=== PATIENT | male | born 1990 | race Caucasian/White ===

== ENCOUNTER 2023-05-14 09:14 | Emergency (ER) | payer OTHER, BC, SELFPAY ==
[2023-05-14 09:18] VITALS: BP 117/72; PULSE 116; RESP 18; TEMP 37.1; O2SAT 99; BMI 25.8
--- NOTE | 2023-05-14 09:27 | US_ITS ---
The [address] [address] Patient Name: WILLOW WILKES MRN: [id number] date: 1990 Sex: M Assigned Patient Location: ED.MAIN Current Patient Location: ER Accession/Order Number: [id number] Exam Date: 05/14/2023 09:40 Report Date: 05/14/2023 10:14 At the request of: GABBY VARMA Procedure: US venous doppler LE RT EXAM: US venous doppler LE RT HISTORY: swelling right lower extremity swelling COMPARISON: None. TECHNIQUE: Doppler color flow as well as spectral analysis were performed of the right lower extremity. FINDINGS: There is adequate flow, compressibility, or augmentation within the visualized deep venous structures of the right lower extremity. No evidence of deep venous thrombus. US/US venous doppler LE RT IMPRESSION: 1. No deep venous thrombus. Electronically authenticated by: YANETH RESTREPO Date: 05/14/2023 10:14
--- NOTE | 2023-05-14 09:28 | ED_ITS ---
HPI - General Adult General Chief complaint: Extremity Injury, Lower Stated complaint: RT LEG SWELLING Time Seen by Provider: 05/14/23 09:27 Source: patient Mode of arrival: walk-in Limitations: no limitations History of Present Illness HPI narrative: Patient is a 32-year-old male who is presenting to the Emergency Room with chief complaint of right leg pain, swelling and chief concern is blood clot. This is a Worker's Comp. case. Patient had injury last Wednesday. Patient was at work, a heavy metal rack has fallen down onto his right leg. Patient has Chip seen Worker's Comp. physician in [place]. Patient was having pain and swelling to the right leg, concerned about blood clots. Patient says that he called the Worker's Comp. office, and the secretary book keeper that he spoke to told him to come to the Emergency Room for evaluation. Patient has no chest breath. Patient has an abrasion to the right anterior sweet and right lateral sweet/lower leg. Patient has no history of deep vein thrombosis. Patient has no recent traveling. No other acute complaints. . All systems are negative except as noted/marked. All systems reviewed and otherwise negative. . Nurses note and vital signs reviewed and patient is not hypoxic. General: The patient appears well and in no apparent distress. Patient is resting comfortably on cart. Patient is not toxic, lethargic, or listless Skin: Warm, dry, no pallor noted. There is no rash noted. No petechiae, purpura. Head: Normocephalic, atraumatic Eye: Normal conjunctiva, no drainage, EOMI. PERRL Ears, Nose, Mouth, and Throat: oral mucosa is moist. Nares patent. . Cardiovascular: Regular Rate and Rhythm, no murmur, gallop, rub Respiratory: Patient is in no distress, no accessory muscle use, lungs are clear to auscultation, no wheezing, rales or rhonchi Musculoskeletal: Patient has full range of motion of all of the extremities Sent to the right leg. Patient has pain to palpation to the posterior right thigh, none to the right popliteal fossa, positive pain to the right posterior calf. Patient has an Erwin wrap to the right calf, he is wearing a postop shoe. Patient has no new injury, he does have pain with range of motion to his right ankle/foot that is ongoing since last Wednesday, no new problems. No deformity, no ecchymosis, mild to moderate tenderness to palpation to bilateral malleoli and the dorsal aspect of the right foot. No signs of compartment syndrome. Otherwise no motor, sensory, or focal neurological deficits Neurological: A&O x3, normal speech Psychiatric: Cooperative Related Data Home Medications Medication Instructions Recorded Confirmed albuterol sulfate 2.5 mg/3 mL mg 05/14/23 (0.083 %) solution for nebulization ibuprofen 800 mg tablet mg 05/14/23 Allergies Allergy/AdvReac Type Severity Reaction Status Date / Time No Known Drug Allergies Allergy Verified 05/14/23 09:18 [facility] Social History Smoking status: Current some day smoker Exam Constitutional Vital Signs, click to edit/add: Last Vital Signs Temp 98.7 F 05/14/23 09:18 Pulse 101 H 05/14/23 10:16 Resp 16 05/14/23 10:16 BP 107/62 05/14/23 10:16 Pulse Ox 99 05/14/23 10:16 Course Vital Signs Vital signs: Vital Signs Temperature 98.7 F 05/14/23 09:18 Pulse Rate 116 H 05/14/23 09:18 Respiratory Rate 18 05/14/23 09:18 Blood Pressure 117/72 05/14/23 09:18 Pulse Oximetry 99 05/14/23 09:18 Temperature 98.7 F 05/14/23 09:18 Pulse Rate 101 H 05/14/23 10:16 Respiratory Rate 16 05/14/23 10:16 Blood Pressure 107/62 05/14/23 10:16 Pulse Oximetry 99 05/14/23 10:16 Medical Decision Making [facility] [place] Narrative Medical decision making narrative: Patient was told to come to the Emergency Room for a ultrasound of his right leg from the Worker's Comp. office. Patient had a ultrasound of the right lower extremity showed no deep vein thrombosis. Patient will continue follow-up with his Worker's Comp. physician. Patient was told to ice, elevate, use Tylenol Motrin as needed for pain. Patient no acute complaints. Patient was also told to use antibiotic ointment to the abrasions to the right leg. Discharge Plan Discharge Chief Complaint: Extremity Injury, Lower Clinical Impression: Localized swelling of right lower leg, Pain in right leg Patient Disposition: Home, Self-Care Condition: Fair Prescriptions / Home Meds: No Action albuterol sulfate 2.5 mg /3 mL (0.083 %) solution for nebulization ibuprofen 800 mg tablet Instructions: Swollen Joint (ED), Edema (ED), Leg Pain (ED) Additional Instructions: Use ice, elevation to the right leg. Use topical antibiotic ointment tear abrasions 3-4 times a day to help promote healing and prevent infection. Follow- up with your Worker's Comp physician. Stand Alone Forms: Portal Instructions Referrals: PLACIDO SMITH [Primary Care Provider] - 1 week
[2023-05-14 10:16] VITALS: BP 107/62; PULSE 101; RESP 16; O2SAT 99
== END 2023-05-14 10:59 | disposition home or self-care (01) ==
PROVIDERS: Emergency Provider Emergency Medicine; PCP Family Medicine
DX: M79.89 Other specified soft tissue disorders (principal); M79.604 Pain in right leg; F17.210 Nicotine dependence, cigarettes, uncomplicated
CPT/HCPCS: 93971; 99284

== ENCOUNTER 2023-08-30 20:40 | Emergency (ER) | payer BC, SELFPAY ==
[2023-08-30 20:57] VITALS: BP 148/90; PULSE 101; RESP 16; TEMP 36.6; O2SAT 100; BMI 30.3
[2023-08-30 21:00] VITALS: O2SAT 97
--- NOTE | 2023-08-30 21:16 | ED.UPPEXIN1 ---
HPI - Extremity Injury (Upper) General Chief Complaint: Extremity Injury, Upper Stated Complaint: Upper Extremity Pain Time Seen by Provider: 08/30/23 20:41 Source: patient Mode of arrival: walk-in Limitations: no limitations History of Present Illness HPI narrative: Patient is a 33-year-old male who presents to the emergency department for the evaluation of pain in the right shoulder. This has been an ongoing issue, he has had outpatient x-rays with his PCP as well as x-rays at the [place] emergency department for the same. He denies any new mechanism of injury or trauma. Pain radiates from the right trapezius muscle into the right shoulder joint and into the right arm. No paresthesias. Pain is worse with movement of the right arm. He has not been using the sling. He states he is taking ibuprofen and Tylenol for pain, his pharmacy records show that he received a prescription for prednisone which was filled today as well as a prescription for Percocet prescribed on 08/25/23 to last three days. Related Data Home Medications Medication Instructions Recorded Confirmed albuterol sulfate 2.5 mg/3 mL mg 05/14/23 (0.083 %) solution for nebulization ibuprofen 800 mg tablet mg 05/14/23 Previous Rx's Medication Instructions Recorded ketorolac 10 mg tablet 10 mg PO TID PRN pain #10 tabs 08/30/23 methocarbamol 750 mg tablet 750 mg PO TID PRN pain #20 tabs 08/30/23 Allergies Allergy/AdvReac Type Severity Reaction Status Date / Time No Known Drug Allergies Allergy Verified 08/30/23 21:02 Review of Systems ROS Constitutional Denies: fever or chills Cardiovascular Denies: chest pain Respiratory Denies: shortness of breath Gastrointestinal Denies: nausea or vomiting Musculoskeletal Reports: extremity pain, joint pain and limited range of motion; Denies: back pain or neck pain Integumentary/Breast Denies: rash Neurological Denies: headache PFSH PFSH Social History Smoking status: Current every day smoker Exam Narrative Exam Narrative: Gen.: Awake, alert, in no distress Head: Normocephalic, atraumatic ENT: Moist mucous membranes Respiratory: No respiratory distress Extremities: Normal biceps tendon strength to flexion and extension in the right arm, 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 Diffuse tenderness of the right trapezius muscle and right glenohumeral joint with no obvious deformity or sulcus sign Psych: Normal mood and affect Neuro: No focal neuro deficit Skin: Warm, dry, intact Constitutional Vital Signs, click to edit/add: Last Vital Signs Temp 98 F 08/30/23 20:57 Pulse 101 H 08/30/23 20:57 Resp 16 08/30/23 20:57 BP 148/90 H 08/30/23 20:57 Pulse Ox 100 08/30/23 20:57 O2 Del Method Room Air 08/30/23 20:57 Course Vital Signs Vital signs: Vital Signs Temperature 98 F 08/30/23 20:57 Pulse Rate 101 H 08/30/23 20:57 Respiratory Rate 16 08/30/23 20:57 Blood Pressure 148/90 H 08/30/23 20:57 Pulse Oximetry 100 08/30/23 20:57 Oxygen Delivery Method Room Air 08/30/23 20:57 Temperature 98 F 08/30/23 20:57 Pulse Rate 101 H 08/30/23 20:57 Respiratory Rate 16 08/30/23 20:57 Blood Pressure 148/90 H 08/30/23 20:57 Pulse Oximetry 100 08/30/23 20:57 Oxygen Delivery Method Room Air 08/30/23 20:57 MDM - Extremity Injury (Upper) MDM Narrative Medical decision making narrative: No indication for repeat x-rays as the patient has had two previous sets of x-rays of the right shoulder, no new mechanism of injury or trauma. He has an appointment in ten days with orthopedics. His pharmacy records show that he filled a prescription of Percocet from the [place] emergency department on 08/25/23, he filled a prescription of prednisone today. Pain is consistent with muscular pain in the right shoulder, he'll be started on Toradol and Robaxin. He is treated for pain in the Emergency Room with Solu-Medrol, Norflex, [place]. No indication to continue refill narcotics from the emergency department, he can see the specialist in ten days for further evaluation and treatment. Neurovascularly intact pre-and post-sling application. Rest, ice, gentle stretching. Return to the Emergency Room if symptoms change or worsen. Medical Records Attestation: I reviewed the patient's medical records. Discharge Plan Discharge Chief Complaint: Extremity Injury, Upper Clinical Impression: Pain in right shoulder Patient Disposition: Home, Self-Care Time of Disposition Decision: 21:07 Condition: Good Prescriptions / Home Meds: New ketorolac 10 mg tablet 10 mg PO TID PRN (Reason: pain) Qty: 10 0RF Rx Instructions: DO NOT TAKE WITH IBUPROFEN methocarbamol 750 mg tablet 750 mg PO TID PRN (Reason: pain) Qty: 20 0RF No Action albuterol sulfate 2.5 mg /3 mL (0.083 %) solution for nebulization ibuprofen 800 mg tablet Instructions: Shoulder Pain (ED) Stand Alone Forms: Portal Instructions Referrals: PLACIDO SMITH [Primary Care Provider] - 1 week Jose Antonio Gilliam DO [Physician] - 1 week
[2023-08-30] MEDS: ORPHENADRINE 60 MG/ 2 ML VIAL IM (21:26)
[2023-08-30] MEDS: METHYLPREDNISOLONE SOD SUCC PF 125 MG/2 ML VIAL IM (21:26)
[2023-08-30] MEDS: HYDROCODONE/ACET 5-325 MG TABLET 1 TAB PO (21:26)
== END 2023-08-30 21:40 | disposition home or self-care (01) ==
PROVIDERS: Emergency Provider Emergency Medicine; PCP Family Medicine
DX: M25.511 Pain in right shoulder (principal); F17.210 Nicotine dependence, cigarettes, uncomplicated; Z79.899 Other long term (current) drug therapy
CPT/HCPCS: 96372; 99284; J2930

== ENCOUNTER 2023-10-02 17:55 | Emergency (ER) | payer BC, SELFPAY ==
[2023-10-02 17:59] VITALS: BP 132/84; PULSE 94; RESP 18; TEMP 36.9; O2SAT 99; BMI 32.5
--- OUTSIDE RECORDS SUMMARY | 2023-10-02 18:02 | XMS_ITS | CCD ---
Author Name Unknown Address [address] [place] [address] Organization [facility] Care Team Providers Care Master Cook Name Role Phone Myra [phone] UNKNOWN Unavailable Unavailable Patten, Jose M R. Unavailable Unavailable Lety, Mohamad Unavailable Unavailable Ojukwu, Mbanefo Unavailable Unavailable Patten, Jose M R. Unavailable Unavailable Patten, Jose M R. Unavailable Unavailable Patten, Jose M R. Unavailable Unavailable Patten, Jose M R. Unavailable Unavailable Patten, Jose M R. Unavailable Unavailable Patten, Jose M R. Unavailable Unavailable Patten, Jose M R. Unavailable Unavailable Patten, Jose M R. Unavailable Unavailable Patten, Jose M R. Unavailable Unavailable Patten, Jose M R. Unavailable Unavailable Blank, Julian S Unavailable Unavailable Blank, Julian S Unavailable Unavailable Blank, Julian S Unavailable Unavailable Blank, Julian S Unavailable Unavailable Blank, Julian S Unavailable Unavailable Blank, Julian S Unavailable Unavailable Blank, Julian S Unavailable Unavailable Blank, Julian S Unavailable Unavailable Blank, Julian S Unavailable Unavailable Blank, Julian S Unavailable Unavailable Hatteras, Sammie A. Unavailable Unavailable Char, Sammie A. Unavailable Unavailable Shipman, Octavio Unavailable Unavailable Hatteras, Sammie A. Unavailable Unavailable Hatteras, Sammie A. Unavailable Unavailable Shipman, Octavio Unavailable Unavailable Provider, None Unavailable Unavailable Stalter, Vargas Unavailable Unavailable Stalter, Vargas Unavailable Unavailable Stalter, Vargas Unavailable Unavailable Stalter, Vargas Unavailable Unavailable Provider, None Unavailable Unavailable Provider, None Unavailable Unavailable [place], Neeraj R. Unavailable Unavailable Mei, Neeraj R. Unavailable Unavailable Provider, None Unavailable Unavailable Mei, Neeraj R. Unavailable Unavailable Mei, Neeraj R. Unavailable Unavailable EBRAHEIM, OVI Unavailable Unavailable EBRAHEIM, OVI Unavailable Unavailable SELF, REFERRED Unavailable Unavailable SELF, REFERRED Unavailable Unavailable NM Unavailable Unavailable EBRAHEIM, OVI Unavailable Unavailable NM Unavailable Unavailable FIDENCIO RAY Unavailable Unavailable RADHA, LITTLE Admitting Unavailable RADHA, LITTLE Attending Unavailable [facility] [place] [facility] Unavailable LITTLE GARCIA Consulting Unavailable JOANNA HEBERT Consulting Unavailkevin NUNN, LISA Consulting Unavailable JUSTIN ALEMAN Consulting Unavailable [place] [place] [facility] Unavailable JENNIFER ISAAC Admitting Unavailable PONCHO, JENNIFER Coffey Attending Unavailable JENNIFER ISAAC Consulting Unavailable KELLY THOMAS Consulting Unavailable DEFRANCE, PLACIDO Admitting Unavailable DEFRANCE, PLACIDO Attending Unavailable [place] [place] Primary Care Unavailable [place], PLACIDO Consulting Unavailable Problems Active Problems Problem Classification Problem Date Documented Da te Episodic/Chronic Abdominal pain (4 sources) Upper abdominal pain, unspecified; Translations: [UPPER ABDOMINAL PAIN, UNSPECIFIED] Onset: 03-24-2020 Episodic Alcohol-related disorders (1 source) Alcohol abuse, uncomplicated; Translations: [ALCOHOL ABUSE UNCOMPLICATED] Onset: 04-09-2020 Chronic Anxiety disorders (1 source) Anxiety disorder, unspecified; Translations: [ANXIETY DISORDER UNSPECIFIED] Onset: 04-09-2020 Chronic Asthma (1 source) Unspecified asthma, uncomplicated; Translations: [UNSPECIFIED ASTHMA, UNCOMPLICATED] Onset: 04-09-2017 Chronic Epilepsy; convulsions (1 source) Other seizures; Translations: [OTHER SEIZURES] Onset: 04-09-2020 Chronic Essential hypertension (1 source) Essential (primary) hypertension; Translations: [ESSENTIAL (PRIMARY) HYPERTENSION] Onset: 04-09-2017 Chronic External cause codes: Fall (1 source) Fall on same level from slipping, tripping and stumbling with subsequent striking against other object, initial encounter; Translations: [FALL SAME LVL SLIP STRK OTH OBJ INT] Onset: 04-09-2020 Immunizations and screening for infectious disease (4 sources) Encounter for screening for other viral diseases; Translations: [ENC SCREENING FOR OTH VIRAL DZ] Onset: 05-27-2020 Episodic Nausea and vomiting (1 source) Nausea; Translations: [NAUSEA] Onset: 03-26-2020 Episodic Nonspecific chest pain (3 sources) Chest pain, unspecified; Translations: [CHEST PAIN UNSPECIFIED] Onset: 04-05-2020 Episodic Substance-related disorders (2 sources) Nicotine dependence, cigarettes, uncomplicated; Translations: [NICOTINE DEPENDENCE, CIGARETTES, UNCOMPLICATED] Onset: 04-09-2017 Chronic Superficial injury; contusion (1 source) Contusion of left front wall of thorax, initial encounter; Translations: [CONTUS LT FRONT WALL THORAX INITIAL] Onset: 04-09-2020 Episodic Unclassified (2 sources) Unknown / UNK(Unknown) Onset: 04-09-2017 Past or Other Problems Problem Classification Problem Date Documented Da te Episodic/Chronic Open wounds of extremities (4 sources) Unspecified open wound of left hand, initial encounter; Translations: [UNSPECIFIED OPEN WOUND OF LEFT HAND, INITIAL ENCOUNTER] Onset: 04-09-2017 Episodic Results Test Name Value Interpretation Reference Range Facility COVID-19 PCRon 05-28-2020 SARS-CoV-2, TARIQ Not Detected Normal Not Detected [facility] Comment on above: Result Comment: This test was developed and its performance characteristics determined by [facility]. This test has not been FDA cleared or approved. This test has been authorized by FDA under an Emergency Use Authorization (EUA). This test is only authorized for the duration of time the declaration that circumstances exist justifying the authorization of the emergency use of in vitro diagnostic tests for detection of SARS-CoV-2 virus and/or diagnosis of COVID-19 infection under section 564(b)(1) of the Act, 21 U.S.C. 360bbb-3(b)(1), unless the authorization is terminated or revoked sooner. When diagnostic testing is negative, the possibility of a false negative result should be considered in the context of a patient's recent exposures and the presence of clinical signs and symptoms consistent with COVID-19. An individual without symptoms of COVID-19 and who is not shedding SARS-CoV-2 virus would expect to have a negative (not detected) result in this assay. Performed By: #### L ACT #### [facility] [address] [id number] Mary Aly AMMONIAon 04-05-2020 Ammonia (P) [Mass/Vol] 26 umol/L Normal 10-30 [facility] Comment on above: Performed By: #### A MM #### [facility] [address] [id number] Mary Aly CARDIAC JENNIFER ADMITon 020 CK [Catalytic activity/Vol] 229 U/L Critically high 55-170 [facility] Comment on above: Result Comment: test repeated critical value verified Performed By: #### L ACT #### [facility] [address] [place] [address] Mary Sheeba CK.MB [Mass/Vol] 1.95 ng/mL Normal <=2.37 [facility] Comment on above: Performed By: #### L ACT #### [facility] [address] [place] [address] Mary Sheeba INR Coag (Bld) [Relative time] SEE BELOW Normal [facility] Comment on above: Result Comment: <0.0 34 ng/ml NEGATIVE 0.034-0.119 INDETERMINATE 0.120 AMI CUT OFF Performed By: #### L ACT #### [facility] [address] [place] [address] Mary Sheeba PAIGE 88.0 ng/mL Normal <=121.0 [facility] Comment on above: Performed By: #### L ACT #### [facility] [address] [place] [address] Mary Sheeba TROP <0.012 Normal <=0.034 [facility] Comment on above: Performed By: #### L ACT #### [facility] [address] [place] [address] Mary Sheeba CBC AUTO DIFFon 04-05-2020 Basophils (Bld) [#/Vol] 0.1 103/ul Normal 0.0-0.1 [facility] Comment on above: Performed By: #### C BC #### [facility] [address] [place] [address] Mary Sheeba Basophils/100 WBC (Bld) 1.1 % Normal 0.2-2.0 [facility] Comment on above: Performed By: #### C BC #### [facility] [address] [place] [address] Mary Sheeba Eosinophils (Bld) [#/Vol] 0.8 103/ul Critically high 0.0-0.7 [facility] Comment on above: Performed By: #### C BC #### [facility] [address] [place] [address] Mary Sheeba Eosinophils/100 WBC (Bld) 6.1 % Normal 0.9-7.0 [facility] Comment on above: Performed By: #### C BC #### [facility] [address] [place] [address] Maryjong Aly Erythrocyte distribution width (RBC) [Ratio] 12.6 % Normal 11.0-15.0 [facility] Comment on above: Performed By: #### C BC #### [facility] [address] [place] [address] Mary Sheeba Hematocrit (Bld) [Volume fraction] 45.1 % Normal 42.0-54.0 [facility] Comment on above: Performed By: #### C BC #### [facility] [address] [place] [address] Mary Sheeba Hemoglobin (Bld) [Mass/Vol] 15.6 g/dL Normal 14.0-18.0 [facility] Comment on above: Performed By: #### C BC #### [facility] [address] [place] [address] Mary Sheeba IG # 0.07 10e3/ul Critically high 0.00-0.03 [facility] Comment on above: Performed By: #### C BC #### [facility] [address] [place] [address] Mary Sheeba IG % 0.6 % Critically high 0.0-0.5 [facility] Comment on above: Performed By: #### C BC #### [facility] [address] [place] [address] Mary Sheeba Lymphocytes (Bld) [#/Vol] 4.7 103/ul Critically high 1.2-3.8 [facility] Comment on above: Performed By: #### C BC #### [facility] [address] [place] [address] Mary Sheeba Lymphocytes/100 WBC (Bld) 38.2 % Normal 20.5-60.0 [facility] Comment on above: Performed By: #### C BC #### [facility] [address] [place] [address] Mary Varelaen MANUAL DIFF REQ NO Normal [facility] Comment on above: Performed By: #### C BC #### [facility] [address] [place], [place] [id number] Mary Aly MCH (RBC) [Entitic mass] 31.8 pg Normal 25.9-34.0 [facility] Comment on above: Performed By: #### C BC #### [facility] [address] [place], [place] [id number] Mary Aly MCHC (RBC) [Mass/Vol] 34.6 g/dL Normal 29.9-35.2 [facility] Comment on above: Performed By: #### C BC #### [facility] [address] [place] [address] Mary Aly MCV (RBC) [Entitic vol] 92.0 fL Normal 80.0-94.0 [facility] Comment on above: Performed By: #### C BC #### [facility] [address] [place] [address] Mary Sheeba Monocytes (Bld) [#/Vol] 0.8 103/ul Normal 0.3-0.8 [facility] Comment on above: Performed By: #### C BC #### [facility] [address] [place], [place] [id number] Mary Aly Monocytes/100 WBC (Bld) 6.8 % Normal 1.7-12.0 [facility] Comment on above: Performed By: #### C BC #### [facility] [address] [place], [place] [id number] Mary Sheeba Neutrophils (Bld) [#/Vol] 5.8 103/ul Normal 1.4-6.5 [facility] Comment on above: Performed By: #### C BC #### [facility] [address] [place] [address] Mary Sheeba Neutrophils/100 WBC (Bld) 47.2 % Normal 43.0-75.0 [facility] Comment on above: Performed By: #### C BC #### [facility] [address] [place], [place] [id number] Mary Sheeba Platelet mean volume (Bld) [Entitic vol] 9.9 fL Normal 9.5-13.5 [facility] Comment on above: Performed By: #### C BC #### [facility] [address] [place] [address] Mary Aly Platelets (Bld) [#/Vol] 293 103/ul Normal 150-450 [facility] Comment on above: Performed By: #### C BC #### [facility] [address] [place] [address] Mary Aly RBC (Bld) [#/Vol] 4.90 106/ul Normal 4.70-6.10 [facility] Comment on above: Performed By: #### C BC #### [facility] [address] [place] [address] Mary Aly WBC (Bld) [#/Vol] 12.3 103/ul Critically high 4.0-11.0 [facility] Comment on above: Performed By: #### C BC #### [facility] [address] [place] [address] Mary Aly D-DIMERon 04-05-2020 D-DIMER COMMENTS SEE BELOW Normal [facility] Comment on above: Result Comment: Incr eases in D-Dimer concentration observed with thromboembolic events can be variable due to localization, size, and age of the thrombus. Therefore, a thromboembolic event cannot be diagnosed with certainty on the basis of the reference range. D-Dimers may also be elevated for a variety of disorders including: advanced age, , coronary disease, cancer, liver disease, infection, inflammation, hematoma, DIC, trauma, post-surgery, diabetes, thrombolytic or anticoagulant therapy, stress, and generalizd hospitalization. Performed By: #### L ACT #### [facility] [address] [place], [place] [id number] Mary Aly Fibrin D-dimer FEU IA (Bld) [Mass/Vol] 0.29 ug/mL Normal 0.19-0.50 [facility] Comment on above: Performed By: #### L ACT #### [facility] [address] [place], [place] [id number] Mary Sheeba DRUG SCREEN RAPID (URINE)on 04-05-2020 AMP Negative Normal NEGATIVE [facility] Comment on above: Performed By: #### L ACT #### [facility] [address] [place] [address] Mary Sheeba BAR Negative Normal NEGATIVE [facility] Comment on above: Performed By: #### L ACT #### [facility] [address] [place] [address] Mary Sheeba BUP Negative Normal NEGATIVE [facility] Comment on above: Performed By: #### L ACT #### [facility] [address] [place] [address] [facility] B[facility] Negative Normal NEGATIVE [facility] Comment on above: Performed By: #### L ACT #### [facility] [address] [place] [address] [facility] Negative Normal NEGATIVE [facility] Comment on above: Performed By: #### L ACT #### [facility] [address] [place] [address] CUT-OFFS SEE BELOW Normal [facility] Comment on above: Result Comment: AMP (Amphetamine): 500ng/mL, BAR (Barbituates): 200 ng/mL, BZO (Benzodiazepines): 150 ng/mL, BUP (Buprenorphine): 10 ng/mL, ADAMARIS (Cocaine): 150 ng/mL, mAMP (Methamphetamine): 500 ng/mL, MTD (Methadone): 200 ng/mL, OPI (Opiates): 100 ng/mL or 2000 ng/mL, OXY (Oxycodone): 100 ng/mL, PCP (Phencyclidine): 25 ng/mL, PPX (Propoxyphene): 300 ng/mL, THC (Cannabinoids): 50 ng/mL, TCA (Trycyclic Antidepressants): 300 ng/mL Performed By: #### L ACT #### [facility] [address] [place] [address] DRUG CUT HEADER DRUG CLASS TEST SYST EM CUT-OFF CONCENTRATIONS ARE FOLLOWS: Normal [facility] Comment on above: Performed By: #### L ACT #### [facility] [address] [place] [address] mAMP Negative Normal NEGATIVE [facility] Comment on above: Performed By: #### L ACT #### [facility] [address] [place] [address] Mary Sheeba MTD Negative Normal NEGATIVE [facility] Comment on above: Performed By: #### L ACT #### [facility] [address] [place] [address] Mary Sheeba OPI Negative Normal NEGATIVE [facility] Comment on above: Performed By: #### L ACT #### [facility] [address] [place] [address] Mary Sheeba OXY Negative Normal NEGATIVE [facility] Comment on above: Performed By: #### L ACT #### [facility] [address] [place] [address] Mary Sheeba PCP Negative Normal NEGATIVE [facility] Comment on above: Performed By: #### L ACT #### [facility] [address] [place] [address] Mary Sheeba PPX Negative Normal NEGATIVE [facility] Comment on above: Performed By: #### L ACT #### [facility] [address] [place] [address] Mary Sheeba TCA Negative Normal NEGATIVE [facility] Comment on above: Performed By: #### L ACT #### [facility] [address] [place] [address] Mary Sheeba THC Negative Normal NEGATIVE [facility] Comment on above: Performed By: #### L ACT #### [facility] [address] [place] [address] Mary Sheeba ETHANOL (BLD ALC)on 04-05-20 20 Ethanol [Mass/Vol] NOTE: 80 mg/dl is th e legal limit for a blood alcohol level Normal [facility] Comment on above: Performed By: #### E TH #### [facility] [address] [place] [address] Mary Sheeba Ethanol [Mass/Vol] 242 mg/dL Normal [facility] Comment on above: Performed By: #### E TH #### [facility] [address] [place] [address] Mary Sheeba PROF 14(COMP METB)on 020 Albumin [Mass/Vol] 4.0 g/dL Normal 3.5-5.0 [facility] Comment on above: Performed By: #### L ACT #### [facility] [address] [place], [place] [id number] Mary Sheeba Albumin/Globulin [Mass ratio] 1.1 {ratio} Normal [facility] Comment on above: Performed By: #### L ACT #### [facility] [address] [place] [address] Mary Sheeba ALP [Catalytic activity/Vol] 74 U/L Normal 38-126 [facility] Comment on above: Performed By: #### L ACT #### [facility] [address] [place] [address] Mary Sheeba ALT [Catalytic activity/Vol] 37 U/L Normal 21-72 [facility] Comment on above: Performed By: #### L ACT #### [facility] [address] [place] [address] Mary Sheeba Anion gap [Moles/Vol] 19.2 mmol/L Normal [facility] Comment on above: Performed By: #### L ACT #### [facility] [address] [place] [address] Mary Sheeba AST [Catalytic activity/Vol] 31 U/L Normal 17-59 [facility] Comment on above: Performed By: #### L ACT #### [facility] [address] [place], [place] [id number] Mary Sheeba Bilirubin Ql (U) 0.3 mg/dL Normal 0.2-1.3 [facility] Comment on above: Performed By: #### L ACT #### [facility] [address] [place], [place] [id number] Mary Sheeba Calcium [Mass/Vol] 8.6 mg/dL Normal 8.4-10.2 [facility] Comment on above: Performed By: #### L ACT #### [facility] [address] [place], [place] [id number] Mary Sheeba Chloride [Moles/Vol] 105 mmol/L Normal 98-107 [facility] Comment on above: Performed By: #### L ACT #### [facility] [address] [id number] Mary Sheeba CO2 [Moles/Vol] 22.5 mmol/L Normal 22.0-30.0 [facility] Comment on above: Performed By: #### L ACT #### [facility] [address] [id number] Mary Sheeba Creatinine [Mass/Vol] 0.79 mg/dL Normal 0.66-1.25 [facility] Comment on above: Performed By: #### L ACT #### [facility] [address] [place], [place] [id number] Mary Sheeba EGFR-AF NEW ZEALANDER >60 Normal >=60 [facility] Comment on above: Performed By: #### L ACT #### [facility] [address] [place] [address] Mary Sheeba EGFR-NON AF NEW ZEALANDER >60 Normal >=60 [facility] Comment on above: Performed By: #### L ACT #### [facility] [address] [place] [address] Mary Sheeba Globulin (S) [Mass/Vol] 3.8 g/dL Normal [facility] Comment on above: Performed By: #### L ACT #### [facility] [address] [place] [address] Mary Sheeba Glucose [Mass/Vol] 103 mg/dL Normal 74-106 [facility] Comment on above: Performed By: #### L ACT #### [facility] [address] [place] [address] Mary Sheeba Potassium [Moles/Vol] 3.7 mmol/L Normal 3.4-5.0 [facility] Comment on above: Result Comment: slig htly hemolyzed Performed By: #### L ACT #### [facility] [address] [place], [place] [id number] Mary Sheeba Protein [Mass/Vol] 7.8 g/dL Normal 6.1-8.2 [facility] Comment on above: Performed By: #### L ACT #### [facility] [address] [place], [place] [address] Mary Sheeba Sodium [Moles/Vol] 143 mmol/L Normal 137-145 [facility] Comment on above: Performed By: #### L ACT #### [facility] [address] [place], [place] [address] Mary Sheeba Urea nitrogen [Mass/Vol] 6.0 mg/dL Critically low 9.0-20.0 [facility] Comment on above: Performed By: #### L ACT #### [facility] [address] [place], [place] [address] Mary Sheeba Urea nitrogen/Creatinin e [Mass ratio] 7.6 mg/mg Normal [facility] Comment on above: Performed By: #### L ACT #### [facility] [address] [place], [place] [address] Mary Sheeba XR CHEST 1 Von 04-05-2020 XR CHEST 1 V EXAM: XR CHEST 1 V HISTORY: SHORTNESS OF BREATH COMPARISON: Chest x-ray of 03/24/2020. TECHNIQUE: Single AP upright view of the chest is submitted for review. FINDINGS: The heart size is normal. Lungs are clear. No focal consolidation, pneumothorax or pleural effusion is seen. The visualized osseous structures appear unremarkable. IMPRESSION: No radiographic evidence for acute cardiopulmonary disease. Electronically authenticated by: KELLY THOMAS Date: 2020-04-05 21:34 Normal [facility] CT ABD/PELV W CONon 03-25-[address] ABD/PELV W CON CT ABDOMEN AND PELVI S WITH CONTRAST: INDICATION: UNSPECIFIED ABDOMINAL PAIN. COMPARISON: CT abdomen and pelvis 06/04/2015. TECHNIQUE: Helical CT images of the abdomen and pelvis were obtained after the administration of 100 mL Omnipaque 300. Dose reduction techniques were achieved by using automated exposure control and/or adjustment of mA and/or kV according to patient size and/or use of iterative reconstruction technique. FINDINGS: LOWER CHEST: Normal. LIVER: Normal in size and attenuation. No focal lesions. GALLBLADDER AND BILIARY SYSTEM: Normal. SPLEEN: Normal. PANCREAS: Normal. ADRENAL GLANDS: Normal. KIDNEYS AND URETERS: Normal. VASCULATURE: Normal. RETROPERITONEUM AND LYMPH NODES: Normal, with no lymphadenopathy. GASTROINTESTINAL TRACT/MESENTERY: Normal appearance of the stomach, small and large bowel. Normal mesentery/peritoneum.. Normal appendix. BLADDER: Normal. REPRODUCTIVE SYSTEM: Normal prostate.. BODY WALL: Small fat-containing umbilical hernia which is not clearly visualized previously. BONES: 17 mm sclerotic lesion in the left iliac bone which is stable and consistent with a benign bone island. IMPRESSION: 1. No acute process in the abdomen or pelvis. 2. Small fat-containing umbilical hernia. 3. Normal appendix. Electronically authenticated by: JUSTIN ALEMAN Date: 2020-03-24 23:05 Normal [facility] AMYLASEon 03-24-2020 Amylase [Catalytic activity/Vol] 37 U/L Normal 31-110 [facility] Comment on above: Performed By: #### C DARIAN MENDOZA LIPA #### [facility] [address] [place] [address] Mary Sheeba CBC AUTO DIFFon 03-24-2020 Basophils (Bld) [#/Vol] 0.1 103/ul Normal 0.0-0.1 [facility] Comment on above: Performed By: #### C BC #### [facility] [address] [place] [address] Mary Sheeba Basophils/100 WBC (Bld) 0.6 % Normal 0.2-2.0 [facility] Comment on above: Performed By: #### C BC #### [facility] [address] [place] [address] Mary Sheeba Eosinophils (Bld) [#/Vol] 0.4 103/ul Normal 0.0-0.7 [facility] Comment on above: Performed By: #### C BC #### [facility] [address] [place] [id number] Mary Sheeba Eosinophils/100 WBC (Bld) 3.1 % Normal 0.9-7.0 [facility] Comment on above: Performed By: #### C BC #### [facility] [address] [place] [address] 24694 Mary Sheeba Erythrocyte distribution width (RBC) [Ratio] 12.7 % Normal 11.0-15.0 [facility] Comment on above: Performed By: #### C BC #### [facility] [address] [id number] Mary Sheeba Hematocrit (Bld) [Volume fraction] 47.5 % Normal 42.0-54.0 [facility] Comment on above: Performed By: #### C BC #### [facility] [address] [place], [place] [id number] Mary Sheeba Hemoglobin (Bld) [Mass/Vol] 16.2 g/dL Normal 14.0-18.0 [facility] Comment on above: Performed By: #### C BC #### [facility] [address] [place], [place] [id number] Mary Sheeba IG # 0.06 10e3/ul Critically high 0.00-0.03 [facility] Comment on above: Performed By: #### C BC #### [facility] [address] [place] [address] Mary Sheeba IG % 0.5 % Normal 0.0-0.5 [facility] Comment on above: Performed By: #### C BC #### [facility] [address] [place], [place] [id number] Mary Sheeba Lymphocytes (Bld) [#/Vol] 2.2 103/ul Normal 1.2-3.8 [facility] Comment on above: Performed By: #### C BC #### [facility] [address] [place], [place] [id number] Mary Sheeba Lymphocytes/100 WBC (Bld) 17.1 % Critically low 20.5-60.0 [facility] Comment on above: Performed By: #### C BC #### [facility] [address] [place], [place] [id number] Mary Varelaen MANUAL DIFF REQ NO Normal [facility] Comment on above: Performed By: #### C BC #### [facility] [address] [place], [place] [id number] Mary Sheeba MCH (RBC) [Entitic mass] 31.9 pg Normal 25.9-34.0 [facility] Comment on above: Performed By: #### C BC #### [facility] [address] [place], [place] [id number] Mary Sheeba MCHC (RBC) [Mass/Vol] 34.1 g/dL Normal 29.9-35.2 [facility] Comment on above: Performed By: #### C BC #### [facility] [address] [place], [place] [address] Mary Aly MCV (RBC) [Entitic vol] 93.5 fL Normal 80.0-94.0 [facility] Comment on above: Performed By: #### C BC #### [facility] [address] [place], [place] [address] Mary Sheeba Monocytes (Bld) [#/Vol] 0.9 103/ul Critically high 0.3-0.8 [facility] Comment on above: Performed By: #### C BC #### [facility] [address] [place] [address] Mary Sheeba Monocytes/100 WBC (Bld) 6.5 % Normal 1.7-12.0 [facility] Comment on above: Performed By: #### C BC #### [facility] [address] [place], [place] [id number] Mary Sheeba Neutrophils (Bld) [#/Vol] 9.5 103/ul Critically high 1.4-6.5 [facility] Comment on above: Performed By: #### C BC #### [facility] [address] [place] [address] Mary Sheeba Neutrophils/100 WBC (Bld) 72.2 % Normal 43.0-75.0 [facility] Comment on above: Performed By: #### C BC #### [facility] [address] [place] [address] Mary Sheeba Platelet mean volume (Bld) [Entitic vol] 10.5 fL Normal 9.5-13.5 [facility] Comment on above: Performed By: #### C BC #### [facility] [address] [place] [address] Mary Sheeba Platelets (Bld) [#/Vol] 271 103/ul Normal 150-450 [facility] Comment on above: Performed By: #### C BC #### [facility] [address] [place] [address] Mary Aly RBC (Bld) [#/Vol] 5.08 106/ul Normal 4.70-6.10 [facility] Comment on above: Performed By: #### C BC #### [facility] [address] [place] [address] Maryjong Aly WBC (Bld) [#/Vol] 13.1 103/ul Critically high 4.0-11.0 [facility] Comment on above: Performed By: #### C BC #### [facility] [address] [place] [address] Maryjong Aly LACTATE/LACTIC ACIDon 2019 Lactate [Moles/Vol] 0.8 mmol/L Normal 0.7-2.0 [facility] Comment on above: Performed By: #### L ACT #### [facility] [address] [place] [address] Mary Aly LIPASEon 03-24-2020 Lipase [Catalytic activity/Vol] 123.0 U/L Normal 23.0-300.0 [facility] Comment on above: Performed By: #### C REJI DARIAN, LIPA #### [facility] [address] [place] [address] Mary Sheeba PROF 14(COMP METB)on 020 Albumin [Mass/Vol] 4.5 g/dL Normal 3.5-5.0 [facility] Comment on above: Performed By: #### C MP DARIAN, LIPA #### [facility] [address] [place] [address] Maryjong Aly Albumin/Globulin [Mass ratio] 1.2 {ratio} Normal [facility] Comment on above: Performed By: #### C MP DARIAN, LIPA #### [facility] [address] [place] [address] Mary Sheeba ALP [Catalytic activity/Vol] 69 U/L Normal 38-126 [facility] Comment on above: Performed By: #### C MP, DARIAN, LIPA #### [facility] [address] [place], [place] [address] Mary Sheeba ALT [Catalytic activity/Vol] 27 U/L Normal 21-72 [facility] Comment on above: Performed By: #### C DARIAN MENDOZA LIPA #### [facility] [address] [place] [address] Mary Sheeba Anion gap [Moles/Vol] 13.0 mmol/L Normal [facility] Comment on above: Performed By: #### C DARIAN MENDOZA LIPA #### [facility] [address] [place] [address] Mary Sheeba AST [Catalytic activity/Vol] 19 U/L Normal 17-59 [facility] Comment on above: Performed By: #### C DARIAN MENDOZA LIPA #### [facility] [address] [place] [address] Mary Sheeba Bilirubin Ql (U) 0.4 mg/dL Normal 0.2-1.3 [facility] Comment on above: Performed By: #### C DARIAN MENDOZA LIPA #### [facility] [address] [place] [address] Mary Sheeba Calcium [Mass/Vol] 10.0 mg/dL Normal 8.4-10.2 [facility] Comment on above: Performed By: #### C DARIAN MENDOZA LIPA #### [facility] [address] [place] [address] Mary Sheeba Chloride [Moles/Vol] 100 mmol/L Normal 98-107 [facility] Comment on above: Performed By: #### C DARIAN MENDOZA LIPA #### [facility] [address] [place] [address] Mary Sheeba CO2 [Moles/Vol] 27.7 mmol/L Normal 22.0-30.0 [facility] Comment on above: Performed By: #### C DARIAN MENDOZA LIPA #### [facility] [address] [place] [address] Mary Sheeba Creatinine [Mass/Vol] 0.70 mg/dL Normal 0.66-1.25 [facility] Comment on above: Performed By: #### C DARIAN MENDOZA LIPA #### [facility] [address] [address] Mary Sheeba EGFR-AF NEW ZEALANDER >60 Normal >=60 [facility] Comment on above: Performed By: #### C DARIAN MENDOZA LIPA #### [facility] [address] [address] Mary Sheeba EGFR-NON AF NEW ZEALANDER >60 Normal >=60 [facility] Comment on above: Performed By: #### C DARIAN MENDOZA LIPA #### [facility] [address] [address] Mary Sheeba Globulin (S) [Mass/Vol] 3.8 g/dL Normal [facility] Comment on above: Performed By: #### C DARIAN MENDOZA LIPA #### [facility] [address] [place] [address] Mary Sheeba Glucose [Mass/Vol] 103 mg/dL Normal 74-106 [facility] Comment on above: Performed By: #### C DARIAN MENDOZA LIPA #### [facility] [address] [place] [address] Mary Sheeba Potassium [Moles/Vol] 3.7 mmol/L Normal 3.4-5.0 [facility] Comment on above: Performed By: #### C DARIAN MENDOZA LIPA #### [facility] [address] [place] [address] Mary Sheeba Protein [Mass/Vol] 8.3 g/dL Critically high 6.1-8.2 [facility] Comment on above: Performed By: #### C DARIAN MENDOZA LIPA #### [facility] [address] [place] [address] Mary Sheeba Sodium [Moles/Vol] 137 mmol/L Normal 137-145 [facility] Comment on above: Performed By: #### C DARIAN MENDOZA LIPA #### [facility] [address] [place] [address] Mary Sheeba Urea nitrogen [Mass/Vol] 13.0 mg/dL Normal 9.0-20.0 [facility] Comment on above: Performed By: #### C DARIAN MENDOZA LIPA #### [facility] [address] [place], [place] [address] Mary Aly Urea nitrogen/Creatinin e [Mass ratio] 18.6 mg/mg Normal [facility] Comment on above: Performed By: #### C DARIAN MENDOZA LIPA #### [facility] [address] [place], [place] [address] Mary Aly XR ABD FLAT UP_PA Abiola 03-24 XR ABD FLAT UP_PA CH EXAM: XR ABD FLAT UP_PA CH COMPARISON: 12/13/2015 chest x-ray, 06/04/2015 CT abdomen pelvis CLINICAL INDICATION: Upper abdominal pain. FINDINGS: The cardiomediastinal silhouette is within normal limits. No focal consolidation. No pleural effusion. No pneumothorax. No dilated air-filled loops of bowel to suggest obstruction. No free air under the diaphragm, although it is not entirely clear which of these images were obtained in the upright position due to a lack of labeling by technologist. No obvious intra-abdominal free air otherwise. On the third view of the series, suspected to be an upright view, there appear to be some air-fluid levels in loops of bowel in the left abdomen, a nonspecific finding. No definite focal pathologic calcifications. No acute osseous abnormality. IMPRESSION: 1. No acute cardiopulmonary abnormality. 2. Nipple shadows are noted. 3. No definite free air or definite evidence of obstruction. 4. There appear to be some air-fluid levels in loops of bowel in the left abdomen on what is suspected to be an upright view, this is a nonspecific finding. Could be further evaluated on scheduled CT abdomen pelvis later today. Electronically authenticated by: LISA NUNN Date: 2020-03-24 21:01 Normal [facility] Coding Summary.on 11-12-2017 Coding Summary. CODING DATE: 018 FINAL [facility] STATUS: Home (Routine DC) PAYOR: Medicaid EAPG DESCRIPTION 0852 OTHER COMPLICATIONS OF TREATMENT ADMIT DX: REASON FOR VISIT DX: T81.89XA Other complications of procedures, not elsewhere classified, initial encounter FINAL DX: PRINCIPAL: T81.89XA Other complications of procedures, not elsewhere classified, initial encounter SECONDARY: F17.210 Nicotine dependence, cigarettes, uncomplicated PYMT PROC EAPG STAT DESCRIPTION DOCTOR NAME DATE NOTE: The code number assigned matches the documented diagnosis and / or procedure in the patient's chart. However, the narrative phrase printed from the coding software may appear abbreviated, or result in slightly different terminology. Coded By: Elizabeth Blanc Date Saved: 11/12/2017 08:29 am Normal [facility] Coding Summary.on 10-29-2017 Coding Summary. CODING DATE: [facility] STATUS: Home (Routine DC) PAYOR: Medicaid ADMIT DX: REASON FOR VISIT DX: L02.212 Cutaneous abscess of back [any part, except buttock] FINAL DX: PRINCIPAL: L02.212 Cutaneous abscess of back [any part, except buttock] SECONDARY: F17.210 Nicotine dependence, cigarettes, uncomplicated PROCEDURES DOCTOR NAME DATE NOTE: The code number assigned matches the documented diagnosis and / or procedure in the patient's chart. However, the narrative phrase printed from the coding software may appear abbreviated, or result in slightly different terminology. Coded By: Elizabeth Blanc Date Saved: 10/29/2017 07:50 am Normal [facility] Coding Summary.on 10-19-2017 Coding Summary. CODING DATE: [facility] STATUS: Home w/ Home Health PAYOR: Medicaid Grouper: 872 MS-DRG SEPTICEMIA OR SEVERE SEPSIS W/O MV >96 HOURS W/O CARE HOME Low Trim 0 High Trim 999 720 APR-DRG SEPTICEMIA & DISSEMINATED INFECTIONS Severity of Illness Moderate Risk of Mortality Minor ADMIT DX: A41.9 Sepsis, unspecified organism REASON FOR VISIT DX: FINAL DX: PRINCIPAL: A41.9 Y Sepsis, unspecified organism SECONDARY: L02.212 Y Cutaneous abscess of back [any part, except buttock] L03.312 Y Cellulitis of back [any part except buttock] E87.1 Y Hypo-osmolality and hyponatremia B95.61 Y Methicillin susceptible Staphylococcus aureus infection as the cause of diseases classified elsewhere F17.210 Y Nicotine dependence, cigarettes, uncomplicated PROCEDURES DOCTOR NAME DATE [id number] Drainage of Lower Back, Jose M Kumar MD 10/08/2017 Approach NOTE: The code number assigned matches the documented diagnosis and / or procedure in the patient's chart. However, the narrative phrase printed from the coding software may appear abbreviated, or result in slightly different terminology. Coded By: Toña Espinosa Date Saved: 10/19/2017 02:22 pm Normal [facility] Discharge Summaryon 10-16-19 Discharge Summary Patient: Alexx WILKES Age: 27 years Sex: Male : 1990 Associated Diagnoses: None Author: uSshant DC, Mbanefo Discharge Information Discharge Summary Information: Admit Date/Time: 10/05/17 17:35 Discharge Date/Time: 10/16/17 10:50 Admitting Physician: Luis F Benavides DO Referring Physician for Admission: Consulting Physicians: Klarissa Thomason, Julian Patten MD, Jose M Camilo Admitting Diagnoses: Pain in back Dizziness Nausea Increased heart rate Discharge Diagnoses: Cellulitis of back [any part except buttock] Cutaneous abscess, unspecified Hypo-osmolality and hyponatremia Abnormal levels of other serum enzymes Prescription and Home Meds: acetaminophen-hydrocodone ([place] 325 mg-5 mg oral tablet) See Instructions, 1 - 2 tab(s) Oral q4hr-Q 6hr x 7days, PRN: for pain, 20 tab(s), 0 Refill(s) cephalexin (Keflex 500 mg Cap) 500 mg, 1 cap(s), Oral, q8hr, for 14 day(s), 42 cap(s), 0 Refill(s) nicotine (nicotine 14 mg/24 hr Transderm ER Film) 1 patch(es) TransDermal Daily, 14 patch(es), Start: 10/16/2017, Stop: 10/26/2017, 0 Refill(s) Physical Examination Vitals Signs (last 24 hrs) Last Charted Minimum MaximumTemp 36.6 (OCT 16 07:00) 36.5 (OCT 15 19:30) 36.7 (OCT 15 15:00)Heart Rate 79 (OCT 16 07:00) 79 (OCT 16 07:00) H 103 (OCT 15 15:00)Resp Rate 20 (OCT 16 07:00) 14 (OCT 16 01:49) 20 (OCT 16 07:00)SBP 119 (OCT 16 07:00) 105 (OCT 15 19:30) 125 (OCT 16 01:49)DBP 64 (OCT 16 07:00) L 54 (OCT 15 12:11) 75 (OCT 16 01:49)MAP 91 (OCT 16:49) 72 (OCT 15 12:11) 91 (OCT 16:49)SpO2 98 (OCT 16 07:00) 96 (OCT 15 15:00) 98 (OCT 16 07:) General: Alert and oriented, No acute distress. Eye: Pupils are equal, round and reactive to light, Extraocular movements are intact. HENT: Normocephalic. Neck: Supple. Respiratory: Lungs are clear to auscultation, Respirations are non-labored. Cardiovascular: Normal rate, Regular rhythm, Good pulses equal in all extremities. Gastrointestinal: Soft, Non-tender, Non-distended, Normal bowel sounds. Musculoskeletal Normal range of motion. Paralumbar wound VAC in place and draining serosanguineous fluid. Mild paralumbar tenderness.. Integumentary: Warm, Dry, [place]. Neurologic: Alert, Oriented. Psychiatric: Cooperative, Appropriate mood & affect. Hospital Course 27-year-old male with no significant past medical history presented with complaints of left flank and left lower back pain of about 2-3 weeks duration associated with fever, chills and nausea. He was subsequently admitted to [facility] with sepsis secondary to left paralumbar MSSA cellulitis with abscess formation, hyponatremia, leukocytosis and elevated LFTs. He was treated with antibiotics and was seen in consultation by the general surgeon and infectious disease specialist. He underwent incision and drainage with wound VAC application. Patient had a protracted stay in the hospital (greater than 10 days ) secondary to delay in obtaining precertification from insurance for wound VAC application. As of the day of the discharge patient continued to drain copious amounts of serosanguineous fluid intake the wound VAC. The patient's overall condition improved and he was subsequently discharged home with home health. He is to continue on oral Keflex for additional 2 weeks and will follow-up with the infectious disease specialist, wound care clinic and the general surgeon. Case was discussed with Dr. Myra Middleton. Discharge Plan Discharge Time Discharge time < 30 min. Discharge Summary Plan Discharge Status: improved. Discharge instructions given: to patient, written discharge instructions (activity level, diet, follow-up appointment, medications, symptoms worsening). Discharge disposition: discharge to home with home health care. Prescriptions: continue same medications, reviewed with patient, called to pharmacy. Normal [facility] Comment on above: Result Comment: Elec tronically Signed By: Sushant DC, Juan Pablo\\.br\\Date and Time Signed: 10/16/17 13:50 EST Inpatient Clinical Summaryon 10-16-2017 Inpatient Clinical Summary [place] [id number] Clinical Summary Person Information:Name: WILLOW WILKES Age: 27 Years : 1990 12:00 AM Sex: Male PCP: Myra Middleton MD Marital Status:Single Race:White Ethnicity:Non- or Language:Mongolian Visit Id: Visit Reason:Increased heart rate; Nausea; Dizziness; Pain in back; CELLULITIS, PHLEGMON, TACHYCARDIA Speciality: Acuity: 3 Enc Type: Inpatient Med Service: Medical Arrival:10/05/2017 5:35 PM Discharge: Dispo Type: Admitted as IP to this Hosp Address:[address] [place] [id number] Provider Notes: Diagnosis:Cellulitis of lower back; Elevated liver enzymes; Hyponatremia; Phlegmonous cellulitis Problems Active Smoker Smoking Status:Current Every Day Smoker Functional Status:Sensory Deficits: No hearing deficitsHistory of Falls: Mobility Assistance Prior to Admission: IndependentADLs: Minimal assistanceCurrent Level of Assistance for Self-Care/Mobility: Cognitive Status:Oriented x 3 Allergies No Known Allergies Measurements:Height: 175 cmWeight: 73.4 kgBlood Pressure: 133 mmHg / 70 mmHgBMI: 28.15 kg/m2 Procedures Incision AND drainage Incision AND drainage (10/08/2017) Immunizations No Immunizations Documented This Visit Final Med List:acetaminophen-hydrocodone ([place] 325 mg-5 mg oral tablet) 1 - 2 tab(s) Oral q4hr-Q 6hr x 7days; as needed for pain. Refills: 0.cephalexin (Keflex 500 mg Cap) 1 Capsules By Mouth every 8 hours for 14 Days. Refills: 0.docusate (Colace 100 mg Cap) 1 Capsules By Mouth 2 times a day.Misc Prescription (WORK EXCUSE) 0. May resume work on 10/27/17.. Refills: 0.nicotine (nicotine 14 mg/24 hr Transderm ER Film) 1 Patches Transdermal every day for 14 Days. Refills: 0. Care Team Members:Attending Physician: Luis F Benavides DO AConsulting Physician: Sandor DC, Jose M Camilo; Klarissa Thomason, Julian Delcid Physician: Follow up:With: Address: When: Myra Middleton [address] [place] [address] Business (1) Within 5 to 7 days Comments: Call for followup appointment. No answer With: Address: When: Julian [address] [place] [address] [facility] () Within 2 weeks Comments: Call for followup appointment. Office computer is down right now. Call Wednesday for appointment With: Address: When: Jose M Patten [address] [place] [address], [facility] [address] [place] [address] [facility] (1) 10/28/17 09:55:00 Comments: Call for followup appointment With: Address: When: Wound Clinic: [facility] [phone] 10/14/17 08:00:00 Comments: Keep scheduled appointment Patient Education Information: Cellulitis, [id number], [place] 5/325 Tab Normal [facility] Inpatient Patient Summaryon 10-16-2017 Inpatient Patient Summary [address] [address] Patient Discharge Instructions PERSON INFORMATION Name: WILLOW WILKES Date of : 1990 12:00 AM Current Date: 10/16/17 12:14:08 PHYSICIANS Admitting Physician: Luis F Benavides DO [facility] Care Physician: Kane DC[facility] Comment: Discharge Diagnosis: Cellulitis of lower back; Elevated liver enzymes; Hyponatremia; Phlegmonous cellulitisCondition at Discharge: Improved WILLOW WILKES has been given the following list of follow-up instructions, prescriptions, and patient education materials: PATIENT FOLLOW-UP INFORMATIONDiet: RegularDischarge Activity: Ambulate as tolerated, Activity as toleratedDischarge Restrictions: Wound Care Instructions: Remove Your Dressing In DaysCall Your Doctor For: IF UNABLE TO CONTACT YOUR PHYSICIAN AND YOU FEEL IT IS AN EMERGENCY, GO TO THE NEAREST EMERGENCY ROOM OR CALL 911 Home Treatment: Devices/Equipment: Special Services: Additional Instructions: Primary Care Physician to provide the following pending test results: NoneFollow up:With: Address: When: Myra Middleton [address] [place] [address] Business (1) Within 5 to 7 days Comments: Call for followup appointment. No answer With: Address: When: Julian Cyr [address] [place], [place] [id number] [facility] (1) Within 2 weeks Comments: Call for followup appointment. Office computer is down right now. Call Wednesday for appointment With: Address: When: Jose M Patten [facility] [address] [place] [address] [facility] (1) 10/28/17 09:55:00 Comments: Call for followup appointment With: Address: When: Wound Clinic: [facility] [phone] 10/14/17 08:00:00 Comments: Keep scheduled appointment In the event that this physician does not participate in your insurance network, please consult with your insurance company to find a nearby participating provider. Comment: CHUNG Bustamante RYAN, have received the attached patient education materials/instructions and have verbalized understanding:Patient Signature Date Clinican/Nurse Signature Date HERE ARE THE MEDICATION CHANGES THAT OCCURRED DURING YOUR HOSPITAL STAY New [facility]ations[facility], [address] [place] [address], [phone]-hydrocodone ([place] 325 mg-5 mg oral tablet) 1 - 2 tab(s) Oral q4hr-Q 6hr x 7days; as needed for pain. Refills: 0.Last Dose: Next Dose: cephal exin (Keflex 500 mg Cap) 1 Capsules By Mouth every 8 hours for 14 Days. Refills: 0.Last Dose: Next Dose: nicoti ne (nicotine 14 mg/24 hr Transderm ER Film) 1 Patches Transdermal every day for 14 Days. Refills: 0.Last Dose: Next Dose: Printe d PrescriptionsMisc Prescription (WORK EXCUSE) 0. May resume work on 10/27/17.. Refills: 0.Last Dose: Next Dose: Other Medicationsdocusate (Colace 100 mg Cap) 1 Capsules By Mouth 2 times a day.Last Dose: Next Dose: Commen t: MEDICATION LIST PROVIDED FOR YOU IS A LIST OF YOUR CURRENT MEDICATIONS. PLEASE CARRY THIS WITH YOU AT ALL TIMES. acetaminophen-hydrocodone ([place] 325 mg-5 mg oral tablet) 1 - 2 tab(s) Oral q4hr-Q 6hr x 7days; as needed for pain. Refills: 0.cephalexin (Keflex 500 mg Cap) 1 Capsules By Mouth every 8 hours for 14 Days. Refills: 0.docusate (Colace 100 mg Cap) 1 Capsules By Mouth 2 times a day.Misc Prescription (WORK EXCUSE) 0. May resume work on 10/27/17.. Refills: 0.nicotine (nicotine 14 mg/24 hr Transderm ER Film) 1 Patches Transdermal every day for 14 Days. Refills: 0.Pharmacy Information: Other: Danielle Jacksonomment: PATIENT EDUCATION INFORMATIONInstructions:Celluli tisCellulitis is an infection of the skin and the tissue under the skin. The infected area is usually red and tender. This happens most often in the arms and lower legs. HOME CARE? Take your antibiotic medicine as told. Finish the medicine even if you start to feel better.? Keep the infected arm or leg raised (elevated).? Put a warm cloth on the area up to 4 times per day.? Only take medicines as told by your doctor.? Keep all doctor visits as told.GET HELP IF:? You see red streaks on the skin coming from the infected area.? Your red area gets bigger or turns a dark color.? Your bone or joint under the infected area is painful after the skin heals.? Your infection comes back in the same area or different area.? You have a puffy (swollen) bump in the infected area.? You have new symptoms.? You have a fever. GET HELP RIGHT AWAY IF:? You feel very sleepy.? You throw up (vomit) or have watery poop (diarrhea).? You feel sick and have muscle aches and pains.MAKE SURE YOU:? Understand these instructions. ? Will watch your condition.? Will get help right away if you are not doing well or get worse.Document Released: 03/15/2009 Document Revised: 02/11/2015 Document Reviewed: 12/12/2012ExitCare? Patient Information ?2015 [employer]. This information is not intended to replace advice given to you by your health care provider. Make sure you discuss any questions you have with your health care provider. Medication Leaflets:cephalexin (sef a RENUKA in)Jane Kesree What is the most important information I should know about cephalexin?You should not use this medicine if you are allergic to cephalexin or to similar antibiotics, such as Ceftin, Cefzil, Omnicef, and others. Tell your doctor if you are allergic to any drugs, especially penicillins or other antibiotics.What is cephalexin?Cephalexin is a cephalosporin (SEF a low spor in) antibiotic. It works by fighting bacteria in your body.Cephalexin is used to treat infections caused by bacteria, including upper respiratory infections, ear infections, skin infections, and urinary tract infections.Cephalexin may also be used for purposes not listed in this medication guide.What should I discuss with my healthcare provider before taking cephalexin?Do not use this medicine if you are allergic to cephalexin or to other cephalosporin antibiotics, such as:?? cefaclor (Raniclor);? cefadroxil (Duricef);? cefazolin (Ancef);? cefdinir (Omnicef);? cefditoren (Spectracef);? cefpodoxime (Vantin);? cefprozil (Cefzil);? ceftibuten (Cedax);? cefuroxime (Ceftin); or? cephradine (Velosef), and others.To make sure cephalexin is safe for you, tell your doctor if you have:?? an allergy to any drugs (especially penicillins);? kidney disease; or? a history of intestinal problems, such as colitis.The liquid form of cephalexin may contain sugar. This may affect you if you have diabetes.Cephalexin is not expected to be harmful to an unborn baby. Tell your doctor if you are .Cephalexin can pass into breast milk and may harm a nursing baby. Tell your doctor if you are breast-feeding a baby.How should I take cephalexin?Follow all directions on your prescription label. Do not take this medicine in larger or smaller amounts or for longer than recommended. Do not use cephalexin to treat any condition that has not been checked by your doctor.Shake the oral suspension (liquid) well just before you measure a dose. Measure liquid medicine with the dosing syringe provided, or with a special dose-measuring spoon or medicine cup. If you do not have a dose-measuring device, ask your pharmacist for one.Use this medicine for the full prescribed length of time. Your symptoms may improve before the infection is completely cleared. Skipping doses may also increase your risk of further infection that is resistant to antibiotics. Cephalexin will not treat a viral infection such as the flu or a common cold.Do not share cephalexin with another person, even if they have the same symptoms you have.This medication can cause you to have unusual results with certain medical tests. Tell any doctor who treats you that you are using cephalexin.Store the tablets and capsules at room temperature away from moisture, heat, and light.Store the liquid medicine in the refrigerator. Throw away any unused liquid after 14 days.What happens if I miss a dose?Take the missed dose as soon as you remember. Skip the missed dose if it is almost time for your next scheduled dose. Do not take extra medicine to make up the missed dose.What happens if I overdose?Seek emergency medical attention or call the Poison Help line at .Overdose symptoms may include nausea, vomiting, stomach pain, diarrhea, and blood in your urine.What should I avoid while taking cephalexin?Antibiotic medicines can cause diarrhea, which may be a sign of a new infection. If you have diarrhea that is watery or bloody, call your doctor. Do not use anti-diarrhea medicine unless your doctor tells you to.What are the possible side effects of cephalexin?Get emergency medical help if you have signs of an allergic reaction: hives; difficult breathing; swelling of your face, lips, tongue, or throat.Call your doctor at once if you have:?? severe stomach pain, diarrhea that is watery or bloody;? jaundice (yellowing of the skin or eyes);? easy bruising, unusual bleeding (nose, mouth, vagina, or rectum), purple or red pinpoint spots under your skin;? little or no urination; ? agitation, confusion, hallucinations; or ? severe skin reaction--fever, sore throat, swelling in your face or tongue, burning in your eyes, skin pain followed by a red or purple skin rash that spreads (especially in the face or upper body) and causes blistering and peeling.Common side effects may include:?? diarrhea;? dizziness, feeling tired;? headache, joint pain; or? vaginal itching or discharge.This is not a complete list of side effects and others may occur. Call your doctor for medical advice about side effects. You may report side effects to FDA at 1-778-FMJ-2598. What other drugs will affect cephalexin?Other drugs may interact with cephalexin, including prescription and iaan-bma-retxskk medicines, vitamins, and herbal products. Tell each of your health care providers about all medicines you use now and any medicine you start or stop using.Where can I get more information?Your pharmacist can provide more information about cephalexin.Remember, keep this and all other medicines out of the reach of children, never share your medicines with others, and use this medication only for the indication prescribed.Every effort has been made to ensure that the information provided by [employer]. ('[employer]') is accurate, up-to-date, and complete, but no guarantee is made to that effect. Drug information contained herein may be time sensitive. [employer] information has been compiled for use by healthcare practitioners and consumers in the [place] and therefore [employer] does not warrant that uses outside of the [place] are appropriate, unless specifically indicated otherwise. [employer]'s drug information does not endorse drugs, diagnose patients or recommend therapy. [employer] drug information is an informational resource designed to assist licensed healthcare practitioners in caring for their patients and/or to serve consumers viewing this service as a supplement to, and not a substitute for, the expertise, skill, knowledge and judgment of healthcare practitioners. The absence of a warning for a given drug or drug combination in no way should be construed to indicate that the drug or drug combination is safe, effective or appropriate for any given patient. [employer] does not assume any responsibility for any aspect of healthcare administered with the aid of information [employer] provides. The information contained herein is not intended to cover all possible uses, directions, precautions, warnings, drug interactions, allergic reactions, or adverse effects. If you have questions about the drugs you are taking, check with your doctor, nurse or pharmacist. Copyright 5770-7484 [employer]. Version: 9.01. Revision Date: 01/26/2017.acetaminophen and hydrocodone (a SEET a MIN oh fen and pete droe KOE done)Hycet, Lorcet, Lortab 10/325, Lortab 5/325, Lortab 7.5/325, Lortab Elixir, [place], Verdrocet, Vicodin, Xodol, Zamicet What is the most important information I should know about acetaminophen and hydrocodone?This medicine can slow or stop your breathing, and may be habit-forming. Use only your prescribed dose. Never share acetaminophen and hydrocodone with another person. MISUSE OF NARCOTIC MEDICINE CAN CAUSE ADDICTION, OVERDOSE, OR , especially in a child or other person using the medicine without a prescription. Do not use this medicine if you have used an MAO inhibitor in the past 14 days, such as isocarboxazid, linezolid, methylene blue injection, phenelzine, rasagiline, selegiline, or tranylcypromine.An overdose of acetaminophen can damage your liver or cause . Call your doctor at once if you have nausea, pain in your upper stomach, itching, loss of appetite, dark urine, maddy-colored stools, or jaundice (yellowing of your skin or eyes).Stop taking this medicine and call your doctor right away if you have skin redness or a rash that spreads and causes blistering and peeling. What is acetaminophen and hydrocodone?Hydrocodone is an opioid pain medication. An opioid is sometimes called a narcotic.Acetaminophen is a less potent pain reliever that increases the effects of hydrocodone.Acetaminophen and hydrocodone is a combination medicine used to relieve moderate to severe pain.Acetaminophen and hydrocodone may also be used for purposes not listed in this medication guide.What should I discuss with my healthcare provider before taking acetaminophen and hydrocodone?You should not use this medicine if you are allergic to acetaminophen (Tylenol) or hydrocodone, or if you have recently used alcohol, sedatives, tranquilizers, or other narcotic medications.Do not use this medicine if you have taken an MAO inhibitor in the past 14 days. A dangerous drug interaction could occur. MAO inhibitors include isocarboxazid, linezolid, phenelzine, rasagiline, selegiline, and tranylcypromine.Some medicines can interact with hydrocodone and cause a serious condition called serotonin syndrome. Be sure your doctor knows if you also take medicine for depression, mental illness, Parkinson's disease, migraine headaches, serious infections, or prevention of nausea and vomiting. Ask your doctor before making any changes in how or when you take your medications. To make sure this medicine is safe for you, tell your doctor if you have:?? liver disease, cirrhosis, or if you drink more than 3 alcoholic beverages per day;? a history of alcoholism or drug addiction;? diarrhea, inflammatory bowel disease, bowel obstruction, severe constipation;? kidney disease;? low blood pressure, or if you are dehydrated;? a history of head injury, brain tumor, or stroke;? asthma, COPD, sleep apnea, or other breathing disorders; or? if you use a sedative like Valium (diazepam, alprazolam, lorazepam, Ativan, Klonopin, Restoril, Tranxene, Versed, Xanax, and others).This medicine is more likely to cause breathing problems in older adults and people who are severely ill, malnourished, or otherwise debilitated.If you use narcotic medicine while you are , your baby could become dependent on the drug. This can cause life-threatening withdrawal symptoms in the baby after it is born. Babies born dependent on habit-forming medicine may need medical treatment for several weeks. Tell your doctor if you are or plan to become .Acetaminophen and hydrocodone can pass into breast milk and may harm a nursing baby. You should not breast-feed while using this medicine.How should I take acetaminophen and hydrocodone?Follow all directions on your prescription label. Never take this medicine in larger amounts, or for longer than prescribed. An overdose can damage your liver or cause . Tell your doctor if the medicine seems to stop working as well in relieving your pain.Hydrocodone may be habit-forming, even at regular doses. Never share this medicine with another person, especially someone with a history of drug abuse or addiction. MISUSE OF NARCOTIC MEDICINE CAN CAUSE ADDICTION, OVERDOSE, OR , especially in a child or other person using the medicine without a prescription. Selling or giving away acetaminophen and hydrocodone is against the law. Measure liquid medicine with the dosing syringe provided, or with a special dose-measuring spoon or medicine cup. If you do not have a dose-measuring device, ask your pharmacist for one.If you need surgery or medical tests, tell the doctor ahead of time that you are using this medicine. You may need to stop using the medicine for a short time.Do not stop using this medicine suddenly after long-term use, or you could have unpleasant withdrawal symptoms. Ask your doctor how to safely stop using acetaminophen and hydrocodone.Store at room temperature away from moisture and heat. Keep track of the amount of medicine used from each new bottle. Hydrocodone is a drug of abuse and you should be aware if anyone is using your medicine improperly or without a prescription.Always check your bottle to make sure you have received the correct pills (same brand and type) of medicine prescribed by your doctor. What happens if I miss a dose?Since acetaminophen and hydrocodone is taken as needed, you may not be on a dosing schedule. If you are taking the medication regularly, take the missed dose as soon as you remember. Skip the missed dose if it is almost time for your next scheduled dose. Do not use extra medicine to make up the missed dose.What happens if I overdose?Seek emergency medical attention or call the Poison Help line at . An overdose of acetaminophen and hydrocodone can be fatal. The first signs of an acetaminophen overdose include loss of appetite, nausea, vomiting, stomach pain, sweating, and confusion or weakness. Later symptoms may include pain in your upper stomach, dark urine, and yellowing of your skin or the whites of your eyes.Overdose symptoms may also include extreme drowsiness, pinpoint pupils, cold and clammy skin, muscle weakness, fainting, weak pulse, slow heart rate, coma, blue lips, shallow breathing, or no breathingWhat should I avoid while taking acetaminophen and hydrocodone?This medication may impair your thinking or reactions. Avoid driving or operating machinery until you know how acetaminophen and hydrocodone will affect you. Dizziness or severe drowsiness can cause falls or other accidents.Ask a doctor or pharmacist before using any other cold, allergy, pain, or sleep medication. Acetaminophen (sometimes abbreviated as APAP) is contained in many combination medicines. Taking certain products together can cause you to get too much acetaminophen which can lead to a fatal overdose. Check the label to see if a medicine contains acetaminophen or APAP.Avoid drinking alcohol. It may increase your risk of liver damage while taking acetaminophen. What are the possible side effects of acetaminophen and hydrocodone?Get emergency medical help if you have signs of an allergic reaction: hives; difficulty breathing; swelling of your face, lips, tongue, or throat.In rare cases, acetaminophen may cause a severe skin reaction that can be fatal. This could occur even if you have taken acetaminophen in the past and had no reaction. Stop taking this medicine and call your doctor right away if you have skin redness or a rash that spreads and causes blistering and peeling. If you have this type of reaction, you should never again take any medicine that contains acetaminophen.Call your doctor at once if you have:?? shallow breathing, slow heartbeat;? a light-headed feeling, like you might pass out;? confusion, unusual thoughts or behavior;? seizure (convulsions);? easy bruising or bleeding;? infertility, missed menstrual periods;? impotence, sexual problems, loss of interest in sex;? liver problems--nausea, upper stomach pain, itching, loss of appetite, dark urine, maddy-colored stools, jaundice (yellowing of the skin or eyes); or? low cortisol levels-- nausea, vomiting, loss of appetite, dizziness, worsening tiredness or weakness.Seek medical attention right away if you have symptoms of serotonin syndrome, such as: agitation, hallucinations, fever, sweating, shivering, fast heart rate, muscle stiffness, twitching, loss of coordination, nausea, vomiting, or diarrhea.Common side effects include:?? drowsiness, headache;? upset stomach, constipation;? blurred vision; or? dry mouth.This is not a complete list of side effects and others may occur. Call your doctor for medical advice about side effects. You may report side effects to FDA at 2-038-YAK-8771.What other drugs will affect acetaminophen and hydrocodone?Narcotic (opioid) medication can interact with many other drugs and cause dangerous side effects or . Be sure your doctor knows if you also use:?? other narcotic medications--opioid pain medicine or prescription cough medicine;? drugs that make you sleepy or slow your breathing--a sleeping pill, muscle relaxer, sedative, tranquilizer, or antipsychotic medicine; or? drugs that affect serotonin levels in your body--medicine for depression, Parkinson's disease, migraine headaches, serious infections, or prevention of nausea and vomiting. This list is not complete. Other drugs may interact with acetaminophen and hydrocodone, including prescription and iuwc-jcx-cgtkuhd medicines, vitamins, and herbal products. Not all possible interactions are listed in this medication guide. Where can I get more information?Your pharmacist can provide more information about acetaminophen and hydrocodone.Remember, keep this and all other medicines out of the reach of children, never share your medicines with others, and use this medication only for the indication prescribed.Every effort has been made to ensure that the information provided by [employer]. ('[employer]') is accurate, up-to-date, and complete, but no guarantee is made to that effect. Drug information contained herein may be time sensitive. [employer] information has been compiled for use by healthcare practitioners and consumers in the [place] and therefore [employer] does not warrant that uses outside of the [place] are appropriate, unless specifically indicated otherwise. [employer] drug information does not endorse drugs, diagnose patients or recommend therapy. [employer] drug information is an informational resource designed to assist licensed healthcare practitioners in caring for their patients and/or to serve consumers viewing this service as a supplement to, and not a substitute for, the expertise, skill, knowledge and judgment of healthcare practitioners. The absence of a warning for a given drug or drug combination in no way should be construed to indicate that the drug or drug combination is safe, effective or appropriate for any given patient. [facility] does not assume any responsibility for any aspect of healthcare administered with the aid of information [facility] provides. The information contained herein is not intended to cover all possible uses, directions, precautions, warnings, drug interactions, allergic reactions, or adverse effects. If you have questions about the drugs you are taking, check with your doctor, nurse or pharmacist. Copyright [id number] [employer]. Version: 14.11. Revision Date: 07/09/2016. Thank you for choosing [facility] Interdisciplinary Note - Brett e Manageron 10-15-2017 Interdisciplinary Note - Senior Principal Daily rounds completed with hospitalist Dr. Canchola, MARY Cuellar, Pharmacist Maryjane present. Patient alert and oriented, involved in POC. Discussed medications, labs, and tests. Pt remains in isolation. No family present at this time. Patient?s goal is to return home with [facility] at discharge. Anticipated discharge yet to be determined, awaiting wound vac authorization from [place] [employer]. Contact and goal information updated on white board. [facility] Progress Note-Physicianon Progress Note-Physician Patient: WILLOW WILKES Age: 27 years Sex: Male : 1990 Associated Diagnoses: None Author: Sushant DC, Juan Pablo Basic Information 27-year-old male with no significant past medical history presented with complaints of left flank and left lower back pain of about 2-3 weeks duration associated with fever, chills and nausea and was admitted with sepsis present on admission, left flank/left lower back cellulitis with abscess formation, hyponatremia, leukocytosis, elevated LFTs. He is status post incision and drainage with wound VAC application on 10/08/17. Subjective Seen and examined. He offers no complaints today. He feels better. He denies any fever. Health Status Allergies: Allergic Reactions (Selected)No Known Allergies Current medications: Medications (11) ActiveScheduled: (4)ceFAZolin 2 gram 50 mL, IV Piggyback, b7gvmmaherqn sodium 100 mg Cap [F] 100 mg 1 cap(s), Oral, BIDnicotine 14 mg/24 hr Transderm ER Film [F] 14 mg 1 patch(es), TransDermal, DailySodium Chloride 0.9% 500 mL 500 mL, IVContinuous: (1)Lactated Ringers 1,000 mL 1,000 mL, IV, 20 mL/hrPRN: (6)acetaminophen 325 mg Tab UD [F] 650 mg 2 tab(s), Oral, i0tqfcbmmerbjtipr-stpkgjztd 325 mg-5 mg Tab [F] 1 tab(s), Oral, x0xwtghsjyvpg 0.083% Inh Mary 3 mL [F] 2.5 mg 3 mL, NEB, j3suljgxmygmy CFC free 90 mcg/inh Inh Aer w/Adapt 8.5 gm [F] 180 microgram 2 puff(s), Inhalation, m4sugtwfsjxk 2 mg/mL preservative-free SOLN [F] 2 mg 1 mL, IV Push, z1rsbnffenzvpfi 2 mg/mL Inj [F] 4 mg 2 mL, IV Push, q6hr Problem list: All ProblemsImpaired skin integrity / SNOMED CT [id number] / ConfirmedProblem added on documentation of skin impairments.At risk for falls / SNOMED CT 528099955 / PossibleProblem added when Risk for Falls Careplan was initiated.Smoker / IMO [id number] / ConfirmedAdded secondary to documentation in Social History.Resolved: Asthma / SNOMED CT [id number] Histories Past Medical History: ResolvedAsthma ([id number]): Resolved. Family History: AsthmaMother Procedure history: Incision AND drainage (SNOMED CT [id number]) performed by Jose M Patten MD on 10/08/2017 at 27 Years.Comments:10/08/2017 19:32 - Magda RN, Julieta NI AND D AND IRRIGATION LEFT LOWER BACK ABCESS 10 X 15 CMIncision AND drainage (SNOMED CT [id number]).Comments:10/06/2017 06:12 - Philippe Cabezas RN right hand Social History Social & Psychosocial RsctcmKpbemzv43/26/2017 Risk Assessment: Denies Alcohol UseSubstance Abuse10/05/2017 Risk Assessment: Denies Substance IpfmiZjvwcrg34/26/2017 Risk Assessment: High Risk10/05/2017 Use: Current Every Day Smoker Type: Cigarettes Tobacco use per day: 0.5. Objective VS/Measurements: Vitals Signs (last 24 hrs) Last Charted Minimum MaximumTemp 36.5 (OCT 15 08:49) 36.5 (OCT 14 20:08) 36.6 (OCT 14 16:00)Heart Rate 98 (OCT 15 08:51) 80 (OCT 15 01:52) 99 (OCT 14 16:11)Resp Rate 16 (OCT 15 08:51) 14 (OCT 14 20:09) 17 (OCT 14 16:10)SBP 105 (OCT 15 08:49) 105 (OCT 15 08:49) 122 (OCT 14 16:11)DBP 65 (OCT 15 08:49) 65 (OCT 15 08:49) 74 (OCT 14 16:11)MAP 78 (OCT 15 08:49) 78 (OCT 15 08:49) 90 (OCT 14 16:11)SpO2 97 (OCT 15 08:51) 95 (OCT 14 20:09) 97 (OCT 15 01:52). Vitals Signs (last 24 hrs) Last Charted Minimum MaximumTemp 36.5 (OCT 15 08:49) 36.5 (OCT 14 20:08) 36.6 (OCT 14 16:00)Heart Rate 98 (OCT 15 08:51) 80 (OCT 15 01:52) 99 (OCT 14 16:11)Resp Rate 16 (OCT 15 08:51) 14 (OCT 14 20:09) 17 (OCT 14 16:10)SBP 105 (OCT 15 08:49) 105 (OCT 15 08:49) 122 (OCT 14 16:11)DBP 65 (OCT 15 08:49) 65 (OCT 15 08:49) 74 (OCT 14 16:11)MAP 78 (OCT 15 08:49) 78 (OCT 15 08:49) 90 (OCT 14 16:11)SpO2 97 (OCT 15:51) 95 (OCT 14 20:09) 97 (OCT 15 01:52) General: Alert and oriented, No acute distress. Eye: Pupils are equal, round and reactive to light, Extraocular movements are intact. HENT: Normocephalic. Neck: Supple. Respiratory: Lungs are clear to auscultation, Respirations are non-labored. Cardiovascular: Normal rate, Regular rhythm. Gastrointestinal: Soft, Non-distended, Normal bowel sounds. Musculoskeletal Normal range of motion. Left paralumbar markedly reduced redness. Wound Vac in place and draining serous fluid.. Neurologic: Alert, Oriented. Psychiatric: Cooperative, Appropriate mood & affect. Review / Management Results review Diagnostic Findings: * Final Report *Reason For ExamOther (please specify)POWERSCRIBE REPORTIMPRESSION: PROBABLE 10.3 X 5.3 X 3.4 CM ABSCESS WITHIN THE SOFT TISSUES OF THELOWER BACK AT THE AREA OF CLINICAL CONCERN.CLINICAL HISTORY: Swelling and erythema lower back.COMPARISON: CT abdomen and pelvis without contrast 10/05/2017.TECHNIQUE: Transabdominal ultrasound of the lower back was performed in the area ofclinical concern.FINDINGS: An ovoid complex fluid collection within the superficial subcutaneous tissues of thelower back to the left of midline measuring 10.3 x 5.3 x 3.4 cm (sagittal, transverseand AP dimensions respectively) is highly suspicious for an abscess, approximately1.5 cm deep to the skin surface.Signature Line FINAL REPORT Dictated: 10/08/2017 8:58 am Yury Delarosa MD JSigned (Electronic Signature): 10/08/2017 8:58 amSigned by: Yury Delarosa MDTranscribed by: JENNIFFER Technologist: CHUCK TODDThis document has an imageResult type: US Abdomen, LimitedResult date: October 07, 2017 18:20 ESTResult status: Auth (Verified)Result title: US Abdomen, LimitedPerformed by: Yury Delarosa MD on October 08, 2017 08:58 ESTVerified by: Yury Delarosa MD on October 08, 2017 08:58 [facility] info: [id number], [facility], Inpatient, 10/05/2017 - . Condition: Fair. Impression and Plan 27-year-old male with no significant past medical history presented with complaints of left flank and left lower back pain of about 2-3 weeks duration associated with fever, chills and nausea and was admitted with sepsis present on admission, left flank/left lower back cellulitis with abscess formation, hyponatremia, leukocytosis, elevated LFTs.- Sepsis?present on admission?secondary to left flank/left lower back cellulitis. Sepsis has resolved. Treating underlying disease process. Blood cultures so far not isolating any organisms. Wound cultures isolated MSSA.-Left flank/left lower back MSSA cellulitis with abscess formation?Continue on IV cefazolin 2 g every 8 hours. Infectious disease specialist following. And will transition to oral Keflex at discharge. He is status post postoperative day #6?incision and drainage with wound VAC application.. Wound VAC was changed from 10/12/17. Awaiting home-going wound VAC-pending insurance preapproval.- Hyponatremia? Resolved. - Leukocytosis?secondary to above infectious process. Resolved. - Elevated LFTs?maybe secondary to above infectious process. - Tobacco dependence?advised on cessation. Continue nicotine patch.- DVT prophylaxis?early ambulation.Disposition: Home soon pending homebound wound VAC. Awaiting precertification by insurance. [facility] Comment on above: Result Comment: Elec tronically Signed By: Sushant DC, Juan Pablo\\.br\\Date and Time Signed: 10/15/17 11:21 EST Progress Note-Physician Patient: WILLOW WILKES Age: 27 years Sex: Male : 1990 Associated Diagnoses: None Author: Julian Cyr M.D Subjective Continues to improve. No fevers. Tolerating antibiotic. Review of Systems Constitutional: Negative. Musculoskeletal: Back pain: On the right side, In the lower region, The pain is mild. Health Status Allergies: Allergic Reactions (Selected)No Known Allergies Current medications: Medications (11) ActiveScheduled: (4)ceFAZolin 2 gram 50 mL, IV Piggyback, s9amhopsvuza sodium 100 mg Cap [F] 100 mg 1 cap(s), Oral, BIDnicotine 14 mg/24 hr Transderm ER Film [F] 14 mg 1 patch(es), TransDermal, DailySodium Chloride 0.9% 500 mL 500 mL, IVContinuous: (1)Lactated Ringers 1,000 mL 1,000 mL, IV, 20 mL/hrPRN: (6)acetaminophen 325 mg Tab UD [F] 650 mg 2 tab(s), Oral, r7egoqwzojitxekom-dyaqrwomz 325 mg-5 mg Tab [F] 1 tab(s), Oral, a2siwjuncngiq 0.083% Inh Mary 3 mL [F] 2.5 mg 3 mL, NEB, j3ecmzvnhhtpr CFC free 90 mcg/inh Inh Aer w/Adapt 8.5 gm [F] 180 microgram 2 puff(s), Inhalation, s1pxarezcgfd 2 mg/mL preservative-free SOLN [F] 2 mg 1 mL, IV Push, i9wzfjesidacaii 2 mg/mL Inj [F] 4 mg 2 mL, IV Push, q6hr Problem list: All ProblemsAt risk for falls / SNOMED CT 821831988 / PossibleProblem added when Risk for Falls Careplan was initiated.Impaired skin integrity / SNOMED CT 01710204 / ConfirmedProblem added on documentation of skin impairments.Smoker / IMO [id number] / ConfirmedAdded secondary to documentation in Social History. Objective Vitals Signs (last 24 hrs) Last Charted Minimum MaximumTemp 36.5 (OCT 15 08:49) 36.5 (OCT 14 20:08) 36.8 (OCT 14 11:00)Heart Rate 98 (OCT 15 08:51) 80 (OCT 15 01:52) 99 (OCT 14 16:11)Resp Rate 16 (OCT 15 08:51) 14 (OCT 14 20:09) 17 (OCT 14 16:10)SBP 105 (OCT 15 08:49) 105 (OCT 15 08:49) 122 (OCT 14 16:11)DBP 65 (OCT 15 08:49) 65 (OCT 15 08:49) 74 (OCT 14 16:11)MAP 78 (OCT 15 08:49) 78 (OCT 15 08:49) 90 (OCT 14 16:11)SpO2 97 (OCT 15:51) 95 (OCT 14:09) 97 (OCT 14 11:06) General: Alert and oriented. Eye: Pupils are equal, round and reactive to light. Neck: Supple. Respiratory: Lungs are clear to auscultation. Cardiovascular: Normal rate, Regular rhythm, No murmur. Gastrointestinal: Soft, Non-tender, Non-distended, Normal bowel sounds. Musculoskeletal back with wound vac, erythema all gone. Mild swelling. Impression and Plan Diagnosis: MSSA back abscess. Course: Progressing as expected. Orders PO abx on dc for total 3 weeks. . [facility] Comment on above: Result Comment: Elec tronically Signed By: Julian Cyr M.D.pretty\\Date and Time Signed: 10/15/17 10:25 EST Interdisciplinary Note - Brett e Manageron 10-14-2017 Thyroid stimulating hormone (TSH) Daily rounds completed with hospitalist Dr. Canchola, MARY Cuellar, Pharmacist Trey present. Patient alert and oriented, involved in POC. Discussed medications, labs, and tests. Adjustment of pain meds, po meds ordered. Await wound vac authorization from [place] [employer]. Signed orders faxed yesterday. No family present at this time. Patient?s goal is to return home at discharge. Anticipated discharge yet to be determined,possibly today if wound vac authorization received. Contact and goal information updated on white board. [facility] Progress Note-Physicianon Progress Note-Physician Patient: WILLOW WILKES Age: 27 years Sex: Male : 1990 Associated Diagnoses: None Author: Juan Pablo Canchola MD Basic Information 27-year-old male with no significant past medical history presented with complaints of left flank and left lower back pain of about 2-3 weeks duration associated with fever, chills and nausea and was admitted with sepsis present on admission, left flank/left lower back cellulitis with abscess formation, hyponatremia, leukocytosis, elevated LFTs. He is status post incision and drainage with wound VAC application on 10/08/17. Subjective Seen and examined. He offers no complaints today. He feels better. He denies any fever. Health Status Allergies: Allergic Reactions (Selected)No Known Allergies Current medications: Medications (11) ActiveScheduled: (4)ceFAZolin 2 gram 50 mL, IV Piggyback, i6noxmcmzcoy sodium 100 mg Cap [F] 100 mg 1 cap(s), Oral, BIDnicotine 14 mg/24 hr Transderm ER Film [F] 14 mg 1 patch(es), TransDermal, DailySodium Chloride 0.9% 500 mL 500 mL, IVContinuous: (1)Lactated Ringers 1,000 mL 1,000 mL, IV, 20 mL/hrPRN: (6)acetaminophen 325 mg Tab UD [F] 650 mg 2 tab(s), Oral, t2iiucmkkmncoxzll-wzctmkioq 325 mg-5 mg Tab [F] 1 tab(s), Oral, u0buwkbidksjm 0.083% Inh Mary 3 mL [F] 2.5 mg 3 mL, NEB, c8stfquxehfdd CFC free 90 mcg/inh Inh Aer w/Adapt 8.5 gm [F] 180 microgram 2 puff(s), Inhalation, q3dodncsvitj 2 mg/mL preservative-free SOLN [F] 2 mg 1 mL, IV Push, f3ofthpyjzftchp 2 mg/mL Inj [F] 4 mg 2 mL, IV Push, q6hr Problem list: All ProblemsImpaired skin integrity / SNOMED CT 17623102 / ConfirmedProblem added on documentation of skin impairments.At risk for falls / SNOMED CT 413765672 / PossibleProblem added when Risk for Falls Careplan was initiated.Smoker / IMO [id number] / ConfirmedAdded secondary to documentation in Social History.Resolved: Asthma / SNOMED CT 998378469 Histories Past Medical History: ResolvedAsthma ([id number]): Resolved. Family History: AsthmaMother Procedure history: Incision AND drainage (SNOMED CT 011211311) performed by Jose M Patten MD on 10/08/2017 at 27 Years.Comments:10/08/2017 19:32 - Magda RN, Julieta NI AND D AND IRRIGATION LEFT LOWER BACK ABCESS 10 X 15 CMIncision AND drainage (SNOMED CT 145147849).Comments:10/06/2017 06:12 - Raulito THOMPSON, Philippe right hand Social History Social & Psychosocial EznebkTyxmkhy17/26/2017 Risk Assessment: Denies Alcohol UseSubstance Abuse10/05/2017 Risk Assessment: Denies Substance BqobrKoyaekr11/26/2017 Risk Assessment: High Risk10/05/2017 Use: Current Every Day Smoker Type: Cigarettes Tobacco use per day: 0.5. Objective VS/Measurements: Vitals Signs (last 24 hrs) Last Charted Minimum MaximumTemp 36.7 (OCT 14 09:59) 36.6 (OCT 13 23:00) 36.7 (OCT 13 16:31)Heart Rate 86 (OCT 14:06) 86 (OCT 14:06) H 103 (OCT 13 23:00)Resp Rate 16 (OCT 14 11:04) 16 (OCT 13 18:36) 17 (OCT 13 23:00)SBP 108 (OCT 14 11:05) 105 (OCT 13 23:00) 113 (OCT 13 18:37)DBP 70 (OCT 14 11:05) 64 (OCT 13 23:00) 77 (OCT 14 08:25)MAP 82 (OCT 14 11:05) 78 (OCT 13 23:00) 89 (OCT 14 08:25)SpO2 97 (OCT 14 11:06) 97 (OCT 14 11:06) 99 (OCT 13 23:00). Vitals Signs (last 24 hrs) Last Charted Minimum MaximumTemp 36.7 (OCT 14 09:59) 36.6 (OCT 13 23:00) 36.7 (OCT 13 16:31)Heart Rate 86 (OCT 14:) 86 (OCT 14:) H 103 (OCT 13 23:00)Resp Rate 16 (OCT 14 11:04) 16 (OCT 13 18:36) 17 (OCT 13 23:00)SBP 108 (OCT 14 11:05) 105 (OCT 13 23:00) 113 (OCT 13 18:37)DBP 70 (OCT 14 11:05) 64 (OCT 13 23:00) 77 (OCT 14 08:25)MAP 82 (OCT 14:05) 78 (OCT 13 23:00) 89 (OCT 14 08:25)SpO2 97 (OCT 14:) 97 (OCT 14:) 99 (OCT 13 23:00) General: Alert and oriented, No acute distress. Eye: Pupils are equal, round and reactive to light, Extraocular movements are intact. HENT: Normocephalic. Neck: Supple. Respiratory: Lungs are clear to auscultation, Respirations are non-labored. Cardiovascular: Normal rate, Regular rhythm. Gastrointestinal: Soft, Non-distended, Normal bowel sounds. Musculoskeletal Normal range of motion. Left paralumbar markedly reduced redness. Wound Vac in place and draining serous fluid.. Neurologic: Alert, Oriented. Psychiatric: Cooperative, Appropriate mood & affect. Review / Management Results review Diagnostic Findings: * Final Report *Reason For ExamOther (please specify)POWERSCRIBE REPORTIMPRESSION: PROBABLE 10.3 X 5.3 X 3.4 CM ABSCESS WITHIN THE SOFT TISSUES OF THELOWER BACK AT THE AREA OF CLINICAL CONCERN.CLINICAL HISTORY: Swelling and erythema lower back.COMPARISON: CT abdomen and pelvis without contrast 10/05/2017.TECHNIQUE: Transabdominal ultrasound of the lower back was performed in the area ofclinical concern.FINDINGS: An ovoid complex fluid collection within the superficial subcutaneous tissues of thelower back to the left of midline measuring 10.3 x 5.3 x 3.4 cm (sagittal, transverseand AP dimensions respectively) is highly suspicious for an abscess, approximately1.5 cm deep to the skin surface.Signature Line FINAL REPORT Dictated: 10/08/2017 8:58 am Yury Delarosa MD JSigned (Electronic Signature): 10/08/2017 8:58 amSigned by: Yury Delarosa MDTranscribed by: JENNIFFER Technologist: CHUCK Fernandes document has an imageResult type: US Abdomen, LimitedResult date: October 07, 2017 18:20 ESTResult status: Auth (Verified)Result title: US Abdomen, LimitedPerformed by: Yury Delarosa MD on October 08, 2017 08:58 ESTVerified by: Yury Delarosa MD on October 08, 2017 08:58 [facility] info: [id number], [facility], Inpatient, 10/05/2017 - . Condition: Fair. Impression and Plan 27-year-old male with no significant past medical history presented with complaints of left flank and left lower back pain of about 2-3 weeks duration associated with fever, chills and nausea and was admitted with sepsis present on admission, left flank/left lower back cellulitis with abscess formation, hyponatremia, leukocytosis, elevated LFTs.- Sepsis?present on admission?secondary to left flank/left lower back cellulitis. Sepsis has resolved. Treating underlying disease process. Blood cultures so far not isolating any organisms. Wound cultures isolated MSSA.-Left flank/left lower back MSSA cellulitis with abscess formation?Continue on IV cefazolin 2 g every 8 hours. Infectious disease specialist following. And will transition to oral Keflex at discharge. He is status post postoperative day #6?incision and drainage with wound VAC application.. Wound VAC was changed from 10/12/17. Awaiting home-going wound VAC-pending insurance preapproval.- Hyponatremia? Resolved. - Leukocytosis?secondary to above infectious process. Resolved. - Elevated LFTs?maybe secondary to above infectious process. - Tobacco dependence?advised on cessation. Continue nicotine patch.- DVT prophylaxis?early ambulation.Disposition: Home soon pending homebound wound VAC. Awaiting precertification by insurance. [facility] Comment on above: Result Comment: Elec tronically Signed By: Sushant DC, Juan Pablo\\.br\\Date and Time Signed: 10/14/17 11:09 EST C Bloodon 10-13-2017 Bacteria culture MicrobiologyPROCEDUR E: Blood Culture [R1] Blood BODY SITE: Arm LCOLLECTED DATE/TIME: 10/05/2017 23:35 EST RECEIVED DATE/TIME: 10/06/2017 00:59 ESTSTART DATE/TIME: 10/06/2017 00:59 EST FREE TEXT SOURCE: Peripheral vein site #2Hwalter Mcfadden, Анна Torres M.D., Анна HFINAL REPORTSFinal Report [] Verified Date/Time: 10/13/2017 03:00 ESTNo growth at 7 days.Performing LocationsR1: This test was performed at: [facility], [address] [place] [address], [id number] , [facility] Comment on above: Performed By: #### 1 [id number], [id number], [id number] ####[address] [address] Bacteria culture MicrobiologyPROCEDUR E: Blood Culture [R1] Blood BODY SITE: Arm RCOLLECTED DATE/TIME: 10/05/2017 23:08 EST RECEIVED DATE/TIME: 10/06/2017 01:00 ESTSTART DATE/TIME: 10/06/2017 01:00 EST FREE TEXT SOURCE: Peripheral vein site #1Hwalter Mcfadden, Анна Torres M.D., Анна HFINAL REPORTSFinal Report [] Verified Date/Time: 10/13/2017 03:00 ESTNo growth at 7 days.Performing LocationsR1: This test was performed at: [facility], [address] [place] [address], [id number] , [facility] Comment on above: Performed By: #### 1 [id number], [id number] ####[address] [address] Interdisciplinary Note - Brett e Manageron 10-13-2017 Interdisciplinary Note - Senior Principal Daily rounds completed with hospitalist Dr. Canchola, MARY Cuellar, Pharmacist Maryjane, Sports Medicine Specialist Damaris, and RN present. Patient alert and oriented, involved in POC. Discussed medications, labs, and tests. No family present at this time. Patient?s goal is to return home with [facility] wound Vac at discharge. Anticipated discharge yet to be determined, awaiting wound vac authorization. Contact and goal information updated on white board. [facility] Progress Note-Physicianon Progress Note-Physician Patient: WILLOW WILKES Age: 27 years Sex: Male : 1990 Associated Diagnoses: None Author: Juan Pablo Canchola MD Basic Information 27-year-old male with no significant past medical history presented with complaints of left flank and left lower back pain of about 2-3 weeks duration associated with fever, chills and nausea and was admitted with sepsis present on admission, left flank/left lower back cellulitis with abscess formation, hyponatremia, leukocytosis, elevated LFTs. He is status post incision and drainage with wound VAC application on 10/08/17. Subjective Seen and examined. He offers no complaints today. He feels better. He denies any fever. Health Status Allergies: Allergic Reactions (Selected)No Known Allergies Current medications: Medications (10) ActiveScheduled: (4)ceFAZolin 2 gram 50 mL, IV Piggyback, c5rexzpgywcb sodium 100 mg Cap [F] 100 mg 1 cap(s), Oral, BIDnicotine 14 mg/24 hr Transderm ER Film [F] 14 mg 1 patch(es), TransDermal, DailySodium Chloride 0.9% 500 mL 500 mL, IVContinuous: (1)Lactated Ringers 1,000 mL 1,000 mL, IV, 20 mL/hrPRN: (5)acetaminophen 325 mg Tab UD [F] 650 mg 2 tab(s), Oral, q2azahsdjtwvb 0.083% Inh Mary 3 mL [F] 2.5 mg 3 mL, NEB, i2wizzjiifdhi CFC free 90 mcg/inh Inh Aer w/Adapt 8.5 gm [F] 180 microgram 2 puff(s), Inhalation, z7ikzpycgeor 2 mg/mL preservative-free SOLN [F] 4 mg 2 mL, IV Push, d4tfqakaniejtdl 2 mg/mL Inj [F] 4 mg 2 mL, IV Push, q6hr Problem list: All ProblemsImpaired skin integrity / SNOMED CT 97242643 / ConfirmedProblem added on documentation of skin impairments.At risk for falls / SNOMED CT 075849556 / PossibleProblem added when Risk for Falls Careplan was initiated.Smoker / IMO [id number] / ConfirmedAdded secondary to documentation in Social History.Resolved: Asthma / SNOMED CT 645270567 Histories Past Medical History: ResolvedAsthma ([id number]): Resolved. Family History: AsthmaMother Procedure history: Incision AND drainage (SNOMED CT 550276909) performed by Jose M Patten MD on 10/08/2017 at 27 Years.Comments:10/08/2017 19:32 - Magda RN, Julieta IGLESIAS AND D AND IRRIGATION LEFT LOWER BACK ABCESS 10 X 15 CMIncision AND drainage (SNOMED CT 658450248).Comments:10/06/2017 06:12 - Raulito THOMPSON, Philippe right hand Social History Social & Psychosocial SawvfoUjldlhj88/26/2017 Risk Assessment: Denies Alcohol UseSubstance Abuse10/05/2017 Risk Assessment: Denies Substance QmwreVfbtawz04/26/2017 Risk Assessment: High Risk10/05/2017 Use: Current Every Day Smoker Type: Cigarettes Tobacco use per day: 0.5. Objective VS/Measurements: Vitals Signs (last 24 hrs) Last Charted Minimum MaximumTemp 36.6 (OCT 13 07:22) 36.5 (OCT 12 19:32) 36.6 (OCT 12 11:00)Heart Rate 90 (OCT 13 07:23) 72 (OCT 12 11:00) H 101 (OCT 12 19:33)Resp Rate 14 (OCT 13 07:23) 14 (OCT 13 07:23) 19 (OCT 12 19:33)SBP 128 (OCT 13 07:22) 105 (OCT 12 19:32) 128 (OCT 13 07:22)DBP 76 (OCT 13 07:22) L 59 (OCT 12 19:32) 76 (OCT 13 07:22)MAP 93 (OCT 13 07:22) 74 (OCT 12 19:32) 93 (OCT 13 07:22)SpO2 98 (OCT 13:23) 97 (OCT 12 19:33) 100 (OCT 13 00:36). Vitals Signs (last 24 hrs) Last Charted Minimum MaximumTemp 36.6 (OCT 13 07:22) 36.5 (OCT 12 19:32) 36.6 (OCT 12 11:00)Heart Rate 90 (OCT 13:23) 72 (OCT 12 11:00) H 101 (OCT 12 19:33)Resp Rate 14 (OCT 13:23) 14 (OCT 13 07:23) 19 (OCT 12 19:33)SBP 128 (OCT 13 07:22) 105 (OCT 12 19:32) 128 (OCT 13:22)DBP 76 (OCT 13:22) L 59 (OCT 12 19:32) 76 (OCT 13 07:22)MAP 93 (OCT 13 07:22) 74 (OCT 12 19:32) 93 (OCT 13 07:22)SpO2 98 (OCT 13:23) 97 (OCT 12 19:33) 100 (OCT 13 00:36) General: Alert and oriented, No acute distress. Eye: Pupils are equal, round and reactive to light, Extraocular movements are intact. HENT: Normocephalic. Neck: Supple. Respiratory: Lungs are clear to auscultation, Respirations are non-labored. Cardiovascular: Normal rate, Regular rhythm. Gastrointestinal: Soft, Non-distended, Normal bowel sounds. Musculoskeletal Normal range of motion. Left flank and left paralumbar markedly reduced redness. Wound Vac in place and draining serous fluid.. Neurologic: Alert, Oriented. Psychiatric: Cooperative, Appropriate mood & affect. Review / Management Results review Diagnostic Findings: * Final Report *Reason For ExamOther (please specify)POWERSCRIBE REPORTIMPRESSION: PROBABLE 10.3 X 5.3 X 3.4 CM ABSCESS WITHIN THE SOFT TISSUES OF THELOWER BACK AT THE AREA OF CLINICAL CONCERN.CLINICAL HISTORY: Swelling and erythema lower back.COMPARISON: CT abdomen and pelvis without contrast 10/05/2017.TECHNIQUE: Transabdominal ultrasound of the lower back was performed in the area ofclinical concern.FINDINGS: An ovoid complex fluid collection within the superficial subcutaneous tissues of thelower back to the left of midline measuring 10.3 x 5.3 x 3.4 cm (sagittal, transverseand AP dimensions respectively) is highly suspicious for an abscess, approximately1.5 cm deep to the skin surface.Signature Line FINAL REPORT Dictated: 10/08/2017 8:58 am Yury Delarosa MDigned (Electronic Signature): 10/08/2017 8:58 amSigned by: Yury Delarosa MDTranscribed by: JENNIFFER Technologist: CHUCK Fernandes document has an imageResult type: US Abdomen, LimitedResult date: October 07, 2017 18:20 ESTResult status: Auth (Verified)Result title: US Abdomen, LimitedPerformed by: Yury Delarosa MD on October 08, 2017 08:58 ESTVerified by: Yury Delarosa MD on October 08, 2017 08:58 [facility] info: [id number], [facility], Inpatient, 10/05/2017 - . Condition: Fair. Impression and Plan 27-year-old male with no significant past medical history presented with complaints of left flank and left lower back pain of about 2-3 weeks duration associated with fever, chills and nausea and was admitted with sepsis present on admission, left flank/left lower back cellulitis with abscess formation, hyponatremia, leukocytosis, elevated LFTs.- Sepsis?present on admission?secondary to left flank/left lower back cellulitis. Sepsis has resolved. Treating underlying disease process. Blood cultures so far not isolating any organisms. Wound cultures isolated MSSA.-Left flank/left lower back MSSA cellulitis with abscess formation?Continue on IV cefazolin 2 g every 8 hours. Infectious disease specialist following. And will transition to oral Keflex at discharge. He is status post postoperative day #5?incision and drainage with wound VAC application.. Wound VAC was changed from 10/12/17. Awaiting home-going wound VAC.- Hyponatremia? Resolved. - Leukocytosis?secondary to above infectious process. Resolved. - Elevated LFTs?maybe secondary to above infectious process. - Tobacco dependence?advised on cessation. Continue nicotine patch.- DVT prophylaxis?early ambulation.Disposition: Home soon pending homebound wound VAC. Awaiting precertification by insurance. [facility] Comment on above: Result Comment: Elec tronically Signed By: Sushant DC, Juan Pablo\\.br\\Date and Time Signed: 10/13/17 11:01 EST Interdisciplinary Note - Brett e Manageron 10-12-2017 Interdisciplinary Note - Senior Principal Daily rounds completed with hospitalist Dr. Canchola, MARY Cuellar, Pharmacist Maryjane, Sports Medicine Specialist Damaris, and Dara RN present. Patient alert and oriented, involved in POC. Discussed medications, labs, and tests. Await Dr. Patten and ID recommendations. Oral Atbx at d/c. No family present at this time. Patient?s goal is to return home with [facility] at discharge. Anticipated discharge yet to be determined, possibly later today. Contact and goal information updated on white board. [facility] Main OR Intraoperative Recor don 10-12-2017 Main OR Intraoperative Record IntraOp Document Type FT Summary Primary Physician: Sandor DC, Jose M Camilo Finalized Date/Time: 10/12/17 11:18:39 Pt. Name: WILLOW WILKES./Sex: 1990 Male Med Rec #: [id number] Physician: Анна Torres M.D. Financial #: [id number] Pt. Type: I Room/Bed: [place] [address] Admit/Disch: 10/05/17 17:35:00 - Institution: Case Times FT Entry 1 Patient Times In Room 10/08/17 14:16:00 Out Room 10/08/17 14:46:00 Procedure Times Start 10/08/17 14:25:00 Stop 10/08/17 14:39:00 Anesthesia Times Start 10/08/17 14:16:00 Stop 10/08/17 14:46:00 Last Modified By: iV Ambriz CST 10/08/17 14:46:55 General Comments: 10/12/2017 Chart opened to review and send charges [facility] Case Attendance FT Entry 1 Entry 2 Entry 3 Case Attendee Nabil SHETTY, Claudia Patten MD, Jose M Zayas RNDarron Role Performed Anesthesiologist of Surgeon - Primary Tuber Machine Cutter - Primary Record Time In 10/08/17 14:16:00 10/08/17 14:16:00 10/08/17 14:16:00 Time Out 10/08/17 14:46:00 10/08/17 14:46:00 10/08/17 14:46:00 Procedure CYST LESION REMOVAL CYST LESION REMOVAL CYST LESION REMOVAL GENERAL ANES(.) GENERAL ANES(.) GENERAL ANES(.) Comments Last Modified By: Shayan RN, CNOR, CRNFA, Shayan RN, CNOR, CRNFA, Shayan RN, CNOR, CRNFA, ONC, Sharmaine 10/08/17 ONC, Sharmaine 10/08/17 ONC, Sharmaine 10/08/17 14:46:59 14:46:59 14:46:59 Entry 4 Entry 5 Entry 6 Case Attendee Kenroy BSN, RN, Ben ANNEALER HELPER, Junior Downey RN, CNOR, CRNFA, Yoselin ONC, Sharmaine Role Performed Tuber Machine Cutter - Other Scrub - Primary Tuber Machine Cutter - Other Time In 10/08/17 14:16:00 10/08/17 14:16:00 10/08/17 14:16:00 Time Out 10/08/17 14:46:00 10/08/17 14:46:00 10/08/17 14:46:00 Procedure CYST LESION REMOVAL CYST LESION REMOVAL CYST LESION REMOVAL GENERAL ANES(.) GENERAL ANES(.) GENERAL ANES(.) Comments Last Modified By: Shayan THOMPSON, CNOR, CRNFA, Shayan RN, CNOR, CRNFA, Shayan RN, CNOR, CRNFA, ONC, Sharmaine 10/08/17 ONC, Sharmaine 10/08/17 ONC, Sharmaine 10/08/17 14:46:59 14:46:59 14:46:59 Perioperative Protocols FT Pre-Care Text: Implements protective measures prior to operative or invasive procedure, confirms identity before the operative or invasive procedure, verifies operative procedure, surgical site, and laterality Entry 1 Procedure(s) CYST LESION REMOVAL Patient Identity Birthday, ID Band GENERAL ANES(.) Verified (select at Check, Patient least 2): Participation Consents / H and P Anesthesia Consent, Operative Site N/A Verified HandP, Surgery/Procedure Marking Verified Consent Surgical Site Yes Laterality Verified n/a Verified Availability Medication Prep Dry n/a Verified (If Applicable) Time Out Claudia Romeo, Time Out Complete 10/08/17 14:23:00 Participants Kenroy CASTILLO, RN, Sandor Wyatt MD, Marquez Mccann RN, Darron Cardoso, Claudia Romeo Outcomes Met? Yes Last Modified By: LUIS Downey RN, CRNFA, ONC, Lucille 10/08/17 14:26:07 Post-Care Text: The patient is free from signs and symptoms of injury caused by extraneous objects Allergy Information FT Pre-Care Text: Verifies allergies Entry 1 Allergies Reviewed? Yes Allergies Reviewed Self/Patient With Outcomes Met? Yes Last Modified By: LUIS Downey RN, CRNFA, ONC, Lucille 10/08/17 14:19:18 Post-Care Text: The patient received appropriate medication(s) safely administered during the perioperative period Surgical Procedures FT Entry 1 Procedure Description Procedure CYST LESION REMOVAL Modifiers . GENERAL ANES Surgeon Description I AND D AND IRRIGATION LEFT LOWER BACK ABCESS 10 X 15 CM Primary Procedure Yes Primary Surgeon Sandor DC, Jose M Camilo Start 10/08/17 14:25:00 Stop 10/08/17 14:39:00 Anesthesia Type General Surgical Service General Wound Class 4 - Dirty Last Modified By: LUIS Downey RN, CRNFA, ONC, Lucille 10/08/17 14:47:02 General Case Data FT Pre-Care Text: Classifies surgical wound, implements aseptic technique, initiates traffic control Entry 1 Case Information OR OR 6 FT Case Level Level 2 Wound Class 4 - Dirty Specialty General ASA Class 2 Preop Diagnosis ABCESS LOWER BACK Postop Same As Preop Yes Postop Diagnosis ABCESS LOWER BACK Outcomes Met? Yes Last Modified By: LUIS Downey RN, CRNFA, ONC, Lucille 10/08/17 14:51:59 Post-Care Text: The patient is free from signs and symptoms of infection Skin Assessment (Pre Procedure) FT Pre-Care Text: Implements protective measures to prevent skin/ tissue injury due to thermal or mechanical sources Evaluates for signs and symptoms of physical injury to skin and tissue Entry 1 Skin Integrity Intact, [place], Warm, and Skin Abnormality Yes Dry Abnormality Location LEFT LOWER BACK Abnormality Type RED AND SWELLING Outcomes Met? Yes Last Modified By: LUIS Downey RN, PHONG MATTHEWS, [facility] 10/08/17 14:30:33 Post-Care Text: The patient is free from signs and symptoms of injury caused by extraneous objects Patient Positioning FT Pre-Care Text: Identifies physical alterations that require additional precautions for procedure-specific positioning, verifies presence of prosthetics or corrective devices, positions the patient, evaluates the patient for signs and symptoms of injury as a result of positioning Entry 1 Procedure CYST LESION REMOVAL Body Position Lateral, left side up GENERAL ANES(.) Feet Uncrossed? Yes Left Arm Position Secured Across Chest Right Arm Position Extended on Padded Arm Left Leg Position Extended Board Right Leg Position Extended Positioning Device Safety Strap, Pillow Under Head Large, Axillary Roll, Quinteros Bag Large (vac pac) Press Points Checked Yes By Darron Zayas RN, Claudia Romeo Weisenburger BSN, RN, Yoselin Outcomes Met? Yes Last Modified By: Shayan THOMPSON, CNOR, CASSIE, ONC, Sharmaine 10/08/17 14:20:39 Post-Care Text: The patient is free from signs and symptoms of injury related to positioning Patient Care Devices FT Pre-Care Text: Implements protective measures to prevent skin/ tissue injury due to thermal or mechanical sources Entry 1 Entry 2 Entry 3 Equipment Type CAUTERY UNIT[F] MONITOR CHARGE SURGERY INTERPULSE[F] [F] Equipment Number [id number] Equipment Setting Outcomes Met? Yes Yes Yes Last Modified By: Shayan THOMPSON, CNOR, SIDDHARTHA, Shayan RN, CNOR, CRNFA, Shayan RN, CNOR, CRNANDAA, ONC, Sharmaine 10/08/17 ONC, Sharmaine 10/08/17 ONC, [facility] 10/08/17 14:22:12 14:22:12 14:31:18 Entry 4 Equipment Type MISTRAL FORCED AIR WARMING SYSTEM UNIT[F] Equipment Number [id number] Equipment Setting Outcomes Met? Yes Last Modified By: Shayan THOMPSON, ANTHONYOR, CASSIE, ONC, [facility] 10/08/17 14:36:01 Post-Care Text: The patient is free from signs and symptoms of injury caused by extraneous objects Transport To OR FT Pre-Care Text: Transports according to individual needs. Evaluates for signs and symptoms of skin and tissue injury as a result of transfer or transport Entry 1 Via Ambulatory By Darron Zayas RN Safety Precautions N/A Outcomes Met? Yes Last Modified By: LUIS Downey RN, PHONG MATTHEWS Lucille 10/08/17 14:20:45 Post-Care Text: The patient is free from signs and symptoms of injury related to transfer/transport Counts Verification FT Pre-Care Text: Performs required counts Entry 1 Procedure(s) CYST LESION REMOVAL Type Initial GENERAL ANES(.) Items Instruments Status Correct Time 10/08/17 14:18:00 By Junior Contreras CST, Weisenburger BSN, Yoselin THOMPSON Outcomes Met? Yes Last Modified By: LUIS Downey RN, CRNFA, ONC, Lucille 10/08/17 14:21:19 Post-Care Text: The patient is free from signs and symptoms of injury caused by extraneous objects Skin Prep FT Pre-Care Text: Performs skin preparations Entry 1 Procedure CYST LESION REMOVAL Prep Area LOWER LEFT BACK GENERAL ANES(.) Prep Agents Chloraprep/Dry Prior to Draping Hair Removal Methods Not Indicated By Darron Zayas RN Outcomes Met? Yes Last Modified By: LUIS Downey RN, CRNFA, ONC, Lucille 10/08/17 14:26:30 Post-Care Text: The patient is free from signs and symptoms of infection Departure From OR FT Pre-Care Text: Transports according to individual needs. Evaluates for signs and symptoms of skin and tissue injury as a result of transfer or transport. Entry 1 Via Cart Safety Precautions Patient Discharged Directly From OR PostOp Destination PACU Transported By Darron Zayas RN Patient Status Stable Skin. Condition Intact, [place], Warm, and Description EXCEPT FOR OPERATIVE Dry AREA Airway Maintenance Oxygen in Use? Yes Flow Rate 6 Outcomes Met? Yes Last Modified By: LUIS Downey RN, CRNFA, ONC, Lucille 10/08/17 14:33:05 Post-Care Text: The patient is free from signs and symptoms of injury related to transfer/transport Dressing/Packing FT Pre-Care Text: Administers care to wound sites Entry 1 Entry 2 Type Packing Dressing Items DRESSING KERLIX 4` X DRESSING ABDOMINAL 8` X 4`[F] 10`[F] Site and Details LEFT LOWER BACK, LEFT LOWER BACK, FOAM BETADINE TAPE , BETADINE Outcomes Met? Yes Yes Last Modified By: LUIS Downey RN, CASSIE, LUIS Downey RN, CRNFA, ONC, Lucille 10/08/17 PHONG [facility] 10/08/17 14:38:26 14:38:26 Post-Care Text: The patient is free from signs and symptoms of infection Medication Administration FT Pre-Care Text: Verifies allergies, administers prescribed medications and solutions, administers prescribed antibiotic therapy and immunizing agents as ordered, evaluates response to medications Administers prescribed medications and solutions Entry 1 Expiration Date Yes Outcomes Met? Yes Verified Last Modified By: LUIS Downey RN, CRNFA, ONC, [facility] 10/08/17 14:21:34 Post-Care Text: The patient received appropriate medication(s) safely administered during the perioperative period For [facility] please see scanned medication reconcilliation form for medications used at the field during the procedure. Cultures and Specimens FT Pre-Care Text: Manages specimen handling and disposition Manages culture specimen collection Entry 1 Cultures Ordered Yes Culture Disposition Lab Culture Source LEFT LOWER BACK Frozen Section Times Outcomes Met? Yes Last Modified By: LUIS Downey RN, CRNFA, ONC [facility] 10/08/17 14:32:08 Post-Care Text: The patient is free from signs and symptoms of injury caused by extraneous objects The patient is free from signs and symptoms of infection Temperature Control Entry 1 Temperature Control BLANKET MISTRAL AIR Quantity 1 Aid PLUS LOWER BODY [[id number]][F] Fluid/[place] [facility] Mistral warming system Body Site Lower anterior torso Last Modified By: LUIS Downey RN, CRNFA, ONC [facility] 10/08/17 14:36:32 Case Comments Finalized By: Vi Ambriz CST Document Signatures Signed By: LUIS Donwey RN, CRNFA, ONC [facility] 10/08/17 14:52 Vi Ambriz CST 10/12/17 11:18 Normal [facility] Progress Note-Physicianon Progress Note-Physician Patient: WILLOW WILKES Age: 27 years Sex: Male : 1990 Associated Diagnoses: None Author: Julian Cyr M.D Subjective Doing better overall since I&D. Culture with MSSA. Health Status Allergies: Allergic Reactions (Selected)No Known Allergies Current medications: Medications (10) ActiveScheduled: (4)ceFAZolin 2 gram 50 mL, IV Piggyback, l4qzdimcdjar sodium 100 mg Cap [F] 100 mg 1 cap(s), Oral, BIDnicotine 14 mg/24 hr Transderm ER Film [F] 14 mg 1 patch(es), TransDermal, DailySodium Chloride 0.9% 500 mL 500 mL, IVContinuous: (1)Lactated Ringers 1,000 mL 1,000 mL, IV, 20 mL/hrPRN: (5)acetaminophen 325 mg Tab UD [F] 650 mg 2 tab(s), Oral, e1xeuclepgotr 0.083% Inh Mary 3 mL [F] 2.5 mg 3 mL, NEB, v9hngjfmrgbxo CFC free 90 mcg/inh Inh Aer w/Adapt 8.5 gm [F] 180 microgram 2 puff(s), Inhalation, g4iblyjefsxq 2 mg/mL preservative-free SOLN [F] 4 mg 2 mL, IV Push, v3ojlxfwatvjypy 2 mg/mL Inj [F] 4 mg 2 mL, IV Push, q6hr Problem list: All ProblemsAt risk for falls / SNOMED CT 286583483 / PossibleProblem added when Risk for Falls Careplan was initiated.Impaired skin integrity / SNOMED CT 10333601 / ConfirmedProblem added on documentation of skin impairments.Smoker / IMO [id number] / ConfirmedAdded secondary to documentation in Social History. Objective Vitals Signs (last 24 hrs) Last Charted Minimum MaximumTemp 36.6 (OCT 12 11:00) 36.5 (OCT 11:57) 36.6 (OCT 12 07:00)Heart Rate 72 (OCT 12 11:00) 72 (OCT 12 11:00) 82 (OCT 11 23:00)Resp Rate 16 (OCT 12 11:00) 16 (OCT 11:57) 17 (OCT 11 23:00)SBP 106 (OCT 12 11:00) 100 (OCT 12 06:45) 109 (OCT 11 23:00)DBP 74 (OCT 12 11:00) L 53 (OCT 11:57) 80 (OCT 12 06:45)MAP 70 (OCT 11:57) 70 (TERESA 01 19:57) 70 (OCT 11 19:57)SpO2 98 (OCT 12 11:00) 97 (OCT 11 19:58) 98 (OCT 11 23:00) General: Alert and oriented, Mild distress. Neck: Supple. Respiratory: Lungs are clear to auscultation. Cardiovascular: Normal rate, Regular rhythm, No murmur. Gastrointestinal: Soft, Non-tender, Non-distended. Integumentary: back with wound vac, tender around site. . Review / Management Results review: Lab results 10/10/2017 06:43 EST WBC 9.4 E9/L Hgb 10.8 gm/dL LOW Platelet 497.0 E9/L 10/09/2017 06:41 EST WBC 15.4 E9/L HI 10/08/2017 06:19 EST WBC 15.9 E9/L HI BUN 7 mg/dL Creatinine 0.8 mg/dL 10/07/2017 07:43 EST WBC 19.7 E9/L HI 10/05/2017 23:08 EST WBC 19.7 E9/L HI . Impression and Plan Diagnosis: MSSA Back abscess. Course: Progressing as expected. Orders PO Keflex on dc for 2 additional weeks.Follow up in 2-3 weeks. Wound care per surgery.. Normal [facility] Comment on above: Result Comment: Elec tronically Signed By: Julian Cyr M.D.pretty\\Date and Time Signed: 10/12/17 16:12 EST Progress Note-Physician Patient: WILLOW WILKES Age: 27 years Sex: Male : 1990 Associated Diagnoses: None Author: Sushant DC, Juan Pablo Basic Information 27-year-old male with no significant past medical history presented with complaints of left flank and left lower back pain of about 2-3 weeks duration associated with fever, chills and nausea and was admitted with sepsis present on admission, left flank/left lower back cellulitis with abscess formation, hyponatremia, leukocytosis, elevated LFTs. He is status post incision and drainage with wound VAC application on 10/08/17. Subjective Seen and examined. He offers no complaints today. He feels better. He denies any fever. Health Status Allergies: Allergic Reactions (Selected)No Known Allergies Current medications: Medications (10) ActiveScheduled: (4)ceFAZolin 2 gram 50 mL, IV Piggyback, e2ttyuwhmjtk sodium 100 mg Cap [F] 100 mg 1 cap(s), Oral, BIDnicotine 14 mg/24 hr Transderm ER Film [F] 14 mg 1 patch(es), TransDermal, DailySodium Chloride 0.9% 500 mL 500 mL, IVContinuous: (1)Lactated Ringers 1,000 mL 1,000 mL, IV, 20 mL/hrPRN: (5)acetaminophen 325 mg Tab UD [F] 650 mg 2 tab(s), Oral, h0svkzkmlggzh 0.083% Inh Mary 3 mL [F] 2.5 mg 3 mL, NEB, m6cyqdbckegpi CFC free 90 mcg/inh Inh Aer w/Adapt 8.5 gm [F] 180 microgram 2 puff(s), Inhalation, v0ifjnrnfpsx 2 mg/mL preservative-free SOLN [F] 4 mg 2 mL, IV Push, m0dahjbnrmmaogm 2 mg/mL Inj [F] 4 mg 2 mL, IV Push, q6hr Problem list: All ProblemsImpaired skin integrity / SNOMED CT 84521781 / ConfirmedProblem added on documentation of skin impairments.At risk for falls / SNOMED CT 704437221 / PossibleProblem added when Risk for Falls Careplan was initiated.Smoker / IMO [id number] / ConfirmedAdded secondary to documentation in Social History.Resolved: Asthma / SNOMED CT 215830298 Histories Past Medical History: ResolvedAsthma ([id number]): Resolved. Family History: AsthmaMother Procedure history: Incision AND drainage (SNOMED CT 181642649) performed by Jose M Patten MD on 10/08/2017 at 27 Years.Comments:10/08/2017 19:32 - [place] RN, Julieta IGLESIAS AND Musa AND IRRIGATION LEFT LOWER BACK ABCESS 10 X 15 CMIncision AND drainage (SNOMED CT 219131445).Comments:10/06/2017 06:12 - Philippe Cabezas RN right hand Social History Social & Psychosocial HobuozPtpkibr92/26/2017 Risk Assessment: Denies Alcohol UseSubstance Abuse10/05/2017 Risk Assessment: Denies Substance LcpbfBrruzmg79/26/2017 Risk Assessment: High Risk10/05/2017 Use: Current Every Day Smoker Type: Cigarettes Tobacco use per day: 0.5. Objective VS/Measurements: Vitals Signs (last 24 hrs) Last Charted Minimum MaximumTemp 36.6 (OCT 12 07:00) 36.5 (OCT 11 19:57) 36.9 (OCT 11 15:00)Heart Rate 80 (OCT 12 07:00) 77 (OCT 11 19:58) 91 (OCT 11 15:00)Resp Rate 16 (OCT 12 07:00) 16 (OCT 11 15:00) 17 (OCT 11 23:00)SBP 100 (OCT 12 06:45) 100 (OCT 12 06:45) 117 (OCT 11 15:00)DBP 80 (OCT 12 06:45) L 53 (OCT 11 19:57) 80 (OCT 12 06:45)MAP 70 (OCT 11 19:57) 70 (OCT 11 19:57) 70 (OCT 11 19:57)SpO2 98 (OCT 11 23:00) 97 (OCT 11 19:58) 98 (OCT 11 23:00). Vitals Signs (last 24 hrs) Last Charted Minimum MaximumTemp 36.6 (OCT 12 07:00) 36.5 (OCT 11 19:57) 36.9 (OCT 11 15:00)Heart Rate 80 (OCT 12 07:00) 77 (OCT 11 19:58) 91 (OCT 11 15:00)Resp Rate 16 (OCT 12 07:00) 16 (OCT 11 15:00) 17 (OCT 11 23:00)SBP 100 (OCT 12 06:45) 100 (OCT 12 06:45) 117 (OCT 11 15:00)DBP 80 (OCT 12 06:45) L 53 (OCT 11 19:57) 80 (OCT 12 06:45)MAP 70 (OCT 11 19:57) 70 (OCT 11 19:57) 70 (OCT 11 19:57)SpO2 98 (OCT 11 23:00) 97 (OCT 11 19:58) 98 (OCT 11 23:00) General: Alert and oriented, No acute distress. Eye: Pupils are equal, round and reactive to light, Extraocular movements are intact. HENT: Normocephalic. Neck: Supple. Respiratory: Lungs are clear to auscultation, Respirations are non-labored. Cardiovascular: Normal rate, Regular rhythm. Gastrointestinal: Soft, Non-distended, Normal bowel sounds. Musculoskeletal Normal range of motion. Left flank and left paralumbar markedly reduced redness. Wound Vac in place and draining serous fluid.. Neurologic: Alert, Oriented. Psychiatric: Cooperative, Appropriate mood & affect. Review / Management Results review Diagnostic Findings: * Final Report *Reason For ExamOther (please specify)POWERSCRIBE REPORTIMPRESSION: PROBABLE 10.3 X 5.3 X 3.4 CM ABSCESS WITHIN THE SOFT TISSUES OF THELOWER BACK AT THE AREA OF CLINICAL CONCERN.CLINICAL HISTORY: Swelling and erythema lower back.COMPARISON: CT abdomen and pelvis without contrast 10/05/2017.TECHNIQUE: Transabdominal ultrasound of the lower back was performed in the area ofclinical concern.FINDINGS: An ovoid complex fluid collection within the superficial subcutaneous tissues of thelower back to the left of midline measuring 10.3 x 5.3 x 3.4 cm (sagittal, transverseand AP dimensions respectively) is highly suspicious for an abscess, approximately1.5 cm deep to the skin surface.Signature Line FINAL REPORT Dictated: 10/08/2017 8:58 am Yury Delarosa MDigned (Electronic Signature): 10/08/2017 8:58 amSigned by: Yury Delarosa MDTranscribed by: JENNIFFER Technologist: CHUCK TODDThijoleen document has an imageResult type: US Abdomen, LimitedResult date: October 07, 2017 18:20 ESTResult status: Auth (Verified)Result title: US Abdomen, LimitedPerformed by: Yury Delarosa MD on October 08, 2017 08:58 ESTVerified by: Yury Delarosa MD on October 08, 2017 08:[address] [facility]: [id number], Abdi Kike [place], Inpatient, 10/05/2017 - . Condition: Fair. Impression and Plan 27-year-old male with no significant past medical history presented with complaints of left flank and left lower back pain of about 2-3 weeks duration associated with fever, chills and nausea and was admitted with sepsis present on admission, left flank/left lower back cellulitis with abscess formation, hyponatremia, leukocytosis, elevated LFTs.- Sepsis?present on admission?secondary to left flank/left lower back cellulitis. Sepsis has resolved. Treating underlying disease process. Blood cultures so far not isolating any organisms. Wound cultures isolated MSSA.-Left flank/left lower back MSSA cellulitis with abscess formation?Continue on IV cefazolin 2 g every 8 hours. Infectious disease specialist following. And will transition to oral Keflex at discharge. He is status post postoperative day #4?incision and drainage with wound VAC application.. Wound VAC to be changed on 10/12/17. - Hyponatremia? Resolved. - Leukocytosis?secondary to above infectious process. Resolved. - Elevated LFTs?maybe secondary to above infectious process. Hepatitis C antibody test pending. - Tobacco dependence?advised on cessation. Continue nicotine patch.- DVT prophylaxis?early ambulation.Disposition: Home soon pending Wound Vac change today. Normal [facility] Comment on above: Result Comment: Elec tronically Signed By: Juan Pablo Canchola MD\\.br\\Date and Time Signed: 10/12/17 11:24 EST Progress Note-Physicianon Progress Note-Physician Patient: WILLOW WILKES Age: 27 years Sex: Male : 1990 Associated Diagnoses: None Author: Juan Pablo Canchola MD Basic Information 27-year-old male with no significant past medical history presented with complaints of left flank and left lower back pain of about 2-3 weeks duration associated with fever, chills and nausea and was admitted with sepsis present on admission, left flank/left lower back cellulitis with abscess formation, hyponatremia, leukocytosis, elevated LFTs. He is status post incision and drainage with wound VAC application on 10/08/17. Subjective Seen and examined. He offers no complaints today. He feels better. Health Status Allergies: Allergic Reactions (Selected)No Known Allergies Current medications: Medications (11) ActiveScheduled: (4)ceFAZolin 2 gram 50 mL, IV Piggyback, e4zpulyhwgbe sodium 100 mg Cap [F] 100 mg 1 cap(s), Oral, BIDnicotine 14 mg/24 hr Transderm ER Film [F] 14 mg 1 patch(es), TransDermal, DailySodium Chloride 0.9% 500 mL 500 mL, IVContinuous: (1)Lactated Ringers 1,000 mL 1,000 mL, IV, 20 mL/hrPRN: (6)acetaminophen 325 mg Tab UD [F] 650 mg 2 tab(s), Oral, b0beausyaoric 0.083% Inh Mary 3 mL [F] 2.5 mg 3 mL, NEB, d2uwglepiccpt CFC free 90 mcg/inh Inh Aer w/Adapt 8.5 gm [F] 180 microgram 2 puff(s), Inhalation, d0dbzgehwmtic 30 mg/mL Inj 1 mL [F] 30 mg 1 mL, IV, t1zzfwnunxnh 10 mg/mL preservative-free SOLN [F] 4 mg 0.4 mL, IV Push, a7darfkfjlsrkau 2 mg/mL Inj [F] 4 mg 2 mL, IV Push, q6hr Problem list: All ProblemsImpaired skin integrity / SNOMED CT 18423727 / ConfirmedProblem added on documentation of skin impairments.Smoker / IMO [id number] / ConfirmedAdded secondary to documentation in Social History.Resolved: Asthma / SNOMED CT 785361932 Histories Past Medical History: ResolvedAsthma ([id number]): Resolved. Family History: AsthmaMother Procedure history: Incision AND drainage (SNOMED CT 684243248) performed by Jose M Patten MD on 10/08/2017 at 27 Years.Comments:10/08/2017 19:32 - Magda THOMPSON, Julieta IGLESIAS AND D AND IRRIGATION LEFT LOWER BACK ABCESS 10 X 15 CMIncision AND drainage (SNOMED CT 256502995).Comments:10/06/2017 06:12 - Philippe Cabezas RN right hand Social History Social & Psychosocial PxtcgpAgxcvzi39/26/2017 Risk Assessment: Denies Alcohol UseSubstance Abuse10/05/2017 Risk Assessment: Denies Substance LtzorAxugqyj23/26/2017 Risk Assessment: High Risk10/05/2017 Use: Current Every Day Smoker Type: Cigarettes Tobacco use per day: 0.5. Objective VS/Measurements: Vitals Signs (last 24 hrs) Last Charted Minimum MaximumTemp 36.6 (OCT 11 08:00) 36.6 (OCT 11:34) 37 (OCT 10 20:12)Heart Rate 73 (OCT 11 08:00) 73 (OCT 11 08:00) H 101 (OCT 10 16:07)Resp Rate 16 (OCT 11 08:00) 16 (OCT 10 20:12) 18 (OCT 10 16:07)SBP 103 (OCT 11 08:00) 102 (OCT 10 23:33) 127 (OCT 10 16:06)DBP 68 (OCT 11 08:00) 60 (OCT 10 23:33) 74 (OCT 11:24)MAP 85 (OCT 10 20:12) 85 (OCT 10 20:12) 89 (OCT 10 16:06)SpO2 97 (OCT 11:) 96 (OCT 10 16:07) 97 (OCT 10 20:13). Vitals Signs (last 24 hrs) Last Charted Minimum MaximumTemp 36.6 (OCT 11 08:00) 36.6 (OCT 11:34) 37 (OCT 10 20:12)Heart Rate 73 (OCT 11 08:00) 73 (OCT 11 08:00) H 101 (OCT 10 16:07)Resp Rate 16 (OCT 11 08:00) 16 (OCT 10 20:12) 18 (OCT 10 16:07)SBP 103 (OCT 11 08:00) 102 (OCT 10 23:33) 127 (OCT 10 16:06)DBP 68 (OCT 11 08:00) 60 (OCT 10 23:33) 74 (OCT 11:24)MAP 85 (OCT 10 20:12) 85 (OCT 10 20:12) 89 (OCT 10 16:06)SpO2 97 (OCT 11:) 96 (OCT 10 16:07) 97 (OCT 10 20:13) General: Alert and oriented, No acute distress. Eye: Pupils are equal, round and reactive to light, Extraocular movements are intact. HENT: Normocephalic. Neck: Supple. Respiratory: Lungs are clear to auscultation, Respirations are non-labored. Cardiovascular: Normal rate, Regular rhythm. Gastrointestinal: Soft, Non-distended, Normal bowel sounds. Musculoskeletal Normal range of motion. Left flank and left paralumbar markedly reduced redness. Wound Vac in place and draining serous fluid.. Neurologic: Alert, Oriented. Psychiatric: Cooperative, Appropriate mood & affect. Review / Management Results review Diagnostic Findings: * Final Report *Reason For ExamOther (please specify)POWERSCRIBE REPORTIMPRESSION: PROBABLE 10.3 X 5.3 X 3.4 CM ABSCESS WITHIN THE SOFT TISSUES OF THELOWER BACK AT THE AREA OF CLINICAL CONCERN.CLINICAL HISTORY: Swelling and erythema lower back.COMPARISON: CT abdomen and pelvis without contrast 10/05/2017.TECHNIQUE: Transabdominal ultrasound of the lower back was performed in the area ofclinical concern.FINDINGS: An ovoid complex fluid collection within the superficial subcutaneous tissues of thelower back to the left of midline measuring 10.3 x 5.3 x 3.4 cm (sagittal, transverseand AP dimensions respectively) is highly suspicious for an abscess, approximately1.5 cm deep to the skin surface.Signature Line FINAL REPORT Dictated: 10/08/2017 8:58 am Yury Delarosa MDigned (Electronic Signature): 10/08/2017 8:58 amSigned by: Yury Delarosa MDTranscribed by: JENNIFFER Technologist: CHUCK TODDThis document has an imageResult type: US Abdomen, LimitedResult date: October 07, 2017 18:20 ESTResult status: Auth (Verified)Result title: US Abdomen, LimitedPerformed by: Yury Delarosa MD on October 08, 2017 08:58 ESTVerified by: Yury Delarosa MD on October 08, 2017 08:58 [facility] info: [id number], Abdi Yauco, Inpatient, 10/05/2017 - . Condition: Fair. Impression and Plan 27-year-old male with no significant past medical history presented with complaints of left flank and left lower back pain of about 2-3 weeks duration associated with fever, chills and nausea and was admitted with sepsis present on admission, left flank/left lower back cellulitis with abscess formation, hyponatremia, leukocytosis, elevated LFTs.- Sepsis?present on admission?secondary to left flank/left lower back cellulitis. Sepsis has resolved. Treating underlying disease process. Blood cultures so far not isolating any organisms. Wound cultures isolated MSSA.-Left flank/left lower back MSSA cellulitis with abscess formation?Continue on IV cefazolin 2 g every 8 hours. Infectious disease specialist following. And will transition to oral Keflex. He is status post postoperative day #3?incision and drainage with wound VAC application.. Wound VAC to be changed on 10/12/17. - Hyponatremia? Resolved. - Leukocytosis?secondary to above infectious process. Resolved. - Elevated LFTs?maybe secondary to above infectious process. Hepatitis C antibody test pending. - Tobacco dependence?advised on cessation. Continue nicotine patch.- DVT prophylaxis?early ambulation.Disposition: Home soon pending Wound Vac change on 10/12/17 Normal [facility] Comment on above: Result Comment: Elec tronically Signed By: Sushant DC, Juan Pablo\\.br\\Date and Time Signed: 10/11/17 12:43 EST Auto Diffon 10-10-2017 Basophils Auto #/vol (Bld) 0.1 E9/L Normal 0.0-0.2 [facility] Comment on above: Order Comment: Order Added by Discern Expert. Performed By: #### 1 [id number], 3267297, 77425854, 4794119, 53169597, 9556685, 5067914 ####[facility] [address] [place] [address] Basophils Auto #/vol (Bld) 0.9 % Normal 0.0-2.0 [facility] Comment on above: Order Comment: Order Added by Discern Expert. Performed By: #### 1 3862929, 6920798, 68521990, 3034482, 78854966, 8057557, 0438947 ####[facility] [address] [place] [address] Eosinophils 0.7 E9/L High 0.0-0.5 [facility] Comment on above: Order Comment: Order Added by Discern Expert. Performed By: #### 1 2693528, 7329938, 78309406, 8235937, 06271550, 0308983, 5775975 ####[facility] [address] [place] [address] Eosinophils/100 leukocytes 7.4 % Normal 0.0-8.0 [facility] Comment on above: Order Comment: Order Added by Discern Expert. Performed By: #### 1 4139371, 1609761, 56906619, 1820475, 88700403, 4805378, 2838875 ####[facility] [address] [place] [address] Lymphocytes 2.4 E9/L Normal 1.0-4.0 [facility] Comment on above: Order Comment: Order Added by Margo Expert. Performed By: #### 1 7666049, 8260530, 09755913, 2619088, 68113154, 8945812, 4519211 ####[facility] [address] [place] [address] Lymphocytes/100 leukocytes 25.6 % Normal 14.0-50.0 [facility] Comment on above: Order Comment: Order Added by Margo Expert. Performed By: #### 1 1854737, 2360200, 46180990, 3834856, 60572025, 4385856, 0709342 ####[facility] [address] [place] [address] Monocytes 0.9 E9/L Normal 0.2-1.0 [facility] Comment on above: Order Comment: Order Added by Margo Expert. Performed By: #### 1 9494171, 7058704, 82218823, 0448534, 54118149, 8384588, 2228316 ####[facility] [address] [place] [address] Monocytes/100 leukocytes 9.9 % Normal 4.0-14.0 [facility] Comment on above: Order Comment: Order Added by Margo Expert. Performed By: #### 1 5538768, 6330252, 34378743, 9563734, 24275324, 2234806, 3810278 ####[facility] [address] [place] [address] Neutrophils 5.3 E9/L Normal 2.0-7.5 [facility] Comment on above: Order Comment: Order Added by Discern Expert. Performed By: #### 1 0417802, 2011969, 62110627, 8719708, 69896098, 6832697, 5693043 ####[facility] [address] [place] [address] Neutrophils/100 leukocytes 56.2 % Normal 36.0-75.0 [facility] Comment on above: Order Comment: Order Added by Discern Expert. Performed By: #### 1 2503656, 3140915, 31495085, 5635297, 43928439, 4151124, 0261746 ####[facility] [address] [place] [address] C Woundon 10-10-2017 Wound Culture MicrobiologyPROCEDUR E: Wound Culture [R1] Abscess BODY SITE: BackCOLLECTED DATE/TIME: 10/08/2017 14:44 EST RECEIVED DATE/TIME: 10/08/2017 15:02 ESTSTART DATE/TIME: 10/08/2017 15:02 EST FREE TEXT SOURCE:Sandor DC, Jose M Patten MD, Jose M CamiloFINAL REPORTSFinal Report [] Verified Date/Time: 10/10/2017 08:31 EST3+ Staphylococcus aureusSTAINSGram Stain Report [] Verified Date/Time: 10/09/2017 06:22 EST3+ White Blood Cells 3+ Gram Positive CocciSUSCEPTIBILITY RESULTS LEGEND: S=Susceptible, N/R=Not Reported, Blank=Data not available, or drug notadvisable or tested, I=Intermediate, ESBL=Extended spectrum beta-lactamase,R=Resistant, TFG=Thymidine-dependent strain, JOSH=Beta-lactamase positive,LARISA=mcg/m;(mg/L), S*=Predicted susceptible interp, R*=Predicted resistant interp SAAntibiotic LARISA Dilutn LARISA InterpAmoxicillin/ <=4/2 SClavulanateAmpicillin >8 BLACAmpicillin/ <=8/4 SSulbactamAzithromycin <=2 SCefazolin <=8 SCeftaroline <=0.5 SCiprofloxacin <=1 SClindamycin <=0.25 SDaptomycin <=1 SErythromycin <=0.5 SGentamicin <=4 SLevofloxacin <=1 SLinezolid <=2 SNitrofurantoin <=32Oxacillin 1 SPenicillin >8 BLACRifampin <=1 STetracycline <=4 STrimethoprim/ <=0.5/9.5 SSulfaVancomycin 1 SPerforming LocationsR1: This test was performed at: [facility], [address] [place] [address], [address] , Normal [facility] Comment on above: Performed By: #### 1 3470834, 8347031, 36806027, 0093741, 02947003, 8366876, 8456029 ####[address] [place] [address] CBC w/ Auto Diffon 7 Erythrocyte distribution width Auto Ratio (RBC) 13.3 % Normal 10.9-14.2 [facility] Comment on above: Performed By: #### 1 4665625, 2833406, 33607930, 0589706, 56256990, 4933313, 3732211 ####[address] [place] [address] Erythrocytes (RBC) 3.4 E12/L Low 4.3-5.9 [facility] Comment on above: Performed By: #### 1 4964860, 9680538, 31080174, 5312746, 29090748, 0995877, 8744748 ####[facility] [address] [place] [address] Hematocrit (HCT) 31.1 % Low 37.7-49.0 [facility] Comment on above: Performed By: #### 1 4630942, 5078547, 67650365, 0375557, 72020628, 6251185, 9127706 ####[facility] [address] [place] [address] Hemoglobin mass conc (Bld) 10.8 g/dL Low 13.5-17.5 [facility] Comment on above: Performed By: #### 1 4673843, 6873828, 90425856, 9053129, 94383217, 4324183, 6868131 ####[facility] [address] [place] [address] MCH 31.9 pg Normal 27.0-34.0 [facility] Comment on above: Performed By: #### 1 0792709, 8880195, 03693299, 0243809, 19121384, 0650886, 4454566 ####[address] [place] [address] MCHC mass conc (RBC) 34.6 g/dL Normal 31.4-39.3 [facility] Comment on above: Performed By: #### 1 9459083, 9125729, 04474480, 6482232, 82227951, 6068554, 5720379 ####[address] [place] [address] MCV 92.1 fL Normal 80.0-100.0 [facility] Comment on above: Performed By: #### 1 0452216, 4466520, 01336430, 9557379, 00351236, 0221575, 1887366 ####[facility] [address] [place] [address] Platelet mean volume (PMV) 6.8 fL Normal 6.4-10.8 [facility] Comment on above: Performed By: #### 1 7923781, 1349837, 11503398, 6591898, 01564300, 6302176, 2543769 ####[facility] [address] [place] [address] Platelets 497.0 E9/L Normal 150.0-500. 0 [facility] Comment on above: Performed By: #### 1 8404940, 2694856, 22554939, 0859548, 61170692, 0627732, 0559741 ####[facility] [address] [place] [address] WBC (Leukocytes) 9.4 E9/L Normal 4.0-11.0 [facility] Comment on above: Result Comment: Slid e reviewed by DK. Performed By: #### 1 5185239, 3874130, 23954128, 8339929, 35305910, 1105683, 3327082 ####[facility] [address] [place] [address] Consultation Noteon 10-10-20 17 Consultation Note HOSPITAL REGULATIONS : ALL Positive Important Negative Findings Shall Be Recorded.Date of 10/08/2017Consultation:Virgen Benavides D.O.Physician:Consulting Jose M Patten MD, FACSPhysician:REASON FOR CONSULTATION: Back abscess.HISTORY OF PRESENT ILLNESS: This is a 27 year old white male who wasadmitted three days ago with complaints of fever, chills, and backdiscomfort. He states he has been having ongoing pain in his back forapproximately two weeks. Computerized tomography scan done at the time ofadmission showed an area of cellulitis and phlegmon in the lower back andflanks. The patient has had a significant leukocytosis with initialfevers. He has had no significant improvement over the past 72 hours withI.V. antibiotics. Ultrasound of the area today shows an area of probableabscess. Request was made for drainage of this.The patient denies any previous history of similar complaints. He stateshe did have an abscess in his hand in the past. He denies any recenttrauma or injury or break in the skin in this area. He denies any druguse. He does have multiple tattoos other places on his body.PAST MEDICAL HISTORY: Past medical history is significant for asthma.PAST SURGICAL HISTORY: Past surgical history is significant for the handabscess in the past.PHYSICAL EXAMINATION: This is a well developed, well nourished, thin whitemale in no obvious distress. Focused examination shows an area of erythemaand tenderness in his mid-lower back a little to the right of midline.There is suggestion of fluctuance in this area; however, it is very tenderto palpation. This measures approximately 8 x 12 cm. in size.IMPRESSION: Probable back abscess.PLAN:1. I.V. hydration.2. Incision and drainage under anesthesia today.Jose M Patten MD, FACSaekDictated: 10/08/2017 #[id number]: 10/09/2017 #[id number]: Luis F Benavides D.O.Myra Middleton M.D.Jose M Patten MD, FACS [facility] Comment on above: Result Comment: Elec tronically Signed By: Sandor DC, Jose M Camilo\\.br\\Date and Time Signed: 10/10/17 16:08 EST Interdisciplinary Note - Brett e Manageron 10-10-2017 Interdisciplinary Note - Senior Principal Spoke to Dr. Canchola who anticipates pt. to stay till Wednesday. I spoke to pt. regarding [facility] and a home wound vac and he is agreable and understands the homebound status. Referral sent to resource center. [facility] Interdisciplinary Note - Nut ritionon 10-10-2017 Interdisciplinary Note - Nutrition Pt rescreened for nutritional risk factors d/t LOS. Pt with sepsis on admit, now resolved. Pt is s/p I&D of the back, wound vac in place. Nutritional assessment completed, pt educated on importance of adequate kcal, pro, fluid for wound healing. Pt with fair po intakes at this time. PO encouraged. Nutrition POC implemented. [facility] Operative Reporton 7 Operative Report Date of Surgery: 10/08/2017SURGEON: Jose M Patten MD, FACSPREOPERATIVE DIAGNOSIS: Back abscessPOSTOPERATIVE DIAGNOSIS: Back abscessOPERATION: Incision and drainage of back abscessANESTHESIA: General with localANESTHESIOLOGIST: Jose Juan Gomez D.O.INDICATIONS: This is a 27-year-old white male who presented two days agowith complaints of erythema and pain with fever, chills, associated with anarea on his mid lower back. Initial CAT scan done two days ago revealed maddi large area of cellulitis and inflammatory changes of the subcutaneoustissues of his lower back and to either flank. No abscess was noted atthat time. The patient has not significantly improved despite I.V.antibiotics although the area of erythema has reduced in size and coalescedinto a deeper erythematous fluctuant area in his mid lower back just to theright of midline. Ultrasound confirmed presence of fluid consistent withabscess in this area. Consent was obtained to proceed with incision anddrainage of this area.PROCEDURE: The patient was brought to the Operating Room and under generalanesthesia, prepped and draped in the usual sterile manner with ChloraPrep.The fluctuant area was probed with an 18 gauge needle with identificationof purulent fluid upon aspiration. A transverse incision was then madeover this fluctuant area and approximately 200 cc of purulosanguinous fluidwas aspirated. This cavity measured approximately in length 5 cm towardthe patient's feet and 10 cm cephalad and extended medially and laterallyfor an additional 4-5 cm with a depth of approximately 5-6 cm. The areawas then further irrigated out with the hydrojet suction irrigatorirrigating through an approximate liter of saline. The wound was thenfurther debrided bluntly with gauze and then gently packed withBetadine-soaked Kerlix with ABDs placed.The patient tolerated the procedure well. I was able to contact [facility] and they were able to remove the packing and place aWound VAC in the Recovery Room to further aid in healing of this largeabscess cavity. This was all tolerated well by the patient.Jose M Patten MD, FACSglsDictated: 10/08/2017 #[id number]: 10/09/2017 #[id number]: Myra Middleton M.D.Jose M Patten MD, FACS Normal [facility] Comment on above: Result Comment: Elec tronically Signed By: Sandor DC, Jose M Bishop.br\\Date and Time Signed: 10/10/17 16:08 EST Progress Note-Nurseon 2016 Acetaminophen mass conc Wound vac in place to right lower back. Surrounding skin with slight redness. No edema. Large clot noted under dressing and lodged in tubing for suction. Wound vac monitor alarming to alert suction not properly functioning. Wound vac dressing removed. Area cleansed with sterile saline. Pat dry surrounding skin. Small amount of serosanguinous draining from wound. Reapplied wound vac dressing. Attached to suction tubing. Running without any problems. Patient tolerated well. Stated, It didn't hurt as bad as it did on Wednesday. Normal [facility] Progress Note-Physicianon Progress Note-Physician Patient: WILLOW WILKES Age: 27 years Sex: Male : 1990 Associated Diagnoses: None Author: Sushant DC, [facility] Basic Information 27-year-old male with no significant past medical history presented with complaints of left flank and left lower back pain of about 2-3 weeks duration associated with fever, chills and nausea and was admitted with sepsis present on admission, left flank/left lower back cellulitis with abscess formation, hyponatremia, leukocytosis, elevated LFTs. He is status post incision and drainage with wound VAC application on 10/08/17. Subjective Seen and examined. He feels better today with reducing back pain. He denies any fever, chills, nausea or vomiting. Health Status Allergies: Allergic Reactions (Selected)No Known Allergies Current medications: Medications (11) ActiveScheduled: (4)ceFAZolin 2 gram 50 mL, IV Piggyback, v8uzkiwfsnng sodium 100 mg Cap [F] 100 mg 1 cap(s), Oral, BIDnicotine 14 mg/24 hr Transderm ER Film [F] 14 mg 1 patch(es), TransDermal, DailySodium Chloride 0.9% 500 mL 500 mL, IVContinuous: (1)Lactated Ringers 1,000 mL 1,000 mL, IV, 75 mL/hrPRN: (6)acetaminophen 325 mg Tab UD [F] 650 mg 2 tab(s), Oral, g9scqbussrtaa 0.083% Inh Mary 3 mL [F] 2.5 mg 3 mL, NEB, i8mckznredndl CFC free 90 mcg/inh Inh Aer w/Adapt 8.5 gm [F] 180 microgram 2 puff(s), Inhalation, r7ajfjkvcrtgi 30 mg/mL Inj 1 mL [F] 30 mg 1 mL, IV, u2fqxphawbge 10 mg/mL preservative-free SOLN [F] 4 mg 0.4 mL, IV Push, d3nbykswtczlpbm 2 mg/mL Inj [F] 4 mg 2 mL, IV Push, q6hr Problem list: All ProblemsImpaired skin integrity / SNOMED CT 32679864 / ConfirmedProblem added on documentation of skin impairments.Smoker / IMO [id number] / ConfirmedAdded secondary to documentation in Social History.Resolved: Asthma / SNOMED CT 463945129 Histories Past Medical History: ResolvedAsthma ([id number]): Resolved. Family History: AsthmaMother Procedure history: Incision AND drainage (SNOMED CT 842348099) performed by Jose M Patten MD on 10/08/2017 at 27 Years.Comments:10/08/2017 19:32 - Magda THOMPSON, Julieta IGLESIAS AND Musa AND IRRIGATION LEFT LOWER BACK ABCESS 10 X 15 CMIncision AND drainage (SNOMED CT 951802569).Comments:10/06/2017 06:12 - Philippe Cabezas RN right hand Social History Social & Psychosocial AmyamqOjzvxjp41/26/2017 Risk Assessment: Denies Alcohol UseSubstance Abuse10/05/2017 Risk Assessment: Denies Substance VitlyOhvlyiu93/26/2017 Risk Assessment: High Risk10/05/2017 Use: Current Every Day Smoker Type: Cigarettes Tobacco use per day: 0.5. Objective VS/Measurements: Vitals Signs (last 24 hrs) Last Charted Minimum MaximumTemp 36.8 (OCT 10 07:00) 36.5 (OCT 09 15:37) 36.8 (OCT 10 01:00)Heart Rate 77 (OCT 10:00) 77 (OCT 10:00) 94 (OCT 09 19:30)Resp Rate 18 (OCT 10:) 16 (OCT 09 17:13) 20 (OCT 10:)SBP H 147 (OCT 10 07:00) 106 (OCT 09 19:29) H 147 (OCT 10:)DBP 63 (OCT 10:) L 59 (OCT 09 19:29) 72 (OCT 10:)MAP 91 (OCT 10:) 75 (OCT 09 19:29) 91 (OCT 10:)SpO2 99 (OCT 10:) 96 (OCT 09 17:13) 99 (OCT 10:). Vitals Signs (last 24 hrs) Last Charted Minimum MaximumTemp 36.8 (OCT 10:) 36.5 (OCT 09 15:37) 36.8 (OCT 10:)Heart Rate 77 (OCT 10:) 77 (OCT 10:00) 94 (OCT 09 19:30)Resp Rate 18 (OCT 10:) 16 (OCT 09 17:13) 20 (OCT 10:)SBP H 147 (OCT 10:) 106 (OCT 09 19:29) H 147 (OCT 10:00)DBP 63 (OCT 10:00) L 59 (OCT 09 19:29) 72 (OCT 10:00)MAP 91 (OCT 10:) 75 (OCT 09 19:29) 91 (OCT 10:)SpO2 99 (OCT 10:) 96 (OCT 09 17:13) 99 (OCT 10:) General: Alert and oriented, No acute distress. Eye: Pupils are equal, round and reactive to light, Extraocular movements are intact. HENT: Normocephalic. Neck: Supple. Respiratory: Lungs are clear to auscultation, Respirations are non-labored. Cardiovascular: Normal rate, Regular rhythm. Gastrointestinal: Soft, Non-distended, Normal bowel sounds. Musculoskeletal Normal range of motion. Left flank and left paralumbar markedly reduced redness. Wound Vac in place and draining serous fluid.. Neurologic: Alert, Oriented. Psychiatric: Cooperative, Appropriate mood & affect. Review / Management Results review: Lab results 10/10/2017 06:43 EST WBC 9.4 E9/L RBC 3.4 E12/L LOW Hgb 10.8 gm/dL LOW Hct 31.1 % LOW MCV 92.1 fL MCH 31.9 pg MCHC 34.6 gm/dL RDW 13.3 % Platelet 497.0 E9/L MPV 6.8 fL Neutro Auto 56.2 % Lymph Auto 25.6 % [place] Auto 9.9 % Eos Auto 7.4 % Basophil Auto 0.9 % Neutro Absolute 5.3 E9/L Lymph Absolute 2.4 E9/L [place] Absolute 0.9 E9/L Eos Absolute 0.7 E9/L [place] Basophil Absolute 0.1 E9/L . Diagnostic Findings: * Final Report *Reason For ExamOther (please specify)POWERSCRIBE REPORTIMPRESSION: PROBABLE 10.3 X 5.3 X 3.4 CM ABSCESS WITHIN THE SOFT TISSUES OF THELOWER BACK AT THE AREA OF CLINICAL CONCERN.CLINICAL HISTORY: Swelling and erythema lower back.COMPARISON: CT abdomen and pelvis without contrast 10/05/2017.TECHNIQUE: Transabdominal ultrasound of the lower back was performed in the area ofclinical concern.FINDINGS: An ovoid complex fluid collection within the superficial subcutaneous tissues of thelower back to the left of midline measuring 10.3 x 5.3 x 3.4 cm (sagittal, transverseand AP dimensions respectively) is highly suspicious for an abscess, approximately1.5 cm deep to the skin surface.Signature Line FINAL REPORT Dictated: 10/08/2017 8:58 am Yury Delarosa MD JSigned (Electronic Signature): 10/08/2017 8:58 amSigned by: Yury Delarosa MDTranscribed by: JENNIFFER Technologist: CHUCK TODDThis document has an imageResult type: US Abdomen, LimitedResult date: October 07, 2017 18:20 ESTResult status: Auth (Verified)Result title: US Abdomen, LimitedPerformed by: Yury Delarosa MD on October 08, 2017 08:58 ESTVerified by: Yury Delarosa MD on October 08, 2017 08:58 ESTEncounter info: [id number], [facility], Inpatient, 10/05/2017 - . Condition: Fair. Impression and Plan 27-year-old male with no significant past medical history presented with complaints of left flank and left lower back pain of about 2-3 weeks duration associated with fever, chills and nausea and was admitted with sepsis present on admission, left flank/left lower back cellulitis with abscess formation, hyponatremia, leukocytosis, elevated LFTs.- Sepsis?present on admission?secondary to left flank/left lower back cellulitis. Sepsis has resolved. Treating underlying disease process. Blood cultures so far not isolating any organisms. Wound cultures isolated MSSA.-Left flank/left lower back MSSA cellulitis with abscess formation?de-escalate antibiotics to IV cefazolin 2 g every 8 hours. I spoke with the infectious disease specialist and advised that at discharge patient can be transitioned to oral Keflex. He is status post postoperative day #2?incision and drainage with wound VAC application.. Wound VAC to be changed on 10/12/17. - Hyponatremia? Resolved. I discontinued IV fluid. - Leukocytosis?secondary to above infectious process. Resolved. I reviewed labs and WBC is trending down at 9,400. - Elevated LFTs?maybe secondary to above infectious process. Hepatitis C antibody test pending. - Tobacco dependence?advised on cessation. Continue nicotine patch.- DVT prophylaxis?early ambulation.Disposition: Wound culture result and Wound Vac change on 10/12/17 Normal [facility] Comment on above: Result Comment: Elec tronically Signed By: Sushant DC, Juan Pablo\\.br\\Date and Time Signed: 10/10/17 11:42 EST Auto Diffon 10-09-2017 Basophils Auto #/vol (Bld) 0.1 E9/L Normal 0.0-0.2 [facility] Comment on above: Order Comment: Order Added by Discern Expert. Performed By: #### 1 1394225, 6744968, 82256714, 9476574, 59788277, 5938547, 9988747 ####[facility] [address] [place] [address] Basophils Auto #/vol (Bld) 0.4 % Normal 0.0-2.0 [facility] Comment on above: Order Comment: Order Added by Discern Expert. Performed By: #### 1 6590061, 1899364, 35894507, 6494666, 01481721, 0440988, 5128206 ####[address] [place] [address] Eosinophils 0.1 E9/L Normal 0.0-0.5 [facility] Comment on above: Order Comment: Order Added by Discern Expert. Performed By: #### 1 3183915, 4158044, 81167647, 4267727, 17130373, 8769257, 8758937 ####[address] [place] [address] Eosinophils/100 leukocytes 0.8 % Normal 0.0-8.0 [facility] Comment on above: Order Comment: Order Added by Discern Expert. Performed By: #### 1 1046705, 8813990, 29876590, 1615445, 38773510, 3797590, 3535150 ####[address] [address] Lymphocytes 1.3 E9/L Normal 1.0-4.0 [facility] Comment on above: Order Comment: Order Added by Discern Expert. Performed By: #### 1 2696103, 4977516, 88825650, 6799346, 75261808, 2975414, 3565495 ####[address] [address] Lymphocytes/100 leukocytes 8.2 % Low 14.0-50.0 [facility] Comment on above: Order Comment: Order Added by Discern Expert. Performed By: #### 1 9978442, 5743321, 59065525, 5920433, 77166101, 8896442, 0049761 ####[address] [place] [address] Monocytes 1.2 E9/L High 0.2-1.0 [facility] Comment on above: Order Comment: Order Added by Discern Expert. Performed By: #### 1 6253432, 8174968, 99735073, 9895210, 61702179, 3279766, 8550354 ####[address] [place] [address] Monocytes/100 leukocytes 8.0 % Normal 4.0-14.0 [facility] Comment on above: Order Comment: Order Added by Discern Expert. Performed By: #### 1 9098667, 8873555, 50950625, 5938531, 43471167, 3041304, 8206795 ####[address] [place] [address] Neutrophils 12.7 E9/L High 2.0-7.5 [facility] Comment on above: Order Comment: Order Added by Discern Expert. Performed By: #### 1 [id number], 9287822, 31685892, 1360821, 24070510, 0765061, 4341049 ####[address] [address] Neutrophils/100 leukocytes 82.6 % High 36.0-75.0 [facility] Comment on above: Order Comment: Order Added by Discern Expert. Performed By: #### 1 8116800, 2771389, 08567786, 1042567, 30568324, 1973840, 5670723 ####[address] [address] CBC w/ Auto Diffon 7 Erythrocyte distribution width Auto Ratio (RBC) 13.2 % Normal 10.9-14.2 [facility] Comment on above: Performed By: #### 1 9661340, 5045990, 48592371, 6426099, 44841965, 4266853, 6421918 ####[address] [place] [address] Erythrocytes (RBC) 3.6 E12/L Low 4.3-5.9 [facility] Comment on above: Performed By: #### 1 1663230, 6200912, 27757852, 5713076, 92637378, 2575960, 4272195 ####[address] [place] [address] Hematocrit (HCT) 32.3 % Low 37.7-49.0 [facility] Comment on above: Performed By: #### 1 0079982, 3193624, 68190997, 4568385, 42218156, 8266929, 1574931 ####[facility] [address] [place] [address] Hemoglobin mass conc (Bld) 11.0 g/dL Low 13.5-17.5 [facility] Comment on above: Performed By: #### 1 2777261, 7298947, 91229070, 8296049, 44764451, 8816263, 2563380 ####[address] [place] [address] MCH 31.0 pg Normal 27.0-34.0 [facility] Comment on above: Performed By: #### 1 7640299, 0471011, 45107229, 4190009, 61271201, 3327975, 7780440 ####[place] [address] MCHC mass conc (RBC) 34.1 g/dL Normal 31.4-39.3 [facility] Comment on above: Performed By: #### 1 9746775, 7453177, 65849164, 7891062, 51160412, 1461689, 6343458 ####[address] MCV 91.0 fL Normal 80.0-100.0 [facility] Comment on above: Performed By: #### 1 1756859, 7632474, 96685152, 6206271, 92989513, 4729696, 4107016 ####[address] [place] [address] Platelet mean volume (PMV) 7.1 fL Normal 6.4-10.8 [facility] Comment on above: Performed By: #### 1 4679250, 6954292, 46075029, 1988433, 09549978, 6971891, 2387547 ####[address] Platelets 429.0 E9/L Normal 150.0-500. 0 [facility] Comment on above: Performed By: #### 1 4993254, 1982754, 36759394, 3569309, 79796733, 3650048, 0887743 ####[facility] [address] [place] [address] WBC (Leukocytes) 15.4 E9/L High 4.0-11.0 [facility] Comment on above: Result Comment: Slid e reviewed by AC. Performed By: #### 1 2960510, 9971212, 00729069, 9536046, 13570527, 2679075, 6448395 ####[facility] [address] [place] [address] Progress Note-Physicianon Progress Note-Physician Patient: WILLOW WILKES Age: 27 years Sex: Male : 1990 Associated Diagnoses: None Author: Sushant DC, Juan Pablo Basic Information 27-year-old male with no significant past medical history presented with complaints of left flank and left lower back pain of about 2-3 weeks duration associated with fever, chills and nausea and was admitted with sepsis present on admission, left flank/left lower back cellulitis with abscess formation, hyponatremia, leukocytosis, elevated LFTs. He is status post incision and drainage with wound VAC application on 10/08/17. Subjective Seen and examined. He feels better today after incision and drainage yesterday. He denies any fever, chills. Pain is markedly reduced. Health Status Allergies: Allergic Reactions (Selected)No Known Allergies Current medications: Medications (10) ActiveScheduled: (3)daptomycin (Cubicin) + Sodium Chloride 0.9% 50 mL 493 mg 0.99 EA, IV Piggyback, x65ylplajxjxr 14 mg/24 hr Transderm ER Film [F] 14 mg 1 patch(es), TransDermal, Dailypiperacillin-tazobactam 3 g-0.375 g 3.375 gram 1 EA, IV Piggyback, t5vlCglvhszqrn: (1)Lactated Ringers 1,000 mL 1,000 mL, IV, 75 mL/hrPRN: (6)acetaminophen 325 mg Tab UD [F] 650 mg 2 tab(s), Oral, s6tpahvxnwkxk 0.083% Inh Mary 3 mL [F] 2.5 mg 3 mL, NEB, n2dipfhnmjqwn CFC free 90 mcg/inh Inh Aer w/Adapt 8.5 gm [F] 180 microgram 2 puff(s), Inhalation, r1btcizpiwago 30 mg/mL Inj 1 mL [F] 30 mg 1 mL, IV, q0yrobsxwzze 10 mg/mL preservative-free SOLN [F] 4 mg 0.4 mL, IV Push, f6qluressusdpre 2 mg/mL Inj [F] 4 mg 2 mL, IV Push, q6hr Problem list: All ProblemsImpaired skin integrity / SNOMED CT 62667003 / ConfirmedProblem added on documentation of skin impairments.Smoker / IMO [id number] / ConfirmedAdded secondary to documentation in Social History.Resolved: Asthma / SNOMED CT 673934492 Histories Past Medical History: ResolvedAsthma ([id number]): Resolved. Family History: AsthmaMother Procedure history: Incision AND drainage (SNOMED CT 938504978) performed by Jose M Patten MD on 10/08/2017 at 27 Years.Comments:10/08/2017 19:32 - Magda THOMPSON, Julieta NI AND D AND IRRIGATION LEFT LOWER BACK ABCESS 10 X 15 CMIncision AND drainage (SNOMED CT 508208751).Comments:10/06/2017 06:12 - Philippe Cabezas RN right hand Social History Social & Psychosocial OkjapjAeobbsg76/26/2017 Risk Assessment: Denies Alcohol UseSubstance Abuse10/05/2017 Risk Assessment: Denies Substance DfzijDkdfqyl47/26/2017 Risk Assessment: High Risk10/05/2017 Use: Current Every Day Smoker Type: Cigarettes Tobacco use per day: 0.5. Objective VS/Measurements: Vitals Signs (last 24 hrs) Last Charted Minimum MaximumTemp 36.5 (OCT 09 07:33) 35.8 (OCT 09 05:00) 37.3 (OCT 08 11:27)Heart Rate 84 (OCT 09 07:34) 84 (OCT 09 07:34) 114 (OCT 08 14:35)Resp Rate 18 (OCT 09 07:34) 1 (OCT 08 14:20) 41 (OCT 08 14:30)SBP 113 (OCT 09 07:33) 87 (OCT 08 14:40) H 141 (OCT 08 11:27)DBP 63 (OCT 09 07:33) 51 (OCT 08 14:36) 89 (OCT 08 15:00)MAP 80 (OCT 09 07:33) 80 (OCT 09 07:33) 94 (OCT 08 11:27)SpO2 98 (OCT 09 07:34) 90 (OCT 08 15:40) 100 (OCT 08 14:30). Vitals Signs (last 24 hrs) Last Charted Minimum MaximumTemp 36.5 (OCT 09:33) 35.8 (OCT 09 05:00) 37.3 (OCT 08 11:27)Heart Rate 84 (OCT 09 07:34) 84 (OCT 09 07:34) 114 (OCT 08 14:35)Resp Rate 18 (OCT 09 07:34) 1 (OCT 08 14:20) 41 (OCT 08 14:30)SBP 113 (OCT 09 07:33) 87 (OCT 08 14:40) H 141 (OCT 08 11:27)DBP 63 (OCT 09 07:33) 51 (OCT 08 14:36) 89 (OCT 08 15:00)MAP 80 (OCT 09:33) 80 (OCT 09 07:33) 94 (OCT 08 11:27)SpO2 98 (OCT 09 07:34) 90 (OCT 08 15:40) 100 (OCT 08 14:30) General: Alert and oriented, No acute distress. Eye: Pupils are equal, round and reactive to light, Extraocular movements are intact. HENT: Normocephalic. Neck: Supple. Respiratory: Lungs are clear to auscultation, Respirations are non-labored. Cardiovascular: Normal rate, Regular rhythm. Gastrointestinal: Soft, Non-distended, Normal bowel sounds. Musculoskeletal Normal range of motion. Left flank and left paralumbar reduced redness. Wound Vac in place and draining serous fluid.. Neurologic: Alert, Oriented. Psychiatric: Cooperative, Appropriate mood & affect. Review / Management Results review: Lab results 10/09/2017 08:48 EST Vanco Tr <4 microgram/mL LOW 10/09/2017 06:41 EST WBC 15.4 E9/L HI RBC 3.6 E12/L LOW Hgb 11.0 gm/dL LOW Hct 32.3 % LOW MCV 91.0 fL MCH 31.0 pg MCHC 34.1 gm/dL RDW 13.2 % Platelet 429.0 E9/L MPV 7.1 fL Neutro Auto 82.6 % HI Lymph Auto 8.2 % LOW [place] Auto 8.0 % Eos Auto 0.8 % Basophil Auto 0.4 % Neutro Absolute 12.7 E9/L HI Lymph Absolute 1.3 E9/L [place] Absolute 1.2 E9/L HI Eos Absolute 0.1 E9/L Basophil Absolute 0.1 E9/L . Diagnostic Findings: * Final Report *Reason For ExamOther (please specify)POWERSCRIBE REPORTIMPRESSION: PROBABLE 10.3 X 5.3 X 3.4 CM ABSCESS WITHIN THE SOFT TISSUES OF THELOWER BACK AT THE AREA OF CLINICAL CONCERN.CLINICAL HISTORY: Swelling and erythema lower back.COMPARISON: CT abdomen and pelvis without contrast 10/05/2017.TECHNIQUE: Transabdominal ultrasound of the lower back was performed in the area ofclinical concern.FINDINGS: An ovoid complex fluid collection within the superficial subcutaneous tissues of thelower back to the left of midline measuring 10.3 x 5.3 x 3.4 cm (sagittal, transverseand AP dimensions respectively) is highly suspicious for an abscess, approximately1.5 cm deep to the skin surface.Signature Line FINAL REPORT Dictated: 10/08/2017 8:58 am Yury Delarosa MDigned (Electronic Signature): 10/08/2017 8:58 amSigned by: Yury Delarosa MDTranscribed by: JENNIFFER Technologist: CHUCK TODDThis document has an imageResult type: US Abdomen, LimitedResult date: October 07, 2017 18:20 ESTResult status: Auth (Verified)Result title: US Abdomen, LimitedPerformed by: Yury Delarosa MD on October 08, 2017 08:58 ESTVerified by: Yury Delarosa MD on October 08, 2017 08:58 [facility] info: [id number], Jin George, Inpatient, 10/05/2017 - . Condition: Fair. Impression and Plan 27-year-old male with no significant past medical history presented with complaints of left flank and left lower back pain of about 2-3 weeks duration associated with fever, chills and nausea and was admitted with sepsis present on admission, left flank/left lower back cellulitis with abscess formation, hyponatremia, leukocytosis, elevated LFTs.- Sepsis?present on admission?secondary to left flank/left lower back cellulitis. Sepsis has resolved. Treating underlying disease process. Blood cultures so far not isolating any organisms.-Left flank/left lower back cellulitis with abscess formation?infectious disease specialist consult reviewed by me. Continue on IV antibiotics daptomycin and Zosyn. He is status post postoperative day #1?incision and drainage with wound VAC application. I spoke with the general surgeon. Wound VAC to be changed on 10/12/17. - Hyponatremia? Resolved. Redused IV fluid.- Leukocytosis?secondary to above infectious process. I reviewed labs and WBC is trending down at 15,400. - Elevated LFTs?maybe secondary to above infectious process. I ordered hepatitis C antibody test.- Tobacco dependence?advised on cessation. Continue nicotine patch.- DVT prophylaxis?early ambulation.Disposition: Wound culture result and Wound Vac change on 10/12/17 [facility] Comment on above: Result Comment: Elec tronically Signed By: Sushant DC, Juan Pablo\\.br\\Date and Time Signed: 10/09/17 11:02 EST Progress Note-Physician Patient: WILLOW WILKES Age: 27 years Sex: Male : 1990 Associated Diagnoses: None Author: Jose M Patten MD Basic Information SurgeryPOD#1Pain controlled with IV MS.Dressing intact. Reinforced overnight per nursing due to significant bleeding. Less bloody drainage this am.A/P: S/P I&D of large back abscess - Wound Vac in place. Wound Clinic staff to change 1/2.Continue IV ATB. Wound care per Wound Clinic.Will follow as needed. [facility] Comment on above: Result Comment: Elec tronically Signed By: Jose M Patten MD R.\\.br\\Date and Time Signed: 10/09/17 07:53 EST Vanco Troughon 10-09-2017 VANCOMYCIN <4 Low 10-20 [facility] Comment on above: Result Comment: Resu lts verified by dilution. Performed By: #### 1 8388037, 7327994, 93311558, 2615821, 73416935, 1546604, 8004930 ####[facility] [address] [place] [address] Dino 10-08-2017 Alanine aminotransferase (ALT) 63 Int._Unit/L High 6-46 [facility] Comment on above: Performed By: #### 1 7313947, 9878448, 55464520, 2862283, 84344393, 6473640, 6088809 ####[facility] [address] [place] [address] Navid 10-08-2017 Aspartate aminotransferase (AST) 37 Int._Unit/L Normal 5-43 [facility] Comment on above: Performed By: #### 1 5720485, 3640490, 59547401, 0073981, 53827787, 2252810, 7025334 ####[facility] [address] [place] [address] Auto Diffon 10-08-2017 Basophils Auto #/vol (Bld) 0.1 E9/L Normal 0.0-0.2 [facility] Comment on above: Order Comment: Order added by Discern Expert. Performed By: #### 1 9599498, 4326162, 48440247, 5959121, 54115355, 0866498, 1881025 ####[facility] [address] [place] [address] Basophils Auto #/vol (Bld) 0.5 % Normal 0.0-2.0 [facility] Comment on above: Order Comment: Order added by Discern Expert. Performed By: #### 1 4194787, 2569935, 98072292, 3318861, 73867792, 5946701, 3653008 ####[facility] [address] [place] [address] Eosinophils 0.9 E9/L High 0.0-0.5 [facility] Comment on above: Order Comment: Order added by Discern Expert. Performed By: #### 1 0466159, 4824389, 39890060, 9739196, 15438201, 4085717, 5775583 ####[address] [place] [address] Eosinophils/100 leukocytes 5.6 % Normal 0.0-8.0 [facility] Comment on above: Order Comment: Order added by Margo Expert. Performed By: #### 1 8754080, 3535229, 98896830, 1239838, 85378954, 2997231, 2124247 ####[address] [address] Lymphocytes 1.5 E9/L Normal 1.0-4.0 [facility] Comment on above: Order Comment: Order added by Margo Expert. Performed By: #### 1 0282988, 3275472, 88871831, 7580754, 49567358, 8449857, 5228805 ####[address] [address] Lymphocytes/100 leukocytes 9.3 % Low 14.0-50.0 [facility] Comment on above: Order Comment: Order added by Margo Expert. Performed By: #### 1 1527643, 4419289, 45541951, 5035190, 18032977, 0271986, 7904222 ####[address] [place] [address] Monocytes 1.9 E9/L High 0.2-1.0 [facility] Comment on above: Order Comment: Order added by Margo Expert. Performed By: #### 1 5541994, 5249585, 77239333, 2383978, 81291412, 7678231, 4535558 ####[address] [address] Monocytes/100 leukocytes 12.0 % Normal 4.0-14.0 [facility] Comment on above: Order Comment: Order added by Discern Expert. Performed By: #### 1 5914149, 0984109, 59321793, 7849004, 00254379, 3014419, 1031500 ####[facility] [address] [place] [address] Neutrophils 11.5 E9/L High 2.0-7.5 [facility] Comment on above: Order Comment: Order added by Discern Expert. Performed By: #### 1 3983369, 0747706, 81445923, 0915309, 10462201, 4788375, 9162039 ####[facility] [address] [place] [address] Neutrophils/100 leukocytes 72.6 % Normal 36.0-75.0 [facility] Comment on above: Order Comment: Order added by Margo Expert. Performed By: #### 1 0307286, 4500768, 66737130, 9174119, 74867625, 2018682, 2933174 ####[facility] [address] [place] [address] BMPon 10-08-2017 Anion gap 9 mmol/L Normal 6-16 [facility] Comment on above: Performed By: #### 1 3612449, 6434741, 30953139, 6479803, 64113368, 3337746, 5071718 ####[facility] [address] [place] [address] BUN/Creatinine Ratio 9 No Units Low 10-20 [facility] Comment on above: Performed By: #### 1 6338894, 6329729, 15115148, 8217445, 95710565, 2174393, 6380777 ####[facility] [address] [place] [address] Calcium 8.2 mg/dL Low 8.9-11.1 [facility] Comment on above: Performed By: #### 1 4419461, 6180948, 61413896, 9756072, 37688629, 6221832, 6530691 ####[facility] [address] [place] [address] Chloride 103 mmol/L Normal 101-111 [facility] Comment on above: Performed By: #### 1 5391050, 9590311, 95671478, 7825254, 52840395, 6241887, 6775413 ####[facility] [address] [place] [address] CO2 28 mmol/L Normal 21-31 [facility] Comment on above: Performed By: #### 1 7658008, 3970697, 75363827, 1892613, 31208208, 7610487, 9486171 ####[facility] [address] [place] [address] Creatinine 0.8 mg/dL Normal 0.5-1.3 [facility] Comment on above: Performed By: #### 1 7959433, 1572468, 39004611, 2989072, 34694647, 4626653, 5533455 ####[facility] [address] [place] [address] Glucose mass conc 98 mg/dL Normal 55-199 [facility] Comment on above: Result Comment: If t his glucose result represents a fasting glucose, interpretation should refer to the following reference range: 55-99 mg/dL Performed By: #### 1 0627113, 7114485, 97458517, 4444917, 90946716, 5366775, 7785515 ####[facility] [address] [place] [address] Potassium molar conc 4.0 mmol/L Normal 3.5-5.3 [facility] Comment on above: Performed By: #### 1 2230479, 1692670, 77042002, 9318566, 33793656, 6397844, 0879451 ####[facility] [address] [place] [address] Sodium 136 mmol/L Normal 135-145 [facility] Comment on above: Performed By: #### 1 0839980, 0297886, 83366333, 9175233, 26300862, 1577797, 9884131 ####[facility] [address] [place] [address] Urea nitrogen 7 mg/dL Normal 5-21 [facility] Comment on above: Performed By: #### 1 1273331, 6148706, 05221960, 6765883, 09725846, 2314945, 8801464 ####[facility] [address] [place] [address] CBC w/ Auto Diffon Erythrocyte distribution width Auto Ratio (RBC) 13.4 % Normal 10.9-14.2 [facility] Comment on above: Performed By: #### 1 0246743, 3000077, 23050174, 4911183, 62940401, 8502409, 1001320 ####[address] [place] [address] Erythrocytes (RBC) 3.7 E12/L Low 4.3-5.9 [facility] Comment on above: Performed By: #### 1 8324971, 6763555, 98585774, 1040331, 69715472, 0348264, 7715971 ####[address] [place] [address] Hematocrit (HCT) 34.5 % Low 37.7-49.0 [facility] Comment on above: Performed By: #### 1 7126672, 4351932, 27339218, 8787293, 37068899, 5421239, 5419587 ####[address] [place] [address] Hemoglobin mass conc (Bld) 12.1 g/dL Low 13.5-17.5 [facility] Comment on above: Performed By: #### 1 3137454, 1365055, 63475356, 8338807, 64685170, 8400017, 9725936 ####[address] [place] [address] MCH 32.3 pg Normal 27.0-34.0 [facility] Comment on above: Performed By: #### 1 5440276, 4853363, 29543527, 6168733, 26028541, 2846296, 0730797 ####[facility] [address] [place] [address] MCHC mass conc (RBC) 34.9 g/dL Normal 31.4-39.3 [facility] Comment on above: Performed By: #### 1 5991207, 7421815, 29213788, 6668861, 45347161, 4995704, 2517739 ####[facility] [address] [place] [address] MCV 92.4 fL Normal 80.0-100.0 [facility] Comment on above: Performed By: #### 1 0968543, 5966493, 14361394, 4927660, 16697599, 3753048, 7005137 ####[address] [place] [address] Platelet mean volume (PMV) 6.6 fL Normal 6.4-10.8 [facility] Comment on above: Performed By: #### 1 7359386, 7187156, 87685759, 9304488, 20299218, 8630303, 7124293 ####[address] [place] [address] Platelets 342.0 E9/L Normal 150.0-500. 0 [facility] Comment on above: Performed By: #### 1 5666183, 7359068, 16079136, 8721278, 58919935, 1094486, 1543798 ####[address] [place] [address] WBC (Leukocytes) 15.9 E9/L High 4.0-11.0 [facility] Comment on above: Performed By: #### 1 9030750, 8779222, 68081019, 2193529, 86670477, 8337958, 4387129 ####[address] [place] [address] Consultation Noteon 10-08-20 Consultation Note Patient: Alexx WILKES Age: 27 years Sex: Male : 1990 Associated Diagnoses: None Author: Julian Cyr M.D Chief Complaint 10/05/2017 18:24 EST pain in mid back to hip. ongoing X2 weeks. was seen [place] [facility] [facility] but was told it was just muscle spasms. xray and urin were obtained in [place]. History of Present Illness Patient with back pain that is obviously due to an abscess. CT and US confirm. Complains of back pain. Present for 2 weeks. Denies IVDU. Assoicated with fevers. Review of Systems Constitutional: Negative except as documented in history of present illness. Health Status Allergies: Allergic Reactions (Selected)No Known Allergies Current medications: Medications (10) ActiveScheduled: (2)piperacillin-tazobactam 3 g-0.375 g 3.375 gram 1 EA, IV Piggyback, i3qcqmqdglfplw + Sodium Chloride 0.9% 500 mL 2 gram 2 EA, IV Piggyback, u21brJjhditktqc: (2)Lactated Ringers 1,000 mL 1,000 mL, IV, 125 mL/hrSodium Chloride 0.9% 2,190 mL 2,190 mL, IV, 999 mL/hrPRN: (6)acetaminophen 325 mg Tab UD [F] 650 mg 2 tab(s), Oral, o1srhusjroplk 0.083% Inh Mary 3 mL [F] 2.5 mg 3 mL, NEB, b4vsnborebukm CFC free 90 mcg/inh Inh Aer w/Adapt 8.5 gm [F] 180 microgram 2 puff(s), Inhalation, k9vvwetxzvfjc 30 mg/mL Inj 1 mL [F] 30 mg 1 mL, IV, t2bzwqhpwpjm 10 mg/mL preservative-free SOLN [F] 4 mg 0.4 mL, IV Push, b4xxttwczmpuiss 2 mg/mL Inj [F] 4 mg 2 mL, IV Push, q6hr Problem list: All ProblemsImpaired skin integrity / SNOMED CT 07522438 / ConfirmedProblem added on documentation of skin impairments.Smoker / IMO [id number] / ConfirmedAdded secondary to documentation in Social History. Histories Past Medical History: ResolvedAsthma ([id number]): Resolved. Family History: AsthmaMother Procedure history: Incision AND drainage ([id number]).Comments:10/06/2017 06:12 - Philippe Cabezsa RN right hand Physical Examination Vital Signs 10/08/2017 08:26 EST Heart Rate Monitored 92 bpm 10/08/2017 08:25 EST Respiratory Rate 20 br/min 10/08/2017 08:25 EST Temperature Oral 36.9 DegC 10/08/2017 08:25 EST Systolic Blood Pressure 103 mmHg Diastolic Blood Pressure 62 mmHg 10/07/2017 23:26 EST Temperature Oral 38.6 DegC HI 10/07/2017 20:20 EST Temperature Oral 38.2 DegC HI 10/07/2017 15:00 EST Temperature Oral 36.8 DegC 10/07/2017 11:26 EST Temperature Oral 36.7 DegC 10/07/2017 07:22 EST Temperature Oral 37.2 DegC 10/07/2017 00:57 EST Temperature Oral 37.9 DegC WI General: Alert and oriented, Mild distress. Eye: Pupils are equal, round and reactive to light. Neck: Supple. Respiratory: Lungs are clear to auscultation. Cardiovascular: Normal rate, Regular rhythm, No murmur. Gastrointestinal: Soft, erythema noted on left side that extends back to low back. Swelling noted over lower left back with fluctuance noted. . Integumentary: Warm, see GI, multiple tattoos. Neurologic: Alert. Psychiatric: Cooperative. Review / Management Results review: All Results 10/08/2017 06:19 EST WBC 15.9 E9/L WI Hgb 12.1 gm/dL LOW Platelet 342.0 E9/L BUN 7 mg/dL Creatinine 0.8 mg/dL 10/07/2017 07:43 EST WBC 19.7 E9/L WI 10/06/2017 03:49 EST UA Spec Desc Clean Catch UA Color Yellow UA Clarity Clear UA Spec Grav 1.010 UA pH 7.0 UA Protein 1+ UA Glucose Negative UA Ketones Trace UA Bili Negative UA Blood Negative UA Nitrite Negative UA Urobilinogen 1.0 EU/dL UA Leuk Est Negative UA RBC 0-3 /HPF UA Squam Epithelial 0-2 /HPF UA WBC 0-5 /HPF UA Bacteria Trace /HPF UA Mucous Trace 10/06/2017 02:59 EST Lactic Acid Lvl 5.1 mg/dL 10/05/2017 23:35 EST Blood Culture NEG (In Progress) 10/05/2017 23:08 EST WBC 19.7 E9/L HI Lactic Acid Lvl 7.7 mg/dL Blood Culture NEG (In Progress) . Radiology results: CT, POWERSCRIBE REPORTImpression: DIFFUSE EXTRAPERITONEAL CELLULITIS INVOLVING THE FLANK AND LATERALABDOMINAL WALL BILATERALLY; LEFT GREATER THAN RIGHT. SMALL AMOUNT OF FREE FLUIDOVERLYING THE LEFT EXTRAPERITONEAL SOFT TISSUE. PHLEGMON VERSUS EARLY ABSCESS SHOULDBE CONSIDERED., US: IMPRESSION: PROBABLE 10.3 X 5.3 X 3.4 CM ABSCESS WITHIN THE SOFT TISSUES OF THELOWER BACK AT THE AREA OF CLINICAL CONCERN.. Impression and Plan Diagnosis SSTI of back Odd place overall for this type of infection but clinically seems to require I&D. CT shows that it is only soft tissue. Change vancomcyin to dapto. Maintain Zosyn. Await blood cultures and culture from I&D. General surgery to see patient. Already consulted. . Normal [facility] Comment on above: Result Comment: Elec tronically Signed By: Julian Cyr M.D.pretty\\Date and Time Signed: 10/08/17 11:13 EST ED Note-Physicianon 10-08-20 ED Note-Physician Patient: Alexx WILKES Age: 27 years Sex: Male : 1990 Associated Diagnoses: None Author: Melissa Mcfadden, Анна Nicole Basic Information Time seen: Date & time 10/05/17 22:30:00. History source: Patient. Arrival mode: Private vehicle. History limitation: None. Additional information: Chief Complaint from Nursing Triage Note : Chief Complaint 10/05/2017 18:24 EST Chief Complaint pain in mid back to hip. ongoing X2 weeks. was seen in [place] [facility] but was told it was just muscle spasms. xray and urin were obtained in [place]. . History of Present Illness The patient is a 27-year-old male who presented to the emergency room with back pain. The patient states that the pain has been present since last Wednesday. He states that he had temperature at home 102.4. He reports chills. The patient reports dizziness this morning. He reports generalized weakness. He states that the pain is worse with him moving. He denies any injury. The patient denies any chest pain, denies any shortness of breath. He denies any bowel or bladder incontinence, denies any saddle paresthesias. The patient stated he was seen at [place] on and he was diagnosed with muscle strain. The patient denies any IV drug abuse or any other associated symptoms. Review of Systems Additional review of systems information: All other systems reviewed and otherwise negative. Health Status Allergies: Allergic Reactions (Selected)No Known Allergies. Past Medical/ Family/ Social History Medical history: ResolvedAsthma ([id number]): Resolved.. Surgical history: No active procedure history items have been selected or recorded.. Family history: No family history items have been selected or recorded.. Physical Examination Vital Signs Vital Signs 10/06/2017 00:49 EST Heart Rate Monitored 123 bpm HI Respiratory Rate Monitored 18 br/min Systolic Blood Pressure 105 mmHg Diastolic Blood Pressure 53 mmHg LOW Mean Arterial Pressure, Cuff 70 mmHg SpO2 98 % 10/06/2017 00:15 EST Heart Rate Monitored 125 bpm HI Respiratory Rate Monitored 16 br/min Systolic Blood Pressure 111 mmHg Diastolic Blood Pressure 51 mmHg LOW Mean Arterial Pressure, Cuff 71 mmHg SpO2 98 % 10/05/2017 23:39 EST Heart Rate Monitored 122 bpm HI Respiratory Rate Monitored 16 br/min Systolic Blood Pressure 100 mmHg Diastolic Blood Pressure 48 mmHg LOW Mean Arterial Pressure, Cuff 65 mmHg SpO2 99 % 10/05/2017 22:52 EST Heart Rate Monitored 130 bpm HI Respiratory Rate Monitored 17 br/min Systolic Blood Pressure 103 mmHg Diastolic Blood Pressure 49 mmHg LOW Mean Arterial Pressure, Cuff 67 mmHg SpO2 95 % 10/05/2017 18:24 EST Temperature Oral 36.8 DegC Peripheral Pulse Rate 120 bpm HI Respiratory Rate 18 br/min Systolic Blood Pressure 115 mmHg Diastolic Blood Pressure 80 mmHg SpO2 99 % . Per nurse's notes. Measurements 10/05/2017 18:24 EST Height/Length Measured 175 cm Body Mass Index Measured 23.84 kg/m2 Weight Measured 73 kg . Basic Oxygen Information 10/06/2017 00:49 EST SpO2 98 % Oxygen Therapy Room air 10/06/2017 00:15 EST SpO2 98 % Oxygen Therapy Room air 10/05/2017 23:39 EST SpO2 99 % Oxygen Therapy Room air 10/05/2017 22:52 EST SpO2 95 % Oxygen Therapy Room air 10/05/2017 18:24 EST SpO2 99 % . Patient is not hypoxic.. General: Alert, moderate distress. Skin: Dry, The left lumbar region with erythema and induration in the lower left lateral aspect of the spine. The erythematosus area is warm to touch. No fluctuation appreciated.. Head: Normocephalic, atraumatic. Neck: Supple, trachea midline, no tenderness. Eye: Extraocular movements are intact, normal conjunctiva, vision unchanged. Ears, nose, mouth and throat: Oral mucosa moist, no pharyngeal erythema or exudate. Cardiovascular: No murmur, Tachycardia. Respiratory: Lungs are clear to auscultation, respirations are non-labored, breath sounds are equal. Chest wall: No tenderness, No deformity. Back: Normal range of motion, no step-offs, Lumbar region slightly to the right of the spine and entire left side of the lumbar region with erythema as described on the skin section.. Musculoskeletal: Normal ROM, normal strength, no tenderness. Gastrointestinal: Soft, Nontender, Non distended, Normal bowel sounds. Neurological: No focal neurological deficit observed, CN II-XII intact, normal sensory observed, normal motor observed, normal speech observed, Alert and oriented. Lymphatics: No lymphadenopathy. Psychiatric: Cooperative, appropriate mood & affect. Medical Decision Making Documents reviewed: Emergency department nurses' notes. Orders Launch Order Profile (Selected) Inpatient OrdersInProcess (Exam Complete)ECG 12 Lead Adult: 10/05/17 18:34:47 EST, Routine, FT - CardiologyOrderedContinuous Pulse Oximetry: 10/05/17 22:45:00 EST, StatED Cardiac Monitorin10/05/17 22:45:00 EST, Stat, Constant orderHospitalist consult for continued care per ED Physician: O2 Therapy: 10/05/17 22:45:00 EST, Stat, To maintain pulse ox GE 92%Sodium Chloride 0.9% IV Mary 1000 mL 2,190 mL: 2,190 mL, IV, 999 mL/hr, STAT, Start date 10/05/17 22:45:00 EST, 2.2 hour(s), Total volume (mL): 2,190Ordered (Dispatched)Lactic Acid: Blood, Timed Study collect, 10/06/17 2:45:00 EST, Once, Stop date 10/06/17 2:45:00 EST, Lab CollectUA With Cult Reflex: Urine, Clean Catch, Stat collect, 10/05/17 22:45:00 EST, Once, Stop date 10/05/17 22:45:00 EST, Nurse collect, CatherizedOrdered (Exam Completed)CT Abdomen/Pelvis w/ Contrast: 10/05/17 22:43:00 EST, Stat, Transport Mode: Cart, Reason: Other (please specify), Reason: back pain/cellulitis/abscess, No, pp_set_radiology_subspecialty, EmergencyCXR: 10/05/17 22:45:00 EST, Stat, Transport Mode: Cart, Reason: Cough, No, pp_set_radiology_subspecialty, EmergencyOrdered (In-Lab)Blood Culture: Blood, Arm L, Stat collect, 10/05/17 22:45:00 EST, Stop date 10/05/17 23:35:00 EST, Peripheral vein site #2Blood Culture: Blood, Arm R, Stat collect, 10/05/17 22:45:00 EST, Stop date 10/05/17 23:08:00 EST, Peripheral vein site #1Completed.Manual Abs: Blood, Stat collect, Collected, 10/05/17 23:08:00 EST, Stop date 10/05/17 23:08:00 EST, Lab CollectCBC w/ Auto Diff: Blood, Stat collect, 10/05/17 22:45:00 EST, Stop date 10/05/17 22:45:00 EST, Lab CollectCMP: Blood, Stat collect, 10/05/17 22:45:00 EST, Stop date 10/05/17 22:45:00 EST, Lab CollectExtra SST Tube: Blood, Stat collect, Collected, 10/05/17 23:08:00 EST by FTHBAKER, Stop date 10/05/17 23:08:00 EST, Lab Collect, Venous Draw, YesLactic Acid: Blood, Stat collect, 10/05/17 22:45:00 EST, Once, Stop date 10/05/17 22:45:00 EST, Lab CollectManual Diff: Blood, Stat collect, Collected, 10/05/17 23:08:00 EST, Stop date 10/05/17 23:08:00 EST, Lab CollectMorphine 10 mg Injection: 6 mg, Injection, IV Push, Once, Stop date 10/05/17 22:46:00 EST, STAT, Start date 10/05/17 22:46:00 ESTPT & PTT: Blood, Stat collect, 10/05/17 22:45:00 EST, Stop date 10/05/17 22:45:00 EST, Lab CollectVancomycin 2 gram IVPB: Reason for Vancomycin: MRSA colonization or infection, 1.5 gram = 3 EA, Injection, IV Piggyback, Once, Stop date 10/06/17 0:00:00 EST, Routine, Start date 10/06/17 0:00:00 EST, Infuse over 90 minute(s)Zosyn 3.375 g IVPB: 3.375 gram = 1 EA, Injection, IV Piggyback, Once, Stop date 10/05/17 23:51:00 EST, STAT, Start date 10/05/17 23:51:00 EST, 100 mL/hr, Infuse over 30 minute(s)eGFR: Blood, Stat collect, Collected, 10/05/17 23:08:00 EST, Stop date 10/05/17 23:08:00 EST, Lab Collectmorphine 4 mg/mL Inj: 4 mg = 1 mL, Injection, IV Push, Once, Stop date 10/05/17 23:49:00 EST, STAT, Start date 10/05/17 23:49:00 ESTDiscontinuedXR Chest 1 View Frontal: 10/05/17 22:45:00 EST, Stat, Once, Transport Mode: Patient Bed, Reason: Shortness of breath (SOB), No, pp_set_radiology_subspecialty, Emergency. Results review: Lab results : Lab View 10/06/2017 03:49 EST UA Spec Desc Clean Catch UA Color Yellow UA Clarity Clear UA Spec Grav 1.010 UA pH 7.0 UA Protein 1+ UA Glucose Negative UA Ketones Trace UA Bili Negative UA Blood Negative UA Nitrite Negative UA Urobilinogen 1.0 EU/dL UA Leuk Est Negative UA RBC 0-3 /HPF UA Squam Epithelial 0-2 /HPF UA WBC 0-5 /HPF UA Bacteria Trace /HPF UA Mucous Trace 10/06/2017 02:59 EST Lactic Acid Lvl 5.1 mg/dL 10/05/2017 23:08 EST WBC 19.7 E9/L HI RBC 4.1 E12/L LOW Hgb 13.0 gm/dL LOW Hct 37.7 % MCV 91.5 fL MCH 31.6 pg MCHC 34.5 gm/dL RDW 13.4 % Platelet 309.0 E9/L MPV 7.7 fL Segs Man 78 % HI Band Man 4 % Lymph Man 5 % LOW Monocyte Man 13 % Eos Man 0 % Basophil Man 0 % Segs Abs Man 15.4 E9/L HI Lymph Abs Man 1.0 E9/L [place] Abs Man 2.6 E9/L HI Eos Abs Man 0.0 E9/L Basophil Abs Man 0.0 E9/L RBC Morph Normal PT 13.3 second(s) HI INR 1.2 NA PTT 30.1 second(s) Glucose Lvl 107 mg/dL BUN 13 mg/dL Creatinine 0.9 mg/dL eGFR >60 mL/min/1.73 m2 eGFR AA >60 mL/min/1.73 m2 BUN/Creat Ratio 14 Sodium Lvl 127 mmol/L LOW Potassium Lvl 4.1 mmol/L Chloride 93 mmol/L LOW CO2 25 mmol/L AGAP 13 mEq/L Calcium Lvl 8.5 mg/dL LOW Alk Phos 147 Int._Unit/L HI ALT 61 Int._Unit/L HI AST 49 Int._Unit/L HI Total Protein 6.6 gm/dL Albumin Lvl 2.8 gm/dL LOW Globulin 3.8 gm/dL A/G Ratio 0.7 LOW Bili Total 1.0 mg/dL Lactic Acid Lvl 7.7 mg/dL . Radiology results: 10/06/2017 06:49; Melissa Mcfadden, Astrit H; ; No infiltrate, mass or other acute cardiopulmonary abnormality, CT of the abdomen and pelvis with IV contrast red by teleradiology shows extensive subcutaneous soft tissue edema/senior marketing coordinator was change throughout the back and flank regions left greater than the right in keeping with cellulitis. No fluid collection, soft tissue emphysema or abscess formation is seen at this time.. Notes: The patient presented with back pain. He has cellulitis of the skin of the back with phelgmon of the subcutaneous tissues. His wbc is elevated. The patient has tachycardia. Poss sepsis. SIRS 2/4(HR, wbc). The patient is given fluid 30 ml/kg. The blood cultures are obtained. The patient is started on Vanco and Zosyn. He received Morphine and Dilaudid for pain. The patient has hyponatremia poss sepsis/dehydration. The liver enzymes are elevated. The case is discussed with the hospitalist and the patient will be admitted for inpatient tx.. Impression and Plan Diagnosis Cellulitis of lower back (CCR44-DU L03.312, Discharge, Medical) Phlegmonous cellulitis (VSK64-KL L02.91, Discharge, Medical) Hyponatremia (YIA06-LW E87.1, Discharge, Medical) Elevated liver enzymes ([id number]-UZ R74.8, Discharge, Medical) Plan Condition: Improved, Stable. Disposition: Admit time 10/06/17 01:35:00, Admit to Inpatient Telemetry Unit, Luis F Benavides DO Counseled: Patient, Family, Regarding diagnosis, Regarding diagnostic results, Regarding treatment plan. [facility] Comment on above: Result Comment: Elec tronically Signed By: Melissa Mcfadden, Анна Nicole\\.br\\Date and Time Signed: 10/08/17 09:28 EST Interdisciplinary Note - Brett e Manageron 10-08-2017 Interdisciplinary Note - Senior Principal Rounding with Dr. Canchola, Marisa [facility], [place], Marcelino RN. Whiteboard updated. No family present. Pt. has isolation precautions. Discussed what brought pt. to hospital. Pt. is not aware of any bite. Dr. Patten was contacted and wants pt. to be NPO for possible I&D. Pt. has history of surgery for infection. Drug use was denied. Pt. does bite his nails and he was advised not to do that. US results discussed. Pt. aware of anticipated dc in a few days. [facility] Interdisciplinary Note - Soc ial Workeron 10-08-2017 Interdisciplinary Note - Product Safety Lead Consult received late this afternoon to order wound vac. SW spoke to CRM who will be following this weekend about need for wound vac as this SW is not familiar with how to order this as this is usually completed by wound care. SW will remain available. [facility] Main OR PACU I Recordon 09-11 Main OR PACU I Record PACU Phase I Document Type FT Summary Primary Physician: Sandor DC, Jose M Camilo Finalized Date/Time: 10/08/17 17:18:48 Pt. Name: CHUNG WILLOW Martins/Sex: 1990 Male Med Rec #: [id number] Physician: Анна Torres M.D. Financial #: [id number] Pt. Type: I Room/Bed: [place] [address] Admit/Disch: 10/05/17 17:35:00 - Institution: Case Times PACU I FT Pre-Care Text: Identifies barriers to communication and implements measures to provide psychological support Develops individualized plan of care, and ensures continuity of care Maintains patient's dignity and privacy, and maintains patient confidentiality Identifies and reports philosophical, cultural, and spiritual beliefs and values Identifies individual values and wishes concerning care Implements aseptic technique, and administers prescribed antibiotic therapy and immunizing agents as ordered Evaluates postoperative tissue perfusion Implements thermoregulation measures, and monitors body temperature Evaluates postoperative respiratory status Evaluates postoperative cardiac status Evaluates postoperative neurological status Assesses pain control, collaborated in initiating patient-controlled analgesia and implements alternative methods of pain control Verifies allergies, administers prescribed medications and solutions, evaluates response to medications Entry 1 In PACU I 10/08/17 14:50:00 Discharge from PACU 10/08/17 16:18:00 I Outcomes Met? Yes Last Modified By: Yaneth THOMPSON, Aixa 10/08/17 17:18:04 Post-Care Text: The patient demonstrates knowledge of the expected response to the operative or invasive procedure The patient's care is consistent with the individualized perioperative plan of care The patient's right to privacy is maintained The patient's value system, lifestyle, ethnicity, and culture are considered, respected, and incorporated into the perioperative plan of care The patient participates in decisions affecting his or her perioperative plan of care The patient is free from signs and symptoms of infection The patient has wound/tissue perfusion consistent with or improved from baseline levels established preoperatively The patient is at or returning to normothermia at the conclusion of the immediate postoperative period The patient's respiratory function is consistent with or improved from baseline levels established preoperatively The patient's cardiovascular status is consistent with or improved from baseline levels established preoperatively The patient's cardiovascular status is consistent with or improved from baseline levels established preoperatively The patient demonstrates and/or reports adequate pain control throughout the perioperative period The patient received appropriate medication(s), safely administered during the perioperative period Acuity Level PACU I FT Entry 1 Start Time 10/08/17 14:50:00 Stop Time 10/08/17 16:18:00 Acuity Level Acuity Level II Last Modified By: Aixa Wolfe RN 10/08/17 17:18:37 Finalized By: Aixa Wolfe RN Document Signatures Signed By: Aixa Wolfe RN 10/08/17 17:18 Normal [facility] Progress Note-Physicianon Progress Note-Physician Patient: WILLOW WILKES Age: 27 years Sex: Male : 1990 Associated Diagnoses: None Author: Jose Juan Gomez DO Postoperative Information Post Operative Note: Post Anesthesia Care Unit. Anesthetic utilized: General. Physical Examination Vitals Signs (last 24 hrs) Last Charted Minimum MaximumTemp 37.3 (OCT 08 11:27) 36.9 (OCT 08 08:25) H 38.6 (OCT 07 23:26)Heart Rate 96 (OCT 08 14:40) 92 (OCT 08 08:26) 114 (OCT 08 14:35)Resp Rate 26 (OCT 08 14:40) 1 (OCT 08 14:20) 41 (OCT 08 14:30)SBP 87 (OCT 08 14:40) 87 (OCT 08 14:40) H 141 (OCT 08 11:27)DBP 61 (OCT 08 14:40) L 50 (OCT 07 23:20) 71 (OCT 08 11:27)MAP 94 (OCT 08 11:27) 69 (OCT 07 23:20) 94 (OCT 08 11:27)SpO2 100 (OCT 08 14:40) 95 (OCT 07 20:20) 100 (OCT 08 14:30) Pain assessment: Pain Assessment 10/08/2017 11:27 EST Preliminary Pain Scale 7 10/08/2017 10:00 EST Pain Symptoms Self Report Yes, able to self report Primary Pain Location Flank Primary Pain Laterality Left Primary Pain Quality Sharp Patient Preferred Pain Tool Numeric rating Numeric Pain Scale 10 = Worst possible pain Numeric Pain Score 10 Primary Pain Interventions Heat, Medications, Repositioning, Rest 10/08/2017 03:00 EST Numeric Pain Scale 8 Numeric Pain Score 8 10/08/2017 02:00 EST Numeric Pain Scale 8 (Modified) Numeric Pain Score 8 (Modified) 10/08/2017 01:00 EST Numeric Pain Scale 3 Numeric Pain Score 3 10/08/2017 00:00 EST Numeric Pain Scale 2 Numeric Pain Score 2 10/07/2017 23:00 EST Numeric Pain Scale 2 Numeric Pain Score 2 10/07/2017 22:00 EST Numeric Pain Scale 2 Numeric Pain Score 2 10/07/2017 21:00 EST Numeric Pain Scale 2 Numeric Pain Score 2 10/07/2017 20:00 EST Numeric Pain Scale 10 = Worst possible pain Numeric Pain Score 10 10/07/2017 19:20 EST Pain Symptoms Self Report Yes, able to self report Primary Pain Location Flank Primary Pain Laterality Left Primary Pain Radiation Yes Primary Pain Radiation Characteristics lower back Patient Preferred Pain Tool Numeric rating Numeric Pain Scale 10 = Worst possible pain Numeric Pain Score 10 10/07/2017 13:40 EST Pain Symptoms Self Report Yes, able to self report Primary Pain Location Flank Primary Pain Laterality Left Primary Pain Radiation Yes Primary Pain Radiation Characteristics lower back Patient Preferred Pain Tool Numeric rating Numeric Pain Scale 8 Numeric Pain Score 8 10/07/2017 10:07 EST Pain Symptoms Self Report Yes, able to self report Primary Pain Location Flank Primary Pain Laterality Left Primary Pain Radiation Yes Primary Pain Radiation Characteristics lower back Patient Preferred Pain Tool Numeric rating Numeric Pain Scale 8 Numeric Pain Score 8 10/07/2017 07:45 EST Pain Symptoms Self Report Yes, able to self report Primary Pain Location Flank Primary Pain Laterality Left Primary Pain Radiation Yes Primary Pain Radiation Characteristics lower back Patient Preferred Pain Tool Numeric rating Numeric Pain Scale 9 Numeric Pain Score 9 Primary Pain Interventions Cold, Medications, Rest . General: No acute distress. Respiratory: Respirations are non-labored. Cardiovascular: Regular rhythm, Normal peripheral perfusion. Neurologic: baseline. Review / Management Condition: Stable. Assessment Anesthetic outcome No anesthetic complications noted. Adequate pain relief. Adequate hydration, no unrelenting nausea and vomiting. Plan Transfer/ Discharge: Patient can be discharged from PACU when criteria met. [facility] Comment on above: Result Comment: Elec tronically Signed By: oJse Juan Gomez DO\\.br\\Date and Time Signed: 10/08/17 15:50 EST Progress Note-Physician Patient: WILLOW WILKES Age: 27 years Sex: Male : 1990 Associated Diagnoses: None Author: Jose Juan Gomez DO Preoperative Information Time patient last ate or drank:=== NPO guidelines met. Anesthesia history: Patient History: NO complications. Re-eval prior to induction: Inital eval reviewed: No significant interval change. Pleasant male, history of asthma, smoker, and sepsis. Denies any drug use. Agrees to proceed with GA. Review of Systems Constitutional: Negative. Cardiovascular: Negative, CV assessment performed. Respiratory: Negative, breathing at baseline. Neurologic: Negative. Health Status Allergies: Allergic Reactions (Selected)No Known Allergies, Allergies (1) Active ReactionNo Known Allergies None Documented Current medications: (Selected) Inpatient MedicationsOrderedDAPTOmycin 500 mg IV Inj. + Sodium Chloride 0.9% intravenous solution 50 mL: 493 mg = 0.99 EA, Powder-Inj, IV Piggyback, q24hr for 10 day(s), Stop date 10/18/17 12:59:00 EST, Routine, Start date 10/08/17 13:00:00 EST, 119.72 mL/hr, Infuse over 30 minute(s)Lactated Ringers Injection 1,000 mL: 1,000 mL, IV, 125 mL/hr, for 30 day(s), Stop date 11/07/17 10:04:00 EST, Start date 10/08/17 10:05:00 EST, 8 hour(s), Total volume (mL): 1,000Tylenol 325 mg Tab: 650 mg = 2 tab(s), Tab, Oral, q6hr PRN Fever, NOW, Start date 10/06/17 15:10:00 ESTZofran 4 mg/2 mL Injection: 4 mg = 2 mL, Injection, IV Push, q6hr PRN Nausea, Routine, Start date 10/06/17 9:00:00 ESTZosyn 3.375 g IVPB: 3.375 gram = 1 EA, IV Piggyback, q6hr for 10 day(s), Stop date 10/16/17 9:59:00 EST, Routine, Start date 10/06/17 10:00:00 EST, 100 mL/hr, Infuse over 30 minute(s)albuterol 0.083% Inh Mary 3 mL UD: 2.5 mg, 3 mL, Soln-Inh, NEB, q2hr PRN Shortness of breath or wheezing, Routine, Start date 10/06/17 20:47:00 ESTalbuterol CFC free 90 mcg/inh Inh Aer w/Adapt 8.5 gm (ProAir): 180 microgram, 2 puff(s), Aerosol, Inhalation, q4hr PRN Wheezing, Routine, Start date 10/06/17 20:54:00 ESTketorolac 30 mg/mL Inj 1 mL: 30 mg = 1 mL, Injection, IV, q6hr PRN Pain for 5 day(s), Stop date 10/12/17 0:04:00 EST, Routine, Start date 10/07/17 0:05:00 ESTmorphine 10 mg/mL Inj: 4 mg = 0.4 mL, Injection, IV Push, q4hr PRN Pain for 5 day(s), Stop date 10/12/17 18:59:00 EST, Routine, Start date 10/07/17 19:00:00 EST, Medications (9) ActiveScheduled: (2)daptomycin (Cubicin) + Sodium Chloride 0.9% 50 mL 493 mg 0.99 EA, IV Piggyback, [id number]-wjxqconvqh 3 g-0.375 g 3.375 gram 1 EA, IV Piggyback, x2xvIvihqsjvhm: (1)Lactated Ringers 1,000 mL 1,000 mL, IV, 125 mL/hrPRN: (6)acetaminophen 325 mg Tab UD [F] 650 mg 2 tab(s), Oral, s1xhbvbxqxqav 0.083% Inh Mary 3 mL [F] 2.5 mg 3 mL, NEB, b6wizkjsprult CFC free 90 mcg/inh Inh Aer w/Adapt 8.5 gm [F] 180 microgram 2 puff(s), Inhalation, c6ykejwaiquut 30 mg/mL Inj 1 mL [F] 30 mg 1 mL, IV, v8fnbanpqezd 10 mg/mL preservative-free SOLN [F] 4 mg 0.4 mL, IV Push, k5uktntyskrthve 2 mg/mL Inj [F] 4 mg 2 mL, IV Push, q6hr Problem list: All ProblemsImpaired skin integrity / SNOMED CT 78254518 / ConfirmedProblem added on documentation of skin impairments.Smoker / IMO [id number] / ConfirmedAdded secondary to documentation in Social History.Resolved: Asthma / SNOMED CT 736488113, Active Problems (2)Impaired skin integrity Smoker Histories Past Medical History: ResolvedAsthma ([id number]): Resolved. Family History: AsthmaMother Procedure history: Incision AND drainage ([id number]).Comments:10/06/2017 06:12 - Philippe Cabezas RN right hand Social History Social & Psychosocial LdlaiiQfckgfj99/26/2017 Risk Assessment: Denies Alcohol UseSubstance Abuse10/05/2017 Risk Assessment: Denies Substance FidklCorlrbk57/26/2017 Risk Assessment: High Risk10/05/2017 Use: Current Every Day Smoker Type: Cigarettes Tobacco use per day: 0.5. Physical Examination Vital Signs 10/08/2017 14:00 EST Hourly Rounding Yes 10/08/2017 13:00 EST Hourly Rounding Yes 10/08/2017 12:00 EST Hourly Rounding Yes Promise to Return Yes 10/08/2017 11:28 EST Heart Rate Monitored 101 bpm HI SpO2 95 % 10/08/2017 11:27 EST Respiratory Rate 18 br/min 10/08/2017 11:27 EST Temperature Oral 37.3 DegC 10/08/2017 11:27 EST Systolic Blood Pressure 141 mmHg HI Diastolic Blood Pressure 71 mmHg Mean Arterial Pressure, Monitered 94 mmHg 10/08/2017 11:00 EST Hourly Rounding Yes 10/08/2017 10:00 EST Hourly Rounding Yes Promise to Return Yes 10/08/2017 09:00 EST Hourly Rounding Yes Promise to Return Yes 10/08/2017 08:26 EST Heart Rate Monitored 92 bpm SpO2 97 % 10/08/2017 08:25 EST Respiratory Rate 20 br/min 10/08/2017 08:25 EST Temperature Oral 36.9 DegC 10/08/2017 08:25 EST Systolic Blood Pressure 103 mmHg Diastolic Blood Pressure 62 mmHg Mean Arterial Pressure, Monitered 76 mmHg 10/08/2017 08:00 EST Blood Pressure Location Left arm Hourly Rounding Yes Promise to Return Yes BP/Pulse Patient Position Sitting 10/08/2017 07:00 EST Hourly Rounding Yes Promise to Return Yes 10/08/2017 06:00 EST Hourly Rounding Yes Promise to Return Yes 10/08/2017 05:00 EST Hourly Rounding Yes Promise to Return Yes 10/08/2017 04:00 EST Hourly Rounding Yes Promise to Return Yes 10/08/2017 03:00 EST Hourly Rounding Yes Promise to Return Yes 10/08/2017 02:00 EST Hourly Rounding Yes Promise to Return Yes 10/08/2017 01:00 EST Hourly Rounding Yes Promise to Return Yes 10/08/2017 00:00 EST Hourly Rounding Yes Promise to Return Yes 10/07/2017 23:26 EST Temperature Oral 38.6 DegC HI 10/07/2017 23:20 EST Peripheral Pulse Rate 112 bpm HI Respiratory Rate 20 br/min Systolic Blood Pressure 106 mmHg Diastolic Blood Pressure 50 mmHg LOW Blood Pressure Location Left arm Mean Arterial Pressure, Cuff 69 mmHg 10/07/2017 23:00 EST Hourly Rounding Yes Promise to Return Yes 10/07/2017 22:00 EST Hourly Rounding Yes Promise to Return Yes 10/07/2017 21:00 EST Hourly Rounding Yes Hourly Rounding Yes Promise to Return Yes Promise to Return Yes 10/07/2017 20:20 EST Heart Rate Monitored 112 bpm HI SpO2 95 % 10/07/2017 20:20 EST Respiratory Rate 18 br/min 10/07/2017 20:20 EST Temperature Oral 38.2 DegC HI 10/07/2017 20:19 EST Systolic Blood Pressure 116 mmHg Diastolic Blood Pressure 67 mmHg Blood Pressure Location Left arm Mean Arterial Pressure, Monitered 83 mmHg BP/Pulse Patient Position Supine 10/07/2017 20:00 EST Hourly Rounding Yes Promise to Return Yes 10/07/2017 19:00 EST Hourly Rounding Yes Promise to Return Yes 10/07/2017 18:00 EST Hourly Rounding Yes Promise to Return Yes 10/07/2017 17:00 EST Hourly Rounding Yes Promise to Return Yes 10/07/2017 16:00 EST Hourly Rounding Yes 10/07/2017 15:00 EST Temperature Oral 36.8 DegC Heart Rate Monitored 86 bpm (Modified) Respiratory Rate 23 br/min HI (Modified) Systolic Blood Pressure 144 mmHg HI Diastolic Blood Pressure 73 mmHg Hourly Rounding Yes SpO2 96 % (Modified) 10/07/2017 14:00 EST Hourly Rounding Yes 10/07/2017 13:00 EST Hourly Rounding Yes 10/07/2017 12:00 EST Hourly Rounding Yes Promise to Return Yes 10/07/2017 11:26 EST Temperature Oral 36.7 DegC Peripheral Pulse Rate 103 bpm HI Respiratory Rate 18 br/min Systolic Blood Pressure 110 mmHg Diastolic Blood Pressure 67 mmHg Blood Pressure Location Left arm Mean Arterial Pressure, Cuff 81 mmHg SpO2 99 % 10/07/2017 11:00 EST Hourly Rounding Yes Promise to Return Yes 10/07/2017 10:00 EST Hourly Rounding Yes Promise to Return Yes 10/07/2017 09:00 EST Hourly Rounding Yes Promise to Return Yes 10/07/2017 08:00 EST Hourly Rounding Yes Promise to Return Yes 10/07/2017 07:22 EST Temperature Oral 37.2 DegC Peripheral Pulse Rate 112 bpm HI Respiratory Rate 18 br/min Systolic Blood Pressure 100 mmHg Diastolic Blood Pressure 53 mmHg LOW Blood Pressure Location Left arm Mean Arterial Pressure, Cuff 69 mmHg SpO2 96 % BP/Pulse Patient Position Sitting 10/07/2017 06:00 EST Hourly Rounding Yes Promise to Return Yes 10/07/2017 04:34 EST Systolic Blood Pressure 126 mmHg Diastolic Blood Pressure 71 mmHg 10/07/2017 04:00 EST Hourly Rounding Yes Promise to Return Yes 10/07/2017 03:00 EST Hourly Rounding Yes Promise to Return Yes 10/07/2017 01:00 EST Hourly Rounding Yes Promise to Return Yes 10/07/2017 00:58 EST Heart Rate Monitored 114 bpm HI SpO2 95 % 10/07/2017 00:58 EST Respiratory Rate 20 br/min 10/07/2017 00:57 EST Temperature Oral 37.9 DegC HI 10/07/2017 00:57 EST Systolic Blood Pressure 96 mmHg Diastolic Blood Pressure 62 mmHg Mean Arterial Pressure, Monitered 74 mmHg Vitals Signs (last 24 hrs) Last Charted Minimum MaximumTemp 37.3 (OCT 08 11:27) 36.8 (OCT 07 15:00) H 38.6 (OCT 07 23:26)Heart Rate H 101 (OCT 08 11:28) 86 (OCT 07 15:00) H 112 (OCT 07 20:20)Resp Rate 18 (OCT 08 11:27) 18 (OCT 07 20:20) H 23 (OCT 07 15:00)SBP H 141 (OCT 08 11:) 103 (OCT 08 08:25) H 144 (OCT 07 15:00)DBP 71 (OCT 08 11:27) L 50 (OCT 07 23:20) 73 (OCT 07 15:00)MAP 94 (OCT 08 11:27) 69 (OCT 07 23:20) 94 (OCT 08 11:27)SpO2 95 (OCT 08 11:28) 95 (OCT 07 20:20) 97 (OCT 08 08:26) Measurements from flowsheet : Measurements 10/08/2017 12:11 EST Height/Length Measured 175 cm Weight Measured 82.1 kg 10/08/2017 06:00 EST Weight Measured 82.1 kg 10/07/2017 06:04 EST Weight Measured 85.4 kg Pain assessment: Pain Assessment 10/08/2017 11:27 EST Preliminary Pain Scale 7 10/08/2017 10:00 EST Pain Symptoms Self Report Yes, able to self report Primary Pain Location Flank Primary Pain Laterality Left Primary Pain Quality Sharp Patient Preferred Pain Tool Numeric rating Numeric Pain Scale 10 = Worst possible pain Numeric Pain Score 10 Primary Pain Interventions Heat, Medications, Repositioning, Rest 10/08/2017 03:00 EST Numeric Pain Scale 8 Numeric Pain Score 8 10/08/2017 02:00 EST Numeric Pain Scale 8 (Modified) Numeric Pain Score 8 (Modified) 10/08/2017 01:00 EST Numeric Pain Scale 3 Numeric Pain Score 3 10/08/2017 00:00 EST Numeric Pain Scale 2 Numeric Pain Score 2 10/07/2017 23:00 EST Numeric Pain Scale 2 Numeric Pain Score 2 10/07/2017 22:00 EST Numeric Pain Scale 2 Numeric Pain Score 2 10/07/2017 21:00 EST Numeric Pain Scale 2 Numeric Pain Score 2 10/07/2017 20:00 EST Numeric Pain Scale 10 = Worst possible pain Numeric Pain Score 10 10/07/2017 19:20 EST Pain Symptoms Self Report Yes, able to self report Primary Pain Location Flank Primary Pain Laterality Left Primary Pain Radiation Yes Primary Pain Radiation Characteristics lower back Patient Preferred Pain Tool Numeric rating Numeric Pain Scale 10 = Worst possible pain Numeric Pain Score 10 10/07/2017 13:40 EST Pain Symptoms Self Report Yes, able to self report Primary Pain Location Flank Primary Pain Laterality Left Primary Pain Radiation Yes Primary Pain Radiation Characteristics lower back Patient Preferred Pain Tool Numeric rating Numeric Pain Scale 8 Numeric Pain Score 8 10/07/2017 10:07 EST Pain Symptoms Self Report Yes, able to self report Primary Pain Location Flank Primary Pain Laterality Left Primary Pain Radiation Yes Primary Pain Radiation Characteristics lower back Patient Preferred Pain Tool Numeric rating Numeric Pain Scale 8 Numeric Pain Score 8 10/07/2017 07:45 EST Pain Symptoms Self Report Yes, able to self report Primary Pain Location Flank Primary Pain Laterality Left Primary Pain Radiation Yes Primary Pain Radiation Characteristics lower back Patient Preferred Pain Tool Numeric rating Numeric Pain Scale 9 Numeric Pain Score 9 Primary Pain Interventions Cold, Medications, Rest . Airway: Mallampati classification: II (soft palate, fauces, uvula visible). Distance: Adequate. Temporomandibular joint mobility: Good. Mouth: Adequate opening. HENT: Normocephalic. Respiratory: Respirations are non-labored. Cardiovascular: Regular rhythm. Integumentary: Warm, [place]. Neurologic: Alert, Oriented. Review / Management Results review: Lab results 10/08/2017 06:19 EST WBC 15.9 E9/L HI RBC 3.7 E12/L LOW Hgb 12.1 gm/dL LOW Hct 34.5 % LOW MCV 92.4 fL MCH 32.3 pg MCHC 34.9 gm/dL RDW 13.4 % Platelet 342.0 E9/L MPV 6.6 fL Neutro Auto 72.6 % Lymph Auto 9.3 % LOW [place] Auto 12.0 % Eos Auto 5.6 % Basophil Auto 0.5 % Neutro Absolute 11.5 E9/L HI Lymph Absolute 1.5 E9/L [place] Absolute 1.9 E9/L HI Eos Absolute 0.9 E9/L HI Basophil Absolute 0.1 E9/L Glucose Lvl 98 mg/dL BUN 7 mg/dL Creatinine 0.8 mg/dL eGFR >60 mL/min/1.73 m2 eGFR AA >60 mL/min/1.73 m2 BUN/Creat Ratio 9 LOW Sodium Lvl 136 mmol/L Potassium Lvl 4.0 mmol/L Chloride 103 mmol/L CO2 28 mmol/L AGAP 9 mEq/L Calcium Lvl 8.2 mg/dL LOW ALT 63 Int._Unit/L HI AST 37 Int._Unit/L 10/07/2017 07:43 EST WBC 19.7 E9/L HI RBC 3.7 E12/L LOW Hgb 11.5 gm/dL LOW Hct 34.2 % LOW MCV 92.2 fL MCH 31.0 pg MCHC 33.7 gm/dL RDW 13.3 % Platelet 323.0 E9/L MPV 7.0 fL Segs Man 63 % Band Man 12 % HI Lymph Man 13 % LOW Monocyte Man 7 % Eos Man 5 % Basophil Man 0 % Segs Abs Man 12.4 E9/L HI Lymph Abs Man 2.6 E9/L [place] Abs Man 1.4 E9/L HI Eos Abs Man 1.0 E9/L HI Basophil Abs Man 0.0 E9/L RBC Morph Normal Toxic Gran Present Dohle Bodies Present Large Plt Present Glucose Lvl 94 mg/dL BUN 8 mg/dL Creatinine 0.8 mg/dL eGFR >60 mL/min/1.73 m2 eGFR AA >60 mL/min/1.73 m2 BUN/Creat Ratio 10 Sodium Lvl 133 mmol/L LOW Potassium Lvl 3.5 mmol/L Chloride 102 mmol/L CO2 25 mmol/L AGAP 10 mEq/L Calcium Lvl 7.9 mg/dL LOW Alk Phos 185 Int._Unit/L HI ALT 65 Int._Unit/L HI AST 45 Int._Unit/L HI Vanco Tr 13 microgram/mL , Labs (Last four charted values)Hgb L 12.1 (OCT 08) L 11.5 (OCT 07) L 13.0 (OCT 05) Hct L 34.5 (OCT 08) L 34.2 (OCT 07) 37.7 (OCT 05) Cr 0.8 (OCT 08) 0.8 (OCT 07) 0.9 (OCT 05) . Chest x-ray results Reviewed radiologist's report ECG interpretation: Reviewed ECG.. Condition: Stable. Plan [place] [employer] (ASA) physical status classification: Class II. Anesthetic Preoperative Plan Anesthesia: General. . Anesthetic plan, risks, benefits, and alternatives discussed with the patient and/or family. Patient verbalized understanding. Risks, benefits, alternatives discussed. Questions answered. . Normal [facility] Comment on above: Result Comment: Elec tronically Signed By: Jose Juan Gomez DO\\.br\\Date and Time Signed: 10/08/17 14:34 EST Progress Note-Physician Patient: WILLOW WILKES Age: 27 years Sex: Male : 1990 Associated Diagnoses: None Author: Sushant DC, Juan Pablo Basic Information 27-year-old male with no significant past medical history presented with complaints of left flank and left lower back pain of about 2-3 weeks duration associated with fever, chills and nausea and was admitted with sepsis present on admission, left flank/left lower back cellulitis with abscess formation, hyponatremia, leukocytosis, elevated LFTs. Subjective Seen and examined. Still complains of significant left flank and lower back pain. Had a fever last night. Denies any fever this morning, nausea or vomiting. Health Status Allergies: Allergic Reactions (Selected)No Known Allergies Current medications: Medications (10) ActiveScheduled: (2)daptomycin (Cubicin) + Sodium Chloride 0.9% 50 mL 493 mg 0.99 EA, IV Piggyback, [id number]-qgftbdasjj 3 g-0.375 g 3.375 gram 1 EA, IV Piggyback, g9vyBztpoafmgs: (2)Lactated Ringers 1,000 mL 1,000 mL, IV, 125 mL/hrSodium Chloride 0.9% 2,190 mL 2,190 mL, IV, 999 mL/hrPRN: (6)acetaminophen 325 mg Tab UD [F] 650 mg 2 tab(s), Oral, m9fpmzxsrcdfw 0.083% Inh Mary 3 mL [F] 2.5 mg 3 mL, NEB, z4ulzvbimsxgg CFC free 90 mcg/inh Inh Aer w/Adapt 8.5 gm [F] 180 microgram 2 puff(s), Inhalation, l9ynsjaezpsgn 30 mg/mL Inj 1 mL [F] 30 mg 1 mL, IV, k7kxohgwmrwv 10 mg/mL preservative-free SOLN [F] 4 mg 0.4 mL, IV Push, f5bmkkkuqeglmjb 2 mg/mL Inj [F] 4 mg 2 mL, IV Push, q6hr Problem list: All ProblemsImpaired skin integrity / SNOMED CT 90012436 / ConfirmedProblem added on documentation of skin impairments.Smoker / IMO [id number] / ConfirmedAdded secondary to documentation in Social History. Histories Past Medical History: ResolvedAsthma ([id number]): Resolved. Family History: AsthmaMother Procedure history: Incision AND drainage (SNOMED CT 317040367).Comments:10/06/2017 06:12 - Raulito THOMPSON, Philippe right hand Social History Social & Psychosocial QzpstjPfimdic64/26/2017 Risk Assessment: Denies Alcohol UseSubstance Abuse10/05/2017 Risk Assessment: Denies Substance BzfjfSyknkqk37/26/2017 Risk Assessment: High Risk10/05/2017 Use: Current Every Day Smoker Type: Cigarettes Tobacco use per day: 0.5. Objective VS/Measurements: Vitals Signs (last 24 hrs) Last Charted Minimum MaximumTemp 37.3 (OCT 08:) 36.8 (OCT 07 15:00) H 38.6 (OCT 07:)Heart Rate H 101 (OCT 08:) 86 (OCT 07 15:00) H 112 (OCT 07 20:20)Resp Rate 18 (OCT 08:) 18 (OCT 07 20:20) H 23 (OCT 07 15:00)SBP H 141 (OCT 08:) 103 (OCT 08 08:25) H 144 (OCT 07 15:00)DBP 71 (OCT 08:) L 50 (OCT 07 23:20) 73 (OCT 07 15:00)MAP 94 (OCT 08:) 69 (OCT 07 23:20) 94 (OCT 08:)SpO2 95 (OCT 08:) 95 (OCT 07 20:20) 97 (OCT 08:). Vitals Signs (last 24 hrs) Last Charted Minimum MaximumTemp 37.3 (OCT 08) 36.8 (OCT 07 15:00) H 38.6 (OCT 07:)Heart Rate H 101 (OCT 08:) 86 (OCT 07 15:00) H 112 (OCT 07 20:20)Resp Rate 18 (OCT 08:) 18 (OCT 07 20:20) H 23 (OCT 07 15:00)SBP H 141 (OCT 08:) 103 (OCT 08 08:25) H 144 (OCT 07 15:00)DBP 71 (OCT 08:) L 50 (OCT 07 23:20) 73 (OCT 07 15:00)MAP 94 (OCT 08:) 69 (OCT 07 23:20) 94 (OCT 08 11:27)SpO2 95 (OCT 08 11:28) 95 (OCT 07 20:20) 97 (OCT 08 08:26) General: Alert and oriented, No acute distress. Eye: Pupils are equal, round and reactive to light, Extraocular movements are intact. HENT: Normocephalic. Neck: Supple. Respiratory: Lungs are clear to auscultation, Respirations are non-labored. Cardiovascular: Normal rate, Regular rhythm. Gastrointestinal: Soft, Non-distended, Normal bowel sounds. Musculoskeletal Normal range of motion. Left flank and left paralumbar redness and area of increased tenderness and mild fluctuance measuring about 10 cm x 6 cm. no obvious puncture wound or point of entry.. Neurologic: Alert, Oriented. Psychiatric: Cooperative, Appropriate mood & affect. Review / Management Results review: Lab results 10/08/2017 06:19 EST WBC 15.9 E9/L HI RBC 3.7 E12/L LOW Hgb 12.1 gm/dL LOW Hct 34.5 % LOW MCV 92.4 fL MCH 32.3 pg MCHC 34.9 gm/dL RDW 13.4 % Platelet 342.0 E9/L MPV 6.6 fL Neutro Auto 72.6 % Lymph Auto 9.3 % LOW [place] Auto 12.0 % Eos Auto 5.6 % Basophil Auto 0.5 % Neutro Absolute 11.5 E9/L HI Lymph Absolute 1.5 E9/L [place] Absolute 1.9 E9/L HI Eos Absolute 0.9 E9/L HI Basophil Absolute 0.1 E9/L Glucose Lvl 98 mg/dL BUN 7 mg/dL Creatinine 0.8 mg/dL eGFR >60 mL/min/1.73 m2 eGFR AA >60 mL/min/1.73 m2 BUN/Creat Ratio 9 LOW Sodium Lvl 136 mmol/L Potassium Lvl 4.0 mmol/L Chloride 103 mmol/L CO2 28 mmol/L AGAP 9 mEq/L Calcium Lvl 8.2 mg/dL LOW ALT 63 Int._Unit/L HI AST 37 Int._Unit/L . Diagnostic Findings: * Final Report *Reason For ExamOther (please specify)POWERSCRIBE REPORTIMPRESSION: PROBABLE 10.3 X 5.3 X 3.4 CM ABSCESS WITHIN THE SOFT TISSUES OF THELOWER BACK AT THE AREA OF CLINICAL CONCERN.CLINICAL HISTORY: Swelling and erythema lower back.COMPARISON: CT abdomen and pelvis without contrast 10/05/2017.TECHNIQUE: Transabdominal ultrasound of the lower back was performed in the area ofclinical concern.FINDINGS: An ovoid complex fluid collection within the superficial subcutaneous tissues of thelower back to the left of midline measuring 10.3 x 5.3 x 3.4 cm (sagittal, transverseand AP dimensions respectively) is highly suspicious for an abscess, approximately1.5 cm deep to the skin surface.Signature Line FINAL REPORT Dictated: 10/08/2017 8:58 am Yury Delarosa MDigned (Electronic Signature): 10/08/2017 8:58 amSigned by: Yury Delarosa MDTranscribed by: JENNIFFER Technologist: CHUCK Fernandes document has an imageResult type: US Abdomen, LimitedResult date: October 07, 2017 18:20 ESTResult status: Auth (Verified)Result title: US Abdomen, LimitedPerformed by: Yury Delarosa MD on October 08, 2017 08:58 ESTVerified by: Yury Delarosa MD on October 08, 2017 08:58 [facility] info: [id number], Abdi Yauco, Inpatient, 10/05/2017 - . Condition: Fair. Impression and Plan 27-year-old male with no significant past medical history presented with complaints of left flank and left lower back pain of about 2-3 weeks duration associated with fever, chills and nausea and was admitted with sepsis present on admission, left flank/left lower back cellulitis with abscess formation, hyponatremia, leukocytosis, elevated LFTs.- Sepsis?present on admission?secondary to left flank/left lower back cellulitis. Sepsis is resolving. Treating underlying disease process. Blood cultures so far not isolating any organisms.-Left flank/left lower back cellulitis with abscess formation?infectious disease specialist consult reviewed by me. I appreciate and I agree with recommendations. IV antibiotics changed to daptomycin and Zosyn. I reviewed ultrasound that shows probable abscess formation. I consulted general surgeon. I spoke with general surgeon who advised that patient should be kept nothing by mouth for possible incision and drainage today.- Hyponatremia?improving. Continue on IV fluid. I reviewed labs and sodium level is 136.- Leukocytosis?secondary to above infectious process. I reviewed labs and WBC is trending down at 15,900. Bands have resolved.- Elevated LFTs?maybe secondary to above infectious process. I ordered hepatitis C antibody test.- Tobacco dependence?advised on cessation. Continue nicotine patch.- DVT prophylaxis?early ambulation.Disposition: Pending I and D and deep tissue culture result. Normal [facility] Comment on above: Result Comment: Elec tronically Signed By: Sushant DC, Juan Pablo\\.br\\Date and Time Signed: 10/08/17 11:48 EST US Abdomen, Limitedon 2016 US Abdomen, Limited Exam Date/Time:10/07/2017 18:20 ESTReason for Exam:Other (please specify)ReportIMPRESSION: PROBABLE 10.3 X 5.3 X 3.4 CM ABSCESS WITHIN THE SOFT TISSUES OF THELOWER BACK AT THE AREA OF CLINICAL CONCERN.CLINICAL HISTORY: Swelling and erythema lower back.COMPARISON: CT abdomen and pelvis without contrast 10/05/2017.TECHNIQUE: Transabdominal ultrasound of the lower back was performed in the area ofclinical concern.FINDINGS: An ovoid complex fluid collection within the superficial subcutaneous tissues of thelower back to the left of midline measuring 10.3 x 5.3 x 3.4 cm (sagittal, transverseand AP dimensions respectively) is highly suspicious for an abscess, approximately1.5 cm deep to the skin surface. FINAL REPORT Dictated: 10/08/2017 8:58 am Yury Delarosa MD Signed (Electronic Signature): 10/08/2017 8:58 am Signed by: Yury Delarosa MD Transcribed by: JENNIFFER Technologist: BRIT Normal [facility] eGFRon 10-08-2017 eGFR (black) mL/min/{1.73_m2} Normal >=59 [facility] Comment on above: Order Comment: Order added by Discern Expert. Result Comment: eGFR is race adjusted. AA=. Performed By: #### 1 [id number], 1509026, 15310950, 7480417, 91146572, 8433555, 3163734 ####[facility] [address] [place] [id number] eGFR (non-black) mL/min/{1.73_m2} Normal >=59 [facility] Comment on above: Order Comment: Order added by Discern Expert. Result Comment: Stamp Mounter curt kidney disease could be indicated at eGFR's of less than 60 mL/min/1.73m2. Kidney failure is indicated at less than 15 mL/min/1.73m2. Performed By: #### 1 [id number], 0784683, 32771942, 2492015, 08855717, 6165943, 5958542 ####[facility] [address] [place] [address] .Manual Abson 10-07-2017 BASOPHILS/LEUKOCYT ES:NFR.DF:PT:BLD:Q N:MANUAL COUNT 0.0 E9/L Normal 0.0-0.2 [facility] Comment on above: Performed By: #### 1 [id number], 3940871, 56735394, 5741710, 27032924, 7139174, 0055800 ####[facility] [address] [place] [address] EOSINOPHILS/LEUKOC YTES:NFR.DF:PT:BLD :QN:MANUAL COUNT 1.0 E9/L High 0.0-0.5 [facility] Comment on above: Performed By: #### 1 [id number], 1171975, 11668994, 7383251, 00938821, 0070614, 4226649 ####[facility] [address] [place] [address] LYMPHOCYTES/LEUKOC YTES:NFR.DF:PT:BLD :QN:MANUAL COUNT 2.6 E9/L Normal 1.0-4.0 [facility] Comment on above: Performed By: #### 1 [id number], 1402204, 37883428, 7793125, 03826510, 3472658, 8952587 ####[facility] [address] [place] [address] MONOCYTES/LEUKOCYT ES:NFR.DF:PT:BLD:Q N:MANUAL COUNT 1.4 E9/L High 0.2-1.0 [facility] Comment on above: Performed By: #### 1 7135140, 7613883, 36108075, 1987840, 17141589, 2044540, 3829661 ####[facility] [address] [place] [address] Neutrophils 12.4 E9/L High 2.0-7.5 [facility] Comment on above: Performed By: #### 1 1834405, 5896872, 98044215, 8840050, 38368203, 2491416, 0812668 ####[facility] [address] [place] [address] Dino 10-07-2017 Alanine aminotransferase (ALT) 65 Int._Unit/L High 6-46 [facility] Comment on above: Performed By: #### 1 6769557, 6819949, 30764641, 1427979, 45659422, 1495430, 6813052 ####[place] [place] [address] Navid 10-07-2017 Aspartate aminotransferase (AST) 45 Int._Unit/L High 5-43 [facility] Comment on above: Performed By: #### 1 8638514, 0344361, 39449865, 5336793, 75013391, 0324477, 9359998 ####[facility] [address] [place] [address] Alk Phoson 10-07-2017 Alkaline phosphatase (ALP) 185 Int._Unit/L High 21-98 [facility] Comment on above: Performed By: #### 1 2033922, 3408332, 30904741, 1823514, 13537848, 9230253, 3718940 ####[facility] [address] [place] [address] BMPon 10-07-2017 Anion gap 10 mmol/L Normal 6-16 [facility] Comment on above: Order Comment: to be drawn all together at 7:30-8:00 per nurse Performed By: #### 1 8277427, 9453421, 91827099, 4268399, 18713869, 7054969, 3361681 ####[facility] [address] [place] [address] BUN/Creatinine Ratio 10 No Units Normal 10-20 [facility] Comment on above: Order Comment: to be drawn all together at 7:30-8:00 per nurse Performed By: #### 1 2526905, 4188544, 93904950, 7715696, 88158661, 9863919, 4968838 ####[facility] [address] [place] [address] Calcium 7.9 mg/dL Low 8.9-11.1 [facility] Comment on above: Order Comment: to be drawn all together at 7:30-8:00 per nurse Performed By: #### 1 2145209, 5275048, 89748809, 3550797, 61901434, 0989545, 8114280 ####[facility] [address] [place] [address] Chloride 102 mmol/L Normal 101-111 [facility] Comment on above: Order Comment: to be drawn all together at 7:30-8:00 per nurse Performed By: #### 1 1552810, 1746090, 19704523, 6003084, 62316920, 8937796, 2796488 ####[facility] [address] [place] [address] CO2 25 mmol/L Normal 21-31 [facility] Comment on above: Order Comment: to be drawn all together at 7:30-8:00 per nurse Performed By: #### 1 1805661, 5812957, 93882216, 5271943, 66867963, 2405756, 3100584 ####[facility] [address] [place] [address] Creatinine 0.8 mg/dL Normal 0.5-1.3 [facility] Comment on above: Order Comment: to be drawn all together at 7:30-8:00 per nurse Performed By: #### 1 5946478, 8512146, 21124061, 7446018, 86974299, 4754092, 4701968 ####[facility] [address] [place] [address] Glucose mass conc 94 mg/dL Normal 55-199 [facility] Comment on above: Order Comment: to be drawn all together at 7:30-8:00 per nurse Result Comment: If t his glucose result represents a fasting glucose, interpretation should refer to the following reference range: 55-99 mg/dL Performed By: #### 1 5848003, 2043198, 77553544, 3249853, 26438245, 0038247, 9768481 ####[facility] [address] [place] [address] Potassium molar conc 3.5 mmol/L Normal 3.5-5.3 [facility] Comment on above: Order Comment: to be drawn all together at 7:30-8:00 per nurse Performed By: #### 1 6659738, 2501394, 09925908, 4462534, 08359044, 1820687, 8902228 ####[facility] [address] [place] [address] Sodium 133 mmol/L Low 135-145 [facility] Comment on above: Order Comment: to be drawn all together at 7:30-8:00 per nurse Performed By: #### 1 6245509, 0515545, 35473809, 8135099, 90682046, 8919557, 0630935 ####[facility] [address] [place] [address] Urea nitrogen 8 mg/dL Normal 5-21 [facility] Comment on above: Order Comment: to be drawn all together at 7:30-8:00 per nurse Performed By: #### 1 8547460, 7316469, 40588577, 2170729, 11322827, 2871856, 0309483 ####[facility] [address] [place] [address] CBC w/ Auto Diffon 7 Erythrocyte distribution width Auto Ratio (RBC) 13.3 % Normal 10.9-14.2 [facility] Comment on above: Performed By: #### 1 1485273, 2367905, 00984892, 8968073, 20545389, 8861179, 7257638 ####[facility] [address] [place] [address] Erythrocytes (RBC) 3.7 E12/L Low 4.3-5.9 [facility] Comment on above: Performed By: #### 1 2835794, 7354824, 05896387, 6274182, 41392414, 6063953, 3282102 ####[address] [place] [address] Hematocrit (HCT) 34.2 % Low 37.7-49.0 [facility] Comment on above: Performed By: #### 1 0234876, 1899825, 59571900, 9632852, 62202559, 6714913, 1483365 ####[address] [place] [address] Hemoglobin mass conc (Bld) 11.5 g/dL Low 13.5-17.5 [facility] Comment on above: Performed By: #### 1 8710530, 9127586, 35894080, 4513441, 43832334, 2116371, 3894538 ####[place] [address] MCH 31.0 pg Normal 27.0-34.0 [facility] Comment on above: Performed By: #### 1 8641668, 0842364, 74522325, 0827846, 53895381, 9990913, 6817290 ####[place] [address] MCHC mass conc (RBC) 33.7 g/dL Normal 31.4-39.3 [facility] Comment on above: Performed By: #### 1 1978626, 9642490, 50427756, 3014488, 86061482, 6232912, 3757907 ####[place] [place] [address] MCV 92.2 fL Normal 80.0-100.0 [facility] Comment on above: Performed By: #### 1 4815445, 8673244, 12923475, 7470056, 98409400, 1132457, 2279846 ####[place] [address] [place] [address] Platelet mean volume (PMV) 7.0 fL Normal 6.4-10.8 [facility] Comment on above: Performed By: #### 1 [id number], 2757673, 14615040, 8327054, 74548309, 4695641, 4523801 ####[facility] [address] [place] [address] Platelets 323.0 E9/L Normal 150.0-500. 0 [facility] Comment on above: Performed By: #### 1 4390006, 6378780, 62602968, 7509882, 67144130, 2795813, 0326968 ####[address] [place] [address] WBC (Leukocytes) 19.7 E9/L High 4.0-11.0 [facility] Comment on above: Performed By: #### 1 3646776, 9636515, 88786419, 6757834, 71652487, 7580540, 6867470 ####[address] [address] Coding Queryon 10-07-2017 Coding Query -From: Cayetano THOMPSON, Yissel Portillo To: Jesse Davidson DO; Sent: 10/06/2017 14:29:26 EST !Subject: Coding Query Due Date/Time: 10/07/2017 14:29:[address] Davidson, Documentation Request Documentation in the medical record indicates this patient has been admitted with or diagnosed as having:SepsisThe following is also documented in the medical record:10/05 Lactic acid 7.7, then 5.1, WBC 19.712/ T 38, HR 130, BP 128/49Based on your medical judgment, can you please further validate the above diagnosis with additional clinical indicators that cannot be explained by the infectious process? [___] In response to this query:[___] The above diagnosis is not supported by clinical indicators and is ruled out.[___] The above diagnosis is supported by the following clinical indicators: In responding to this request, please exercise your independent professional judgment. The fact that a question is asked does not imply that any particular answer is desired or expected. Thank you!Yissel nash [phone] From: Jesse Davidson DO To: Cayetano THOMPSON, Yissel Portillo; Sent: 10/07/2017 17:43:37 ESTSubject: RE: Coding Query sepsis is supported by the high WBC and the elevated HR in addition to fever. thank you. Normal [facility] Interdisciplinary Note - Brett e Manageron 10-07-2017 Interdisciplinary Note - Senior Principal Rounding with Dr. Davidson, Marisa [facility], Trey [facility], Maryann RN. Whiteboard updated. No family present. Dr. Cyr to see tomorrow. Pt. in isolation. Pt. aware of plan to stay today and Dr. Cyr to see tomorrow. Normal [facility] Manual Diffon 10-07-2017 BASOPHILS:NCNC:PT: BLD:QN:MANUAL COUNT 0 % Normal 0-2 [facility] Comment on above: Order Comment: Order Added by Discern Expert. Performed By: #### 1 [id number], 2861751, 80819305, 5369432, 96956336, 2898014, 8779505 ####[facility] [address] [place] [address] Blood morphology Normal Normal [facility] Comment on above: Order Comment: Order Added by Discern Expert. Performed By: #### 1 0140789, 6765757, 94815707, 3824775, 08369051, 9577218, 3083917 ####[facility] [address] [place] [address] DOHLE BODY:PRTHR:PT:BLD: ORD:MICROSCOPY.LIG HT Present Normal [facility] Comment on above: Order Comment: Order Added by Discern Expert. Performed By: #### 1 0590425, 1947791, 02815945, 2186888, 56621623, 7074189, 0568087 ####[address] [place] [address] EOSINOPHILS:NCNC:P T:BLD:QN:MANUAL COUNT 5 % Normal 0-8 [facility] Comment on above: Order Comment: Order Added by Discern Expert. Performed By: #### 1 3449500, 6336953, 17980923, 7193641, 35616506, 1850400, 1758327 ####[address] [address] LYMPHOCYTES:NCNC:P T:BLD:QN:MANUAL COUNT 13 % Low 14-50 [facility] Comment on above: Order Comment: Order Added by Discern Expert. Performed By: #### 1 9814507, 0261961, 41398453, 3032841, 63382079, 8758201, 4799251 ####[address] [address] MONOCYTES:NCNC:PT: BLD:QN:MANUAL COUNT 7 % Normal 4-14 [facility] Comment on above: Order Comment: Order Added by Discern Expert. Performed By: #### 1 6215467, 1744352, 66878426, 2177815, 33259271, 5743745, 5987414 ####[address] [place] [address] Neutrophils band/100 leukocytes 12 % High 0-10 [facility] Comment on above: Order Comment: Order Added by Discern Expert. Performed By: #### 1 8551999, 1572966, 32516211, 5972304, 79071673, 5216122, 3196326 ####[address] [place] [address] NEUTROPHILS.SEGMEN RENETTA:NCNC:PT:BLD:QN :MANUAL COUNT 63 % Normal 36-75 [facility] Comment on above: Order Comment: Order Added by Discern Expert. Performed By: #### 1 5824738, 8219134, 41044245, 0675754, 94802794, 3950387, 8119718 ####[facility] [address] [place] [address] PLATELETS.LARGE:NM THR:PT:BLD:ORD:LARISA ROSCOPY.LIGHT Present Normal [facility] Comment on above: Order Comment: Order Added by Discern Expert. Performed By: #### 1 6080137, 1348217, 19824404, 2508983, 83002062, 2840426, 9546628 ####[facility] [address] [place] [address] Toxic Gran Present Normal [facility] Comment on above: Order Comment: Order Added by Discern Expert. Performed By: #### 1 2973934, 6036442, 53522614, 3598631, 57593152, 5465084, 2478253 ####[facility] [address] [place] [address] Progress Note-Physicianon Progress Note-Physician Patient: WILLOW WILKES Age: 27 years Sex: Male : 1990 Associated Diagnoses: None Author: Jesse Davidson DO History of Present Illness Patient is still complaining of pain and discomfort Health Status Allergies: Allergic Reactions (Selected)No Known Allergies, Allergies (1) Active ReactionNo Known Allergies None Documented Current medications: Medications (10) ActiveScheduled: (2)piperacillin-tazobactam 3 g-0.375 g 3.375 gram 1 EA, IV Piggyback, k4iudsdyhcmxbq + Sodium Chloride 0.9% 500 mL 2 gram 2 EA, IV Piggyback, x00moFqnfwprhdy: (2)Sodium Chloride 0.9% 1,000 mL 1,000 mL, IV, 125 mL/hrSodium Chloride 0.9% 2,190 mL 2,190 mL, IV, 999 mL/hrPRN: (6)acetaminophen 325 mg Tab UD [F] 650 mg 2 tab(s), Oral, j5vezewjdhzuo 0.083% Inh Mary 3 mL [F] 2.5 mg 3 mL, NEB, m3eviittvznsg CFC free 90 mcg/inh Inh Aer w/Adapt 8.5 gm [F] 180 microgram 2 puff(s), Inhalation, j7xarvhscbduy 30 mg/mL Inj 1 mL [F] 30 mg 1 mL, IV, a0obisenokvt 10 mg/mL preservative-free SOLN [F] 2 mg 0.2 mL, IV Push, u7fmpuejnycrqvt 2 mg/mL Inj [F] 4 mg 2 mL, IV Push, q6hr Problem list: All ProblemsImpaired skin integrity / SNOMED CT 93594384 / ConfirmedProblem added on documentation of skin impairments.Smoker / IMO [id number] / ConfirmedAdded secondary to documentation in Social History. Physical Examination Vital Signs 10/07/2017 15:00 EST Temperature Oral 36.8 DegC Heart Rate Monitored 86 bpm (Modified) Respiratory Rate 23 br/min HI (Modified) Systolic Blood Pressure 144 mmHg HI Diastolic Blood Pressure 73 mmHg SpO2 96 % (Modified) 10/07/2017 12:00 EST Hourly Rounding Yes Promise to Return Yes 10/07/2017 11:26 EST Temperature Oral 36.7 DegC Peripheral Pulse Rate 103 bpm HI Respiratory Rate 18 br/min Systolic Blood Pressure 110 mmHg Diastolic Blood Pressure 67 mmHg Blood Pressure Location Left arm Mean Arterial Pressure, Cuff 81 mmHg SpO2 99 % 10/07/2017 11:00 EST Hourly Rounding Yes Promise to Return Yes 10/07/2017 10:00 EST Hourly Rounding Yes Promise to Return Yes 10/07/2017 09:00 EST Hourly Rounding Yes Promise to Return Yes 10/07/2017 08:00 EST Hourly Rounding Yes Promise to Return Yes 10/07/2017 07:22 EST Temperature Oral 37.2 DegC Peripheral Pulse Rate 112 bpm HI Respiratory Rate 18 br/min Systolic Blood Pressure 100 mmHg Diastolic Blood Pressure 53 mmHg LOW Blood Pressure Location Left arm Mean Arterial Pressure, Cuff 69 mmHg SpO2 96 % BP/Pulse Patient Position Sitting 10/07/2017 06:00 EST Hourly Rounding Yes Promise to Return Yes 10/07/2017 04:34 EST Systolic Blood Pressure 126 mmHg Diastolic Blood Pressure 71 mmHg 10/07/2017 04:00 EST Hourly Rounding Yes Promise to Return Yes 10/07/2017 03:00 EST Hourly Rounding Yes Promise to Return Yes 10/07/2017 01:00 EST Hourly Rounding Yes Promise to Return Yes 10/07/2017 00:58 EST Heart Rate Monitored 114 bpm HI SpO2 95 % 10/07/2017 00:58 EST Respiratory Rate 20 br/min 10/07/2017 00:57 EST Temperature Oral 37.9 DegC HI 10/07/2017 00:57 EST Systolic Blood Pressure 96 mmHg Diastolic Blood Pressure 62 mmHg Mean Arterial Pressure, Monitered 74 mmHg 10/06/2017 21:40 EST Peripheral Pulse Rate 104 bpm HI Respiratory Rate 18 br/min SpO2 98 % 10/06/2017 21:38 EST Respiratory Rate 18 br/min 10/06/2017 21:02 EST Hourly Rounding Yes Promise to Return Yes 10/06/2017 19:53 EST Heart Rate Monitored 105 bpm HI SpO2 98 % 10/06/2017 19:53 EST Respiratory Rate 16 br/min 10/06/2017 19:52 EST Temperature Oral 37 DegC 10/06/2017 19:52 EST Systolic Blood Pressure 102 mmHg Diastolic Blood Pressure 60 mmHg Blood Pressure Location Left arm Mean Arterial Pressure, Monitered 74 mmHg BP/Pulse Patient Position Supine 10/06/2017 18:00 EST Hourly Rounding Yes 10/06/2017 17:00 EST Hourly Rounding Yes 10/06/2017 16:00 EST Hourly Rounding Yes 10/06/2017 15:35 EST Heart Rate Monitored 104 bpm HI SpO2 97 % 10/06/2017 15:34 EST Systolic Blood Pressure 93 mmHg Diastolic Blood Pressure 58 mmHg LOW Mean Arterial Pressure, Monitered 69 mmHg 10/06/2017 15:32 EST Temperature Oral 37 DegC 10/06/2017 15:00 EST Hourly Rounding Yes 10/06/2017 14:00 EST Hourly Rounding Yes 10/06/2017 13:26 EST Temperature Oral 37.8 DegC HI Systolic Blood Pressure 110 mmHg Diastolic Blood Pressure 40 mmHg LOW Hourly Rounding Yes 10/06/2017 13:00 EST Hourly Rounding Yes 10/06/2017 12:00 EST Hourly Rounding Yes 10/06/2017 11:08 EST Hourly Rounding Yes Promise to Return Yes 10/06/2017 10:21 EST Hourly Rounding Yes Promise to Return Yes 10/06/2017 09:00 EST Hourly Rounding Yes 10/06/2017 08:00 EST Hourly Rounding Yes 10/06/2017 07:31 EST Heart Rate Monitored 131 bpm HI SpO2 94 % 10/06/2017 07:30 EST Systolic Blood Pressure 106 mmHg Diastolic Blood Pressure 56 mmHg LOW Blood Pressure Location Left arm Mean Arterial Pressure, Monitered 73 mmHg BP/Pulse Patient Position Supine 10/06/2017 07:00 EST Hourly Rounding Yes 10/06/2017 06:32 EST Hourly Rounding Yes Promise to Return Yes 10/06/2017 06:02 EST Temperature Oral 38 DegC HI Peripheral Pulse Rate 130 bpm HI Respiratory Rate 24 br/min HI Systolic Blood Pressure 128 mmHg Diastolic Blood Pressure 49 mmHg LOW Blood Pressure Location Left arm SpO2 97 % 10/06/2017 06:00 EST Hourly Rounding Yes Promise to Return Yes 10/06/2017 05:00 EST Hourly Rounding Yes Promise to Return Yes 10/06/2017 03:27 EST Heart Rate Monitored 124 bpm HI Respiratory Rate Monitored 16 br/min Systolic Blood Pressure 96 mmHg Diastolic Blood Pressure 43 mmHg LOW Mean Arterial Pressure, Cuff 61 mmHg SpO2 99 % 10/06/2017 03:02 EST Heart Rate Monitored 124 bpm HI Respiratory Rate Monitored 16 br/min Systolic Blood Pressure 98 mmHg Diastolic Blood Pressure 50 mmHg LOW Mean Arterial Pressure, Cuff 66 mmHg SpO2 100 % 10/06/2017 02:25 EST Heart Rate Monitored 123 bpm HI Respiratory Rate Monitored 16 br/min Systolic Blood Pressure 97 mmHg Diastolic Blood Pressure 45 mmHg LOW Mean Arterial Pressure, Cuff 62 mmHg SpO2 98 % 10/06/2017 02:11 EST Heart Rate Monitored 128 bpm HI Respiratory Rate Monitored 20 br/min SpO2 98 % 10/06/2017 01:43 EST Heart Rate Monitored 122 bpm HI Respiratory Rate Monitored 18 br/min Systolic Blood Pressure 105 mmHg Diastolic Blood Pressure 50 mmHg LOW Mean Arterial Pressure, Cuff 68 mmHg SpO2 100 % 10/06/2017 01:29 EST Heart Rate Monitored 126 bpm HI Respiratory Rate Monitored 18 br/min Systolic Blood Pressure 99 mmHg Diastolic Blood Pressure 51 mmHg LOW Mean Arterial Pressure, Cuff 67 mmHg SpO2 97 % 10/06/2017 00:49 EST Heart Rate Monitored 123 bpm HI Respiratory Rate Monitored 18 br/min Systolic Blood Pressure 105 mmHg Diastolic Blood Pressure 53 mmHg LOW Mean Arterial Pressure, Cuff 70 mmHg SpO2 98 % 10/06/2017 00:15 EST Heart Rate Monitored 125 bpm HI Respiratory Rate Monitored 16 br/min Systolic Blood Pressure 111 mmHg Diastolic Blood Pressure 51 mmHg LOW Mean Arterial Pressure, Cuff 71 mmHg SpO2 98 % Vitals Signs (last 24 hrs) Last Charted Minimum MaximumTemp 36.8 (OCT 07 15:00) 36.7 (OCT 07 11:26) H 37.9 (OCT 07 00:57)Heart Rate 86 (OCT 07 15:00) 86 (OCT 07 15:00) H 114 (OCT 07 00:58)Resp Rate H 23 (OCT 07 15:00) 16 (OCT 06 19:53) H 23 (OCT 07 15:00)SBP H 144 (OCT 07 15:00) 96 (OCT 07 00:57) H 144 (OCT 07 15:00)DBP 73 (OCT 07 15:00) L 53 (OCT 07 07:22) 73 (OCT 07 15:00)MAP 81 (OCT 07 11:26) 69 (OCT 07 07:22) 81 (OCT 07:26)SpO2 96 (OCT 07 15:00) 95 (OCT 07 00:58) 99 (OCT 07:) General: Alert and oriented, Mild distress. Respiratory: Respirations are non-labored, mild wheezing. Cardiovascular: tavhycardic, S1S2. Gastrointestinal: Soft, Non-tender. Genitourinary: CVA tenderness. Musculoskeletal Normal range of motion. Normal strength. Integumentary: redness involving all lower lower back extending to mid back with redness extending to abdomen, hot and erythamatous to touch, noted enduration in the low back, will obtain US to assess. Neurologic: Alert, Oriented. Cognition and Speech: Oriented, Speech clear and coherent. Psychiatric: Cooperative, Appropriate mood & affect. Osteopathic: No TTA is supine or seated position Review / Management Results review: Labs (Last four charted values)Hgb L 11.5 (OCT 07) L 13.0 (OCT 05) Hct L 34.2 (OCT 07) 37.7 (OCT 05) Cr 0.8 (OCT 07) 0.9 (OCT 05) , All Results 10/07/2017 07:43 EST WBC 19.7 E9/L HI RBC 3.7 E12/L LOW Hgb 11.5 gm/dL LOW Hct 34.2 % LOW MCV 92.2 fL MCH 31.0 pg MCHC 33.7 gm/dL RDW 13.3 % Platelet 323.0 E9/L MPV 7.0 fL Segs Man 63 % Band Man 12 % HI Lymph Man 13 % LOW Monocyte Man 7 % Eos Man 5 % Basophil Man 0 % Segs Abs Man 12.4 E9/L HI Lymph Abs Man 2.6 E9/L [place] Abs Man 1.4 E9/L HI Eos Abs Man 1.0 E9/L HI Basophil Abs Man 0.0 E9/L RBC Morph Normal Toxic Gran Present Dohle Bodies Present Large Plt Present Glucose Lvl 94 mg/dL BUN 8 mg/dL Creatinine 0.8 mg/dL eGFR >60 mL/min/1.73 m2 eGFR AA >60 mL/min/1.73 m2 BUN/Creat Ratio 10 Sodium Lvl 133 mmol/L LOW Potassium Lvl 3.5 mmol/L Chloride 102 mmol/L CO2 25 mmol/L AGAP 10 mEq/L Calcium Lvl 7.9 mg/dL LOW Alk Phos 185 Int._Unit/L HI ALT 65 Int._Unit/L HI AST 45 Int._Unit/L HI Vanco Tr 13 microgram/mL . Impression and Plan - abdominal wall / Flank Cellulitis with concern for phlegmon/possible early abcess on CT and associated sepsis present on admission . patient will be on Vancomycin and zosyn . I will obtain US to see if there is more loculated abcess that could potentially be drained . Hemodynamic support . IV fluids . check blood cultures, so far are still negative . I have personally checked with lab . IV morphine/Toradol . ID consult- Hyponatremia:Improving . Cont with IV fluids . Monitor BMP- Mild elevation in LFTs: , recheck in am- Tobacco abuse . Counseled on the need for cessation- DVT proph: . AmbulationCase discussed with surgery over the phone yesterday( ), there is no focal abcess to drain on CT , I will check US of induration today to see if more focal area has shown up , if positive then will officially consult surgery for possible I&D Normal [facility] Comment on above: Result Comment: Elec tronically Signed By: Jesse Davidson DO\\.br\\Date and Time Signed: 10/07/17 16:33 EST Vanco Troughon 10-07-2017 VANCOMYCIN 13 microgram/mL Normal - [facility] Comment on above: Performed By: #### 1 4606986, 2508992, 97134140, 9103849, 68297795, 3928956, 7069417 ####[facility] [address] [place] [address] eGFRon 10-07-2017 eGFR (black) mL/min/{1.73_m2} Normal >=59 [facility] Comment on above: Order Comment: Order added by Discern Expert. Result Comment: eGFR is race adjusted. AA=. Performed By: #### 1 3044281, 7923200, 42468274, 5468095, 51766058, 6359905, 4161556 ####[facility] [address] [place] [address] eGFR (non-black) mL/min/{1.73_m2} Normal >=59 [facility] Comment on above: Order Comment: Order added by Discern Expert. Result Comment: Stamp Mounter curt kidney disease could be indicated at eGFR's of less than 60 mL/min/1.73m2. Kidney failure is indicated at less than 15 mL/min/1.73m2. Performed By: #### 1 5449597, 1447127, 33858628, 6278229, 95934567, 8864205, 4688366 ####[facility] [address] [place] [address] .Manual Abson 10-06-2017 BASOPHILS/LEUKOCYT ES:NFR.DF:PT:BLD:Q N:MANUAL COUNT 0.0 E9/L Normal 0.0-0.2 [facility] Comment on above: Performed By: #### 1 1644444, 8221912, 64527167, 0156453, 89686270, 4733319, 7846664 ####[facility] [address] [place] [address] EOSINOPHILS/LEUKOC YTES:NFR.DF:PT:BLD :QN:MANUAL COUNT 0.0 E9/L Normal 0.0-0.5 [facility] Comment on above: Performed By: #### 1 3477218, 0934965, 64927400, 9626222, 37727307, 3733960, 6664255 ####[facility] [address] [place] [address] LYMPHOCYTES/LEUKOC YTES:NFR.DF:PT:BLD :QN:MANUAL COUNT 1.0 E9/L Normal 1.0-4.0 [facility] Comment on above: Performed By: #### 1 2860201, 3602327, 27749396, 9817641, 32775736, 6522953, 0151493 ####[facility] [address] [place] [address] MONOCYTES/LEUKOCYT ES:NFR.DF:PT:BLD:Q N:MANUAL COUNT 2.6 E9/L High 0.2-1.0 [facility] Comment on above: Performed By: #### 1 4303602, 4093614, 88240251, 7218715, 63755318, 6117284, 2390206 ####[facility] [address] [place] [address] Neutrophils 15.4 E9/L High 2.0-7.5 [facility] Comment on above: Performed By: #### 1 0145654, 0049244, 98481366, 9483822, 67804949, 7136514, 1557349 ####[address] [address] CBC w/ Auto Diffon Erythrocyte distribution width Auto Ratio (RBC) 13.4 % Normal 10.9-14.2 [facility] Comment on above: Performed By: #### 1 5474774, 3568875, 42326957, 9103086, 53405689, 3474475, 3856354 ####[address] [place] [address] Erythrocytes (RBC) 4.1 E12/L Low 4.3-5.9 [facility] Comment on above: Performed By: #### 1 8671939, 9473398, 23708797, 7427981, 49426903, 1097061, 1950606 ####[address] [place] [address] Hematocrit (HCT) 37.7 % Normal 37.7-49.0 [facility] Comment on above: Performed By: #### 1 9669059, 4491847, 25506273, 1067655, 17041648, 8713300, 1430424 ####[address] [place] [address] Hemoglobin mass conc (Bld) 13.0 g/dL Low 13.5-17.5 [facility] Comment on above: Performed By: #### 1 6470041, 1152692, 00004819, 4465675, 61516743, 7464862, 1603824 ####[place] [address] MCH 31.6 pg Normal 27.0-34.0 [facility] Comment on above: Performed By: #### 1 8282075, 3603740, 73907709, 7458460, 73812870, 2920917, 0508545 ####[place] [address] MCHC mass conc (RBC) 34.5 g/dL Normal 31.4-39.3 [facility] Comment on above: Performed By: #### 1 0562515, 7492153, 24515538, 1377792, 07662988, 7272705, 5769257 ####[place] [address] MCV 91.5 fL Normal 80.0-100.0 [facility] Comment on above: Performed By: #### 1 9383658, 0220431, 33512459, 6340311, 42486335, 6945129, 6188553 ####[place] [address] Platelet mean volume (PMV) 7.7 fL Normal 6.4-10.8 [facility] Comment on above: Performed By: #### 1 0869333, 9894381, 64873403, 2950143, 26504202, 1074267, 2468037 ####[address] [place] [address] Platelets 309.0 E9/L Normal 150.0-500. 0 [facility] Comment on above: Performed By: #### 1 8988999, 4533090, 42151005, 6196988, 45787357, 8210898, 0650499 ####[facility] [address] [place] [address] WBC (Leukocytes) 19.7 E9/L High 4.0-11.0 [facility] Comment on above: Performed By: #### 1 5822076, 2731980, 51973897, 3428867, 85578014, 6173595, 1348661 ####[facility] [address] [place] [address] CMPon 10-06-2017 Alanine aminotransferase (ALT) 61 Int._Unit/L High 6-46 [facility] Comment on above: Performed By: #### 1 9410642, 5840658, 84016790, 0146878, 27809704, 3489571, 2378939 ####[address] [place] [address] Albumin 0.7 g/dL Low 1.1-2.2 [facility] Comment on above: Performed By: #### 1 0140596, 2476609, 32028948, 0979441, 14985900, 9788606, 4302131 ####[facility] [address] [place] [address] Albumin 2.8 g/dL Low 3.3-5.0 [facility] Comment on above: Performed By: #### 1 7451454, 5449066, 19449362, 8793030, 74284383, 3131691, 1116647 ####[facility] [address] [place] [address] Alkaline phosphatase (ALP) 147 Int._Unit/L High 21-98 [facility] Comment on above: Performed By: #### 1 6176240, 3329353, 67343324, 5348746, 93456114, 1800018, 7730768 ####[facility] [address] [place] [address] Anion gap 13 mmol/L Normal 6-16 [facility] Comment on above: Performed By: #### 1 9032560, 4451739, 57994308, 5713108, 09701455, 1878949, 7655868 ####[facility] [address] [place] [address] Aspartate aminotransferase (AST) 49 Int._Unit/L High 5-43 [facility] Comment on above: Performed By: #### 1 3038992, 6857885, 33446994, 1686900, 17490425, 9734458, 0561166 ####[facility] [address] [place] [address] Bilirubin (total) 1.0 mg/dL Normal 0.0-1.1 [facility] Comment on above: Performed By: #### 1 0835109, 1036364, 23397875, 6397334, 65145912, 2092841, 4360408 ####[facility] [address] [place] [address] BUN/Creatinine Ratio 14 No Units Normal 10-20 [facility] Comment on above: Performed By: #### 1 6467444, 2986379, 70005783, 0699229, 25202974, 8847243, 6217026 ####[facility] [address] [place] [address] Calcium 8.5 mg/dL Low 8.9-11.1 [facility] Comment on above: Performed By: #### 1 4141974, 6462052, 65910489, 8395700, 69146136, 6881146, 3519417 ####[facility] [address] [place] [address] Chloride 93 mmol/L Low 101-111 [facility] Comment on above: Performed By: #### 1 6430489, 3345167, 27364207, 8523553, 28739148, 5870516, 2696284 ####[facility] [address] [place] [address] CO2 25 mmol/L Normal 21-31 [facility] Comment on above: Performed By: #### 1 1838834, 3459556, 76751370, 7121347, 25456597, 4915692, 5528265 ####[facility] [address] [place] [address] Creatinine 0.9 mg/dL Normal 0.5-1.3 [facility] Comment on above: Performed By: #### 1 2871369, 9763971, 57659204, 4208524, 53814097, 7400466, 8874491 ####[facility] [address] [place] [address] Globulin 3.8 g/dL Normal 1.4-4.0 [facility] Comment on above: Performed By: #### 1 1574387, 4577698, 75916828, 2872439, 37489307, 4970374, 7529879 ####[facility] [address] [place] [address] Glucose mass conc 107 mg/dL Normal 55-199 [facility] Comment on above: Result Comment: If t his glucose result represents a fasting glucose, interpretation should refer to the following reference range: 55-99 mg/dL Performed By: #### 1 0622458, 7492719, 91048353, 8113551, 38826192, 0478003, 5768889 ####[facility] [address] [place] [address] Potassium molar conc 4.1 mmol/L Normal 3.5-5.3 [facility] Comment on above: Performed By: #### 1 7758077, 2650471, 81496991, 2205585, 56975171, 0204331, 9179123 ####[facility] [address] [place] [address] Protein 6.6 g/dL Normal 6.0-7.8 [facility] Comment on above: Performed By: #### 1 5146453, 1892953, 14874641, 2713704, 63481242, 8148379, 2375010 ####[facility] [address] [place] [address] Sodium 127 mmol/L Low 135-145 [facility] Comment on above: Performed By: #### 1 5621942, 8551513, 09113474, 6799515, 41661575, 9428845, 0998119 ####[facility] [facility] [address] [place] [address] Urea nitrogen 13 mg/dL Normal 5-21 [facility] Comment on above: Performed By: #### 1 [id number], [id number], [id number], [id number], [id number], 3613241, [id number] ####[facility] [address] [place] [address] ED Clinical Summaryon 2016 ED Clinical Summary [address] [address] ED Clinical SummaryPerson Information Name: Juan Carlos WILKES/[facility] Age: 27 Years : 1990 12:00 AM Sex: Male Language:Mongolian PCP: Myra Middleton MD Marital Status:Single Visit Id: Visit Reason:Increased heart rate; Nausea; Dizziness; Pain in back; CELLULITIS, PHLEGMON, TACHYCARDIA Speciality: Acuity: 3 Enc Type: Inpatient Med Service: Medical Arrival:10/05/2017 5:35 PM Discharge: LOS: 000 11:42 Checkin:10/05/2017 5:35 PM Checkout: 10/06/2017 5:17 AM Dispo Type: Admitted as IP to this [facility] EVENTS:Event Name Event Status Request Date/Time Start Date/Time Complete Date/Time Arrive Complete 10/05/2017 5:35 PM 10/05/2017 5:35 PM 10/05/2017 5:35 PM Document Home Meds Complete 10/05/2017 5:35 PM 10/05/2017 10:52 PM 10/05/2017 10:52 PM Triage Complete 10/05/2017 5:35 PM 10/05/2017 6:35 PM 10/05/2017 6:35 PM EKG Complete 10/05/2017 6:34 PM 10/05/2017 10:26 PM Bed Assign Complete 10/05/2017 10:19 PM 10/05/2017 10:19 PM 10/05/2017 10:[address] Exam Complete 10/05/2017 10:19 PM 10/05/2017 10:29 PM 10/05/2017 10:29 PM RN Exam Complete 10/05/2017 10:19 PM 10/05/2017 10:51 PM 10/05/2017 10:51 PM Registration Complete 10/05/2017 10:29 PM 10/05/2017 11:22 PM 10/05/2017 11:22 PM Meds Admin Request 10/05/2017 10:45 PM Pending Labs Inlab 10/05/2017 10:45 PM Lab Inlab 10/05/2017 10:45 PM Urine Collect Complete 10/05/2017 10:45 PM 10/06/2017 4:12 AM X-Ray Cancel 10/05/2017 10:45 PM 10/05/2017 10:45 PM RT Request 10/05/2017 10:[address] Complete 10/05/2017 10:45 PM 10/05/2017 11:46 PM 10/06/2017 12:00 AM X-Ray Complete 10/05/2017 10:46 PM 10/05/2017 11:54 PM 10/06/2017 12:09 AM Meds Admin Complete 10/05/2017 10:46 PM 10/05/2017 11:12 PM Pending Labs Complete 10/05/2017 11:14 PM 10/05/2017 11:14 PM 10/05/2017 11:39 PM Lab Complete 10/05/2017 11:14 PM 10/05/2017 11:14 PM 10/05/2017 11:39 PM Reg Complete Request 10/05/2017 11:22 PM Pending Labs Complete 10/05/2017 11:41 PM 10/05/2017 11:41 PM 10/05/2017 11:44 PM Lab Complete 10/05/2017 11:41 PM 10/05/2017 11:41 PM 10/05/2017 11:44 PM Pending Labs Complete 10/05/2017 11:41 PM 10/05/2017 11:41 PM 10/05/2017 11:44 PM Meds Admin Complete 10/05/2017 11:52 PM 10/06/2017 1:28 AM Wet Read Request 10/06/2017 12:09 AM Pending Labs Complete 10/06/2017 12:43 AM 10/06/2017 12:43 AM 10/06/2017 12:43 AM Hospitalist Consult Request 10/06/2017 1:19 AM Meds Admin Complete 10/06/2017 1:37 AM 10/06/2017 1:44 AM Possible Sepsis Complete 10/06/2017 2:31 AM 10/06/2017 2:56 AM 10/06/2017 2:56 AM Patient Care Request 10/06/2017 4:39 AM Patient Care Request 10/06/2017 4:39 AM Patient Care Request 10/06/2017 4:39 AM Patient Care Request 10/06/2017 4:39 AM Patient Care Request 10/06/2017 4:41 AM Patient Care Request 10/06/2017 4:41 AM ADDRESS:[address] [place] [phone] [facility] DOC NOTES: MEDICAL INFORMATION: Prescriptions Given:PATIENT EDUCATION INFORMATION: Instructions: Follow up:DIAGNOSIS: Normal [facility] ED Patient Education Noteon 10-06-2017 ED Patient Education Note Patient Education Materials Follows: Normal [facility] ED Patient Summaryon 017 ED Patient Summary (Inserted Image. La ble to display) [place] [id number] Patient Discharge Instructions Person Information Name: WILLOW WILKES Age: 27 Years Date: 10/05/2017 5:35 PMDischarge Diagnosis: Primary Care Physician: Myra Middleton MD Provider InformationPrimary Provider: Анна Torres M.D.hysiciyeimy Antique Finisher:None The exam and treatment you received in the Emergency Department were for an urgent problem and are not intended as complete care. It is important that you follow up with a doctor, nurse practitioner, or physician?s transportation assistant for ongoing care. If your symptoms become worse or you do not improve as expected and you are unable to reach your usual health care provider, you should return to the Emergency Department. We are available 24 hours a day. WILLOW WILKES has been given the following list of patient education materials, prescriptions and follow-up instructions: Follow-up Instructions: In the event that this physician does not participate in your insurance network, please consult with your insurance company to find a nearby participating provider. Patient Education Materials: Medications Given:Medication Dose Route Sodium Chloride 0.9% intravenous solution 1000.00 mL Initial Volume 999.00 mL/hr IV Left Antecubital Diana Sodium Chloride 0.9% intravenous solution 2190.00 mL Initial Volume 999.00 mL/hr IV Left Antecubital Avon Sodium Chloride 0.9% intravenous solution 500.00 mL Initial Volume 999.00 mL/hr IV Left Antecubital Diana Sodium Chloride 0.9% intravenous solution 1000.00 mL Initial Volume 999.00 mL/hr IV Left Antecubital [place] morphine 6.00 mg IV Push Left Antecubital Diana morphine 4.00 mg IV Push Left Antecubital Diana vancomycin 1.50 gram IV Piggyback Left Antecubital [place]on piperacillin-tazobactam 3.38 gram IV Piggyback Left Antecubital [place] hydromorphone 1.00 mg IV Push Left Antecubital Diana Medication Information:Comment: Pharmacy Information: Thank you for choosing [facility] Patient Education Materials: CHUNG Bustamante RYAN , have received the following patient education materials/instructions and have verbalized understanding: Patient Education Materials: Follow-up Instructions: Prescriptions: Patient Signature Date Clinician/Nurse Signature Date 10/06/17 05:17:22 [facility] History and Physicalon 10-06 History and Physical Patient: WILLOW WILKES Age: 27 years Sex: Male : 1990 Associated Diagnoses: None Author: Jesse Davidson DO Chief Complaint 10/05/2017 18:24 EST pain in mid back to hip. ongoing X2 weeks. was seen [place] [facility] [place] [facility] but was told it was just muscle spasms. xray and urin were obtained in [place]. History of Present Illness 27 Y/O presents with C/o back pain ongoing for two weeks. Was seen in 2 different ER and at the time work up was non-revealing. He presents to the hospital with increased pain, fevers, chills in addition to nausea. Patient denies any history of infections inb the pst, no sick contacts, denies any drug use , no recent trauma or laceration to area. Review of Systems Constitutional: Fever, Chills. Eye: Negative. Ear/Nose/Mouth/Throat: Negative. Respiratory: Negative. Cardiovascular: Negative. Gastrointestinal: Nausea, No vomiting. Genitourinary: Negative. Hematology/Lymphatics: Negative. Endocrine: Negative. Immunologic: Negative. Musculoskeletal: Back pain: In the lower region. Integumentary: sigificant back and skin pain involving the lower back and extending to the left flank. Health Status Allergies: Allergic Reactions (Selected)No Known Allergies, Allergies (1) Active ReactionNo Known Allergies None Documented Current medications: (Selected) Inpatient MedicationsOrderedNS 1000 mL Soln-IV 1,000 mL: 1,000 mL, IV, 125 mL/hr, Routine, Start date 10/06/17 9:00:00 EST, 8 hour(s), Total volume (mL): 1,000Sodium Chloride 0.9% IV Mary 1000 mL 2,190 mL: 2,190 mL, IV, 999 mL/hr, STAT, Start date 10/05/17 22:45:00 EST, 2.2 hour(s), Total volume (mL): 2,190Zofran 4 mg/2 mL Injection: 4 mg = 2 mL, Injection, IV Push, q6hr PRN Nausea, Routine, Start date 10/06/17 9:00:00 ESTZosyn 3.375 g IVPB: 3.375 gram = 1 EA, IV Piggyback, q6hr for 10 day(s), Stop date 10/16/17 9:59:00 EST, Routine, Start date 10/06/17 10:00:00 EST, 100 mL/hr, Infuse over 30 minute(s)morphine 2 mg/mL Inj: 2 mg = 1 mL, Injection, IV Push, q4hr PRN Pain for 5 day(s), Stop date 10/11/17 8:59:00 EST, Routine, Start date 10/06/17 9:00:00 ESTvancomycin + Sodium Chloride 0.9% intravenous solution 500 mL: Reason for Vancomycin: Other reason documented in physician not, 1,750 mg, Injection, IV Piggyback, q12hr for 10 day(s), Stop date 10/16/17 10:59:00 EST, Start date 10/06/17 11:00:00 EST, Infuse over 2 hour(s), Medications (6) ActiveScheduled: (2)piperacillin-tazobactam 3 g-0.375 g 3.375 gram 1 EA, IV Piggyback, [id number] + vancomycin + Sodium Chloride 0.9% 500 mL 1,750 mg, IV Piggyback, [id number]: (2)Sodium Chloride 0.9% 1,000 mL 1,000 mL, IV, 125 mL/hrSodium Chloride 0.9% 2,190 mL 2,190 mL, IV, 999 mL/hrPRN: (2)morphine 2 mg/mL preservative-free SOLN [F] 2 mg 1 mL, IV Push, g2mjdptcmqhhhlr 2 mg/mL Inj [F] 4 mg 2 mL, IV Push, q6hr Problem list: All ProblemsSmoker / IMO [id number] / ConfirmedAdded secondary to documentation in Social History., Active Problems (1)Smoker Histories Past Medical History: ResolvedAsthma ([id number]): Resolved. Family History: AsthmaMother Procedure history: Incision AND drainage ([id number]).Comments:10/06/2017 06:12 - Philippe Cabezas RN right hand Social History Social & Psychosocial DskpmsEkwpdri06/26/2017 Risk Assessment: Denies Alcohol UseSubstance Abuse10/05/2017 Risk Assessment: Denies Substance MugkaNzytwfg16/26/2017 Risk Assessment: High Risk10/05/2017 Use: Current Every Day Smoker Type: Cigarettes Tobacco use per day: 0.5. Physical Examination Vital Signs 10/06/2017 00:49 EST Heart Rate Monitored 123 bpm HI Respiratory Rate Monitored 18 br/min Systolic Blood Pressure 105 mmHg Diastolic Blood Pressure 53 mmHg LOW Mean Arterial Pressure, Cuff 70 mmHg SpO2 98 % Vitals Signs (last 24 hrs) Last Charted Minimum MaximumTemp H 38 (OCT 06 06:02) 36.8 (OCT 05 18:24) H 38 (OCT 06 06:02)Heart Rate H 131 (OCT 06:31) H 120 (OCT 05 18:24) H 131 (OCT 06:31)Resp Rate H 24 (OCT 06 06:02) 16 (OCT 05 23:39) H 24 (OCT 06 06:02)SBP 106 (OCT 06 07:30) 96 (OCT 06 03:27) 128 (OCT 06 06:02)DBP L 56 (OCT 06 07:30) L 43 (OCT 06 03:27) 80 (OCT 05 18:24)MAP 73 (OCT 06 07:30) 61 (OCT 06 03:27) 73 (OCT 06 07:30)SpO2 94 (OCT 06 07:31) 94 (OCT 06 07:31) 100 (OCT 06 01:43) General: Alert and oriented, Moderate distress. Eye: Pupils are equal, round and reactive to light, Extraocular movements are intact. HENT: Normocephalic, Tympanic membranes are clear. Neck: Supple, Non-tender. Respiratory: Respirations are non-labored, mild wheezing. Cardiovascular: tavhycardic, S1S2. Gastrointestinal: Soft, Non-tender. Genitourinary: CVA tenderness. Musculoskeletal Normal range of motion. Normal strength. Integumentary: redness involving all lower lower back extending to mid back with redness extending to abdomen, hot and erythamatous to touch. Neurologic: Alert, Oriented. Cognition and Speech: Oriented, Speech clear and coherent. Psychiatric: Cooperative, Appropriate mood & affect. Osteopathic: No TTA is supine or seated position Review / Management Results review: Labs (Last four charted values)Hgb L 13.0 (OCT 05) Hct 37.7 (OCT 05) Cr 0.9 (OCT 05) , All Results 10/05/2017 23:08 EST WBC 19.7 E9/L HI RBC 4.1 E12/L LOW Hgb 13.0 gm/dL LOW Hct 37.7 % MCV 91.5 fL MCH 31.6 pg MCHC 34.5 gm/dL RDW 13.4 % Platelet 309.0 E9/L MPV 7.7 fL Segs Man 78 % HI Band Man 4 % Lymph Man 5 % LOW Monocyte Man 13 % Eos Man 0 % Basophil Man 0 % Segs Abs Man 15.4 E9/L HI Lymph Abs Man 1.0 E9/L [place] Abs Man 2.6 E9/L HI Eos Abs Man 0.0 E9/L Basophil Abs Man 0.0 E9/L RBC Morph Normal PT 13.3 second(s) HI INR 1.2 NA PTT 30.1 second(s) Glucose Lvl 107 mg/dL BUN 13 mg/dL Creatinine 0.9 mg/dL eGFR >60 mL/min/1.73 m2 eGFR AA >60 mL/min/1.73 m2 BUN/Creat Ratio 14 Sodium Lvl 127 mmol/L LOW Potassium Lvl 4.1 mmol/L Chloride 93 mmol/L LOW CO2 25 mmol/L AGAP 13 mEq/L Calcium Lvl 8.5 mg/dL LOW Alk Phos 147 Int._Unit/L HI ALT 61 Int._Unit/L HI AST 49 Int._Unit/L HI Total Protein 6.6 gm/dL Albumin Lvl 2.8 gm/dL LOW Globulin 3.8 gm/dL A/G Ratio 0.7 LOW Bili Total 1.0 mg/dL Lactic Acid Lvl 7.7 mg/dL . Impression and Plan - abdominal wall / Flank Cellulitis with concern for phlegmon/possible early abcess on CT and associated sepsis present on admission . patient will be on Vancomycin and zosyn] . Hemodynamic support . IV fluids . check blood cultures . IV morphine/Toradol . ID consult- Hyponatremia: . Cont with IV fluids . Checjk in am- Mild elevation in LFTs: recheck in am- Tobacco abuse . Counseled on the need for cessation- DVT proph: . AmbulationWichad horton require more than 2 MN's to treat the above Normal [facility] Comment on above: Result Comment: Elec tronically Signed By: Lety GUTIERREZ, Jesse\\.br\\Date and Time Signed: 10/06/17 12:53 EST Interdisciplinary Note - Brett e Manageron 10-06-2017 Interdisciplinary Note - Senior Principal CRM spoke with pt at bedside, white board updated, no family present. Pt states no PCP, list was provided at bedside. Pt understands plan is stay today, continue IV antibiotics, fluids, pain medication. Pt denies needs. Normal [facility] Lactic Acidon 10-06-2017 LACTATE:MCNC:PT:SE R/PLAS:QN: 5.1 mg/dL Normal 4.5-19.8 [facility] Comment on above: Performed By: #### 2 [id number] ####[facility] [address] [place] [address] LACTATE:MCNC:PT:SE R/PLAS:QN: 7.7 mg/dL Normal 4.5-19.8 [facility] Comment on above: Performed By: #### 1 [id number], [id number], 82091439, 9609124, 40630337, 4307263, 4723419 ####[facility] [address] [place] [address] Manual Diffon 10-06-2017 BASOPHILS:NCNC:PT: BLD:QN:MANUAL COUNT 0 % Normal 0-2 [facility] Comment on above: Order Comment: Order Added by Discern Expert. Performed By: #### 1 [id number], 9670074, 68304450, 3500516, 25257189, 5584302, 9697605 ####[facility] [address] [place] [address] Blood morphology Normal Normal [facility] Comment on above: Order Comment: Order Added by Discern Expert. Performed By: #### 1 [id number], 2710480, 46798000, 9265201, 59002002, 7842520, 0972195 ####[facility] [address] [place] [address] EOSINOPHILS:NCNC:P T:BLD:QN:MANUAL COUNT 0 % Normal 0-8 [facility] Comment on above: Order Comment: Order Added by Margo Expert. Performed By: #### 1 [id number], 8014614, 73820569, 7314108, 73961606, 5141797, 6300729 ####[facility] [address] [place] [address] LYMPHOCYTES:NCNC:P T:BLD:QN:MANUAL COUNT 5 % Low 14-50 [facility] Comment on above: Order Comment: Order Added by Discern Expert. Performed By: #### 1 1436125, 5643926, 22470149, 1618794, 10939289, 4815828, 2946159 ####[place] [address] [place] [address] MONOCYTES:NCNC:PT: BLD:QN:MANUAL COUNT 13 % Normal 4-14 [facility] Comment on above: Order Comment: Order Added by Margo Expert. Performed By: #### 1 [id number], 1995489, 71102131, 9902830, 34766150, 0672589, 2511613 ####[place] [address] [place] [address] Neutrophils band/100 leukocytes 4 % Normal 0-10 [facility] Comment on above: Order Comment: Order Added by Margo Expert. Performed By: #### 1 4047856, 6132103, 13699520, 5635047, 54095944, 1430416, 7683397 ####[place] [address] [place] [address] NEUTROPHILS.SEGMEN RENETTA:NCNC:PT:BLD:QN :MANUAL COUNT 78 % High 36-75 [facility] Comment on above: Order Comment: Order Added by Margo Expert. Performed By: #### 1 7572288, 6679292, 96331086, 7272151, 31665430, 6095283, 2668227 ####[facility] [address] [place] [address] PT & PTTon 10-06-2017 aPTT 30.1 second(s) Normal 25.1-36.5 [facility] Comment on above: Result Comment: Hepa rin therapeutic range (represented by Anti-Factor Xa activity of 0.2 - 0.4 U/mL) corresponds to PTT of 53.9 - 87.4 sec. Performed By: #### 1 6107615, 9928046, 40804104, 7649226, 78485556, 7695092, 0057814 ####[facility] [address] [place] [address] INR Coag RelTime (PPP) 1.2 {INR} Invalid Interpretation Code [facility] Comment on above: Result Comment: INR results are specifically intended to assess patients stabilized on long-term Anticoagulation therapy suggested INR?s ?Less Intensive Anticoagulation? 2.0 ? 3.0Conventional Range 3.0 ? 4.5 Performed By: #### 1 4847105, 6023511, 32770485, 3199013, 14298756, 4871749, 7540757 ####[facility] [address] [place] [address] Prothrombin time (PT) Coag time (PPP) 13.3 second(s) High 10.2-12.9 [facility] Comment on above: Performed By: #### 1 7513072, 1890990, 44007058, 5700447, 99967470, 0730069, 8085682 ####[facility] [address] [place] [address] Progress Note-Nurseon 2016 Progress Note-Nurse 2231 - Dr Torres at [id number] - Notified Dr. Torres pt requesting more pain medication.0003 - At radiology.0135 - Pt resting in bed, IVF's and antibiotics infusing. Pt requesting more pain medication. Dr Torres notified. Waiting for pain medications to be ordered.013 - Dr. Torres aware that pt requesting more pain medication.030 - Pt revitalized, BP is 98/50, pt remains in 8/10 lower back pain due to celluitis, notified Dr. Torres, per Dr. Torres give another 500 ml IVF bolus and then recheck BP for possibly more pain medication.17 - This nurse called and gave report to JAY Staley with no further questions. Pt ready to transfer upstairs to room 321S.0417 ----time clarification for last note above Normal [facility] UA With Cult Reflexon 2016 BACTERIA:PRTHR:PT: URINE SED:ORD:MICROSCOPY .LIGHT TRACE Normal Trace [facility] Comment on above: Performed By: #### 1 [id number] ####[facility] [address] [place] [address] Bilirubin Ql (U) Negative Normal Negative [facility] Comment on above: Performed By: #### 1 [id number] ####[address] [address] COLOR:TYPE:PT:URIN E:NOM:AUTO YELLOW Normal Yellow [facility] Comment on above: Performed By: #### 1 [id number] ####[address] [address] Erythrocytes (RBC) 0-3 Normal 0-3 [facility] Comment on above: Performed By: #### 1 [id number] ####[facility] [address] [place] [address] GLUCOSE:MCNC:PT:UR INE:QN:TEST STRIP Negative Normal Negative [facility] Comment on above: Performed By: #### 1 [id number] ####[facility] [address] [place] [address] KETONES:MCNC:PT:UR INE:QN:TEST STRIP TRACE Abnormal Negative [facility] Comment on above: Performed By: #### 1 [id number] ####[facility] [address] [place] [address] LEUKOCYTES:PRTHR:P T:URINE:ORD:AUTOMA RENETTA Negative Normal Negative [facility] Comment on above: Performed By: #### 1 0183550 ####[facility] [address] [place] [address] UA Spec Desc Clean Catch Normal [facility] Comment on above: Performed By: #### 1 [id number] ####[facility] [address] [facility] [place] [address] Urine, clarity CLEAR Normal Clear [facility] Comment on above: Performed By: #### 1 5154520 ####[facility] [address] [facility] [place] [address] Urine, hemoglobin presence Negative Normal Negative [facility] Comment on above: Performed By: #### 1 0384828 ####[facility] [address] [facility] [place] [address] Urine, leukocytes in sedmiment 0-5 Normal 0-5 [facility] Comment on above: Performed By: #### 1 1139974 ####[facility] [address] [place] [address] Urine, mucus presence in sediment TRACE Normal [facility] Comment on above: Performed By: #### 1 1523692 ####[facility] [address] [place] [address] Urine, nitrite presence Negative Normal Negative [facility] Comment on above: Performed By: #### 1 3636471 ####[facility] [address] [place] [address] Urine, pH 7.0 [pH] Invalid Interpretation Code 5.0-9.0 [facility] Comment on above: Performed By: #### 1 9437784 ####[facility] [address] [place] [address] Urine, protein 1+ Abnormal Negative [facility] Comment on above: Performed By: #### 1 4303432 ####[facility] [address] [place] [address] Urine, specific gravity 1.010 Invalid Interpretation Code 1.005-1.03 0 [facility] Comment on above: Performed By: #### 1 [id number] ####[facility] [address] [facility] [place] [address] Urine, squamous cells in sediment 0-2 Normal 0-2 [facility] Comment on above: Performed By: #### 1 0428104 ####[facility] [address] [place] [address] Urine, urobilinogen 1.0 {Aleksandr'U}/dL Normal 0.0-1.0 [facility] Comment on above: Performed By: #### 1 3985902 ####[facility] [address] [place] [address] XR Chest 2 Viewson 7 XR Chest 2 Views Exam Date/Time:10/06 00:09 ESTReason for Exam:CoughReportIMPRESSION: NO ACTIVE DISEASEREASON FOR EXAM: Diffuse truncal cellulitis.COMPARISONS: None available. FINDINGS: Heart and mediastinum within normal limits. Prominent nipple markerssymmetric bilaterally. Lung whitt free of active disease. No infiltrate or effusion.Bones intact. Extrathoracic soft tissues unremarkable on plain film. FINAL REPORT Dictated: 10/06/2017 10:21 am Hugh Landon MD Signed (Electronic Signature): 10/06/2017 10:21 am Signed by: Hugh Landon MD Transcribed by: JENNIFFER Technologist: FLOYD Normal [facility] eGFRon 10-06-2017 eGFR (black) mL/min/{1.73_m2} Normal >=59 [facility] Comment on above: Order Comment: Order added by Discern Expert. Result Comment: eGFR is race adjusted. AA=. Performed By: #### 1 [id number], 9599384, 63046064, 7057460, 52573242, 7450713, 4887218 ####[facility] [address] [place] [address] eGFR (non-black) mL/min/{1.73_m2} Normal >=59 [facility] Comment on above: Order Comment: Order added by Discern Expert. Result Comment: Stamp Mounter curt kidney disease could be indicated at eGFR's of less than 60 mL/min/1.73m2. Kidney failure is indicated at less than 15 mL/min/1.73m2. Performed By: #### 1 5737028, 8796810, 25926291, 2786196, 83921712, 5367995, 5863902 ####[facility] [address] [place] [address] Coding Summaryon 08-17-2017 Coding Summary CODING DATE: [facility] STATUS: Home PAYOR: Medicaid HMO ADMIT DX: REASON FOR VISIT DX: N50.811 Right testicular pain N50.812 Left testicular pain FINAL DX: PRINCIPAL: N45.1 Epididymitis SECONDARY: PROCEDURES DOCTOR NAME DATE NOTE: The code number assigned matches the documented diagnosis and / or procedure in the patient's chart. However, the narrative phrase printed from the coding software may appear abbreviated, or result in slightly different terminology. Revised Coded By: Mira Verma Revised Date Saved: 06/07/2017 02:49 pm [facility] Coding Summary CODING DATE: [facility] STATUS: Home PAYOR: Medicaid HMO ADMIT DX: REASON FOR VISIT DX: N50.811 Right testicular pain N50.812 Left testicular pain FINAL DX: PRINCIPAL: N45.1 Epididymitis SECONDARY: PROCEDURES DOCTOR NAME DATE NOTE: The code number assigned matches the documented diagnosis and / or procedure in the patient's chart. However, the narrative phrase printed from the coding software may appear abbreviated, or result in slightly different terminology. Revised Coded By: Mira Verma Revised Date Saved: 06/07/2017 02:48 pm [facility] Coding Summaryon 08-12-2017 Coding Summary CODING DATE: [facility] STATUS: Home PAYOR: Medicaid HMO ADMIT DX: REASON FOR VISIT DX: M54.5 Low back pain FINAL DX: PRINCIPAL: M54.16 Radiculopathy, lumbar region SECONDARY: M51.26 Other intervertebral disc displacement, lumbar region W01.0XXA Fall on same level from slipping, tripping and stumbling without subsequent striking against object, initial encounter PROCEDURES DOCTOR NAME DATE NOTE: The code number assigned matches the documented diagnosis and / or procedure in the patient's chart. However, the narrative phrase printed from the coding software may appear abbreviated, or result in slightly different terminology. Coded By: Mira Verma Date Saved: 08/12/2017 12:26 pm [facility] Coding Summary CODING DATE: [facility] STATUS: Home PAYOR: Medicaid HMO ADMIT DX: REASON FOR VISIT DX: M54.5 Low back pain FINAL DX: PRINCIPAL: M54.16 Radiculopathy, lumbar region SECONDARY: M51.26 Other intervertebral disc displacement, lumbar region W01.0XXA Fall on same level from slipping, tripping and stumbling without subsequent striking against object, initial encounter PROCEDURES DOCTOR NAME DATE NOTE: The code number assigned matches the documented diagnosis and / or procedure in the patient's chart. However, the narrative phrase printed from the coding software may appear abbreviated, or result in slightly different terminology. Coded By: Duglas Verma' Date Saved: 08/12/2017 12:25 pm [facility] ED Clinical Summaryon 2016 ED Clinical Summary [facility] - Emergency [address] [place] [id number] ed Clinical SummaryPERSON INFORMATIONName: CHUNG WILLOW Randolph Age: 27 Years Sex: MALEDOB: [birth year] MRN: Acct#:Visit Reason: Back pain; BACK PAIN Arrival:08/05/17 20:28:00 Discharge: 08/05/17 22:21:00LOS: 000 01:53 Check In: 08/05/17 20:28:00 Checkout:08/05/17 22:21:00Address:[address] [place] [id number]: Provider, NonePROVIDER INFORMATIONProvider Role Assigned UnassignedNeeraj Raphael ED PA 08/05/17 20:42:09Veronica Miranda ED Nurse 08/05/17 20:54:37VITALS INFORMATIONVital Sign Triage LatestTemperature TympanicTemperature Temporal ArteryPulse Rate 106 bpm 106 bpmO2 Sat 98 % 98 %Respiratory Rate 18 br/min 18 br/minBlood Pressure 147 mmHg/82 mmHg 147 mmHg/82 mmHgMEDICAL INFORMATIONMedications Given:Medication Dose Routeacetaminophen-hydrocodone 1 tab(s) POorphenadrine 60 mg IMAllergy Information:No known allergiesPHYSICIAN DOCUMENTATIONDISCHARGE INFORMATION:Discharge Disposition: HomeDischarge Location: HomePATIENT EDUCATION INFORMATIONInstructions: Lumbosacral Strain; Lumbosacral Radiculopathy; Back Pain, AdultFollow-Up:With: Address: When:ANJU CROCKER [address], [place] [address] Business (1) Within 3 to 5 daysComments:Diagnosis is low back pain with disc bulging. From history, you fell, and now have worsening back pain and right-sided radiculopathy or pain coming down the back your right leg. Yourr CT scan shows no evidence of acute fracture, but does show some disc bulging which could be causing a radiculopathy or pain down the back of your right leg. Most likely that low back sprain, is giving you painful symptoms. We provided you with injection of muscle relaxant, and pain medication. We are starting you on a course of steroids, start these tomorrow. We are giving you a prescription for pain medication and muscle relaxant, take this as prescribed, do not drink alcohol or drive while taking this medication. May want to take stool softener to prevent constipation while taking pain medication. Follow-up with listed orthopedic surgeon, or your own primary care provider in the next 3-5 days for further evaluation return to the emergency department for worsening symptoms or concerns, spiking fevers, intractable nausea or vomiting, any loss of bowel or bladder control, any questions.[facility] Address: When:None Provider Within 3 to 5 daysDIAGNOSIS:Accidental fall; L4-L5 disc bulge; Lumbar back pain with radiculopathy affecting right lower extremityComment: [facility] ED Note - Otheron 08-06-2017 ED Note - Other In patients chart to check if items are scanned in. [Electronically Signed on: 08/06/2017 07:18 EDT] Judy Joe [Verified on: 08/06/2017 07:18 EDT] Judy Joe [facility] ED Note-Nursingon 08-06-2017 ED Note-Nursing Pt discharged home. Home care and follow-up instructions given tp pt. Pt verbalized understanding. VS are WNL. PA has spoken tp pt. 1 prescription sent home with pt. 2 prescriptions sent to [facility]. Pt ambulated self to exit. [facility] ED Patient Education Noteon 08-06-2017 ED Patient Education Note Education MaterialsMusculoskeletalLumbosa cral StrainLumbosacral strain is a strain of any of the parts that make up your lumbosacral vertebrae. Your lumbosacral vertebrae are the bones that make up the lower third of your backbone. Your lumbosacral vertebrae are held together by muscles and tough, fibrous tissue (ligaments). CAUSESA sudden blow to your back can cause lumbosacral strain. Also, anything that causes an excessive stretch of the muscles in the low back can cause this strain. This is typically seen when people exert themselves strenuously, fall, lift heavy objects, bend, or crouch repeatedly.RISK FACTORS? Physically demanding work.? Participation in pushing or pulling sports or sports that require a sudden twist of the back (tennis, golf, baseball).? Weight lifting.? Excessive lower back curvature.? Forward-tilted pelvis.? Weak back or abdominal muscles or both.? Tight hamstrings.SIGNS AND SYMPTOMSLumbosacral strain may cause pain in the area of your injury or pain that moves (radiates) down your leg.DIAGNOSISYour health care provider can often diagnose lumbosacral strain through a physical exam. In some cases, you may need tests such as X-ray exams.TREATMENTTreatment for your lower back injury depends on many factors that your clinician will have to evaluate. However, most treatment will include the use of anti-inflammatory medicines.HOME CARE INSTRUCTIONS? Avoid hard physical activities (tennis, racquetball, waterskiing) if you are not in proper physical condition for it. This may aggravate or create problems.? If you have a back problem, avoid sports requiring sudden body movements. Swimming and walking are generally safer activities.? Maintain good posture.? Maintain a healthy weight.? For acute conditions, you may put ice on the injured area.? Put ice in a plastic bag.? Place a towel between your skin and the bag.? Leave the ice on for 20 minutes, 2?3 times a day.? When the low back starts healing, stretching and strengthening exercises may be recommended.SEEK MEDICAL CARE IF:? Your back pain is getting worse.? You experience severe back pain not relieved with medicines.SEEK IMMEDIATE MEDICAL CARE IF:? You have numbness, tingling, weakness, or problems with the use of your arms or legs.? There is a change in bowel or bladder control.? You have increasing pain in any area of the body, including your belly (abdomen).? You notice shortness of breath, dizziness, or feel faint.? You feel sick to your stomach (nauseous), are throwing up (vomiting), or become sweaty.? You notice discoloration of your toes or legs, or your feet get very cold.MAKE SURE YOU:? Understand these instructions.? Will watch your condition.? Will get help right away if you are not doing well or get worse.This information is not intended to replace advice given to you by your health care provider. Make sure you discuss any questions you have with your health care provider.Document Released: 07/07/2006 Document Revised: 10/18/2015 Document Reviewed: 05/16/2014R[employer]ier Interactive Patient Education ?2016 [email or web address]Lumbosacral RadiculopathyLumbosacral radiculopathy is a condition that involves the spinal nerves and nerve roots in the low back and bottom of the spine. The condition develops when these nerves and nerve roots move out of place or become inflamed and cause symptoms. CAUSESThis condition may be caused by:? Pressure from a disk that bulges out of place (herniated disk). A disk is a plate of cartilage that separates bones in the spine.? Disk degeneration.? A narrowing of the bones of the lower back (spinal stenosis).? A tumor.? An infection.? An injury that places sudden pressure on the disks that cushion the bones of your lower spine.RISK FACTORSThis condition is more likely to develop in:? Males aged 30?50 years.? Females aged 50?60 years.? People who lift improperly.? People who are overweight or live a sedentary lifestyle.? People who smoke.? People who perform repetitive activities that strain the spine.SYMPTOMSSymptoms of this condition include:? Pain that goes down from the back into the legs (sciatica). This is the most common symptom. The pain may be worse with sitting, coughing, or sneezing.? Pain and numbness in the arms and legs.? Muscle weakness.? Tingling.? Loss of bladder control or bowel control.DIAGNOSISThis condition is diagnosed with a physical exam and medical history. If the pain is lasting, you may have tests, such as:? MRI scan.? X-ray.? CT scan.? Myelogram.? Nerve conduction study.TREATMENTThis condition is often treated with:? Hot packs and ice applied to affected areas.? Stretches to improve flexibility.? Exercises to strengthen back muscles.? Physical therapy.? Pain medicine.? A steroid injection in the spine.In some cases, no treatment is needed. If the condition is long-lasting (chronic), or if symptoms are severe, treatment may involve surgery or lifestyle changes, such as following a weight loss plan.HOME CARE INSTRUCTIONSMedicines? Take medicines only as directed by your health care provider.? Do not drive or operate heavy machinery while taking pain medicine.Injury Care? Apply a heat pack to the injured area as directed by your health care provider.? Apply ice to the affected area:? Put ice in a plastic bag.? Place a towel between your skin and the bag.? Leave the ice on for 20?30 minutes, every 2 hours while you are awake or as needed. Or, leave the ice on for as long as directed by your health care provider.Other Instructions? If you were shown how to do any exercises or stretches, do them as directed by your health care provider.? If your health care provider prescribed a diet or exercise program, follow it as directed.? Keep all follow-up visits as directed by your health care provider. This is important.SEEK MEDICAL CARE IF:? Your pain does not improve over time even when taking pain medicines.SEEK IMMEDIATE MEDICAL CARE IF:? Your develop severe pain.? Your pain suddenly gets worse.? You develop increasing weakness in your legs.? You lose the ability to control your bladder or bowel.? You have difficulty walking or balancing.? You have a fever.This information is not intended to replace advice given to you by your health care provider. Make sure you discuss any questions you have with your health care provider.Document Released: 09/27/2006 Document Revised: 02/11/2016 Document Reviewed: 09/23/2015Magaly Interactive Patient Education ?2016 [email or web address]Back Pain, AdultBack pain is very common in adults.?The cause of back pain is rarely dangerous and the pain often gets better over time.?The cause of your back pain may not be known. Some common causes of back pain include:? Strain of the muscles or ligaments supporting the spine.? Wear and tear (degeneration) of the spinal disks.? Arthritis.? Direct injury to the back. For many people, back pain may return. Since back pain is rarely dangerous, most people can learn to manage this condition on their own.HOME CARE INSTRUCTIONSWatch your back pain for any changes. The following actions may help to lessen any discomfort you are feeling:? Remain active. It is stressful on your back to sit or drivematic machine operator one place for long periods of time. Do not sit, drive, or drivematic machine operator one place for more than 30 minutes at a time. Take short walks on even surfaces as soon as you are able.?Try to increase the length of time you walk each day.? Exercise regularly as directed by your health care provider. Exercise helps your back heal faster. It also helps avoid future injury by keeping your muscles strong and flexible.? Do not stay in bed.?Resting more than 1?2 days can delay your recovery.? Pay attention to your body when you bend and lift. The most comfortable positions are those that put less stress on your recovering back. Always use proper lifting techniques, including:? Bending your knees.? Keeping the load close to your body.? Avoiding twisting.? Find a comfortable position to sleep. Use a firm mattress and lie on your side with your knees slightly bent. If you lie on your back, put a pillow under your knees.? Avoid feeling anxious or stressed.?Stress increases muscle tension and can worsen back pain.?It is important to recognize when you are anxious or stressed and learn ways to manage it, such as with exercise.? Take medicines only as directed by your health care provider. Klzq-aji-swccpyd medicines to reduce pain and inflammation are often the most helpful.?Your health care provider may prescribe muscle relaxant drugs.?These medicines help dull your pain so you can more quickly return to your normal activities and healthy exercise.? Apply ice to the injured area:? Put ice in a plastic bag.? Place a towel between your skin and the bag.? Leave the ice on for 20 minutes, 2?3 times a day for the first 2?3 days. After that, ice and heat may be alternated to reduce pain and spasms.? Maintain a healthy weight. Excess weight puts extra stress on your back and makes it difficult to maintain good posture.SEEK MEDICAL CARE IF:? You have pain that is not relieved with rest or medicine.? You have increasing pain going down into the legs or buttocks.? You have pain that does not improve in one week.? You have night pain.? You lose weight.? You have a fever or chills.SEEK IMMEDIATE MEDICAL CARE IF:? You develop new bowel or bladder control problems.? You have unusual weakness or numbness in your arms or legs.? You develop nausea or vomiting.? You develop abdominal pain.? You feel faint.This information is not intended to replace advice given to you by your health care provider. Make sure you discuss any questions you have with your health care provider.Document Released: 09/27/2006 Document Revised: 10/18/2015 Document Reviewed: 01/29/2015Elsevier Interactive Patient Education ?2016 [email or web address] [facility] ED Patient Summaryon 08-06-2 017 ED Patient Summary [facility] - Emergency [address] [place] [id number] pATIENT DISCHARGE INSTRUCTIONSPatient InformationName: WILLOW WILKES Age: 27 YearsDate of : [birth year]MRN: [id number] For Visit: Back pain; BACK PAINArrival Time: 08/05/17 20:28:00Phone: Primary Care Physician: Provider, NoneAttending Physician: Luis F Hood DOComment:Visit Diagnosis:Diagnoses This Visit Accidental fall (W19.XXXA) Back pain ([id number]) L4-L5 disc bulge (M51.26) Lumbar back pain with radiculopathy affecting right lower extremity (M54.17)If you received any narcotics, sedation, or any other medication that causes drowsiness for the next 24 hours, unless otherwise directed:? Do not drive a car.? Do not operate machinery such as power tools, lawn mowers, drills, sewing machines, or stoves? Avoid alcoholic beverages and drugs for allergies, nerves, or sleep? Do not make important personal or business decisions or sign any legal documentsWith: Address: When:ANJU EDWARDSBROCKSterling [address], [place] [address] Business (1) Within 3 to 5 daysComments:Diagnosis is low back pain with disc bulging. From history, you fell, and now have worsening back pain and right-sided radiculopathy or pain coming down the back your right leg. Yourr CT scan shows no evidence of acute fracture, but does show some disc bulging which could be causing a radiculopathy or pain down the back of your right leg. Most likely that low back sprain, is giving you painful symptoms. We provided you with injection of muscle relaxant, and pain medication. We are starting you on a course of steroids, start these tomorrow. We are giving you a prescription for pain medication and muscle relaxant, take this as prescribed, do not drink alcohol or drive while taking this medication. May want to take stool softener to prevent constipation while taking pain medication. Follow-up with listed orthopedic surgeon, or your own primary care provider in the next 3-5 days for further evaluation return to the emergency department for worsening symptoms or concerns, spiking fevers, intractable nausea or vomiting, any loss of bowel or bladder control, any questions.[facility] Address: When:None Provider Within 3 to 5 daysMedication Information:The exam and treatment you received today in the [facility] Emergency Department were for an urgent problem and are not intended as complete care. It is important for you to follow up with a doctor, nurse practitioner, or physician?s transportation assistant for ongoing care. If your symptoms become worse or you do not improve as expected and you are unable to reach your usual health care provider, you should return to the Emergency Department, we are available 24 hours a day.For those patients who have received Radiology results, the interpretation of your X-ray as given to you by our Emergency Department physician is only a preliminary report. The Radiologist will review your films and if there is a change in the diagnosis you will be notified by phone. Please make sure you have provided a working phone number so we can reach you if necessary.In the event that you had a lab culture while you were a patient in the Emergency Department, you will be notified by phone if there is a need to change your antibiotic. Please make sure you have provided a working phone number so we can reach you if necessary.[facility] Emergency Department has provided you with a complete list of medications post discharge. Please inform your child day care provider/provider of your visit and for further instruction on these medications. Any specific questions regarding your chronic medications and dosages should be discussed with your primary care physician(s) and/or pharmacist. [facility]ationsR[facility]-[address] [place] [phone], [phone] (orphenadrine 100 mg oral tablet, extended release) 1 tab(s) Oral 2 times a day as needed pain for 7 Days. Refills: 0.predniSONE (predniSONE 20 mg oral tablet) 2 tab(s) Oral every day for 5 Days. Refills: 0.Printed Prescriptionsacetaminophen-hydr ocodone ([place] 5 mg-325 mg oral tablet) 1 tab(s) Oral Every 6 hours as needed for pain. Refills: 0.Medications to Continue That Have Not ChangedOther Medicationsalbuterol (ProAir HFA 90 mcg/inh inhalation aerosol) 2 puff(s) Inhalation 4 times a day as needed as needed for wheezing. Refills: 11.budesonide-formoterol (Symbicort) Inhalation 2 times a day.doxycycline (doxycycline hyclate 100 mg oral capsule) 1 cap Oral 2 times a day. Refills: 0.naproxen (Naprosyn 500 mg oral tablet) 1 tab(s) Oral 2 times a day as needed for pain. Refills: 0.Visit InformationAllergies:Substance Reaction Symptoms Type CommentsNo known allergies DrugVital Signs: Vitals and Measurements this Visit (last charted value for your 08/05/2017 visit) Vital Signs This Visit Temperature Temporal: 36.5 DegC Peripheral Pulse Rate: 106 bpm Respiratory Rate: 18 br/min Systolic Blood Pressure: 147 mmHg Diastolic Blood Pressure: 82 mmHg SpO2: 98 % Oxygen Therapy: Room air Measurements This Visit Height/Length Dosin.000 cm Height/Length Estimated: 175.000 cm Weight Dosin.840 kg Weight Estimated: 74.840 kgProblems List:Problem Onset CommentsAsthmaIneffective airway clearance Problem added automatically by system based on initiation of Ineffective Airway Clearance Plan of CarePatient EducationLumbosacral StrainLumbosacral strain is a strain of any of the parts that make up your lumbosacral vertebrae. Your lumbosacral vertebrae are the bones that make up the lower third of your backbone. Your lumbosacral vertebrae are held together by muscles and tough, fibrous tissue (ligaments). CAUSESA sudden blow to your back can cause lumbosacral strain. Also, anything that causes an excessive stretch of the muscles in the low back can cause this strain. This is typically seen when people exert themselves strenuously, fall, lift heavy objects, bend, or crouch repeatedly.RISK FACTORS? Physically demanding work.? Participation in pushing or pulling sports or sports that require a sudden twist of the back (tennis, golf, baseball).? Weight lifting.? Excessive lower back curvature.? Forward-tilted pelvis.? Weak back or abdominal muscles or both.? Tight hamstrings.SIGNS AND SYMPTOMSLumbosacral strain may cause pain in the area of your injury or pain that moves (radiates) down your leg.DIAGNOSISYour health care provider can often diagnose lumbosacral strain through a physical exam. In some cases, you may need tests such as X-ray exams.TREATMENTTreatment for your lower back injury depends on many factors that your clinician will have to evaluate. However, most treatment will include the use of anti-inflammatory medicines.HOME CARE INSTRUCTIONS? Avoid hard physical activities (tennis, racquetball, waterskiing) if you are not in proper physical condition for it. This may aggravate or create problems.? If you have a back problem, avoid sports requiring sudden body movements. Swimming and walking are generally safer activities.? Maintain good posture.? Maintain a healthy weight.? For acute conditions, you may put ice on the injured area.? Put ice in a plastic bag.? Place a towel between your skin and the bag.? Leave the ice on for 20 minutes, 2?3 times a day.? When the low back starts healing, stretching and strengthening exercises may be recommended.SEEK MEDICAL CARE IF:? Your back pain is getting worse.? You experience severe back pain not relieved with medicines.SEEK IMMEDIATE MEDICAL CARE IF:? You have numbness, tingling, weakness, or problems with the use of your arms or legs.? There is a change in bowel or bladder control.? You have increasing pain in any area of the body, including your belly (abdomen).? You notice shortness of breath, dizziness, or feel faint.? You feel sick to your stomach (nauseous), are throwing up (vomiting), or become sweaty.? You notice discoloration of your toes or legs, or your feet get very cold.MAKE SURE YOU:? Understand these instructions.? Will watch your condition.? Will get help right away if you are not doing well or get worse.This information is not intended to replace advice given to you by your health care provider. Make sure you discuss any questions you have with your health care provider.Document Released: 07/07/2006 Document Revised: 10/18/2015 Document Reviewed: 05/16/2014[employer] Interactive Patient Education ?2016 [employer].Lumbosacral RadiculopathyLumbosacral radiculopathy is a condition that involves the spinal nerves and nerve roots in the low back and bottom of the spine. The condition develops when these nerves and nerve roots move out of place or become inflamed and cause symptoms. CAUSESThis condition may be caused by:? Pressure from a disk that bulges out of place (herniated disk). A disk is a plate of cartilage that separates bones in the spine.? Disk degeneration.? A narrowing of the bones of the lower back (spinal stenosis).? A tumor.? An infection.? An injury that places sudden pressure on the disks that cushion the bones of your lower spine.RISK FACTORSThis condition is more likely to develop in:? Males aged 30?50 years.? Females aged 50?60 years.? People who lift improperly.? People who are overweight or live a sedentary lifestyle.? People who smoke.? People who perform repetitive activities that strain the spine.SYMPTOMSSymptoms of this condition include:? Pain that goes down from the back into the legs (sciatica). This is the most common symptom. The pain may be worse with sitting, coughing, or sneezing.? Pain and numbness in the arms and legs.? Muscle weakness.? Tingling.? Loss of bladder control or bowel control.DIAGNOSISThis condition is diagnosed with a physical exam and medical history. If the pain is lasting, you may have tests, such as:? MRI scan.? X-ray.? CT scan.? Myelogram.? Nerve conduction study.TREATMENTThis condition is often treated with:? Hot packs and ice applied to affected areas.? Stretches to improve flexibility.? Exercises to strengthen back muscles.? Physical therapy.? Pain medicine.? A steroid injection in the spine.In some cases, no treatment is needed. If the condition is long-lasting (chronic), or if symptoms are severe, treatment may involve surgery or lifestyle changes, such as following a weight loss plan.HOME CARE INSTRUCTIONSMedicines? Take medicines only as directed by your health care provider.? Do not drive or operate heavy machinery while taking pain medicine.Injury Care? Apply a heat pack to the injured area as directed by your health care provider.? Apply ice to the affected area:? Put ice in a plastic bag.? Place a towel between your skin and the bag.? Leave the ice on for 20?30 minutes, every 2 hours while you are awake or as needed. Or, leave the ice on for as long as directed by your health care provider.Other Instructions? If you were shown how to do any exercises or stretches, do them as directed by your health care provider.? If your health care provider prescribed a diet or exercise program, follow it as directed.? Keep all follow-up visits as directed by your health care provider. This is important.SEEK MEDICAL CARE IF:? Your pain does not improve over time even when taking pain medicines.SEEK IMMEDIATE MEDICAL CARE IF:? Your develop severe pain.? Your pain suddenly gets worse.? You develop increasing weakness in your legs.? You lose the ability to control your bladder or bowel.? You have difficulty walking or balancing.? You have a fever.This information is not intended to replace advice given to you by your health care provider. Make sure you discuss any questions you have with your health care provider.Document Released: 09/27/2006 Document Revised: 02/11/2016 Document Reviewed: 09/23/2015[employer] Interactive Patient Education ?2016 INAPPIN.Back Pain, AdultBack pain is very common in adults.?The cause of back pain is rarely dangerous and the pain often gets better over time.?The cause of your back pain may not be known. Some common causes of back pain include:? Strain of the muscles or ligaments supporting the spine.? Wear and tear (degeneration) of the spinal disks.? Arthritis.? Direct injury to the back. For many people, back pain may return. Since back pain is rarely dangerous, most people can learn to manage this condition on their own.HOME CARE INSTRUCTIONSWatch your back pain for any changes. The following actions may help to lessen any discomfort you are feeling:? Remain active. It is stressful on your back to sit or drivematic machine operator one place for long periods of time. Do not sit, drive, or drivematic machine operator one place for more than 30 minutes at a time. Take short walks on even surfaces as soon as you are able.?Try to increase the length of time you walk each day.? Exercise regularly as directed by your health care provider. Exercise helps your back heal faster. It also helps avoid future injury by keeping your muscles strong and flexible.? Do not stay in bed.?Resting more than 1?2 days can delay your recovery.? Pay attention to your body when you bend and lift. The most comfortable positions are those that put less stress on your recovering back. Always use proper lifting techniques, including:? Bending your knees.? Keeping the load close to your body.? Avoiding twisting.? Find a comfortable position to sleep. Use a firm mattress and lie on your side with your knees slightly bent. If you lie on your back, put a pillow under your knees.? Avoid feeling anxious or stressed.?Stress increases muscle tension and can worsen back pain.?It is important to recognize when you are anxious or stressed and learn ways to manage it, such as with exercise.? Take medicines only as directed by your health care provider. Pocu-dwm-sstckyi medicines to reduce pain and inflammation are often the most helpful.?Your health care provider may prescribe muscle relaxant drugs.?These medicines help dull your pain so you can more quickly return to your normal activities and healthy exercise.? Apply ice to the injured area:? Put ice in a plastic bag.? Place a towel between your skin and the bag.? Leave the ice on for 20 minutes, 2?3 times a day for the first 2?3 days. After that, ice and heat may be alternated to reduce pain and spasms.? Maintain a healthy weight. Excess weight puts extra stress on your back and makes it difficult to maintain good posture.SEEK MEDICAL CARE IF:? You have pain that is not relieved with rest or medicine.? You have increasing pain going down into the legs or buttocks.? You have pain that does not improve in one week.? You have night pain.? You lose weight.? You have a fever or chills.SEEK IMMEDIATE MEDICAL CARE IF:? You develop new bowel or bladder control problems.? You have unusual weakness or numbness in your arms or legs.? You develop nausea or vomiting.? You develop abdominal pain.? You feel faint.This information is not intended to replace advice given to you by your health care provider. Make sure you discuss any questions you have with your health care provider.Document Released: 09/27/2006 Document Revised: 10/18/2015 Document Reviewed: 01/29/2015[employer] Interactive Patient Education ?2016 INAPPIN. Viruses or BacteriaWhat?s got you sick?Antibiotics only treat bacterial infections. Viral illnesses cannot be treated with antibiotics. When an antibiotic is not prescribed, ask your healthcare professional for tips on how to relieve symptoms and feel better. Usual CauseIllnessVirusesBacteria Antibiotic NeededCold/Runny Nose NOBronchitis/Chest Cold (in otherwise healthy children and adults) NOWhooping Cough YesFlu NOStrep Throat YesSore Throat (except strep) NOFluid in the middle ear (otitis media with effusion) NOUrinary Tract Infection YesAntibiotics Aren?t Always the Answerwww.cdc.gov/getsmart GET SMART Know When Antibiotics [place] Department of Health and Human ServicesCenters for Disease Control and Prevention June 2014 Normal [facility] CT Spine Lumbar w/o Contrast on 08-05-2017 CT Spine Lumbar w/o Contrast CT SPINE LUMBAR WITHOUT CONTRASTCLINICAL DATA: Fell two days ago, impact injury to low back, pain. Dosereduction technique was utilized for this study.CT lumbar spine study was performed without the use of intravenous contrast.Multiple axial images were obtained. Reformatted coronal and sagittal imageswere obtained and reviewed. Vertebral body heights are grossly wellmaintained. There are Schmorl node defects from T11-T12 to L4-L5 with mildendplate degenerative changes. There is mild disc space narrowing [id number] to L3-L4. No definite acute fracture or dislocation is seen. Thereis straightening of the normally seen lordosis, correlate for mild degree ofmuscle spasm. There is a tiny calcification along the inferior endplate of L3on the right compatible with degenerative change.At T11-T12 there is no obvious focal abnormalityAt T12-L1 there is no obvious focal abnormality.At L1-L2 there is no obvious focal abnormality.At L2-L3 there is mild disc bulging.At L3-L4 there is mild disc bulging.At L4-L5 there is mild disc bulging.At L5-S1 there is generalized disc bulging with mild asymmetric bulging onthe left. There is mild spinal stenosis, bulging disc impresses mildly uponthe anterior aspect of the thecal sac and upon the proximal portion of the R2gbnwj root on the left, correlate clinically. There is mild neural foraminalnarrowing on the left.No obvious focal soft tissue abnormalities seen within the bony spinal canal.Muscle and fascial planes are grossly intact.IMPRESSION:1. CT LUMBAR SPINE STUDY FAILS TO DEMONSTRATE DEFINITE ACUTE FRACTURE ORDISLOCATION.2. CORRELATE FOR MILD DEGREE OF MUSCLE SPASM.3. DEGENERATIVE CHANGES DESCRIBED. DISC BULGING IS NOTED.4. GENERALIZED DISC BULGING WITH MILD ASYMMETRIC BULGING ON THE LEFT AT L5-S1WITH MILD SPINAL STENOSIS AT L5-S1, MILD IMPRESSION UPON THE PROXIMAL PORTIONOF THE S1 NERVE ROOT ON THE LEFT, CORRELATE CLINICALLY.NILS Phillips #: [id number]: 08/06/2017T: 08/06/2017 Final Dictated by: David Ward MD SDictated DT/TM: 08/06/17 6:48Signed (Electronic Signature): David Ward MD 08/06/17 11:21 aTechnologist: MONIE [facility] ED Note - Physicianon 2016 ED Note - Physician Patient: WILLOW WILKES : 27 years Sex: MALE : [birth year]Associated Diagnoses: Lumbar back pain with radiculopathy affecting right lower extremity; Accidental fall; L4-L5 disc bulgeAuthor: Mei DOWNING, Neeraj CamiloBasic InformationAdditional information: Chief Complaint from Nursing Triage Note : Chief Kyyfgktvm56/26/17 20:41 EDT Chief Complaint Lower back pain after a fall tues night. .History of Present IllnessPatient is a 27-year-old male who presents to the emergency department for evaluation of low back pain after fall 2 days ago, seen in room 4. Patient states he had recently moved, there were storage bins and one of his rooms and had a wooden floor apparently he stepped on the lid from a storage bin, slid fell landing on his buttocks, since then he has had worsening pain, thought it would go away but it had not. Over the last 24 hours, he started to develop some pain going from he describes as his hip down to the back of his knee, he denies any numbness or tingling or weakness, denies any loss of bowel or bladder control, hematuria or dysuriaReview of SystemsConstitutional symptoms: No fever, no chills.Skin symptoms: No rash, no abrasions.Eye symptoms: No discharge, no diplopia, no blurred vision.Respiratory symptoms: No shortness of breath,Cardiovascular symptoms: No chest pain,Gastrointestinal symptoms: No abdominal pain, no nausea, no vomiting.Musculoskeletal symptoms: Negative except as documented in HPI.Health StatusAllergies:Allergic Reactions (All)No known allergiesCanceled/Inactive Reactions (All)Severity Not DocumentedNo Known Allergies- No reactions were documented..Medications: (Selected)PrescriptionsPrescrib edNaprosyn 500 mg oral tablet: 500 mg, 1 tab(s), PO, BID, PRN: for pain, 20 tab(s), 0 Refill(s)ProAir HFA 90 mcg/inh inhalation aerosol: 2 puff(s), INH, QID, PRN: as needed for wheezing, 1 EA, 11 Refill(s)doxycycline hyclate 100 mg oral capsule: 100 mg, 1 cap(s), PO, BID, 20 cap(s), 0 Refill(s)Documented MedicationsDocumentedSymbicort: INH, BID.Past Medical/ Family/ Social HistoryMedical history:ResolvedModerate persistent asthma with exacerbation ([id number]): Resolved.Pneumonia due to other specified bacteria ([id number]): Resolved.Smoker ([id number]): Resolved.Comments: -Added secondary to documentation in Social History.Pain due to dental caries ([id number]): Resolved..Surgical history:Colonoscopy normal ([id number]) in 2015 at 25 Years..Family history:AsthmaMotherSisterGrand father (Maternal)Cancer - unknown originGrandfather (Paternal)FibromyalgiaMotherChr onic coughMother.Social history:Social & Psychosocial LkkedoFhhqzkj84/06/2016 Risk Assessment: Low Risk Comment: denies - 03/25/2016 14:35 - Leila Chavez LPNEmployment/Tcchgu6403/16/2016 Risk Assessment: Low Risk03/25/2016 Status: 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/Scrmdbupedd11/15/2016 Lives with: MotherSubstance Abuse03/16/2016 Risk Assessment: Denies Substance FljagIwzmljk64/06/2016 Risk Assessment: Low Risk03/24/2017 Type: Cigarettes Comment: PT STATES HE QUIT SMOKING 6 MONTHS AGO - 03/14/2016 16:37 - Latoya Garber RN; States smokes 1/2 PPD - 03/24/2017 14:31 - Kari Bolton.Problem list:Active Problems (2)AsthmaIneffective airway clearance.Physical Examination Vital SignsVital Signs08/05/17 20:41 EDT Temperature Temporal 36.5 DegC Peripheral Pulse Rate 106 bpm HI Respiratory Rate 18 br/min Systolic Blood Pressure 147 mmHg HI Diastolic Blood Pressure 82 mmHg SpO2 98 % Oxygen Therapy Room air.Vklkwyrjhdvo07/26/17 20:43 EDT Weight Dosing 74.840 kg08/05/17 20:43 EDT Height/Length Dosing 175.000 cm08/05/17 20:41 EDT Height/Length Estimated 175.000 cm Weight Estimated 74.840 kg.General: Alert, no acute distress.Skin: Warm, dry.Head: Normocephalic, atraumatic.Neck: Supple, trachea midline, No pain with palpation of the C-spine, painless range of motion.Eye: Extraocular movements are intact, normal conjunctiva.Ears, nose, mouth and throat: Oral mucosa moist, no pharyngeal erythema or exudate.Cardiovascular: +S1, S2 Regular.Respiratory: Lungs are clear to auscultation, respirations are non-labored, breath sounds are equal.Gastrointestinal: Soft, Nontender, Non distended, Normal bowel sounds, No guarding or rebound.Back: No pain with palpation of the thoracic spine, or the paraspinals, she move distally towards the lumbar spine, he has some pain in the area of L1-L3, diffuse, but definitely on the spinous processes, straight leg raise elicits significant pain on the left, negative on the right, no radiculopathy and either one with straight leg raise. Patient reports radiculopathy on the right side from hip to posterior knee, but not seen on exam.Neurological: Alert and oriented to person, place, time, and situation, No focal neurological deficit observed.Psychiatric: Cooperative.Medical Decision MakingDifferential Diagnosis: Back pain, lumbar strain, disc herniation, sciatica, vertebral fracture, compression fracture.Orders Launch OrdersPharmacy:Norflex Injectable (Order): 60 mg, IM, OnceNorco 5 mg-325 mg oral tablet (Order): 1 tab(s), PO, OnceRadiology:CT Spine Lumbar w/o Contrast (Order): 08/05/17 20:57 EDT Stat, fall, Allow Modification Per Radiologist, Transport Mode: Wheelchair, Patient fell 2 days ago, now has severe back pain mostly from L1-L4, more right sided, reports radiculopathy to right knee, Standard Precautions.Reexamination/ ReevaluationPatient is a 27-year-old male who presents to the emergency department, after falling 2 days ago landing on his buttocks, now with worsening pain over the last 24 hours and radiculopathy intermittently. From physical exam most the pain seems to be in the lumbar spine, mostly from L1 through L3. With history of fall, and developing radiculopathy, we'll obtain CT scan of the lumbar spine to further evaluate regards to compression fracture versus disc herniation.Patient CT scan shows evidence of disc bulging and L4-5, and L5-S1, with some foraminal narrowing, there is no acute fracture, I discussed with the patient at this time that I would provide him with a prescription for steroids, in the form of prednisone, muscle relaxant, and [place]. I discussed them that in regards to pain related to these injuries and strains and sprains, they can take anywhere from 1-6 weeks to resolve, may not ever resolve totally. Patient stated at that time he's had chronic intermittent back pain for many years. He can follow-up with listed orthopedic surgeon for further evaluation return for worsening symptoms or concerns. Patient'sOARRS report reveals prescription for hydrocodone, 04/10/17, quantity 15.Impression and PlanDiagnosisLumbar back pain with radiculopathy affecting right lower extremity ([id number]-IC M54.17, Discharge, Medical)L4-L5 disc bulge (RAF36-MB M51.26, Discharge, Medical)Accidental fall (TOU16-GT W19.XXXA, Discharge, Medical)PlanCondition: Improved, Stable.Disposition: Discharged: Time 08/05/17 21:59:00, to home.Prescriptions: Launch prescriptionsPharmacy:orphenadr ine 100 mg oral tablet, extended release (Prescribe): 100 mg, 1 tab(s), PO, BID, for 7 day(s), PRN: pain, 14 tab(s), 0 Refill(s)predniSONE 20 mg oral tablet (Prescribe): 40 mg, 2 tab(s), PO, Daily, for 5 day(s), 10 tab(s), 0 Refill(s)[place] 5 mg-325 mg oral tablet (Prescribe): 1 tab(s), PO, q6hr, PRN: for pain, 12 tab(s), 0 Refill(s).Patient was given the following educational materials: Back Pain, Adult, Lumbosacral Radiculopathy, Lumbosacral Strain, Lumbosacral Strain, Lumbosacral Radiculopathy, Back Pain, Adult, Lumbosacral Strain, Lumbosacral Radiculopathy, Back Pain, Adult.Follow up with: ANJU CROCKER Within 3 to 5 days Diagnosis is low back pain with disc bulging. From history, you fell, and now have worsening back pain and right-sided radiculopathy or pain coming down the back your right leg. Yourr CT scan shows no evidence of acute fracture, but does show some disc bulging which could be causing a radiculopathy or pain down the back of your right leg. Most likely that low back sprain, is giving you painful symptoms. We provided you with injection of muscle relaxant, and pain medication. We are starting you on a course of steroids, start these tomorrow. We are giving you a prescription for pain medication and muscle relaxant, take this as prescribed, do not drink alcohol or drive while taking this medication. May want to take stool softener to prevent constipation while taking pain medication. Follow-up with listed orthopedic surgeon, or your own primary care provider in the next 3-5 days for further evaluation return to the emergency department for worsening symptoms or concerns, spiking fevers, intractable nausea or vomiting, any loss of bowel or bladder control, any questions.Prescriptions have been electronically transferred to right aid; None Provider Within 3 to 5 days.Counseled: Patient, Family, Regarding diagnosis, Regarding diagnostic results, Regarding treatment plan, Regarding prescription, Patient indicated understanding of instructions.[Electronically Signed on: 08/05/2017 22:28 EDT] Neeraj Raphael[Verified on: 08/05/2017 22:28 EDT] Neeraj Raphael [facility] ED Note-Nursingon 08-05-2017 ED Note-Nursing Pt presented to the ER with c/o Lower back. Pt states he slipped on a storage container lid and fell on his back. Pt has h/o lower back pain. Pt is awake and alert. VS are WNL. Lungs clear. Denies SOB, Chest pain, Dizziness, N/V. Respirations are regular, even, unlabored. Pt placed in gown. PA at bedside. [facility] Rad - Other Radiology Report on 08-05-2017 Rad - Other Radiology Report [id number] [facility] Coding Summaryon 06-07-2017 Coding Summary CODING DATE: 017 [facility] STATUS: Home PAYOR: Medicaid HMO ADMIT DX: REASON FOR VISIT DX: N50.811 Right testicular pain N50.812 Left testicular pain FINAL DX: PRINCIPAL: N45.1 Epididymitis SECONDARY: PROCEDURES DOCTOR NAME DATE NOTE: The code number assigned matches the documented diagnosis and / or procedure in the patient's chart. However, the narrative phrase printed from the coding software may appear abbreviated, or result in slightly different terminology. Coded By: Mira Verma Date Saved: 06/07/2017 02:49 pm [facility] Coding Summary CODING DATE: 017 [facility] STATUS: Home PAYOR: Medicaid HMO ADMIT DX: REASON FOR VISIT DX: N50.811 Right testicular pain N50.812 Left testicular pain FINAL DX: PRINCIPAL: N45.1 Epididymitis SECONDARY: PROCEDURES DOCTOR NAME DATE NOTE: The code number assigned matches the documented diagnosis and / or procedure in the patient's chart. However, the narrative phrase printed from the coding software may appear abbreviated, or result in slightly different terminology. Coded By: Mira Verma Date Saved: 06/07/2017 02:48 pm [facility] ED Clinical Summaryon 2016 ED Clinical Summary [facility] - Emergency [address] [place], [place] [id number] ed Clinical SummaryPERSON INFORMATIONName: WILKESWILLOW Age: 26 Years Sex: MALEDOB: [birth year] MRN: Acct#:Visit Reason: Testicular pain; Testicular pain; PELVIC/TESTICULAR PAIN/ X 1 WEEK Arrival:06/01/17 23:15:00 Discharge: 06/02/17 00:17:00LOS: 000 01:02 Check In: 06/01/17 23:15:00 Checkout:06/02/17 00:17:00Address:[address] [address]Q[place]: Provider, NonePROVIDER INFORMATIONProvider Role Assigned UnassignedVargas Anthony MD ED Provider 06/01/17 23:16:06MoNora thao ED Nurse 06/01/17 23:23:24VITALS INFORMATIONVital Sign Triage LatestTemperature TympanicTemperature Temporal ArteryPulse Rate 96 bpm 96 bpmO2 Sat 100 % 100 %Respiratory Rate 18 br/min 18 br/minBlood Pressure 130 mmHg/78 mmHg 130 mmHg/78 mmHgMEDICAL INFORMATIONMedications Given:Medication Dose Routeceftriaxone 250 mg IMdoxycycline 100 mg POnaproxen 500 mg POAllergy Information:No known allergiesPHYSICIAN DOCUMENTATIONPatient: WILLOW WILKES : 26 years Sex: MALE : [birth year]Associated Diagnoses: Left epididymitisAuthor: Vargas Anthony MDBasiamber InformationTime seen: Date & time 06/01/17 23:24:00.Testicular painHistory of Present Qkccuia40-knbe-les white male presents to the emergency room via private car complaining of testicular pain for the past one week. Patient reports the pain initially began in his right testicle but now is in his left testicle. He reports no fever or chills, he denies nausea or vomiting. No similar episodes in the past. There is no history of trauma. Patient reports his is currently and was recently tested negative for STDs. He reports wsaz-kvy-cgykene medications have not been helping his pain he came to the emergency room for further evaluation. Patient reports he does not have a primary care physician.Review of SystemsConstitutional symptoms: No fever, no chills.Gastrointestinal symptoms: No nausea, no vomiting.Genitourinary symptoms: Testicular pain, no dysuria, no hematuria, no discharge.Musculoskeletal symptoms: No back pain,Health StatusAllergies:Allergic Reactions (Selected)No known allergies.Physical Examination Vital SignsVital Signs06/01/17 23:18 EDT Temperature Oral 36.8 DegC Peripheral Pulse Rate 96 bpm Respiratory Rate 18 br/min Systolic Blood Pressure 130 mmHg Diastolic Blood Pressure 78 mmHg SpO2 100 % Oxygen Therapy Room air.General: Alert, no acute distress.Skin: Warm, dry, pink.Head: Atraumatic.Neck: Trachea midline.Eye: Normal conjunctiva.Gastrointestinal: Soft.Genitourinary: Testes: Cremasteric reflex normal bilaterally. Patient has mild tenderness of the right epididymis and moderate tenderness of the left epididymis. Testes appear normal at 3-4 cm each.Back: Normal range of motion.Musculoskeletal: Normal ROM, normal strength.Neurological: Alert and oriented to person, place, time, and situation, normal motor observed, normal speech observed.Psychiatric: Cooperative, appropriate mood & affect.Medical Decision MakingDifferential Diagnosis: Epididymitis.Rationale: Patient has epididymitis, he was treated with intramuscular Rocephin and oral doxycycline here in the emergency room. Counseled to use Naprosyn and tight underwear until this resolves..Impression and PlanDiagnosisLeft epididymitis (BAA96-GO N45.1, Discharge, Medical)PlanCondition: Improved.Disposition: Discharged: to home.Prescriptions: Launch prescriptionsPharmacy:Naprosyn 500 mg oral tablet (Prescribe): 500 mg, 1 tab(s), PO, BID, PRN: for pain, 20 tab(s), 0 Refill(s)doxycycline hyclate 100 mg oral capsule (Prescribe): 100 mg, 1 cap(s), PO, BID, 20 cap(s), 0 Refill(s).Patient was given the following educational materials: Epididymitis, Epididymitis.Follow up with: None Provider Within 3 to 5 days.Counseled: Patient, Regarding diagnosis, Regarding treatment plan, Regarding prescription, Patient indicated understanding of instructions.DISCHARGE INFORMATION:Discharge Disposition: HomeDischarge Location: HomePATIENT EDUCATION INFORMATIONInstructions: EpididymitisFollow-Up:With: Address: When:None Provider Within 3 to 5 daysDIAGNOSIS:Left epididymitisComment: Normal [facility] ED Note - Physicianon 2016 ED Note - Physician Patient: WILLOW WILKES : 26 years Sex: MALE : [birth year]Associated Diagnoses: Left epididymitisAuthor: Vargas Anthony MDBasiamber InformationTime seen: Date & time 06/01/17 23:24:00.Testicular painHistory of Present Rexlaqn68-mclx-fmc white male presents to the emergency room via private car complaining of testicular pain for the past one week. Patient reports the pain initially began in his right testicle but now is in his left testicle. He reports no fever or chills, he denies nausea or vomiting. No similar episodes in the past. There is no history of trauma. Patient reports his is currently and was recently tested negative for STDs. He reports yppj-zrd-gkrcxxp medications have not been helping his pain he came to the emergency room for further evaluation. Patient reports he does not have a primary care physician.Review of SystemsConstitutional symptoms: No fever, no chills.Gastrointestinal symptoms: No nausea, no vomiting.Genitourinary symptoms: Testicular pain, no dysuria, no hematuria, no discharge.Musculoskeletal symptoms: No back pain,Health StatusAllergies:Allergic Reactions (Selected)No known allergies.Physical Examination Vital SignsVital Signs06/01/17 23:18 EDT Temperature Oral 36.8 DegC Peripheral Pulse Rate 96 bpm Respiratory Rate 18 br/min Systolic Blood Pressure 130 mmHg Diastolic Blood Pressure 78 mmHg SpO2 100 % Oxygen Therapy Room air.General: Alert, no acute distress.Skin: Warm, dry, pink.Head: Atraumatic.Neck: Trachea midline.Eye: Normal conjunctiva.Gastrointestinal: Soft.Genitourinary: Testes: Cremasteric reflex normal bilaterally. Patient has mild tenderness of the right epididymis and moderate tenderness of the left epididymis. Testes appear normal at 3-4 cm each.Back: Normal range of motion.Musculoskeletal: Normal ROM, normal strength.Neurological: Alert and oriented to person, place, time, and situation, normal motor observed, normal speech observed.Psychiatric: Cooperative, appropriate mood & affect.Medical Decision MakingDifferential Diagnosis: Epididymitis.Rationale: Patient has epididymitis, he was treated with intramuscular Rocephin and oral doxycycline here in the emergency room. Counseled to use Naprosyn and tight underwear until this resolves..Impression and PlanDiagnosisLeft epididymitis ([id number] N45.1, Discharge, Medical)PlanCondition: Improved.Disposition: Discharged: to home.Prescriptions: Launch prescriptionsPharmacy:Naprosyn 500 mg oral tablet (Prescribe): 500 mg, 1 tab(s), PO, BID, PRN: for pain, 20 tab(s), 0 Refill(s)doxycycline hyclate 100 mg oral capsule (Prescribe): 100 mg, 1 cap(s), PO, BID, 20 cap(s), 0 Refill(s).Patient was given the following educational materials: Epididymitis, Epididymitis.Follow up with: None Provider Within 3 to 5 days.Counseled: Patient, Regarding diagnosis, Regarding treatment plan, Regarding prescription, Patient indicated understanding of instructions.[Electronically Signed on: 06/01/2017 23:41 EDT] Vargas Anthony MD[Verified on: 06/01/2017 23:41 EDT] Vargas Anthony MD [facility] ED Note-Nursingon 06-02-2017 ED Note-Nursing Discharge and follow -up instructions reviewed with patient, including criteria/conditions for return to ED if necessary. Prescriptions (2 - sent electronically to pt's preferred pharmacy) and medication instructions also reviewed; pt verbalizes understanding of all instructions, offers no questions. Patient without c/o or s/s distress; ambulated out of ED without incidence, gait steady. [facility] ED Patient Education Noteon 06-02-2017 ED Patient Education Note Education MaterialsEmergency MedicineEpididymitisEpididymiti s is swelling (inflammation) of the epididymis. The epididymis is a cord-like structure that is located along the top and back part of the testicle. It collects and stores sperm from the testicle. This condition can also cause pain and swelling of the testicle and scrotum. Symptoms usually start suddenly (acute epididymitis). Sometimes epididymitis starts gradually and lasts for a while (chronic epididymitis). This type may be harder to treat.CAUSESIn men 35 and younger, this condition is usually caused by a bacterial infection or sexually transmitted disease (STD), such as:? Gonorrhea.? Chlamydia. ?In men 35 and older who do not have anal sex, this condition is usually caused by bacteria from a blockage or abnormalities in the urinary system. These can result from:? Having a tube placed into the bladder (urinary catheter).? Having an enlarged or inflamed prostate gland.? Having recent urinary tract surgery.In men who have a condition that weakens the body's defense system (immune system), such as HIV, this condition can be caused by:? Other bacteria, including tuberculosis and syphilis.? Viruses.? Fungi.Sometimes this condition occurs without infection. That may happen if urine flows backward into the epididymis after heavy lifting or straining.RISK FACTORSThis condition is more likely to develop in men:? Who have unprotected sex with more than one partner.? Who have anal sex. ?? Who have recently had surgery. ?? Who have a urinary catheter.? Who have urinary problems.? Who have a suppressed immune system.??SYMPTOMSThis condition usually begins suddenly with chills, fever, and pain behind the scrotum and in the testicle. Other symptoms include:? Swelling of the scrotum, testicle, or both.? Pain when?ejaculating?or urinating.? Pain in the back or belly.? Nausea.? Itching and discharge from the penis.? Frequent need to pass urine.? Redness and tenderness of the scrotum.DIAGNOSISYour health care provider can diagnose this condition based on your symptoms and medical history. Your health care provider will also do a physical exam to ask about your symptoms and check your scrotum and testicle for swelling, pain, and redness. You may also have other tests, including: ?? Examination of discharge from the penis.? Urine tests for infections, such as STDs. ?Your health care provider may test you for other STDs, including HIV.?TREATMENTTreatment for this condition depends on the cause. If your condition is caused by a bacterial infection, oral antibiotic medicine may be prescribed. If the bacterial infection has spread to your blood, you may need to receive IV antibiotics. Nonbacterial epididymitis is treated with home care that includes bed rest and elevation of the scrotum.Surgery may be needed to treat:? Bacterial epididymitis that causes pus to build up in the scrotum (abscess).? Chronic epididymitis that has not responded to other treatments.HOME CARE INSTRUCTIONSMedicines?? Take feuj-ssk-mapfqst and prescription medicines only as told by your health care provider. ?? If you were prescribed an antibiotic medicine, take it as told by your health care provider. Do not stop taking the antibiotic even if your condition improves.Sexual Activity?? If your epididymitis was caused by an STD, avoid sexual activity until your treatment is complete.? Inform your sexual partner or partners if you test positive for an STD. They may need to be treated.?Do not engage in sexual activity with your partner or partners until their treatment is completed.General Instructions?? Return to your normal activities as told by your health care provider. Ask your health care provider what activities are safe for you.? Keep your scrotum elevated and supported while resting. Ask your health care provider if you should wear a scrotal support, such as a jockstrap. Wear it as told by your health care provider.? If directed, apply ice to the affected area: ?? Put ice in a plastic bag.? Place a towel between your skin and the bag.? Leave the ice on for 20 minutes, 2?3 times per day.? Try taking a sitz bath to help with discomfort. This is a warm water bath that is taken while you are sitting down. The water should only come up to your hips and should cover your buttocks. Do this 3?4 times per day or as told by your health care provider.? Keep all follow-up visits as told by your health care provider. This is important.SEEK MEDICAL CARE IF:? You have a fever. ?? Your pain medicine is not helping. ?? Your pain is getting worse. ?? Your symptoms do not improve within three days.This information is not intended to replace advice given to you by your health care provider. Make sure you discuss any questions you have with your health care provider.Document Released: 09/24/2001 Document Revised: 06/17/2016 Document Reviewed: 02/12/2016[employer] Interactive Patient Education ?2016 INAPPIN. Normal [facility] ED Patient Summaryon 017 ED Patient Summary [facility] - Emergency [id number] [id number] pATIENT DISCHARGE INSTRUCTIONSPatient InformationName: WILKESWILLOW Age: 26 YearsDate of : [birth year]MRN: [id number] For Visit: Testicular pain; Testicular pain; PELVIC/TESTICULAR PAIN/ X 1 WEEKArrival Time: 06/01/17 23:15:00Phone: Primary Care Physician: Provider, NoneAttending Physician: Vargas Anthony MDComment:Visit Diagnosis:Diagnoses This Visit Left epididymitis (N45.1) Testicular pain ([id number]) Testicular pain ([id number] 042A31)If you received any narcotics, sedation, or any other medication that causes drowsiness for the next 24 hours, unless otherwise directed:? Do not drive a car.? Do not operate machinery such as power tools, lawn mowers, drills, sewing machines, or stoves? Avoid alcoholic beverages and drugs for allergies, nerves, or sleep? Do not make important personal or business decisions or sign any legal documentsWith: Address: When:None Provider Within 3 to 5 daysMedication Information:The exam and treatment you received today in the [facility] Emergency Department were for an urgent problem and are not intended as complete care. It is important for you to follow up with a doctor, nurse practitioner, or physician?s transportation assistant for ongoing care. If your symptoms become worse or you do not improve as expected and you are unable to reach your usual health care provider, you should return to the Emergency Department, we are available 24 hours a day.For those patients who have received Radiology results, the interpretation of your X-ray as given to you by our Emergency Department physician is only a preliminary report. The Radiologist will review your films and if there is a change in the diagnosis you will be notified by phone. Please make sure you have provided a working phone number so we can reach you if necessary.In the event that you had a lab culture while you were a patient in the Emergency Department, you will be notified by phone if there is a need to change your antibiotic. Please make sure you have provided a working phone number so we can reach you if necessary.[facility] Emergency Department has provided you with a complete list of medications post discharge. Please inform your child day care provider/provider of your visit and for further instruction on these medications. Any specific questions regarding your chronic medications and dosages should be discussed with your primary care physician(s) and/or pharmacist. [facility]ationsR[facility] [address] [id number], [phone] (doxycycline hyclate 100 mg oral capsule) 1 cap Oral 2 times a day. Refills: 0.naproxen (Naprosyn 500 mg oral tablet) 1 tab(s) Oral 2 times a day as needed for pain. Refills: 0.Medications to Continue That Have Not ChangedOther Medicationsalbuterol (ProAir HFA 90 mcg/inh inhalation aerosol) 2 puff(s) Inhalation 4 times a day as needed as needed for wheezing. Refills: 11.budesonide-formoterol (Symbicort) Inhalation 2 times a day.Visit InformationAllergies:Substance Reaction Symptoms Type CommentsNo known allergies DrugVital Signs: Vitals and Measurements this Visit (last charted value for your 06/01/2017 visit) Vital Signs This Visit Temperature Oral: 36.8 DegC Peripheral Pulse Rate: 96 bpm Respiratory Rate: 18 br/min Systolic Blood Pressure: 130 mmHg Diastolic Blood Pressure: 78 mmHg SpO2: 100 % Oxygen Therapy: Room air Measurements This Visit Height/Length Dosin.260 cm Height/Length Estimated: 175.260 cm Weight Dosin.840 kg Weight Estimated: 74.840 kgProblems List:Problem Onset CommentsAsthmaIneffective airway clearance Problem added automatically by system based on initiation of Ineffective Airway Clearance Plan of CarePatient EducationEpididymitisEpididymit is is swelling (inflammation) of the epididymis. The epididymis is a cord-like structure that is located along the top and back part of the testicle. It collects and stores sperm from the testicle. This condition can also cause pain and swelling of the testicle and scrotum. Symptoms usually start suddenly (acute epididymitis). Sometimes epididymitis starts gradually and lasts for a while (chronic epididymitis). This type may be harder to treat.CAUSESIn men 35 and younger, this condition is usually caused by a bacterial infection or sexually transmitted disease (STD), such as:? Gonorrhea.? Chlamydia. ?In men 35 and older who do not have anal sex, this condition is usually caused by bacteria from a blockage or abnormalities in the urinary system. These can result from:? Having a tube placed into the bladder (urinary catheter).? Having an enlarged or inflamed prostate gland.? Having recent urinary tract surgery.In men who have a condition that weakens the body's defense system (immune system), such as HIV, this condition can be caused by:? Other bacteria, including tuberculosis and syphilis.? Viruses.? Fungi.Sometimes this condition occurs without infection. That may happen if urine flows backward into the epididymis after heavy lifting or straining.RISK FACTORSThis condition is more likely to develop in men:? Who have unprotected sex with more than one partner.? Who have anal sex. ?? Who have recently had surgery. ?? Who have a urinary catheter.? Who have urinary problems.? Who have a suppressed immune system.??SYMPTOMSThis condition usually begins suddenly with chills, fever, and pain behind the scrotum and in the testicle. Other symptoms include:? Swelling of the scrotum, testicle, or both.? Pain when?ejaculating?or urinating.? Pain in the back or belly.? Nausea.? Itching and discharge from the penis.? Frequent need to pass urine.? Redness and tenderness of the scrotum.DIAGNOSISYour health care provider can diagnose this condition based on your symptoms and medical history. Your health care provider will also do a physical exam to ask about your symptoms and check your scrotum and testicle for swelling, pain, and redness. You may also have other tests, including: ?? Examination of discharge from the penis.? Urine tests for infections, such as STDs. ?Your health care provider may test you for other STDs, including HIV.?TREATMENTTreatment for this condition depends on the cause. If your condition is caused by a bacterial infection, oral antibiotic medicine may be prescribed. If the bacterial infection has spread to your blood, you may need to receive IV antibiotics. Nonbacterial epididymitis is treated with home care that includes bed rest and elevation of the scrotum.Surgery may be needed to treat:? Bacterial epididymitis that causes pus to build up in the scrotum (abscess).? Chronic epididymitis that has not responded to other treatments.HOME CARE INSTRUCTIONSMedicines?? Take mfxs-uup-blccihu and prescription medicines only as told by your health care provider. ?? If you were prescribed an antibiotic medicine, take it as told by your health care provider. Do not stop taking the antibiotic even if your condition improves.Sexual Activity?? If your epididymitis was caused by an STD, avoid sexual activity until your treatment is complete.? Inform your sexual partner or partners if you test positive for an STD. They may need to be treated.?Do not engage in sexual activity with your partner or partners until their treatment is completed.General Instructions?? Return to your normal activities as told by your health care provider. Ask your health care provider what activities are safe for you.? Keep your scrotum elevated and supported while resting. Ask your health care provider if you should wear a scrotal support, such as a jockstrap. Wear it as told by your health care provider.? If directed, apply ice to the affected area: ?? Put ice in a plastic bag.? Place a towel between your skin and the bag.? Leave the ice on for 20 minutes, 2?3 times per day.? Try taking a sitz bath to help with discomfort. This is a warm water bath that is taken while you are sitting down. The water should only come up to your hips and should cover your buttocks. Do this 3?4 times per day or as told by your health care provider.? Keep all follow-up visits as told by your health care provider. This is important.SEEK MEDICAL CARE IF:? You have a fever. ?? Your pain medicine is not helping. ?? Your pain is getting worse. ?? Your symptoms do not improve within three days.This information is not intended to replace advice given to you by your health care provider. Make sure you discuss any questions you have with your health care provider.Document Released: 09/24/2001 Document Revised: 06/17/2016 Document Reviewed: 02/12/2016[employer] Interactive Patient Education ?2016 INAPPIN. Viruses or BacteriaWhat?s got you sick?Antibiotics only treat bacterial infections. Viral illnesses cannot be treated with antibiotics. When an antibiotic is not prescribed, ask your healthcare professional for tips on how to relieve symptoms and feel better. Usual CauseIllnessVirusesBacteria Antibiotic NeededCold/Runny Nose NOBronchitis/Chest Cold (in otherwise healthy children and adults) NOWhooping Cough YesFlu NOStrep Throat YesSore Throat (except strep) NOFluid in the middle ear (otitis media with effusion) NOUrinary Tract Infection YesAntibiotics Aren?t Always the Answerwww.cdc.gov/getsmart GET SMART Know When Antibiotics [place] Department of Health and Human ServicesCenters for Disease Control and Prevention June 2014 [facility] Operative Reporton 7 Operative Report MR#: [id number] Maikel colón [facility] Pt. Name: Willow Wilkes Room #: 0C Discharge 04/09/2017 Date: Birthdate: 1990 OPERATIVE REPORTDATE OF SURGERY: 04/09/2017SURGEON: Ovi Lange M.D.ASSISTANTS: Francesco Lowry M.D.; Nadira Gambino M.D.; Francesco Carreno M.D.ANESTHESIA:General.PREOPERA TIVE DIAGNOSIS:Left dorsal hand wound measuring 7 x 2 cm.OPERATION: 1. Left dorsal hand incision and drainage down to muscle, non-excisional wound measuring 7 x 2 cm. 2. Primary closure of left dorsal hand wound.POSTOPERATIVE DIAGNOSIS:Left dorsal hand wound measuring 7 x 2 cm.IV FLUIDS:Per anesthesia protocol.TOURNIQUET TIME:10 minutes.ESTIMATED BLOOD LOSS:Minimal.INDICATIONS:The patient is a 26 -year-old male who presented back to us a few weeks agowith dorsal hand swelling. The patient previously had a wound ayear ago that was I D so he underwent irrigation and debridement of thiswound and it was packed with wet-to-dry dressing. He presents backtoday for further I D and possible closure. Discussion was had regardingrisk, benefits and alternatives to the procedure and the patient elected toproceed.PROCEDURE:The patient was brought to the preoperative holding area, informed consentwas obtained. Surgical site was marked with the operating surgeonsinitials. The patient was then brought back to the operating room where hewas laid supine on the operating room table. Hand was placed out on handtable and preoperative antibiotics were administered. General anesthesiawas smoothly induced. We then proceeded to perform irrigation anddebridement using curette, we were able to gently freshen the wound bedwhich appeared to have healthy granulation tissue present. [place] was usedto minimally undermine the edges of the skin wound in order to approximateit for closure. The wound was then copiously irrigated with Betadine andnormal saline solution. We then began closure with 3-0 Vicryl followed by3-0 Novafil for the skin. Sterile dressing was then applied to the woundand JAVI wrap bandage was applied. The patient was then awakened fromanesthesia and transferred to the PACU for recovery.Dr. Lange was present for all critical portions of the procedure andmade all decision regarding the patient's care.POSTOPERATIVE PLAN:The patient will be weightbearing as tolerated on that left hand. He willkeep the dressing in place for 5 days. After which he will do daily drydressing changes. We will see him back in two weeks' time for repeatwound evaluation and suture removal.Electronically Signed by:Ovi Lange M.D. 04/11/2017 11:45 A Ovi Lange M.D. I was present for the givens and critical portions and I was otherwiseimmediately available to assist. Date Dict: 04/09/2017//Katharine Pak Trans: 04/11/2017 08:21 A/Neil_JN:[id number]/ Normal [facility] Encounters Encounter Date Encounter Type Care Provider Facility Start: 05-27-2020 End: 05-28-2020 Patient encounter procedure PLACIDO SMITH Facility: Start: 04-05-2020 End: 04-06-2020 Patient encounter procedure PLACIDO SMITH Facility: Start: 03-24-2020 End: 03-25-2020 Patient encounter procedure LITTLE RADHA Facility: Start: 11-11-2017 End: 11-12-2017 Ambulatory Sammie Spaulding [place] Facility:[facility] Start: 10-28-2017 End: 10-29-2017 Ambulatory Sammie Pardo Facility:[facility] Start: 10-06-2017 End: 10-16-2017 Evaluation and management of inpatient Myra~[id number] UNKNOWN [place] Facility:[facility] Start: 08-06-2017 End: 08-12-2017 Ambulatory None Provider Facility:[facility] Start: 08-06-2017 End: 08-12-2017 Emergency department patient visit None Provider Facility:[facility] Start: 06-02-2017 End: 06-02-2017 Emergency department patient visit None Provider Facility:[facility] Start: 06-02-2017 End: 06-02-2017 Ambulatory Vargas Anthony Facility:[facility] Start: 04-09-2017 End: 04-10-2017 Ambulatory OVI LANGE Facility:[facility] Procedures Date Procedure Procedure Detail Performing Clinician Start: 04-09-2017 ANESTH LOWER ARM SURGERY FIDENCIO Sepulveda CORY Start: 04-09-2017 Debridement muscle & fascia 20 sq cm/< OVI EBRAHEIM Payers Date Payer Category Payer Unknown [id number] 1990 Unknown [id number] 1990 Unknown [id number] 1990 Unknown [id number] 1960 Unknown [id number] Summary Purpose Family History No Family History Records FoundNo Family History Records FoundNo Family History Records FoundNo Family History Records Found Advance Directives No Advanced Directives Records FoundNo Advanced Directives Records FoundNo Advanced Directives Records FoundNo Advanced Directives Records Found Additional Source Comments (unrecognized sect ion and content) No Status Records FoundNo Status Records FoundNo Status Records FoundNo Status Records Found INFORMATION SOURCE (unrecogn ized section and content) DATE CREATED AUTHOR 04/04/2018 [facility] DATE CREATED AUTHOR AUTHOR'S ORGANIZ ATION 04/05/2018 [facility] DATE CREATED AUTHOR AUTHOR'S ORGANIZ ATION 04/06/2018 [facility] DATE CREATED AUTHOR AUTHOR'S ORGANIZ ATION 06/02/2020 [facility] FOR RECORDS PERTAINING TO PATIENTS WHO ARE OR HAVE BEEN ENROLLED IN A CHEMICAL DEPENDENCY/SUBSTANCEABUSE PROGRAM, SOME INFORMATION MAY BE OMITTED. This clinical summary was aggregated from multiple sources. Caution should be exercised in using it in the provision of clinical care. This summary normalizes information from multiple sources, and as a consequence, information in this document may materially change the coding, format and clinical context of patient data. In addition, data may be omitted in some cases. CLINICAL DECISIONS SHOULD BE BASED ON THE PRIMARY CLINICAL RECORDS. [employer] [facility]. provides no warranty or guarantee of the accuracy or completeness of information in this document."
--- NOTE | 2023-10-02 18:11 | ED.GENADUL1 ---
HPI - General Adult General Chief complaint: Extremity Injury, Lower Stated complaint: INFECTED TOE, FEVER Time Seen by Provider: 10/02/23 17:57 Source: patient Mode of arrival: walk-in Limitations: no limitations History of Present Illness HPI narrative: 33-year-old male presents for redness pain and swelling at his right great toe. It's been like this for several days. He thought he might have had a fever home. He is not diabetic. The pain is throbbing and moderate and continuous. Related Data Home Medications Medication Instructions Recorded Confirmed albuterol sulfate 2.5 mg/3 mL mg 05/14/23 (0.083 %) solution for nebulization ibuprofen 800 mg tablet mg 05/14/23 Previous Rx's Medication Instructions Recorded ketorolac 10 mg tablet 10 mg PO TID PRN pain #10 tabs 08/30/23 methocarbamol 750 mg tablet 750 mg PO TID PRN pain #20 tabs 08/30/23 cephalexin 500 mg capsule 500 mg PO QID 10 days #40 caps 10/02/23 Allergies Allergy/AdvReac Type Severity Reaction Status Date / Time No Known Drug Allergies Allergy Verified 08/30/23 21:02 Review of Systems ROS Narrative A ten point review of systems is negative except as noted above. PFSH PFSH Social History Smoking status: Heavy tobacco smoker Exam Narrative Exam Narrative: Nurses note and vital signs reviewed and patient is not hypoxic. General: The patient appears well and in no apparent distress. Patient is resting comfortably on cart. Skin: Warm, dry, no pallor noted. There is no rash noted. Head: Normocephalic, atraumatic Eye: Normal conjunctiva, no drainage Ears, Nose, Mouth, and Throat: oral mucosa is moist. Nares patent. Cardiovascular: Regular Rate and Rhythm Respiratory: Patient is in no distress, no accessory muscle use Back: non-tender GI: nontender Musculoskeletal: right great toenail is mildly ingrown and there is erythema. There is no drainage or lymphangitis. Neurological: A&O, normal speech Psychiatric: Cooperative Constitutional Vital Signs, click to edit/add: Last Vital Signs Temp 98.5 F 10/02/23 17:59 Pulse 94 H 10/02/23 17:59 Resp 18 10/02/23 17:59 BP 132/84 10/02/23 17:59 Pulse Ox 99 10/02/23 17:59 O2 Del Method Room Air 10/02/23 17:59 Course Vital Signs Vital signs: Vital Signs Temperature 98.5 F 10/02/23 17:59 Pulse Rate 94 H 10/02/23 17:59 Respiratory Rate 18 10/02/23 17:59 Blood Pressure 132/84 10/02/23 17:59 Pulse Oximetry 99 10/02/23 17:59 Oxygen Delivery Method Room Air 10/02/23 17:59 Temperature 98.5 F 10/02/23 17:59 Pulse Rate 94 H 10/02/23 17:59 Respiratory Rate 18 10/02/23 17:59 Blood Pressure 132/84 10/02/23 17:59 Pulse Oximetry 99 10/02/23 17:59 Oxygen Delivery Method Room Air 10/02/23 17:59 Medical Decision Making MDM Narrative Medical decision making narrative: he is prescribed Keflex and was recommended warm soaks and referred to podiatry for follow-up. Treatment diagnosis and follow-up were discussed with the patient. Differential Diagnosis Differential Diagnosis: ingrown infected toenail, cellulitis Discharge Plan Discharge Chief Complaint: Extremity Injury, Lower Clinical Impression: Ingrown toenail with infection Patient Disposition: Home, Self-Care Time of Disposition Decision: 18:09 Condition: Good Mode of Transportation: Private Vehicle Prescriptions / Home Meds: New cephalexin 500 mg capsule 500 mg PO QID 10 Days Qty: 40 0RF No Action albuterol sulfate 2.5 mg /3 mL (0.083 %) solution for nebulization ibuprofen 800 mg tablet ketorolac 10 mg tablet 10 mg PO TID PRN (Reason: pain) Qty: 10 0RF Rx Instructions: DO NOT TAKE WITH IBUPROFEN methocarbamol 750 mg tablet 750 mg PO TID PRN (Reason: pain) Qty: 20 0RF Instructions: Ingrown Nail (ED), Warm Compress or Soak (ED) Additional Instructions: Follow-up with Dr. Rhoades Stand Alone Forms: Portal Instructions Referrals: PLACIDO SMITH [Primary Care Provider] - 1 week
[2023-10-02] MEDS: CEPHALEXIN 500 MG CAPSULE PO (18:15)
[2023-10-02 18:42] VITALS: BP 110/68; PULSE 73; RESP 16; O2SAT 96
== END 2023-10-02 18:19 | disposition home or self-care (01) ==
PROVIDERS: Emergency Provider Emergency Medicine; PCP Family Medicine
DX: L60.0 Ingrowing nail (principal); Z79.899 Other long term (current) drug therapy; F17.210 Nicotine dependence, cigarettes, uncomplicated
CPT/HCPCS: 99283

== ENCOUNTER 2024-07-23 20:19 | Emergency (ER) | payer MEDICAID, SELFPAY ==
[2024-07-23] VITALS (7 sets, daily range): BP systolic 139; BP diastolic 59; PULSE 99–110; TEMP 36.6; O2SAT 95–100; BMI 32.5
--- OUTSIDE RECORDS SUMMARY | 2024-07-23 20:26 | XMS_ITS | CCD ---
Author Organization [facility] Care Team Providers Care Dobie Worker Name Role Phone Myra [phone] UNKNOWN Unavailable Unavailable Patten, Jose M R. Unavailable Unavailable Lety, Mohamad Unavailable Unavailable Ojukwu, Mbanefo Unavailable Unavailable Patten, Jose M R. Unavailable Unavailable Patten, Jose M R. Unavailable Unavailable Patten, Jose M R. Unavailable Unavailable Patten, Jose M R. Unavailable Unavailable Aptten, Jose M R. Unavailable Unavailable Patten, Jose [...] Unavailable Unavailable Blank, Julian S Unavailable Unavailable Marengo, Sammie A. Unavailable Unavailable Marengo, Sammie A. Unavailable Unavailable Shipman, Octavio Unavailable Unavailable Char, Sammie A. Unavailable Unavailable Char, Sammie A. Unavailable Unavailable Shipman, Octavio Unavailable Unavailable Provider, None Unavailable Unavailable Stalter, Vargas Unavailable Unavailable Stalter, Vargas Unavailable Unavailable Stalter, Vargas Unavailable Unavailable Stalter, Vargas Unavailable Unavailable Provider, None Unavailable Unavailable Provider, None Unavailable Unavailable Mei, Neeraj R. Unavailable Unavailable Glen Gardner, Neeraj R. Unavailable Unavailable Provider, None Unavailable Unavailable Mei, Neeraj R. Unavailable Unavailable Glen Gardner, Neeraj R. Unavailable Unavailable EBRAHEIM, OVI Unavailable Unavailable EBRAHEIM, OVI Unavailable Unavailable SELF, REFERRED Unavailable Unavailable SELF, REFERRED Unavailable Unavailable KS Unavailable Unavailable EBRAHEIM, OVI Unavailable Unavailable KS Unavailable Unavailable RAY, FIDENCIO Sepulveda Unavailable Unavailable HAY, LITTLE Admitting Unavailable HAY, LITTLE Attending Unavailable DEFRANCE, PLACIDO Primary Care Unavailable RADHA, LITTLE Consulting Unavailable JOANNA HEBERT Consulting Unavailkevin NUNN, LISA Consulting Unavailable ASH, JUSTIN Consulting Unavailable DEFRANCE, PLACIDO Primary Care Unavailable PONCHO, JENNIFER Coffey Admitting Unavailable ISAAC, JENNIFER Coffey Attending Unavailable PONCHO, JENNIFER Coffey Consulting Unavailable KELLY THOMAS Consulting Unavailable DEFRANCE, PLACIDO Admitting Unavailable DEFRANCE, PLACIDO Attending Unavailable DEFRANCE, PLACIDO Primary Care Unavailable DEFRANCE, PLACIDO Consulting Unavailable RUSJUTSIN FIGUEREDO Attending Unavailable DEFRANCE, PLACIDO T Attending Unavailable DEFRANCE, PLACIDO T Referring Unavailable DEFRANCE, PLACIDO T Primary Care Unavailable DEFRANCE, PLACIDO T Primary Care Unavailable JIN, CANDELARIO Attending Unavailable JIN, CANDELARIO Referring Unavailable DEFRANCE, PLACIDO T Primary Care Unavailable DEFRANCE, PLACIDO T Primary Care Unavailable HARTLE, WILLOW Sepulveda Attending Unavailable HARTLE, WILLOW Sepulveda Attending Unavailable HARTLE, WILLOW Sepulveda Referring Unavailable DEFRANCE, PLACIDO T Primary Care Unavailable DEFRANCE, PLACIDO T Primary Care Unavailable ROME CANALES Attending Unavailable FELIPEWIOg, ROME Attending Unavailable ROME CANALES Referring Unavailable DEFRANCE, PLACIDO T Primary Care Unavailable DEFRANCE, PLACIDO T Referring Unavailable DEFRANCE, PLACIDO T Primary Care Unavailable DEFRANCE, PLACIDO T Primary Care Unavailable OBRYHAYES MONTANO Attending Unavailable OBRYCKI, HAYES Foley Attending Unavailable OBRYCKHAYES Bustamante Referring Unavailable DEFRANCE, PLACIDO T Primary Care Unavailable DEFRANCE, PLACIDO T Primary Care Unavailable JOSHUA PROCTOR Attending Unavailable ESTHELA, JOSHUA Washington Attending Unavailable JOSHUA PROCTOR Referring Unavailable DEFRANCE, PLACIDO T Primary Care Unavailable Problems Active Problems Problem Classification Problem Date Documented Da te Episodic/Chronic Abdominal pain (4 sources) Upper abdominal pain, unspecified; Translations: [UPPER ABDOMINAL PAIN, UNSPECIFIED] Onset: 03-24-2020 Episodic Alcohol-related disorders (2 sources) Alcohol abuse, uncomplicated; Translations: [Alcohol intoxication] Onset: 04-09-2020 Chronic Alcohol-related disorders (1 source) Alcohol use, unspecified with intoxication, unspecified; Translations: [Alcohol use, unspecified with intoxication, unspecified] Onset: 04-09-2024 Episodic Anxiety disorders (1 source) Anxiety disorder, unspecified; Translations: [ANXIETY DISORDER UNSPECIFIED] Onset: 04-09-2020 Chronic Asthma (3 sources) Unspecified asthma, uncomplicated; Translations: [Mild persistent asthma with (acute) exacerbation] Onset: 04-09-2017 Chronic Conditions associated with dizziness or vertigo (1 source) Dizziness and giddiness; Translations: [Dizziness and giddiness] Onset: 06-22-2024 Episodic Epilepsy; convulsions (1 source) Other seizures; Translations: [...] [NAUSEA] Onset: 03-26-2020 Episodic Nonspecific chest pain (6 sources) Chest pain, unspecified; Translations: [Chest pain] Onset: 04-05-2020 Episodic Other connective tissue disease (2 sources) Pain in right leg; Translations: [Pain in right leg] Onset: 06-05-2024 Episodic Other connective tissue disease (2 sources) Other specified soft tissue disorders; Translations: [Other specified soft tissue disorders] Onset: 06-05-2024 Episodic Other connective tissue disease (1 source) Pain in calf Onset: 06-05-2024 Episodic Substance-related disorders (2 sources) Nicotine dependence, cigarettes, uncomplicated; Translations: [NICOTINE DEPENDENCE, CIGARETTES, UNCOMPLICATED] Onset: 04-09-2017 Chronic Superficial injury; contusion (1 source) Contusion of left front wall of thorax, initial encounter; Translations: [CONTUS LT FRONT WALL THORAX INITIAL] Onset: 04-09-2020 Episodic Unclassified (2 sources) Unknown / UNK(Unknown) Onset: 04-09-2017 Unclassified (1 source) Wound Check Onset: 12-15-2023 Past or Other Problems Problem Classification Problem Date Documented Da te Episodic/Chronic Open wounds of extremities (4 sources) Unspecified open wound of left hand, initial encounter; Translations: [UNSPECIFIED OPEN WOUND OF LEFT HAND, INITIAL ENCOUNTER] Onset: 04-09-2017 Episodic Other connective tissue disease (1 source) Pain in toe Onset: 12-15-2023 Episodic Other skin disorders (1 source) Ingrowing nail; Translations: [Ingrowing nail] Onset: 12-15-2023 Episodic Other skin disorders (1 source) Toe swelling Onset: 11-28-2023 Episodic Skin and subcutaneous tissue infections (1 source) Cellulitis of other sites; Translations: [Cellulitis of other sites] Onset: 11-28-2023 Episodic Results Test Name Value Interpretation Reference Range Facility CBC AND AUTO DIFFon 06-22-20 ABSOLUTE BASOPHIL 0.1 X10E9/L Normal 0.0-0.2 [facility] Comment on above: Performed By: #### C CHARLY CMP, 3040-3, 05594-1, 34240-5 ####[facility] ([id number])[address] [place] [address] 85616 ABSOLUTE NEUTROPHIL 2.9 X10E9/L Normal 1.5-6.6 [facility] Comment on above: Performed By: #### Tamara PARKS CMP, 3040-3, 11409-1, 50734-0 ####[facility] ([id number])[address] [place] [address] 05291 Basophils/100 WBC (Bld) 0.7 % Normal [facility] Comment on above: Performed By: #### Tamara PARKS, CMP, 3040-3, 79170-1, 54369-5 ####[facility] ([id number])[address] [place] [address] 99407 Eosinophils (Bld) [#/Vol] 1.0 10*3/uL High 0.0-0.4 [facility] Comment on above: Performed By: #### Tamara PARKS CMP, 3040-3, 92092-9, 49313-8 ####[facility] ([id number])[address] [place] [address] Eosinophils/100 WBC (Bld) 12.1 % Normal [facility] Comment on above: Performed By: #### C BCA, CMP, 3040-3, 71292-8, 33026-5 ####[facility] ([id number])[address] [place] [address] 58876 Erythrocyte distribution width (RBC) [Ratio] 13.2 % Normal 11.5-15.0 [facility] Comment on above: Performed By: #### C CHARLY, CMP, 3040-3, 65813-0, 49972-7 ####[facility] ([id number])[address] [place] [address] 78695 Hematocrit (Bld) [Volume fraction] 42.3 % Normal 39-49 [facility] Comment on above: Performed By: #### C CHARLY, CMP, 3040-3, 42040-0, 30338-7 ####[facility] ([id number])[address] [place] [address] 57604 Hemoglobin (Bld) [Mass/Vol] 14.5 g/dL Normal 13.0-17.0 [facility] Comment on above: Performed By: #### C CHARLY, CMP, 3040-3, 43850-3, 41830-7 ####[facility] ([id number])[address] [place] [address] 89931 Lymphocytes (Bld) [#/Vol] 3.1 10*3/uL Normal 1.0-3.5 [facility] Comment on above: Performed By: #### C BCA, CMP, 3040-3, 60948-7, 26824-6 ####[facility] ([id number])[address] [place] [address] 46071 Lymphocytes/100 WBC (Bld) 39.4 % Normal [facility] Comment on above: Performed By: #### C BCA, CMP, 3040-3, 87279-3, 02908-2 ####[facility] ([id number])[address] [place] [address] 17339 MCH (RBC) [Entitic mass] 31.1 pg Normal 27-34 [facility] Comment on above: Performed By: #### C BCA, CMP, 3040-3, 94640-4, 91118-0 ####[facility] ([id number])[address] [place] [address] 12543 MCHC (RBC) [Mass/Vol] 34.1 g/dL Normal 32-36 [facility] Comment on above: Performed By: #### C CHARLY, CMP, 3040-3, 93596-5, 01280-2 ####[facility] ([id number])[address] [place] [address] 71054 MCV (RBC) [Entitic vol] 91 fL Normal 80-100 [facility] Comment on above: Performed By: #### C CHARLY, CMP, 3040-3, 03426-0, 71092-7 ####[facility] ([id number])[address] [place] [address] 65661 Monocytes (Bld) [#/Vol] 0.9 10*3/uL Normal 0-0.9 [facility] Comment on above: Performed By: #### C BCA, CMP, 3040-3, 83334-9, 97912-2 ####[facility] ([id number])[address] [place] [address] 76364 Monocytes/100 WBC (Bld) 11.3 % Normal [facility] Comment on above: Performed By: #### C BCA, CMP, 3040-3, 94955-8, 32909-6 ####[facility] ([id number])[address] [place] [address] 29241 Neutrophils/100 WBC (Bld) 36.5 % Normal [facility] Comment on above: Performed By: #### C BCA, CMP, 3040-3, 89139-4, 56805-4 ####[facility] ([id number])[address] [place] [address] 91895 Platelet mean volume (Bld) [Entitic vol] 8.2 fL Normal 7-12 [facility] Comment on above: Performed By: #### C BCA, CMP, 3040-3, 32613-6, 10544-9 ####[facility] ([id number])[address] [place] [address] 70968 Platelets (Bld) [#/Vol] 285 10*3/uL Normal 150-450 [facility] Comment on above: Performed By: #### C BCA, CMP, 3040-3, 74819-9, 09682-5 ####[facility] ([id number])[address] [place] [address] 64323 RBC COUNT 4.65 X10E12/L Normal 4.10-5.70 [facility] Comment on above: Performed By: #### C BCA, CMP, 3040-3, 20309-6, 46076-5 ####[facility] ([id number])[address] [place] [address] 80953 WBC (Bld) [#/Vol] 7.9 10*3/uL Normal 4.0-11.0 [facility] Comment on above: Performed By: #### C BCA, CMP, 3040-3, 40267-1, 51531-4 ####[facility] ([id number])[address] [place] [address] 83936 COMPREHENSIVE METABOLIC PANE Eladio 06-22-2024 Albumin [Mass/Vol] 4.5 g/dL Normal 3.2-5.3 [facility] Comment on above: Performed By: #### C BCA, CMP, 3040-3, 51572-3, 87874-0 ####[facility] ([id number])[address] [place] [address] 47276 ALP [Catalytic activity/Vol] 62 U/L Normal 39-130 [facility] Comment on above: Performed By: #### C BCA, CMP, 3040-3, 99421-9, 77046-6 ####[facility] ([id number])[address] [place] [address] 74634 ALT [Catalytic activity/Vol] 30 U/L Normal 0-40 [facility] Comment on above: Performed By: #### C BCA, CMP, 3040-3, 17247-5, 28847-9 ####[facility] ([id number])[address] [place] [address] 73591 Anion gap [Moles/Vol] 9 mmol/L Normal 5-15 [facility] Comment on above: Performed By: #### C BCA, CMP, 3040-3, 77085-3, 26733-1 ####[facility] ([id number])[address] [place] [address] 98850 AST [Catalytic activity/Vol] 28 U/L Normal 0-41 [facility] Comment on above: Performed By: #### C BCA, CMP, 3040-3, 35402-4, 12972-3 ####[facility] ([id number])[address] [place] [address] 60584 Bilirubin [Mass/Vol] 0.7 mg/dL Normal 0.3-1.2 [facility] Comment on above: Performed By: #### C BCA, CMP, 3040-3, 56539-0, 85178-7 ####[facility] ([id number])[address] [place] [address] 85391 Calcium [Mass/Vol] 9.3 mg/dL Normal 8.5-10.5 [facility] Comment on above: Performed By: #### C BCA, CMP, 3040-3, 15497-8, 10693-6 ####[facility] ([id number])[address] [place] [address] 68715 Chloride [Moles/Vol] 101 mmol/L Normal 98-109 [facility] Comment on above: Performed By: #### C BCA, CMP, 3040-3, 59999-1, 07325-9 ####[facility] ([id number])[address] [place] [address] 15005 CO2 [Moles/Vol] 23 mmol/L Normal 22-32 [facility] Comment on above: Performed By: #### C CHARLY, CMP, 3040-3, 10978-7, 82698-7 ####[facility] ([id number])[address] [place] [address] 09719 Creatinine [Mass/Vol] 0.80 mg/dL Normal 0.70-1.20 [facility] Comment on above: Result Comment: METH OD TRACEABLE TO IDMS STANDARD Performed By: #### C CHARLY, CMP, 3040-3, 79180-4, 57606-8 ####[facility] ([id number])[address] [place] [address] 60988 eGFR (CKD-EPI) NON-RACE DEPENDENT >90 Normal >59 [facility] Comment on above: Result Comment: Reported eGFR is based on the CKD-EPI 2021 equation that does not use a race coefficient. Performed By: #### C BCA, CMP, 3040-3, 53556-2, 71092-7 ####[facility] ([id number])[address] [place] [address] 78997 Glucose [Mass/Vol] 103 mg/dL High 65-99 [facility] Comment on above: Performed By: #### C BCA, CMP, 3040-3, 74575-2, 31728-5 ####[facility] ([id number])[address] [place] [address] 41935 Potassium [Moles/Vol] 3.8 mmol/L Normal 3.5-5.0 [facility] Comment on above: Performed By: #### C BCA, CMP, 3040-3, 55288-0, 99066-3 ####[facility] ([id number])[address] [place] [address] 08476 Protein [Mass/Vol] 7.7 g/dL Normal 6.0-8.0 [facility] Comment on above: Performed By: #### C BCA, CMP, 3040-3, 22375-1, 49187-6 ####[facility] ([id number])[address] [place] [address] 09010 Sodium [Moles/Vol] 133 mmol/L Low 134-146 [facility] Comment on above: Performed By: #### C BCA, CMP, 3040-3, 24652-7, 31282-2 ####[facility] ([id number])[address] [place] [address] 66040 Urea nitrogen [Mass/Vol] 22 mg/dL Normal 5-23 [facility] Comment on above: Performed By: #### C BCA, CMP, 3040-3, 34139-5, 22468-1 ####[facility] ([id number])[address] [place] [address] 35000 LIPASEon 06-22-2024 Lipase [Catalytic activity/Vol] 30 U/L Normal 17-40 [facility] Comment on above: Performed By: #### C BCA, CMP, 3040-3, 77360-2, 16844-7 ####[facility] ([id number])[address] [place] [address] 40334 Natriuretic peptide B [Mass/ Vol]on 06-22-2024 BRN NATRIURETIC PEP <5 Normal <100.0 [facility] Comment on above: Performed By: #### C CECY PARKS, 74526-9, 57252-7 #### [facility] ([id number]) [address] [facility], [place] [address] SARS/FLU A+B/RSV by NAAT/Mol ecularon 06-22-2024 SARS/FLU A+B/RSV by NAAT/Molecular FLU A PCR Negative (qualifier value) FLU B PCR Negative (qualifier value) RSV by PCR Negative (qualifier value) SARS CoV 2 Not detected (qualifier value) NOTE The Xpert Xpress SARS-CoV-2/Flu/RSV Plus test is a rapid, multiplexed real-time RT-PCR test intended for the simultaneous qualitative detection and differentiation of SARS-CoV-2, influenza A, influenza B and respiratory syncytial virus (RSV) viral RNA from individuals suspected of respiratory viral infection consistent with COVID-19 by their healthcare provider. This test has not been validated in asymptomatic patients. The Xpert Xpress SARS-CoV-2 test is intended for use by qualified and trained operators who are performing tests using either [employer] DX or Moped systems and is limited to laboratories that meet the CLIA requirements to perform high and moderate complexity tests. The Xpert Xpress SARS-CoV-2/Flu/RSV Plus is only for use under the Food and Drug Administration's Emergency Use Authorization. Results are for the simultaneous detection and differentiation of SARS-CoV-2, influenza A, influenza B and RSV nucleic acids in clinical specimens. SARS-CoV-2, influenza A, influenza B and RSV RNA identified by this test are generally detectable in upper respiratory samples during the acute phase of infection. Positive results are indicative of the presence of the identified virus, but do not rule out bacterial infection or co-infection with other pathogens not detected by this test. Clinical correlation with patient history and other diagnostic information is necessary to determine patient infection status. The agent detected may not be the definite cause of disease. Negative results do not preclude SARS-CoV-2, influenza A, influenza B and RSV infection and should not be used as the sole basis for treatment or other patient management decisions. Negative results must be combined with clinical observations, patient history and epidemiological information. An Invalid result may occur with specimen-associated inhibition unable to be resolved with specimen repeat. Fact Sheet for Healthcare Providers: https://www.fda.gov/media/44403 2/download Fact Sheet for Patients: https://www.fda.gov/media/06417 6/download Normal [facility] Comment on above: Performed By: #### C CECY PARKS, 51987-0, 40549-8 #### [facility] ([id number]) [address] [place] [address] 90453 Troponin I.cardiac High sens itivity method [Mass/Vol]on 06-22-2024 1 HOUR TROP I, HIGH SENSITIVITY 2 ng/L Normal <21 [facility] Comment on above: Performed By: #### C CECY PARKS, 90228-5, 87578-0 #### [facility] ([id number]) [address] [place] [address] 10031 TROPONIN I, HIGH SENSITIVITY <2 Normal <21 [facility] Comment on above: Performed By: #### C CECY PARKS, 88233-1, 06263-8 #### [facility] ([id number]) [address] [place] [address] 57381 VENOUS BLOOD GASon [address] [facility] Comment on above: Performed By: #### V BG ####[facility] ([id number])[address] [place] [address] 54334 Base excess Calc (Bld) [Moles/Vol] 2.0 mmol/L Normal 0.0-2.0 [facility] Comment on above: Performed By: #### V BG ####[facility] ([id number])[address] [place] [address] 55820 Body temperature 98.6 [degF] Normal 37.0 [facility] Comment on above: Performed By: #### V BG ####[facility] ([id number])[address] [place] [address] [place] [address] HCO3 (Bld) [Moles/Vol] 26.0 mmol/L High 20.0-24.0 [facility] Comment on above: Performed By: #### V BG ####[facility] ([id number])[address] [place] [address] 14912 Oxygen saturation in Blood 89.0 % Normal >80.0 [facility] Comment on above: Performed By: #### V BG ####[facility] ([id number])[address] [place] [address] 03580 OXYGEN SOURCE RoomAir Normal [facility] Comment on above: Performed By: #### V BG ####[facility] ([id number])[address] [place] [address] 15660 PCO2, VENOUS 39.5 MMHG Normal 35-50 [facility] Comment on above: Performed By: #### V BG ####[facility] ([id number])[address] [place] [address] [place] [address] PH, VENOUS 7.426 High 7.320-7.[address] [facility] Comment on above: Performed By: #### V BG ####[facility] ([id number])[address] [place] [address] 92451 PO2, VENOUS 55 MMHG High 30-50 [facility] Comment on above: Performed By: #### V BG ####[facility] ([id number])[address] [place] [address] [place] [address] SAMPLE SITE N/A Normal [facility] Comment on above: Performed By: #### V BG ####[facility] ([id number])[address] [place] [address] [place] [address] SAMPLE TYPE VENOUS Normal [facility] Comment on above: Performed By: #### V BG ####[facility] ([id number])[address] [place] [address] 74418 XR CHEST 2 VWSon 06-22-2024 XR CHEST 2 VWS XR CHEST 2 VWS Clinical history: Chest pain with lightheadedness. Comparisons: 03/31/2022 through 03/03/2024. Findings: 2 views of the chest obtained. Heart size and pulmonary vasculature appear within normal limits. There is no pulmonary parenchymal consolidation. No pleural effusion nor pneumothorax. IMPRESSION: No evidence for acute cardiopulmonary disease. Finalized by Ash Berry MD on 06/22/2024 12:[address] [facility] CBC AND AUTO DIFFon 04-09-20 ABSOLUTE BASOPHIL 0.1 X10E9/L Normal 0.0-0.2 [facility] Comment on above: Performed By: #### Tamara PARKS CMP, 5643-2 #### [facility] ([id number]) [address] [place] [address] 81162 ABSOLUTE NEUTROPHIL 3.0 X10E9/L Normal 1.5-6.6 [facility] Comment on above: Performed By: #### Tamara PARKS CMP, 5643-2 #### [facility] ([id number]) [address] [place] [address] 78337 Basophils/100 WBC (Bld) 1.1 % Normal [facility] Comment on above: Performed By: #### Tamara PARKS CMP, 5643-2 #### [facility] ([id number]) [address] [place] [address] 69499 Eosinophils (Bld) [#/Vol] 0.5 10*3/uL High 0.0-0.4 [facility] Comment on above: Performed By: #### Tamara PARKS CMP, 5643-2 #### [facility] ([id number]) [address] [place] [address] 22376 Eosinophils/100 WBC (Bld) 7.1 % Normal [facility] Comment on above: Performed By: #### Tamara PARKS CMP, 5643-2 #### [facility] ([id number]) [address] [place] [address] 93693 Erythrocyte distribution width (RBC) [Ratio] 13.2 % Normal 11.5-15.0 [facility] Comment on above: Performed By: #### Tamara PARKS CMP, 5643-2 #### [facility] ([id number]) [address] [place] [address] 65771 Hematocrit (Bld) [Volume fraction] 43.8 % Normal 39-49 [facility] Comment on above: Performed By: #### Tamara PARKS CMP, 5643-2 #### [facility] ([id number]) [address] [place] [address] 91424 Hemoglobin (Bld) [Mass/Vol] 15.1 g/dL Normal 13.0-17.0 [facility] Comment on above: Performed By: #### Tamara PARKS CMP, 5643-2 #### [facility] ([id number]) [address] [place] [address] 48449 Lymphocytes (Bld) [#/Vol] 2.9 10*3/uL Normal 1.0-3.5 [facility] Comment on above: Performed By: #### Tamara PARKS CMP, 5643-2 #### [facility] ([id number]) [address] [place] [address] 87451 Lymphocytes/100 WBC (Bld) 42.1 % Normal [facility] Comment on above: Performed By: #### Tamara PARKS CMP, 5643-2 #### [facility] ([id number]) [address] [place] [address] 32524 MCH (RBC) [Entitic mass] 31.5 pg Normal 27-34 [facility] Comment on above: Performed By: #### Tamara PARKS CMP, 5643-2 #### [facility] ([id number]) [address] [place] [address] 65686 MCHC (RBC) [Mass/Vol] 34.4 g/dL Normal 32-36 [facility] Comment on above: Performed By: #### Tamara PARKS CMP, 5643-2 #### [facility] ([id number]) [address] [place] [address] 24836 MCV (RBC) [Entitic vol] 92 fL Normal 80-100 [facility] Comment on above: Performed By: #### Tamara PARKS CMP, 5643-2 #### [facility] ([id number]) [address] [place] [address] 99101 Monocytes (Bld) [#/Vol] 0.4 10*3/uL Normal 0-0.9 [facility] Comment on above: Performed By: #### Tamara PARKS CMP, 5643-2 #### [facility] ([id number]) [address] [place] [address] 43703 Monocytes/100 WBC (Bld) 6.3 % Normal [facility] Comment on above: Performed By: #### Tamara PARKS CMP, 5643-2 #### [facility] ([id number]) [address] [place] [address] 06478 Neutrophils/100 WBC (Bld) 43.4 % Normal [facility] Comment on above: Performed By: #### Tamara PARKS CMP, 5643-2 #### [facility] ([id number]) [address] [place] [address] 34175 Platelet mean volume (Bld) [Entitic vol] 7.7 fL Normal 7-12 [facility] Comment on above: Performed By: #### Tamara PARKS, CMP, 5643-2 #### [facility] ([id number]) [address] [place] [address] 36823 Platelets (Bld) [#/Vol] 292 10*3/uL Normal 150-450 [facility] Comment on above: Performed By: #### Tamara PARKS CMP, 5643-2 #### [facility] ([id number]) [address] [place] [address] 66000 RBC COUNT 4.78 X10E12/L Normal 4.10-5.70 [facility] Comment on above: Performed By: #### Tamara PARKS CMP, 5643-2 #### [facility] ([id number]) [address] [place] [address] 46648 WBC (Bld) [#/Vol] 6.8 10*3/uL Normal 4.0-11.0 [facility] Comment on above: Performed By: #### Tamara PARKS CMP, 5643-2 #### [facility] ([id number]) [address] [place] [address] 23876 COMPREHENSIVE METABOLIC PANE [facility] 04-09-2024 Albumin [Mass/Vol] 4.6 g/dL Normal 3.2-5.3 [facility] Comment on above: Performed By: #### Tamara PARKS CMP, 5643-2 #### [facility] ([id number]) [address] [place] [address] 48573 ALP [Catalytic activity/Vol] 57 U/L Normal 39-130 [facility] Comment on above: Performed By: #### Tamara PARKS CMP, 5643-2 #### [facility] ([id number]) [address] [place] [address] 51553 ALT [Catalytic activity/Vol] 42 U/L High 0-40 [facility] Comment on above: Performed By: #### Tamara PARKS CMP, 5643-2 #### [facility] ([id number]) [address] [place] [address] 75462 Anion gap [Moles/Vol] 8 mmol/L Normal 5-15 [facility] Comment on above: Performed By: #### C LYDIA PARKS, 5643-2 #### [facility] ([id number]) [address] [place] [address] 86171 AST [Catalytic activity/Vol] 44 U/L High 0-41 [facility] Comment on above: Performed By: #### C LYDIA PARKS, 5643-2 #### [facility] ([id number]) [address] [place] [address] 33739 Bilirubin [Mass/Vol] 0.2 mg/dL Low 0.3-1.2 [facility] Comment on above: Performed By: #### C LYDIA PARKS, 5643-2 #### [facility] ([id number]) [address] [place] [address] 07172 Calcium [Mass/Vol] 8.3 mg/dL Low 8.5-10.5 [facility] Comment on above: Performed By: #### C LYDIA PARKS, 5643-2 #### [facility] ([id number]) [address] [place] [address] 78743 Chloride [Moles/Vol] 108 mmol/L Normal 98-109 [facility] Comment on above: Performed By: #### C LYDIA PARKS, 5643-2 #### [facility] ([id number]) [address] [place] [address] 83233 CO2 [Moles/Vol] 21 mmol/L Low 22-32 [facility] Comment on above: Performed By: #### C LYDIA PARKS, 5643-2 #### [facility] ([id number]) [address] [place] [address] 02337 Creatinine [Mass/Vol] 1.00 mg/dL Normal 0.70-1.20 [facility] Comment on above: Result Comment: METH OD TRACEABLE TO IDMS STANDARD Performed By: #### C CHARLY CMP, 5643-2 #### [facility] ([id number]) [address] [place] [address] 02940 eGFR (CKD-EPI) NON-RACE DEPENDENT >90 Normal >59 [facility] Comment on above: Result Comment: Reported eGFR is based on the CKD-EPI 2020 equation that does not use a race coefficient. Performed By: #### Tamara PARKS CMP, 5643-2 #### [facility] ([id number]) [address] [place] [address] 05733 Glucose [Mass/Vol] 99 mg/dL Normal 65-99 [facility] Comment on above: Performed By: #### Tamara PARKS CMP, 5643-2 #### [facility] ([id number]) [address] [place] [address] 32981 Potassium [Moles/Vol] 3.6 mmol/L Normal 3.5-5.0 [facility] Comment on above: Performed By: #### Tamara PARKS CMP, 5643-2 #### [facility] ([id number]) [address] [place] [address] 29517 Protein [Mass/Vol] 8.0 g/dL Normal 6.0-8.0 [facility] Comment on above: Performed By: #### Tamara PARKS CMP, 5643-2 #### [facility] ([id number]) [address] [place] [address] 36493 Sodium [Moles/Vol] 137 mmol/L Normal 134-146 [facility] Comment on above: Performed By: #### Tamara PARKS CMP, 5643-2 #### [facility] ([id number]) [address] [place] [address] 24523 Urea nitrogen [Mass/Vol] 15 mg/dL Normal 5-23 [facility] Comment on above: Performed By: #### Tamara PARKS CMP, 5643-2 #### [facility] ([id number]) [address] [facility], [place] [address] CT ABDOMEN AND PELVIS W CONT on 04-09-2024 CT ABDOMEN AND PELVIS W CONT CT ABDOMEN AND PELVIS W CONT History: Blunt abdominal trauma from multiple falls Exam/Technique: Abdomen and pelvis CT imaging is performed with IV contrast. Comparison: 04/09/2023 Findings: (For findings in the lung bases see the separate report on the concurrently performed chest CT.) The liver, spleen, pancreas, adrenal glands, kidneys, and gallbladder display no significant abnormalities. The abdominal aorta is of normal caliber throughout its length. No bowel dilatation or other gross abnormalities of the unopacified bowel loops demonstrated. There is no free intraperitoneal fluid or gas, and no gross abnormal fluid collections. There are no gross abnormalities of the unopacified urinary bladder suggested. There is no evidence of recent fractures on bone windows from this study. IMPRESSION: * No acute abnormalities demonstrated. All CT scans at this facility use dose modulation, iterative reconstruction, and/or weight based dosing when appropriate to reduce radiation dose to as low as reasonably achievable. Finalized by Vishnu Tidwell MD on 04/09/2024 3:[address] [facility] CT BRAIN WO CONTon CT BRAIN WO CONT CT BRAIN WO CONT History: Multiple falls with head trauma NONCONTRAST HEAD CT Comparison: 10/30/2018 Findings: There is no evidence of recent hemorrhage or other acute intracranial abnormalities. No other focal intracranial findings of any nature are depicted. Ventricles and CSF spaces are bilaterally symmetric and within normal limits. Perea-white matter differentiation is normal throughout. No abnormalities are displayed on bone windows. IMPRESSION: Normal noncontrast head CT. All CT scans at this facility use dose modulation, iterative reconstruction, and/or weight based dosing when appropriate to reduce radiation dose to as low as reasonably achievable. Finalized by Vishnu Tidwell MD on 04/09/2024 2:[address] [facility] CT CERVICAL SPINE WO CONTon 04-09-2024 CT CERVICAL SPINE WO CONT CT CERVICAL SPINE WO CONT History: Multiple falls Exam/Technique: Noncontrast CT imaging of the cervical spine with multiplanar reconstructions. Comparison: Noncontrast CT of the cervical spine from 10/30/2018 Findings: There is no evidence of recent fracture or traumatic malalignment. AP alignment of cervical vertebrae is normal throughout. No other focal bony abnormalities are demonstrated. There is no gross stenosis of the cervical spinal canal of any etiology at any level. No prevertebral soft tissue swelling, or other gross abnormalities are depicted in the paraspinal soft tissues on these noncontrast images. IMPRESSION: Normal noncontrast CT of the cervical spine. All CT scans at this facility use dose modulation, iterative reconstruction, and/or weight based dosing when appropriate to reduce radiation dose to as low as reasonably achievable. Finalized by Vishnu Tidwell MD on 04/09/2024 2:[address] [facility] CT CHEST W CONTon 04-09-2024 CT CHEST W CONT CT CHEST W CONT CT CHEST W CONT 04/09/2024 2:34 AM INDICATION: Chest trauma, blunt, alcohol intoxication, pain COMPARISON: CTA chest 05/04/2023 TECHNIQUE: CT chest was performed after administration of IV contrast. Automated exposure control was utilized. All CT scans at this facility use dose modulation, iterative reconstruction, and/or weight based dosing when appropriate to reduce radiation dose to as low as reasonably achievable. Respiratory motion compromises the multiplanar reconstructions in the upper chest. FINDINGS: Lower Neck: No thyromegaly. Cardiovascular: Nonaneurysmal thoracic aorta with three vessel branching. Nonenlarged main pulmonary artery. No cardiomegaly or pericardial effusion. No coronary artery calcifications. Mediastinum: No mediastinal mass. Lymph Nodes: No thoracic lymphadenopathy. Respiratory: Widely patent central airway. No pneumothorax or pleural effusion. Similar to previous left upper lobe consolidations, likely chronic changes from aspiration.. Air trapping secondary to expiratory breathing. No suspicious pulmonary nodules. Chest Wall: No soft tissue masses. Upper Abdomen: Please refer to concurrently performed and dictated CT abdomen and pelvis for relevant findings. Skeletal: No aggressive osseous lesions. No evidence of recent fractures on bone windows from this study. IMPRESSION: * Similar to the previous left upper lobe chronic consolidations. * No acute thoracic process. Approved by Resident: Víctor Salinas MD on 04/09/2024 3:07 AM I, Vishnu Tidwell MD have personally reviewed the image(s) and agree with and/or edited the report Finalized by Vishnu iTdwell MD on 04/09/2024 3:[address] [facility] CT LUMBAR RECONSTRUCTIONon 0 04-09-[address] LUMBAR RECONSTRUCTION History: Audible falls. Traumatic lumbar plexopathy Exam/Technique: Contrast-enhanced images of the complete lumbar spine with sagittal and coronal reconstructions, all reconstructed from the contrast-enhanced CT of the abdomen and pelvis. Comparison: Lumbar spine CT from 07/29/2019 Findings: AP alignment of lumbar vertebrae appears normal throughout. Minor anterior spurring is unchanged at the L3-L4 level. No other focal bony abnormalities are displayed and normal disc space height is maintained at all levels. On these images no discrete disc herniations are defined. There is no significant stenosis of the lumbar spinal canal of any etiology suggested at any level. IMPRESSION: Negative CT of the lumbar spine. All CT scans at this facility use dose modulation, iterative reconstruction, and/or weight based dosing when appropriate to reduce radiation dose to as low as reasonably achievable. Finalized by Vishnu Tidwell MD on 04/09/2024 3:[address] [facility] CT THORACIC RECONSTRUCTIONon 04-09-[address] THORACIC RECONSTRUCTION CT THORACIC RECONSTRUCTION 04/09/2024 2:39 AM INDICATION: Back trauma, no prior imaging (Age >= 16y), alcohol intoxication, pain COMPARISON: None. TECHNIQUE: Multi detector CT axial slices of the thoracic spine with coronal and sagittal reconstructions provided. All reconstructed from the contrast-enhanced chest CT. CT was performed with one or more of the following dose reduction techniques: Automated exposure control, adjustment of the mA and/or kV according to patient size, or use of iterative reconstruction technique. FINDINGS: Alignment: No malalignment. No spondylolisthesis. Osseous: No acute fracture. Vertebral body heights are preserved. Joints: No intervertebral disc space narrowing. No facet arthropathy. Spinal Canal/Foramina: No severe bony spinal canal or neural foraminal narrowing. Soft Tissues: No soft tissue mass. Respiratory: No focal airspace opacity in the visualized lungs. IMPRESSION: * No acute fracture or malalignment. Approved by Resident: Víctor Salinas MD on 04/09/2024 3:15 AM IVishnu MD have personally reviewed the image(s) and agree with and/or edited the report Finalized by Vishnu Tidwell MD on 04/09/2024 3:[address] [facility] Ethanol [Mass/Vol]on 024 ETHANOL 0.34 g/dL High 0.00-0.08 [facility] Comment on above: Result Comment: This report is intended for use in clinical monitoring or management of patients. Performed By: #### C CHARLY, [facility], 5643-2 #### [facility] ([id number]) [address] [place] [address] 11931 BASIC METABOLIC PANLon 03-03 Anion gap [Moles/Vol] 10 mmol/L Normal 5-15 [facility] Comment on above: Performed By: #### C BCA BMP, 66373-6, 07119-3 #### [facility] ([id number]) [address] [place] [address] 17866 Calcium [Mass/Vol] 9.2 mg/dL Normal 8.5-10.5 [facility] Comment on above: Performed By: #### C BCA, BMP, 68779-0, 50242-5 #### [facility] ([id number]) [address] [place] [address] 60297 Chloride [Moles/Vol] 102 mmol/L Normal 98-109 [facility] Comment on above: Performed By: #### C BCA, BMP, 79829-6, 94980-5 #### [facility] ([id number]) [address] [place] [address] 82794 CO2 [Moles/Vol] 23 mmol/L Normal 22-32 [facility] Comment on above: Performed By: #### C BCA, BMP, 37166-5, 76532-0 #### [facility] ([id number]) [address] [place] [address] 76664 Creatinine [Mass/Vol] 0.79 mg/dL Normal 0.70-1.20 [facility] Comment on above: Result Comment: METH OD TRACEABLE TO IDMS STANDARD Performed By: #### C CECY PARKS, 43657-9, 07032-4 #### [facility] ([id number]) [address] [place] [address] 16698 eGFR (CKD-EPI) NON-RACE DEPENDENT >90 Normal >59 [facility] Comment on above: Result Comment: Reported eGFR is based on the CKD-EPI 1 equation that does not use a race coefficient. Performed By: #### C CECY PARKS, 69327-3, 02013-6 #### [facility] ([id number]) [address] [place] [address] 19607 Glucose [Mass/Vol] 109 mg/dL High 65-99 [facility] Comment on above: Performed By: #### C CHARLY, BMP, 59707-2, 78663-3 #### [facility] ([id number]) [address] [place] [address] 70653 Potassium [Moles/Vol] 4.5 mmol/L Normal 3.5-5.0 [facility] Comment on above: Performed By: #### C CHARLY, BMP, 31269-3, 35578-3 #### [facility] ([id number]) [address] [place] [address] 19094 Sodium [Moles/Vol] 135 mmol/L Normal 134-146 [facility] Comment on above: Performed By: #### C CHALRY, BMP, 52275-0, 18718-6 #### [facility] ([id number]) [address] [place] [address] 25386 Urea nitrogen [Mass/Vol] 15 mg/dL Normal 5-23 [facility] Comment on above: Performed By: #### C CHARLY, BMP, 72311-9, 46435-4 #### [facility] ([id number]) [address] [place] [address] 78521 CBC AND AUTO DIFFon 05-24-20 24 ABSOLUTE BASOPHIL 0.0 X10E9/L Normal 0.0-0.2 [facility] Comment on above: Performed By: #### C CECY PARKS, 80229-5, 17963-8 #### [facility] ([id number]) [address] [place] [address] 66593 ABSOLUTE NEUTROPHIL 6.9 X10E9/L High 1.5-6.6 [facility] Comment on above: Performed By: #### C CHARLY, BMP, 66233-1, 01571-9 #### [facility] ([id number]) [address] [place] [address] 06008 Basophils/100 WBC (Bld) 0.4 % Normal [facility] Comment on above: Performed By: #### Tamara PARKS, [facility] [place], 34025-2, 69061-0 #### [facility] ([id number]) [address] [place] [address] 01791 Eosinophils (Bld) [#/Vol] 0.2 10*3/uL Normal 0.0-0.4 [facility] Comment on above: Performed By: #### Tamara PARKS, CECY, 87315-3, 50861-2 #### [facility] ([id number]) [address] [place] [address] 34545 Eosinophils/100 WBC (Bld) 2.2 % Normal [facility] Comment on above: Performed By: #### C CHARLY, BMP, 09234-7, 95756-8 #### [facility] ([id number]) [address] [place] [address] 62560 Erythrocyte distribution width (RBC) [Ratio] 13.4 % Normal 11.5-15.0 [facility] Comment on above: Performed By: #### C CHARLY, BMP, 60387-2, 05239-9 #### [facility] ([id number]) [address] [place] [address] 10911 Hematocrit (Bld) [Volume fraction] 47.2 % Normal 39-49 [facility] Comment on above: Performed By: #### C CHARLY, [facility] [place], 50473-8, 18108-2 #### [facility] ([id number]) [address] [place] [address] 64833 Hemoglobin (Bld) [Mass/Vol] 16.2 g/dL Normal 13.0-17.0 [facility] Comment on above: Performed By: #### C CHARLY, [facility] [place], 14845-1, 57748-9 #### [facility] ([id number]) [address] [place] [address] 21500 Lymphocytes (Bld) [#/Vol] 1.1 10*3/uL Normal 1.0-3.5 [facility] Comment on above: Performed By: #### C CHARLY, [facility] [place], 83737-4, 75373-8 #### [facility] ([id number]) [address] [place] [address] 18448 Lymphocytes/100 WBC (Bld) 13.0 % Normal [facility] Comment on above: Performed By: #### C CHARLY, [facility] [place], 99109-3, 90321-3 #### [facility] ([id number]) [address] [place] [address] 18071 MCH (RBC) [Entitic mass] 30.9 pg Normal 27-34 [facility] Comment on above: Performed By: #### C CHARLY, [facility] [place], 34351-0, 21881-4 #### [facility] ([id number]) [address] [place] [address] 53264 MCHC (RBC) [Mass/Vol] 34.2 g/dL Normal 32-36 [facility] Comment on above: Performed By: #### C CECY PARKS, 19781-1, 58989-9 #### [facility] ([id number]) [address] [place] [address] 95755 MCV (RBC) [Entitic vol] 90 fL Normal 80-100 [facility] Comment on above: Performed By: #### Tamara PARKS, CECY, 01775-2, 28804-9 #### [facility] ([id number]) [address] [place] [address] 53598 Monocytes (Bld) [#/Vol] 0.2 10*3/uL Normal 0-0.9 [facility] Comment on above: Performed By: #### Tamara PARKS, CECY, 88808-5, 61737-6 #### [facility] ([id number]) [address] [place] [address] 39624 Monocytes/100 WBC (Bld) 2.3 % Normal [facility] Comment on above: Performed By: #### Tamara PARKS, [facility] [place], 10880-5, 11280-2 #### [facility] ([id number]) [address] [place] [address] 59285 Neutrophils/100 WBC (Bld) 82.1 % Normal [facility] Comment on above: Performed By: #### Tamara PARKS, CECY, 67362-1, 44648-7 #### [facility] ([id number]) [address] [place] [address] 79450 Platelet mean volume (Bld) [Entitic vol] 8.0 fL Normal 7-12 [facility] Comment on above: Performed By: #### Tamara PARKS, BMP, 25158-5, 70197-7 #### [facility] ([id number]) [address] [place] [address] 58642 Platelets (Bld) [#/Vol] 329 10*3/uL Normal 150-450 [facility] Comment on above: Performed By: #### C CHARLY BMP, 83647-8, 44980-4 #### [facility] ([id number]) [address] [place] [address] 48288 RBC COUNT 5.22 X10E12/L Normal 4.10-5.70 [facility] Comment on above: Performed By: #### C CHARLY, BMP, 60961-6, 31048-1 #### [facility] ([id number]) [address] [place] [address] 65420 WBC (Bld) [#/Vol] 8.4 10*3/uL Normal 4.0-11.0 [facility] Comment on above: Performed By: #### C CHARLY, CECY, 18305-7, 62800-6 #### [facility] ([id number]) [address] [place] [address] 18564 Fibrin D-dimer DDU (PPP) [Ma ss/Vol]on 03-03-2024 D DIMER <150 Normal <255 [facility] Comment on above: Result Comment: Results <255 ng/mL DDU: The presence of a VTE can safely be excluded with a negative D-Dimer result and Wells score. A negative result doesn't exclude the possibility of DIC. The test be repeated along with other diagnostic tests if the patient's symptoms persist or worsen. [email or web address] Performed By: #### C CHARLY, BMP, 62572-9, 44829-1 #### [facility] ([id number]) [address] [place] [address] 97473 Troponin I.cardiac High sens itivity method [Mass/Vol]on 03-03-2024 TROPONIN I, HIGH SENSITIVITY 2 ng/L Normal <21 [facility] Comment on above: Performed By: #### C CHARLY, BMP, 77119-0, 62305-2 #### [facility] ([id number]) [address] [facility], [place] [address] XR CHEST 1 VWon 03-03-2024 XR CHEST 1 VW XR CHEST 1 VW Clinical history: Chest pain following a breathing treatment Views: 1 Comparison: 05/04/2023 Findings/Impression: 1. No acute infiltrate. No volume loss nor consolidation. There is no pleural effusion, pneumothorax, nor volume loss. Heart and mediastinal structures are unremarkable. Pulmonary vasculature stable. 2. No active disease nor significant interval change. Finalized by Octavio Branch MD on 03/03/2024 6:[address] [facility] XR TOE RT GREAT TOE MIN 2 VW Son 12-15-2023 XR TOE RT GREAT TOE MIN 2 VWS XR TOE RT GREAT TOE MIN 2 VWS XR TOE RT GREAT TOE MIN 2 VWS 12/15/2023 4:10 PM INDICATION: pain, infection, r/o osteomylitis, first toe pain COMPARISON: XR toe 11/28/2023 TECHNIQUE: AP oblique, lateral views obtained. FINDINGS: Bones: No acute fracture. Joints: No malalignment or dislocation. Soft tissues: No soft tissue swelling or mass. IMPRESSION: * No acute fracture. * No lytic changes to suggest osteomyelitis. Approved by Resident: Víctor Salinas MD on 12/15/2023 4:25 PM ISaw MD have personally reviewed the image(s) and agree with and/or edited the report Finalized by Saw Lucas MD on 12/15/2023 4:[address] [facility] XR TOE RT GREAT TOE MIN 2 VW Son 11-28-2023 XR TOE RT GREAT TOE MIN 2 VWS XR TOE RT GREAT TOE MIN 2 VWS HISTORY: infection and pain. COMPARISON: 05/12/2023. TECHNIQUE: AP, lateral and oblique views of the right great toe. FINDINGS: No acute fracture, dislocation, or advanced osteolysis. Stippled radiopacities are seen on the dorsal aspect of the distal phalanx, right great toe. IMPRESSION: * No acute osseous abnormality in the right great toe. * Stippled radiopacities in the dorsal aspect of the right great toe distal phalanx are nonspecific, but may represent soft tissue calcifications/granulation tissue or debris within the nailbed. No lytic changes to suggest osteomyelitis. Approved by Resident Crystal Cox MD on 11/28/2023 10:44 PM I, America Loya MD have personally reviewed the image(s) and agree with and/or edited the report Finalized by America Loya MD on 11/28/2023 10:[address] [facility] COVID-19 PCRon 05-28-2020 SARS-CoV-2, TARIQ Not Detected Normal Not Detected [facility] Comment on above: Result Comment: This test was developed and its performance characteristics determined by [employer]. This test has not been FDA cleared [...] assay. Performed By: #### L ACT #### [facility] [address] [place] [address] Mary Aly AMMONIAon 04-05-2020 Ammonia (P) [Mass/Vol] 26 umol/L Normal 10-30 [facility] Comment on above: Performed By: #### A MM #### [facility] [address] [place] [address] Mary Aly CARDIAC JENNIFER ADMITon 020 CK [Catalytic activity/Vol] 229 U/L Critically high 55-170 [facility] Comment on above: Result Comment: test repeated critical value verified Performed By: #### L ACT #### [facility] [address] [place], [place] [id number] Mary Sheeba CK.MB [Mass/Vol] 1.95 ng/mL Normal <=2.37 [facility] Comment on above: Performed By: #### L ACT #### [facility] [facility] [address] [place] [address] Mary Sheeba INR Coag (Bld) [Relative time] SEE BELOW Normal [facility] Comment on above: Result Comment: <0.0 34 ng/ml NEGATIVE 0.034-0.119 INDETERMINATE 0.120 AMI CUT OFF Performed By: #### L ACT #### [facility] [address] [place] [address] Mary Sheeba PAIGE 88.0 ng/mL Normal <=121.0 [facility] Comment on above: Performed By: #### L ACT #### [facility] [address] [place] [address] Mary Sheeba TROP <0.012 Normal <=0.034 [facility] Comment on above: Performed By: #### L ACT #### [facility] [address] [place], [place] [id number] Amry Sheeba CBC AUTO DIFFon 04-05-2020 Basophils (Bld) [#/Vol] 0.1 103/ul Normal 0.0-0.1 [facility] Comment on above: Performed By: #### C BC #### [facility] [address] [place], [place] [id number] Mary Sheeba Basophils/100 WBC (Bld) 1.1 % Normal 0.2-2.0 [facility] Comment on above: Performed By: #### C BC #### [facility] [address] [place], [place] [id number] Mary Sheeba Eosinophils (Bld) [#/Vol] 0.8 103/ul Critically high 0.0-0.7 [facility] Comment on above: Performed By: #### C BC #### [facility] [address] [place], [place] [id number] Mary Sheeba Eosinophils/100 WBC (Bld) 6.1 % Normal 0.9-7.0 [facility] Comment on above: Performed By: #### C BC #### [facility] [address] [place] [address] Mary Aly Erythrocyte distribution width (RBC) [Ratio] 12.6 % Normal 11.0-15.0 [facility] Comment on above: Performed By: #### C BC #### [facility] [address] [place] [address] Mary Aly Hematocrit (Bld) [Volume fraction] 45.1 % Normal 42.0-54.0 [facility] Comment on above: Performed By: #### C BC #### [facility] [address] [place] [address] Mary Sheeba Hemoglobin (Bld) [Mass/Vol] 15.6 g/dL Normal 14.0-18.0 [facility] Comment on above: Performed By: #### C BC #### [facility] [address] [place] [address] Maryjong Aly IG # 0.07 10e3/ul Critically high 0.00-0.03 [facility] Comment on above: Performed By: #### C BC #### [facility] [address] [place] [address] Mary Aly IG % 0.6 % Critically high 0.0-0.5 [facility] Comment on above: Performed By: #### C BC #### [facility] [address] [place] [address] Mary Sheeba Lymphocytes (Bld) [#/Vol] 4.7 103/ul Critically high 1.2-3.8 [facility] Comment on above: Performed By: #### C BC #### [facility] [address] [place], [place] [id number] Mary Aly Lymphocytes/100 WBC (Bld) 38.2 % Normal 20.5-60.0 [facility] Comment on above: Performed By: #### C BC #### [facility] [address] [place] [address] Mary Aly MANUAL DIFF REQ NO Normal [facility] Comment on above: Performed By: #### C BC #### [facility] [address] [place], [place] [address] Maryjong Varelaen MCH (RBC) [Entitic mass] 31.8 pg Normal 25.9-34.0 [facility] Comment on above: Performed By: #### C BC #### [facility] [address] [place], [place] [address] Maryjong Varelaen MCHC (RBC) [Mass/Vol] 34.6 g/dL Normal 29.9-35.2 [facility] Comment on above: Performed By: #### C BC #### [facility] [address] [place], [place] [address] Mary Sheeba MCV (RBC) [Entitic vol] 92.0 fL Normal 80.0-94.0 [facility] Comment on above: Performed By: #### C BC #### [facility] [address] [place], [place] [address] Mary Sheeba Monocytes (Bld) [#/Vol] 0.8 103/ul Normal 0.3-0.8 [facility] Comment on above: Performed By: #### C BC #### [facility] [address] [place] [address] Mary Sheeba Monocytes/100 WBC (Bld) 6.8 % Normal 1.7-12.0 [facility] Comment on above: Performed By: #### C BC #### [facility] [address] [place] [address] Mary Sheeba Neutrophils (Bld) [#/Vol] 5.8 103/ul Normal 1.4-6.5 [facility] Comment on above: Performed By: #### C BC #### [facility] [address] [place] [address] Mary Sheeba Neutrophils/100 WBC (Bld) 47.2 % Normal 43.0-75.0 [facility] Comment on above: Performed By: #### C BC #### [facility] [address] [place], [place] [address] Mary Sheeba Platelet mean volume (Bld) [Entitic vol] 9.9 fL Normal 9.5-13.5 [facility] Comment on above: Performed By: #### C BC #### [facility] [address] [place], [place] [id number] Mary Aly Platelets (Bld) [#/Vol] 293 103/ul Normal 150-450 [facility] Comment on above: Performed By: #### C BC #### [facility] [address] [place], [place] [id number] Mary Aly RBC (Bld) [#/Vol] 4.90 106/ul Normal 4.70-6.10 [facility] Comment on above: Performed By: #### C BC #### [facility] [address] [place], [place] [id number] Mary Aly WBC (Bld) [#/Vol] 12.3 103/ul Critically high 4.0-11.0 [facility] Comment on above: Performed By: #### C BC #### [facility] [address] [place] [address] Mary Aly D-DIMERon 04-05-2020 D-DIMER COMMENTS SEE BELOW Normal [facility] Comment on above: Result Comment: Incr eases [...] hospitalization. Performed By: #### L ACT #### [facility] [address] [place], [place] [id number] Maryjong Aly Fibrin D-dimer FEU IA (Bld) [Mass/Vol] 0.29 ug/mL Normal 0.19-0.50 [facility] Comment on above: Performed By: #### L ACT #### [facility] [address] [place], [place] [id number] Mary Aly DRUG SCREEN RAPID (URINE)on 04-05-2020 AMP Negative Normal NEGATIVE [facility] Comment on above: Performed By: #### L ACT #### [facility] [address] [place] [address] Mary Sheeba BAR Negative Normal NEGATIVE [facility] Comment on above: Performed By: #### L ACT #### [facility] [address] [place] [address] Mary Sheeba BUP Negative Normal NEGATIVE [facility] Comment on above: Performed By: #### L ACT #### [facility] [address] [place] [address] Mary Sheeba BZO Negative Normal NEGATIVE [facility] Comment on above: Performed By: #### L ACT #### [facility] [address] [place] [address] Mary Sheeba ADAMARIS Negative Normal NEGATIVE [facility] Comment on above: Performed By: #### L ACT #### [facility] [address] [place] [address] CUT-OFFS SEE BELOW Normal [facility] Comment on above: Result Comment: AMP [...] ng/mL Performed By: #### L ACT #### [facility] [address] [place] [address] DRUG CUT HEADER DRUG CLASS TEST SYST EM CUT-OFF CONCENTRATIONS ARE FOLLOWS: Normal [facility] Comment on above: Performed By: #### L ACT #### [facility] [address] [place] [address] Mary Sheeba mAMP Negative Normal NEGATIVE [facility] Comment on above: Performed By: #### L ACT #### [facility] [address] [place] [address] Mary Sheeba MTD Negative Normal NEGATIVE [facility] Comment on above: Performed By: #### L ACT #### [facility] [address] [place] [address] Mary Sheeba OPI Negative Normal NEGATIVE [facility] Comment on above: Performed By: #### L ACT #### [facility] [address] [place] [address] Mary Sheeba OXY Negative Normal NEGATIVE [facility] Comment on above: Performed By: #### L ACT #### [facility] [address] [place] [address] Mary Sheeba PCP Negative Normal NEGATIVE [facility] Comment on above: Performed By: #### L ACT #### [facility] [address] [place] [address] Mary Sheeba PPX Negative Normal NEGATIVE [facility] Comment on above: Performed By: #### L ACT #### [facility] [address] [place] [address] Mary Sheeba TCA Negative Normal NEGATIVE [facility] Comment on above: Performed By: #### L ACT #### [facility] [address] [place] [address] Mary Sheeba THC Negative Normal NEGATIVE [facility] Comment on above: Performed By: #### L ACT #### [facility] [address] [place] [address] Mary Sheeba ETHANOL (BLD ALC)on 04-05-20 20 Ethanol [Mass/Vol] NOTE: 80 mg/dl is th e legal limit for a blood alcohol level Normal [facility] Comment on above: Performed By: #### E TH #### [facility] [address] [place] [address] Mary Sheeba Ethanol [Mass/Vol] 242 mg/dL Normal [facility] Comment on above: Performed By: #### E TH #### [facility] [address] [place] [address] Mary Sheeba PROF 14(COMP METB)on 06-26-2 020 Albumin [Mass/Vol] 4.0 g/dL Normal 3.5-5.0 [facility] Comment on above: Performed By: #### L ACT #### [facility] [address] [place], [place] [id number] Mary Sheeba Albumin/Globulin [Mass ratio] 1.1 {ratio} Normal [facility] Comment on above: Performed By: #### L ACT #### [facility] [address] [place] [address] Mary Sheeba ALP [Catalytic activity/Vol] 74 U/L Normal 38-126 [facility] Comment on above: Performed By: #### L ACT #### [facility] [address] [place] [address] Mary Sheeba ALT [Catalytic activity/Vol] 37 U/L Normal 21-72 [facility] Comment on above: Performed By: #### L ACT #### [facility] [address] [place] [address] Mary Sheeba Anion gap [Moles/Vol] 19.2 mmol/L Normal [facility] Comment on above: Performed By: #### L ACT #### [facility] [address] [place] [address] Mary Sheeba AST [Catalytic activity/Vol] 31 U/L Normal 17-59 [facility] Comment on above: Performed By: #### L ACT #### [facility] [address] [place] [address] Mary Sheeba Bilirubin Ql (U) 0.3 mg/dL Normal 0.2-1.3 [facility] Comment on above: Performed By: #### L ACT #### [facility] [address] [place] [address] Mary Sheeba Calcium [Mass/Vol] 8.6 mg/dL Normal 8.4-10.2 [facility] Comment on above: Performed By: #### L ACT #### [facility] [address] [place], [place] [address] Mary Sheeba Chloride [Moles/Vol] 105 mmol/L Normal 98-107 [facility] Comment on above: Performed By: #### L ACT #### [facility] [address] [place] [address] Mary Sheeba CO2 [Moles/Vol] 22.5 mmol/L Normal 22.0-30.0 [facility] Comment on above: Performed By: #### L ACT #### [facility] [address] [place] [id number] Mary Sheeba Creatinine [Mass/Vol] 0.79 mg/dL Normal 0.66-1.25 [facility] Comment on above: Performed By: #### L ACT #### [facility] [address] [place] [address] Mary Sheeba EGFR-AF FINNISH >60 Normal >=60 [facility] Comment on above: Performed By: #### L ACT #### [facility] [address] [place] [address] Mary Sheeba EGFR-NON AF FINNISH >60 Normal >=60 [facility] Comment on above: Performed By: #### L ACT #### [facility] [address] [place] [address] Mary Sheeba Globulin (S) [Mass/Vol] 3.8 g/dL Normal [facility] Comment on above: Performed By: #### L ACT #### [facility] [address] [place] [address] Mary Sheeba Glucose [Mass/Vol] 103 mg/dL Normal 74-106 [facility] Comment on above: Performed By: #### L ACT #### [facility] [address] [place] [address] Mary Sheeba Potassium [Moles/Vol] 3.7 mmol/L Normal 3.4-5.0 [facility] Comment on above: Result Comment: slig htly hemolyzed Performed By: #### L ACT #### [facility] [address] [place], [place] [address] Mary Sheeba Protein [Mass/Vol] 7.8 g/dL Normal 6.1-8.2 [facility] Comment on above: Performed By: #### L ACT #### [facility] [address] [place] [address] Mary Sheeba Sodium [Moles/Vol] 143 mmol/L Normal 137-145 [facility] Comment on above: Performed By: #### L ACT #### [facility] [address] [place], [place] [address] Mary Aly Urea nitrogen [Mass/Vol] 6.0 mg/dL Critically low 9.0-20.0 [facility] Comment on above: Performed By: #### L ACT #### [facility] [address] [place], [place] [address] Mary Aly Urea nitrogen/Creatinin e [Mass ratio] 7.6 mg/mg Normal [facility] Comment on above: Performed By: #### L ACT #### [facility] [address] [place] [id number] Mary Aly XR CHEST 1 Von 04-05-2020 XR CHEST [...] by: KELLY THOMAS Date: 2020-04-05 21:34 Normal [facility] CT ABD/PELV W CONon 03-25-[address] [...] JUSTIN ALEMAN Date: 2020-03-24 23:05 Normal [facility] AMYLASEon 03-24-2020 Amylase [Catalytic activity/Vol] 37 U/L Normal 31-110 [facility] Comment on above: Performed By: #### C MP, DARIAN, LIPA #### [facility] [address] [place] [address] Mary Sheeba CBC AUTO DIFFon 03-24-2020 Basophils (Bld) [#/Vol] 0.1 103/ul Normal 0.0-0.1 [facility] Comment on above: Performed By: #### C BC #### [facility] [address] [place], [place] [address] Mary Sheeba Basophils/100 WBC (Bld) 0.6 % Normal 0.2-2.0 [facility] Comment on above: Performed By: #### C BC #### [facility] [address] [place] [address] Mary Sheeba Eosinophils (Bld) [#/Vol] 0.4 103/ul Normal 0.0-0.7 [facility] Comment on above: Performed By: #### C BC #### [facility] [address] [place] [address] Mary Sheeba Eosinophils/100 WBC (Bld) 3.1 % Normal 0.9-7.0 [facility] Comment on above: Performed By: #### C BC #### [facility] [address] [place] [address] Mary Sheeba Erythrocyte distribution width (RBC) [Ratio] 12.7 % Normal 11.0-15.0 [facility] Comment on above: Performed By: #### C BC #### [facility] [address] [place], [place] [address] Mary Sheeba Hematocrit (Bld) [Volume fraction] 47.5 % Normal 42.0-54.0 [facility] Comment on above: Performed By: #### C BC #### [facility] [address] [place], [place] [address] Mary Aly Hemoglobin (Bld) [Mass/Vol] 16.2 g/dL Normal 14.0-18.0 [facility] Comment on above: Performed By: #### C BC #### [facility] [address] [place] [address] Maryjong Aly IG # 0.06 10e3/ul Critically high 0.00-0.03 [facility] Comment on above: Performed By: #### C BC #### [facility] [address] [place] [address] Mary Aly IG % 0.5 % Normal 0.0-0.5 [facility] Comment on above: Performed By: #### C BC #### [facility] [address] [place] [address] Mary Aly Lymphocytes (Bld) [#/Vol] 2.2 103/ul Normal 1.2-3.8 [facility] Comment on above: Performed By: #### C BC #### [facility] [address] [place] [address] Mary Aly Lymphocytes/100 WBC (Bld) 17.1 % Critically low 20.5-60.0 [facility] Comment on above: Performed By: #### C BC #### [facility] [address] [place], [place] [address] Mary Aly MANUAL DIFF REQ NO Normal [facility] Comment on above: Performed By: #### C BC #### [facility] [address] [place], [place] [address] Mary Aly MCH (RBC) [Entitic mass] 31.9 pg Normal 25.9-34.0 [facility] Comment on above: Performed By: #### C BC #### [facility] [address] [place], [place] [address] Mary Aly MCHC (RBC) [Mass/Vol] 34.1 g/dL Normal 29.9-35.2 [facility] Comment on above: Performed By: #### C BC #### [facility] [address] [place], [place] [address] Mary Sheeba MCV (RBC) [Entitic vol] 93.5 fL Normal 80.0-94.0 [facility] Comment on above: Performed By: #### C BC #### [facility] [address] [place], [place] [address] Mary Sheeba Monocytes (Bld) [#/Vol] 0.9 103/ul Critically high 0.3-0.8 [facility] Comment on above: Performed By: #### C BC #### [facility] [address] [place], [place] [address] Mary Sheeba Monocytes/100 WBC (Bld) 6.5 % Normal 1.7-12.0 [facility] Comment on above: Performed By: #### C BC #### [facility] [address] [place], [place] [address] Mary Sheeba Neutrophils (Bld) [#/Vol] 9.5 103/ul Critically high 1.4-6.5 [facility] Comment on above: Performed By: #### C BC #### [facility] [address] [place], [place] [address] Mary Sheeba Neutrophils/100 WBC (Bld) 72.2 % Normal 43.0-75.0 [facility] Comment on above: Performed By: #### C BC #### [facility] [address] [place], [place] [address] Mary Sheeba Platelet mean volume (Bld) [Entitic vol] 10.5 fL Normal 9.5-13.5 [facility] Comment on above: Performed By: #### C BC #### [facility] [address] [place], [place] [address] Mary Sheeba Platelets (Bld) [#/Vol] 271 103/ul Normal 150-450 [facility] Comment on above: Performed By: #### C BC #### [facility] [address] [place], [place] [address] Mary Sheeba RBC (Bld) [#/Vol] 5.08 106/ul Normal 4.70-6.10 [facility] Comment on above: Performed By: #### C BC #### [facility] [address] [place], [place] [address] Mary Aly WBC (Bld) [#/Vol] 13.1 103/ul Critically high 4.0-11.0 [facility] Comment on above: Performed By: #### C BC #### [facility] [address] [place] [address] Mary Ayl LACTATE/LACTIC ACIDon 2019 Lactate [Moles/Vol] 0.8 mmol/L Normal 0.7-2.0 [facility] Comment on above: Performed By: #### L ACT #### [facility] [address] [place] [address] Mary Aly LIPASEon 03-24-2020 Lipase [Catalytic activity/Vol] 123.0 U/L Normal 23.0-300.0 [facility] Comment on above: Performed By: #### C MP DARIAN, LIPA #### [facility] [address] [place], [place] [address] Mary Aly PROF 14(COMP METB)on 020 Albumin [Mass/Vol] 4.5 g/dL Normal 3.5-5.0 [facility] Comment on above: Performed By: #### C MP, DARIAN, LIPA #### [facility] [address] [place], [place] [address] Mary Sheeba Albumin/Globulin [Mass ratio] 1.2 {ratio} Normal [facility] Comment on above: Performed By: #### C MP, DARIAN, LIPA #### [facility] [address] [place], [place] [address] Mary Sheeba ALP [Catalytic activity/Vol] 69 U/L Normal 38-126 [facility] Comment on above: Performed By: #### C MP, DARIAN, LIPA #### [facility] [address] [place] [address] Mary Sheeba ALT [Catalytic activity/Vol] 27 U/L Normal 21-72 [facility] Comment on above: Performed By: #### C DARIAN MENDOZA, LIPA #### [facility] [address] [place] [address] Mary Sheeba Anion gap [Moles/Vol] 13.0 mmol/L Normal [facility] Comment on above: Performed By: #### C REJI DARIAN, LIPA #### [facility] [address] [place] [address] Mary Sheeba AST [Catalytic activity/Vol] 19 U/L Normal 17-59 [facility] Comment on above: Performed By: #### C REJI DARIAN, LIPA #### [facility] [address] [place] [address] Mary Sheeba Bilirubin Ql (U) 0.4 mg/dL Normal 0.2-1.3 [facility] Comment on above: Performed By: #### C REJI DARIAN, LIPA #### [facility] [address] [place] [address] Mary Sheeba Calcium [Mass/Vol] 10.0 mg/dL Normal 8.4-10.2 [facility] Comment on above: Performed By: #### C REJI DARIAN, LIPA #### [facility] [address] [place] [address] Mary Sheeba Chloride [Moles/Vol] 100 mmol/L Normal 98-107 [facility] Comment on above: Performed By: #### C REJI DARIAN, LIPA #### [facility] [address] [place] [address] Mary Sheeba CO2 [Moles/Vol] 27.7 mmol/L Normal 22.0-30.0 [facility] Comment on above: Performed By: #### C REJI DARIAN, LIPA #### [facility] [address] [place] [address] Mary Sheeba Creatinine [Mass/Vol] 0.70 mg/dL Normal 0.66-1.25 [facility] Comment on above: Performed By: #### C REJI DARIAN, LIPA #### [facility] [address] [place] [address] Mary Sheeba EGFR-AF FINNISH >60 Normal >=60 [facility] Comment on above: Performed By: #### C DARIAN MENDOZA, LIPA #### [facility] [address] [place] [address] Mary Sheeba EGFR-NON AF FINNISH >60 Normal >=60 [facility] Comment on above: Performed By: #### C MP DARIAN, LIPA #### [facility] [address] [place] [address] Mary Sheeba Globulin (S) [Mass/Vol] 3.8 g/dL Normal [facility] Comment on above: Performed By: #### C REJI DARIAN, LIPA #### [facility] [address] [place] [address] Mary Sheeba Glucose [Mass/Vol] 103 mg/dL Normal 74-106 [facility] Comment on above: Performed By: #### C REJI DARIAN, LIPA #### [facility] [address] [place] [address] Mary Sheeba Potassium [Moles/Vol] 3.7 mmol/L Normal 3.4-5.0 [facility] Comment on above: Performed By: #### C REJI DARIAN, LIPA #### [facility] [address] [place] [address] Mary Sheeba Protein [Mass/Vol] 8.3 g/dL Critically high 6.1-8.2 [facility] Comment on above: Performed By: #### C REJI DARIAN, LIPA #### [facility] [address] [place] [address] Mary Sheeba Sodium [Moles/Vol] 137 mmol/L Normal 137-145 [facility] Comment on above: Performed By: #### C REJI DARIAN, LIPA #### [facility] [address] [place] [address] Mary Sheeba Urea nitrogen [Mass/Vol] 13.0 mg/dL Normal 9.0-20.0 [facility] Comment on above: Performed By: #### C REJI DARIAN, LIPA #### [facility] [address] [place] [address] Mary Sheeba Urea nitrogen/Creatinin e [Mass ratio] 18.6 mg/mg Normal [facility] Comment on above: Performed By: #### C DARIAN MENDOZA LIPA #### [facility] [address] [place] [id number] Mary Aly XR ABD FLAT UP_PA Abiola [...] by: LISA NUNN Date: 2020-03-24 21:01 Normal [facility] Coding Summary.on 11-12-2017 Coding Summary. CODING DATE: [address] [facility] STATUS: Home (Routine DC) PAYOR: Medicaid EAPG [...] Blanc Date Saved: 11/12/2017 08:29 am Normal [facility] Coding Summary.on 10-29-2017 Coding Summary. CODING DATE: [facility] STATUS: Home (Routine DC) PAYOR: [...] Blanc Date Saved: 10/29/2017 07:50 am Normal [facility] Coding Summary.on 10-19-2017 Coding Summary. CODING DATE: [facility] STATUS: Home w/ Home Health PAYOR: Medicaid Grouper: [id number] MS-DRG SEPTICEMIA OR SEVERE SEPSIS W/O MV >96 HOURS W/O SENIOR CARE Low Trim 0 High Trim 999 720 [...] dependence, cigarettes, uncomplicated PROCEDURES DOCTOR NAME DATE [id number] Drainage of Lower Back, Jose M Kumar MD 10/08/2017 Approach NOTE: The code number assigned matches the documented diagnosis and / or procedure in the patient's chart. However, the narrative phrase printed from the coding software may appear abbreviated, or result in slightly different terminology. Coded By: Toña Espinosa Date Saved: 10/19/2017 02:22 pm [facility] Discharge Summaryon 10-16-19 18 Discharge Summary Patient: Alexx WILKES Age: 27 years Sex: Male : 1990 Associated Diagnoses: None Author: Sushant DC, [facility] Information Discharge Summary Information: Admit Date/Time: [...] serum enzymes Prescription and Home Meds: acetaminophen-hydrocodone (Bacova 325 mg-5 mg oral tablet) See Instructions, [...] 07:00) 105 (OCT 15 19:30) 125 (OCT 16:49)DBP 64 (OCT 16 07:00) L 54 (OCT 15 12:11) 75 (OCT 16 01:49)MAP 91 (OCT 16 01:49) 72 (OCT 15 12:11) 91 (OCT 16 01:49)SpO2 98 (OCT 16 07:00) 96 (OCT 15 [...] fluid. Mild paralumbar tenderness.. Integumentary: Warm, Dry, Blain. Neurologic: Alert, Oriented. Psychiatric: Cooperative, Appropriate mood & affect. Hospital Course 27-year-old male with no significant past medical history presented with complaints of left flank and left lower back pain of about 2-3 weeks duration associated with fever, chills and nausea. He was subsequently admitted to [facility] with sepsis secondary to left paralumbar MSSA [...] medications, reviewed with patient, called to pharmacy. [facility] Comment on above: Result Comment: Elec tronically Signed By: Sushant DC, Mbanefo\.br\Date and Time Signed: 10/16/17 13:50 EST Inpatient Clinical Summaryon 10-16-2017 Inpatient Clinical Summary [place] [id number] Clinical Summary Person Information:Name: WILLOW WILKES Age: 27 Years : 1990 12:00 AM Sex: Male PCP: Myra Middleton MD Marital Status:Single Race:White Ethnicity:Non- or Language:Dutch Visit Id: Visit Reason:Increased heart rate; Nausea; Dizziness; Pain in back; CELLULITIS, PHLEGMON, TACHYCARDIA Speciality: Acuity: 3 Enc Type: Inpatient Med Service: Medical Arrival:10/05/2017 5:35 PM Discharge: Dispo Type: Admitted as IP to this Hosp Address:[address] [place] [address] [phone] Provider Notes: Diagnosis:Cellulitis of lower back; Elevated [...] Immunizations Documented This Visit Final Med List:acetaminophen-hydrocodone (Bacova 325 mg-5 mg oral tablet) 1 - 2 tab(s) Oral q4hr-Q 6hr x 7days; as needed for pain. Refills: 0.cephalexin (Keflex 500 mg Cap) 1 Capsules By Mouth every 8 hours for 14 Days. Refills: 0.docusate (Colace 100 mg Cap) 1 Capsules By Mouth 2 times a day.Misc Prescription (WORK EXCUSE) 0. May resume work on 1/17/18.. Refills: 0.nicotine (nicotine 14 mg/24 hr Transderm ER Film) 1 Patches Transdermal every day for 14 Days. Refills: 0. Care Team Members:Attending Physician: Luis F Benavides DO AConsulting Physician: Sandor DC, Jose M Camilo; Klarissa Thomason, Julian Delcid Physician: Follow up:With: Address: When: Myra Middleton [address] [place] [address] Business (1) Within 5 to 7 days Comments: Call for followup appointment. No answer With: Address: When: Julian Cyr [address] [place] [address] Business (1) Within 2 weeks Comments: Call for followup appointment. Office computer is down right now. Call Wednesday for appointment With: Address: When: Jose M Patten [address] [facility], [facility] [address] [place] [address] [facility] (1) 10/28/17 09:55:00 Comments: Call for followup appointment With: Address: When: Wound Clinic: [facility] [phone] 10/14/17 08:00:00 Comments: Keep scheduled appointment Patient Education Information: Cellulitis, Amsi-bn-WwfhJwiomx, Bacova 5/325 Tab Normal [facility] Inpatient Patient Summaryon 10-16-2017 Inpatient Patient Summary [address] [address] Patient Discharge Instructions PERSON INFORMATION Name: WILLOW WILKES Date of : 1990 12:00 AM Current Date: 10/16/17 12:14:08 PHYSICIANS Admitting Physician: Luis F Benavides DO [facility] Care Physician: Kane DC, GuillermoiePCP Comment: Discharge Diagnosis: Cellulitis of lower back; [...] up:With: Address: When: Myra Middleton [address] [place] [address] Business (1) Within 5 to 7 days Comments: Call for followup appointment. No answer With: Address: When: Julian Cyr [address] [place] [address] Business (1) Within 2 weeks Comments: Call for followup appointment. Office computer is down right now. Call Wednesday for appointment With: Address: When: Jose M Patten [address], [address] [place] [address] Business (1) 10/28/17 09:55:00 Comments: Call for followup appointment With: Address: When: Wound Clinic: [facility] [phone] 10/14/17 08:00:00 Comments: Keep scheduled appointment In the event that this physician does not participate in your insurance network, please consult with your insurance company to find a nearby participating provider. Comment: ICHUNG RYAN, have received the attached patient education materials/instructions and have verbalized understanding:Patient Signature Date Clinican/Nurse Signature Date HERE ARE THE MEDICATION CHANGES THAT OCCURRED DURING YOUR HOSPITAL STAY [id number], [address] [place] [address], [phone]-hydrocodone (Bacova 325 mg-5 mg oral tablet) 1 - [...] THIS WITH YOU AT ALL TIMES. acetaminophen-hydrocodone (Bacova 325 mg-5 mg oral tablet) 1 - [...] 14 Days. Refills: 0.Pharmacy Information: Other: Danielle BlancastComment: PATIENT EDUCATION INFORMATIONInstructions:Celluli tisCellulitis is an infection [...] 02/11/2015 Document Reviewed: 12/12/2012ExitCare? Patient Information ?2015 [employer]. This information is not intended to replace advice given to you by your health care provider. Make sure you discuss any questions you have with your health care provider. Medication Leaflets:cephalexin (sef a RENUKA in)Daxbia, Keflex What is the most important information I [...] may report side effects to FDA at 2-688-UQX-1092. What other drugs will affect cephalexin?Other drugs may interact with cephalexin, including prescription and dspm-fvy-oucsmom medicines, vitamins, and herbal products. Tell each [...] to ensure that the information provided by [employer]. ('[employer]') is accurate, up-to-date, and complete, but no guarantee is made to that effect. Drug information contained herein may be time sensitive. [employer] information has been compiled for use by healthcare practitioners and consumers in the [place] and therefore [employer] does not warrant that uses outside of the [place] are appropriate, unless specifically indicated otherwise. [employer] drug information does not endorse drugs, diagnose patients or recommend therapy. [employer] drug information is an informational resource designed [...] effective or appropriate for any given patient. [employer] does not assume any responsibility for any aspect of healthcare administered with the aid of information [employer] provides. The information contained herein is not intended to cover all possible uses, directions, precautions, warnings, drug interactions, allergic reactions, or adverse effects. If you have questions about the drugs you are taking, check with your doctor, nurse or pharmacist. Copyright 6580-0197 [employer]. Version: 9.01. Revision Date: 01/26/2017.acetaminophen and hydrocodone (a SEET a MIN oh fen and pete drodemario KOE done)Hycet, Lorcet, Lortab 10/325, Lortab 5/325, Lortab 7.5/325, Lortab Elixir, Bacova, Verdrocet, Vicodin, Xodol, Zamicet What is the [...] may report side effects to FDA at 2-280-QQZ-6040.What other drugs will affect acetaminophen and hydrocodone?Narcotic [...] with acetaminophen and hydrocodone, including prescription and amop-yau-cmjiaia medicines, vitamins, and herbal products. Not all [...] to ensure that the information provided by [employer]. ('[employer]') is accurate, up-to-date, and complete, but no guarantee is made to that effect. Drug information contained herein may be time sensitive. [employer] information has been compiled for use by healthcare practitioners and consumers in the [place] and therefore [employer] does not warrant that uses outside of the [place] are appropriate, unless specifically indicated otherwise. [employer]'s drug information does not endorse drugs, diagnose patients or recommend therapy. [employer] drug information is an informational resource designed [...] effective or appropriate for any given patient. [employer] does not assume any responsibility for any aspect of healthcare administered with the aid of information [employer] provides. The information contained herein is not intended to cover all possible uses, directions, precautions, warnings, drug interactions, allergic reactions, or adverse effects. If you have questions about the drugs you are taking, check with your doctor, nurse or pharmacist. Copyright 5714-7967 [employer]. Version: 14.11. Revision Date: 07/09/2016. Thank you for choosing [facility] Normal [facility] Interdisciplinary Note - Brett e Manageron 10-15-2017 Interdisciplinary Note - Wood Repatcher Daily rounds completed with hospitalist Dr. Canchola, MARY Cuellar, Pharmacist Maryjane present. Patient alert and oriented, involved in POC. Discussed medications, labs, and tests. Pt remains in isolation. No family present at this time. Patient?s goal is to return home with [facility] at discharge. Anticipated discharge yet to be determined, awaiting wound vac authorization from [place] [employer]. Contact and goal information updated on white board. [facility] Progress Note-Physicianon Progress Note-Physician Patient: WILLOW [...] (4)ceFAZolin 2 gram 50 mL, IV Piggyback, b8dryywofpqa sodium 100 mg Cap [F] 100 mg 1 cap(s), Oral, BIDnicotine 14 mg/24 hr Transderm ER Film [F] 14 mg 1 patch(es), TransDermal, DailySodium Chloride 0.9% 500 mL 500 mL, IVContinuous: (1)Lactated Ringers 1,000 mL 1,000 mL, IV, 20 mL/hrPRN: (6)acetaminophen 325 mg Tab UD [F] 650 mg 2 tab(s), Oral, v2aqqzxlnfvonvgsv-kykzqgllw 325 mg-5 mg Tab [F] 1 tab(s), Oral, g8jgpmofsiceb 0.083% Inh Mary 3 mL [F] 2.5 mg 3 mL, NEB, c7pkanlkbqoca CFC free 90 mcg/inh Inh Aer w/Adapt 8.5 gm [F] 180 microgram 2 puff(s), Inhalation, u6yeqllqefnp 2 mg/mL preservative-free SOLN [F] 2 mg 1 mL, IV Push, u0drissoenhlqrg 2 mg/mL Inj [F] 4 mg 2 mL, IV Push, q6hr Problem list: All ProblemsImpaired skin integrity / SNOMED CT 78692872 / ConfirmedProblem added on documentation of skin impairments.At risk for falls / SNOMED CT 150266296 / PossibleProblem added when Risk for Falls Careplan was initiated.Smoker / IMO [id number] / ConfirmedAdded secondary to documentation in Social History.Resolved: Asthma / SNOMED CT 251997566 Histories Past Medical History: ResolvedAsthma ([id number]): Resolved. Family History: AsthmaMother Procedure history: Incision AND drainage (SNOMED CT 224203282) performed by Jose M Patten MD on 10/08/2017 at 27 Years.Comments:10/08/2017 19:32 - Magda RN, Julieta IGLESIAS AND D AND IRRIGATION LEFT LOWER BACK ABCESS 10 X 15 CMIncision AND drainage (SNOMED CT 983509672).Comments:10/06/2017 06:12 - Raulito THOMPSON, Philippe right hand Social History Social & Psychosocial AbbztzJjundbm33/26/2017 Risk Assessment: Denies Alcohol UseSubstance Abuse10/05/2017 Risk Assessment: Denies Substance AmbjpEgkvrrq16/26/2017 Risk Assessment: High Risk10/05/2017 Use: Current Every [...] 08:49) 78 (OCT 15 08:49) 90 (OCT 14:11)SpO2 97 (OCT 15:51) 95 (OCT 14 20:09) 97 (OCT 15:52) General: Alert and oriented, No acute distress. [...] Delarosa MD on October 08, 2017 08:58 [facility] info: [id number], [facility], Inpatient, 10/05/2017 - . Condition: Fair. [...] wound VAC. Awaiting precertification by insurance. [facility] Comment on above: Result Comment: Elec tronically Signed By: Sushant DC, Juan Pablo\.br\Date and Time Signed: 10/15/17 11:21 EST Progress [...] (4)ceFAZolin 2 gram 50 mL, IV Piggyback, t8uiuhvitknr sodium 100 mg Cap [F] 100 mg 1 cap(s), Oral, BIDnicotine 14 mg/24 hr Transderm ER Film [F] 14 mg 1 patch(es), TransDermal, DailySodium Chloride 0.9% 500 mL 500 mL, IVContinuous: (1)Lactated Ringers 1,000 mL 1,000 mL, IV, 20 mL/hrPRN: (6)acetaminophen 325 mg Tab UD [F] 650 mg 2 tab(s), Oral, m0wrqadnakapgbmwy-ceszrshjy 325 mg-5 mg Tab [F] 1 tab(s), Oral, g8rixjopzjzvu 0.083% Inh Mary 3 mL [F] 2.5 mg 3 mL, NEB, a8keckgqinhdz CFC free 90 mcg/inh Inh Aer w/Adapt 8.5 gm [F] 180 microgram 2 puff(s), Inhalation, o7msxnejwjgm 2 mg/mL preservative-free SOLN [F] 2 mg 1 mL, IV Push, n8wtmhakxalqcjz 2 mg/mL Inj [F] 4 mg 2 mL, IV Push, q6hr Problem list: All ProblemsAt risk for falls / SNOMED CT 687743773 / PossibleProblem added when Risk for Falls Careplan was initiated.Impaired skin integrity / SNOMED CT 44959097 / ConfirmedProblem added on documentation of skin impairments.Smoker / IMO [id number] / ConfirmedAdded secondary to documentation in Social [...] 16:11)SpO2 97 (OCT 15 08:51) 95 (OCT 14:09) 97 (OCT 14 11:06) [...] on dc for total 3 weeks. . [facility] Comment on above: Result Comment: Elec tronically Signed By: Julian Cyr M.D\.pretty\Date and Time Signed: 10/15/17 10:25 EST Interdisciplinary [...] and goal information updated on white board. [facility] Progress Note-Physicianon Progress Note-Physician Patient: WILLOW [...] (4)ceFAZolin 2 gram 50 mL, IV Piggyback, p1pdcouacugz sodium 100 mg Cap [F] 100 mg 1 cap(s), Oral, BIDnicotine 14 mg/24 hr Transderm ER Film [F] 14 mg 1 patch(es), TransDermal, DailySodium Chloride 0.9% 500 mL 500 mL, IVContinuous: (1)Lactated Ringers 1,000 mL 1,000 mL, IV, 20 mL/hrPRN: (6)acetaminophen 325 mg Tab UD [F] 650 mg 2 tab(s), Oral, x4itvgjvhagltlybo-fgljgamgn 325 mg-5 mg Tab [F] 1 tab(s), Oral, g0nnimiwrowhq 0.083% Inh Mary 3 mL [F] 2.5 mg 3 mL, NEB, w0wcobcsouqky CFC free 90 mcg/inh Inh Aer w/Adapt 8.5 gm [F] 180 microgram 2 puff(s), Inhalation, a4hgpoomhbsr 2 mg/mL preservative-free SOLN [F] 2 mg 1 mL, IV Push, b9rxzkjbfuouyyn 2 mg/mL Inj [F] 4 mg 2 mL, IV Push, q6hr Problem list: All ProblemsImpaired skin integrity / SNOMED CT 97462648 / ConfirmedProblem added on documentation of skin impairments.At risk for falls / SNOMED CT 020183085 / PossibleProblem added when Risk for Falls Careplan was initiated.Smoker / IMO [id number] / ConfirmedAdded secondary to documentation in Social History.Resolved: Asthma / SNOMED CT 243009645 Histories Past Medical History: ResolvedAsthma ([id number]): Resolved. Family History: AsthmaMother Procedure history: Incision AND drainage (SNOMED CT 660192744) performed by Jose M Patten MD on 10/08/2017 at 27 Years.Comments:10/08/2017 19:32 - Magda RN, Julieta NI AND D AND IRRIGATION LEFT LOWER BACK ABCESS 10 X 15 CMIncision AND drainage (SNOMED CT 666945186).Comments:10/06/2017 06:12 - Raulito THOMPSON, Philippe right hand Social History Social & Psychosocial YvgfudOkzqlvg64/26/2017 Risk Assessment: Denies Alcohol UseSubstance Abuse10/05/2017 Risk Assessment: Denies Substance LbtjwSmohvrw44/26/2017 Risk Assessment: High Risk10/05/2017 Use: Current Every Day Smoker Type: Cigarettes Tobacco use per day: 0.5. Objective VS/Measurements: Vitals Signs (last 24 hrs) Last Charted Minimum MaximumTemp 36.7 (OCT 14 09:59) 36.6 (OCT 13 23:00) 36.7 (OCT 13 16:31)Heart Rate 86 (OCT 14:06) 86 (OCT 14:06) H 103 (OCT 13 23:00)Resp Rate 16 (OCT 14:04) 16 (OCT 13 18:36) 17 (OCT 13 23:00)SBP 108 (OCT 14:05) 105 (OCT 13 23:00) 113 (OCT 13 [...] 36.7 (OCT 13 16:31)Heart Rate 86 (OCT 14 11:06) 86 (OCT 14 11:06) H 103 (OCT 13:00)Resp Rate 16 (OCT 14 11:04) 16 (OCT 13 18:36) 17 (OCT 13 23:00)SBP 108 (OCT 14 11:05) 105 (OCT 13 23:00) 113 (OCT 13 18:37)DBP 70 (OCT 14 11:05) 64 (OCT 13 23:00) 77 (OCT 14 08:25)MAP 82 (OCT 14 11:05) 78 (OCT 13 23:00) 89 (OCT 14 08:25)SpO2 97 (OCT 14:) 97 (OCT 14:) 99 (OCT 13:) General: Alert and oriented, No acute distress. [...] Line FINAL REPORT Dictated: 10/08/2017 8:58 am [place], Yury HUSSEINigned (Electronic Signature): 10/08/2017 8:58 amSigned by: Yury Delarosa MDTranscribed by: JENNIFFER Technologist: CHUCK Fernandes document has an imageResult type: US Abdomen, LimitedResult date: October 07, 2017 18:20 ESTResult status: Auth (Verified)Result title: US Abdomen, LimitedPerformed by: Yury Delarosa MD on October 08, 2017 08:58 ESTVerified by: Yury Delarosa MD on October 08, 2017 08:58 [facility] info: [id number], [facility], Inpatient, 10/05/2017 - . Condition: Fair. [...] wound VAC. Awaiting precertification by insurance. [facility] Comment on above: Result Comment: Elec tronically Signed By: Sushant DC, Juan Pablo\.br\Date and Time Signed: 10/14/17 11:09 EST C Bloodon 10-13-2017 Bacteria culture MicrobiologyPROCEDUR E: Blood Culture [R1] Blood BODY SITE: Arm LCOLLECTED DATE/TIME: 10/05/2017 23:35 EST RECEIVED DATE/TIME: 10/06/2017 00:59 ESTSTART DATE/TIME: 10/06/2017 00:59 EST FREE TEXT SOURCE: Peripheral vein site #2Hwalter Mcfadden, Анна Torres M.D., Анна NicoleFINAL REPORTSFinal Report [] Verified Date/Time: 10/13/2017 03:00 ESTNo growth at 7 days.Performing LocationsR1: This test was performed at: [facility], [address] [place] [address], [address] , [facility] Comment on above: Performed By: #### 1 [id number], [id number], [id number], [id number], [id number] ####[facility] [address] [place] [address] Bacteria culture MicrobiologyPROCEDUR E: Blood Culture [R1] Blood BODY SITE: Arm RCOLLECTED DATE/TIME: 10/05/2017 23:08 EST RECEIVED DATE/TIME: 10/06/2017 01:00 ESTSTART DATE/TIME: 10/06/2017 01:00 EST FREE TEXT SOURCE: Peripheral vein site #1Hwalter Mcfadden, Анна Torres M.D., Анна NicoleFINAL REPORTSFinal Report [] Verified Date/Time: 10/13/2017 03:00 ESTNo growth at 7 days.Performing LocationsR1: This test was performed at: [facility], [address] [place] [address], [address] , [facility] Comment on above: Performed By: #### 1 [id number], [id number], [id number], [id number] ####[address] [address] Interdisciplinary Note - Brett e Manageron 10-13-2017 Interdisciplinary Note - Wood Repatcher Daily rounds completed with hospitalist Dr. Canchola, MARY Cuellar, Pharmacist Maryjane, Philosophy Lecturer Damaris, and RN present. Patient alert and oriented, involved in POC. Discussed medications, labs, and tests. No family present at this time. Patient?s goal is to return home with [facility] wound Vac at discharge. Anticipated discharge yet to be determined, awaiting wound vac authorization. Contact and goal information updated on white board. [facility] Progress Note-Physicianon Progress Note-Physician Patient: WILLOW [...] (4)ceFAZolin 2 gram 50 mL, IV Piggyback, t7jbjzajsnxp sodium 100 mg Cap [F] 100 mg 1 cap(s), Oral, BIDnicotine 14 mg/24 hr Transderm ER Film [F] 14 mg 1 patch(es), TransDermal, DailySodium Chloride 0.9% 500 mL 500 mL, IVContinuous: (1)Lactated Ringers 1,000 mL 1,000 mL, IV, 20 mL/hrPRN: (5)acetaminophen 325 mg Tab UD [F] 650 mg 2 tab(s), Oral, u0pjcptywzvkt 0.083% Inh Mary 3 mL [F] 2.5 mg 3 mL, NEB, v2pghzunjuzvd CFC free 90 mcg/inh Inh Aer w/Adapt 8.5 gm [F] 180 microgram 2 puff(s), Inhalation, r5wlecriulyz 2 mg/mL preservative-free SOLN [F] 4 mg 2 mL, IV Push, s4wqvzcnvturupu 2 mg/mL Inj [F] 4 mg 2 mL, IV Push, q6hr Problem list: All ProblemsImpaired skin integrity / SNOMED CT 08174879 / ConfirmedProblem added on documentation of skin impairments.At risk for falls / SNOMED CT 875019998 / PossibleProblem added when Risk for Falls Careplan was initiated.Smoker / IMO [id number] / ConfirmedAdded secondary to documentation in Social History.Resolved: Asthma / SNOMED CT 338763458 Histories Past Medical History: ResolvedAsthma (042724914): Resolved. Family History: AsthmaMother Procedure history: Incision AND drainage (SNOMED CT 390532523) performed by Jose M Patten MD on 10/08/2017 at 27 Years.Comments:10/08/2017 19:32 - Magda RN, Julieta IGLESIAS AND D AND IRRIGATION LEFT LOWER BACK ABCESS 10 X 15 CMIncision AND drainage (SNOMED CT 103848995).Comments:10/06/2017 06:12 - Philippe Cabezas RN right hand Social History Social & Psychosocial YtwekjRxcogdu95/26/2017 Risk Assessment: Denies Alcohol UseSubstance Abuse10/05/2017 Risk Assessment: Denies Substance KwqnnTgkigcb50/26/2017 Risk Assessment: High Risk10/05/2017 Use: Current Every [...] 19:32) 76 (OCT 13 07:22)MAP 93 (OCT 13:22) 74 (OCT 12 19:32) 93 (OCT 13 07:22)SpO2 98 (OCT 13:23) 97 (OCT 12 19:33) 100 (OCT 13 00:36). Vitals Signs (last 24 hrs) Last Charted Minimum MaximumTemp 36.6 (OCT 13 07:22) 36.5 (OCT 12 19:32) 36.6 (OCT 12 11:00)Heart Rate 90 (OCT 13:23) 72 (OCT 12 11:00) H 101 (OCT 12 19:33)Resp Rate 14 (OCT 13:23) 14 (OCT 13:23) 19 (OCT 12 19:33)SBP 128 (OCT 13 07:22) 105 (OCT 12 19:32) 128 (OCT 13 07:22)DBP 76 (OCT 13:22) L 59 (OCT 12:32) 76 (OCT 13:22)MAP 93 (OCT 13:22) 74 (OCT 12 19:32) 93 (OCT 13 07:22)SpO2 98 (OCT 13 07:23) 97 (OCT 12 19:33) 100 (OCT 13 [...] Delarosa MD on October 08, 2017 08:58 [facility] info: [id number], [facility], Inpatient, 10/05/2017 - . Condition: [...] homebound wound VAC. Awaiting precertification by insurance. [facility] Comment on above: Result Comment: Elec tronically Signed By: Sushant DC, Juan Pablo\.br\Date and Time Signed: 10/13/17 11:01 EST Interdisciplinary Note - Brett e Manageron 10-12-2017 Interdisciplinary Note - Wood Repatcher Daily rounds completed with hospitalist Dr. Canchola, MARY Cuellar, Pharmacist Maryjane, Philosophy Lecturer Damaris, and Dara RN present. Patient alert and oriented, involved in POC. Discussed medications, labs, and tests. Await Dr. Patten and ID recommendations. Oral Atbx at d/c. No family present at this time. Patient?s goal is to return home with [facility] at discharge. Anticipated discharge yet to be determined, possibly later today. Contact and goal information updated on white board. [facility] Main OR Intraoperative Recor don 10-12-2017 Main OR Intraoperative Record IntraOp Document Type FT Summary Primary Physician: Sandor DC, Jose M Camilo Finalized Date/Time: 10/12/17 11:18:39 Pt. Name: WILLOW WILKES/Sex: 1990 Male Med Rec #: [id number] Physician: Анна Torres M.D. Financial #: [id number] Pt. Type: I Room/Bed: [place] [address] Admit/Disch: 10/05/17 17:35:00 - Institution: Case Times FT Entry 1 Patient Times In Room 10/08/17 14:16:00 Out Room 10/08/17 14:46:00 Procedure Times Start 10/08/17 14:25:00 Stop 10/08/17 14:39:00 Anesthesia Times Start 10/08/17 14:16:00 Stop 10/08/17 14:46:00 Last Modified By: Vi Ambriz CST 10/08/17 14:46:55 General Comments: 10/12/2017 Chart opened to review and send charges Chadd villa Case Attendance FT Entry 1 Entry 2 Entry 3 Case Attendee Nabil SHETTY, Claudia Patten MD, Jose M Zayas RN, Darron Cardoso Role Performed Anesthesiologist of Surgeon - Primary Rn Support Services - Primary Record Time In 10/08/17 14:16:00 [...] Entry 5 Entry 6 Case Attendee Kenroy ARANGON, RN, Ben HARNESS PREPARER, Junior Downey RN, CNOR, CRNFA, Yoselin ONC, Sharmaine Role Performed Rn Support Services - Other Scrub - Primary Rn Support Services - Other Time In 10/08/17 14:16:00 10/08/17 [...] Time Out Complete 10/08/17 14:23:00 Participants Kenroy ARANGON, RN, Sandor Wyatt MD, Marquez Mccann RN, Nabil Suero Carly C Outcomes Met? Yes Last Modified By: LUIS Downey RN, PHONG MATTHEWS Lucille 10/08/17 14:26:07 Post-Care Text: The patient is free from signs and symptoms of injury caused by extraneous objects Allergy Information FT Pre-Care Text: Verifies allergies Entry 1 Allergies Reviewed? Yes Allergies Reviewed Self/Patient With Outcomes Met? Yes Last Modified By: LUIS Downey RN, CRNFA, ONC, Sharmaine 10/08/17 14:19:18 Post-Care Text: The patient received [...] Modified By: LUIS Downey RN, PHONG MATTHEWS, Sharmaine 10/08/17 14:51:59 Post-Care Text: The patient is free from signs and symptoms of infection Skin Assessment (Pre Procedure) FT Pre-Care Text: Implements protective measures to prevent skin/ tissue injury due to thermal or mechanical sources Evaluates for signs and symptoms of physical injury to skin and tissue Entry 1 Skin Integrity Intact, Blain, Warm, and Skin Abnormality Yes Dry Abnormality Location LEFT LOWER BACK Abnormality Type RED AND SWELLING Outcomes Met? Yes Last Modified By: LUIS Downey RN, PHONG MATTHEWS Lucille 10/08/17 14:30:33 Post-Care Text: The patient is [...] Yes Last Modified By: Shayan THOMPSON, CNOR, CRNANDAA, ONC, [facility] 10/08/17 14:20:39 Post-Care Text: The patient is free from signs and symptoms of injury related to positioning Patient Care Devices Pre-Care Text: Implements protective measures to prevent skin/ tissue injury due to thermal or mechanical sources Entry 1 Entry 2 Entry 3 Equipment Type CAUTERY UNIT[F] MONITOR CHARGE SURGERY INTERPULSE[F] [F] Equipment Number [id number] Equipment Setting Outcomes Met? Yes Yes Yes Last Modified By: Shayan THOMPSON, CNOR, CRNANDAA, Shayan RN, CNOR, CRNFA, Shayan RN, CNOR, CRNFA, ONC, [facility] 10/08/17 ONC, [facility] 10/08/17 ONC, [facility] 10/08/17 14:22:12 14:22:12 14:31:18 Entry 4 Equipment Type MISTRAL FORCED AIR WARMING SYSTEM UNIT[F] Equipment Number [id number] Equipment Setting Outcomes Met? Yes Last Modified By: Shayan THOMPSON, CNOR, CRNANDAA, ONC, [facility] 10/08/17 14:36:01 Post-Care Text: The patient is free from signs and symptoms of injury caused by extraneous objects Transport To OR FT Pre-Care Text: Transports according to individual needs. Evaluates for signs and symptoms of skin and tissue injury as a result of transfer or transport Entry 1 Via Ambulatory By Darron Zayas RN Safety Precautions N/A Outcomes Met? Yes Last Modified By: Shayan THOMPSON, CNORCASSIE ONC, [place] 10/08/17 14:20:45 Post-Care Text: The patient [...] RN Patient Status Stable Skin. Condition Intact, Blain, Warm, and Description EXCEPT FOR OPERATIVE Dry [...] LUIS Downey RN, CASSIE, LUIS Downey RN, PHONG MATTHEWS Lucille 10/08/17 Sharmaine DARLING 12/29/17 14:38:26 14:38:26 Post-Care Text: The patient is free from signs and symptoms of infection Medication Administration FT Pre-Care Text: Verifies allergies, administers prescribed medications and solutions, administers prescribed antibiotic therapy and immunizing agents as ordered, evaluates response to medications Administers prescribed medications and solutions Entry 1 Expiration Date Yes Outcomes Met? Yes Verified Last Modified By: LUIS Downey RN, CRNFA, ONC, [place] 10/08/17 14:21:34 Post-Care Text: The patient received appropriate medication(s) safely administered during the perioperative period For [facility] please see scanned medication reconcilliation form for medications used at the field during the procedure. Cultures and Specimens FT Pre-Care Text: Manages specimen handling and disposition Manages culture specimen collection Entry 1 Cultures Ordered Yes Culture Disposition Lab Culture Source LEFT LOWER BACK Frozen Section Times Outcomes Met? Yes Last Modified By: LUIS Downey RN, CRNFA, ONC, [place] 10/08/17 14:32:08 Post-Care Text: The patient is free from signs and symptoms of injury caused by extraneous objects The patient is free from signs and symptoms of infection Temperature Control Entry 1 Temperature Control BLANKET MISTRAL AIR Quantity 1 Aid PLUS LOWER BODY [[id number]][F] Fluid/[place] Unit Mistral warming system Body Site Lower anterior torso Last Modified By: LUIS Downey RN, CRNFA, ONC, [place] 10/08/17 14:36:32 Case Comments Finalized By: Vi Ambriz CST Document Signatures Signed By: LUIS Downey RN, CRNFA, ONC, [place] 10/08/17 14:52 Vi Ambriz CST 10/12/17 11:18 Normal [facility] Progress Note-Physicianon Progress Note-Physician Patient: WILLOW WILKES Age: 27 years Sex: Male : 1990 Associated Diagnoses: None Author: Julian Cyr M.D Subjective Doing better overall since I&D. Culture with MSSA. Health Status Allergies: Allergic Reactions (Selected)No Known Allergies Current medications: Medications (10) ActiveScheduled: (4)ceFAZolin 2 gram 50 mL, IV Piggyback, k7okfxnxonnz sodium 100 mg Cap [F] 100 mg 1 cap(s), Oral, BIDnicotine 14 mg/24 hr Transderm ER Film [F] 14 mg 1 patch(es), TransDermal, DailySodium Chloride 0.9% 500 mL 500 mL, IVContinuous: (1)Lactated Ringers 1,000 mL 1,000 mL, IV, 20 mL/hrPRN: (5)acetaminophen 325 mg Tab UD [F] 650 mg 2 tab(s), Oral, c8flzfpelcieb 0.083% Inh Mary 3 mL [F] 2.5 mg 3 mL, NEB, m6ljhrwfjmncc CFC free 90 mcg/inh Inh Aer w/Adapt 8.5 gm [F] 180 microgram 2 puff(s), Inhalation, d1oxwxscurqc 2 mg/mL preservative-free SOLN [F] 4 mg 2 mL, IV Push, y4kdnjadmlyhpzd 2 mg/mL Inj [F] 4 mg 2 mL, IV Push, q6hr Problem list: All ProblemsAt risk for falls / SNOMED CT 160296372 / PossibleProblem added when Risk for Falls Careplan was initiated.Impaired skin integrity / SNOMED CT 65003303 / ConfirmedProblem added on documentation of skin impairments.Smoker / IMO [id number] / ConfirmedAdded secondary to documentation in Social History. Objective Vitals Signs (last 24 hrs) Last Charted Minimum MaximumTemp 36.6 (OCT 12 11:00) 36.5 (OCT 11:57) 36.6 (OCT 12 07:00)Heart Rate 72 (OCT 12 11:00) 72 (OCT 12 11:00) 82 (OCT 11 23:00)Resp Rate 16 (OCT 12 11:00) 16 (OCT 11 19:57) 17 (OCT 11 23:00)SBP 106 (OCT 12 11:00) 100 (OCT 12 06:45) 109 (OCT 11 23:00)DBP 74 (OCT 12 11:00) L 53 (OCT 11 19:57) 80 (OCT [...] 2-3 weeks. Wound care per surgery.. Normal [facility] Comment on above: Result Comment: Elec tronically Signed By: Julian Cyr M.D\.pretty\Date and Time Signed: 10/12/17 16:12 EST Progress [...] (4)ceFAZolin 2 gram 50 mL, IV Piggyback, y8brmvzpavln sodium 100 mg Cap [F] 100 mg 1 cap(s), Oral, BIDnicotine 14 mg/24 hr Transderm ER Film [F] 14 mg 1 patch(es), TransDermal, DailySodium Chloride 0.9% 500 mL 500 mL, IVContinuous: (1)Lactated Ringers 1,000 mL 1,000 mL, IV, 20 mL/hrPRN: (5)acetaminophen 325 mg Tab UD [F] 650 mg 2 tab(s), Oral, n6azeecpxroej 0.083% Inh Mary 3 mL [F] 2.5 mg 3 mL, NEB, g5sbmyletufto CFC free 90 mcg/inh Inh Aer w/Adapt 8.5 gm [F] 180 microgram 2 puff(s), Inhalation, g7kvsemkvpgc 2 mg/mL preservative-free SOLN [F] 4 mg 2 mL, IV Push, e0fovbvffbfbgmp 2 mg/mL Inj [F] 4 mg 2 mL, IV Push, q6hr Problem list: All ProblemsImpaired skin integrity / SNOMED CT 27208777 / ConfirmedProblem added on documentation of skin impairments.At risk for falls / SNOMED CT 079335345 / PossibleProblem added when Risk for Falls Careplan was initiated.Smoker / IMO [id number] / ConfirmedAdded secondary to documentation in Social History.Resolved: Asthma / SNOMED CT 261406201 Histories Past Medical History: ResolvedAsthma ([id number]): Resolved. Family History: AsthmaMother Procedure history: Incision AND drainage (SNOMED CT 196818175) performed by Jose M Patten MD on 10/08/2017 at 27 Years.Comments:10/08/2017 19:32 - Magda RN, Julieta NI AND D AND IRRIGATION LEFT LOWER BACK ABCESS 10 X 15 CMIncision AND drainage (SNOMED CT 355817000).Comments:10/06/2017 06:12 - Philippe Cabezas RN right hand Social History Social & Psychosocial YjwyayCtnyhvd01/26/2017 Risk Assessment: Denies Alcohol UseSubstance Abuse10/05/2017 Risk Assessment: Denies Substance EkyonXewhlea05/26/2017 Risk Assessment: High Risk10/05/2017 Use: Current Every [...] Delarosa MD on October 08, 2017 08:58 [facility] info: [id number], Jin Ariel, Inpatient, 10/05/2017 - . Condition: Fair. Impression [...] soon pending Wound Vac change today. Normal [facility] Comment on above: Result Comment: Elec tronically Signed By: Juan Pablo Canchola MD\.br\Date and Time Signed: 10/12/17 11:24 EST Progress [...] (4)ceFAZolin 2 gram 50 mL, IV Piggyback, s0huboahjhmc sodium 100 mg Cap [F] 100 mg 1 cap(s), Oral, BIDnicotine 14 mg/24 hr Transderm ER Film [F] 14 mg 1 patch(es), TransDermal, DailySodium Chloride 0.9% 500 mL 500 mL, IVContinuous: (1)Lactated Ringers 1,000 mL 1,000 mL, IV, 20 mL/hrPRN: (6)acetaminophen 325 mg Tab UD [F] 650 mg 2 tab(s), Oral, g1uzedmjuzmoe 0.083% Inh Mary 3 mL [F] 2.5 mg 3 mL, NEB, s2fmzvwbwcbuz CFC free 90 mcg/inh Inh Aer w/Adapt 8.5 gm [F] 180 microgram 2 puff(s), Inhalation, o0spmaqbfictz 30 mg/mL Inj 1 mL [F] 30 mg 1 mL, IV, x5gjxfixajjj 10 mg/mL preservative-free SOLN [F] 4 mg 0.4 mL, IV Push, z4jurundqudshcl 2 mg/mL Inj [F] 4 mg 2 mL, IV Push, q6hr Problem list: All ProblemsImpaired skin integrity / SNOMED CT 21666981 / ConfirmedProblem added on documentation of skin impairments.Smoker / IMO [id number] / ConfirmedAdded secondary to documentation in Social History.Resolved: Asthma / SNOMED CT 680796358 Histories Past Medical History: ResolvedAsthma ([id number]): Resolved. Family History: AsthmaMother Procedure history: Incision AND drainage (SNOMED CT 363259655) performed by Jose M Patten MD on 10/08/2017 at 27 Years.Comments:10/08/2017 19:32 - Magda RN, Julieta IGLESIAS AND D AND IRRIGATION LEFT LOWER BACK ABCESS 10 X 15 CMIncision AND drainage (SNOMED CT 338437049).Comments:10/06/2017 06:12 - Philippe Cabezas RN right hand Social History Social & Psychosocial XhiijhIfmsdeh18/26/2017 Risk Assessment: Denies Alcohol UseSubstance Abuse10/05/2017 Risk Assessment: Denies Substance IvwujYlzpfaw46/26/2017 Risk Assessment: High Risk10/05/2017 Use: Current Every [...] 08:00) 60 (OCT 10 23:33) 74 (OCT 11 04:24)MAP 85 (OCT 10 20:12) 85 (OCT 10 [...] 08:00) 60 (OCT 10 23:33) 74 (OCT 11 04:24)MAP 85 (OCT 10 20:12) 85 (OCT 10 [...] Delarosa MD on October 08, 2017 08:58 [facility] info: [id number], [facility], Inpatient, 10/05/2017 - . Condition: Fair. [...] pending Wound Vac change on 10/12/17 Normal [facility] Comment on above: Result Comment: Elec tronically Signed By: Sushant DC, Juan Pablo\.br\Date and Time Signed: 10/11/17 12:43 EST Auto Diffon 10-10-2017 Basophils Auto #/vol (Bld) 0.1 E9/L Normal 0.0-0.2 [facility] Comment on above: Order Comment: Order Added by Discern Expert. Performed By: #### 1 2165903, 8614262, 73463332, 6966207, 03990950, 7807425, 7763782 ####[facility] [address] [place] [address] Basophils Auto #/vol (Bld) 0.9 % Normal 0.0-2.0 [facility] Comment on above: Order Comment: Order Added by Discern Expert. Performed By: #### 1 4934085, 6855784, 71680884, 6744895, 34140348, 1687019, 7964594 ####[facility] [address] [place] [address] Eosinophils 0.7 E9/L High 0.0-0.5 [facility] Comment on above: Order Comment: Order Added by Discern Expert. Performed By: #### 1 2875429, 1291835, 10881831, 1028318, 69629154, 3479523, 0085605 ####[facility] [address] [place] [address] Eosinophils/100 leukocytes 7.4 % Normal 0.0-8.0 [facility] Comment on above: Order Comment: Order Added by Margo Expert. Performed By: #### 1 9066983, 2406307, 15525478, 0404033, 86640599, 1402037, 1256066 ####[facility] [address] [place] [address] Lymphocytes 2.4 E9/L Normal 1.0-4.0 [facility] Comment on above: Order Comment: Order Added by Discern Expert. Performed By: #### 1 8614217, 4749970, 06478171, 8784499, 01753072, 5254602, 5421326 ####[facility] [address] [place] [address] Lymphocytes/100 leukocytes 25.6 % Normal 14.0-50.0 [facility] Comment on above: Order Comment: Order Added by Margo Expert. Performed By: #### 1 0263818, 6222426, 22381522, 7383255, 61645556, 2930049, 1277297 ####[facility] [address] [place] [address] Monocytes 0.9 E9/L Normal 0.2-1.0 [facility] Comment on above: Order Comment: Order Added by Margo Expert. Performed By: #### 1 0046308, 1634375, 22913404, 5508733, 42752475, 2324717, 7080623 ####[facility] [address] [place] [address] Monocytes/100 leukocytes 9.9 % Normal 4.0-14.0 [facility] Comment on above: Order Comment: Order Added by Margo Expert. Performed By: #### 1 1454957, 3687209, 29323828, 4338514, 38756271, 7025716, 0702146 ####[facility] [address] [place] [address] Neutrophils 5.3 E9/L Normal 2.0-7.5 [facility] Comment on above: Order Comment: Order Added by Margo Expert. Performed By: #### 1 8757231, 8425375, 93479449, 6552259, 68430742, 9103249, 8906870 ####[facility] [address] [place] [address] Neutrophils/100 leukocytes 56.2 % Normal 36.0-75.0 [facility] Comment on above: Order Comment: Order Added by Discern Expert. Performed By: #### 1 8669766, 5796713, 36613863, 1906577, 11566695, 5009157, 8591222 ####[facility] [address] [place] [address] [place] 10-10-2017 Wound Culture MicrobiologyPROCEDUR E: [...] SPerforming LocationsR1: This test was performed at: [facility], [address] [place] [address], [id number] , [facility] Comment on above: Performed By: #### 1 8975754, 5834567, 77620803, 8973009, 11029004, 0690971, 4297679 ####[address] [address] CBC w/ Auto Diffon 7 Erythrocyte distribution width Auto Ratio (RBC) 13.3 % Normal 10.9-14.2 [facility] Comment on above: Performed By: #### 1 9540875, 5369033, 57142349, 0871700, 76146923, 4302704, 7764000 ####[address] [address] [place] [address] Erythrocytes (RBC) 3.4 E12/L Low 4.3-5.9 [facility] Comment on above: Performed By: #### 1 2776375, 3875103, 38022700, 3142656, 05999801, 6153807, 8720450 ####[address] [place] [address] Hematocrit (HCT) 31.1 % Low 37.7-49.0 [facility] Comment on above: Performed By: #### 1 0148079, 8079735, 74147373, 2714080, 13421219, 3037835, 0218864 ####[address] [place] [address]57 Hemoglobin mass conc (Bld) 10.8 g/dL Low 13.5-17.5 [facility] Comment on above: Performed By: #### 1 6133355, 8203078, 35096741, 3904200, 49131595, 3364250, 0937076 ####[place] [address] MCH 31.9 pg Normal 27.0-34.0 [facility] Comment on above: Performed By: #### 1 8248936, 4750361, 39358702, 5924056, 91216785, 6439752, 2863693 ####[place] [address] MCHC mass conc (RBC) 34.6 g/dL Normal 31.4-39.3 [facility] Comment on above: Performed By: #### 1 1122247, 1874449, 75912071, 5900499, 95327210, 2640753, 9878775 ####[place] [address] MCV 92.1 fL Normal 80.0-100.0 [facility] Comment on above: Performed By: #### 1 7595919, 2503774, 86774062, 2476424, 31248543, 4856463, 2265803 ####[place] [address] Platelet mean volume (PMV) 6.8 fL Normal 6.4-10.8 [facility] Comment on above: Performed By: #### 1 1900887, 4159840, 04670961, 7636431, 99783315, 0832426, 0964095 ####[facility] [address] [place] [address] Platelets 497.0 E9/L Normal 150.0-500. 0 [facility] Comment on above: Performed By: #### 1 7853358, 7012103, 20573893, 4645417, 69976118, 4835394, 4791171 ####[facility] [address] [place] [address] WBC (Leukocytes) 9.4 E9/L Normal 4.0-11.0 [facility] Comment on above: Result Comment: Slid e reviewed by DK. Performed By: #### 1 1398611, 2120482, 14673354, 9484829, 82493166, 9801381, 6794132 ####[facility] [address] [place] [address] Consultation Noteon 10-10-20 Consultation Note HOSPITAL REGULATIONS : ALL Positive [...] anesthesia today.Jose M Patten MD, FACSaekDictated: 10/08/2017 #[id number]: 10/09/2017 #[id number]: Luis F Benavides D.O.Myra Middleton M.D.Jose M Patten MD, FACS [facility] Comment on above: Result Comment: Elec tronically Signed By: Sandor DC, Jose M Camilo\.br\Date and Time Signed: 10/10/17 16:08 EST Interdisciplinary Note - Brett e Manageron 10-10-2017 Interdisciplinary Note - Wood Repatcher Spoke to Dr. Canchola who anticipates pt. to stay till Wednesday. I spoke to pt. regarding [facility] and a home wound vac and he is agreable and understands the homebound status. Referral sent to resource center. [facility] Interdisciplinary Note - Nut ritionon 10-10-2017 [...] this time. PO encouraged. Nutrition POC implemented. [facility] Operative Reporton 7 Operative Report Date [...] I was able to contact the [facility] and they were able to remove the packing and place aWound VAC in the Recovery Room to further aid in healing of this largeabscess cavity. This was all tolerated well by the patient.Jose M Patten MD, FACSglsDictated: 10/08/2017 #[id number]: 10/09/2017 #[id number]: Myra Middleton M.D.Jose M Patten MD, FACS [facility] Comment on above: Result Comment: Elec tronically Signed By: Sandor DC, Jose M Bishop.pretty\Date and Time Signed: 10/10/17 16:08 EST Progress [...] bad as it did on Wednesday. Normal [facility] Progress Note-Physicianon Progress Note-Physician Patient: WILLOW [...] (4)ceFAZolin 2 gram 50 mL, IV Piggyback, x2pyhdjsfyva sodium 100 mg Cap [F] 100 mg 1 cap(s), Oral, BIDnicotine 14 mg/24 hr Transderm ER Film [F] 14 mg 1 patch(es), TransDermal, DailySodium Chloride 0.9% 500 mL 500 mL, IVContinuous: (1)Lactated Ringers 1,000 mL 1,000 mL, IV, 75 mL/hrPRN: (6)acetaminophen 325 mg Tab UD [F] 650 mg 2 tab(s), Oral, d1yndvylmgfmn 0.083% Inh Mary 3 mL [F] 2.5 mg 3 mL, NEB, i1btihllalinv CFC free 90 mcg/inh Inh Aer w/Adapt 8.5 gm [F] 180 microgram 2 puff(s), Inhalation, q6jzntmdceohu 30 mg/mL Inj 1 mL [F] 30 mg 1 mL, IV, c5edcvrrsqpc 10 mg/mL preservative-free SOLN [F] 4 mg 0.4 mL, IV Push, s2nkztfzbbxgxlv 2 mg/mL Inj [F] 4 mg 2 mL, IV Push, q6hr Problem list: All ProblemsImpaired skin integrity / SNOMED CT 13704024 / ConfirmedProblem added on documentation of skin impairments.Smoker / IMO 153786 / ConfirmedAdded secondary to documentation in Social History.Resolved: Asthma / SNOMED CT 416118888 Histories Past Medical History: ResolvedAsthma ([id number]): Resolved. Family History: AsthmaMother Procedure history: Incision AND drainage (SNOMED CT 808432936) performed by Jose M Patten MD on 10/08/2017 at 27 Years.Comments:10/08/2017 19:32 - Magda RN, Julieta IGLESIAS AND Musa AND IRRIGATION LEFT LOWER BACK ABCESS 10 X 15 CMIncision AND drainage (SNOMED CT 088701786).Comments:10/06/2017 06:12 - Raulito THOMPSON, Philippe right hand Social History Social & Psychosocial KfqgukWasdsng67/26/2017 Risk Assessment: Denies Alcohol UseSubstance Abuse10/05/2017 Risk Assessment: Denies Substance UfymxOfqronb68/26/2017 Risk Assessment: High Risk10/05/2017 Use: Current Every Day Smoker Type: Cigarettes Tobacco use per day: 0.5. Objective VS/Measurements: Vitals Signs (last 24 hrs) Last Charted Minimum MaximumTemp 36.8 (OCT 10 07:00) 36.5 (OCT 09 15:37) 36.8 (OCT 10 01:00)Heart Rate 77 (OCT 10 07:00) 77 (OCT 10 07:00) 94 (OCT 09 19:30)Resp Rate 18 (OCT 10 07:00) 16 (OCT 09 17:13) 20 (OCT 10 01:00)SBP H 147 (OCT 10:00) 106 (OCT 09 19:29) H 147 (OCT 10:00)DBP 63 (OCT 10 07:00) L 59 (OCT 09 19:29) 72 (OCT 10 01:00)MAP 91 (OCT 10:00) 75 (OCT 09 19:29) 91 (OCT 10:00)SpO2 99 (OCT 10:00) 96 (OCT 09 17:13) 99 (OCT 10 07:00). Vitals Signs (last 24 hrs) Last Charted Minimum MaximumTemp 36.8 (OCT 10:00) 36.5 (OCT 09 15:37) 36.8 (OCT 10:)Heart Rate 77 (OCT 10:) 77 (OCT 10:00) 94 (OCT 09 19:30)Resp Rate 18 (OCT 10:00) 16 (OCT 09 17:13) 20 (OCT 10:00)SBP H 147 (OCT 10:00) 106 (OCT 09 19:29) H 147 (OCT 10:00)DBP 63 (OCT 10:) L 59 (OCT 09 19:29) 72 (OCT 10 01:00)MAP 91 (OCT 10 07:00) 75 (OCT 09 19:29) 91 (OCT 10 07:00)SpO2 99 (OCT 10:) 96 (OCT 09 17:13) [...] Auto 56.2 % Lymph Auto 25.6 % [place] Auto 9.9 % Eos Auto 7.4 % Basophil Auto 0.9 % Neutro Absolute 5.3 E9/L Lymph Absolute 2.4 E9/L [place] Absolute 0.9 E9/L Eos Absolute 0.7 E9/L [...] on October 08, 2017 08:58 ESTEncounter info: [id number], [facility], Inpatient, 10/05/2017 - . Condition: Fair. [...] and Wound Vac change on 10/12/17 Normal [facility] Comment on above: Result Comment: Elec tronically Signed By: Sushant DC, Juan Pablo\.br\Date and Time Signed: 10/10/17 11:42 EST Auto Diffon 10-09-2017 Basophils Auto #/vol (Bld) 0.1 E9/L Normal 0.0-0.2 [facility] Comment on above: Order Comment: Order Added by Discern Expert. Performed By: #### 1 8363609, 5285456, 69803273, 3757869, 79041589, 0044268, 2580036 ####[facility] [address] [place] [address] Basophils Auto #/vol (Bld) 0.4 % Normal 0.0-2.0 [facility] Comment on above: Order Comment: Order Added by Discern Expert. Performed By: #### 1 5703359, 3512625, 39054920, 9732039, 88608194, 8576167, 6895810 ####[facility] [address] [place] [address] Eosinophils 0.1 E9/L Normal 0.0-0.5 [facility] Comment on above: Order Comment: Order Added by Discern Expert. Performed By: #### 1 5201461, 9398785, 11208819, 7009999, 92185529, 7444599, 9593196 ####[address] [place] [address] Eosinophils/100 leukocytes 0.8 % Normal 0.0-8.0 [facility] Comment on above: Order Comment: Order Added by Discern Expert. Performed By: #### 1 0677301, 3158272, 52748412, 1359025, 80188566, 0193229, 7887636 ####[address] [place] [address] Lymphocytes 1.3 E9/L Normal 1.0-4.0 [facility] Comment on above: Order Comment: Order Added by Discern Expert. Performed By: #### 1 6903096, 3298735, 10195471, 0179365, 43494115, 2764239, 5706584 ####[address] [address] Lymphocytes/100 leukocytes 8.2 % Low 14.0-50.0 [facility] Comment on above: Order Comment: Order Added by Discern Expert. Performed By: #### 1 8065244, 3591553, 99413116, 9848036, 28274855, 2473780, 0503526 ####[facility] [address] [place] [address] Monocytes 1.2 E9/L High 0.2-1.0 [facility] Comment on above: Order Comment: Order Added by Margo Expert. Performed By: #### 1 2418522, 5425226, 93616251, 1567719, 08896035, 5209555, 0449090 ####[address] [place] [address] Monocytes/100 leukocytes 8.0 % Normal 4.0-14.0 [facility] Comment on above: Order Comment: Order Added by Discern Expert. Performed By: #### 1 1837923, 4814334, 69788238, 1140701, 90486700, 3876093, 0004317 ####[facility] [address] [place] [address] Neutrophils 12.7 E9/L High 2.0-7.5 [facility] Comment on above: Order Comment: Order Added by Discern Expert. Performed By: #### 1 8097569, 1190811, 56848506, 7525493, 87491142, 5023267, 8970949 ####[address] [place] [address] Neutrophils/100 leukocytes 82.6 % High 36.0-75.0 [facility] Comment on above: Order Comment: Order Added by Discern Expert. Performed By: #### 1 7857197, 8735466, 71515096, 1440983, 75161848, 4552498, 3022482 ####[address] [address] CBC w/ Auto Diffon 7 Erythrocyte distribution width Auto Ratio (RBC) 13.2 % Normal 10.9-14.2 [facility] Comment on above: Performed By: #### 1 3636266, 0162611, 56844059, 6563599, 47831560, 7509143, 7582939 ####[address] [place] [address] Erythrocytes (RBC) 3.6 E12/L Low 4.3-5.9 [facility] Comment on above: Performed By: #### 1 3691395, 5872547, 70913886, 5213107, 56072892, 0179767, 7149461 ####[address] [place] [address] Hematocrit (HCT) 32.3 % Low 37.7-49.0 [facility] Comment on above: Performed By: #### 1 8280376, 4306683, 14253427, 7434782, 54219742, 1712706, 7632048 ####[address] [place] [address] Hemoglobin mass conc (Bld) 11.0 g/dL Low 13.5-17.5 [facility] Comment on above: Performed By: #### 1 5997942, 7816919, 42931541, 0706897, 96914806, 4268977, 3427470 ####[address] [place] [address] MCH 31.0 pg Normal 27.0-34.0 [facility] Comment on above: Performed By: #### 1 2469537, 6724059, 96472033, 8744398, 26260344, 9014034, 3224724 ####[place] [address] MCHC mass conc (RBC) 34.1 g/dL Normal 31.4-39.3 [facility] Comment on above: Performed By: #### 1 7051505, 8217962, 62024044, 2226319, 37496419, 2866606, 3906251 ####[place] [address] MCV 91.0 fL Normal 80.0-100.0 [facility] Comment on above: Performed By: #### 1 6176810, 1758362, 04475826, 3451752, 91753821, 0457597, 0972980 ####[place] [address] [place] [address] Platelet mean volume (PMV) 7.1 fL Normal 6.4-10.8 [facility] Comment on above: Performed By: #### 1 4535532, 8667589, 01049872, 6815024, 33677723, 2272720, 0950518 ####[address] [address] Platelets 429.0 E9/L Normal 150.0-500. 0 [facility] Comment on above: Performed By: #### 1 4334846, 0645829, 45568588, 5468017, 47226380, 9532370, 9619728 ####[facility] [address] [place] [address] WBC (Leukocytes) 15.4 E9/L High 4.0-11.0 [facility] Comment on above: Result Comment: Slid e reviewed by AC. Performed By: #### 1 8139685, 6894043, 78637303, 1290855, 56749448, 3950612, 3176193 ####[facility] [address] [place] [address] Progress Note-Physicianon Progress Note-Physician Patient: WILLOW WILKES [...] mL 493 mg 0.99 EA, IV Piggyback, d33plemwnnsjw 14 mg/24 hr Transderm ER Film [F] 14 mg 1 patch(es), TransDermal, Dailypiperacillin-tazobactam 3 g-0.375 g 3.375 gram 1 EA, IV Piggyback, n1vkGjfudgstua: (1)Lactated Ringers 1,000 mL 1,000 mL, IV, 75 mL/hrPRN: (6)acetaminophen 325 mg Tab UD [F] 650 mg 2 tab(s), Oral, r9qivxiizrghj 0.083% Inh Mary 3 mL [F] 2.5 mg 3 mL, NEB, l6pyjapaabsbz CFC free 90 mcg/inh Inh Aer w/Adapt 8.5 gm [F] 180 microgram 2 puff(s), Inhalation, v0rbcrfggqjjs 30 mg/mL Inj 1 mL [F] 30 mg 1 mL, IV, i2mseovprupp 10 mg/mL preservative-free SOLN [F] 4 mg 0.4 mL, IV Push, q0ttwcljxctcacl 2 mg/mL Inj [F] 4 mg 2 mL, IV Push, q6hr Problem list: All ProblemsImpaired skin integrity / SNOMED CT 18012415 / ConfirmedProblem added on documentation of skin impairments.Smoker / IMO [id number] / ConfirmedAdded secondary to documentation in Social History.Resolved: Asthma / SNOMED CT 950899915 Histories Past Medical History: ResolvedAsthma ([id number]): Resolved. Family History: AsthmaMother Procedure history: Incision AND drainage (SNOMED CT 871667253) performed by Jose M Patten MD on 10/08/2017 at 27 Years.Comments:10/08/2017 19:32 - Magda THOMPSON, Julieta IGLESIAS AND Musa AND IRRIGATION LEFT LOWER BACK ABCESS 10 X 15 CMIncision AND drainage (SNOMED CT 587510725).Comments:10/06/2017 06:12 - Philippe Cabezas RN right hand Social History Social & Psychosocial WlhtbgRmurxnw20/26/2017 Risk Assessment: Denies Alcohol UseSubstance Abuse10/05/2017 Risk Assessment: Denies Substance UtjwpQcybfnm04/26/2017 Risk Assessment: High Risk10/05/2017 Use: Current Every [...] % HI Lymph Auto 8.2 % LOW [place] Auto 8.0 % Eos Auto 0.8 % Basophil Auto 0.4 % Neutro Absolute 12.7 E9/L HI Lymph Absolute 1.3 E9/L [place] Absolute 1.2 E9/L HI Eos Absolute 0.1 [...] on October 08, 2017 08:58 ESTEncounter info: [id number], Abdi - Sebastian, Inpatient, 10/05/2017 - . Condition: Fair. Impression [...] result and Wound Vac change on 10/12/17 [facility] Comment on above: Result Comment: Elec tronically Signed By: Sushant DC, Juan Pablo\.br\Date and Time Signed: 10/09/17 11:02 EST Progress [...] care per Wound Clinic.Will follow as needed. [facility] Comment on above: Result Comment: Elec tronically Signed By: Jose M Patten MD\.br\Date and Time Signed: 10/09/17 07:53 EST Vanco Troughon 10-09-2017 VANCOMYCIN <4 Low 10-20 [facility] Comment on above: Result Comment: Resu lts verified by dilution. Performed By: #### 1 2240604, 5669582, 46779716, 2291178, 24883080, 8826316, 0066762 ####[facility] [address] [place] [address] Dino 10-08-2017 Alanine aminotransferase (ALT) 63 Int._Unit/L High 6-46 [facility] Comment on above: Performed By: #### 1 3231534, 0604686, 36142212, 0215278, 81096715, 6297084, 5123072 ####[facility] [address] [place] [address] Navid 10-08-2017 Aspartate aminotransferase (AST) 37 Int._Unit/L Normal 5-43 [facility] Comment on above: Performed By: #### 1 8855862, 3231479, 91733934, 0639158, 91488997, 4080464, 9522819 ####[facility] [address] [place] [address] Auto Diffon 10-08-2017 Basophils Auto #/vol (Bld) 0.1 E9/L Normal 0.0-0.2 [facility] Comment on above: Order Comment: Order added by Discern Expert. Performed By: #### 1 0250854, 8231976, 74783833, 1794846, 78443493, 7056882, 6472209 ####[facility] [address] [place] [address] Basophils Auto #/vol (Bld) 0.5 % Normal 0.0-2.0 [facility] Comment on above: Order Comment: Order added by Discern Expert. Performed By: #### 1 8365167, 4949741, 75777663, 7042054, 81476723, 3632733, 8169317 ####[facility] [address] [place] [address] Eosinophils 0.9 E9/L High 0.0-0.5 [facility] Comment on above: Order Comment: Order added by Discern Expert. Performed By: #### 1 0932156, 8233744, 85170367, 9706476, 78475996, 3802704, 7756953 ####[facility] [address] [place] [address] Eosinophils/100 leukocytes 5.6 % Normal 0.0-8.0 [facility] Comment on above: Order Comment: Order added by Discern Expert. Performed By: #### 1 8922837, 3644888, 11421061, 7495247, 00383495, 3876364, 4792605 ####[facility] [address] [place] [address] Lymphocytes 1.5 E9/L Normal 1.0-4.0 [facility] Comment on above: Order Comment: Order added by Margo Expert. Performed By: #### 1 6915460, 6069422, 55726831, 4827011, 84586309, 1340214, 0923603 ####[facility] [address] [place] [address] Lymphocytes/100 leukocytes 9.3 % Low 14.0-50.0 [facility] Comment on above: Order Comment: Order added by Margo Expert. Performed By: #### 1 4144032, 6840633, 82405203, 0645025, 99820118, 2347569, 7407320 ####[facility] [address] [place] [address] Monocytes 1.9 E9/L High 0.2-1.0 [facility] Comment on above: Order Comment: Order added by Margo Expert. Performed By: #### 1 7850092, 8865879, 58850576, 6810720, 81279476, 6776620, 9063819 ####[facility] [address] [place] [address] Monocytes/100 leukocytes 12.0 % Normal 4.0-14.0 [facility] Comment on above: Order Comment: Order added by Margo Expert. Performed By: #### 1 8415242, 4445874, 99446564, 4810059, 65104079, 3491582, 4303925 ####[facility] [address] [place] [address] Neutrophils 11.5 E9/L High 2.0-7.5 [facility] Comment on above: Order Comment: Order added by Discern Expert. Performed By: #### 1 3152662, 3176826, 66720851, 7491399, 79910346, 3435640, 9966961 ####[facility] [address] [place] [address] Neutrophils/100 leukocytes 72.6 % Normal 36.0-75.0 [facility] Comment on above: Order Comment: Order added by Discern Expert. Performed By: #### 1 7952466, 2996250, 89171773, 2610303, 28038131, 9955906, 9221146 ####[facility] [address] [place] [address] BMPon 10-08-2017 Anion gap 9 mmol/L Normal 6-16 [facility] Comment on above: Performed By: #### 1 8898033, 8046940, 13728164, 3327462, 24395020, 4306244, 6425151 ####[facility] [address] [place] [address] BUN/Creatinine Ratio 9 No Units Low 10-20 [facility] Comment on above: Performed By: #### 1 0792184, 5780012, 54222644, 8581375, 66937811, 1288772, 6857689 ####[facility] [address] [place] [address] Calcium 8.2 mg/dL Low 8.9-11.1 [facility] Comment on above: Performed By: #### 1 9425020, 4731818, 90937750, 1407196, 69369810, 0143764, 4671229 ####[facility] [address] [place] [address] Chloride 103 mmol/L Normal 101-111 [facility] Comment on above: Performed By: #### 1 9852254, 6964416, 04367501, 8233261, 12147606, 8842091, 2171555 ####[facility] [address] [place] [address] CO2 28 mmol/L Normal 21-31 [facility] Comment on above: Performed By: #### 1 9328471, 0730160, 74800899, 3781906, 05393274, 7411963, 7210591 ####[facility] [address] [place] [address] Creatinine 0.8 mg/dL Normal 0.5-1.3 [facility] Comment on above: Performed By: #### 1 7271546, 8670557, 55094898, 0699839, 61300232, 4269989, 7428507 ####[facility] [address] [place] [address] Glucose mass conc 98 mg/dL Normal 55-199 [facility] Comment on above: Result Comment: If t his glucose result represents a fasting glucose, interpretation should refer to the following reference range: 55-99 mg/dL Performed By: #### 1 1794347, 4801338, 30601606, 5528649, 25371288, 9483872, 4079625 ####[facility] [address] [place] [address] Potassium molar conc 4.0 mmol/L Normal 3.5-5.3 [facility] Comment on above: Performed By: #### 1 8494664, 2284960, 48107500, 0245311, 93807834, 9881208, 6529905 ####[facility] [address] [place] [address] Sodium 136 mmol/L Normal 135-145 [facility] Comment on above: Performed By: #### 1 5265920, 7560795, 92613808, 4981408, 19403120, 9199357, 5149516 ####[facility] [address] [place] [address] Urea nitrogen 7 mg/dL Normal 5-21 [facility] Comment on above: Performed By: #### 1 0887076, 3236517, 71330137, 7794337, 77382706, 6177602, 7677520 ####[facility] [address] [place] [address] CBC w/ Auto Diffon Erythrocyte distribution width Auto Ratio (RBC) 13.4 % Normal 10.9-14.2 [facility] Comment on above: Performed By: #### 1 7438872, 5170521, 51789345, 2455185, 30111254, 5676030, 2307146 ####[place] [address] [place] [address] Erythrocytes (RBC) 3.7 E12/L Low 4.3-5.9 [facility] Comment on above: Performed By: #### 1 7747104, 5584134, 11134770, 6189880, 21412647, 8089424, 8106009 ####[place] [address] [place] [address] Hematocrit (HCT) 34.5 % Low 37.7-49.0 [facility] Comment on above: Performed By: #### 1 9094290, 3118536, 88232502, 0247179, 90688869, 1870811, 7100808 ####[place] [address] [place] [address] Hemoglobin mass conc (Bld) 12.1 g/dL Low 13.5-17.5 [facility] Comment on above: Performed By: #### 1 8243095, 3019206, 82693818, 1938229, 17752862, 5001621, 7672384 ####[facility] [address] [place] [address] MCH 32.3 pg Normal 27.0-34.0 [facility] Comment on above: Performed By: #### 1 8854127, 4120177, 08534153, 0174541, 74562471, 7173566, 2320890 ####[facility] [address] [place] [address] MCHC mass conc (RBC) 34.9 g/dL Normal 31.4-39.3 [facility] Comment on above: Performed By: #### 1 0353535, 6541103, 08866024, 8194385, 20272364, 9144246, 3874333 ####[facility] [address] [place] [address] MCV 92.4 fL Normal 80.0-100.0 [facility] Comment on above: Performed By: #### 1 0377129, 8641419, 45233933, 3490648, 17713711, 0107269, 5420040 ####[facility] [address] [place] [address] Platelet mean volume (PMV) 6.6 fL Normal 6.4-10.8 [facility] Comment on above: Performed By: #### 1 6896148, 3366320, 65187117, 5428696, 14904063, 5898429, 3794505 ####[facility] [address] [place] [address] Platelets 342.0 E9/L Normal 150.0-500. 0 [facility] Comment on above: Performed By: #### 1 0286967, 6025734, 09708985, 3834653, 24709289, 1437105, 9676580 ####[place] [place] [address] WBC (Leukocytes) 15.9 E9/L High 4.0-11.0 [facility] Comment on above: Performed By: #### 1 3907545, 3061289, 11523957, 4015646, 33698266, 0137421, 6249700 ####[facility] [address] [place] [address] Consultation Noteon 10-08-20 Consultation Note Patient: Alexx WILKES Age: 27 years Sex: Male : 1990 Associated Diagnoses: None Author: Julian Cyr M.D Chief Complaint 10/05/2017 18:24 EST pain in mid back to hip. ongoing X2 weeks. was seen [place] but was told it was just muscle spasms. xray and urin were obtained in [place]. History of Present Illness Patient with back [...] g 3.375 gram 1 EA, IV Piggyback, w0ihqvaufgtupv + Sodium Chloride 0.9% 500 mL 2 gram 2 EA, IV Piggyback, o29rjKwjukubnnh: (2)Lactated Ringers 1,000 mL 1,000 mL, IV, 125 mL/hrSodium Chloride 0.9% 2,190 mL 2,190 mL, IV, 999 mL/hrPRN: (6)acetaminophen 325 mg Tab UD [F] 650 mg 2 tab(s), Oral, g7msfhbezxmyy 0.083% Inh Mary 3 mL [F] 2.5 mg 3 mL, NEB, r8tfyapdixdgg CFC free 90 mcg/inh Inh Aer w/Adapt 8.5 gm [F] 180 microgram 2 puff(s), Inhalation, w2awjphqpbupu 30 mg/mL Inj 1 mL [F] 30 mg 1 mL, IV, j2ddmdcycxcb 10 mg/mL preservative-free SOLN [F] 4 mg 0.4 mL, IV Push, t9gdzsepijqbcph 2 mg/mL Inj [F] 4 mg 2 mL, IV Push, q6hr Problem list: All ProblemsImpaired skin integrity / SNOMED CT 96821009 / ConfirmedProblem added on documentation of skin impairments.Smoker / IMO [id number] / ConfirmedAdded secondary to documentation in Social History. Histories Past Medical History: ResolvedAsthma ([id number]): Resolved. Family History: AsthmaMother Procedure history: Incision AND drainage (478410640).Comments:10/06/2017 06:12 - Raulito THOMPSON, Philippe right hand Physical Examination Vital Signs 10/08/2017 08:26 EST Heart Rate Monitored 92 bpm 10/08/2017 08:25 EST Respiratory Rate 20 br/min 10/08/2017 08:25 EST Temperature Oral 36.9 DegC 10/08/2017 08:25 EST Systolic Blood Pressure 103 mmHg Diastolic Blood Pressure 62 mmHg 10/07/2017 23:26 EST Temperature Oral 38.6 DegC GA 10/07/2017 20:20 EST Temperature Oral 38.2 DegC HI 10/07/2017 15:00 EST Temperature Oral 36.8 DegC 10/07/2017 11:26 EST Temperature Oral 36.7 DegC 10/07/2017 07:22 EST Temperature Oral 37.2 DegC 10/07/2017 00:57 EST Temperature Oral 37.9 DegC GA General: Alert and oriented, Mild distress. Eye: [...] Results 10/08/2017 06:19 EST WBC 15.9 E9/L GA Hgb 12.1 gm/dL LOW Platelet 342.0 E9/L BUN 7 mg/dL Creatinine 0.8 mg/dL 10/07/2017 07:43 EST WBC 19.7 E9/L GA 10/06/2017 03:49 EST UA Spec Desc Clean [...] to see patient. Already consulted. . Normal [facility] Comment on above: Result Comment: Elec tronically Signed By: Julian Cyr M.D.pretty\Date and Time Signed: 10/08/17 11:13 EST ED Note-Physicianon 10-08-20 17 ED Note-Physician Patient: Alexx WILKES Age: 27 [...] hip. ongoing X2 weeks. was seen [place] but was told it was just muscle spasms. xray and urin were obtained in [place]. . History of Present Illness The patient [...] The patient stated he was seen at [facility] [place] on and he was diagnosed with muscle strain. The patient denies any IV drug abuse or any other associated symptoms. Review of Systems Additional review of systems information: All other systems reviewed and otherwise negative. Health Status Allergies: Allergic Reactions (Selected)No Known Allergies. Past Medical/ Family/ Social History Medical history: ResolvedAsthma ([id number]): Resolved.. Surgical history: No active procedure history [...] Stat collect, Collected, 10/05/17 23:08:00 EST by BISI, Stop date 10/05/17 23:08:00 EST, Lab Collect, [...] E9/L HI Lymph Abs Man 1.0 E9/L [place] Abs Man 2.6 E9/L HI Eos Abs [...] by teleradiology shows extensive subcutaneous soft tissue edema/production foreman was change throughout the back and flank [...] and Plan Diagnosis Cellulitis of lower back (WDH50-SP L03.312, Discharge, Medical) Phlegmonous cellulitis (WDX36-IH L02.91, Discharge, Medical) Hyponatremia (EVG86-LW E87.1, Discharge, Medical) Elevated liver enzymes (VCS28-WI R74.8, Discharge, Medical) Plan Condition: Improved, Stable. Disposition: Admit time 10/06/17 01:35:00, Admit to Inpatient Telemetry Unit, Luis F Benavides DO Counseled: Patient, Family, Regarding diagnosis, Regarding diagnostic results, Regarding treatment plan. [facility] Comment on above: Result Comment: Elec tronically Signed By: Melissa Mcfadden, Анна Nicole\.br\Date and Time Signed: 10/08/17 09:28 EST Interdisciplinary Note - Brett e Manageron 10-08-2017 Interdisciplinary Note - Wood Repatcher Rounding with Dr. Canchola, Marisa [facility], [place] [facility], Marcelino RN. Whiteboard updated. No family present. [...] of anticipated dc in a few days. [facility] Interdisciplinary Note - Soc ial Workeron 10-08-2017 Interdisciplinary Note - Sugar Boiler Consult received late this afternoon to order wound vac. SW spoke to CRM who will be following this weekend about need for wound vac as this SW is not familiar with how to order this as this is usually completed by wound care. SW will remain available. [facility] Main OR PACU I Recordon 09-11 Main OR PACU I Record PACU Phase I Document Type FT Summary Primary Physician: Jose M Patten MD Finalized Date/Time: 10/08/17 17:18:48 Pt. Name: CHUNG WILLOW Martins/Sex: 1990 Male Med Rec #: [id number] Physician: Анна Torres M.D. Financial #: [id number] Pt. Type: I Room/Bed: [place] [address] Admit/Disch: 10/05/17 17:35:00 - Institution: Case Times [...] By: Aixa Wolfe RN 10/08/17 17:18 Normal [facility] Progress Note-Physicianon Progress Note-Physician Patient: WILLOW [...] be discharged from PACU when criteria met. [facility] Comment on above: Result Comment: Elec tronically Signed By: Jose Juan Gomez DO\.br\Date and Time Signed: 10/08/17 15:50 EST Progress [...] mL 493 mg 0.99 EA, IV Piggyback, d97mrdfwoblpeifci-qzgdlsbzqf 3 g-0.375 g 3.375 gram 1 EA, IV Piggyback, l2mkVczpxnjfxm: (1)Lactated Ringers 1,000 mL 1,000 mL, IV, 125 mL/hrPRN: (6)acetaminophen 325 mg Tab UD [F] 650 mg 2 tab(s), Oral, x2oezbzvqgixv 0.083% Inh Mary 3 mL [F] 2.5 mg 3 mL, NEB, o0rbepdccbimg CFC free 90 mcg/inh Inh Aer w/Adapt 8.5 gm [F] 180 microgram 2 puff(s), Inhalation, s0zfszngzywcw 30 mg/mL Inj 1 mL [F] 30 mg 1 mL, IV, i5vuvkletkzt 10 mg/mL preservative-free SOLN [F] 4 mg 0.4 mL, IV Push, q5tjjiorkdndnhj 2 mg/mL Inj [F] 4 mg 2 mL, IV Push, q6hr Problem list: All ProblemsImpaired skin integrity / SNOMED CT 11537730 / ConfirmedProblem added on documentation of skin impairments.Smoker / IMO 408305 / ConfirmedAdded secondary to documentation in Social History.Resolved: Asthma / SNOMED CT 158318216, Active Problems (2)Impaired skin integrity Smoker Histories Past Medical History: ResolvedAsthma (118110953): Resolved. Family History: AsthmaMother Procedure history: Incision AND drainage (529476272).Comments:10/06/2017 06:12 - Philippe Cabezas RN right hand Social History Social & Psychosocial BemeijAkhfkrk33/26/2017 Risk Assessment: Denies Alcohol UseSubstance Abuse10/05/2017 Risk Assessment: Denies Substance HlssiAxbkjzq12/26/2017 Risk Assessment: High Risk10/05/2017 Use: Current Every [...] 10/07/2017 20:20 EST Temperature Oral 38.2 DegC GA 10/07/2017 20:19 EST Systolic Blood Pressure 116 [...] (OCT 07 20:20)Resp Rate 18 (OCT 08 11:) 18 (OCT 07 20:20) H 23 (OCT [...] are non-labored. Cardiovascular: Regular rhythm. Integumentary: Warm, Blain. Neurologic: Alert, Oriented. Review / Management Results review: Lab results 10/08/2017 06:19 EST WBC 15.9 E9/L HI RBC 3.7 E12/L LOW Hgb 12.1 gm/dL LOW Hct 34.5 % LOW MCV 92.4 fL MCH 32.3 pg MCHC 34.9 gm/dL RDW 13.4 % Platelet 342.0 E9/L MPV 6.6 fL Neutro Auto 72.6 % Lymph Auto 9.3 % LOW [place] Auto 12.0 % Eos Auto 5.6 % Basophil Auto 0.5 % Neutro Absolute 11.5 E9/L HI Lymph Absolute 1.5 E9/L [place] Absolute 1.9 E9/L HI Eos Absolute 0.9 [...] E9/L HI Lymph Abs Man 2.6 E9/L [place] Abs Man 1.4 E9/L HI Eos Abs [...] ECG interpretation: Reviewed ECG.. Condition: Stable. Plan [place] [employer]hesi[employer] (ASA) physical status classification: Class II. Anesthetic Preoperative Plan Anesthesia: General. . Anesthetic plan, risks, benefits, and alternatives discussed with the patient and/or family. Patient verbalized understanding. Risks, benefits, alternatives discussed. Questions answered. . Normal [facility] Comment on above: Result Comment: Elec tronically Signed By: Jose Juan Gomez DO\.br\Date and Time Signed: 10/08/17 14:34 EST Progress Note-Physician Patient: WILLOW WILKES Age: 27 years Sex: Male : 1990 Associated Diagnoses: None Author: Sushant DC, [place] Basic Information 27-year-old male with no significant [...] mL 493 mg 0.99 EA, IV Piggyback, b69zujdizqyozhswg-slfzqgabev 3 g-0.375 g 3.375 gram 1 EA, IV Piggyback, x7ijBzkkzwrwfa: (2)Lactated Ringers 1,000 mL 1,000 mL, IV, 125 mL/hrSodium Chloride 0.9% 2,190 mL 2,190 mL, IV, 999 mL/hrPRN: (6)acetaminophen 325 mg Tab UD [F] 650 mg 2 tab(s), Oral, t5uxyxrvxngtl 0.083% Inh Mary 3 mL [F] 2.5 mg 3 mL, NEB, o9bhreoqgorir CFC free 90 mcg/inh Inh Aer w/Adapt 8.5 gm [F] 180 microgram 2 puff(s), Inhalation, s6wyoxqnggsoh 30 mg/mL Inj 1 mL [F] 30 mg 1 mL, IV, u3wqeticjzkl 10 mg/mL preservative-free SOLN [F] 4 mg 0.4 mL, IV Push, r8nchndsbznxdcg 2 mg/mL Inj [F] 4 mg 2 mL, IV Push, q6hr Problem list: All ProblemsImpaired skin integrity / SNOMED CT 36427502 / ConfirmedProblem added on documentation of skin impairments.Smoker / IMO [id number] / ConfirmedAdded secondary to documentation in Social History. Histories Past Medical History: ResolvedAsthma (041017636): Resolved. Family History: AsthmaMother Procedure history: Incision AND drainage (SNOMED CT 639795931).Comments:10/06/2017 06:12 - Raulito THOMPSON, Philippe right hand Social History Social & Psychosocial WivyorCmvtpal69/26/2017 Risk Assessment: Denies Alcohol UseSubstance Abuse10/05/2017 Risk Assessment: Denies Substance DpbjePgkdlrt45/26/2017 Risk Assessment: High Risk10/05/2017 Use: Current Every [...] 73 (OCT 07 15:00)MAP 94 (OCT 08 11:) 69 (OCT 07 23:20) 94 (OCT 08:)SpO2 95 (OCT 08:) 95 (OCT 07 20:20) 97 (DEC 29 08:26) General: Alert and oriented, No acute [...] 72.6 % Lymph Auto 9.3 % LOW [place] Auto 12.0 % Eos Auto 5.6 % Basophil Auto 0.5 % Neutro Absolute 11.5 E9/L HI Lymph Absolute 1.5 E9/L [place] Absolute 1.9 E9/L HI Eos Absolute 0.9 [...] Delarosa MD on October 08, 2017 08:58 [facility] info: [id number], Jin George, Inpatient, 10/05/2017 - . Condition: [...] D and deep tissue culture result. Normal [facility] Comment on above: Result Comment: Elec tronically Signed By: Sushant DC, Juan Pablo\.br\Date and Time Signed: 10/08/17 11:48 EST US [...] MD Transcribed by: JENNIFFER Technologist: BRIT Normal [facility] eGFRon 10-08-2017 eGFR (black) mL/min/{1.73_m2} Normal >=59 [facility] Comment on above: Order Comment: Order added by Discern Expert. Result Comment: eGFR is race adjusted. AA=. Performed By: #### 1 5940520, 6767221, 34918198, 8889330, 16918168, 4743604, 8431077 ####[facility] [address] [place] [address] eGFR (non-black) mL/min/{1.73_m2} Normal >=59 [facility] Comment on above: Order Comment: Order added by Discern Expert. Result Comment: Cage/Vault Supervisor curt kidney disease could be indicated at eGFR's of less than 60 mL/min/1.73m2. Kidney failure is indicated at less than 15 mL/min/1.73m2. Performed By: #### 1 4057929, 6008713, 62746725, 4765258, 97222842, 0397159, 8248590 ####[facility] [address] [place] [address] .Manual Abson 10-07-2017 BASOPHILS/LEUKOCYT ES:NFR.DF:PT:BLD:Q N:MANUAL COUNT 0.0 E9/L Normal 0.0-0.2 [facility] Comment on above: Performed By: #### 1 0960178, 7595133, 64493356, 2934179, 12531677, 8385071, 1009646 ####[address] [address] EOSINOPHILS/LEUKOC YTES:NFR.DF:PT:BLD :QN:MANUAL COUNT 1.0 E9/L High 0.0-0.5 [facility] Comment on above: Performed By: #### 1 3558745, 3078884, 73102549, 5191086, 10897678, 3273032, 0366488 ####[place] [address] [place] [place] [address] LYMPHOCYTES/LEUKOC YTES:NFR.DF:PT:BLD :QN:MANUAL COUNT 2.6 E9/L Normal 1.0-4.0 [facility] Comment on above: Performed By: #### 1 8927895, 0542796, 36893722, 4198501, 09258596, 9147475, 9170109 ####[address] [place] [address] MONOCYTES/LEUKOCYT ES:NFR.DF:PT:BLD:Q N:MANUAL COUNT 1.4 E9/L High 0.2-1.0 [facility] Comment on above: Performed By: #### 1 9080430, 6914120, 51233859, 2761187, 04401530, 7914626, 3710647 ####[facility] [address] [place] [address] Neutrophils 12.4 E9/L High 2.0-7.5 [facility] Comment on above: Performed By: #### 1 0294534, 5140086, 33934326, 1154922, 61356256, 6412905, 2546654 ####[facility] [address] [place] [address] Dino 10-07-2017 Alanine aminotransferase (ALT) 65 Int._Unit/L High 6-46 [facility] Comment on above: Performed By: #### 1 2517847, 4415407, 22289635, 8297993, 33382254, 4735420, 5531671 ####[facility] [address] [place] [address] Navid 10-07-2017 Aspartate aminotransferase (AST) 45 Int._Unit/L High 5-43 [facility] Comment on above: Performed By: #### 1 1712227, 0723099, 83195059, 1448053, 36752843, 2804954, 0517873 ####[facility] [address] [place] [address] Alk Phoson 10-07-2017 Alkaline phosphatase (ALP) 185 Int._Unit/L High 21-98 [facility] Comment on above: Performed By: #### 1 3899583, 1096665, 14656682, 3755388, 69168255, 8784512, 7818347 ####[facility] [address] [place] [address] BMPon 10-07-2017 Anion gap 10 mmol/L Normal 6-16 [facility] Comment on above: Order Comment: to be drawn all together at 7:30-8:00 per nurse Performed By: #### 1 6167027, 9300183, 12226841, 1202724, 69723494, 1519009, 4212626 ####[facility] [address] [place] [address] BUN/Creatinine Ratio 10 No Units Normal 10-20 [facility] Comment on above: Order Comment: to be drawn all together at 7:30-8:00 per nurse Performed By: #### 1 4212731, 6278492, 90439381, 7142222, 88789805, 3482928, 4634275 ####[facility] [address] [place] [address] Calcium 7.9 mg/dL Low 8.9-11.1 [facility] Comment on above: Order Comment: to be drawn all together at 7:30-8:00 per nurse Performed By: #### 1 9407037, 2978560, 72405851, 6661761, 84550936, 0706085, 0251713 ####[facility] [address] [place] [address] Chloride 102 mmol/L Normal 101-111 [facility] Comment on above: Order Comment: to be drawn all together at 7:30-8:00 per nurse Performed By: #### 1 5396179, 4160785, 82332256, 5857681, 97671419, 6430443, 3168035 ####[facility] [address] [place] [address] CO2 25 mmol/L Normal 21-31 [facility] Comment on above: Order Comment: to be drawn all together at 7:30-8:00 per nurse Performed By: #### 1 0010794, 6541546, 87052240, 2770934, 04707219, 8641676, 6232207 ####[facility] [address] [place] [address] Creatinine 0.8 mg/dL Normal 0.5-1.3 [facility] Comment on above: Order Comment: to be drawn all together at 7:30-8:00 per nurse Performed By: #### 1 4534917, 2925085, 46888817, 3917101, 18189669, 6112012, 4034465 ####[facility] [address] [place] [address] Glucose mass conc 94 mg/dL Normal 55-199 [facility] Comment on above: Order Comment: to be drawn all together at 7:30-8:00 per nurse Result Comment: If t his glucose result represents a fasting glucose, interpretation should refer to the following reference range: 55-99 mg/dL Performed By: #### 1 8452333, 1416936, 37896366, 3032278, 74936914, 3469496, 3163329 ####[facility] [address] [place] [address] Potassium molar conc 3.5 mmol/L Normal 3.5-5.3 [facility] Comment on above: Order Comment: to be drawn all together at 7:30-8:00 per nurse Performed By: #### 1 8171741, 9077475, 19845139, 3163182, 98572142, 2575899, 1147998 ####[facility] [address] [place] [address] Sodium 133 mmol/L Low 135-145 [facility] Comment on above: Order Comment: to be drawn all together at 7:30-8:00 per nurse Performed By: #### 1 8422756, 4297769, 30255368, 3412782, 90907840, 4098631, 9582046 ####[facility] [address] [place] [address] Urea nitrogen 8 mg/dL Normal 5-21 [facility] Comment on above: Order Comment: to be drawn all together at 7:30-8:00 per nurse Performed By: #### 1 2435243, 8958013, 62522165, 5987761, 60082408, 1174939, 7342291 ####[facility] [address] [place] [address] CBC w/ Auto Diffon 7 Erythrocyte distribution width Auto Ratio (RBC) 13.3 % Normal 10.9-14.2 [facility] Comment on above: Performed By: #### 1 1410804, 5232100, 08653070, 0509501, 62742829, 8775491, 6888089 ####[place] [address] Erythrocytes (RBC) 3.7 E12/L Low 4.3-5.9 [facility] Comment on above: Performed By: #### 1 9803303, 9695031, 12208109, 9232122, 89712063, 6914371, 7996454 ####[address] [place] [address] Hematocrit (HCT) 34.2 % Low 37.7-49.0 [facility] Comment on above: Performed By: #### 1 0208393, 5043101, 22412756, 4788069, 83610448, 3007051, 5789517 ####[address] Hemoglobin mass conc (Bld) 11.5 g/dL Low 13.5-17.5 [facility] Comment on above: Performed By: #### 1 4431776, 7070270, 43724758, 8962353, 65590412, 7195735, 5005937 ####[address] MCH 31.0 pg Normal 27.0-34.0 [facility] Comment on above: Performed By: #### 1 8323730, 6766239, 30415199, 7154140, 00039691, 2760899, 8491385 ####[address] MCHC mass conc (RBC) 33.7 g/dL Normal 31.4-39.3 [facility] Comment on above: Performed By: #### 1 2461245, 2565014, 23392420, 8404347, 64038625, 7763238, 8355772 ####[address] MCV 92.2 fL Normal 80.0-100.0 [facility] Comment on above: Performed By: #### 1 9227986, 3205961, 38611797, 7165356, 82647678, 0467909, 5654545 ####[facility] [address] [place] [address] Platelet mean volume (PMV) 7.0 fL Normal 6.4-10.8 [facility] Comment on above: Performed By: #### 1 1959245, 2614977, 33297418, 9814035, 04104070, 9445941, 6621512 ####[facility] [address] [place] [address] Platelets 323.0 E9/L Normal 150.0-500. 0 [facility] Comment on above: Performed By: #### 1 1026229, 6586583, 30731363, 8939607, 03877434, 2189919, 4937280 ####[address] [place] [address] WBC (Leukocytes) 19.7 E9/L High 4.0-11.0 [facility] Comment on above: Performed By: #### 1 7910406, 1239284, 86906176, 9824901, 88325446, 5070300, 7054899 ####[facility] [address] [place] [address] Coding Queryon 10-07-2017 Coding Query -From: Cayetano THOMPSON, Yissel Portillo To: Jesse Davidson DO; Sent: 10/06/2017 14:29:26 EST !Subject: Coding Query Due Date/Time: 10/07/2017 14:29:[address] Davidson, Documentation Request Documentation in the medical record indicates this patient has been admitted with or diagnosed as having:SepsisThe following is also documented in the medical record:10/05 Lactic acid 7.7, then 5.1, WBC 19.712/27 T 38, HR 130, BP 128/49Based on [...] Jesse Davidson DO To: Cayetano THOMPSON, Yissel Bandar; Sent: 10/07/2017 17:43:37 ESTSubject: RE: Coding Query sepsis is supported by the high WBC and the elevated HR in addition to fever. thank you. Normal [facility] Interdisciplinary Note - Brett e Manageron 10-07-2017 Interdisciplinary Note - Wood Repatcher Rounding with Dr. Davidson, Marisa [facility], Trey formerly [facility], Maryann RN. Whiteboard updated. No family present. Dr. Cyr to see tomorrow. Pt. in isolation. Pt. aware of plan to stay today and Dr. Cyr to see tomorrow. Normal [facility] Manual Diffon 10-07-2017 BASOPHILS:NCNC:PT: BLD:QN:MANUAL COUNT 0 % Normal 0-2 [facility] Comment on above: Order Comment: Order Added by Discern Expert. Performed By: #### 1 9667772, 8321205, 30548308, 5327996, 15760601, 0611416, 1192598 ####[facility] [address] [place] [address] Blood morphology Normal Normal [facility] Comment on above: Order Comment: Order Added by Discern Expert. Performed By: #### 1 8700693, 0183405, 25916886, 8306473, 88459005, 8352592, 5777391 ####[facility] [address]/[place] [address] DOHLE BODY:PRTHR:PT:BLD: ORD:MICROSCOPY.LIG HT Present Normal [facility] Comment on above: Order Comment: Order Added by Discern Expert. Performed By: #### 1 9031516, 2493239, 48429106, 2426864, 39556030, 5874879, 9846035 ####[address] [place] [address] EOSINOPHILS:NCNC:P T:BLD:QN:MANUAL COUNT 5 % Normal 0-8 [facility] Comment on above: Order Comment: Order Added by Discern Expert. Performed By: #### 1 8884206, 0682005, 42153415, 8305572, 30051639, 7095546, 2516612 ####[address] [place] [address] LYMPHOCYTES:NCNC:P T:BLD:QN:MANUAL COUNT 13 % Low 14-50 [facility] Comment on above: Order Comment: Order Added by Discern Expert. Performed By: #### 1 5568578, 2564199, 33231556, 2491682, 01036317, 1405965, 5563881 ####[address] [address] MONOCYTES:NCNC:PT: BLD:QN:MANUAL COUNT 7 % Normal 4-14 [facility] Comment on above: Order Comment: Order Added by Discern Expert. Performed By: #### 1 8403314, 2165164, 27193974, 4464550, 52391176, 2517032, 8553352 ####[address] [place] [address] Neutrophils band/100 leukocytes 12 % High 0-10 [facility] Comment on above: Order Comment: Order Added by Discern Expert. Performed By: #### 1 5808574, 8137335, 25027317, 1544226, 54671377, 0554981, 7299956 ####[address] [place] [address] NEUTROPHILS.SEGMEN RENETTA:NCNC:PT:BLD:QN :MANUAL COUNT 63 % Normal 36-75 [facility] Comment on above: Order Comment: Order Added by Discern Expert. Performed By: #### 1 9258057, 6686228, 72819878, 8113837, 06301763, 4313009, 5675890 ####[address] [address] PLATELETS.LARGE:KS THR:PT:BLD:ORD:LARISA ROSCOPY.LIGHT Present Normal [facility] Comment on above: Order Comment: Order Added by Discern Expert. Performed By: #### 1 8016441, 2257746, 10604854, 8158218, 78412271, 4357905, 3638447 ####[facility] [address] [place] [address] Toxic Gran Present Normal [facility] Comment on above: Order Comment: Order Added by Discern Expert. Performed By: #### 1 1506996, 8742472, 12195842, 2871839, 91125908, 8485215, 6423467 ####[facility] [address] [place] [address] Progress Note-Physicianon Progress Note-Physician Patient: WILLOW WILKES [...] g 3.375 gram 1 EA, IV Piggyback, p6qyolfkcyduwc + Sodium Chloride 0.9% 500 mL 2 gram 2 EA, IV Piggyback, j33imYvkyvndrdh: (2)Sodium Chloride 0.9% 1,000 mL 1,000 mL, IV, 125 mL/hrSodium Chloride 0.9% 2,190 mL 2,190 mL, IV, 999 mL/hrPRN: (6)acetaminophen 325 mg Tab UD [F] 650 mg 2 tab(s), Oral, l9ptkikqngzbt 0.083% Inh Mary 3 mL [F] 2.5 mg 3 mL, NEB, i1oeyvwockgjd CFC free 90 mcg/inh Inh Aer w/Adapt 8.5 gm [F] 180 microgram 2 puff(s), Inhalation, x0rmmohwogujv 30 mg/mL Inj 1 mL [F] 30 mg 1 mL, IV, z0qbesbveyzw 10 mg/mL preservative-free SOLN [F] 2 mg 0.2 mL, IV Push, u0fteseifbvihjr 2 mg/mL Inj [F] 4 mg 2 mL, IV Push, q6hr Problem list: All ProblemsImpaired skin integrity / SNOMED CT 57712931 / ConfirmedProblem added on documentation of skin impairments.Smoker / IMO 062758 / ConfirmedAdded secondary to documentation in Social [...] 07:22) 73 (OCT 07 15:00)MAP 81 (OCT 07:26) 69 (OCT 07 07:22) 81 (OCT 07:26)SpO2 96 (OCT 07 15:00) 95 (OCT 07 00:58) 99 (OCT 07:26) General: Alert and oriented, Mild distress. Respiratory: [...] E9/L HI Lymph Abs Man 2.6 E9/L [place] Abs Man 1.4 E9/L HI Eos Abs [...] officially consult surgery for possible I&D Normal [facility] Comment on above: Result Comment: Elec tronically Signed By: Jesse Davidson DO\.br\Date and Time Signed: 10/07/17 16:33 EST Vanco Troughon 10-07-2017 VANCOMYCIN 13 microgram/mL Normal 10-20 [facility] Comment on above: Performed By: #### 1 7648657, 6100977, 39259252, 8603545, 90619850, 9083605, 6845718 ####[facility] [address] [place] [address] eGFRon 10-07-2017 eGFR (black) mL/min/{1.73_m2} Normal >=59 [facility] Comment on above: Order Comment: Order added by Discern Expert. Result Comment: eGFR is race adjusted. AA=. Performed By: #### 1 0953258, 8844748, 97018312, 9515619, 97342182, 0718661, 1714892 ####[facility] [address] [place] [address] eGFR (non-black) mL/min/{1.73_m2} Normal >=59 [facility] Comment on above: Order Comment: Order added by Discern Expert. Result Comment: Cage/Vault Supervisor curt kidney disease could be indicated at eGFR's of less than 60 mL/min/1.73m2. Kidney failure is indicated at less than 15 mL/min/1.73m2. Performed By: #### 1 8175507, 1367626, 93808018, 4073517, 91419318, 7826854, 7435653 ####[facility] [address] [place] [address] .Manual Abson 10-06-2017 BASOPHILS/LEUKOCYT ES:NFR.DF:PT:BLD:Q N:MANUAL COUNT 0.0 E9/L Normal 0.0-0.2 [facility] Comment on above: Performed By: #### 1 4670248, 3306949, 77646757, 4326660, 63754574, 8195425, 6902158 ####[facility] [address] [place] [address] EOSINOPHILS/LEUKOC YTES:NFR.DF:PT:BLD :QN:MANUAL COUNT 0.0 E9/L Normal 0.0-0.5 [facility] Comment on above: Performed By: #### 1 3584352, 4453603, 72250373, 6312008, 30545665, 4315474, 8121988 ####[facility] [address] [place] [address] LYMPHOCYTES/LEUKOC YTES:NFR.DF:PT:BLD :QN:MANUAL COUNT 1.0 E9/L Normal 1.0-4.0 [facility] Comment on above: Performed By: #### 1 6528026, 0110762, 02646761, 0837643, 43336673, 8346566, 9915271 ####[address] [place] [address] MONOCYTES/LEUKOCYT ES:NFR.DF:PT:BLD:Q N:MANUAL COUNT 2.6 E9/L High 0.2-1.0 [facility] Comment on above: Performed By: #### 1 2807780, 8958004, 89705681, 9606087, 17367722, 8948294, 9762045 ####[address] [place] [address] Neutrophils 15.4 E9/L High 2.0-7.5 [facility] Comment on above: Performed By: #### 1 2983355, 0719005, 80521454, 0094922, 12003615, 5564876, 1969595 ####[address] CBC w/ Auto Diffon Erythrocyte distribution width Auto Ratio (RBC) 13.4 % Normal 10.9-14.2 [facility] Comment on above: Performed By: #### 1 8811242, 1721190, 94749821, 3672152, 38090129, 1890969, 5215049 ####[address] [place] [address] Erythrocytes (RBC) 4.1 E12/L Low 4.3-5.9 [facility] Comment on above: Performed By: #### 1 8351683, 0183945, 89875181, 0306317, 93782827, 8507448, 6299211 ####[address] [place] [address] Hematocrit (HCT) 37.7 % Normal 37.7-49.0 [facility] Comment on above: Performed By: #### 1 0799946, 9601984, 45130358, 8584489, 40174448, 4476666, 9452562 ####[address] [place] [address] Hemoglobin mass conc (Bld) 13.0 g/dL Low 13.5-17.5 [facility] Comment on above: Performed By: #### 1 1036563, 3015029, 51129951, 1861057, 27830693, 1610173, 0865211 ####[place] [address] MCH 31.6 pg Normal 27.0-34.0 [facility] Comment on above: Performed By: #### 1 9659789, 8672877, 24686921, 7684269, 78320483, 7574201, 1712896 ####[address] [address] MCHC mass conc (RBC) 34.5 g/dL Normal 31.4-39.3 [facility] Comment on above: Performed By: #### 1 8527839, 1615726, 79536412, 9243296, 02242989, 8674738, 8431250 ####[place] [address] MCV 91.5 fL Normal 80.0-100.0 [facility] Comment on above: Performed By: #### 1 1856655, 4685262, 13816728, 8009175, 88002872, 2316404, 4637396 ####[place] [address] Platelet mean volume (PMV) 7.7 fL Normal 6.4-10.8 [facility] Comment on above: Performed By: #### 1 5245090, 9452239, 00831971, 0421696, 47452796, 0528509, 7932202 ####[place] [address] Platelets 309.0 E9/L Normal 150.0-500. 0 [facility] Comment on above: Performed By: #### 1 1317996, 0264697, 21780228, 5044574, 59869288, 0309114, 6413760 ####[facility] [address] [place] [address] WBC (Leukocytes) 19.7 E9/L High 4.0-11.0 [facility] Comment on above: Performed By: #### 1 2334784, 6290542, 79560281, 0566750, 08878325, 2179312, 0096763 ####[address] [place] [address] CMPon 10-06-2017 Alanine aminotransferase (ALT) 61 Int._Unit/L High 6-46 [facility] Comment on above: Performed By: #### 1 5027443, 6868232, 35181951, 0004175, 79757072, 9861475, 6331851 ####[address] [address] Albumin 0.7 g/dL Low 1.1-2.2 [facility] Comment on above: Performed By: #### 1 6051543, 4473988, 30431092, 1879420, 57161093, 2156918, 8013656 ####[address] [address] Albumin 2.8 g/dL Low 3.3-5.0 [facility] Comment on above: Performed By: #### 1 2012702, 0083407, 64250201, 2279861, 49195479, 0968085, 7781662 ####[address] [address] Alkaline phosphatase (ALP) 147 Int._Unit/L High 21-98 [facility] Comment on above: Performed By: #### 1 5811080, 9050526, 22267795, 1572932, 23786209, 1896347, 4682624 ####[facility] [address] [place] [address] Anion gap 13 mmol/L Normal 6-16 [facility] Comment on above: Performed By: #### 1 2076092, 1056845, 87500127, 4612811, 04121968, 9794609, 8066713 ####[facility] [address] [place] [address] Aspartate aminotransferase (AST) 49 Int._Unit/L High 5-43 [facility] Comment on above: Performed By: #### 1 1726146, 3865570, 45280398, 4481213, 04830007, 0810379, 0401742 ####[facility] [address] [place] [address] Bilirubin (total) 1.0 mg/dL Normal 0.0-1.1 [facility] Comment on above: Performed By: #### 1 2959018, 0302361, 53878964, 1426987, 72779278, 4641710, 1909242 ####[facility] [address] [place] [address] BUN/Creatinine Ratio 14 No Units Normal 10-20 [facility] Comment on above: Performed By: #### 1 3912580, 4023467, 59244044, 4249812, 31694377, 5154967, 0145509 ####[facility] [address] [place] [address] Calcium 8.5 mg/dL Low 8.9-11.1 [facility] Comment on above: Performed By: #### 1 3417695, 4300679, 07117820, 8367246, 47049452, 4609254, 2980209 ####[facility] [address] [place] [address] Chloride 93 mmol/L Low 101-111 [facility] Comment on above: Performed By: #### 1 0571160, 5681398, 82405705, 7722793, 86572293, 8973758, 6621323 ####[facility] [address] [place] [address] CO2 25 mmol/L Normal 21-31 [facility] Comment on above: Performed By: #### 1 2950564, 7311768, 02245259, 2935697, 70170488, 8636522, 8365514 ####[facility] [address] [place] [address] Creatinine 0.9 mg/dL Normal 0.5-1.3 [facility] Comment on above: Performed By: #### 1 2025006, 0048937, 46890293, 1170110, 96809973, 8652427, 3052883 ####[facility] [address] [place] [address] Globulin 3.8 g/dL Normal 1.4-4.0 [facility] Comment on above: Performed By: #### 1 3162406, 9586171, 23079518, 5262276, 90982310, 4850698, 8972495 ####[facility] [address] [place] [address] Glucose mass conc 107 mg/dL Normal 55-199 [facility] Comment on above: Result Comment: If t his glucose result represents a fasting glucose, interpretation should refer to the following reference range: 55-99 mg/dL Performed By: #### 1 9332382, 0494529, 38490698, 3903889, 57446486, 8823253, 0487489 ####[facility] [address] [place] [address] Potassium molar conc 4.1 mmol/L Normal 3.5-5.3 [facility] Comment on above: Performed By: #### 1 6037184, 5313680, 69581245, 5375662, 22657558, 1805728, 3840498 ####[facility] [address] [place] [address] Protein 6.6 g/dL Normal 6.0-7.8 [facility] Comment on above: Performed By: #### 1 5153696, 5062914, 74042812, 6349638, 85295384, 8158427, 3805992 ####[facility] [address] [place] [address] Sodium 127 mmol/L Low 135-145 [facility] Comment on above: Performed By: #### 1 8391482, 7443430, 92259736, 4696925, 27781496, 0528723, 1630615 ####[facility] [address] [place] [address] Urea nitrogen 13 mg/dL Normal 5-21 [facility] Comment on above: Performed By: #### 1 5443053, 2272231, 16975394, 8496293, 01289399, 4655358, 1497261 ####[facility] [address] [place] [address] ED Clinical Summaryon 2016 ED Clinical Summary [address] [address] ED Clinical SummaryPerson Information Name: Juan Carlos [facility]ILKES[facility] Age: 27 Years : 1990 12:00 AM Sex: Male Language:Dutch PCP: Myra Middleton MD Marital Status:Single Visit Id: Visit Reason:Increased heart rate; Nausea; Dizziness; Pain in back; CELLULITIS, PHLEGMON, TACHYCARDIA Speciality: Acuity: 3 Enc Type: Inpatient Med Service: Medical Arrival:10/05/2017 5:35 PM Discharge: LOS: 000 11:42 Checkin:10/05/2017 5:35 PM Checkout: 10/06/2017 5:17 AM Dispo Type: Admitted as IP to this [facility] EVENTS:Event Name Event Status Request Date/Time Start [...] AM Patient Care Request 10/06/2017 4:41 AM ADDRESS:[address] [place] [address] [phone] [facility] DOC NOTES: MEDICAL INFORMATION: Prescriptions Given:PATIENT EDUCATION INFORMATION: Instructions: Follow up:DIAGNOSIS: Normal [facility] ED Patient Education Noteon 10-06-2017 ED Patient Education Note Patient Education Materials Follows: Normal [facility] ED Patient Summaryon 017 ED Patient Summary (Inserted Image. La ble to display) [place] [id number] Patient Discharge Instructions Person Information Name: WILLOW WILKES Age: 27 Years Date: 10/05/2017 5:35 PMDischarge Diagnosis: Primary Care Physician: Myra Middleton MD Provider InformationPrimary Provider: Анна Torres M.D.siciyeimy Jacker Feeder:None The exam and treatment you received in the Emergency Department were for an urgent problem and are not intended as complete care. It is important that you follow up with a doctor, nurse practitioner, or physician?s speech correction assistant for ongoing care. If your symptoms [...] Antecubital Diana Sodium Chloride 0.9% intravenous solution 500.00 mL Initial Volume 999.00 mL/hr IV Left Antecubital Diana Sodium Chloride 0.9% intravenous solution 1000.00 mL Initial Volume 999.00 mL/hr IV Left Antecubital Diana morphine 6.00 mg IV Push Left Antecubital Diana morphine 4.00 mg IV Push Left Antecubital [place] vancomycin 1.50 gram IV Piggyback Left Antecubital [place] piperacillin-tazobactam 3.38 gram IV Piggyback Left Antecubital [place] hydromorphone 1.00 mg IV Push Left Antecubital Diana Medication Information:Comment: Pharmacy Information: Thank you for choosing [facility] Patient Education Materials: CHUNG Bustamante RYAN , have received the following patient education materials/instructions and have verbalized understanding: Patient Education Materials: Follow-up Instructions: Prescriptions: Patient Signature Date Clinician/Nurse Signature Date 10/06/17 05:17:22 [facility] History and Physicalon 10-06 History and Physical Patient: WILLOW WILKES Age: 27 years Sex: Male : 1990 Associated Diagnoses: None Author: Jesse Davidson DO Chief Complaint 10/05/2017 18:24 EST pain in mid back to hip. ongoing X2 weeks. was seen in [place] but was told it was just muscle spasms. xray and urin were obtained in [place]. History of Present Illness 27 Y/O presents [...] g 3.375 gram 1 EA, IV Piggyback, o7vhcbesvmptsw + vancomycin + Sodium Chloride 0.9% 500 mL 1,750 mg, IV Piggyback, g52vbMakfhrcnzy: (2)Sodium Chloride 0.9% 1,000 mL 1,000 mL, IV, 125 mL/hrSodium Chloride 0.9% 2,190 mL 2,190 mL, IV, 999 mL/hrPRN: (2)morphine 2 mg/mL preservative-free SOLN [F] 2 mg 1 mL, IV Push, f2kgqlngvytebdx 2 mg/mL Inj [F] 4 mg 2 mL, IV Push, q6hr Problem list: All ProblemsSmoker / IMO [id number] / ConfirmedAdded secondary to documentation in Social History., Active Problems (1)Smoker Histories Past Medical History: ResolvedAsthma ([id number]): Resolved. Family History: AsthmaMother Procedure history: Incision AND drainage ([id number]).Comments:10/06/2017 06:12 - Philippe Cabezas RN right hand Social History Social & Psychosocial AzesflFxmjcle00/26/2017 Risk Assessment: Denies Alcohol UseSubstance Abuse10/05/2017 Risk Assessment: Denies Substance FkiuqLyszauq15/26/2017 Risk Assessment: High Risk10/05/2017 Use: Current Every [...] 03:27) 73 (OCT 06 07:30)SpO2 94 (OCT 06:31) 94 (OCT 06:31) 100 (OCT 06 01:43) General: Alert and [...] E9/L HI Lymph Abs Man 1.0 E9/L [place] Abs Man 2.6 E9/L HI Eos Abs [...] the need for cessation- DVT proph: . AmbulationWill sol require more than 2 MN's to treat the above Normal [facility] Comment on above: Result Comment: Elec tronically Signed By: Jesse Davidson DO\.br\Date and Time Signed: 10/06/17 12:53 EST Interdisciplinary Note - Brett e Manageron 10-06-2017 Interdisciplinary Note - Wood Repatcher CRM spoke with pt at bedside, white board updated, no family present. Pt states no PCP, list was provided at bedside. Pt understands plan is stay today, continue IV antibiotics, fluids, pain medication. Pt denies needs. Normal [facility] Lactic Acidon 10-06-2017 LACTATE:MCNC:PT:SE R/PLAS:QN: 5.1 mg/dL Normal 4.5-19.8 [facility] Comment on above: Performed By: #### 2 [id number] ####[facility] [address] [place] [address] LACTATE:MCNC:PT:SE R/PLAS:QN: 7.7 mg/dL Normal 4.5-19.8 [facility] Comment on above: Performed By: #### 1 [id number], 5369554, 94952157, 3608199, 98247138, 9170916, 6361344 ####[facility] [address] [place] [address] Manual Diffon 10-06-2017 BASOPHILS:NCNC:PT: BLD:QN:MANUAL COUNT 0 % Normal 0-2 [facility] Comment on above: Order Comment: Order Added by Discern Expert. Performed By: #### 1 0862932, 7840161, 31580491, 7004718, 72778759, 8617297, 4974070 ####[facility] [address] [place] [address] Blood morphology Normal Normal [facility] Comment on above: Order Comment: Order Added by Discern Expert. Performed By: #### 1 1436333, 4394723, 26126975, 9563450, 44663723, 6500893, 2366006 ####[facility] [address] [place] [address] EOSINOPHILS:NCNC:P T:BLD:QN:MANUAL COUNT 0 % Normal 0-8 [facility] Comment on above: Order Comment: Order Added by Margo Expert. Performed By: #### 1 8030338, 0480222, 01868834, 4869109, 22250034, 6329775, 9765576 ####[facility] [address] [place] [address] LYMPHOCYTES:NCNC:P T:BLD:QN:MANUAL COUNT 5 % Low 14-50 [facility] Comment on above: Order Comment: Order Added by Margo Expert. Performed By: #### 1 0488926, 1512534, 93112093, 5178250, 17580066, 0889340, 6640114 ####[place] [place] [address] MONOCYTES:NCNC:PT: BLD:QN:MANUAL COUNT 13 % Normal 4-14 [facility] Comment on above: Order Comment: Order Added by Margo Expert. Performed By: #### 1 1713210, 2830652, 97943427, 3477623, 35434189, 4181911, 9248187 ####[facility] [address] [place] [address] Neutrophils band/100 leukocytes 4 % Normal 0-10 [facility] Comment on above: Order Comment: Order Added by Margo Expert. Performed By: #### 1 4523767, 2986670, 87471553, 3015977, 70232190, 3996906, 4320809 ####[facility] [address] [place] [address] NEUTROPHILS.SEGMEN RENETTA:NCNC:PT:BLD:QN :MANUAL COUNT 78 % High 36-75 [facility] Comment on above: Order Comment: Order Added by Margo Expert. Performed By: #### 1 5591295, 6309556, 63405382, 8850483, 23729078, 6708052, 7057120 ####[facility] [address] [place] [address] PT & PTTon 10-06-2017 aPTT 30.1 second(s) Normal 25.1-36.5 [facility] Comment on above: Result Comment: Hepa rin therapeutic range (represented by Anti-Factor Xa activity of 0.2 - 0.4 U/mL) corresponds to PTT of 53.9 - 87.4 sec. Performed By: #### 1 1846585, 9971586, 85650500, 9840364, 42504109, 6040330, 6125720 ####[facility] [address] [place] [address] INR Coag RelTime (PPP) 1.2 {INR} Invalid Interpretation Code [facility] Comment on above: Result Comment: INR results are specifically intended to assess patients stabilized on long-term Anticoagulation therapy suggested INR?s ?Less Intensive Anticoagulation? 2.0 ? 3.0Conventional Range 3.0 ? 4.5 Performed By: #### 1 4911580, 9088366, 79833561, 7659309, 34560372, 1491885, 3560733 ####[facility] [address] [place] [address] Prothrombin time (PT) Coag time (PPP) 13.3 second(s) High 10.2-12.9 [facility] Comment on above: Performed By: #### 1 6114849, 6947977, 81381484, 7192854, 63540902, 1879656, 0490440 ####[facility] [address] [place] [address] Progress Note-Nurseon 2016 Progress Note-Nurse 2231 - Dr Torres at [id number] - Notified Dr. Torres pt requesting more pain medication.0003 - At radiology.0135 - Pt resting in bed, IVF's and antibiotics infusing. Pt requesting more pain medication. Dr Torres notified. Waiting for pain medications to be ordered.0139 - Dr. Torres aware that pt requesting more pain medication.0309 - Pt revitalized, BP is 98/50, pt remains in 8/10 lower back pain due to celluitis, notified Dr. Torres, per Dr. Torres give another 500 ml IVF bolus and then recheck BP for possibly more pain medication.17 - This nurse called and gave report to JAY StaleyDoretha Staley with no further questions. Pt ready to transfer upstairs to room 321S.8137 ----time clarification for last note above Normal [facility] UA With Cult Reflexon 2016 BACTERIA:PRTHR:PT: URINE SED:ORD:MICROSCOPY .LIGHT TRACE Normal Trace [facility] Comment on above: Performed By: #### 1 1487161 ####[facility] [address] [place] [address] Bilirubin Ql (U) Negative Normal Negative [facility] Comment on above: Performed By: #### 1 5965615 ####[facility] [address] [place] [address] COLOR:TYPE:PT:URIN E:NOM:AUTO YELLOW Normal Yellow [facility] Comment on above: Performed By: #### 1 1173257 ####[address] [address] Erythrocytes (RBC) 0-3 Normal 0-3 [facility] Comment on above: Performed By: #### 1 2119324 ####[address] [address] GLUCOSE:MCNC:PT:UR INE:QN:TEST STRIP Negative Normal Negative [facility] Comment on above: Performed By: #### 1 6040108 ####[address] [address] KETONES:MCNC:PT:UR INE:QN:TEST STRIP TRACE Abnormal Negative [facility] Comment on above: Performed By: #### 1 1249850 ####[address] [address] LEUKOCYTES:PRTHR:P T:URINE:ORD:AUTOMA RENETTA Negative Normal Negative [facility] Comment on above: Performed By: #### 1 7478838 ####[facility] [address] [place] [address] UA Spec Desc Clean Catch Normal [facility] Comment on above: Performed By: #### 1 8328239 ####[facility] [address] [place] [address] Urine, clarity CLEAR Normal Clear [facility] Comment on above: Performed By: #### 1 8389228 ####[facility] [address] [place] [facility] [place] [address] Urine, hemoglobin presence Negative Normal Negative [facility] Comment on above: Performed By: #### 1 6431378 ####[facility] [address] [place] [facility] [address] Urine, leukocytes in sedmiment 0-5 Normal 0-5 [facility] Comment on above: Performed By: #### 1 2885949 ####[facility] [address] [place] [address] Urine, mucus presence in sediment TRACE Normal [facility] Comment on above: Performed By: #### 1 2010765 ####[facility] [address] [place] [address] Urine, nitrite presence Negative Normal Negative [facility] Comment on above: Performed By: #### 1 8648008 ####[facility] [address] [place] [address] Urine, pH 7.0 [pH] Invalid Interpretation Code 5.0-9.0 [facility] Comment on above: Performed By: #### 1 8819904 ####[facility] [address] [place] [address] Urine, protein 1+ Abnormal Negative [facility] Comment on above: Performed By: #### 1 9399771 ####[facility] [address] [place] [address] Urine, specific gravity 1.010 Invalid Interpretation Code 1.005-1.03 0 [facility] Comment on above: Performed By: #### 1 7131919 ####[facility] [address] [place] [facility] [address] Urine, squamous cells in sediment 0-2 Normal 0-2 [facility] Comment on above: Performed By: #### 1 3963017 ####[facility] [address] [place] [facility] [address] Urine, urobilinogen 1.0 {Aleksandr'U}/dL Normal 0.0-1.0 [facility] Comment on above: Performed By: #### 1 1533578 ####[facility] [address] [place] [address] XR Chest 2 Viewson 7 XR Chest [...] MD Transcribed by: JENNIFFER Technologist: FLOYD Normal [facility] eGFRon 10-06-2017 eGFR (black) mL/min/{1.73_m2} Normal >=59 [facility] Comment on above: Order Comment: Order added by Discern Expert. Result Comment: eGFR is race adjusted. AA=. Performed By: #### 1 5052781, 7742308, 25589949, 5846929, 87883542, 2242399, 2598956 ####[address] [place] [address] eGFR (non-black) mL/min/{1.73_m2} Normal >=59 [facility] Comment on above: Order Comment: Order added by Discern Expert. Result Comment: Cage/Vault Supervisor curt kidney disease could be indicated at eGFR's of less than 60 mL/min/1.73m2. Kidney failure is indicated at less than 15 mL/min/1.73m2. Performed By: #### 1 3584819, 4313306, 47712808, 6532161, 95049684, 3200413, 9193401 ####[facility] [address] [place] [address] Coding Summaryon 08-17-2017 Coding Summary CODING DATE: [facility] STATUS: Home PAYOR: Medicaid HMO ADMIT [...] Verma Revised Date Saved: 06/07/2017 02:49 pm [facility] Coding Summary CODING DATE: [facility] STATUS: Home PAYOR: Medicaid HMO ADMIT [...] Verma Revised Date Saved: 06/07/2017 02:48 pm [facility] Coding Summaryon 08-12-2017 Coding Summary CODING DATE: [facility] STATUS: Home PAYOR: Medicaid HMO ADMIT [...] Mira Verma Date Saved: 08/12/2017 12:26 pm [facility] Coding Summary CODING DATE: [facility] STATUS: Home PAYOR: Medicaid HMO ADMIT [...] Verma' Date Saved: 08/12/2017 12:25 pm Normal [facility] ED Clinical Summaryon 2016 ED Clinical Summary [facility] - Emergency [address] [place], [place] [address] ed Clinical SummaryPERSON INFORMATIONName: WILLOW WILKES Age: 27 Years Sex: MALEDOB: [birth year] MRN: Acct#:Visit Reason: Back pain; BACK PAIN Arrival:08/05/17 20:28:00 Discharge: 08/05/17 22:21:00LOS: 000 01:53 Check In: 08/05/17 20:28:00 Checkout:08/05/17 22:21:00Address:[address] [address]KBX: Provider, NonePROVIDER INFORMATIONProvider Role Assigned UnassignedNeeraj Raphael [...] Back Pain, AdultFollow-Up:With: Address: When:ANJU CROCKER [address] [facility], [address] [place] [id number] Business (1) Within 3 to 5 daysComments:Diagnosis [...] questions.[facility] Address: When:None Provider Within 3 to 5 daysDIAGNOSIS:Accidental fall; L4-L5 disc bulge; Lumbar back pain with radiculopathy affecting right lower extremityComment: [facility] ED Note - Otheron 08-06-2017 ED Note - Other In patients chart to check if items are scanned in. [Electronically Signed on: 08/06/2017 07:18 EDT] Judy Joe [Verified on: 08/06/2017 07:18 EDT] [facility] ED Note-Nursingon 08-06-2017 ED Note-Nursing Pt discharged home. Home care and follow-up instructions given tp pt. Pt verbalized understanding. VS are WNL. PA has spoken tp pt. 1 prescription sent home with pt. 2 prescriptions sent to [facility]. Pt ambulated self to exit. Normal [facility] ED Patient Education Noteon 08-06-2017 ED Patient [...] Document Reviewed: 05/16/2014Magaly Interactive Patient Education ?2016 [employer]Lumbosacral RadiculopathyLumbosacral radiculopathy is a condition that [...] Document Reviewed: 09/23/2015Magaly Interactive Patient Education ?2016 [employer]Back Pain, AdultBack pain is very common [...] stressful on your back to sit or inspector rough castings one place for long periods of time. Do not sit, drive, or inspector rough castings one place for more than 30 minutes [...] as directed by your health care provider. Eewd-rsr-gqbwses medicines to reduce pain and inflammation are [...] Released: 09/27/2006 Document Revised: 10/18/2015 Document Reviewed: 01/29/2015Rickyevtanner Interactive Patient Education ?2016 [employer]. Normal [facility] ED Patient Summaryon 08-06-2 017 ED Patient Summary [facility] - Emergency [address] [place] [id number] pATIENT DISCHARGE INSTRUCTIONSPatient InformationName: WILLOW WILKES Age: 27 YearsDate of : [birth year]MRN: [id number] For Visit: Back pain; BACK PAINArrival Time: 08/05/17 20:28:00Phone: Primary Care Physician: Provider, NoneAttending Physician: Luis F Hood DOComment:Visit Diagnosis:Diagnoses This Visit Accidental fall (W19.XXXA) Back pain ([id number]) L4-L5 disc bulge (M51.26) Lumbar back pain with radiculopathy affecting right lower extremity (M54.17)If you received any narcotics, sedation, or any other medication that causes drowsiness for the next 24 hours, unless otherwise directed:? Do not drive a car.? Do not operate machinery such as [employer] tools, lawn mowers, drills, sewing machines, or stoves? Avoid alcoholic beverages and drugs for allergies, nerves, or sleep? Do not make important personal or business decisions or sign any legal documentsWith: Address: When:ANJU CROCKER [address] [facility], [place] [address] Business (1) Within 3 to 5 daysComments:Diagnosis [...] any questions.[facility] Address: When:None Provider Within 3 to 5 daysMedication Information:The exam and treatment you received today in the [facility] Emergency Department were for an urgent problem and are not intended as complete care. It is important for you to follow up with a doctor, nurse practitioner, or physician?s speech correction assistant for ongoing care. If your symptoms [...] number so we can reach you if necessary.[facility] Emergency Department has provided you with a complete list of medications post discharge. Please inform your primary care nurse practitioner/provider of your visit and for further instruction on these medications. Any specific questions regarding your chronic medications and dosages should be discussed with your primary care physician(s) and/or pharmacist. [facility]-[address] [place] [address], [address] [place] [phone], [phone] (orphenadrine 100 mg oral tablet, extended release) 1 tab(s) Oral 2 times a day as needed pain for 7 Days. Refills: 0.predniSONE (predniSONE 20 mg oral tablet) 2 tab(s) Oral every day for 5 Days. Refills: 0.Printed Prescriptionsacetaminophen-hydr ocodone (Bacova 5 mg-325 mg oral tablet) 1 tab(s) [...] Released: 07/07/2006 Document Revised: 10/18/2015 Document Reviewed: 05/16/2014Rickyevtanner Interactive Patient Education ?2016 [employer].Lumbosacral RadiculopathyLumbosacral radiculopathy is a condition that involves [...] Document Reviewed: 09/23/2015Magaly Interactive Patient Education ?2016 [employer]Back Pain, AdultBack pain is very common [...] stressful on your back to sit or inspector rough castings one place for long periods of time. Do not sit, drive, or inspector rough castings one place for more than 30 minutes [...] as directed by your health care provider. Hzbb-xhp-cazcxjo medicines to reduce pain and inflammation are [...] Document Reviewed: 01/29/2015Elsevier Interactive Patient Education ?2016 [employer]. Viruses or BacteriaWhat?s got you sick?Antibiotics only [...] for Disease Control and Prevention June [address] [facility] [address] Spine Lumbar w/o Contrast on 08-05-2017 [...] changes. There is mild disc space narrowing yspoO23-F53 to L3-L4. No definite acute fracture or [...] and upon the proximal portion of the O7ltbpv root on the left, correlate clinically. There [...] ON THE LEFT, CORRELATE CLINICALLY.NILS Phillips #: [id number]: 08/06/2017T: 08/06/2017 Final Dictated by: David Ward MD SDictated DT/TM: 08/06/17 6:48Signed (Electronic Signature): David Ward MD 08/06/17 11:21 aTechnologist: [facility] ED Note - Physicianon 2016 ED Note - Physician Patient: WILLOW WILKES : 27 years Sex: MALE : [birth year]Associated Diagnoses: Lumbar back pain with radiculopathy affecting right lower extremity; Accidental fall; L4-L5 disc bulgeAuthor: Neeraj RaphaelBasic InformationAdditional information: Chief Complaint from Nursing Triage Note : Chief Hfzbxmzjb70/26/17 20:41 EDT Chief Complaint Lower back pain [...] Social HistoryMedical history:ResolvedModerate persistent asthma with exacerbation ([id number]): Resolved.Pneumonia due to other specified bacteria (02561142): Resolved.Smoker ([id number]): Resolved.Comments: -Added secondary to documentation in Social History.Pain due to dental caries (48199211): Resolved..Surgical history:Colonoscopy normal (697792880) in 2015 at 25 Years..Family history:AsthmaMotherSisterGrand father (Maternal)Cancer - unknown originGrandfather (Paternal)FibromyalgiaMotherChr onic coughMother.Social history:Social & Psychosocial NbnxlcNtzlcbu49/06/2016 Risk Assessment: Low Risk Comment: denies - 03/25/2016 14:35 - Leila Chavez LPNEmployment/Qtrlcv7303/16/2016 Risk Assessment: Low Risk03/25/2016 Status: Employed 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 I discussed them that in regards to [...] pain with radiculopathy affecting right lower extremity (AVX98-UH M54.17, Discharge, Medical)L4-L5 disc bulge (VBG52-QW M51.26, Discharge, Medical)Accidental fall (EFY66-PT W19.XXXA, Discharge, Medical)PlanCondition: Improved, Stable.Disposition: Discharged: Time 08/05/17 21:59:00, to home.Prescriptions: Launch prescriptionsPharmacy:orphenadr ine 100 mg oral tablet, extended release (Prescribe): 100 mg, 1 tab(s), PO, BID, for 7 day(s), PRN: pain, 14 tab(s), 0 Refill(s)predniSONE 20 mg oral tablet (Prescribe): 40 mg, 2 tab(s), PO, Daily, for 5 day(s), 10 tab(s), 0 Refill(s)Bacova 5 mg-325 mg oral tablet (Prescribe): 1 [...] questions.Prescriptions have been [facility] to [facility]; [facility] Provider Within 3 to 5 days.Counseled: Patient, Family, Regarding diagnosis, Regarding diagnostic results, Regarding treatment plan, Regarding prescription, Patient indicated understanding of instructions.[Electronically Signed on: 08/05/2017 22:28 EDT] Neeraj Raphael[Verified on: 08/05/2017 22:28 EDT] Neeraj Raphael [facility] ED Note-Nursingon 08-05-2017 ED Note-Nursing Pt presented to the ER with c/o Lower back. Pt states he slipped on a storage container lid and fell on his back. Pt has h/o lower back pain. Pt is awake and alert. VS are WNL. Lungs clear. Denies SOB, Chest pain, Dizziness, N/V. Respirations are regular, even, unlabored. Pt placed in gown. PA at bedside. [facility] Rad - Other Radiology Report on 08-05-2017 Rad - Other Radiology Report [id number] [facility] Coding Summaryon 06-07-2017 Coding Summary CODING DATE: 017 [facility] STATUS: Home PAYOR: Medicaid HMO ADMIT [...] terminology. Coded By: Duglas Verma' Date Saved: 06/07/2017 02:49 pm [facility] Coding Summary CODING DATE: 017 [facility] STATUS: Home PAYOR: Medicaid HMO ADMIT [...] Mira Verma Date Saved: 06/07/2017 02:48 pm [facility] ED Clinical Summaryon 2016 ED Clinical Summary [facility] - Emergency [address] [place], [place] [address] ed Clinical SummaryPERSON INFORMATIONName: WILKESWILLOW Age: 26 Years Sex: MALEDOB: [birth year] MRN: Acct#:Visit Reason: Testicular pain; Testicular pain; PELVIC/TESTICULAR PAIN/ X 1 WEEK Arrival:06/01/17 23:15:00 Discharge: 06/02/17 00:17:00LOS: 000 01:02 Check In: 06/01/17 23:15:00 Checkout:06/02/17 00:17:00Address:[address] [place] [id number]: Provider, NonePROVIDER INFORMATIONProvider Role Assigned UnassignedVargas Anthony MD ED Provider 06/01/17 23:16:06Nora Narayanan ED Nurse 06/01/17 23:23:24VITALS INFORMATIONVital Sign Triage [...] : [birth year]Associated Diagnoses: Left epididymitisAuthor: Vargas Anthony MDBasitamara InformationTime seen: Date & time 06/01/17 23:24:00.Testicular painHistory of Present Guhiwlj85-guxi-vex white male presents to the emergency room [...] recently tested negative for STDs. He reports agzr-emv-esmqxde medications have not been helping his pain [...] underwear until this resolves..Impression and PlanDiagnosisLeft epididymitis (GFT66-SJ N45.1, Discharge, Medical)PlanCondition: Improved.Disposition: Discharged: to home.Prescriptions: [...] Within 3 to 5 daysDIAGNOSIS:Left epididymitisComment: Normal [facility] ED Note - Physicianon 2016 ED Note - Physician Patient: WILLOW WILKES : 26 years Sex: MALE : [birth year]Associated Diagnoses: Left epididymitisAuthor: Vargas Anthony InformationTime seen: Date & time 06/01/17 23:24:00.Testicular painHistory of Present Ranvunv11-njye-mcf white male presents to the emergency room [...] recently tested negative for STDs. He reports ibyr-exn-nhboaqr medications have not been helping his pain [...] underwear until this resolves..Impression and PlanDiagnosisLeft epididymitis (BCD91-UH N45.1, Discharge, Medical)PlanCondition: Improved.Disposition: Discharged: to home.Prescriptions: [...] on: 06/01/2017 23:41 EDT] Vargas Anthony MD [facility] ED Note-Nursingon 06-02-2017 ED Note-Nursing Discharge and follow -up instructions reviewed with patient, including criteria/conditions for return to ED if necessary. Prescriptions (2 - sent electronically to pt's preferred pharmacy) and medication instructions also reviewed; pt verbalizes understanding of all instructions, offers no questions. Patient without c/o or s/s distress; ambulated out of ED without incidence, gait steady. [facility] ED Patient Education Noteon 06-02-2017 ED Patient [...] responded to other treatments.HOME CARE INSTRUCTIONSMedicines?? Take dhwa-udn-sawtqwh and prescription medicines only as told by [...] Released: 09/24/2001 Document Revised: 06/17/2016 Document Reviewed: 02/12/2016R[employer] Interactive Patient Education ?2016 [employer] Normal [facility] ED Patient Summaryon 017 ED Patient Summary [facility] - Emergency [id number] [id number] pATIENT DISCHARGE INSTRUCTIONSPatient InformationName: WILLOW WILKES Age: 26 YearsDate of : [birth year]MRN: [id number] Visit: Testicular pain; Testicular pain; PELVIC/TESTICULAR PAIN/ X 1 WEEKArrival Time: 06/01/17 23:15:00Phone: Primary Care Physician: Provider, NoneAttending Physician: Vargas Anthony MDComment:Visit Diagnosis:Diagnoses This Visit Left epididymitis (N45.1) Testicular pain ([id number]) Testicular pain ([id number] 042A31)If you received any narcotics, sedation, or [...] and treatment you received today in the [facility] Emergency Department were for an urgent problem and are not intended as complete care. It is important for you to follow up with a doctor, nurse practitioner, or physician?s speech correction assistant for ongoing care. If your symptoms [...] number so we can reach you if necessary.[facility] Emergency Department has provided you with a complete list of medications post discharge. Please inform your primary care nurse practitioner/provider of your visit and for further instruction on these medications. Any specific questions regarding your chronic medications and dosages should be discussed with your primary care physician(s) and/or pharmacist. [facility]ations[facility] [place] [address], [address] [place] [address] [phone], [phone] (doxycycline hyclate 100 mg oral capsule) 1 [...] responded to other treatments.HOME CARE INSTRUCTIONSMedicines?? Take ascp-ezr-zpxdblk and prescription medicines only as told by [...] Released: 09/24/2001 Document Revised: 06/17/2016 Document Reviewed: 02/12/2016[employer] Interactive Patient Education ?2016 [employer]. Viruses or BacteriaWhat?s got you sick?Antibiotics only [...] for Disease Control and Prevention June 2014 [facility] Operative Reporton 7 Operative Report MR#: [id number] [facility] Pt. Name: Willow Wilkes Room #: 0C [...] appeared to have healthy granulation tissue present. [place] was usedto minimally undermine the edges of [...] Date Dict: 04/09/2017//Katharine Pak Trans: 04/11/2017 08:21 A/Neil_JN:[id number]/ Normal [facility] Encounters Encounter Date Encounter Type Care Provider Facility Start: 06-22-2024 End: 06-23-2024 Emergency department patient visit HAYES POOL [facility] Start: 06-09-2024 End: 06-09-2024 ambulatory [facility] Start: 06-05-2024 End: 06-05-2024 ambulatory [facility] Start: 04-09-2024 End: 04-10-2024 Emergency department patient visit ROME CANALES [facility] Start: 03-03-2024 End: 03-04-2024 Emergency department patient visit WILLOW MATTA [facility] Start: 03-03-2024 End: 03-03-2024 Emergency department patient visit PLACIDO Patel [facility] Start: 12-16-2023 End: 12-16-2023 ambulatory JUSTIN ESCOBAR Not Available Start: 12-15-2023 End: 12-16-2023 Emergency department patient visit CANDELARIO ABDI [facility] Start: 11-28-2023 End: 11-29-2023 Emergency department patient visit JOSHUA PROCTOR [facility] Start: 05-27-2020 End: 05-28-2020 Patient encounter procedure PLACIDO SMITH Facility: Start: 04-05-2020 End: 04-06-2020 Patient encounter procedure PLACIDO SMITH Facility:[facility] Start: 03-24-2020 End: 03-25-2020 Patient encounter procedure LITTLE GARCIA Facility: Start: 11-11-2017 End: 11-12-2017 Ambulatory Sammie Chelly Leroyer [facility] Start: 10-28-2017 End: 10-29-2017 Ambulatory Sammie JanaeDoretha Char Facility:[facility] Start: 10-06-2017 End: 10-16-2017 Evaluation and management of inpatient Myra~[id number] UNKNOWN Kane Facility:[facility] Start: 08-06-2017 End: 08-12-2017 Ambulatory None Provider Facility:[facility] Start: 08-06-2017 End: 08-12-2017 Emergency department patient visit None Provider Facility:[facility] Start: 06-02-2017 End: 06-02-2017 Emergency department patient visit None Provider Facility:[facility] Start: 06-02-2017 End: 06-02-2017 Ambulatory Vargas Anthony Facility:[facility] Start: 04-09-2017 End: 04-10-2017 Ambulatory OVI LANGE Facility:[facility] Procedures Date Procedure Procedure Detail Performing Clinician Start: 04-09-2017 ANESTH LOWER ARM SURGERY FIDENCIO RAY Start: 04-09-2017 Debridement muscle & fascia 20 sq cm/< OVI LANGE Payers Date Payer Category Payer Private Health Insurance [id number] 2023 Unknown [id number] 2023 Unknown [id number] 2017 Unknown [id number] 1989 Unknown [id number] 2.16.84 [id number] 1989 Unknown [id number] 2.16.84 0.1.509050.3.579.2.593 1989 Unknown [id number] 2.16.84 0.1.437631.3.579.2.593 1989 Unknown [id number] 2.16.84 0.1.227863.3.579.2.1259 1989 Unknown [id number] 2.16.8 40.1.969322.3.579.2.1285 1989 Unknown [id number] 2.16.8 40.1.330525.3.579.2.1285 1989 Unknown [id number] 2.16.8 40.1.673569.3.579.2.1285 1989 Unknown [id number] 2.16.8 40.1.011508.3.579.2.1285 1989 Unknown [id number] 2.16.8 40.1.897318.3.579.2.1285 1989 Unknown [id number] 2.16.8 40.1.286676.3.579.2.1285 1989 Unknown [id number] 2.16.8 40.1.134308.3.579.2.1285 1989 Unknown [id number] 2.16.8 40.1.966351.3.579.2.1285 1989 Unknown [id number] 2.16.8 40.1.320504.3.579.2.1285 1989 Unknown [id number] 2.16.8 40.1.586623.3.579.2.1285 1989 Unknown [id number] 2.16.8 40.1.049189.3.579.2.1285 1989 Unknown [id number] 2.16.8 40.1.562104.3.579.2.1285 1989 Unknown [id number] 2.16.8 40.1.091059.3.579.2.1285 1989 Unknown [id number] 2.16.8 40.1.022421.3.579.2.[facility]1960 Unknown [id number] Summary Purpose Family History No Family History [...] section and content) DATE CREATED AUTHOR 04/04/2018 [facility] DATE CREATED AUTHOR AUTHOR'S ORGANIZ ATION 04/05/2018 [facility] DATE CREATED AUTHOR AUTHOR'S ORGANIZ ATION 04/06/2018 [facility] DATE CREATED AUTHOR AUTHOR'S ORGANIZ ATION 06/02/2020 [facility] DATE CREATED AUTHOR AUTHOR'S ORGANIZ ATION 12/17/2023 [facility] DATE CREATED AUTHOR AUTHOR'S ORGANIZ ATION [facility]/06[facility]20[facility] DATE CREATED AUTHOR AUTHOR'S ORGANIZ ATION 06/24/2024 [facility] FOR RECORDS PERTAINING TO PATIENTS WHO ARE [...] BE BASED ON THE PRIMARY CLINICAL RECORDS. [facility] [employer] [facility]. provides no warranty or guarantee of the accuracy or completeness of information in this document.
--- NOTE | 2024-07-23 20:32 | XR_ITS ---
The [address] [address] Patient Name: WILLOW WILKES MRN: [id number] date: 1990 Sex: M Assigned Patient Location: ED.MAIN Current Patient Location: Accession/Order Number: [id number] Exam Date: 07/23/2024 20:45 Report Date: 07/23/2024 22:51 At the request of: DARIAN OWENS Procedure: XR chest 1V EXAM: XR chest 1V HISTORY: shortness COMPARISON: Chest radiograph dated 04/05/2020. TECHNIQUE: One view of the chest was obtained. FINDINGS: The cardiac silhouette is normal in size. The lungs are clear. There is no significant pneumothorax or pleural effusion. No acute osseous abnormality is seen. XR/XR chest 1V IMPRESSION: 1. No acute cardiopulmonary abnormality. Electronically authenticated by: Meenakshi CUETO Date: 07/23/2024 22:51
[2024-07-23] MEDS: IPRATROPIUM/ALBUTEROL SULFATE 3 ML AMPUL.NEB IH ×2 (20:36→21:12)
[2024-07-23] MEDS: PREDNISONE 20 MG TABLET 40 MG PO (20:56)
[2024-07-23] MEDS: ALBUTEROL SULFATE 2.5 MG/3 ML VIAL NEB IH ×2 (21:09→21:12)
--- NOTE | 2024-07-23 21:13 | ED_ITS ---
HPI HPI - General Adult General Chief complaint: Shortness of Breath/Dyspnea Stated complaint: Shortness of Breath Time Seen by Provider: 07/23/24 20:25 Source: patient Mode of arrival: walk-in Limitations: no limitations History of Present Illness HPI narrative: 34-year-old chief complaint of shortness of breath. Patient has a history of asthma. He does vape. He states earlier today he ran out of his nebulizer and inhalers. He presents here with chief complaint acute exacerbation of asthma. He is able to speak full sentences. He does have slight substernal retraction, he is not hypoxic. Symptoms began earlier today. He states she has had asthma all of his life. Related Data Home Medications ?Medication ?Instructions ?Recorded ?Confirmed albuterol sulfate 2.5 mg/3 mL mg 05/14/23 (0.083 %) solution for nebulization ibuprofen 800 mg tablet mg 05/14/23 Previous Rx's ?Medication ?Instructions ?Recorded ketorolac 10 mg tablet 10 mg PO TID PRN pain #10 tabs 08/30/23 methocarbamol 750 mg tablet 750 mg PO TID PRN pain #20 tabs 08/30/23 cephalexin 500 mg capsule 500 mg PO QID 10 days #40 caps 10/02/23 albuterol sulfate 2.5 mg/3 mL 2.5 mg (3 mL) inhalation QID PRN 07/23/24 (0.083 %) solution for nebulization shortness of breath or wheezing #75 mL albuterol sulfate 90 mcg/actuation 2 inh inhalation Q6H PRN shortness 07/23/24 aerosol inhaler of breath or wheezing #8.5 grams Allergies Allergy/AdvReac Type Severity Reaction Status Date / Time No Known Drug Allergies Allergy Verified 07/23/24 20:25 Opioid HPI Opioid Management Most Recent Opioid Data: Last Pain Scale 8 08/30/23 21:00 08/30/23 Review of Systems ROS Narrative All Systems are negative except as noted/marked.All systems reviewed and otherwise negative PFSH PFSH Social History Smoking status: Heavy tobacco smoker Little interest or pleasure in doing things: not at all Feeling down, depressed, or hopeless: not at all Exam Narrative Exam Narrative: Nurses note and vital signs reviewed and patient is not hypoxic. General: The patient appears well and in no apparent distress. Patient is resting comfortably on cart. Skin: Warm, dry, no pallor noted. There is no rash noted. Head: Normocephalic, atraumatic Eye: Normal conjunctiva, no drainage, EOMI. PERRL Ears, Nose, Mouth, and Throat: oral mucosa is moist. Nares patent. Mouth without vesicles. Ear canals patent. Tm's without Erythema Cardiovascular: Regular Rate and Rhythm Respiratory: Expiratory wheeze with accessory muscle, no rales or rhonchi, patient is in mild distress,no rales or rhonchi Musculoskeletal: The patient has no evidence of calf tenderness, no pitting edema, symmetrical pulses noted bilaterally Neurological: A&O x4, normal speech Psychiatric: Cooperative Constitutional Vital Signs, click to edit/add: Last Vital Signs Temp 98 F 07/23/24 20:25 Pulse 110 H 07/23/24 20:59 Resp 20 07/23/24 20:43 BP 139/59 07/23/24 20:25 Pulse Ox 97 07/23/24 20:59 O2 Del Method Room Air 07/23/24 20:57 Course Vital Signs Vital signs: Vital Signs Temperature 98 F 07/23/24 20:25 Pulse Rate 109 H 07/23/24 20:25 Respiratory Rate 20 07/23/24 20:25 Blood Pressure 139/59 07/23/24 20:25 Pulse Oximetry 99 07/23/24 20:25 Oxygen Delivery Method Room Air 07/23/24 20:25 Temperature 98 F 07/23/24 20:25 Pulse Rate 110 H 07/23/24 20:59 Respiratory Rate 20 07/23/24 20:43 Blood Pressure 139/59 07/23/24 20:25 Pulse Oximetry 97 07/23/24 20:59 Oxygen Delivery Method Room Air 07/23/24 20:57 Medical Decision Making MDM Narrative Medical decision making narrative: Upon arrival to the emergency room patient was medicated with a DuoNeb breathing treatment and prednisone. Chest x-ray showed no acute changes or pneumonia. Patient was given a repeat albuterol treatment. He does feel better. He will be discharged home with a DuoNeb nebulizer as well as albuterol Nebules. Patient was discharged home with exacerbation instructions as well as refills on albuterol Nebules and inhaler. Patient denied any shortness of breath upon leaving. He states he feels much better. Differential Diagnosis Differential Diagnosis: asthma, shortness of breath, pneumonia Medical Records Medical records reviewed: Yes I reviewed the patient's medical records Discharge Plan Discharge Chief Complaint: Shortness of Breath/Dyspnea Clinical Impression: Asthma with acute exacerbation Patient Disposition: Home, Self-Care Time of Disposition Decision: 21:02 Condition: Good Prescriptions / Home Meds: New albuterol sulfate 2.5 mg /3 mL (0.083 %) solution for nebulization 2.5 mg inhalation QID PRN (Reason: shortness of breath or wheezing) Qty: 75 0RF albuterol sulfate 90 mcg/actuation HFA aerosol inhaler 2 inh inhalation Q6H PRN (Reason: shortness of breath or wheezing) Qty: 8.5 0RF No Action albuterol sulfate 2.5 mg /3 mL (0.083 %) solution for nebulization ibuprofen 800 mg tablet ketorolac 10 mg tablet 10 mg PO TID PRN (Reason: pain) Qty: 10 0RF Rx Instructions: DO NOT TAKE WITH IBUPROFEN methocarbamol 750 mg tablet 750 mg PO TID PRN (Reason: pain) Qty: 20 0RF cephalexin 500 mg capsule 500 mg PO QID 10 Days Qty: 40 0RF Print Language: [place] Instructions: Asthma (ED) Referrals: PLACIDO SMITH [Primary Care Provider] - 1 week
== END 2024-07-23 21:24 | disposition home or self-care (01) ==
PROVIDERS: Emergency Provider Emergency Medicine; PCP Family Medicine
DX: J45.901 Unspecified asthma with (acute) exacerbation (principal); F17.290 Nicotine dependence, other tobacco product, uncomplicated
CPT/HCPCS: 71045; 94640; 99284; J7512

== ENCOUNTER 2024-07-28 16:42 | Emergency (ER) | payer MEDICAID, SELFPAY ==
[2024-07-28 16:49] VITALS: BP 135/95; PULSE 121; TEMP 36.9; O2SAT 100; BMI 33.2
--- NOTE | 2024-07-28 17:01 | XR_ITS ---
The [address] [address] Patient Name: WILLOW WILKES MRN: [id number] date: 1990 Sex: M Assigned Patient Location: ER Current Patient Location: Accession/Order Number: [id number] Exam Date: 07/28/2024 17:10 Report Date: 07/28/2024 18:21 At the request of: JACQUI OROZCO Procedure: XR finger RT min 2V EXAM: XR finger RT min 2V HISTORY: The patient is a 34-year-old male, laceration , suspect flexor tendon laceration COMPARISON: None. FINDINGS: The right small finger is radiographically negative with no evidence of fracture, dislocation, cortical discontinuities, or other osseous or articular abnormalities. The lateral view demonstrates all of the joints are straight. No radiopaque foreign bodies are seen. XR/XR finger RT min 2V IMPRESSION: Negative. Electronically authenticated by: LARRY BAUER Date: 07/28/2024 18:21
--- NOTE | 2024-07-28 17:03 | ED_ITS ---
HPI HPI - General Adult General Chief complaint: Extremity Injury, Upper Stated complaint: LACERATION TO RIGHT HAND/FINGER Time Seen by Provider: 07/28/24 16:57 Source: patient Mode of arrival: walk-in Limitations: no limitations History of Present Illness HPI narrative: Patient is a 34-year-old male presents to the ER duration of laceration to the right hand involving the little finger. Notes mild to moderate pain at laceration. Patient states his main concern is he is unable to flex the finger. Bleeding is controlled. He is unsure of his last tetanus shot. Patient states he is currently not working and does have a history of asthma as a reason. Patient is right-hand dominant. Patient appears in no distress at bedside. Onset (ago): minute(s) Radiation: Reports non-radiation Quality: Reports burning and sharp Pain Consistency: Reports constant Relieving factors: Reports none Exacerbating factors: Reports none Related Data Home Medications ?Medication ?Instructions ?Recorded ?Confirmed albuterol sulfate 2.5 mg/3 mL mg 05/14/23 (0.083 %) solution for nebulization ibuprofen 800 mg tablet mg 05/14/23 Previous Rx's ?Medication ?Instructions ?Recorded ketorolac 10 mg tablet 10 mg PO TID PRN pain #10 tabs 08/30/23 methocarbamol 750 mg tablet 750 mg PO TID PRN pain #20 tabs 08/30/23 cephalexin 500 mg capsule 500 mg PO QID 10 days #40 caps 10/02/23 albuterol sulfate 2.5 mg/3 mL 2.5 mg (3 mL) inhalation QID PRN 07/23/24 (0.083 %) solution for nebulization shortness of breath or wheezing #75 mL albuterol sulfate 90 mcg/actuation 2 inh inhalation Q6H PRN shortness 07/23/24 aerosol inhaler of breath or wheezing #8.5 grams cephalexin 500 mg capsule 500 mg PO TID 7 days #21 caps 07/28/24 Allergies Allergy/AdvReac Type Severity Reaction Status Date / Time No Known Drug Allergies Allergy Verified 07/23/24 20:25 Opioid HPI Opioid Management Most Recent Opioid Data: Last Pain Scale 10 07/28/24 17:27 07/28/24 Last MAR Pain Assessment 07/28/24 17:27 Review of Systems ROS Constitutional Denies: fever or chills Ears, nose, mouth, and throat Denies: throat pain or neck pain Cardiovascular Denies: chest pain or palpitations Respiratory Denies: shortness of breath Gastrointestinal Denies: abdominal pain Genitourinary Denies: painful urination Musculoskeletal Denies: back pain Integumentary/Breast Denies: rash Neurological Denies: headache Psychiatric Denies: anxiety Hematologic/Lymphatic Denies: easy bruising PFSH PFSH Social History Smoking status: Heavy tobacco smoker Little interest or pleasure in doing things: not at all Feeling down, depressed, or hopeless: not at all Exam Narrative Exam Narrative: Nurse's notes and vital signs reviewed. Patient is not hypoxic. General: The patient appears well and in no apparent distress. Patient is resting comfortably on cart. Skin: Warm, dry, no pallor noted. Transverse laceration fifth digit proximal phalanx palmar aspect. No active bleeding. Head: Normocephalic, atraumatic Eye: Normal conjunctiva Respiratory: Patient is in no distress Musculoskeletal: The hand and wrist shows no obvious deformity. Laceration proximal phalanx fifth digit left wrist transverse approximately 1 cm. Patient is unable to flex the finger at the MCP joint, extension is intact at the DIP, PIP and MCP joint. The patient had tenderness noted to the laceration. sensation present radial and ulnar aspect of finger to tip, no nail injury The patient had no tenderness in the anatomical snuff box. The patient had no pain with axial loading of the thumb. Pulses are intact at brachial and radial 2+. There was no deficit at the elbow or shoulder. The patient has normal capillary refill to all distal digits. The patient has no evidence of cyanosis or mottling. The patient is able to flex and extend all digits without difficulty. Neurological: A&O x4, normal sensory, normal motor Psychiatric: Cooperative Constitutional Vital Signs, click to edit/add: Last Vital Signs Temp 98.5 F 07/28/24 16:49 Pulse 121 H 07/28/24 16:49 Resp 18 07/28/24 16:49 BP 135/95 H 07/28/24 16:49 Pulse Ox 100 07/28/24 16:49 Course Vital Signs Vital signs: Vital Signs Temperature 98.5 F 07/28/24 16:49 Pulse Rate 121 H 07/28/24 16:49 Respiratory Rate 18 07/28/24 16:49 Blood Pressure 135/95 H 07/28/24 16:49 Pulse Oximetry 100 07/28/24 16:49 Temperature 98.5 F 07/28/24 16:49 Pulse Rate 121 H 07/28/24 16:49 Respiratory Rate 18 07/28/24 16:49 Blood Pressure 135/95 H 07/28/24 16:49 Pulse Oximetry 100 07/28/24 16:49 Medical Decision Making MDM Narrative Medical decision making narrative: Patient presents with physical exam concerning for flexor tendon laceration. X- ray without evidence of fracture. Case discussed with on-call orthopedics. Advised he would like patient to be irrigated, placed on antibiotics with tetanus updated. He will see the patient on Wednesday and ensure appropriate follow-up to hand specialist given the nature of his injury. Spoke with patient regarding recommendations and he will have an appointment at 10:[address] Porter here in [place]. Patient is aware that at that time he will likely be set up with a hand specialist given the nature of his injury. Patient verbalized the importance for follow-up for definitive the nature of his injury with flexor tendon disruption. If patient does not follow-up he may result in permanent disability in the little finger. Patient verbalized today that the suture repair done to the skin is not the definitive treatment for his flexor tendon injury and the wound will likely need to be reopened by hand specialist for appropriate management. Patient is not to do any heavy lifting pulling or pushing pending reevaluation. tetanus up date, keflex given. Patient was able to verbalize back to me and layman's terms the importance of follow-up to maintain function of his little finger. Patient stated that if he did not follow-up he may result with a significant non repairable deformity to his little finger that may impede function and activity. The patient is to followup with Dr. Porter at 10:15am on Wednesday or to return to the emergency department should any of the signs or symptoms worsen or new symptoms develop. Patient had questions answered. The patient agrees with the following Diagnosis and Treatment plan and the patient will be discharged home. Discharge Plan Discharge Chief Complaint: Extremity Injury, Upper Clinical Impression: Flexor tendon laceration of finger with open wound, Laceration of right little finger with complication Patient Disposition: Home, Self-Care Time of Disposition Decision: 17:41 Condition: Good Prescriptions / Home Meds: New cephalexin 500 mg capsule 500 mg PO TID 7 Days Qty: 21 0RF No Action albuterol sulfate 2.5 mg /3 mL (0.083 %) solution for nebulization ibuprofen 800 mg tablet ketorolac 10 mg tablet 10 mg PO TID PRN (Reason: pain) Qty: 10 0RF Rx Instructions: DO NOT TAKE WITH IBUPROFEN methocarbamol 750 mg tablet 750 mg PO TID PRN (Reason: pain) Qty: 20 0RF cephalexin 500 mg capsule 500 mg PO QID 10 Days Qty: 40 0RF albuterol sulfate 2.5 mg /3 mL (0.083 %) solution for nebulization 2.5 mg inhalation QID PRN (Reason: shortness of breath or wheezing) Qty: 75 0RF albuterol sulfate 90 mcg/actuation HFA aerosol inhaler 2 inh inhalation Q6H PRN (Reason: shortness of breath or wheezing) Qty: 8.5 0RF Print Language: Andorran Instructions: Tendon Laceration (ED) Additional Instructions: must keep follow up with orthopedist for treatment referral to hand specialist. Referrals: Alexx Porter MD [Physician] - 07/31/24 10:15 am Procedures ED Laceration Laceration Laceration 1: Additional comments: Laceration repair: Done under sterile conditions. The use of Betadine was used to prep and clean the area. Local injection with lidocaine 1% was used, approximately 1.5 cc. The wound was irrigated copiously with normal saline. The wound was explored there was no evidence of foreign material. Supect flexor tendon laceration. The laceration was approximated with 5-0 nylon. 3 simple interrupted sutures were placed. Patient tolerated the procedure well. The patient was neurovascularly intact post. the patient had bacitracin applied to the laceration and a dry sterile dressing was place. The patient will need to follow-up with hand specialist for Flexor tendon repair. Patient was placed in an extension blocking splint in position of comfort. Secured with Erwin wrap, neurovascular intact status post application.
[2024-07-28] MEDS: BACITRACIN 0.9 GM PACKET 1 PACKET TOPICAL (17:15)
[2024-07-28] MEDS: LIDOCAINE HCL 1% 100 MG/10 ML MDV INJ (17:16)
[2024-07-28] MEDS: ADACEL DIPH,PERTUSS(ACELL),TET VAC/PF 0.5 ML ADULT SYRINGE IM (17:16)
--- OUTSIDE RECORDS SUMMARY | 2024-07-28 17:16 | XMS_ITS | CCD ---
Author Organization [facility] Care Team Providers Care Classroom Assistant Name Role Phone Myra [phone] UNKNOWN Unavailable Unavailable Patten, Jose M R. [...] Unavailable Unavailable Blank, Julian S Unavailable Unavailable Kerrick, Sammie A. Unavailable Unavailable Kerrick, Sammie A. Unavailable Unavailable Shipman, Octavio Unavailable Unavailable Char, Sammie A. Unavailable Unavailable Char, Sammie A. Unavailable Unavailable Shipman, Octavio Unavailable Unavailable Provider, None Unavailable Unavailable Stalter, Vargas Unavailable Unavailable Stalter, Vargas Unavailable Unavailable Stalter, Vargas Unavailable Unavailable Stalter, Vargas Unavailable Unavailable Provider, None Unavailable Unavailable Provider, None Unavailable Unavailable Mei, Neeraj R. Unavailable Unavailable [place], Neeraj R. Unavailable Unavailable Provider, None Unavailable Unavailable Mei, Neeraj R. Unavailable Unavailable [place], Neeraj R. Unavailable Unavailable EBRAHEIM, OVI Unavailable Unavailable EBRAHEIM, OVI Unavailable Unavailable SELF, REFERRED Unavailable Unavailable SELF, REFERRED Unavailable Unavailable MA Unavailable Unavailable EBRAHEIM, OVI Unavailable Unavailable MA Unavailable Unavailable RAY, FIDENCIO Sepulveda Unavailable Unavailable [...] Primary Care Unavailable DEFRANCE, PLACIDO Consulting Unavailable RUSJUSTIN FIGUEREDO Attending Unavailable DEFRANCE, PLACIDO T Attending [...] 06-22-20 ABSOLUTE BASOPHIL 0.1 X10E9/L Normal 0.0-0.2 [facility] Comment on above: Performed By: #### C CHARLY CMP, 3040-3, 15647-0, 19785-1 ####[facility] ([id number])[address] [place] [address] 20923 ABSOLUTE NEUTROPHIL 2.9 X10E9/L Normal 1.5-6.6 [facility] Comment on above: Performed By: #### Tamara PARKS CMP, 3040-3, 63638-6, 60325-3 ####[facility] ([id number])[address] [place] [address] 87145 Basophils/100 WBC (Bld) 0.7 % Normal [facility] Comment on above: Performed By: #### Tamara PARKS, CMP, 3040-3, 91384-0, 35066-0 ####[facility] ([id number])[address] [place] [address] 68973 Eosinophils (Bld) [#/Vol] 1.0 10*3/uL High 0.0-0.4 [facility] Comment on above: Performed By: #### Tamara PARKS CMP, 3040-3, 48165-1, 57051-1 ####[facility] ([id number])[address] [place] [address] Eosinophils/100 WBC (Bld) 12.1 % Normal [facility] Comment on above: Performed By: #### C BCA, CMP, 3040-3, 63780-3, 46480-5 ####[facility] ([id number])[address] [place] [address] 56026 Erythrocyte distribution width (RBC) [Ratio] 13.2 % Normal 11.5-15.0 [facility] Comment on above: Performed By: #### C CHARLY, CMP, 3040-3, 18922-4, 36774-6 ####[facility] ([id number])[address] [place] [address] 30888 Hematocrit (Bld) [Volume fraction] 42.3 % Normal 39-49 [facility] Comment on above: Performed By: #### C CHARLY, CMP, 3040-3, 28872-8, 35466-3 ####[facility] ([id number])[address] [place] [address] 98031 Hemoglobin (Bld) [Mass/Vol] 14.5 g/dL Normal 13.0-17.0 [facility] Comment on above: Performed By: #### C CHARLY, CMP, 3040-3, 82173-7, 99799-8 ####[facility] ([id number])[address] [place] [address] 24614 Lymphocytes (Bld) [#/Vol] 3.1 10*3/uL Normal 1.0-3.5 [facility] Comment on above: Performed By: #### C BCA, CMP, 3040-3, 43464-9, 49752-4 ####[facility] ([id number])[address] [place] [address] 87354 Lymphocytes/100 WBC (Bld) 39.4 % Normal [facility] Comment on above: Performed By: #### C BCA, CMP, 3040-3, 85473-1, 11184-6 ####[facility] ([id number])[address] [place] [address] 59769 MCH (RBC) [Entitic mass] 31.1 pg Normal 27-34 [facility] Comment on above: Performed By: #### C BCA, CMP, 3040-3, 91320-8, 55162-7 ####[facility] ([id number])[address] [place] [address] 32296 MCHC (RBC) [Mass/Vol] 34.1 g/dL Normal 32-36 [facility] Comment on above: Performed By: #### C CHARLY, CMP, 3040-3, 39766-6, 55779-7 ####[facility] ([id number])[address] [place] [address] 44254 MCV (RBC) [Entitic vol] 91 fL Normal 80-100 [facility] Comment on above: Performed By: #### C CHARLY, CMP, 3040-3, 74508-0, 82156-7 ####[facility] ([id number])[address] [place] [address] 35963 Monocytes (Bld) [#/Vol] 0.9 10*3/uL Normal 0-0.9 [facility] Comment on above: Performed By: #### C BCA, CMP, 3040-3, 50010-1, 28317-7 ####[facility] ([id number])[address] [place] [address] 59144 Monocytes/100 WBC (Bld) 11.3 % Normal [facility] Comment on above: Performed By: #### C BCA, CMP, 3040-3, 55009-0, 12146-7 ####[facility] ([id number])[address] [place] [address] 73129 Neutrophils/100 WBC (Bld) 36.5 % Normal [facility] Comment on above: Performed By: #### C BCA, CMP, 3040-3, 33977-7, 70757-0 ####[facility] ([id number])[address] [place] [address] 31938 Platelet mean volume (Bld) [Entitic vol] 8.2 fL Normal 7-12 [facility] Comment on above: Performed By: #### C BCA, CMP, 3040-3, 97614-7, 96901-7 ####[facility] ([id number])[address] [place] [address] 95297 Platelets (Bld) [#/Vol] 285 10*3/uL Normal 150-450 [facility] Comment on above: Performed By: #### C BCA, CMP, 3040-3, 32805-8, 02019-0 ####[facility] ([id number])[address] [place] [address] 65726 RBC COUNT 4.65 X10E12/L Normal 4.10-5.70 [facility] Comment on above: Performed By: #### C BCA, CMP, 3040-3, 08505-2, 63758-3 ####[facility] ([id number])[address] [place] [address] 24707 WBC (Bld) [#/Vol] 7.9 10*3/uL Normal 4.0-11.0 [facility] Comment on above: Performed By: #### C BCA, CMP, 3040-3, 07703-7, 88073-4 ####[facility] ([id number])[address] [place] [address] 47983 COMPREHENSIVE METABOLIC PANE Eladio 06-22-2024 Albumin [Mass/Vol] 4.5 g/dL Normal 3.2-5.3 [facility] Comment on above: Performed By: #### C BCA, CMP, 3040-3, 82367-6, 09910-6 ####[facility] ([id number])[address] [place] [address] 77658 ALP [Catalytic activity/Vol] 62 U/L Normal 39-130 [facility] Comment on above: Performed By: #### C BCA, CMP, 3040-3, 87475-1, 07396-7 ####[facility] ([id number])[address] [place] [address] 58478 ALT [Catalytic activity/Vol] 30 U/L Normal 0-40 [facility] Comment on above: Performed By: #### C BCA, CMP, 3040-3, 25212-0, 98401-7 ####[facility] ([id number])[address] [place] [address] 05131 Anion gap [Moles/Vol] 9 mmol/L Normal 5-15 [facility] Comment on above: Performed By: #### C BCA, CMP, 3040-3, 31195-1, 32101-8 ####[facility] ([id number])[address] [place] [address] 26121 AST [Catalytic activity/Vol] 28 U/L Normal 0-41 [facility] Comment on above: Performed By: #### C BCA, CMP, 3040-3, 69776-0, 02347-9 ####[facility] ([id number])[address] [place] [address] 09966 Bilirubin [Mass/Vol] 0.7 mg/dL Normal 0.3-1.2 [facility] Comment on above: Performed By: #### C BCA, CMP, 3040-3, 28574-7, 51410-9 ####[facility] ([id number])[address] [place] [address] 46507 Calcium [Mass/Vol] 9.3 mg/dL Normal 8.5-10.5 [facility] Comment on above: Performed By: #### C BCA, CMP, 3040-3, 21239-7, 19974-3 ####[facility] ([id number])[address] [place] [address] 16774 Chloride [Moles/Vol] 101 mmol/L Normal 98-109 [facility] Comment on above: Performed By: #### C BCA, CMP, 3040-3, 57749-9, 04036-4 ####[facility] ([id number])[address] [place] [address] 62713 CO2 [Moles/Vol] 23 mmol/L Normal 22-32 [facility] Comment on above: Performed By: #### C CHARLY, CMP, 3040-3, 61828-4, 36356-6 ####[facility] ([id number])[address] [place] [address] 86157 Creatinine [Mass/Vol] 0.80 mg/dL Normal 0.70-1.20 [facility] Comment on above: Result Comment: METH OD TRACEABLE TO IDMS STANDARD Performed By: #### C CHARLY, CMP, 3040-3, 32174-9, 24641-7 ####[facility] ([id number])[address] [place] [address] 00903 eGFR (CKD-EPI) NON-RACE DEPENDENT >90 Normal >59 [facility] Comment on above: Result Comment: Reported eGFR is based on the CKD-EPI 2021 equation that does not use a race coefficient. Performed By: #### C BCA, CMP, 3040-3, 80874-8, 52796-9 ####[facility] ([id number])[address] [place] [address] 88304 Glucose [Mass/Vol] 103 mg/dL High 65-99 [facility] Comment on above: Performed By: #### C BCA, CMP, 3040-3, 86872-1, 14281-9 ####[facility] ([id number])[address] [place] [address] 61703 Potassium [Moles/Vol] 3.8 mmol/L Normal 3.5-5.0 [facility] Comment on above: Performed By: #### C BCA, CMP, 3040-3, 26272-2, 87136-8 ####[facility] ([id number])[address] [place] [address] 12407 Protein [Mass/Vol] 7.7 g/dL Normal 6.0-8.0 [facility] Comment on above: Performed By: #### C BCA, CMP, 3040-3, 87347-2, 25656-3 ####[facility] ([id number])[address] [place] [address] 90557 Sodium [Moles/Vol] 133 mmol/L Low 134-146 [facility] Comment on above: Performed By: #### C BCA, CMP, 3040-3, 64053-6, 36401-3 ####[facility] ([id number])[address] [place] [address] 27094 Urea nitrogen [Mass/Vol] 22 mg/dL Normal 5-23 [facility] Comment on above: Performed By: #### C BCA, CMP, 3040-3, 61062-9, 23341-9 ####[facility] ([id number])[address] [place] [address] 52418 LIPASEon 06-22-2024 Lipase [Catalytic activity/Vol] 30 U/L Normal 17-40 [facility] Comment on above: Performed By: #### C BCA, CMP, 3040-3, 22892-5, 94967-6 ####[facility] ([id number])[address] [place] [address] 91213 Natriuretic peptide B [Mass/ Vol]on 06-22-2024 BRN NATRIURETIC PEP <5 Normal <100.0 [facility] Comment on above: Performed By: #### C CECY PARKS, 94322-3, 98405-6 #### [facility] ([id number]) [address] [facility] [place] [address] SARS/FLU A+B/RSV by NAAT/Mol ecularon 06-22-2024 SARS/FLU [...] operators who are performing tests using either [employer] or [employer] systems and is limited to laboratories that [...] specimen repeat. Fact Sheet for Healthcare Providers: https://www.fda.gov/media/33526 2/download Fact Sheet for Patients: https://www.fda.gov/media/09968 6/download Normal [facility] Comment on above: Performed By: #### C CECY PARKS, 91526-9, 65604-4 #### [facility] ([id number]) [address] [place] [address] 55669 Troponin I.cardiac High sens itivity method [Mass/Vol]on 06-22-2024 1 HOUR TROP I, HIGH SENSITIVITY 2 ng/L Normal <21 [facility] Comment on above: Performed By: #### C CECY PARKS, 65015-4, 72004-8 #### [facility] ([id number]) [address] [place] [address] 79937 TROPONIN I, HIGH SENSITIVITY <2 Normal <21 [facility] Comment on above: Performed By: #### C CECY APRKS, 54725-2, 00729-3 #### [facility] ([id number]) [address] [place] [address] 31832 VENOUS BLOOD GASon 4 IMMANUEL'S TEST Normal [facility] Comment on above: Performed By: #### V BG ####[facility] ([id number])[address] [place] [address] 49415 Base excess Calc (Bld) [Moles/Vol] 2.0 mmol/L Normal 0.0-2.0 [facility] Comment on above: Performed By: #### V BG ####[facility] ([id number])[address] [place] [address] 91885 Body temperature 98.6 [degF] Normal 37.0 [facility] Comment on above: Performed By: #### V BG ####[facility] ([id number])[address] [place] [address] [place] [address] HCO3 (Bld) [Moles/Vol] 26.0 mmol/L High 20.0-24.0 [facility] Comment on above: Performed By: #### V BG ####[facility] ([id number])[address] [place] [address] 26318 Oxygen saturation in Blood 89.0 % Normal >80.0 [facility] Comment on above: Performed By: #### V BG ####[facility] ([id number])[address] [place] [address] 50473 OXYGEN SOURCE [employer] Normal [facility] Comment on above: Performed By: #### V BG ####[facility] ([id number])[address] [place] [address] 74492 PCO2, VENOUS 39.5 MMHG Normal 35-50 [facility] Comment on above: Performed By: #### V BG ####[facility] ([id number])[address] [place] [address] [place] [address] PH, VENOUS 7.426 High 7.320-7.42 0 [facility] Comment on above: Performed By: #### V BG ####[facility] ([id number])[address] [place] [address] 15891 PO2, VENOUS 55 MMHG High 30-50 [facility] Comment on above: Performed By: #### V BG ####[facility] ([id number])[address] [place] [address] [place] [address] SAMPLE SITE N/A Normal [facility] Comment on above: Performed By: #### V BG ####[facility] ([id number])[address] [place] [address] [place] [address] SAMPLE TYPE VENOUS Normal [facility] Comment on above: Performed By: #### V BG ####[facility] ([id number])[address] [place] [address] 52540 XR CHEST 2 VWSon 06-22-2024 XR CHEST [...] Berry MD on 06/22/2024 12:49 AM Normal [facility] CBC AND AUTO DIFFon 04-09-20 ABSOLUTE BASOPHIL 0.1 X10E9/L Normal 0.0-0.2 [facility] Comment on above: Performed By: #### Tamara PARKS CMP, 5643-2 #### [facility] ([id number]) [address] [place] [address] 69801 ABSOLUTE NEUTROPHIL 3.0 X10E9/L Normal 1.5-6.6 [facility] Comment on above: Performed By: #### Tamara PARKS CMP, 5643-2 #### [facility] ([id number]) [address] [place] [address] 78804 Basophils/100 WBC (Bld) 1.1 % Normal [facility] Comment on above: Performed By: #### Tamara PARKS CMP, 5643-2 #### [facility] ([id number]) [address] [place] [address] 79030 Eosinophils (Bld) [#/Vol] 0.5 10*3/uL High 0.0-0.4 [facility] Comment on above: Performed By: #### Tamara PARKS CMP, 5643-2 #### [facility] ([id number]) [address] [place] [address] 79939 Eosinophils/100 WBC (Bld) 7.1 % Normal [facility] Comment on above: Performed By: #### Tamara PARKS CMP, 5643-2 #### [facility] ([id number]) [address] [place] [address] 16421 Erythrocyte distribution width (RBC) [Ratio] 13.2 % Normal 11.5-15.0 [facility] Comment on above: Performed By: #### Tamara PARKS CMP, 5643-2 #### [facility] ([id number]) [address] [place] [address] 48981 Hematocrit (Bld) [Volume fraction] 43.8 % Normal 39-49 [facility] Comment on above: Performed By: #### Tamara PARKS CMP, 5643-2 #### [facility] ([id number]) [address] [place] [address] 63945 Hemoglobin (Bld) [Mass/Vol] 15.1 g/dL Normal 13.0-17.0 [facility] Comment on above: Performed By: #### Tamara PARKS CMP, 5643-2 #### [facility] ([id number]) [address] [place] [address] 26608 Lymphocytes (Bld) [#/Vol] 2.9 10*3/uL Normal 1.0-3.5 [facility] Comment on above: Performed By: #### Tamara PARKS CMP, 5643-2 #### [facility] ([id number]) [address] [place] [address] 85696 Lymphocytes/100 WBC (Bld) 42.1 % Normal [facility] Comment on above: Performed By: #### Tamara PARKS CMP, 5643-2 #### [facility] ([id number]) [address] [place] [address] 15740 MCH (RBC) [Entitic mass] 31.5 pg Normal 27-34 [facility] Comment on above: Performed By: #### Tamara PARKS CMP, 5643-2 #### [facility] ([id number]) [address] [place] [address] 50149 MCHC (RBC) [Mass/Vol] 34.4 g/dL Normal 32-36 [facility] Comment on above: Performed By: #### Tamara PARKS CMP, 5643-2 #### [facility] ([id number]) [address] [place] [address] 89980 MCV (RBC) [Entitic vol] 92 fL Normal 80-100 [facility] Comment on above: Performed By: #### Tamara PARKS CMP, 5643-2 #### [facility] ([id number]) [address] [place] [address] 63806 Monocytes (Bld) [#/Vol] 0.4 10*3/uL Normal 0-0.9 [facility] Comment on above: Performed By: #### Tamara PARKS CMP, 5643-2 #### [facility] ([id number]) [address] [place] [address] 97989 Monocytes/100 WBC (Bld) 6.3 % Normal [facility] Comment on above: Performed By: #### Tamara PARKS CMP, 5643-2 #### [facility] ([id number]) [address] [place] [address] 57900 Neutrophils/100 WBC (Bld) 43.4 % Normal [facility] Comment on above: Performed By: #### Tamara PARKS CMP, 5643-2 #### [facility] ([id number]) [address] [place] [address] 55496 Platelet mean volume (Bld) [Entitic vol] 7.7 fL Normal 7-12 [facility] Comment on above: Performed By: #### Tamara PARKS, CMP, 5643-2 #### [facility] ([id number]) [address] [place] [address] 39885 Platelets (Bld) [#/Vol] 292 10*3/uL Normal 150-450 [facility] Comment on above: Performed By: #### Tamara PARKS CMP, 5643-2 #### [facility] ([id number]) [address] [place] [address] 64920 RBC COUNT 4.78 X10E12/L Normal 4.10-5.70 [facility] Comment on above: Performed By: #### Tamara PARKS CMP, 5643-2 #### [facility] ([id number]) [address] [place] [address] 25363 WBC (Bld) [#/Vol] 6.8 10*3/uL Normal 4.0-11.0 [facility] Comment on above: Performed By: #### Tamara PARKS CMP, 5643-2 #### [facility] ([id number]) [address] [place] [address] 55612 COMPREHENSIVE METABOLIC PANE [facility] 04-09-2024 Albumin [Mass/Vol] 4.6 g/dL Normal 3.2-5.3 [facility] Comment on above: Performed By: #### Tamara PARKS CMP, 5643-2 #### [facility] ([id number]) [address] [place] [address] 38344 ALP [Catalytic activity/Vol] 57 U/L Normal 39-130 [facility] Comment on above: Performed By: #### Tamara PARKS CMP, 5643-2 #### [facility] ([id number]) [address] [place] [address] 64566 ALT [Catalytic activity/Vol] 42 U/L High 0-40 [facility] Comment on above: Performed By: #### Tamara PARKS CMP, 5643-2 #### [facility] ([id number]) [address] [place] [address] 05361 Anion gap [Moles/Vol] 8 mmol/L Normal 5-15 [facility] Comment on above: Performed By: #### C LYDIA PARKS, 5643-2 #### [facility] ([id number]) [address] [place] [address] 07526 AST [Catalytic activity/Vol] 44 U/L High 0-41 [facility] Comment on above: Performed By: #### C LYDIA PARKS, 5643-2 #### [facility] ([id number]) [address] [place] [address] 94365 Bilirubin [Mass/Vol] 0.2 mg/dL Low 0.3-1.2 [facility] Comment on above: Performed By: #### C LYDIA PARKS, 5643-2 #### [facility] ([id number]) [address] [place] [address] 82931 Calcium [Mass/Vol] 8.3 mg/dL Low 8.5-10.5 [facility] Comment on above: Performed By: #### C LYDIA PARKS, 5643-2 #### [facility] ([id number]) [address] [place] [address] 41036 Chloride [Moles/Vol] 108 mmol/L Normal 98-109 [facility] Comment on above: Performed By: #### C LYDIA PARKS, 5643-2 #### [facility] ([id number]) [address] [place] [address] 42664 CO2 [Moles/Vol] 21 mmol/L Low 22-32 [facility] Comment on above: Performed By: #### C LYDIA PARKS, 5643-2 #### [facility] ([id number]) [address] [place] [address] 01745 Creatinine [Mass/Vol] 1.00 mg/dL Normal 0.70-1.20 [facility] Comment on above: Result Comment: METH OD TRACEABLE TO IDMS STANDARD Performed By: #### C CHARLY CMP, 5643-2 #### [facility] ([id number]) [address] [place] [address] 39507 eGFR (CKD-EPI) NON-RACE DEPENDENT >90 Normal >59 [facility] Comment on above: Result Comment: Reported eGFR is based on the CKD-EPI 2020 equation that does not use a race coefficient. Performed By: #### Tamara PARKS CMP, 5643-2 #### [facility] ([id number]) [address] [place] [address] 53460 Glucose [Mass/Vol] 99 mg/dL Normal 65-99 [facility] Comment on above: Performed By: #### Tamara PARKS CMP, 5643-2 #### [facility] ([id number]) [address] [place] [address] 60966 Potassium [Moles/Vol] 3.6 mmol/L Normal 3.5-5.0 [facility] Comment on above: Performed By: #### Tamara PARKS CMP, 5643-2 #### [facility] ([id number]) [address] [place] [address] 03003 Protein [Mass/Vol] 8.0 g/dL Normal 6.0-8.0 [facility] Comment on above: Performed By: #### Tamara PARKS CMP, 5643-2 #### [facility] ([id number]) [address] [place] [address] 35737 Sodium [Moles/Vol] 137 mmol/L Normal 134-146 [facility] Comment on above: Performed By: #### Tamara PARKS CMP, 5643-2 #### [facility] ([id number]) [address] [place] [address] 88586 Urea nitrogen [Mass/Vol] 15 mg/dL Normal 5-23 [facility] Comment on above: Performed By: #### Tamara PAKRS CMP, 5643-2 #### [facility] ([id number]) [address] [facility] [place] [address] CT ABDOMEN AND PELVIS W CONT on [...] Tidwell MD on 04/09/2024 3:10 AM Normal [facility] CT BRAIN WO CONTon CT BRAIN [...] Tidwell MD on 04/09/2024 2:39 AM Normal [facility] CT CERVICAL SPINE WO CONTon 04-09-2024 [...] Tidwell MD on 04/09/2024 2:40 AM Normal [facility] CT CHEST W CONTon 04-09-2024 CT [...] Finalized by Vishnu Tidwell MD on 04/09/2024 3:21 AM Normal [facility] CT LUMBAR RECONSTRUCTIONon 0 04-09-2024 CT [...] Tidwell MD on 04/09/2024 3:06 AM Normal [facility] CT THORACIC RECONSTRUCTIONon 04-09-2024 CT THORACIC [...] Tidwell MD on 04/09/2024 3:23 AM Normal [facility] Ethanol [Mass/Vol]on 024 ETHANOL 0.34 g/dL High 0.00-0.08 [facility] Comment on above: Result Comment: This report is intended for use in clinical monitoring or management of patients. Performed By: #### C CHARLY, [facility], 5643-2 #### [facility] ([id number]) [address] [place] [address] 75866 BASIC METABOLIC PANLon 03-03 Anion gap [Moles/Vol] 10 mmol/L Normal 5-15 [facility] Comment on above: Performed By: #### C BCA BMP, 02379-7, 62479-7 #### [facility] ([id number]) [address] [place] [address] 48104 Calcium [Mass/Vol] 9.2 mg/dL Normal 8.5-10.5 [facility] Comment on above: Performed By: #### C BCA, BMP, 40386-8, 83930-9 #### [facility] ([id number]) [address] [place] [address] 88215 Chloride [Moles/Vol] 102 mmol/L Normal 98-109 [facility] [facility] Comment on above: Performed By: #### C BCA, BMP, 41692-0, 68231-7 #### [facility] ([id number]) [address] [place] [address] 22663 CO2 [Moles/Vol] 23 mmol/L Normal 22-32 [facility] [place] [facility] Comment on above: Performed By: #### C BCA, BMP, 01569-8, 13976-7 #### [facility] ([id number]) [address] [place] [address] 65986 Creatinine [Mass/Vol] 0.79 mg/dL Normal 0.70-1.20 [facility] [place] [facility] Comment on above: Result Comment: METH OD TRACEABLE TO IDMS STANDARD Performed By: #### C CECY PARKS, 63542-2, 02678-4 #### [facility] ([id number]) [address] [place] [address] 18581 eGFR (CKD-EPI) NON-RACE DEPENDENT >90 Normal >59 [facility] [place] [facility] Comment on above: Result Comment: Reported eGFR is based on the CKD-EPI 1 equation that does not use a race coefficient. Performed By: #### C CECY PARKS, 25599-9, 02114-0 #### [facility] ([id number]) [address] [place] [address] 76020 Glucose [Mass/Vol] 109 mg/dL High 65-99 [facility] Comment on above: Performed By: #### C CHARLY, BMP, 82746-1, 45945-6 #### [facility] ([id number]) [address] [place] [address] 10672 Potassium [Moles/Vol] 4.5 mmol/L Normal 3.5-5.0 [facility] [place] [facility] Comment on above: Performed By: #### C CHARLY, BMP, 32496-7, 50502-9 #### [facility] ([id number]) [address] [place] [address] 38514 Sodium [Moles/Vol] 135 mmol/L Normal 134-146 [facility] Comment on above: Performed By: #### C CHARLY, BMP, 35797-4, 64116-4 #### [facility] ([id number]) [address] [place] [address] 79669 Urea nitrogen [Mass/Vol] 15 mg/dL Normal 5-23 [facility] [place] [facility] Comment on above: Performed By: #### C CHARLY, BMP, 78435-3, 56504-8 #### [facility] ([id number]) [address] [place] [address] 58385 CBC AND AUTO DIFFon 05-24-20 24 ABSOLUTE BASOPHIL 0.0 X10E9/L Normal 0.0-0.2 [facility] Comment on above: Performed By: #### C CECY PARKS, 42105-2, 68529-2 #### [facility] ([id number]) [address] [place] [address] 85938 ABSOLUTE NEUTROPHIL 6.9 X10E9/L High 1.5-6.6 [facility] [place] [facility] Comment on above: Performed By: #### C CHARLY, BMP, 42349-7, 28888-9 #### [facility] ([id number]) [address] [place] [address] 64927 Basophils/100 WBC (Bld) 0.4 % Normal [facility] [place] [facility] Comment on above: Performed By: #### Tamara PARKS, [facility], 40672-6, 46154-5 #### [facility] ([id number]) [address] [place] [address] 92177 Eosinophils (Bld) [#/Vol] 0.2 10*3/uL Normal 0.0-0.4 [facility] [place] [facility] Comment on above: Performed By: #### Tamara PARKS, CECY, 32741-1, 37204-8 #### [facility] ([id number]) [address] [place] [address] 28957 Eosinophils/100 WBC (Bld) 2.2 % Normal [facility] [place] [facility] Comment on above: Performed By: #### C CHARLY, BMP, 64917-2, 82179-0 #### [facility] ([id number]) [address] [place] [address] 13507 Erythrocyte distribution width (RBC) [Ratio] 13.4 % Normal 11.5-15.0 [facility] [place] [facility] Comment on above: Performed By: #### C CHARLY, BMP, 00711-7, 41726-5 #### [facility] ([id number]) [address] [place] [address] 25652 Hematocrit (Bld) [Volume fraction] 47.2 % Normal 39-49 [facility] [place] [facility] Comment on above: Performed By: #### C CHARLY, [facility], 37065-4, 05824-8 #### [facility] ([id number]) [address] [place] [address] 09045 Hemoglobin (Bld) [Mass/Vol] 16.2 g/dL Normal 13.0-17.0 [facility] [place] [facility] Comment on above: Performed By: #### C CHARLY, [facility], 20859-3, 87837-2 #### [facility] ([id number]) [address] [place] [address] 98744 Lymphocytes (Bld) [#/Vol] 1.1 10*3/uL Normal 1.0-3.5 [facility] [place] [facility] Comment on above: Performed By: #### C CHARLY, [facility], 31557-8, 67295-2 #### [facility] ([id number]) [address] [place] [address] 50079 Lymphocytes/100 WBC (Bld) 13.0 % Normal [facility] [place] [facility] Comment on above: Performed By: #### C CHARLY, [facility], 70433-7, 28716-7 #### [facility] ([id number]) [address] [place] [address] 69119 MCH (RBC) [Entitic mass] 30.9 pg Normal 27-34 [facility] [place] [facility] Comment on above: Performed By: #### C CHARLY, [facility], 09082-1, 23850-3 #### [facility] ([id number]) [address] [place] [address] 35756 MCHC (RBC) [Mass/Vol] 34.2 g/dL Normal 32-36 [facility] [place] [facility] Comment on above: Performed By: #### C CECY PARKS, 77306-8, 33909-8 #### [facility] ([id number]) [address] [place] [address] 06053 MCV (RBC) [Entitic vol] 90 fL Normal 80-100 [facility] [place] [facility] Comment on above: Performed By: #### Tamara PARKS, CECY, 20574-3, 77277-4 #### [facility] ([id number]) [address] [place] [address] 89694 Monocytes (Bld) [#/Vol] 0.2 10*3/uL Normal 0-0.9 [facility] [place] [facility] Comment on above: Performed By: #### Tamara PARKS, CECY, 73791-1, 23240-8 #### [facility] ([id number]) [address] [place] [address] 16063 Monocytes/100 WBC (Bld) 2.3 % Normal [facility] [place] [facility] Comment on above: Performed By: #### Tamara PARKS, [facility], 80757-8, 86606-0 #### [facility] ([id number]) [address] [place] [address] 38119 Neutrophils/100 WBC (Bld) 82.1 % Normal [facility] [place] [facility] Comment on above: Performed By: #### Tamara PARKS, CECY, 26191-5, 91273-7 #### [facility] ([id number]) [address] [place] [address] 46383 Platelet mean volume (Bld) [Entitic vol] 8.0 fL Normal 7-12 [facility] [place] [facility] Comment on above: Performed By: #### Tamara PARKS, BMP, 32814-3, 63287-8 #### [facility] ([id number]) [address] [place] [address] 55599 Platelets (Bld) [#/Vol] 329 10*3/uL Normal 150-450 [facility] [place] [facility] Comment on above: Performed By: #### C CHARLY BMP, 25005-5, 24522-6 #### [facility] ([id number]) [address] [place] [address] 51326 RBC COUNT 5.22 X10E12/L Normal 4.10-5.70 [facility] [place] [facility] Comment on above: Performed By: #### C CHARLY, BMP, 90794-6, 54402-0 #### [facility] ([id number]) [address] [place] [address] 94389 WBC (Bld) [#/Vol] 8.4 10*3/uL Normal 4.0-11.0 [facility] Comment on above: Performed By: #### C CHARLY, CECY, 50060-2, 69419-3 #### [facility] ([id number]) [address] [place] [address] 19950 Fibrin D-dimer DDU (PPP) [Ma ss/Vol]on 03-03-2024 D DIMER <150 Normal <255 [facility] [place] [facility] Comment on above: Result Comment: Results <255 ng/mL DDU: The presence of a VTE can safely be excluded with a negative D-Dimer result and Wells score. A negative result doesn't exclude the possibility of DIC. The test be repeated along with other diagnostic tests if the patient's symptoms persist or worsen. [email or web address] Performed By: #### C CHARLY, BMP, 05260-8, 23096-9 #### [facility] ([id number]) [address] [place] [address] 74210 Troponin I.cardiac High sens itivity method [Mass/Vol]on 03-03-2024 TROPONIN I, HIGH SENSITIVITY 2 ng/L Normal <21 [facility] [place] [facility] Comment on above: Performed By: #### C CHARLY, BMP, 15677-2, 25001-8 #### [facility] ([id number]) [address] [facility] [place] [address] XR CHEST 1 VWon 03-03-2024 XR CHEST [...] Branch MD on 03/03/2024 6:25 AM Normal [facility] [place] [facility] XR TOE RT GREAT TOE MIN [...] Lucas MD on 12/15/2023 4:46 PM Normal [facility] [place] [facility] XR TOE RT GREAT TOE MIN [...] Loya MD on 11/28/2023 10:51 PM Normal [facility] [place] [facility] COVID-19 PCRon 05-28-2020 SARS-CoV-2, TARIQ Not Detected Normal Not Detected [facility] Comment on above: Result Comment: This test was developed and its performance characteristics determined by [employer]. This test has not been FDA cleared [...] assay. Performed By: #### L ACT #### [facility] [address] [place] [address] Mary Aly AMMONIAon 04-05-2020 Ammonia (P) [Mass/Vol] 26 umol/L Normal 10-30 [facility] Comment on above: Performed By: #### A MM #### [facility] [address] [place] [address] Mary Aly CARDIAC JENNIFER ADMITon 020 CK [Catalytic activity/Vol] 229 U/L Critically high 55-170 [facility] Comment on above: Result Comment: test repeated critical value verified Performed By: #### L ACT #### [facility] [address] [place], [place] [address] Mary Sheeba CK.MB [Mass/Vol] 1.95 ng/mL Normal <=2.37 [facility] Comment on above: Performed By: #### L ACT #### [facility] [address] [place] [address] Mary Sheeba INR Coag (Bld) [Relative time] SEE BELOW Normal [facility] Comment on above: Result Comment: <0.0 34 ng/ml NEGATIVE 0.034-0.119 INDETERMINATE 0.120 AMI CUT OFF Performed By: #### L ACT #### [facility] [address] [place] [address] Mary Sheeba PAIGE 88.0 ng/mL Normal <=121.0 [facility] Comment on above: Performed By: #### L ACT #### [facility] [address] [place] [address] Mary Sheeba TROP <0.012 Normal <=0.034 [facility] Comment on above: Performed By: #### L ACT #### [facility] [address] [place], [place] [address] Mary Sheeba CBC AUTO DIFFon 04-05-2020 Basophils (Bld) [#/Vol] 0.1 103/ul Normal 0.0-0.1 [facility] Comment on above: Performed By: #### C BC #### [facility] [address] [place], [place] [address] Mary Sheeba Basophils/100 WBC (Bld) 1.1 % Normal 0.2-2.0 [facility] Comment on above: Performed By: #### C BC #### [facility] [address] [place], [place] [address] Mary Sheeba Eosinophils (Bld) [#/Vol] 0.8 103/ul Critically high 0.0-0.7 [facility] Comment on above: Performed By: #### C BC #### [facility] [address] [place], [place] [address] Mary Sheeba Eosinophils/100 WBC (Bld) 6.1 % Normal 0.9-7.0 [facility] Comment on above: Performed By: #### C BC #### [facility] [address] [place] [address] Mary Aly Erythrocyte distribution width (RBC) [Ratio] 12.6 % Normal 11.0-15.0 [facility] Comment on above: Performed By: #### C BC #### [facility] [address] [place] [address] Mary Aly Hematocrit (Bld) [Volume fraction] 45.1 % Normal 42.0-54.0 [facility] Comment on above: Performed By: #### C BC #### [facility] [address] [place] [address] Mary Sheeba Hemoglobin (Bld) [Mass/Vol] 15.6 g/dL Normal 14.0-18.0 [facility] Comment on above: Performed By: #### C BC #### [facility] [address] [place] [address] Maryjong Aly IG # 0.07 10e3/ul Critically high 0.00-0.03 [facility] Comment on above: Performed By: #### C BC #### [facility] [address] [place] [address] Mary Aly IG % 0.6 % Critically high 0.0-0.5 [facility] Comment on above: Performed By: #### C BC #### [facility] [address] [place] [address] Mary Sheeba Lymphocytes (Bld) [#/Vol] 4.7 103/ul Critically high 1.2-3.8 [facility] Comment on above: Performed By: #### C BC #### [facility] [address] [place], [place] [address] Mary Aly Lymphocytes/100 WBC (Bld) 38.2 % Normal 20.5-60.0 [facility] Comment on above: Performed By: #### C BC #### [facility] [address] [place] [address] Mary Aly MANUAL DIFF REQ NO Normal [facility] Comment on above: Performed By: #### C BC #### [facility] [address], [place] [address] Maryjong Varelaen MCH (RBC) [Entitic mass] 31.8 pg Normal 25.9-34.0 [facility] Comment on above: Performed By: #### C BC #### [facility] [address], [place] [address] Maryjong Varelaen MCHC (RBC) [Mass/Vol] 34.6 g/dL Normal 29.9-35.2 [facility] Comment on above: Performed By: #### C BC #### [facility] [address], [place] [address] Mary Sheeba MCV (RBC) [Entitic vol] 92.0 fL Normal 80.0-94.0 [facility] Comment on above: Performed By: #### C BC #### [facility] [address], [place] [address] Mary Sheeba Monocytes (Bld) [#/Vol] 0.8 103/ul Normal 0.3-0.8 [facility] Comment on above: Performed By: #### C BC #### [facility] [address] [place] [address] Mary Sheeba Monocytes/100 WBC (Bld) 6.8 % Normal 1.7-12.0 [facility] Comment on above: Performed By: #### C BC #### [facility] [address] [place] [address] Mary Sheeba Neutrophils (Bld) [#/Vol] 5.8 103/ul Normal 1.4-6.5 [facility] Comment on above: Performed By: #### C BC #### [facility] [address] [place] [address] Mary Sheeba Neutrophils/100 WBC (Bld) 47.2 % Normal 43.0-75.0 [facility] Comment on above: Performed By: #### C BC #### [facility] [address], [place] [address] Mary Sheeba Platelet mean volume (Bld) [Entitic vol] 9.9 fL Normal 9.5-13.5 [facility] Comment on above: Performed By: #### C BC #### [facility] [address] [place], [place] [address] Mary Aly Platelets (Bld) [#/Vol] 293 103/ul Normal 150-450 [facility] Comment on above: Performed By: #### C BC #### [facility] [address] [place], [place] [address] Mary Aly RBC (Bld) [#/Vol] 4.90 106/ul Normal 4.70-6.10 [facility] Comment on above: Performed By: #### C BC #### [facility] [address] [place], [place] [address] Mary Aly WBC (Bld) [#/Vol] 12.3 103/ul Critically high 4.0-11.0 [facility] Comment on above: Performed By: #### C BC #### [facility] [address] [place] [address] Mary Aly D-DIMERon 04-05-2020 D-DIMER COMMENTS SEE BELOW Normal [facility] Comment on above: Result Comment: Incr [...] hospitalization. Performed By: #### L ACT #### [facility] [address] [place], [place] [address] Maryjong Aly Fibrin D-dimer FEU IA (Bld) [Mass/Vol] 0.29 ug/mL Normal 0.19-0.50 [facility] Comment on above: Performed By: #### L ACT #### [facility] [address] [place], [place] [address] Mary Aly DRUG SCREEN RAPID (URINE)on 04-05-2020 AMP Negative Normal NEGATIVE [facility] Comment on above: Performed By: #### L ACT #### [facility] [address] [place] [address] Mary Sheeba BAR Negative Normal NEGATIVE [facility] Comment on above: Performed By: #### L ACT #### [facility] [address] [place] [address] Mary Sheeba BUP Negative Normal NEGATIVE [facility] Comment on above: Performed By: #### L ACT #### [facility] [address] [place] [address] Mary Sheeba BZO Negative Normal NEGATIVE [facility] Comment on above: Performed By: #### L ACT #### [facility] [address] [place] [address] Mary Sheeba ADAMARIS Negative Normal NEGATIVE [facility] Comment on above: Performed By: #### L ACT #### [facility] [address] [place] [address] CUT-OFFS SEE BELOW Normal [facility] Comment on above: Result Comment: AMP (Amphetamine): [...] ng/mL Performed By: #### L ACT #### [facility] [address] [place] [address] DRUG CUT HEADER DRUG CLASS TEST SYST EM CUT-OFF CONCENTRATIONS ARE FOLLOWS: Normal [facility] Comment on above: Performed By: #### L ACT #### [facility] [address] [place] [address] Mary Sheeba mAMP Negative Normal NEGATIVE [facility] Comment on above: Performed By: #### L ACT #### [facility] [address] [place] [address] Mary Sheeba MTD Negative Normal NEGATIVE [facility] Comment on above: Performed By: #### L ACT #### [facility] [address] [place] [address] Mary Sheeba OPI Negative Normal NEGATIVE [facility] Comment on above: Performed By: #### L ACT #### [facility] [address] [place] [address] Mary Sheeba OXY Negative Normal NEGATIVE [facility] Comment on above: Performed By: #### L ACT #### [facility] [address] [place] [address] Mary Sheeba PCP Negative Normal NEGATIVE [facility] Comment on above: Performed By: #### L ACT #### [facility] [address] [place] [address] Mary Sheeba PPX Negative Normal NEGATIVE [facility] Comment on above: Performed By: #### L ACT #### [facility] [address] [place] [address] Mary Sheeba TCA Negative Normal NEGATIVE [facility] Comment on above: Performed By: #### L ACT #### [facility] [address] [place] [address] Mary Sheeba THC Negative Normal NEGATIVE [facility] Comment on above: Performed By: #### L ACT #### [facility] [address] [place] [address] Mary Sheeba ETHANOL (BLD ALC)on 04-05-20 20 Ethanol [Mass/Vol] NOTE: 80 mg/dl is th e legal limit for a blood alcohol level Normal [facility] Comment on above: Performed By: #### E TH #### [facility] [address] [place] [address] Mary Sheeba Ethanol [Mass/Vol] 242 mg/dL Normal [facility] Comment on above: Performed By: #### E TH #### [facility] [address] [place] [address] Mary Sheeba PROF 14(COMP METB)on 06-26-2 020 Albumin [Mass/Vol] 4.0 g/dL Normal 3.5-5.0 [facility] Comment on above: Performed By: #### L ACT #### [facility] [address] [place], [place] [address] Mary Sheeba Albumin/Globulin [Mass ratio] 1.1 {ratio} Normal [facility] Comment on above: Performed By: #### L ACT #### [facility] [address] [place] [address] Mary Sheeba ALP [Catalytic activity/Vol] 74 U/L Normal 38-126 [facility] Comment on above: Performed By: #### L ACT #### [facility] [address] [place] [address] Mary Sheeba ALT [Catalytic activity/Vol] 37 U/L Normal 21-72 [facility] Comment on above: Performed By: #### L ACT #### [facility] [address] [place] [address] Mary Sheeba Anion gap [Moles/Vol] 19.2 mmol/L Normal [facility] Comment on above: Performed By: #### L ACT #### [facility] [address] [place] [address] Mary Sheeba AST [Catalytic activity/Vol] 31 U/L Normal 17-59 [facility] Comment on above: Performed By: #### L ACT #### [facility] [address] [place] [address] Mary Sheeba Bilirubin Ql (U) 0.3 mg/dL Normal 0.2-1.3 [facility] Comment on above: Performed By: #### L ACT #### [facility] [address] [place] [address] Mary Sheeba Calcium [Mass/Vol] 8.6 mg/dL Normal 8.4-10.2 [facility] Comment on above: Performed By: #### L ACT #### [facility] [address] [place], [place] [address] Mary Sheeba Chloride [Moles/Vol] 105 mmol/L Normal 98-107 [facility] Comment on above: Performed By: #### L ACT #### [facility] [address] [address] Mary Sheeba CO2 [Moles/Vol] 22.5 mmol/L Normal 22.0-30.0 [facility] Comment on above: Performed By: #### L ACT #### [facility] [address] [id number] Mary Sheeba Creatinine [Mass/Vol] 0.79 mg/dL Normal 0.66-1.25 [facility] Comment on above: Performed By: #### L ACT #### [facility] [address] [address] Mary Sheeba EGFR-AF CITIZEN [place] >60 Normal >=60 [facility] Comment on above: Performed By: #### L ACT #### [facility] [address] [place] [address] Mary Sheeba EGFR-NON AF CITIZEN OF [place] >60 Normal >=60 [facility] Comment on above: Performed By: #### L ACT #### [facility] [address] [place] [address] Mary Sheeba Globulin (S) [Mass/Vol] 3.8 g/dL Normal [facility] Comment on above: Performed By: #### L ACT #### [facility] [address] [place] [address] Mary Sheeba Glucose [Mass/Vol] 103 mg/dL Normal 74-106 [facility] Comment on above: Performed By: #### L ACT #### [facility] [address] [place] [address] Mary Sheeba Potassium [Moles/Vol] 3.7 mmol/L Normal 3.4-5.0 [facility] Comment on above: Result Comment: slig htly hemolyzed Performed By: #### L ACT #### [facility] [address] [place], [place] [address] Mary Sheeba Protein [Mass/Vol] 7.8 g/dL Normal 6.1-8.2 [facility] Comment on above: Performed By: #### L ACT #### [facility] [address] [place] [address] Mary Sheeba Sodium [Moles/Vol] 143 mmol/L Normal 137-145 [facility] Comment on above: Performed By: #### L ACT #### [facility] [address], [place] [address] Mary Aly Urea nitrogen [Mass/Vol] 6.0 mg/dL Critically low 9.0-20.0 [facility] Comment on above: Performed By: #### L ACT #### [facility] [address], [place] [address] Mary Aly Urea nitrogen/Creatinin e [Mass ratio] 7.6 mg/mg Normal [facility] Comment on above: Performed By: #### L ACT #### [facility] [address] [id number] Mary Aly XR CHEST 1 Von 04-05-2020 [...] by: KELLY THOMAS Date: 2020-04-05 21:[address] [facility] [address] ABD/PELV W CONon 03-25-20 20 [...] JUSTIN ALEMAN Date: 2020-03-24 23:05 Normal [facility] AMYLASEon 03-24-2020 Amylase [Catalytic activity/Vol] 37 U/L Normal 31-110 [facility] Comment on above: Performed By: #### C MP, DARIAN, LIPA #### [facility] [address] [place] [address] Mary Sheeba CBC AUTO DIFFon 03-24-2020 Basophils (Bld) [#/Vol] 0.1 103/ul Normal 0.0-0.1 [facility] Comment on above: Performed By: #### C BC #### [facility] [address] [place], [place] [address] Mary Sheeba Basophils/100 WBC (Bld) 0.6 % Normal 0.2-2.0 [facility] Comment on above: Performed By: #### C BC #### [facility] [address] [place] [address] Mary Sheeba Eosinophils (Bld) [#/Vol] 0.4 103/ul Normal 0.0-0.7 [facility] Comment on above: Performed By: #### C BC #### [facility] [address] [place] [address] Mary Sheeba Eosinophils/100 WBC (Bld) 3.1 % Normal 0.9-7.0 [facility] Comment on above: Performed By: #### C BC #### [facility] [address] [place] [address] Mary Sheeba Erythrocyte distribution width (RBC) [Ratio] 12.7 % Normal 11.0-15.0 [facility] Comment on above: Performed By: #### C BC #### [facility] [address] [place], [place] [id number] Mary Sheeba Hematocrit (Bld) [Volume fraction] 47.5 % Normal 42.0-54.0 [facility] Comment on above: Performed By: #### C BC #### [facility] [address] [place], [place] [id number] Mary Aly Hemoglobin (Bld) [Mass/Vol] 16.2 g/dL Normal 14.0-18.0 [facility] Comment on above: Performed By: #### C BC #### [facility] [address] [place] [address] Maryjong Aly IG # 0.06 10e3/ul Critically high 0.00-0.03 [facility] Comment on above: Performed By: #### C BC #### [facility] [address] [place] [address] Mary Aly IG % 0.5 % Normal 0.0-0.5 [facility] Comment on above: Performed By: #### C BC #### [facility] [address] [place] [address] Mary Aly Lymphocytes (Bld) [#/Vol] 2.2 103/ul Normal 1.2-3.8 [facility] Comment on above: Performed By: #### C BC #### [facility] [address] [place] [address] Mary Aly Lymphocytes/100 WBC (Bld) 17.1 % Critically low 20.5-60.0 [facility] Comment on above: Performed By: #### C BC #### [facility] [address] [place], [place] [id number] Mary Aly MANUAL DIFF REQ NO Normal [facility] Comment on above: Performed By: #### C BC #### [facility] [address] [place], [place] [address] Mary Aly MCH (RBC) [Entitic mass] 31.9 pg Normal 25.9-34.0 [facility] Comment on above: Performed By: #### C BC #### [facility] [address] [place], [place] [address] Mary Aly MCHC (RBC) [Mass/Vol] 34.1 g/dL Normal 29.9-35.2 [facility] Comment on above: Performed By: #### C BC #### [facility] [address], [place] [address] Mary Sheeba MCV (RBC) [Entitic vol] 93.5 fL Normal 80.0-94.0 [facility] Comment on above: Performed By: #### C BC #### [facility] [address] [place], [place] [address] Mary Sheeba Monocytes (Bld) [#/Vol] 0.9 103/ul Critically high 0.3-0.8 [facility] Comment on above: Performed By: #### C BC #### [facility] [address] [place], [place] [address] Mary Sheeba Monocytes/100 WBC (Bld) 6.5 % Normal 1.7-12.0 [facility] Comment on above: Performed By: #### C BC #### [facility] [address] [place], [place] [address] Mary Sheeba Neutrophils (Bld) [#/Vol] 9.5 103/ul Critically high 1.4-6.5 [facility] Comment on above: Performed By: #### C BC #### [facility] [address] [place], [place] [address] Mary Sheeba Neutrophils/100 WBC (Bld) 72.2 % Normal 43.0-75.0 [facility] Comment on above: Performed By: #### C BC #### [facility] [address] [place], [place] [address] Mary Sheeba Platelet mean volume (Bld) [Entitic vol] 10.5 fL Normal 9.5-13.5 [facility] Comment on above: Performed By: #### C BC #### [facility] [address] [place], [place] [address] Mary Sheeba Platelets (Bld) [#/Vol] 271 103/ul Normal 150-450 [facility] Comment on above: Performed By: #### C BC #### [facility] [address] [place], [place] [address] Mary Sheeba RBC (Bld) [#/Vol] 5.08 106/ul Normal 4.70-6.10 [facility] Comment on above: Performed By: #### C BC #### [facility] [address] [place], [place] [address] Mary Aly WBC (Bld) [#/Vol] 13.1 103/ul Critically high 4.0-11.0 [facility] Comment on above: Performed By: #### C BC #### [facility] [address] [place] [address] Mary Aly LACTATE/LACTIC ACIDon 2019 Lactate [Moles/Vol] 0.8 mmol/L Normal 0.7-2.0 [facility] Comment on above: Performed By: #### L ACT #### [facility] [address] [place] [address] Mary Aly LIPASEon 03-24-2020 Lipase [Catalytic activity/Vol] 123.0 U/L Normal 23.0-300.0 [facility] Comment on above: Performed By: #### C MP DARIAN, LIPA #### [facility] [address] [place], [place] [address] Mary Aly PROF 14(COMP METB)on 020 Albumin [Mass/Vol] 4.5 g/dL Normal 3.5-5.0 [facility] Comment on above: Performed By: #### C MP, DARIAN, LIPA #### [facility] [address] [place], [place] [address] Mary Sheeba Albumin/Globulin [Mass ratio] 1.2 {ratio} Normal [facility] Comment on above: Performed By: #### C MP, DARIAN, LIPA #### [facility] [address] [place], [place] [address] Mary Sheeba ALP [Catalytic activity/Vol] 69 U/L Normal 38-126 [facility] Comment on above: Performed By: #### C MP, DARIAN, LIPA #### [facility] [address] [place] [address] Mary Sheeba ALT [Catalytic activity/Vol] 27 U/L Normal 21-72 [facility] Comment on above: Performed By: #### C DARIAN MENDOZA, LIPA #### [facility] [address] [place] [address] Mary Sheeba Anion gap [Moles/Vol] 13.0 mmol/L Normal [facility] Comment on above: Performed By: #### C REJI DARIAN, LIPA #### [facility] [address] [place] [address] Mary Sheeba AST [Catalytic activity/Vol] 19 U/L Normal 17-59 [facility] Comment on above: Performed By: #### C REJI DARIAN, LIPA #### [facility] [address] [place] [address] Mary Sheeba Bilirubin Ql (U) 0.4 mg/dL Normal 0.2-1.3 [facility] Comment on above: Performed By: #### C REJI DARIAN, LIPA #### [facility] [address] [place] [address] Mary Sheeba Calcium [Mass/Vol] 10.0 mg/dL Normal 8.4-10.2 [facility] Comment on above: Performed By: #### C REJI DARIAN, LIPA #### [facility] [address] [place] [address] Mary Sheeba Chloride [Moles/Vol] 100 mmol/L Normal 98-107 [facility] Comment on above: Performed By: #### C REJI DARIAN, LIPA #### [facility] [address] [place] [address] Mary Sheeba CO2 [Moles/Vol] 27.7 mmol/L Normal 22.0-30.0 [facility] Comment on above: Performed By: #### C REJI DARIAN, LIPA #### [facility] [address] [place] [address] Mary Sheeba Creatinine [Mass/Vol] 0.70 mg/dL Normal 0.66-1.25 [facility] Comment on above: Performed By: #### C REJI DARIAN, LIPA #### [facility] [address] [place] [address] Mary Sheeba EGFR-AF CITIZEN OF [place] >60 Normal >=60 [facility] Comment on above: Performed By: #### C DARIAN MENDOZA, LIPA #### [facility] [address] [place] [address] Mary Sheeba EGFR-NON AF CITIZEN OF [place] >60 Normal >=60 [facility] Comment on above: Performed By: #### C MP DARIAN, LIPA #### [facility] [address] [place] [address] Mary Sheeba Globulin (S) [Mass/Vol] 3.8 g/dL Normal [facility] Comment on above: Performed By: #### C REJI DARIAN, LIPA #### [facility] [address] [place] [address] Mary Sheeba Glucose [Mass/Vol] 103 mg/dL Normal 74-106 [facility] Comment on above: Performed By: #### C REJI DARIAN, LIPA #### [facility] [address] [place] [address] Mary Sheeba Potassium [Moles/Vol] 3.7 mmol/L Normal 3.4-5.0 [facility] Comment on above: Performed By: #### C REJI DARIAN, LIPA #### [facility] [address] [place] [address] Mary Sheeba Protein [Mass/Vol] 8.3 g/dL Critically high 6.1-8.2 [facility] Comment on above: Performed By: #### C REJI DARIAN, LIPA #### [facility] [address] [place] [address] Mary Sheeba Sodium [Moles/Vol] 137 mmol/L Normal 137-145 [facility] Comment on above: Performed By: #### C REJI DARIAN, LIPA #### [facility] [address] [place] [address] Mary Sheeba Urea nitrogen [Mass/Vol] 13.0 mg/dL Normal 9.0-20.0 [facility] Comment on above: Performed By: #### C REJI DARIAN, LIPA #### [facility] [address] [place] [address] Mary Sheeba Urea nitrogen/Creatinin e [Mass ratio] 18.6 mg/mg Normal [facility] Comment on above: Performed By: #### C DARIAN MENDOZA LIPA #### [facility] [address] [place] [id number] Mary Aly XR ABD FLAT UP_PA Abiola [...] by: LISA NUNN Date: 2020-03-24 21:01 Normal [facility] Coding Summary.on 11-12-2017 Coding Summary. CODING DATE: 018 FINAL [facility] STATUS: Home (Routine DC) PAYOR: Medicaid EAPG [...] Blanc Date Saved: 11/12/2017 08:29 am Normal [facility] Coding Summary.on 10-29-2017 Coding Summary. CODING DATE: [facility] STATUS: Home (Routine DC) PAYOR: Medicaid ADMIT [...] Blanc Date Saved: 10/29/2017 07:50 am Normal [facility] Coding Summary.on 10-19-2017 Coding Summary. CODING DATE: [facility] STATUS: Home w/ Home Health PAYOR: Medicaid Grouper: 872 MS-DRG SEPTICEMIA OR SEVERE SEPSIS W/O MV >96 HOURS W/O LONG TERM Low Trim 0 High Trim 999 720 [...] dependence, cigarettes, uncomplicated PROCEDURES DOCTOR NAME DATE [id number] Drainage of Lower Back, Jose M Kumar MD 10/08/2017 Approach NOTE: The code number assigned matches the documented diagnosis and / or procedure in the patient's chart. However, the narrative phrase printed from the coding software may appear abbreviated, or result in slightly different terminology. Coded By: Toña Espinosa Date Saved: 10/19/2017 02:22 pm Normal [facility] Discharge Summaryon 10-16-19 18 Discharge Summary [...] serum enzymes Prescription and Home Meds: acetaminophen-hydrocodone ([place] 325 mg-5 mg oral tablet) See Instructions, [...] fluid. Mild paralumbar tenderness.. Integumentary: Warm, Dry, [place]. Neurologic: Alert, Oriented. Psychiatric: Cooperative, Appropriate mood & affect. Hospital Course 27-year-old male with no significant past medical history presented with complaints of left flank and left lower back pain of about 2-3 weeks duration associated with fever, chills and nausea. He was subsequently admitted to [facility] with sepsis secondary to left paralumbar [...] medications, reviewed with patient, called to pharmacy. [facility] Comment on above: Result Comment: Elec tronically Signed By: Sushant DC, Mbanefo\.br\Date and Time Signed: 10/16/17 13:50 EST Inpatient Clinical Summaryon 10-16-2017 Inpatient Clinical Summary [place] [id number] Clinical Summary Person Information:Name: WILLOW WILKES Age: 27 Years : 1990 12:00 AM Sex: Male PCP: Myra Middleton MD Marital Status:Single Race:White Ethnicity:Non- or Language:Kenyan Visit Id: Visit Reason:Increased heart rate; Nausea; Dizziness; Pain in back; CELLULITIS, PHLEGMON, TACHYCARDIA Speciality: Acuity: 3 Enc Type: Inpatient Med Service: Medical Arrival:10/05/2017 5:35 PM Discharge: Dispo Type: Admitted as IP to this Hosp Address:[address] [place] [id number] Provider Notes: Diagnosis:Cellulitis of lower back; Elevated [...] Immunizations Documented This Visit Final Med List:acetaminophen-hydrocodone ([place] 325 mg-5 mg oral tablet) 1 - [...] Follow up:With: Address: When: Myra Middleton [address] [place] [address] Business (1) Within 5 to 7 days Comments: Call for followup appointment. No answer With: Address: When: [address] [place] [address] Business (1) Within 2 weeks Comments: Call for followup appointment. Office computer is down right now. Call Wednesday for appointment With: Address: When: Jose M Patten [address] [facility] [place], [facility] [address] [place] [address] [facility] (1) 10/28/17 09:55:00 Comments: Call for followup appointment With: Address: When: Wound Clinic: [facility] [phone] 10/14/17 08:00:00 Comments: Keep scheduled appointment Patient Education Information: Cellulitis, Smwt-gl-WyzvFkjqiv, [place] 5/325 Tab Normal [facility] Inpatient Patient Summaryon 10-16-2017 Inpatient Patient Summary [address] [address] Patient Discharge Instructions PERSON INFORMATION Name: WILLOW WILKES Date of : 1990 12:00 AM Current Date: 10/16/17 12:14:08 PHYSICIANS Admitting Physician: [facility] Care Physician: Kane DC, GuillermoiePCP [...] Address: When: Myra Middleton [address] [place] [address] Business (1) Within 5 to 7 days Comments: Call for followup appointment. No answer With: Address: When: Julian Cyr [address] [place] [address] Business (1) Within 2 weeks Comments: Call for followup appointment. Office computer is down right now. Call Wednesday for appointment With: Address: When: Jose M Patten [address], [address] [place] [address] Business (1) 10/28/17 09:55:00 Comments: Call for followup appointment With: Address: When: Wound Clinic: [facility] [phone] 10/14/17 08:00:00 Comments: Keep scheduled appointment In the event that this physician does not participate in your insurance network, please consult with your insurance company to find a nearby participating provider. Comment: ICHUNG RYAN, have received the attached patient education materials/instructions and have verbalized understanding:Patient Signature Date Clinican/Nurse Signature Date HERE ARE THE MEDICATION CHANGES THAT OCCURRED DURING YOUR HOSPITAL STAY [facility], [address] [place] [address], [phone]-hydrocodone ([place] 325 mg-5 mg oral tablet) 1 - [...] THIS WITH YOU AT ALL TIMES. acetaminophen-hydrocodone ([place] 325 mg-5 mg oral tablet) 1 - [...] 02/11/2015 Document Reviewed: 12/12/2012ExitCare? Patient Information ?2015 Prizzm. This information is not intended to replace [...] may report side effects to FDA at 3-518-WVZ-5819. What other drugs will affect cephalexin?Other drugs may interact with cephalexin, including prescription and mqtt-lgz-tnjfuga medicines, vitamins, and herbal products. Tell each [...] to ensure that the information provided by [employer] ('[employer]') is accurate, up-to-date, and complete, but no guarantee is made to that effect. Drug information contained herein may be time sensitive. [employer] information has been compiled for use by healthcare practitioners and consumers in the [place] and therefore [employer] does not warrant that uses outside of the [place] are appropriate, unless specifically indicated otherwise. [employer] drug information does not endorse drugs, diagnose patients or recommend therapy. [employer] drug information is an informational resource designed [...] effective or appropriate for any given patient. [employer] does not assume any responsibility for any aspect of healthcare administered with the aid of information [employer] provides. The information contained herein is not intended to cover all possible uses, directions, precautions, warnings, drug interactions, allergic reactions, or adverse effects. If you have questions about the drugs you are taking, check with your doctor, nurse or pharmacist. Copyright 5173-1840 [employer] Version: 9.01. Revision Date: 01/26/2017.acetaminophen and hydrocodone (a SEET a MIN [place] fen and pete drodemario KOE done)Hycet, Lorcet, Lortab 10/325, Lortab 5/325, Lortab 7.5/325, Lortab Elixir, [place], Verdrocet, Vicodin, Xodol, Zamicet What is the [...] may report side effects to FDA at 8-434-CFB-8819.What other drugs will affect acetaminophen and hydrocodone?Narcotic [...] with acetaminophen and hydrocodone, including prescription and fqsr-jtz-ufdgrpm medicines, vitamins, and herbal products. Not all [...] to ensure that the information provided by [employer] ('[employer]') is accurate, up-to-date, and complete, but no guarantee is made to that effect. Drug information contained herein may be time sensitive. [employer] information has been compiled for use by healthcare practitioners and consumers in the [place] and therefore [employer] does not warrant that uses outside of the [place] are appropriate, unless specifically indicated otherwise. [employer]'s drug information does not endorse drugs, diagnose patients or recommend therapy. [employer] drug information is an informational resource designed [...] effective or appropriate for any given patient. [employer] does not assume any responsibility for any aspect of healthcare administered with the aid of information [employer] provides. The information contained herein is not intended to cover all possible uses, directions, precautions, warnings, drug interactions, allergic reactions, or adverse effects. If you have questions about the drugs you are taking, check with your doctor, nurse or pharmacist. Copyright 6896-0851 [employer] Version: 14.11. Revision Date: 07/09/2016. Thank you for choosing [facility] Normal [facility] Interdisciplinary Note - Brett e Manageron 10-15-2017 Interdisciplinary Note - Machine Shop Inspector Daily rounds completed with hospitalist Dr. Canchola, MARY Cuellar, Pharmacist Maryjane present. Patient alert and oriented, involved in POC. Discussed medications, labs, and tests. Pt remains in isolation. No family present at this time. Patient?s goal is to return home with [facility] at discharge. Anticipated discharge yet to be determined, awaiting wound vac authorization from [place] [employer]. Contact and goal information updated on white board. Normal [facility] Progress Note-Physicianon Progress Note-Physician Patient: WILLOW [...] (4)ceFAZolin 2 gram 50 mL, IV Piggyback, n1lsygqyeedj sodium 100 mg Cap [F] 100 mg 1 cap(s), Oral, BIDnicotine 14 mg/24 hr Transderm ER Film [F] 14 mg 1 patch(es), TransDermal, DailySodium Chloride 0.9% 500 mL 500 mL, IVContinuous: (1)Lactated Ringers 1,000 mL 1,000 mL, IV, 20 mL/hrPRN: (6)acetaminophen 325 mg Tab UD [F] 650 mg 2 tab(s), Oral, s9hmcfaftpaepenmo-uqrqaymfa 325 mg-5 mg Tab [F] 1 tab(s), Oral, m3agjfacmhzpw 0.083% Inh Mary 3 mL [F] 2.5 mg 3 mL, NEB, m4qfrdxsntyhb CFC free 90 mcg/inh Inh Aer w/Adapt 8.5 gm [F] 180 microgram 2 puff(s), Inhalation, f6luqbuonexk 2 mg/mL preservative-free SOLN [F] 2 mg 1 mL, IV Push, r2fgmjoqvhecerg 2 mg/mL Inj [F] 4 mg 2 mL, IV Push, q6hr Problem list: All ProblemsImpaired skin integrity / SNOMED CT 22762696 / ConfirmedProblem added on documentation of skin impairments.At risk for falls / SNOMED CT 703589270 / PossibleProblem added when Risk for Falls Careplan was initiated.Smoker / IMO [id number] / ConfirmedAdded secondary to documentation in Social History.Resolved: Asthma / SNOMED CT 818904782 Histories Past Medical History: ResolvedAsthma ([id number]): Resolved. Family History: AsthmaMother Procedure history: Incision AND drainage (SNOMED CT 588299940) performed by Jose M Patten MD on 10/08/2017 at 27 Years.Comments:10/08/2017 19:32 - Magda RN, Julieta IGLESIAS AND D AND IRRIGATION LEFT LOWER BACK ABCESS 10 X 15 CMIncision AND drainage (SNOMED CT 486957481).Comments:10/06/2017 06:12 - Raulito THOMPSON, Philippe right hand Social History Social & Psychosocial UuesnrEiwwbcv80/26/2017 Risk Assessment: Denies Alcohol UseSubstance Abuse10/05/2017 Risk Assessment: Denies Substance JooooZgdhutz02/26/2017 Risk Assessment: High Risk10/05/2017 Use: Current Every [...] Delarosa MD on October 08, 2017 08:58 [facility] info: [id number], [facility], Inpatient, 10/05/2017 - . Condition: Fair. Impression [...] wound VAC. Awaiting precertification by insurance. Normal [facility] Comment on above: Result Comment: Elec [...] (4)ceFAZolin 2 gram 50 mL, IV Piggyback, h4vomvyrzvxh sodium 100 mg Cap [F] 100 mg 1 cap(s), Oral, BIDnicotine 14 mg/24 hr Transderm ER Film [F] 14 mg 1 patch(es), TransDermal, DailySodium Chloride 0.9% 500 mL 500 mL, IVContinuous: (1)Lactated Ringers 1,000 mL 1,000 mL, IV, 20 mL/hrPRN: (6)acetaminophen 325 mg Tab UD [F] 650 mg 2 tab(s), Oral, a8teiwfwsfxbxrtnq-diaalybhx 325 mg-5 mg Tab [F] 1 tab(s), Oral, y1rzwhsperdol 0.083% Inh Mary 3 mL [F] 2.5 mg 3 mL, NEB, p1cqfpkopyrce CFC free 90 mcg/inh Inh Aer w/Adapt 8.5 gm [F] 180 microgram 2 puff(s), Inhalation, b6qqyltxwgqu 2 mg/mL preservative-free SOLN [F] 2 mg 1 mL, IV Push, f9dyiokggfooaxp 2 mg/mL Inj [F] 4 mg 2 mL, IV Push, q6hr Problem list: All ProblemsAt risk for falls / SNOMED CT 413605146 / PossibleProblem added when Risk for Falls Careplan was initiated.Impaired skin integrity / SNOMED CT 83897270 / ConfirmedProblem added on documentation of skin impairments.Smoker / IMO [id number] / ConfirmedAdded secondary to documentation in Social [...] on dc for total 3 weeks. . [facility] Comment on above: Result Comment: Elec tronically [...] and goal information updated on white board. [facility] Progress Note-Physicianon Progress Note-Physician Patient: WILLOW WILKES [...] (4)ceFAZolin 2 gram 50 mL, IV Piggyback, n0ahbyrjmiad sodium 100 mg Cap [F] 100 mg 1 cap(s), Oral, BIDnicotine 14 mg/24 hr Transderm ER Film [F] 14 mg 1 patch(es), TransDermal, DailySodium Chloride 0.9% 500 mL 500 mL, IVContinuous: (1)Lactated Ringers 1,000 mL 1,000 mL, IV, 20 mL/hrPRN: (6)acetaminophen 325 mg Tab UD [F] 650 mg 2 tab(s), Oral, h6cdqwksixbjzehlv-klmlbzofq 325 mg-5 mg Tab [F] 1 tab(s), Oral, j6iwkiihirmgo 0.083% Inh Mary 3 mL [F] 2.5 mg 3 mL, NEB, k3tnrffdvcmxp CFC free 90 mcg/inh Inh Aer w/Adapt 8.5 gm [F] 180 microgram 2 puff(s), Inhalation, y7ifqmvuevfg 2 mg/mL preservative-free SOLN [F] 2 mg 1 mL, IV Push, h8vxvpjvhpswbkj 2 mg/mL Inj [F] 4 mg 2 mL, IV Push, q6hr Problem list: All ProblemsImpaired skin integrity / SNOMED CT 86821934 / ConfirmedProblem added on documentation of skin impairments.At risk for falls / SNOMED CT 112707498 / PossibleProblem added when Risk for Falls Careplan was initiated.Smoker / IMO [id number] / ConfirmedAdded secondary to documentation in Social History.Resolved: Asthma / SNOMED CT 030259528 Histories Past Medical History: ResolvedAsthma ([id number]): Resolved. Family History: AsthmaMother Procedure history: Incision AND drainage (SNOMED CT 768757156) performed by Jose M Patten MD on 10/08/2017 at 27 Years.Comments:10/08/2017 19:32 - Magda RN, Julieta NI AND D AND IRRIGATION LEFT LOWER BACK ABCESS 10 X 15 CMIncision AND drainage (SNOMED CT 726906567).Comments:10/06/2017 06:12 - Raulito THOMPSON, Philippe right hand Social History Social & Psychosocial WpdtqlVzaecfk98/26/2017 Risk Assessment: Denies Alcohol UseSubstance Abuse10/05/2017 Risk Assessment: Denies Substance VxuhbKyyrlok68/26/2017 Risk Assessment: High Risk10/05/2017 Use: Current Every [...] Delarosa MD on October 08, 2017 08:58 [facility] info: [id number], [facility], Inpatient, 10/05/2017 - . Condition: Fair. Impression [...] wound VAC. Awaiting precertification by insurance. Normal [facility] Comment on above: Result Comment: Elec [...] days.Performing LocationsR1: This test was performed at: [facility], [address] [place] [address], [address] , [facility] Comment on above: Performed By: #### 1 [id number], [id number], [id number], [id number], [id number], [id number], [id number] ####[facility] [address] [place] [id number] Bacteria culture MicrobiologyPROCEDUR E: Blood Culture [R1] Blood BODY SITE: Arm RCOLLECTED DATE/TIME: 10/05/2017 23:08 EST RECEIVED DATE/TIME: 10/06/2017 01:00 ESTSTART DATE/TIME: 10/06/2017 01:00 EST FREE TEXT SOURCE: Peripheral vein site #1Hwalter Mcfadden, Анна Torres M.D., Анна NicoleFINAL REPORTSFinal Report [] Verified Date/Time: 10/13/2017 03:00 ESTNo growth at 7 days.Performing LocationsR1: This test was performed at: [facility], [address] [place] [address], [address] , [facility] Comment on above: Performed By: #### 1 [id number], 3736616, [id number], 3641012, 47432573, 3305653, 6381140 ####[address] [address] Interdisciplinary Note - Brett e Manageron 10-13-2017 Interdisciplinary Note - Machine Shop Inspector Daily rounds completed with hospitalist Dr. Canchola, MARY Cuellar, Pharmacist Maryjane, Wooden Tank Erector Damaris, and RN present. Patient alert and oriented, involved in POC. Discussed medications, labs, and tests. No family present at this time. Patient?s goal is to return home with [facility] wound Vac at discharge. Anticipated discharge yet to be determined, awaiting wound vac authorization. Contact and goal information updated on white board. [facility] Progress Note-Physicianon Progress Note-Physician Patient: WILLOW WILKES [...] (4)ceFAZolin 2 gram 50 mL, IV Piggyback, x6ajcdjrooco sodium 100 mg Cap [F] 100 mg 1 cap(s), Oral, BIDnicotine 14 mg/24 hr Transderm ER Film [F] 14 mg 1 patch(es), TransDermal, DailySodium Chloride 0.9% 500 mL 500 mL, IVContinuous: (1)Lactated Ringers 1,000 mL 1,000 mL, IV, 20 mL/hrPRN: (5)acetaminophen 325 mg Tab UD [F] 650 mg 2 tab(s), Oral, w5mccxorrjvli 0.083% Inh Mary 3 mL [F] 2.5 mg 3 mL, NEB, d1vtqreelovfn CFC free 90 mcg/inh Inh Aer w/Adapt 8.5 gm [F] 180 microgram 2 puff(s), Inhalation, c6cuzppuiwst 2 mg/mL preservative-free SOLN [F] 4 mg 2 mL, IV Push, z7gdfxxqstjlwsm 2 mg/mL Inj [F] 4 mg 2 mL, IV Push, q6hr Problem list: All ProblemsImpaired skin integrity / SNOMED CT 85784104 / ConfirmedProblem added on documentation of skin impairments.At risk for falls / SNOMED CT 761145266 / PossibleProblem added when Risk for Falls Careplan was initiated.Smoker / IMO [id number] / ConfirmedAdded secondary to documentation in Social History.Resolved: Asthma / SNOMED CT 673904723 Histories Past Medical History: ResolvedAsthma ([id number]): Resolved. Family History: AsthmaMother Procedure history: Incision AND drainage (SNOMED CT 046916767) performed by Jose M Patten MD on 10/08/2017 at 27 Years.Comments:10/08/2017 19:32 - Magda RN, Julieta IGLESIAS AND D AND IRRIGATION LEFT LOWER BACK ABCESS 10 X 15 CMIncision AND drainage (SNOMED CT 601360229).Comments:10/06/2017 06:12 - Philippe Cabezas RN right hand Social History Social & Psychosocial YjkfppSmjjwxe18/26/2017 Risk Assessment: Denies Alcohol UseSubstance Abuse10/05/2017 Risk Assessment: Denies Substance TgwkdDngbsqv18/26/2017 Risk Assessment: High Risk10/05/2017 Use: Current Every [...] Delarosa MD on October 08, 2017 08:58 [facility] info: [id number], Jin George, Inpatient, 10/05/2017 - . Condition: [...] homebound wound VAC. Awaiting precertification by insurance. [facility] Comment on above: Result Comment: Elec tronically Signed By: Sushant DC, Juan Pablo\.br\Date and Time Signed: 10/13/17 11:01 EST Interdisciplinary Note - Brett e Manageron 10-12-2017 Interdisciplinary Note - Machine Shop Inspector Daily rounds completed with hospitalist Dr. Canchola, MARY Cuellar, Pharmacist Maryjane, Wooden Tank Erector Damaris, and Dara RN present. Patient alert and oriented, involved in POC. Discussed medications, labs, and tests. Await Dr. Patten and ID recommendations. Oral Atbx at d/c. No family present at this time. Patient?s goal is to return home with [facility] at discharge. Anticipated discharge yet to be determined, possibly later today. Contact and goal information updated on white board. [facility] Main OR Intraoperative Recor don 10-12-2017 Main OR Intraoperative Record IntraOp Document Type FT Summary Primary Physician: Sandor DC, Jose M Camilo Finalized Date/Time: 10/12/17 11:18:39 Pt. Name: WILLOW WILKES/Sex: 1990 Male Med Rec #: [id number] Physician: Анна Torres M.D. Financial #: [id number] Pt. Type: I Room/Bed: [place] [address] Admit/Disch: 10/05/17 17:35:00 - Institution: Case Times [...] Role Performed Anesthesiologist of Surgeon - Primary Industrial Trainer - Primary Record Time In 10/08/17 14:16:00 [...] 6 Case Attendee Kenroy ARANGON, RN, Ben NATURAL GAS TECHNICIAN, Junior Downey RN, CNOR, CRNFA, Yoselin ONC, Sharmaine Role Performed Industrial Trainer - Other Scrub - Primary Industrial Trainer - Other Time In 10/08/17 14:16:00 10/08/17 [...] and tissue Entry 1 Skin Integrity Intact, [place], Warm, and Skin Abnormality Yes Dry Abnormality [...] Modified By: Shayan THOMPSON, CNOR, CRNANDAA, ONC, [facility] 10/08/17 14:20:39 Post-Care Text: The patient is [...] CNOR, CRNFA, Shayan RN, CNOR, CRNFA, ONC, [facility] 10/08/17 ONC, [facility] 10/08/17 ONC, [facility] 10/08/17 14:22:12 14:22:12 14:31:18 Entry 4 Equipment Type MISTRAL FORCED AIR WARMING SYSTEM UNIT[F] Equipment Number M [id number] Equipment Setting Outcomes Met? Yes Last Modified By: Shayan THOMPSON, CNOR, CRNANDAA, ONC, [facility] 10/08/17 14:36:01 Post-Care Text: The patient is [...] RN Patient Status Stable Skin. Condition Intact, [place], Warm, and Description EXCEPT FOR OPERATIVE Dry [...] safely administered during the perioperative period For [facility] please see scanned medication reconcilliation form for [...] AIR Quantity 1 Aid PLUS LOWER BODY [[id number]][F] Fluid/[place] Unit Mistral warming system Body Site Lower anterior torso Last Modified By: LUIS Downey RN, CRNFA, ONC, [place] 10/08/17 14:36:32 Case Comments Finalized By: Vi Ambriz CST Document Signatures Signed By: LUIS Downey RN, CRNFA, ONC, [place] 10/08/17 14:52 Vi Ambriz CST 10/12/17 11:18 Normal [facility] Progress Note-Physicianon Progress Note-Physician Patient: WILLOW WILKES Age: 27 years Sex: Male : 1990 Associated Diagnoses: None Author: Julian Cyr M.D Subjective Doing better overall since I&D. Culture with MSSA. Health Status Allergies: Allergic Reactions (Selected)No Known Allergies Current medications: Medications (10) ActiveScheduled: (4)ceFAZolin 2 gram 50 mL, IV Piggyback, o1hlpnffstco sodium 100 mg Cap [F] 100 mg 1 cap(s), Oral, BIDnicotine 14 mg/24 hr Transderm ER Film [F] 14 mg 1 patch(es), TransDermal, DailySodium Chloride 0.9% 500 mL 500 mL, IVContinuous: (1)Lactated Ringers 1,000 mL 1,000 mL, IV, 20 mL/hrPRN: (5)acetaminophen 325 mg Tab UD [F] 650 mg 2 tab(s), Oral, y2sxzbbqdckhy 0.083% Inh Mary 3 mL [F] 2.5 mg 3 mL, NEB, x3rgkxkguders CFC free 90 mcg/inh Inh Aer w/Adapt 8.5 gm [F] 180 microgram 2 puff(s), Inhalation, g7wyznsxbpbl 2 mg/mL preservative-free SOLN [F] 4 mg 2 mL, IV Push, o8vfeidzxbkcsnu 2 mg/mL Inj [F] 4 mg 2 mL, IV Push, q6hr Problem list: All ProblemsAt risk for falls / SNOMED CT 525217980 / PossibleProblem added when Risk for Falls Careplan was initiated.Impaired skin integrity / SNOMED CT 02108946 / ConfirmedProblem added on documentation of skin impairments.Smoker / IMO [id number] / ConfirmedAdded secondary to documentation in Social [...] 2-3 weeks. Wound care per surgery.. Normal [facility] Comment on above: Result Comment: Elec [...] (4)ceFAZolin 2 gram 50 mL, IV Piggyback, p0bdnzlsusos sodium 100 mg Cap [F] 100 mg 1 cap(s), Oral, BIDnicotine 14 mg/24 hr Transderm ER Film [F] 14 mg 1 patch(es), TransDermal, DailySodium Chloride 0.9% 500 mL 500 mL, IVContinuous: (1)Lactated Ringers 1,000 mL 1,000 mL, IV, 20 mL/hrPRN: (5)acetaminophen 325 mg Tab UD [F] 650 mg 2 tab(s), Oral, l4gqsumcsaxqx 0.083% Inh Mary 3 mL [F] 2.5 mg 3 mL, NEB, d6jfpqlpffjbn CFC free 90 mcg/inh Inh Aer w/Adapt 8.5 gm [F] 180 microgram 2 puff(s), Inhalation, l8smoxuwyqxt 2 mg/mL preservative-free SOLN [F] 4 mg 2 mL, IV Push, i1pjzisavsbdixv 2 mg/mL Inj [F] 4 mg 2 mL, IV Push, q6hr Problem list: All ProblemsImpaired skin integrity / SNOMED CT 04155052 / ConfirmedProblem added on documentation of skin impairments.At risk for falls / SNOMED CT 131818068 / PossibleProblem added when Risk for Falls Careplan was initiated.Smoker / IMO 684201 / ConfirmedAdded secondary to documentation in Social History.Resolved: Asthma / SNOMED CT 477270883 Histories Past Medical History: ResolvedAsthma ([id number]): Resolved. Family History: AsthmaMother Procedure history: Incision AND drainage (SNOMED CT 617991776) performed by Jose M Patten MD on 10/08/2017 at 27 Years.Comments:10/08/2017 19:32 - Magda RN, Julieta NI AND D AND IRRIGATION LEFT LOWER BACK ABCESS 10 X 15 CMIncision AND drainage (SNOMED CT 274979953).Comments:10/06/2017 06:12 - Philippe Cabezas RN right hand Social History Social & Psychosocial JvlsnqYdforcg01/26/2017 Risk Assessment: Denies Alcohol UseSubstance Abuse10/05/2017 Risk Assessment: Denies Substance BxumvYjnmeeo14/26/2017 Risk Assessment: High Risk10/05/2017 Use: Current Every [...] Delarosa MD on October 08, 2017 08:58 [facility] info: [id number], Jin Ariel, Inpatient, 10/05/2017 - . Condition: [...] soon pending Wound Vac change today. Normal [facility] Comment on above: Result Comment: Elec [...] (4)ceFAZolin 2 gram 50 mL, IV Piggyback, m0fsomykmzwy sodium 100 mg Cap [F] 100 mg 1 cap(s), Oral, BIDnicotine 14 mg/24 hr Transderm ER Film [F] 14 mg 1 patch(es), TransDermal, DailySodium Chloride 0.9% 500 mL 500 mL, IVContinuous: (1)Lactated Ringers 1,000 mL 1,000 mL, IV, 20 mL/hrPRN: (6)acetaminophen 325 mg Tab UD [F] 650 mg 2 tab(s), Oral, d9xiiqscdsdhw 0.083% Inh Mary 3 mL [F] 2.5 mg 3 mL, NEB, p3ymubkxmrjqy CFC free 90 mcg/inh Inh Aer w/Adapt 8.5 gm [F] 180 microgram 2 puff(s), Inhalation, l2fwbgasiaivz 30 mg/mL Inj 1 mL [F] 30 mg 1 mL, IV, m3ilwhvxyjcs 10 mg/mL preservative-free SOLN [F] 4 mg 0.4 mL, IV Push, y9gavnqpyruqkex 2 mg/mL Inj [F] 4 mg 2 mL, IV Push, q6hr Problem list: All ProblemsImpaired skin integrity / SNOMED CT 71330698 / ConfirmedProblem added on documentation of skin impairments.Smoker / IMO 461665 / ConfirmedAdded secondary to documentation in Social History.Resolved: Asthma / SNOMED CT 739593961 Histories Past Medical History: ResolvedAsthma ([id number]): Resolved. Family History: AsthmaMother Procedure history: Incision AND drainage (SNOMED CT 794664537) performed by Jose M Patten MD on 10/08/2017 at 27 Years.Comments:10/08/2017 19:32 - Magda RN, Julieta IGLESIAS AND D AND IRRIGATION LEFT LOWER BACK ABCESS 10 X 15 CMIncision AND drainage (SNOMED CT 943315420).Comments:10/06/2017 06:12 - Philippe Cabezas RN right hand Social History Social & Psychosocial AuhfljDxmskoy57/26/2017 Risk Assessment: Denies Alcohol UseSubstance Abuse10/05/2017 Risk Assessment: Denies Substance VgzpxRxxkuro88/26/2017 Risk Assessment: High Risk10/05/2017 Use: Current Every [...] Delarosa MD on October 08, 2017 08:58 [facility] info: [id number], [facility], Inpatient, 10/05/2017 - . Condition: Fair. Impression [...] pending Wound Vac change on 10/12/17 Normal [facility] Comment on above: Result Comment: Elec tronically Signed By: Sushant DC, Juan Pablo\.br\Date and Time Signed: 10/11/17 12:43 EST Auto Diffon 10-10-2017 Basophils Auto #/vol (Bld) 0.1 E9/L Normal 0.0-0.2 [facility] Comment on above: Order Comment: Order Added by Discern Expert. Performed By: #### 1 6099122, 7387545, 51073122, 7128375, 31103718, 9619922, 1654852 ####[facility] [address] [place] [address] Basophils Auto #/vol (Bld) 0.9 % Normal 0.0-2.0 [facility] Comment on above: Order Comment: Order Added by Discern Expert. Performed By: #### 1 7135124, 5183910, 49992387, 2306490, 97800939, 5301970, 8957526 ####[facility] [address] [place] [address] Eosinophils 0.7 E9/L High 0.0-0.5 [facility] Comment on above: Order Comment: Order Added by Discern Expert. Performed By: #### 1 8265873, 0753024, 79931949, 8791841, 06290442, 7776872, 6077840 ####[facility] [address] [place] [address] Eosinophils/100 leukocytes 7.4 % Normal 0.0-8.0 [facility] Comment on above: Order Comment: Order Added by Margo Expert. Performed By: #### 1 5940818, 9678700, 90420516, 4870444, 58568804, 4007696, 2033912 ####[facility] [address] [place] [address] Lymphocytes 2.4 E9/L Normal 1.0-4.0 [facility] Comment on above: Order Comment: Order Added by Discern Expert. Performed By: #### 1 0352541, 7120658, 72339842, 6493303, 50134895, 9121997, 7130342 ####[facility] [address] [place] [address] Lymphocytes/100 leukocytes 25.6 % Normal 14.0-50.0 [facility] Comment on above: Order Comment: Order Added by Margo Expert. Performed By: #### 1 2753699, 0226766, 14272895, 8680392, 99859077, 8899541, 3280180 ####[facility] [address] [place] [address] Monocytes 0.9 E9/L Normal 0.2-1.0 [facility] Comment on above: Order Comment: Order Added by Margo Expert. Performed By: #### 1 8706038, 6175313, 04205023, 2502697, 84678113, 0127011, 5303165 ####[facility] [address] [place] [address] Monocytes/100 leukocytes 9.9 % Normal 4.0-14.0 [facility] Comment on above: Order Comment: Order Added by Margo Expert. Performed By: #### 1 7840489, 7703528, 70772605, 0334425, 81850285, 9426220, 5664215 ####[facility] [address] [place] [address] Neutrophils 5.3 E9/L Normal 2.0-7.5 [facility] Comment on above: Order Comment: Order Added by Margo Expert. Performed By: #### 1 3676477, 9701417, 76975704, 0859125, 83696551, 5540033, 4003651 ####[facility] [address] [place] [address] Neutrophils/100 leukocytes 56.2 % Normal 36.0-75.0 [facility] Comment on above: Order Comment: Order Added by Discern Expert. Performed By: #### 1 2680610, 5023997, 17797997, 9523703, 56757837, 9534126, 1075489 ####[facility] [address] [place] [address] C [place] 10-10-2017 Wound Culture MicrobiologyPROCEDUR E: [...] SPerforming LocationsR1: This test was performed at: [facility], [address] [place] [address], [address] , [facility] Comment on above: Performed By: #### 1 9935932, 4462773, 86278787, 7521390, 21849350, 0755301, 3412420 ####[address] [address] CBC w/ Auto Diffon 7 Erythrocyte distribution width Auto Ratio (RBC) 13.3 % Normal 10.9-14.2 [facility] Comment on above: Performed By: #### 1 6660726, 0881178, 49953134, 6788777, 31635187, 7717860, 9098257 ####[place] [address] [place] [address] Erythrocytes (RBC) 3.4 E12/L Low 4.3-5.9 [facility] Comment on above: Performed By: #### 1 8968336, 7468162, 50675646, 1803152, 42759252, 1374298, 2463495 ####[place] [address] [place] [address] Hematocrit (HCT) 31.1 % Low 37.7-49.0 [facility] Comment on above: Performed By: #### 1 2520723, 2264454, 71565425, 3608812, 90949117, 5767387, 8322289 ####[place] [address] [place] [address] Hemoglobin mass conc (Bld) 10.8 g/dL Low 13.5-17.5 [facility] Comment on above: Performed By: #### 1 7367183, 6100105, 15201030, 1032733, 63801276, 0271751, 9176338 ####[place] [address] MCH 31.9 pg Normal 27.0-34.0 [facility] Comment on above: Performed By: #### 1 1102204, 6476810, 40898273, 8612381, 45046646, 1622600, 4948820 ####[place] [address] MCHC mass conc (RBC) 34.6 g/dL Normal 31.4-39.3 [facility] Comment on above: Performed By: #### 1 0524774, 3086270, 07376085, 3578354, 62614046, 0081254, 4909402 ####[place] [address] MCV 92.1 fL Normal 80.0-100.0 [facility] Comment on above: Performed By: #### 1 6627361, 8983444, 22371830, 3497650, 95696493, 6752182, 1292313 ####[place] [address] Platelet mean volume (PMV) 6.8 fL Normal 6.4-10.8 [facility] Comment on above: Performed By: #### 1 8401298, 7225272, 19621263, 2436207, 11872311, 9681465, 0479714 ####[facility] [address] [place] [address] Platelets 497.0 E9/L Normal 150.0-500. 0 [facility] Comment on above: Performed By: #### 1 8164818, 1210235, 04504605, 6797284, 38329763, 9683658, 5780607 ####[facility] [address] [place] [address] WBC (Leukocytes) 9.4 E9/L Normal 4.0-11.0 [facility] Comment on above: Result Comment: Slid e reviewed by DK. Performed By: #### 1 1156255, 2067213, 74560356, 8383956, 87211245, 3000724, 3844125 ####[facility] [address] [place] [address] Consultation Noteon 10-10-20 Consultation Note HOSPITAL REGULATIONS [...] anesthesia today.Jose M Patten MD, FACSaekDictated: 10/08/2017 #[id number]: 10/09/2017 #[id number]: Luis F Benavides D.O.Myra Middleton M.D.Jose M Patten MD, FACS [facility] Comment on above: Result Comment: Elec tronically Signed By: Sandor DC, Jose M Camilo\.br\Date and Time Signed: 10/10/17 16:08 EST Interdisciplinary Note - Brett e Manageron 10-10-2017 Interdisciplinary Note - Machine Shop Inspector Spoke to Dr. Canchola who anticipates pt. to stay till Wednesday. I spoke to pt. regarding [facility] and a home wound vac and he is agreable and understands the homebound status. Referral sent to resource center. [facility] Interdisciplinary Note - Nut ritionon 10-10-2017 Interdisciplinary [...] this time. PO encouraged. Nutrition POC implemented. [facility] Operative Reporton 7 Operative Report Date of [...] I was able to contact the [facility] and they were able to remove the packing and place aWound VAC in the Recovery Room to further aid in healing of this largeabscess cavity. This was all tolerated well by the patient.Jose M Patten MD, FACSglsDictated: 10/08/2017 #[id number]: 10/09/2017 #[id number]: Myra Middleton M.D.Jose M Patten MD, FACS [facility] Comment on above: Result Comment: Elec tronically [...] bad as it did on Wednesday. Normal [facility] Progress Note-Physicianon Progress Note-Physician Patient: WILLOW [...] (4)ceFAZolin 2 gram 50 mL, IV Piggyback, t3ynzhtbplgj sodium 100 mg Cap [F] 100 mg 1 cap(s), Oral, BIDnicotine 14 mg/24 hr Transderm ER Film [F] 14 mg 1 patch(es), TransDermal, DailySodium Chloride 0.9% 500 mL 500 mL, IVContinuous: (1)Lactated Ringers 1,000 mL 1,000 mL, IV, 75 mL/hrPRN: (6)acetaminophen 325 mg Tab UD [F] 650 mg 2 tab(s), Oral, d7ikxpvsqypyr 0.083% Inh Mary 3 mL [F] 2.5 mg 3 mL, NEB, z6dunvxuvvxei CFC free 90 mcg/inh Inh Aer w/Adapt 8.5 gm [F] 180 microgram 2 puff(s), Inhalation, k0dngqgfhktbr 30 mg/mL Inj 1 mL [F] 30 mg 1 mL, IV, b3obhgfftjqm 10 mg/mL preservative-free SOLN [F] 4 mg 0.4 mL, IV Push, t7vwisjhuxkealp 2 mg/mL Inj [F] 4 mg 2 mL, IV Push, q6hr Problem list: All ProblemsImpaired skin integrity / SNOMED CT 33083092 / ConfirmedProblem added on documentation of skin impairments.Smoker / IMO [id number] / ConfirmedAdded secondary to documentation in Social History.Resolved: Asthma / SNOMED CT 096345296 Histories Past Medical History: ResolvedAsthma ([id number]): Resolved. Family History: AsthmaMother Procedure history: Incision AND drainage (SNOMED CT 927382228) performed by Jose M Patten MD on 10/08/2017 at 27 Years.Comments:10/08/2017 19:32 - Magda RN, Julieta IGLESIAS AND Musa AND IRRIGATION LEFT LOWER BACK ABCESS 10 X 15 CMIncision AND drainage (SNOMED CT 448762476).Comments:10/06/2017 06:12 - Raulito THOMPSON, Philippe right hand Social History Social & Psychosocial SkebjnZztdxba57/26/2017 Risk Assessment: Denies Alcohol UseSubstance Abuse10/05/2017 Risk Assessment: Denies Substance TvvlnJqqhstw67/26/2017 Risk Assessment: High Risk10/05/2017 Use: Current Every [...] Auto 56.2 % Lymph Auto 25.6 % [place] Auto 9.9 % Eos Auto 7.4 % Basophil Auto 0.9 % Neutro Absolute 5.3 E9/L Lymph Absolute 2.4 E9/L [place] Absolute 0.9 E9/L Eos Absolute 0.7 E9/L [...] on October 08, 2017 08:58 ESTEncounter info: [id number], [facility], Inpatient, 10/05/2017 - . Condition: Fair. Impression [...] and Wound Vac change on 10/12/17 Normal [facility] Comment on above: Result Comment: Elec tronically Signed By: Sushant DC, Juan Pablo\.br\Date and Time Signed: 10/10/17 11:42 EST Auto Diffon 10-09-2017 Basophils Auto #/vol (Bld) 0.1 E9/L Normal 0.0-0.2 [facility] Comment on above: Order Comment: Order Added by Discern Expert. Performed By: #### 1 5787756, 8410581, 18705473, 2176918, 88021960, 4782514, 3468130 ####[facility] [address] [place] [address] Basophils Auto #/vol (Bld) 0.4 % Normal 0.0-2.0 [facility] Comment on above: Order Comment: Order Added by Discern Expert. Performed By: #### 1 8143969, 9859553, 83992359, 1587727, 18943982, 4324548, 2133704 ####[facility] [address] [place] [address] Eosinophils 0.1 E9/L Normal 0.0-0.5 [facility] Comment on above: Order Comment: Order Added by Discern Expert. Performed By: #### 1 8196016, 6432753, 44473066, 2651423, 02160309, 0513240, 9250113 ####[address] [place] [address] Eosinophils/100 leukocytes 0.8 % Normal 0.0-8.0 [facility] Comment on above: Order Comment: Order Added by Discern Expert. Performed By: #### 1 7155143, 2477591, 68626591, 2574101, 48836309, 7551376, 6778687 ####[address] [place] [address] Lymphocytes 1.3 E9/L Normal 1.0-4.0 [facility] Comment on above: Order Comment: Order Added by Discern Expert. Performed By: #### 1 4880686, 1351696, 72229818, 2941570, 16790595, 7333697, 0455394 ####[address] [address] Lymphocytes/100 leukocytes 8.2 % Low 14.0-50.0 [facility] Comment on above: Order Comment: Order Added by Discern Expert. Performed By: #### 1 4893474, 9936088, 89509751, 4110817, 46578253, 5717993, 5375531 ####[facility] [address] [place] [address] Monocytes 1.2 E9/L High 0.2-1.0 [facility] Comment on above: Order Comment: Order Added by Margo Expert. Performed By: #### 1 9758598, 5340434, 15516187, 5353234, 34796764, 0594675, 9347909 ####[address] [place] [address] Monocytes/100 leukocytes 8.0 % Normal 4.0-14.0 [facility] Comment on above: Order Comment: Order Added by Discern Expert. Performed By: #### 1 2991928, 6421148, 48412280, 8066551, 52913237, 8648230, 9225269 ####[facility] [address] [place] [address] Neutrophils 12.7 E9/L High 2.0-7.5 [facility] Comment on above: Order Comment: Order Added by Discern Expert. Performed By: #### 1 9086286, 1242813, 29450193, 8734749, 21208501, 9963180, 1129562 ####[address] [place] [address] Neutrophils/100 leukocytes 82.6 % High 36.0-75.0 [facility] Comment on above: Order Comment: Order Added by Discern Expert. Performed By: #### 1 6858794, 7931788, 10694673, 5384693, 26172853, 3450204, 6611969 ####[address] [address] CBC w/ Auto Diffon 7 Erythrocyte distribution width Auto Ratio (RBC) 13.2 % Normal 10.9-14.2 [facility] Comment on above: Performed By: #### 1 9281688, 3821724, 93528941, 8550933, 04859837, 6091918, 9977359 ####[address] [place] [address] Erythrocytes (RBC) 3.6 E12/L Low 4.3-5.9 [facility] Comment on above: Performed By: #### 1 9149103, 1689174, 09101597, 8265873, 01751605, 5433889, 3241580 ####[address] [place] [address] Hematocrit (HCT) 32.3 % Low 37.7-49.0 [facility] Comment on above: Performed By: #### 1 5913070, 3703400, 50261516, 0407190, 42322650, 1275144, 2531968 ####[address] [place] [address] Hemoglobin mass conc (Bld) 11.0 g/dL Low 13.5-17.5 [facility] Comment on above: Performed By: #### 1 1526085, 9390370, 11663356, 4995540, 84376823, 7629923, 5159711 ####[address] [place] [address] MCH 31.0 pg Normal 27.0-34.0 [facility] Comment on above: Performed By: #### 1 2068381, 7654073, 56593527, 0328000, 75552506, 4017344, 5243648 ####[place] [address] MCHC mass conc (RBC) 34.1 g/dL Normal 31.4-39.3 [facility] Comment on above: Performed By: #### 1 8273574, 6900570, 03167850, 9439943, 74645545, 3136912, 1740770 ####[place] [address] MCV 91.0 fL Normal 80.0-100.0 [facility] Comment on above: Performed By: #### 1 0550152, 9716923, 23471150, 8335485, 05235221, 8189815, 0406751 ####[address] [place] [address] Platelet mean volume (PMV) 7.1 fL Normal 6.4-10.8 [facility] Comment on above: Performed By: #### 1 6269574, 5610603, 15638172, 8109182, 03539124, 0027206, 9195507 ####[address] [address] Platelets 429.0 E9/L Normal 150.0-500. 0 [facility] Comment on above: Performed By: #### 1 7457567, 4413986, 38126449, 1774009, 99500832, 8093362, 5145995 ####[facility] [address] [place] [address] WBC (Leukocytes) 15.4 E9/L High 4.0-11.0 [facility] Comment on above: Result Comment: Slid e reviewed by AC. Performed By: #### 1 6947265, 3791632, 09217440, 2984124, 18018499, 5672419, 6300686 ####[facility] [address] [place] [address] Progress Note-Physicianon Progress Note-Physician Patient: WILLOW WILKES [...] mL 493 mg 0.99 EA, IV Piggyback, r13ldxqjxzajp 14 mg/24 hr Transderm ER Film [F] 14 mg 1 patch(es), TransDermal, Dailypiperacillin-tazobactam 3 g-0.375 g 3.375 gram 1 EA, IV Piggyback, h3uqZaudnsvvhr: (1)Lactated Ringers 1,000 mL 1,000 mL, IV, 75 mL/hrPRN: (6)acetaminophen 325 mg Tab UD [F] 650 mg 2 tab(s), Oral, p9hgacoxpcyiz 0.083% Inh Mary 3 mL [F] 2.5 mg 3 mL, NEB, m5hlitpfqkrmi CFC free 90 mcg/inh Inh Aer w/Adapt 8.5 gm [F] 180 microgram 2 puff(s), Inhalation, f6ksafdevcywv 30 mg/mL Inj 1 mL [F] 30 mg 1 mL, IV, t4iaifugzurv 10 mg/mL preservative-free SOLN [F] 4 mg 0.4 mL, IV Push, p1uwchwlcfdedjn 2 mg/mL Inj [F] 4 mg 2 mL, IV Push, q6hr Problem list: All ProblemsImpaired skin integrity / SNOMED CT 62458357 / ConfirmedProblem added on documentation of skin impairments.Smoker / IMO [id number] / ConfirmedAdded secondary to documentation in Social History.Resolved: Asthma / SNOMED CT 601593405 Histories Past Medical History: ResolvedAsthma ([id number]): Resolved. Family History: AsthmaMother Procedure history: Incision AND drainage (SNOMED CT 303291519) performed by Jose M Patten MD on 10/08/2017 at 27 Years.Comments:10/08/2017 19:32 - Magda THOMPSON, Julieta IGLESIAS AND Musa AND IRRIGATION LEFT LOWER BACK ABCESS 10 X 15 CMIncision AND drainage (SNOMED CT 579849606).Comments:10/06/2017 06:12 - Philippe Cabezas RN right hand Social History Social & Psychosocial KnzozmTjkhwlz96/26/2017 Risk Assessment: Denies Alcohol UseSubstance Abuse10/05/2017 Risk Assessment: Denies Substance YqtlbVkqnejq64/26/2017 Risk Assessment: High Risk10/05/2017 Use: Current Every [...] % HI Lymph Auto 8.2 % LOW [place] Auto 8.0 % Eos Auto 0.8 % Basophil Auto 0.4 % Neutro Absolute 12.7 E9/L HI Lymph Absolute 1.3 E9/L [place] Absolute 1.2 E9/L HI Eos Absolute 0.1 [...] on October 08, 2017 08:58 ESTEncounter info: [id number], Abdi - Payne, Inpatient, 10/05/2017 - . Condition: Fair. Impression [...] result and Wound Vac change on 10/12/17 [facility] Comment on above: Result Comment: Elec tronically [...] care per Wound Clinic.Will follow as needed. [facility] Comment on above: Result Comment: Elec tronically Signed By: Jose M Patten MD\.br\Date and Time Signed: 10/09/17 07:53 EST Vanco Troughon 10-09-2017 VANCOMYCIN <4 Low 10-20 [facility] Comment on above: Result Comment: Resu lts verified by dilution. Performed By: #### 1 8757189, 6163417, 48063306, 9354721, 77610950, 7302278, 3957978 ####[facility] [address] [place] [address] Dino 10-08-2017 Alanine aminotransferase (ALT) 63 Int._Unit/L High 6-46 [facility] Comment on above: Performed By: #### 1 6811873, 1098665, 23858419, 8166103, 00928488, 2783408, 3109494 ####[facility] [address] [place] [address] Navid 10-08-2017 Aspartate aminotransferase (AST) 37 Int._Unit/L Normal 5-43 [facility] Comment on above: Performed By: #### 1 8402844, 3368025, 42444597, 5138728, 92176996, 1914838, 1728105 ####[facility] [address] [place] [address] Auto Diffon 10-08-2017 Basophils Auto #/vol (Bld) 0.1 E9/L Normal 0.0-0.2 [facility] Comment on above: Order Comment: Order added by Discern Expert. Performed By: #### 1 1223100, 0034800, 39972530, 5656861, 42442321, 7330619, 3660731 ####[facility] [address] [place] [address] Basophils Auto #/vol (Bld) 0.5 % Normal 0.0-2.0 [facility] Comment on above: Order Comment: Order added by Discern Expert. Performed By: #### 1 1409842, 9202692, 94223137, 0788907, 71824547, 0664578, 1187240 ####[facility] [address] [place] [address] Eosinophils 0.9 E9/L High 0.0-0.5 [facility] Comment on above: Order Comment: Order added by Discern Expert. Performed By: #### 1 5148845, 8448454, 23000509, 3973487, 58784825, 8028505, 5402929 ####[facility] [address] [place] [address] Eosinophils/100 leukocytes 5.6 % Normal 0.0-8.0 [facility] Comment on above: Order Comment: Order added by Discern Expert. Performed By: #### 1 0753586, 3816287, 98458818, 7545695, 24970751, 0565477, 3465642 ####[facility] [address] [place] [address] Lymphocytes 1.5 E9/L Normal 1.0-4.0 [facility] Comment on above: Order Comment: Order added by Margo Expert. Performed By: #### 1 4829563, 5493843, 30720562, 8234815, 30898389, 9732503, 5677021 ####[facility] [address] [place] [address] Lymphocytes/100 leukocytes 9.3 % Low 14.0-50.0 [facility] Comment on above: Order Comment: Order added by Margo Expert. Performed By: #### 1 2119260, 7603607, 28143756, 9443315, 89919869, 4954054, 8547251 ####[facility] [address] [place] [address] Monocytes 1.9 E9/L High 0.2-1.0 [facility] Comment on above: Order Comment: Order added by Margo Expert. Performed By: #### 1 2097395, 5153461, 70979848, 5666901, 62635563, 5034793, 8473486 ####[facility] [address] [place] [address] Monocytes/100 leukocytes 12.0 % Normal 4.0-14.0 [facility] Comment on above: Order Comment: Order added by Margo Expert. Performed By: #### 1 5350812, 5257108, 03745374, 5594663, 69801620, 8226661, 7507657 ####[facility] [address] [place] [address] Neutrophils 11.5 E9/L High 2.0-7.5 [facility] Comment on above: Order Comment: Order added by Discern Expert. Performed By: #### 1 4401529, 2726556, 77058040, 8458658, 01801515, 0034688, 3770970 ####[facility] [address] [place] [address] Neutrophils/100 leukocytes 72.6 % Normal 36.0-75.0 [facility] Comment on above: Order Comment: Order added by Discern Expert. Performed By: #### 1 6583969, 4239340, 11540884, 9776031, 20933840, 7255509, 9456046 ####[facility] [address] [place] [address] BMPon 10-08-2017 Anion gap 9 mmol/L Normal 6-16 [facility] Comment on above: Performed By: #### 1 9085693, 9237193, 68477114, 5550072, 87488161, 5143972, 4553317 ####[facility] [address] [place] [address] BUN/Creatinine Ratio 9 No Units Low 10-20 [facility] Comment on above: Performed By: #### 1 5327934, 0952842, 49554338, 9832155, 91861125, 8297199, 6324680 ####[facility] [address] [place] [address] Calcium 8.2 mg/dL Low 8.9-11.1 [facility] Comment on above: Performed By: #### 1 6512012, 0917245, 81227164, 4916300, 11997562, 0573676, 1160543 ####[facility] [address] [place] [address] Chloride 103 mmol/L Normal 101-111 [facility] Comment on above: Performed By: #### 1 5934552, 8407474, 91760101, 6767644, 58169775, 8658654, 9886801 ####[facility] [address] [place] [address] CO2 28 mmol/L Normal 21-31 [facility] Comment on above: Performed By: #### 1 0035874, 1128306, 03242496, 2004158, 59571087, 5449648, 7523194 ####[facility] [address] [place] [address] Creatinine 0.8 mg/dL Normal 0.5-1.3 [facility] Comment on above: Performed By: #### 1 3505543, 9159254, 16503354, 7730677, 92662493, 4777008, 3254237 ####[facility] [address] [place] [address] Glucose mass conc 98 mg/dL Normal 55-199 [facility] Comment on above: Result Comment: If t his glucose result represents a fasting glucose, interpretation should refer to the following reference range: 55-99 mg/dL Performed By: #### 1 4695563, 0398882, 11878207, 4550567, 84859045, 4791803, 8177143 ####[facility] [address] [place] [address] Potassium molar conc 4.0 mmol/L Normal 3.5-5.3 [facility] Comment on above: Performed By: #### 1 7458949, 6392491, 77458883, 6557576, 24382937, 5835112, 8850621 ####[facility] [address] [place] [address] Sodium 136 mmol/L Normal 135-145 [facility] Comment on above: Performed By: #### 1 6959424, 6279028, 09571127, 4647809, 28638011, 6804201, 1532698 ####[facility] [address] [place] [address] Urea nitrogen 7 mg/dL Normal 5-21 [facility] Comment on above: Performed By: #### 1 4774493, 1081772, 40871124, 7843701, 73188040, 8681530, 3958382 ####[facility] [address] [place] [address] CBC w/ Auto Diffon Erythrocyte distribution width Auto Ratio (RBC) 13.4 % Normal 10.9-14.2 [facility] Comment on above: Performed By: #### 1 2714134, 7008563, 55181798, 4765618, 81795929, 7733074, 5765666 ####[address] [place] [address] Erythrocytes (RBC) 3.7 E12/L Low 4.3-5.9 [facility] Comment on above: Performed By: #### 1 0486265, 4441102, 20070110, 0556235, 84201751, 0454681, 8018595 ####[address] [place] [address] Hematocrit (HCT) 34.5 % Low 37.7-49.0 [facility] Comment on above: Performed By: #### 1 6244602, 8915207, 96563384, 5747661, 44300028, 3212244, 1761256 ####[address] [place] [address] Hemoglobin mass conc (Bld) 12.1 g/dL Low 13.5-17.5 [facility] Comment on above: Performed By: #### 1 9745040, 6560698, 99549696, 7440977, 05855457, 7822225, 5167715 ####[facility] [address] [place] [address] MCH 32.3 pg Normal 27.0-34.0 [facility] Comment on above: Performed By: #### 1 6878586, 8850978, 21651696, 4187183, 90768825, 3496460, 3314683 ####[facility] [address] [place] [address] MCHC mass conc (RBC) 34.9 g/dL Normal 31.4-39.3 [facility] Comment on above: Performed By: #### 1 7960767, 3928899, 14362926, 3118959, 30677711, 5584481, 6473359 ####[facility] [address] [place] [address] MCV 92.4 fL Normal 80.0-100.0 [facility] Comment on above: Performed By: #### 1 9925866, 4914290, 47370285, 8587089, 87721947, 6361680, 5607058 ####[facility] [address] [place] [address] Platelet mean volume (PMV) 6.6 fL Normal 6.4-10.8 [facility] Comment on above: Performed By: #### 1 1934150, 3353580, 88221312, 5338304, 81603258, 5925503, 9054386 ####[facility] [address] [place] [address] Platelets 342.0 E9/L Normal 150.0-500. 0 [facility] Comment on above: Performed By: #### 1 7765440, 6572357, 60004696, 7005791, 07740178, 5547266, 4417363 ####[address] [place] [address] WBC (Leukocytes) 15.9 E9/L High 4.0-11.0 [facility] Comment on above: Performed By: #### 1 2062089, 5249139, 23606962, 3829914, 44461622, 6242022, 4542813 ####[facility] [address] [place] [address] Consultation Noteon 10-08-20 Consultation Note Patient: Alexx WILKES Age: 27 years Sex: Male : 1990 Associated Diagnoses: None Author: Julian Cyr M.D Chief Complaint 10/05/2017 18:24 EST pain in mid back to hip. ongoing X2 weeks. was seen [facility] but was told it was just muscle spasms. xray and urin were obtained in [facility]. History of Present Illness Patient with back [...] g 3.375 gram 1 EA, IV Piggyback, a4pcziepntwumg + Sodium Chloride 0.9% 500 mL 2 gram 2 EA, IV Piggyback, w55wfVovlwcjzfc: (2)Lactated Ringers 1,000 mL 1,000 mL, IV, 125 mL/hrSodium Chloride 0.9% 2,190 mL 2,190 mL, IV, 999 mL/hrPRN: (6)acetaminophen 325 mg Tab UD [F] 650 mg 2 tab(s), Oral, g8lbopzkkekid 0.083% Inh Mary 3 mL [F] 2.5 mg 3 mL, NEB, z2drkxslulrlx CFC free 90 mcg/inh Inh Aer w/Adapt 8.5 gm [F] 180 microgram 2 puff(s), Inhalation, s2wscgmxzyqxy 30 mg/mL Inj 1 mL [F] 30 mg 1 mL, IV, t6wphvjoazbp 10 mg/mL preservative-free SOLN [F] 4 mg 0.4 mL, IV Push, k4ubgwcjnccsbqr 2 mg/mL Inj [F] 4 mg 2 mL, IV Push, q6hr Problem list: All ProblemsImpaired skin integrity / SNOMED CT 65379473 / ConfirmedProblem added on documentation of skin impairments.Smoker / IMO 575383 / ConfirmedAdded secondary to documentation in Social History. Histories Past Medical History: ResolvedAsthma ([id number]): Resolved. Family History: AsthmaMother Procedure history: Incision AND drainage (917500510).Comments:10/06/2017 06:12 - Raulito THOMPSON, Philippe right hand Physical Examination Vital Signs 10/08/2017 08:26 EST Heart Rate Monitored 92 bpm 10/08/2017 08:25 EST Respiratory Rate 20 br/min 10/08/2017 08:25 EST Temperature Oral 36.9 DegC 10/08/2017 08:25 EST Systolic Blood Pressure 103 mmHg Diastolic Blood Pressure 62 mmHg 10/07/2017 23:26 EST Temperature Oral 38.6 DegC VT 10/07/2017 20:20 EST Temperature Oral 38.2 DegC HI 10/07/2017 15:00 EST Temperature Oral 36.8 DegC 10/07/2017 11:26 EST Temperature Oral 36.7 DegC 10/07/2017 07:22 EST Temperature Oral 37.2 DegC 10/07/2017 00:57 EST Temperature Oral 37.9 DegC VT General: Alert and oriented, Mild distress. Eye: [...] Results 10/08/2017 06:19 EST WBC 15.9 E9/L VT Hgb 12.1 gm/dL LOW Platelet 342.0 E9/L BUN 7 mg/dL Creatinine 0.8 mg/dL 10/07/2017 07:43 EST WBC 19.7 E9/L VT 10/06/2017 03:49 EST UA Spec Desc Clean [...] to see patient. Already consulted. . Normal [facility] Comment on above: Result Comment: Elec [...] hip. ongoing X2 weeks. was seen [place] [facility] but was told it was just muscle spasms. xray and urin were obtained in [place]. . History of Present Illness The patient [...] The patient stated he was seen at [facility] on and he was diagnosed with muscle strain. The patient denies any IV drug abuse or any other associated symptoms. Review of Systems Additional review of systems information: All other systems reviewed and otherwise negative. Health Status Allergies: Allergic Reactions (Selected)No Known Allergies. Past Medical/ Family/ Social History Medical history: ResolvedAsthma ([id number]): Resolved.. 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 Disposition: Admit time 10/06/17 01:35:00, Admit to Inpatient Telemetry Unit, Luis F Benavides DO Counseled: Patient, Family, Regarding diagnosis, Regarding diagnostic results, Regarding treatment plan. [facility] Comment on above: Result Comment: Elec tronically Signed By: Melissa Mcfadden, Анна Nicole\.br\Date and Time Signed: 10/08/17 09:28 EST Interdisciplinary Note - Brett e Manageron 10-08-2017 Interdisciplinary Note - Machine Shop Inspector Rounding with Dr. Canchola, Marisa [facility], Shelton [facility], Marcelino RN. Whiteboard updated. No family [...] of anticipated dc in a few days. [facility] Interdisciplinary Note - Soc ial Workeron 10-08-2017 Interdisciplinary Note - Purchasing Officer Consult received late this afternoon to order wound vac. SW spoke to CRM who will be following this weekend about need for wound vac as this SW is not familiar with how to order this as this is usually completed by wound care. SW will remain available. [facility] Main OR PACU I Recordon 09-11 Main OR PACU I Record PACU Phase I Document Type FT Summary Primary Physician: Jose M Patten MD Finalized Date/Time: 10/08/17 17:18:48 Pt. Name: CHUNG WILLOW Martins/Sex: 1990 Male Med Rec #: [id number] Physician: Анна Torres M.D. Financial #: [id number] Pt. Type: I Room/Bed: [place] [address] Admit/Disch: 10/05/17 17:35:00 - Institution: Case Times [...] By: Aixa Wolfe RN 10/08/17 17:18 Normal [facility] Progress Note-Physicianon Progress Note-Physician Patient: WILLOW [...] be discharged from PACU when criteria met. [facility] Comment on above: Result Comment: Elec tronically [...] mL 493 mg 0.99 EA, IV Piggyback, t29scfekpmqoaczcu-fatbwtmmlp 3 g-0.375 g 3.375 gram 1 EA, IV Piggyback, g9tqOsnvgwuhxt: (1)Lactated Ringers 1,000 mL 1,000 mL, IV, 125 mL/hrPRN: (6)acetaminophen 325 mg Tab UD [F] 650 mg 2 tab(s), Oral, d1dqeskfmimnn 0.083% Inh Mary 3 mL [F] 2.5 mg 3 mL, NEB, e7zhkjxoiwuqr CFC free 90 mcg/inh Inh Aer w/Adapt 8.5 gm [F] 180 microgram 2 puff(s), Inhalation, f1oxzgvnkfczi 30 mg/mL Inj 1 mL [F] 30 mg 1 mL, IV, c5oiydtcqshk 10 mg/mL preservative-free SOLN [F] 4 mg 0.4 mL, IV Push, e8dnoblucssasvy 2 mg/mL Inj [F] 4 mg 2 mL, IV Push, q6hr Problem list: All ProblemsImpaired skin integrity / SNOMED CT 56749737 / ConfirmedProblem added on documentation of skin impairments.Smoker / IMO 565968 / ConfirmedAdded secondary to documentation in Social History.Resolved: Asthma / SNOMED CT 652954378, Active Problems (2)Impaired skin integrity Smoker Histories Past Medical History: ResolvedAsthma (665062782): Resolved. Family History: AsthmaMother Procedure history: Incision AND drainage (003320453).Comments:10/06/2017 06:12 - Philippe Cabezas RN right hand Social History Social & Psychosocial NnssbiJyslivk02/26/2017 Risk Assessment: Denies Alcohol UseSubstance Abuse10/05/2017 Risk Assessment: Denies Substance LihcrSrwquwj19/26/2017 Risk Assessment: High Risk10/05/2017 Use: Current Every [...] 10/07/2017 20:20 EST Temperature Oral 38.2 DegC VT 10/07/2017 20:19 EST Systolic Blood Pressure 116 [...] are non-labored. Cardiovascular: Regular rhythm. Integumentary: Warm, [place]. Neurologic: Alert, Oriented. Review / Management Results review: Lab results 10/08/2017 06:19 EST WBC 15.9 E9/L HI RBC 3.7 E12/L LOW Hgb 12.1 gm/dL LOW Hct 34.5 % LOW MCV 92.4 fL MCH 32.3 pg MCHC 34.9 gm/dL RDW 13.4 % Platelet 342.0 E9/L MPV 6.6 fL Neutro Auto 72.6 % Lymph Auto 9.3 % LOW [place]osa Auto 12.0 % Eos Auto 5.6 % Basophil Auto 0.5 % Neutro Absolute 11.5 E9/L HI Lymph Absolute 1.5 E9/L [place] Absolute 1.9 E9/L HI Eos Absolute 0.9 [...] E9/L HI Lymph Abs Man 2.6 E9/L [place] Abs Man 1.4 E9/L HI Eos Abs [...] ECG interpretation: Reviewed ECG.. Condition: Stable. Plan [place] [employer] (ASA) physical status classification: Class II. Anesthetic Preoperative Plan Anesthesia: General. . Anesthetic plan, risks, benefits, and alternatives discussed with the patient and/or family. Patient verbalized understanding. Risks, benefits, alternatives discussed. Questions answered. . Normal [facility] Comment on above: Result Comment: Elec [...] mL 493 mg 0.99 EA, IV Piggyback, w13mfnrpssmokouuu-fdcwwtcoxn 3 g-0.375 g 3.375 gram 1 EA, IV Piggyback, n9spJthpemlbmt: (2)Lactated Ringers 1,000 mL 1,000 mL, IV, 125 mL/hrSodium Chloride 0.9% 2,190 mL 2,190 mL, IV, 999 mL/hrPRN: (6)acetaminophen 325 mg Tab UD [F] 650 mg 2 tab(s), Oral, t6fprhejnjgcj 0.083% Inh Mary 3 mL [F] 2.5 mg 3 mL, NEB, y9nvjpdmzzrgh CFC free 90 mcg/inh Inh Aer w/Adapt 8.5 gm [F] 180 microgram 2 puff(s), Inhalation, x9fariweymkeu 30 mg/mL Inj 1 mL [F] 30 mg 1 mL, IV, b6zgxtmwjclo 10 mg/mL preservative-free SOLN [F] 4 mg 0.4 mL, IV Push, i9dumuntbjpqxcg 2 mg/mL Inj [F] 4 mg 2 mL, IV Push, q6hr Problem list: All ProblemsImpaired skin integrity / SNOMED CT 81040430 / ConfirmedProblem added on documentation of skin impairments.Smoker / IMO [id number] / ConfirmedAdded secondary to documentation in Social History. Histories Past Medical History: ResolvedAsthma ([id number]): Resolved. Family History: AsthmaMother Procedure history: Incision AND drainage (SNOMED CT 017563154).Comments:10/06/2017 06:12 - Raulito THOMPSON, Philippe right hand Social History Social & Psychosocial ZjqmxjVavatry65/26/2017 Risk Assessment: Denies Alcohol UseSubstance Abuse10/05/2017 Risk Assessment: Denies Substance LofyaOelqeza80/26/2017 Risk Assessment: High Risk10/05/2017 Use: Current Every [...] 72.6 % Lymph Auto 9.3 % LOW [place] Auto 12.0 % Eos Auto 5.6 % Basophil Auto 0.5 % Neutro Absolute 11.5 E9/L HI Lymph Absolute 1.5 E9/L [place] Absolute 1.9 E9/L HI Eos Absolute 0.9 [...] Delarosa MD on October 08, 2017 08:58 [facility] info: [id number], Jin George, Inpatient, 10/05/2017 - . Condition: [...] D and deep tissue culture result. Normal [facility] Comment on above: Result Comment: Elec [...] MD Transcribed by: JENNIFFER Technologist: BRIT Normal [facility] eGFRon 10-08-2017 eGFR (black) mL/min/{1.73_m2} Normal >=59 [facility] Comment on above: Order Comment: Order added by Discern Expert. Result Comment: eGFR is race adjusted. AA=. Performed By: #### 1 4603171, 5565703, 62386148, 0052177, 20525865, 5821988, 6934595 ####[facility] [address] [place] [address] eGFR (non-black) mL/min/{1.73_m2} Normal >=59 [facility] Comment on above: Order Comment: Order added by Discern Expert. Result Comment: Rib Trim Separator curt kidney disease could be indicated at eGFR's of less than 60 mL/min/1.73m2. Kidney failure is indicated at less than 15 mL/min/1.73m2. Performed By: #### 1 9329462, 0379784, 43271168, 2394394, 82250536, 1475312, 6403480 ####[facility] [address] [place] [address] .Manual Abson 10-07-2017 BASOPHILS/LEUKOCYT ES:NFR.DF:PT:BLD:Q N:MANUAL COUNT 0.0 E9/L Normal 0.0-0.2 [facility] Comment on above: Performed By: #### 1 9413387, 2388375, 77874293, 3668081, 25991944, 0998674, 1112691 ####[address] [address] EOSINOPHILS/LEUKOC YTES:NFR.DF:PT:BLD :QN:MANUAL COUNT 1.0 E9/L High 0.0-0.5 [facility] Comment on above: Performed By: #### 1 9550447, 7844168, 48328256, 6004991, 71890954, 8645603, 8783495 ####[place] [address] [place] [address] LYMPHOCYTES/LEUKOC YTES:NFR.DF:PT:BLD :QN:MANUAL COUNT 2.6 E9/L Normal 1.0-4.0 [facility] Comment on above: Performed By: #### 1 1059128, 0341710, 88123275, 0337539, 17805623, 9017115, 5753409 ####[place] [address] [place] [address] MONOCYTES/LEUKOCYT ES:NFR.DF:PT:BLD:Q N:MANUAL COUNT 1.4 E9/L High 0.2-1.0 [facility] Comment on above: Performed By: #### 1 8575381, 3698158, 84397709, 0226141, 08221115, 6625266, 6592852 ####[facility] [address] [place] [address] Neutrophils 12.4 E9/L High 2.0-7.5 [facility] Comment on above: Performed By: #### 1 8139873, 5175376, 40825538, 9025426, 05909383, 4853363, 8643180 ####[facility] [address] [place] [address] Dino 10-07-2017 Alanine aminotransferase (ALT) 65 Int._Unit/L High 6-46 [facility] Comment on above: Performed By: #### 1 3023654, 1751471, 71487913, 0678252, 11671492, 6870966, 8524571 ####[facility] [address] [place] [address] Navid 10-07-2017 Aspartate aminotransferase (AST) 45 Int._Unit/L High 5-43 [facility] Comment on above: Performed By: #### 1 7985302, 8468924, 11040501, 1663905, 22038460, 0214530, 2695525 ####[facility] [address] [place] [address] Alk Phoson 10-07-2017 Alkaline phosphatase (ALP) 185 Int._Unit/L High 21-98 [facility] Comment on above: Performed By: #### 1 9841538, 0516792, 38650532, 3363239, 32824047, 4511028, 1801529 ####[facility] [address] [place] [address] BMPon 10-07-2017 Anion gap 10 mmol/L Normal 6-16 [facility] Comment on above: Order Comment: to be drawn all together at 7:30-8:00 per nurse Performed By: #### 1 9256399, 7972027, 31746012, 4285717, 42494520, 5744550, 4711460 ####[facility] [address] [place] [address] BUN/Creatinine Ratio 10 No Units Normal 10-20 [facility] Comment on above: Order Comment: to be drawn all together at 7:30-8:00 per nurse Performed By: #### 1 3126682, 5415494, 16385110, 8658477, 64291593, 1822538, 2778077 ####[facility] [address] [place] [address] Calcium 7.9 mg/dL Low 8.9-11.1 [facility] Comment on above: Order Comment: to be drawn all together at 7:30-8:00 per nurse Performed By: #### 1 5776406, 2112628, 72057793, 2259962, 63450088, 5086891, 6079505 ####[facility] [address] [place] [address] Chloride 102 mmol/L Normal 101-111 [facility] Comment on above: Order Comment: to be drawn all together at 7:30-8:00 per nurse Performed By: #### 1 8869929, 7878088, 56425535, 6667651, 15310789, 6666249, 3464350 ####[facility] [address] [place] [address] CO2 25 mmol/L Normal 21-31 [facility] Comment on above: Order Comment: to be drawn all together at 7:30-8:00 per nurse Performed By: #### 1 2277236, 3504811, 14953679, 2409127, 25705084, 9187572, 6846013 ####[facility] [address] [place] [address] Creatinine 0.8 mg/dL Normal 0.5-1.3 [facility] Comment on above: Order Comment: to be drawn all together at 7:30-8:00 per nurse Performed By: #### 1 9453194, 6008785, 87438612, 8851344, 16438250, 2583462, 1674153 ####[facility] [address] [place] [address] Glucose mass conc 94 mg/dL Normal 55-199 [facility] Comment on above: Order Comment: to be drawn all together at 7:30-8:00 per nurse Result Comment: If t his glucose result represents a fasting glucose, interpretation should refer to the following reference range: 55-99 mg/dL Performed By: #### 1 7528650, 8048617, 58264378, 0541660, 74146336, 0457360, 1067635 ####[facility] [address] [place] [address] Potassium molar conc 3.5 mmol/L Normal 3.5-5.3 [facility] Comment on above: Order Comment: to be drawn all together at 7:30-8:00 per nurse Performed By: #### 1 2447505, 6158457, 59027732, 7440022, 16987637, 5395410, 7265271 ####[facility] [address] [place] [address] Sodium 133 mmol/L Low 135-145 [facility] Comment on above: Order Comment: to be drawn all together at 7:30-8:00 per nurse Performed By: #### 1 5637270, 7451373, 88542752, 3972168, 93308528, 9599062, 3800209 ####[facility] [address] [place] [address] Urea nitrogen 8 mg/dL Normal 5-21 [facility] Comment on above: Order Comment: to be drawn all together at 7:30-8:00 per nurse Performed By: #### 1 6129191, 1179702, 55546220, 3402907, 57245472, 2501500, 3407940 ####[facility] [address] [place] [address] CBC w/ Auto Diffon 7 Erythrocyte distribution width Auto Ratio (RBC) 13.3 % Normal 10.9-14.2 [facility] Comment on above: Performed By: #### 1 6241950, 9547943, 78307363, 8517278, 47965212, 6815608, 5930098 ####[place] [address] Erythrocytes (RBC) 3.7 E12/L Low 4.3-5.9 [facility] Comment on above: Performed By: #### 1 4467311, 9828843, 76324090, 9002609, 90286715, 5744780, 4105452 ####[place] [address] [place] [address] Hematocrit (HCT) 34.2 % Low 37.7-49.0 [facility] Comment on above: Performed By: #### 1 0221814, 1123704, 68112816, 4696972, 39538354, 6485809, 1828505 ####[place] [address] Hemoglobin mass conc (Bld) 11.5 g/dL Low 13.5-17.5 [facility] Comment on above: Performed By: #### 1 2261765, 8425467, 58336935, 8057159, 79708471, 6195806, 3671657 ####[place] [address] MCH 31.0 pg Normal 27.0-34.0 [facility] Comment on above: Performed By: #### 1 4825902, 5735273, 24429595, 4448893, 79807992, 8520897, 5654066 ####[place] [address] MCHC mass conc (RBC) 33.7 g/dL Normal 31.4-39.3 [facility] Comment on above: Performed By: #### 1 3287635, 2920368, 37549334, 8542726, 00825245, 1839908, 1207766 ####[place] [address] MCV 92.2 fL Normal 80.0-100.0 [facility] Comment on above: Performed By: #### 1 3605558, 3670474, 58052908, 6482347, 67149819, 3177067, 4640424 ####[facility] [address] [place] [address] Platelet mean volume (PMV) 7.0 fL Normal 6.4-10.8 [facility] Comment on above: Performed By: #### 1 2903619, 8802888, 90362925, 5211268, 86268725, 3095678, 3346586 ####[facility] [address] [place] [address] Platelets 323.0 E9/L Normal 150.0-500. 0 [facility] Comment on above: Performed By: #### 1 4323681, 2727214, 90688561, 9508250, 81208688, 3777788, 4064533 ####[place] [address] [place] [address] WBC (Leukocytes) 19.7 E9/L High 4.0-11.0 [facility] Comment on above: Performed By: #### 1 7978882, 8179420, 66598360, 1430538, 72712162, 8173110, 4754048 ####[facility] [address] [place] [address] Coding Queryon 10-07-2017 Coding Query -From: Cayetano [...] in addition to fever. thank you. Normal [facility] Interdisciplinary Note - Brett e Manageron 10-07-2017 Interdisciplinary Note - Machine Shop Inspector Rounding with Dr. Davidson, Marisa [facility], Trey [facility], Maryann RN. Whiteboard updated. No family present. Dr. Cyr to see tomorrow. Pt. in isolation. Pt. aware of plan to stay today and Dr. Cyr to see tomorrow. Normal [facility] Manual Diffon 10-07-2017 BASOPHILS:NCNC:PT: BLD:QN:MANUAL COUNT 0 % Normal 0-2 [facility] Comment on above: Order Comment: Order Added by Discern Expert. Performed By: #### 1 0665556, 9859799, 92160771, 9533534, 58232762, 0616374, 9274657 ####[facility] [address] [facility] [place] [address] Blood morphology Normal Normal [facility] Comment on above: Order Comment: Order Added by Discern Expert. Performed By: #### 1 6751402, 4555511, 42662147, 9737217, 27207016, 5300059, 1166245 ####[facility] [address] [place] [address] DOHLE BODY:PRTHR:PT:BLD: ORD:MICROSCOPY.LIG HT Present Normal [facility] Comment on above: Order Comment: Order Added by Discern Expert. Performed By: #### 1 1314324, 8142699, 29176489, 2162403, 65620436, 7801547, 5222729 ####[place] [address] [place] [address] EOSINOPHILS:NCNC:P T:BLD:QN:MANUAL COUNT 5 % Normal 0-8 [facility] Comment on above: Order Comment: Order Added by Discern Expert. Performed By: #### 1 2113562, 8030705, 10045314, 8052958, 53595138, 0577928, 2626505 ####[place] [address] [place] [address] LYMPHOCYTES:NCNC:P T:BLD:QN:MANUAL COUNT 13 % Low 14-50 [facility] Comment on above: Order Comment: Order Added by Discern Expert. Performed By: #### 1 8740802, 0600054, 80359610, 8926181, 40823892, 1900575, 0633515 ####[address] [address] MONOCYTES:NCNC:PT: BLD:QN:MANUAL COUNT 7 % Normal 4-14 [facility] Comment on above: Order Comment: Order Added by Discern Expert. Performed By: #### 1 6707841, 9209817, 04708870, 1210735, 76199701, 8270574, 9563567 ####[place] [address] [place] [address] Neutrophils band/100 leukocytes 12 % High 0-10 [facility] Comment on above: Order Comment: Order Added by Discern Expert. Performed By: #### 1 2384190, 8404421, 85728703, 5822706, 11445741, 4872953, 1174141 ####[place] [address] [place] [address] NEUTROPHILS.SEGMEN RENETTA:NCNC:PT:BLD:QN :MANUAL COUNT 63 % Normal 36-75 [facility] Comment on above: Order Comment: Order Added by Discern Expert. Performed By: #### 1 2697181, 6723391, 57752904, 7247675, 91579275, 1897388, 3186315 ####[address] [address] PLATELETS.LARGE:MA THR:PT:BLD:ORD:LARISA ROSCOPY.LIGHT Present Normal [facility] Comment on above: Order Comment: Order Added by Discern Expert. Performed By: #### 1 8869490, 4768087, 40232024, 1259905, 75849285, 3864563, 8817002 ####[facility] [address] [place] [address] Toxic Gran Present Normal [facility] Comment on above: Order Comment: Order Added by Discern Expert. Performed By: #### 1 2732811, 3842927, 55865761, 7153567, 36028972, 9264921, 6783272 ####[facility] [address] [place] [address] Progress Note-Physicianon Progress Note-Physician Patient: WILLOW WILKES [...] g 3.375 gram 1 EA, IV Piggyback, e7iyocxfflnwwj + Sodium Chloride 0.9% 500 mL 2 gram 2 EA, IV Piggyback, m52ueNbnojhtxrt: (2)Sodium Chloride 0.9% 1,000 mL 1,000 mL, IV, 125 mL/hrSodium Chloride 0.9% 2,190 mL 2,190 mL, IV, 999 mL/hrPRN: (6)acetaminophen 325 mg Tab UD [F] 650 mg 2 tab(s), Oral, m3pjskzzbocwm 0.083% Inh Mary 3 mL [F] 2.5 mg 3 mL, NEB, p5bvujojzqpdh CFC free 90 mcg/inh Inh Aer w/Adapt 8.5 gm [F] 180 microgram 2 puff(s), Inhalation, p9xfhfrwhbhwv 30 mg/mL Inj 1 mL [F] 30 mg 1 mL, IV, e1nkpqkwwdes 10 mg/mL preservative-free SOLN [F] 2 mg 0.2 mL, IV Push, v4kgrmccuvvoumw 2 mg/mL Inj [F] 4 mg 2 mL, IV Push, q6hr Problem list: All ProblemsImpaired skin integrity / SNOMED CT 42726705 / ConfirmedProblem added on documentation of skin impairments.Smoker / IMO 698887 / ConfirmedAdded secondary to documentation in Social [...] E9/L HI Lymph Abs Man 2.6 E9/L Coosa Abs Man 1.4 E9/L HI Eos Abs [...] officially consult surgery for possible I&D Normal [facility] Comment on above: Result Comment: Elec tronically Signed By: Jesse Davidson DO\.br\Date and Time Signed: 10/07/17 16:33 EST Vanco Troughon 10-07-2017 VANCOMYCIN 13 microgram/mL Normal 10-20 [facility] Comment on above: Performed By: #### 1 6018440, 7807032, 65847159, 7173813, 27721370, 0553479, 9516667 ####[facility] [address] [place] [address] eGFRon 10-07-2017 eGFR (black) mL/min/{1.73_m2} Normal >=59 [facility] Comment on above: Order Comment: Order added by Discern Expert. Result Comment: eGFR is race adjusted. AA=. Performed By: #### 1 4118724, 6949580, 89854673, 6433572, 18439839, 4708391, 9289190 ####[facility] [address] [place] [address] eGFR (non-black) mL/min/{1.73_m2} Normal >=59 [facility] Comment on above: Order Comment: Order added by Discern Expert. Result Comment: Rib Trim Separator curt kidney disease could be indicated at eGFR's of less than 60 mL/min/1.73m2. Kidney failure is indicated at less than 15 mL/min/1.73m2. Performed By: #### 1 6690453, 3692076, 76392053, 8267197, 77979884, 2670676, 8951516 ####[facility] [address] [place] [address] .Manual Abson 10-06-2017 BASOPHILS/LEUKOCYT ES:NFR.DF:PT:BLD:Q N:MANUAL COUNT 0.0 E9/L Normal 0.0-0.2 [facility] Comment on above: Performed By: #### 1 8576321, 8550363, 26939996, 7308274, 82866319, 2921514, 5391802 ####[facility] [address] [place] [address] EOSINOPHILS/LEUKOC YTES:NFR.DF:PT:BLD :QN:MANUAL COUNT 0.0 E9/L Normal 0.0-0.5 [facility] Comment on above: Performed By: #### 1 1814220, 4438630, 20639058, 2091516, 97235586, 7676733, 0587602 ####[facility] [address] [place] [address] LYMPHOCYTES/LEUKOC YTES:NFR.DF:PT:BLD :QN:MANUAL COUNT 1.0 E9/L Normal 1.0-4.0 [facility] Comment on above: Performed By: #### 1 9885355, 6341265, 56356371, 8167162, 22838276, 7202777, 2841943 ####[place] [address] [place] [address] MONOCYTES/LEUKOCYT ES:NFR.DF:PT:BLD:Q N:MANUAL COUNT 2.6 E9/L High 0.2-1.0 [facility] Comment on above: Performed By: #### 1 7296864, 9349753, 57584019, 8583529, 28649520, 5114370, 3227736 ####[place] [address] [place] [address] Neutrophils 15.4 E9/L High 2.0-7.5 [facility] Comment on above: Performed By: #### 1 8315249, 4941427, 22300662, 7357680, 82478286, 3918999, 3213241 ####[place] [address] CBC w/ Auto Diffon Erythrocyte distribution width Auto Ratio (RBC) 13.4 % Normal 10.9-14.2 [facility] Comment on above: Performed By: #### 1 4464502, 6573342, 23685857, 2907037, 94296930, 6021947, 5788378 ####[place] [address] [place] [address] Erythrocytes (RBC) 4.1 E12/L Low 4.3-5.9 [facility] Comment on above: Performed By: #### 1 0360597, 2258501, 51778575, 7470496, 90722347, 3564006, 7834984 ####[place] [address] [place] [address] Hematocrit (HCT) 37.7 % Normal 37.7-49.0 [facility] Comment on above: Performed By: #### 1 7027419, 2838804, 90534749, 4992237, 10850973, 3445593, 1203511 ####[place] [address] [place] [address] Hemoglobin mass conc (Bld) 13.0 g/dL Low 13.5-17.5 [facility] Comment on above: Performed By: #### 1 5839232, 2734184, 56210100, 5338555, 31167738, 0398113, 3313968 ####[place] [address] MCH 31.6 pg Normal 27.0-34.0 [facility] Comment on above: Performed By: #### 1 8529057, 2155339, 23227433, 9350741, 61593646, 8083364, 2114915 ####[place] [address] MCHC mass conc (RBC) 34.5 g/dL Normal 31.4-39.3 [facility] Comment on above: Performed By: #### 1 3906242, 9877114, 74517208, 8304190, 04362884, 7892493, 4282799 ####[place] [address] MCV 91.5 fL Normal 80.0-100.0 [facility] Comment on above: Performed By: #### 1 9805019, 7324930, 93791743, 5681881, 65650500, 7810607, 1165416 ####[place] [address] Platelet mean volume (PMV) 7.7 fL Normal 6.4-10.8 [facility] Comment on above: Performed By: #### 1 1653954, 8430401, 31231701, 1506338, 57706676, 2786258, 1143925 ####[place] [address] Platelets 309.0 E9/L Normal 150.0-500. 0 [facility] Comment on above: Performed By: #### 1 9624901, 8382909, 94003354, 0537117, 14102131, 4412255, 7499456 ####[facility] [address] [place] [address] WBC (Leukocytes) 19.7 E9/L High 4.0-11.0 [facility] Comment on above: Performed By: #### 1 9593919, 6355836, 90175690, 1412651, 86071738, 1500409, 4218526 ####[place] [address] [place] [address] CMPon 10-06-2017 Alanine aminotransferase (ALT) 61 Int._Unit/L High 6-46 [facility] Comment on above: Performed By: #### 1 4252087, 2651672, 51253535, 9078259, 31705794, 0837973, 7625058 ####[address] [address] Albumin 0.7 g/dL Low 1.1-2.2 [facility] Comment on above: Performed By: #### 1 6409539, 5192424, 29790777, 6656342, 29825344, 8514999, 6465196 ####[address] [address] Albumin 2.8 g/dL Low 3.3-5.0 [facility] Comment on above: Performed By: #### 1 8471827, 8120310, 68608297, 7989319, 19698826, 9323795, 9080512 ####[address] [address] Alkaline phosphatase (ALP) 147 Int._Unit/L High 21-98 [facility] Comment on above: Performed By: #### 1 4693037, 9063761, 96052016, 9423853, 93938942, 2280358, 9292846 ####[facility] [address] [place] [address] Anion gap 13 mmol/L Normal 6-16 [facility] Comment on above: Performed By: #### 1 6878078, 9230191, 59924423, 1324214, 75266419, 6253376, 4633913 ####[facility] [address] [place] [address] Aspartate aminotransferase (AST) 49 Int._Unit/L High 5-43 [facility] Comment on above: Performed By: #### 1 1227793, 2970621, 58418900, 7373942, 88654572, 6651557, 8704917 ####[facility] [address] [place] [address] Bilirubin (total) 1.0 mg/dL Normal 0.0-1.1 [facility] Comment on above: Performed By: #### 1 3016783, 6625026, 53169897, 0420285, 54525077, 2616805, 7817437 ####[facility] [address] [place] [address] BUN/Creatinine Ratio 14 No Units Normal 10-20 [facility] Comment on above: Performed By: #### 1 5601574, 0636320, 07617127, 2352341, 85007764, 8106085, 9174769 ####[facility] [address] [place] [address] Calcium 8.5 mg/dL Low 8.9-11.1 [facility] Comment on above: Performed By: #### 1 1420187, 1088806, 97195066, 1692341, 25371461, 7614850, 1053266 ####[facility] [address] [place] [address] Chloride 93 mmol/L Low 101-111 [facility] Comment on above: Performed By: #### 1 9949667, 0252394, 19530535, 8130841, 01916164, 2420321, 2873870 ####[facility] [address] [place] [address] CO2 25 mmol/L Normal 21-31 [facility] Comment on above: Performed By: #### 1 9000723, 6128019, 82188996, 2740490, 28009953, 2732763, 8848101 ####[facility] [address] [place] [address] Creatinine 0.9 mg/dL Normal 0.5-1.3 [facility] Comment on above: Performed By: #### 1 5898395, 8416426, 09168167, 5880515, 05104998, 6338843, 5980813 ####[facility] [address] [place] [address] Globulin 3.8 g/dL Normal 1.4-4.0 [facility] Comment on above: Performed By: #### 1 4467934, 7353723, 96335525, 8268897, 16320411, 3388034, 3551961 ####[facility] [address] [place] [address] Glucose mass conc 107 mg/dL Normal 55-199 [facility] Comment on above: Result Comment: If t his glucose result represents a fasting glucose, interpretation should refer to the following reference range: 55-99 mg/dL Performed By: #### 1 0864227, 8216326, 15949998, 1334876, 33522179, 5747943, 2716534 ####[facility] [address] [place] [address] Potassium molar conc 4.1 mmol/L Normal 3.5-5.3 [facility] Comment on above: Performed By: #### 1 4569428, 2318191, 58983858, 0795400, 06568459, 4836587, 3300281 ####[facility] [address] [place] [address] Protein 6.6 g/dL Normal 6.0-7.8 [facility] Comment on above: Performed By: #### 1 6056526, 1184317, 96867608, 9464983, 48155328, 7138107, 3260863 ####[facility] [address] [place] [address] Sodium 127 mmol/L Low 135-145 [facility] Comment on above: Performed By: #### 1 1449136, 4554084, 22928062, 5151932, 01455662, 2656211, 4407193 ####[facility] [address] [place] [address] Urea nitrogen 13 mg/dL Normal 5-21 [facility] Comment on above: Performed By: #### 1 6685958, 0210404, 23397451, 5666663, 84617795, 0637388, 0263168 ####[facility] [address] [place] [address] ED Clinical Summaryon 2016 ED Clinical Summary [address] [address] ED Clinical SummaryPerson Information Name: Juan Carlos [facility]IL[facility] Age: 27 Years : 1990 12:00 AM Sex: Male Language:Kenyan PCP: Myra Middleton MD Marital Status:Single Visit [...] AM Patient Care Request 10/06/2017 4:41 AM ADDRESS:[address] [place] [address] [id number] [facility] DOC NOTES: MEDICAL INFORMATION: Prescriptions Given:PATIENT EDUCATION INFORMATION: Instructions: Follow up:DIAGNOSIS: Normal [facility] ED Patient Education Noteon 10-06-2017 ED Patient Education Note Patient Education Materials Follows: Normal [facility] ED Patient Summaryon 017 ED Patient Summary (Inserted Image. La ble to display) [place] [id number] Patient Discharge Instructions Person Information Name: WILLOW WILKES Age: 27 Years Date: 10/05/2017 5:35 PMDischarge Diagnosis: Primary Care Physician: Myra Middleton MD Provider InformationPrimary Provider: Анна Torres M.D.siciyeimy Correspondence Analyst:None The exam and treatment you received in the Emergency Department were for an urgent problem and are not intended as complete care. It is important that you follow up with a doctor, nurse practitioner, or physician?s contact lens assistant for ongoing care. If your symptoms [...] morphine 4.00 mg IV Push Left Antecubital Cameron vancomycin 1.50 gram IV Piggyback Left Antecubital Cameron piperacillin-tazobactam 3.38 gram IV Piggyback Left Antecubital Cameron hydromorphone 1.00 mg IV Push Left Antecubital Diana Medication Information:Comment: Pharmacy Information: Thank you for choosing [facility] Patient Education Materials: CHUNG Bustamante RYAN , have received the following patient education materials/instructions and have verbalized understanding: Patient Education Materials: Follow-up Instructions: Prescriptions: Patient Signature Date Clinician/Nurse Signature Date 10/06/17 05:17:22 [facility] History and Physicalon 10-06 History and Physical Patient: WILLOW WILKES Age: 27 years Sex: Male : 1990 Associated Diagnoses: None Author: Jesse Davidson DO Chief Complaint 10/05/2017 18:24 EST pain in mid back to hip. ongoing X2 weeks. was seen [facility] but was told it was just muscle spasms. xray and urin were obtained in [place]. History of Present Illness 27 Y/O presents [...] g 3.375 gram 1 EA, IV Piggyback, r8htndkwjmunwi + vancomycin + Sodium Chloride 0.9% 500 mL 1,750 mg, IV Piggyback, d02juMyqdptpcah: (2)Sodium Chloride 0.9% 1,000 mL 1,000 mL, IV, 125 mL/hrSodium Chloride 0.9% 2,190 mL 2,190 mL, IV, 999 mL/hrPRN: (2)morphine 2 mg/mL preservative-free SOLN [F] 2 mg 1 mL, IV Push, h2vwetuuaohoung 2 mg/mL Inj [F] 4 mg 2 mL, IV Push, q6hr Problem list: All ProblemsSmoker / IMO 191403 / ConfirmedAdded secondary to documentation in Social History., Active Problems (1)Smoker Histories Past Medical History: ResolvedAsthma ([id number]): Resolved. Family History: AsthmaMother Procedure history: Incision AND drainage ([id number]).Comments:10/06/2017 06:12 - Philippe Cabezas RN right hand Social History Social & Psychosocial GlpxepGbkkuxt20/26/2017 Risk Assessment: Denies Alcohol UseSubstance Abuse10/05/2017 Risk Assessment: Denies Substance HbjeiMaqcjot65/26/2017 Risk Assessment: High Risk10/05/2017 Use: Current Every [...] E9/L HI Lymph Abs Man 1.0 E9/L [place] Abs Man 2.6 E9/L HI Eos Abs [...] 2 MN's to treat the above Normal [facility] Comment on above: Result Comment: Elec tronically Signed By: Jesse Davidson DO\.br\Date and Time Signed: 10/06/17 12:53 EST Interdisciplinary Note - Brett e Manageron 10-06-2017 Interdisciplinary Note - Machine Shop Inspector CRM spoke with pt at bedside, white board updated, no family present. Pt states no PCP, list was provided at bedside. Pt understands plan is stay today, continue IV antibiotics, fluids, pain medication. Pt denies needs. Normal [facility] Lactic Acidon 10-06-2017 LACTATE:MCNC:PT:SE R/PLAS:QN: 5.1 mg/dL Normal 4.5-19.8 [facility] Comment on above: Performed By: #### 2 [id number] ####[facility] [address] [place] [address] LACTATE:MCNC:PT:SE R/PLAS:QN: 7.7 mg/dL Normal 4.5-19.8 [facility] Comment on above: Performed By: #### 1 [id number], 0413322, 45437215, 3493203, 34888444, 9128553, 2108875 ####[facility] [address] [place] [address] Manual Diffon 10-06-2017 BASOPHILS:NCNC:PT: BLD:QN:MANUAL COUNT 0 % Normal 0-2 [facility] Comment on above: Order Comment: Order Added by Discern Expert. Performed By: #### 1 [id number], 0290607, 44882992, 5084993, 52414820, 0682791, 4716894 ####[facility] [address] [place] [address] Blood morphology Normal Normal [facility] Comment on above: Order Comment: Order Added by Discern Expert. Performed By: #### 1 3731954, 8538354, 47675711, 8451367, 51633961, 4191866, 4300778 ####[facility] [address] [place] [address] EOSINOPHILS:NCNC:P T:BLD:QN:MANUAL COUNT 0 % Normal 0-8 [facility] Comment on above: Order Comment: Order Added by Margo Expert. Performed By: #### 1 6940168, 8616721, 55935059, 4721286, 33457890, 5009789, 3481155 ####[facility] [address] [place] [address] LYMPHOCYTES:NCNC:P T:BLD:QN:MANUAL COUNT 5 % Low 14-50 [facility] Comment on above: Order Comment: Order Added by Margo Expert. Performed By: #### 1 6786975, 8479859, 86918536, 4282742, 54127151, 2472217, 6701682 ####[place] [address] [place] [address] MONOCYTES:NCNC:PT: BLD:QN:MANUAL COUNT 13 % Normal 4-14 [facility] Comment on above: Order Comment: Order Added by Margo Expert. Performed By: #### 1 0314007, 2760273, 86144620, 3529677, 41732967, 5650508, 7610588 ####[facility] [address] [place] [address] Neutrophils band/100 leukocytes 4 % Normal 0-10 [facility] Comment on above: Order Comment: Order Added by Margo Expert. Performed By: #### 1 7318401, 9587818, 10373519, 9220011, 01243863, 5542583, 0624518 ####[facility] [address] [place] [address] NEUTROPHILS.SEGMEN RENETTA:NCNC:PT:BLD:QN :MANUAL COUNT 78 % High 36-75 [facility] Comment on above: Order Comment: Order Added by Margo Expert. Performed By: #### 1 3019405, 9794003, 28944518, 8735325, 40304807, 6531749, 3943542 ####[facility] [address] [place] [address] PT & PTTon 10-06-2017 aPTT 30.1 second(s) Normal 25.1-36.5 [facility] Comment on above: Result Comment: Hepa rin therapeutic range (represented by Anti-Factor Xa activity of 0.2 - 0.4 U/mL) corresponds to PTT of 53.9 - 87.4 sec. Performed By: #### 1 5793311, 9415951, 42449811, 8633077, 41526063, 3379656, 5573211 ####[facility] [address] [place] [address] INR Coag RelTime (PPP) 1.2 {INR} Invalid Interpretation Code [facility] Comment on above: Result Comment: INR results are specifically intended to assess patients stabilized on long-term Anticoagulation therapy suggested INR?s ?Less Intensive Anticoagulation? 2.0 ? 3.0Conventional Range 3.0 ? 4.5 Performed By: #### 1 4171649, 7240375, 16205284, 7672323, 72293360, 1299100, 1819056 ####[facility] [address] [place] [address] Prothrombin time (PT) Coag time (PPP) 13.3 second(s) High 10.2-12.9 [facility] Comment on above: Performed By: #### 1 9332445, 3776541, 53395110, 1339058, 31918955, 3877276, 8193801 ####[facility] [address] [place] [address] Progress Note-Nurseon 2016 Progress Note-Nurse 2231 - Dr Torres at [id number] - Notified Dr. Torres pt requesting more [...] Pt ready to transfer upstairs to room 321S.3117 ----time clarification for last note above Normal [facility] UA With Cult Reflexon 2016 BACTERIA:PRTHR:PT: URINE SED:ORD:MICROSCOPY .LIGHT TRACE Normal Trace [facility] Comment on above: Performed By: #### 1 0477781 ####[facility] [address] [place] [address] Bilirubin Ql (U) Negative Normal Negative [facility] Comment on above: Performed By: #### 1 6558069 ####[facility] [address] [place] [address] COLOR:TYPE:PT:URIN E:NOM:AUTO YELLOW Normal Yellow [facility] Comment on above: Performed By: #### 1 1198323 ####[address] [address] Erythrocytes (RBC) 0-3 Normal 0-3 [facility] Comment on above: Performed By: #### 1 5637720 ####[address] [address] GLUCOSE:MCNC:PT:UR INE:QN:TEST STRIP Negative Normal Negative [facility] Comment on above: Performed By: #### 1 9992994 ####[address] [address] KETONES:MCNC:PT:UR INE:QN:TEST STRIP TRACE Abnormal Negative [facility] Comment on above: Performed By: #### 1 3225104 ####[address] [address] LEUKOCYTES:PRTHR:P T:URINE:ORD:AUTOMA RENETTA Negative Normal Negative [facility] Comment on above: Performed By: #### 1 7131386 ####[facility] [address] [place] [address] UA Spec Desc Clean Catch Normal [facility] Comment on above: Performed By: #### 1 2401852 ####[facility] [address] [place] [address] Urine, clarity CLEAR Normal Clear [facility] Comment on above: Performed By: #### 1 3856795 ####[facility] [address] [facility] [place] [address] Urine, hemoglobin presence Negative Normal Negative [facility] Comment on above: Performed By: #### 1 9411927 ####[facility] [address] [facility] [place] [address] Urine, leukocytes in sedmiment 0-5 Normal 0-5 [facility] Comment on above: Performed By: #### 1 2761635 ####[facility] [address] [facility] [place] [facility] [place] [address] Urine, mucus presence in sediment TRACE Normal [facility] Comment on above: Performed By: #### 1 5841284 ####[facility] [address] [place] [address] Urine, nitrite presence Negative Normal Negative [facility] Comment on above: Performed By: #### 1 8603660 ####[facility] [address] [place] [address] Urine, pH 7.0 [pH] Invalid Interpretation Code 5.0-9.0 [facility] Comment on above: Performed By: #### 1 0993477 ####[facility] [address] [place] [address] Urine, protein 1+ Abnormal Negative [facility] Comment on above: Performed By: #### 1 5565813 ####[facility] [address] [place] [address] Urine, specific gravity 1.010 Invalid Interpretation Code 1.005-1.03 0 [facility] Comment on above: Performed By: #### 1 8725698 ####[facility] [address] [facility] [place] [address] Urine, squamous cells in sediment 0-2 Normal 0-2 [facility] Comment on above: Performed By: #### 1 3837672 ####[facility] [address] [facility] [place] [address] Urine, urobilinogen 1.0 {Aleksandr'U}/dL Normal 0.0-1.0 [facility] Comment on above: Performed By: #### 1 6759463 ####[facility] [address] [place] [address] XR Chest 2 Viewson 7 XR Chest [...] MD Transcribed by: JENNIFFER Technologist: FLOYD Normal [facility] eGFRon 10-06-2017 eGFR (black) mL/min/{1.73_m2} Normal >=59 [facility] Comment on above: Order Comment: Order added by Discern Expert. Result Comment: eGFR is race adjusted. AA=. Performed By: #### 1 6861047, 1831895, 92955229, 2070856, 67738897, 6279361, 5353623 ####[place] [address] [place] [address] eGFR (non-black) mL/min/{1.73_m2} Normal >=59 [facility] Comment on above: Order Comment: Order added by Discern Expert. Result Comment: Rib Trim Separator curt kidney disease could be indicated at eGFR's of less than 60 mL/min/1.73m2. Kidney failure is indicated at less than 15 mL/min/1.73m2. Performed By: #### 1 0082020, 9850066, 12568691, 4799166, 27555274, 2908911, 8017481 ####[facility] [address] [place] [address] Coding Summaryon 08-17-2017 Coding Summary CODING DATE: [facility] STATUS: Home PAYOR: Medicaid HMO ADMIT DX: [...] Verma Revised Date Saved: 06/07/2017 02:49 pm [facility] Coding Summary CODING DATE: [facility] STATUS: Home PAYOR: Medicaid HMO ADMIT DX: [...] Verma Revised Date Saved: 06/07/2017 02:48 pm [facility] Coding Summaryon 08-12-2017 Coding Summary CODING DATE: [facility] STATUS: Home PAYOR: Medicaid HMO ADMIT DX: [...] Mira Verma Date Saved: 08/12/2017 12:26 pm [facility] Coding Summary CODING DATE: [facility] STATUS: Home PAYOR: Medicaid HMO ADMIT DX: [...] Verma' Date Saved: 08/12/2017 12:25 pm Normal [facility] ED Clinical Summaryon 2016 ED Clinical Summary [facility] - Emergency [address] [place], [place] [id number] ed Clinical SummaryPERSON INFORMATIONName: WILLOW WILKES Age: 27 Years Sex: MALEDOB: [birth year] MRN: Acct#:Visit Reason: Back pain; BACK PAIN Arrival:08/05/17 20:28:00 Discharge: 08/05/17 22:21:00LOS: 000 01:53 Check In: 08/05/17 20:28:00 Checkout:08/05/17 22:21:00Address:[address] [address]WHM: Provider, NonePROVIDER INFORMATIONProvider Role Assigned UnassignedNeeraj Raphael [...] Back Pain, AdultFollow-Up:With: Address: When:ANJU CROCKER [address], [address] [place] [id number] Business (1) Within 3 to 5 daysComments:Diagnosis [...] questions.[facility] Address: When:None Provider Within 3 to 5 daysDIAGNOSIS:Accidental fall; L4-L5 disc bulge; Lumbar back pain with radiculopathy affecting right lower extremityComment: [facility] ED Note - Otheron 08-06-2017 ED Note - Other In patients chart to check if items are scanned in. [Electronically Signed on: 08/06/2017 07:18 EDT] Judy Joe [Verified on: 08/06/2017 07:18 EDT] [facility] ED Note-Nursingon 08-06-2017 ED Note-Nursing Pt discharged home. Home care and follow-up instructions given tp pt. Pt verbalized understanding. VS are WNL. PA has spoken tp pt. 1 prescription sent home with pt. 2 prescriptions sent to [facility]. Pt ambulated self to exit. Normal [facility] ED Patient Education Noteon 08-06-2017 ED Patient [...] Document Reviewed: 05/16/2014Magaly Interactive Patient Education ?2016 [employer]Lumbosacral RadiculopathyLumbosacral radiculopathy is a condition that [...] Document Reviewed: 09/23/2015Magaly Interactive Patient Education ?2016 [employer]Back Pain, AdultBack pain is very common [...] stressful on your back to sit or machine silver stripper one place for long periods of time. Do not sit, drive, or machine silver stripper one place for more than 30 minutes [...] as directed by your health care provider. Nmkc-eor-ygwjtzi medicines to reduce pain and inflammation are [...] Document Reviewed: 01/29/2015Rickyevtanner Interactive Patient Education ?2016 [employer]. Normal [facility] ED Patient Summaryon 08-06-2 017 ED Patient Summary [facility] Emergency [address] [place] [id number] pATIENT DISCHARGE INSTRUCTIONSPatient InformationName: WILLOW WILKES Age: 27 YearsDate of : [birth year]MRN: [id number] For Visit: Back pain; BACK PAINArrival Time: 08/05/17 20:28:00Phone: Primary Care Physician: Provider, NoneAttending Physician: Luis F Hood DOComment:Visit Diagnosis:Diagnoses This Visit Accidental fall (W19.XXXA) Back pain ([id number]) L4-L5 disc bulge (M51.26) Lumbar back pain with radiculopathy affecting right lower extremity (M54.17)If you received any narcotics, sedation, or any other medication that causes drowsiness for the next 24 hours, unless otherwise directed:? Do not drive a car.? Do not operate machinery such as WUT tools, lawn mowers, drills, sewing machines, or stoves? Avoid alcoholic beverages and drugs for allergies, nerves, or sleep? Do not make important personal or business decisions or sign any legal documentsWith: Address: When:ANJU CROCKER [address], [place] [address] Business (1) Within 3 to 5 daysComments:Diagnosis [...] any questions.[facility] Address: When:None Provider Within 3 to 5 daysMedication Information:The exam and treatment you received today in the [facility] Emergency Department were for an urgent problem and are not intended as complete care. It is important for you to follow up with a doctor, nurse practitioner, or physician?s contact lens assistant for ongoing care. If your symptoms [...] number so we can reach you if necessary.[facility] Emergency Department has provided you with a complete list of medications post discharge. Please inform your floral designer/provider of your visit and for further instruction on these medications. Any specific questions regarding your chronic medications and dosages should be discussed with your primary care physician(s) and/or pharmacist. [facility] [place] [address], [address] [place] [phone], [phone] (orphenadrine 100 mg oral tablet, extended release) 1 tab(s) Oral 2 times a day as needed pain for 7 Days. Refills: 0.predniSONE (predniSONE 20 mg oral tablet) 2 tab(s) Oral every day for 5 Days. Refills: 0.Printed Prescriptionsacetaminophen-hydr ocodone ([place] 5 mg-325 mg oral tablet) 1 tab(s) [...] Document Reviewed: 05/16/2014Rickyevtanner Interactive Patient Education ?2016 [employer].Lumbosacral RadiculopathyLumbosacral radiculopathy is a condition that involves [...] Document Reviewed: 09/23/2015Magaly Interactive Patient Education ?2016 [employer]Back Pain, AdultBack pain is very common [...] stressful on your back to sit or machine silver stripper one place for long periods of time. Do not sit, drive, or machine silver stripper one place for more than 30 minutes [...] as directed by your health care provider. Cpkx-apr-eenhkyh medicines to reduce pain and inflammation are [...] Document Reviewed: 01/29/2015Elsevier Interactive Patient Education ?2016 [employer]. Viruses or BacteriaWhat?s got you sick?Antibiotics only [...] for Disease Control and Prevention June 2014 [facility] CT Spine Lumbar w/o Contrast on 08-05-2017 [...] changes. There is mild disc space narrowing jdzxJ53-N06 to L3-L4. No definite acute fracture or [...] and upon the proximal portion of the C2yeowz root on the left, correlate clinically. There [...] ON THE LEFT, CORRELATE CLINICALLY.NILS Phillips #: [id number]: 08/06/2017T: 08/06/2017 Final Dictated by: David Ward MD SDictated DT/TM: 08/06/17 6:48Signed (Electronic Signature): David Ward MD 08/06/17 11:21 aTechnologist: [facility] ED Note - Physicianon 2016 ED Note - Physician Patient: WILLOW WILKES : 27 years Sex: MALE : [birth year]Associated Diagnoses: Lumbar back pain with radiculopathy affecting right lower extremity; Accidental fall; L4-L5 disc bulgeAuthor: Neeraj RaphaelBasic InformationAdditional information: Chief Complaint from Nursing Triage Note : Chief Xtgsrmilk49/26/17 20:41 EDT Chief Complaint Lower back pain [...] Social HistoryMedical history:ResolvedModerate persistent asthma with exacerbation ([id number]): Resolved.Pneumonia due to other specified bacteria (19085974): Resolved.Smoker ([id number]): Resolved.Comments: -Added secondary to documentation in Social History.Pain due to dental caries (53599529): Resolved..Surgical history:Colonoscopy normal (005631111) in 2015 at 25 Years..Family history:AsthmaMotherSisterGrand father (Maternal)Cancer - unknown originGrandfather (Paternal)FibromyalgiaMotherChr onic coughMother.Social history:Social & Psychosocial WlzugiUqdnzdw37/06/2016 Risk Assessment: Low Risk Comment: denies - 03/25/2016 14:35 - Leila Chavez LPNEmployment/Rkpxey3103/16/2016 Risk Assessment: Low Risk03/25/2016 Status: Employed 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/Qnklzatekpu35/15/2016 Lives with: MotherSubstance Abuse03/16/2016 Risk Assessment: Denies Substance IxjqgBblgyjz21/06/2016 Risk Assessment: Low Risk03/24/2017 Type: Cigarettes Comment: [...] mmHg SpO2 98 % Oxygen Therapy Room air.Clhisurafyqj53/26/17 20:43 EDT Weight Dosing 74.840 kg08/05/17 20:43 [...] the form of prednisone, muscle relaxant, and [place]. I discussed them that in regards to [...] pain with radiculopathy affecting right lower extremity (FXY76-WS M54.17, Discharge, Medical)L4-L5 disc bulge (FPH81-SF M51.26, Discharge, Medical)Accidental fall (EPA87-JB W19.XXXA, Discharge, Medical)PlanCondition: Improved, Stable.Disposition: Discharged: Time 08/05/17 21:59:00, to home.Prescriptions: Launch prescriptionsPharmacy:orphenadr ine 100 mg oral tablet, extended release (Prescribe): 100 mg, 1 tab(s), PO, BID, for 7 day(s), PRN: pain, 14 tab(s), 0 Refill(s)predniSONE 20 mg oral tablet (Prescribe): 40 mg, 2 tab(s), PO, Daily, for 5 day(s), 10 tab(s), 0 Refill(s)Louisville 5 mg-325 mg oral tablet (Prescribe): 1 [...] questions.[facility] Provider Within 3 to 5 days.Counseled: Patient, Family, Regarding diagnosis, Regarding diagnostic results, Regarding treatment plan, Regarding prescription, Patient indicated understanding of instructions.[Electronically Signed on: 08/05/2017 22:28 EDT] Neeraj Raphael[Verified on: 08/05/2017 22:28 EDT] Neeraj Raphael [facility] ED Note-Nursingon 08-05-2017 ED Note-Nursing Pt presented to the ER with c/o Lower back. Pt states he slipped on a storage container lid and fell on his back. Pt has h/o lower back pain. Pt is awake and alert. VS are WNL. Lungs clear. Denies SOB, Chest pain, Dizziness, N/V. Respirations are regular, even, unlabored. Pt placed in gown. PA at bedside. [facility] Rad - Other Radiology Report on 08-05-2017 Rad - Other Radiology Report [id number] [facility] Coding Summaryon 06-07-2017 Coding Summary CODING DATE: 017 [facility] STATUS: Home PAYOR: Medicaid HMO ADMIT DX: [...] Duglas Verma' Date Saved: 06/07/2017 02:49 pm [facility] Coding Summary CODING DATE: 017 [facility] STATUS: Home PAYOR: Medicaid HMO ADMIT DX: [...] Mira Verma Date Saved: 06/07/2017 02:48 pm [facility] ED Clinical Summaryon 2016 ED Clinical Summary [facility] - Emergency [address] [place], [place] [id number] ed Clinical SummaryPERSON INFORMATIONName: WILKESWILLOW Age: 26 Years Sex: MALEDOB: [birth year] MRN: Acct#:Visit Reason: Testicular pain; Testicular pain; PELVIC/TESTICULAR PAIN/ X 1 WEEK Arrival:06/01/17 23:15:00 Discharge: 06/02/17 00:17:00LOS: 000 01:02 Check In: 06/01/17 23:15:00 Checkout:06/02/17 00:17:00Address:[address] [place] [address]RJQ: Provider, NonePROVIDER INFORMATIONProvider Role Assigned UnassignedVargas Anthony [...] & time 06/01/17 23:24:00.Testicular painHistory of Present Zqqkyqm25-klon-gen white male presents to the emergency room [...] recently tested negative for STDs. He reports plte-ach-ekhpyve medications have not been helping his pain [...] underwear until this resolves..Impression and PlanDiagnosisLeft epididymitis (TCM13-TM N45.1, Discharge, Medical)PlanCondition: Improved.Disposition: Discharged: to home.Prescriptions: [...] Within 3 to 5 daysDIAGNOSIS:Left epididymitisComment: Normal [facility] ED Note - Physicianon 2016 ED Note - Physician Patient: WILLOW WILKES : 26 years Sex: MALE : [birth year]Associated Diagnoses: Left epididymitisAuthor: Vargas Anthony InformationTime seen: Date & time 06/01/17 23:24:00.Testicular painHistory of Present Aawajix95-gsvc-zxg white male presents to the emergency room [...] recently tested negative for STDs. He reports muki-tka-vnrcfcx medications have not been helping his pain [...] underwear until this resolves..Impression and PlanDiagnosisLeft epididymitis (CDD96-CS N45.1, Discharge, Medical)PlanCondition: Improved.Disposition: Discharged: to home.Prescriptions: [...] on: 06/01/2017 23:41 EDT] Vargas Anthony MD [facility] ED Note-Nursingon 06-02-2017 ED Note-Nursing Discharge and follow -up instructions reviewed with patient, including criteria/conditions for return to ED if necessary. Prescriptions (2 - sent electronically to pt's preferred pharmacy) and medication instructions also reviewed; pt verbalizes understanding of all instructions, offers no questions. Patient without c/o or s/s distress; ambulated out of ED without incidence, gait steady. [facility] ED Patient Education Noteon 06-02-2017 ED Patient [...] responded to other treatments.HOME CARE INSTRUCTIONSMedicines?? Take bshg-lgp-ecetleq and prescription medicines only as told by [...] Document Reviewed: 02/12/2016Rickyevtanner Interactive Patient Education ?2016 [employer] Normal [facility] ED Patient Summaryon 017 ED Patient Summary [facility] - Emergency [address] [place] [id number] pATIENT DISCHARGE INSTRUCTIONSPatient InformationName: WILLOW WILKES Age: 26 YearsDate of : [birth year]MRN: [id number] For Visit: Testicular pain; Testicular pain; PELVIC/TESTICULAR PAIN/ X 1 WEEKArrival Time: 06/01/17 23:15:00Phone: Primary Care Physician: Provider, NoneAttending Physician: Vargas Anthony MDComment:Visit Diagnosis:Diagnoses This Visit Left epididymitis (N45.1) Testicular pain ([id number] 042A31) Testicular pain ([id number] 042A31)If you received any narcotics, sedation, or [...] and treatment you received today in the [facility] Emergency Department were for an urgent problem and are not intended as complete care. It is important for you to follow up with a doctor, nurse practitioner, or physician?s contact lens assistant for ongoing care. If your symptoms [...] number so we can reach you if necessary.[facility] Emergency Department has provided you with a complete list of medications post discharge. Please inform your floral designer/provider of your visit and for further instruction on these medications. Any specific questions regarding your chronic medications and dosages should be discussed with your primary care physician(s) and/or pharmacist. [facility]ations[facility] [place] [address], [address] [place] [phone], [phone] (doxycycline hyclate 100 mg oral capsule) 1 [...] responded to other treatments.HOME CARE INSTRUCTIONSMedicines?? Take dlhn-uta-euylyuo and prescription medicines only as told by [...] Released: 09/24/2001 Document Revised: 06/17/2016 Document Reviewed: 02/12/2016[employer] Interactive Patient Education ?2016 [employer]. Viruses or BacteriaWhat?s got you sick?Antibiotics only [...] for Disease Control and Prevention June 2014 [facility] Operative Reporton 7 Operative Report MR#: [id number] [facility] Pt. Name: Willow Wilkes Room #: 0C [...] appeared to have healthy granulation tissue present. Colton was usedto minimally undermine the edges of [...] Date Dict: 04/09/2017//Katharine Pak Trans: 04/11/2017 08:21 A/Neil_JN:[id number]/ Normal [facility] Encounters Encounter Date Encounter Type Care Provider Facility Start: 06-22-2024 End: 06-23-2024 Emergency department patient visit HAYES POOL [facility] Start: 06-09-2024 End: 06-09-2024 ambulatory [place] Start: 06-05-2024 End: 06-05-2024 ambulatory [facility] Start: 04-09-2024 End: 04-10-2024 Emergency department patient visit ROME CANALES [facility] Start: 03-03-2024 End: 03-04-2024 Emergency department patient visit WILLOW MATTA [facility] Start: 03-03-2024 End: 03-03-2024 Emergency department patient visit PLACIDO Patel [facility] Start: 12-16-2023 End: 12-16-2023 ambulatory JUSTIN ESCOBAR Not Available Start: 12-15-2023 End: 12-16-2023 Emergency department patient visit CANDELARIO ABDI [facility] Start: 11-28-2023 End: 11-29-2023 Emergency department patient visit JOSHUA PROCTOR [facility] Start: 05-27-2020 End: 05-28-2020 Patient encounter procedure PLACIDO SMITH Facility: Start: 04-05-2020 End: 04-06-2020 Patient encounter procedure PLACIDO SMITH Facility:[facility] Start: 03-24-2020 End: 03-25-2020 Patient encounter procedure LITTLE GARCIA Facility: Start: 11-11-2017 End: 11-12-2017 Ambulatory Sammie Chelly Leroyer Facility:[facility] Start: 10-28-2017 End: 10-29-2017 Ambulatory Sammie JanaeDoretha Char Facility:[facility] Start: 10-06-2017 End: 10-16-2017 Evaluation and management of inpatient Myra~[id number] UNKNOWN [place] Facility:[facility] Start: 08-06-2017 End: 08-12-2017 Ambulatory None Provider Facility:[facility] Start: 08-06-2017 End: 08-12-2017 Emergency department patient visit None Provider Facility:[facility] Start: 06-02-2017 End: 06-02-2017 Emergency department patient visit None Provider Facility:[facility] Start: 06-02-2017 End: 06-02-2017 Ambulatory Vargas Anthony Facility:[facility] Start: 04-09-2017 End: 04-10-2017 Ambulatory OVI LANGE Facility:[facility] Procedures Date Procedure Procedure Detail Performing Clinician Start: 04-09-2017 ANESTH LOWER ARM SURGERY FIDENCIO RAY Start: 04-09-2017 Debridement muscle & fascia 20 sq cm/< OVI LANGE Payers Date Payer Category Payer Private Health Insurance [id number] 2023 Unknown [id number] 2023 Unknown [id number] 2017 Unknown [id number] 1989 Unknown [id number] 2.16.84 0.1.474796.3.579.2.593 1989 Unknown [id number] 2.16.84 0.1.676767.3.579.2.593 1989 Unknown [id number] 2.16.84 0.1.863612.3.579.2.593 1989 Unknown [id number] 2.16.84 0.1.901941.3.579.2.1259 1989 Unknown [id number] 2.16.8 40.1.457021.3.579.2.1285 1989 Unknown [id number] 2.16.8 40.1.281712.3.579.2.1285 1989 Unknown [id number] 2.16.8 40.1.454679.3.579.2.1285 1989 Unknown [id number] 2.16.8 40.1.911112.3.579.2.1285 1989 Unknown [id number] 2.16.8 40.1.280023.3.579.2.1285 1989 Unknown [id number] 2.16.8 40.1.898811.3.579.2.1285 1989 Unknown [id number] 2.16.8 40.1.209412.3.579.2.1285 1989 Unknown [id number] 2.16.8 40.1.652733.3.579.2.1285 1989 Unknown [id number] 2.16.8 40.1.466296.3.579.2.1285 1989 Unknown [id number] 2.16.8 40.1.449978.3.579.2.1285 1989 Unknown [id number] 2.16.8 40.1.901511.3.579.2.1285 1989 Unknown [id number] 2.16.8 40.1.004418.3.579.2.1285 1989 Unknown [id number] 2.16.8 40.1.696988.3.579.2.1285 1989 Unknown [id number] 2.16.8 40.1.139798.3.579.2.[id number] Unknown [id number] Summary Purpose Family History No Family History [...] section and content) DATE CREATED AUTHOR 04/04/2018 [facility] DATE CREATED AUTHOR AUTHOR'S ORGANIZ ATION 04/05/2018 [facility] DATE CREATED AUTHOR AUTHOR'S ORGANIZ ATION 04/06/2018 [facility] DATE CREATED AUTHOR AUTHOR'S ORGANIZ ATION 06/02/2020 [facility] DATE CREATED AUTHOR AUTHOR'S ORGANIZ ATION 12/17/2023 [facility] DATE CREATED AUTHOR AUTHOR'S ORGANIZ ATION 06/06/2024 [facility] DATE CREATED AUTHOR AUTHOR'S ORGANIZ ATION 06/24/2024 [facility] FOR RECORDS PERTAINING TO PATIENTS WHO [...] BE BASED ON THE PRIMARY CLINICAL RECORDS. [facility] [employer] [facility]. provides no warranty or guarantee of the accuracy or completeness of information in this document.
[2024-07-28] MEDS: IBUPROFEN 600 MG TABLET PO (17:27)
[2024-07-28] MEDS: CEPHALEXIN 500 MG CAPSULE PO (17:27)
[2024-07-28] MEDS: SODIUM CHLORIDE 0.9% IRRIG SOLUTION 1,000 ML BOTTLE 1000 ML IRR (17:27)
[2024-07-28 18:19] VITALS: BP 122/80; PULSE 98; O2SAT 100
== END 2024-07-28 18:19 | disposition home or self-care (01) ==
PROVIDERS: Emergency Provider Emergency Medicine; PCP Family Medicine
DX: S66.126A Laceration of flexor muscle, fascia and tendon of right little finger at wrist and hand level, initial encounter (principal); W26.0XXA Contact with knife, initial encounter; Z23 Encounter for immunization; J45.909 Unspecified asthma, uncomplicated; F17.200 Nicotine dependence, unspecified, uncomplicated
CPT/HCPCS: 12001; 73140; 90471; 90715; 99284

== ENCOUNTER 2024-08-18 09:02 | Outpatient (RCR) | payer MEDICAID, SELFPAY | END 2024-10-10 15:01 | disposition home or self-care (01) | LOC: OT 09:02 | PROVIDERS: PCP Family Medicine; Visit Provider Orthopaedic Surgery | DX: S66.126D Laceration of flexor muscle, fascia and tendon of right little finger at wrist and hand level, subsequent encounter (principal) | CPT/HCPCS: 97018; 97110; 97140; 97166; 97530 ==

== ENCOUNTER 2024-09-08 22:39 | Inpatient (IN) | payer MEDICAID, SELFPAY ==
[2024-09-08 22:39] VITALS: O2SAT 98
--- OUTSIDE RECORDS SUMMARY | 2024-09-08 22:45 | XMS_ITS | CCD ---
Author Organization [facility] Care Team Providers Care Roadway Engineer Name Role Phone Myra [phone] UNKNOWN Unavailable Unavailable Patten, Jose M R. [...] Patten, Jose M R. Unavailable Unavailable Blank, Donald S Unavailable Unavailable Blank, Donald S Unavailable Unavailable Blank, Donald S Unavailable Unavailable Blank, Donald S Unavailable Unavailable Blank, Donald S Unavailable Unavailable Blank, Donald S Unavailable Unavailable Blank, Donald S Unavailable Unavailable Blank, Donald S Unavailable Unavailable Blank, Donald S Unavailable Unavailable Blank, Donald S Unavailable Unavailable [facility], Sammie A. Unavailable Unavailable [facility], Sammie A. Unavailable Unavailable Shipman, Octavio Unavailable Unavailable [facility], Sammie A. Unavailable Unavailable [facility], Sammie A. Unavailable Unavailable Shipman, Octavio Unavailable Unavailable Provider, None Unavailable Unavailable Stalter, Vargas Unavailable Unavailable Stalter, Vargas Unavailable Unavailable Stalter, Vargas Unavailable Unavailable Stalter, Vargas Unavailable Unavailable Provider, None Unavailable Unavailable Provider, None Unavailable Unavailable [facility], Neeraj R. Unavailable Unavailable Mei, Neeraj R. Unavailable Unavailable Provider, None Unavailable Unavailable [facility], Neeraj R. Unavailable Unavailable Mei, Neeraj R. Unavailable Unavailable EBRAHEIM, OVI Unavailable Unavailable EB[facility], OVI Unavailable Unavailable SELF, REFERRED Unavailable Unavailable SELF, REFERRED Unavailable Unavailable MT Unavailable Unavailable EBRAHEIM, OVI Unavailable Unavailable MT Unavailable Unavailable FIDENCIO RAY Unavailable Unavailable HAY, LITTLE Admitting Unavailable HAY, LITTLE Attending Unavailable DEFRANCE, PLACIDO Primary Care Unavailable RADHA, LITTLE Consulting Unavailable JOANNA HEBERT Consulting Unavailkevin NUNN, LISA Consulting Unavailable JUSTIN ALEMAN Consulting Unavailable DEFRANCE, PLACIDO Primary Care Unavailable PONCHO, JENNIFER Coffey Admitting Unavailable PONCHO, JENNIFER Coffey Attending Unavailable PONCHO, JENNIFER Coffey Consulting Unavailable KELLY THOMAS Consulting Unavailable DEFRANCE, PLACIDO Admitting Unavailable DEFRANCE, PLACIDO Attending Unavailable DEFRANCE, PLACIDO Primary Care Unavailable DEFRANCE, PLACIDO Consulting Unavailable JUSTIN ESCOBAR Attending Unavailable DEFRANCE, PLACIDO T Attending Unavailable DEFRANCE, PLACIDO T Referring Unavailable DEFRANCE, PLACIDO T Primary Care Unavailable DEFRANCE, PLACIDO T Primary Care Unavailable JIN, CANDELARIO Attending Unavailable JIN, CANDELARIO Referring Unavailable DEFRANCE, PLACIDO T Primary Care Unavailable DEFRANCE, PLACIDO T Primary Care Unavailable HARTJOSE, WILLOW Sepulveda Attending Unavailable HARTLE, WILLOW Sepulveda Attending Unavailable HARTWILLOW GARCIA Referring Unavailable DEFRANCE, PLACIDO T Primary Care Unavailable DEFRANCE, PLACIDO T Primary Care Unavailable ROME CANALES Attending Unavailable ROME CANALES Attending Unavailable ROME CANALES Referring Unavailable DEFRANCE, PLACIDO T Primary Care Unavailable DEFRANCE, PLACIDO T Primary Care Unavailable JOSHUA PROCTOR Attending Unavailable DEFRANCE, PLACIDO T Referring Unavailable DEFRANCE, PLACIDO T Primary Care Unavailable DEFRANCE, PLACIDO T Primary Care Unavailable HAYES POOL Attending Unavailable OBRYCKDianna, HAYES Foley Attending Unavailable OBRYHAYES MONTANO Referring Unavailable DEFRANCE, PLACIDO T Primary Care Unavailable ARINDONALD Referring Unavailable DEFRANCE, PLACIDO T Primary Care Unavailable JOSHUA PROCTOR Attending Unavailable JOSHUA PROCTOR Referring Unavailable DEFRANCE, PLACIDO T Primary Care Unavailable ARIN, DONALD T Admitting Unavailable ARIN DONALD T Attending Unavailable No Family, Physician Primary Care Unavailable Problems Active Problems Problem Classification Problem Date Documented Date Episodic/Chronic Abdominal pain (4 sources) Upper abdominal pain, unspecified; Translations: [UPPER ABDOMINAL PAIN, UNSPECIFIED] Onset: 03-24-2020 Episodic Alcohol-related disorders (2 sources) Alcohol abuse, uncomplicated; Translations: [Alcohol intoxication] Onset: 04-09-2020 Chronic Anxiety disorders (1 source) [...] source) Pain in calf Onset: 06-05-2024 Episodic Other nervous system disorders (1 source) Other acute postprocedural pain; Translations: [Other acute postprocedural pain] Onset: 08-03-2024 Episodic Substance-related disorders (2 sources) Nicotine dependence, [...] Classification Problem Date Documented Da te Episodic/Chronic Alcohol-related disorders (1 source) Alcohol use, unspecified with intoxication, unspecified; Translations: [Alcohol use, unspecified with intoxication, unspecified] Onset: 04-09-2024 Episodic Open wounds of extremities (4 sources) Unspecified [...] Test Name Value Interpretation Reference Range Facility OPERATIVE REPORTon OPERATIVE REPORT [facility] [address] [place] [address] OPERATIVE REPORT PATIENT NAME:WILLOW WILKES :1990 MED REC NO:[id number] ROOM:[facility] ([facility] ACCOUNT NO:[id number] ADMIT DATE:08/03/2024 PROVIDER:Donald Hinkle DO DATE OF PROCEDURE: 08/03/2024 SURGEON: Donald Hinkle DO PREOPERATIVE DIAGNOSIS: Right small finger flexor digitorum profundus and flexor digitorum superficialis laceration in zone 2. POSTOPERATIVE DIAGNOSIS: Right small finger flexor digitorum profundus and flexor digitorum superficialis laceration in zone 2. OPERATION PERFORMED: 1. Repair of right small finger flexor digitorum profundus in zone 2. 2. Repair of ulnar slip of the flexor digitorum superficialis in zone 2. FLOUR BROKER: Pedro De La Fuente PA-C, assisted with positioning, draping, retraction, closure, dressing, and splint application. TYPE OF ANESTHESIA: Regional with sedation. BLOOD LOSS: Minimal. IMPLANTS: None. INDICATION FOR OPERATION: The patient is a 34-year-old male who cut his hand while carving a pumpkin. He had an obvious flexor tendon laceration on exam. I recommended wound exploration and repair of cut structures. Risks, benefits, and alternatives were reviewed. The patient elected to proceed. OPERATIVE SUMMARY: The patient was met in the preoperative holding area and the correct extremity was identified and marked. Informed consent was obtained. A nerve block was performed per the Anesthesia team. The patient was escorted to the operative suite and sedation was administered. He was prepped and draped in the standard surgical fashion. Time-out was taken. Correct patient, procedure, and operative site were agreed upon by all those present. I exsanguinated the arm with an Esmarch bandage. Tourniquet set at 250 mmHg. There was a 1-2 cm transverse laceration over the distal aspect of the proximal phalanx. This was extended proximally and distally in a zigzag fashion. Full-thickness flaps were carried down to the flexor sheath. The neurovascular bundles were identified and both digital nerves were intact. The flexor sheath was opened, releasing the entire A4 kenya. There was a complete laceration of flexor digitorum profundus and the superficialis. I was able to gently manipulate the proximal retracted tendon ends through the flexor sheath without making a separate incision in the palm. The tendons were gently advanced and then held into position with a hypodermic needle through the flexor sheath. I excised the radial slip of the FDS tendon. The ulnar slip was repaired initially with a 4-0 looped FiberWire. I then placed another 4-0 FiberWire creating essentially a 4-strand repair at the ulnar slip. I then repaired the flexor digitorum profundus with an M-Koch repair. I reinforced this with another 2-strand core suture. The repair was completed with an epitendinous 6-0 running Prolene. Next, after repair of the tendon, I could fully extend the finger passively without any gapping at the repair site. The wound was irrigated. The incision was closed with 4-0 nylon suture. Sterile dressing was applied. The tourniquet was let down. A dorsal blocking splint was applied. The patient was awakened from anesthesia. He was transferred to PACU in stable condition. There were no complications. He will follow up in 2 weeks for suture removal. He will begin physical therapy prior to his first followup visit. DONALD HINKLE DO MTE/AQS Doc#: [id number] Normal [facility] BASIC METABOLIC PANLon 08-02 Anion gap [Moles/Vol] 8 mmol/L Normal 5-15 [facility] Comment on above: Performed By: #### 4 8066-5, BMP, 80301-0, CBCA #### [facility] ([id number]) [address] [place] [address] 44086 Calcium [Mass/Vol] 9.8 mg/dL Normal 8.5-10.5 [facility] Comment on above: Performed By: #### 4 8066-5, CECY, 24863-6, CBCA #### [facility] ([id number]) [address] [place] [address] 71644 Chloride [Moles/Vol] 99 mmol/L Normal 98-109 [facility] Comment on above: Performed By: #### 4 8066-5, CECY, 25392-0, CBCA #### [facility] ([id number]) [address] [place] [address] 22103 CO2 [Moles/Vol] 28 mmol/L Normal 22-32 [facility] Comment on above: Performed By: #### 4 8066-5, CECY, 12133-2, CBCA #### [facility] ([id number]) [address] [place] [address] 40132 Creatinine [Mass/Vol] 0.80 mg/dL Normal 0.60-1.30 [facility] Comment on above: Result Comment: METH OD TRACEABLE TO IDMS STANDARD Performed By: #### 4 8066-5, CECY, 78995-5, CBCA #### [facility] ([id number]) [address] [place] [address] 92795 eGFR (CKD-EPI) NON-RACE DEPENDENT >90 Normal >59 [facility] Comment on above: Result Comment: Reported eGFR is based on the CKD-EPI 2020 equation that does not use a race coefficient. Performed By: #### 4 8066-5, CECY, 28517-3, CBCA #### [facility] ([id number]) [address] [place] [address] 44730 Glucose [Mass/Vol] 94 mg/dL Normal 65-99 [facility] Comment on above: Performed By: #### 4 8066-5, CECY, 82135-8, CBCA #### [facility] ([id number]) [address] [place] [address] 42777 Potassium [Moles/Vol] 4.0 mmol/L Normal 3.5-5.0 [facility] Comment on above: Performed By: #### 4 8066-5, CECY, 00705-2, CBCA #### [facility] ([id number]) [address] [place] [address] 93943 Sodium [Moles/Vol] 135 mmol/L Normal 134-146 [facility] Comment on above: Performed By: #### 4 8066-5, CECY, 51839-4, CBCA #### [facility] ([id number]) [address] [place] [address] 18029 Urea nitrogen [Mass/Vol] 17 mg/dL Normal 5-23 [facility] Comment on above: Performed By: #### 4 8066-5, CECY, 72375-9, CBCA #### [facility] ([id number]) [address] [place] [address] 62233 CBC AND AUTO DIFFon 10-23-20 24 ABSOLUTE BASOPHIL 0.1 X10E9/L Normal 0.0-0.2 [facility] Comment on above: Performed By: #### 4 8066-5, CECY, 90136-5, CBCA #### [facility] ([id number]) [address] [place] [address] 83601 ABSOLUTE NEUTROPHIL 3.9 X10E9/L Normal 1.5-6.6 [facility] Comment on above: Performed By: #### 4 8066-5, BMP, 79624-8, CBCA #### [facility] ([id number]) [address] [place] [address] 64871 Basophils/100 WBC (Bld) 1.4 % Normal [facility] Comment on above: Performed By: #### 4 8066-5, [facility], 64776-8, CBCA #### [facility] ([id number]) [address] [place] [address] 34419 Eosinophils (Bld) [#/Vol] 0.8 10*3/uL High 0.0-0.4 [facility] Comment on above: Performed By: #### 4 8066-5, CECY, 15399-8, CBCA #### [facility] ([id number]) [address] [place] [address] 72616 Eosinophils/100 WBC (Bld) 10.9 % Normal [facility] Comment on above: Performed By: #### 4 8066-5, [facility], 71056-3, CBCA #### [facility] ([id number]) [address] [place] [address] 29320 Erythrocyte distribution width (RBC) [Ratio] 12.9 % Normal 11.5-15.0 [facility] Comment on above: Performed By: #### 4 8066-5, CECY, 97371-6, CBCA #### [facility] ([id number]) [address] [place] [address] 37247 Hematocrit (Bld) [Volume fraction] 45.2 % Normal 39-49 [facility] Comment on above: Performed By: #### 4 8066-5, CECY, 64924-5, CBCA #### [facility] ([id number]) [address] [place] [address] 83605 Hemoglobin (Bld) [Mass/Vol] 15.2 g/dL Normal 13.0-17.0 [facility] Comment on above: Performed By: #### 4 8066-5, BMP, 28470-2, CBCA #### [facility] ([id number]) [address] [place] [address] 01209 Lymphocytes (Bld) [#/Vol] 1.7 10*3/uL Normal 1.0-3.5 [facility] Comment on above: Performed By: #### 4 8066-5, CECY, 22341-2, CBCA #### [facility] ([id number]) [address] [place] [address] 07820 Lymphocytes/100 WBC (Bld) 24.7 % Normal [facility] Comment on above: Performed By: #### 4 8066-5, CECY, 25849-0, CBCA #### [facility] ([id number]) [address] [place] [address] 56737 MCH (RBC) [Entitic mass] 31.0 pg Normal 27-34 [facility] Comment on above: Performed By: #### 4 8066-5, CECY, 34357-3, CBCA #### [facility] ([id number]) [address] [place] [address] 63777 MCHC (RBC) [Mass/Vol] 33.7 g/dL Normal 32-36 [facility] Comment on above: Performed By: #### 4 8066-5, CECY, 32924-5, CBCA #### [facility] ([id number]) [address] [place] [address] 72873 MCV (RBC) [Entitic vol] 92 fL Normal 80-100 [facility] Comment on above: Performed By: #### 4 8066-5, CECY, 83134-3, CBCA #### [facility] ([id number]) [address] [place] [address] 80058 Monocytes (Bld) [#/Vol] 0.6 10*3/uL Normal 0-0.9 [facility] Comment on above: Performed By: #### 4 8066-5, BMP, 91019-4, CBCA #### [facility] ([id number]) [address] [place] [address] 97540 Monocytes/100 WBC (Bld) 7.9 % Normal [facility] Comment on above: Performed By: #### 4 8066-5, BMP, 92029-2, CBCA #### [facility] ([id number]) [address] [place] [address] 05828 Neutrophils/100 WBC (Bld) 55.1 % Normal [facility] Comment on above: Performed By: #### 4 8066-5, CECY, 49469-5, CBCA #### [facility] ([id number]) [address] [place] [address] 65527 Platelet mean volume (Bld) [Entitic vol] 8.4 fL Normal 7-12 [facility] Comment on above: Performed By: #### 4 8066-5, BMP, 31808-8, CBCA #### [facility] ([id number]) [address] [place] [address] 33381 Platelets (Bld) [#/Vol] 272 10*3/uL Normal 150-450 [facility] Comment on above: Performed By: #### 4 8066-5, BMP, 69974-9, CBCA #### [facility] ([id number]) [address] [place] [address] 52265 RBC COUNT 4.91 X10E12/L Normal 4.10-5.70 [facility] Comment on above: Performed By: #### 4 8066-5, BMP, 87046-0, CBCA #### [facility] ([id number]) [address] [place] [address] 20225 WBC (Bld) [#/Vol] 7.0 10*3/uL Normal 4.0-11.0 [facility] Comment on above: Performed By: #### 4 8066-5, BMP, 61082-6, CBCA #### [facility] ([id number]) [address] [place] [address] 16086 CBC AND AUTO DIFFon 06-22-20 24 ABSOLUTE BASOPHIL 0.1 X10E9/L Normal 0.0-0.2 [facility] Comment on above: Performed By: #### 3 0934-4, 3040-3, CMP, CBCA, 96530-6 ####[facility] ([id number])[address] [place] [address] 87859 ABSOLUTE NEUTROPHIL 2.9 X10E9/L Normal 1.5-6.6 [facility] Comment on above: Performed By: #### 3 0934-4, 3040-3, CMP, CBCA, 10923-0 ####[facility] ([id number])[address] [place] [address] 74231 Basophils/100 WBC (Bld) 0.7 % Normal [facility] Comment on above: Performed By: #### 3 0934-4, 3040-3, CMP, CBCA, 94328-5 ####[facility] ([id number])[address] [place] [address] 39664 Eosinophils (Bld) [#/Vol] 1.0 10*3/uL High 0.0-0.4 [facility] Comment on above: Performed By: #### 3 0934-4, 3040-3, CMP, CBCA, 55816-9 ####[facility] ([id number])[address] [place] [address] Eosinophils/100 WBC (Bld) 12.1 % Normal [facility] Comment on above: Performed By: #### 3 0934-4, 3040-3, CMP, CBCA, 56875-1 ####[facility] ([id number])[address] [place] [address] 54085 Erythrocyte distribution width (RBC) [Ratio] 13.2 % Normal 11.5-15.0 [facility] Comment on above: Performed By: #### 3 0934-4, 3040-3, CMP, CBCA, 33612-3 ####[facility] ([id number])[address] [place] [address] 73532 Hematocrit (Bld) [Volume fraction] 42.3 % Normal 39-49 [facility] Comment on above: Performed By: #### 3 0934-4, 3040-3, CMP, CBCA, 74498-4 ####[facility] ([id number])[address] [place] [address] 49287 Hemoglobin (Bld) [Mass/Vol] 14.5 g/dL Normal 13.0-17.0 [facility] Comment on above: Performed By: #### 3 0934-4, 3040-3, CMP, CBCA, 37749-3 ####[facility] ([id number])[address] [place] [address] 22569 Lymphocytes (Bld) [#/Vol] 3.1 10*3/uL Normal 1.0-3.5 [facility] Comment on above: Performed By: #### 3 0934-4, 3040-3, CMP, CBCA, 49297-8 ####[facility] ([id number])[address] [place] [address] 60840 Lymphocytes/100 WBC (Bld) 39.4 % Normal [facility] Comment on above: Performed By: #### 3 0934-4, 3040-3, CMP, CBCA, 93362-7 ####[facility] ([id number])[address] [place] [address] 23757 MCH (RBC) [Entitic mass] 31.1 pg Normal 27-34 [facility] Comment on above: Performed By: #### 3 0934-4, 3040-3, CMP, CBCA, 46825-9 ####[facility] ([id number])[address] [place] [address] 46336 MCHC (RBC) [Mass/Vol] 34.1 g/dL Normal 32-36 [facility] Comment on above: Performed By: #### 3 0934-4, 3040-3, CMP, CBCA, 92740-7 ####[facility] ([id number])[address] [place] [address] 62845 MCV (RBC) [Entitic vol] 91 fL Normal 80-100 [facility] Comment on above: Performed By: #### 3 0934-4, 3040-3, CMP, CBCA, 16085-5 ####[facility] ([id number])[address] [place] [address] 31197 Monocytes (Bld) [#/Vol] 0.9 10*3/uL Normal 0-0.9 [facility] Comment on above: Performed By: #### 3 0934-4, 3040-3, CMP, CBCA, 77075-8 ####[facility] ([id number])[address] [place] [address] 78042 Monocytes/100 WBC (Bld) 11.3 % Normal [facility] Comment on above: Performed By: #### 3 0934-4, 3040-3, CMP, CBCA, 21876-9 ####[facility] ([id number])[address] [place] [address] 39391 Neutrophils/100 WBC (Bld) 36.5 % Normal [facility] Comment on above: Performed By: #### 3 0934-4, 3040-3, CMP, CBCA, 95788-0 ####[facility] ([id number])[address] [place] [address] 78727 Platelet mean volume (Bld) [Entitic vol] 8.2 fL Normal 7-12 [facility] Comment on above: Performed By: #### 3 0934-4, 3040-3, CMP, CBCA, 75658-6 ####[facility] ([id number])[address] [place] [address] 87862 Platelets (Bld) [#/Vol] 285 10*3/uL Normal 150-450 [facility] Comment on above: Performed By: #### 3 0934-4, 3040-3, CMP, CBCA, 62142-0 ####[facility] ([id number])[address] [place] [address] 83860 RBC COUNT 4.65 X10E12/L Normal 4.10-5.70 [facility] Comment on above: Performed By: #### 3 0934-4, 3040-3, CMP, CBCA, 67569-9 ####[facility] ([id number])[address] [place] [address] 81738 WBC (Bld) [#/Vol] 7.9 10*3/uL Normal 4.0-11.0 [facility] Comment on above: Performed By: #### 3 0934-4, 3040-3, CMP, CBCA, 63457-0 ####[facility] ([id number])[address] [place] [address] 24042 COMPREHENSIVE METABOLIC PANE Eladio 06-22-2024 Albumin [Mass/Vol] 4.5 g/dL Normal 3.2-5.3 [facility] Comment on above: Performed By: #### 3 0934-4, 3040-3, CMP, CBCA, 69497-5 ####[facility] ([id number])[address] [place] [address] 63345 ALP [Catalytic activity/Vol] 62 U/L Normal 39-130 [facility] Comment on above: Performed By: #### 3 0934-4, 3040-3, CMP, CBCA, 51167-8 ####[facility] ([id number])[address] [place] [address] 93134 ALT [Catalytic activity/Vol] 30 U/L Normal 0-40 [facility] Comment on above: Performed By: #### 3 0934-4, 3040-3, CMP, CBCA, 71269-1 ####[facility] ([id number])[address] [place] [address] 97718 Anion gap [Moles/Vol] 9 mmol/L Normal 5-15 [facility] Comment on above: Performed By: #### 3 0934-4, 3040-3, CMP, CBCA, 23372-4 ####[facility] ([id number])[address] [place] [address] 72187 AST [Catalytic activity/Vol] 28 U/L Normal 0-41 [facility] Comment on above: Performed By: #### 3 0934-4, 3040-3, CMP, CBCA, 39424-2 ####[facility] ([id number])[address] [place] [address] 08392 Bilirubin [Mass/Vol] 0.7 mg/dL Normal 0.3-1.2 [facility] Comment on above: Performed By: #### 3 0934-4, 3040-3, CMP, CBCA, 58672-9 ####[facility] ([id number])[address] [place] [address] 93508 Calcium [Mass/Vol] 9.3 mg/dL Normal 8.5-10.5 [facility] Comment on above: Performed By: #### 3 0934-4, 3040-3, CMP, CBCA, 02323-2 ####[facility] ([id number])[address] [place] [address] 01332 Chloride [Moles/Vol] 101 mmol/L Normal 98-109 [facility] Comment on above: Performed By: #### 3 0934-4, 3040-3, CMP, CBCA, 52127-9 ####[facility] ([id number])[address] [place] [address] 48376 CO2 [Moles/Vol] 23 mmol/L Normal 22-32 [facility] Comment on above: Performed By: #### 3 0934-4, 3040-3, CMP, CBCA, 98178-4 ####[facility] ([id number])[address] [place] [address] 85980 Creatinine [Mass/Vol] 0.80 mg/dL Normal 0.70-1.20 [facility] Comment on above: Result Comment: METH OD TRACEABLE TO IDMS STANDARD Performed By: #### 3 0934-4, 3040-3, CMP, CBCA, 23414-1 ####[facility] ([id number])[address] [place] [address] 56848 eGFR (CKD-EPI) NON-RACE DEPENDENT >90 Normal >59 [facility] Comment on above: Result Comment: Reported eGFR is based on the CKD-EPI 2020 equation that does not use a race coefficient. Performed By: #### 3 0934-4, 3040-3, CMP, CBCA, 96779-4 ####[facility] ([id number])[address] [place] [address] 39922 Glucose [Mass/Vol] 103 mg/dL High 65-99 [facility] Comment on above: Performed By: #### 3 0934-4, 3040-3, CMP, CBCA, 89749-2 ####[facility] ([id number])[address] [place] [address] 93527 Potassium [Moles/Vol] 3.8 mmol/L Normal 3.5-5.0 [facility] Comment on above: Performed By: #### 3 0934-4, 3040-3, CMP, CBCA, 47273-7 ####[facility] ([id number])[address] [place] [address] [id number] Protein [Mass/Vol] 7.7 g/dL Normal 6.0-8.0 [facility] Comment on above: Performed By: #### 3 0934-4, 3040-3, CMP, CBCA, 67363-8 ####[facility] ([id number])[address] [place] [address] 44448 Sodium [Moles/Vol] 133 mmol/L Low 134-146 [facility] Comment on above: Performed By: #### 3 0934-4, 3040-3, CMP, CBCA, 58391-4 ####[facility] ([id number])[address] [place] [address] 18595 Urea nitrogen [Mass/Vol] 22 mg/dL Normal 5-23 [facility] Comment on above: Performed By: #### 3 0934-4, 3040-3, CMP, CBCA, 69992-8 ####[facility] ([id number])[address] [place] [address] 92406 LIPASEon 06-22-2024 Lipase [Catalytic activity/Vol] 30 U/L Normal 17-40 [facility] Comment on above: Performed By: #### 3 0934-4, 3040-3, CMP, CBCA, 95253-3 ####[facility] ([id number])[address] [facility], [place] [address] Natriuretic peptide B [Mass/ Vol]on 06-22-2024 BRN NATRIURETIC PEP <5 Normal <100.0 [facility] Comment on above: Performed By: #### 4 8066-5, BMP, 76554-2, CBCA #### [facility] ([id number]) [address] [facility], [place] [address] SARS/FLU A+B/RSV by NAAT/Mol ecularon 06-22-2024 SARS/FLU [...] operators who are performing tests using either GeneDoctor Evidence DX or [employer] Bottom Drink systems and is limited to laboratories that [...] specimen repeat. Fact Sheet for Healthcare Providers: https://www.fda.gov/media/29380 2/download Fact Sheet for Patients: https://www.fda.gov/media/45202 6/download Normal [facility] Comment on above: Performed By: #### 4 8066-5, [facility], 43501-9, CBCA #### [facility] ([id number]) [address] [place] [address] 06529 Troponin I.cardiac High sens itivity method [Mass/Vol]on 06-22-2024 1 HOUR TROP I, HIGH SENSITIVITY 2 ng/L Normal <21 [facility] Comment on above: Performed By: #### 4 8066-5, [facility], 33832-9, CBCA #### [facility] ([id number]) [address] [place] [address] 66038 TROPONIN I, HIGH SENSITIVITY <2 Normal <21 [facility] Comment on above: Performed By: #### 4 8066-5, [facility], 85870-0, CBCA #### [facility] ([id number]) [address] [place] [address] 47837 VENOUS BLOOD GASon 4 IMMANUEL'S TEST Normal [facility] Comment on above: Performed By: #### V BG ####[facility] ([id number])[address] [place] [address] 79403 Base excess Calc (Bld) [Moles/Vol] 2.0 mmol/L Normal 0.0-2.0 [facility] Comment on above: Performed By: #### V BG ####[facility] ([id number])[address] [place] [address] 38099 Body temperature 98.6 [degF] Normal 37.0 [facility] Comment on above: Performed By: #### V BG ####[facility] ([id number])[address] [place] [address], [place] [address] HCO3 (Bld) [Moles/Vol] 26.0 mmol/L High 20.0-24.0 [facility] Comment on above: Performed By: #### V BG ####[facility] ([id number])[address] [place] [address], [place] [address] Oxygen saturation in Blood 89.0 % Normal >80.0 [facility] Comment on above: Performed By: #### V BG ####[facility] ([id number])[address] [place] [address] [place] [address] OXYGEN SOURCE RoomAir Normal [facility] Comment on above: Performed By: #### V BG ####[facility] ([id number])[address] [place] [address] [place] [address] PCO2, VENOUS 39.5 MMHG Normal 35-50 [facility] Comment on above: Performed By: #### V BG ####[facility] ([id number])[address] [place] [address], [place] [address] PH, VENOUS 7.426 High 7.320-7.42 0 [facility] Comment on above: Performed By: #### V BG ####[facility] ([id number])[address] [place] [address] [place] [address] PO2, VENOUS 55 MMHG High 30-50 [facility] Comment on above: Performed By: #### V BG ####[facility] ([id number])[address] [place] [address] [place] [address] SAMPLE SITE N/A Normal [facility] Comment on above: Performed By: #### V BG ####[facility] ([id number])[address] [place] [address] 70833 SAMPLE TYPE VENOUS Normal [facility] Comment on above: Performed By: #### V BG ####[facility] ([id number])[address] [place] [address] 52350 XR CHEST 2 VWSon 06-22-2024 XR CHEST [...] Berry MD on 06/22/2024 12:49 AM Normal [facility] CBC AND AUTO DIFFon 04-09-20 ABSOLUTE BASOPHIL 0.1 X10E9/L Normal 0.0-0.2 [facility] Comment on above: Performed By: #### Tamara PARKS CMP, 5643-2 #### [facility] ([id number]) [address] [place] [address] 47847 ABSOLUTE NEUTROPHIL 3.0 X10E9/L Normal 1.5-6.6 [facility] Comment on above: Performed By: #### Tamara PARKS CMP, 5643-2 #### [facility] ([id number]) [address] [place] [address] 61629 Basophils/100 WBC (Bld) 1.1 % Normal [facility] Comment on above: Performed By: #### Tamara PARKS CMP, 5643-2 #### [facility] ([id number]) [address] [place] [address] 70944 Eosinophils (Bld) [#/Vol] 0.5 10*3/uL High 0.0-0.4 [facility] Comment on above: Performed By: #### Tamara PARKS CMP, 5643-2 #### [facility] ([id number]) [address] [place] [address] 48355 Eosinophils/100 WBC (Bld) 7.1 % Normal [facility] Comment on above: Performed By: #### Tamara PARKS CMP, 5643-2 #### [facility] ([id number]) [address] [place] [address] 03879 Erythrocyte distribution width (RBC) [Ratio] 13.2 % Normal 11.5-15.0 [facility] Comment on above: Performed By: #### Tamara PARKS CMP, 5643-2 #### [facility] ([id number]) [address] [place] [address] 45688 Hematocrit (Bld) [Volume fraction] 43.8 % Normal 39-49 [facility] Comment on above: Performed By: #### Tamara PARKS CMP, 5643-2 #### [facility] ([id number]) [address] [place] [address] 88297 Hemoglobin (Bld) [Mass/Vol] 15.1 g/dL Normal 13.0-17.0 [facility] Comment on above: Performed By: #### Tamara PARKS CMP, 5643-2 #### [facility] ([id number]) [address] [place] [address] 59125 Lymphocytes (Bld) [#/Vol] 2.9 10*3/uL Normal 1.0-3.5 [facility] Comment on above: Performed By: #### Tamara PARKS CMP, 5643-2 #### [facility] ([id number]) [address] [place] [address] 94314 Lymphocytes/100 WBC (Bld) 42.1 % Normal [facility] Comment on above: Performed By: #### Tamara PARKS CMP, 5643-2 #### [facility] ([id number]) [address] [place] [address] 63052 MCH (RBC) [Entitic mass] 31.5 pg Normal 27-34 [facility] Comment on above: Performed By: #### Tamara PARKS CMP, 5643-2 #### [facility] ([id number]) [address] [place] [address] 10916 MCHC (RBC) [Mass/Vol] 34.4 g/dL Normal 32-36 [facility] Comment on above: Performed By: #### Tamara PARKS CMP, 5643-2 #### [facility] ([id number]) [address] [place] [address] 59173 MCV (RBC) [Entitic vol] 92 fL Normal 80-100 [facility] Comment on above: Performed By: #### Tamara PARKS CMP, 5643-2 #### [facility] ([id number]) [address] [place] [address] 08832 Monocytes (Bld) [#/Vol] 0.4 10*3/uL Normal 0-0.9 [facility] Comment on above: Performed By: #### Tamara PARKS CMP, 5643-2 #### [facility] ([id number]) [address] [place] [address] 53989 Monocytes/100 WBC (Bld) 6.3 % Normal [facility] Comment on above: Performed By: #### Tamara PARKS CMP, 5643-2 #### [facility] ([id number]) [address] [place] [address] 48446 Neutrophils/100 WBC (Bld) 43.4 % Normal [facility] Comment on above: Performed By: #### Tamara PARKS CMP, 5643-2 #### [facility] ([id number]) [address] [place] [address] 38372 Platelet mean volume (Bld) [Entitic vol] 7.7 fL Normal 7-12 [facility] Comment on above: Performed By: #### C BCA, CMP, 5643-2 #### [facility] ([id number]) [address] [place] [address] 64217 Platelets (Bld) [#/Vol] 292 10*3/uL Normal 150-450 [facility] Comment on above: Performed By: #### C CHARLY, CMP, 5643-2 #### [facility] ([id number]) [address] [place] [address] 69813 RBC COUNT 4.78 X10E12/L Normal 4.10-5.70 [facility] Comment on above: Performed By: #### Tamara PARKS, CMP, 5643-2 #### [facility] ([id number]) [address] [place] [address] 04894 WBC (Bld) [#/Vol] 6.8 10*3/uL Normal 4.0-11.0 [facility] Comment on above: Performed By: #### Tamara PARKS, CMP, 5643-2 #### [facility] ([id number]) [address] [place] [address] 32770 COMPREHENSIVE METABOLIC PANE Eladio 04-09-2024 Albumin [Mass/Vol] 4.6 g/dL Normal 3.2-5.3 [facility] Comment on above: Performed By: #### Tamara PARKS, CMP, 5643-2 #### [facility] ([id number]) [address] [place] [address] 83839 ALP [Catalytic activity/Vol] 57 U/L Normal 39-130 [facility] Comment on above: Performed By: #### C BCA, CMP, 5643-2 #### [facility] ([id number]) [address] [place] [address] 36908 ALT [Catalytic activity/Vol] 42 U/L High 0-40 [facility] Comment on above: Performed By: #### Tamara BCA, CMP, 5643-2 #### [facility] ([id number]) [address] [place] [address] 50116 Anion gap [Moles/Vol] 8 mmol/L Normal 5-15 [facility] Comment on above: Performed By: #### Tamara PARKS CMP, 5643-2 #### [facility] ([id number]) [address] [place] [address] 67810 AST [Catalytic activity/Vol] 44 U/L High 0-41 [facility] Comment on above: Performed By: #### Tamara PARKS CMP, 5643-2 #### [facility] ([id number]) [address] [place] [address] 67243 Bilirubin [Mass/Vol] 0.2 mg/dL Low 0.3-1.2 [facility] Comment on above: Performed By: #### Tamara PARKS CMP, 5643-2 #### [facility] ([id number]) [address] [place] [address] 79655 Calcium [Mass/Vol] 8.3 mg/dL Low 8.5-10.5 [facility] Comment on above: Performed By: #### Tamara PARKS [facility] [address], 5643-2 #### [facility] ([id number]) [address] [place] [address] 60476 Chloride [Moles/Vol] 108 mmol/L Normal 98-109 [facility] Comment on above: Performed By: #### Tamara PARKS CMP, 5643-2 #### [facility] ([id number]) [address] [place] [address] 51593 CO2 [Moles/Vol] 21 mmol/L Low 22-32 [facility] Comment on above: Performed By: #### Tamara PARKS CMP, 5643-2 #### [facility] ([id number]) [address] [place] [address] 46788 Creatinine [Mass/Vol] 1.00 mg/dL Normal 0.70-1.20 [facility] Comment on above: Result Comment: METH OD TRACEABLE TO IDMS STANDARD Performed By: #### Tamara PARKS CMP, 5643-2 #### [facility] ([id number]) [address] [place] [address] 43651 eGFR (CKD-EPI) NON-RACE DEPENDENT >90 Normal >59 [facility] Comment on above: Result Comment: Reported eGFR is based on the CKD-EPI 2020 equation that does not use a race coefficient. Performed By: #### C LYDIA PARKS, 5643-2 #### [facility] ([id number]) [address] [place] [address] 02246 Glucose [Mass/Vol] 99 mg/dL Normal 65-99 [facility] Comment on above: Performed By: #### Tamara PARKS CMP, 5643-2 #### [facility] ([id number]) [address] [place] [address] 29922 Potassium [Moles/Vol] 3.6 mmol/L Normal 3.5-5.0 [facility] Comment on above: Performed By: #### Tamara PARKS CMP, 5643-2 #### [facility] ([id number]) [address] [place] [address] 16740 Protein [Mass/Vol] 8.0 g/dL Normal 6.0-8.0 [facility] Comment on above: Performed By: #### Tamara PARKS CMP, 5643-2 #### [facility] ([id number]) [address] [place] [address] 14430 Sodium [Moles/Vol] 137 mmol/L Normal 134-146 [facility] Comment on above: Performed By: #### Tamara PARKS CMP, 5643-2 #### [facility] ([id number]) [address] [place] [address] 72442 Urea nitrogen [Mass/Vol] 15 mg/dL Normal 5-23 [facility] Comment on above: Performed By: #### C [facility], 5643-2 #### [facility] ([id number]) [address] [place] [address], [place] [address] CT ABDOMEN AND PELVIS W CONT on [...] Tidwell MD on 04/09/2024 3:10 AM Normal [facility] CT BRAIN WO CONTon CT BRAIN [...] Tidwell MD on 04/09/2024 2:39 AM Normal [facility] CT CERVICAL SPINE WO CONTon 04-09-2024 [...] Tidwell MD on 04/09/2024 2:40 AM Normal [facility] CT CHEST W CONTon 04-09-2024 CT [...] Víctor Salinas MD on 04/09/2024 3:07 AM IVishnu MD have personally reviewed the image(s) and agree with and/or edited the report Finalized by Vishnu Tidwell MD on 04/09/2024 3:21 AM Normal [facility] CT LUMBAR RECONSTRUCTIONon 0 04-09-2024 CT [...] Tidwell MD on 04/09/2024 3:06 AM Normal [facility] CT THORACIC RECONSTRUCTIONon 04-09-2024 CT THORACIC [...] Víctor Salinas MD on 04/09/2024 3:15 AM I, Vishnu Tidwell MD have personally reviewed the image(s) and agree with and/or edited the report Finalized by Vishnu Tidwell MD on 04/09/2024 3:23 AM Normal [facility] Ethanol [Mass/Vol]on 024 ETHANOL 0.34 g/dL High 0.00-0.08 [facility] Comment on above: Result Comment: This report is intended for use in clinical monitoring or management of patients. Performed By: #### C BCA, CMP, 5643-2 #### [facility] ([id number]) [address] [place] [address] 84846 BASIC METABOLIC PANLon 03-03 Anion gap [Moles/Vol] 10 mmol/L Normal 5-15 [facility] Comment on above: Performed By: #### 4 8066-5, BMP, 63810-9, CBCA #### [facility] ([id number]) [address] [place] [address] 47713 Calcium [Mass/Vol] 9.2 mg/dL Normal 8.5-10.5 [facility] Comment on above: Performed By: #### 4 8066-5, BMP, 16610-5, CBCA #### [facility] ([id number]) [address] [place] [address] 17179 Chloride [Moles/Vol] 102 mmol/L Normal 98-109 [facility] Comment on above: Performed By: #### 4 8066-5, BMP, 85360-9, CBCA #### [facility] ([id number]) [address] [place] [address] 92668 CO2 [Moles/Vol] 23 mmol/L Normal 22-32 [facility] Comment on above: Performed By: #### 4 8066-5, BMP, 86544-4, CBCA #### [facility] ([id number]) [address] [place] [address] 57345 Creatinine [Mass/Vol] 0.79 mg/dL Normal 0.70-1.20 [facility] Comment on above: Result Comment: METH OD TRACEABLE TO IDMS STANDARD Performed By: #### 4 8066-5, CECY, 14013-6, CBCA #### [facility] ([id number]) [address] [place] [address] 85699 eGFR (CKD-EPI) NON-RACE DEPENDENT >90 Normal >59 [facility] Comment on above: Result Comment: Reported eGFR is based on the CKD-EPI 2020 equation that does not use a race coefficient. Performed By: #### 4 8066-5, CECY, 60946-6, CBCA #### [facility] ([id number]) [address] [place] [address] 16263 Glucose [Mass/Vol] 109 mg/dL High 65-99 [facility] Comment on above: Performed By: #### 4 8066-5, CECY, 55757-8, CBCA #### [facility] ([id number]) [address] [place] [address] 66140 Potassium [Moles/Vol] 4.5 mmol/L Normal 3.5-5.0 [facility] Comment on above: Performed By: #### 4 8066-5, CECY, 26058-7, CBCA #### [facility] ([id number]) [address] [place] [address] 95358 Sodium [Moles/Vol] 135 mmol/L Normal 134-146 [facility] Comment on above: Performed By: #### 4 8066-5, CECY, 74481-1, CBCA #### [facility] ([id number]) [address] [place] [address] 25449 Urea nitrogen [Mass/Vol] 15 mg/dL Normal 5-23 [facility] Comment on above: Performed By: #### 4 8066-5, BMP, 45677-4, CBCA #### [facility] ([id number]) [address] [place] [address] 51264 CBC AND AUTO DIFFon 05-24-20 24 ABSOLUTE BASOPHIL 0.0 X10E9/L Normal 0.0-0.2 [facility] Comment on above: Performed By: #### 4 8066-5, BMP, 31755-8, CBCA #### [facility] ([id number]) [address] [place] [address] 43393 ABSOLUTE NEUTROPHIL 6.9 X10E9/L High 1.5-6.6 [facility] Comment on above: Performed By: #### 4 8066-5, BMP, 63274-5, CBCA #### [facility] ([id number]) [address] [place] [address] 74371 Basophils/100 WBC (Bld) 0.4 % Normal [facility] Comment on above: Performed By: #### 4 8066-5, BMP, 76148-2, CBCA #### [facility] ([id number]) [address] [place] [address] 16525 Eosinophils (Bld) [#/Vol] 0.2 10*3/uL Normal 0.0-0.4 [facility] Comment on above: Performed By: #### 4 8066-5, BMP, 77720-8, CBCA #### [facility] ([id number]) [address] [place] [address] 99451 Eosinophils/100 WBC (Bld) 2.2 % Normal [facility] Comment on above: Performed By: #### 4 8066-5, BMP, 82420-2, CBCA #### [facility] ([id number]) [address] [place] [address] 44502 Erythrocyte distribution width (RBC) [Ratio] 13.4 % Normal 11.5-15.0 [facility] Comment on above: Performed By: #### 4 8066-5, CECY, 67039-8, CBCA #### [facility] ([id number]) [address] [place] [address] 10701 Hematocrit (Bld) [Volume fraction] 47.2 % Normal 39-49 [facility] Comment on above: Performed By: #### 4 8066-5, CECY, 77378-6, CBCA #### [facility] ([id number]) [address] [place] [address] 38243 Hemoglobin (Bld) [Mass/Vol] 16.2 g/dL Normal 13.0-17.0 [facility] Comment on above: Performed By: #### 4 8066-5, CECY, 70534-1, CBCA #### [facility] ([id number]) [address] [place] [address] 76868 Lymphocytes (Bld) [#/Vol] 1.1 10*3/uL Normal 1.0-3.5 [facility] Comment on above: Performed By: #### 4 8066-5, CECY, 52657-9, CBCA #### [facility] ([id number]) [address] [place] [address] 90388 Lymphocytes/100 WBC (Bld) 13.0 % Normal [facility] Comment on above: Performed By: #### 4 8066-5, CECY, 80220-8, CBCA #### [facility] ([id number]) [address] [place] [address] 45927 MCH (RBC) [Entitic mass] 30.9 pg Normal 27-34 [facility] Comment on above: Performed By: #### 4 8066-5, CECY, 72084-6, CBCA #### [facility] ([id number]) [address] [place] [address] 59103 MCHC (RBC) [Mass/Vol] 34.2 g/dL Normal 32-36 [facility] Comment on above: Performed By: #### 4 8066-5, BMP, 13492-4, CBCA #### [facility] ([id number]) [address] [place] [address] 69222 MCV (RBC) [Entitic vol] 90 fL Normal 80-100 [facility] Comment on above: Performed By: #### 4 8066-5, BMP, 17385-6, CBCA #### [facility] ([id number]) [address] [place] [address] 00239 Monocytes (Bld) [#/Vol] 0.2 10*3/uL Normal 0-0.9 [facility] Comment on above: Performed By: #### 4 8066-5, BMP, 49987-5, CBCA #### [facility] ([id number]) [address] [place] [address] 25359 Monocytes/100 WBC (Bld) 2.3 % Normal [facility] Comment on above: Performed By: #### 4 8066-5, BMP, 69784-9, CBCA #### [facility] ([id number]) [address] [place] [address] 98342 Neutrophils/100 WBC (Bld) 82.1 % Normal [facility] Comment on above: Performed By: #### 4 8066-5, BMP, 32675-4, CBCA #### [facility] ([id number]) [address] [place] [address] 20185 Platelet mean volume (Bld) [Entitic vol] 8.0 fL Normal 7-12 [facility] Comment on above: Performed By: #### 4 8066-5, BMP, 23380-3, CBCA #### [facility] ([id number]) [address] [place] [address] 22610 Platelets (Bld) [#/Vol] 329 10*3/uL Normal 150-450 [facility] Comment on above: Performed By: #### 4 8066-5, CECY, 38082-4, CBCA #### [facility] ([id number]) [address] [place] [address] 02000 RBC COUNT 5.22 X10E12/L Normal 4.10-5.70 [facility] Comment on above: Performed By: #### 4 8066-5, CECY, 37802-6, CBCA #### [facility] ([id number]) [address] [place] [address] 82069 WBC (Bld) [#/Vol] 8.4 10*3/uL Normal 4.0-11.0 [facility] Comment on above: Performed By: #### 4 8066-5, CECY, 38708-3, CBCA #### [facility] ([id number]) [address] [place] [address] 02747 Fibrin D-dimer DDU (PPP) [Ma ss/Vol]on 03-03-2024 D DIMER <150 Normal <255 [facility] Comment on above: Result Comment: Results <255 ng/mL DDU: The presence of a VTE can safely be excluded with a negative D-Dimer result and Wells score. A negative result doesn't exclude the possibility of DIC. The test be repeated along with other diagnostic tests if the patient's symptoms persist or worsen. [email or web address] Performed By: #### 4 8066-5, CECY, 51177-4, CBCA #### [facility] ([id number]) [address] [place] [id number] Troponin I.cardiac High sens itivity method [Mass/Vol]on 03-03-2024 TROPONIN I, HIGH SENSITIVITY 2 ng/L Normal <21 [facility] Comment on above: Performed By: #### 4 8066-5, BMP, 96503-7, CBCA #### [facility] ([id number]) [address] [facility], [place] [address] XR CHEST 1 VWon 03-03-2024 XR CHEST [...] Branch MD on 03/03/2024 6:25 AM Normal [facility] XR TOE RT GREAT TOE MIN [...] Víctor Salinas MD on 12/15/2023 4:25 PM Saw Bustamante MD have personally reviewed the image(s) and agree with and/or edited the report Finalized by Saw Lucas MD on 12/15/2023 4:46 PM Normal [facility] XR TOE RT GREAT TOE MIN [...] Crystal Cox MD on 11/28/2023 10:44 PM IAmerica MD have personally reviewed the image(s) and agree with and/or edited the report Finalized by America Loya MD on 11/28/2023 10:51 PM Normal [facility] COVID-19 PCRon 05-28-2020 SARS-CoV-2, TARIQ Not Detected Normal Not Detected [facility] Comment on above: Result Comment: This test was developed and its performance characteristics determined by [employer]. This test has not been FDA cleared [...] #### [facility] [address] [place] [address] Mary Aly AMMONIAon 04-05-2020 Ammonia (P) [Mass/Vol] 26 umol/L Normal 10-30 [facility] Comment on above: Performed By: #### A MM #### [facility] [address] [place], [place] [id number] Mary Aly CARDIAC JENNIFER ADMITon 020 CK [Catalytic activity/Vol] 229 U/L Critically high 55-170 [facility] Comment on above: Result Comment: test repeated critical value verified Performed By: #### L ACT #### [facility] [address] [place], [place] [id number] Mary Aly CK.MB [Mass/Vol] 1.95 ng/mL Normal <=2.37 [facility] Comment on above: Performed By: #### L ACT #### [facility] [address] [place], [place] [id number] Mary Aly INR Coag (Bld) [Relative time] SEE BELOW Normal [facility] Comment on above: Result Comment: <0.0 34 ng/ml NEGATIVE 0.034-0.119 INDETERMINATE 0.120 AMI CUT OFF Performed By: #### L ACT #### [facility] [address] [place] [address] Mary Aly PAIGE 88.0 ng/mL Normal <=121.0 [facility] Comment on above: Performed By: #### L ACT #### [facility] [address] [place], [place] [address] Mary Sheeba TROP <0.012 Normal <=0.034 [facility] Comment on above: Performed By: #### L ACT #### [facility] [address] [place], [place] [address] Mary Varelaen CBC AUTO DIFFon 04-05-2020 Basophils (Bld) [#/Vol] 0.1 103/ul Normal 0.0-0.1 [facility] Comment on above: Performed By: #### C BC #### [facility] [address] [place], [place] [address] Mary Aly Basophils/100 WBC (Bld) 1.1 % Normal 0.2-2.0 [facility] Comment on above: Performed By: #### C BC #### [facility] [address] [place], [place] [address] Mary Sheeba Eosinophils (Bld) [#/Vol] 0.8 103/ul Critically high 0.0-0.7 [facility] Comment on above: Performed By: #### C BC #### [facility] [address] [place], [place] [address] Mary Sheeba Eosinophils/100 WBC (Bld) 6.1 % Normal 0.9-7.0 [facility] Comment on above: Performed By: #### C BC #### [facility] [address] [place], [place] [address] Mary Sheeba Erythrocyte distribution width (RBC) [Ratio] 12.6 % Normal 11.0-15.0 [facility] Comment on above: Performed By: #### C BC #### [facility] [address] [place] [address] Mary Sheeba Hematocrit (Bld) [Volume fraction] 45.1 % Normal 42.0-54.0 [facility] Comment on above: Performed By: #### C BC #### [facility] [address] [place] [address] Mary Sheeba Hemoglobin (Bld) [Mass/Vol] 15.6 g/dL Normal 14.0-18.0 [facility] Comment on above: Performed By: #### C BC #### [facility] [address] [place], [place] [address] Mary Sheeba IG # 0.07 10e3/ul Critically high 0.00-0.03 [facility] Comment on above: Performed By: #### C BC #### [facility] [address] [place], [place] [address] Mary Sheeba IG % 0.6 % Critically high 0.0-0.5 [facility] Comment on above: Performed By: #### C BC #### [facility] [address] [place], [place] [address] Mary Sheeba Lymphocytes (Bld) [#/Vol] 4.7 103/ul Critically high 1.2-3.8 [facility] Comment on above: Performed By: #### C BC #### [facility] [address] [place], [place] [address] Mary Sheeba Lymphocytes/100 WBC (Bld) 38.2 % Normal 20.5-60.0 [facility] Comment on above: Performed By: #### C BC #### [facility] [address] [place], [place] [address] Mary Sheeba MANUAL DIFF REQ NO Normal [facility] Comment on above: Performed By: #### C BC #### [facility] [address] [place], [place] [address] Mary Sheeba MCH (RBC) [Entitic mass] 31.8 pg Normal 25.9-34.0 [facility] Comment on above: Performed By: #### C BC #### [facility] [address] [place], [place] [address] Mary Sheeba MCHC (RBC) [Mass/Vol] 34.6 g/dL Normal 29.9-35.2 [facility] Comment on above: Performed By: #### C BC #### [facility] [address] [place], [place] [address] Mary Sheeba MCV (RBC) [Entitic vol] 92.0 fL Normal 80.0-94.0 [facility] Comment on above: Performed By: #### C BC #### [facility] [address] [place], [place] [address] Mary Sheeba Monocytes (Bld) [#/Vol] 0.8 103/ul Normal 0.3-0.8 [facility] Comment on above: Performed By: #### C BC #### [facility] [address] [place], [place] [address] Mayr Sheeba Monocytes/100 WBC (Bld) 6.8 % Normal 1.7-12.0 [facility] Comment on above: Performed By: #### C BC #### [facility] [address] [place], [place] [address] Mary Sheeba Neutrophils (Bld) [#/Vol] 5.8 103/ul Normal 1.4-6.5 [facility] Comment on above: Performed By: #### C BC #### [facility] [address] [place], [place] [address] Mary Sheeba Neutrophils/100 WBC (Bld) 47.2 % Normal 43.0-75.0 [facility] Comment on above: Performed By: #### C BC #### [facility] [address] [place], [place] [address] Mary Aly Platelet mean volume (Bld) [Entitic vol] 9.9 fL Normal 9.5-13.5 [facility] Comment on above: Performed By: #### C BC #### [facility] [address] [place], [place] [address] Mary Aly Platelets (Bld) [#/Vol] 293 103/ul Normal 150-450 [facility] Comment on above: Performed By: #### C BC #### [facility] [address] [place], [place] [address] Mary Aly RBC (Bld) [#/Vol] 4.90 106/ul Normal 4.70-6.10 [facility] Comment on above: Performed By: #### C BC #### [facility] [address] [place], [place] [address] Mary Aly WBC (Bld) [#/Vol] 12.3 103/ul Critically high 4.0-11.0 [facility] Comment on above: Performed By: #### C BC #### [facility] [address] [place], [place] [address] Mary Aly D-DIMERon 04-05-2020 D-DIMER COMMENTS SEE BELOW Normal [facility] Comment on above: Result Comment: Incr [...] #### [facility] [address] [place] [address] Mary Aly Fibrin D-dimer FEU IA (Bld) [Mass/Vol] 0.29 ug/mL Normal 0.19-0.50 [facility] Comment on above: Performed By: #### L ACT #### [facility] [address] [place] [address] Mary Sheeba DRUG SCREEN RAPID (URINE)on 04-05-2020 AMP Negative Normal NEGATIVE [facility] Comment on above: Performed By: #### L ACT #### [facility] [address] [place] [address] Mary Sheeba BAR Negative Normal NEGATIVE [facility] Comment on above: Performed By: #### L ACT #### [facility] [address] [place] [address] [facility] Normal NEGATIVE [facility] Comment on above: Performed By: #### L ACT #### [facility] [address] [place] [address] [facility] BZO Negative Normal NEGATIVE [facility] Comment on above: Performed By: #### L ACT #### [facility] [address] [place] [address] [facility] ADAMARIS Negative Normal NEGATIVE [facility] Comment on above: Performed By: #### L ACT #### [facility] [address] [place] [address] CUT-OFFS SEE BELOW Normal [facility] [...] ACT #### [facility] [address] [place] [address] DRUG CUT HEADER DRUG CLASS TEST SYST EM CUT-OFF CONCENTRATIONS ARE FOLLOWS: Normal [facility] Comment on above: Performed By: #### L ACT #### [facility] [address] [place] [address] Mary Sheeba mAMP Negative Normal NEGATIVE [facility] Comment on above: Performed By: #### L ACT #### [facility] [address] [place] [address] Mary Sheeba MTD Negative Normal NEGATIVE [facility] Comment on above: Performed By: #### L ACT #### [facility] [address] [place] [address] Mary Sheeba OPI Negative Normal NEGATIVE [facility] Comment on above: Performed By: #### L ACT #### [facility] [address] [place] [address] Mary Sheeba OXY Negative Normal NEGATIVE [facility] Comment on above: Performed By: #### L ACT #### [facility] [address] [place] [address] Mary Sheeba PCP Negative Normal NEGATIVE [facility] Comment on above: Performed By: #### L ACT #### [facility] [address] [place] [address] Mary Sheeba PPX Negative Normal NEGATIVE [facility] Comment on above: Performed By: #### L ACT #### [facility] [address] [place] [address] Mary Sheeba TCA Negative Normal NEGATIVE [facility] Comment on above: Performed By: #### L ACT #### [facility] [address] [place] [address] Mary Sheeba THC Negative Normal NEGATIVE [facility] Comment on above: Performed By: #### L ACT #### [facility] [address] [place] [address] Mary Sheeba ETHANOL (BLD ALC)on 04-05-20 20 Ethanol [Mass/Vol] NOTE: 80 mg/dl is th e legal limit for a blood alcohol level Normal [facility] Comment on above: Performed By: #### E TH #### [facility] [address] [place] [address] Mary Sheeba Ethanol [Mass/Vol] 242 mg/dL Normal [facility] Comment on above: Performed By: #### E TH #### [facility] [address] [place], [place] [address] Mary Aly PROF 14(COMP METB)on 020 Albumin [Mass/Vol] 4.0 g/dL Normal 3.5-5.0 [facility] Comment on above: Performed By: #### L ACT #### [facility] [address] [place], [place] [address] Mary Sheeba Albumin/Globulin [Mass ratio] 1.1 {ratio} Normal [facility] Comment on above: Performed By: #### L ACT #### [facility] [address] [place], [place] [address] Maryjong Aly ALP [Catalytic activity/Vol] 74 U/L Normal 38-126 [facility] Comment on above: Performed By: #### L ACT #### [facility] [address] [place], [place] [address] Mary Sheeba ALT [Catalytic activity/Vol] 37 U/L Normal 21-72 [facility] Comment on above: Performed By: #### L ACT #### [facility] [address] [place], [place] [address] Mary Aly Anion gap [Moles/Vol] 19.2 mmol/L Normal [facility] Comment on above: Performed By: #### L ACT #### [facility] [address] [place], [place] [address] Mary Sheeba AST [Catalytic activity/Vol] 31 U/L Normal 17-59 [facility] Comment on above: Performed By: #### L ACT #### [facility] [address] [place], [place] [address] Mary Sheeba Bilirubin Ql (U) 0.3 mg/dL Normal 0.2-1.3 [facility] Comment on above: Performed By: #### L ACT #### [facility] [address] [place], [place] [address] Mary Sheeba Calcium [Mass/Vol] 8.6 mg/dL Normal 8.4-10.2 [facility] Comment on above: Performed By: #### L ACT #### [facility] [address] [address] Mary Sheeba Chloride [Moles/Vol] 105 mmol/L Normal 98-107 [facility] Comment on above: Performed By: #### L ACT #### [facility] [address] [address] Mary Sheeba CO2 [Moles/Vol] 22.5 mmol/L Normal 22.0-30.0 [facility] Comment on above: Performed By: #### L ACT #### [facility] [address] [place] [address] Mary Sheeba Creatinine [Mass/Vol] 0.79 mg/dL Normal 0.66-1.25 [facility] Comment on above: Performed By: #### L ACT #### [facility] [address] [place] [address] Mary Seheba EGFR-AF AFGHAN >60 Normal >=60 [facility] Comment on above: Performed By: #### L ACT #### [facility] [address] [place] [address] Mary Sheeba EGFR-NON AF AFGHAN >60 Normal >=60 [facility] Comment on above: Performed By: #### L ACT #### [facility] [address] [place] [address] Mary Sheeba Globulin (S) [Mass/Vol] 3.8 g/dL Normal [facility] Comment on above: Performed By: #### L ACT #### [facility] [address] [place] [address] Mary Sheeba Glucose [Mass/Vol] 103 mg/dL Normal 74-106 [facility] Comment on above: Performed By: #### L ACT #### [facility] [address] [place] [address] Mary Sheeba Potassium [Moles/Vol] 3.7 mmol/L Normal 3.4-5.0 [facility] Comment on above: Result Comment: slig htly hemolyzed Performed By: #### L ACT #### [facility] [address] [address] Mary Sheeba Protein [Mass/Vol] 7.8 g/dL Normal 6.1-8.2 [facility] Comment on above: Performed By: #### L ACT #### [facility] [address] [id number] Mary Aly Sodium [Moles/Vol] 143 mmol/L Normal 137-145 [facility] Comment on above: Performed By: #### L ACT #### [facility] [address] [address] Mary Sheeba Urea nitrogen [Mass/Vol] 6.0 mg/dL Critically low 9.0-20.0 [facility] Comment on above: Performed By: #### L ACT #### [facility] [address] [address] Mary Sheeba Urea nitrogen/Creatinin e [Mass ratio] 7.6 mg/mg Normal [facility] Comment on above: Performed By: #### L ACT #### [facility] [address] [address] Mary Varelaen XR CHEST 1 Von 04-05-2020 XR CHEST [...] by: KELLY THOMAS Date: 2020-04-05 21:[address] [facility] [address] ABD/PELV W CONon 03-25-20 20 [...] #### [facility] [address] [place], [place] [address] Mary Sheeba CBC AUTO DIFFon 03-24-2020 Basophils (Bld) [#/Vol] 0.1 103/ul Normal 0.0-0.1 [facility] Comment on above: Performed By: #### C BC #### [facility] [address] [place] [address] Mary Sheeba Basophils/100 WBC (Bld) 0.6 % Normal 0.2-2.0 [facility] Comment on above: Performed By: #### C BC #### [facility] [address] [place] [address] Mary Sheeba Eosinophils (Bld) [#/Vol] 0.4 103/ul Normal 0.0-0.7 [facility] Comment on above: Performed By: #### C BC #### [facility] [address] [place], [place] [address] Mary Sheeba Eosinophils/100 WBC (Bld) 3.1 % Normal 0.9-7.0 [facility] Comment on above: Performed By: #### C BC #### [facility] [address] [place] [address] Mary Sheeba Erythrocyte distribution width (RBC) [Ratio] 12.7 % Normal 11.0-15.0 [facility] Comment on above: Performed By: #### C BC #### [facility] [address] [place] [address] Mary Aly Hematocrit (Bld) [Volume fraction] 47.5 % Normal 42.0-54.0 [facility] Comment on above: Performed By: #### C BC #### [facility] [address] [place] [address] Mary Aly Hemoglobin (Bld) [Mass/Vol] 16.2 g/dL Normal 14.0-18.0 [facility] Comment on above: Performed By: #### C BC #### [facility] [address] [place] [address] Maryjong Aly IG # 0.06 10e3/ul Critically high 0.00-0.03 [facility] Comment on above: Performed By: #### C BC #### [facility] [address] [place] [address] Mary Aly IG % 0.5 % Normal 0.0-0.5 [facility] Comment on above: Performed By: #### C BC #### [facility] [address] [place] [address] Mary Aly Lymphocytes (Bld) [#/Vol] 2.2 103/ul Normal 1.2-3.8 [facility] Comment on above: Performed By: #### C BC #### [facility] [address] [place] [address] Mary Aly Lymphocytes/100 WBC (Bld) 17.1 % Critically low 20.5-60.0 [facility] Comment on above: Performed By: #### C BC #### [facility] [address] [place], [place] [address] Mary Aly MANUAL DIFF REQ NO Normal [facility] Comment on above: Performed By: #### C BC #### [facility] [address] [place] [address] Mary Aly MCH (RBC) [Entitic mass] 31.9 pg Normal 25.9-34.0 [facility] Comment on above: Performed By: #### C BC #### [facility] [address] [place], [place] [address] Maryjong Aly MCHC (RBC) [Mass/Vol] 34.1 g/dL Normal 29.9-35.2 [facility] Comment on above: Performed By: #### C BC #### [facility] [address] [place], [place] [address] Mary Sheeba MCV (RBC) [Entitic vol] 93.5 fL Normal 80.0-94.0 [facility] Comment on above: Performed By: #### C BC #### [facility] [address] [place], [place] [address] Mary Sheeba Monocytes (Bld) [#/Vol] 0.9 103/ul Critically high 0.3-0.8 [facility] Comment on above: Performed By: #### C BC #### [facility] [address] [place] [address] Mary Sheeba Monocytes/100 WBC (Bld) 6.5 % Normal 1.7-12.0 [facility] Comment on above: Performed By: #### C BC #### [facility] [address] [place], [place] [address] Mary Sheeba Neutrophils (Bld) [#/Vol] 9.5 103/ul Critically high 1.4-6.5 [facility] Comment on above: Performed By: #### C BC #### [facility] [address] [place], [place] [address] Mary Sheeba Neutrophils/100 WBC (Bld) 72.2 % Normal 43.0-75.0 [facility] Comment on above: Performed By: #### C BC #### [facility] [address] [place], [place] [address] Mary Sheeba Platelet mean volume (Bld) [Entitic vol] 10.5 fL Normal 9.5-13.5 [facility] Comment on above: Performed By: #### C BC #### [facility] [address] [place], [place] [address] Mary Aly Platelets (Bld) [#/Vol] 271 103/ul Normal 150-450 [facility] Comment on above: Performed By: #### C BC #### [facility] [address] [place], [place] [address] Mary Aly RBC (Bld) [#/Vol] 5.08 106/ul Normal 4.70-6.10 [facility] Comment on above: Performed By: #### C BC #### [facility] [address] [place], [place] [address] Mary Aly WBC (Bld) [#/Vol] 13.1 103/ul Critically high 4.0-11.0 [facility] Comment on above: Performed By: #### C BC #### [facility] [address] [place], [place] [address] Mary Aly LACTATE/LACTIC ACIDon 2019 Lactate [Moles/Vol] 0.8 mmol/L Normal 0.7-2.0 [facility] Comment on above: Performed By: #### L ACT #### [facility] [address] [place] [address] Maryjong Aly LIPASEon 03-24-2020 Lipase [Catalytic activity/Vol] 123.0 U/L Normal 23.0-300.0 [facility] Comment on above: Performed By: #### C REJI DARIAN, LIPA #### [facility] [address] [place], [place] [address] Maryjong Varelaen PROF 14(COMP METB)on 020 Albumin [Mass/Vol] 4.5 g/dL Normal 3.5-5.0 [facility] Comment on above: Performed By: #### C MP, DARIAN, LIPA #### [facility] [address] [place], [place] [address] Mary Sheeba Albumin/Globulin [Mass ratio] 1.2 {ratio} Normal [facility] Comment on above: Performed By: #### C MP DARIAN, LIPA #### [facility] [address] [place], [place] [address] Mary Sheeba ALP [Catalytic activity/Vol] 69 U/L Normal 38-126 [facility] Comment on above: Performed By: #### C MP, DARIAN, LIPA #### [facility] [address] [place] [address] Mary Sheeba ALT [Catalytic activity/Vol] 27 U/L Normal 21-72 [facility] Comment on above: Performed By: #### C MP, DARIAN, LIPA #### [facility] [address] [place] [address] Mary Sheeba Anion gap [Moles/Vol] 13.0 mmol/L Normal [facility] Comment on above: Performed By: #### C REJI, DARIAN, LIPA #### [facility] [address] [place] [address] Mary Sheeba AST [Catalytic activity/Vol] 19 U/L Normal 17-59 [facility] Comment on above: Performed By: #### C REJI DARIAN, LIPA #### [facility] [address] [place] [address] Mary Sheeba Bilirubin Ql (U) 0.4 mg/dL Normal 0.2-1.3 [facility] Comment on above: Performed By: #### C REJI DARIAN, LIPA #### [facility] [address] [place] [address] Mary Sheeba Calcium [Mass/Vol] 10.0 mg/dL Normal 8.4-10.2 [facility] Comment on above: Performed By: #### C REJI DARIAN, LIPA #### [facility] [address] [place] [address] Mary Sheeba Chloride [Moles/Vol] 100 mmol/L Normal 98-107 [facility] Comment on above: Performed By: #### C MP, DARIAN, LIPA #### [facility] [address] [place] [address] Mary Sheeba CO2 [Moles/Vol] 27.7 mmol/L Normal 22.0-30.0 [facility] Comment on above: Performed By: #### C MP, DARIAN, LIPA #### [facility] [address] [place], [place] [address] Mary Sheeba Creatinine [Mass/Vol] 0.70 mg/dL Normal 0.66-1.25 [facility] Comment on above: Performed By: #### C DARIAN MENDOZA LIPA #### [facility] [address] [place] [address] Mary Sheeba EGFR-AF AFGHAN >60 Normal >=60 [facility] Comment on above: Performed By: #### C DARIAN MENDOZA, LIPA #### [facility] [address] [place] [address] Mary Sheeba EGFR-NON AF AFGHAN >60 Normal >=60 [facility] Comment on above: Performed By: #### C DARIAN MENDOZA, LIPA #### [facility] [address] [place] [address] Mary Sheeba Globulin (S) [Mass/Vol] 3.8 g/dL Normal [facility] Comment on above: Performed By: #### C DARIAN MENDOZA, LIPA #### [facility] [address] [place] [address] Mary Sheeba Glucose [Mass/Vol] 103 mg/dL Normal 74-106 [facility] Comment on above: Performed By: #### C DARIAN MENDOZA, LIPA #### [facility] [address] [place] [address] Mray Sheeba Potassium [Moles/Vol] 3.7 mmol/L Normal 3.4-5.0 [facility] Comment on above: Performed By: #### C DARIAN MENDOZA, LIPA #### [facility] [address] [place] [address] Mary Sheeba Protein [Mass/Vol] 8.3 g/dL Critically high 6.1-8.2 [facility] Comment on above: Performed By: #### C DARIAN MENDOZA, LIPA #### [facility] [address] [place] [address] Mary Sheeba Sodium [Moles/Vol] 137 mmol/L Normal 137-145 [facility] Comment on above: Performed By: #### C DARIAN MENDOZA, LIPA #### [facility] [address] [place] [address] Mary Sheeba Urea nitrogen [Mass/Vol] 13.0 mg/dL Normal 9.0-20.0 [facility] Comment on above: Performed By: #### C DARIAN MENDOZA LIPA #### [facility] [address] [address] Mary Aly Urea nitrogen/Creatinin e [Mass ratio] 18.6 mg/mg Normal [facility] Comment on above: Performed By: #### C DARIAN MENDOZA LIPA #### [facility] [address] [address] Mary Aly XR ABD FLAT UP_PA Abiola [...] by: LISA NUNN Date: 2020-03-24 21:01 Normal [facility] Coding Summary.on 11-12-2017 Coding Summary. CODING DATE: 018 FINAL [facility] STATUS: Home (Routine DC) PAYOR: Medicaid EAPG [...] Blanc Date Saved: 11/12/2017 08:29 am Normal [facility] Coding Summary.on 10-29-2017 Coding Summary. CODING DATE: FINAL [facility] STATUS: Home (Routine DC) PAYOR: Medicaid ADMIT [...] Blanc Date Saved: 10/29/2017 07:50 am Normal [facility] Coding Summary.on 10-19-2017 Coding Summary. CODING DATE: [facility] STATUS: Home w/ Home Health PAYOR: Medicaid [...] dependence, cigarettes, uncomplicated PROCEDURES DOCTOR NAME DATE [id number] Drainage of Lower Back, Jose M Kumar MD 10/08/2017 [facility] NOTE: The code number assigned matches the documented diagnosis and / or procedure in the patient's chart. However, the narrative phrase printed from the coding software may appear abbreviated, or result in slightly different terminology. Coded By: Toña Espinosa Date Saved: 10/19/2017 02:22 pm [facility] Discharge Summaryon 10-16-19 18 Discharge Summary Patient: Alexx WILKES Age: 27 years Sex: Male : 1990 Associated Diagnoses: None Author: Sushant DC, [facility] Discharge Information Discharge Summary Information: Admit Date/Time: 10/05/17 17:35 Discharge Date/Time: 10/16/17 10:50 Admitting Physician: Luis F Benavides DO Referring Physician for Admission: Consulting Physicians: Klarissa Thomason, Donald Patten MD, Jose M Camilo Admitting Diagnoses: Pain in back Dizziness Nausea Increased heart rate Discharge Diagnoses: Cellulitis of back [any part except buttock] Cutaneous abscess, unspecified Hypo-osmolality and hyponatremia Abnormal levels of other serum enzymes Prescription and Home Meds: acetaminophen-hydrocodone (Dalbo 325 mg-5 mg oral tablet) See Instructions, [...] 103 (OCT 15 15:00)Resp Rate 20 (OCT 16:00) 14 (OCT 16 01:49) 20 (OCT 16 07:00)SBP 119 (OCT 16:00) 105 (OCT 15 19:30) 125 (OCT 16:49)DBP 64 (OCT 16:) L 54 (OCT 15 12:11) 75 (OCT 16:49)MAP 91 (OCT 16:49) 72 (OCT 15 12:11) 91 (OCT 16:49)SpO2 98 (OCT 16:) 96 (OCT 15 15:00) 98 (OCT 16:) General: Alert and oriented, No acute distress. [...] fluid. Mild paralumbar tenderness.. Integumentary: Warm, Dry, Nile. Neurologic: Alert, Oriented. Psychiatric: Cooperative, Appropriate mood & affect. Hospital Course 27-year-old male with no significant past medical history presented with complaints of left flank and left lower back pain of about 2-3 weeks duration associated with fever, chills and nausea. He was subsequently admitted to [facility] with sepsis secondary to left paralumbar MSSA [...] reviewed with patient, called to pharmacy. [facility] Comment on above: Result Comment: Elec tronically Signed By: Sushant DC, Chekofo\.br\Date and Time Signed: 10/16/17 13:50 EST Inpatient Clinical Summaryon 10-16-2017 Inpatient Clinical Summary [place] [address] Clinical Summary Person Information:Name: WILLOW WILKES Age: 27 Years : 1990 12:00 AM Sex: Male PCP: Myra Middleton MD Marital Status:Single Race:White Ethnicity:Non- or Language:Gabonese Visit Id: Visit Reason:Increased heart rate; Nausea; Dizziness; Pain in back; CELLULITIS, PHLEGMON, TACHYCARDIA Speciality: Acuity: 3 Enc Type: Inpatient Med Service: Medical Arrival:10/05/2017 5:35 PM Discharge: Dispo Type: Admitted as IP to this Hosp Address:[address] [place] [address] [phone] Provider Notes: Diagnosis:Cellulitis of lower back; Elevated [...] Immunizations Documented This Visit Final Med List:acetaminophen-hydrocodone (Dalbo 325 mg-5 mg oral tablet) 1 - [...] Sandor DC, Jose M Camilo; Klarissa Thomason, Donald Delcid Physician: Follow up:With: Address: When: Myra Middleton [address] [place] [phone] Business (1) Within 5 to 7 days Comments: Call for followup appointment. No answer With: Address: When: Donald Cyr [address] [place] [address] Business (1) Within 2 weeks Comments: Call for followup appointment. Office computer is down right now. Call Wednesday for appointment With: Address: When: Jose M Patten [address] [place] [address], [address] [place] [address] Business (1) 10/28/17 09:55:00 Comments: Call for followup appointment With: Address: When: Wound Clinic: [facility] [phone] 10/14/17 08:00:00 Comments: Keep scheduled appointment Patient Education Information: Cellulitis, Ghbm-jz-SqagThzcnl, Dalbo 5/325 Tab [facility] Inpatient Patient Summaryon 10-16-2017 Inpatient Patient Summary [address] [address] Patient Discharge Instructions PERSON INFORMATION Name: WILLOW WILKES Date of : 1990 12:00 AM Current Date: 10/16/17 12:14:08 PHYSICIANS Admitting Physician: [facility]: Kane DC, [facility] Comment: Discharge Diagnosis: Cellulitis of lower back; [...] NoneFollow up:With: Address: When: Myra Middleton [address] [place] [address] Business (1) Within 5 to 7 days Comments: Call for followup appointment. No answer With: Address: When: Donald Cyr [address] [facility] [place] [address] Business (1) Within 2 weeks Comments: Call for followup appointment. Office computer is down right now. Call Wednesday for appointment With: Address: When: Jose M Patten [facility] [address], [address] [place] [address] Business (1) 10/28/17 09:55:00 Comments: Call for followup appointment With: Address: When: Wound Clinic: [place] [phone] 10/14/17 08:00:00 Comments: Keep scheduled appointment In the event that this physician does not participate in your insurance network, please consult with your insurance company to find a nearby participating provider. Comment: I, WILLOW WILKES, have received the attached patient education materials/instructions and have verbalized understanding:Patient Signature Date Clinican/Nurse Signature Date HERE ARE THE MEDICATION CHANGES THAT OCCURRED DURING YOUR HOSPITAL STAY [facility], [address] [facility] [place] [address], [phone]-hydrocodone (Dalbo 325 mg-5 mg oral tablet) 1 - [...] THIS WITH YOU AT ALL TIMES. acetaminophen-hydrocodone (Dalbo 325 mg-5 mg oral tablet) 1 - [...] for 14 Days. Refills: 0.Pharmacy Information: Other: Anandt- YonnytComment: PATIENT EDUCATION INFORMATIONInstructions:Celluli tisCellulitis is an infection [...] 02/11/2015 Document Reviewed: 12/12/2012ExitCare? Patient Information ?2015 [employer]. This information is not intended to replace [...] may report side effects to FDA at 3-941-NPO-6054. What other drugs will affect cephalexin?Other drugs may interact with cephalexin, including prescription and gifb-gdu-pylqoka medicines, vitamins, and herbal products. Tell each [...] to ensure that the information provided by [employer]. ('[employer]') is accurate, up-to-date, and complete, but no guarantee is made to that effect. Drug information contained herein may be time sensitive. [employer] information has been compiled for use by healthcare practitioners and consumers in the [place] and therefore [employer] does not warrant that uses outside of the [place] are appropriate, unless specifically indicated otherwise. [employer]'s drug information does not endorse drugs, diagnose patients or recommend therapy. [employer] drug information is an informational resource designed [...] effective or appropriate for any given patient. [employer] does not assume any responsibility for any aspect of healthcare administered with the aid of information [employer] provides. The information contained herein is not intended to cover all possible uses, directions, precautions, warnings, drug interactions, allergic reactions, or adverse effects. If you have questions about the drugs you are taking, check with your doctor, nurse or pharmacist. Copyright 2830-9015 [employer]. Version: 9.01. Revision Date: 01/26/2017.acetaminophen and hydrocodone (a SEET a MIN oh fen and pete droe KOE done)Hycet, Lorcet, Lortab 10/325, Lortab 5/325, Lortab 7.5/325, Lortab Elixir, Dalbo, Verdrocet, Vicodin, Xodol, Zamicet What is the [...] may report side effects to FDA at 0-028-YDH-3432.What other drugs will affect acetaminophen and hydrocodone?Narcotic [...] with acetaminophen and hydrocodone, including prescription and vryj-tbi-lakjcve medicines, vitamins, and herbal products. Not all [...] to ensure that the information provided by [employer]. ('[employer]') is accurate, up-to-date, and complete, but no guarantee is made to that effect. Drug information contained herein may be time sensitive. [employer] information has been compiled for use by healthcare practitioners and consumers in the [place] and therefore [employer] does not warrant that uses outside of the [place] are appropriate, unless specifically indicated otherwise. [employer]'s drug information does not endorse drugs, diagnose patients or recommend therapy. [employer] drug information is an informational resource designed [...] effective or appropriate for any given patient. [employer] does not assume any responsibility for any aspect of healthcare administered with the aid of information [employer] provides. The information contained herein is not intended to cover all possible uses, directions, precautions, warnings, drug interactions, allergic reactions, or adverse effects. If you have questions about the drugs you are taking, check with your doctor, nurse or pharmacist. Copyright 6020-3919 [employer]. Version: 14.11. Revision Date: 07/09/2016. Thank you for choosing [facility] Interdisciplinary Note - Brett e Manageron 10-15-2017 Interdisciplinary Note - Video Tape Duplicator Daily rounds completed with hospitalist Dr. Canchola, MARY Cuellar, Pharmacist Maryjane present. Patient alert and oriented, involved in POC. Discussed medications, labs, and tests. Pt remains in isolation. No family present at this time. Patient?s goal is to return home with [facility] at discharge. Anticipated discharge yet to be determined, awaiting wound vac authorization from [place] [employer]. Contact and goal information updated on white board. [facility] Progress Note-Physicianon Progress Note-Physician Patient: WILLOW WILKES [...] (4)ceFAZolin 2 gram 50 mL, IV Piggyback, q7aiypcbrnjd sodium 100 mg Cap [F] 100 mg 1 cap(s), Oral, BIDnicotine 14 mg/24 hr Transderm ER Film [F] 14 mg 1 patch(es), TransDermal, DailySodium Chloride 0.9% 500 mL 500 mL, IVContinuous: (1)Lactated Ringers 1,000 mL 1,000 mL, IV, 20 mL/hrPRN: (6)acetaminophen 325 mg Tab UD [F] 650 mg 2 tab(s), Oral, f3sigqglsklwivtkp-lhiirfqag 325 mg-5 mg Tab [F] 1 tab(s), Oral, h6uaqhitdpgzp 0.083% Inh Mary 3 mL [F] 2.5 mg 3 mL, NEB, p7pwhgjeifhnl CFC free 90 mcg/inh Inh Aer w/Adapt 8.5 gm [F] 180 microgram 2 puff(s), Inhalation, h4rzxslobmmv 2 mg/mL preservative-free SOLN [F] 2 mg 1 mL, IV Push, j5hquxaaquynvea 2 mg/mL Inj [F] 4 mg 2 mL, IV Push, q6hr Problem list: All ProblemsImpaired skin integrity / SNOMED CT 96708574 / ConfirmedProblem added on documentation of skin impairments.At risk for falls / SNOMED CT 389546284 / PossibleProblem added when Risk for Falls Careplan was initiated.Smoker / IMO [id number] / ConfirmedAdded secondary to documentation in Social History.Resolved: Asthma / SNOMED CT 545235927 Histories Past Medical History: ResolvedAsthma ([id number]): Resolved. Family History: AsthmaMother Procedure history: Incision AND drainage (SNOMED CT 233342714) performed by Jose M Patten MD on 10/08/2017 at 27 Years.Comments:10/08/2017 19:32 - Magda RN, Julieta IGLESIAS AND D AND IRRIGATION LEFT LOWER BACK ABCESS 10 X 15 CMIncision AND drainage (SNOMED CT 453788890).Comments:10/06/2017 06:12 - Philippe Cabezas RN right hand Social History Social & Psychosocial CpezowTuixdgh34/26/2017 Risk Assessment: Denies Alcohol UseSubstance Abuse10/05/2017 Risk Assessment: Denies Substance SfncyKrckbzm80/26/2017 Risk Assessment: High Risk10/05/2017 Use: Current Every [...] 08:51) 95 (OCT 14 20:09) 97 (OCT 15:52). Vitals Signs (last 24 hrs) Last Charted [...] 08:51) 95 (OCT 14 20:09) 97 (OCT 15:52) [...] by: Yury Delarosa MDTranscribed by: JENNIFFER Technologist: CHCUK TODDThis document has an imageResult type: US Abdomen, LimitedResult date: October 07, 2017 18:20 ESTResult status: Auth (Verified)Result title: US Abdomen, LimitedPerformed by: Yury Delarosa MD on October 08, 2017 08:58 ESTVerified by: Yury Delarosa MD on October 08, 2017 08:58 [facility] info: [id number], [facility], Inpatient, 10/05/2017 - . Condition: Fair. [...] wound VAC. Awaiting precertification by insurance. [facility] Comment on above: Result Comment: Elec tronically Signed By: Sushant DC, Juan Pablo\.br\Date and Time Signed: 10/15/17 11:21 EST Progress Note-Physician Patient: WILLOW WILKES Age: 27 years Sex: Male : 1990 Associated Diagnoses: None Author: Donald Cyr M.D Subjective Continues to improve. No fevers. Tolerating antibiotic. Review of Systems Constitutional: Negative. Musculoskeletal: Back pain: On the right side, In the lower region, The pain is mild. Health Status Allergies: Allergic Reactions (Selected)No Known Allergies Current medications: Medications (11) ActiveScheduled: (4)ceFAZolin 2 gram 50 mL, IV Piggyback, z2ycucpovvwp sodium 100 mg Cap [F] 100 mg 1 cap(s), Oral, BIDnicotine 14 mg/24 hr Transderm ER Film [F] 14 mg 1 patch(es), TransDermal, DailySodium Chloride 0.9% 500 mL 500 mL, IVContinuous: (1)Lactated Ringers 1,000 mL 1,000 mL, IV, 20 mL/hrPRN: (6)acetaminophen 325 mg Tab UD [F] 650 mg 2 tab(s), Oral, w2kujxashqkgtoxwc-qiabmoycl 325 mg-5 mg Tab [F] 1 tab(s), Oral, a8ennwecilnju 0.083% Inh Mary 3 mL [F] 2.5 mg 3 mL, NEB, b3bbgomntejsx CFC free 90 mcg/inh Inh Aer w/Adapt 8.5 gm [F] 180 microgram 2 puff(s), Inhalation, g5ziawmotdzz 2 mg/mL preservative-free SOLN [F] 2 mg 1 mL, IV Push, z0lmwiichuntxot 2 mg/mL Inj [F] 4 mg 2 mL, IV Push, q6hr Problem list: All ProblemsAt risk for falls / SNOMED CT 890117075 / PossibleProblem added when Risk for Falls Careplan was initiated.Impaired skin integrity / SNOMED CT 38740785 / ConfirmedProblem added on documentation of skin impairments.Smoker / IMO 200932 / ConfirmedAdded secondary to documentation in Social [...] 08:51) 95 (OCT 14 20:09) 97 (OCT 14 11:06) General: Alert and [...] on dc for total 3 weeks. . [facility] Comment on above: Result Comment: Elec tronically Signed By: Donald Cyr M.D.pretty\Date and Time Signed: 10/15/17 10:25 EST Interdisciplinary [...] and goal information updated on white board. [facility] Progress Note-Physicianon Progress Note-Physician Patient: WILLOW [...] (4)ceFAZolin 2 gram 50 mL, IV Piggyback, v9jyefpwvxbr sodium 100 mg Cap [F] 100 mg 1 cap(s), Oral, BIDnicotine 14 mg/24 hr Transderm ER Film [F] 14 mg 1 patch(es), TransDermal, DailySodium Chloride 0.9% 500 mL 500 mL, IVContinuous: (1)Lactated Ringers 1,000 mL 1,000 mL, IV, 20 mL/hrPRN: (6)acetaminophen 325 mg Tab UD [F] 650 mg 2 tab(s), Oral, h5rsvijkojgmzzwwv-kspqarqad 325 mg-5 mg Tab [F] 1 tab(s), Oral, x7tgiyynblwiu 0.083% Inh Mary 3 mL [F] 2.5 mg 3 mL, NEB, o6oyaiontoxpo CFC free 90 mcg/inh Inh Aer w/Adapt 8.5 gm [F] 180 microgram 2 puff(s), Inhalation, b2tkugooufbf 2 mg/mL preservative-free SOLN [F] 2 mg 1 mL, IV Push, v4xqttggfyaampk 2 mg/mL Inj [F] 4 mg 2 mL, IV Push, q6hr Problem list: All ProblemsImpaired skin integrity / SNOMED CT 94619347 / ConfirmedProblem added on documentation of skin impairments.At risk for falls / SNOMED CT 448270486 / PossibleProblem added when Risk for Falls Careplan was initiated.Smoker / IMO 520447 / ConfirmedAdded secondary to documentation in Social History.Resolved: Asthma / SNOMED CT 975530170 Histories Past Medical History: ResolvedAsthma ([id number]): Resolved. Family History: AsthmaMother Procedure history: Incision AND drainage (SNOMED CT 705248285) performed by Jose M Patten MD on 10/08/2017 at 27 Years.Comments:10/08/2017 19:32 - Magda RN, Julieta IGLESIAS AND [place] AND IRRIGATION LEFT LOWER BACK ABCESS 10 X 15 CMIncision AND drainage (SNOMED CT 710478597).Comments:10/06/2017 06:12 - Raulito THOMPSON, Philippe right hand Social History Social & Psychosocial CqbfmwEnvqzks07/26/2017 Risk Assessment: Denies Alcohol UseSubstance Abuse10/05/2017 Risk Assessment: Denies Substance NkwmfRvbigsz05/26/2017 Risk Assessment: High Risk10/05/2017 Use: Current Every Day Smoker Type: Cigarettes Tobacco use per day: 0.5. Objective VS/Measurements: Vitals Signs (last 24 hrs) Last Charted Minimum MaximumTemp 36.7 (OCT 14 09:59) 36.6 (OCT 13 23:00) 36.7 (OCT 13 16:31)Heart Rate 86 (OCT 14 11:06) 86 (OCT 14:06) H 103 (OCT 13 [...] (OCT 13 16:31)Heart Rate 86 (OCT 14 11:) 86 (OCT 14 11:) H 103 (OCT 13 23:00)Resp Rate 16 [...] Delarosa MD on October 08, 2017 08:58 [facility] info: [id number], [facility], Inpatient, 10/05/2017 - . Condition: Fair. [...] wound VAC. Awaiting precertification by insurance. [facility] Comment on above: Result Comment: Elec tronically Signed By: Sushant DC, Mbanefo\.br\Date and Time Signed: 10/14/17 11:09 EST C [...] days.Performing LocationsR1: This test was performed at: [facility], [address] [place] [address], [address] [place] [address] Comment on above: Performed By: #### 1 [id number], [id number], [id number], [id number], [id number] ####[address] [address] Bacteria culture MicrobiologyPROCEDUR E: Blood Culture [R1] Blood BODY SITE: Arm RCOLLECTED DATE/TIME: 10/05/2017 23:08 EST RECEIVED DATE/TIME: 10/06/2017 01:00 ESTSTART DATE/TIME: 10/06/2017 01:00 EST FREE TEXT SOURCE: Peripheral vein site #1Hwalter Mcfadden, Анна Torres M.D., Анна HFINAL REPORTSFinal Report [] Verified Date/Time: 10/13/2017 03:00 ESTNo growth at 7 days.Performing LocationsR1: This test was performed at: [facility], [address] [place] [address], [address] [place] [address] Comment on above: Performed By: #### 1 [id number], [id number], [id number] ####[facility] [address] [place] [address] Interdisciplinary Note - Brett e Manageron 10-13-2017 Interdisciplinary Note - Video Tape Duplicator Daily rounds completed with hospitalist Dr. Canchola, MARY Cuellar, Pharmacist Maryjane, Circle Saw Operator Damaris, and RN present. Patient alert and oriented, involved in POC. Discussed medications, labs, and tests. No family present at this time. Patient?s goal is to return home with [facility] & [facility] wound Vac at discharge. Anticipated discharge yet to be determined, awaiting wound vac authorization. Contact and goal information updated on white board. [facility] Progress Note-Physicianon Progress Note-Physician Patient: WILLOW WILKES [...] (4)ceFAZolin 2 gram 50 mL, IV Piggyback, i4utmlwufmrn sodium 100 mg Cap [F] 100 mg 1 cap(s), Oral, BIDnicotine 14 mg/24 hr Transderm ER Film [F] 14 mg 1 patch(es), TransDermal, DailySodium Chloride 0.9% 500 mL 500 mL, IVContinuous: (1)Lactated Ringers 1,000 mL 1,000 mL, IV, 20 mL/hrPRN: (5)acetaminophen 325 mg Tab UD [F] 650 mg 2 tab(s), Oral, j1facticczvqj 0.083% Inh Mary 3 mL [F] 2.5 mg 3 mL, NEB, z8zqmnthovuwc CFC free 90 mcg/inh Inh Aer w/Adapt 8.5 gm [F] 180 microgram 2 puff(s), Inhalation, x3fkxvrezbgx 2 mg/mL preservative-free SOLN [F] 4 mg 2 mL, IV Push, q4zfmdaejtvbuqz 2 mg/mL Inj [F] 4 mg 2 mL, IV Push, q6hr Problem list: All ProblemsImpaired skin integrity / SNOMED CT 42657760 / ConfirmedProblem added on documentation of skin impairments.At risk for falls / SNOMED CT 552780251 / PossibleProblem added when Risk for Falls Careplan was initiated.Smoker / IMO 103760 / ConfirmedAdded secondary to documentation in Social History.Resolved: Asthma / SNOMED CT 196778962 Histories Past Medical History: ResolvedAsthma ([id number]): Resolved. Family History: AsthmaMother Procedure history: Incision AND drainage (SNOMED CT 103636703) performed by Jose M Patten MD on 10/08/2017 at 27 Years.Comments:10/08/2017 19:32 - Magda RN, Julieta NI AND D AND IRRIGATION LEFT LOWER BACK ABCESS 10 X 15 CMIncision AND drainage (SNOMED CT 489867623).Comments:10/06/2017 06:12 - Philippe Cabezas RN right hand Social History Social & Psychosocial TpyzmlWrcqpmq03/26/2017 Risk Assessment: Denies Alcohol UseSubstance Abuse10/05/2017 Risk Assessment: Denies Substance YginzDhfjoko25/26/2017 Risk Assessment: High Risk10/05/2017 Use: Current Every [...] Delarosa MD on October 08, 2017 08:58 [facility] info: [id number], [facility], Inpatient, 10/05/2017 - . Condition: [...] homebound wound VAC. Awaiting precertification by insurance. [facility] Comment on above: Result Comment: Elec tronically Signed By: Sushant DC, Juan Pablo\.br\Date and Time Signed: 10/13/17 11:01 EST Interdisciplinary Note - Brett e Manageron 10-12-2017 Interdisciplinary Note - Video Tape Duplicator Daily rounds completed with hospitalist Dr. Canchola, MARY Cuellar, Pharmacist Maryjane, Circle Saw Operator Damaris, and Dara THOMPSON present. Patient alert and oriented, involved in POC. Discussed medications, labs, and tests. Await Dr. Patten and ID recommendations. Oral Atbx at d/c. No family present at this time. Patient?s goal is to return home with [facility] at discharge. Anticipated discharge yet to be determined, possibly later today. Contact and goal information updated on white board. [facility] Main OR Intraoperative Recor don 10-12-2017 Main OR Intraoperative Record IntraOp Document Type FT Summary Primary Physician: Jose M Patten MD Finalized Date/Time: 10/12/17 11:18:39 Pt. Name: WILLOW WILKES/Sex: 1990 Male Med Rec #: [id number] Physician: Анна Torres M.D. Financial #: [id number] Pt. 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 Case Attendance FT Entry 1 Entry 2 Entry 3 Case Attendee Nabil SHETTY, Claudia Patten MD, Jose M Zayas RN, Darron Cardoso Role Performed Anesthesiologist of Surgeon - Primary Purchasing Buyer - Primary Record Time In 10/08/17 14:16:00 [...] 6 Case Attendee Kenroy ARANGON, RN, Ben DISH PERSON, Junior Downey RN, CNOR, CRNFA, Yoselin ONC, Sharmaine Role Performed Purchasing Buyer - Other Scrub - Primary Purchasing Buyer - Other Time In 10/08/17 14:16:00 10/08/17 [...] Dirty Last Modified By: LUIS Downey RN, PHONG MATTHEWS [place] 10/08/17 14:47:02 General Case Data FT [...] LUIS Downey RN, PHONG MATTHEWS [place] 10/08/17 14:51:59 Post-Care Text: The patient is free from signs and symptoms of infection Skin Assessment (Pre Procedure) FT Pre-Care Text: Implements protective measures to prevent skin/ tissue injury due to thermal or mechanical sources Evaluates for signs and symptoms of physical injury to skin and tissue Entry 1 Skin Integrity Intact, Nile, Warm, and Skin Abnormality Yes Dry Abnormality Location LEFT LOWER BACK Abnormality Type RED AND SWELLING Outcomes Met? Yes Last Modified By: Shayan THOMPSON, ANTHONYOR, CASSIE, ONC, Sharmaine 10/08/17 14:30:33 Post-Care Text: The patient is [...] (vac pac) Press Points Checked Yes By Marquez THOMPSON, Nabil Suero Carly C, Weisenburger BSN, Yoselin THOMPSON Outcomes Met? Yes Last Modified By: Shayan THOMPSON, ANTHONYOR, CASSIE, ONC, Sharmaine 10/08/17 14:20:39 Post-Care Text: [...] Yes Yes Last Modified By: Shayan THOMPSON, ANTHONYOR, CASSIE, Shayan RN, CNOR, SIDDHARTHA, Shayan THOMPSON, ANTHONYOR, CASSIE, ONC, Sharmaine 10/08/17 ONC, Sharmaine 10/08/17 ONC, Sharmaine 10/08/17 14:22:12 14:22:12 14:31:18 Entry 4 Equipment Type MISTRAL FORCED AIR WARMING SYSTEM UNIT[F] Equipment Number M [id number] Equipment Setting Outcomes Met? Yes Last Modified By: LUIS Downey RN, CASSIE, ONC, Sharmaine 10/08/17 14:36:01 Post-Care Text: The patient is [...] LUIS Downey RN, CRNFA, ONC, [place] 10/08/17 14:20:45 Post-Care Text: The patient is free from signs and symptoms of injury related to transfer/transport Counts Verification FT Pre-Care Text: Performs required counts Entry 1 Procedure(s) CYST LESION REMOVAL Type Initial GENERAL ANES(.) Items Instruments Status Correct Time 10/08/17 14:18:00 By Junior Contreras CST, Weisenburger BSN, RN, Yoselin Outcomes Met? Yes Last Modified By: LUIS [...] RN Patient Status Stable Skin. Condition Intact, Nile, Warm, and Description EXCEPT FOR OPERATIVE Dry [...] Last Modified By: LUIS Downey RN, CRNFA, LUIS Downey RN, CRNFA, ONC, Sharmaine 10/08/17 Sharmaine DARLING 10/08/17 14:38:26 14:38:26 Post-Care Text: The patient [...] safely administered during the perioperative period For [facility] please see scanned medication reconcilliation form [...] AIR Quantity 1 Aid PLUS LOWER BODY [[id number]][F] Fluid/[place] [facility] [place]ral warming system Body Site Lower anterior torso Last Modified By: LUIS Downey RN, CRNFA, ONC, Lucille 10/08/17 14:36:32 Case Comments Finalized By: Vi Ambriz CST Document Signatures Signed By: LUIS Downey RN, CRNFA, ONC, Lucille 10/08/17 14:52 Vi Ambriz CST 10/12/17 11:18 Normal [facility] Progress Note-Physicianon Progress Note-Physician Patient: WILLOW WILKES Age: 27 years Sex: Male : 1990 Associated Diagnoses: None Author: Donald Cyr M.D Subjective Doing better overall since I&D. Culture with MSSA. Health Status Allergies: Allergic Reactions (Selected)No Known Allergies Current medications: Medications (10) ActiveScheduled: (4)ceFAZolin 2 gram 50 mL, IV Piggyback, f6bugzqdzsai sodium 100 mg Cap [F] 100 mg 1 cap(s), Oral, BIDnicotine 14 mg/24 hr Transderm ER Film [F] 14 mg 1 patch(es), TransDermal, DailySodium Chloride 0.9% 500 mL 500 mL, IVContinuous: (1)Lactated Ringers 1,000 mL 1,000 mL, IV, 20 mL/hrPRN: (5)acetaminophen 325 mg Tab UD [F] 650 mg 2 tab(s), Oral, u5mstonphsnbb 0.083% Inh Mary 3 mL [F] 2.5 mg 3 mL, NEB, u2qwalnkogsrt CFC free 90 mcg/inh Inh Aer w/Adapt 8.5 gm [F] 180 microgram 2 puff(s), Inhalation, l2fgcibqmrqs 2 mg/mL preservative-free SOLN [F] 4 mg 2 mL, IV Push, r5jtblffiavqnze 2 mg/mL Inj [F] 4 mg 2 mL, IV Push, q6hr Problem list: All ProblemsAt risk for falls / SNOMED CT 036406521 / PossibleProblem added when Risk for Falls Careplan was initiated.Impaired skin integrity / SNOMED CT 99472693 / ConfirmedProblem added on documentation of skin impairments.Smoker / IMO [id number] / ConfirmedAdded secondary to documentation in Social History. Objective Vitals Signs (last 24 hrs) Last Charted Minimum MaximumTemp 36.6 (OCT 12 11:00) 36.5 (OCT 11 19:57) 36.6 (OCT 12 07:00)Heart Rate 72 (OCT [...] 2-3 weeks. Wound care per surgery.. Normal [facility] Comment on above: Result Comment: Elec tronically Signed By: Donald Cyr M.D\Date and Time Signed: 10/12/17 16:12 EST Progress [...] (4)ceFAZolin 2 gram 50 mL, IV Piggyback, l0xpmpjgaijo sodium 100 mg Cap [F] 100 mg 1 cap(s), Oral, BIDnicotine 14 mg/24 hr Transderm ER Film [F] 14 mg 1 patch(es), TransDermal, DailySodium Chloride 0.9% 500 mL 500 mL, IVContinuous: (1)Lactated Ringers 1,000 mL 1,000 mL, IV, 20 mL/hrPRN: (5)acetaminophen 325 mg Tab UD [F] 650 mg 2 tab(s), Oral, n9ztjbfyyhcwm 0.083% Inh Mary 3 mL [F] 2.5 mg 3 mL, NEB, j3ziimshdmmqt CFC free 90 mcg/inh Inh Aer w/Adapt 8.5 gm [F] 180 microgram 2 puff(s), Inhalation, y1yphiepgodn 2 mg/mL preservative-free SOLN [F] 4 mg 2 mL, IV Push, p6uizzsirggfdri 2 mg/mL Inj [F] 4 mg 2 mL, IV Push, q6hr Problem list: All ProblemsImpaired skin integrity / SNOMED CT 11261764 / ConfirmedProblem added on documentation of skin impairments.At risk for falls / SNOMED CT 059550367 / PossibleProblem added when Risk for Falls Careplan was initiated.Smoker / IMO [id number] / ConfirmedAdded secondary to documentation in Social History.Resolved: Asthma / SNOMED CT 221458129 Histories Past Medical History: ResolvedAsthma ([id number]): Resolved. Family History: AsthmaMother Procedure history: Incision AND drainage (SNOMED CT 516005528) performed by Jose M Patten MD on 10/08/2017 at 27 Years.Comments:10/08/2017 19:32 - Magda THOMPSON, Julieta NI AND D AND IRRIGATION LEFT LOWER BACK ABCESS 10 X 15 CMIncision AND drainage (SNOMED CT 427305376).Comments:10/06/2017 06:12 - Philippe Cabezas RN right hand Social History Social & Psychosocial KpkfwjFiygnag99/26/2017 Risk Assessment: Denies Alcohol UseSubstance Abuse10/05/2017 Risk Assessment: Denies Substance EkvynZstsrkn60/26/2017 Risk Assessment: High Risk10/05/2017 Use: Current Every [...] Yury Delarosa MDTranscribed by: JENNIFFER Technologist: CHUCK OTDDThis document has an imageResult type: US Abdomen, LimitedResult date: October 07, 2017 18:20 ESTResult status: Auth (Verified)Result title: US Abdomen, LimitedPerformed by: Yury Delarosa MD on October 08, 2017 08:58 ESTVerified by: Yury Delarosa MD on October 08, 2017 08:58 [facility] info: [id number], [facility], Inpatient, 10/05/2017 - . Condition: Fair. [...] soon pending Wound Vac change today. Normal [facility] Comment on above: Result Comment: Elec tronically [...] (4)ceFAZolin 2 gram 50 mL, IV Piggyback, f9cnkdcphjkw sodium 100 mg Cap [F] 100 mg 1 cap(s), Oral, BIDnicotine 14 mg/24 hr Transderm ER Film [F] 14 mg 1 patch(es), TransDermal, DailySodium Chloride 0.9% 500 mL 500 mL, IVContinuous: (1)Lactated Ringers 1,000 mL 1,000 mL, IV, 20 mL/hrPRN: (6)acetaminophen 325 mg Tab UD [F] 650 mg 2 tab(s), Oral, a1eedbjhdgdae 0.083% Inh Mary 3 mL [F] 2.5 mg 3 mL, NEB, p2rxadndmjowc CFC free 90 mcg/inh Inh Aer w/Adapt 8.5 gm [F] 180 microgram 2 puff(s), Inhalation, h8uhicexgslok 30 mg/mL Inj 1 mL [F] 30 mg 1 mL, IV, y6hrcqpiqbbj 10 mg/mL preservative-free SOLN [F] 4 mg 0.4 mL, IV Push, g4qhfjqahogktze 2 mg/mL Inj [F] 4 mg 2 mL, IV Push, q6hr Problem list: All ProblemsImpaired skin integrity / SNOMED CT 26991062 / ConfirmedProblem added on documentation of skin impairments.Smoker / IMO [id number] / ConfirmedAdded secondary to documentation in Social History.Resolved: Asthma / SNOMED CT 059930509 Histories Past Medical History: ResolvedAsthma ([id number]): Resolved. Family History: AsthmaMother Procedure history: Incision AND drainage (SNOMED CT 972996336) performed by Jose M Patten MD on 10/08/2017 at 27 Years.Comments:10/08/2017 19:32 - Magda THOMPSON, Julieta IGLESIAS AND Musa AND IRRIGATION LEFT LOWER BACK ABCESS 10 X 15 CMIncision AND drainage (SNOMED CT 186152028).Comments:10/06/2017 06:12 - Philippe Cabezas RN right hand Social History Social & Psychosocial GeioyhIyxcqcz22/26/2017 Risk Assessment: Denies Alcohol UseSubstance Abuse10/05/2017 Risk Assessment: Denies Substance EijruBzqodqv84/ Risk Assessment: High Risk10/05/2017 Use: Current Every [...] 20:12) 89 (OCT 10 16:06)SpO2 97 (OCT 11:37) 96 (OCT 10 16:07) 97 (OCT 10 [...] 20:12) 89 (OCT 10 16:06)SpO2 97 (OCT 11:37) 96 (OCT 10 16:07) 97 (OCT 10 [...] on October 08, 2017 08:58 ESTEncounter info: [id number], [facility], Inpatient, 10/05/2017 - . Condition: Fair. [...] pending Wound Vac change on 10/12/17 Normal [facility] Comment on above: Result Comment: Elec tronically Signed By: Sushant DC, Juan Pablo\.br\Date and Time Signed: 10/11/17 12:43 EST Auto Diffon 10-10-2017 Basophils Auto #/vol (Bld) 0.1 E9/L Normal 0.0-0.2 [facility] Comment on above: Order Comment: Order Added by Discern Expert. Performed By: #### 1 6633025, 9573561, 16420750, 7241252, 78812516, 0002058, 9949416 ####[facility] [address] [place] [address] Basophils Auto #/vol (Bld) 0.9 % Normal 0.0-2.0 [facility] Comment on above: Order Comment: Order Added by Discern Expert. Performed By: #### 1 5481046, 3620819, 19115348, 8758112, 83172875, 9860295, 8114308 ####[facility] [address] [place] [address] Eosinophils 0.7 E9/L High 0.0-0.5 [facility] Comment on above: Order Comment: Order Added by Discern Expert. Performed By: #### 1 2059308, 9635820, 33988868, 9961905, 92837192, 7546669, 8392891 ####[address] [place] [address] Eosinophils/100 leukocytes 7.4 % Normal 0.0-8.0 [facility] Comment on above: Order Comment: Order Added by Discern Expert. Performed By: #### 1 8389164, 5899510, 86611863, 0656379, 44665249, 2355571, 3115621 ####[address] [place] [address] Lymphocytes 2.4 E9/L Normal 1.0-4.0 [facility] Comment on above: Order Comment: Order Added by Margo Expert. Performed By: #### 1 5240197, 1087030, 48887734, 6093798, 82711739, 9924723, 8811048 ####[address] [address] Lymphocytes/100 leukocytes 25.6 % Normal 14.0-50.0 [facility] Comment on above: Order Comment: Order Added by Margo Expert. Performed By: #### 1 4436000, 5222507, 55916733, 5978515, 17530153, 8556429, 2135734 ####[address] [place] [address] Monocytes 0.9 E9/L Normal 0.2-1.0 [facility] Comment on above: Order Comment: Order Added by Margo Expert. Performed By: #### 1 2363887, 9284360, 19053425, 8189644, 74183139, 6990496, 7238665 ####[address] [place] [address] Monocytes/100 leukocytes 9.9 % Normal 4.0-14.0 [facility] Comment on above: Order Comment: Order Added by Margo Expert. Performed By: #### 1 6708114, 1946477, 28341206, 0755088, 01864037, 0201622, 4186582 ####[facility] [address] [place] [address] Neutrophils 5.3 E9/L Normal 2.0-7.5 [facility] Comment on above: Order Comment: Order Added by Discern Expert. Performed By: #### 1 8006931, 1188207, 45030551, 8305424, 23272230, 6145257, 0219529 ####[facility] [address] [place] [address] Neutrophils/100 leukocytes 56.2 % Normal 36.0-75.0 [facility] Comment on above: Order Comment: Order Added by Discern Expert. Performed By: #### 1 5955934, 6634204, 53399395, 2701843, 11237394, 7526136, 8982266 ####[facility] [address] [place] [address] C [place] 10-10-2017 Wound Culture MicrobiologyPROCEDUR E: [...] SPerforming LocationsR1: This test was performed at: [facility], [address] [place] [address], [address] , [facility] Comment on above: Performed By: #### 1 6716673, 0576118, 84265564, 7816791, 84937396, 5306213, 1515723 ####[address] [place] [address] CBC w/ Auto Diffon 7 Erythrocyte distribution width Auto Ratio (RBC) 13.3 % Normal 10.9-14.2 [facility] Comment on above: Performed By: #### 1 2399364, 0034172, 36293862, 5242261, 56063107, 8349873, 7543986 ####[address] [place] [address] Erythrocytes (RBC) 3.4 E12/L Low 4.3-5.9 [facility] Comment on above: Performed By: #### 1 9945697, 6334684, 88425221, 3248795, 23281732, 8796792, 1463900 ####[address] [place] [address] Hematocrit (HCT) 31.1 % Low 37.7-49.0 [facility] Comment on above: Performed By: #### 1 0145962, 8531566, 82792800, 0373331, 26224038, 1535376, 3047904 ####[place] [address] Hemoglobin mass conc (Bld) 10.8 g/dL Low 13.5-17.5 [facility] Comment on above: Performed By: #### 1 3424282, 7713195, 55449409, 7479818, 14733212, 7148206, 6103510 ####[place] [address] MCH 31.9 pg Normal 27.0-34.0 [facility] Comment on above: Performed By: #### 1 3755559, 8168056, 97724462, 6038111, 07799697, 2796585, 8402901 ####[address] [place] [address] MCHC mass conc (RBC) 34.6 g/dL Normal 31.4-39.3 [facility] Comment on above: Performed By: #### 1 0550304, 6351373, 03133104, 0968738, 38348963, 1955210, 0411994 ####[place] [address] MCV 92.1 fL Normal 80.0-100.0 [facility] Comment on above: Performed By: #### 1 0434814, 2308390, 17138721, 6693868, 81637063, 4849291, 1253539 ####[facility] [address] [place] [address] Platelet mean volume (PMV) 6.8 fL Normal 6.4-10.8 [facility] Comment on above: Performed By: #### 1 7695783, 0844114, 55746898, 5769984, 53887581, 6557449, 6528074 ####[facility] [address] [place] [address] Platelets 497.0 E9/L Normal 150.0-500. 0 [facility] Comment on above: Performed By: #### 1 4400206, 4712761, 28534663, 9815989, 97944185, 5271115, 7736573 ####[facility] [address] [place] [address] WBC (Leukocytes) 9.4 E9/L Normal 4.0-11.0 [facility] Comment on above: Result Comment: Slid e reviewed by DK. Performed By: #### 1 2449072, 3628651, 38629050, 1308725, 78467638, 9643555, 6485763 ####[facility] [address] [place] [address] Consultation Noteon 10-10-20 17 Consultation Note HOSPITAL [...] anesthesia today.Jose M Patten MD, FACSaekDictated: 10/08/2017 #[id number]: 10/09/2017 #[id number]: Luis F Benavides D.O.Myra Middleton M.D.Jose M Patten MD, FACS [facility] Comment on above: Result Comment: Elec tronically Signed By: Sandor DC, Jose M Camilo\.br\Date and Time Signed: 10/10/17 16:08 EST Interdisciplinary Note - Brett e Manageron 10-10-2017 Interdisciplinary Note - Video Tape Duplicator Spoke to Dr. Canchola who anticipates pt. to stay till Wednesday. I spoke to pt. regarding [facility] and a home wound vac and he is agreable and understands the homebound status. Referral sent to resource center. [facility] Interdisciplinary Note - Nut ritionon 10-10-2017 [...] this time. PO encouraged. Nutrition POC implemented. Normal [facility] Operative Reporton 12-31-201 7 Operative Report Date of Surgery: 10/08/2017SURGEON: [...] I was able to contact the [facility] and they were able to remove the packing and place aWound VAC in the Recovery Room to further aid in healing of this largeabscess cavity. This was all tolerated well by the patient.Jose M Patten MD, FACSglsDictated: 10/08/2017 #[id number]: 10/09/2017 #[id number]: Myra Middleton M.D.Jos eM Patten MD, FACS [facility] Comment on above: Result Comment: Elec tronically Signed By: Sandor DC, Jose M Bishop.br\Date and Time Signed: 10/10/17 16:08 EST Progress [...] bad as it did on Wednesday. Normal [facility] Progress Note-Physicianon Progress Note-Physician Patient: WILLOW WILKES Age: 27 years Sex: Male : 1990 Associated Diagnoses: None Author: Sushant DC, [facility] Basic Information 27-year-old male with no significant [...] (4)ceFAZolin 2 gram 50 mL, IV Piggyback, e6oeesrqgtco sodium 100 mg Cap [F] 100 mg 1 cap(s), Oral, BIDnicotine 14 mg/24 hr Transderm ER Film [F] 14 mg 1 patch(es), TransDermal, DailySodium Chloride 0.9% 500 mL 500 mL, IVContinuous: (1)Lactated Ringers 1,000 mL 1,000 mL, IV, 75 mL/hrPRN: (6)acetaminophen 325 mg Tab UD [F] 650 mg 2 tab(s), Oral, u9katldekzlpa 0.083% Inh Mary 3 mL [F] 2.5 mg 3 mL, NEB, p8dgqlnusmseu CFC free 90 mcg/inh Inh Aer w/Adapt 8.5 gm [F] 180 microgram 2 puff(s), Inhalation, w7jlemzuiilba 30 mg/mL Inj 1 mL [F] 30 mg 1 mL, IV, b1egwcajgkzs 10 mg/mL preservative-free SOLN [F] 4 mg 0.4 mL, IV Push, n1dadpfzzxnoehi 2 mg/mL Inj [F] 4 mg 2 mL, IV Push, q6hr Problem list: All ProblemsImpaired skin integrity / SNOMED CT 87720684 / ConfirmedProblem added on documentation of skin impairments.Smoker / IMO 052098 / ConfirmedAdded secondary to documentation in Social History.Resolved: Asthma / SNOMED CT 706495877 Histories Past Medical History: ResolvedAsthma ([id number]): Resolved. Family History: AsthmaMother Procedure history: Incision AND drainage (SNOMED CT 706268497) performed by Jose M Patten MD on 10/08/2017 at 27 Years.Comments:10/08/2017 19:32 - Magda THOMPSON, Julieta NI AND D AND IRRIGATION LEFT LOWER BACK ABCESS 10 X 15 CMIncision AND drainage (SNOMED CT 215260419).Comments:10/06/2017 06:12 - Philippe Cabezas RN right hand Social History Social & Psychosocial ZwpoyiOmlvhnk93/26/2017 Risk Assessment: Denies Alcohol UseSubstance Abuse10/05/2017 Risk Assessment: Denies Substance JvrkmXrdamqm32/26/2017 Risk Assessment: High Risk10/05/2017 Use: Current Every Day Smoker Type: Cigarettes Tobacco use per day: 0.5. Objective VS/Measurements: Vitals Signs (last 24 hrs) Last Charted Minimum MaximumTemp 36.8 (OCT 10:) 36.5 (OCT 09 15:37) 36.8 (OCT 10:)Heart Rate 77 (OCT 10 07:00) 77 (OCT 10 07:00) 94 (OCT 09 19:30)Resp Rate 18 (OCT 10:00) 16 (OCT 09 17:13) 20 (OCT 10:)SBP H 147 (OCT 10:) 106 (OCT 09 19:29) H 147 (OCT 10:)DBP 63 (OCT 10:) L 59 (OCT 09 19:29) 72 (OCT 10:)MAP 91 (OCT 10:) 75 (OCT 09 19:) 91 (OCT 10:)SpO2 99 (OCT 10:) 96 (OCT 09 17:13) 99 (OCT 10:). Vitals Signs (last 24 hrs) Last Charted Minimum MaximumTemp 36.8 (OCT 10:) 36.5 (OCT 09 15:37) 36.8 (OCT 10:)Heart Rate 77 (OCT 10:00) 77 (OCT 10:) 94 (OCT 09 19:30)Resp Rate 18 (OCT 10:) 16 (OCT 09 17:13) 20 (OCT 10:)SBP H 147 (OCT 10:) 106 (OCT 09:29) H 147 (OCT 10:)DBP 63 (OCT 10:) L 59 (OCT 09 19:29) 72 (OCT 10:)MAP 91 (OCT 10:) 75 (OCT 09 19:29) 91 (OCT 10:00)SpO2 99 (OCT 10:) 96 (OCT 09 17:13) [...] Auto 56.2 % Lymph Auto 25.6 % [place] Auto 9.9 % Eos Auto 7.4 % Basophil Auto 0.9 % Neutro Absolute 5.3 E9/L Lymph Absolute 2.4 E9/L [place] Absolute 0.9 E9/L Eos Absolute 0.7 E9/L [...] on October 08, 2017 08:58 ESTVerified by: [place] Yury Bandar on October 08, 2017 08:58 [facility] info: [id number], [facility], Inpatient, 10/05/2017 - . Condition: Fair. [...] and Wound Vac change on 10/12/17 Normal [facility] Comment on above: Result Comment: Elec tronically Signed By: Sushant DC, Juan Pablo\.br\Date and Time Signed: 10/10/17 11:42 EST Auto Diffon 10-09-2017 Basophils Auto #/vol (Bld) 0.1 E9/L Normal 0.0-0.2 [facility] Comment on above: Order Comment: Order Added by Discern Expert. Performed By: #### 1 6335301, 8004511, 67156701, 8846738, 55096647, 9232870, 1362045 ####[facility] [address] [place] [address] Basophils Auto #/vol (Bld) 0.4 % Normal 0.0-2.0 [facility] Comment on above: Order Comment: Order Added by Discern Expert. Performed By: #### 1 1300727, 0694937, 50391102, 2941032, 85412807, 6193194, 4277169 ####[facility] [address] [place] [address] Eosinophils 0.1 E9/L Normal 0.0-0.5 [facility] Comment on above: Order Comment: Order Added by Discern Expert. Performed By: #### 1 8531405, 0077501, 63461050, 0611519, 38214029, 2657153, 9500501 ####[facility] [address] [place] [address] Eosinophils/100 leukocytes 0.8 % Normal 0.0-8.0 [facility] Comment on above: Order Comment: Order Added by Margo Expert. Performed By: #### 1 2707613, 5436576, 90350455, 4406880, 46991238, 7280568, 8956459 ####[facility] [address] [place] [address] Lymphocytes 1.3 E9/L Normal 1.0-4.0 [facility] Comment on above: Order Comment: Order Added by Margo Expert. Performed By: #### 1 8254014, 1121341, 24981526, 5976257, 09027833, 1236721, 9214917 ####[facility] [address] [place] [address] Lymphocytes/100 leukocytes 8.2 % Low 14.0-50.0 [facility] Comment on above: Order Comment: Order Added by Margo Expert. Performed By: #### 1 2722990, 4131203, 52782009, 4812783, 30288697, 1811558, 4368852 ####[facility] [address] [place] [address] Monocytes 1.2 E9/L High 0.2-1.0 [facility] Comment on above: Order Comment: Order Added by Discern Expert. Performed By: #### 1 4977003, 3517091, 38125456, 7009618, 38963101, 8058815, 9304934 ####[address] [place] [address] Monocytes/100 leukocytes 8.0 % Normal 4.0-14.0 [facility] Comment on above: Order Comment: Order Added by Discern Expert. Performed By: #### 1 5093328, 3654317, 38426897, 9346073, 57148843, 1304241, 7578274 ####[address] [place] [address] Neutrophils 12.7 E9/L High 2.0-7.5 [facility] Comment on above: Order Comment: Order Added by Margo Expert. Performed By: #### 1 0224406, 7209681, 46966706, 5281362, 72753552, 8366667, 4941100 ####[address] [place] [address] Neutrophils/100 leukocytes 82.6 % High 36.0-75.0 [facility] Comment on above: Order Comment: Order Added by Discern Expert. Performed By: #### 1 5965481, 1778051, 22201317, 1941130, 99130148, 1861906, 0403494 ####[address] [place] [address] CBC w/ Auto Diffon 7 Erythrocyte distribution width Auto Ratio (RBC) 13.2 % Normal 10.9-14.2 [facility] Comment on above: Performed By: #### 1 1958310, 9419362, 62221970, 4439981, 97322209, 1020118, 9343354 ####[address] [place] [address] Erythrocytes (RBC) 3.6 E12/L Low 4.3-5.9 [facility] Comment on above: Performed By: #### 1 3821029, 3506983, 71479775, 1339681, 20445234, 4193729, 7485872 ####[address] [place] [address] Hematocrit (HCT) 32.3 % Low 37.7-49.0 [facility] Comment on above: Performed By: #### 1 9137615, 9005533, 24808645, 9747619, 65605914, 8522243, 1093766 ####[address] [place] [address] Hemoglobin mass conc (Bld) 11.0 g/dL Low 13.5-17.5 [facility] Comment on above: Performed By: #### 1 7481836, 4972827, 76350599, 6847769, 28109322, 8715580, 1160750 ####[place] [address] MCH 31.0 pg Normal 27.0-34.0 [facility] Comment on above: Performed By: #### 1 5560887, 3826140, 81459387, 8014686, 74119426, 4064535, 5967378 ####[place] [address] MCHC mass conc (RBC) 34.1 g/dL Normal 31.4-39.3 [facility] Comment on above: Performed By: #### 1 1934739, 6006360, 68811914, 4121757, 70191604, 2692256, 8794258 ####[address] [address] MCV 91.0 fL Normal 80.0-100.0 [facility] Comment on above: Performed By: #### 1 7040986, 4662542, 65782621, 6982857, 06019602, 7911372, 4111711 ####[address] [place] [address] Platelet mean volume (PMV) 7.1 fL Normal 6.4-10.8 [facility] Comment on above: Performed By: #### 1 6817950, 7729372, 02467280, 0579375, 12888876, 7970646, 3316793 ####[facility] [address] [place] [address] Platelets 429.0 E9/L Normal 150.0-500. 0 [facility] Comment on above: Performed By: #### 1 5704099, 8551490, 14107580, 6234461, 77865284, 5349004, 1401621 ####[facility] [address] [place] [address] WBC (Leukocytes) 15.4 E9/L High 4.0-11.0 [facility] Comment on above: Result Comment: Slid e reviewed by AC. Performed By: #### 1 8239542, 9743062, 12724469, 8885511, 90752574, 3021487, 6398312 ####[facility] [address] [place] [address] Progress Note-Physicianon Progress Note-Physician Patient: WILLOW WILKES [...] mL 493 mg 0.99 EA, IV Piggyback, q93pdpwqyzzpb 14 mg/24 hr Transderm ER Film [F] 14 mg 1 patch(es), TransDermal, Dailypiperacillin-tazobactam 3 g-0.375 g 3.375 gram 1 EA, IV Piggyback, b3pzCuqxzmxiwe: (1)Lactated Ringers 1,000 mL 1,000 mL, IV, 75 mL/hrPRN: (6)acetaminophen 325 mg Tab UD [F] 650 mg 2 tab(s), Oral, q6ohgzozvdfjf 0.083% Inh Mary 3 mL [F] 2.5 mg 3 mL, NEB, o8hzlyfhejpxl CFC free 90 mcg/inh Inh Aer w/Adapt 8.5 gm [F] 180 microgram 2 puff(s), Inhalation, t4ypfxuvnggyj 30 mg/mL Inj 1 mL [F] 30 mg 1 mL, IV, h1zhvvaouagd 10 mg/mL preservative-free SOLN [F] 4 mg 0.4 mL, IV Push, p5ruunrxkmnlrev 2 mg/mL Inj [F] 4 mg 2 mL, IV Push, q6hr Problem list: All ProblemsImpaired skin integrity / SNOMED CT 48244269 / ConfirmedProblem added on documentation of skin impairments.Smoker / IMO 439200 / ConfirmedAdded secondary to documentation in Social History.Resolved: Asthma / SNOMED CT 029174631 Histories Past Medical History: ResolvedAsthma ([id number]): Resolved. Family History: AsthmaMother Procedure history: Incision AND drainage (SNOMED CT 631195517) performed by Jose M Patten MD on 10/08/2017 at 27 Years.Comments:10/08/2017 19:32 - Magda THOMPSON, Julieta IGLESIAS AND D AND IRRIGATION LEFT LOWER BACK ABCESS 10 X 15 CMIncision AND drainage (SNOMED CT 775553673).Comments:10/06/2017 06:12 - Philippe Cabezas RN right hand Social History Social & Psychosocial FnzhgaWyexziy65/26/2017 Risk Assessment: Denies Alcohol UseSubstance Abuse10/05/2017 Risk Assessment: Denies Substance NooweNqpqfoc39/26/2017 Risk Assessment: High Risk10/05/2017 Use: Current Every [...] [birth year] (OCT 08 15:00)MAP 80 (OCT 09 07:) 80 (OCT 09 07:33) 94 (OCT 08 11:27)SpO2 98 (OCT 09:34) 90 (OCT 08 15:40) 100 (OCT 08:30). Vitals Signs (last 24 hrs) Last Charted Minimum MaximumTemp 36.5 (OCT 09:33) 35.8 (OCT 09 05:00) 37.3 (OCT 08 11:27)Heart Rate 84 (OCT 09 07:34) 84 (OCT 09 07:34) 114 (OCT 08 14:35)Resp Rate 18 (OCT 09:34) 1 (OCT 08 14:20) 41 (OCT 08 [...] % HI Lymph Auto 8.2 % LOW Limestone Auto 8.0 % Eos Auto 0.8 % Basophil Auto 0.4 % Neutro Absolute 12.7 E9/L HI Lymph Absolute 1.3 E9/L Limestone Absolute 1.2 E9/L HI Eos Absolute 0.1 [...] Delarosa MD on October 08, 2017 08:58 [facility] info: [id number], [facility], Inpatient, 10/05/2017 - . Condition: Fair. [...] result and Wound Vac change on 10/12/17 [facility] Comment on above: Result Comment: Elec tronically Signed By: Sushatn DC, Juan Pablo\.br\Date and Time Signed: 10/09/17 11:02 EST Progress Note-Physician Patient: WILLOW WILKES Age: 27 years Sex: Male : 1990 Associated Diagnoses: None Author: Sandor DC, Jose M Camilo Basic Information SurgeryPOD#1Pain controlled with IV MS.Dressing intact. Reinforced overnight per nursing due to significant bleeding. Less bloody drainage this am.A/P: S/P I&D of large back abscess - Wound Vac in place. Wound Clinic staff to change 1/2.Continue IV ATB. Wound care per Wound Clinic.Will follow as needed. Normal [facility] Comment on above: Result Comment: Elec tronically Signed By: Sandor DC, Jose M Bishop.br\Date and Time Signed: 10/09/17 07:53 EST Vanco Troughon 10-09-2017 VANCOMYCIN <4 Low 10-20 [facility] Comment on above: Result Comment: Resu lts verified by dilution. Performed By: #### 1 4280447, 3532642, 19838829, 8916657, 71133528, 1790620, 6484769 ####[facility] [address] [place] [address] Dino 10-08-2017 Alanine aminotransferase (ALT) 63 Int._Unit/L High 6-46 [facility] Comment on above: Performed By: #### 1 6410822, 4249168, 19466128, 2000878, 27004418, 6902288, 8486395 ####[facility] [address] [place] [address] Navid 10-08-2017 Aspartate aminotransferase (AST) 37 Int._Unit/L Normal 5-43 [facility] Comment on above: Performed By: #### 1 2294768, 6714207, 13711991, 3841507, 22469231, 7049256, 7443597 ####[facility] [address] [place] [address] Auto Diffon 10-08-2017 Basophils Auto #/vol (Bld) 0.1 E9/L Normal 0.0-0.2 [facility] Comment on above: Order Comment: Order added by Discern Expert. Performed By: #### 1 3754400, 8989147, 93336720, 7512986, 93952770, 0568321, 3339132 ####[facility] [address] [place] [address] Basophils Auto #/vol (Bld) 0.5 % Normal 0.0-2.0 [facility] Comment on above: Order Comment: Order added by Discern Expert. Performed By: #### 1 5178253, 5403506, 98239835, 5629058, 46697301, 7526023, 8403999 ####[facility] [address] [place] [address] Eosinophils 0.9 E9/L High 0.0-0.5 [facility] Comment on above: Order Comment: Order added by Discern Expert. Performed By: #### 1 7903179, 7947876, 30151706, 3051802, 54497443, 4552264, 9385205 ####[facility] [address] [place] [address] Eosinophils/100 leukocytes 5.6 % Normal 0.0-8.0 [facility] Comment on above: Order Comment: Order added by Margo Expert. Performed By: #### 1 3644066, 7709791, 06632474, 9431191, 50404715, 6624432, 2972181 ####[address] [place] [address] Lymphocytes 1.5 E9/L Normal 1.0-4.0 [facility] Comment on above: Order Comment: Order added by Margo Expert. Performed By: #### 1 0834705, 1902057, 44158339, 8440161, 90660396, 9631426, 4787703 ####[address] [place] [address] Lymphocytes/100 leukocytes 9.3 % Low 14.0-50.0 [facility] Comment on above: Order Comment: Order added by Margo Expert. Performed By: #### 1 8912109, 3803109, 72852045, 8545543, 48488833, 4188037, 0599526 ####[address] [place] [address] Monocytes 1.9 E9/L High 0.2-1.0 [facility] Comment on above: Order Comment: Order added by Margo Expert. Performed By: #### 1 9152366, 4373478, 59703102, 0517823, 24472295, 4549758, 4045200 ####[facility] [address] [place] [address] Monocytes/100 leukocytes 12.0 % Normal 4.0-14.0 [facility] Comment on above: Order Comment: Order added by Discern Expert. Performed By: #### 1 2829570, 7845905, 63219361, 2155691, 51437978, 9484574, 0753384 ####[facility] [address] [place] [address] Neutrophils 11.5 E9/L High 2.0-7.5 [facility] Comment on above: Order Comment: Order added by Discern Expert. Performed By: #### 1 1873242, 8295154, 98933187, 1329754, 05636913, 8171220, 7064146 ####[facility] [address] [place] [address] Neutrophils/100 leukocytes 72.6 % Normal 36.0-75.0 [facility] Comment on above: Order Comment: Order added by Discern Expert. Performed By: #### 1 2311464, 8770236, 56116515, 9092152, 91234570, 6237626, 2733679 ####[facility] [address] [place] [address] BMPon 10-08-2017 Anion gap 9 mmol/L Normal 6-16 [facility] Comment on above: Performed By: #### 1 3775152, 5040430, 67293740, 2888967, 36434479, 9182529, 5835578 ####[facility] [address] [place] [address] BUN/Creatinine Ratio 9 No Units Low 10-20 [facility] Comment on above: Performed By: #### 1 5088925, 2639603, 34846852, 1445186, 53302480, 7655846, 4601821 ####[facility] [address] [place] [address] Calcium 8.2 mg/dL Low 8.9-11.1 [facility] Comment on above: Performed By: #### 1 4427125, 9510130, 00124518, 1505050, 52751931, 2025557, 3904613 ####[facility] [address] [place] [address] Chloride 103 mmol/L Normal 101-111 [facility] Comment on above: Performed By: #### 1 5950323, 0190696, 35846076, 2308314, 20613646, 0208540, 6932035 ####[facility] [address] [place] [address] CO2 28 mmol/L Normal 21-31 [facility] Comment on above: Performed By: #### 1 8990914, 5593256, 28293980, 7712433, 80380532, 3934743, 3464008 ####[facility] [address] [place] [address] Creatinine 0.8 mg/dL Normal 0.5-1.3 [facility] Comment on above: Performed By: #### 1 8736036, 8833864, 08830691, 1432779, 04465395, 5957828, 2016223 ####[facility] [address] [place] [address] Glucose mass conc 98 mg/dL Normal 55-199 [facility] Comment on above: Result Comment: If t his glucose result represents a fasting glucose, interpretation should refer to the following reference range: 55-99 mg/dL Performed By: #### 1 1038398, 8446111, 34114364, 4784921, 88195044, 8415308, 8783789 ####[facility] [address] [place] [address] Potassium molar conc 4.0 mmol/L Normal 3.5-5.3 [facility] Comment on above: Performed By: #### 1 4814836, 3678847, 22422933, 1426423, 63712566, 5914331, 7520146 ####[facility] [address] [place] [address] Sodium 136 mmol/L Normal 135-145 [facility] Comment on above: Performed By: #### 1 7798506, 5443622, 29088685, 9734297, 52731049, 5760899, 5409857 ####[facility] [address] [place] [address] Urea nitrogen 7 mg/dL Normal 5-21 [facility] Comment on above: Performed By: #### 1 5541219, 1939136, 93019827, 6488961, 54674519, 2128408, 4344327 ####[facility] [address] [place] [address] CBC w/ Auto Diffon Erythrocyte distribution width Auto Ratio (RBC) 13.4 % Normal 10.9-14.2 [facility] Comment on above: Performed By: #### 1 7948858, 2646612, 91510785, 9425669, 60478087, 3281742, 1539292 ####[address] [place] [address] Erythrocytes (RBC) 3.7 E12/L Low 4.3-5.9 [facility] Comment on above: Performed By: #### 1 2341586, 5253869, 37110997, 9328983, 42890807, 2213985, 5876807 ####[address] [place] [address] Hematocrit (HCT) 34.5 % Low 37.7-49.0 [facility] Comment on above: Performed By: #### 1 8836170, 4831937, 63729037, 5459799, 88401714, 6462971, 8293701 ####[facility] [address] [place] [address] Hemoglobin mass conc (Bld) 12.1 g/dL Low 13.5-17.5 [facility] Comment on above: Performed By: #### 1 0194199, 5583878, 80022231, 2323930, 99223178, 4469791, 6143275 ####[address] [place] [address] MCH 32.3 pg Normal 27.0-34.0 [facility] Comment on above: Performed By: #### 1 6984482, 1161787, 64175284, 8334690, 64512901, 1638420, 6683812 ####[address] [address] MCHC mass conc (RBC) 34.9 g/dL Normal 31.4-39.3 [facility] Comment on above: Performed By: #### 1 8829185, 3036018, 32367236, 0953067, 08751106, 1232829, 2175533 ####[address] MCV 92.4 fL Normal 80.0-100.0 [facility] Comment on above: Performed By: #### 1 4656407, 8985697, 71679368, 9278832, 29509170, 4725883, 3257226 ####[address] Platelet mean volume (PMV) 6.6 fL Normal 6.4-10.8 [facility] Comment on above: Performed By: #### 1 0063576, 9232318, 52090511, 8217772, 22079218, 8550384, 5398594 ####[address] Platelets 342.0 E9/L Normal 150.0-500. 0 [facility] Comment on above: Performed By: #### 1 0890385, 8303651, 00431228, 5137069, 98748409, 8116495, 8477977 ####[address] WBC (Leukocytes) 15.9 E9/L High 4.0-11.0 [facility] Comment on above: Performed By: #### 1 0622875, 6795299, 48527405, 7202032, 86333707, 7687356, 7056955 ####[facility] [address] [place] [address] Consultation Noteon 10-08-20 Consultation Note Patient: Alexx WILKES Age: 27 years Sex: Male : 1990 Associated Diagnoses: None Author: Donald Cyr M.D Chief Complaint 10/05/2017 18:24 EST pain in mid back to hip. ongoing X2 weeks. was seen in [place] but was told it was just muscle spasms. xray and urin were obtained in [place]. History of Present Illness Patient with back [...] g 3.375 gram 1 EA, IV Piggyback, r6xrufabthyqso + Sodium Chloride 0.9% 500 mL 2 gram 2 EA, IV Piggyback, o38ypGtinledpan: (2)Lactated Ringers 1,000 mL 1,000 mL, IV, 125 mL/hrSodium Chloride 0.9% 2,190 mL 2,190 mL, IV, 999 mL/hrPRN: (6)acetaminophen 325 mg Tab UD [F] 650 mg 2 tab(s), Oral, q4uexjaxsshqs 0.083% Inh Mary 3 mL [F] 2.5 mg 3 mL, NEB, o6kjhzoenjqyj CFC free 90 mcg/inh Inh Aer w/Adapt 8.5 gm [F] 180 microgram 2 puff(s), Inhalation, m6zhneatvvnde 30 mg/mL Inj 1 mL [F] 30 mg 1 mL, IV, z0ktpxykggbq 10 mg/mL preservative-free SOLN [F] 4 mg 0.4 mL, IV Push, z2wnzovoaiaynsq 2 mg/mL Inj [F] 4 mg 2 mL, IV Push, q6hr Problem list: All ProblemsImpaired skin integrity / SNOMED CT 63158528 / ConfirmedProblem added on documentation of skin impairments.Smoker / IMO [id number] / ConfirmedAdded secondary to documentation in Social History. Histories Past Medical History: ResolvedAsthma ([id number]): Resolved. Family History: AsthmaMother Procedure history: Incision AND drainage (162479263).Comments:10/06/2017 06:12 - Philippe Cabezas RN right hand Physical Examination Vital Signs 10/08/2017 08:26 EST Heart Rate Monitored 92 bpm 10/08/2017 08:25 EST Respiratory Rate 20 br/min 10/08/2017 08:25 EST Temperature Oral 36.9 DegC 10/08/2017 08:25 EST Systolic Blood Pressure 103 mmHg Diastolic Blood Pressure 62 mmHg 10/07/2017 23:26 EST Temperature Oral 38.6 DegC DC 10/07/2017 20:20 EST Temperature Oral 38.2 DegC DC 10/07/2017 15:00 EST Temperature Oral 36.8 DegC 10/07/2017 11:26 EST Temperature Oral 36.7 DegC 10/07/2017 07:22 EST Temperature Oral 37.2 DegC 10/07/2017 00:57 EST Temperature Oral 37.9 DegC HI General: Alert and oriented, Mild distress. Eye: [...] Results 10/08/2017 06:19 EST WBC 15.9 E9/L DC Hgb 12.1 gm/dL LOW Platelet 342.0 E9/L BUN 7 mg/dL Creatinine 0.8 mg/dL 10/07/2017 07:43 EST WBC 19.7 E9/L DC 10/06/2017 03:49 EST UA Spec Desc Clean [...] to see patient. Already consulted. . Normal [facility] Comment on above: Result Comment: Elec tronically Signed By: Donald Cyr M.D\Date and Time Signed: 10/08/17 11:13 EST ED [...] hip. ongoing X2 weeks. was seen in [place] but was told it was just muscle spasms. xray and urin were obtained in [place]. . History of Present Illness The patient [...] The patient stated he was seen at [place] on and he was diagnosed with muscle strain. The patient denies any IV drug abuse or any other associated symptoms. Review of Systems Additional review of systems information: All other systems reviewed and otherwise negative. Health Status Allergies: Allergic Reactions (Selected)No Known Allergies. Past Medical/ Family/ Social History [id number].. Surgical history: No active procedure history [...] E9/L HI Lymph Abs Man 1.0 E9/L Limestone Abs Man 2.6 E9/L HI Eos Abs [...] by teleradiology shows extensive subcutaneous soft tissue edema/tombstone setter was change throughout the back and flank [...] and Plan Diagnosis Cellulitis of lower back (YJX28-II L03.312, Discharge, Medical) Phlegmonous cellulitis (WHG89-TS L02.91, Discharge, Medical) Hyponatremia (CGX82-BV E87.1, Discharge, Medical) Elevated liver enzymes (NWJ09-EP R74.8, Discharge, Medical) Plan Condition: Improved, Stable. Disposition: Admit time 10/06/17 01:35:00, Admit to Inpatient Telemetry Unit, Luis F Benavides DO Counseled: Patient, Family, Regarding diagnosis, Regarding diagnostic results, Regarding treatment plan. [facility] Comment on above: Result Comment: Elec tronically Signed By: Melissa Mcfadden, Анна Nicole\.br\Date and Time Signed: 10/08/17 09:28 EST Interdisciplinary Note - Brett e Manageron 10-08-2017 Interdisciplinary Note - Video Tape Duplicator Rounding with Dr. Canchola, Marisa [facility], [facility], Marcelino RN. Whiteboard updated. No family present. [...] of anticipated dc in a few days. [facility] Interdisciplinary Note - Soc ial Workeron 10-08-2017 Interdisciplinary Note - Utility Worker Production Consult received late this afternoon to order wound vac. SW spoke to [facility] who will be following this weekend about need for wound vac as this SW is not familiar with how to order this as this is usually completed by wound care. SW will remain available. [facility] Main OR PACU I Recordon 09-11 Main OR PACU I Record PACU Phase I Document Type FT Summary Primary Physician: Jose M Patten MD Finalized Date/Time: 10/08/17 17:18:48 Pt. Name: WILLOW WILKES /Sex: 1990 Male Med Rec #: [id number] Physician: Анна Torres M.D. Financial #: [id number] Pt. Type: I Room/Bed: [place] [address] Admit/Disch: 10/05/17 17:35:00 - Institution: Case Times [...] I Outcomes Met? Yes Last Modified By: Aixa Wolfe RN 10/08/17 17:18:04 Post-Care Text: The patient demonstrates [...] By: Aixa Wolfe RN 10/08/17 17:18 Normal [facility] Progress Note-Physicianon Progress Note-Physician Patient: WILLOW WILKES [...] be discharged from PACU when criteria met. Normal [facility] Comment on above: Result Comment: Elec tronically [...] mL 493 mg 0.99 EA, IV Piggyback, b21indzrrqafrvswv-xuojpsztoz 3 g-0.375 g 3.375 gram 1 EA, IV Piggyback, v8wmNchgotjcei: (1)Lactated Ringers 1,000 mL 1,000 mL, IV, 125 mL/hrPRN: (6)acetaminophen 325 mg Tab UD [F] 650 mg 2 tab(s), Oral, m4uguklqxdbmv 0.083% Inh Mary 3 mL [F] 2.5 mg 3 mL, NEB, z0olmivhtztya CFC free 90 mcg/inh Inh Aer w/Adapt 8.5 gm [F] 180 microgram 2 puff(s), Inhalation, g4vnazdxzmdhi 30 mg/mL Inj 1 mL [F] 30 mg 1 mL, IV, u7albwqgywud 10 mg/mL preservative-free SOLN [F] 4 mg 0.4 mL, IV Push, i3hykhxspvzneik 2 mg/mL Inj [F] 4 mg 2 mL, IV Push, q6hr Problem list: All ProblemsImpaired skin integrity / SNOMED CT 16224450 / ConfirmedProblem added on documentation of skin impairments.Smoker / IMO [id number] / ConfirmedAdded secondary to documentation in Social History.Resolved: Asthma / SNOMED CT 641499554, Active Problems (2)Impaired skin integrity Smoker Histories Past Medical History: ResolvedAsthma ([id number]): Resolved. Family History: AsthmaMother Procedure history: Incision AND drainage (451288932).Comments:10/06/2017 06:12 - Philippe Cabezas RN right hand Social History Social & Psychosocial EcvtwjRxmwwxa53/26/2017 Risk Assessment: Denies Alcohol UseSubstance Abuse10/05/2017 Risk Assessment: Denies Substance WntneDgfaueb52/26/2017 Risk Assessment: High Risk10/05/2017 Use: Current Every [...] (OCT 07 15:00)SBP H 141 (OCT 08 11:27) 103 (OCT 08 08:25) H 144 (OCT [...] are non-labored. Cardiovascular: Regular rhythm. Integumentary: Warm, Nile. Neurologic: Alert, Oriented. Review / Management Results review: Lab results 10/08/2017 06:19 EST WBC 15.9 E9/L HI RBC 3.7 E12/L LOW Hgb 12.1 gm/dL LOW Hct 34.5 % LOW MCV 92.4 fL MCH 32.3 pg MCHC 34.9 gm/dL RDW 13.4 % Platelet 342.0 E9/L MPV 6.6 fL Neutro Auto 72.6 % Lymph Auto 9.3 % LOW Limestone Auto 12.0 % Eos Auto 5.6 % Basophil Auto 0.5 % Neutro Absolute 11.5 E9/L HI Lymph Absolute 1.5 E9/L Limestone Absolute 1.9 E9/L HI Eos Absolute 0.9 [...] E9/L HI Lymph Abs Man 2.6 E9/L Limestone Abs Man 1.4 E9/L HI Eos Abs [...] ECG interpretation: Reviewed ECG.. Condition: Stable. Plan [place] [employer]hesi[employer] (ASA) physical status classification: Class II. Anesthetic Preoperative Plan Anesthesia: General. . Anesthetic plan, risks, benefits, and alternatives discussed with the patient and/or family. Patient verbalized understanding. Risks, benefits, alternatives discussed. Questions answered. . Normal [facility] Comment on above: Result Comment: Elec tronically [...] mL 493 mg 0.99 EA, IV Piggyback, s96zpliijveahrvaa-xvgzpeleot 3 g-0.375 g 3.375 gram 1 EA, IV Piggyback, a9agAobffjgrtt: (2)Lactated Ringers 1,000 mL 1,000 mL, IV, 125 mL/hrSodium Chloride 0.9% 2,190 mL 2,190 mL, IV, 999 mL/hrPRN: (6)acetaminophen 325 mg Tab UD [F] 650 mg 2 tab(s), Oral, l8rppksrnkfgy 0.083% Inh Mary 3 mL [F] 2.5 mg 3 mL, NEB, q4itxowihmqqt CFC free 90 mcg/inh Inh Aer w/Adapt 8.5 gm [F] 180 microgram 2 puff(s), Inhalation, p1xnsrbgzjnfm 30 mg/mL Inj 1 mL [F] 30 mg 1 mL, IV, d5nylrcxculx 10 mg/mL preservative-free SOLN [F] 4 mg 0.4 mL, IV Push, q8mpgjfwzkisxwv 2 mg/mL Inj [F] 4 mg 2 mL, IV Push, q6hr Problem list: All ProblemsImpaired skin integrity / SNOMED CT 06923716 / ConfirmedProblem added on documentation of skin impairments.Smoker / IMO 067526 / ConfirmedAdded secondary to documentation in Social History. Histories Past Medical History: ResolvedAsthma ([id number]): Resolved. Family History: AsthmaMother Procedure history: Incision AND drainage (SNOMED CT 502740300).Comments:10/06/2017 06:12 - Philippe Cabezas RN right hand Social History Social & Psychosocial LzjjsdYdckndi17/26/2017 Risk Assessment: Denies Alcohol UseSubstance Abuse10/05/2017 Risk Assessment: Denies Substance OdascWhutepl14/26/2017 Risk Assessment: High Risk10/05/2017 Use: Current Every [...] 69 (OCT 07 23:20) 94 (OCT 08 11:)SpO2 95 (OCT 08:) 95 (OCT 07 20:20) 97 (OCT 08 [...] 72.6 % Lymph Auto 9.3 % LOW Limestone Auto 12.0 % Eos Auto 5.6 % Basophil Auto 0.5 % Neutro Absolute 11.5 E9/L HI Lymph Absolute 1.5 E9/L Limestone Absolute 1.9 E9/L HI Eos Absolute 0.9 [...] Delarosa MD on October 08, 2017 08:58 [facility] info: [id number], Jin Ariel, Inpatient, 10/05/2017 - . Condition: [...] D and deep tissue culture result. Normal [facility] Comment on above: Result Comment: Elec tronically [...] MD Transcribed by: JENNIFFER Technologist: BRIT Normal [facility] eGFRon 10-08-2017 eGFR (black) mL/min/{1.73_m2} Normal >=59 [facility] Comment on above: Order Comment: Order added by Discern Expert. Result Comment: eGFR is race adjusted. AA=. Performed By: #### 1 9979402, 0744484, 70565016, 8499004, 39536390, 7987730, 3988924 ####[facility] [address] [place] [address] eGFR (non-black) mL/min/{1.73_m2} Normal >=59 [facility] Comment on above: Order Comment: Order added by Discern Expert. 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 Kidney failure is indicated at less than 15 mL/min/1.73m2. Performed By: #### 1 6142216, 0262676, 65759240, 9378172, 78031117, 5964151, 7285245 ####[address] [place] [address] .Manual Abson 10-07-2017 BASOPHILS/LEUKOCYT ES:NFR.DF:PT:BLD:Q N:MANUAL COUNT 0.0 E9/L Normal 0.0-0.2 [facility] Comment on above: Performed By: #### 1 9501469, 3431650, 87901904, 5689185, 22175471, 1268725, 9889863 ####[facility] [address] [place] [address] EOSINOPHILS/LEUKOC YTES:NFR.DF:PT:BLD :QN:MANUAL COUNT 1.0 E9/L High 0.0-0.5 [facility] Comment on above: Performed By: #### 1 2161378, 6450935, 77135089, 5756773, 42884176, 2784652, 1849911 ####[facility] [address] [place] [address] LYMPHOCYTES/LEUKOC YTES:NFR.DF:PT:BLD :QN:MANUAL COUNT 2.6 E9/L Normal 1.0-4.0 [facility] Comment on above: Performed By: #### 1 3656432, 9798317, 51936252, 2944563, 91785503, 5956914, 0754921 ####[address] [place] [address] MONOCYTES/LEUKOCYT ES:NFR.DF:PT:BLD:Q N:MANUAL COUNT 1.4 E9/L High 0.2-1.0 [facility] Comment on above: Performed By: #### 1 8268458, 6223917, 51660230, 7061747, 43559158, 4705420, 2524372 ####[facility] [address] [place] [address] Neutrophils 12.4 E9/L High 2.0-7.5 [facility] Comment on above: Performed By: #### 1 4504151, 4899115, 24991710, 3473132, 14062287, 4917300, 4039060 ####[facility] [address] [place] [address] Dino 10-07-2017 Alanine aminotransferase (ALT) 65 Int._Unit/L High 6-46 [facility] Comment on above: Performed By: #### 1 7323352, 2891414, 70313374, 9822453, 29837385, 6901081, 6072263 ####[facility] [address] [place] [address] Navid 10-07-2017 Aspartate aminotransferase (AST) 45 Int._Unit/L High 5-43 [facility] Comment on above: Performed By: #### 1 3606925, 9542534, 58048219, 4683150, 95943074, 0562492, 3440118 ####[facility] [address] [place] [address] Alk Phoson 10-07-2017 Alkaline phosphatase (ALP) 185 Int._Unit/L High 21-98 [facility] Comment on above: Performed By: #### 1 4313076, 7558700, 81543517, 5435428, 72792824, 3917636, 7572465 ####[facility] [address] [place] [address] BMPon 10-07-2017 Anion gap 10 mmol/L Normal 6-16 [facility] Comment on above: Order Comment: to be drawn all together at 7:30-8:00 per nurse Performed By: #### 1 1705516, 1088329, 77380228, 0293105, 69626730, 4500551, 3229573 ####[facility] [address] [place] [address] BUN/Creatinine Ratio 10 No Units Normal 10-20 [facility] Comment on above: Order Comment: to be drawn all together at 7:30-8:00 per nurse Performed By: #### 1 8199384, 3570197, 20421687, 1547442, 07056108, 5176845, 9136962 ####[facility] [address] [place] [address] Calcium 7.9 mg/dL Low 8.9-11.1 [facility] Comment on above: Order Comment: to be drawn all together at 7:30-8:00 per nurse Performed By: #### 1 4139954, 1288502, 82371209, 0232253, 29117417, 8107516, 7144584 ####[facility] [address] [place] [address] Chloride 102 mmol/L Normal 101-111 [facility] Comment on above: Order Comment: to be drawn all together at 7:30-8:00 per nurse Performed By: #### 1 8479640, 7552694, 85253033, 4763678, 72242080, 6140245, 9195289 ####[facility] [address] [place] [address] CO2 25 mmol/L Normal 21-31 [facility] Comment on above: Order Comment: to be drawn all together at 7:30-8:00 per nurse Performed By: #### 1 2075556, 8334945, 85259611, 3740244, 58077818, 5380717, 6684302 ####[facility] [address] [place] [address] Creatinine 0.8 mg/dL Normal 0.5-1.3 [facility] Comment on above: Order Comment: to be drawn all together at 7:30-8:00 per nurse Performed By: #### 1 2622904, 4213524, 32679906, 4006771, 73059808, 1521707, 6146476 ####[facility] [address] [place] [address] Glucose mass conc 94 mg/dL Normal 55-199 [facility] Comment on above: Order Comment: to be drawn all together at 7:30-8:00 per nurse Result Comment: If t his glucose result represents a fasting glucose, interpretation should refer to the following reference range: 55-99 mg/dL Performed By: #### 1 0822395, 9800686, 35341893, 4840930, 31883439, 2737384, 9794200 ####[facility] [address] [place] [address] Potassium molar conc 3.5 mmol/L Normal 3.5-5.3 [facility] Comment on above: Order Comment: to be drawn all together at 7:30-8:00 per nurse Performed By: #### 1 7037954, 5000530, 87490313, 3174240, 18620856, 0025502, 8247796 ####[facility] [address] [place] [address] Sodium 133 mmol/L Low 135-145 [facility] Comment on above: Order Comment: to be drawn all together at 7:30-8:00 per nurse Performed By: #### 1 2288044, 7146839, 27701518, 6224981, 47497667, 1579905, 6880190 ####[facility] [address] [place] [address] Urea nitrogen 8 mg/dL Normal 5-21 [facility] Comment on above: Order Comment: to be drawn all together at 7:30-8:00 per nurse Performed By: #### 1 0534105, 0675318, 44573124, 1994622, 37527005, 7302006, 0497530 ####[facility] [address] [place] [address] CBC w/ Auto Diffon 7 Erythrocyte distribution width Auto Ratio (RBC) 13.3 % Normal 10.9-14.2 [facility] Comment on above: Performed By: #### 1 6013073, 9168917, 48388915, 8716852, 99137662, 4252991, 1688403 ####[facility] [address] [place] [address] Erythrocytes (RBC) 3.7 E12/L Low 4.3-5.9 [facility] Comment on above: Performed By: #### 1 9599777, 3895308, 89025119, 1609711, 83225169, 0000517, 6846944 ####[address] [place] [address] Hematocrit (HCT) 34.2 % Low 37.7-49.0 [facility] Comment on above: Performed By: #### 1 1219567, 2872269, 57014820, 2021871, 72849438, 0919979, 8029645 ####[address] [place] 2[address]757 Hemoglobin mass conc (Bld) 11.5 g/dL Low 13.5-17.5 [facility] Comment on above: Performed By: #### 1 8416879, 9027163, 48081987, 4686470, 93113368, 6209771, 4495168 ####[address] [place] 2329757 MCH 31.0 pg Normal 27.0-34.0 [facility] Comment on above: Performed By: #### 1 5603338, 7369132, 34587098, 2569417, 84026241, 6571440, 3603349 ####[address] [place] [address]329757 MCHC mass conc (RBC) 33.7 g/dL Normal 31.4-39.3 [facility] Comment on above: Performed By: #### 1 2026668, 5632841, 88906749, 1850181, 16293687, 9379674, 4444913 ####[address] [place] [address] MCV 92.2 fL Normal 80.0-100.0 [facility] Comment on above: Performed By: #### 1 6248396, 8812385, 28437910, 9466952, 77663006, 2870881, 0501421 ####[address] [address] Platelet mean volume (PMV) 7.0 fL Normal 6.4-10.8 [facility] Comment on above: Performed By: #### 1 5301858, 8686377, 81104755, 5591877, 72757055, 7481814, 3619516 ####[address] [address] Platelets 323.0 E9/L Normal 150.0-500. 0 [facility] Comment on above: Performed By: #### 1 4428530, 3350021, 69066181, 1505495, 67850383, 1553941, 0456319 ####[address] [address] WBC (Leukocytes) 19.7 E9/L High 4.0-11.0 [facility] Comment on above: Performed By: #### 1 0681624, 5293173, 55484522, 4964369, 54244373, 5617648, 0701920 ####[address] [address] Coding Queryon 10-07-2017 Coding Query -From: Cayetano [...] answer is desired or expected. Thank you![facility] 6396 From: Jesse Davidson DO To: Cayetano THOMPSON, Yissel Portillo; Sent: 10/07/2017 17:43:37 ESTSubject: RE: Coding Query sepsis is supported by the high WBC and the elevated HR in addition to fever. thank you. Normal [facility] Interdisciplinary Note - Brett e Manageron 10-07-2017 Interdisciplinary Note - Video Tape Duplicator Rounding with Dr. Davidson, Marisa [facility], [facility], Maryann RN. Whiteboard updated. No family present. Dr. Cyr to see tomorrow. Pt. in isolation. Pt. aware of plan to stay today and Dr. Cyr to see tomorrow. Normal [facility] Manual Diffon 10-07-2017 BASOPHILS:NCNC:PT: BLD:QN:MANUAL COUNT 0 % Normal 0-2 [facility] Comment on above: Order Comment: Order Added by Discern Expert. Performed By: #### 1 4809032, 0916374, 84286743, 8645414, 65873142, 3276052, 2069749 ####[facility] [address] [place] [address] Blood morphology Normal Normal [facility] Comment on above: Order Comment: Order Added by Discern Expert. Performed By: #### 1 7411411, 6257793, 83082793, 3931573, 92692079, 6548092, 9207780 ####[facility] [address] [place] [address] DOHLE BODY:PRTHR:PT:BLD: ORD:MICROSCOPY.LIG HT Present Normal [facility] Comment on above: Order Comment: Order Added by Discern Expert. Performed By: #### 1 7077767, 3455531, 17279681, 0421679, 66272947, 5739606, 5006064 ####[facility] [address] [place] [address] EOSINOPHILS:NCNC:P T:BLD:QN:MANUAL COUNT 5 % Normal 0-8 [facility] Comment on above: Order Comment: Order Added by Discern Expert. Performed By: #### 1 4159723, 5016890, 38516617, 9806007, 05443970, 8770886, 8202496 ####[facility] [address] [place] [address] LYMPHOCYTES:NCNC:P T:BLD:QN:MANUAL COUNT 13 % Low 14-50 [facility] Comment on above: Order Comment: Order Added by Discern Expert. Performed By: #### 1 4490041, 0351942, 33265998, 0394952, 54598094, 9099200, 3316153 ####[facility] [address] [place] [address] MONOCYTES:NCNC:PT: BLD:QN:MANUAL COUNT 7 % Normal 4-14 [facility] Comment on above: Order Comment: Order Added by Discern Expert. Performed By: #### 1 5678743, 1772165, 27530529, 9447432, 59197989, 7912851, 0398269 ####[facility] [address] [place] [address] Neutrophils band/100 leukocytes 12 % High 0-10 [facility] Comment on above: Order Comment: Order Added by Discern Expert. Performed By: #### 1 9940160, 1637345, 47180945, 8634891, 57323340, 5324394, 6199076 ####[facility] [address] [place] [address] NEUTROPHILS.SEGMEN RENETTA:NCNC:PT:BLD:QN :MANUAL COUNT 63 % Normal 36-75 [facility] Comment on above: Order Comment: Order Added by Discern Expert. Performed By: #### 1 8682260, 4536095, 82870178, 4828273, 33858047, 2606742, 8302729 ####[facility] [address] [place] [address] PLATELETS.LARGE:MT THR:PT:BLD:ORD:LARISA ROSCOPY.LIGHT Present Normal [facility] Comment on above: Order Comment: Order Added by Discern Expert. Performed By: #### 1 2341999, 9251896, 27801577, 7642696, 33880046, 1234378, 4234176 ####[facility] [address] [place] [address] Toxic Gran Present Normal [facility] Comment on above: Order Comment: Order Added by Margo Expert. Performed By: #### 1 6535288, 2621616, 84520763, 2581112, 32274384, 9067466, 6328097 ####[facility] [address] [place] [address] Progress Note-Physicianon Progress Note-Physician Patient: WILLOW WILKES [...] g 3.375 gram 1 EA, IV Piggyback, f1ammjmdhhcqtj + Sodium Chloride 0.9% 500 mL 2 gram 2 EA, IV Piggyback, o32jjCsmiefhauz: (2)Sodium Chloride 0.9% 1,000 mL 1,000 mL, IV, 125 mL/hrSodium Chloride 0.9% 2,190 mL 2,190 mL, IV, 999 mL/hrPRN: (6)acetaminophen 325 mg Tab UD [F] 650 mg 2 tab(s), Oral, e8myjvrelzzpm 0.083% Inh Mary 3 mL [F] 2.5 mg 3 mL, NEB, n6oiiroytrxfo CFC free 90 mcg/inh Inh Aer w/Adapt 8.5 gm [F] 180 microgram 2 puff(s), Inhalation, i5ziezgcpdvfy 30 mg/mL Inj 1 mL [F] 30 mg 1 mL, IV, k3rtntyhanbv 10 mg/mL preservative-free SOLN [F] 2 mg 0.2 mL, IV Push, r6iqmknrlqgqlqc 2 mg/mL Inj [F] 4 mg 2 mL, IV Push, q6hr Problem list: All ProblemsImpaired skin integrity / SNOMED CT 04219664 / ConfirmedProblem added on documentation of skin impairments.Smoker / IMO 014645 / ConfirmedAdded secondary to documentation in Social [...] MaximumTemp 36.8 (OCT 07 15:00) 36.7 (OCT 07:) H 37.9 (OCT 07 00:57)Heart Rate 86 (OCT 07 15:00) 86 (OCT 07 15:00) H 114 (OCT 07 00:58)Resp Rate H 23 (OCT 07 15:00) 16 (OCT 06 19:53) H 23 (OCT 07 15:00)SBP H 144 (OCT 07 15:00) 96 (OCT 07 00:57) H 144 (OCT 07 15:00)DBP 73 (OCT 07 15:00) L 53 (OCT 07:22) 73 (OCT 07 15:00)MAP 81 (OCT 07:) 69 (OCT 07:22) 81 (OCT 07:)SpO2 96 (OCT 07 15:00) 95 (OCT 07 [...] E9/L HI Lymph Abs Man 2.6 E9/L Limestone Abs Man 1.4 E9/L HI Eos Abs [...] officially consult surgery for possible I&D Normal [facility] Comment on above: Result Comment: Elec tronically Signed By: Jesse Davidson DO\.br\Date and Time Signed: 10/07/17 16:33 EST Vanco Troughon 10-07-2017 VANCOMYCIN 13 microgram/mL Normal 10-20 [facility] Comment on above: Performed By: #### 1 8996025, 8837270, 66092652, 2355993, 28642891, 3162013, 6286430 ####[facility] [address] [place] [address] eGFRon 10-07-2017 eGFR (black) mL/min/{1.73_m2} Normal >=59 [facility] Comment on above: Order Comment: Order added by Discern Expert. Result Comment: eGFR is race adjusted. AA=. Performed By: #### 1 6474735, 1218144, 75049713, 0267812, 74504575, 9202767, 7015122 ####[facility] [address] [place] [address] eGFR (non-black) mL/min/{1.73_m2} Normal >=59 [facility] Comment on above: Order Comment: Order added by Discern Expert. 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 Kidney failure is indicated at less than 15 mL/min/1.73m2. Performed By: #### 1 8598170, 1302293, 44876322, 8158776, 30275676, 1735936, 8328634 ####[facility] [address] [place] [address] .Manual Abson 10-06-2017 BASOPHILS/LEUKOCYT ES:NFR.DF:PT:BLD:Q N:MANUAL COUNT 0.0 E9/L Normal 0.0-0.2 [facility] Comment on above: Performed By: #### 1 0641331, 4865431, 54402360, 2687768, 59620994, 7435568, 6606075 ####[facility] [address] [place] [address] EOSINOPHILS/LEUKOC YTES:NFR.DF:PT:BLD :QN:MANUAL COUNT 0.0 E9/L Normal 0.0-0.5 [facility] Comment on above: Performed By: #### 1 4013876, 5145133, 60499172, 8326816, 50257412, 5243983, 9496633 ####[address] [address] LYMPHOCYTES/LEUKOC YTES:NFR.DF:PT:BLD :QN:MANUAL COUNT 1.0 E9/L Normal 1.0-4.0 [facility] Comment on above: Performed By: #### 1 0856912, 9255835, 75707860, 1420711, 14392547, 1675229, 7509509 ####[address] [address] MONOCYTES/LEUKOCYT ES:NFR.DF:PT:BLD:Q N:MANUAL COUNT 2.6 E9/L High 0.2-1.0 [facility] Comment on above: Performed By: #### 1 2383476, 7669705, 58953930, 8619191, 84602314, 0143290, 3282317 ####[address] [address] Neutrophils 15.4 E9/L High 2.0-7.5 [facility] Comment on above: Performed By: #### 1 6019487, 1495269, 53966983, 0466853, 39326844, 0866227, 7917621 ####[address] [address] CBC w/ Auto Diffon 7 Erythrocyte distribution width Auto Ratio (RBC) 13.4 % Normal 10.9-14.2 [facility] Comment on above: Performed By: #### 1 9315880, 5715942, 63716486, 1087342, 04542525, 7720286, 0274445 ####[address] [address] Erythrocytes (RBC) 4.1 E12/L Low 4.3-5.9 [facility] Comment on above: Performed By: #### 1 2001747, 8339098, 60212064, 9860448, 32893328, 0616317, 6656704 ####[address] [address] Hematocrit (HCT) 37.7 % Normal 37.7-49.0 [facility] Comment on above: Performed By: #### 1 6946564, 4697943, 01972946, 1972626, 40415247, 8395917, 7327434 ####[facility] [address] [place] 2329757 Hemoglobin mass conc (Bld) 13.0 g/dL Low 13.5-17.5 [facility] Comment on above: Performed By: #### 1 3244249, 0176658, 90029108, 6224587, 53823177, 6590702, 5760856 ####[address] [place] [address] MCH 31.6 pg Normal 27.0-34.0 [facility] Comment on above: Performed By: #### 1 8547728, 6419409, 11871011, 3947573, 11558139, 7041131, 7212814 ####[facility] [address] [place] 2329757 MCHC mass conc (RBC) 34.5 g/dL Normal 31.4-39.3 [facility] Comment on above: Performed By: #### 1 3022955, 8836553, 94745977, 7908083, 24368296, 4456160, 6389257 ####[address] [place] 2329757 MCV 91.5 fL Normal 80.0-100.0 [facility] Comment on above: Performed By: #### 1 6527348, 9079614, 37202921, 5597659, 79190860, 5023784, 9893984 ####[address] [place] 2329757 Platelet mean volume (PMV) 7.7 fL Normal 6.4-10.8 [facility] Comment on above: Performed By: #### 1 9384703, 9396893, 68809971, 0517237, 03581992, 5197848, 2867292 ####[address] [place] [address] Platelets 309.0 E9/L Normal 150.0-500. 0 [facility] Comment on above: Performed By: #### 1 4928524, 2894610, 88199738, 9307618, 35489885, 5325257, 2249120 ####[address] [place] [address] WBC (Leukocytes) 19.7 E9/L High 4.0-11.0 [facility] Comment on above: Performed By: #### 1 3894347, 1710353, 72512743, 2375523, 83793111, 6132862, 2043332 ####[address] [address] CMPon 10-06-2017 Alanine aminotransferase (ALT) 61 Int._Unit/L High 6-46 [facility] Comment on above: Performed By: #### 1 8337876, 8225028, 10106774, 6236446, 50691735, 0879895, 4015421 ####[address] [address] Albumin 0.7 g/dL Low 1.1-2.2 [facility] Comment on above: Performed By: #### 1 2553438, 7277207, 95677270, 7258564, 31207250, 9036123, 3478220 ####[address] [address] Albumin 2.8 g/dL Low 3.3-5.0 [facility] Comment on above: Performed By: #### 1 5970032, 5401025, 87156656, 1136957, 53207661, 9092460, 4039876 ####[address] [address] Alkaline phosphatase (ALP) 147 Int._Unit/L High 21-98 [facility] Comment on above: Performed By: #### 1 2306142, 9789456, 16513584, 0809909, 60795810, 9821150, 3604520 ####[facility] [address] [place] [address] Anion gap 13 mmol/L Normal 6-16 [facility] Comment on above: Performed By: #### 1 7040205, 3150255, 17837693, 3290964, 86560011, 9597040, 0178451 ####[facility] [address] [place] [address] Aspartate aminotransferase (AST) 49 Int._Unit/L High 5-43 [facility] Comment on above: Performed By: #### 1 2742941, 1225524, 77991828, 4322631, 67677617, 1234344, 6335909 ####[facility] [address] [place] [address] Bilirubin (total) 1.0 mg/dL Normal 0.0-1.1 [facility] Comment on above: Performed By: #### 1 3194302, 6267503, 50551618, 5571166, 72552398, 6943226, 5466087 ####[facility] [address] [place] [address] BUN/Creatinine Ratio 14 No Units Normal 10-20 [facility] Comment on above: Performed By: #### 1 4974789, 3387552, 15613299, 1374051, 64847043, 4874935, 6297088 ####[facility] [address] [place] [address] Calcium 8.5 mg/dL Low 8.9-11.1 [facility] Comment on above: Performed By: #### 1 4606552, 0938486, 38429488, 2138433, 54060503, 6337752, 8774009 ####[facility] [address] [place] [address] Chloride 93 mmol/L Low 101-111 [facility] Comment on above: Performed By: #### 1 2909332, 4842056, 93594144, 4311907, 70544041, 8845174, 4469496 ####[facility] [address] [place] [address] CO2 25 mmol/L Normal 21-31 [facility] Comment on above: Performed By: #### 1 7194677, 2651146, 19185209, 9818797, 23104061, 9474794, 7568255 ####[facility] [address] [place] [address] Creatinine 0.9 mg/dL Normal 0.5-1.3 [facility] Comment on above: Performed By: #### 1 4052749, 1252576, 47821992, 0810935, 50321060, 8801005, 1329071 ####[facility] [address] [place] [address] Globulin 3.8 g/dL Normal 1.4-4.0 [facility] Comment on above: Performed By: #### 1 4483785, 2700118, 67395361, 7621089, 44309224, 9381800, 2126147 ####[facility] [address] [place] [address] Glucose mass conc 107 mg/dL Normal 55-199 [facility] Comment on above: Result Comment: If t his glucose result represents a fasting glucose, interpretation should refer to the following reference range: 55-99 mg/dL Performed By: #### 1 8529131, 2371205, 40100883, 1611280, 72368795, 5854850, 2064882 ####[facility] [address] [place] [address] Potassium molar conc 4.1 mmol/L Normal 3.5-5.3 [facility] Comment on above: Performed By: #### 1 7630794, 5975481, 78580169, 7224847, 57014568, 5069747, 0661575 ####[facility] [address] [place] [address] Protein 6.6 g/dL Normal 6.0-7.8 [facility] Comment on above: Performed By: #### 1 1081591, 7326412, 63813780, 0954693, 80974981, 2726896, 4453093 ####[facility] [address] [place] 2329757 Sodium 127 mmol/L Low 135-145 [facility] Comment on above: Performed By: #### 1 7596481, 7884126, 80159061, 1105383, 59605658, 4558126, 4855796 ####[facility] [address] [place] [address] Urea nitrogen 13 mg/dL Normal 5-21 [facility] Comment on above: Performed By: #### 1 3540154, 9984693, 20914347, 6214185, 30893771, 7041729, 8911211 ####[facility] [address] [place] [address] ED Clinical Summaryon 2016 ED Clinical Summary [place] [id number] ED Clinical SummaryPerson Information Name: Juan Carlos WILKES/[facility]_Bretn Age: 27 Years : 1990 12:00 AM Sex: Male Language:Gabonese PCP: Myra Middleton MD Marital Status:Single Visit Id: Visit Reason:Increased heart rate; Nausea; Dizziness; Pain in back; CELLULITIS, PHLEGMON, TACHYCARDIA Speciality: Acuity: 3 Enc Type: Inpatient Med Service: Medical Arrival:10/05/2017 5:35 PM Discharge: LOS: 000 11:42 Checkin:10/05/2017 5:35 PM Checkout: 10/06/2017 5:17 AM Dispo Type: Admitted as IP to this [facility] EVENTS:Event Name Event Status Request Date/Time [...] AM Patient Care Request 10/06/2017 4:41 AM ADDRESS:[address] [place] [id number] [facility] DOC NOTES: MEDICAL INFORMATION: Prescriptions Given:PATIENT EDUCATION INFORMATION: Instructions: Follow up:DIAGNOSIS: Normal [facility] ED Patient Education Noteon 10-06-2017 ED Patient Education Note Patient Education Materials Follows: Normal [facility] ED Patient Summaryon 017 ED Patient Summary (Inserted Image. La ble to display) [place] [id number] Patient Discharge Instructions Person Information Name: WILLOW WILKES Age: 27 Years Date: 10/05/2017 5:35 PMDischarge Diagnosis: Primary Care Physician: Myra Middleton MD Provider InformationPrimary Provider: Анна Torres M.D.hysiciyeimy Multimedia Instructional Designer:None The exam and treatment you received in the Emergency Department were for an urgent problem and are not intended as complete care. It is important that you follow up with a doctor, nurse practitioner, or physician?s geological survey field assistant for ongoing care. If your symptoms [...] Initial Volume 999.00 mL/hr IV Left Antecubital [place] Sodium Chloride 0.9% intravenous solution 1000.00 mL Initial Volume 999.00 mL/hr IV Left Antecubital [place] morphine 6.00 mg IV Push Left Antecubital [place] morphine 4.00 mg IV Push Left Antecubital [place] vancomycin 1.50 gram IV Piggyback Left Antecubital Diana piperacillin-tazobactam 3.38 gram IV Piggyback Left Antecubital Diana hydromorphone 1.00 mg IV Push Left Antecubital Diana Medication Information:Comment: Pharmacy Information: Thank you for choosing [facility] Patient Education Materials: CHUNG Bustamante RYAN , have received the following patient education materials/instructions and have verbalized understanding: Patient Education Materials: Follow-up Instructions: Prescriptions: Patient Signature Date Clinician/Nurse Signature Date 10/06/17 05:17:22 Normal [facility] History and Physicalon 10-06 History and Physical Patient: WILLOW WILKES Age: 27 years Sex: Male : 1990 Associated Diagnoses: None Author: Jesse Davidson DO Chief Complaint 10/05/2017 18:24 EST pain in mid back to hip. ongoing X2 weeks. was seen in [place] and [place] [facility] but was told it was just muscle spasms. xray and urin were obtained in [place]. History of Present Illness 27 Y/O presents [...] g 3.375 gram 1 EA, IV Piggyback, b4qhtnyvqcvpfe + vancomycin + Sodium Chloride 0.9% 500 mL 1,750 mg, IV Piggyback, a99elUahrepegzs: (2)Sodium Chloride 0.9% 1,000 mL 1,000 mL, IV, 125 mL/hrSodium Chloride 0.9% 2,190 mL 2,190 mL, IV, 999 mL/hrPRN: (2)morphine 2 mg/mL preservative-free SOLN [F] 2 mg 1 mL, IV Push, p0qpnpcusometkr 2 mg/mL Inj [F] 4 mg 2 mL, IV Push, q6hr Problem list: All ProblemsSmoker / IMO 503648 / ConfirmedAdded secondary to documentation in Social History., Active Problems (1)Smoker Histories Past Medical History: ResolvedAsthma ([id number]): Resolved. Family History: AsthmaMother Procedure history: Incision AND drainage ([id number]).Comments:10/06/2017 06:12 - Raulito THOMPSON, Philippe right hand Social History Social & Psychosocial IknehxMghrzrq50/26/2017 Risk Assessment: Denies Alcohol UseSubstance Abuse10/05/2017 Risk Assessment: Denies Substance KmqwjJmvhkvu78/26/2017 Risk Assessment: High Risk10/05/2017 Use: Current Every [...] E9/L HI Lymph Abs Man 1.0 E9/L Limestone Abs Man 2.6 E9/L HI Eos Abs [...] the need for cessation- DVT proph: . AmbulationMickey horton require more than 2 MN's to treat the above Normal [facility] Comment on above: Result Comment: Elec tronically Signed By: Jesse Davidson DO\.br\Date and Time Signed: 10/06/17 12:53 EST Interdisciplinary Note - Brett e Manageron 10-06-2017 Interdisciplinary Note - Video Tape Duplicator CRM spoke with pt at bedside, white board updated, no family present. Pt states no PCP, list was provided at bedside. Pt understands plan is stay today, continue IV antibiotics, fluids, pain medication. Pt denies needs. Normal [facility] Lactic Acidon 10-06-2017 LACTATE:MCNC:PT:SE R/PLAS:QN: 5.1 mg/dL Normal 4.5-19.8 [facility] Comment on above: Performed By: #### 2 674170 ####[facility] [address] [place] [address] LACTATE:MCNC:PT:SE R/PLAS:QN: 7.7 mg/dL Normal 4.5-19.8 [facility] Comment on above: Performed By: #### 1 4429555, 7513594, 76441271, 2788770, 60167185, 1666678, 2356957 ####[facility] [address] [place] [address] Manual Diffon 10-06-2017 BASOPHILS:NCNC:PT: BLD:QN:MANUAL COUNT 0 % Normal 0-2 [facility] Comment on above: Order Comment: Order Added by Discern Expert. Performed By: #### 1 6191422, 5406622, 67773583, 2292833, 78139633, 5187749, 8963402 ####[facility] [address] [place] [address] Blood morphology Normal Normal [facility] Comment on above: Order Comment: Order Added by Discern Expert. Performed By: #### 1 8678930, 9487118, 14815954, 7246880, 01729070, 7184854, 2445159 ####[place] [place] [address] [place] [address] EOSINOPHILS:NCNC:P T:BLD:QN:MANUAL COUNT 0 % Normal 0-8 [facility] Comment on above: Order Comment: Order Added by Discern Expert. Performed By: #### 1 9803488, 5287589, 71922309, 9637020, 46185103, 9254560, 9754024 ####[place] [place] [place] [address] LYMPHOCYTES:NCNC:P T:BLD:QN:MANUAL COUNT 5 % Low 14-50 [facility] Comment on above: Order Comment: Order Added by Discern Expert. Performed By: #### 1 [id number], [id number], [id number], 9370757, [id number], 6544959, 2668135 ####[address] [address] MONOCYTES:NCNC:PT: BLD:QN:MANUAL COUNT 13 % Normal 4-14 [facility] Comment on above: Order Comment: Order Added by Discern Expert. Performed By: #### 1 [id number], 6295167, 31509842, 5025278, 42739671, 6859102, 7202599 ####[address] [place] [address] Neutrophils band/100 leukocytes 4 % Normal 0-10 [facility] Comment on above: Order Comment: Order Added by Discern Expert. Performed By: #### 1 6157597, 5608025, 74904075, 4511148, 35779310, 3418971, 0188193 ####[address] [place] [address] NEUTROPHILS.SEGMEN RENETTA:NCNC:PT:BLD:QN :MANUAL COUNT 78 % High 36-75 [facility] Comment on above: Order Comment: Order Added by Discern Expert. Performed By: #### 1 [id number], 4712633, 74526413, 2742806, 59757391, 0145491, 4396557 ####[facility] [address] [place] [address] PT & PTTon 10-06-2017 aPTT 30.1 second(s) Normal 25.1-36.5 [facility] Comment on above: Result Comment: Hepa rin therapeutic range (represented by Anti-Factor Xa activity of 0.2 - 0.4 U/mL) corresponds to PTT of 53.9 - 87.4 sec. Performed By: #### 1 [id number], 6699561, 79675095, 7725294, 16399842, 3737532, 1302569 ####[facility] [address] [place] [address] INR Coag RelTime (PPP) 1.2 {INR} Invalid Interpretation Code [facility] Comment on above: Result Comment: INR results are specifically intended to assess patients stabilized on long-term Anticoagulation therapy suggested INR?s ?Less Intensive Anticoagulation? 2.0 ? 3.0Conventional Range 3.0 ? 4.5 Performed By: #### 1 3298595, 2915373, 92188581, 8941954, 87958174, 3555877, 0240109 ####[facility] [address] [place] [address] Prothrombin time (PT) Coag time (PPP) 13.3 second(s) High 10.2-12.9 [facility] Comment on above: Performed By: #### 1 6282740, 0091536, 74530792, 1814226, 28728364, 7455794, 9368066 ####[facility] [address] [place] [address] Progress Note-Nurseon 2016 Progress Note-Nurse 2231 - Dr Torres at [facility]ird0515 - Notified Dr. Torres pt requesting more [...] Pt ready to transfer upstairs to room 321S.0747 ----time clarification for last note above Normal [facility] UA With Cult Reflexon 2016 BACTERIA:PRTHR:PT: URINE SED:ORD:MICROSCOPY .LIGHT TRACE Normal Trace [facility] Comment on above: Performed By: #### 1 [id number] ####[facility] [address] [place] [address] Bilirubin Ql (U) Negative Normal Negative [facility] Comment on above: Performed By: #### 1 7164803 ####[facility] [address] [place] [address] COLOR:TYPE:PT:URIN E:NOM:AUTO YELLOW Normal Yellow [facility] Comment on above: Performed By: #### 1 6586706 ####[facility] [address] [place] [address] Erythrocytes (RBC) 0-3 Normal 0-3 [facility] Comment on above: Performed By: #### 1 1349371 ####[facility] [address] [place] [address] GLUCOSE:MCNC:PT:UR INE:QN:TEST STRIP Negative Normal Negative [facility] Comment on above: Performed By: #### 1 4020588 ####[facility] [address] [place] [address] KETONES:MCNC:PT:UR INE:QN:TEST STRIP TRACE Abnormal Negative [facility] Comment on above: Performed By: #### 1 6250468 ####[facility] [address] [place] [address] LEUKOCYTES:PRTHR:P T:URINE:ORD:AUTOMA RENETTA Negative Normal Negative [facility] Comment on above: Performed By: #### 1 [id number] ####[facility] [address] [place] [address] UA Spec Desc Clean Catch Normal [facility] Comment on above: Performed By: #### 1 7683129 ####[facility] [address] [address] Urine, clarity CLEAR Normal Clear [facility] Comment on above: Performed By: #### 1 9890940 ####[facility] [address]cats[place] [address] Urine, hemoglobin presence Negative Normal Negative [facility] Comment on above: Performed By: #### 1 1522902 ####[facility] [address] [facility] [place] [address] Urine, leukocytes in sedmiment 0-5 Normal 0-5 [facility] Comment on above: Performed By: #### 1 8224102 ####[facility] [address] [facility] [place] [address] Urine, mucus presence in sediment TRACE Normal [facility] Comment on above: Performed By: #### 1 0577153 ####[facility] [address] [facility] [place] [address] Urine, nitrite presence Negative Normal Negative [facility] Comment on above: Performed By: #### 1 4061425 ####[facility] [address] [facility] [place] [address] Urine, pH 7.0 [pH] Invalid Interpretation Code 5.0-9.0 [facility] Comment on above: Performed By: #### 1 8317329 ####[facility] [address] [address] Urine, protein 1+ Abnormal Negative [facility] Comment on above: Performed By: #### 1 8331193 ####[facility] [address] [address] Urine, specific gravity 1.010 Invalid Interpretation Code 1.005-1.03 0 [facility] Comment on above: Performed By: #### 1 5386166 ####[facility] [address]cats[address] [place] [address] Urine, squamous cells in sediment 0-2 Normal 0-2 [facility] Comment on above: Performed By: #### 1 8504392 ####[facility] [address] [place] [address] Urine, urobilinogen 1.0 {Aleksandr'U}/dL Normal 0.0-1.0 [facility] Comment on above: Performed By: #### 1 2319342 ####[facility] [address] [place] [address] XR Chest 2 Viewson 7 XR Chest [...] Hugh Landon MD Transcribed by: JENNIFFER Technologist: LFOYD Normal [facility] eGFRon 10-06-2017 eGFR (black) mL/min/{1.73_m2} Normal >=59 [facility] Comment on above: Order Comment: Order added by Discern Expert. Result Comment: eGFR is race adjusted. AA=. Performed By: #### 1 0621932, 6514500, 08991796, 3250441, 97812777, 3155349, 4044276 ####[facility] [address] [place] [address] eGFR (non-black) mL/min/{1.73_m2} Normal >=59 [facility] Comment on above: Order Comment: Order added by Discern Expert. 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 Kidney failure is indicated at less than 15 mL/min/1.73m2. Performed By: #### 1 3527637, 2960165, 40719550, 7678342, 55781531, 8447475, 8807418 ####[facility] [address] [facility] [place] [address] Coding Summaryon 08-17-2017 Coding Summary CODING DATE: [facility] STATUS: Home PAYOR: Medicaid HMO ADMIT DX: [...] Verma Revised Date Saved: 06/07/2017 02:49 pm [facility] Coding Summary CODING DATE: [facility] STATUS: Home PAYOR: Medicaid HMO ADMIT DX: [...] Verma Revised Date Saved: 06/07/2017 02:48 pm [facility] Coding Summaryon 08-12-2017 Coding Summary CODING DATE: [facility] STATUS: Home PAYOR: Medicaid HMO ADMIT DX: [...] Mira Verma Date Saved: 08/12/2017 12:26 pm [facility] Coding Summary CODING DATE: 017 [facility] STATUS: Home PAYOR: Medicaid HMO ADMIT DX: [...] Coded By: Mira Verma Date Saved: 08/12/2017 12:25 pm [facility] ED Clinical Summaryon 2016 ED Clinical Summary [facility] - Emergency [address] [place], [place] [id number] ed Clinical SummaryPERSON INFORMATIONName: WILKESWILLOW Age: 27 Years Sex: MALEDOB: [birth year] MRN: Acct#:Visit Reason: Back pain; BACK PAIN Arrival:08/05/17 20:28:00 Discharge: 08/05/17 22:21:00LOS: 000 01:53 Check In: 08/05/17 20:28:00 Checkout:08/05/17 22:21:00Address:[address] [place] [address]OFK: Provider, NonePROVIDER INFORMATIONProvider Role Assigned UnassignedNeeraj Raphael [...] Radiculopathy; Back Pain, AdultFollow-Up:With: Address: When:ANJU CROCKER [address] [place] [address], [id number] Business (1) Within 3 to 5 daysComments:Diagnosis [...] any questions.[facility] Address: When:None Provider Within 3 to 5 daysDIAGNOSIS:Accidental fall; L4-L5 disc bulge; Lumbar back pain with radiculopathy affecting right lower extremityComment: Normal [facility] ED Note - Otheron 08-06-2017 ED Note - Other In patients chart to check if items are scanned in. [Electronically Signed on: 08/06/2017 07:18 EDT] Judy Joe [Verified on: 08/06/2017 07:18 EDT] Judy Joe [facility] ED Note-Nursingon 08-06-2017 ED Note-Nursing Pt discharged home. Home care and follow-up instructions given tp pt. Pt verbalized understanding. VS are WNL. PA has spoken tp pt. 1 prescription sent home with pt. 2 prescriptions sent to [facility]. Pt ambulated self to exit. [facility] ED Patient Education Noteon 08-06-2017 ED Patient [...] Document Reviewed: 05/16/2014Magaly Interactive Patient Education ?2016 [employer]Lumbosacral RadiculopathyLumbosacral radiculopathy is a condition that [...] Document Reviewed: 09/23/2015Magaly Interactive Patient Education ?2016 [employer].Back Pain, AdultBack pain is very common in [...] stressful on your back to sit or animated cartoons painter one place for long periods of time. Do not sit, drive, or animated cartoons painter one place for more than 30 minutes [...] as directed by your health care provider. Fber-dxf-fcciclh medicines to reduce pain and inflammation are [...] Document Reviewed: 01/29/2015Magaly Interactive Patient Education ?2016 [employer] Normal [facility] ED Patient Summaryon 08-06-2 017 ED Patient Summary [facility] - Emergency [address] [place], [place] [id number] pATIENT DISCHARGE INSTRUCTIONSPatient InformationName: CHUNGWILLOW Age: 27 YearsDate of : [birth year]MRN: [id number] For Visit: Back pain; BACK PAINArrival Time: 08/05/17 20:28:00Phone: Primary Care Physician: Provider, NoneAttending Physician: Luis F Hood DOComment:Visit Diagnosis:Diagnoses This Visit Accidental fall (W19.XXXA) Back pain ([id number] ECP150) L4-L5 disc bulge (M51.26) Lumbar back pain [...] or sign any legal documentsWith: Address: When:ANJU ALEJANDROSterling [address] [facility], [place] [address] Business (1) Within 3 to 5 daysComments:Diagnosis [...] any questions.Prescriptions have been [facility]: Address: When:None Provider Within 3 to 5 daysMedication Information:The exam and treatment you received today in the [facility] Emergency Department were for an urgent problem and are not intended as complete care. It is important for you to follow up with a doctor, nurse practitioner, or physician?s geological survey field assistant for ongoing care. If your symptoms [...] number so we can reach you if necessary.[facility] Emergency Department has provided you with a complete list of medications post discharge. Please inform your contracting specialist/provider of your visit and for further instruction on these medications. Any specific questions regarding your chronic medications and dosages should be discussed with your primary care physician(s) and/or pharmacist. [facility]ationsR[facility] [address] [id number], [phone] (orphenadrine 100 mg oral tablet, extended release) 1 tab(s) Oral 2 times a day as needed pain for 7 Days. Refills: 0.predniSONE (predniSONE 20 mg oral tablet) 2 tab(s) Oral every day for 5 Days. Refills: 0.Printed Prescriptionsacetaminophen-hydr ocodone (Dalbo 5 mg-325 mg oral tablet) 1 tab(s) [...] Document Reviewed: 05/16/2014Rickyevtanner Interactive Patient Education ?2016 [employer]Lumbosacral RadiculopathyLumbosacral radiculopathy is a condition that [...] Document Reviewed: 09/23/2015Magaly Interactive Patient Education ?2016 [employer].Back Pain, AdultBack pain is very common in [...] stressful on your back to sit or animated cartoons painter one place for long periods of time. Do not sit, drive, or animated cartoons painter one place for more than 30 minutes [...] as directed by your health care provider. Dtxm-cfm-npocmlg medicines to reduce pain and inflammation are [...] Released: 09/27/2006 Document Revised: 10/18/2015 Document Reviewed: 01/29/2015RickyGlooko Interactive Patient Education ?2016 [employer]. Viruses or BacteriaWhat?s got you sick?Antibiotics only [...] for Disease Control and Prevention June [address] [facility] [address] Spine Lumbar w/o Contrast on [...] changes. There is mild disc space narrowing jkosP63-T07 to L3-L4. No definite acute fracture or [...] and upon the proximal portion of the S0drtgb root on the left, correlate clinically. There [...] ON THE LEFT, CORRELATE CLINICALLY.NILS Phillips #: [id number]: 08/06/2017T: 08/06/2017 Final Dictated by: David Ward MD SDictated DT/TM: 08/06/17 6:48Signed (Electronic Signature): David Ward MD 08/06/17 11:21 aTechnologist: [facility] ED Note - Physicianon 2016 ED Note - Physician Patient: WILLOW WILKES : 27 years Sex: MALE : [birth year]Associated Diagnoses: Lumbar back pain with radiculopathy affecting right lower extremity; Accidental fall; L4-L5 disc bulgeAuthor: Neeraj RaphaelBasic InformationAdditional information: Chief Complaint from Nursing Triage Note : Chief Qaqcmepjf84/26/17 20:41 EDT Chief Complaint Lower back pain [...] Social HistoryMedical history:ResolvedModerate persistent asthma with exacerbation ([id number]): Resolved.Pneumonia due to other specified bacteria (75314063): Resolved.Smoker ([id number] 186CD8): Resolved.Comments: -Added secondary to documentation in Social History.Pain due to dental caries (43355154): Resolved..Surgical history:Colonoscopy normal ([id number]) in 2015 at 25 Years..Family history:AsthmaMotherSisterGrand father (Maternal)Cancer - unknown originGrandfather (Paternal)FibromyalgiaMotherChr onic coughMother.Social history:Social & Psychosocial YxbaenRjyhppi99/06/2016 Risk Assessment: Low Risk Comment: denies - 03/25/2016 14:35 - Leila Chavez LPNEmployment/Uakais1403/16/2016 Risk Assessment: Low Risk03/25/2016 Status: Employed 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/Gksngewlqgr46/15/2016 Lives with: MotherSubstance Abuse03/16/2016 Risk Assessment: Denies Substance ItnolAgfoins91/06/2016 Risk Assessment: Low Risk03/24/2017 Type: Cigarettes Comment: [...] mmHg SpO2 98 % Oxygen Therapy Room air.Wjizbmuaipys15/26/17 20:43 EDT Weight Dosing 74.840 kg08/05/17 20:43 [...] the form of prednisone, muscle relaxant, and Dalbo. I discussed them that in regards to [...] pain with radiculopathy affecting right lower extremity (YDL49-EZ M54.17, Discharge, Medical)L4-L5 disc bulge (TFK17-PA M51.26, Discharge, Medical)Accidental fall (RNN81-JW W19.XXXA, Discharge, Medical)PlanCondition: Improved, Stable.Disposition: Discharged: Time 08/05/17 21:59:00, to home.Prescriptions: Launch prescriptionsPharmacy:orphenadr ine 100 mg oral tablet, extended release (Prescribe): 100 mg, 1 tab(s), PO, BID, for 7 day(s), PRN: pain, 14 tab(s), 0 Refill(s)predniSONE 20 mg oral tablet (Prescribe): 40 mg, 2 tab(s), PO, Daily, for 5 day(s), 10 tab(s), 0 Refill(s)Dalbo 5 mg-325 mg oral tablet (Prescribe): 1 [...] questions.Prescriptions have been electronically transferred to [facility]; None Provider Within 3 to 5 days.Counseled: Patient, Family, Regarding diagnosis, Regarding diagnostic results, Regarding treatment plan, Regarding prescription, Patient indicated understanding of instructions.[Electronically Signed on: 08/05/2017 22:28 EDT] Neeraj Raphael[Verified on: 08/05/2017 22:28 EDT] Neeraj Raphael [facility] ED Note-Nursingon 08-05-2017 ED Note-Nursing Pt presented to the ER with c/o Lower back. Pt states he slipped on a storage container lid and fell on his back. Pt has h/o lower back pain. Pt is awake and alert. VS are WNL. Lungs clear. Denies SOB, Chest pain, Dizziness, N/V. Respirations are regular, even, unlabored. Pt placed in gown. PA at bedside. [facility] Rad - Other Radiology Report on 08-05-2017 Rad - Other Radiology Report [id number] [facility] Coding Summaryon 06-07-2017 Coding Summary CODING DATE: [facility] STATUS: Home PAYOR: Medicaid HMO ADMIT DX: [...] Duglas Verma' Date Saved: 06/07/2017 02:49 pm [facility] Coding Summary CODING DATE: [facility] STATUS: Home PAYOR: Medicaid HMO ADMIT DX: [...] Mira Verma Date Saved: 06/07/2017 02:48 pm [facility] ED Clinical Summaryon 2016 ED Clinical Summary [facility] - Emergency [address] [place] [address] ed Clinical SummaryPERSON INFORMATIONName: WILLOW WILKES Age: 26 Years Sex: MALEDOB: [birth year] MRN: Acct#:Visit Reason: Testicular pain; Testicular pain; PELVIC/TESTICULAR PAIN/ X 1 WEEK Arrival:06/01/17 23:15:00 Discharge: 06/02/17 00:17:00LOS: 000 01:02 Check In: 06/01/17 23:15:00 Checkout:06/02/17 00:17:00Address:[address] [place] [id number]: Provider, NonePROVIDER INFORMATIONProvider Role Assigned UnassVargas Kapoor MD ED Provider 06/01/17 23:16:Nora Bolivar ED Nurse 06/01/17 23:23:24VITALS INFORMATIONVital Sign Triage [...] & time 06/01/17 23:24:00.Testicular painHistory of Present Aodwvev19-kjrp-sbs white male presents to the emergency room [...] recently tested negative for STDs. He reports aefv-yeu-bbylwag medications have not been helping his pain [...] underwear until this resolves..Impression and PlanDiagnosisLeft epididymitis (JRJ07-DT N45.1, Discharge, Medical)PlanCondition: Improved.Disposition: Discharged: to home.Prescriptions: [...] Within 3 to 5 daysDIAGNOSIS:Left epididymitisComment: Normal [facility] ED Note - Physicianon 2016 ED Note - Physician Patient: WILLOW WILKES : 26 years Sex: MALE : [birth year]Associated Diagnoses: Left epididymitisAuthor: Vargas Anthony InformationTime seen: Date & time 06/01/17 23:24:00.Testicular painHistory of Present Mudovpz32-pwdl-uyy white male presents to the emergency room [...] recently tested negative for STDs. He reports lvgs-rsd-rvyjntw medications have not been helping his pain [...] underwear until this resolves..Impression and PlanDiagnosisLeft epididymitis (XFC60-OB N45.1, Discharge, Medical)PlanCondition: Improved.Disposition: Discharged: to home.Prescriptions: [...] on: 06/01/2017 23:41 EDT] Vargas Anthony MD [facility] ED Note-Nursingon 06-02-2017 ED Note-Nursing Discharge and follow -up instructions reviewed with patient, including criteria/conditions for return to ED if necessary. Prescriptions (2 - sent electronically to pt's preferred pharmacy) and medication instructions also reviewed; pt verbalizes understanding of all instructions, offers no questions. Patient without c/o or s/s distress; ambulated out of ED without incidence, gait steady. [facility] ED Patient Education Noteon 06-02-2017 ED Patient [...] responded to other treatments.HOME CARE INSTRUCTIONSMedicines?? Take zhnb-joc-leoczls and prescription medicines only as told by [...] Document Reviewed: 02/12/2016Magaly Interactive Patient Education ?2016 [employer]. Normal [facility] ED Patient Summaryon 017 ED Patient Summary [facility] - Emergency [address] [place] [address] pATIENT DISCHARGE INSTRUCTIONSPatient InformationName: WILKESWILLOW Age: 26 YearsDate of : [birth year]MRN: [id number] For Visit: Testicular pain; Testicular pain; PELVIC/TESTICULAR PAIN/ X 1 WEEKArrival Time: 06/01/17 23:15:00Phone: Primary Care Physician: Provider, NoneAttending Physician: Vargas Anthony MDComment:Visit Diagnosis:Diagnoses This Visit Left epididymitis (N45.1) Testicular pain ([id number] 042A31) Testicular pain ([id number] 042A31)If you received any narcotics, sedation, or [...] treatment you received today in the [facility] Emergency Department were for an urgent problem and are not intended as complete care. It is important for you to follow up with a doctor, nurse practitioner, or physician?s geological survey field assistant for ongoing care. If your symptoms [...] number so we can reach you if necessary.[facility] Emergency Department has provided you with a complete list of medications post discharge. Please inform your contracting specialist/provider of your visit and for further instruction on these medications. Any specific questions regarding your chronic medications and dosages should be discussed with your primary care physician(s) and/or pharmacist. [facility], [address] [place] [phone], [phone] (doxycycline hyclate 100 mg oral capsule) 1 [...] responded to other treatments.HOME CARE INSTRUCTIONSMedicines?? Take txkn-dbs-sobcwzr and prescription medicines only as told by [...] Document Reviewed: 02/12/2016Magaly Interactive Patient Education ?2016 [employer]. Viruses or BacteriaWhat?s got you sick?Antibiotics only [...] for Disease Control and Prevention June 2014 [facility] Operative Reporton [id number] Operative Report MR#: [id number] [facility] Pt. Name: Willow Wilkes Room #: 0C [...] appeared to have healthy granulation tissue present. Aguilar was usedto minimally undermine the edges of [...] Date Dict: 04/09/2017//Katharine Pak Trans: 04/11/2017 08:21 A/Neil_JN:[id number]/ Normal [facility] Encounters Encounter Date Encounter Type Care Provider Facility Start: 08-03-2024 End: 08-03-2024 ambulatory [facility] Start: 08-02-2024 End: 08-02-2024 ambulatory [facility] Start: 08-02-2024 Encounter for preprocedural laboratory examination [facility] Start: 06-22-2024 End: 06-23-2024 Emergency department patient visit HAYES POOL [facility] Start: 06-09-2024 End: 06-09-2024 ambulatory [facility] Start: 06-05-2024 End: 06-05-2024 ambulatory [facility] Start: 04-09-2024 End: 04-10-2024 Emergency department patient visit ROME CANALES [facility] Start: 03-03-2024 End: 03-04-2024 Emergency department patient visit WILLOW MATTA [facility] Start: 03-03-2024 End: 03-03-2024 Emergency department patient visit PLACIDO SMITH [facility] Start: 12-16-2023 End: 12-16-2023 ambulatory JUSTIN Janae [facility]ILL[facility] Not Available Start: 12-15-2023 End: 12-16-2023 Emergency department patient visit CANDELARIO ABDI [facility] Start: 11-28-2023 End: 11-29-2023 Emergency department patient visit JOSHUA PROCTOR [facility] Start: 05-27-2020 End: 05-28-2020 Patient encounter procedure PLACIDO SMITH Facility:[facility] Start: 04-05-2020 End: 04-06-2020 Patient encounter procedure PLACIDO LUIS Facility: Start: 03-24-2020 End: 03-25-2020 Patient encounter procedure LITTLE GARCIA Facility: Start: 11-11-2017 End: 11-12-2017 Ambulatory Sammie Spaulding Char Facility:[facility] Start: 10-28-2017 End: 10-29-2017 Ambulatory Sammie Pardo Facility:[facility] Start: 10-06-2017 End: 10-16-2017 Evaluation and management of inpatient Myra~[id number] UNKNOWN [place] Facility:[facility] Start: 08-06-2017 End: 08-12-2017 Ambulatory None Provider Facility:[facility] Start: 08-06-2017 End: 08-12-2017 Emergency department patient visit None Provider Facility:[facility] Start: 06-02-2017 End: 06-02-2017 Emergency department patient visit None Provider Facility:[facility] Start: 06-02-2017 End: 06-02-2017 Ambulatory Vargas Anthony Facility:[facility] Start: 04-09-2017 End: 04-10-2017 Ambulatory OVI LANGE Facility:[facility] Procedures Date Procedure Procedure Detail Performing Clinician Start: 04-09-2017 ANESTH LOWER ARM SURGERY FIDENCIO RAY Start: 04-09-2017 Debridement muscle & fascia 20 sq cm/< OVI STAFFORDHEIM Payers Date Payer Category Payer Private Health Insurance [id number] 2023 Unknown [id number] 2023 Unknown [id number] 2017 Unknown [id number] 1989 Unknown [id number] 2.16.84 0.1.931174.3.579.2.593 1989 Unknown [id number] 2.16.84 0.1.930185.3.579.2.593 1989 Unknown [id number] 2.16.84 0.1.725394.3.579.2.593 1989 Unknown [id number] 2.16.84 0.1.585054.3.579.2.9 1989 Unknown [id number] 2.16.8 40.1.370522.3.579.2.1285 1989 Unknown [id number] 2.16.8 40.1.466176.3.579.2.1285 1989 Unknown [id number] 2.16.8 40.1.705867.3.579.2.1285 1989 Unknown [id number] 2.16.8 40.1.609932.3.579.2.1285 1989 Unknown [id number] 2.16.8 40.1.564576.3.579.2.1285 1989 Unknown [id number] 2.16.8 40.1.761886.3.579.2.1285 1989 Unknown [id number] 2.16.8 40.1.410374.3.579.2.1285 1989 Unknown [id number] 2.16.8 40.1.902228.3.579.2.1285 1989 Unknown [id number] 2.16.8 40.1.756676.3.579.2.1285 1989 Unknown [id number] 2.16.8 40.1.613804.3.579.2.1285 1989 Unknown [id number] 2.16.8 40.1.147715.3.579.2.1285 1989 Unknown [id number] 2.16.8 40.1.390447.3.579.2.1286 1989 Unknown [id number] 2.16.8 40.1.030741.3.579.2.128 1989 Unknown [id number] 2.16.8 40.1.606895.3.579.2.1286 1989 Unknown [id number] 2.16.8 40.1.302922.3.579.2.128 1989 Unknown [id number] 2.16. 840.1.296903.3.579.2.93 1959 Unknown [id number] Summary Purpose Family History No Family History [...] section and content) DATE CREATED AUTHOR 04/04/2018 [facility] DATE CREATED AUTHOR AUTHOR'S ORGANIZ ATION 04/05/2018 [facility] DATE CREATED AUTHOR AUTHOR'S ORGANIZ ATION 04/06/2018 [facility] DATE CREATED AUTHOR AUTHOR'S ORGANIZ ATION 06/02/2020 [facility] DATE CREATED AUTHOR AUTHOR'S ORGANIZ ATION 12/17/2023 [facility] DATE CREATED AUTHOR AUTHOR'S ORGANIZ ATION 06/06/2024 [facility] DATE CREATED AUTHOR AUTHOR'S ORGANIZ ATION 08/03/2024 [facility] DATE CREATED AUTHOR AUTHOR'S ORGANIZ ATION 08/12/2024 [facility] FOR RECORDS PERTAINING TO PATIENTS WHO ARE [...] BE BASED ON THE PRIMARY CLINICAL RECORDS. [facility] provides no warranty or guarantee of the accuracy or completeness of information in this document.
[2024-09-08 22:48] VITALS: BP 95/81; PULSE 125; TEMP 36.6; O2SAT 98; BMI 32.5
[2024-09-08] MEDS: IPRATROPIUM/ALBUTEROL SULFATE 3 ML AMPUL.NEB IH (22:56)
[2024-09-08 22:57] VITALS: O2SAT 98
[2024-09-08] MEDS: METHYLPREDNISOLONE SOD SUCC PF 125 MG/2 ML VIAL IM (23:00)
--- NOTE | 2024-09-08 23:41 | XR_ITS ---
The [address] [address] Patient Name: WILLOW WILKES MRN: [id number] date: 1990 Sex: M Assigned Patient Location: ER Current Patient Location: ER Accession/Order Number: [id number] Exam Date: 09/08/2024 23:45 Report Date: 09/09/2024 00:38 At the request of: LITTLE GARCIA Procedure: XR chest 1V EXAMINATION:XR chest 1V INDICATION:shortness of breath COMPARISON:07/23/2024 TECHNIQUE:A single frontal view of the chest is submitted. FINDINGS: The cardiac silhouette is accentuated due to the technique of the examination. The pulmonary vascularity is within normal limits. There is minimal right infrahilar atelectasis. No suspicious airspace disease is present in the lungs. There is no costophrenic angle blunting. XR/XR chest 1V IMPRESSION: No acute cardiopulmonary process in the chest. Electronically authenticated by: VIDHYA GARCIA Date: 09/09/2024 00:38
[2024-09-08] MEDS: LORAZEPAM 2 MG/ML VIAL 1 MG IV (23:53)
[2024-09-08 23:58] VITALS: PULSE 122; O2SAT 99
[2024-09-08] MEDS: ALBUTEROL SULFATE 2.5 MG/3 ML VIAL NEB IH (23:58)
[2024-09-09] VITALS (90 sets, daily range): BP systolic 121–153; BP diastolic 65–76; PULSE 61–144; TEMP 36.4–38.4; O2SAT 90–99; BMI 33.8
[2024-09-09 00:19] LABS: Basophils Absolute Auto 0.1 10^3/uL (0.0-0.1); Basophils Percent Auto 0.9 % (0.2-2.0); Eosinophils Absolute Auto 0.5 10^3/uL (0.0-0.7); Eosinophils Percent Auto 4.8 % (0.9-7.0); Hematocrit 45.7 % (42.0-54.0); Hemoglobin 15.9 g/dL (14.0-18.0); Immature Granulocytes Pct Auto 0.9 % (0.0-0.5); Lymphocytes Absolute Auto 3.8 10^3/uL (1.2-3.8); Mean Corpuscular HGB Conc 34.8 g/dL (29.9-35.2); Mean Corpuscular Hemoglobin 30.7 pg (25.9-34.0); Mean Corpuscular Volume 88.2 fL (80.0-94.0); Mean Platelet Volume 9.7 fL (9.5-13.5); Monocytes Absolute Auto 0.9 10^3/uL (0.3-0.8); Monocytes Percent Auto 7.9 % (1.7-12.0); Neutrophils Absolute Auto 5.5 10^3/uL (1.4-6.5); Neutrophils Percent Auto 50.5 % (43.0-75.0); Platelet Count 390 10^3/uL (150-450); Red Blood Count 5.18 10^6/uL (4.70-6.10); Red Cell Distribution Width 11.9 % (11.0-15.0); White Blood Count 10.9 10^3/uL (4.0-11.0)
[2024-09-09 00:27] LABS: Anion Gap 16.6; BUN Creatinine Ratio 13.6; Calcium 9.1 mg/dL (8.5-10.1); Carbon Dioxide 25.3 mmol/L (21.0-32.0); Chloride 105 mmol/L (98-107); Estimated GFR (African America >60 (>=60 mL/min/1.73m^2); Estimated GFR (Non-African Ame >60 (>=60 mL/min/1.73m^2); Glucose 106 mg/dL (74-106); Potassium 3.9 mmol/L (3.5-5.1); Sodium 143 mmol/L (136-145)
--- NOTE | 2024-09-09 00:54 | ED_ITS ---
HPI - SOB/Dyspnea General Chief Complaint: Shortness of Breath/Dyspnea Stated Complaint: shortness of breath, asthmatic Time Seen by Provider: 09/08/24 22:41 Source: patient Mode of arrival: Wheelchair Limitations: no limitations History of Present Illness HPI Narrative: Pt with history of asthma presents with shortness of breath and wheezing that worsened about 2 hours ago. he developed some nasal congestion and cough yesterday that was mild. He tried usng his home albutero without any improvement so brought him to the ED for evaluation. No fever or chills. No chest pain. he smokes and vapes daily. Related Data Home Medications ?Medication ?Instructions ?Recorded ?Confirmed albuterol sulfate 2.5 mg/3 mL mg 05/14/23 (0.083 %) solution for nebulization ibuprofen 800 mg tablet mg 05/14/23 Previous Rx's ?Medication ?Instructions ?Recorded ketorolac 10 mg tablet 10 mg PO TID PRN pain #10 tabs 08/30/23 methocarbamol 750 mg tablet 750 mg PO TID PRN pain #20 tabs 08/30/23 cephalexin 500 mg capsule 500 mg PO QID 10 days #40 caps 10/02/23 albuterol sulfate 2.5 mg/3 mL 2.5 mg (3 mL) inhalation QID PRN 07/23/24 (0.083 %) solution for nebulization shortness of breath or wheezing #75 mL albuterol sulfate 90 mcg/actuation 2 inh inhalation Q6H PRN shortness 07/23/24 aerosol inhaler of breath or wheezing #8.5 grams cephalexin 500 mg capsule 500 mg PO TID 7 days #21 caps 07/28/24 Allergies Allergy/AdvReac Type Severity Reaction Status Date / Time No Known Drug Allergies Allergy Verified 09/08/24 22:54 PFSH PFS Social History Smoking status: Heavy tobacco smoker Little interest or pleasure in doing things: not at all Feeling down, depressed, or hopeless: not at all Exam Narrative Exam Narrative: Nurses notes and vital signs reviewed and patient is not hypoxic. afebrile General: in mild distress. Skin: Warm, dry, no pallor noted. No rash. Head: Normocephalic, atraumatic. Neck: Supple, non-tender. No lymphadenopathy. Eye: Pupils are equal, round and EOMI. No scleral icterus. Ears, Nose, Mouth, and Throat: TM are clear, no posterior oropharynx erythema or nasal mucosal hypertrophy, uvula is mid-line Oral mucosa is moist Cardiovascular: Tachycardia. Respiratory: Accessory muscle use and mild respiratory distress. Lungs are decreased globally with expiratory wheezing Chest Wall: no tenderness or crepitus Musculoskeletal: normal ROM, no calf or popliteal tenderness, no lower extremity edema/swelling GI: Abdomen is soft, non-distended. Normal bowel sounds. No tenderness to palpation. No rebound, guarding, or rigidity noted. Neurological: A&O x4. No cranial nerve dysfunction observed. No truncal ataxia. Moves all extremities. Sensation intact. Psychiatric: Cooperative and interactive. Normal mood and affect. Constitutional Vital Signs, click to edit/add: Last Vital Signs Temp 97.9 F 09/08/24 22:48 Pulse 122 H 09/08/24 23:58 Resp 24 H 09/08/24 23:58 BP 95/81 09/08/24 22:48 Pulse Ox 99 09/08/24 23:58 O2 Del Method Nonrebreather 09/08/24 23:58 O2 Flow Rate 15 09/08/24 23:58 Course Vital Signs Vital signs: Vital Signs Pulse Oximetry 98 09/08/24 22:39 Oxygen Delivery Method Room Air 09/08/24 22:39 Temperature 97.9 F 09/08/24 22:48 Pulse Rate 122 H 09/08/24 23:58 Respiratory Rate 24 H 09/08/24 23:58 Blood Pressure 95/81 09/08/24 22:48 Pulse Oximetry 99 09/08/24 23:58 Oxygen Delivery Method Nonrebreather 09/08/24 23:58 Oxygen Delivery Flow Rate 15 09/08/24 23:58 MDM - SOB/Dyspnea MDM Narrative Medical decision making narrative: Patient was placed on oxygen. Patient was placed on phototypesetting equipment monitor and EKG obtained. Blood drawn and sent for evaluation. He was given a DuoNeb treatment and IM Solu-Medrol. He did not have much improvement so he was given additional albuterol nebulizer treatment and a peripheral IV was established and he was given 1 mg of Ativan due to anxiety. He was also placed on a nonrebreather for increased oxygen administration. On recheck at 00:22 he had increased air exchange and wheezing had subsided but he still had accessory muscle use and increased work of breathing. Labs and CXR unremarkable. 00:55 Call placed to the hospitalist to discuss admission as the patient is not improving rapidly enough to be able to be discharged home. 01:28 Spoke to Radha carrington for the hospitalist and after discussion, she agreed to admit the [facility], observation basis - she asked me to obtain swabs for influenza and covid. Pt informed of need for admission and was agreeable. Lab Data Attestation: I reviewed the patient's lab results. Labs: Lab Results 09/08/24 Range/Units 23:50 WBC 10.9 (4.0-11.0) 10^3/uL RBC 5.18 (4.70-6.10) 10^6/uL Hgb 15.9 (14.0-18.0) g/dL Hct 45.7 (42.0-54.0) % MCV 88.2 (80.0-94.0) fL MCH 30.7 (25.9-34.0) pg MCHC 34.8 (29.9-35.2) g/dL RDW 11.9 (11.0-15.0) % Plt Count 390 (150-450) 10^3/uL MPV 9.7 (9.5-13.5) fL Neut % (Auto) 50.5 (43.0-75.0) % Lymph % (Auto) 35.0 (20.5-60.0) % [place] % (Auto) 7.9 (1.7-12.0) % Eos % (Auto) 4.8 (0.9-7.0) % Baso % (Auto) 0.9 (0.2-2.0) % Neut # (Auto) 5.5 (1.4-6.5) 10^3/uL Lymph # (Auto) 3.8 (1.2-3.8) 10^3/uL [place] # (Auto) 0.9 H (0.3-0.8) 10^3/uL Eos # (Auto) 0.5 (0.0-0.7) 10^3/uL Baso # (Auto) 0.1 (0.0-0.1) 10^3/uL Abs Immat Gran (auto) 0.10 H (0.00-0.03) 10^3/uL Imm/Tot Granulo (auto) 0.9 H (0.0-0.5) % Sodium 143 (136-145) mmol/L Potassium 3.9 (3.5-5.1) mmol/L Chloride 105 (98-107) mmol/L Carbon Dioxide 25.3 (21.0-32.0) mmol/L Anion Gap 16.6 BUN 15.0 (7.0-18.0) mg/dL Creatinine 1.10 (0.70-1.30) mg/dL Est GFR ( Amer) >60 (>=60 mL/min/1.73m^2) Est GFR (Non-Af Amer) >60 (>=60 mL/min/1.73m^2) BUN/Creatinine Ratio 13.6 Glucose 106 (74-106) mg/dL Calcium 9.1 (8.5-10.1) mg/dL Imaging Data Chest x-ray: Radiologist's impression: ITS Impressions Chest X-Ray 09/08/24 23:41 IMPRESSION: No acute cardiopulmonary process in the chest. Electronically authenticated by: VIDHYA GARCIA Date: 09/09/2024 00:38 Discharge Plan Discharge Chief Complaint: Shortness of Breath/Dyspnea Clinical Impression: Asthma with acute exacerbation Patient Disposition: Admitted as Observation Time of Disposition Decision: 01:00
[2024-09-09 02:07] LABS: Influenza Virus A Antigen Negative; Influenza Virus B Antigen Negative; Internal Control Within Normal Limits; SARS-CoV-2 Ag NEGATIVE (NEGATIVE)
--- OUTSIDE RECORDS SUMMARY | 2024-09-09 02:22 | XMS_ITS | CCD ---
Author Organization [facility] Care Team Providers Care Bull Driver Name Role Phone Myra [phone] UNKNOWN Unavailable Unavailable Patten, Jose M R. [...] Unavailable Unavailable Blank, Donald S Unavailable Unavailable [place], Sammie A. Unavailable Unavailable [place], Sammie A. Unavailable Unavailable Shipman, Octavio Unavailable Unavailable [place], Sammie A. Unavailable Unavailable [place], Sammie A. Unavailable Unavailable Shipman, Octavio Unavailable Unavailable Provider, None Unavailable Unavailable Stalter, Vargas Unavailable Unavailable Stalter, Vargas Unavailable Unavailable Stalter, Vargas Unavailable Unavailable Stalter, Vargas Unavailable Unavailable Provider, None Unavailable Unavailable Provider, None Unavailable Unavailable [place], Neeraj R. Unavailable Unavailable Mei, Neeraj R. Unavailable Unavailable Provider, None Unavailable Unavailable [place], Neeraj R. Unavailable Unavailable Mei, Neeraj R. Unavailable Unavailable EBRAHEIM, OVI Unavailable Unavailable EBRAHEIM, OVI Unavailable Unavailable SELF, REFERRED Unavailable Unavailable SELF, REFERRED Unavailable Unavailable [place] Unavailable Unavailable EBRAHEIM, OVI Unavailable Unavailable [place] Unavailable Unavailable FIDENCIO RAY Unavailable Unavailable HAY, [...] Reference Range Facility OPERATIVE REPORTon OPERATIVE REPORT [facility] [address] [place] [address] OPERATIVE REPORT PATIENT NAME:WILLOW WILKES :1990 MED REC NO:[id number] ROOM:[facility] ([facility] ACCOUNT NO:[id number] ADMIT DATE:08/03/2024 PROVIDER:Donald Hinkle DO DATE OF [...] the flexor digitorum superficialis in zone 2. WALL WASHER: Pedro De La Fuente PA-C, assisted with [...] followup visit. DONALD HINKLE DO MTE/AQS Doc#: [id number] Normal [facility] BASIC METABOLIC PANLon 08-02 Anion gap [Moles/Vol] 8 mmol/L Normal 5-15 [facility] Comment on above: Performed By: #### 4 8066-5, BMP, 04074-6, CBCA #### [facility] ([id number]) [address] [place] [address] 52249 Calcium [Mass/Vol] 9.8 mg/dL Normal 8.5-10.5 [facility] Comment on above: Performed By: #### 4 8066-5, CECY, 68613-0, CBCA #### [facility] ([id number]) [address] [place] [address] 74355 Chloride [Moles/Vol] 99 mmol/L Normal 98-109 [facility] Comment on above: Performed By: #### 4 8066-5, CECY, 41130-5, CBCA #### [facility] ([id number]) [address] [place] [address] 40484 CO2 [Moles/Vol] 28 mmol/L Normal 22-32 [facility] Comment on above: Performed By: #### 4 8066-5, CECY, 70304-9, CBCA #### [facility] ([id number]) [address] [place] [address] 43117 Creatinine [Mass/Vol] 0.80 mg/dL Normal 0.60-1.30 [facility] Comment on above: Result Comment: METH OD TRACEABLE TO IDMS STANDARD Performed By: #### 4 8066-5, CECY, 79510-0, CBCA #### [facility] ([id number]) [address] [place] [address] 05308 eGFR (CKD-EPI) NON-RACE DEPENDENT >90 Normal >59 [facility] Comment on above: Result Comment: Reported eGFR is based on the CKD-EPI 2020 equation that does not use a race coefficient. Performed By: #### 4 8066-5, CECY, 22096-1, CBCA #### [facility] ([id number]) [address] [place] [address] 58137 Glucose [Mass/Vol] 94 mg/dL Normal 65-99 [facility] Comment on above: Performed By: #### 4 8066-5, CECY, 87860-8, CBCA #### [facility] ([id number]) [address] [place] [address] 50042 Potassium [Moles/Vol] 4.0 mmol/L Normal 3.5-5.0 [facility] Comment on above: Performed By: #### 4 8066-5, CECY, 17425-5, CBCA #### [facility] ([id number]) [address] [place] [address] 39271 Sodium [Moles/Vol] 135 mmol/L Normal 134-146 [facility] Comment on above: Performed By: #### 4 8066-5, CECY, 16290-2, CBCA #### [facility] ([id number]) [address] [place] [address] 97944 Urea nitrogen [Mass/Vol] 17 mg/dL Normal 5-23 [facility] Comment on above: Performed By: #### 4 8066-5, CECY, 44679-5, CBCA #### [facility] ([id number]) [address] [place] [address] 75116 CBC AND AUTO DIFFon 10-23-20 24 ABSOLUTE BASOPHIL 0.1 X10E9/L Normal 0.0-0.2 [facility] Comment on above: Performed By: #### 4 8066-5, CECY, 34089-5, CBCA #### [facility] ([id number]) [address] [place] [address] 98518 ABSOLUTE NEUTROPHIL 3.9 X10E9/L Normal 1.5-6.6 [facility] Comment on above: Performed By: #### 4 8066-5, BMP, 04110-7, CBCA #### [facility] ([id number]) [address] [place] [address] 89266 Basophils/100 WBC (Bld) 1.4 % Normal [facility] Comment on above: Performed By: #### 4 8066-5, [facility], 15713-9, CBCA #### [facility] ([id number]) [address] [place] [address] 85322 Eosinophils (Bld) [#/Vol] 0.8 10*3/uL High 0.0-0.4 [facility] Comment on above: Performed By: #### 4 8066-5, CECY, 07804-8, CBCA #### [facility] ([id number]) [address] [place] [address] 36413 Eosinophils/100 WBC (Bld) 10.9 % Normal [facility] Comment on above: Performed By: #### 4 8066-5, [facility], 52293-8, CBCA #### [facility] ([id number]) [address] [place] [address] 18625 Erythrocyte distribution width (RBC) [Ratio] 12.9 % Normal 11.5-15.0 [facility] Comment on above: Performed By: #### 4 8066-5, CECY, 63206-4, CBCA #### [facility] ([id number]) [address] [place] [address] 24989 Hematocrit (Bld) [Volume fraction] 45.2 % Normal 39-49 [facility] Comment on above: Performed By: #### 4 8066-5, CECY, 54050-4, CBCA #### [facility] ([id number]) [address] [place] [address] 43979 Hemoglobin (Bld) [Mass/Vol] 15.2 g/dL Normal 13.0-17.0 [facility] Comment on above: Performed By: #### 4 8066-5, BMP, 98365-2, CBCA #### [facility] ([id number]) [address] [place] [address] 35578 Lymphocytes (Bld) [#/Vol] 1.7 10*3/uL Normal 1.0-3.5 [facility] Comment on above: Performed By: #### 4 8066-5, CECY, 87008-4, CBCA #### [facility] ([id number]) [address] [place] [address] 64464 Lymphocytes/100 WBC (Bld) 24.7 % Normal [facility] Comment on above: Performed By: #### 4 8066-5, CECY, 80700-3, CBCA #### [facility] ([id number]) [address] [place] [address] 27441 MCH (RBC) [Entitic mass] 31.0 pg Normal 27-34 [facility] Comment on above: Performed By: #### 4 8066-5, CECY, 02637-2, CBCA #### [facility] ([id number]) [address] [place] [address] 34965 MCHC (RBC) [Mass/Vol] 33.7 g/dL Normal 32-36 [facility] Comment on above: Performed By: #### 4 8066-5, CECY, 55096-4, CBCA #### [facility] ([id number]) [address] [place] [address] 25313 MCV (RBC) [Entitic vol] 92 fL Normal 80-100 [facility] Comment on above: Performed By: #### 4 8066-5, CECY, 25063-5, CBCA #### [facility] ([id number]) [address] [place] [address] 91115 Monocytes (Bld) [#/Vol] 0.6 10*3/uL Normal 0-0.9 [facility] Comment on above: Performed By: #### 4 8066-5, BMP, 57957-2, CBCA #### [facility] ([id number]) [address] [place] [address] 55385 Monocytes/100 WBC (Bld) 7.9 % Normal [facility] Comment on above: Performed By: #### 4 8066-5, BMP, 82766-1, CBCA #### [facility] ([id number]) [address] [place] [address] 62688 Neutrophils/100 WBC (Bld) 55.1 % Normal [facility] Comment on above: Performed By: #### 4 8066-5, CECY, 51965-2, CBCA #### [facility] ([id number]) [address] [place] [address] 82012 Platelet mean volume (Bld) [Entitic vol] 8.4 fL Normal 7-12 [facility] Comment on above: Performed By: #### 4 8066-5, BMP, 86197-7, CBCA #### [facility] ([id number]) [address] [place] [address] 42434 Platelets (Bld) [#/Vol] 272 10*3/uL Normal 150-450 [facility] Comment on above: Performed By: #### 4 8066-5, BMP, 37580-1, CBCA #### [facility] ([id number]) [address] [place] [address] 44312 RBC COUNT 4.91 X10E12/L Normal 4.10-5.70 [facility] Comment on above: Performed By: #### 4 8066-5, BMP, 82232-9, CBCA #### [facility] ([id number]) [address] [place] [address] 33059 WBC (Bld) [#/Vol] 7.0 10*3/uL Normal 4.0-11.0 [facility] Comment on above: Performed By: #### 4 8066-5, BMP, 59832-0, CBCA #### [facility] ([id number]) [address] [place] [address] 68384 CBC AND AUTO DIFFon 06-22-20 24 ABSOLUTE BASOPHIL 0.1 X10E9/L Normal 0.0-0.2 [facility] Comment on above: Performed By: #### 3 0934-4, 3040-3, CMP, CBCA, 51100-0 ####[facility] ([id number])[address] [place] [address] 29931 ABSOLUTE NEUTROPHIL 2.9 X10E9/L Normal 1.5-6.6 [facility] Comment on above: Performed By: #### 3 0934-4, 3040-3, CMP, CBCA, 14137-4 ####[facility] ([id number])[address] [place] [address] 22514 Basophils/100 WBC (Bld) 0.7 % Normal [facility] Comment on above: Performed By: #### 3 0934-4, 3040-3, CMP, CBCA, 96749-6 ####[facility] ([id number])[address] [place] [address] 52497 Eosinophils (Bld) [#/Vol] 1.0 10*3/uL High 0.0-0.4 [facility] Comment on above: Performed By: #### 3 0934-4, 3040-3, CMP, CBCA, 94773-7 ####[facility] ([id number])[address] [place] [address] Eosinophils/100 WBC (Bld) 12.1 % Normal [facility] Comment on above: Performed By: #### 3 0934-4, 3040-3, CMP, CBCA, 08201-1 ####[facility] ([id number])[address] [place] [address] 49059 Erythrocyte distribution width (RBC) [Ratio] 13.2 % Normal 11.5-15.0 [facility] Comment on above: Performed By: #### 3 0934-4, 3040-3, CMP, CBCA, 26665-2 ####[facility] ([id number])[address] [place] [address] 98636 Hematocrit (Bld) [Volume fraction] 42.3 % Normal 39-49 [facility] Comment on above: Performed By: #### 3 0934-4, 3040-3, CMP, CBCA, 43867-1 ####[facility] ([id number])[address] [place] [address] 12442 Hemoglobin (Bld) [Mass/Vol] 14.5 g/dL Normal 13.0-17.0 [facility] Comment on above: Performed By: #### 3 0934-4, 3040-3, CMP, CBCA, 17672-2 ####[facility] ([id number])[address] [place] [address] 42365 Lymphocytes (Bld) [#/Vol] 3.1 10*3/uL Normal 1.0-3.5 [facility] Comment on above: Performed By: #### 3 0934-4, 3040-3, CMP, CBCA, 75160-6 ####[facility] ([id number])[address] [place] [address] 51585 Lymphocytes/100 WBC (Bld) 39.4 % Normal [facility] Comment on above: Performed By: #### 3 0934-4, 3040-3, CMP, CBCA, 24342-3 ####[facility] ([id number])[address] [place] [address] 31037 MCH (RBC) [Entitic mass] 31.1 pg Normal 27-34 [facility] Comment on above: Performed By: #### 3 0934-4, 3040-3, CMP, CBCA, 29253-5 ####[facility] ([id number])[address] [place] [address] 47910 MCHC (RBC) [Mass/Vol] 34.1 g/dL Normal 32-36 [facility] Comment on above: Performed By: #### 3 0934-4, 3040-3, CMP, CBCA, 68738-4 ####[facility] ([id number])[address] [place] [address] 09127 MCV (RBC) [Entitic vol] 91 fL Normal 80-100 [facility] Comment on above: Performed By: #### 3 0934-4, 3040-3, CMP, CBCA, 40772-3 ####[facility] ([id number])[address] [place] [address] 71882 Monocytes (Bld) [#/Vol] 0.9 10*3/uL Normal 0-0.9 [facility] Comment on above: Performed By: #### 3 0934-4, 3040-3, CMP, CBCA, 22382-1 ####[facility] ([id number])[address] [place] [address] 52880 Monocytes/100 WBC (Bld) 11.3 % Normal [facility] Comment on above: Performed By: #### 3 0934-4, 3040-3, CMP, CBCA, 67175-1 ####[facility] ([id number])[address] [place] [address] 29085 Neutrophils/100 WBC (Bld) 36.5 % Normal [facility] Comment on above: Performed By: #### 3 0934-4, 3040-3, CMP, CBCA, 48293-8 ####[facility] ([id number])[address] [place] [address] 87465 Platelet mean volume (Bld) [Entitic vol] 8.2 fL Normal 7-12 [facility] Comment on above: Performed By: #### 3 0934-4, 3040-3, CMP, CBCA, 47705-8 ####[facility] ([id number])[address] [place] [address] 32831 Platelets (Bld) [#/Vol] 285 10*3/uL Normal 150-450 [facility] Comment on above: Performed By: #### 3 0934-4, 3040-3, CMP, CBCA, 92943-4 ####[facility] ([id number])[address] [place] [address] 97895 RBC COUNT 4.65 X10E12/L Normal 4.10-5.70 [facility] Comment on above: Performed By: #### 3 0934-4, 3040-3, CMP, CBCA, 57143-5 ####[facility] ([id number])[address] [place] [address] 91610 WBC (Bld) [#/Vol] 7.9 10*3/uL Normal 4.0-11.0 [facility] Comment on above: Performed By: #### 3 0934-4, 3040-3, CMP, CBCA, 60713-1 ####[facility] ([id number])[address] [place] [address] 73487 COMPREHENSIVE METABOLIC PANE Eladio 06-22-2024 Albumin [Mass/Vol] 4.5 g/dL Normal 3.2-5.3 [facility] Comment on above: Performed By: #### 3 0934-4, 3040-3, CMP, CBCA, 58356-6 ####[facility] ([id number])[address] [place] [address] 47353 ALP [Catalytic activity/Vol] 62 U/L Normal 39-130 [facility] Comment on above: Performed By: #### 3 0934-4, 3040-3, CMP, CBCA, 83254-6 ####[facility] ([id number])[address] [place] [address] 51008 ALT [Catalytic activity/Vol] 30 U/L Normal 0-40 [facility] Comment on above: Performed By: #### 3 0934-4, 3040-3, CMP, CBCA, 52772-9 ####[facility] ([id number])[address] [place] [address] 77946 Anion gap [Moles/Vol] 9 mmol/L Normal 5-15 [facility] Comment on above: Performed By: #### 3 0934-4, 3040-3, CMP, CBCA, 97408-5 ####[facility] ([id number])[address] [place] [address] 26536 AST [Catalytic activity/Vol] 28 U/L Normal 0-41 [facility] Comment on above: Performed By: #### 3 0934-4, 3040-3, CMP, CBCA, 34005-4 ####[facility] ([id number])[address] [place] [address] 85394 Bilirubin [Mass/Vol] 0.7 mg/dL Normal 0.3-1.2 [facility] Comment on above: Performed By: #### 3 0934-4, 3040-3, CMP, CBCA, 75033-9 ####[facility] ([id number])[address] [place] [address] 02237 Calcium [Mass/Vol] 9.3 mg/dL Normal 8.5-10.5 [facility] Comment on above: Performed By: #### 3 0934-4, 3040-3, CMP, CBCA, 91945-4 ####[facility] ([id number])[address] [place] [address] 57609 Chloride [Moles/Vol] 101 mmol/L Normal 98-109 [facility] Comment on above: Performed By: #### 3 0934-4, 3040-3, CMP, CBCA, 70406-0 ####[facility] ([id number])[address] [place] [address] 15319 CO2 [Moles/Vol] 23 mmol/L Normal 22-32 [facility] Comment on above: Performed By: #### 3 0934-4, 3040-3, CMP, CBCA, 47171-9 ####[facility] ([id number])[address] [place] [address] 63615 Creatinine [Mass/Vol] 0.80 mg/dL Normal 0.70-1.20 [facility] Comment on above: Result Comment: METH OD TRACEABLE TO IDMS STANDARD Performed By: #### 3 0934-4, 3040-3, CMP, CBCA, 39138-1 ####[facility] ([id number])[address] [place] [address] 06750 eGFR (CKD-EPI) NON-RACE DEPENDENT >90 Normal >59 [facility] Comment on above: Result Comment: Reported eGFR is based on the CKD-EPI 2020 equation that does not use a race coefficient. Performed By: #### 3 0934-4, 3040-3, CMP, CBCA, 00112-9 ####[facility] ([id number])[address] [place] [address] 13662 Glucose [Mass/Vol] 103 mg/dL High 65-99 [facility] Comment on above: Performed By: #### 3 0934-4, 3040-3, CMP, CBCA, 58329-5 ####[facility] ([id number])[address] [place] [address] 27639 Potassium [Moles/Vol] 3.8 mmol/L Normal 3.5-5.0 [facility] Comment on above: Performed By: #### 3 0934-4, 3040-3, CMP, CBCA, 70205-7 ####[facility] ([id number])[address] [place] [address] 20430 Protein [Mass/Vol] 7.7 g/dL Normal 6.0-8.0 [facility] Comment on above: Performed By: #### 3 0934-4, 3040-3, CMP, CBCA, 41055-5 ####[facility] ([id number])[address] [place] [address] 47406 Sodium [Moles/Vol] 133 mmol/L Low 134-146 [facility] Comment on above: Performed By: #### 3 0934-4, 3040-3, CMP, CBCA, 20042-4 ####[facility] ([id number])[address] [place] [address] 58052 Urea nitrogen [Mass/Vol] 22 mg/dL Normal 5-23 [facility] Comment on above: Performed By: #### 3 0934-4, 3040-3, CMP, CBCA, 01735-3 ####[facility] ([id number])[address] [place] [address] 88250 LIPASEon 06-22-2024 Lipase [Catalytic activity/Vol] 30 U/L Normal 17-40 [facility] Comment on above: Performed By: #### 3 0934-4, 3040-3, CMP, CBCA, 16827-0 ####[facility] ([id number])[address] [facility], [place] [address] Natriuretic peptide B [Mass/ Vol]on 06-22-2024 BRN NATRIURETIC PEP <5 Normal <100.0 [facility] Comment on above: Performed By: #### 4 8066-5, BMP, 09826-1, CBCA #### [facility] ([id number]) [address] [facility], [place] [address] SARS/FLU A+B/RSV by NAAT/Mol ecularon 06-22-2024 SARS/FLU [...] operators who are performing tests using either GeneArara DX or GeneFTL SOLAR systems and is limited to laboratories that [...] specimen repeat. Fact Sheet for Healthcare Providers: https://www.fda.gov/media/11383 2/download Fact Sheet for Patients: https://www.fda.gov/media/38754 6/download Normal [facility] Comment on above: Performed By: #### 4 8066-5, [facility], 36188-2, CBCA #### [facility] ([id number]) [address] [place] [address] 97747 Troponin I.cardiac High sens itivity method [Mass/Vol]on 06-22-2024 1 HOUR TROP I, HIGH SENSITIVITY 2 ng/L Normal <21 [facility] Comment on above: Performed By: #### 4 8066-5, [facility], 45034-0, CBCA #### [facility] ([id number]) [address] [place] [address] 96664 TROPONIN I, HIGH SENSITIVITY <2 Normal <21 [facility] Comment on above: Performed By: #### 4 8066-5, [facility], 27435-3, CBCA #### [facility] ([id number]) [address] [place] [address] 10263 VENOUS BLOOD GASon 4 IMMANUEL'S TEST Normal [facility] Comment on above: Performed By: #### V BG ####[facility] ([id number])[address] [place] [address] 37996 Base excess Calc (Bld) [Moles/Vol] 2.0 mmol/L Normal 0.0-2.0 [facility] Comment on above: Performed By: #### V BG ####[facility] ([id number])[address] [place] [address] 06129 Body temperature 98.6 [degF] Normal 37.0 [facility] Comment on above: Performed By: #### V BG ####[facility] ([id number])[address] [place] [address], [place] [address] HCO3 (Bld) [Moles/Vol] 26.0 mmol/L High 20.0-24.0 [facility] Comment on above: Performed By: #### V BG ####[facility] ([id number])[address] [place] [address], [place] [address] Oxygen saturation in Blood 89.0 % Normal >80.0 [facility] Comment on above: Performed By: #### V BG ####[facility] ([id number])[address] [place] [address] [place] [address] OXYGEN SOURCE [employer]Air Normal [facility] Comment on above: Performed By: #### V BG ####[facility] ([id number])[address] [place] [address] [place] [address] PCO2, VENOUS 39.5 MMHG Normal 35-50 [facility] Comment on above: Performed By: #### V BG ####[facility] ([id number])[address] [place] [address], [place] [address] PH, VENOUS 7.426 High 7.320-7.42 0 [facility] Comment on above: Performed By: #### V BG ####[facility] ([id number])[address] [place] [address] [place] [address] PO2, VENOUS 55 MMHG High 30-50 [facility] Comment on above: Performed By: #### V BG ####[facility] ([id number])[address] [place] [address] [place] [address] SAMPLE SITE N/A Normal [facility] Comment on above: Performed By: #### V BG ####[facility] ([id number])[address] [place] [address] 07812 SAMPLE TYPE VENOUS Normal [facility] Comment on above: Performed By: #### V BG ####[facility] ([id number])[address] [place] [address] 04587 XR CHEST 2 VWSon 06-22-2024 XR CHEST [...] Berry MD on 06/22/2024 12:49 AM Normal [facility] CBC AND AUTO DIFFon 04-09-20 ABSOLUTE BASOPHIL 0.1 X10E9/L Normal 0.0-0.2 [facility] Comment on above: Performed By: #### Tamara PARKS CMP, 5643-2 #### [facility] ([id number]) [address] [place] [address] 15075 ABSOLUTE NEUTROPHIL 3.0 X10E9/L Normal 1.5-6.6 [facility] Comment on above: Performed By: #### Tamara PARKS CMP, 5643-2 #### [facility] ([id number]) [address] [place] [address] 09519 Basophils/100 WBC (Bld) 1.1 % Normal [facility] Comment on above: Performed By: #### Tamara PARKS CMP, 5643-2 #### [facility] ([id number]) [address] [place] [address] 33035 Eosinophils (Bld) [#/Vol] 0.5 10*3/uL High 0.0-0.4 [facility] Comment on above: Performed By: #### Tamara PARKS CMP, 5643-2 #### [facility] ([id number]) [address] [place] [address] 14868 Eosinophils/100 WBC (Bld) 7.1 % Normal [facility] Comment on above: Performed By: #### Tamara PARKS CMP, 5643-2 #### [facility] ([id number]) [address] [place] [address] 47015 Erythrocyte distribution width (RBC) [Ratio] 13.2 % Normal 11.5-15.0 [facility] Comment on above: Performed By: #### Tamara PARKS CMP, 5643-2 #### [facility] ([id number]) [address] [place] [address] 71371 Hematocrit (Bld) [Volume fraction] 43.8 % Normal 39-49 [facility] Comment on above: Performed By: #### Tamara PARKS CMP, 5643-2 #### [facility] ([id number]) [address] [place] [address] 24922 Hemoglobin (Bld) [Mass/Vol] 15.1 g/dL Normal 13.0-17.0 [facility] Comment on above: Performed By: #### Tamara PARKS CMP, 5643-2 #### [facility] ([id number]) [address] [place] [address] 77314 Lymphocytes (Bld) [#/Vol] 2.9 10*3/uL Normal 1.0-3.5 [facility] Comment on above: Performed By: #### Tamara PARKS CMP, 5643-2 #### [facility] ([id number]) [address] [place] [address] 56335 Lymphocytes/100 WBC (Bld) 42.1 % Normal [facility] Comment on above: Performed By: #### Tamara PARKS CMP, 5643-2 #### [facility] ([id number]) [address] [place] [address] 53977 MCH (RBC) [Entitic mass] 31.5 pg Normal 27-34 [facility] Comment on above: Performed By: #### Tamara PARKS CMP, 5643-2 #### [facility] ([id number]) [address] [place] [address] 54948 MCHC (RBC) [Mass/Vol] 34.4 g/dL Normal 32-36 [facility] Comment on above: Performed By: #### Tamara PARKS CMP, 5643-2 #### [facility] ([id number]) [address] [place] [address] 49067 MCV (RBC) [Entitic vol] 92 fL Normal 80-100 [facility] Comment on above: Performed By: #### Tamara PARKS CMP, 5643-2 #### [facility] ([id number]) [address] [place] [address] 03882 Monocytes (Bld) [#/Vol] 0.4 10*3/uL Normal 0-0.9 [facility] Comment on above: Performed By: #### Tamara PARKS CMP, 5643-2 #### [facility] ([id number]) [address] [place] [address] 10133 Monocytes/100 WBC (Bld) 6.3 % Normal [facility] Comment on above: Performed By: #### Tamara PARKS CMP, 5643-2 #### [facility] ([id number]) [address] [place] [address] 20956 Neutrophils/100 WBC (Bld) 43.4 % Normal [facility] Comment on above: Performed By: #### Tamara PARKS CMP, 5643-2 #### [facility] ([id number]) [address] [place] [address] 72537 Platelet mean volume (Bld) [Entitic vol] 7.7 fL Normal 7-12 [facility] Comment on above: Performed By: #### C BCA, CMP, 5643-2 #### [facility] ([id number]) [address] [place] [address] 74113 Platelets (Bld) [#/Vol] 292 10*3/uL Normal 150-450 [facility] Comment on above: Performed By: #### C CHARLY, CMP, 5643-2 #### [facility] ([id number]) [address] [place] [address] 84566 RBC COUNT 4.78 X10E12/L Normal 4.10-5.70 [facility] Comment on above: Performed By: #### Tamara PARKS, CMP, 5643-2 #### [facility] ([id number]) [address] [place] [address] 72016 WBC (Bld) [#/Vol] 6.8 10*3/uL Normal 4.0-11.0 [facility] Comment on above: Performed By: #### Tamara PARKS, CMP, 5643-2 #### [facility] ([id number]) [address] [place] [address] 82129 COMPREHENSIVE METABOLIC PANE Eladio 04-09-2024 Albumin [Mass/Vol] 4.6 g/dL Normal 3.2-5.3 [facility] Comment on above: Performed By: #### Tamara PARKS, CMP, 5643-2 #### [facility] ([id number]) [address] [place] [address] 64134 ALP [Catalytic activity/Vol] 57 U/L Normal 39-130 [facility] Comment on above: Performed By: #### C BCA, CMP, 5643-2 #### [facility] ([id number]) [address] [place] [address] 35768 ALT [Catalytic activity/Vol] 42 U/L High 0-40 [facility] Comment on above: Performed By: #### Tamara BCA, CMP, 5643-2 #### [facility] ([id number]) [address] [place] [address] 71932 Anion gap [Moles/Vol] 8 mmol/L Normal 5-15 [facility] Comment on above: Performed By: #### Tamara PARKS CMP, 5643-2 #### [facility] ([id number]) [address] [place] [address] 82080 AST [Catalytic activity/Vol] 44 U/L High 0-41 [facility] Comment on above: Performed By: #### Tamara PARKS CMP, 5643-2 #### [facility] ([id number]) [address] [place] [address] 01699 Bilirubin [Mass/Vol] 0.2 mg/dL Low 0.3-1.2 [facility] Comment on above: Performed By: #### Tamara PARKS CMP, 5643-2 #### [facility] ([id number]) [address] [place] [address] 99081 Calcium [Mass/Vol] 8.3 mg/dL Low 8.5-10.5 [facility] Comment on above: Performed By: #### Tamara PARKS [facility], 5643-2 #### [facility] ([id number]) [address] [place] [address] 84088 Chloride [Moles/Vol] 108 mmol/L Normal 98-109 [facility] Comment on above: Performed By: #### Tamara PARKS CMP, 5643-2 #### [facility] ([id number]) [address] [place] [address] 83248 CO2 [Moles/Vol] 21 mmol/L Low 22-32 [facility] Comment on above: Performed By: #### Tamara PARKS CMP, 5643-2 #### [facility] ([id number]) [address] [place] [address] 30270 Creatinine [Mass/Vol] 1.00 mg/dL Normal 0.70-1.20 [facility] Comment on above: Result Comment: METH OD TRACEABLE TO IDMS STANDARD Performed By: #### Tamara PARKS CMP, 5643-2 #### [facility] ([id number]) [address] [place] [address] 11162 eGFR (CKD-EPI) NON-RACE DEPENDENT >90 Normal >59 [facility] Comment on above: Result Comment: Reported eGFR is based on the CKD-EPI 2020 equation that does not use a race coefficient. Performed By: #### C LYDIA PARKS, 5643-2 #### [facility] ([id number]) [address] [place] [address] 43808 Glucose [Mass/Vol] 99 mg/dL Normal 65-99 [facility] Comment on above: Performed By: #### Tamara PARKS CMP, 5643-2 #### [facility] ([id number]) [address] [place] [address] 38828 Potassium [Moles/Vol] 3.6 mmol/L Normal 3.5-5.0 [facility] Comment on above: Performed By: #### Tamara PARKS CMP, 5643-2 #### [facility] ([id number]) [address] [place] [address] 19754 Protein [Mass/Vol] 8.0 g/dL Normal 6.0-8.0 [facility] Comment on above: Performed By: #### Tamara PARKS CMP, 5643-2 #### [facility] ([id number]) [address] [place] [address] 17585 Sodium [Moles/Vol] 137 mmol/L Normal 134-146 [facility] Comment on above: Performed By: #### Tamara PARKS CMP, 5643-2 #### [facility] ([id number]) [address] [place] [address] 39923 Urea nitrogen [Mass/Vol] 15 mg/dL Normal 5-23 [facility] Comment on above: Performed By: #### C [facility], 5643-2 #### [facility] ([id number]) [address] [place] [address], [place] [address] CT ABDOMEN AND PELVIS W CONT on [...] Tidwell MD on 04/09/2024 3:10 AM Normal [facility] CT BRAIN WO CONTon CT BRAIN WO [...] Tidwell MD on 04/09/2024 2:39 AM Normal [facility] CT CERVICAL SPINE WO CONTon 04-09-2024 CT [...] Tidwell MD on 04/09/2024 2:40 AM Normal [facility] CT CHEST W CONTon 04-09-2024 CT CHEST [...] Tidwell MD on 04/09/2024 3:21 AM Normal [facility] CT LUMBAR RECONSTRUCTIONon 0 04-09-2024 CT LUMBAR [...] Tidwell MD on 04/09/2024 3:06 AM Normal [facility] CT THORACIC RECONSTRUCTIONon 04-09-2024 CT THORACIC RECONSTRUCTION [...] Tidwell MD on 04/09/2024 3:23 AM Normal [facility] Ethanol [Mass/Vol]on 024 ETHANOL 0.34 g/dL High 0.00-0.08 [facility] Comment on above: Result Comment: This report is intended for use in clinical monitoring or management of patients. Performed By: #### C BCA, CMP, 5643-2 #### [facility] ([id number]) [address] [place] [address] 11802 BASIC METABOLIC PANLon 03-03 Anion gap [Moles/Vol] 10 mmol/L Normal 5-15 [facility] Comment on above: Performed By: #### 4 8066-5, BMP, 52384-3, CBCA #### [facility] ([id number]) [address] [place] [address] 13443 Calcium [Mass/Vol] 9.2 mg/dL Normal 8.5-10.5 [facility] Comment on above: Performed By: #### 4 8066-5, BMP, 86664-0, CBCA #### [facility] ([id number]) [address] [place] [address] 45778 Chloride [Moles/Vol] 102 mmol/L Normal 98-109 [facility] Comment on above: Performed By: #### 4 8066-5, BMP, 33305-0, CBCA #### [facility] ([id number]) [address] [place] [address] 58079 CO2 [Moles/Vol] 23 mmol/L Normal 22-32 [facility] Comment on above: Performed By: #### 4 8066-5, BMP, 80833-9, CBCA #### [facility] ([id number]) [address] [place] [address] 79128 Creatinine [Mass/Vol] 0.79 mg/dL Normal 0.70-1.20 [facility] Comment on above: Result Comment: METH OD TRACEABLE TO IDMS STANDARD Performed By: #### 4 8066-5, CECY, 42882-9, CBCA #### [facility] ([id number]) [address] [place] [address] 07806 eGFR (CKD-EPI) NON-RACE DEPENDENT >90 Normal >59 [facility] Comment on above: Result Comment: Reported eGFR is based on the CKD-EPI 2020 equation that does not use a race coefficient. Performed By: #### 4 8066-5, CECY, 58448-7, CBCA #### [facility] ([id number]) [address] [place] [address] 75147 Glucose [Mass/Vol] 109 mg/dL High 65-99 [facility] Comment on above: Performed By: #### 4 8066-5, CECY, 47687-8, CBCA #### [facility] ([id number]) [address] [place] [address] 99606 Potassium [Moles/Vol] 4.5 mmol/L Normal 3.5-5.0 [facility] Comment on above: Performed By: #### 4 8066-5, CECY, 18735-1, CBCA #### [facility] ([id number]) [address] [place] [address] 91313 Sodium [Moles/Vol] 135 mmol/L Normal 134-146 [facility] Comment on above: Performed By: #### 4 8066-5, CECY, 04424-1, CBCA #### [facility] ([id number]) [address] [place] [address] 80566 Urea nitrogen [Mass/Vol] 15 mg/dL Normal 5-23 [facility] Comment on above: Performed By: #### 4 8066-5, BMP, 73913-3, CBCA #### [facility] ([id number]) [address] [place] [address] 96718 CBC AND AUTO DIFFon 05-24-20 24 ABSOLUTE BASOPHIL 0.0 X10E9/L Normal 0.0-0.2 [facility] Comment on above: Performed By: #### 4 8066-5, BMP, 48910-6, CBCA #### [facility] ([id number]) [address] [place] [address] 92636 ABSOLUTE NEUTROPHIL 6.9 X10E9/L High 1.5-6.6 [facility] Comment on above: Performed By: #### 4 8066-5, BMP, 06106-0, CBCA #### [facility] ([id number]) [address] [place] [address] 98474 Basophils/100 WBC (Bld) 0.4 % Normal [facility] Comment on above: Performed By: #### 4 8066-5, BMP, 86050-9, CBCA #### [facility] ([id number]) [address] [place] [address] 18518 Eosinophils (Bld) [#/Vol] 0.2 10*3/uL Normal 0.0-0.4 [facility] Comment on above: Performed By: #### 4 8066-5, BMP, 40925-2, CBCA #### [facility] ([id number]) [address] [place] [address] 79377 Eosinophils/100 WBC (Bld) 2.2 % Normal [facility] Comment on above: Performed By: #### 4 8066-5, BMP, 80716-2, CBCA #### [facility] ([id number]) [address] [place] [address] 46833 Erythrocyte distribution width (RBC) [Ratio] 13.4 % Normal 11.5-15.0 [facility] Comment on above: Performed By: #### 4 8066-5, CECY, 76791-8, CBCA #### [facility] ([id number]) [address] [place] [address] 33812 Hematocrit (Bld) [Volume fraction] 47.2 % Normal 39-49 [facility] Comment on above: Performed By: #### 4 8066-5, CECY, 81965-6, CBCA #### [facility] ([id number]) [address] [place] [address] 63731 Hemoglobin (Bld) [Mass/Vol] 16.2 g/dL Normal 13.0-17.0 [facility] Comment on above: Performed By: #### 4 8066-5, CECY, 87060-2, CBCA #### [facility] ([id number]) [address] [place] [address] 12860 Lymphocytes (Bld) [#/Vol] 1.1 10*3/uL Normal 1.0-3.5 [facility] Comment on above: Performed By: #### 4 8066-5, CECY, 45040-7, CBCA #### [facility] ([id number]) [address] [place] [address] 03537 Lymphocytes/100 WBC (Bld) 13.0 % Normal [facility] Comment on above: Performed By: #### 4 8066-5, CECY, 12566-4, CBCA #### [facility] ([id number]) [address] [place] [address] 85972 MCH (RBC) [Entitic mass] 30.9 pg Normal 27-34 [facility] Comment on above: Performed By: #### 4 8066-5, CECY, 78789-1, CBCA #### [facility] ([id number]) [address] [place] [address] 12182 MCHC (RBC) [Mass/Vol] 34.2 g/dL Normal 32-36 [facility] Comment on above: Performed By: #### 4 8066-5, BMP, 77480-5, CBCA #### [facility] ([id number]) [address] [place] [address] 80173 MCV (RBC) [Entitic vol] 90 fL Normal 80-100 [facility] Comment on above: Performed By: #### 4 8066-5, BMP, 44844-4, CBCA #### [facility] ([id number]) [address] [place] [address] 11050 Monocytes (Bld) [#/Vol] 0.2 10*3/uL Normal 0-0.9 [facility] Comment on above: Performed By: #### 4 8066-5, BMP, 16976-4, CBCA #### [facility] ([id number]) [address] [place] [address] 25496 Monocytes/100 WBC (Bld) 2.3 % Normal [facility] Comment on above: Performed By: #### 4 8066-5, BMP, 32072-1, CBCA #### [facility] ([id number]) [address] [place] [address] 67874 Neutrophils/100 WBC (Bld) 82.1 % Normal [facility] Comment on above: Performed By: #### 4 8066-5, BMP, 61221-0, CBCA #### [facility] ([id number]) [address] [place] [address] 85492 Platelet mean volume (Bld) [Entitic vol] 8.0 fL Normal 7-12 [facility] Comment on above: Performed By: #### 4 8066-5, BMP, 56211-3, CBCA #### [facility] ([id number]) [address] [place] [address] 61830 Platelets (Bld) [#/Vol] 329 10*3/uL Normal 150-450 [facility] Comment on above: Performed By: #### 4 8066-5, CECY, 88868-0, CBCA #### [facility] ([id number]) [address] [place] [address] 32391 RBC COUNT 5.22 X10E12/L Normal 4.10-5.70 [facility] Comment on above: Performed By: #### 4 8066-5, CECY, 92028-4, CBCA #### [facility] ([id number]) [address] [place] [address] 51865 WBC (Bld) [#/Vol] 8.4 10*3/uL Normal 4.0-11.0 [facility] Comment on above: Performed By: #### 4 8066-5, CECY, 72837-2, CBCA #### [facility] ([id number]) [address] [place] [address] 68179 Fibrin D-dimer DDU (PPP) [Ma ss/Vol]on 03-03-2024 D DIMER <150 Normal <255 [facility] Comment on above: Result Comment: Results <255 ng/mL DDU: The presence of a VTE can safely be excluded with a negative D-Dimer result and Wells score. A negative result doesn't exclude the possibility of DIC. The test be repeated along with other diagnostic tests if the patient's symptoms persist or worsen. [email or web address] Performed By: #### 4 8066-5, CECY, 94907-9, CBCA #### [facility] ([id number]) [address] [place] [address] 10421 Troponin I.cardiac High sens itivity method [Mass/Vol]on 03-03-2024 TROPONIN I, HIGH SENSITIVITY 2 ng/L Normal <21 [facility] Comment on above: Performed By: #### 4 8066-5, BMP, 47537-5, CBCA #### [facility] ([id number]) [address] [facility] [place] [address] XR CHEST 1 VWon 03-03-2024 XR CHEST [...] Branch MD on 03/03/2024 6:25 AM Normal [facility] XR TOE RT GREAT TOE MIN 2 [...] Lucas MD on 12/15/2023 4:46 PM Normal [facility] XR TOE RT GREAT TOE MIN 2 [...] Loya MD on 11/28/2023 10:51 PM Normal [facility] COVID-19 PCRon 05-28-2020 SARS-CoV-2, TARIQ Not Detected Normal Not Detected [facility] Comment on above: Result Comment: This test was developed and its performance characteristics determined by [employer]. This test has not been FDA cleared [...] assay. Performed By: #### L ACT #### [facility] [address] [place] [address] Mary Aly AMMONIAon 04-05-2020 Ammonia (P) [Mass/Vol] 26 umol/L Normal 10-30 [facility] Comment on above: Performed By: #### A MM #### [facility] [address] [place], [place] [address] Mary Aly CARDIAC JENNIFER ADMITon 020 CK [Catalytic activity/Vol] 229 U/L Critically high 55-170 [facility] Comment on above: Result Comment: test repeated critical value verified Performed By: #### L ACT #### [facility] [address] [place], [place] [address] Mary Aly CK.MB [Mass/Vol] 1.95 ng/mL Normal <=2.37 [facility] Comment on above: Performed By: #### L ACT #### [facility] [address] [place], [place] [address] Mary Aly INR Coag (Bld) [Relative time] SEE BELOW Normal [facility] Comment on above: Result Comment: <0.0 34 ng/ml NEGATIVE 0.034-0.119 INDETERMINATE 0.120 AMI CUT OFF Performed By: #### L ACT #### [facility] [address] [place] [address] Mary Aly PAIGE 88.0 ng/mL Normal <=121.0 [facility] Comment on above: Performed By: #### L ACT #### [facility] [address] [place], [place] [address] Mary Sheeba TROP <0.012 Normal <=0.034 [facility] Comment on above: Performed By: #### L ACT #### [facility] [address] [place], [place] [address] Mary Varelaen CBC AUTO DIFFon 04-05-2020 Basophils (Bld) [#/Vol] 0.1 103/ul Normal 0.0-0.1 [facility] Comment on above: Performed By: #### C BC #### [facility] [address] [place], [place] [address] Mary Aly Basophils/100 WBC (Bld) 1.1 % Normal 0.2-2.0 [facility] Comment on above: Performed By: #### C BC #### [facility] [address] [place], [place] [address] Mary Sheeba Eosinophils (Bld) [#/Vol] 0.8 103/ul Critically high 0.0-0.7 [facility] Comment on above: Performed By: #### C BC #### [facility] [address] [place], [place] [address] Mary Sheeba Eosinophils/100 WBC (Bld) 6.1 % Normal 0.9-7.0 [facility] Comment on above: Performed By: #### C BC #### [facility] [address] [place], [place] [address] Mary Sheeba Erythrocyte distribution width (RBC) [Ratio] 12.6 % Normal 11.0-15.0 [facility] Comment on above: Performed By: #### C BC #### [facility] [address] [place] [address] Mary Sheeba Hematocrit (Bld) [Volume fraction] 45.1 % Normal 42.0-54.0 [facility] Comment on above: Performed By: #### C BC #### [facility] [address] [place] [address] Mary Sheeba Hemoglobin (Bld) [Mass/Vol] 15.6 g/dL Normal 14.0-18.0 [facility] Comment on above: Performed By: #### C BC #### [facility] [address] [place], [place] [address] Mary Sheeba IG # 0.07 10e3/ul Critically high 0.00-0.03 [facility] Comment on above: Performed By: #### C BC #### [facility] [address] [place], [place] [address] Mary Sheeba IG % 0.6 % Critically high 0.0-0.5 [facility] Comment on above: Performed By: #### C BC #### [facility] [address] [place], [place] [address] Mary Sheeba Lymphocytes (Bld) [#/Vol] 4.7 103/ul Critically high 1.2-3.8 [facility] Comment on above: Performed By: #### C BC #### [facility] [address] [place], [place] [address] Mary Sheeba Lymphocytes/100 WBC (Bld) 38.2 % Normal 20.5-60.0 [facility] Comment on above: Performed By: #### C BC #### [facility] [address] [place], [place] [address] Mary Sheeba MANUAL DIFF REQ NO Normal [facility] Comment on above: Performed By: #### C BC #### [facility] [address] [place], [place] [address] Mary Sheeba MCH (RBC) [Entitic mass] 31.8 pg Normal 25.9-34.0 [facility] Comment on above: Performed By: #### C BC #### [facility] [address] [place], [place] [address] Mary Sheeba MCHC (RBC) [Mass/Vol] 34.6 g/dL Normal 29.9-35.2 [facility] Comment on above: Performed By: #### C BC #### [facility] [address] [place], [place] [address] Mary Sheeba MCV (RBC) [Entitic vol] 92.0 fL Normal 80.0-94.0 [facility] Comment on above: Performed By: #### C BC #### [facility] [address] [place], [place] [address] Mary Sheeba Monocytes (Bld) [#/Vol] 0.8 103/ul Normal 0.3-0.8 [facility] Comment on above: Performed By: #### C BC #### [facility] [address] [place], [place] [address] Mary Sheeba Monocytes/100 WBC (Bld) 6.8 % Normal 1.7-12.0 [facility] Comment on above: Performed By: #### C BC #### [facility] [address] [place], [place] [address] Mary Sheeba Neutrophils (Bld) [#/Vol] 5.8 103/ul Normal 1.4-6.5 [facility] Comment on above: Performed By: #### C BC #### [facility] [address] [place], [place] [address] Mary Sheeba Neutrophils/100 WBC (Bld) 47.2 % Normal 43.0-75.0 [facility] Comment on above: Performed By: #### C BC #### [facility] [address] [place], [place] [address] Mary Aly Platelet mean volume (Bld) [Entitic vol] 9.9 fL Normal 9.5-13.5 [facility] Comment on above: Performed By: #### C BC #### [facility] [address] [place], [place] [address] Mary Aly Platelets (Bld) [#/Vol] 293 103/ul Normal 150-450 [facility] Comment on above: Performed By: #### C BC #### [facility] [address] [place], [place] [address] Mary Aly RBC (Bld) [#/Vol] 4.90 106/ul Normal 4.70-6.10 [facility] Comment on above: Performed By: #### C BC #### [facility] [address] [place], [place] [address] Mary Aly WBC (Bld) [#/Vol] 12.3 103/ul Critically high 4.0-11.0 [facility] Comment on above: Performed By: #### C BC #### [facility] [address] [place], [place] [address] Mary Aly D-DIMERon 04-05-2020 D-DIMER COMMENTS SEE BELOW Normal [facility] Comment on above: Result Comment: Incr [...] hospitalization. Performed By: #### L ACT #### [facility] [address] [place] [address] Mary Aly Fibrin D-dimer FEU IA (Bld) [Mass/Vol] 0.29 ug/mL Normal 0.19-0.50 [facility] Comment on above: Performed By: #### L ACT #### [facility] [address] [place] [address] Mary Sheeba DRUG SCREEN RAPID (URINE)on 04-05-2020 AMP Negative Normal NEGATIVE [facility] Comment on above: Performed By: #### L ACT #### [facility] [address] [place] [address] Mary Sheeba BAR Negative Normal NEGATIVE [facility] Comment on above: Performed By: #### L ACT #### [facility] [address] [place] [address] [facility] Negative Normal NEGATIVE [facility] Comment on above: Performed By: #### L ACT #### [facility] [address] [place] [address] [facility] BZO Negative Normal NEGATIVE [facility] Comment on above: Performed By: #### L ACT #### [facility] [address] [place] [address] [facility] ADAMARIS Negative Normal NEGATIVE [facility] Comment on above: Performed By: #### L ACT #### [facility] [address] [place] [address] CUT-OFFS SEE BELOW Normal [facility] Comment on above: Result Comment: AMP [...] ng/mL Performed By: #### L ACT #### [facility] [address] [place] [address] DRUG CUT HEADER DRUG CLASS TEST SYST EM CUT-OFF CONCENTRATIONS ARE FOLLOWS: Normal [facility] Comment on above: Performed By: #### L ACT #### [facility] Laboratory [address] [place] [address] Mary Sheeba mAMP Negative Normal NEGATIVE [facility] Comment on above: Performed By: #### L ACT #### [facility] [address] [place] [address] Mary Sheeba MTD Negative Normal NEGATIVE [facility] Comment on above: Performed By: #### L ACT #### [facility] [address] [place] [address] Mary Sheeba OPI Negative Normal NEGATIVE [facility] Comment on above: Performed By: #### L ACT #### [facility] [address] [place] [address] Mary Sheeba OXY Negative Normal NEGATIVE [facility] Comment on above: Performed By: #### L ACT #### [facility] [address] [place] [address] Mary Sheeba PCP Negative Normal NEGATIVE [facility] Comment on above: Performed By: #### L ACT #### [facility] [address] [place] [address] Mary Sheeba PPX Negative Normal NEGATIVE [facility] Comment on above: Performed By: #### L ACT #### [facility] [address] [place] [address] Mary Sheeba TCA Negative Normal NEGATIVE [facility] Comment on above: Performed By: #### L ACT #### [facility] [address] [place] [address] Mary Sheeba THC Negative Normal NEGATIVE [facility] Comment on above: Performed By: #### L ACT #### [facility] [address] [place] [address] Mary Sheeba ETHANOL (BLD ALC)on 04-05-20 20 Ethanol [Mass/Vol] NOTE: 80 mg/dl is th e legal limit for a blood alcohol level Normal [facility] Comment on above: Performed By: #### E TH #### [facility] [address] [place] [address] Mary Sheeba Ethanol [Mass/Vol] 242 mg/dL Normal [facility] Comment on above: Performed By: #### E TH #### [facility] [address] [place], [place] [id number] Mary Aly PROF 14(COMP METB)on 020 Albumin [Mass/Vol] 4.0 g/dL Normal 3.5-5.0 [facility] Comment on above: Performed By: #### L ACT #### [facility] [address] [place], [place] [id number] Mary Sheeba Albumin/Globulin [Mass ratio] 1.1 {ratio} Normal [facility] Comment on above: Performed By: #### L ACT #### [facility] [address] [place], [place] [id number] Maryjong Aly ALP [Catalytic activity/Vol] 74 U/L Normal 38-126 [facility] Comment on above: Performed By: #### L ACT #### [facility] [address] [place], [place] [id number] Mary Sheeba ALT [Catalytic activity/Vol] 37 U/L Normal 21-72 [facility] Comment on above: Performed By: #### L ACT #### [facility] [address] [place], [place] [id number] Mary Aly Anion gap [Moles/Vol] 19.2 mmol/L Normal [facility] Comment on above: Performed By: #### L ACT #### [facility] [address] [place], [place] [id number] Mary Sheeba AST [Catalytic activity/Vol] 31 U/L Normal 17-59 [facility] Comment on above: Performed By: #### L ACT #### [facility] [address] [place], [place] [id number] Mary Sheeba Bilirubin Ql (U) 0.3 mg/dL Normal 0.2-1.3 [facility] Comment on above: Performed By: #### L ACT #### [facility] [address] [place], [place] [id number] Mary Sheeba Calcium [Mass/Vol] 8.6 mg/dL Normal 8.4-10.2 [facility] Comment on above: Performed By: #### L ACT #### [facility] [address] [address] Mary Sheeba Chloride [Moles/Vol] 105 mmol/L Normal 98-107 [facility] Comment on above: Performed By: #### L ACT #### [facility] [address] [address] Mary Sheeba CO2 [Moles/Vol] 22.5 mmol/L Normal 22.0-30.0 [facility] Comment on above: Performed By: #### L ACT #### [facility] [address] [place] [address] Mary Sheeba Creatinine [Mass/Vol] 0.79 mg/dL Normal 0.66-1.25 [facility] Comment on above: Performed By: #### L ACT #### [facility] [address] [place] [address] Mary Sheeba EGFR-AF EGYPTIAN >60 Normal >=60 [facility] Comment on above: Performed By: #### L ACT #### [facility] [address] [place] [address] Mary Sheeba EGFR-NON AF EGYPTIAN >60 Normal >=60 [facility] Comment on above: Performed By: #### L ACT #### [facility] [address] [place] [address] Mary Sheeba Globulin (S) [Mass/Vol] 3.8 g/dL Normal [facility] Comment on above: Performed By: #### L ACT #### [facility] [address] [place] [address] Mary Sheeba Glucose [Mass/Vol] 103 mg/dL Normal 74-106 [facility] Comment on above: Performed By: #### L ACT #### [facility] [address] [place] [address] Mary Sheeba Potassium [Moles/Vol] 3.7 mmol/L Normal 3.4-5.0 [facility] Comment on above: Result Comment: slig htly hemolyzed Performed By: #### L ACT #### [facility] [address] [address] Mary Sheeba Protein [Mass/Vol] 7.8 g/dL Normal 6.1-8.2 [facility] Comment on above: Performed By: #### L ACT #### [facility] [address] [id number] Mary Aly Sodium [Moles/Vol] 143 mmol/L Normal 137-145 [facility] Comment on above: Performed By: #### L ACT #### [facility] [address] [address] Mary Sheeba Urea nitrogen [Mass/Vol] 6.0 mg/dL Critically low 9.0-20.0 [facility] Comment on above: Performed By: #### L ACT #### [facility] [address] [address] Mary Sheeba Urea nitrogen/Creatinin e [Mass ratio] 7.6 mg/mg Normal [facility] Comment on above: Performed By: #### L ACT #### [facility] [address] [id number] Mary Varelaen XR CHEST 1 Von 04-05-2020 [...] by: KELLY THOMAS Date: 2020-04-05 21:34 [address] [facility] CT ABD/PELV W CONon 03-25-20 20 [...] JUSTIN ALEMAN Date: 2020-03-24 23:05 Normal [facility] AMYLASEon 03-24-2020 Amylase [Catalytic activity/Vol] 37 U/L Normal 31-110 [facility] Comment on above: Performed By: #### C MP, DARIAN, LIPA #### [facility] [address] [place], [place] [address] Mary Sheeba CBC AUTO DIFFon 03-24-2020 Basophils (Bld) [#/Vol] 0.1 103/ul Normal 0.0-0.1 [facility] Comment on above: Performed By: #### C BC #### [facility] [address] [place] [address] Mary Sheeba Basophils/100 WBC (Bld) 0.6 % Normal 0.2-2.0 [facility] Comment on above: Performed By: #### C BC #### [facility] [address] [place] [address] Mary Sheeba Eosinophils (Bld) [#/Vol] 0.4 103/ul Normal 0.0-0.7 [facility] Comment on above: Performed By: #### C BC #### [facility] [address] [place], [place] [address] Mary Sheeba Eosinophils/100 WBC (Bld) 3.1 % Normal 0.9-7.0 [facility] Comment on above: Performed By: #### C BC #### [facility] [address] [place] [address] Mary Sheeba Erythrocyte distribution width (RBC) [Ratio] 12.7 % Normal 11.0-15.0 [facility] Comment on above: Performed By: #### C BC #### [facility] [address] [place] [address] Mary Aly Hematocrit (Bld) [Volume fraction] 47.5 % Normal 42.0-54.0 [facility] Comment on above: Performed By: #### C BC #### [facility] [address] [place] [address] Mary Aly Hemoglobin (Bld) [Mass/Vol] 16.2 g/dL Normal 14.0-18.0 [facility] Comment on above: Performed By: #### C BC #### [facility] [address] [place] [address] Maryjong Aly IG # 0.06 10e3/ul Critically high 0.00-0.03 [facility] Comment on above: Performed By: #### C BC #### [facility] [address] [place] [address] Mary Aly IG % 0.5 % Normal 0.0-0.5 [facility] Comment on above: Performed By: #### C BC #### [facility] [address] [place] [address] Mary Aly Lymphocytes (Bld) [#/Vol] 2.2 103/ul Normal 1.2-3.8 [facility] Comment on above: Performed By: #### C BC #### [facility] [address] [place] [address] Mary Aly Lymphocytes/100 WBC (Bld) 17.1 % Critically low 20.5-60.0 [facility] Comment on above: Performed By: #### C BC #### [facility] [address] [place], [place] [id number] Mary Aly MANUAL DIFF REQ NO Normal [facility] Comment on above: Performed By: #### C BC #### [facility] [address] [place] [address] Mary Aly MCH (RBC) [Entitic mass] 31.9 pg Normal 25.9-34.0 [facility] Comment on above: Performed By: #### C BC #### [facility] [address] [place], [place] [id number] Maryjong Aly MCHC (RBC) [Mass/Vol] 34.1 g/dL Normal 29.9-35.2 [facility] Comment on above: Performed By: #### C BC #### [facility] [address] [place], [place] [id number] Mary Sheeba MCV (RBC) [Entitic vol] 93.5 fL Normal 80.0-94.0 [facility] Comment on above: Performed By: #### C BC #### [facility] [address] [place], [place] [id number] Mary Sheeba Monocytes (Bld) [#/Vol] 0.9 103/ul Critically high 0.3-0.8 [facility] Comment on above: Performed By: #### C BC #### [facility] [address] [place] [address] Mary Sheeba Monocytes/100 WBC (Bld) 6.5 % Normal 1.7-12.0 [facility] Comment on above: Performed By: #### C BC #### [facility] [address] [place], [place] [id number] Mary Sheeba Neutrophils (Bld) [#/Vol] 9.5 103/ul Critically high 1.4-6.5 [facility] Comment on above: Performed By: #### C BC #### [facility] [address] [place], [place] [id number] Mary Sheeba Neutrophils/100 WBC (Bld) 72.2 % Normal 43.0-75.0 [facility] Comment on above: Performed By: #### C BC #### [facility] [address] [place], [place] [id number] Mary Sheeba Platelet mean volume (Bld) [Entitic vol] 10.5 fL Normal 9.5-13.5 [facility] Comment on above: Performed By: #### C BC #### [facility] [address] [place], [place] [address] Mary Aly Platelets (Bld) [#/Vol] 271 103/ul Normal 150-450 [facility] Comment on above: Performed By: #### C BC #### [facility] [address] [place], [place] [address] Mary Aly RBC (Bld) [#/Vol] 5.08 106/ul Normal 4.70-6.10 [facility] Comment on above: Performed By: #### C BC #### [facility] [address] [place], [place] [address] Mary Aly WBC (Bld) [#/Vol] 13.1 103/ul Critically high 4.0-11.0 [facility] Comment on above: Performed By: #### C BC #### [facility] [address] [place], [place] [address] Mary Aly LACTATE/LACTIC ACIDon 2019 Lactate [Moles/Vol] 0.8 mmol/L Normal 0.7-2.0 [facility] Comment on above: Performed By: #### L ACT #### [facility] [address] [place] [address] Maryjong Aly LIPASEon 03-24-2020 Lipase [Catalytic activity/Vol] 123.0 U/L Normal 23.0-300.0 [facility] Comment on above: Performed By: #### C REJI DARIAN, LIPA #### [facility] [address] [place], [place] [id number] Maryjong Varelaen PROF 14(COMP METB)on 020 Albumin [Mass/Vol] 4.5 g/dL Normal 3.5-5.0 [facility] Comment on above: Performed By: #### C MP, DARIAN, LIPA #### [facility] [address] [place], [place] [id number] Mary Sheeba Albumin/Globulin [Mass ratio] 1.2 {ratio} Normal [facility] Comment on above: Performed By: #### C MP DARIAN, LIPA #### [facility] [address] [place], [place] [address] Mary Sheeba ALP [Catalytic activity/Vol] 69 U/L Normal 38-126 [facility] Comment on above: Performed By: #### C MP, DARIAN, LIPA #### [facility] [address] [place] [address] Mary Sheeba ALT [Catalytic activity/Vol] 27 U/L Normal 21-72 [facility] Comment on above: Performed By: #### C MP, DARIAN, LIPA #### [facility] [address] [place] [address] Mary Sheeba Anion gap [Moles/Vol] 13.0 mmol/L Normal [facility] Comment on above: Performed By: #### C REJI, DARAIN, LIPA #### [facility] [address] [place] [address] Mary Sheeba AST [Catalytic activity/Vol] 19 U/L Normal 17-59 [facility] Comment on above: Performed By: #### C REJI DARIAN, LIPA #### [facility] [address] [place] [address] Mary Sheeba Bilirubin Ql (U) 0.4 mg/dL Normal 0.2-1.3 [facility] Comment on above: Performed By: #### C REJI DARIAN, LIPA #### [facility] [address] [place] [address] Mary Sheeba Calcium [Mass/Vol] 10.0 mg/dL Normal 8.4-10.2 [facility] Comment on above: Performed By: #### C REJI DARIAN, LIPA #### [facility] [address] [place] [address] Mary Sheeba Chloride [Moles/Vol] 100 mmol/L Normal 98-107 [facility] Comment on above: Performed By: #### C MP, DARIAN, LIPA #### [facility] [address] [place] [address] Mary Sheeba CO2 [Moles/Vol] 27.7 mmol/L Normal 22.0-30.0 [facility] Comment on above: Performed By: #### C MP, DARIAN, LIPA #### [facility] [address] [place], [place] [address] Mary Sheeba Creatinine [Mass/Vol] 0.70 mg/dL Normal 0.66-1.25 [facility] Comment on above: Performed By: #### C DARIAN MENDOZA LIPA #### [facility] [address] [place] [address] Mary Sheeba EGFR-AF EGYPTIAN >60 Normal >=60 [facility] Comment on above: Performed By: #### C DARIAN MENODZA, LIPA #### [facility] [address] [place] [address] Mary Sheeba EGFR-NON AF EGYPTIAN >60 Normal >=60 [facility] Comment on above: Performed By: #### C DARIAN MENDOZA, LIPA #### [facility] [address] [place] [address] Mary Sheeba Globulin (S) [Mass/Vol] 3.8 g/dL Normal [facility] Comment on above: Performed By: #### C DARIAN MENDOZA, LIPA #### [facility] [address] [place] [address] Mary Hseeba Glucose [Mass/Vol] 103 mg/dL Normal 74-106 [facility] Comment on above: Performed By: #### C DARIAN MENDOZA, LIPA #### [facility] [address] [place] [address] Mary Sheeba Potassium [Moles/Vol] 3.7 mmol/L Normal 3.4-5.0 [facility] Comment on above: Performed By: #### C DARIAN MENDOZA, LIPA #### [facility] [address] [place] [address] Mary Sheeba Protein [Mass/Vol] 8.3 g/dL Critically high 6.1-8.2 [facility] Comment on above: Performed By: #### C DARIAN MENDOZA, LIPA #### [facility] [address] [place] [address] Mary Sheeba Sodium [Moles/Vol] 137 mmol/L Normal 137-145 [facility] Comment on above: Performed By: #### C DARIAN MENDOZA, LIPA #### [facility] [address] [place] [address] Mary Sheeba Urea nitrogen [Mass/Vol] 13.0 mg/dL Normal 9.0-20.0 [facility] Comment on above: Performed By: #### C DARIAN MENDOZA LIPA #### [facility] [address] [address] Mary Aly Urea nitrogen/Creatinin e [Mass ratio] 18.6 mg/mg Normal [facility] Comment on above: Performed By: #### C DARIAN MENDOZA LIPA #### [facility] [address] [address] Mary Aly XR ABD FLAT UP_PA Abiola [...] by: LISA NUNN Date: 2020-03-24 21:01 Normal [facility] Coding Summary.on 11-12-2017 Coding Summary. CODING DATE: 018 FINAL [facility] STATUS: Home (Routine DC) PAYOR: Medicaid [...] Blanc Date Saved: 11/12/2017 08:29 am Normal [facility] Coding Summary.on 10-29-2017 Coding Summary. CODING DATE: FINAL [facility] STATUS: Home (Routine DC) PAYOR: Medicaid [...] Blanc Date Saved: 10/29/2017 07:50 am Normal [facility] Coding Summary.on 10-19-2017 Coding Summary. CODING DATE: [facility] STATUS: Home w/ Home Health PAYOR: Medicaid Grouper: 872 MS-DRG SEPTICEMIA OR SEVERE SEPSIS W/O MV >96 HOURS W/O DETENTION Low Trim 0 High Trim 999 720 [...] dependence, cigarettes, uncomplicated PROCEDURES DOCTOR NAME DATE [id number] Drainage of Lower Back, Jose M Kumar MD 10/08/2017 Approach NOTE: The code number assigned matches the documented diagnosis and / or procedure in the patient's chart. However, the narrative phrase printed from the coding software may appear abbreviated, or result in slightly different terminology. Coded By: Toña Espinosa Date Saved: 10/19/2017 02:22 pm Normal [facility] Discharge Summaryon 10-16-19 18 Discharge Summary Patient: Alexx WILKES Age: 27 years Sex: Male : 1990 Associated Diagnoses: None Author: [facility], [facility] Information Discharge Summary Information: [...] serum enzymes Prescription and Home Meds: acetaminophen-hydrocodone (Blackwell 325 mg-5 mg oral tablet) See Instructions, [...] fluid. Mild paralumbar tenderness.. Integumentary: Warm, Dry, Ruso. Neurologic: Alert, Oriented. Psychiatric: Cooperative, Appropriate mood & affect. Hospital Course 27-year-old male with no significant past medical history presented with complaints of left flank and left lower back pain of about 2-3 weeks duration associated with fever, chills and nausea. He was subsequently admitted to [facility] with sepsis secondary to left paralumbar MSSA [...] reviewed with patient, called to pharmacy. Normal [facility] Comment on above: Result Comment: Elec tronically Signed By: Sushant DC, Chekofo\.br\Date and Time Signed: 10/16/17 13:50 EST Inpatient Clinical Summaryon 10-16-2017 Inpatient Clinical Summary [place] [address] Clinical Summary Person Information:Name: WILLOW WILKES Age: 27 Years : 1990 12:00 AM Sex: Male PCP: Myra Middleton MD Marital Status:Single Race:White Ethnicity:Non- or Language:Tanzanian Visit Id: Visit Reason:Increased heart rate; Nausea; Dizziness; Pain in back; CELLULITIS, PHLEGMON, TACHYCARDIA Speciality: Acuity: 3 Enc Type: Inpatient Med Service: Medical Arrival:10/05/2017 5:35 PM Discharge: Dispo Type: Admitted as IP to this Hosp Address:[address] [place] [id number] Provider Notes: Diagnosis:Cellulitis of lower back; Elevated [...] Immunizations Documented This Visit Final Med List:acetaminophen-hydrocodone (Blackwell 325 mg-5 mg oral tablet) 1 - [...] Follow up:With: Address: When: Myra Middleton [address] [phone] Business (1) Within 5 to 7 days Comments: Call for followup appointment. No answer With: Address: When: [address] [place] [address] Business (1) Within 2 weeks Comments: Call for followup appointment. Office computer is down right now. Call Wednesday for appointment With: Address: When: Jose M Patten [address] [place] [address], [address] [place] [address] Business (1) 10/28/17 09:55:00 Comments: Call for followup appointment With: Address: When: Wound Clinic: [facility] [phone] 10/14/17 08:00:00 Comments: Keep scheduled appointment Patient Education Information: Cellulitis, Uuia-tq-EezhYunfqo, Blackwell 5/325 Tab Normal [facility] Inpatient Patient Summaryon 10-16-2017 Inpatient Patient Summary [address] [address] Patient Discharge Instructions PERSON INFORMATION Name: WILLOW WILKES Date of : 1990 12:00 AM Current Date: 10/16/17 12:14:08 PHYSICIANS Admitting Physician: Luis F [facility]avides [facility] Kane [facility] Comment: Discharge Diagnosis: Cellulitis of lower [...] NoneFollow up:With: Address: When: Myra Middleton [address] [place] [address] Business (1) Within 5 to 7 days Comments: Call for followup appointment. No answer With: Address: When: Donald [address]yr [address] [place] [address] Business (1) Within 2 weeks Comments: Call for followup appointment. Office computer is down right now. Call Wednesday for appointment With: Address: When: Jose M Patten [facility] [address], [address] [place] [address] Business (1) 10/28/17 09:55:00 Comments: Call for followup appointment With: Address: When: Wound Clinic: [facility] [phone] 10/14/17 08:00:00 Comments: Keep scheduled appointment In the event that this physician does not participate in your insurance network, please consult with your insurance company to find a nearby participating provider. Comment: I, WILLOW WILKES, have received the attached patient education materials/instructions and have verbalized understanding:Patient Signature Date Clinican/Nurse Signature Date HERE ARE THE MEDICATION CHANGES THAT OCCURRED DURING YOUR HOSPITAL STAY [facility] [address] [facility] [address], [phone]-hydrocodone (Blackwell 325 mg-5 mg oral tablet) 1 - [...] THIS WITH YOU AT ALL TIMES. acetaminophen-hydrocodone (Blackwell 325 mg-5 mg oral tablet) 1 - [...] 02/11/2015 Document Reviewed: 12/12/2012ExitCare? Patient Information ?2015 [employer]. This information is not intended to replace [...] may report side effects to FDA at 9-224-WME-3789. What other drugs will affect cephalexin?Other drugs may interact with cephalexin, including prescription and rxgh-ven-jlgbuzc medicines, vitamins, and herbal products. Tell each [...] to ensure that the information provided by [employer]. ('[employer]') is accurate, up-to-date, and complete, but no guarantee is made to that effect. Drug information contained herein may be time sensitive. [employer] information has been compiled for use by healthcare practitioners and consumers in the [place] and therefore [employer] does not warrant that uses outside of the [place] are appropriate, unless specifically indicated otherwise. [employer]'s drug information does not endorse drugs, diagnose patients or recommend therapy. [employer] drug information is an informational resource designed [...] effective or appropriate for any given patient. [employer] does not assume any responsibility for any aspect of healthcare administered with the aid of information [employer] provides. The information contained herein is not intended to cover all possible uses, directions, precautions, warnings, drug interactions, allergic reactions, or adverse effects. If you have questions about the drugs you are taking, check with your doctor, nurse or pharmacist. Copyright [id number] [employer]. Version: 9.01. Revision Date: 01/26/2017.acetaminophen and hydrocodone (a SEET a MIN oh fen and pete droe KOE done)Hycet, Lorcet, Lortab 10/325, Lortab 5/325, Lortab 7.5/325, Lortab Elixir, Blackwell, Verdrocet, Vicodin, Xodol, Zamicet What is the [...] may report side effects to FDA at [phone].What other drugs will affect acetaminophen and hydrocodone?Narcotic [...] with acetaminophen and hydrocodone, including prescription and vxtp-xod-bgznnum medicines, vitamins, and herbal products. Not all [...] to ensure that the information provided by [employer], LIVELENZ. ('[employer]') is accurate, up-to-date, and complete, but no guarantee is made to that effect. Drug information contained herein may be time sensitive. [employer] information has been compiled for use by healthcare practitioners and consumers in the [place] and therefore [employer] does not warrant that uses outside of the [place] are appropriate, unless specifically indicated otherwise. [employer]'s drug information does not endorse drugs, diagnose patients or recommend therapy. [employer] drug information is an informational resource designed [...] effective or appropriate for any given patient. [employer] does not assume any responsibility for any aspect of healthcare administered with the aid of information [employer] provides. The information contained herein is not intended to cover all possible uses, directions, precautions, warnings, drug interactions, allergic reactions, or adverse effects. If you have questions about the drugs you are taking, check with your doctor, nurse or pharmacist. Copyright [id number] [employer]. Version: 14.11. Revision Date: 07/09/2016. Thank you for choosing [facility] Normal [facility] Interdisciplinary Note - Brett e Manageron 10-15-2017 Interdisciplinary Note - Lock Master Daily rounds completed with hospitalist Dr. Canchola, MARY Cuellar, Pharmacist Maryjane present. Patient alert and oriented, involved in POC. Discussed medications, labs, and tests. Pt remains in isolation. No family present at this time. Patient?s goal is to return home with [facility] at discharge. Anticipated discharge yet to be determined, awaiting wound vac authorization from [place] [employer]. Contact and goal information updated on white board. Praveen [facility] Progress Note-Physicianon Progress Note-Physician Patient: WILLOW WILKES [...] (4)ceFAZolin 2 gram 50 mL, IV Piggyback, z9qawizwbdhu sodium 100 mg Cap [F] 100 mg 1 cap(s), Oral, BIDnicotine 14 mg/24 hr Transderm ER Film [F] 14 mg 1 patch(es), TransDermal, DailySodium Chloride 0.9% 500 mL 500 mL, IVContinuous: (1)Lactated Ringers 1,000 mL 1,000 mL, IV, 20 mL/hrPRN: (6)acetaminophen 325 mg Tab UD [F] 650 mg 2 tab(s), Oral, w0yittfjkypvnnqov-wmjaclwrs 325 mg-5 mg Tab [F] 1 tab(s), Oral, o2pwppiaevucf 0.083% Inh Mary 3 mL [F] 2.5 mg 3 mL, NEB, m9dzhfptrgrbg CFC free 90 mcg/inh Inh Aer w/Adapt 8.5 gm [F] 180 microgram 2 puff(s), Inhalation, i7pqplbsqynp 2 mg/mL preservative-free SOLN [F] 2 mg 1 mL, IV Push, r5iamlvpduhgphi 2 mg/mL Inj [F] 4 mg 2 mL, IV Push, q6hr Problem list: All ProblemsImpaired skin integrity / SNOMED CT 81376939 / ConfirmedProblem added on documentation of skin impairments.At risk for falls / SNOMED CT 577028705 / PossibleProblem added when Risk for Falls Careplan was initiated.Smoker / IMO 200713 / ConfirmedAdded secondary to documentation in Social History.Resolved: Asthma / SNOMED CT 077108479 Histories Past Medical History: ResolvedAsthma ([id number]): Resolved. Family History: AsthmaMother Procedure history: Incision AND drainage (SNOMED CT 150407848) performed by Jose M Patten MD on 10/08/2017 at 27 Years.Comments:10/08/2017 19:32 - Magda RN, Julieta IGLESIAS AND D AND IRRIGATION LEFT LOWER BACK ABCESS 10 X 15 CMIncision AND drainage (SNOMED CT 606311422).Comments:10/06/2017 06:12 - Philippe Cabezas RN right hand Social History Social & Psychosocial AecqqsBqtusqf80/26/2017 Risk Assessment: Denies Alcohol UseSubstance Abuse10/05/2017 Risk Assessment: Denies Substance KqediZyrckuo03/26/2017 Risk Assessment: High Risk10/05/2017 Use: Current Every [...] Delarosa MD on October 08, 2017 08:58 [facility] info: [id number], [facility], Inpatient, 10/05/2017 - . Condition: [...] wound VAC. Awaiting precertification by insurance. Normal [facility] Comment on above: Result Comment: Elec tronically [...] (4)ceFAZolin 2 gram 50 mL, IV Piggyback, f2xvithcakbz sodium 100 mg Cap [F] 100 mg 1 cap(s), Oral, BIDnicotine 14 mg/24 hr Transderm ER Film [F] 14 mg 1 patch(es), TransDermal, DailySodium Chloride 0.9% 500 mL 500 mL, IVContinuous: (1)Lactated Ringers 1,000 mL 1,000 mL, IV, 20 mL/hrPRN: (6)acetaminophen 325 mg Tab UD [F] 650 mg 2 tab(s), Oral, h3pwktaltjldagapd-gkvdogyct 325 mg-5 mg Tab [F] 1 tab(s), Oral, j9azqvcbkkqid 0.083% Inh Mary 3 mL [F] 2.5 mg 3 mL, NEB, k6kcpevnudmdy CFC free 90 mcg/inh Inh Aer w/Adapt 8.5 gm [F] 180 microgram 2 puff(s), Inhalation, f3kkxuiorunl 2 mg/mL preservative-free SOLN [F] 2 mg 1 mL, IV Push, k3ntvzzzbskalym 2 mg/mL Inj [F] 4 mg 2 mL, IV Push, q6hr Problem list: All ProblemsAt risk for falls / SNOMED CT 672164577 / PossibleProblem added when Risk for Falls Careplan was initiated.Impaired skin integrity / SNOMED CT 76661274 / ConfirmedProblem added on documentation of skin impairments.Smoker / IMO [id number] / ConfirmedAdded secondary to documentation in Social [...] dc for total 3 weeks. . Normal [facility] Comment on above: Result Comment: Elec tronically [...] information updated on white board. [facility] Progress Note-Physicianon Progress Note-Physician Patient: WILLOW [...] (4)ceFAZolin 2 gram 50 mL, IV Piggyback, r2olpfsvjjyg sodium 100 mg Cap [F] 100 mg 1 cap(s), Oral, BIDnicotine 14 mg/24 hr Transderm ER Film [F] 14 mg 1 patch(es), TransDermal, DailySodium Chloride 0.9% 500 mL 500 mL, IVContinuous: (1)Lactated Ringers 1,000 mL 1,000 mL, IV, 20 mL/hrPRN: (6)acetaminophen 325 mg Tab UD [F] 650 mg 2 tab(s), Oral, s7dxcwxrzmdzlfmqo-mwkjvgtvu 325 mg-5 mg Tab [F] 1 tab(s), Oral, b9mvaulprdgnu 0.083% Inh Mary 3 mL [F] 2.5 mg 3 mL, NEB, q7mxcbsnadjkx CFC free 90 mcg/inh Inh Aer w/Adapt 8.5 gm [F] 180 microgram 2 puff(s), Inhalation, v1gfqlkmswbs 2 mg/mL preservative-free SOLN [F] 2 mg 1 mL, IV Push, r6mirdsololktvy 2 mg/mL Inj [F] 4 mg 2 mL, IV Push, q6hr Problem list: All ProblemsImpaired skin integrity / SNOMED CT 62397046 / ConfirmedProblem added on documentation of skin impairments.At risk for falls / SNOMED CT 371034368 / PossibleProblem added when Risk for Falls Careplan was initiated.Smoker / IMO [id number] / ConfirmedAdded secondary to documentation in Social History.Resolved: Asthma / SNOMED CT 054749717 Histories Past Medical History: ResolvedAsthma ([id number]): Resolved. Family History: AsthmaMother Procedure history: Incision AND drainage (SNOMED CT 488729616) performed by Jose M Patten MD on 10/08/2017 at 27 Years.Comments:10/08/2017 19:32 - Magda RN, Julieta IGLESIAS AND Musa AND IRRIGATION LEFT LOWER BACK ABCESS 10 X 15 CMIncision AND drainage (SNOMED CT 875876123).Comments:10/06/2017 06:12 - Raulito THOMPSON, Philippe right hand Social History Social & Psychosocial BgzcpuYsefvcr06/26/2017 Risk Assessment: Denies Alcohol UseSubstance Abuse10/05/2017 Risk Assessment: Denies Substance JhlyvGtakron07/26/2017 Risk Assessment: High Risk10/05/2017 Use: Current Every [...] Delarosa MD on October 08, 2017 08:58 [facility] info: [id number], [facility], Inpatient, 10/05/2017 - . Condition: [...] wound VAC. Awaiting precertification by insurance. Normal [facility] Comment on above: Result Comment: Elec tronically [...] days.Performing LocationsR1: This test was performed at: [facility], [address] [place] [address], [address] [place] [address] Comment on above: Performed By: #### 1 [id number], [id number], [id number], 8594972, 08909301, 2640217, 4690946 ####[address] [address] Bacteria culture MicrobiologyPROCEDUR E: Blood Culture [R1] Blood BODY SITE: Arm RCOLLECTED DATE/TIME: 10/05/2017 23:08 EST RECEIVED DATE/TIME: 10/06/2017 01:00 ESTSTART DATE/TIME: 10/06/2017 01:00 EST FREE TEXT SOURCE: Peripheral vein site #1Hwalter Mcfadden, Анна Torres M.D., Анна HFINAL REPORTSFinal Report [] Verified Date/Time: 10/13/2017 03:00 ESTNo growth at 7 days.Performing LocationsR1: This test was performed at: [facility], [address] [place] [address], [address] [place] [address] Comment on above: Performed By: #### 1 [id number], 1336268, 70864918, 6866640, 30210095, 9989237, 5713258 ####[facility] [address] [place] [address] Interdisciplinary Note - Brett e Manageron 10-13-2017 Interdisciplinary Note - Lock Master Daily rounds completed with hospitalist Dr. Canchola, MARY Cuellar, Pharmacist Maryjane, Visual Education Teacher Damaris, and RN present. Patient alert and oriented, involved in POC. Discussed medications, labs, and tests. No family present at this time. Patient?s goal is to return home with [facility] wound Vac at discharge. Anticipated discharge yet to be determined, awaiting wound vac authorization. Contact and goal information updated on white board. Normal [facility] Progress Note-Physicianon Progress Note-Physician Patient: WILLOW WILKES [...] (4)ceFAZolin 2 gram 50 mL, IV Piggyback, p1yjstnoxycb sodium 100 mg Cap [F] 100 mg 1 cap(s), Oral, BIDnicotine 14 mg/24 hr Transderm ER Film [F] 14 mg 1 patch(es), TransDermal, DailySodium Chloride 0.9% 500 mL 500 mL, IVContinuous: (1)Lactated Ringers 1,000 mL 1,000 mL, IV, 20 mL/hrPRN: (5)acetaminophen 325 mg Tab UD [F] 650 mg 2 tab(s), Oral, z5gckgnwdiuea 0.083% Inh Mary 3 mL [F] 2.5 mg 3 mL, NEB, c8ooyxkqrbwgs CFC free 90 mcg/inh Inh Aer w/Adapt 8.5 gm [F] 180 microgram 2 puff(s), Inhalation, c7ccnsfjpwis 2 mg/mL preservative-free SOLN [F] 4 mg 2 mL, IV Push, a8kpzjjvodbyhmw 2 mg/mL Inj [F] 4 mg 2 mL, IV Push, q6hr Problem list: All ProblemsImpaired skin integrity / SNOMED CT 31708505 / ConfirmedProblem added on documentation of skin impairments.At risk for falls / SNOMED CT 947934181 / PossibleProblem added when Risk for Falls Careplan was initiated.Smoker / IMO 106484 / ConfirmedAdded secondary to documentation in Social History.Resolved: Asthma / SNOMED CT 534011622 Histories Past Medical History: ResolvedAsthma ([id number]): Resolved. Family History: AsthmaMother Procedure history: Incision AND drainage (SNOMED CT 020148231) performed by Jose M Patten MD on 10/08/2017 at 27 Years.Comments:10/08/2017 19:32 - Magda RN, Julieta NI AND D AND IRRIGATION LEFT LOWER BACK ABCESS 10 X 15 CMIncision AND drainage (SNOMED CT 085439210).Comments:10/06/2017 06:12 - Philippe Cabezas RN right hand Social History Social & Psychosocial KuguwpAxyxyem12/26/2017 Risk Assessment: Denies Alcohol UseSubstance Abuse10/05/2017 Risk Assessment: Denies Substance GidhxElgsjcw10/26/2017 Risk Assessment: High Risk10/05/2017 Use: Current Every [...] Delarosa MD on October 08, 2017 08:58 [facility] info: [id number], [facility], Inpatient, 10/05/2017 - . Condition: Fair. [...] VAC. Awaiting precertification by insurance. [facility] Comment on above: Result Comment: Elec tronically Signed By: Sushant DC, Juan Pablo\.br\Date and Time Signed: 10/13/17 11:01 EST Interdisciplinary Note - Brett e Manageron 10-12-2017 Interdisciplinary Note - Lock Master Daily rounds completed with hospitalist Dr. Canchola, MARY Cuellar, Pharmacist Maryjane, Visual Education Teacher Damaris, and Dara THOMPSON present. Patient alert and oriented, involved in POC. Discussed medications, labs, and tests. Await Dr. Patten and ID recommendations. Oral Atbx at d/c. No family present at this time. Patient?s goal is to return home with [facility] at discharge. Anticipated discharge yet to be determined, possibly later today. Contact and goal information updated on white board. [facility] Main OR Intraoperative Recor don 10-12-2017 Main OR Intraoperative Record IntraOp Document Type FT Summary Primary Physician: Jose M Patten MD Finalized Date/Time: 10/12/17 11:18:39 Pt. Name: WILLOW WILKES/Sex: 1990 Male Med Rec #: [id number] Physician: Анна Torres M.D. Financial #: [id number] Pt. Type: I Room/Bed: S321/01 Admit/Disch: 10/05/17 17:35:00 - Institution: Case Times FT Entry 1 Patient Times In Room 10/08/17 14:16:00 Out Room 10/08/17 14:46:00 Procedure Times Start 10/08/17 14:25:00 Stop 10/08/17 14:39:00 Anesthesia Times Start 10/08/17 14:16:00 Stop 10/08/17 14:46:00 Last Modified By: Vi Ambriz CST 10/08/17 14:46:55 General Comments: 10/12/2017 Chart opened to review and send charges Chadd matcher operator Case Attendance FT Entry 1 Entry 2 Entry 3 Case Attendee Nabil SHETTY, Claudia Patten MD, Jose M Zayas RN, Darron Cardoso Role Performed Anesthesiologist of Surgeon - Primary Geography Teacher - Primary Record Time In 10/08/17 14:16:00 [...] 6 Case Attendee Kenroy ARANGON, RN, Ben WARDROBE MANAGER, Junior Downey RN, CNOR, CRNFA, Yoselin ONC, Sharmaine Role Performed Geography Teacher - Other Scrub - Primary Geography Teacher - Other Time In 10/08/17 14:16:00 10/08/17 [...] and tissue Entry 1 Skin Integrity Intact, Ruso, Warm, and Skin Abnormality Yes Dry Abnormality [...] RN Patient Status Stable Skin. Condition Intact, Ruso, Warm, and Description EXCEPT FOR OPERATIVE Dry [...] safely administered during the perioperative period For [facility] please see scanned medication reconcilliation form [...] AIR Quantity 1 Aid PLUS LOWER BODY [[id number]][F] Fluid/[place] [facility] Mistral warming system Body Site Lower anterior torso Last Modified By: LUIS Downey RN, CRNFA, ONC, Lucille 10/08/17 14:36:32 Case Comments Finalized By: Vi Ambriz CST Document Signatures Signed By: LUIS Downey RN, CRNFA, ONC, Lucille 10/08/17 14:52 Vi Ambriz CST 10/12/17 11:18 Normal [facility] Progress Note-Physicianon Progress Note-Physician Patient: WILLOW WILKES Age: 27 years Sex: Male : 1990 Associated Diagnoses: None Author: Donald Cyr M.D Subjective Doing better overall since I&D. Culture with MSSA. Health Status Allergies: Allergic Reactions (Selected)No Known Allergies Current medications: Medications (10) ActiveScheduled: (4)ceFAZolin 2 gram 50 mL, IV Piggyback, q8zbsoskbupo sodium 100 mg Cap [F] 100 mg 1 cap(s), Oral, BIDnicotine 14 mg/24 hr Transderm ER Film [F] 14 mg 1 patch(es), TransDermal, DailySodium Chloride 0.9% 500 mL 500 mL, IVContinuous: (1)Lactated Ringers 1,000 mL 1,000 mL, IV, 20 mL/hrPRN: (5)acetaminophen 325 mg Tab UD [F] 650 mg 2 tab(s), Oral, q9vvgxoyvalmf 0.083% Inh Mary 3 mL [F] 2.5 mg 3 mL, NEB, f7wukfkdpfetg CFC free 90 mcg/inh Inh Aer w/Adapt 8.5 gm [F] 180 microgram 2 puff(s), Inhalation, y5cepakcdzdy 2 mg/mL preservative-free SOLN [F] 4 mg 2 mL, IV Push, u7fyltkrjcqyikg 2 mg/mL Inj [F] 4 mg 2 mL, IV Push, q6hr Problem list: All ProblemsAt risk for falls / SNOMED CT 825015121 / PossibleProblem added when Risk for Falls Careplan was initiated.Impaired skin integrity / SNOMED CT 96377424 / ConfirmedProblem added on documentation of skin impairments.Smoker / IMO 245247 / ConfirmedAdded secondary to documentation in Social [...] 2-3 weeks. Wound care per surgery.. Normal [facility] Comment on above: Result Comment: Elec tronically [...] (4)ceFAZolin 2 gram 50 mL, IV Piggyback, z0aiupemlgpk sodium 100 mg Cap [F] 100 mg 1 cap(s), Oral, BIDnicotine 14 mg/24 hr Transderm ER Film [F] 14 mg 1 patch(es), TransDermal, DailySodium Chloride 0.9% 500 mL 500 mL, IVContinuous: (1)Lactated Ringers 1,000 mL 1,000 mL, IV, 20 mL/hrPRN: (5)acetaminophen 325 mg Tab UD [F] 650 mg 2 tab(s), Oral, m8fdkymnknzvk 0.083% Inh Mary 3 mL [F] 2.5 mg 3 mL, NEB, y4bazcnnjdsla CFC free 90 mcg/inh Inh Aer w/Adapt 8.5 gm [F] 180 microgram 2 puff(s), Inhalation, v3watmxpayvv 2 mg/mL preservative-free SOLN [F] 4 mg 2 mL, IV Push, i4pjvvndslydwuu 2 mg/mL Inj [F] 4 mg 2 mL, IV Push, q6hr Problem list: All ProblemsImpaired skin integrity / SNOMED CT 38935616 / ConfirmedProblem added on documentation of skin impairments.At risk for falls / SNOMED CT 143917657 / PossibleProblem added when Risk for Falls Careplan was initiated.Smoker / IMO 202949 / ConfirmedAdded secondary to documentation in Social History.Resolved: Asthma / SNOMED CT 867892821 Histories Past Medical History: ResolvedAsthma (793662476): Resolved. Family History: AsthmaMother Procedure history: Incision AND drainage (SNOMED CT 882973514) performed by Jose M Patten MD on 10/08/2017 at 27 Years.Comments:10/08/2017 19:32 - Magda THOMPSON, Julieta NI AND D AND IRRIGATION LEFT LOWER BACK ABCESS 10 X 15 CMIncision AND drainage (SNOMED CT 682608080).Comments:10/06/2017 06:12 - Philippe Cabezas RN right hand Social History Social & Psychosocial QhuduvBymvjyg24/26/2017 Risk Assessment: Denies Alcohol UseSubstance Abuse10/05/2017 Risk Assessment: Denies Substance VvfkoQnffqza65/26/2017 Risk Assessment: High Risk10/05/2017 Use: Current Every [...] Delarosa MD on October 08, 2017 08:58 [facility] info: [id number], [facility], Inpatient, 10/05/2017 - . Condition: [...] soon pending Wound Vac change today. Normal [facility] Comment on above: Result Comment: Elec tronically [...] (4)ceFAZolin 2 gram 50 mL, IV Piggyback, n0faoewngcfm sodium 100 mg Cap [F] 100 mg 1 cap(s), Oral, BIDnicotine 14 mg/24 hr Transderm ER Film [F] 14 mg 1 patch(es), TransDermal, DailySodium Chloride 0.9% 500 mL 500 mL, IVContinuous: (1)Lactated Ringers 1,000 mL 1,000 mL, IV, 20 mL/hrPRN: (6)acetaminophen 325 mg Tab UD [F] 650 mg 2 tab(s), Oral, a6hrztcsspton 0.083% Inh Mary 3 mL [F] 2.5 mg 3 mL, NEB, i6jwyuzbyraiy CFC free 90 mcg/inh Inh Aer w/Adapt 8.5 gm [F] 180 microgram 2 puff(s), Inhalation, d5fvstclqghcd 30 mg/mL Inj 1 mL [F] 30 mg 1 mL, IV, v0oukhwrrnsa 10 mg/mL preservative-free SOLN [F] 4 mg 0.4 mL, IV Push, i1xtuevayzzetod 2 mg/mL Inj [F] 4 mg 2 mL, IV Push, q6hr Problem list: All ProblemsImpaired skin integrity / SNOMED CT 94213496 / ConfirmedProblem added on documentation of skin impairments.Smoker / IMO 632635 / ConfirmedAdded secondary to documentation in Social History.Resolved: Asthma / SNOMED CT 678014703 Histories Past Medical History: ResolvedAsthma ([id number]): Resolved. Family History: AsthmaMother Procedure history: Incision AND drainage (SNOMED CT 149779960) performed by Jose M Patten MD on 10/08/2017 at 27 Years.Comments:10/08/2017 19:32 - Magda THOMPSON, Julieta IGLESIAS AND Musa AND IRRIGATION LEFT LOWER BACK ABCESS 10 X 15 CMIncision AND drainage (SNOMED CT 426253838).Comments:10/06/2017 06:12 - Philippe Cabezas RN right hand Social History Social & Psychosocial GspxsfZausdbv88/26/2017 Risk Assessment: Denies Alcohol UseSubstance Abuse10/05/2017 Risk Assessment: Denies Substance PwlsvZmdwxbc38/ Risk Assessment: High Risk10/05/2017 Use: Current Every [...] on October 08, 2017 08:58 ESTEncounter info: [id number], Abdi Kike Ariel, Inpatient, 10/05/2017 - . [...] pending Wound Vac change on 10/12/17 Normal [facility] Comment on above: Result Comment: Elec tronically Signed By: Sushant DC, Juan Pablo\.br\Date and Time Signed: 10/11/17 12:43 EST Auto Diffon 10-10-2017 Basophils Auto #/vol (Bld) 0.1 E9/L Normal 0.0-0.2 [facility] Comment on above: Order Comment: Order Added by Discern Expert. Performed By: #### 1 3225351, 0639596, 35708068, 8081785, 95983823, 0583590, 1110207 ####[facility] [address] [place] [address] Basophils Auto #/vol (Bld) 0.9 % Normal 0.0-2.0 [facility] Comment on above: Order Comment: Order Added by Discern Expert. Performed By: #### 1 1051865, 3110128, 68357400, 1379298, 65299997, 0685980, 5936167 ####[facility] [address] [place] [address] Eosinophils 0.7 E9/L High 0.0-0.5 [facility] Comment on above: Order Comment: Order Added by Discern Expert. Performed By: #### 1 6590690, 7708844, 14396507, 1908111, 43315353, 5632800, 3731229 ####[address] [place] [address] Eosinophils/100 leukocytes 7.4 % Normal 0.0-8.0 [facility] Comment on above: Order Comment: Order Added by Discern Expert. Performed By: #### 1 2506896, 2819186, 69842435, 4618509, 82037053, 4469827, 6314091 ####[address] [place] [address] Lymphocytes 2.4 E9/L Normal 1.0-4.0 [facility] Comment on above: Order Comment: Order Added by Margo Expert. Performed By: #### 1 9734395, 5110636, 73482521, 5031697, 41314856, 1193432, 2192164 ####[address] [address] Lymphocytes/100 leukocytes 25.6 % Normal 14.0-50.0 [facility] Comment on above: Order Comment: Order Added by Margo Expert. Performed By: #### 1 4237718, 8690389, 61060087, 5342260, 10861247, 0455260, 1706248 ####[address] [place] [address] Monocytes 0.9 E9/L Normal 0.2-1.0 [facility] Comment on above: Order Comment: Order Added by Margo Expert. Performed By: #### 1 9160189, 5288799, 21892216, 4231535, 59189499, 7202127, 1680283 ####[address] [place] [address] Monocytes/100 leukocytes 9.9 % Normal 4.0-14.0 [facility] Comment on above: Order Comment: Order Added by Margo Expert. Performed By: #### 1 5495739, 9238888, 90469887, 8898248, 63304866, 4758402, 5731370 ####[facility] [address] [place] [address] Neutrophils 5.3 E9/L Normal 2.0-7.5 [facility] Comment on above: Order Comment: Order Added by Discern Expert. Performed By: #### 1 0689309, 6960601, 69313537, 3423787, 87123626, 7438170, 3226516 ####[facility] [address] [place] [address] Neutrophils/100 leukocytes 56.2 % Normal 36.0-75.0 [facility] Comment on above: Order Comment: Order Added by Discern Expert. Performed By: #### 1 8142419, 4678855, 10956218, 4009862, 58431536, 1902035, 8463406 ####[facility] [address] [place] [address] C [place] 10-10-2017 Wound Culture MicrobiologyPROCEDUR E: [...] SPerforming LocationsR1: This test was performed at: [facility], [address] [place] [address], [address] , [facility] Comment on above: Performed By: #### 1 4451868, 5189517, 90685602, 3127898, 07828058, 9204428, 8426369 ####[address] [place] [address] CBC w/ Auto Diffon 7 Erythrocyte distribution width Auto Ratio (RBC) 13.3 % Normal 10.9-14.2 [facility] Comment on above: Performed By: #### 1 4434278, 5470679, 76586129, 0539798, 07457523, 4221314, 0220067 ####[address] [place] [address] Erythrocytes (RBC) 3.4 E12/L Low 4.3-5.9 [facility] Comment on above: Performed By: #### 1 5771199, 2027042, 91455760, 1340388, 12944520, 5722282, 2195665 ####[address] [place] [address] Hematocrit (HCT) 31.1 % Low 37.7-49.0 [facility] Comment on above: Performed By: #### 1 0739762, 8461992, 64459058, 0373338, 94430624, 4541437, 8532732 ####[address] Hemoglobin mass conc (Bld) 10.8 g/dL Low 13.5-17.5 [facility] Comment on above: Performed By: #### 1 7784540, 8534362, 94880726, 9511346, 62907346, 9756845, 5434087 ####[address] MCH 31.9 pg Normal 27.0-34.0 [facility] Comment on above: Performed By: #### 1 3025065, 6341348, 03552003, 5339728, 07764681, 0673767, 9216908 ####[address] [place] [address] MCHC mass conc (RBC) 34.6 g/dL Normal 31.4-39.3 [facility] Comment on above: Performed By: #### 1 8330704, 0566851, 54738189, 3751845, 57572356, 4261815, 2664947 ####[address] MCV 92.1 fL Normal 80.0-100.0 [facility] Comment on above: Performed By: #### 1 4552896, 5427791, 00654701, 1849444, 08201099, 9763597, 9722719 ####[facility] [facility] [address] [place] [address] Platelet mean volume (PMV) 6.8 fL Normal 6.4-10.8 [facility] Comment on above: Performed By: #### 1 1688727, 0400495, 84678047, 0243007, 81778730, 5041446, 0640735 ####[facility] [address] [place] [address] Platelets 497.0 E9/L Normal 150.0-500. 0 [facility] Comment on above: Performed By: #### 1 4632937, 7645120, 43117994, 8525870, 98681486, 2058352, 3136926 ####[facility] [address] [place] [address] WBC (Leukocytes) 9.4 E9/L Normal 4.0-11.0 [facility] Comment on above: Result Comment: Slid e reviewed by DK. Performed By: #### 1 6567772, 6739344, 06811424, 4042726, 71303911, 5827639, 5473387 ####[facility] [address] [place] [address] Consultation Noteon 10-10-20 17 Consultation Note HOSPITAL [...] anesthesia today.Jose M Patten MD, FACSaekDictated: 10/08/2017 #[id number]: 10/09/2017 #[id number]: Luis F Benavides D.O.Myra Middleton M.D.Jose M Patten MD, FACS [facility] Comment on above: Result Comment: Elec tronically Signed By: Sandor DC, Jose M Camilo\.br\Date and Time Signed: 10/10/17 16:08 EST Interdisciplinary Note - Brett e Manageron 10-10-2017 Interdisciplinary Note - Lock Master Spoke to Dr. Canchola who anticipates pt. to stay till Wednesday. I spoke to pt. regarding [facility] and a home wound vac and he is agreable and understands the homebound status. Referral sent to resource center. [facility] Interdisciplinary Note - Nut ritionon 10-10-2017 [...] PO encouraged. Nutrition POC implemented. Normal [facility] Operative Reporton 12-31-201 7 Operative Report Date [...] I was able to contact the [facility] and they were able to remove the packing and place aWound VAC in the Recovery Room to further aid in healing of this largeabscess cavity. This was all tolerated well by the patient.Jose M Patten MD, FACSglsDictated: 10/08/2017 #[id number]: 10/09/2017 #[id number]: Myra Middleton M.D.Jose M Patten MD, FACS [facility] Comment on above: Result Comment: Elec [...] bad as it did on Wednesday. Normal [facility] Progress Note-Physicianon Progress Note-Physician Patient: WILLOW WILKES Age: 27 years Sex: Male : 1990 Associated Diagnoses: None Author: Sushant DC, [facility] Basic Information 27-year-old male with [...] (4)ceFAZolin 2 gram 50 mL, IV Piggyback, g8gxyxheqmuh sodium 100 mg Cap [F] 100 mg 1 cap(s), Oral, BIDnicotine 14 mg/24 hr Transderm ER Film [F] 14 mg 1 patch(es), TransDermal, DailySodium Chloride 0.9% 500 mL 500 mL, IVContinuous: (1)Lactated Ringers 1,000 mL 1,000 mL, IV, 75 mL/hrPRN: (6)acetaminophen 325 mg Tab UD [F] 650 mg 2 tab(s), Oral, x5duukwczgpbf 0.083% Inh Mary 3 mL [F] 2.5 mg 3 mL, NEB, l6jjrezlcgsuk CFC free 90 mcg/inh Inh Aer w/Adapt 8.5 gm [F] 180 microgram 2 puff(s), Inhalation, q8ljtvpgbcftu 30 mg/mL Inj 1 mL [F] 30 mg 1 mL, IV, v3bhhsfzglfl 10 mg/mL preservative-free SOLN [F] 4 mg 0.4 mL, IV Push, w2lpywrfesulyco 2 mg/mL Inj [F] 4 mg 2 mL, IV Push, q6hr Problem list: All ProblemsImpaired skin integrity / SNOMED CT 36964147 / ConfirmedProblem added on documentation of skin impairments.Smoker / IMO [id number] / ConfirmedAdded secondary to documentation in Social History.Resolved: Asthma / SNOMED CT 332779776 Histories Past Medical History: ResolvedAsthma ([id number]): Resolved. Family History: AsthmaMother Procedure history: Incision AND drainage (SNOMED CT 149616717) performed by Jose M Patten MD on 10/08/2017 at 27 Years.Comments:10/08/2017 19:32 - Magda THOMPSON, Julieta NI AND D AND IRRIGATION LEFT LOWER BACK ABCESS 10 X 15 CMIncision AND drainage (SNOMED CT 661374871).Comments:10/06/2017 06:12 - Philippe Cabezas RN right hand Social History Social & Psychosocial RkyjvnJyxfaxy92/26/2017 Risk Assessment: Denies Alcohol UseSubstance Abuse10/05/2017 Risk Assessment: Denies Substance RdlsgGvdwnit75/26/2017 Risk Assessment: High Risk10/05/2017 Use: Current Every [...] Auto 56.2 % Lymph Auto 25.6 % Morehouse Auto 9.9 % Eos Auto 7.4 % Basophil Auto 0.9 % Neutro Absolute 5.3 E9/L Lymph Absolute 2.4 E9/L Morehouse Absolute 0.9 E9/L Eos Absolute 0.7 E9/L [...] Yury Bandar on October 08, 2017 08:58 [facility] info: [id number], [facility], Inpatient, 10/05/2017 - . Condition: [...] and Wound Vac change on 10/12/17 Normal [facility] Comment on above: Result Comment: Elec tronically Signed By: Sushant DC, Juan Pablo\.br\Date and Time Signed: 10/10/17 11:42 EST Auto Diffon 10-09-2017 Basophils Auto #/vol (Bld) 0.1 E9/L Normal 0.0-0.2 [facility] Comment on above: Order Comment: Order Added by Discern Expert. Performed By: #### 1 7525855, 9023108, 50141980, 2804459, 02428380, 1915818, 3901977 ####[facility] [address] [place] [address] Basophils Auto #/vol (Bld) 0.4 % Normal 0.0-2.0 [facility] Comment on above: Order Comment: Order Added by Discern Expert. Performed By: #### 1 2993430, 3236909, 74750736, 4533245, 71513209, 7825685, 3619702 ####[facility] [address] [place] [address] Eosinophils 0.1 E9/L Normal 0.0-0.5 [facility] Comment on above: Order Comment: Order Added by Discern Expert. Performed By: #### 1 4977421, 8599184, 19024788, 6948278, 82458072, 3757748, 3961551 ####[facility] [address] [place] [address] Eosinophils/100 leukocytes 0.8 % Normal 0.0-8.0 [facility] Comment on above: Order Comment: Order Added by Margo Expert. Performed By: #### 1 3599954, 6056440, 31150410, 9260725, 47890583, 6691402, 7640025 ####[facility] [address] [place] [address] Lymphocytes 1.3 E9/L Normal 1.0-4.0 [facility] Comment on above: Order Comment: Order Added by Margo Expert. Performed By: #### 1 5643723, 8129925, 91473610, 1251448, 72921030, 7994924, 9773295 ####[facility] [address] [place] [address] Lymphocytes/100 leukocytes 8.2 % Low 14.0-50.0 [facility] Comment on above: Order Comment: Order Added by Margo Expert. Performed By: #### 1 6698947, 4866383, 17761235, 7035174, 08120643, 4224086, 8307190 ####[facility] [address] [place] [address] Monocytes 1.2 E9/L High 0.2-1.0 [facility] Comment on above: Order Comment: Order Added by Discern Expert. Performed By: #### 1 2759120, 2727637, 99044905, 6057503, 54921232, 9772910, 6666891 ####[address] [place] [address] Monocytes/100 leukocytes 8.0 % Normal 4.0-14.0 [facility] Comment on above: Order Comment: Order Added by Discern Expert. Performed By: #### 1 7051824, 6532552, 58326850, 2489131, 76194098, 7524729, 4440620 ####[address] [place] [address] Neutrophils 12.7 E9/L High 2.0-7.5 [facility] Comment on above: Order Comment: Order Added by Margo Expert. Performed By: #### 1 0705310, 9647916, 25412804, 0813868, 97937960, 2617791, 5294028 ####[address] [place] [address] Neutrophils/100 leukocytes 82.6 % High 36.0-75.0 [facility] Comment on above: Order Comment: Order Added by Discern Expert. Performed By: #### 1 5909491, 7717080, 73275178, 2818632, 87142047, 6196065, 9534853 ####[address] [place] [address] CBC w/ Auto Diffon 7 Erythrocyte distribution width Auto Ratio (RBC) 13.2 % Normal 10.9-14.2 [facility] Comment on above: Performed By: #### 1 2038620, 9928165, 65383026, 7000930, 07431027, 9791404, 9944183 ####[address] [place] [address] Erythrocytes (RBC) 3.6 E12/L Low 4.3-5.9 [facility] Comment on above: Performed By: #### 1 7278183, 7396780, 73061147, 2297548, 52517649, 7976405, 5188261 ####[address] [place] [address] Hematocrit (HCT) 32.3 % Low 37.7-49.0 [facility] Comment on above: Performed By: #### 1 9997640, 0597394, 38987434, 2539232, 50924993, 4540699, 1983070 ####[address] [place] [address]257 Hemoglobin mass conc (Bld) 11.0 g/dL Low 13.5-17.5 [facility] Comment on above: Performed By: #### 1 2824354, 4360797, 90692959, 0493053, 03537015, 2191283, 6638651 ####[place] [address] MCH 31.0 pg Normal 27.0-34.0 [facility] Comment on above: Performed By: #### 1 4966410, 6779008, 18398340, 0909607, 90274695, 7268785, 6555671 ####[address] MCHC mass conc (RBC) 34.1 g/dL Normal 31.4-39.3 [facility] Comment on above: Performed By: #### 1 3381657, 5308311, 62148982, 2654982, 08454257, 2134982, 5937358 ####[address] [address] MCV 91.0 fL Normal 80.0-100.0 [facility] Comment on above: Performed By: #### 1 1761245, 1132397, 78432659, 8044438, 23782072, 3983043, 2078919 ####[address] [place] [address] Platelet mean volume (PMV) 7.1 fL Normal 6.4-10.8 [facility] Comment on above: Performed By: #### 1 0302392, 3404354, 55948958, 5819562, 66696614, 8353949, 0515074 ####[facility] [address] [place] [address] Platelets 429.0 E9/L Normal 150.0-500. 0 [facility] Comment on above: Performed By: #### 1 0422923, 8975943, 69535542, 6611299, 32991296, 2535371, 8302784 ####[facility] [address] [place] [address] WBC (Leukocytes) 15.4 E9/L High 4.0-11.0 [facility] Comment on above: Result Comment: Slid e reviewed by AC. Performed By: #### 1 9030739, 6889670, 76528737, 3206727, 33181182, 5323868, 1232627 ####[facility] [address] [place] [address] Progress Note-Physicianon Progress Note-Physician Patient: WILLOW WILKES [...] mL 493 mg 0.99 EA, IV Piggyback, e34kstwkwpmyi 14 mg/24 hr Transderm ER Film [F] 14 mg 1 patch(es), TransDermal, Dailypiperacillin-tazobactam 3 g-0.375 g 3.375 gram 1 EA, IV Piggyback, k2zuNvoronndcy: (1)Lactated Ringers 1,000 mL 1,000 mL, IV, 75 mL/hrPRN: (6)acetaminophen 325 mg Tab UD [F] 650 mg 2 tab(s), Oral, e0pnlwczkzeja 0.083% Inh Mary 3 mL [F] 2.5 mg 3 mL, NEB, i2zdtsixoyvaj CFC free 90 mcg/inh Inh Aer w/Adapt 8.5 gm [F] 180 microgram 2 puff(s), Inhalation, j5ipguckocskx 30 mg/mL Inj 1 mL [F] 30 mg 1 mL, IV, m7hpcnognwzy 10 mg/mL preservative-free SOLN [F] 4 mg 0.4 mL, IV Push, j9guxissrehrjao 2 mg/mL Inj [F] 4 mg 2 mL, IV Push, q6hr Problem list: All ProblemsImpaired skin integrity / SNOMED CT 33502495 / ConfirmedProblem added on documentation of skin impairments.Smoker / IMO [id number] / ConfirmedAdded secondary to documentation in Social History.Resolved: Asthma / SNOMED CT 983540116 Histories Past Medical History: ResolvedAsthma ([id number]): Resolved. Family History: AsthmaMother Procedure history: Incision AND drainage (SNOMED CT 463333842) performed by Jose M Patten MD on 10/08/2017 at 27 Years.Comments:10/08/2017 19:32 - Magda THOMPSON, Julieta IGLESIAS AND D AND IRRIGATION LEFT LOWER BACK ABCESS 10 X 15 CMIncision AND drainage (SNOMED CT 176417692).Comments:10/06/2017 06:12 - Philippe Cabezas RN right hand Social History Social & Psychosocial IutwwoJvriwwp06/26/2017 Risk Assessment: Denies Alcohol UseSubstance Abuse10/05/2017 Risk Assessment: Denies Substance VnwsnGrotqmb91/26/2017 Risk Assessment: High Risk10/05/2017 Use: Current Every [...] % HI Lymph Auto 8.2 % LOW Morehouse Auto 8.0 % Eos Auto 0.8 % Basophil Auto 0.4 % Neutro Absolute 12.7 E9/L HI Lymph Absolute 1.3 E9/L Morehouse Absolute 1.2 E9/L HI Eos Absolute 0.1 [...] Delarosa MD on October 08, 2017 08:58 [facility] info: [id number], [facility], Inpatient, 10/05/2017 - . Condition: [...] Wound Vac change on 10/12/[address] [facility] Comment on above: Result Comment: Elec [...] per Wound Clinic.Will follow as needed. Normal [facility] Comment on above: Result Comment: Elec tronically Signed By: Sandor DC, Jose M Bishop.br\Date and Time Signed: 10/09/17 07:53 EST Vanco Troughon 10-09-2017 VANCOMYCIN <4 Low 10-20 [facility] Comment on above: Result Comment: Resu lts verified by dilution. Performed By: #### 1 2751598, 2787835, 67724538, 7719098, 25357507, 8096653, 5177455 ####[facility] [address] [place] [address] Dino 10-08-2017 Alanine aminotransferase (ALT) 63 Int._Unit/L High 6-46 [facility] Comment on above: Performed By: #### 1 1237857, 7857864, 89623466, 5041857, 85871610, 9813673, 3568574 ####[facility] [address] [place] [address] Navid 10-08-2017 Aspartate aminotransferase (AST) 37 Int._Unit/L Normal 5-43 [facility] Comment on above: Performed By: #### 1 4790258, 4746147, 60937293, 4112653, 43978823, 3239036, 2059680 ####[facility] [address] [place] [address] Auto Diffon 10-08-2017 Basophils Auto #/vol (Bld) 0.1 E9/L Normal 0.0-0.2 [facility] Comment on above: Order Comment: Order added by Discern Expert. Performed By: #### 1 8775623, 8126649, 94839632, 0285455, 58242778, 3448992, 0913742 ####[facility] [address] [place] [address] Basophils Auto #/vol (Bld) 0.5 % Normal 0.0-2.0 [facility] Comment on above: Order Comment: Order added by Discern Expert. Performed By: #### 1 1300769, 1410717, 64983370, 4874810, 77282167, 7878340, 4105655 ####[facility] [address] [place] [address] Eosinophils 0.9 E9/L High 0.0-0.5 [facility] Comment on above: Order Comment: Order added by Discern Expert. Performed By: #### 1 0170429, 8170331, 73368669, 7212098, 37543426, 6845626, 0171026 ####[facility] [address] [place] [address] Eosinophils/100 leukocytes 5.6 % Normal 0.0-8.0 [facility] Comment on above: Order Comment: Order added by Margo Expert. Performed By: #### 1 6646241, 6033788, 32307270, 5239298, 17015834, 3514443, 3896156 ####[address] [place] [address] Lymphocytes 1.5 E9/L Normal 1.0-4.0 [facility] Comment on above: Order Comment: Order added by Margo Expert. Performed By: #### 1 6395956, 1456078, 98851951, 2393988, 45116046, 7173456, 2908033 ####[address] [place] [address] Lymphocytes/100 leukocytes 9.3 % Low 14.0-50.0 [facility] Comment on above: Order Comment: Order added by Margo Expert. Performed By: #### 1 8873090, 9517432, 39174716, 4865798, 62448092, 2384885, 7106597 ####[address] [place] [address] Monocytes 1.9 E9/L High 0.2-1.0 [facility] Comment on above: Order Comment: Order added by Margo Expert. Performed By: #### 1 8374856, 2828912, 73659807, 8184603, 38637197, 3847641, 0918877 ####[facility] [address] [place] [address] Monocytes/100 leukocytes 12.0 % Normal 4.0-14.0 [facility] Comment on above: Order Comment: Order added by Discern Expert. Performed By: #### 1 4099560, 3482143, 66782628, 2519460, 65446593, 7157861, 9037830 ####[facility] [address] [place] [address] Neutrophils 11.5 E9/L High 2.0-7.5 [facility] Comment on above: Order Comment: Order added by Discern Expert. Performed By: #### 1 7295419, 9755838, 12254407, 0922634, 21134092, 7820773, 8841177 ####[facility] [address] [place] [address] Neutrophils/100 leukocytes 72.6 % Normal 36.0-75.0 [facility] Comment on above: Order Comment: Order added by Discern Expert. Performed By: #### 1 2158715, 9124827, 64394802, 5873564, 63249120, 1430816, 4182934 ####[facility] [address] [place] [address] BMPon 10-08-2017 Anion gap 9 mmol/L Normal 6-16 [facility] Comment on above: Performed By: #### 1 8466307, 7006060, 80937784, 6082133, 65208584, 4200312, 7880937 ####[facility] [address] [place] [address] BUN/Creatinine Ratio 9 No Units Low 10-20 [facility] Comment on above: Performed By: #### 1 9417071, 9503004, 87166530, 6121137, 96051209, 8381265, 7007284 ####[facility] [address] [place] [address] Calcium 8.2 mg/dL Low 8.9-11.1 [facility] Comment on above: Performed By: #### 1 4087111, 9292503, 17383030, 2130016, 50695828, 1327796, 0610347 ####[facility] [address] [place] [address] Chloride 103 mmol/L Normal 101-111 [facility] Comment on above: Performed By: #### 1 5228758, 6129820, 02109205, 2391666, 43371450, 1010769, 4826218 ####[facility] [address] [place] [address] CO2 28 mmol/L Normal 21-31 [facility] Comment on above: Performed By: #### 1 9741570, 5297990, 22447847, 4916039, 40201710, 0749247, 8786133 ####[facility] [address] [place] [address] Creatinine 0.8 mg/dL Normal 0.5-1.3 [facility] Comment on above: Performed By: #### 1 9943361, 5721521, 75224441, 4071909, 58646703, 1051289, 2818453 ####[facility] [address] [place] [address] Glucose mass conc 98 mg/dL Normal 55-199 [facility] Comment on above: Result Comment: If t his glucose result represents a fasting glucose, interpretation should refer to the following reference range: 55-99 mg/dL Performed By: #### 1 2295231, 4652881, 56098710, 9396288, 82945649, 2978601, 0863639 ####[facility] [address] [place] [address] Potassium molar conc 4.0 mmol/L Normal 3.5-5.3 [facility] Comment on above: Performed By: #### 1 9050040, 4557368, 31201260, 8582055, 57253431, 8818322, 1429672 ####[facility] [address] [place] [address] Sodium 136 mmol/L Normal 135-145 [facility] Comment on above: Performed By: #### 1 5476453, 8557845, 38087625, 2615542, 21478405, 4953116, 5741757 ####[facility] [address] [place] [address] Urea nitrogen 7 mg/dL Normal 5-21 [facility] Comment on above: Performed By: #### 1 2430734, 5972977, 32725104, 8801516, 94730706, 4542417, 3165825 ####[facility] [address] [place] [address] CBC w/ Auto Diffon Erythrocyte distribution width Auto Ratio (RBC) 13.4 % Normal 10.9-14.2 [facility] Comment on above: Performed By: #### 1 8675626, 2071365, 70412988, 2863377, 97556979, 7925949, 5838141 ####[address] [place] [address] Erythrocytes (RBC) 3.7 E12/L Low 4.3-5.9 [facility] Comment on above: Performed By: #### 1 2163616, 4022958, 04130469, 1011156, 88109069, 8397977, 7074437 ####[address] [place] [address] Hematocrit (HCT) 34.5 % Low 37.7-49.0 [facility] Comment on above: Performed By: #### 1 3955466, 6403806, 89322145, 1117569, 45828074, 2332305, 2837906 ####[facility] [address] [place] [address] Hemoglobin mass conc (Bld) 12.1 g/dL Low 13.5-17.5 [facility] Comment on above: Performed By: #### 1 3501740, 4071725, 98715457, 2711218, 76679709, 1835430, 3848241 ####[address] [place] [address] MCH 32.3 pg Normal 27.0-34.0 [facility] Comment on above: Performed By: #### 1 0438741, 8688178, 27142509, 2113680, 27989346, 5153633, 0349581 ####[address] [address] MCHC mass conc (RBC) 34.9 g/dL Normal 31.4-39.3 [facility] Comment on above: Performed By: #### 1 1888394, 6638251, 62228941, 2029007, 65795067, 1891238, 5852496 ####[place] [address] MCV 92.4 fL Normal 80.0-100.0 [facility] Comment on above: Performed By: #### 1 0428672, 0293616, 93814182, 6174907, 54066119, 6047088, 5279580 ####[place] [place] [address] Platelet mean volume (PMV) 6.6 fL Normal 6.4-10.8 [facility] Comment on above: Performed By: #### 1 8727839, 4142903, 95506119, 1032603, 98665237, 1920285, 2160853 ####[place] [address] Platelets 342.0 E9/L Normal 150.0-500. 0 [facility] Comment on above: Performed By: #### 1 6125876, 8731413, 64790221, 3418929, 27925831, 4292133, 8079570 ####[place] [address] WBC (Leukocytes) 15.9 E9/L High 4.0-11.0 [facility] Comment on above: Performed By: #### 1 7699095, 7211403, 68429525, 2610654, 88614218, 7717366, 9196516 ####[facility] [address] [place] [address] Consultation Noteon 10-08-20 Consultation Note Patient: Alexx WILKES Age: 27 years Sex: Male : 1990 Associated Diagnoses: None Author: Donald Cyr M.D Chief Complaint 10/05/2017 18:24 EST pain in mid back to hip. ongoing X2 weeks. was seen [place] but was told it was just muscle spasms. xray and urin were obtained in [place]. History of Present Illness Patient with back [...] g 3.375 gram 1 EA, IV Piggyback, k0aimlkncnolao + Sodium Chloride 0.9% 500 mL 2 gram 2 EA, IV Piggyback, i16vlIhvweoaxou: (2)Lactated Ringers 1,000 mL 1,000 mL, IV, 125 mL/hrSodium Chloride 0.9% 2,190 mL 2,190 mL, IV, 999 mL/hrPRN: (6)acetaminophen 325 mg Tab UD [F] 650 mg 2 tab(s), Oral, r5wpqxpweiife 0.083% Inh Mary 3 mL [F] 2.5 mg 3 mL, NEB, j8bnkeepthqoq CFC free 90 mcg/inh Inh Aer w/Adapt 8.5 gm [F] 180 microgram 2 puff(s), Inhalation, e7rqgkcdxonpa 30 mg/mL Inj 1 mL [F] 30 mg 1 mL, IV, b8agitqyljnt 10 mg/mL preservative-free SOLN [F] 4 mg 0.4 mL, IV Push, h8veczpgibwqkvg 2 mg/mL Inj [F] 4 mg 2 mL, IV Push, q6hr Problem list: All ProblemsImpaired skin integrity / SNOMED CT 35213089 / ConfirmedProblem added on documentation of skin impairments.Smoker / IMO 071303 / ConfirmedAdded secondary to documentation in Social History. Histories Past Medical History: ResolvedAsthma ([id number]): Resolved. Family History: AsthmaMother Procedure history: Incision AND drainage ([id number]).Comments:10/06/2017 06:12 - Philippe Cabezas RN right hand Physical Examination Vital Signs 10/08/2017 08:26 EST Heart Rate Monitored 92 bpm 10/08/2017 08:25 EST Respiratory Rate 20 br/min 10/08/2017 08:25 EST Temperature Oral 36.9 DegC 10/08/2017 08:25 EST Systolic Blood Pressure 103 mmHg Diastolic Blood Pressure 62 mmHg 10/07/2017 23:26 EST Temperature Oral 38.6 DegC VT 10/07/2017 20:20 EST Temperature Oral 38.2 DegC VT 10/07/2017 15:00 EST Temperature Oral 36.8 DegC [...] to see patient. Already consulted. . Normal [facility] Comment on above: Result Comment: Elec tronically [...] hip. ongoing X2 weeks. was seen [place] but was told it was just muscle spasms. xray and urin were obtained in [place]. . History of Present Illness The patient [...] The patient stated he was seen at [place] on and he was diagnosed with muscle strain. The patient denies any IV drug abuse or any other associated symptoms. Review of Systems Additional review of systems information: All other systems reviewed and otherwise negative. Health Status Allergies: Allergic Reactions (Selected)No Known Allergies. Past Medical/ Family/ Social History [id number].. 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 Disposition: Admit time 10/06/17 01:35:00, Admit to Inpatient Telemetry Unit, Luis F Benavides DO Counseled: Patient, Family, Regarding diagnosis, Regarding diagnostic results, Regarding treatment plan. [facility] Comment on above: Result Comment: Elec tronically Signed By: Melissa Mcfadden, Анна Nicole\.br\Date and Time Signed: 10/08/17 09:28 EST Interdisciplinary Note - Brett e Manageron 10-08-2017 Interdisciplinary Note - Lock Master Rounding with Dr. Canchola, Marisa [facility], [place] [facility] [facility], Marcelino RN. Whiteboard updated. No [...] dc in a few days. [facility] Interdisciplinary Note - Soc ial Workeron 10-08-2017 Interdisciplinary Note - Acquisition Manager Consult received late this afternoon to order wound vac. SW [facility] who will be following this weekend about need for wound vac as this SW is not familiar with how to order this as this is usually completed by wound care. SW will remain available. [facility] Main OR PACU I Recordon 09-11 Main OR PACU I Record PACU Phase I Document Type FT Summary Primary Physician: Jose M Patten MD Finalized Date/Time: 10/08/17 17:18:48 Pt. Name: WILLOW WILKES /Sex: 1990 Male Med Rec #: [id number] Physician: Анна Torres M.D. Financial #: [id number] Pt. Type: I Room/Bed: [place] [address] Admit/Disch: 10/05/17 17:35:00 - Institution: Case Times [...] By: Aixa Wolfe RN 10/08/17 17:18 Normal [facility] Progress Note-Physicianon Progress Note-Physician Patient: WILLOW WILKES [...] discharged from PACU when criteria met. Normal [facility] Comment on above: Result Comment: Elec tronically [...] mL 493 mg 0.99 EA, IV Piggyback, j27kdvrriuroljzck-qcnbbuuufn 3 g-0.375 g 3.375 gram 1 EA, IV Piggyback, z9phQvnernbllv: (1)Lactated Ringers 1,000 mL 1,000 mL, IV, 125 mL/hrPRN: (6)acetaminophen 325 mg Tab UD [F] 650 mg 2 tab(s), Oral, u8kybfhbfmxuz 0.083% Inh Mary 3 mL [F] 2.5 mg 3 mL, NEB, v2rugdusxhwdz CFC free 90 mcg/inh Inh Aer w/Adapt 8.5 gm [F] 180 microgram 2 puff(s), Inhalation, h7rkbgztrzqpc 30 mg/mL Inj 1 mL [F] 30 mg 1 mL, IV, n7nkgibklkas 10 mg/mL preservative-free SOLN [F] 4 mg 0.4 mL, IV Push, v7oaedojktefqsg 2 mg/mL Inj [F] 4 mg 2 mL, IV Push, q6hr Problem list: All ProblemsImpaired skin integrity / SNOMED CT 64912695 / ConfirmedProblem added on documentation of skin impairments.Smoker / IMO [id number] / ConfirmedAdded secondary to documentation in Social History.Resolved: Asthma / SNOMED CT 003802570, Active Problems (2)Impaired skin integrity Smoker Histories Past Medical History: ResolvedAsthma (381263799): Resolved. Family History: AsthmaMother Procedure history: Incision AND drainage (249668372).Comments:10/06/2017 06:12 - Philippe Cabezas RN right hand Social History Social & Psychosocial JknjaeCmisyfe18/26/2017 Risk Assessment: Denies Alcohol UseSubstance Abuse10/05/2017 Risk Assessment: Denies Substance WvraiVndqwez79/26/2017 Risk Assessment: High Risk10/05/2017 Use: Current Every [...] are non-labored. Cardiovascular: Regular rhythm. Integumentary: Warm, Ruso. Neurologic: Alert, Oriented. Review / Management Results review: Lab results 10/08/2017 06:19 EST WBC 15.9 E9/L HI RBC 3.7 E12/L LOW Hgb 12.1 gm/dL LOW Hct 34.5 % LOW MCV 92.4 fL MCH 32.3 pg MCHC 34.9 gm/dL RDW 13.4 % Platelet 342.0 E9/L MPV 6.6 fL Neutro Auto 72.6 % Lymph Auto 9.3 % LOW Morehouse Auto 12.0 % Eos Auto 5.6 % Basophil Auto 0.5 % Neutro Absolute 11.5 E9/L HI Lymph Absolute 1.5 E9/L Morehouse Absolute 1.9 E9/L HI Eos Absolute 0.9 [...] E9/L HI Lymph Abs Man 2.6 E9/L Morehouse Abs Man 1.4 E9/L HI Eos Abs [...] ECG interpretation: Reviewed ECG.. Condition: Stable. Plan [employer] [employer] (ASA) physical status classification: Class II. Anesthetic Preoperative Plan Anesthesia: General. . Anesthetic plan, risks, benefits, and alternatives discussed with the patient and/or family. Patient verbalized understanding. Risks, benefits, alternatives discussed. Questions answered. . Normal [facility] Comment on above: Result Comment: Elec tronically [...] mL 493 mg 0.99 EA, IV Piggyback, v95aplfuzhvixgsmi-ppzznsfznd 3 g-0.375 g 3.375 gram 1 EA, IV Piggyback, b0ujUnnxvxdjxy: (2)Lactated Ringers 1,000 mL 1,000 mL, IV, 125 mL/hrSodium Chloride 0.9% 2,190 mL 2,190 mL, IV, 999 mL/hrPRN: (6)acetaminophen 325 mg Tab UD [F] 650 mg 2 tab(s), Oral, l4yoopqjfqcjs 0.083% Inh Mary 3 mL [F] 2.5 mg 3 mL, NEB, j8iqgkllbyxnl CFC free 90 mcg/inh Inh Aer w/Adapt 8.5 gm [F] 180 microgram 2 puff(s), Inhalation, g2ihbxrcoakfs 30 mg/mL Inj 1 mL [F] 30 mg 1 mL, IV, e0qtjbeyatop 10 mg/mL preservative-free SOLN [F] 4 mg 0.4 mL, IV Push, d7wfgrqmvsrosfk 2 mg/mL Inj [F] 4 mg 2 mL, IV Push, q6hr Problem list: All ProblemsImpaired skin integrity / SNOMED CT 95102416 / ConfirmedProblem added on documentation of skin impairments.Smoker / IMO [id number] / ConfirmedAdded secondary to documentation in Social History. Histories Past Medical History: ResolvedAsthma ([id number]): Resolved. Family History: AsthmaMother Procedure history: Incision AND drainage (SNOMED CT 429163444).Comments:10/06/2017 06:12 - Philippe Cabezas RN right hand Social History Social & Psychosocial JtuepuIbuqblb16/26/2017 Risk Assessment: Denies Alcohol UseSubstance Abuse10/05/2017 Risk Assessment: Denies Substance MristUrbenyf80/26/2017 Risk Assessment: High Risk10/05/2017 Use: Current Every [...] 72.6 % Lymph Auto 9.3 % LOW Morehouse Auto 12.0 % Eos Auto 5.6 % Basophil Auto 0.5 % Neutro Absolute 11.5 E9/L HI Lymph Absolute 1.5 E9/L Morehouse Absolute 1.9 E9/L HI Eos Absolute 0.9 [...] Delarosa MD on October 08, 2017 08:58 [facility] info: [id number], Jin Ariel, Inpatient, 10/05/2017 - . Condition: [...] D and deep tissue culture result. Normal [facility] Comment on above: Result Comment: Elec tronically [...] MD Transcribed by: JENNIFFER Technologist: BRIT Normal [facility] eGFRon 10-08-2017 eGFR (black) mL/min/{1.73_m2} Normal >=59 [facility] Comment on above: Order Comment: Order added by Discern Expert. Result Comment: eGFR is race adjusted. AA=. Performed By: #### 1 4476468, 2365487, 50822573, 7527079, 95784446, 6307746, 5657511 ####[facility] [address] [place] [address] eGFR (non-black) mL/min/{1.73_m2} Normal >=59 [facility] Comment on above: Order Comment: Order added by Discern Expert. Result Comment: Therapeutic Riding Instructor curt kidney disease could be indicated at eGFR's of less than 60 mL/min/1.73m2. Kidney failure is indicated at less than 15 mL/min/1.73m2. Performed By: #### 1 7243971, 3245950, 63149885, 8295095, 00196087, 0498368, 8592492 ####[address] [place] [address] .Manual Abson 10-07-2017 BASOPHILS/LEUKOCYT ES:NFR.DF:PT:BLD:Q N:MANUAL COUNT 0.0 E9/L Normal 0.0-0.2 [facility] Comment on above: Performed By: #### 1 0240150, 2014719, 97740758, 5156077, 46652185, 1376535, 0041706 ####[facility] [address] [place] [address] EOSINOPHILS/LEUKOC YTES:NFR.DF:PT:BLD :QN:MANUAL COUNT 1.0 E9/L High 0.0-0.5 [facility] Comment on above: Performed By: #### 1 5980686, 9271043, 05432678, 0222120, 92283540, 9638774, 4904395 ####[facility] [address] [place] [address] LYMPHOCYTES/LEUKOC YTES:NFR.DF:PT:BLD :QN:MANUAL COUNT 2.6 E9/L Normal 1.0-4.0 [facility] Comment on above: Performed By: #### 1 9673845, 0627704, 36191954, 8982990, 16548302, 6469583, 7167148 ####[address] [place] [address] MONOCYTES/LEUKOCYT ES:NFR.DF:PT:BLD:Q N:MANUAL COUNT 1.4 E9/L High 0.2-1.0 [facility] Comment on above: Performed By: #### 1 5259829, 5203744, 60808046, 7907505, 06059469, 7464011, 6793592 ####[facility] [address] [place] [address] Neutrophils 12.4 E9/L High 2.0-7.5 [facility] Comment on above: Performed By: #### 1 6325165, 9832868, 99150350, 9068672, 69041472, 6602416, 6469156 ####[facility] [address] [place] [address] Dino 10-07-2017 Alanine aminotransferase (ALT) 65 Int._Unit/L High 6-46 [facility] Comment on above: Performed By: #### 1 1619575, 4516964, 84728549, 9470704, 29659151, 8516989, 1936622 ####[facility] [address] [place] [address] Navid 10-07-2017 Aspartate aminotransferase (AST) 45 Int._Unit/L High 5-43 [facility] Comment on above: Performed By: #### 1 2728721, 6921937, 29073234, 5902889, 74413773, 3845971, 8863973 ####[facility] [address] [place] [address] Alk Phoson 10-07-2017 Alkaline phosphatase (ALP) 185 Int._Unit/L High 21-98 [facility] Comment on above: Performed By: #### 1 0359445, 3575265, 57525575, 7341721, 86332790, 9107637, 7359904 ####[facility] [address] [place] [address] BMPon 10-07-2017 Anion gap 10 mmol/L Normal 6-16 [facility] Comment on above: Order Comment: to be drawn all together at 7:30-8:00 per nurse Performed By: #### 1 8447674, 5766885, 56700318, 5521456, 23098722, 9159328, 6233912 ####[facility] [address] [place] [address] BUN/Creatinine Ratio 10 No Units Normal 10-20 [facility] Comment on above: Order Comment: to be drawn all together at 7:30-8:00 per nurse Performed By: #### 1 8195084, 0566341, 85106069, 7410368, 31273951, 0568125, 8676332 ####[facility] [address] [place] [address] Calcium 7.9 mg/dL Low 8.9-11.1 [facility] Comment on above: Order Comment: to be drawn all together at 7:30-8:00 per nurse Performed By: #### 1 8246103, 7920133, 58146865, 3454700, 32421566, 5592898, 6751841 ####[facility] [address] [place] [address] Chloride 102 mmol/L Normal 101-111 [facility] Comment on above: Order Comment: to be drawn all together at 7:30-8:00 per nurse Performed By: #### 1 6740284, 2507805, 68074225, 0473493, 01789399, 6432259, 0731691 ####[facility] [address] [place] [address] CO2 25 mmol/L Normal 21-31 [facility] Comment on above: Order Comment: to be drawn all together at 7:30-8:00 per nurse Performed By: #### 1 2395531, 1034117, 90398120, 7007339, 83387839, 9074316, 4874303 ####[facility] [address] [place] [address] Creatinine 0.8 mg/dL Normal 0.5-1.3 [facility] Comment on above: Order Comment: to be drawn all together at 7:30-8:00 per nurse Performed By: #### 1 4037921, 0625931, 81223653, 4610839, 25961779, 4926088, 2763662 ####[facility] [address] [place] [address] Glucose mass conc 94 mg/dL Normal 55-199 [facility] Comment on above: Order Comment: to be drawn all together at 7:30-8:00 per nurse Result Comment: If t his glucose result represents a fasting glucose, interpretation should refer to the following reference range: 55-99 mg/dL Performed By: #### 1 0366596, 2431686, 51857695, 1494267, 99967137, 5173569, 5901644 ####[facility] [address] [place] [address] Potassium molar conc 3.5 mmol/L Normal 3.5-5.3 [facility] Comment on above: Order Comment: to be drawn all together at 7:30-8:00 per nurse Performed By: #### 1 9998355, 9124438, 47931676, 6883918, 04487775, 9974078, 4171936 ####[facility] [address] [place] [address] Sodium 133 mmol/L Low 135-145 [facility] Comment on above: Order Comment: to be drawn all together at 7:30-8:00 per nurse Performed By: #### 1 3950000, 2189631, 70978970, 6328720, 61048911, 4714193, 4231634 ####[facility] [address] [place] [address] Urea nitrogen 8 mg/dL Normal 5-21 [facility] Comment on above: Order Comment: to be drawn all together at 7:30-8:00 per nurse Performed By: #### 1 1286885, 2612873, 90199413, 2792877, 15554210, 3233120, 4722248 ####[facility] [address] [place] [address] CBC w/ Auto Diffon 7 Erythrocyte distribution width Auto Ratio (RBC) 13.3 % Normal 10.9-14.2 [facility] Comment on above: Performed By: #### 1 8758171, 2407460, 79148305, 9943983, 66604274, 7544871, 5001845 ####[facility] [address] [place] [address] Erythrocytes (RBC) 3.7 E12/L Low 4.3-5.9 [facility] Comment on above: Performed By: #### 1 0451650, 4871564, 64270869, 9965662, 27784458, 3223571, 3046420 ####[address] [place] [address] Hematocrit (HCT) 34.2 % Low 37.7-49.0 [facility] Comment on above: Performed By: #### 1 6093740, 9749050, 97663768, 8044213, 77954009, 4527390, 3429468 ####[address] [place] [address] Hemoglobin mass conc (Bld) 11.5 g/dL Low 13.5-17.5 [facility] Comment on above: Performed By: #### 1 9996492, 2375589, 85709637, 2938924, 80506901, 0106162, 8443360 ####[address] [place] [address] MCH 31.0 pg Normal 27.0-34.0 [facility] Comment on above: Performed By: #### 1 2125193, 4691829, 98125959, 9037214, 30377785, 2398134, 0749644 ####[address] [place] [address] MCHC mass conc (RBC) 33.7 g/dL Normal 31.4-39.3 [facility] Comment on above: Performed By: #### 1 8913466, 5641486, 88447514, 6389837, 08712772, 3071044, 5381468 ####[address] [place] [address] MCV 92.2 fL Normal 80.0-100.0 [facility] Comment on above: Performed By: #### 1 0607787, 5022412, 28561263, 0178755, 42749622, 5236593, 0128598 ####[address] [address] Platelet mean volume (PMV) 7.0 fL Normal 6.4-10.8 [facility] Comment on above: Performed By: #### 1 7578468, 8137929, 09667489, 1404724, 12166624, 6105603, 2880585 ####[address] [address] Platelets 323.0 E9/L Normal 150.0-500. 0 [facility] Comment on above: Performed By: #### 1 0793839, 6947270, 31089736, 8017318, 76570025, 9661992, 4736320 ####[address] [address] WBC (Leukocytes) 19.7 E9/L High 4.0-11.0 [facility] Comment on above: Performed By: #### 1 5261443, 6246304, 57649379, 4257766, 65414044, 6187310, 7963139 ####[address] [address] Coding Queryon 10-07-2017 Coding Query -From: Cayetano [...] in addition to fever. thank you. Normal [facility] Interdisciplinary Note - Brett e Manageron 10-07-2017 Interdisciplinary Note - Lock Master Rounding with Dr. Davidson, Marisa [facility], Trey [facility], Maryann RN. Whiteboard updated. No family present. Dr. Cyr to see tomorrow. Pt. in isolation. Pt. aware of plan to stay today and Dr. Cyr to see tomorrow. Normal [facility] Manual Diffon 10-07-2017 BASOPHILS:NCNC:PT: BLD:QN:MANUAL COUNT 0 % Normal 0-2 [facility] Comment on above: Order Comment: Order Added by Discern Expert. Performed By: #### 1 8936243, 2292007, 97590003, 1286345, 40810100, 0044608, 3413369 ####[facility] [address] [place] [address] Blood morphology Normal Normal [facility] Comment on above: Order Comment: Order Added by Discern Expert. Performed By: #### 1 4693194, 3704603, 93124851, 1831895, 99555165, 2309425, 8510006 ####[facility] [address] [place] [address] DOHLE BODY:PRTHR:PT:BLD: ORD:MICROSCOPY.LIG HT Present Normal [facility] Comment on above: Order Comment: Order Added by Discern Expert. Performed By: #### 1 5093313, 3092561, 12667311, 7620573, 55560313, 6703235, 8800644 ####[facility] [address] [place] [address] EOSINOPHILS:NCNC:P T:BLD:QN:MANUAL COUNT 5 % Normal 0-8 [facility] Comment on above: Order Comment: Order Added by Discern Expert. Performed By: #### 1 9581504, 4488088, 51143594, 8342861, 80794443, 2263930, 4072566 ####[facility] [address] [place] [address] LYMPHOCYTES:NCNC:P T:BLD:QN:MANUAL COUNT 13 % Low 14-50 [facility] Comment on above: Order Comment: Order Added by Discern Expert. Performed By: #### 1 0377255, 1546169, 50946977, 0985102, 03084208, 1322877, 0780353 ####[facility] [address] [place] [address] MONOCYTES:NCNC:PT: BLD:QN:MANUAL COUNT 7 % Normal 4-14 [facility] Comment on above: Order Comment: Order Added by Discern Expert. Performed By: #### 1 7385617, 4562423, 31516808, 9238331, 54141588, 9273728, 0177520 ####[facility] [address] [place] [address] Neutrophils band/100 leukocytes 12 % High 0-10 [facility] Comment on above: Order Comment: Order Added by Discern Expert. Performed By: #### 1 4031626, 1828403, 12454156, 9554521, 74365793, 1223277, 3673936 ####[facility] [address] [place] [address] NEUTROPHILS.SEGMEN RENETTA:NCNC:PT:BLD:QN :MANUAL COUNT 63 % Normal 36-75 [facility] Comment on above: Order Comment: Order Added by Discern Expert. Performed By: #### 1 8809678, 5095875, 06119550, 9463476, 98175372, 0695342, 0500344 ####[facility] [address] [place] [address] PLATELETS.LARGE:TN THR:PT:BLD:ORD:LARISA ROSCOPY.LIGHT Present Normal [facility] Comment on above: Order Comment: Order Added by Discern Expert. Performed By: #### 1 2855968, 6755777, 16935653, 6996459, 03116746, 5779710, 5583164 ####[facility] [address] [place] [address] Toxic Gran Present Normal [facility] Comment on above: Order Comment: Order Added by Margo Expert. Performed By: #### 1 0308591, 3302904, 61975707, 8796541, 63961470, 6555958, 6138295 ####[facility] [address] [place] [address] Progress Note-Physicianon Progress Note-Physician Patient: WILLOW WILKES [...] g 3.375 gram 1 EA, IV Piggyback, j0yeixyaxfzmue + Sodium Chloride 0.9% 500 mL 2 gram 2 EA, IV Piggyback, e69rnKbhxujcrsr: (2)Sodium Chloride 0.9% 1,000 mL 1,000 mL, IV, 125 mL/hrSodium Chloride 0.9% 2,190 mL 2,190 mL, IV, 999 mL/hrPRN: (6)acetaminophen 325 mg Tab UD [F] 650 mg 2 tab(s), Oral, o5ekblghqqbtz 0.083% Inh Mary 3 mL [F] 2.5 mg 3 mL, NEB, d3gixyejgxyxd CFC free 90 mcg/inh Inh Aer w/Adapt 8.5 gm [F] 180 microgram 2 puff(s), Inhalation, s9jdlniraomtm 30 mg/mL Inj 1 mL [F] 30 mg 1 mL, IV, j6oueovwwtkz 10 mg/mL preservative-free SOLN [F] 2 mg 0.2 mL, IV Push, u7ssuvccuhevyfl 2 mg/mL Inj [F] 4 mg 2 mL, IV Push, q6hr Problem list: All ProblemsImpaired skin integrity / SNOMED CT 74522126 / ConfirmedProblem added on documentation of skin impairments.Smoker / IMO 259351 / ConfirmedAdded secondary to documentation in Social [...] E9/L HI Lymph Abs Man 2.6 E9/L Morehouse Abs Man 1.4 E9/L HI Eos Abs [...] officially consult surgery for possible I&D Normal [facility] Comment on above: Result Comment: Elec tronically Signed By: Jesse Davidson DO\.br\Date and Time Signed: 10/07/17 16:33 EST Vanco Troughon 10-07-2017 VANCOMYCIN 13 microgram/mL Normal 10-20 [facility] Comment on above: Performed By: #### 1 3687060, 4413165, 41932843, 3631957, 07427122, 3888948, 2612622 ####[facility] [address] [place] [address] eGFRon 10-07-2017 eGFR (black) mL/min/{1.73_m2} Normal >=59 [facility] Comment on above: Order Comment: Order added by Discern Expert. Result Comment: eGFR is race adjusted. AA=. Performed By: #### 1 6403625, 1441212, 78507808, 1329426, 15489873, 6963716, 3270972 ####[facility] [address] [place] [address] eGFR (non-black) mL/min/{1.73_m2} Normal >=59 [facility] Comment on above: Order Comment: Order added by Discern Expert. Result Comment: Therapeutic Riding Instructor curt kidney disease could be indicated at eGFR's of less than 60 mL/min/1.73m2. Kidney failure is indicated at less than 15 mL/min/1.73m2. Performed By: #### 1 2348151, 1949944, 87095157, 0412227, 61324319, 9717549, 4464034 ####[facility] [address] [place] [address] .Manual Abson 10-06-2017 BASOPHILS/LEUKOCYT ES:NFR.DF:PT:BLD:Q N:MANUAL COUNT 0.0 E9/L Normal 0.0-0.2 [facility] Comment on above: Performed By: #### 1 6615218, 8501621, 47764235, 3524287, 56546967, 5222680, 9571122 ####[facility] [address] [place] [address] EOSINOPHILS/LEUKOC YTES:NFR.DF:PT:BLD :QN:MANUAL COUNT 0.0 E9/L Normal 0.0-0.5 [facility] Comment on above: Performed By: #### 1 9048297, 5482786, 69316044, 0028835, 99816864, 9296306, 7168684 ####[address] [address] LYMPHOCYTES/LEUKOC YTES:NFR.DF:PT:BLD :QN:MANUAL COUNT 1.0 E9/L Normal 1.0-4.0 [facility] Comment on above: Performed By: #### 1 1517010, 2194816, 53341721, 7221374, 41059767, 5747259, 2095233 ####[address] [address] MONOCYTES/LEUKOCYT ES:NFR.DF:PT:BLD:Q N:MANUAL COUNT 2.6 E9/L High 0.2-1.0 [facility] Comment on above: Performed By: #### 1 2367153, 6025218, 64867431, 9345336, 48672281, 3353734, 6284773 ####[address] [address] Neutrophils 15.4 E9/L High 2.0-7.5 [facility] Comment on above: Performed By: #### 1 6140091, 3078753, 38961515, 1938547, 11474764, 0833725, 4021085 ####[address] [address] CBC w/ Auto Diffon 7 Erythrocyte distribution width Auto Ratio (RBC) 13.4 % Normal 10.9-14.2 [facility] Comment on above: Performed By: #### 1 3857400, 9708786, 50520465, 5157590, 18141012, 3191126, 2948355 ####[address] [address] Erythrocytes (RBC) 4.1 E12/L Low 4.3-5.9 [facility] Comment on above: Performed By: #### 1 7957564, 2078202, 53147015, 6438490, 42635907, 0800220, 4250861 ####[address] [address] Hematocrit (HCT) 37.7 % Normal 37.7-49.0 [facility] Comment on above: Performed By: #### 1 6841514, 6783513, 52283132, 6255776, 92096159, 0121672, 9202813 ####[facility] [address] [place] [address] Hemoglobin mass conc (Bld) 13.0 g/dL Low 13.5-17.5 [facility] Comment on above: Performed By: #### 1 7093416, 6912883, 48558348, 5808361, 18613714, 2944735, 9553075 ####[address] [place] [address] MCH 31.6 pg Normal 27.0-34.0 [facility] Comment on above: Performed By: #### 1 4820689, 7830140, 21419332, 7625574, 18911557, 1564689, 2732636 ####[facility] [address] [place] [address]257 MCHC mass conc (RBC) 34.5 g/dL Normal 31.4-39.3 [facility] Comment on above: Performed By: #### 1 2804619, 1913704, 36250691, 6208025, 01011979, 8106042, 8192906 ####[address] [place] [address]257 MCV 91.5 fL Normal 80.0-100.0 [facility] Comment on above: Performed By: #### 1 0260923, 8879194, 58157910, 4449660, 07586105, 0496862, 9144718 ####[address] [place] [address]257 Platelet mean volume (PMV) 7.7 fL Normal 6.4-10.8 [facility] Comment on above: Performed By: #### 1 0333516, 2556497, 73067214, 6006784, 69249488, 3106307, 2023223 ####[address] [place] [address] Platelets 309.0 E9/L Normal 150.0-500. 0 [facility] Comment on above: Performed By: #### 1 8185383, 1685089, 49453625, 2086021, 05823798, 8678748, 2402586 ####[address] [place] [address] WBC (Leukocytes) 19.7 E9/L High 4.0-11.0 [facility] Comment on above: Performed By: #### 1 9957410, 1617299, 07931979, 0432544, 95895992, 7940423, 8965447 ####[address] [address] CMPon 10-06-2017 Alanine aminotransferase (ALT) 61 Int._Unit/L High 6-46 [facility] Comment on above: Performed By: #### 1 6901331, 5250225, 46583171, 3637131, 19705742, 3339653, 3495070 ####[address] [address] Albumin 0.7 g/dL Low 1.1-2.2 [facility] Comment on above: Performed By: #### 1 2707433, 2497476, 41791827, 8998663, 80194921, 5178179, 3290132 ####[address] [address] Albumin 2.8 g/dL Low 3.3-5.0 [facility] Comment on above: Performed By: #### 1 6736685, 0443116, 83898172, 0873633, 99690999, 4942336, 4635637 ####[address] [address] Alkaline phosphatase (ALP) 147 Int._Unit/L High 21-98 [facility] Comment on above: Performed By: #### 1 7409778, 7561583, 48248384, 2692091, 14149818, 2489568, 3087037 ####[facility] [address] [place] [address] Anion gap 13 mmol/L Normal 6-16 [facility] Comment on above: Performed By: #### 1 3603022, 2621951, 86917057, 1224276, 48651605, 7923904, 3240600 ####[facility] [address] [place] [address] Aspartate aminotransferase (AST) 49 Int._Unit/L High 5-43 [facility] Comment on above: Performed By: #### 1 4958802, 3350204, 80022958, 6821082, 28709335, 0638812, 2304952 ####[facility] [address] [place] [address] Bilirubin (total) 1.0 mg/dL Normal 0.0-1.1 [facility] Comment on above: Performed By: #### 1 4993342, 8848709, 79699643, 6588375, 63120303, 9564938, 9990020 ####[facility] [address] [place] [address] BUN/Creatinine Ratio 14 No Units Normal 10-20 [facility] Comment on above: Performed By: #### 1 9382568, 5774108, 37906491, 2500776, 69849064, 3318346, 0612057 ####[facility] [address] [place] [address] Calcium 8.5 mg/dL Low 8.9-11.1 [facility] Comment on above: Performed By: #### 1 1378757, 0639199, 00741213, 1413916, 63362532, 3903720, 8681965 ####[facility] [address] [place] [address] Chloride 93 mmol/L Low 101-111 [facility] Comment on above: Performed By: #### 1 8030755, 7651674, 38779534, 5736120, 86639029, 5743862, 2824856 ####[facility] [address] [place] [address] CO2 25 mmol/L Normal 21-31 [facility] Comment on above: Performed By: #### 1 3942860, 1000400, 04344509, 1861333, 64286690, 5721445, 9700228 ####[facility] [address] [place] [address] Creatinine 0.9 mg/dL Normal 0.5-1.3 [facility] Comment on above: Performed By: #### 1 0310080, 1841179, 42709821, 8548571, 22416532, 0283982, 9042779 ####[facility] [address] [place] [address] Globulin 3.8 g/dL Normal 1.4-4.0 [facility] Comment on above: Performed By: #### 1 2147732, 0895833, 66223989, 9533454, 67597129, 1467417, 3346952 ####[facility] [address] [place] [address] Glucose mass conc 107 mg/dL Normal 55-199 [facility] Comment on above: Result Comment: If t his glucose result represents a fasting glucose, interpretation should refer to the following reference range: 55-99 mg/dL Performed By: #### 1 9872966, 6304933, 83221408, 3220892, 11354838, 0911674, 2632476 ####[facility] [address] [place] [address] Potassium molar conc 4.1 mmol/L Normal 3.5-5.3 [facility] Comment on above: Performed By: #### 1 4235710, 8944394, 14215312, 8103211, 18108377, 8272185, 5811572 ####[facility] [address] [place] [address] Protein 6.6 g/dL Normal 6.0-7.8 [facility] Comment on above: Performed By: #### 1 1697206, 6750214, 41570072, 1590302, 01021491, 0902770, 0325176 ####[facility] [address] [place] 8349257 Sodium 127 mmol/L Low 135-145 [facility] Comment on above: Performed By: #### 1 5178385, 9436128, 83260161, 6616146, 86952044, 5081234, 7279845 ####[facility] [address] [place] [address] Urea nitrogen 13 mg/dL Normal 5-21 [facility] Comment on above: Performed By: #### 1 9813230, 1572688, 68051054, 1654126, 45091913, 6944870, 6500694 ####[facility] [address] [place] [address] ED Clinical Summaryon 2016 ED Clinical Summary [place] [id number] ED Clinical SummaryPerson Information Name: Juan Carlos WILKES/[facility] Age: 27 Years : 1990 12:00 AM Sex: Male Language:Tanzanian PCP: Myra Middleton MD Marital Status:Single Visit Id: Visit Reason:Increased heart rate; Nausea; Dizziness; Pain in back; CELLULITIS, PHLEGMON, TACHYCARDIA Speciality: Acuity: 3 Enc Type: Inpatient Med Service: Medical Arrival:10/05/2017 5:35 PM Discharge: LOS: 000 11:42 Checkin:10/05/2017 5:35 PM Checkout: 10/06/2017 5:17 AM Dispo Type: Admitted as IP to this [facility] EVENTS:Event Name Event Status Request Date/Time [...] AM Patient Care Request 10/06/2017 4:41 AM ADDRESS:[address] [place] [phone] [facility] DOC NOTES: MEDICAL INFORMATION: Prescriptions Given:PATIENT EDUCATION INFORMATION: Instructions: Follow up:DIAGNOSIS: Normal [facility] ED Patient Education Noteon 10-06-2017 ED Patient Education Note Patient Education Materials Follows: Normal [facility] ED Patient Summaryon 017 ED Patient Summary (Inserted Image. La ble to display) [place] [id number] Patient Discharge Instructions Person Information Name: WILLOW WILKES Age: 27 Years Date: 10/05/2017 5:35 PMDischarge Diagnosis: Primary Care Physician: Myra Middleton MD Provider InformationPrimary Provider: Анна Torres M.D.hysiciyeimy Deli Clerk:None The exam and treatment you received in the Emergency Department were for an urgent problem and are not intended as complete care. It is important that you follow up with a doctor, nurse practitioner, or physician?s assistant manager retail for ongoing care. If your symptoms become [...] Initial Volume 999.00 mL/hr IV Left Antecubital [place] Sodium Chloride 0.9% intravenous solution 1000.00 mL Initial Volume 999.00 mL/hr IV Left Antecubital [place] morphine 6.00 mg IV Push Left Antecubital [place] morphine 4.00 mg IV Push Left Antecubital [place] vancomycin 1.50 gram IV Piggyback Left Antecubital [place] piperacillin-tazobactam 3.38 gram IV Piggyback Left Antecubital [place] hydromorphone 1.00 mg IV Push Left Antecubital Diana Medication Information:Comment: Pharmacy Information: Thank you for choosing [facility] Patient Education Materials: CHUNG Bustamante RYAN , have received the following patient education materials/instructions and have verbalized understanding: Patient Education Materials: Follow-up Instructions: Prescriptions: Patient Signature Date Clinician/Nurse Signature Date 10/06/17 05:17:22 Normal [facility] History and Physicalon 10-06 History and Physical Patient: WILLOW WILKES Age: 27 years Sex: Male : 1990 Associated Diagnoses: None Author: Jesse Davidson DO Chief Complaint 10/05/2017 18:24 EST pain in mid back to hip. ongoing X2 weeks. was seen in [place] but was told it was just muscle spasms. xray and urin were obtained in [place]. History of Present Illness 27 Y/O presents [...] g 3.375 gram 1 EA, IV Piggyback, r5dgnpgzkedoyh + vancomycin + Sodium Chloride 0.9% 500 mL 1,750 mg, IV Piggyback, y60wwKhiaiqgsig: (2)Sodium Chloride 0.9% 1,000 mL 1,000 mL, IV, 125 mL/hrSodium Chloride 0.9% 2,190 mL 2,190 mL, IV, 999 mL/hrPRN: (2)morphine 2 mg/mL preservative-free SOLN [F] 2 mg 1 mL, IV Push, q1tbuzieiiqurau 2 mg/mL Inj [F] 4 mg 2 mL, IV Push, q6hr Problem list: All ProblemsSmoker / IMO [id number] / ConfirmedAdded secondary to documentation in Social History., Active Problems (1)Smoker Histories Past Medical History: ResolvedAsthma ([id number]): Resolved. Family History: AsthmaMother Procedure history: Incision AND drainage ([id number]).Comments:10/06/2017 06:12 - Raulito THOMPSON, Philippe right hand Social History Social & Psychosocial KlqlxsCwedgqt37/26/2017 Risk Assessment: Denies Alcohol UseSubstance Abuse10/05/2017 Risk Assessment: Denies Substance GqoarCbpyktv22/26/2017 Risk Assessment: High Risk10/05/2017 Use: Current Every [...] E9/L HI Lymph Abs Man 1.0 E9/L Morehouse Abs Man 2.6 E9/L HI Eos Abs [...] 2 MN's to treat the above Normal [facility] Comment on above: Result Comment: Elec tronically Signed By: Jesse Davidson DO\.br\Date and Time Signed: 10/06/17 12:53 EST Interdisciplinary Note - Brett e Manageron 10-06-2017 Interdisciplinary Note - Lock Master CRM spoke with pt at bedside, white board updated, no family present. Pt states no PCP, list was provided at bedside. Pt understands plan is stay today, continue IV antibiotics, fluids, pain medication. Pt denies needs. Normal [facility] Lactic Acidon 10-06-2017 LACTATE:MCNC:PT:SE R/PLAS:QN: 5.1 mg/dL Normal 4.5-19.8 [facility] Comment on above: Performed By: #### 2 685987 ####[facility] [address] [place] [address] LACTATE:MCNC:PT:SE R/PLAS:QN: 7.7 mg/dL Normal 4.5-19.8 [facility] Comment on above: Performed By: #### 1 3134102, 0913953, 48016196, 1741517, 27247263, 8545949, 4880200 ####[facility] [address] [place] [address] Manual Diffon 10-06-2017 BASOPHILS:NCNC:PT: BLD:QN:MANUAL COUNT 0 % Normal 0-2 [facility] Comment on above: Order Comment: Order Added by Discern Expert. Performed By: #### 1 9097879, 8266336, 72873232, 2108844, 20676497, 3008509, 2179416 ####[facility] [address] [place] [address] Blood morphology Normal Normal [facility] Comment on above: Order Comment: Order Added by Discern Expert. Performed By: #### 1 8697309, 7523689, 13020556, 2566230, 58728778, 1136403, 7619211 ####[place] [address] [place] [address] EOSINOPHILS:NCNC:P T:BLD:QN:MANUAL COUNT 0 % Normal 0-8 [facility] Comment on above: Order Comment: Order Added by Discern Expert. Performed By: #### 1 8118182, 4972321, 63849653, 2026852, 41321156, 0651364, 1491540 ####[place] [address] [place] [address] LYMPHOCYTES:NCNC:P T:BLD:QN:MANUAL COUNT 5 % Low 14-50 [facility] Comment on above: Order Comment: Order Added by Discern Expert. Performed By: #### 1 2240643, 4141294, 15240787, 5043222, 37688753, 7201905, 2679802 ####[address] [address] MONOCYTES:NCNC:PT: BLD:QN:MANUAL COUNT 13 % Normal 4-14 [facility] Comment on above: Order Comment: Order Added by Discern Expert. Performed By: #### 1 3018821, 4877190, 59709129, 4383220, 93241724, 0933511, 6450806 ####[place] [address] [place] [address] Neutrophils band/100 leukocytes 4 % Normal 0-10 [facility] Comment on above: Order Comment: Order Added by Discern Expert. Performed By: #### 1 3602103, 5749054, 21741301, 1294554, 60320332, 9922399, 2412305 ####[place] [address] [place] [address] NEUTROPHILS.SEGMEN RENETTA:NCNC:PT:BLD:QN :MANUAL COUNT 78 % High 36-75 [facility] Comment on above: Order Comment: Order Added by Discern Expert. Performed By: #### 1 6614579, 5368235, 47079477, 4608720, 50376606, 2099513, 9066628 ####[facility] [address] [place] [address] PT & PTTon 10-06-2017 aPTT 30.1 second(s) Normal 25.1-36.5 [facility] Comment on above: Result Comment: Hepa rin therapeutic range (represented by Anti-Factor Xa activity of 0.2 - 0.4 U/mL) corresponds to PTT of 53.9 - 87.4 sec. Performed By: #### 1 4402433, 4230408, 78425438, 8688775, 16911895, 1917567, 3855857 ####[facility] [address] [place] [address] INR Coag RelTime (PPP) 1.2 {INR} Invalid Interpretation Code [facility] Comment on above: Result Comment: INR results are specifically intended to assess patients stabilized on long-term Anticoagulation therapy suggested INR?s ?Less Intensive Anticoagulation? 2.0 ? 3.0Conventional Range 3.0 ? 4.5 Performed By: #### 1 2499035, 0368723, 52790236, 8820679, 31531203, 9068160, 3968928 ####[facility] [address] [place] [address] Prothrombin time (PT) Coag time (PPP) 13.3 second(s) High 10.2-12.9 [facility] Comment on above: Performed By: #### 1 5559926, 0935251, 33809710, 3082702, 39096704, 2321699, 2156446 ####[facility] [address] [place] [address] Progress Note-Nurseon 2016 Progress Note-Nurse 2231 - Dr Torres at [id number] - Notified Dr. Torres pt requesting more [...] Pt ready to transfer upstairs to room 321S.1717 ----time clarification for last note above Normal [facility] UA With Cult Reflexon 2016 BACTERIA:PRTHR:PT: URINE SED:ORD:MICROSCOPY .LIGHT TRACE Normal Trace [facility] Comment on above: Performed By: #### 1 1988116 ####[facility] [address] [place] [address] Bilirubin Ql (U) Negative Normal Negative [facility] Comment on above: Performed By: #### 1 1889627 ####[facility] [address] [place] [address] COLOR:TYPE:PT:URIN E:NOM:AUTO YELLOW Normal Yellow [facility] Comment on above: Performed By: #### 1 6196098 ####[facility] [address] [place] [address] Erythrocytes (RBC) 0-3 Normal 0-3 [facility] Comment on above: Performed By: #### 1 3380011 ####[facility] [address] [place] [address] GLUCOSE:MCNC:PT:UR INE:QN:TEST STRIP Negative Normal Negative [facility] Comment on above: Performed By: #### 1 0168845 ####[facility] [address] [place] [address] KETONES:MCNC:PT:UR INE:QN:TEST STRIP TRACE Abnormal Negative [facility] Comment on above: Performed By: #### 1 9186603 ####[facility] [address] [place] [address] LEUKOCYTES:PRTHR:P T:URINE:ORD:AUTOMA RENETTA Negative Normal Negative [facility] Comment on above: Performed By: #### 1 5914274 ####[facility] [address] [facility] [place] [place] [address] UA Spec Desc Clean Catch Normal [facility] Comment on above: Performed By: #### 1 6680801 ####[facility] [address] [place] [address] Urine, clarity CLEAR Normal Clear [facility] Comment on above: Performed By: #### 1 0270568 ####[facility] [address] [place] [address] Urine, hemoglobin presence Negative Normal Negative [facility] Comment on above: Performed By: #### 1 1575571 ####[facility] [address] [place] [address] Urine, leukocytes in sedmiment 0-5 Normal 0-5 [facility] Comment on above: Performed By: #### 1 5282279 ####[facility] [address] [facility] [place] [address] Urine, mucus presence in sediment TRACE Normal [facility] Comment on above: Performed By: #### 1 5351200 ####[facility] [address] [facility] [place] [address] Urine, nitrite presence Negative Normal Negative [facility] Comment on above: Performed By: #### 1 0269895 ####[facility] [address] [facility] [place] [address] Urine, pH 7.0 [pH] Invalid Interpretation Code 5.0-9.0 [facility] Comment on above: Performed By: #### 1 1977808 ####[facility] [address] [facility] [place] [address] Urine, protein 1+ Abnormal Negative [facility] Comment on above: Performed By: #### 1 4978642 ####[facility] [address] [facility] [place] [address] Urine, specific gravity 1.010 Invalid Interpretation Code 1.005-1.03 0 [facility] Comment on above: Performed By: #### 1 2880603 ####[facility] [address] [place] [address] Urine, squamous cells in sediment 0-2 Normal 0-2 [facility] Comment on above: Performed By: #### 1 7754764 ####[facility] [address] [place] [address] Urine, urobilinogen 1.0 {Aleksandr'U}/dL Normal 0.0-1.0 [facility] Comment on above: Performed By: #### 1 2209542 ####[facility] [address] [place] [address] XR Chest 2 Viewson 7 XR Chest [...] MD Transcribed by: JENNIFFER Technologist: FLOYD Normal [facility] eGFRon 10-06-2017 eGFR (black) mL/min/{1.73_m2} Normal >=59 [facility] Comment on above: Order Comment: Order added by Discern Expert. Result Comment: eGFR is race adjusted. AA=. Performed By: #### 1 0673771, 4065785, 48139037, 4942671, 79417433, 2288827, 8330626 ####[facility] [address] [place] [address] eGFR (non-black) mL/min/{1.73_m2} Normal >=59 [facility] Comment on above: Order Comment: Order added by Discern Expert. Result Comment: Therapeutic Riding Instructor curt kidney disease could be indicated at eGFR's of less than 60 mL/min/1.73m2. Kidney failure is indicated at less than 15 mL/min/1.73m2. Performed By: #### 1 9676559, 5147105, 74192098, 6880172, 75292132, 4227334, 9831298 ####[facility] [address] [facility] [place] [address] Coding Summaryon 08-17-2017 Coding Summary CODING DATE: [facility] STATUS: Home PAYOR: Medicaid HMO ADMIT [...] Verma Revised Date Saved: 06/07/2017 02:49 pm [facility] Coding Summary CODING DATE: [facility] STATUS: Home PAYOR: Medicaid HMO ADMIT [...] Verma Revised Date Saved: 06/07/2017 02:48 pm [facility] Coding Summaryon 08-12-2017 Coding Summary CODING DATE: [facility] STATUS: Home PAYOR: Medicaid HMO ADMIT [...] Mira Verma Date Saved: 08/12/2017 12:26 pm [facility] Coding Summary CODING DATE: [address] [facility] STATUS: Home PAYOR: Medicaid HMO ADMIT [...] Mira Verma Date Saved: 08/12/2017 12:25 pm [facility] ED Clinical Summaryon 2016 ED Clinical Summary [facility] [address] [place], [place] [id number] ed Clinical SummaryPERSON INFORMATIONName: WILKESWILLOW Age: 27 Years Sex: MALEDOB: [birth year] MRN: Acct#:Visit Reason: Back pain; BACK PAIN Arrival:08/05/17 20:28:00 Discharge: 08/05/17 22:21:00LOS: 000 01:53 Check In: 08/05/17 20:28:00 Checkout:08/05/17 22:21:00Address:[address] [place] [id number]: Provider, NonePROVIDER INFORMATIONProvider Role Assigned UnassignedNeeraj Raphael [...] Radiculopathy; Back Pain, AdultFollow-Up:With: Address: When:ANJU CROCKER [address] [place] [address], [address] [id number] Business (1) Within 3 to 5 daysComments:Diagnosis [...] any questions.Prescriptions [facility] Address: When:None Provider Within 3 to 5 daysDIAGNOSIS:Accidental fall; L4-L5 disc bulge; Lumbar back pain with radiculopathy affecting right lower extremityComment: Normal [facility] ED Note - Otheron 08-06-2017 ED Note - Other In patients chart to check if items are scanned in. [Electronically Signed on: 08/06/2017 07:18 EDT] Judy Joe [Verified on: 08/06/2017 07:18 EDT] Judy Joe [facility] ED Note-Nursingon 08-06-2017 ED Note-Nursing Pt discharged home. Home care and follow-up instructions given tp pt. Pt verbalized understanding. VS are WNL. PA has spoken tp pt. 1 prescription sent home with pt. 2 prescriptions sent to [facility]. Pt ambulated self to exit. 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 Do not sit, drive, or instrumentation fitter one place for more than 30 minutes [...] as directed by your health care provider. Mupd-cqi-bsfkmsz medicines to reduce pain and inflammation are [...] Document Reviewed: 01/29/2015Magaly Interactive Patient Education ?2016 [employer] Normal [facility] ED Patient Summaryon 08-06-2 017 ED Patient Summary [facility] [address] [place], [place] [id number] pATIENT DISCHARGE INSTRUCTIONSPatient InformationName: CHUNGWILLOW Age: 27 YearsDate of : [birth year]MRN: [id number] For Visit: Back pain; BACK PAINArrival Time: 08/05/17 20:28:00Phone: Primary Care Physician: Provider, NoneAttending Physician: Luis F Hood DOComment:Visit Diagnosis:Diagnoses This Visit Accidental fall (W19.XXXA) Back pain ([id number]) L4-L5 disc bulge (M51.26) Lumbar back pain [...] any legal documentsWith: Address: When:ANJU ALEJANDROSterling [address] [facility], [place] [address] Business (1) Within 3 to 5 daysComments:Diagnosis [...] been electronically [facility] to [facility]: Address: When:None Provider Within 3 to 5 daysMedication Information:The exam and treatment you received today in the [facility] Emergency Department were for an urgent problem and are not intended as complete care. It is important for you to follow up with a doctor, nurse practitioner, or physician?s assistant manager retail for ongoing care. If your symptoms become [...] number so we can reach you if necessary.[facility] has provided you with a complete list of medications post discharge. Please inform your cold type artist/provider of your visit and for further instruction on these medications. Any specific questions regarding your chronic medications and dosages should be discussed with your primary care physician(s) and/or pharmacist. New MedicationsRITE [address] [id number], [phone] (orphenadrine 100 mg oral tablet, extended release) 1 tab(s) Oral 2 times a day as needed pain for 7 Days. Refills: 0.predniSONE (predniSONE 20 mg oral tablet) 2 tab(s) Oral every day for 5 Days. 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 Do not sit, drive, or instrumentation fitter one place for more than 30 minutes [...] as directed by your health care provider. Afya-kcj-sgasxku medicines to reduce pain and inflammation are [...] Released: 09/27/2006 Document Revised: 10/18/2015 Document Reviewed: 01/29/2015RickyGenePeeks Interactive Patient Education ?2016 [employer]. Viruses or BacteriaWhat?s got you sick?Antibiotics only [...] for Disease Control and Prevention June 2014 [facility] CT Spine Lumbar w/o Contrast on 08-05-2017 [...] changes. There is mild disc space narrowing [id number] to L3-L4. No definite acute fracture or [...] and upon the proximal portion of the J0dstkv root on the left, correlate clinically. There [...] ON THE LEFT, CORRELATE CLINICALLY.NILS Phillips #: [id number]: 08/06/2017T: 08/06/2017 Final Dictated by: David Ward MD SDictated DT/TM: 08/06/17 6:48Signed (Electronic Signature): David Ward MD 08/06/17 11:21 aTechnologist: [facility] ED Note - Physicianon 2016 ED Note - Physician Patient: WILLOW WILKES : 27 years Sex: MALE : [birth year]Associated Diagnoses: Lumbar back pain with radiculopathy affecting right lower extremity; Accidental fall; L4-L5 disc bulgeAuthor: Neeraj RaphaelBasic InformationAdditional information: Chief Complaint from Nursing Triage Note : Chief Zmblfypet91/26/17 20:41 EDT Chief Complaint Lower back pain [...] Social HistoryMedical history:ResolvedModerate persistent asthma with exacerbation ([id number]): Resolved.Pneumonia due to other specified bacteria (51638317): Resolved.Smoker ([id number]): Resolved.Comments: -Added secondary to documentation in Social History.Pain due to dental caries (41761722): Resolved..Surgical history:Colonoscopy normal (850856536) in 2015 at 25 Years..Family history:AsthmaMotherSisterGrand father (Maternal)Cancer - unknown originGrandfather (Paternal)FibromyalgiaMotherChr onic coughMother.Social history:Social & Psychosocial NuaipoNxlswxn85/06/2016 Risk Assessment: Low Risk Comment: denies - 03/25/2016 14:35 - Leila Chavez LPNEmployment/Uqmtwj1303/16/2016 Risk Assessment: Low Risk03/25/2016 Status: Employed 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/Bwmsahlousr06/15/2016 Lives with: MotherSubstance Abuse03/16/2016 Risk Assessment: Denies Substance ZludiYkwwrnh40/06/2016 Risk Assessment: Low Risk03/24/2017 Type: Cigarettes Comment: [...] mmHg SpO2 98 % Oxygen Therapy Room air.Bzrdtinlpdvz11/26/17 20:43 EDT Weight Dosing 74.840 kg08/05/17 20:43 [...] the form of prednisone, muscle relaxant, and Blackwell. I discussed them that in regards to [...] pain with radiculopathy affecting right lower extremity (VOA39-VG M54.17, Discharge, Medical)L4-L5 disc bulge (FIQ63-QL M51.26, Discharge, Medical)Accidental fall (PDF99-LV W19.XXXA, Discharge, Medical)PlanCondition: Improved, Stable.Disposition: Discharged: Time 08/05/17 21:59:00, to home.Prescriptions: Launch prescriptionsPharmacy:orphenadr ine 100 mg oral tablet, extended release (Prescribe): 100 mg, 1 tab(s), PO, BID, for 7 day(s), PRN: pain, 14 tab(s), 0 Refill(s)predniSONE 20 mg oral tablet (Prescribe): 40 mg, 2 tab(s), PO, Daily, for 5 day(s), 10 tab(s), 0 Refill(s)Blackwell 5 mg-325 mg oral tablet (Prescribe): 1 [...] questions.Prescriptions have been electronically transferred to right [facility]; None Provider Within 3 to 5 days.Counseled: Patient, Family, Regarding diagnosis, Regarding diagnostic results, Regarding treatment plan, Regarding prescription, Patient indicated understanding of instructions.[Electronically Signed on: 08/05/2017 22:28 EDT] Neeraj Raphael[Verified on: 08/05/2017 22:28 EDT] Neeraj Raphael [facility] ED Note-Nursingon 08-05-2017 ED Note-Nursing Pt presented to the ER with c/o Lower back. Pt states he slipped on a storage container lid and fell on his back. Pt has h/o lower back pain. Pt is awake and alert. VS are WNL. Lungs clear. Denies SOB, Chest pain, Dizziness, N/V. Respirations are regular, even, unlabored. Pt placed in gown. PA at bedside. [facility] Rad - Other Radiology Report on 08-05-2017 Rad - Other Radiology Report [id number] [facility] Coding Summaryon 06-07-2017 Coding Summary CODING DATE: [facility] STATUS: Home PAYOR: Medicaid HMO ADMIT [...] Duglas Verma' Date Saved: 06/07/2017 02:49 pm [facility] Coding Summary CODING DATE: [facility] STATUS: Home PAYOR: Medicaid HMO ADMIT [...] Mira Verma Date Saved: 06/07/2017 02:48 pm [facility] ED Clinical Summaryon 2016 ED Clinical Summary [facility] - Emergency [address] [place] [id number] ed Clinical SummaryPERSON INFORMATIONName: WILLOW WILKES Age: 26 Years Sex: MALEDOB: [birth year] MRN: Acct#:Visit Reason: Testicular pain; Testicular pain; PELVIC/TESTICULAR PAIN/ X 1 WEEK Arrival:06/01/17 23:15:00 Discharge: 06/02/17 00:17:00LOS: 000 01:02 Check In: 06/01/17 23:15:00 Checkout:06/02/17 00:17:00Address:[address] [place] [id number]: Provider, NonePROVIDER INFORMATIONProvider Role Assigned UnassVargas Kapoor [...] & time 06/01/17 23:24:00.Testicular painHistory of Present Fhxwijm47-gtiy-yll white male presents to the emergency room [...] recently tested negative for STDs. He reports mdww-aoy-ninalcn medications have not been helping his pain [...] underwear until this resolves..Impression and PlanDiagnosisLeft epididymitis (SAO45-EC N45.1, Discharge, Medical)PlanCondition: Improved.Disposition: Discharged: to home.Prescriptions: [...] Within 3 to 5 daysDIAGNOSIS:Left epididymitisComment: Normal [facility] ED Note - Physicianon 2016 ED Note - Physician Patient: WILLOW WILKES : 26 years Sex: MALE : [birth year]Associated Diagnoses: Left epididymitisAuthor: Vargas Anthony InformationTime seen: Date & time 06/01/17 23:24:00.Testicular painHistory of Present Pwtsreb63-cayn-bvv white male presents to the emergency room [...] recently tested negative for STDs. He reports cdiz-ydg-ferniiu medications have not been helping his pain [...] underwear until this resolves..Impression and PlanDiagnosisLeft epididymitis (VLZ39-WE N45.1, Discharge, Medical)PlanCondition: Improved.Disposition: Discharged: to home.Prescriptions: [...] on: 06/01/2017 23:41 EDT] Vargas Anthony MD [facility] ED Note-Nursingon 06-02-2017 ED Note-Nursing Discharge and follow -up instructions reviewed with patient, including criteria/conditions for return to ED if necessary. Prescriptions (2 - sent electronically to pt's preferred pharmacy) and medication instructions also reviewed; pt verbalizes understanding of all instructions, offers no questions. Patient without c/o or s/s distress; ambulated out of ED without incidence, gait steady. [facility] ED Patient Education Noteon 06-02-2017 ED Patient [...] responded to other treatments.HOME CARE INSTRUCTIONSMedicines?? Take ufey-cjt-ybmaxwd and prescription medicines only as told by [...] Document Reviewed: 02/12/2016Magaly Interactive Patient Education ?2016 [employer]. Normal [facility] ED Patient Summaryon 017 ED Patient Summary [facility] - Emergency [address] [place] [address] pATIENT DISCHARGE INSTRUCTIONSPatient InformationName: WILKESWILLOW Age: 26 YearsDate of : [birth year]MRN: [id number] Visit: Testicular pain; Testicular pain; PELVIC/TESTICULAR PAIN/ X 1 WEEKArrival Time: 06/01/17 23:15:00Phone: Primary Care Physician: Provider, NoneAttending Physician: Vargas Anthony MDComment:Visit Diagnosis:Diagnoses This Visit Left epididymitis (N45.1) Testicular pain ([id number] 042A31) Testicular pain ([id number] 042A31)If you received any narcotics, sedation, or [...] and treatment you received today in the [facility] Emergency Department were for an urgent problem and are not intended as complete care. It is important for you to follow up with a doctor, nurse practitioner, or physician?s assistant manager retail for ongoing care. If your symptoms become [...] number so we can reach you if necessary.[facility] Emergency Department has provided you with a complete list of medications post discharge. Please inform your cold type artist/provider of your visit and for further instruction on these medications. Any specific questions regarding your chronic medications and dosages should be discussed with your primary care physician(s) and/or pharmacist. [facility], [address] [place] [address] [phone], [phone] (doxycycline hyclate 100 mg oral capsule) 1 [...] responded to other treatments.HOME CARE INSTRUCTIONSMedicines?? Take eqbo-csr-lxmfprb and prescription medicines only as told by [...] Document Reviewed: 02/12/2016Magaly Interactive Patient Education ?2016 [employer]. Viruses or BacteriaWhat?s got you sick?Antibiotics only [...] for Disease Control and Prevention June 2014 [facility] Operative Reporton [id number] Operative Report MR#: [id number] [facility] Pt. Name: Willow Wilkes Room [...] appeared to have healthy granulation tissue present. Eden was usedto minimally undermine the edges of [...] Date Dict: 04/09/2017//Katharine Pak Trans: 04/11/2017 08:21 A/Neil_JN:[id number]/ Normal [facility] Encounters Encounter Date Encounter Type Care Provider Facility Start: 08-03-2024 End: 08-03-[address] [facility] Start: 08-02-2024 End: 08-02-2024 ambulatory [facility] Start: 08-02-2024 Encounter for preprocedural laboratory examination [facility] Start: 06-22-2024 End: 06-23-2024 Emergency department patient visit HAYES POOL [facility] Start: 06-09-2024 End: 06-09-2024 ambulatory [facility] Start: 06-05-2024 End: 06-05-2024 ambulatory [facility] Start: 04-09-2024 End: 04-10-2024 Emergency department patient visit ROME CANALES [facility] Start: 03-03-2024 End: 03-04-2024 Emergency department patient visit WILLOW MATTA [facility] Start: 03-03-2024 End: 03-03-2024 Emergency department patient visit PLACIDO SMITH [facility] Start: 12-16-2023 End: 12-16-2023 ambulatory JUSTIN Janae VILLAREAL Not Available Start: 12-15-2023 End: 12-16-2023 Emergency department patient visit CANDELARIO ABDI [facility] Start: 11-28-2023 End: 11-29-2023 Emergency department patient visit JOSHUA PROCTOR [facility] Start: 05-27-2020 End: 05-28-2020 Patient encounter procedure PLACIDO SMITH Facility:[facility] Start: 04-05-2020 End: 04-06-2020 Patient encounter procedure PLACIDO LUIS Facility: Start: 03-24-2020 End: 03-25-2020 Patient encounter procedure LITTLE GARCIA Facility: Start: 11-11-2017 End: 11-12-2017 Ambulatory Sammie Spaulding Char Facility:[facility] Start: 10-28-2017 End: 10-29-2017 Ambulatory Sammie Pardo Facility:[facility] Start: 10-06-2017 End: 10-16-2017 Evaluation and management of inpatient Myra~[id number] UNKNOWN [place] Facility:[facility] Start: 08-06-2017 End: 08-12-2017 Ambulatory None Provider Facility:[facility] Start: 08-06-2017 End: 08-12-2017 Emergency department patient visit None Provider Facility:[facility] Start: 06-02-2017 End: 06-02-2017 Emergency department patient visit None Provider Facility:[facility] Start: 06-02-2017 End: 06-02-2017 Ambulatory Vargas Anthony Facility:[facility] Start: 04-09-2017 End: 04-10-2017 Ambulatory OVI LANGE Facility:[facility] Procedures Date Procedure Procedure Detail Performing Clinician Start: 04-09-2017 ANESTH LOWER ARM SURGERY FIDENCIO RAY Start: 04-09-2017 Debridement muscle & fascia 20 sq cm/< OVI STAFFORDHEIM Payers Date Payer Category Payer Private Health Insurance [id number] 2023 Unknown [id number] 2023 Unknown [id number] 2017 Unknown [id number] 1989 Unknown [id number] 2.16.84 0.1.814959.3.579.2.593 1989 Unknown [id number] 2.16.84 0.1.291339.3.579.2.593 1989 Unknown [id number] 2.16.84 0.1.725805.3.579.2.593 1989 Unknown [id number] 2.16.84 0.1.023601.3.579.2.9 1989 Unknown [id number] 2.16.8 40.1.577152.3.579.2.1285 1989 Unknown [id number] 2.16.8 40.1.241671.3.579.2.1285 1989 Unknown [id number] 2.16.8 40.1.697570.3.579.2.1285 1989 Unknown [id number] 2.16.8 40.1.260630.3.579.2.1285 1989 Unknown [id number] 2.16.8 40.1.819107.3.579.2.1285 1989 Unknown [id number] 2.16.8 40.1.310424.3.579.2.1285 1989 Unknown [id number] 2.16.8 40.1.185056.3.579.2.1285 1989 Unknown [id number] 2.16.8 40.1.059368.3.579.2.1285 1989 Unknown [id number] 2.16.8 40.1.392314.3.579.2.1285 1989 Unknown [id number] 2.16.8 40.1.859730.3.579.2.1285 1989 Unknown [id number] 2.16.8 40.1.521147.3.579.2.1285 1989 Unknown [id number] 2.16.8 40.1.219424.3.579.2.1286 1989 Unknown [id number] 2.16.8 40.1.648909.3.579.2.128 1989 Unknown [id number] 2.16.8 40.1.707685.3.579.2.1286 1989 Unknown [id number] 2.16.8 40.1.196862.3.579.2.128 1989 Unknown [id number] 2.16. 840.1.834519.3.579.2.93 1959 Unknown [id number] Summary Purpose Family History No Family History [...] section and content) DATE CREATED AUTHOR 04/04/2018 [facility] DATE CREATED AUTHOR AUTHOR'S ORGANIZ ATION 04/05/2018 [facility] DATE CREATED AUTHOR AUTHOR'S ORGANIZ ATION 04/06/2018 [facility] DATE CREATED AUTHOR AUTHOR'S ORGANIZ ATION [facility]02/[facility] DATE CREATED AUTHOR AUTHOR'S ORGANIZ ATION 12/17/2023 [facility] DATE CREATED AUTHOR AUTHOR'S ORGANIZ ATION 06/06/2024 [facility] DATE CREATED AUTHOR AUTHOR'S ORGANIZ ATION 08/03/2024 [facility] DATE CREATED AUTHOR AUTHOR'S ORGANIZ ATION 08/12/2024 [facility] FOR RECORDS PERTAINING TO PATIENTS [...] BE BASED ON THE PRIMARY CLINICAL RECORDS. [employer] [facility]. provides no warranty or guarantee of the accuracy or completeness of information in this document.
[2024-09-09] MEDS: METHYLPREDNISOLONE SOD SUCC PF 40 MG/ML VIAL IVP ×3 (06:37→21:40)
[2024-09-09 06:42] LABS: Hematocrit 44.2 % (42.0-54.0); Hemoglobin 15.2 g/dL (14.0-18.0); Mean Corpuscular HGB Conc 34.4 g/dL (29.9-35.2); Mean Corpuscular Hemoglobin 30.5 pg (25.9-34.0); Mean Corpuscular Volume 88.8 fL (80.0-94.0); Mean Platelet Volume 9.8 fL (9.5-13.5); Platelet Count 300 10^3/uL (150-450); Red Blood Count 4.98 10^6/uL (4.70-6.10)
[2024-09-09 06:52] LABS: Alanine Aminotransferase 30 U/L (16-63); Albumin Level 3.9 g/dL (3.4-5.0); Alkaline Phosphatase 74 U/L (46-116); Anion Gap 18.7; Aspartate Amino Transferase 22 U/L (15-37); BUN Creatinine Ratio 16.7; Bilirubin Total 0.3 mg/dL (0.2-1.0); Calcium 9.1 mg/dL (8.5-10.1); Carbon Dioxide 22.9 mmol/L (21.0-32.0); Chloride 104 mmol/L (98-107); Estimated GFR (African America >60 (>=60 mL/min/1.73m^2); Estimated GFR (Non-African Ame >60 (>=60 mL/min/1.73m^2); Globulin 3.9 g/dL; Glucose 208 mg/dL (74-106); Potassium 4.6 mmol/L (3.5-5.1); Sodium 141 mmol/L (136-145); Total Protein 7.8 g/dL (6.4-8.2)
[2024-09-09 06:53] LABS: PCO2 VBG 38.1 mmHg (40.0-52.0)
[2024-09-09] MEDS: IPRATROPIUM/ALBUTEROL SULFATE 3 ML AMPUL.NEB IH ×5 (06:54→23:16)
[2024-09-09 06:55] LABS: Internal Control Within Normal Limits; Respiratory Syncytial Virus Not Detected (NOT DETECTE)
[2024-09-09] MEDS: MAGNESIUM SULFATE IN WATER 2 GM/50 ML PREMIX IV (11:23)
[2024-09-09] MEDS: ALPRAZOLAM 0.5 MG TABLET PO ×2 (11:23→19:39)
[2024-09-09] MEDS: ACETAMINOPHEN 500 MG TABLET 1000 MG PO ×2 (12:35→19:39)
--- NOTE | 2024-09-09 12:42 | PM.HP ---
HPI H&P: HPI History of Present Illness Chief complaint: asthma acute exacerbation Narrative: 34-year-old male with history of asthma presented to ER with 4 to 5-day history of worsening shortness of breath, dry cough and inability to breathe. He is already on albuterol as needed for asthma and for past 1 month or so he has had what sounds like mild asthma exacerbation every few days that required him to use albuterol multiple times in a day. He was previously on Symbicort but has not been on it for a few months. Patient reports nasal congestion but denies fever, sore throat. He feels overall weak and exhausted. Ever since arrival, he is tachypneic with labored breathing and visibly short of breath at rest, unable to converse and using accessory muscles of respiration. He received IV Solu-Medrol and DuoNebs overnight with no improvement. He was initially admitted as observation but I changed him to inpatient after he continues to have significant increasingly increased work of breathing with evidence of respiratory distress and labored breathing despite initial. Of observation and treatment with IV Solu-Medrol and inhaled DuoNebs. There is no evidence of pneumonia on chest x-ray. He tested negative for influenza, COVID and RSV. Opioid HPI Opioid Management Most Recent Pain and Opioid Data: Last Pain Scale 8 09/09/24 12:35 09/09/24 Last Pain Assessment 09/09/24 12:00 Last MAR Pain Assessment 09/09/24 12:35 Last ORT Total Score 2 09/09/24 02:23 09/09/24 Last ORT Risk Category Low Risk 09/09/24 02:23 09/09/24 Review of Systems ROS Status of ROS 10 or more systems reviewed and unremarkable except as noted in history and below [facility] Medical History (Updated 09/09/24 @ 12:47 by Shaikh Lee MD) Asthma ?J45.909 - Unspecified asthma, uncomplicated (ICD-10) Depression ?F32.A - Depression, unspecified (ICD-10) Social History (Updated 09/09/24 @ 03:27 by Veronica Rodriguez RN) Within the past year, how often did you have a drink containing alcohol: 2-4 times a month Within the past year, how many standard drinks containing alcohol did you have on a typical day: 1 or 2 Within the past year, how often did you have six or more drinks on one occasion: less than monthly Total score: 1 Score interpretation: A score less than 4 is consistent with normal alcohol consumption. Smoking status: Heavy tobacco smoker Do you use any of these nicotine containing products: vaping products Second hand tobacco smoke exposure: Yes Non-prescribed substance use: denies use Highest level of school completed/degree received: high school graduate Do you want help with school or training: No Are you now , , , , never or living with a partner: In a typical week, how many times do you talk on the telephone with family, friends, or neighbors: 3 or more times per week Little interest or pleasure in doing things: not at all Feeling down, depressed, or hopeless: not at all Meds Home Medications and Allergies Home Medications ?Medication ?Instructions ?Recorded ?Confirmed ?Type albuterol sulfate 2.5 mg/3 mL mg 05/14/23 History (0.083 %) solution for nebulization ibuprofen 800 mg tablet mg 05/14/23 History ketorolac 10 mg tablet 10 mg PO TID PRN pain #10 tabs 08/30/23 Rx methocarbamol 750 mg tablet 750 mg PO TID PRN pain #20 tabs 08/30/23 Rx cephalexin 500 mg capsule 500 mg PO QID 10 days #40 caps 10/02/23 Rx albuterol sulfate 2.5 mg/3 mL 2.5 mg (3 mL) inhalation QID PRN 07/23/24 Rx (0.083 %) solution for nebulization shortness of breath or wheezing #75 mL albuterol sulfate 90 mcg/actuation 2 inh inhalation Q6H PRN shortness 07/23/24 Rx aerosol inhaler of breath or wheezing #8.5 grams cephalexin 500 mg capsule 500 mg PO TID 7 days #21 caps 07/28/24 Rx Allergies Allergy/AdvReac Type Severity Reaction Status Date / Time No Known Drug Allergies Allergy Verified 09/08/24 22:54 Exam Constitutional Vital Signs, click to edit/add: Last Vital Signs Temp 98.2 F 09/09/24 12:00 Pulse 120 H 09/09/24 12:00 Resp 22 H 09/09/24 12:00 BP 132/74 09/09/24 12:00 Pulse Ox 92 L 09/09/24 12:00 O2 Del Method Room Air 09/09/24 12:00 O2 Flow Rate 3 09/09/24 09:52 Documenting provider has reviewed patient's vital signs: yes Common normals: oriented x3 General appearance: cooperative and in distress respiratory HENMT Common normals: normocephalic and head/scalp atraumatic Head and scalp: normocephalic and atraumatic Eye Common normals: conjunctivae normal and no scleral icterus Conjunctiva: conjunctiva(e) normal Respiratory Effort & inspection: tachypneic, respiratory distress, labored, uses accessory muscles (using neck muscles) and audible wheezes Auscultation: clear to auscultation bilaterally and wheezes expiratory wheezes, inspiratory wheezes and throughout Cardio Common normals: regular rate, S1 normal heart sound and S2 normal heart sound Rate: regular rate Heart sounds: S1 normal and S2 normal GI Common normals: Normal to inspection, nondistended, normoactive bowel sounds present, soft to palpation, non-tender and no hepatosplenomegaly Palpation: soft and no hepatosplenomegaly Extremity Common normals: no clubbing, cyanosis or edema Neuro Common normals: oriented x3, moves all extremities and no focal motor deficits Psych Common normals: mental status grossly normal, denies hallucinations, denies homicidal ideation and denies suicidal ideation Results Labs Labs: Short CBC 09/08/24 09/09/24 Range/Units 23:50 06:24 WBC 10.9 9.0 (4.0-11.0) 10^3/uL Hgb 15.9 15.2 (14.0-18.0) g/dL Hct 45.7 44.2 (42.0-54.0) % Plt Count 390 300 (150-450) 10^3/uL BMP 09/08/24 09/09/24 23:50 06:24 Sodium 143 141 Potassium 3.9 4.6 Chloride 105 104 Carbon Dioxide 25.3 22.9 BUN 15.0 19.0 H Creatinine 1.10 1.14 Glucose 106 208 H Calcium 9.1 9.1 Liver Function 09/09/24 Range/Units 06:24 Total Bilirubin 0.3 (0.2-1.0) mg/dL AST 22 (15-37) U/L ALT 30 (16-63) U/L Alkaline Phosphatase 74 (46-116) U/L Albumin 3.9 (3.4-5.0) g/dL ABG ABG results: 09/09/24 06:24 VBG pH 7.380 VBG pCO2 38.1 L Assessment and Plan Assessment and Plan (1) Severe asthma with exacerbation: Qualifiers: Asthma persistence: persistent Qualified Code(s): J45.51 - Severe persistent asthma with (acute) exacerbation (2) Respiratory distress determined by examination: (3) SOB (shortness of breath): (4) Depression: Qualifiers: Depression Type: major depressive disorder Major depression recurrence: recurrent Active/Remission status: in full remission Qualified Code(s): F33.42 - Major depressive disorder, recurrent, in full remission Plan Severe asthma exacerbation with evidence of respiratory distress, labored breathing. While patient is not hypoxic, he is tachypneic and using accessory muscles of respiration. He did not receive magnesium in ER and I will order one-time dose of IV magnesium. Continue with IV Solu-Medrol. Continue with DuoNebs every 4 hours. If no improvement-will consider noninvasive ventilation to help with work of breathing. Patient will need close monitoring of his respiratory status, hemodynamic monitoring and will require inpatient treatment with IV Solu-Medrol and DuoNebs. He is at high risk of respiratory compromise/failure if he continues to have current increased work of breathing and does not improve with current treatment
[2024-09-09] MEDS: 0.9 % SODIUM CHLORIDE 1,000 ML 1000 ML IV (15:31)
[2024-09-09] MEDS: 0.9 % SODIUM CHLORIDE 1,000 ML 125 ML IV (16:29)
[2024-09-10] VITALS (37 sets, daily range): BP systolic 126–140; BP diastolic 74–76; PULSE 88–127; TEMP 36.4–37.4; O2SAT 93–108
[2024-09-10] MEDS: 0.9 % SODIUM CHLORIDE 1,000 ML 125 ML IV (03:15)
[2024-09-10] MEDS: IPRATROPIUM/ALBUTEROL SULFATE 3 ML AMPUL.NEB IH ×6 (03:47→23:33)
[2024-09-10] MEDS: METHYLPREDNISOLONE SOD SUCC PF 40 MG/ML VIAL IVP ×3 (05:37→22:22)
--- NOTE | 2024-09-10 07:46 | RESP.RT ---
patient placed on vapotherm at 40 LPM and 21% to help work of breathing
--- NOTE | 2024-09-10 09:53 | CT_ITS ---
[address] [address] Patient Name: WILLOW WILKES MRN: [id number] date: 1990 Sex: M Assigned Patient Location: ICU Current Patient Location: ICU Accession/Order Number: [id number] Exam Date: 09/10/2024 10:49 Report Date: 09/10/2024 11:39 At the request of: SHAIKH RICH Procedure: CT chest wo con EXAMINATION: CT chest wo con HISTORY: pna ; shortness of breath COMPARISON: XR chest 09/08/2024 TECHNIQUE: Axial, Coronal, and Sagittal images were created without the administration of IV contrast material. Dose reduction techniques were achieved by using automated exposure control and/or adjustment of mA and/or kV according to patient size and/or use of iterative reconstruction technique. FINDINGS: LUNGS: Mild haziness and stranding within posterior lateral left upper lobe. Mucous plugging of a bronchi extending into this area. Lungs are otherwise clear. PLEURA: No mass, effusion, or pneumothorax. VASCULATURE: No abnormality. SUSAN: No mass or pathologic adenopathy. MEDIASTINUM: No mass or pathologic adenopathy. CARDIAC: No enlargement, pericardial thickening, or pericardial effusion. Coronary Artery calcifications: AORTA: No aneurysm or dissection. CHEST WALL: No mass or axillary adenopathy BONES: No bone lesion or fracture. LIMITED ABDOMEN: No suspicious findings. Limited images of the upper abdomen. OTHER: Negative. CT/CT chest wo con IMPRESSION: 1. Mucous plugging of a single left upper lobe superior segment bronchus with mild peripheral atelectasis or infiltrates. The lungs are otherwise clear. Electronically authenticated by: JUSTIN GENTILE Date: 09/10/2024 11:39
[2024-09-10 10:14] LABS: ABG PCO2 38.1 mmHg (35.0-45.0); pH ABG 7.406 (7.350-7.450)
[2024-09-10 10:15] LABS: Allen Test POSITIVE (POSITIVE); Base Excess ABG -0.8 mmol/L (-2.0-2.0); Fractionated Inspired Oxygen 21 %; HCO3 ABG 23.9 mmol/L (22.0-26.0); Liters per Minute 40; O2 Mode VAPOTHERM; PO2 ABG 92.4 mmHg (80.0-100.0)
[2024-09-10 10:16] LABS: Puncture Site L RADIAL
--- NOTE | 2024-09-10 10:47 | PM.IMPN1 ---
Progress Note: A&P Assessment and Plan (1) Severe asthma with exacerbation: Qualifiers: Asthma persistence: persistent Qualified Code(s): J45.51 - Severe persistent asthma with (acute) exacerbation (2) Respiratory distress determined by examination: (3) SOB (shortness of breath): (4) Depression: Qualifiers: Depression Type: major depressive disorder Major depression recurrence: recurrent Active/Remission status: in full remission Qualified Code(s): F33.42 - Major depressive disorder, recurrent, in full remission Plan Clinically better and his breathing patter has improved but he is still quite dyspneic at rest. He looks exhausted and tired. It seems like he had fever and chills at night but none were documented. Patient on high flow O2 for increased work of breathing and feels a little better on it. CXR upon admission did not reveal any consolidation but given his severity of illness, I suspect he may have underlying Pneumonia. CT chest ordered for better visualization to r/o underlying structural or consolidative process. ABG ordered. C/w systemic steroids, duonebs. Internal Medicine - PN: Subj Subjective Interval history: Seen and examined. Pt reports that overnight he was drenched in sweat and was feeling extremely cold. He looks tired/exhausted and is tachypneic, speaking in short sentences. Exam Constitutional Vital Signs, click to edit/add: Last Vital Signs Temp 98.0 F 09/10/24 08:00 Pulse 110 H 09/10/24 10:00 Resp 15 09/10/24 09:10 BP 143/72 H 09/09/24 23:57 Pulse Ox 96 09/10/24 10:00 O2 Del Method Vapotherm 09/10/24 08:00 O2 Flow Rate 40 09/10/24 08:00 FiO2 0 09/10/24 08:00 Documenting provider has reviewed patient's vital signs: yes Common normals: oriented x3 General appearance: cooperative and in distress respiratory Respiratory Common normals: normal respiratory effort Effort & inspection: tachypneic Auscultation: diminished lung sounds Other: Dyspneic at rest, rapid shallow breathing. Not using accessory muscles anymore. Cardio Common normals: S1 normal heart sound and S2 normal heart sound Rate: tachycardic Heart sounds: S1 normal and S2 normal Extremity Common normals: no clubbing, cyanosis or edema Neuro Common normals: oriented x3, moves all extremities and no focal motor deficits Psych Common normals: mental status grossly normal, denies hallucinations, denies homicidal ideation and denies suicidal ideation Internal Medicine - PN: Obj Da Labs Labs: Laboratory Results - last 24 hr 09/10/24 10:04 Puncture Site L radial ABG pH 7.406 ABG pCO2 38.1 ABG pO2 92.4 ABG HCO3 23.9 ABG O2 Saturation 98.0 ABG Base Excess -0.8 Narinder Test Positive O2 Liters/Min 40 FiO2 21
[2024-09-10] MEDS: LEVOFLOXACIN IN DEXTROSE 5 % 750 MG/150 ML PREMIX 100 MG IV (14:02)
[2024-09-10] MEDS: 0.9 % SODIUM CHLORIDE 1,000 ML 75 ML IV (14:02)
[2024-09-10] MEDS: GUAIFENESIN 600 MG TAB.ER.12H PO ×2 (14:03→22:22)
[2024-09-10] MEDS: IBUPROFEN 600 MG TABLET PO ×2 (15:45→22:27)
[2024-09-10] MEDS: SODIUM CHLORIDE 3% INHALATION 15 ML NEB 6 ML IH ×2 (15:58→23:33)
[2024-09-10] MEDS: ALPRAZOLAM 0.5 MG TABLET PO (19:38)
[2024-09-10] MEDS: ACETAMINOPHEN 500 MG TABLET 1000 MG PO (19:38)
[2024-09-10] MEDS: BENZONATATE 100 MG CAPSULE PO (19:38)
[2024-09-11] VITALS (73 sets, daily range): BP systolic 132–159; BP diastolic 72–98; PULSE 93–133; TEMP 36.3–36.8; O2SAT 93–100; BMI 33.8
[2024-09-11] MEDS: TRAZODONE HCL 50 MG TABLET 25 MG PO ×2 (00:17→21:35)
[2024-09-11] MEDS: BISACODYL 5 MG TABLET 10 MG PO ×2 (00:17→21:35)
[2024-09-11] MEDS: IPRATROPIUM/ALBUTEROL SULFATE 3 ML AMPUL.NEB IH ×6 (03:51→23:21)
[2024-09-11 05:15] LABS: Basophils Percent Auto 0.2 % (0.2-2.0); Hematocrit 39.4 % (42.0-54.0); Hemoglobin 13.2 g/dL (14.0-18.0); Immature Granulocytes Abs Auto 0.23 10^3/uL (0.00-0.03); Immature Granulocytes Pct Auto 1.8 % (0.0-0.5); Lymphocytes Absolute Auto 1.1 10^3/uL (1.2-3.8); Lymphocytes Percent Auto 8.4 % (20.5-60.0); Mean Corpuscular HGB Conc 33.5 g/dL (29.9-35.2); Mean Corpuscular Hemoglobin 30.9 pg (25.9-34.0); Mean Corpuscular Volume 92.3 fL (80.0-94.0); Mean Platelet Volume 9.8 fL (9.5-13.5); Monocytes Absolute Auto 0.6 10^3/uL (0.3-0.8); Monocytes Percent Auto 4.7 % (1.7-12.0); Neutrophils Absolute Auto 11.1 10^3/uL (1.4-6.5); Neutrophils Percent Auto 84.9 % (43.0-75.0); Platelet Count 268 10^3/uL (150-450); Red Blood Count 4.27 10^6/uL (4.70-6.10); Red Cell Distribution Width 12.3 % (11.0-15.0); White Blood Count 13.1 10^3/uL (4.0-11.0)
[2024-09-11 05:58] LABS: Alanine Aminotransferase 31 U/L (16-63); Albumin Level 3.2 g/dL (3.4-5.0); Alkaline Phosphatase 56 U/L (46-116); Anion Gap 13.7; Aspartate Amino Transferase 8 U/L (15-37); BUN Creatinine Ratio 21.5; Bilirubin Total 0.3 mg/dL (0.2-1.0); Calcium 8.5 mg/dL (8.5-10.1); Carbon Dioxide 25.7 mmol/L (21.0-32.0); Chloride 106 mmol/L (98-107); Estimated GFR (African America >60 (>=60 mL/min/1.73m^2); Estimated GFR (Non-African Ame >60 (>=60 mL/min/1.73m^2); Globulin 3.3 g/dL; Glucose 135 mg/dL (74-106); Potassium 4.4 mmol/L (3.5-5.1); Sodium 141 mmol/L (136-145); Total Protein 6.5 g/dL (6.4-8.2)
[2024-09-11] MEDS: METHYLPREDNISOLONE SOD SUCC PF 40 MG/ML VIAL IVP ×3 (06:05→21:37)
[2024-09-11] MEDS: 0.9 % SODIUM CHLORIDE 1,000 ML 75 ML IV (06:06)
--- NOTE | 2024-09-11 07:26 | PM.PLCN ---
History of Present Illness History of Present Illness Consult date: 09/11/24 Requesting physician: Shaikh Lee Reason for consult: asthma and abnormal CXR/CT (mucus plugging) Chief complaint: asthma acute exacerbation Narrative: 34yo male presents to [facility] ER on 09/09/2024 with difficulty breathing. The patient has a long-term history of asthma, but has not been on a maintenance inhaler for at least a year (Symbicort) which she states is due to changing primary care physicians. Over the past several days to weeks, he has noticed increased work of breathing, shortness of breath, and chest pressure specifically anteriorly to the left. He had albuterol and was using it every 3 hours without relief. He does not recall any specific sick contacts, but he states he does have 5 children, which he notes he could have contracted anything from one of them. Upon arrival to the ER, he was evaluated and then admitted for an acute exacerbation of asthma. Vitals noted in the late evening of 09/09/2024: Temp 101.2?F, HR 113, RR 22. CXR was unremarkable, there was no leukocytosis, and viral testing was negative for influenza and COVID-19. The patient did not seem to be improving yesterday, so a chest CT was ordered. Findings noted Mucous plugging of a single left upper lobe superior segment bronchus with mild peripheral atelectasis or infiltrates. I personally reviewed the imaging. I am not greatly impressed by the mucous plugging. I do note mild emphysematous changes present. The patient admits to having an admission to [facility] last year, and saw Dr. Ponce. He apparently had a spot on his lung and had a biopsy performed at [facility], with pathology returning benign. He cannot give me any more specific information. He notes that he never did follow-up with Dr. Ponce outpatient. The patient is a former smoker, quitting several years ago. However, he continues to vape regularly. 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 Review of Systems ROS Status of ROS 10 or more systems reviewed and unremarkable except as noted in history and below Constitutional Reports: fever (None for a day and a half) and other (Sweats) Respiratory Reports: shortness of breath, cough, wheezing and pain on inspiration; Denies: coughing up blood Gastrointestinal Denies: nausea PFSH PFSH Medical History (Updated 09/11/24 @ 07:48 by Gera Barker DO) Severe persistent asthma, uncomplicated ?J45.50 - Severe persistent asthma, uncomplicated (ICD-10) Depression ?F32.A - Depression, unspecified (ICD-10) Social History (Updated 09/09/24 @ 03:27 by Veronica Rodriguez RN) Within the past year, how often did you have a drink containing alcohol: 2-4 times a month Within the past year, how many standard drinks containing alcohol did you have on a typical day: 1 or 2 Within the past year, how often did you have six or more drinks on one occasion: less than monthly Total score: 1 Score interpretation: A score less than 4 is consistent with normal alcohol consumption. Smoking status: Heavy tobacco smoker Do you use any of these nicotine containing products: vaping products Second hand tobacco smoke exposure: Yes Non-prescribed substance use: denies use Highest level of school completed/degree received: high school graduate Do you want help with school or training: No Are you now , , , , never or living with a partner: In a typical week, how many times do you talk on the telephone with family, friends, or neighbors: 3 or more times per week Little interest or pleasure in doing things: not at all Feeling down, depressed, or hopeless: not at all Meds Home Medications and Allergies Home Medications ?Medication ?Instructions ?Recorded ?Confirmed ?Type albuterol sulfate 2.5 mg/3 mL mg 05/14/23 History (0.083 %) solution for nebulization ibuprofen 800 mg tablet mg 05/14/23 History ketorolac 10 mg tablet 10 mg PO TID PRN pain #10 tabs 08/30/23 Rx methocarbamol 750 mg tablet 750 mg PO TID PRN pain #20 tabs 08/30/23 Rx cephalexin 500 mg capsule 500 mg PO QID 10 days #40 caps 10/02/23 Rx albuterol sulfate 2.5 mg/3 mL 2.5 mg (3 mL) inhalation QID PRN 07/23/24 Rx (0.083 %) solution for nebulization shortness of breath or wheezing #75 mL albuterol sulfate 90 mcg/actuation 2 inh inhalation Q6H PRN shortness 07/23/24 Rx aerosol inhaler of breath or wheezing #8.5 grams cephalexin 500 mg capsule 500 mg PO TID 7 days #21 caps 07/28/24 Rx Allergies Allergy/AdvReac Type Severity Reaction Status Date / Time No Known Drug Allergies Allergy Verified 09/08/24 22:54 Exam Constitutional Vital Signs, click to edit/add: Last Vital Signs Temp 98.2 F 09/11/24 04:00 Pulse 96 H 09/11/24 06:58 Resp 20 09/11/24 06:58 BP 134/72 09/11/24 04:00 Pulse Ox 99 09/11/24 06:58 O2 Del Method Room Air 09/11/24 06:58 O2 Flow Rate 40 09/10/24 12:00 FiO2 21 09/10/24 12:00 Documenting provider has reviewed patient's vital signs: yes Orientation/consciousness: Yes awake HENMT Other: Mallampati I. No tonsillar hypertrophy. No oral candidiasis. Chest Common normals: inspection of chest normal Respiratory Other: Patient appears to have mild shortness of breath. He has approximately 5 word conversational dyspnea. Breath sounds are diminished, with moderate expiratory wheezes and prolonged expiratory phase?he sounds tight . No rhonchi or crackles appreciated. Cardio Other: Mildly tachycardic with a regular rhythm. GI Inspection: normal to inspection Back & Pelvis Common normals: thoracic and lumbar spine normal to inspection Extremity Common normals: normal to inspection and no clubbing, cyanosis or edema Neuro Common normals: oriented x3 Sensorium/orientation: awake and alert Motor exam: no tremor noted and no fasciculations Psych Appearance: grossly normal Attitude: calm Activity/motor behavior: appropriate eye contact Speech: normal speech Results Laboratory Findings ABG, PT/INR, D-dimer: ABG ABG pH 7.406 (7.350-7.450) 09/10/24 10:04 ABG pCO2 38.1 mmHg (35.0-45.0) 09/10/24 10:04 ABG pO2 92.4 mmHg (80.0-100.0) 09/10/24 10:04 ABG O2 Saturation 98.0 % 09/10/24 10:04 Abnormal lab findings: Abnormal Labs 09/08/24 09/09/24 09/11/24 23:50 06:24 05:05 WBC 13.1 H RBC 4.27 L Hgb 13.2 L Hct 39.4 L Neut % (Auto) 84.9 H Lymph % (Auto) 8.4 L Eos % (Auto) 0.0 L Neut # (Auto) 11.1 H Lymph # (Auto) 1.1 L Elliott # (Auto) 0.9 H Abs Immat Gran (auto) 0.10 H 0.23 H Imm/Tot Granulo (auto) 0.9 H 1.8 H VBG pCO2 38.1 L BUN 19.0 H Glucose 208 H 135 H AST 8 L Albumin 3.[address] scan - chest: report reviewed and image reviewed Assessment and Plan Assessment and Plan (1) Severe persistent asthma with acute exacerbation: Assessment and Plan: Patient's presentation is most consistent with acute exacerbation of severe persistent asthma secondary to acute viral illness. Other consideration is aspiration pneumonitis/pneumonia with possible underlying alcohol abuse. Patient is already on appropriate treatment with both inhaled and systemic steroids along with dual bronchodilators (albuterol + ipratropium). Patient received a bolus of magnesium yesterday. Recommendations for now are to continue current therapy. Do not feel he requires theophylline/aminophylline as he already has tachycardia. Once discharged, he will need close follow-up to prevent future exacerbations. He will need to have triple inhaled therapy prescribed, such as Symbicort + Spiriva. Counseled on vaping cessation. (2) Viral pneumonia, unspecified: Assessment and Plan: Presumptive diagnosis, non-COVID/influenza viral. At this point, I do not feel ordering a viral panel will contribute much to the diagnosis or management of this patient as a treatment would simply be supportive care. (3) Sepsis: Assessment and Plan: 09/09/2024: Temp 101.2?F, HR 113, RR 22. Source: Pulmonary. No identified agent as of this time. No hypoxia documented - Lowest SpO2 90% on RA. Qualifiers: Sepsis type: sepsis due to unspecified organism Sepsis acute organ dysfunction status: unspecified Qualified Code(s): A41.9 - Sepsis, unspecified organism (4) Mucus plugging of bronchi: Assessment and Plan: Very minimal mucous plugging of the left upper lobe bronchus. It is not severe enough to warrant a bronchoscopy. Simple measures such as a pulm toilet should be sufficient. Continue with guaifenesin. Add PEP device. (5) Centrilobular emphysema: Assessment and Plan: Mild emphysematous changes are seen by me on chest CT. This is a young age did be developing these findings. This increases the concern for underlying alpha-1 antitrypsin deficiency. Ordering alpha-1 phenotype and level. Patient was counseled on vaping cessation and to remain off cigarettes. (6) Peripheral eosinophilia: Assessment and Plan: Eosinophils 09/08/2024: 4.8% / 500. If patient's asthma cannot be controlled with triple inhaled therapy, he may eventually be a biologic candidate (e.g. Fasenra, Dupixent). (7) Vaping nicotine dependence, tobacco product: Assessment and Plan: Patient was counseled on smoking cessation of any substance. (8) Obesity (BMI 30.0-34.9): Assessment and Plan: Weight loss strongly recommended.
[2024-09-11] MEDS: GUAIFENESIN 600 MG TAB.ER.12H PO ×2 (08:43→21:35)
--- NOTE | 2024-09-11 10:48 | CM.NOTE ---
Rounds made with Dr. Howard, no discharge today. Pt can transfer to Med Surg floor.
[2024-09-11] MEDS: SODIUM CHLORIDE 3% INHALATION 15 ML NEB 6 ML IH ×3 (10:53→19:41)
--- NOTE | 2024-09-11 11:43 | P.IMPN_ITS ---
Progress Note: A&P Assessment and Plan (1) Severe persistent asthma with acute exacerbation: Assessment and Plan: Clinically better but still wheezing, and SOB on exertion C/w steroids, duonebs. (2) Mucus plugging of bronchi: Assessment and Plan: Noted on CT chest. Pulm consulted. No need for bronchoscopy. C/w pulm toilet. (3) Right upper lobe pneumonia: Assessment and Plan: Possible infiltrate on CT chest. But could very likely be atelectasis due to mucus plugging. Empirically started on IV levaquin Qualifiers: Pneumonia type: due to unspecified organism Qualified Code(s): J18.9 - Pneumonia, unspecified organism (4) Leukocytosis: Assessment and Plan: likely due to steroids. Monitor. On Levaquin for presumed Pneumonia. Qualifiers: Leukocytosis type: unspecified Qualified Code(s): D72.829 - Elevated white blood cell count, unspecified Internal Medicine - PN: Subj Subjective Interval history: Seen and examined. Doing better. No overnight events. Still feels that his breathing is tight. He is not SOB at rest now. But still gets SOB on exertion Exam Constitutional Vital Signs, click to edit/add: Last Vital Signs Temp 97.4 F L 09/11/24 07:56 Pulse 112 H 09/11/24 10:57 Resp 20 09/11/24 10:57 BP 145/98 H 09/11/24 07:45 Pulse Ox 99 09/11/24 10:57 O2 Del Method Room Air 09/11/24 10:57 O2 Flow Rate 40 09/10/24 12:00 FiO2 21 09/10/24 12:00 Documenting provider has reviewed patient's vital signs: yes Common normals: oriented x3 General appearance: cooperative Respiratory Common normals: normal respiratory effort and no use of accessory muscles Effort & inspection: able to speak in complete sentences Auscultation: wheezes expiratory wheezes and throughout Cardio Common normals: S1 normal heart sound and S2 normal heart sound Rate: tachycardic Heart sounds: S1 normal and S2 normal Extremity Common normals: no clubbing, cyanosis or edema Neuro Common normals: oriented x3, moves all extremities and no focal motor deficits Psych Common normals: mental status grossly normal, denies hallucinations, denies homicidal ideation and denies suicidal ideation Internal Medicine - PN: Obj Da Labs Labs: Laboratory Results - last 24 hr 09/11/24 05:05 WBC 13.1 H RBC 4.27 L Hgb 13.2 L Hct 39.4 L MCV 92.3 MCH 30.9 MCHC 33.5 RDW 12.3 Plt Count 268 MPV 9.8 Neut % (Auto) 84.9 H Lymph % (Auto) 8.4 L Platte % (Auto) 4.7 Eos % (Auto) 0.0 L Baso % (Auto) 0.2 Neut # (Auto) 11.1 H Lymph # (Auto) 1.1 L Platte # (Auto) 0.6 Eos # (Auto) 0.0 Baso # (Auto) 0.0 Abs Immat Gran (auto) 0.23 H Imm/Tot Granulo (auto) 1.8 H Sodium 141 Potassium 4.4 Chloride 106 Carbon Dioxide 25.7 Anion Gap 13.7 BUN 17.0 Creatinine 0.79 Est GFR ( Amer) >60 Est GFR (Non-Af Amer) >60 BUN/Creatinine Ratio 21.5 Glucose 135 H Calcium 8.5 Total Bilirubin 0.3 AST 8 L ALT 31 Alkaline Phosphatase 56 Total Protein 6.5 Albumin 3.2 L Globulin 3.3 Albumin/Globulin Ratio 1.0
[2024-09-11] MEDS: LEVOFLOXACIN IN DEXTROSE 5 % 750 MG/150 ML PREMIX 100 MG IV (14:18)
--- NOTE | 2024-09-11 18:55 | PC.NURSE ---
report called to ward on [facility]. taken to room via wheelchair, by joe schulte rn
[2024-09-11] MEDS: ALPRAZOLAM 0.5 MG TABLET PO (21:35)
[2024-09-12] MEDS: IPRATROPIUM/ALBUTEROL SULFATE 3 ML AMPUL.NEB IH ×3 (03:57→10:58)
[2024-09-12 03:59] VITALS: PULSE 98; O2SAT 94
[2024-09-12 04:32] VITALS: BP 152/84; PULSE 95; TEMP 36.4; O2SAT 96
[2024-09-12] MEDS: METHYLPREDNISOLONE SOD SUCC PF 40 MG/ML VIAL IVP ×2 (05:18→13:06)
[2024-09-12 06:56] LABS: Basophils Percent Auto 0.2 % (0.2-2.0); Hematocrit 42.9 % (42.0-54.0); Hemoglobin 14.3 g/dL (14.0-18.0); Immature Granulocytes Abs Auto 0.38 10^3/uL (0.00-0.03); Lymphocytes Absolute Auto 1.6 10^3/uL (1.2-3.8); Lymphocytes Percent Auto 12.5 % (20.5-60.0); Mean Corpuscular HGB Conc 33.3 g/dL (29.9-35.2); Mean Corpuscular Hemoglobin 30.8 pg (25.9-34.0); Mean Corpuscular Volume 92.3 fL (80.0-94.0); Mean Platelet Volume 9.9 fL (9.5-13.5); Monocytes Absolute Auto 0.9 10^3/uL (0.3-0.8); Neutrophils Absolute Auto 9.9 10^3/uL (1.4-6.5); Neutrophils Percent Auto 77.3 % (43.0-75.0); Platelet Count 312 10^3/uL (150-450); Red Blood Count 4.65 10^6/uL (4.70-6.10); Red Cell Distribution Width 12.3 % (11.0-15.0); White Blood Count 12.8 10^3/uL (4.0-11.0)
[2024-09-12 07:11] VITALS: PULSE 102; O2SAT 95
[2024-09-12 07:20] LABS: Alanine Aminotransferase 76 U/L (16-63); Albumin Level 3.3 g/dL (3.4-5.0); Alkaline Phosphatase 58 U/L (46-116); Anion Gap 13.8; Aspartate Amino Transferase 21 U/L (15-37); BUN Creatinine Ratio 19.3; Bilirubin Total 0.3 mg/dL (0.2-1.0); Calcium 8.7 mg/dL (8.5-10.1); Carbon Dioxide 25.3 mmol/L (21.0-32.0); Chloride 105 mmol/L (98-107); Estimated GFR (African America >60 (>=60 mL/min/1.73m^2); Estimated GFR (Non-African Ame >60 (>=60 mL/min/1.73m^2); Globulin 3.4 g/dL; Glucose 130 mg/dL (74-106); Potassium 4.1 mmol/L (3.5-5.1); Sodium 140 mmol/L (136-145); Total Protein 6.7 g/dL (6.4-8.2)
--- NOTE | 2024-09-12 07:41 | P.PLPN_ITS ---
Progress Note: A&P Assessment and Plan (1) Severe persistent asthma with acute exacerbation: Assessment and Plan: Patient remains symptomatic, but there is to be slowly improving. Not much else to add at this point, recommend continuing steroids and bronchodilators. He needs close follow-up outpatient. He needs to restart maintenance inhalers. He is a candidate for biologic therapy. He previously was seeing Dr. Ponce at [facility], but was lost to follow-up. He was in the ER there 06/22/2024 for an asthma exacerbation. Appointment has been scheduled for him for next week with me. (2) Viral pneumonia, unspecified: Assessment and Plan: No identified agent. Supportive care. (3) Sepsis: Assessment and Plan: Clinically improving. Remains afebrile. Continues to have tachycardia which would be most consistent from beta-2 agonist therapy. Qualifiers: Sepsis type: sepsis due to unspecified organism Sepsis acute organ dysfunction status: unspecified Qualified Code(s): A41.9 - Sepsis, unspecified organism (4) Mucus plugging of bronchi: Assessment and Plan: Left upper lobe mucous plugging noted on chest CT. I was able to look back at past chart. He originally had a left upper lobe lung mass up to 6.3 cm based on chest CT 03/17/2022. Had a CT-guided biopsy which was nondiagnostic. He then had a bronchoscopy by Dr. Ponce 05/25/2023 which was likewise nondiagnostic. Outpatient notes from Dr. Ponce had images of the left upper lobe mass from 03/15/2022, 04/09/2023, and 05/04/2023 which showed a progressive shrinking of the m ass. This is in the exact same location as the presumptive mucous plugging on the most recent chest CT here at [facility]. At this point, I believe this is more scar tissue than mucous plugging. Dr. Ponce's note from her bronchoscopy note identified a stump in this area, which likely represents scar tissue causing the appearance of a mucous plug. I would still continue with the pulmonary toilet as there are no negative drawbacks. (5) Centrilobular emphysema: Assessment and Plan: Apparently alpha 1 antitrypsin was tested outpatient by Dr. Ponce, but I do not see any records that it was completed. Awaiting repeat testing. (6) Peripheral eosinophilia: Assessment and Plan: Patient has a history of eosinophilia based on old records from [facility]: Eosinophils -09/08/2024: 4.8% / 500 - [facility] -08/02/2024: 10.9% / 800 - [facility] -06/22/2024: 12.1% / 1000 - [facility] This is his second exacerbation in the last 3 months. With severe persistent asthma and eosinophilia, he has a biologic candidate. He anti-IL-5 therapy such as Fasenra or Nucala, as well as IL-4/IL-13 therapy with Dupixent. Patient will follow-up outpatient to discuss options. (7) Vaping nicotine dependence, tobacco product: Assessment and Plan: Patient counseled not to vape. Prior history of tobacco abuse. (8) Obesity (BMI 30.0-34.9): Assessment and Plan: Weight loss recommended. Subjective Subjective Interval history: Patient states he is breathing better than on admission, but he still becomes quite winded from just even walking from the bathroom. He voices no new symptoms today. I was able to get records from [facility] which were reviewed at length. I discussed past workup and findings with the patient. Please see further data below in the A/P. Exam Constitutional Vital Signs, click to edit/add: Last Vital Signs Temp 97.5 F L 09/12/24 04:32 Pulse 102 H 09/12/24 07:11 Resp 20 09/12/24 04:32 BP 152/84 H 09/12/24 04:32 Pulse Ox 95 09/12/24 07:11 O2 Del Method Room Air 09/12/24 07:11 O2 Flow Rate 40 09/11/24 20:53 FiO2 21 09/11/24 20:53 Documenting provider has reviewed patient's vital signs: yes Orientation/consciousness: Yes awake HENMT Other: Mallampati I. No tonsillar hypertrophy. No oral candidiasis. Chest Common normals: inspection of chest normal Respiratory Other: Patient is short of breath in bed, having just walked back from the bathroom. After a few minutes, he caught his breath and was then breathing normally. There is slightly more air movement today, with inspiratory and expiratory wheezes. No rhonchi. Cardio Other: Continues to have mild tachycardia with a regular rhythm. GI Inspection: normal to inspection Back & Pelvis Common normals: thoracic and lumbar spine normal to inspection Extremity Common normals: normal to inspection and no clubbing, cyanosis or edema Neuro Common normals: oriented x3 Sensorium/orientation: awake and alert Motor exam: no tremor noted and no fasciculations Psych Appearance: grossly normal Attitude: calm Activity/motor behavior: appropriate eye contact Speech: normal speech
[2024-09-12 07:45] VITALS: BP 139/81; PULSE 103; TEMP 36.4; O2SAT 95
[2024-09-12] MEDS: GUAIFENESIN 600 MG TAB.ER.12H PO (09:04)
[2024-09-12] MEDS: SODIUM CHLORIDE 3% INHALATION 15 ML NEB 6 ML IH (10:58)
--- NOTE | 2024-09-12 11:01 | P.DS_ITS ---
DS: Providers Provider Date of admission: 09/09/24 11:23 Primary care physician: PLACIDO SMITH Consults: 09/10/24 13:37 Consult to Pulmonology Routine Consulting Provider: Gera Barker Reason for consultation: Asthma exacerbation/mucus plugging DS: Diagnosis Discharge Diagnosis (1) Severe persistent asthma with acute exacerbation: (2) Viral pneumonia, unspecified: (3) Sepsis: Qualifiers: Sepsis type: sepsis due to unspecified organism Sepsis acute organ dysfunction status: unspecified Qualified Code(s): A41.9 - Sepsis, unspecified organism (4) Mucus plugging of bronchi: (5) Centrilobular emphysema: (6) Peripheral eosinophilia: (7) Vaping nicotine dependence, tobacco product: (8) Obesity (BMI 30.0-34.9): DS: Summary Hospital Course Hospital Course: 34-year-old male with history of asthma presented to ER with 4 to 5-day history of worsening shortness of breath, dry cough and inability to breathe. He is alr suzanne on albuterol as needed for asthma and for past 1 month or so he has had what sounds like mild asthma exacerbation every few days that required him to use albuterol multiple times in a day. He was previously on Symbicort but has not been on it for a few months. Upon admission, patient had increased work of breathing, was using accessory muscle of respiration. He tested negative for influenza, COVID and RSV. CXR was unremarkable. He was treated with IV solumedrol, duonebs but continued to be considerably dyspneic with labored breathing and tachypnea. He was placed on high flow for increased work of breathing. CT chest w/o contrast was done for improved visualization of patients lung parenchyma that revealed mild mucus plugging of RUL. Patient was started on aggressive pulm toilet. He was also started on empirical antibacterial for presumed PNA at the same spot and received IV levaquin. Patient was evaluated by Pulm who upon review of his old records, believe that there is low suspicion of mucus plug and instead that is scar tissue from previous lung mass at the same location. On day of admission, he is feeling better but still dyspneic on minimal exertion. He has no signs of respiratory distress. Given that, he has been progressively improving, I feel that he is stable enough to be discharged home and finish his treatment course as outpatient. As per recs from Pulm - will start him on trelegy for maintenance treatment for persistent asthma along with prednisone taper, PO levaquin. He has nebulizer at home and I will call in albuterol for his nebulizer. Patient has an appt with Dr Barker next week for hospital follow up. He was also instructed to f/u with PCP in one week Patient was extensively counseled and explained in great detail worrisome signs and symptoms that should prompt him to come to ED. Status at Discharge Functional status at discharge: independent ambulation Overall status at discharge: patient is progressing back to baseline Time Spent with Patient Time attestation: Total time spent providing and/or coordinating discharge services: Time spent: greater than 30 minutes Exam Constitutional Vital Signs, click to edit/add: Last Vital Signs Temp 97.5 F L 09/12/24 07:45 Pulse 103 H 09/12/24 07:45 Resp 18 09/12/24 07:45 BP 139/81 09/12/24 07:45 Pulse Ox 95 09/12/24 07:45 O2 Del Method Room Air 09/12/24 07:45 O2 Flow Rate 40 09/11/24 20:53 FiO2 21 09/11/24 20:53 Documenting provider has reviewed patient's vital signs: yes Common normals: oriented x3 General appearance: cooperative Respiratory Common normals: normal respiratory effort and no use of accessory muscles Effort & inspection: able to speak in complete sentences Auscultation: wheezes expiratory wheezes and throughout Cardio Common normals: S1 normal heart sound and S2 normal heart sound Rate: tachycardic Heart sounds: S1 normal and S2 normal Extremity Common normals: no clubbing, cyanosis or edema Neuro Common normals: oriented x3, moves all extremities and no focal motor deficits Psych Common normals: mental status grossly normal, denies hallucinations, denies homicidal ideation and denies suicidal ideation DS: Data Data Completed and Pending Labs on day of discharge: Labs from last 24 hours 09/12/24 06:02 WBC 12.8 H RBC 4.65 L Hgb 14.3 Hct 42.9 MCV 92.3 MCH 30.8 MCHC 33.3 RDW 12.3 Plt Count 312 MPV 9.9 Neut % (Auto) 77.3 H Lymph % (Auto) 12.5 L Marin % (Auto) 7.0 Eos % (Auto) 0.0 L Baso % (Auto) 0.2 Neut # (Auto) 9.9 H Lymph # (Auto) 1.6 Marin # (Auto) 0.9 H Eos # (Auto) 0.0 Baso # (Auto) 0.0 Abs Immat Gran (auto) 0.38 H Imm/Tot Granulo (auto) 3.0 H Sodium 140 Potassium 4.1 Chloride 105 Carbon Dioxide 25.3 Anion Gap 13.8 BUN 16.0 Creatinine 0.83 Est GFR ( Amer) >60 Est GFR (Non-Af Amer) >60 BUN/Creatinine Ratio 19.3 Glucose 130 H Calcium 8.7 Total Bilirubin 0.3 AST 21 ALT 76 H Alkaline Phosphatase 58 Total Protein 6.7 Albumin 3.3 L Globulin 3.4 Albumin/Globulin Ratio 1.0 Discharge Plan Discharge Disposition: Home, Self-Care Discharge Medications: New levofloxacin 750 mg tablet 750 mg PO DAILY Qty: 5 0RF prednisone 20 mg tablet 20 mg PO DAILY Qty: 20 0RF Rx Instructions: 3 TAB X 3 DAYS, 2 TAB X 3 DAYS, 1 TAB X 3 DAYS, 1/2 TAB X 4 DAYS. Trelegy Ellipta 200-62.5-25 mcg blister with device 1 inh inhalation DAILY Qty: 60 0RF Continued albuterol sulfate 2.5 mg /3 mL (0.083 %) solution for nebulization 2.5 mg inhalation Q6H PRN (Reason: shortness of breath or wheezing) Qty: 90 0RF albuterol sulfate 90 mcg/actuation HFA aerosol inhaler 2 inh inhalation Q6H PRN (Reason: shortness of breath or wheezing) Qty: 8.5 0RF Activity: increase activity as tolerated Diet: advance to your usual diet Print Language: French Forms: Portal Instructions Follow Up Appointments: Dr Lucero Low., 2023 @ 1:45pm [phone], [facility] Dr. Lizbeth Hammonds. 2023 @ 3p [phone]
[2024-09-12 11:02] VITALS: PULSE 113; PULSE 118; O2SAT 93
--- NOTE | 2024-09-12 11:10 | CM.NOTE ---
Rounds made with Dr. Sepulveda, pt will discharge to home today. Pt will discharge with daily inhaler and nebulizer treatments. Pt does have home nebulizer. No discharge needs identified.
[2024-09-12] MEDS: LEVOFLOXACIN IN DEXTROSE 5 % 750 MG/150 ML PREMIX 150 MG IV (13:06)
[2024-09-12 13:15] VITALS: BP 131/67; PULSE 121; TEMP 36.7; O2SAT 97
--- NOTE | 2024-09-15 13:52 | CM.DCFOLLOWU ---
Person spoke with:patient How are you feeling? better How is your pain?none Did you understand your discharge instructions?yes Do you have any questions about your discharge instructions?no Were you given any prescriptions at discharge?yes Were you able to get your prescriptions filled? yes except for the inhaler, but pharmacy told him they would contact his PCP. Advised pt to call his PCP and check if they ordered something different. Do you understand how to take your medications as ordered? yes Do you have any questions about your follow up appointment and do you plan to keep your follow up appointment? no questions follow ups reviewed Is there anything else that you would like to discuss? no Questions/Comments/Concerns/Other:none
[2024-09-19 15:09] LABS: Alpha-1-Antitrypsin, Serum 129 mg/dL (95-164)
== END 2024-09-12 14:30 | disposition home or self-care (01) | DRG 720 ==
LOC: ER 09-09 01:00 → MS 09-09 02:20 → ICU 09-09 14:17 → MS 09-11 18:56
PROVIDERS: Internal Medicine; Registered Nurse; Admitting Provider Family Medicine; Emergency Provider Emergency Medicine; PCP Family Medicine; Visit Provider Family Medicine
DX: A41.9 Sepsis, unspecified organism (principal); J45.51 Severe persistent asthma with (acute) exacerbation; R06.03 Acute respiratory distress; F33.42 Major depressive disorder, recurrent, in full remission; F17.290 Nicotine dependence, other tobacco product, uncomplicated; J12.9 Viral pneumonia, unspecified; J43.2 Centrilobular emphysema; D72.10 Eosinophilia, unspecified; E66.9 Obesity, unspecified
CPT/HCPCS: 36415; 36600; 71045; 71250; 80048; 80053; 82103; 82104; 82800; 82805; 85025; 85027; 87420; 87502; 87804; 87811; 94640; 94667; 94668; 94761; 94799; 96372; 96374; 99285; 99406; J2060; J2919; J3475

== ENCOUNTER 2024-10-11 10:09 | Outpatient (RCR) | payer MEDICAID, SELFPAY | END 2024-10-12 15:02 | disposition home or self-care (01) | LOC: OT 10:09 | PROVIDERS: PCP Family Medicine; Visit Provider Orthopaedic Surgery | DX: S66.126D Laceration of flexor muscle, fascia and tendon of right little finger at wrist and hand level, subsequent encounter (principal) ==

== ENCOUNTER 2025-07-21 19:31 | Emergency (ER) | payer BC, SELFPAY ==
--- OUTSIDE RECORDS SUMMARY | 2024-09-13 05:00 | XMS_ITS ---
Author Organization [facility] Address [address] [place] [address] Care Team Providers Care Process Analyst Name Role Phone Carmen DC, Sanjiv Primary Care Provider Unavail Julian Beal Unavailable [phone] REASON FOR VISIT RT SF FLEXOR TENDON REP PO#2 Encounters Encounter Location Date Provider Diagnosis [facility] [facility] [address] [place] [phone] 09/13/2024 Julian Bunn Plan Of Treatment No Information Progress Notes * WILLOW WILKES WDOB:[birth year] (35 yo M)Acc No.[id number]:09/13/2024 Progress Notes Patient: WILOLW FLORES Provider: Coco Bunn DO :1990 A ge:34 Y S ex:Male Date:09/13/2024 Address:[address] [id number] Pcp:Sanjiv Morales MD Subjective: * Chief Complaints: * 1 . RT SF FLEXOR TENDON REP PO#2. * Medical History: Objective: * Vitals: Assessment: Plan: * Treatment: Forms: * Images: * Electronic signature of Ganga Bunn DO on 07/21/2025 at 07:38 PM EDT Sign off status: Pending * Provider: Coco Bunn DO Date: 11/14/2023 Generated for Printi ng/Faxing/eTransmitting on: 07:38 PM EDT
--- OUTSIDE RECORDS SUMMARY | 2024-09-19 09:45 | XMS_ITS ---
Author Organization [facility] [place] Address [address] [place] [address] Care Team Providers Care Beef Cattle Specialist Name Role Phone Carmen DC, Sanjiv Primary Care Provider Unavail Gera Spencer Unavailable [phone] REASON FOR VISIT HOSP. F/U Medications Medication [...] Encounter Location Date Provider Diagnosis [facility] [place] [address] [place] [address] 09/19/2024 Gera Barker Plan Of Treatment No Information Progress Notes * Nilo WILKES WDOB:[birth year] (35 yo M)Acc No.[id number]:09/19/2024 UNLOCKED PROGRESS NOTE Progress Note Patient: Nilo FLORES Provider: Guillermo Barker DO :1990 A ge:34 Y S ex:Male Date:09/19/2024 Address:[address] [id number] Pcp:Sanjiv Morales MD Subjective: * Chief Complaints: * 1 . HOSP. F/U. * HPI: G eneral: Patient presents for a follow up after a recent hospital admission to [facility] on 09/09/2024 for a Acute Asthma Exacerbation. Patient was previously under the care of [facility] in the past but reports not following up. * Medical History: * Surgical History: B ronchoscopy 05/25/2023, back surgery , appendectomy , hand surgery . * Hospitalization/Major Diagno stic Procedure: A cute Asthma Exacerbation-[facility] 09/09/2024. * Family History: M other: [...] Electronic signature of Thea Barker DO on 07/21/2025 at 07:38 PM EDT Sign off status: Pending Visit Status: N /S N/C (No Show/No Charge) * Provider: Guillermo Barker DO Date: 11/20/2023 Generated for Zari martino/Geo/eTcastrosmitting on: 07:38 PM EDT History and Physical Notes * HPI (History of Present Illness) Category Sub-Category Detail Notes Category Not es General Patient present s for a follow up after a recent hospital admission to [facility] on 09/09/2024 for a Acute Asthma Exacerbation. Patient was previously under the care of [facility] in the past but reports not following up.
--- OUTSIDE RECORDS SUMMARY | 2025-07-21 19:38 | XMS_ITS | Encounter Summary ---
Author Organization [employer] Address [id number] [address] [place] [address] Care Team Providers Care Tobacco Stripper Hand Name Role Phone Blake Perez MD Primary Care Provider [phone] Encounter Details Date Type Department Care Team (Late st Contact Info) Description 02/23/2022 Orders Only [facility] [address] [place] [address] Sanjiv Morales MD [address]. Provider retired 01/09/25 [place], [place] [id number] Social History Tobacco Use Types Packs/Day Years Used Date Smoking Tobacco: Every Day Cigarettes 0.5 15 Vaping/E-cigarettes Smokeless Tobacco: Never Alcohol Use Standard Drinks/Week Comments Not Currently 0 (1 standard drink = 0.6 oz pur e alcohol) Social Connection and Isolation Panel [NHANES] A nswer Date Recorded In a typical week, how many times do you talk on the phone with family, friends, or neighbors? Three times a week 2020 How often do you get togethe r with friends or relatives? Once a week 2020 How often do you attend chur ch or confucianism services? Never 2020 Do you belong to any clubs o r organizations such as amish groups, unions, fraternal or athletic groups, or school groups? No 2020 How often do you attend meet ings of the clubs or organizations you belong to? Not asked 2020 Are you , , di vorced, , never , or living with a partner? Never 2020 AUDIT-C Answer Date Recorded Frequency of Alcohol Consumption Never 10/30/2018 Average Number of Drinks Not on file 019 Frequency of Binge Drinking Not on file 10/12 Overall Financial Resource Strain (CARDIA) Answe r Date Recorded How hard is it for you to pa y for the very basics like food, housing, medical care, and heating? Not hard at all 2020 PHQ-2 Answer Date Recorded Total Score 0 02/19/2022 [facility] - Occupational Stress Questionnaire Answer Date Recorded Do you feel stress - tense, restless, nervous, or anxious, or unable to sleep at night because your mind is troubled all the time - these days? Not at all 2020 Exercise Vital Sign Answer Date Recorde d On average, how many days pe r week do you engage in moderate to strenuous exercise (like a brisk walk)? 0 days 2020 On average, how many minutes do you engage in exercise at this level? 0 min 2020 PRAPARE - Transportation Answer Date Re corded In the past 12 months, has l ack of transportation kept you from medical appointments or from getting medications? No 06/2020 In the past 12 months, has l ack of transportation kept you from meetings, work, or from getting things needed for daily living? No 2020 Childcare Answer Date Recorded Do problems getting child ca re make it difficult for you to work or study? No 2020 Employment Answer Date Recorded Do you need help finding a [facility] career center and/or a training program? No 2020 Purpose - Life Answer Date Recorded Purpose and direction in life Unknown Sex and Gender Information Value Date Recorded Sex Assigned at Not on file Legal Sex Male 8:33 PM EDT Gender Identity Not on file Sexual Orientation Not on file COVID-19 Exposure Response Date Recorded In the last 10 days, have yo u been in contact with someone who was confirmed or suspected to have Coronavirus/COVID-19? No / Unsure 02/20/2022 7:16 AM EDT documented as of this encounter Plan of Treatment Upcoming Encounters Date Type Department Care Team (Late st Contact Info) Description 06/18/2026 3:30 PM EDT Office Visit [facility] [address] [place] [phone] Blake Perez MD [address] [place] [phone] documented as of this encounter Goals Goal Patient Goal Type Associated Problems Recent Progress Patient-Stated? Author Home General Yes Maria De Jesus Soto LSW Note: Evaluation of progress towards goal: Safe dc transition from hospital to home with family support. Quit smoking / using tobacco Lifestyle No Maria De Jesus Soto LSW Note: Evaluation of progress towards goal: Reduce tobacco use to 0 ppd documented as of this encounter Visit Diagnoses Not on filedocumented in this encounter Additional Health Concerns Infection Onset Date Last Indicated Resolved Time COVID-19 Rule-Out 03/31/2022 03/31/2022 03/31/2022 1:30 PM EDT COVID-19 Rule-Out 12/06/2022 12/06/2022 12/06/2022 11:51 PM EST COVID-19 Rule-Out 05/04/2023 05/04/2023 05/04/2023 6:15 AM EDT COVID-19 Rule-Out 06/22/2024 06/22/2024 06/22/2024 2:53 AM EDT Assessment Noted Time PHQ-9 Depression Total Score: 0 02/20/20 22 8:00 AM EDT documented as of this encounter Care Teams Tobacco Stripper Hand Relationship Specialty Start Date End Date Blake Perez MD [address] [place] [address] PCP - General Internal Medicine 06/14/25 documented as of this encounter
--- OUTSIDE RECORDS SUMMARY | 2025-07-21 19:38 | XMS_ITS | Encounter Summary ---
Author Organization [facility] Address [id number] [address] [place] [address] Care Team Providers Care Warehouser Name Role Phone Blake Perez MD Primary Care Provider [phone] Encounter Details Date Type Department Care Team (Late st Contact Info) Description 04/02/2022 Telephone [facility] [address] [place] [address] Alicia Ponce DO [address] [id number] Social History Tobacco Use Types Packs/Day Years [...] often do you attend chur ch or evangelical services? Never 2020 Do you belong to any clubs o r organizations such as sikhism groups, unions, fraternal or athletic groups, or [...] PHQ-2 Answer Date Recorded Total Score 0 03/02/2022 [employer] [facility] ional [facility] - Occupational Stress [...] Recorded Do you need help finding a [facility] career center and/or a training program? No 2020 Purpose - Life Answer Date Recorded Purpose and direction in life Unknown Sex and Gender Information Value Date Recorded Sex Assigned at Not on file Legal Sex Male 8:33 PM EDT Gender Identity Not on file Sexual Orientation Not on file COVID-19 Exposure Response Date Recorded In the last month, have you been in contact with someone who was confirmed or suspected to have Coronavirus / COVID-19? No / Unsure 03/31/2022 11:54 AM EDT documented as of this encounter Miscellaneous Notes * Telephone Encounter - Verona Donato - 04/02/2022 11:44 AM EDT Working on rescheduling your May 14 schedule, does he need to be seen sooner than June? Ifso, any recommendations as to where you would like me to add him on? Thanks * Telephone Encounter - Alicia Ponce DO - 04/02/2022 11:44 AM EDT May 30 3:45 documented in this encounter Plan of Treatment Upcoming Encounters Date Type Department Care Team (Late st Contact Info) Description 06/18/2026 3:30 PM EDT Office Visit [facility] [address] [place] [phone] Blake Perez MD [address] [place] [address] documented as of this encounter Goals Goal [...] Date Last Indicated Resolved Time COVID-19 Rule-Out 12/06/2022 12/06/2022 12/06/2022 11:51 PM EST COVID-19 Rule-Out 05/04/2023 05/04/2023 05/04/2023 6:15 AM EDT COVID-19 Rule-Out 06/22/2024 06/22/2024 06/22/2024 2:53 AM EDT Assessment Noted Time PHQ-9 Depression Total Score: 0 03/02/20 8:00 AM EDT documented as of this encounter Care Teams Warehouser Relationship Specialty Start Date End Date Blake Perez MD [facility] [phone] PCP - General Internal Medicine 06/14/25 documented as of this encounter
--- OUTSIDE RECORDS SUMMARY | 2025-07-21 19:38 | XMS_ITS | Clinical Summary ---
Author Organization [facility] Address [address] [place] [address] Care Team Providers Care Crystalizer Tender Name Role Phone Sanjiv Morales MD Primary Care Provider [phone] Allergies No known active allergies Medications albuterol (Proventil) 2 MG tablet Take 2 mg by mouth in the morning and 2 mg in the evening and 2 mg before bedtime. Active Family History Medical History Relation Name Comments Cancer Maternal Grandfather Heart disease Paternal Grandmother Relation Name Status Comments Maternal Grandfather Paternal Grandmother Social History Tobacco Use Types Packs/Day Years Used Date Smoking Tobacco: Never Smokeless Tobacco: Never Tobacco Cessation:Counseling Given: Not Answered Alcohol Use Standard Drinks/Week Comments Not Currently 0 (1 standard drink = 0.6 oz pur e alcohol) Sex and Gender Information Value Date Recorded Sex Assigned at Not on file Legal Sex Male 7:18 PM EDT Gender Identity Not on file Sexual Orientation Not on file Last Filed Vital Signs Vital Sign Reading Time Taken Comments Blood Pressure - - Pulse - - Temperature - - Respiratory Rate - - Oxygen Saturation - - Inhaled Oxygen Concentration - - Weight 97.5 kg (215 lb) 12/16/2023 1:56 PM EST Height 175.3 cm (5' 9 ) 12/16/2023 1:56 PM EST Body Mass Index 31.75 12/16/2023 1:56 PM EST Plan of Treatment Not on file Insurance [employer] [place] Care Teams Crystalizer Tender Relationship Specialty Start Date End Date Sanjiv Morales MD [address] [place] [address] PCP - General Family Medicine 01/31/25
--- OUTSIDE RECORDS SUMMARY | 2025-07-21 19:38 | XMS_ITS | Encounter Summary ---
Author Organization [employer] [facility] [employer] Address [id number] [address] [place] [address] Care Team Providers Care Prom Burn Off Operator Name Role Phone Blake Perez MD Primary Care Provider [phone] Encounter Details Date Type Department Care Team (Late st Contact Info) Description 07/11/2021 Orders Only [facility] [address] [place] [address] Dimas Velasco MD [address] [facility], [address] [place] [address] Social History Tobacco Use Types Packs/Day Years Used Date Smoking Tobacco: Every Day Cigarettes Smokeless Tobacco: Never Alcohol Use Standard Drinks/Week Comments Yes 0 (1 standard drink = 0.6 oz pur e alcohol) weekly Social Connection and Isolation Panel [NHANES] A nswer Date Recorded In a typical week, how many times do you talk on the phone with family, friends, or neighbors? Three times a week 2020 How often do you get togethe r with friends or relatives? Once a week 2020 How often do you attend chur ch or worship services? Never 2020 Do you belong to any clubs o r organizations such as faith groups, unions, fraternal or athletic groups, or [...] PHQ-2 Answer Date Recorded Total Score 0 10/24/2020 [employer] of Occupat ional Health - [...] Recorded Do you need help finding a [facility] career center and/or a training [...] have Coronavirus / COVID-19? No / Unsure 07/14/2021 2:42 PM EDT documented as of this encounter Plan of Treatment Upcoming Encounters Date Type Department Care Team (Late st Contact Info) Description 06/18/2026 3:30 PM EDT Office Visit [facility] [address] [place] [address] Blake Perez MD [facility] [place], [place] [phone] documented as of this encounter Goals Goal [...] Date Last Indicated Resolved Time COVID-19 Rule-Out 09/15/2021 09/15/2021 09/15/2021 3:14 AM EST COVID-19 Positive 09/15/2021 09/15/2021 10/06/2021 11:12 PM EST COVID-19 Rule-Out 03/31/2022 03/31/2022 03/31/2022 1:30 PM EDT COVID-19 Rule-Out 12/06/2022 12/06/2022 12/06/2022 11:51 PM EST COVID-19 Rule-Out 05/04/2023 05/04/2023 05/04/2023 6:15 AM EDT COVID-19 Rule-Out 06/22/2024 06/22/2024 06/22/2024 2:53 AM EDT Assessment Noted Time PHQ-9 Depression Total Score: 0 10/24/19 11:00 AM EST documented as of this encounter Care Teams Prom Burn Off Operator Relationship Specialty Start Date End Date Blake Perez MD [address] [place] [address] PCP - General Internal Medicine 06/14/25 documented as of this encounter
--- OUTSIDE RECORDS SUMMARY | 2025-07-21 19:38 | XMS_ITS | Encounter Summary ---
Author Organization [facility] Address [address] [place] [address] Care Team Providers Care Potato Loader Name Role Phone Sanjiv Morales MD Primary Care Provider [phone] Encounter Details Date Type Department Care Team (Late st Contact Info) Description 02/25/2024 Abstract [facility] [address] [place] [phone] Alexx Davison DPM [address] [place], [place] [phone] Social History Tobacco Use Types Packs/Day Years Used Date Smoking Tobacco: Never Smokeless Tobacco: Never Alcohol Use Standard Drinks/Week Comments Not Currently 0 (1 standard drink = 0.6 oz pur e alcohol) Sex and Gender Information Value Date Recorded Sex Assigned at Not on file Legal Sex Male 7:18 PM EDT Gender Identity Not on file Sexual Orientation Not on file documented as of this encounter Plan of Treatment Not on file documented as of this encounter Visit Diagnoses Not on filedocumented in this encounter Care Teams Potato Loader Relationship Specialty Start Date End Date Sanjiv Morales MD [address] [place] [address] PCP - General Family Medicine 01/31/25 documented as of this encounter
--- OUTSIDE RECORDS SUMMARY | 2025-07-21 19:38 | XMS_ITS | Encounter Summary ---
Author Organization [facility] [employer] [facility] Address [id number] [address] [place] [address] Care Team Providers Care Bowling Or Skating Front Desk Clerk Name Role Phone Blake Perez MD Primary Care Provider [phone] Reason for Visit * Reason Onset Date Comments Med Refill 09/22/2024 Encounter Details Date Type Department Care Team (Late st Contact Info) Description 09/22/2024 Refill [facility] [address] [place] [phone] Umu Christy LPN Social History Tobacco Use Types Packs/Day Years Used Date Smoking Tobacco: Every Day Vaping/E-cigarettes Smokeless Tobacco: Never Alcohol Use Standard [...] often do you attend chur ch or muslim services? Never 2020 Do you belong to any clubs o r organizations such as mu-ism groups, unions, fraternal or athletic groups, or [...] like food, housing, medical care, and heating? Somewhat hard 06/04/2024 PHQ-2 Answer Date Recorded Total Score 0 09/22/2024 [facility] of Occupat ional Health - Occupational Stress [...] from medical appointments or from getting medications? Yes 05/12 In the past 12 months, has l ack of transportation kept you from meetings, work, or from getting things needed for daily living? Yes 06/04/2024 Housing Instability Answer Date Recorde d Are you worried or concerned that in the next two months you may not have stable housing that you own, rent or stay in as a part of a household? Yes 06/04/2024 Childcare Answer Date Recorded Do problems getting child ca re make it difficult for you to work or study? No 2020 Employment Answer Date Recorded Do you need help finding a [facility] career center and/or a training program? No 2020 Hunger Screening Answer Date Recorded Within the past 12 months we worried whether our food would run out before we got money to buy more. Never True 09/22/2024 Within the past 12 months th e food we bought just didn't last and we didn't have money to get more. Never True 09/22/2024 Purpose - Life Answer Date Recorded Purpose [...] Office Visit [facility] [address] [place] [phone] Blake Perez MD [address] [place] [address] documented as of this encounter Goals [...] filedocumented in this encounter Additional Health Concerns Assessment Noted Time PHQ-9 Depression Total Score: 0 09/22/20 24 7:00 AM EST documented as of this encounter Care Teams Bowling Or Skating Front Desk Clerk Relationship Specialty Start Date End Date Blake Perez MD [address] [place] [address] PCP - General Internal Medicine 06/14/25 documented as of this encounter
--- OUTSIDE RECORDS SUMMARY | 2025-07-21 19:38 | XMS_ITS | Encounter Summary ---
Author Organization [employer] [facility] Address [id number] [address] [place] [address] Care Team Providers Care Shelter Case Manager Name Role Phone Blake Perez MD Primary Care Provider [phone] Encounter Details Date Type Department Care Team (Late st Contact Info) Description 05/24/2023 Telephone [facility] [address] [address] Josette Zacarias RN Social History Tobacco Use Types Packs/Day Years [...] often do you attend chur ch or methodist services? Never 2020 Do you belong to any clubs o r organizations such as holiness groups, unions, fraternal or athletic groups, or [...] PHQ-2 Answer Date Recorded Total Score 0 05/17/2023 [facility] [place] of Occupat ional Health - Occupational Stress [...] Recorded Do you need help finding a [facility] career center and/or a training program? No 2020 Purpose - Life Answer Date Recorded Purpose and direction in life Unknown Sex and Gender Information Value Date Recorded Sex Assigned at Not on file Legal Sex Male 8:33 PM EDT Gender Identity Not on file Sexual Orientation Not on file documented as of this encounter Miscellaneous Notes * Telephone Encounter - Josette Zacarias RN - 05/24/2023 12:21 PM EDT Images from the original note were not included. Machine Leather Trimmer attempted to contact patient. No answer. Left message informing okay for patient to start Keflex prior to procedure tomorrow with SE. Left office phone number for any further questions/concerns. documented in this encounter Plan of Treatment Upcoming Encounters Date Type Department Care Team (Late st Contact Info) Description 06/18/2026 3:30 PM EDT Office Visit [facility] [address] [place] [phone] Blake Perez MD [address] [place] [phone] documented as of this encounter Goals Goal [...] Date Last Indicated Resolved Time COVID-19 Rule-Out 06/22/2024 06/22/2024 06/22/2024 2:53 AM EDT Assessment Noted Time PHQ-9 Depression Total Score: 0 05/17/20 23 7:00 AM EDT documented as of this encounter Care Teams Shelter Case Manager Relationship Specialty Start Date End Date Blake Perez MD [address] [place] [address] PCP - General Internal Medicine 06/14/25 documented as of this encounter
--- OUTSIDE RECORDS SUMMARY | 2025-07-21 19:38 | XMS_ITS | Patient Health Record ---
Author Organization [facility] [place] Address [address] [place] [address] Care Team Providers Care Sole Ruffer Name Role Phone Sanjiv Morales MD Primary Care Provider Unavail able Gera Barker Unavailable [phone] Allergies No Known Allergies Results Component Value Reference Range Notes Akahi-0-Aqjltywacta Phenotyp Reviewed date:10/18/2024 02:24:40 PM Interpretation: Performing Lab: Notes/Report: [facility] , Mcifw-0-Oirordgcyyt, Serum 129 95-164 mg/dL Phenotype (PI) MM . MM Phenotype is considered to be normal , producing normal serum levels of ijmub-2-hjitllvq inhibitor and not associated with clinical disease. Associated A1A total serum levels in other phenotypes and their incidence in the general population are shown in the table below. Phenotype Population % function A-1-AT Conc.* Incidence % compared to MM (Typical Range) MM 86.5% 100% (96 - 189) MS 8.0% 86% (83 - 161) MZ 3.9% 61% (60 - 111) FM 0.4% 100% (93 - 191) SZ 0.3% 41% (42 - 75) SS 0.1% 64% (62 - 119) ZZ 0.05% 19% (16 - 38) FS 0.05% 70% (70 - 128) FZ Unknown 46% (44 - 88) FF Unknown Unknown *A-1-AT concentration in the homozygous MM phenotype is taken as the reference normal. Percent deficiency in each phenotype is reported relative to this reference. Ranges used to confirm phenotype. Performed at: [facility] [address] [id number] Fishery Biologist: Tam Rey PhD, Phone: [phone] Performed at: [facility] [address] [id number] Fishery Biologist: Mak Ayers MD, Phone: [phone] Performing Lab: see note - [facility] Reason For Referral No Information Medications Medication SIG (Take, Route, Frequency, Duration) Notes Start Date End Date Status Albuterol Sulfate HFA 108 (90 Base) MCG/ACT Inhalation; Duration: 25 Days Active Albuterol Sulfate (2.5 MG/3ML) 0.083% USE 1 VIAL IN NEBULIZER EVERY 6 HOURS NEEDED FOR SHORTNESS OF BREATH OR WHEEZING Inhalation; Duration: 8 Days Active Symbicort 160-4.5 MCG/ACT Inhalation; Du ration: 30 Days Active Immunizations Vaccine Route Administration Date Status Comme nts Tdap (Boostrix) Unknown 07/28/2024 Administered Social History Tobacco Use: Social History Observation Description Date Details (start date - stop date) Current Smoker NA - NA Tobacco Control (Standard) Question Answer Notes Tobacco use: Current every day smoker Additional Findings: Tobacco user e-cigarette Additional Findings: Tobacco non-user Ex-moderat e cigarette smoker (-/day) Problems Problem Type SNOMED Code ICD Code Onset Dates Problem Status W/U Status Risk Notes Problem Exacerbation of asthma (698863624) Unspecified asthma with (acute) exacerbation (J45.901) Active confirmed Problem Obesity (717906252) Obesity, unspecified (E66.9) Active confirmed Problem Tobacco user (808756337) Nicotine dependence, unspecified, uncomplicated (F17.200) Active confirmed Problem Centrilobular emphysema (46073534) Centrilobular emphysema (J43.2) Active confirmed Problem Uncomplicated severe persistent asthma (126699400) Severe persistent asthma, uncomplicated (J45.50) Active confirmed Problem Long-term current use of inhaled steroid (669083599) skilled nursing (current) use of inhaled steroids (Z79.51) Active confirmed Problem Tobacco user (977654692) Vaping nicotine dependence, 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) Active confirmed Problem Peripheral eosinophilia (D72.19) Active confirmed Vital Signs Heart Rate 119 /min 11/14/2024 Temperature 97.1 degrees Fahrenheit 11/14/2024 Respiratory Rate 18 /min 11/14/2024 Oximetry 98 % 11/14/2024 Blood pressure diastolic 73 mm Hg 11/14/2024 Height 69 in 11/14/2024 Blood pressure systolic 138 mm Hg 11/14/2024 Weight 243.0 lbs 11/14/2024 BMI 35.88 kg/m2 11/14/2024 Encounters Encounter Location Date Provider Diagnosis Pulmonary [facility] [place] [address] [place] [address] 11/14/2024 [facility] Severe persistent asthma, uncomplicated J45.50 ; Centrilobular emphysema J43.2 ; Peripheral eosinophilia D72.19 ; Vaping nicotine dependence, tobacco product F17.290 ; skilled nursing (current) use of inhaled steroids Z79.51 and Obesity, class 2 E66.812 [facility] [place] [address] [place] [address] 09/11/2024 [facility] Pulmonary [facility] [address] [place] [address] 09/19/2024 [facility] [address] [place] [address] 06/04/2025 [facility] Assessments Encounter Date Diagnosis (ICD Code) Assessment Notes Treatment Notes Treatment Clinical Notes Section Notes 11/14/2024 Severe persistent asthma, uncomplicated (ICD-10 - J45.50) Asthma was uncontrolled when seen inpatient September 2024. It is better managed now that he is back on a maintenance inhaler - he has responded well to Symbicort 160. He continues to vape and he was counseled that he is beginning to develop emphysematous changes from history of tobacco abuse and vaping - AAT was checked which he has a normal phenotype, so cannot blame that genetic defect. Because he was so symptomatic during the exacerbation, I recommended that the patient follow with me at a minimum of once a year so I am available in the event his breathing begins to worsen. He voiced agreement. The next step if he worsens would be to add a LAMA. He may be a biologic candidate in the future if he is symptomatic despite triple inhaled therapy. F/U 1 year. 11/14/2024 Centrilobular emphysema (ICD-10 - J43.2) Asthma-COPD overlap. Normal AAT. 11/14/2024 Peripheral eosinophilia (ICD-10 - D72.19) Eosinophils: -09/08/2024: 4.8% / 500 Modest elevation in eosinophils. If asthma becomes uncontrolled, may be a biologic candidate. 11/14/2024 Vaping nicotine dependence, tobacco product (ICD-10 - F17.290) Prior smoking history ~1ppd x 14 years, now vaping. Explained that he has already developed mild emphysema on chest CT, and vaping fumes can also adversely affect his pulmonary function. He was counseled to quit. 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 11/14/2024 Obesity, class 2 (ICD-10 - E66.812) Patient's weight is inducing a restrictive pulmonary physiology. Weight loss indicated: Decrease calories, increase activity. Plan Of Treatment No Information Insurance Providers Payer Name Payer Address Payer Phone Subscriber Number Group Number Insured Name Patient Relationship to Insured Coverage Start Date Coverage End Date [employer] [place] [employer] [address] [address] [place] [address] [id number] Nilo Short Self - patient is the insured Medical (General) History Medical History History ICD Code Severe persistent asthma, uncomplicated J45.50 Peripheral eosinophilia D72.19 Centrilobular emphysema J43.2 Depression F32.A Vaping nicotine dependence, tobacco prod uct F17.290 Surgical History Surgery Date(Month/Year) Bronchoscopy 05/25/2023 back surgery appendectomy hand surgery Hospitalization History Reason Date(Month/Year) Acute Asthma Exacerbation-[facility] 09/09/2024
--- OUTSIDE RECORDS SUMMARY | 2025-07-21 19:38 | XMS_ITS | Clinical Summary ---
Author Organization [facility] Address [address] [place] [address] Care Team Providers Care Underground Heavy Equipment Operator Name Role Phone Unknown, Provider Primary Care Provider Unavaila ble Social History Tobacco Use Types Packs/Day Years Used Date Smoking Tobacco: Never Assessed Sex and Gender Information Value Date Recorded Sex Assigned at Not on file Legal Sex Male 11:09 AM EDT Gender Identity Not on file Sexual Orientation Not on file Plan of Treatment Health Maintenance Due Date Last Done Comments MMR Vaccine (1 of 1 - Standa rd series) 1990 DTaP/Tdap/Td Vaccine (1 - Tdap) 1996 Varicella Vaccine (1 of 2 - 13+ 2-dose series) 2002 Hepatitis B Vaccine (1 of 3 - 19+ 3-dose series) 2008 HPV Vaccine (1 - 3-dose SCDM series) 2016 COVID-19 Vaccine ( - 2023-2 5 season) 2025 Influenza Vaccine (#1) 2025 HIB Vaccine Aged Out No longer eligi ble based on patient's age to complete this topic Hepatitis A Vaccine Aged Out No longe r eligible based on patient's age to complete this topic IPV Vaccine Aged Out No longer eligi ble based on patient's age to complete this topic Meningococcal ACWY Vaccine Aged Out N o longer eligible based on patient's age to complete this topic Meningococcal B Vaccine Aged Out No l onger eligible based on patient's age to complete this topic Pneumococcal Vaccine Aged Out No long er eligible based on patient's age to complete this topic RSV Antibodies Aged Out No longer caroline gible based on patient's age to complete this topic Rotavirus Vaccine Aged Out No longer eligible based on patient's age to complete this topic Care Teams Underground Heavy Equipment Operator Relationship Specialty Start Date End Date Unknown, Provider PCP - General 04/06/25
--- OUTSIDE RECORDS SUMMARY | 2025-07-21 19:38 | XMS_ITS | Encounter Summary ---
Author Organization [facility] Address [id number] [address] [place] [address] Care Team Providers Care Director Of Guidance In [employer] Name Role Phone Blake Perez MD Primary Care Provider [phone] Reason for Referral * Consultation (Routine) - Closed Specialty Diagnoses / Procedures Referred By Sydnie redman Referred To Contact Pulmonary Disease / Pulmonary Medicine Diagnoses Pneumonia of left upper lobe due to infectious organism Sanjiv Morales MD Phone: tel: fax: Alicia Ponce DO [address] [place] [address] Phone: tel: fax: Referral ID Status Reason Start Date Expiration Date V isits Requested Visits Authorized [id number] Closed Specialty Services Required 03/18/2022 03/18/2023 1 1 Encounter Details Date Type Department Care Team (Late st Contact Info) Description 03/18/2022 Orders Only [facility] [address] [place] [phone] Sanjiv Morales MD [address] Provider retired 01/09/25 [place] [address] Pneumonia of left upper lobe due to infectious organism (Primary Dx) Social History Tobacco Use Types Packs/Day Years [...] often do you attend chur ch or yazdanism services? Never 2020 Do you belong to any clubs o r organizations such as evangelical groups, unions, fraternal or athletic groups, or [...] Answer Date Recorded Total Score 0 03/02/2022 [facility] [place] of Occupat ional Health - Occupational Stress [...] Recorded Do you need help finding a [facility] career center and/or a training [...] suspected to have Coronavirus/COVID-19? No / Unsure 03/19/2022 8:26 AM EDT documented as of this encounter Plan of Treatment Upcoming Encounters Date Type Department Care Team (Late st Contact Info) Description 06/18/2026 3:30 PM EDT Office Visit [facility] [address] [place] [address] Blake Perez MD [address] [place] [address] Scheduled Referrals Name Type Priority Associated Diagnoses Order Schedule Referral to [facility] Outpatient Referral Routine Pneumonia of left upper lobe due to infectious organism 1 Occurrences starting 03/18/2022 until 03/18/2023 documented as of this encounter Goals Goal [...] documented as of this encounter Visit Diagnoses Diagnosis Pneumonia of left upper lobe due to infectious organism- Primary documented in this encounter Additional Health Concerns Infection [...] documented as of this encounter Care Teams Director Of Guidance In Public Schools Relationship Specialty Start Date End Date Blake Perez MD [address] [place] [address] PCP - General Internal Medicine 06/14/25 documented as of this encounter
--- OUTSIDE RECORDS SUMMARY | 2025-07-21 19:38 | XMS_ITS | Encounter Summary ---
Author Organization [employer] Address [id number] [address] [place] [address] Care Team Providers Care Hand Dry Cleaner Name Role Phone Blake Perez MD Primary Care Provider [phone] Encounter Details Date Type Department Care Team (Late st Contact Info) Description 05/14/2021 Telephone [facility] [address] [place] [address] Sanjiv Morales MD [address] [facility]. Provider retired 01/09/25 [place], [place] [id number] Social History Tobacco Use Types Packs/Day Years Used Date Smoking Tobacco: Every Day Cigarettes Smokeless Tobacco: Never Comments:pt states too hard to quit Alcohol Use Standard Drinks/Week Comments Yes 0 [...] often do you attend chur ch or sikhism services? Never 2020 Do you belong to any clubs o r organizations such as zoroastrianism groups, unions, fraternal or athletic groups, or [...] Answer Date Recorded Total Score 0 10/24/2020 [facility] of Occupat ional Health - Occupational [...] Recorded Do you need help finding a [facility] career center and/or a training program? No 2020 Purpose - Life Answer Date Recorded Purpose and direction in life Unknown Sex and Gender Information Value Date Recorded Sex Assigned at Not on file Legal Sex Male 8:33 PM EDT Gender Identity Not on file Sexual Orientation Not on file documented as of this encounter Miscellaneous Notes * Telephone Encounter - Sanjiv Morales MD - 05/14/2021 7:42 AM EDT Suggest yearly wellness documented in this encounter Plan of Treatment Upcoming Encounters Date Type Department Care Team (Late st Contact Info) Description 06/18/2026 3:30 PM EDT Office Visit [facility] [address] [place] [phone] Blake Perez MD [address] [place] [phone] documented as of this encounter Goals Goal [...] documented as of this encounter Care Teams Hand Dry Cleaner Relationship Specialty Start Date End Date Blake Perez MD [address] [place] [address] PCP - General Internal Medicine 06/14/25 documented as of this encounter
--- OUTSIDE RECORDS SUMMARY | 2025-07-21 19:38 | XMS_ITS | Encounter Summary ---
Author Organization [facility] Address [id number] [address] [place] [address] Care Team Providers Care Wine Sales Representative Name Role Phone Blake Perez MD Primary Care Provider [phone] Encounter Details Date Type Department Care Team (Latest Contact Info) Description 06/18/2025 Results Follow-Up [facility] [address] [place] [phone] Blake Perez MD [address] [place] [address] Comprehensive metabolic panel, Lipid profile, CBC auto differential, Additional followed-up results: 2 Social History Tobacco Use Types Packs/Day Years [...] any clubs o r organizations such as rastafarian groups, unions, fraternal or athletic groups, or [...] housing, medical care, and heating? Somewhat hard 06/12/2025 PHQ-2 Answer Date Recorded Total Score 0 06/14/2025 [facility] - Occupational Stress [...] medical appointments or from getting medications? No 11/2024 In the past 12 months, has l ack of transportation kept you from meetings, work, or from getting things needed for daily living? No 06/12/2025 Housing Instability Answer Date Recorde d Are you worried or concerned that in the next two months you may not have stable housing that you own, rent or stay in as a part of a household? No 06/12/2025 Childcare Answer Date Recorded Do problems getting child ca re make it difficult for you to work or study? No 2020 Employment Answer Date Recorded Do you need help finding a l al career center and/or a training program? No 2020 Hunger Screening Answer Date Recorded Within the past 12 months we worried whether our food would run out before we got money to buy more. Never True 06/14/2025 Within the past 12 months th e food we bought just didn't last and we didn't have money to get more. Never True 06/14/2025 Purpose - Life Answer Date Recorded Purpose and direction in life Unknown 01 / Sex and Gender Information Value Date Recorded Sex Assigned at Not on file Legal Sex Male 8:33 PM EDT Gender Identity Not on file Sexual Orientation Not on file documented as of this encounter Plan of Treatment Upcoming Encounters Date Type Department Care Team (Late st Contact Info) Description 06/18/2026 3:30 PM EDT Office Visit [facility] [address] [place] [phone] Blake Perez MD [address] [place] [phone] documented as of this encounter Goals Goal [...] Noted Time PHQ-9 Depression Total Score: 0 06/14/20 3:09 PM EDT A Body Mass Index follow-up plan has been documented for the patient 06/14/2025 3:29 PM EDT documented as of this encounter Care Teams Wine Sales Representative Relationship Specialty Start Date End Date Blake Perez MD [address] [place] [address] PCP - General Internal Medicine 06/14/25 documented as of this encounter
--- OUTSIDE RECORDS SUMMARY | 2025-07-21 19:38 | XMS_ITS | Encounter Summary ---
Author Organization [employer] Address [id number] [address] [place] [address] Care Team Providers Care Tents Assembler Name Role Phone Blake Perez MD Primary Care Provider [phone] Encounter Details Date Type Department Care Team (Late st Contact Info) Description 09/17/2023 Orders Only [facility] [address] [place] [address] Umu Christy LPN Chronic right shoulder pain Social History Tobacco Use Types Packs/Day Years [...] often do you attend chur ch or amish services? Never 2020 Do you belong to any clubs o r organizations such as taoist groups, unions, fraternal or athletic groups, or [...] PHQ-2 Answer Date Recorded Total Score 0 08/04/2023 [facility] - Occupational Stress Questionnaire Answer Date Recorded [...] Recorded Do you need help finding a [employer] career center and/or a training program? No 2020 Hunger Screening Answer Date Recorded Within the past 12 months we worried whether our food would run out before we got money to buy more. Never True 08/24/2023 Within the past 12 months th e food we bought just didn't last and we didn't have money to get more. Never True 08/24/2023 Purpose - Life Answer Date Recorded Purpose [...] Office Visit [facility] [address] [place] [address] Blake Perez MD [address] [place] [address] documented as of this encounter Goals Goal [...] 0 ppd documented as of this encounter Procedures Procedure Name Priority Date/Time Associated Diagnosis Comments AMB REFERRAL TO ORTHOPEDIC SURGERY Routine 09/16/2023 Chronic right shoulder pain documented in this encounter Results * Ambulatory referral to Orthopedic Surgery (09/16/2023) us Sanjiv Morales MD OUTPATIENT REFERRAL ORDERABL ES Final Result MANUALLY TRANSCRIBED RESULTS documented in this encounter Visit Diagnoses Diagnosis Chronic right shoulder pain Pain in joint, shoulder region documented in this encounter Additional Health Concerns Infection Onset Date Last Indicated Resolved Time COVID-19 Rule-Out 06/22/2024 06/22/2024 06/22/2024 2:53 AM EDT Assessment Noted Time PHQ-9 Depression Total Score: 0 08/04/20 7:00 AM EDT documented as of this encounter Care Teams Tents Assembler Relationship Specialty Start Date End Date Blake Perez MD [address] [place] [address] PCP - General Internal Medicine 06/14/25 documented as of this encounter
--- OUTSIDE RECORDS SUMMARY | 2025-07-21 19:38 | XMS_ITS | Patient Health Record ---
Author Organization [facility] Address [address] [place] [address] Care Team Providers Care Shot Bagger Name Role Phone Sanjiv Morales MD Primary Care Provider Unavail able Julian Bunn Unavailable [phone] Celina Forrest Unavailable [phone] Pedro De La Fuente Unavailable [phone] Mireille Alston Unavailable Results Component Value Reference Range Notes Surgery Scheduling Reviewed date:08/08/2024 11:30:27 AM Interpretation: Performing Lab: Notes/Report: Primary Insurance Company: MEDICAID [place] Surgeon/Assist: DR. BUNN Surgery Location: [facility] Surgery Date & Time: 08/03/24 2:30PM Hosp arrival time day of: 12:30PM Surgery End Time: 4PM Procedure: RIGHT SMALL FINGER Z ONE 2 FLEXOR TENDON REPAIR, POSSIBLE NERVE REPAIR Diagnosis: RIGHT SMALL FINGER F LEXOR TENDON LACERATION Admission Type: OUT PT Anesthesia Type/CPNB: BLOCK/MAC Bed NO Post-op Appointment Date: 08/16/24 10AM [facility] Latex Allergy NO Pediatric Associate: ANNAMARIE History & Physical Appointme nt Date/: 08/02/24 Pre-op labs/Chest Order: CBC,BMP Had or have MRSA/Direct cont act w MRSA pt/HCW NO Had dental problems/Yes-no/type: NO Reason For Referral Reason APPROVED [facility]. .....08/03.......RIGHT SMALL FIGNER ZONE 2 FLEXOR TENDON REPAIR, POSSIBLE NERVE REPAIR Danilo Arenas 08/02/2024 08:07:15 >[id number], [id number] Diagnosis 1 Laceration of flexor tendon of right hand, initial encounter (S66.821A) Referral Organization [facility] Referring Provider First Name Julian Referring Provider Last Name Oni Referring Provider Speciality Orthopedic Surgery Referred Organization [facility] Outpatient Referred Provider Julian Bunn Referred Address [address], [id number],[place] Referred Provider Specialty Orthopedic S urgery Procedure 1 Repair or advancemen t, flexor tendon, in zone 2 digital flexor tendon sheath (eg, [place]); primary, (17498) Procedure 2 Repair of digital ne rve (32606) General Notes Annamarie Leon 07:52:17 AM >, Mei Mistry 08/02/2024 07:55:23 AM > req codesFidelia Tammy 08/02/2024 08:27:21 AM >Danilo Arenas 08/02/2024 08:07:15 >[id number], [id number] Tammy 08/02/2024 08:34:45 AM > APPROVED Auth #[id number], Valid 08/03/2024 - 09/03/2024, auth scanned in, faxed to [facility], Annamarie Leon 08/02/2024 09:08:07 AM > Referral Priority Stat Reason PRIOR AUTH APPROVED [facility] [employer]....Please precert for custom fabricated orthoplastic dorsal blocking splint L3906 Diagnosis 1 Laceration of flexor tendon of right hand, initial encounter (S66.821A) Diagnosis 2 Laceration of flexor muscle, fascia and tendon of right little finger at wrist and hand level, initial encounter (S66.126A) Referral Organization [facility] Referring Provider First Name Celina Referring Provider Last Name Lon Referring Provider Speciality Occupation al Therapy Referred Organization [facility] Referred Address [address],[place] ,[place],[address],[place] Procedure 1 Dorsal Blocking Spin t OTR (L3906) General Notes Celina Forrest 03/2024 12:07:20 PM >Shubham Jane Chelsea 08/16/2024 02:07:58 PM > PER [employer]ILITY PRIOR AUTH HAS BEEN APPROVED FROM 08/16/2024-11/16/2024 AUTH # [id number], AUTH IN CHART. Referral Priority Routine Social History Tobacco Use: Social History Observation Description Date Details (start date - stop date) Unknown Smoking History Question Answer Notes Smoking Status Uses tobacco in other forms AUDIT-C (Standard) Question Answer Notes How often did you have six o r more drinks on one occasion in the past year? Less than monthly (1 point) How many drinks did you have on a typical day when you were drinking in the past year? 1 or 2 drinks (0 point) How often did you have a dri nk containing alcohol in the past year? Monthly or less (1 point) Did you have a drink contain ing alcohol in the past year? Yes Points 0 Interpretation Negative Tobacco Control (Standard) Question Answer Notes Tobacco use: Uses tobacco in other forms Additional Findings: Tobacco user e-cigarette Problems Problem Type SNOMED Code ICD Code Onset Dates Problem Status W/U Status Risk Notes Problem Laceration of flexor muscle, fascia and tendon of right little finger at wrist and hand level, initial encounter (S66.126A) Active confirmed Problem 109036403 Laceration of flexor muscle, fascia and tendon of right little finger at wrist and hand level, subsequent encounter (S66.126D) Active confirmed Problem 872296921 Encounter for other orthopedic aftercare (Z47.89) Active confirmed Problem [id number] Laceration of flexor tendon of right hand, initial encounter (S66.821A) Active confirmed Vital Signs Height 5'9 in 08/16/2024 Weight 220 lbs 08/16/2024 BMI 32.48 08/16/2024 Encounters Encounter Location Date Provider Diagnosis [facility] [place] [facility] [address] [facility] [address] [place] [address] [place] [address] 07/31/2024 Mireille Alston Laceration of flexor tendon of right hand, initial encounter S66.821A [facility] [address] [place] [address] 08/02/2024 Julian Bunn Encounter for preprocedural laboratory examination Z01.812 and Laceration of flexor muscle, fascia and tendon of right little finger at wrist and hand level, initial encounter S66.126A [facility] [address] [place] [phone] 08/03/2024 Julian Bunn Laceration of flexor muscle, fascia and tendon of right little finger at wrist and hand level, initial encounter S66.126A [facility] [address] [place] [address] 08/16/2024 Pedro Stippich Laceration of flexor muscle, fascia and tendon of right little finger at wrist and hand level, subsequent encounter S66.126D and Encounter for other orthopedic aftercare Z47.89 [place] [address] [place] [address] 08/16/2024 Celina Forrest Laceration of flexor muscle, fascia and tendon of right little finger at wrist and hand level, initial encounter S66.126A and Laceration of flexor tendon of right hand, initial encounter S66.821A [place] [address] [place] [address] 07/31/2024 Julian Bunn [place] [address] [place] [address] 08/04/2024 Julian Michaelrton [place] [address] [place] [address] 08/09/2024 Julian Oni [place] [address] [place] [address] 08/09/2024 Julian Michaelrton Assessments Encounter Date Diagnosis (ICD Code) Assessment Notes Treatment Notes Treatment Clinical Notes Section Notes 07/31/2024 Laceration of flexor tendon of right hand, initial encounter (ICD-10 - S66.821A) Zone 2 flexor tendon laceration right fifth digit 08/02/2024 Laceration of flexor muscle, fascia and tendon of right little finger at wrist and hand level, initial encounter (ICD-10 - S66.126A) Right small finger zone 2 flexor tendon laceration of FDS and FDP 08/02/2024 Encounter for preprocedural laboratory examination (ICD-10 - Z01.812) Right small finger zone 2 flexor tendon laceration of FDS and FDP 08/03/2024 Laceration of flexor muscle, fascia and tendon of right little finger at wrist and hand level, initial encounter (ICD-10 - S66.126A) 08/16/2024 Laceration of flexor muscle, fascia and tendon of right little finger at wrist and hand level, subsequent encounter (ICD-10 - S66.126D) 2-week status post right small finger FDP and FDS repair 08/16/2024 Encounter for other orthopedic aftercare (ICD-10 - Z47.89) 2-week status post right small finger FDP and FDS repair 08/16/2024 Laceration of flexor muscle, fascia and tendon of right little finger at wrist and hand level, initial encounter (ICD-10 - S66.126A) 08/16/2024 Laceration of flexor tendon of right hand, initial encounter (ICD-10 - S66.821A) 07/31/2024 Other Patient appears to have a zone 2 flexor tendon laceration of the right fifth digit on exam today. We will have him follow-up with Dr. Bunn in our [place] office for definitive management. We will see him back on an as-needed basis. Zone 2 flexor tendon laceration right fifth digit 08/02/2024 Other Operative and nonoperative treatments were reviewed in detail today. I have recommended wound exploration with flexor tendon repair. Based on exam it is unlikely to cut the nerve but we will explore this. I discussed possible nerve repair and nerve recovery if necessary. I discussed recovery after tendon repair. I discussed the immobilization protocol as well as a therapy protocol. He will start physical therapy prior to his first postop visit. I reviewed finger stiffness. I will see him back 2 weeks postoperative for suture removal. A lengthy discussion was had with the patient regarding Surgical vs. non-surgical treatment options. The patient understands the risks, benefits, and alternatives of surgical treatment, as well as expected postoperative recovery. We had an extended discussion concerning the diagnosis and prognosis; the treatment goals and choices (alternatives) the limitations and hazards of care; and the importance of therapy. I discussed the risks and complications of surgery in detail, including but not limited to nerve, vessel, tendon damage, potential need for future surgery, risks of persistent or worsening pain, scar formation, joint stiffness, infection, loss of function, risks of anesthesia, loss of limb, and loss of life. Therapy will be required after surgery to work on ROM and followed by progressive strengthening. The patient acknowledged an understanding and elected to proceed with right small finger zone 2 flexor tendon repair and possible nerve repair. Right small finger zone 2 flexor tendon laceration of FDS and FDP 08/16/2024 Other Patient doing a s expected. At this time we will plan to remove his sutures. Will begin therapy lysing her zone 2 flexor tendon repair protocol. He will require a custom dorsal blocking splint. We will refill his Percocet. Will see him back in 4 weeks to check in and see how he is doing. Patient understands agrees to plan. Imaging reviewed and treatment plan discussed with Dr Bunn, he is in agreement with the plan. 2-week status post right small finger FDP and FDS repair Plan Of Treatment Pending Test Test Name Order Date BMP 08/02/2024 PT/OT - Eval and Treat 08/09/2024 CBC W Diff 08/02/2024 Orthoplast Splint 08/16/2024 Insurance Providers Payer Name Payer Address Payer Phone Subscriber Number Group Number Insured Name Patient Relationship to Insured Coverage Start Date Coverage End Date Medicaid [employer] [place] [address] [address] [place] [address] [id number] WILLOW WILKES Self - patient is the insured Medical (General) History Medical History History ICD Code Asthma/Emphysema/Wheezing: Yes CPAP Machine:: No Healthcare worker: No Latex Allergy: No Have you been in close conta ct with someone who has had MRSA within the last year?: No Have you ever had or presently have MRSA ?: No Have you been seen by a dentist in the l ast year?: No Do you have any dental probl ems i.e. Broken, loose, or chipped teeth, absess, gum disease?: Yes
--- OUTSIDE RECORDS SUMMARY | 2025-07-21 19:38 | XMS_ITS | Encounter Summary ---
Author Organization [facility] Address [id number] [address] [place] [address] Care Team Providers Care Sheep Killer Name Role Phone Blake Perez MD Primary Care Provider [phone] Encounter Details Date Type Department Care Team (Late st Contact Info) Description 10/09/2020 Orders Only [facility] [address] [place] [phone] External, Scanning Provider Social History Tobacco Use Types Packs/Day Years Used Date Smoking Tobacco: Every Day Cigarettes Smokeless Tobacco: Never Comments:pt states too hard to quit Alcohol Use Standard Drinks/Week Comments Yes 0 (1 standard drink = 0.6 oz pur e alcohol) rarely Social Connection and Isolation Panel [NHANES] A nswer Date Recorded In a typical week, how many times do you talk on the phone with family, friends, or neighbors? Three times a week 2020 How often do you get togethe r with friends or relatives? Once a week 2020 How often do you attend chur ch or tenriism services? Never 2020 Do you belong to any clubs o r organizations such as latter day groups, unions, fraternal or athletic groups, or [...] at all 2020 PHQ-2 Answer Date Recorded PHQ-2 Score 0 02/03/2019 [facility] Occupat ional Health - Occupational Stress [...] Recorded Do you need help finding a [facility] [employer] career center and/or a training program? No 2020 Sex and Gender Information Value Date Recorded Sex Assigned at Not on file Legal Sex Male 8:33 PM EDT Gender Identity Not on file Sexual Orientation Not on file documented as of this encounter Plan of Treatment Upcoming Encounters Date Type Department Care Team (Late st Contact Info) Description 06/18/2026 3:30 PM EDT Office Visit [facility] [address] [place] [phone] Blake Perez MD [address] [place] [address] documented as of this encounter Goals [...] Procedure Name Priority Date/Time Associated Diagnosis Comments SARS COV 2 (COVID-19) Routine 10/01/2020 documented in this encounter Results * SARS COV 2 (COVID-19) (10/01/2020) EXTERNAL SARS COV 2 Negative Negative MANUALLY TRANSCRIBED RESULTS NASOPHARYNGEAL 10/01/2020 Narrative MANUALLY TRANSCRIBED RESULTS - 10/01/2020 Done at Urgent Care us Scanning Provider External MICROBIOLOGY - GENERA L ORDERABLES Final Result MANUALLY TRANSCRIBED RESULTS documented in this encounter Visit Diagnoses Not on filedocumented [...] Noted Time PHQ-9 Depression Total Score: 0 06/19/20 20 9:56 AM EDT documented as of this encounter Care Teams Sheep Killer Relationship Specialty Start Date End Date Blake Perez MD [facility] [place] [address] PCP - General Internal Medicine 06/14/25 documented as of this encounter
--- OUTSIDE RECORDS SUMMARY | 2025-07-21 19:38 | XMS_ITS | CCD ---
Author Organization [facility] Care Team Providers Care Side Door Worker Name Role Phone Myra [phone] UNKNOWN Unavailable Unavailable Patten, Jose M R. [...] Unavailable Unavailable Blank, Donald S Unavailable Unavailable [place], Sammie A. Unavailable Unavailable Char, Sammie A. Unavailable Unavailable Shipman, Octavio Unavailable Unavailable [place], Sammie A. Unavailable Unavailable Char, Sammie A. Unavailable Unavailable Shipman, Octavio Unavailable Unavailable Provider, None Unavailable Unavailable Stalter, Vargas Unavailable Unavailable Stalter, Vargas Unavailable Unavailable Stalter, Vargas Unavailable Unavailable Stalter, Vargas Unavailable Unavailable Provider, None Unavailable Unavailable Provider, None Unavailable Unavailable Hitterdal, Neeraj R. Unavailable Unavailable Hitterdal, Neeraj R. Unavailable Unavailable Provider, None Unavailable Unavailable Hitterdal, Neeraj R. Unavailable Unavailable Hitterdal, Neeraj R. Unavailable Unavailable EBRAHEIM, OVI Unavailable Unavailable EBRAHEIM, OVI Unavailable Unavailable SELF, REFERRED Unavailable Unavailable SELF, REFERRED Unavailable Unavailable [place] Unavailable Unavailable EBRAHEIM, OVI Unavailable Unavailable [place] Unavailable Unavailable FIDENCIO RAY Unavailable Unavailable LITTLE GARCIA Admitting Unavailable LITTLE GARCIA Attending Unavailable PLCAIDO MORALES Primary Care Unavailable LITTLE GARCIA Consulting Unavailable JOANNA HEBERT Consulting Unavailabl e EDOUARD, LISA Consulting Unavailable JUSTIN ALEMAN Consulting Unavailable DEFRANCE, PLACIDO Primary Care Unavailable JENNIFER ISAAC Admitting Unavailable PONCHO, JENNIFER Coffey Attending Unavailable JENNIFER ISAAC Consulting Unavailable KELLY THOMAS Consulting Unavailable DEFRANCE, PLACIDO Admitting Unavailable DEFRANCE, PLACIDO Attending Unavailable DEFRANCE, PLACIDO Primary Care Unavailable DEFRANCE, PLACIDO Consulting Unavailable JUSTIN ESCOBAR Attending Unavailable DONALD HINKLE Admitting Unavailable DONALD HINKLE Attending Unavailable No Family, Physician Primary Care Unavailable Placido Morales MD Primary Care Provider [phone] Unavailable Primary Care Provider Unavailabl e Unavailable Primary Care Provider Unavailabl e MANICKAM, KANDAMURUGU Referring Unavailabl e Blake Granger MD Primary Care Provider BLAKE GRANGER Attending Unavailable DEFRANCE, PLACIDO Patel Referring Unavailable BLAKE GRANGER Primary Care Unavailable INEZ HEALY Attending Unavailable DEFRANCE, PLACIDO Patel Referring Unavailable DEFRANCE, PLACIDO Patel Primary Care Unavailable DEFRANCE, PLACIDO Patel Attending Unavailable DEFRANCE, PLACIDO Patel Referring Unavailable DEFRANCE, PLACIDO Patel Primary Care Unavailable MANKNADIAM, KANDAMALEJANDROUGU Attending Unavailabl e UNKNOWN, PROVIDER Primary Care Unavailable HAYES POOL Attending Unavailable HAYES POOL Referring Unavailable DEFRANCE, PLACIDO Patel Primary Care Unavailable BLAKE GRANGER Referring Unavailable BLAKE GRANGER Primary Care Unavailable DEFRANCE, PLACIDO Patel Referring Unavailable DEFRANCE, PLACIDO Patel Primary Care Unavailable DONALD HINKLE Referring Unavailable DEFRANCE, PLACIDO Patel Primary Care Unavailable DEFRANCE, PLACIDO Patel Primary Care Unavailable HAYES POOL Attending Unavailable Medications Current Medications Medication Drug Class(es) Dates Sig (Normalized) Sig (Original) acetaminophen 500 mg oral tablet (1 source) Start: 08-24-2023 End: 09-22-2024 take 2 tablets by mouth every six hours as needed for pain acetaminophen (TYLENOL EXTRA STRENGTH) 500 mg tablet Take 2 tablets (1,000 mg total) by mouth every 6 (six) hours as needed for pain. 30 tablet 08/24/2023 09/22/2024 Discontinued (Alternate therapy) [id number] 200 actuat albuterol 0.09 mg/actuat metered dose inhaler (12 sources) beta2-Adrenergic Agonist Start: 09-22-2024 End: 06-14-2025 take 2 puff(s) by inhalation every six hours as needed for wheezing albuterol (PROVENTIL HFA;VENTOLIN HFA) 90 mcg/actuation inhaler Indications: Mild intermittent asthma with acute exacerbation Inhale 2 puffs every 6 (six) hours as needed for wheezing. 9 g 5 06/14/2025 Active Start: 05-04-2024 End: 09-22-2024 take 2 puff(s) by mouth every six hours as needed for wheezing albuterol (PROVENTIL HFA;VENTOLIN HFA) 90 mcg/actuation inhaler Indications: Mild intermittent asthma with acute exacerbation inhale 2 puffs by mouth every 6 hours as needed for wheezing 9 g 5 05/04/2024 09/22/2024 Discontinued (Reorder) Start: 07-08-2021 End: 06-14-2025 take 3 mL by inhalation every six hours as needed for wheezing albuterol (PROVENTIL,VENTOLIN) 2.5 mg /3 mL (0.083 %) nebulizer solution Indications: Mild intermittent asthma with acute exacerbation Inhale 3 mL (2.5 mg total) by nebulization every 6 (six) hours as needed for wheezing or shortness of breath. 75 mL 12 06/14/2025 Active albuterol (ACCUN EB) 0.63 MG/3ML nebulizer solution Take 3 mLs by nebulization every 6 hours as needed for Wheezing Active Budesonide / formoterol (5 sources) Corticosteroid, beta2-Adrenergic Agonist Start: 06-14-2025 take 2 puff(s) by inhalation in the morning budesonide-formoteroL (SYMBICORT) 160-4.5 mcg/actuation inhaler Indications: Mild intermittent asthma with acute exacerbation Inhale 2 puffs in the morning and 2 puffs before bedtime. 10.2 g 12 06/14/2025 Active Start: 09-22-2024 End: 06-14-2025 take 2 puff(s) by inhalation in the morning budesonide-formoteroL (SYMBICORT) 160-4.5 mcg/actuation inhaler Indications: Mild intermittent asthma with acute exacerbation Inhale 2 puffs in the morning and 2 puffs before bedtime. 10.2 g 12 09/22/2024 06/14/2025 Discontinued (Reorder) Start: 09-22-2024 take 2 puff(s) by in halation in the morning budesonide-formoteroL (SYMBICORT) 160-4.5 mcg/actuation inhaler Indications: Mild intermittent asthma with acute exacerbation Inhale 2 puffs in the morning and 2 puffs before bedtime. 10.2 g 12 09/22/2024 Active celecoxib 200 mg oral capsule (1 source) Nonsteroidal Anti-inflammatory Drug Start: 08-04-2023 End: 09-22-2024 take 1 capsule by mouth in the morning, then take 1 capsule by mouth at bedtime celecoxib (CeleBREX) 200 mg capsule Take 1 capsule (200 mg total) by mouth in the morning and 1 capsule (200 mg total) before bedtime. 60 capsule 2 08/04/2023 09/22/2024 Discontinued (Alternate therapy) ibuprofen 800 mg oral tablet (2 sources) Nonsteroidal Anti-inflammatory Drug Start: 11-28-2023 End: 09-22-2024 take 1 tablet by mouth every eight hours as needed for pain ibuprofen (MOTRIN) 800 mg tablet Take 1 tablet (800 mg total) by mouth every 8 (eight) hours as needed for pain. 30 tablet 11/28/2023 09/22/2024 Discontinued (Alternate therapy) Start: 08-24-2023 End: 09-22-2024 take 1 tablet by mouth every six hours as needed for pain ibuprofen (MOTRIN) 600 mg tablet Take 1 tablet (600 mg total) by mouth every 6 (six) hours as needed for pain. 30 tablet 08/24/2023 09/22/2024 Discontinued (Alternate therapy) Completed/Discontinued Medications Medication Drug Class(es) Dates Sig (Normalized) Sig (Original) famotidine 40 mg oral tablet (3 sources) Histamine-2 Receptor Antagonist Start: 09-22-2024 End: 06-14-2025 take 1 tablet by mouth once daily as needed for gastroesophageal reflux disease famotidine (PEPCID) 40 mg tablet Take 1 tablet (40 mg total) by mouth nightly as needed for heartburn. 30 tablet 5 09/22/2024 06/14/2025 Discontinued Problems Active Problems Problem Classification Problem Date Documented Date Episodic/Chronic Alcohol-related disorders (1 source) Alcohol abuse, uncomplicated; Translations: [ALCOHOL ABUSE UNCOMPLICATED] Onset: 04-09-2020 Chronic Anxiety disorders (1 source) Anxiety disorder, unspecified; Translations: [ANXIETY DISORDER UNSPECIFIED] Onset: 04-09-2020 Chronic Asthma (9 sources) Unspecified asthma, uncomplicated; Translations: [Mild intermittent asthma] Onset: 04-09-2017 09-22-2024 Chronic Diseases of white blood cells (4 sources) Eosinophil count raised; Translations: [Eosinophilia] Onset: 03-19-2022 03-19-2022 Chronic Epilepsy; convulsions (1 source) Other seizures; [...] FOR OTH VIRAL DZ] Onset: 05-27-2020 Episodic Malaise and fatigue (1 source) Fatigue Onset: 06-14-2025 Episodic Nausea and vomiting (1 source) Nausea; Translations: [NAUSEA] Onset: 03-26-2020 Episodic Other endocrine disorders (1 source) Hypotestosteronism; Translations: [Testicular hypofunction] 06-18-2025 Chronic Other nervous system disorders (1 source) Other acute postprocedural pain; Translations: [Other acute postprocedural pain] Onset: 08-03-2024 Episodic Other non-traumatic joint disorders (1 source) Pain in elbow; Translations: [Pain in left elbow] 12-14-2024 Episodic Residual codes; unclassified (3 sources) Family history of seizure disorder; Translations: [Family history of other specified conditions] 02-13-2025 Episodic Residual codes; unclassified (2 sources) Family history of other specified conditions; Translations: [Family history of other specified conditions] Onset: 04-04-2025 Episodic Substance-related disorders (2 sources) Nicotine dependence, cigarettes, uncomplicated; Translations: [NICOTINE DEPENDENCE, CIGARETTES, UNCOMPLICATED] Onset: 04-09-2017 Chronic Superficial injury; contusion (1 source) Contusion of left front wall of thorax, initial encounter; Translations: [CONTUS LT FRONT WALL THORAX INITIAL] Onset: 04-09-2020 Episodic Unclassified (2 sources) Unknown / UNK(Unknown) Onset: 04-09-2017 Unclassified (1 source) Annual Exam Onset: 06-14-2025 Unclassified (1 source) PAVEL Onset: 09-22-2024 Past or Other Problems Problem Classification Problem Date Documented Da te Episodic/Chronic Abdominal pain (12 sources) Upper abdominal pain, unspecified; Translations: [Right lower quadrant pain] Onset: 03-24-2020 Resolved: 07-08-2021 07-08-2021 Episodic Conditions associated with dizziness or vertigo (1 source) Dizziness and giddiness; Translations: [Dizziness and giddiness] Onset: 06-22-2024 Episodic Contraceptive and procreative management (4 sources) Patient encounter status; Translations: [Encounter for other general counseling and advice on contraception] Onset: 07-31-2019 07-31-2019 Episodic E Codes: Fall (2 sources) Fall; Translations: [Unspecified fall, initial encounter] Onset: 12-14-2024 12-14-2024 Episodic Mood disorders (4 sources) Mood disorders Onset: 09-22-2024 Resolved: 06-14-2025 09-22-2024 Nonspecific chest pain (6 sources) Chest pain, unspecified; Translations: [Chest pain] Onset: 04-05-2020 Episodic Open wounds of extremities (8 sources) Unspecified open wound of left hand, initial encounter; Translations: [Laceration of hand] Onset: 04-09-2017 Resolved: 03-19-2022 03-19-2022 Episodic Other connective tissue disease (1 source) Pain in upper limb Onset: 12-14-2024 Episodic Other lower respiratory disease (4 sources) Lung mass; Translations: [Other nonspecific abnormal finding of lung field] Onset: 03-19-2022 03-19-2022 Episodic Other lower respiratory disease (4 sources) Hemoptysis; Translations: [Hemoptysis] Onset: 05-06-2023 05-06-2023 Episodic Other non-traumatic joint disorders (3 sources) Pain in right knee; Translations: [Pain in joint, lower leg] Onset: 09-22-2024 09-22-2024 Episodic Other non-traumatic joint disorders (1 source) Pain in left elbow; Translations: [Pain in left elbow] Onset: 12-14-2024 Episodic Respiratory failure; insufficiency; arrest (adult) (4 sources) Acute respiratory failure; Translations: [Acute respiratory failure, unspecified whether with hypoxia or hypercapnia] Onset: 2020 Resolved: 03-19-2022 03-19-2022 Episodic Screening and history of mental health and substance abuse codes (4 sources) Tobacco use and exposure - finding; Translations: [Personal history of nicotine dependence] Onset: 03-19-2022 03-19-2022 Episodic Unclassified (3 sources) Onset: 12-14-2024 Resolved: 06-14-2025 12-14-2024 Results Test Name Value Interpretation Reference Range Facility CBC WITH AUTO DIFFERENTIALon 06-16-2025 BASOPHILS ABSOLUTE COUNT (10*3/UL) BY AUTOMATED COUNT 0.0 10*3/uL Normal 0.0-0.2 [facility] Comment on above: Performed By: #### C BCA CMP, 3040-3, 05079-6, 90028-7 #### [facility] ([id number]) [address] [place] [address] 84200 BASOPHILS RELATIVE PERCENT BY AUTOMATED COUNT 0.6 % Normal [facility] Comment on above: Performed By: #### C BCA CMP, 3040-3, 50145-3, 23027-4 #### [facility] ([id number]) [address] [place] [address] 23108 CELLAVISION DIFFERENTIAL TYPE AUTOMATED DIFFERENTIAL Normal [facility] Comment on above: Performed By: #### C BCA, CMP, 3040-3, 25504-4, 66527-8 #### [facility] ([id number]) [address] [place] [address] 02723 Eosinophils (Bld) [#/Vol] 0.4 10*3/uL Normal 0.0-0.4 [facility] Comment on above: Performed By: #### C BCA CMP, 3040-3, 11402-8, 91232-8 #### [facility] ([id number]) [address] [place] [address] 17227 EOSINOPHILS RELATIVE PERCENT BY AUTOMATED COUNT 5.6 % Normal [facility] Comment on above: Performed By: #### C BCA, CMP, 3040-3, 56426-0, 95135-8 #### [facility] ([id number]) [address] [place] [address] 98504 Erythrocyte distribution width (RBC) [Ratio] 13.2 % Normal 11.5-15 [facility] Comment on above: Performed By: #### C BCA, CMP, 3040-3, 58187-8, 70188-9 #### [facility] ([id number]) [address] [place] [address] 39186 Hematocrit (Bld) [Volume fraction] 46.3 % Normal 39-50 [facility] Comment on above: Performed By: #### C BCA, CMP, 3040-3, 52926-9, 09608-0 #### [facility] ([id number]) [address] [place] [address] 38019 Hemoglobin (Bld) [Mass/Vol] 15.6 g/dL Normal 13-17 [facility] Comment on above: Performed By: #### C BCA, CMP, 3040-3, 03469-9, 15455-4 #### [facility] ([id number]) [address] [place] [address] 53161 LYMPHOCYTES ABSOLUTE COUNT (10*3/UL) BY AUTOMATED COUNT 1.6 10*3/uL Normal 1.0-3.5 [facility] Comment on above: Performed By: #### C BCA, CMP, 3040-3, 10479-8, 10168-9 #### [facility] ([id number]) [address] [place] [address] 07811 LYMPHOCYTES RELATIVE PERCENT BY AUTOMATED COUNT 24.5 % Normal [facility] Comment on above: Performed By: #### C BCA, CMP, 3040-3, 85095-6, 46109-8 #### [facility] ([id number]) [address] [place] [address] 95788 MCH (RBC) [Entitic mass] 30.1 pg Normal 27-34 [facility] Comment on above: Performed By: #### C BCA, CMP, 3040-3, 24812-7, 00436-5 #### [facility] ([id number]) [address] [place] [address] 19173 MCHC (RBC) [Mass/Vol] 33.7 g/dL Normal 32-36 [facility] Comment on above: Performed By: #### Tamara BCA, CMP, 3040-3, 33285-8, 49526-5 #### [facility] ([id number]) [address] [place] [address] 76260 MCV (RBC) [Entitic vol] 89 fL Normal 80-100 [facility] Comment on above: Performed By: #### C BCA, CMP, 3040-3, 74992-5, 45568-2 #### [facility] ([id number]) [address] [place] [address] 46845 MONOCYTES ABSOLUTE COUNT (10*3/UL) BY AUTOMATED COUNT 0.6 10*3/uL Normal 0.0-0.9 [facility] Comment on above: Performed By: #### C BCA, CMP, 3040-3, 31800-3, 52310-2 #### [facility] ([id number]) [address] [place] [address] 36980 MONOCYTES RELATIVE PERCENT BY AUTOMATED COUNT 9.0 % Normal [facility] Comment on above: Performed By: #### C BCA, CMP, 3040-3, 24177-2, 31884-4 #### [facility] ([id number]) [address] [place] [address] 35862 NEUTROPHILS ABSOLUTE COUNT BY AUTOMATED COUNT 3.9 10*3/uL Normal 1.5-6.6 [facility] Comment on above: Performed By: #### C BCA, CMP, 3040-3, 91853-2, 67493-5 #### [facility] ([id number]) [address] [place] [address] 46464 NEUTROPHILS RELATIVE PERCENT BY AUTOMATED COUNT 60.3 % Normal [facility] Comment on above: Performed By: #### C BCA, CMP, 3040-3, 40208-2, 44400-5 #### [facility] ([id number]) [address] [place] [address] 36303 Platelet mean volume (Bld) [Entitic vol] 8.4 fL Normal 7-12 [facility] Comment on above: Performed By: #### C BCA, CMP, 3040-3, 76221-9, 05646-3 #### [facility] ([id number]) [address] [place] [address] 62979 Platelets (Bld) [#/Vol] 267 10*3/uL Normal 150-450 [facility] Comment on above: Performed By: #### Tamara BCA, CMP, 3040-3, 62180-0, 04024-7 #### [facility] ([id number]) [address] [place] [address] 43411 RBC COUNT 5.18 X10E12/L Normal 4.1-5.7 [facility] Comment on above: Performed By: #### C BCA, CMP, 3040-3, 47037-2, 08116-2 #### [facility] ([id number]) [address] [place] [address] 56820 WBC (Bld) [#/Vol] 6.4 10*3/uL Normal 4-11 [facility] Comment on above: Performed By: #### C BCA, CMP, 3040-3, 85095-6, 76339-8 #### [facility] ([id number]) [address] [place] [address] 48178 COMPREHENSIVE METABOLIC PANE Eladio 06-16-2025 Albumin [Mass/Vol] 4.9 g/dL Normal 3.2-5.3 [facility] Comment on above: Performed By: #### C BCA, CMP, 3040-3, 49330-3, 41166-5 #### [facility] ([id number]) [address] [place] [address] 43242 ALP [Catalytic activity/Vol] 56 U/L Normal 39-130 [facility] Comment on above: Performed By: #### C BCA, CMP, 3040-3, 69153-9, 92277-4 #### [facility] ([id number]) [address] [place] [address] 84791 ALT [Catalytic activity/Vol] 24 U/L Normal <=40 [facility] Comment on above: Performed By: #### C BCA, CMP, 3040-3, 44139-3, 56125-8 #### [facility] ([id number]) [address] [place] [address] 02260 Anion gap [Moles/Vol] 8 mmol/L Normal 5-15 [facility] Comment on above: Performed By: #### C BCA, CMP, 3040-3, 70467-0, 32986-2 #### [facility] ([id number]) [address] [place] [address] 58236 AST [Catalytic activity/Vol] 20 U/L Normal <=41 [facility] Comment on above: Performed By: #### C BCA, CMP, 3040-3, 45012-8, 97833-0 #### [facility] ([id number]) [address] [place] [address] 72174 Bilirubin [Mass/Vol] 0.8 mg/dL Normal 0.3-1.2 [facility] Comment on above: Performed By: #### C BCA, CMP, 3040-3, 37639-4, 57220-6 #### [facility] ([id number]) [address] [place] [address] 34367 Calcium [Mass/Vol] 10.0 mg/dL Normal 8.5-10.5 [facility] Comment on above: Performed By: #### C BCA, CMP, 3040-3, 40700-2, 97475-0 #### [facility] ([id number]) [address] [place] [address] 58890 Chloride [Moles/Vol] 101 mmol/L Normal 98-109 [facility] Comment on above: Performed By: #### C BCA, CMP, 3040-3, 58168-0, 30044-6 #### [facility] ([id number]) [address] [place] [address] 85609 CO2 [Moles/Vol] 29 mmol/L Normal 22-32 [facility] Comment on above: Performed By: #### C BCA, CMP, 3040-3, 31172-7, 08242-4 #### [facility] ([id number]) [address] [place] [address] 86906 Creatinine [Mass/Vol] 0.77 mg/dL Normal 0.60-1.30 [facility] Comment on above: Result Comment: METH OD TRACEABLE TO IDMS STANDARD Performed By: #### C BCA, CMP, 3040-3, 19353-7, 50453-9 #### [facility] ([id number]) [address] [place] [address] 45590 EGFR (CKD-EPI) NON-RACE DEPENDENT >^90 Normal >=60 [facility] Comment on above: Result Comment: Repo rted eGFR is based on the CKD-EPI 2020 equation that does not use a race coefficient. Performed By: #### C CHARLY, CMP, 3040-3, 99801-2, 38205-8 #### [facility] ([id number]) [address] [place] [address] 38790 Glucose [Mass/Vol] 86 mg/dL Normal 65-99 [facility] Comment on above: Performed By: #### C BCA, CMP, 3040-3, 58093-0, 59277-7 #### [facility] ([id number]) [address] [place] [address] 22669 Potassium [Moles/Vol] 4.2 mmol/L Normal 3.5-5.0 [facility] Comment on above: Performed By: #### C BCA, CMP, 3040-3, 76478-2, 83584-2 #### [facility] ([id number]) [address] [place] [address] 86837 Protein [Mass/Vol] 8.0 g/dL Normal 6.0-8.0 [facility] Comment on above: Performed By: #### C BCA, CMP, 3040-3, 50676-7, 11717-5 #### [facility] ([id number]) [address] [place] [address] 78664 Sodium [Moles/Vol] 138 mmol/L Normal 134-146 [facility] Comment on above: Performed By: #### C BCA, CMP, 3040-3, 21376-2, 79464-0 #### [facility] ([id number]) [address] [place] [address] 98285 Urea nitrogen [Mass/Vol] 16 mg/dL Normal 5-23 [facility] Comment on above: Performed By: #### C BCA, CMP, 3040-3, 36080-8, 59790-7 #### [facility] ([id number]) [address] [place] [address] 66563 LIPID PROFILEon 06-16-2025 Cholesterol [Mass/Vol] 188 mg/dL Normal 150-200 [facility] Comment on above: Performed By: #### C BCA, CMP, 3040-3, 70196-9, 53985-6 #### [facility] ([id number]) [address] [place] [address] 08078 Cholesterol in HDL [Mass/Vol] 43 mg/dL Normal >39 [facility] Comment on above: Result Comment: HDL <40 mg/dL - High Risk HDL > or = 40mg/dL- Desirable HDL >60 mg/dL - Negative Risk Performed By: #### C BCA, CMP, 3040-3, 87402-2, 23963-1 #### [facility] ([id number]) [address] [place] [address] 71846 Cholesterol in LDL [Mass/Vol] 119 mg/dL Normal <130 [facility] Comment on above: Result Comment: LDL <100 mg/dL - Desirable LDL >160 mg/dL - High Risk Performed By: #### C BCA, CMP, 3040-3, 84228-8, 97256-5 #### [facility] ([id number]) [address] [place] [address] 08721 CHOLESTEROL:HDL 4.4 Normal 1.0-5.0 [facility] Comment on above: Performed By: #### C BCA, CMP, 3040-3, 07505-8, 71529-8 #### [facility] ([id number]) [address] [place] [address] 61512 Triglyceride [Mass/Vol] 130 mg/dL Normal 27-150 [facility] Comment on above: Performed By: #### C BCA, CMP, 3040-3, 74484-9, 44070-2 #### [facility] ([id number]) [address] [place] [address] 76004 VERY LOW LIPOPROTEIN 26 mg/dL Normal 0-30 [facility] Comment on above: Performed By: #### C BCA, CMP, 3040-3, 60488-8, 90280-6 #### [facility] ([id number]) [address] [place] [address] 55351 TESTOSTERONEon 06-16-2025 TESTOSTERONE 2.25 ng/mL Normal 1.68-7.46 [facility] Comment on above: Performed By: #### C BCA, CMP, 3040-3, 35924-7, 97165-9 #### [facility] ([id number]) [address] [place] [address] THYROID PROFILE INCLUDES TSH FT4on 06-16-2025 Free T4 [Mass/Vol] 0.84 ng/dL Normal 0.61-1.60 [facility] Comment on above: Performed By: #### C BCA, CMP, 3040-3, 75483-3, 69615-1 #### [facility] ([id number]) [address] [place] [address] 78820 TSH 1.91 uIU/mL Normal 0.49-4.67 [facility] Comment on above: Performed By: #### C BCA, CMP, 3040-3, 81406-9, 84075-0 #### [facility] ([id number]) [address] [place] [address]21 Forwarded to:on 04-05-2025 Forwarded to: TO [facility] FULL GENOME SEQUENCING Normal [facility] Comment on above: Performed By: #### F ORWD #### Where Was it Filmed [facility] [place] [address] Comic Book Designer: Samson Novak MD [facility] Lab Reporton 04-04-2025 Report Normal [facility] Comment on above: Performed By: #### G SPAR #### Performed at [facility], [address] [place] [address] 29398 XR KNEE RT 3 VWSon 4 XR KNEE RT 3 VWS XR KNEE RT 3 VWS CLINICAL INFORMATION: Acute pain of right knee TECHNIQUE: XR KNEE RT 3 VWS 3 views the right knee were obtained. There is no acute osseous abnormality no fractures seen. No malalignment. IMPRESSION: No acute findings Finalized by Tam Vega MD on 09/22/2024 2:05 PM Normal [facility] OPERATIVE REPORTon 4 OPERATIVE REPORT [facility] [address] [place] [address] OPERATIVE REPORT PATIENT NAME:WILLOW WILKES :1990 MED REC NO:[id number] ROOM:[facility] OR ([facility]) [facility] ACCOUNT NO:[id number] ADMIT DATE:08/03/2024 PROVIDER:Donald Hinkle DO DATE OF [...] the flexor digitorum superficialis in zone 2. RN TELEMETRY: Pedro De La Fuente PA-C, assisted with [...] followup visit. DONALD HINKLE DO MTE/AQS Doc#: [id number] Normal [facility] BASIC METABOLIC PANLon 08-02 Anion gap [Moles/Vol] 8 mmol/L Normal 5-15 [facility] Comment on above: Performed By: #### C BCA, CMP, 3040-3, 35143-9, 41748-9 #### [facility] ([id number]) [address] [place] [address] 77426 Calcium [Mass/Vol] 9.8 mg/dL Normal 8.5-10.5 [facility] Comment on above: Performed By: #### C BCA, CMP, 3040-3, 11213-3, 91513-9 #### [facility] ([id number]) [address] [place] [address] 92705 Chloride [Moles/Vol] 99 mmol/L Normal 98-109 [facility] Comment on above: Performed By: #### C BCA, CMP, 3040-3, 41028-0, 19850-6 #### [facility] ([id number]) [address] [place] [address] 44417 CO2 [Moles/Vol] 28 mmol/L Normal 22-32 [facility] Comment on above: Performed By: #### C BCA, CMP, 3040-3, 16154-7, 54586-9 #### [facility] ([id number]) [address] [place] [address] 47593 Creatinine [Mass/Vol] 0.80 mg/dL Normal 0.60-1.30 [facility] Comment on above: Result Comment: METH OD TRACEABLE TO IDMS STANDARD Performed By: #### C BCA, CMP, 3040-3, 89828-0, 37726-8 #### [facility] ([id number]) [address] [place] [address] 70771 eGFR (CKD-EPI) NON-RACE DEPENDENT >90 Normal >59 [facility] Comment on above: Result Comment: Reported eGFR is based on the CKD-EPI 2020 equation that does not use a race coefficient. Performed By: #### C BCA, CMP, 3040-3, 91026-1, 71890-5 #### [facility] ([id number]) [address] [place] [address] 26124 Glucose [Mass/Vol] 94 mg/dL Normal 65-99 [facility] Comment on above: Performed By: #### C BCA, CMP, 3040-3, 31573-0, 83201-1 #### [facility] ([id number]) [address] [place] [address] 71934 Potassium [Moles/Vol] 4.0 mmol/L Normal 3.5-5.0 [facility] Comment on above: Performed By: #### C BCA, CMP, 3040-3, 94489-4, 62282-6 #### [facility] ([id number]) [address] [place] [address] 66297 Sodium [Moles/Vol] 135 mmol/L Normal 134-146 [facility] Comment on above: Performed By: #### C CHARLY, [facility], 3040-3, 33301-8, 69978-2 #### [facility] ([id number]) [address] [place] [address] 72797 Urea nitrogen [Mass/Vol] 17 mg/dL Normal 5-23 [facility] Comment on above: Performed By: #### C BCA, CMP, 3040-3, 20416-6, 27258-5 #### [facility] ([id number]) [address] [place] [address] 12911 CBC AND AUTO DIFFon 08-02-20 24 ABSOLUTE BASOPHIL 0.1 X10E9/L Normal 0.0-0.2 [facility] Comment on above: Performed By: #### Tamara BCA, BMP #### [facility] ([id number]) [address], [address] [place] [address] ABSOLUTE NEUTROPHIL 3.9 X10E9/L Normal 1.5-6.6 [facility] Comment on above: Performed By: #### Tamara BCA, BMP #### [facility] ([id number]) [address], [address] [place] [address] Basophils/100 WBC (Bld) 1.4 % Normal [facility] Comment on above: Performed By: #### Tamara PARKS, BMP #### [facility] ([id number]) [address] [place] [address] Eosinophils (Bld) [#/Vol] 0.8 10*3/uL High 0.0-0.4 [facility] Comment on above: Performed By: #### C CHARLY, BMP #### [facility] ([id number]) [address] [place] [address] Eosinophils/100 WBC (Bld) 10.9 % Normal [facility] Comment on above: Performed By: #### Tamara PARKS, BMP #### [facility] ([id number]) [address], [address] [place] [address] Erythrocyte distribution width (RBC) [Ratio] 12.9 % Normal 11.5-15.0 [facility] Comment on above: Performed By: #### Tamara PARKS, BMP #### [facility] ([id number]) [address] [place] [address] Hematocrit (Bld) [Volume fraction] 45.2 % Normal 39-49 [facility] Comment on above: Performed By: #### Tamara PARKS, BMP #### [facility] ([id number]) [address] [place] [address] Hemoglobin (Bld) [Mass/Vol] 15.2 g/dL Normal 13.0-17.0 [facility] Comment on above: Performed By: #### Tamara PARKS, BMP #### [facility] ([id number]) [address] [place] [address] Lymphocytes (Bld) [#/Vol] 1.7 10*3/uL Normal 1.0-3.5 [facility] Comment on above: Performed By: #### C BCA, BMP #### [facility] ([id number]) [address], [address] [place] [address] Lymphocytes/100 WBC (Bld) 24.7 % Normal [facility] Comment on above: Performed By: #### C BCA, BMP #### [facility] ([id number]) [address], [address] [place] [address] MCH (RBC) [Entitic mass] 31.0 pg Normal 27-34 [facility] Comment on above: Performed By: #### C BCA, BMP #### [facility] ([id number]) [address], [address] [place] [address] MCHC (RBC) [Mass/Vol] 33.7 g/dL Normal 32-36 [facility] Comment on above: Performed By: #### C BCA, BMP #### [facility] ([id number]) [address], [address] [place] [address] MCV (RBC) [Entitic vol] 92 fL Normal 80-100 [facility] Comment on above: Performed By: #### C BCA, BMP #### [facility] ([id number]) [address], [address] [place] [address] Monocytes (Bld) [#/Vol] 0.6 10*3/uL Normal 0-0.9 [facility] Comment on above: Performed By: #### C BCA, BMP #### [facility] ([id number]) [address], [address] [place] [address] Monocytes/100 WBC (Bld) 7.9 % Normal [facility] Comment on above: Performed By: #### C BCA, BMP #### [facility] ([id number]) [address], [address] [place] [address] Neutrophils/100 WBC (Bld) 55.1 % Normal [facility] Comment on above: Performed By: #### C CHARLY, BMP #### [facility] ([id number]) [address] [address] Platelet mean volume (Bld) [Entitic vol] 8.4 fL Normal 7-12 [facility] Comment on above: Performed By: #### C CHARLY, BMP #### [facility] ([id number]) [address] [address] Platelets (Bld) [#/Vol] 272 10*3/uL Normal 150-450 [facility] Comment on above: Performed By: #### C CHARLY, BMP #### [facility] ([id number]) [address] [address] [place] [address] RBC COUNT 4.91 X10E12/L Normal 4.10-5.70 [facility] Comment on above: Performed By: #### Tamara PARKS, BMP #### [facility] ([id number]) [address] [address] WBC (Bld) [#/Vol] 7.0 10*3/uL Normal 4.0-11.0 [facility] Comment on above: Performed By: #### C CHARLY, BMP #### [facility] ([id number]) [address] [address] CBC AND AUTO DIFFon 06-22-20 24 ABSOLUTE BASOPHIL 0.1 X10E9/L Normal 0.0-0.2 [facility] Comment on above: Performed By: #### Tamara PARKS, CMP, 3040-3, 81908-2, 30096-3 #### [facility] ([id number]) [address] [place] [address], [place] [address] ABSOLUTE NEUTROPHIL 2.9 X10E9/L Normal 1.5-6.6 [facility] Comment on above: Performed By: #### C BCA, CMP, 3040-3, 63853-9, 40311-2 #### [facility] ([id number]) [address] [place] [address]454 Basophils/100 WBC (Bld) 0.7 % Normal [facility] Comment on above: Performed By: #### C BCA, CMP, 3040-3, 16762-6, 63391-9 #### [facility] ([id number]) [address] [place] [address] Eosinophils (Bld) [#/Vol] 1.0 10*3/uL High 0.0-0.4 [facility] Comment on above: Performed By: #### C BCA, CMP, 3040-3, 58393-5, 47401-1 #### [facility] ([id number]) [address] [place] [address] Eosinophils/100 WBC (Bld) 12.1 % Normal [facility] Comment on above: Performed By: #### C BCA, CMP, 3040-3, 14804-7, 56358-7 #### [facility] ([id number]) [address] [place] [address] Erythrocyte distribution width (RBC) [Ratio] 13.2 % Normal 11.5-15.0 [facility] Comment on above: Performed By: #### C BCA, CMP, 3040-3, 15924-9, 19765-0 #### [facility] ([id number]) [address] [place] [address]61 Hematocrit (Bld) [Volume fraction] 42.3 % Normal 39-49 [facility] Comment on above: Performed By: #### C BCA, CMP, 3040-3, 02141-6, 09607-3 #### [facility] ([id number]) [address] [place] [address] 71395 Hemoglobin (Bld) [Mass/Vol] 14.5 g/dL Normal 13.0-17.0 [facility] Comment on above: Performed By: #### C BCA, CMP, 3040-3, 87619-5, 34346-7 #### [facility] ([id number]) [address] [place] [address] 89096 Lymphocytes (Bld) [#/Vol] 3.1 10*3/uL Normal 1.0-3.5 [facility] Comment on above: Performed By: #### C CHARLY, CMP, 3040-3, 78043-7, 87755-6 #### [facility] ([id number]) [address] [place] [address] 90341 Lymphocytes/100 WBC (Bld) 39.4 % Normal [facility] Comment on above: Performed By: #### C BCA, CMP, 3040-3, 43521-2, 72063-1 #### [facility] ([id number]) [address] [place] [address] 17233 MCH (RBC) [Entitic mass] 31.1 pg Normal 27-34 [facility] Comment on above: Performed By: #### C BCA, CMP, 3040-3, 40641-8, 33324-8 #### [facility] ([id number]) [address] [place] [address] 92862 MCHC (RBC) [Mass/Vol] 34.1 g/dL Normal 32-36 [facility] Comment on above: Performed By: #### C BCA, CMP, 3040-3, 28364-7, 20186-2 #### [facility] ([id number]) [address] [place] [address] 00266 MCV (RBC) [Entitic vol] 91 fL Normal 80-100 [facility] Comment on above: Performed By: #### C BCA, CMP, 3040-3, 62702-9, 60350-1 #### [facility] ([id number]) [address] [place] [address]39 Monocytes (Bld) [#/Vol] 0.9 10*3/uL Normal 0-0.9 [facility] Comment on above: Performed By: #### C BCA, CMP, 3040-3, 03064-6, 02094-3 #### [facility] ([id number]) [address] [place] [address] 20022 Monocytes/100 WBC (Bld) 11.3 % Normal [facility] Comment on above: Performed By: #### C BCA, CMP, 3040-3, 89017-7, 73851-6 #### [facility] ([id number]) [address] [place] [address] 22351 Neutrophils/100 WBC (Bld) 36.5 % Normal [facility] Comment on above: Performed By: #### C BCA, CMP, 3040-3, 84198-2, 51980-1 #### [facility] ([id number]) [address] [place] [address] 56254 Platelet mean volume (Bld) [Entitic vol] 8.2 fL Normal 7-12 [facility] Comment on above: Performed By: #### Tamara BCA, CMP, 3040-3, 00820-3, 99160-4 #### [facility] ([id number]) [address] [place] [address] 41710 Platelets (Bld) [#/Vol] 285 10*3/uL Normal 150-450 [facility] Comment on above: Performed By: #### C BCA, CMP, 3040-3, 57759-8, 96927-1 #### [facility] ([id number]) [address] [place] [address] 55547 RBC COUNT 4.65 X10E12/L Normal 4.10-5.70 [facility] Comment on above: Performed By: #### C BCA, CMP, 3040-3, 32150-0, 88244-3 #### [facility] ([id number]) [address] [place] [address] 74557 WBC (Bld) [#/Vol] 7.9 10*3/uL Normal 4.0-11.0 [facility] Comment on above: Performed By: #### C BCA, CMP, 3040-3, 36701-0, 99439-3 #### [facility] ([id number]) [address] [place] [address] 39727 COMPREHENSIVE METABOLIC PANE Eladio 06-22-2024 Albumin [Mass/Vol] 4.5 g/dL Normal 3.2-5.3 [facility] Comment on above: Performed By: #### C BCA, CMP, 3040-3, 62543-1, 35226-7 #### [facility] ([id number]) [address] [place] [address] 10816 ALP [Catalytic activity/Vol] 62 U/L Normal 39-130 [facility] Comment on above: Performed By: #### C BCA, CMP, 3040-3, 68987-8, 30818-2 #### [facility] ([id number]) [address] [place] [address] 36902 ALT [Catalytic activity/Vol] 30 U/L Normal 0-40 [facility] Comment on above: Performed By: #### C BCA, CMP, 3040-3, 00175-8, 85371-4 #### [facility] ([id number]) [address] [place] [address] 37587 Anion gap [Moles/Vol] 9 mmol/L Normal 5-15 [facility] Comment on above: Performed By: #### C BCA, CMP, 3040-3, 68224-4, 45335-7 #### [facility] ([id number]) [address] [place] [address] 99397 AST [Catalytic activity/Vol] 28 U/L Normal 0-41 [facility] Comment on above: Performed By: #### C BCA, CMP, 3040-3, 73883-7, 77349-9 #### [facility] ([id number]) [address] [place] [address] 24450 Bilirubin [Mass/Vol] 0.7 mg/dL Normal 0.3-1.2 [facility] Comment on above: Performed By: #### C BCA, CMP, 3040-3, 33356-6, 02854-8 #### [facility] ([id number]) [address] [place] [address] 03583 Calcium [Mass/Vol] 9.3 mg/dL Normal 8.5-10.5 [facility] Comment on above: Performed By: #### C BCA, CMP, 3040-3, 65447-0, 60475-9 #### [facility] ([id number]) [address] [place] [address] Chloride [Moles/Vol] 101 mmol/L Normal 98-109 [facility] Comment on above: Performed By: #### C BCA, CMP, 3040-3, 50617-9, 16322-3 #### [facility] ([id number]) [address] [place] [address] 73881 CO2 [Moles/Vol] 23 mmol/L Normal 22-32 [facility] Comment on above: Performed By: #### C BCA, CMP, 3040-3, 47156-5, 70712-0 #### [facility] ([id number]) [address] [place] [address] 93282 Creatinine [Mass/Vol] 0.80 mg/dL Normal 0.70-1.20 [facility] Comment on above: Result Comment: METH OD TRACEABLE TO IDMS STANDARD Performed By: #### C BCA, CMP, 3040-3, 45223-4, 39820-3 #### [facility] ([id number]) [address] [place] [address]17 eGFR (CKD-EPI) NON-RACE DEPENDENT >90 Normal >59 [facility] Comment on above: Result Comment: Reported eGFR is based on the CKD-EPI 2020 equation that does not use a race coefficient. Performed By: #### C BCA, CMP, 3040-3, 06353-3, 62017-6 #### [facility] ([id number]) [address] [place] [address] 44655 Glucose [Mass/Vol] 103 mg/dL High 65-99 [facility] Comment on above: Performed By: #### C BCA, CMP, 3040-3, 68324-2, 84403-9 #### [facility] ([id number]) [address] [place] [address] 95830 Potassium [Moles/Vol] 3.8 mmol/L Normal 3.5-5.0 [facility] Comment on above: Performed By: #### C BCA, CMP, 3040-3, 38911-6, 76411-6 #### [facility] ([id number]) [address] [place] [address] 95278 Protein [Mass/Vol] 7.7 g/dL Normal 6.0-8.0 [facility] Comment on above: Performed By: #### C BCA, CMP, 3040-3, 36645-3, 43463-6 #### [facility] ([id number]) [address] [place] [address] 12488 Sodium [Moles/Vol] 133 mmol/L Low 134-146 [facility] Comment on above: Performed By: #### C BCA, CMP, 3040-3, 30709-3, 88377-6 #### [facility] ([id number]) [address] [place] [address] 37009 Urea nitrogen [Mass/Vol] 22 mg/dL Normal 5-23 [facility] Comment on above: Performed By: #### C BCA, CMP, 3040-3, 23564-1, 73640-2 #### [facility] ([id number]) [address] [place] [address] 32936 LIPASEon 06-22-2024 Lipase [Catalytic activity/Vol] 30 U/L Normal 17-40 [facility] Comment on above: Performed By: #### C BCA, CMP, 3040-3, 92976-2, 70662-4 #### [facility] ([id number]) [address] [place] [address] 29033 Natriuretic peptide B [Mass/ Vol]on 06-22-2024 BRN NATRIURETIC PEP <5 Normal <100.0 [facility] Comment on above: Performed By: #### C BCA, CMP, 3040-3, 05226-2, 97950-5 #### [facility] ([id number]) [address] [place] [address] 20729 SARS/FLU A+B/RSV by NAAT/Mol ecularon 06-22-2024 SARS/FLU [...] operators who are performing tests using either [employer] DX or [employer] systems and is limited to laboratories that [...] specimen repeat. Fact Sheet for Healthcare Providers: https://www.fda.gov/media/96672 2/download Fact Sheet for Patients: https://www.fda.gov/media/39930 6/download Normal [facility] Comment on above: Performed By: #### C OVFLR #### [facility] ([id number]) [address] [place] [address] 87638 Troponin I.cardiac High sens itivity method [Mass/Vol]on 06-22-2024 1 HOUR TROP I, HIGH SENSITIVITY 2 ng/L Normal <21 [facility] Comment on above: Performed By: #### 8 9579-7 #### [facility] ([id number]) [address] [place] [address] 14934 TROPONIN I, HIGH SENSITIVITY <2 Normal <21 [facility] Comment on above: Performed By: #### C BCA, CMP, 3040-3, 03005-9, 83070-1 #### [facility] ([id number]) [address] [place] [address] 92092 VENOUS BLOOD GASon 4 IMMANUEL'S TEST Normal [facility] Comment on above: Performed By: #### V BG #### [facility] ([id number]) [address] [place] [address] 73674 Base excess Calc (Bld) [Moles/Vol] 2.0 mmol/L Normal 0.0-2.0 [facility] Comment on above: Performed By: #### V BG #### [facility] ([id number]) [address] [place] [address] 16370 Body temperature 98.6 [degF] Normal 37.0 [facility] Comment on above: Performed By: #### V BG #### [facility] ([id number]) [address] [place] [address] 37495 HCO3 (Bld) [Moles/Vol] 26.0 mmol/L High 20.0-24.0 [facility] Comment on above: Performed By: #### V BG #### [facility] ([id number]) [address] [place] [address] 37557 Oxygen saturation in Blood 89.0 % Normal >80.0 [facility] Comment on above: Performed By: #### V BG #### [facility] ([id number]) [address] [place] [address] 04493 OXYGEN SOURCE RoomAir Normal [facility] Comment on above: Performed By: #### V BG #### [facility] ([id number]) [address] [place] [address] 27290 PCO2, VENOUS 39.5 MMHG Normal 35-50 [facility] Comment on above: Performed By: #### V BG #### [facility] ([id number]) [address] [place] [address] 58500 PH, VENOUS 7.426 High 7.320-7.42 0 [facility] Comment on above: Performed By: #### V BG #### [facility] ([id number]) [address] [place] [address] 90832 PO2, VENOUS 55 MMHG High 30-50 [facility] Comment on above: Performed By: #### V BG #### [facility] ([id number]) [address] [place] [address] 53596 SAMPLE SITE N/A Normal [facility] Comment on above: Performed By: #### V BG #### [facility] ([id number]) [address] [place] [address] 02152 SAMPLE TYPE VENOUS Normal [facility] Comment on above: Performed By: #### V BG #### [facility] ([id number]) [address] [place] [address] 91900 XR CHEST 2 VWSon 06-22-2024 XR CHEST [...] Berry MD on 06/22/2024 12:49 AM Normal [facility] COVID-19 PCRon 05-28-2020 SARS-CoV-2, TARIQ Not Detected Normal Not Detected [facility] Comment on above: Result Comment: This test was developed and its performance characteristics determined by [employer]. This test has not been FDA cleared [...] assay. Performed By: #### L ACT #### [facility] [address] [place] [address] Maryjong Aly AMMONIAon 04-05-2020 Ammonia (P) [Mass/Vol] 26 umol/L Normal 10-30 [facility] Comment on above: Performed By: #### A MM #### [facility] [address] [place], [place] [id number] Mary Sheeba CARDIAC JENNIFER ADMITon 020 CK [Catalytic activity/Vol] 229 U/L Critically high 55-170 [facility] Comment on above: Result Comment: test repeated critical value verified Performed By: #### L ACT #### [facility] [address] [place] [address] Mary Aly CK.MB [Mass/Vol] 1.95 ng/mL Normal <=2.37 [facility] Comment on above: Performed By: #### L ACT #### [facility] [address] [place], [place] [id number] Mary Aly INR Coag (Bld) [Relative time] SEE BELOW Normal [facility] Comment on above: Result Comment: <0.0 34 ng/ml NEGATIVE 0.034-0.119 INDETERMINATE 0.120 AMI CUT OFF Performed By: #### L ACT #### [facility] [address] [place] [address] Mary Sheeba PAIGE 88.0 ng/mL Normal <=121.0 [facility] Comment on above: Performed By: #### L ACT #### [facility] [address] [place] [address] Mary Sheeba TROP <0.012 Normal <=0.034 [facility] Comment on above: Performed By: #### L ACT #### [facility] [address] [place], [place] [id number] Mary Sheeba CBC AUTO DIFFon 04-05-2020 Basophils (Bld) [#/Vol] 0.1 103/ul Normal 0.0-0.1 [facility] Comment on above: Performed By: #### C BC #### [facility] [address] [place] [address] Mary Sheeba Basophils/100 WBC (Bld) 1.1 % Normal 0.2-2.0 [facility] Comment on above: Performed By: #### C BC #### [facility] [address] [place] [address] Mary Sheeba Eosinophils (Bld) [#/Vol] 0.8 103/ul Critically high 0.0-0.7 [facility] Comment on above: Performed By: #### C BC #### [facility] [address] [place] [address] Mary Sheeba Eosinophils/100 WBC (Bld) 6.1 % Normal 0.9-7.0 [facility] Comment on above: Performed By: #### C BC #### [facility] [address] [place] [address] Mary Sheeba Erythrocyte distribution width (RBC) [Ratio] 12.6 % Normal 11.0-15.0 [facility] Comment on above: Performed By: #### C BC #### [facility] [address] [place] [address] Mary Sheeba Hematocrit (Bld) [Volume fraction] 45.1 % Normal 42.0-54.0 [facility] Comment on above: Performed By: #### C BC #### [facility] [address] [place] [address] Mary Sheeba Hemoglobin (Bld) [Mass/Vol] 15.6 g/dL Normal 14.0-18.0 [facility] Comment on above: Performed By: #### C BC #### [facility] [address] [place] [address] Mary Sheeba IG # 0.07 10e3/ul Critically high 0.00-0.03 [facility] Comment on above: Performed By: #### C BC #### [facility] [address] [place], [place] [id number] Mary Sheeba IG % 0.6 % Critically high 0.0-0.5 [facility] Comment on above: Performed By: #### C BC #### [facility] [address] [place] [address] Mary Sheeba Lymphocytes (Bld) [#/Vol] 4.7 103/ul Critically high 1.2-3.8 [facility] Comment on above: Performed By: #### C BC #### [facility] [address] [place] [address] Mary Sheeba Lymphocytes/100 WBC (Bld) 38.2 % Normal 20.5-60.0 [facility] Comment on above: Performed By: #### C BC #### [facility] [address] [place] [address] Mary Sheeba MANUAL DIFF REQ NO Normal [facility] Comment on above: Performed By: #### C BC #### [facility] [address] [place], [place] [id number] Mary Sheeba MCH (RBC) [Entitic mass] 31.8 pg Normal 25.9-34.0 [facility] Comment on above: Performed By: #### C BC #### [facility] [address] [place] [address] Mary Sheeba MCHC (RBC) [Mass/Vol] 34.6 g/dL Normal 29.9-35.2 [facility] Comment on above: Performed By: #### C BC #### [facility] [address] [place], [place] [id number] Mary Sheeba MCV (RBC) [Entitic vol] 92.0 fL Normal 80.0-94.0 [facility] Comment on above: Performed By: #### C BC #### [facility] [address] [place], [place] [id number] Mary Sheeba Monocytes (Bld) [#/Vol] 0.8 103/ul Normal 0.3-0.8 [facility] Comment on above: Performed By: #### C BC #### [facility] [address] [place] [address] Mary Sheeba Monocytes/100 WBC (Bld) 6.8 % Normal 1.7-12.0 [facility] Comment on above: Performed By: #### C BC #### [facility] [address] [place], [place] [id number] Mary Sheeba Neutrophils (Bld) [#/Vol] 5.8 103/ul Normal 1.4-6.5 [facility] Comment on above: Performed By: #### C BC #### [facility] [address] [place], [place] [id number] Mary Sheeba Neutrophils/100 WBC (Bld) 47.2 % Normal 43.0-75.0 [facility] Comment on above: Performed By: #### C BC #### [facility] [address] [place], [place] [id number] Mary Sheeba Platelet mean volume (Bld) [Entitic vol] 9.9 fL Normal 9.5-13.5 [facility] Comment on above: Performed By: #### C BC #### [facility] [address] [place], [place] [id number] Mary Sheeba Platelets (Bld) [#/Vol] 293 103/ul Normal 150-450 [facility] Comment on above: Performed By: #### C BC #### [facility] [address] [place], [place] [id number] Mary Sheeba RBC (Bld) [#/Vol] 4.90 106/ul Normal 4.70-6.10 [facility] Comment on above: Performed By: #### C BC #### [facility] [address] [place], [place] [id number] Mary Sheeba WBC (Bld) [#/Vol] 12.3 103/ul Critically high 4.0-11.0 [facility] Comment on above: Performed By: #### C BC #### [facility] [address] [place] [address] Mary Aly D-DIMERon 04-05-2020 D-DIMER COMMENTS SEE BELOW Normal [facility] Comment on above: Result Comment: Incr eases [...] hospitalization. Performed By: #### L ACT #### [facility] [address] [place] [address] Mary Sheeba Fibrin D-dimer FEU IA (Bld) [Mass/Vol] 0.29 ug/mL Normal 0.19-0.50 [facility] Comment on above: Performed By: #### L ACT #### [facility] [address] [place] [address] Mary Aly DRUG SCREEN RAPID (URINE)on 04-05-2020 AMP Negative Normal NEGATIVE [facility] Comment on above: Performed By: #### L ACT #### [facility] [address] [place] [address] Mary Sheeba BAR Negative Normal NEGATIVE [facility] Comment on above: Performed By: #### L ACT #### [facility] [address] [place] [address] Mary Sheeba BUP Negative Normal NEGATIVE [facility] Comment on above: Performed By: #### L ACT #### [facility] [address] [place] [address] Mary Sheeba BZO Negative Normal NEGATIVE [facility] Comment on above: Performed By: #### L ACT #### [facility] [address] [place] [address] Mary Sheeba ADAMARIS Negative Normal NEGATIVE [facility] Comment on above: Performed By: #### L ACT #### [facility] [address] [place] [address] Mary Sheeba CUT-OFFS SEE BELOW Normal [facility] Comment on above: Result Comment: AMP (Amphetamine): [...] ng/mL Performed By: #### L ACT #### [facility] [address] [place] [address] DRUG CUT HEADER DRUG CLASS TEST SYST EM CUT-OFF CONCENTRATIONS ARE FOLLOWS: Normal [facility] Comment on above: Performed By: #### L ACT #### [facility] [address] [place] [address] Mary Sheeba mAMP Negative Normal NEGATIVE [facility] Comment on above: Performed By: #### L ACT #### [facility] [address] [place] [address] [facility] Normal NEGATIVE [facility] Comment on above: Performed By: #### L ACT #### [facility] [address] [place] [address] Mary Sheeba OPI Negative Normal NEGATIVE [facility] Comment on above: Performed By: #### L ACT #### [facility] [address] [place] [address] [facility] Normal NEGATIVE [facility] Comment on above: Performed By: #### L ACT #### [facility] [address] [place] [address] PCP Negative Normal NEGATIVE [facility] Comment on above: Performed By: #### L ACT #### [facility] [address] [place] [address] PPX Negative Normal NEGATIVE [facility] Comment on above: Performed By: #### L ACT #### [facility] [address] [place], [place] [id number] Mary Sheeba TCA Negative Normal NEGATIVE [facility] Comment on above: Performed By: #### L ACT #### [facility] [address] [place], [place] [id number] Maryjong Aly THC Negative Normal NEGATIVE [facility] Comment on above: Performed By: #### L ACT #### [facility] [address] [place], [place] [id number] Mary Sheeba ETHANOL (BLD ALC)on 04-05-20 20 Ethanol [Mass/Vol] NOTE: 80 mg/dl is th e legal limit for a blood alcohol level Normal [facility] Comment on above: Performed By: #### E TH #### [facility] [address] [place] [address] Mary Sheeba Ethanol [Mass/Vol] 242 mg/dL Normal [facility] Comment on above: Performed By: #### E TH #### [facility] [address] [place] [address] Maryjong Varelaen PROF 14(COMP METB)on 020 Albumin [Mass/Vol] 4.0 g/dL Normal 3.5-5.0 [facility] Comment on above: Performed By: #### L ACT #### [facility] [address] [place], [place] [id number] Mary Sheeba Albumin/Globulin [Mass ratio] 1.1 {ratio} Normal [facility] Comment on above: Performed By: #### L ACT #### [facility] [address] [place] [address] Mary Sheeba ALP [Catalytic activity/Vol] 74 U/L Normal 38-126 [facility] Comment on above: Performed By: #### L ACT #### [facility] [address] [place], [place] [id number] Mary Sheeba ALT [Catalytic activity/Vol] 37 U/L Normal 21-72 [facility] Comment on above: Performed By: #### L ACT #### [facility] [address] [place], [place] [id number] Mary Sheeba Anion gap [Moles/Vol] 19.2 mmol/L Normal [facility] Comment on above: Performed By: #### L ACT #### [facility] [address] [place] [address] Maryjong Varelaen AST [Catalytic activity/Vol] 31 U/L Normal 17-59 [facility] Comment on above: Performed By: #### L ACT #### [facility] [address] [place] [address] Mary Sheeba Bilirubin Ql (U) 0.3 mg/dL Normal 0.2-1.3 [facility] Comment on above: Performed By: #### L ACT #### [facility] [address] [place] [address] Mary Sheeba Calcium [Mass/Vol] 8.6 mg/dL Normal 8.4-10.2 [facility] Comment on above: Performed By: #### L ACT #### [facility] [address] [place] [address] Mary Sheeba Chloride [Moles/Vol] 105 mmol/L Normal 98-107 [facility] Comment on above: Performed By: #### L ACT #### [facility] [address] [place] [address] Mary Sheeba CO2 [Moles/Vol] 22.5 mmol/L Normal 22.0-30.0 [facility] Comment on above: Performed By: #### L ACT #### [facility] [address] [place] [address] Mary Sheeba Creatinine [Mass/Vol] 0.79 mg/dL Normal 0.66-1.25 [facility] Comment on above: Performed By: #### L ACT #### [facility] [address] [place] [address] Mary Sheeba EGFR-AF MONTSERRATIAN >60 Normal >=60 [facility] Comment on above: Performed By: #### L ACT #### [facility] [address] [place] [address] Mary Sheeba EGFR-NON AF MONTSERRATIAN >60 Normal >=60 [facility] Comment on above: Performed By: #### L ACT #### [facility] [address] [place], [place] [address] Mary Sheeba Globulin (S) [Mass/Vol] 3.8 g/dL Normal [facility] Comment on above: Performed By: #### L ACT #### [facility] [address] [place], [place] [address] Mary Sheeba Glucose [Mass/Vol] 103 mg/dL Normal 74-106 [facility] Comment on above: Performed By: #### L ACT #### [facility] [address] [place], [place] [address] Mary Sheeba Potassium [Moles/Vol] 3.7 mmol/L Normal 3.4-5.0 [facility] Comment on above: Result Comment: slig htly hemolyzed Performed By: #### L ACT #### [facility] [address] [place], [place] [address] Mary Sheeba Protein [Mass/Vol] 7.8 g/dL Normal 6.1-8.2 [facility] Comment on above: Performed By: #### L ACT #### [facility] [address] [place], [place] [address] Mary Sheeba Sodium [Moles/Vol] 143 mmol/L Normal 137-145 [facility] Comment on above: Performed By: #### L ACT #### [facility] [address] [place], [place] [address] Mary Sheeba Urea nitrogen [Mass/Vol] 6.0 mg/dL Critically low 9.0-20.0 [facility] Comment on above: Performed By: #### L ACT #### [facility] [address] [place], [place] [address] Mary Sheeba Urea nitrogen/Creatinin e [Mass ratio] 7.6 mg/mg Normal [facility] Comment on above: Performed By: #### L ACT #### [facility] [address] [place], [place] [address] Mary Sheeba XR CHEST 1 Von 04-05-2020 [...] by: KELLY THOMAS Date: 2020-04-05 21:34 Normal [facility] CT ABD/PELV W CONon 03-25-20 20 [...] JUSTIN ALEMAN Date: 2020-03-24 23:05 Normal [facility] AMYLASEon 03-24-2020 Amylase [Catalytic activity/Vol] 37 U/L Normal 31-110 [facility] Comment on above: Performed By: #### C MP, DARIAN, LIPA #### [facility] [address] [place], [place] [address] Mary Aly CBC AUTO DIFFon 03-24-2020 Basophils (Bld) [#/Vol] 0.1 103/ul Normal 0.0-0.1 [facility] Comment on above: Performed By: #### C BC #### [facility] [address] [place], [place] [id number] Mary Sheeba Basophils/100 WBC (Bld) 0.6 % Normal 0.2-2.0 [facility] Comment on above: Performed By: #### C BC #### [facility] [address] [place], [place] [id number] Mary Sheeba Eosinophils (Bld) [#/Vol] 0.4 103/ul Normal 0.0-0.7 [facility] Comment on above: Performed By: #### C BC #### [facility] [address] [place], [place] [address] Mary Sheeba Eosinophils/100 WBC (Bld) 3.1 % Normal 0.9-7.0 [facility] Comment on above: Performed By: #### C BC #### [facility] [address] [place], [place] [address] Mary Sheeba Erythrocyte distribution width (RBC) [Ratio] 12.7 % Normal 11.0-15.0 [facility] Comment on above: Performed By: #### C BC #### [facility] [address] [place], [place] [address] Mary Sheeba Hematocrit (Bld) [Volume fraction] 47.5 % Normal 42.0-54.0 [facility] Comment on above: Performed By: #### C BC #### [facility] [address] [place], [place] [address] Mary Sheeba Hemoglobin (Bld) [Mass/Vol] 16.2 g/dL Normal 14.0-18.0 [facility] Comment on above: Performed By: #### C BC #### [facility] [address] [place], [place] [address] Mary Sheeba IG # 0.06 10e3/ul Critically high 0.00-0.03 [facility] Comment on above: Performed By: #### C BC #### [facility] [address] [place], [place] [address] Mary Sheeba IG % 0.5 % Normal 0.0-0.5 [facility] Comment on above: Performed By: #### C BC #### [facility] [address] [place] [address] Mary Sheeba Lymphocytes (Bld) [#/Vol] 2.2 103/ul Normal 1.2-3.8 [facility] Comment on above: Performed By: #### C BC #### [facility] [address] [place], [place] [address] Mary Sheeba Lymphocytes/100 WBC (Bld) 17.1 % Critically low 20.5-60.0 [facility] Comment on above: Performed By: #### C BC #### [facility] [address] [place], [place] [address] Mary Sheeba MANUAL DIFF REQ NO Normal [facility] Comment on above: Performed By: #### C BC #### [facility] [address] [place], [place] [address] Mary Sheeba MCH (RBC) [Entitic mass] 31.9 pg Normal 25.9-34.0 [facility] Comment on above: Performed By: #### C BC #### [facility] [address] [place] [address] Mary Sheeba MCHC (RBC) [Mass/Vol] 34.1 g/dL Normal 29.9-35.2 [facility] Comment on above: Performed By: #### C BC #### [facility] [address] [place], [place] [address] Mary Sheeba MCV (RBC) [Entitic vol] 93.5 fL Normal 80.0-94.0 [facility] Comment on above: Performed By: #### C BC #### [facility] [address] [place], [place] [address] Mary Sheeba Monocytes (Bld) [#/Vol] 0.9 103/ul Critically high 0.3-0.8 [facility] Comment on above: Performed By: #### C BC #### [facility] [address] [place], [place] [address] Mary Sheeba Monocytes/100 WBC (Bld) 6.5 % Normal 1.7-12.0 [facility] Comment on above: Performed By: #### C BC #### [facility] [address] [place], [place] [address] Mary Sheeba Neutrophils (Bld) [#/Vol] 9.5 103/ul Critically high 1.4-6.5 [facility] Comment on above: Performed By: #### C BC #### [facility] [address] [place], [place] [address] Mary Sheeba Neutrophils/100 WBC (Bld) 72.2 % Normal 43.0-75.0 [facility] Comment on above: Performed By: #### C BC #### [facility] [address] [place], [place] [address] Mary Sheeba Platelet mean volume (Bld) [Entitic vol] 10.5 fL Normal 9.5-13.5 [facility] Comment on above: Performed By: #### C BC #### [facility] [address] [place], [place] [address] Mary Sheeba Platelets (Bld) [#/Vol] 271 103/ul Normal 150-450 [facility] Comment on above: Performed By: #### C BC #### [facility] [address] [place], [place] [address] Mary Sheeba RBC (Bld) [#/Vol] 5.08 106/ul Normal 4.70-6.10 [facility] Comment on above: Performed By: #### C BC #### [facility] [address] [place], [place] [address] Mary Sheeba WBC (Bld) [#/Vol] 13.1 103/ul Critically high 4.0-11.0 [facility] Comment on above: Performed By: #### C BC #### [facility] [address] [place], [place] [address] Mary Sheeba LACTATE/LACTIC ACIDon 2019 Lactate [Moles/Vol] 0.8 mmol/L Normal 0.7-2.0 [facility] Comment on above: Performed By: #### L ACT #### [facility] [address] [place] [address] Mary Sheeba LIPASEon 03-24-2020 Lipase [Catalytic activity/Vol] 123.0 U/L Normal 23.0-300.0 [facility] Comment on above: Performed By: #### C DARIAN MENDOZA LIPA #### [facility] [address] [place] [address] Maryjong Varelaen PROF 14(COMP METB)on 020 Albumin [Mass/Vol] 4.5 g/dL Normal 3.5-5.0 [facility] Comment on above: Performed By: #### C DARIAN MENDOZA, LIPA #### [facility] [address] [place] [address] Mary Sheeba Albumin/Globulin [Mass ratio] 1.2 {ratio} Normal [facility] Comment on above: Performed By: #### C DARIAN MENDOZA LIPA #### [facility] [address] [place] [address] Mary Sheeba ALP [Catalytic activity/Vol] 69 U/L Normal 38-126 [facility] Comment on above: Performed By: #### C DARIAN MENDOZA LIPA #### [facility] [address] [place] [address] Mary Sheeba ALT [Catalytic activity/Vol] 27 U/L Normal 21-72 [facility] Comment on above: Performed By: #### C DARIAN MENDOZA LIPA #### [facility] [address] [place] [address] Mary Sheeba Anion gap [Moles/Vol] 13.0 mmol/L Normal [facility] Comment on above: Performed By: #### C DARIAN MENDOZA, LIPA #### [facility] [address] [place] [address] Mary Sheeba AST [Catalytic activity/Vol] 19 U/L Normal 17-59 [facility] Comment on above: Performed By: #### C DARIAN MENDOZA LIPA #### [facility] [address] [place] [address] Mary Sheeba Bilirubin Ql (U) 0.4 mg/dL Normal 0.2-1.3 [facility] Comment on above: Performed By: #### C DARIAN MENDOZA LIPA #### [facility] [address] [place] [address] Mary Sheeba Calcium [Mass/Vol] 10.0 mg/dL Normal 8.4-10.2 [facility] Comment on above: Performed By: #### C DARIAN MENDOZA LIPA #### [facility] [address] [place] [address] Mary Sheeab Chloride [Moles/Vol] 100 mmol/L Normal 98-107 [facility] Comment on above: Performed By: #### C DARIAN MENDOZA LIPA #### [facility] [address] [place] [address] Mary Sheeba CO2 [Moles/Vol] 27.7 mmol/L Normal 22.0-30.0 [facility] Comment on above: Performed By: #### C DARIAN MENDOZA LIPA #### [facility] [address] [place] [address] Mary Sheeba Creatinine [Mass/Vol] 0.70 mg/dL Normal 0.66-1.25 [facility] Comment on above: Performed By: #### C DARIAN MENDOZA LIPA #### [facility] [address] [place] [address] Mary Sheeba EGFR-AF MONTSERRATIAN >60 Normal >=60 [facility] Comment on above: Performed By: #### C DARIAN MENDOZA LIPA #### [facility] [address] [place] [address] Mary Sheeba EGFR-NON AF MONTSERRATIAN >60 Normal >=60 [facility] Comment on above: Performed By: #### C DARIAN MENDOZA LIPA #### [facility] [address] [place] [address] Mary Sheeba Globulin (S) [Mass/Vol] 3.8 g/dL Normal [facility] Comment on above: Performed By: #### C DARIAN MENDOZA LIPA #### [facility] [address] [place] [address] Mary Sheeba Glucose [Mass/Vol] 103 mg/dL Normal 74-106 [facility] Comment on above: Performed By: #### C DARIAN MENDOZA LIPA #### [facility] [address] [place] [address] Mary Sheeba Potassium [Moles/Vol] 3.7 mmol/L Normal 3.4-5.0 [facility] Comment on above: Performed By: #### C DARIAN MENDOZA LIPA #### [facility] [address] [place] [address] Mary Sheeba Protein [Mass/Vol] 8.3 g/dL Critically high 6.1-8.2 [facility] Comment on above: Performed By: #### C DARIAN MENDOZA LIPA #### [facility] [address] [place] [address] Mary Sheeba Sodium [Moles/Vol] 137 mmol/L Normal 137-145 [facility] Comment on above: Performed By: #### C DARIAN MENDOZA LIPA #### [facility] [address] [place] [address] Mary Sheeba Urea nitrogen [Mass/Vol] 13.0 mg/dL Normal 9.0-20.0 [facility] Comment on above: Performed By: #### C DARIAN MENDOZA LIPA #### [facility] [address] [place] [address] Mary Sheeba Urea nitrogen/Creatinin e [Mass ratio] 18.6 mg/mg Normal [facility] Comment on above: Performed By: #### C DARIAN MENDOZA LIPA #### [facility] [address] [place] [address] Mary Sheeba XR ABD FLAT UP_PA [facility] 03-24 XR ABD FLAT UP_PA CH EXAM: [...] by: LISA NUNN Date: 2020-03-24 21:01 Normal [facility] Coding Summary.on 11-12-2017 Coding Summary. CODING DATE: [facility] STATUS: Home (Routine DC) PAYOR: Medicaid EA DESCRIPTION 0852 OTHER COMPLICATIONS OF TREATMENT ADMIT [...] Blanc Date Saved: 11/12/2017 08:29 am Normal [facility] Coding Summary.on 10-29-2017 Coding Summary. CODING DATE: [facility] STATUS: Home (Routine DC) PAYOR: Medicaid [...] Blanc Date Saved: 10/29/2017 07:50 am Normal [facility] Coding Summary.on 10-19-2017 Coding Summary. CODING DATE: [facility] STATUS: Home w/ Home Health PAYOR: Medicaid Grouper: 872 MS-DRG SEPTICEMIA OR SEVERE SEPSIS W/O MV >96 HOURS W/O RESIDENTIAL Low Trim 0 High Trim 999 720 [...] dependence, cigarettes, uncomplicated PROCEDURES DOCTOR NAME DATE Drainage of Lower Back, Diana Patten MD, Jose M Camilo 10/08/2017 Approach NOTE: The code number assigned matches the documented diagnosis and / or procedure in the patient's chart. However, the narrative phrase printed from the coding software may appear abbreviated, or result in slightly different terminology. Coded By: Toña Espinosa Date Saved: 10/19/2017 02:22 pm Normal [facility] Discharge Summaryon 10-16-19 Discharge Summary Patient: Alexx WILKES Age: 27 years Sex: Male : 1990 Associated Diagnoses: None Author: Sushant DC, [facility] Discharge Information Discharge Summary Information: Admit Date/Time: [...] serum enzymes Prescription and Home Meds: acetaminophen-hydrocodone ([place] 325 mg-5 mg oral tablet) See Instructions, [...] MaximumTemp 36.6 (OCT 16 07:00) 36.5 (OCT 15:30) 36.7 (OCT 15:)Heart Rate 79 (OCT 16 07:00) 79 (OCT 16:00) H 103 (OCT 15:00)Resp Rate 20 (OCT 16:00) 14 (OCT 16:49) 20 (OCT 16:)SBP 119 (OCT 16:00) 105 (OCT 15 19:30) 125 (OCT 16:49)DBP 64 (OCT 16:) L 54 (OCT 15 12:11) 75 (OCT 16:49)MAP 91 (OCT 16:49) 72 (OCT 15 12:11) 91 (OCT 16:49)SpO2 98 (OCT 16 07:00) 96 (OCT 15:00) 98 (OCT 16:00) General: Alert and oriented, No acute distress. [...] fluid. Mild paralumbar tenderness.. Integumentary: Warm, Dry, [place]. Neurologic: Alert, Oriented. Psychiatric: Cooperative, Appropriate mood & affect. Hospital Course 27-year-old male with no significant past medical history presented with complaints of left flank and left lower back pain of about 2-3 weeks duration associated with fever, chills and nausea. He was subsequently admitted to [facility] with sepsis secondary to left paralumbar [...] reviewed with patient, called to pharmacy. Normal [facility] Comment on above: Result Comment: Elec tronically Signed By: Sushant DC, Juan Pablo\.br\Date and Time Signed: 10/16/17 13:50 EST Inpatient Clinical Summaryon 10-16-2017 Inpatient Clinical Summary [place] [address] Clinical Summary Person Information:Name: WILLOW WILKES Age: 27 Years : 1990 12:00 AM Sex: Male PCP: Myra Middleton MD Marital Status:Single Race:White Ethnicity:Non- or Language:Moroccan Visit Id: Visit Reason:Increased heart rate; Nausea; Dizziness; Pain in back; CELLULITIS, PHLEGMON, TACHYCARDIA Speciality: Acuity: 3 Enc Type: Inpatient Med Service: Medical Arrival:10/05/2017 5:35 PM Discharge: Dispo Type: Admitted as IP to this Hosp Address:Alondra SANDOVAL [facility] [id number] Provider Notes: Diagnosis:Cellulitis of lower back; Elevated [...] Immunizations Documented This Visit Final Med List:acetaminophen-hydrocodone ([place] 325 mg-5 mg oral tablet) 1 - [...] Physician: Sandor DC, Jose M Camilo; Klarissa hTomason, Donald Delcid Physician: Follow up:With: Address: When: Myra Middleton [address] [place] [address] Business (1) Within 5 to 7 days Comments: Call for followup appointment. No answer With: Address: When: Donald Cyr [address] [place] [address] Business (1) Within 2 weeks Comments: Call for followup appointment. Office computer is down right now. Call Wednesday for appointment With: Address: When: Jose M Patten [address], [facility] [address] [place] [address] Business (1) 10/28/17 09:55:00 Comments: Call for followup appointment With: Address: When: Wound Clinic: [facility] [phone] 10/14/17 08:00:00 Comments: Keep scheduled appointment Patient Education Information: Cellulitis, Ilyr-lb-RqssNauija, Malaga 5/325 Tab Normal [facility] Inpatient Patient Summaryon 10-16-2017 Inpatient Patient Summary [address] [address] Patient Discharge Instructions PERSON INFORMATION Name: WILLOW WILKES Date of : 1990 12:00 AM Current Date: 10/16/17 12:14:08 PHYSICIANS Admitting Physician: Luis F Benavides DO [facility] Care Physician: Evelin Middleton MD Comment: Discharge Diagnosis: Cellulitis of lower back; [...] NoneFollow up:With: Address: When: Myra Middleton [address] [place] [address] Business (1) Within 5 to 7 days Comments: Call for followup appointment. No answer With: Address: When: Donald Cyr [address] [place] [address] Business (1) Within 2 weeks Comments: Call for followup appointment. Office computer is down right now. Call Wednesday for appointment With: Address: When: Jose M Patten [address] [facility], [facility] [address] [place] [address] Business (1) 10/28/17 09:55:00 Comments: Call for followup appointment With: Address: When: Wound Clinic: [facility] [phone] 10/14/17 08:00:00 Comments: Keep scheduled appointment In the event that this physician does not participate in your insurance network, please consult with your insurance company to find a nearby participating provider. Comment: CHUNG Bustamante RYAN, have received the attached patient education materials/instructions and have verbalized understanding:Patient Signature Date Clinican/Nurse Signature Date HERE ARE THE MEDICATION CHANGES THAT OCCURRED DURING YOUR HOSPITAL STAY [facility] [place] [address], [phone]-hydrocodone (Malaga 325 mg-5 mg oral tablet) 1 - [...] THIS WITH YOU AT ALL TIMES. acetaminophen-hydrocodone ([place] 325 mg-5 mg oral tablet) 1 - [...] 02/11/2015 Document Reviewed: 12/12/2012ExitCare? Patient Information ?2015 [employer]. This information is not intended to replace advice given to you by your health care provider. Make sure you discuss any questions you have with your health care provider. Medication Leaflets:cephalexin (sef a RENUKA in)Belem Lara What is the most important information I [...] may report side effects to FDA at 4-252-OCX-8789. What other drugs will affect cephalexin?Other drugs may interact with cephalexin, including prescription and lsul-pfz-zzvhrws medicines, vitamins, and herbal products. Tell each [...] to ensure that the information provided by [employer]. ('[employer]') is accurate, up-to-date, and complete, but no guarantee is made to that effect. Drug information contained herein may be time sensitive. [employer] information has been compiled for use by healthcare practitioners and consumers in the [place] and therefore [employer] does not warrant that uses outside of the [place] are appropriate, unless specifically indicated otherwise. [employer] drug information does not endorse drugs, diagnose patients or recommend therapy. [employer] drug information is an informational resource designed [...] effective or appropriate for any given patient. [facility] does not assume any responsibility for any aspect of healthcare administered with the aid of information [facility] provides. The information contained herein is not intended to cover all possible uses, directions, precautions, warnings, drug interactions, allergic reactions, or adverse effects. If you have questions about the drugs you are taking, check with your doctor, nurse or pharmacist. Copyright 1782-2546 [facility]. Version: 9.01. Revision Date: 01/26/2017.acetaminophen and hydrocodone (a SEET a MIN oh fen and pete droe KOE done)Hycet, Lorcet, Lortab 10/325, Lortab 5/325, Lortab 7.5/325, Lortab Elixir, Malaga, Verdrocet, Vicodin, Xodol, Zamicet What is the [...] may report side effects to FDA at 3-349-YOC-7850.What other drugs will affect acetaminophen and hydrocodone?Narcotic [...] with acetaminophen and hydrocodone, including prescription and xxdn-dgv-zfaiuew medicines, vitamins, and herbal products. Not all [...] to ensure that the information provided by [employer]. ('[employer]') is accurate, up-to-date, and complete, but no guarantee is made to that effect. Drug information contained herein may be time sensitive. [employer] information has been compiled for use by healthcare practitioners and consumers in the [place] and therefore [employer] does not warrant that uses outside of the [place] are appropriate, unless specifically indicated otherwise. [employer] drug information does not endorse drugs, diagnose patients or recommend therapy. [employer] drug information is an informational resource designed [...] effective or appropriate for any given patient. [employer] does not assume any responsibility for any aspect of healthcare administered with the aid of information [employer] provides. The information contained herein is not intended to cover all possible uses, directions, precautions, warnings, drug interactions, allergic reactions, or adverse effects. If you have questions about the drugs you are taking, check with your doctor, nurse or pharmacist. Copyright 7457-8594 [employer]. Version: 14.11. Revision Date: 07/09/2016. Thank you for choosing [facility] Normal [facility] Interdisciplinary Note - Brett e Manageron 10-15-2017 Interdisciplinary Note - Exhibit Electrician Daily rounds completed with hospitalist Dr. Canchola, [facility] Alisa, Pharmacist Maryjane present. Patient alert and oriented, involved in POC. Discussed medications, labs, and tests. Pt remains in isolation. No family present at this time. Patient?s goal is to return home with [facility] at discharge. Anticipated discharge yet to be determined, awaiting wound vac authorization from [place] [employer]. Contact and goal information updated on white board. Normal [facility] Progress Note-Physicianon Progress Note-Physician Patient: WILLOW [...] (4)ceFAZolin 2 gram 50 mL, IV Piggyback, s7ydijaogydl sodium 100 mg Cap [F] 100 mg 1 cap(s), Oral, BIDnicotine 14 mg/24 hr Transderm ER Film [F] 14 mg 1 patch(es), TransDermal, DailySodium Chloride 0.9% 500 mL 500 mL, IVContinuous: (1)Lactated Ringers 1,000 mL 1,000 mL, IV, 20 mL/hrPRN: (6)acetaminophen 325 mg Tab UD [F] 650 mg 2 tab(s), Oral, l1pvoewptulpszpgy-pjgqeorba 325 mg-5 mg Tab [F] 1 tab(s), Oral, m2wgqgtjgclmo 0.083% Inh Mary 3 mL [F] 2.5 mg 3 mL, NEB, v1eijzhqvzlqh CFC free 90 mcg/inh Inh Aer w/Adapt 8.5 gm [F] 180 microgram 2 puff(s), Inhalation, q5cxpuwtcubj 2 mg/mL preservative-free SOLN [F] 2 mg 1 mL, IV Push, o5tezfxauaevnxx 2 mg/mL Inj [F] 4 mg 2 mL, IV Push, q6hr Problem list: All ProblemsImpaired skin integrity / SNOMED CT 62347227 / ConfirmedProblem added on documentation of skin impairments.At risk for falls / SNOMED CT 008397918 / PossibleProblem added when Risk for Falls Careplan was initiated.Smoker / IMO [id number] / ConfirmedAdded secondary to documentation in Social History.Resolved: Asthma / SNOMED CT 202993589 Histories Past Medical History: ResolvedAsthma ([id number]): Resolved. Family History: AsthmaMother Procedure history: Incision AND drainage (SNOMED CT 329442187) performed by Jose M Patten MD on 10/08/2017 at 27 Years.Comments:10/08/2017 19:32 - Magda THOMPSON, Julieta NI AND D AND IRRIGATION LEFT LOWER BACK ABCESS 10 X 15 CMIncision AND drainage (SNOMED CT 143626702).Comments:10/06/2017 06:12 - Philippe Cabezas RN right hand Social History Social & Psychosocial PdqizcFsuiaqv39/26/2017 Risk Assessment: Denies Alcohol UseSubstance Abuse10/05/2017 Risk Assessment: Denies Substance WduzgQrrdxev12/26/2017 Risk Assessment: High Risk10/05/2017 Use: Current Every [...] 15 08:51) 95 (OCT 14:09) 97 (OCT 15 01:52). Vitals Signs (last 24 hrs) Last Charted Minimum MaximumTemp 36.5 (OCT 15 08:49) 36.5 (OCT 14 20:08) 36.6 (OCT 14 16:00)Heart Rate 98 (OCT 15 08:51) 80 (OCT 15 01:52) 99 (OCT 14 16:11)Resp Rate 16 (OCT 15 08:51) 14 (OCT 14:09) 17 (OCT 14 16:10)SBP 105 (OCT 15 [...] Yury Delarosa MDTranscribed by: JENNIFFER Technologist: CHUCK REPORTThis document has an imageResult type: US Abdomen, LimitedResult date: October 07, 2017 18:20 ESTResult status: Auth (Verified)Result title: US Abdomen, LimitedPerformed by: Yury Delarosa MD on October 08, 2017 08:58 ESTVerified by: Yury Delarosa MD on October 08, 2017 08:58 [facility] info: [id number], Abdi [place], Inpatient, 10/05/2017 - . Condition: Fair. Impression [...] wound VAC. Awaiting precertification by insurance. [facility] Comment on above: Result Comment: Elec tronically [...] (4)ceFAZolin 2 gram 50 mL, IV Piggyback, i2bktqykeaob sodium 100 mg Cap [F] 100 mg 1 cap(s), Oral, BIDnicotine 14 mg/24 hr Transderm ER Film [F] 14 mg 1 patch(es), TransDermal, DailySodium Chloride 0.9% 500 mL 500 mL, IVContinuous: (1)Lactated Ringers 1,000 mL 1,000 mL, IV, 20 mL/hrPRN: (6)acetaminophen 325 mg Tab UD [F] 650 mg 2 tab(s), Oral, j9alfbnncgffepsrg-edwsijyfp 325 mg-5 mg Tab [F] 1 tab(s), Oral, p5xzdvbqypalo 0.083% Inh Mary 3 mL [F] 2.5 mg 3 mL, NEB, e7qdirgfhulvb CFC free 90 mcg/inh Inh Aer w/Adapt 8.5 gm [F] 180 microgram 2 puff(s), Inhalation, x5vwkiyszbgn 2 mg/mL preservative-free SOLN [F] 2 mg 1 mL, IV Push, i4cpnhgsjbwfihb 2 mg/mL Inj [F] 4 mg 2 mL, IV Push, q6hr Problem list: All ProblemsAt risk for falls / SNOMED CT 170718020 / PossibleProblem added when Risk for Falls Careplan was initiated.Impaired skin integrity / SNOMED CT 50220897 / ConfirmedProblem added on documentation of skin impairments.Smoker / IMO [id number] / ConfirmedAdded secondary to documentation in Social History. Objective Vitals Signs (last 24 hrs) Last Charted Minimum MaximumTemp 36.5 (OCT 15 08:49) 36.5 (OCT 14:08) 36.8 (OCT 14 11:00)Heart Rate 98 (OCT [...] on dc for total 3 weeks. . [facility] Comment on above: Result Comment: Elec tronically Signed By: Donald Cyr M.D.pretty\Date and Time Signed: 10/15/17 10:25 EST Interdisciplinary Note - Brett e Manageron 10-14-2017 Thyroid stimulating hormone (TSH) Daily rounds completed with hospitalist Dr. Canchola, [facility] Alisa, Pharmacist Trey present. Patient alert and oriented, involved in POC. Discussed medications, labs, and tests. Adjustment of pain meds, po meds ordered. Await wound vac authorization from [place] [employer]. Signed orders faxed yesterday. No family present at this time. Patient?s goal is to return home at discharge. Anticipated discharge yet to be determined,possibly today if wound vac authorization received. Contact and goal information updated on white board. [facility] Progress Note-Physicianon Progress Note-Physician Patient: WILLOW WILKES [...] (4)ceFAZolin 2 gram 50 mL, IV Piggyback, n8eoqpxcrxrh sodium 100 mg Cap [F] 100 mg 1 cap(s), Oral, BIDnicotine 14 mg/24 hr Transderm ER Film [F] 14 mg 1 patch(es), TransDermal, DailySodium Chloride 0.9% 500 mL 500 mL, IVContinuous: (1)Lactated Ringers 1,000 mL 1,000 mL, IV, 20 mL/hrPRN: (6)acetaminophen 325 mg Tab UD [F] 650 mg 2 tab(s), Oral, x6uyajmgdwgmcjkfv-rgwyhlrnk 325 mg-5 mg Tab [F] 1 tab(s), Oral, x1ehzncevzpzj 0.083% Inh Mary 3 mL [F] 2.5 mg 3 mL, NEB, m8xaezqwvuezn CFC free 90 mcg/inh Inh Aer w/Adapt 8.5 gm [F] 180 microgram 2 puff(s), Inhalation, k9oargddylyg 2 mg/mL preservative-free SOLN [F] 2 mg 1 mL, IV Push, y8rrfxocxbzyxgi 2 mg/mL Inj [F] 4 mg 2 mL, IV Push, q6hr Problem list: All ProblemsImpaired skin integrity / SNOMED CT 71305214 / ConfirmedProblem added on documentation of skin impairments.At risk for falls / SNOMED CT 119051015 / PossibleProblem added when Risk for Falls Careplan was initiated.Smoker / IMO [id number] / ConfirmedAdded secondary to documentation in Social History.Resolved: Asthma / SNOMED CT 111312355 Histories Past Medical History: ResolvedAsthma ([id number]): Resolved. Family History: AsthmaMother Procedure history: Incision AND drainage (SNOMED CT 840223677) performed by Jose M Patten MD on 10/08/2017 at 27 Years.Comments:10/08/2017 19:32 - Magda THOMPSON, Julieta IGLESIAS AND D AND IRRIGATION LEFT LOWER BACK ABCESS 10 X 15 CMIncision AND drainage (SNOMED CT 358153701).Comments:10/06/2017 06:12 - Philippe Cabezas RN right hand Social History Social & Psychosocial GtkkotYlohmpo67/26/2017 Risk Assessment: Denies Alcohol UseSubstance Abuse10/05/2017 Risk Assessment: Denies Substance NnwreBmskzav97/26/2017 Risk Assessment: High Risk10/05/2017 Use: Current Every Day Smoker Type: Cigarettes Tobacco use per day: 0.5. Objective VS/Measurements: Vitals Signs (last 24 hrs) Last Charted Minimum MaximumTemp 36.7 (OCT 14 09:59) 36.6 (OCT 13 23:00) 36.7 (OCT 13 16:31)Heart Rate 86 (OCT 14 11:06) 86 (OCT 14 11:06) H 103 (OCT 13 23:00)Resp Rate 16 (OCT 14 11:04) 16 (OCT 13 18:36) 17 (OCT 13 23:00)SBP 108 (OCT 14 11:05) 105 (OCT 13 23:00) 113 (OCT 13 18:37)DBP 70 (OCT 14 11:05) 64 (OCT 13 23:00) 77 (OCT 14 08:25)MAP 82 (OCT 14 11:) 78 (OCT 13 23:00) 89 (OCT 14 08:25)SpO2 97 (OCT 14:) 97 (OCT 14:) 99 (OCT 13 23:00). Vitals Signs (last 24 hrs) Last Charted Minimum MaximumTemp 36.7 (OCT 14 09:59) 36.6 (OCT 13 23:00) 36.7 (OCT 13 16:31)Heart Rate 86 (OCT 14 11:06) 86 (OCT 14 11:06) H 103 (OCT 13 23:00)Resp Rate 16 [...] Delarosa MD on October 08, 2017 08:58 [facility] info: [id number], Abdi [place], Inpatient, 10/05/2017 - . Condition: Fair. [...] wound VAC. Awaiting precertification by insurance. [facility] Comment on above: Result Comment: Elec tronically Signed By: Sushant DC, Juan Pablo\.br\Date and Time Signed: 10/14/17 11:09 EST C Bloodon 10-13-2017 Bacteria culture MicrobiologyPROCEDUR E: Blood Culture [R1] Blood BODY SITE: Arm LCOLLECTED DATE/TIME: 10/05/2017 23:35 EST RECEIVED DATE/TIME: 10/06/2017 00:59 ESTSTART DATE/TIME: 10/06/2017 00:59 EST FREE TEXT SOURCE: Peripheral vein site #2Hwalter Mcfadden, Анна H Melissa Mcfadden, Анна NicoleFINAL REPORTSFinal Report [] Verified Date/Time: 10/13/2017 03:00 ESTNo growth at 7 days.Performing LocationsR1: [facility], [address] [place] [address], [address] , [facility] Comment on above: Performed By: #### 1 [id number], [id number], [id number], [id number], [id number], [id number], [id number] ####[place] [id number] [place] [address] Bacteria culture MicrobiologyPROCEDUR E: Blood Culture [R1] Blood BODY SITE: Arm RCOLLECTED DATE/TIME: 10/05/2017 23:08 EST RECEIVED DATE/TIME: 10/06/2017 01:00 ESTSTART DATE/TIME: 10/06/2017 01:00 EST FREE TEXT SOURCE: Peripheral vein site #1Hwalter Mcfadden, Анна H Melissa Mcfadden, Анна NicoleFINAL REPORTSFinal Report [] Verified Date/Time: 10/13/2017 03:00 ESTNo growth at 7 days.Performing LocationsR1: This test was performed at: [facility], [address] [place] [address], [address] , [facility] Comment on above: Performed By: #### 1 [id number], [id number], [id number], [id number], [id number], [id number] ####[facility] [address] [place] [address] Interdisciplinary Note - Brett e Manageron 10-13-2017 Interdisciplinary Note - Exhibit Electrician Daily rounds completed with hospitalist Dr. Canchola, MARY Cuellar, Pharmacist Maryjane, Tangible Personal Property Appraiser Damaris, and RN present. Patient alert and oriented, involved in POC. Discussed medications, labs, and tests. No family present at this time. Patient?s goal is to return home with [facility] wound Vac at discharge. Anticipated discharge yet to be determined, awaiting wound vac authorization. Contact and goal information updated on white board. Normal [facility] Progress Note-Physicianon Progress Note-Physician Patient: WILLOW [...] (4)ceFAZolin 2 gram 50 mL, IV Piggyback, e6wrlscwvvsa sodium 100 mg Cap [F] 100 mg 1 cap(s), Oral, BIDnicotine 14 mg/24 hr Transderm ER Film [F] 14 mg 1 patch(es), TransDermal, DailySodium Chloride 0.9% 500 mL 500 mL, IVContinuous: (1)Lactated Ringers 1,000 mL 1,000 mL, IV, 20 mL/hrPRN: (5)acetaminophen 325 mg Tab UD [F] 650 mg 2 tab(s), Oral, n4sniksgqkrzh 0.083% Inh Mary 3 mL [F] 2.5 mg 3 mL, NEB, n2kmzlxlwbcrw CFC free 90 mcg/inh Inh Aer w/Adapt 8.5 gm [F] 180 microgram 2 puff(s), Inhalation, i6hgmprfrlza 2 mg/mL preservative-free SOLN [F] 4 mg 2 mL, IV Push, e9szflyyknmxtwc 2 mg/mL Inj [F] 4 mg 2 mL, IV Push, q6hr Problem list: All ProblemsImpaired skin integrity / SNOMED CT 40444199 / ConfirmedProblem added on documentation of skin impairments.At risk for falls / SNOMED CT 219077677 / PossibleProblem added when Risk for Falls Careplan was initiated.Smoker / IMO [id number] / ConfirmedAdded secondary to documentation in Social History.Resolved: Asthma / SNOMED CT 941639581 Histories Past Medical History: ResolvedAsthma ([id number]): Resolved. Family History: AsthmaMother Procedure history: Incision AND drainage (SNOMED CT 002910575) performed by Jose M Patten MD on 10/08/2017 at 27 Years.Comments:10/08/2017 19:32 - Magda RN, Julieta NI AND D AND IRRIGATION LEFT LOWER BACK ABCESS 10 X 15 CMIncision AND drainage (SNOMED CT 473787684).Comments:10/06/2017 06:12 - Philippe Cabezas RN right hand Social History Social & Psychosocial ExvkoeSxegbfd04/26/2017 Risk Assessment: Denies Alcohol UseSubstance Abuse10/05/2017 Risk Assessment: Denies Substance QwkuqKsgxnca56/26/2017 Risk Assessment: High Risk10/05/2017 Use: Current Every [...] Delarosa MD on October 08, 2017 08:58 [id number], Inpatient, 10/05/2017 - . Condition: Fair. [...] wound VAC. Awaiting precertification by insurance. [facility] Comment on above: Result Comment: Elec tronically Signed By: Sushant DC, Juan Pablo\.br\Date and Time Signed: 10/13/17 11:01 EST Interdisciplinary Note - Brett e Manageron 10-12-2017 Interdisciplinary Note - Exhibit Electrician Daily rounds completed with hospitalist Dr. Canchola, MARY Cuellar, Pharmacist Maryjane, Tangible Personal Property Appraiser Damaris, and Dara THOMPSON present. Patient alert and oriented, involved in POC. Discussed medications, labs, and tests. Await Dr. Patten and ID recommendations. Oral Atbx at d/c. No family present at this time. Patient?s goal is to return home with [facility] at discharge. Anticipated discharge yet to be determined, possibly later today. Contact and goal information updated on white board. [facility] Main OR Intraoperative Recor don 10-12-2017 Main OR Intraoperative Record IntraOp Document Type FT Summary Primary Physician: Jose M Patten MD Finalized Date/Time: 10/12/17 11:18:39 Pt. Name: WILLOW WILKES /Sex: 1990 Male Med Rec #: [id number] Physician: Анна Torres M.D. Financial #: [id number] Pt. Type: I Room/Bed: [place] [address] Admit/Disch: 10/05/17 17:35:00 - Institution: Case Times [...] Role Performed Anesthesiologist of Surgeon - Primary Cattle Dealer - Primary Record Time In 10/08/17 14:16:00 [...] 6 Case Attendee Kenroy ARANGON, RN, Ben HUMAN RESOURCES ASSISTANT MANAGER, Junior Downey RN, CNOR, CRNFA, Yoselin ONC, Sharmaine Role Performed Cattle Dealer - Other Scrub - Primary Cattle Dealer - Other Time In 10/08/17 14:16:00 10/08/17 14:16:00 10/08/17 14:16:00 Time Out 10/08/17 14:46:00 10/08/17 14:46:00 10/08/17 14:46:00 Procedure CYST LESION REMOVAL CYST LESION REMOVAL CYST LESION REMOVAL GENERAL ANES(.) GENERAL ANES(.) GENERAL ANES(.) Comments Last Modified By: Shayan RN, CNOR, CRNFA, Shayan RN, CNOR, CRNFA, Shayan RN, CNOR, CRNFA, ONC, Sharmaine 10/08/17 ONC, Sharmaine 10/08/17 ONC, [facility] 10/08/17 14:46:59 14:46:59 14:46:59 Perioperative Protocols FT [...] Romeo Outcomes Met? Yes Last Modified By: Shayan THOMPSON, ANTHONYOR, CASSIE, ONC, Sharmaine 10/08/17 14:26:07 Post-Care Text: The patient is free from signs and symptoms of injury caused by extraneous objects Allergy Information FT Pre-Care Text: Verifies allergies Entry 1 Allergies Reviewed? Yes Allergies Reviewed Self/Patient With Outcomes Met? Yes Last Modified By: Shayan THOMPSON, ANTHONYOR, CASSIE, ONC, [facility] 10/08/17 14:19:18 Post-Care Text: The patient received [...] Class 4 - Dirty Last Modified By: Shayan THOMPSON, ANTHONYOR, PHONG MATTHEWS [place] 10/08/17 14:47:02 General Case Data FT Pre-Care Text: Classifies surgical wound, implements aseptic technique, initiates traffic control Entry 1 Case Information OR OR 6 FT Case Level Level 2 Wound Class 4 - Dirty Specialty General ASA Class 2 Preop Diagnosis ABCESS LOWER BACK Postop Same As Preop Yes Postop Diagnosis ABCESS LOWER BACK Outcomes Met? Yes Last Modified By: Shayan THOMPSON, ANTHONYOR, PHONG MATTHEWS [place] 10/08/17 14:51:59 Post-Care Text: The patient is free from signs and symptoms of infection Skin Assessment (Pre Procedure) FT Pre-Care Text: Implements protective measures to prevent skin/ tissue injury due to thermal or mechanical sources Evaluates for signs and symptoms of physical injury to skin and tissue Entry 1 Skin Integrity Intact, [place], Warm, and Skin Abnormality Yes Dry Abnormality Location LEFT LOWER BACK Abnormality Type RED AND SWELLING Outcomes Met? Yes Last Modified By: Shayan THOMPSON, ANTHONYOR, PHONG MATTHEWS [place] 10/08/17 14:30:33 Post-Care Text: [...] THOMPSON, Nabil Suero Carly C, Weisenburger BSN, RN, Yoselin Outcomes Met? Yes Last Modified By: Shayan THOMPSON, LUIS, PHONG MATTHEWS [place] 10/08/17 14:20:39 Post-Care Text: The patient is [...] Shayan THOMPSON, CNOR, SIDDHARTHA, Shayan RN, CNOR, CASSIE, Shayan RN, CNOR, CASSIE, ONC, Sharmaine 10/08/17 ONC, [facility] 10/08/17 ONC, [facility] 10/08/17 14:22:12 14:22:12 14:31:18 Entry 4 Equipment Type MISTRAL FORCED AIR WARMING SYSTEM UNIT[F] Equipment Number M [id number] Equipment Setting Outcomes Met? Yes Last Modified By: Shayan THOMPSON, ANTHONYOR, CASSIE, ONC, [facility] 10/08/17 14:36:01 Post-Care Text: The patient [...] Modified By: Shayan THOMPSON, ANTHONYOR, CASSIE, ONC, [facility] 10/08/17 14:20:45 Post-Care Text: The patient is free from signs and symptoms of injury related to transfer/transport Counts Verification FT Pre-Care Text: Performs required counts Entry 1 Procedure(s) CYST LESION REMOVAL Type Initial GENERAL ANES(.) Items Instruments Status Correct Time 10/08/17 14:18:00 By Junior Contreras CST, Weisenburger BSN, Yoselin THOMPSON Outcomes Met? Yes Last Modified By: Shayan THOMPSON, ANTHONYOR, CASSIE, ONC, [facility] 10/08/17 14:21:19 Post-Care Text: The patient is free from signs and symptoms of injury caused by extraneous objects Skin Prep FT Pre-Care Text: Performs skin preparations Entry 1 Procedure CYST LESION REMOVAL Prep Area LOWER LEFT BACK GENERAL ANES(.) Prep Agents Chloraprep/Dry Prior to Draping Hair Removal Methods Not Indicated By Darron Zayas RN Outcomes Met? Yes Last Modified By: Shayan THOMPSON, ANTHONYOR, CASSIE, ONC, [facility] 10/08/17 14:26:30 Post-Care Text: The patient is [...] RN Patient Status Stable Skin. Condition Intact, [place], Warm, and Description EXCEPT FOR OPERATIVE Dry AREA Airway Maintenance Oxygen in Use? Yes Flow Rate 6 Outcomes Met? Yes Last Modified By: LUIS Downey RN, PHONG MATTHEWS [place] 10/08/17 14:33:05 Post-Care Text: The patient [...] LUIS Downey RN, CASSIE, LUIS Downey RN, CASSIE, Sharmaine DARLIGN 10/08/17 Sharmaine DARLING 10/08/17 14:38:26 14:38:26 Post-Care Text: The patient is free from signs and symptoms of infection Medication Administration FT Pre-Care Text: Verifies allergies, administers prescribed medications and solutions, administers prescribed antibiotic therapy and immunizing agents as ordered, evaluates response to medications Administers prescribed medications and solutions Entry 1 Expiration Date Yes Outcomes Met? Yes Verified Last Modified By: LUIS Downey RN, PHONG MATTHEWS [place] 10/08/17 14:21:34 Post-Care Text: The patient received appropriate medication(s) safely administered during the perioperative period For [place] please see scanned medication reconcilliation form for medications used at the field during the procedure. Cultures and Specimens FT Pre-Care Text: Manages specimen handling and disposition Manages culture specimen collection Entry 1 Cultures Ordered Yes Culture Disposition Lab Culture Source LEFT LOWER BACK Frozen Section Times Outcomes Met? Yes Last Modified By: LUIS Downey RN, PHONG MATTHEWS [place] 10/08/17 14:32:08 Post-Care Text: The patient is free from signs and symptoms of injury caused by extraneous objects The patient is free from signs and symptoms of infection Temperature Control Entry 1 Temperature Control BLANKET MISTRAL AIR Quantity 1 Aid PLUS LOWER BODY [[id number]][F] Fluid/[place] Unit Mistral warming system Body Site Lower anterior torso Last Modified By: LUIS Downey RN, CRNFA, ONC, [place] 10/08/17 14:36:32 Case Comments Finalized By: Vi Ambriz CST Document Signatures Signed By: LUIS Downey RN, CRNFA, ONC, [place] 10/08/17 14:52 Vi Ambriz CST 10/12/17 11:18 Normal [facility] Progress Note-Physicianon Progress Note-Physician Patient: WILLOW WILKES Age: 27 years Sex: Male : 1990 Associated Diagnoses: None Author: Donald Cyr M.D Subjective Doing better overall since I&D. Culture with MSSA. Health Status Allergies: Allergic Reactions (Selected)No Known Allergies Current medications: Medications (10) ActiveScheduled: (4)ceFAZolin 2 gram 50 mL, IV Piggyback, r2psylxbhznf sodium 100 mg Cap [F] 100 mg 1 cap(s), Oral, BIDnicotine 14 mg/24 hr Transderm ER Film [F] 14 mg 1 patch(es), TransDermal, DailySodium Chloride 0.9% 500 mL 500 mL, IVContinuous: (1)Lactated Ringers 1,000 mL 1,000 mL, IV, 20 mL/hrPRN: (5)acetaminophen 325 mg Tab UD [F] 650 mg 2 tab(s), Oral, v8zfqcjaagyiy 0.083% Inh Mary 3 mL [F] 2.5 mg 3 mL, NEB, k9konljshkpxj CFC free 90 mcg/inh Inh Aer w/Adapt 8.5 gm [F] 180 microgram 2 puff(s), Inhalation, k4gxpojlobae 2 mg/mL preservative-free SOLN [F] 4 mg 2 mL, IV Push, u2tmjlxogxrrrte 2 mg/mL Inj [F] 4 mg 2 mL, IV Push, q6hr Problem list: All ProblemsAt risk for falls / SNOMED CT 532493692 / PossibleProblem added when Risk for Falls Careplan was initiated.Impaired skin integrity / SNOMED CT 27425273 / ConfirmedProblem added on documentation of skin impairments.Smoker / IMO [id number] / ConfirmedAdded secondary to documentation in Social [...] 2-3 weeks. Wound care per surgery.. Normal [facility] Comment on above: Result Comment: Elec tronically Signed By: Donald Cyr M.D.pretty\Date and Time Signed: 10/12/17 16:12 EST Progress [...] (4)ceFAZolin 2 gram 50 mL, IV Piggyback, p8nremzttfnw sodium 100 mg Cap [F] 100 mg 1 cap(s), Oral, BIDnicotine 14 mg/24 hr Transderm ER Film [F] 14 mg 1 patch(es), TransDermal, DailySodium Chloride 0.9% 500 mL 500 mL, IVContinuous: (1)Lactated Ringers 1,000 mL 1,000 mL, IV, 20 mL/hrPRN: (5)acetaminophen 325 mg Tab UD [F] 650 mg 2 tab(s), Oral, f6kvneyvdauvt 0.083% Inh Mary 3 mL [F] 2.5 mg 3 mL, NEB, y5byakgkvbkcx CFC free 90 mcg/inh Inh Aer w/Adapt 8.5 gm [F] 180 microgram 2 puff(s), Inhalation, l0ypikzpicca 2 mg/mL preservative-free SOLN [F] 4 mg 2 mL, IV Push, g0wccrrosamqeqc 2 mg/mL Inj [F] 4 mg 2 mL, IV Push, q6hr Problem list: All ProblemsImpaired skin integrity / SNOMED CT 76199205 / ConfirmedProblem added on documentation of skin impairments.At risk for falls / SNOMED CT 803796500 / PossibleProblem added when Risk for Falls Careplan was initiated.Smoker / IMO [id number] / ConfirmedAdded secondary to documentation in Social History.Resolved: Asthma / SNOMED CT 335676262 Histories Past Medical History: ResolvedAsthma ([id number]): Resolved. Family History: AsthmaMother Procedure history: Incision AND drainage (SNOMED CT 210667864) performed by Jose M Patten MD on 10/08/2017 at 27 Years.Comments:10/08/2017 19:32 - Magda RN, Julieta IGLESIAS AND Musa AND IRRIGATION LEFT LOWER BACK ABCESS 10 X 15 CMIncision AND drainage (SNOMED CT 181075677).Comments:10/06/2017 06:12 - Raulito THOMPSON, Philippe right hand Social History Social & Psychosocial BzmcufNutxnzl30/26/2017 Risk Assessment: Denies Alcohol UseSubstance Abuse10/05/2017 Risk Assessment: Denies Substance IkyrhBddqayy31/26/2017 Risk Assessment: High Risk10/05/2017 Use: Current Every Day Smoker Type: Cigarettes Tobacco use per day: 0.5. Objective VS/Measurements: Vitals Signs (last 24 hrs) Last Charted Minimum MaximumTemp 36.6 (OCT 12 07:00) 36.5 (OCT 11:57) 36.9 (OCT 11:00)Heart Rate 80 (OCT 12 07:00) 77 (OCT [...] 19:57)SpO2 98 (OCT 11 23:00) 97 (OCT 11:58) 98 (OCT 11:00). Vitals Signs (last 24 hrs) Last Charted Minimum MaximumTemp 36.6 (OCT 12 07:00) 36.5 (OCT 11 19:57) 36.9 (OCT 11:00)Heart Rate 80 (OCT 12 07:00) 77 (OCT 11:58) 91 (OCT 11:00)Resp Rate 16 (OCT 12 07:00) 16 (OCT 11 15:00) 17 (OCT 11 23:00)SBP 100 (OCT 12 06:45) 100 (OCT 12 06:45) 117 (OCT 11 15:00)DBP 80 (OCT 12 06:45) L 53 (OCT 11 19:57) 80 (OCT 12 06:45)MAP 70 (OCT 11 19:57) 70 (OCT 11 19:57) 70 (OCT 11 19:57)SpO2 98 (OCT 11:00) 97 (OCT 11:58) 98 (OCT 11:00) General: Alert and oriented, No acute distress. [...] Delarosa MD on October 08, 2017 08:58 [facility] info: [id number], [facility], Inpatient, 10/05/2017 - . Condition: Fair. [...] soon pending Wound Vac change today. Normal [facility] Comment on above: Result Comment: Elec tronically Signed By: Sushant DC, Juan Pablo\.br\Date and Time Signed: 10/12/17 11:24 EST Progress [...] (4)ceFAZolin 2 gram 50 mL, IV Piggyback, y6vmhbniiuqc sodium 100 mg Cap [F] 100 mg 1 cap(s), Oral, BIDnicotine 14 mg/24 hr Transderm ER Film [F] 14 mg 1 patch(es), TransDermal, DailySodium Chloride 0.9% 500 mL 500 mL, IVContinuous: (1)Lactated Ringers 1,000 mL 1,000 mL, IV, 20 mL/hrPRN: (6)acetaminophen 325 mg Tab UD [F] 650 mg 2 tab(s), Oral, e9mldnuuzvzgm 0.083% Inh Mary 3 mL [F] 2.5 mg 3 mL, NEB, e5jchqkfuazbc CFC free 90 mcg/inh Inh Aer w/Adapt 8.5 gm [F] 180 microgram 2 puff(s), Inhalation, s3qmqyviazbqc 30 mg/mL Inj 1 mL [F] 30 mg 1 mL, IV, n9uhffbiamfq 10 mg/mL preservative-free SOLN [F] 4 mg 0.4 mL, IV Push, j5zcxftryvzzslg 2 mg/mL Inj [F] 4 mg 2 mL, IV Push, q6hr Problem list: All ProblemsImpaired skin integrity / SNOMED CT 24417684 / ConfirmedProblem added on documentation of skin impairments.Smoker / IMO [id number] / ConfirmedAdded secondary to documentation in Social History.Resolved: Asthma / SNOMED CT 768042603 Histories Past Medical History: ResolvedAsthma ([id number]): Resolved. Family History: AsthmaMother Procedure history: Incision AND drainage (SNOMED CT 468670318) performed by Jose M Patten MD on 10/08/2017 at 27 Years.Comments:10/08/2017 19:32 - Magda RN, Julieta IGLESIAS AND D AND IRRIGATION LEFT LOWER BACK ABCESS 10 X 15 CMIncision AND drainage (SNOMED CT 297840531).Comments:10/06/2017 06:12 - Raulito THOMPSON, Philippe right hand Social History Social & Psychosocial GaovbdVumipbm39/26/2017 Risk Assessment: Denies Alcohol UseSubstance Abuse10/05/2017 Risk Assessment: Denies Substance UgyswBmpdvgr91/26/2017 Risk Assessment: High Risk10/05/2017 Use: Current Every Day Smoker Type: Cigarettes Tobacco use per day: 0.5. Objective VS/Measurements: Vitals Signs (last 24 hrs) Last Charted Minimum MaximumTemp 36.6 (OCT 11 08:00) 36.6 (OCT 11 01:34) 37 (OCT 10 20:12)Heart Rate 73 (OCT [...] Delarosa MD on October 08, 2017 08:58 [facility] info: [id number], [facility], Inpatient, 10/05/2017 - . Condition: Fair. [...] pending Wound Vac change on 10/12/17 Normal [facility] Comment on above: Result Comment: Elec tronically Signed By: Sushant DC, Juan Pablo\.br\Date and Time Signed: 10/11/17 12:43 EST Auto Diffon 10-10-2017 Basophils Auto #/vol (Bld) 0.1 E9/L Normal 0.0-0.2 [facility] Comment on above: Order Comment: Order Added by Margo Expert. Performed By: #### 1 6002729, 0274363, 08031142, 1157757, 82135794, 4351486, 4161946 ####[facility] [address] [place] [address] Basophils Auto #/vol (Bld) 0.9 % Normal 0.0-2.0 [facility] Comment on above: Order Comment: Order Added by Margo Expert. Performed By: #### 1 5516199, 3491532, 26843985, 8476288, 90474174, 5357244, 5078590 ####[facility] [address] [place] [address] Eosinophils 0.7 E9/L High 0.0-0.5 [facility] Comment on above: Order Comment: Order Added by Margo Expert. Performed By: #### 1 6637796, 9857954, 72976701, 0188892, 96234938, 2552709, 4696906 ####[facility] [address] [place] [address] Eosinophils/100 leukocytes 7.4 % Normal 0.0-8.0 [facility] Comment on above: Order Comment: Order Added by Margo Expert. Performed By: #### 1 4222953, 8839088, 18458446, 3574774, 73496388, 0586159, 3537502 ####[place] [place] [address] Lymphocytes 2.4 E9/L Normal 1.0-4.0 [facility] Comment on above: Order Comment: Order Added by Margo Expert. Performed By: #### 1 9163118, 9887163, 13885661, 9824474, 88651815, 2780978, 3086012 ####[facility] [address] [place] [address] Lymphocytes/100 leukocytes 25.6 % Normal 14.0-50.0 [facility] Comment on above: Order Comment: Order Added by Margo Expert. Performed By: #### 1 3609693, 2406479, 15598047, 3114492, 39258674, 4362893, 2363766 ####[facility] [address] [place] [address] Monocytes 0.9 E9/L Normal 0.2-1.0 [facility] Comment on above: Order Comment: Order Added by Discern Expert. Performed By: #### 1 4049522, 9209127, 91925729, 6896360, 31917173, 7664769, 6188074 ####[address] [place] [address] Monocytes/100 leukocytes 9.9 % Normal 4.0-14.0 [facility] Comment on above: Order Comment: Order Added by Margo Expert. Performed By: #### 1 9857909, 7776952, 20919551, 4755442, 59435174, 9163455, 4629635 ####[address] [place] [address] Neutrophils 5.3 E9/L Normal 2.0-7.5 [facility] Comment on above: Order Comment: Order Added by Margo Expert. Performed By: #### 1 3697168, 0694341, 85407248, 7696593, 50449157, 1060153, 7171695 ####[address] [place] [address] Neutrophils/100 leukocytes 56.2 % Normal 36.0-75.0 [facility] Comment on above: Order Comment: Order Added by Discern Expert. Performed By: #### 1 7972102, 2753253, 06021174, 5317955, 62149562, 1424905, 9876610 ####[address] [address] [address] [place] 10-10-2017 Wound Culture MicrobiologyPROCEDUR E: [...] SPerforming LocationsR1: This test was performed at: [facility], [address] [place] [address], [address] , Normal [facility] Comment on above: Performed By: #### 1 3180109, 4599067, 59172101, 6724081, 18588884, 2070074, 5112281 ####[facility] [address] [place] [address] CBC w/ Auto Diffon Erythrocyte distribution width Auto Ratio (RBC) 13.3 % Normal 10.9-14.2 [facility] Comment on above: Performed By: #### 1 7779818, 4314432, 15852919, 5226712, 90346820, 3988221, 7447610 ####[facility] [address] [place] [address] Erythrocytes (RBC) 3.4 E12/L Low 4.3-5.9 [facility] Comment on above: Performed By: #### 1 1872945, 7453668, 19694663, 3833996, 34298818, 0828707, 4400838 ####[address] [place] [address] Hematocrit (HCT) 31.1 % Low 37.7-49.0 [facility] Comment on above: Performed By: #### 1 3476452, 5463752, 65054772, 1221115, 07263278, 0285664, 4769448 ####[address] [place] [address] Hemoglobin mass conc (Bld) 10.8 g/dL Low 13.5-17.5 [facility] Comment on above: Performed By: #### 1 6501148, 5673395, 93662860, 0601943, 53486219, 1942997, 1976223 ####[facility] [address] [place] [address] MCH 31.9 pg Normal 27.0-34.0 [facility] Comment on above: Performed By: #### 1 5062468, 2204309, 88388664, 0443189, 94980258, 7586327, 0072984 ####[address] [place] [address] MCHC mass conc (RBC) 34.6 g/dL Normal 31.4-39.3 [facility] Comment on above: Performed By: #### 1 5348521, 2084809, 18021168, 3026637, 17938628, 4252272, 7389418 ####[address] [place] [address]357 MCV 92.1 fL Normal 80.0-100.0 [facility] Comment on above: Performed By: #### 1 5291884, 8916614, 93263343, 8090843, 33954827, 1880591, 9419442 ####[address] [address] Platelet mean volume (PMV) 6.8 fL Normal 6.4-10.8 [facility] Comment on above: Performed By: #### 1 9215629, 8556693, 19021006, 5453017, 89210696, 7310865, 3435567 ####[address] [address] Platelets 497.0 E9/L Normal 150.0-500. 0 [facility] Comment on above: Performed By: #### 1 1725677, 8943051, 58655720, 3404565, 88785260, 5797776, 0449939 ####[address] [place] [address] WBC (Leukocytes) 9.4 E9/L Normal 4.0-11.0 [facility] Comment on above: Result Comment: Slid e reviewed by JAMES. Performed By: #### 1 5625864, 0731531, 99484413, 3891296, 34378425, 1985815, 3728418 ####[facility] [address] [place] [address] Consultation Noteon 10-10-20 Consultation Note HOSPITAL REGULATIONS : ALL Positive Important Negative Findings Shall Be Recorded.Date of 10/08/2017Consultation:Sherrietori sophia Luis F Benavides D.O.Physician:Consulting Jose M Patten MD, FACSPhysician:REASON [...] anesthesia today.Jose M Patten MD, FACSaekDictated: 10/08/2017 #[id number]: 10/09/2017 #[id number]: Alexandre Harding M.D.Jose M Patten MD, FACS [facility] Comment on above: Result Comment: Elec tronically Signed By: Sandor DC, Jose M Camilo\.br\Date and Time Signed: 10/10/17 16:08 EST Interdisciplinary Note - Brett e Manageron 10-10-2017 Interdisciplinary Note - Exhibit Electrician Spoke to Dr. Canchola who anticipates pt. to stay till Wednesday. I spoke to pt. regarding [facility] and a home wound vac and he is agreable and understands the homebound status. Referral sent to resource center. [facility] Interdisciplinary Note - Nut ritionon 10-10-2017 Interdisciplinary [...] this time. PO encouraged. Nutrition POC implemented. [facility] Operative Reporton 7 Operative Report Date of [...] I was able to contact [facility] and they were able to remove the packing and place aWound VAC in the Recovery Room to further aid in healing of this largeabscess cavity. This was all tolerated well by the patient.Jose M Patten MD, FACSglsDictated: 10/08/2017 #[id number]: 10/09/2017 #[id number]: Myra Middleton M.D.Jose M Patten MD, FACS [facility] Comment on above: Result Comment: Elec tronically Signed By: Sandor DC, Jose M Camilo\.br\Date and Time Signed: 10/10/17 16:08 EST Progress [...] as bad as it did on Wednesday. [facility] Progress Note-Physicianon Progress Note-Physician Patient: WILLOW WILKES Age: 27 years Sex: Male : 1990 Associated Diagnoses: None Author: Sushant DC, Mbanefo Basic Information 27-year-old male with no significant [...] (4)ceFAZolin 2 gram 50 mL, IV Piggyback, x9mqdpsfptkq sodium 100 mg Cap [F] 100 mg 1 cap(s), Oral, BIDnicotine 14 mg/24 hr Transderm ER Film [F] 14 mg 1 patch(es), TransDermal, DailySodium Chloride 0.9% 500 mL 500 mL, IVContinuous: (1)Lactated Ringers 1,000 mL 1,000 mL, IV, 75 mL/hrPRN: (6)acetaminophen 325 mg Tab UD [F] 650 mg 2 tab(s), Oral, m9axspnfafnnp 0.083% Inh Mary 3 mL [F] 2.5 mg 3 mL, NEB, o5yauoryvgnce CFC free 90 mcg/inh Inh Aer w/Adapt 8.5 gm [F] 180 microgram 2 puff(s), Inhalation, m5qhltzdwawdo 30 mg/mL Inj 1 mL [F] 30 mg 1 mL, IV, g1vlwakuvdsk 10 mg/mL preservative-free SOLN [F] 4 mg 0.4 mL, IV Push, y3sxmojszajvdby 2 mg/mL Inj [F] 4 mg 2 mL, IV Push, q6hr Problem list: All ProblemsImpaired skin integrity / SNOMED CT 34860255 / ConfirmedProblem added on documentation of skin impairments.Smoker / IMO [id number] / ConfirmedAdded secondary to documentation in Social History.Resolved: Asthma / SNOMED CT 373896955 Histories Past Medical History: ResolvedAsthma ([id number]): Resolved. Family History: AsthmaMother Procedure history: Incision AND drainage (SNOMED CT 612315235) performed by Jose M Patten MD on 10/08/2017 at 27 Years.Comments:10/08/2017 19:32 - Magda RN, Julieta IGLESIAS AND D AND IRRIGATION LEFT LOWER BACK ABCESS 10 X 15 CMIncision AND drainage (SNOMED CT 620536879).Comments:10/06/2017 06:12 - Philippe Cabezas RN right hand Social History Social & Psychosocial OdntppZqwuqzv52/26/2017 Risk Assessment: Denies Alcohol UseSubstance Abuse10/05/2017 Risk Assessment: Denies Substance PexuqChdckfx66/26/2017 Risk Assessment: High Risk10/05/2017 Use: Current Every Day Smoker Type: Cigarettes Tobacco use per day: 0.5. Objective VS/Measurements: Vitals Signs (last 24 hrs) Last Charted Minimum MaximumTemp 36.8 (OCT 10:) 36.5 (OCT 09 15:37) 36.8 (OCT 10:)Heart Rate 77 (OCT 10 07:00) 77 (OCT 10 07:00) 94 (OCT 09 19:30)Resp Rate 18 (OCT 10:) 16 (OCT 09:13) 20 (OCT 10:)SBP H 147 (OCT 10:00) 106 (OCT 09:) H 147 (OCT 10:)DBP 63 (OCT 10:) L 59 (OCT 09:) 72 (OCT 10:)MAP 91 (OCT 10:00) 75 (OCT 09 19:29) 91 (OCT 10 07:00)SpO2 99 (OCT 10:00) 96 (OCT 09 17:13) 99 (OCT 10:00). Vitals Signs (last 24 hrs) Last Charted Minimum MaximumTemp 36.8 (OCT 10:00) 36.5 (OCT 09 15:37) 36.8 (OCT 10:)Heart Rate 77 (OCT 10 07:00) 77 (OCT 10 07:00) 94 (OCT 09 19:30)Resp Rate 18 (OCT 10:) 16 (OCT 09 17:13) 20 (OCT 10:)SBP H 147 (OCT 10:) 106 (OCT 09 19:) H 147 (OCT 10:)DBP 63 (OCT 10:) [...] Auto 56.2 % Lymph Auto 25.6 % Dougherty Auto 9.9 % Eos Auto 7.4 % Basophil Auto 0.9 % Neutro Absolute 5.3 E9/L Lymph Absolute 2.4 E9/L Dougherty Absolute 0.9 E9/L Eos Absolute 0.7 E9/L [...] Delarosa MD on October 08, 2017 08:58 [facility] info: [id number], [facility], Inpatient, 10/05/2017 - . Condition: [...] and Wound Vac change on 10/12/17 Normal [facility] Comment on above: Result Comment: Elec tronically Signed By: Sushant DC, Juan Pablo\.br\Date and Time Signed: 10/10/17 11:42 EST Auto Diffon 10-09-2017 Basophils Auto #/vol (Bld) 0.1 E9/L Normal 0.0-0.2 [facility] Comment on above: Order Comment: Order Added by Discern Expert. Performed By: #### 1 2398686, 6707173, 07243405, 6961302, 43967202, 1116660, 2643184 ####[facility] [address] [place] [address] Basophils Auto #/vol (Bld) 0.4 % Normal 0.0-2.0 [facility] Comment on above: Order Comment: Order Added by Discern Expert. Performed By: #### 1 0074656, 7325821, 90641195, 2290639, 62797408, 9902276, 1121473 ####[facility] [address] [place] [address] Eosinophils 0.1 E9/L Normal 0.0-0.5 [facility] Comment on above: Order Comment: Order Added by Discern Expert. Performed By: #### 1 3777513, 6858173, 97861858, 5075452, 59455557, 1576804, 3952582 ####[facility] [address] [place] [address] Eosinophils/100 leukocytes 0.8 % Normal 0.0-8.0 [facility] Comment on above: Order Comment: Order Added by Discern Expert. Performed By: #### 1 2537662, 1562092, 38280720, 3528170, 77595241, 3820656, 6095846 ####[facility] [address] [place] [address] Lymphocytes 1.3 E9/L Normal 1.0-4.0 [facility] Comment on above: Order Comment: Order Added by Margo Expert. Performed By: #### 1 1258175, 3995255, 82341488, 9199412, 79228878, 5420705, 8731686 ####[facility] [address] [place] [address] Lymphocytes/100 leukocytes 8.2 % Low 14.0-50.0 [facility] Comment on above: Order Comment: Order Added by Margo Expert. Performed By: #### 1 8847673, 7304718, 00938404, 0576439, 52201141, 7116481, 6420439 ####[facility] [address] [place] [address] Monocytes 1.2 E9/L High 0.2-1.0 [facility] Comment on above: Order Comment: Order Added by Margo Expert. Performed By: #### 1 2345395, 7970444, 14039848, 3556868, 03855157, 5974046, 4923809 ####[facility] [address] [place] [address] Monocytes/100 leukocytes 8.0 % Normal 4.0-14.0 [facility] Comment on above: Order Comment: Order Added by Margo Expert. Performed By: #### 1 7590609, 6281177, 58887384, 0113459, 34478299, 0522946, 0779198 ####[facility] [address] [place] [address] Neutrophils 12.7 E9/L High 2.0-7.5 [facility] Comment on above: Order Comment: Order Added by Margo Expert. Performed By: #### 1 4828561, 8257922, 76278683, 8310009, 73510802, 5012551, 0340214 ####[facility] [address] [place] [address] Neutrophils/100 leukocytes 82.6 % High 36.0-75.0 [facility] Comment on above: Order Comment: Order Added by Margo Expert. Performed By: #### 1 7347203, 2882544, 82860826, 9328297, 27102281, 0666279, 2269734 ####[place] [address] [place] [address]357 CBC w/ Auto Diffon Erythrocyte distribution width Auto Ratio (RBC) 13.2 % Normal 10.9-14.2 [facility] Comment on above: Performed By: #### 1 5563708, 0198231, 10295172, 5855748, 74488656, 3803288, 4309385 ####[place] [address] [place] [address] Erythrocytes (RBC) 3.6 E12/L Low 4.3-5.9 [facility] Comment on above: Performed By: #### 1 2705470, 9901014, 85313189, 1373247, 38709506, 7949842, 7917302 ####[place] [address] Hematocrit (HCT) 32.3 % Low 37.7-49.0 [facility] Comment on above: Performed By: #### 1 4578554, 7334405, 04753730, 8129348, 95953578, 5588128, 9927122 ####[place] [address] [place] [address] Hemoglobin mass conc (Bld) 11.0 g/dL Low 13.5-17.5 [facility] Comment on above: Performed By: #### 1 2827092, 4268172, 37542858, 1057941, 48411604, 1100853, 2113396 ####[place] [place] [address] MCH 31.0 pg Normal 27.0-34.0 [facility] Comment on above: Performed By: #### 1 7839907, 4265764, 05502044, 7132454, 50811014, 0058884, 6824524 ####[place] [address] MCHC mass conc (RBC) 34.1 g/dL Normal 31.4-39.3 [facility] Comment on above: Performed By: #### 1 0145669, 9948041, 94696996, 9902215, 03038581, 0916547, 1028275 ####[facility] [address] [place] [address] MCV 91.0 fL Normal 80.0-100.0 [facility] Comment on above: Performed By: #### 1 7339734, 0635734, 42261772, 0533689, 25569271, 7552741, 5482012 ####[facility] [address] [place] [address] Platelet mean volume (PMV) 7.1 fL Normal 6.4-10.8 [facility] Comment on above: Performed By: #### 1 1867956, 1838124, 35518544, 7976382, 59262540, 0116769, 5957427 ####[facility] [address] [place] [address] Platelets 429.0 E9/L Normal 150.0-500. 0 [facility] Comment on above: Performed By: #### 1 1190432, 9103446, 61440640, 7572279, 25089922, 1980822, 7505987 ####[facility] [address] [place] [address] WBC (Leukocytes) 15.4 E9/L High 4.0-11.0 [facility] Comment on above: Result Comment: Slid e reviewed by AC. Performed By: #### 1 4936071, 8210480, 06830227, 3490332, 23183193, 1106510, 5233614 ####[facility] [address] [place] [address] Progress Note-Physicianon Progress Note-Physician Patient: WILLOW WILKES Age: 27 years Sex: Male : 1990 Associated Diagnoses: None Author: Sushant DC, [facility] Basic Information 27-year-old male with no significant [...] mL 493 mg 0.99 EA, IV Piggyback, i29jjynlutkca 14 mg/24 hr Transderm ER Film [F] 14 mg 1 patch(es), TransDermal, Dailypiperacillin-tazobactam 3 g-0.375 g 3.375 gram 1 EA, IV Piggyback, i8fqVchfvbgjcx: (1)Lactated Ringers 1,000 mL 1,000 mL, IV, 75 mL/hrPRN: (6)acetaminophen 325 mg Tab UD [F] 650 mg 2 tab(s), Oral, n2qiutqdkzrpa 0.083% Inh Mary 3 mL [F] 2.5 mg 3 mL, NEB, b0rscsysnxowx CFC free 90 mcg/inh Inh Aer w/Adapt 8.5 gm [F] 180 microgram 2 puff(s), Inhalation, n0irrnwdbjtyt 30 mg/mL Inj 1 mL [F] 30 mg 1 mL, IV, z9yedcqlqnsk 10 mg/mL preservative-free SOLN [F] 4 mg 0.4 mL, IV Push, h2umaegkhigfrvs 2 mg/mL Inj [F] 4 mg 2 mL, IV Push, q6hr Problem list: All ProblemsImpaired skin integrity / SNOMED CT 91465790 / ConfirmedProblem added on documentation of skin impairments.Smoker / IMO [id number] / ConfirmedAdded secondary to documentation in Social History.Resolved: Asthma / SNOMED CT 857059040 Histories Past Medical History: ResolvedAsthma ([id number]): Resolved. Family History: AsthmaMother Procedure history: Incision AND drainage (SNOMED CT 458383058) performed by Jose M Patten MD on 10/08/2017 at 27 Years.Comments:10/08/2017 19:32 - Magda RN, Julieta NI AND D AND IRRIGATION LEFT LOWER BACK ABCESS 10 X 15 CMIncision AND drainage (SNOMED CT 955485451).Comments:10/06/2017 06:12 - Raulito THOMPSON, Philippe right hand Social History Social & Psychosocial FhshemRbxiqkg93/26/2017 Risk Assessment: Denies Alcohol UseSubstance Abuse10/05/2017 Risk Assessment: Denies Substance WsphwGifissf09/26/2017 Risk Assessment: High Risk10/05/2017 Use: Current Every [...] 05:00) 37.3 (OCT 08 11:27)Heart Rate 84 (DEC 30 07:34) 84 (OCT 09 07:34) 114 (OCT 08 14:35)Resp Rate 18 (OCT 09:34) 1 (OCT 08 14:20) 41 (OCT 08 14:30)SBP 113 (OCT 09:33) 87 (OCT 08 14:40) H 141 (OCT [...] % HI Lymph Auto 8.2 % LOW Dougherty Auto 8.0 % Eos Auto 0.8 % Basophil Auto 0.4 % Neutro Absolute 12.7 E9/L HI Lymph Absolute 1.3 E9/L Dougherty Absolute 1.2 E9/L HI Eos Absolute 0.1 [...] (Electronic Signature): 10/08/2017 8:58 amSigned by: Yury Dealrosa MDTranscribed by: JENNIFFER Technologist: CHUCK TODDThis document has an imageResult type: US Abdomen, LimitedResult date: October 07, 2017 18:20 ESTResult status: Auth (Verified)Result title: US Abdomen, LimitedPerformed by: Yury Delarosa MD on October 08, 2017 08:58 ESTVerified by: Yury Delarosa MD on October 08, 2017 08:58 [facility] [id number][facility] - . Condition: Fair. Impression [...] and Wound Vac change on 10/12/17 [facility] Comment on above: Result Comment: Elec tronically [...] in place. Wound Clinic staff to change 10/12.Continue IV ATB. Wound care per Wound Clinic.Will follow as needed. [facility] Comment on above: Result Comment: Elec tronically Signed By: Sandor DC, Jose M Camilo\.br\Date and Time Signed: 10/09/17 07:53 EST Vanco Troughon 10-09-2017 VANCOMYCIN <4 Low 10-20 [facility] Comment on above: Result Comment: Resu lts verified by dilution. Performed By: #### 1 5219583, 6728434, 77975434, 6731745, 42265335, 1575829, 0169230 ####[facility] [address] [place] [address] Dino 10-08-2017 Alanine aminotransferase (ALT) 63 Int._Unit/L High 6-46 [facility] Comment on above: Performed By: #### 1 1472564, 7597259, 65177944, 5669361, 12447350, 3744622, 8093601 ####[facility] [address] [place] [address] Navid 10-08-2017 Aspartate aminotransferase (AST) 37 Int._Unit/L Normal 5-43 [facility] Comment on above: Performed By: #### 1 0187770, 6505487, 85541656, 4722697, 36944992, 1968741, 1130429 ####[place] [address] [place] [address] Auto Diffon 10-08-2017 Basophils Auto #/vol (Bld) 0.1 E9/L Normal 0.0-0.2 [facility] Comment on above: Order Comment: Order added by Discern Expert. Performed By: #### 1 4021090, 4084786, 55677707, 9664728, 08443294, 1003978, 7393262 ####[address] [address] Basophils Auto #/vol (Bld) 0.5 % Normal 0.0-2.0 [facility] Comment on above: Order Comment: Order added by Discern Expert. Performed By: #### 1 3300679, 7302363, 20832071, 0362257, 77819440, 2833223, 6231137 ####[address] [address] Eosinophils 0.9 E9/L High 0.0-0.5 [facility] Comment on above: Order Comment: Order added by Discern Expert. Performed By: #### 1 8976015, 3524865, 63809282, 3893386, 64994234, 7468786, 6329505 ####[address] [address] Eosinophils/100 leukocytes 5.6 % Normal 0.0-8.0 [facility] Comment on above: Order Comment: Order added by Discern Expert. Performed By: #### 1 5631792, 1502368, 73508473, 5069418, 92520677, 2921375, 8274320 ####[place] [address] [place] [address] Lymphocytes 1.5 E9/L Normal 1.0-4.0 [facility] Comment on above: Order Comment: Order added by Discern Expert. Performed By: #### 1 8643978, 8144917, 28494823, 8805537, 64055759, 6600007, 3496125 ####[place] [address] [place] [address] Lymphocytes/100 leukocytes 9.3 % Low 14.0-50.0 [facility] Comment on above: Order Comment: Order added by Discern Expert. Performed By: #### 1 1933667, 3430299, 07045104, 4461021, 88525042, 7087176, 1549430 ####[place] [address] [place] [address] Monocytes 1.9 E9/L High 0.2-1.0 [facility] Comment on above: Order Comment: Order added by Margo Expert. Performed By: #### 1 3779004, 4756172, 94602714, 3972642, 09659417, 0306241, 6395134 ####[address] [address] Monocytes/100 leukocytes 12.0 % Normal 4.0-14.0 [facility] Comment on above: Order Comment: Order added by Margo Expert. Performed By: #### 1 5213918, 6349857, 17424098, 4458279, 14512929, 4847689, 9908997 ####[place] [address] [place] [address] Neutrophils 11.5 E9/L High 2.0-7.5 [facility] Comment on above: Order Comment: Order added by Margo Expert. Performed By: #### 1 2197855, 1231207, 67901923, 2559760, 01685160, 1046993, 9518316 ####[place] [address] [place] [address] Neutrophils/100 leukocytes 72.6 % Normal 36.0-75.0 [facility] Comment on above: Order Comment: Order added by Margo Expert. Performed By: #### 1 1188180, 9379393, 49109301, 1207349, 35902957, 3115699, 0499784 ####[address] [place] [address] BMPon 10-08-2017 Anion gap 9 mmol/L Normal 6-16 [facility] Comment on above: Performed By: #### 1 7340065, 3225678, 33253842, 8998949, 02885105, 2003340, 6054269 ####[facility] [address] [place] [address] BUN/Creatinine Ratio 9 No Units Low 10-20 [facility] Comment on above: Performed By: #### 1 4512116, 5707077, 58466944, 1855934, 26464366, 9642860, 1721950 ####[facility] [address] [place] [address] Calcium 8.2 mg/dL Low 8.9-11.1 [facility] Comment on above: Performed By: #### 1 6104022, 4149312, 03544950, 1325566, 05260333, 0317632, 0927946 ####[facility] [address] [place] [address] Chloride 103 mmol/L Normal 101-111 [facility] Comment on above: Performed By: #### 1 3333739, 4569808, 88636204, 2584036, 35093606, 0271248, 0223634 ####[facility] [address] [place] [address] CO2 28 mmol/L Normal 21-31 [facility] Comment on above: Performed By: #### 1 8047386, 4215012, 20330191, 3327265, 31018140, 2201937, 1154188 ####[facility] [address] [place] [address] Creatinine 0.8 mg/dL Normal 0.5-1.3 [facility] Comment on above: Performed By: #### 1 2315291, 0852892, 98679920, 0166274, 37512135, 5300811, 0503291 ####[facility] [address] [place] [address] Glucose mass conc 98 mg/dL Normal 55-199 [facility] Comment on above: Result Comment: If t his glucose result represents a fasting glucose, interpretation should refer to the following reference range: 55-99 mg/dL Performed By: #### 1 3460793, 6550554, 36651756, 2126666, 57726846, 4508015, 5370285 ####[facility] [address] [place] [address] Potassium molar conc 4.0 mmol/L Normal 3.5-5.3 [facility] Comment on above: Performed By: #### 1 0769728, 7055843, 17056766, 2786186, 52825964, 0974974, 1380598 ####[facility] [address] [place] [address] Sodium 136 mmol/L Normal 135-145 [facility] Comment on above: Performed By: #### 1 2618144, 6162751, 55629688, 5741082, 85936957, 2761648, 5832938 ####[facility] [address] [place] [address] Urea nitrogen 7 mg/dL Normal 5-21 [facility] Comment on above: Performed By: #### 1 6340580, 4692385, 34393729, 7698572, 58174487, 7521830, 0216406 ####[facility] [address] [place] [address] CBC w/ Auto Diffon 7 Erythrocyte distribution width Auto Ratio (RBC) 13.4 % Normal 10.9-14.2 [facility] Comment on above: Performed By: #### 1 2476598, 0372239, 96335812, 2884586, 56795551, 2801203, 6554094 ####[facility] [address] [place] [address] Erythrocytes (RBC) 3.7 E12/L Low 4.3-5.9 [facility] Comment on above: Performed By: #### 1 2887584, 6107088, 16914812, 4637012, 47824903, 6889267, 0334813 ####[place] [address] [place] [address] Hematocrit (HCT) 34.5 % Low 37.7-49.0 [facility] Comment on above: Performed By: #### 1 4763036, 9996243, 38705198, 6543674, 34251482, 8613095, 0475351 ####[place] [address] [place] [address] Hemoglobin mass conc (Bld) 12.1 g/dL Low 13.5-17.5 [facility] Comment on above: Performed By: #### 1 8481798, 0921536, 58241738, 8723225, 45290917, 4151990, 4839268 ####[place] [address] MCH 32.3 pg Normal 27.0-34.0 [facility] Comment on above: Performed By: #### 1 2525300, 4068584, 59250357, 0855927, 22119352, 2894732, 3070004 ####[place] [address] [place] 6[address]357 MCHC mass conc (RBC) 34.9 g/dL Normal 31.4-39.3 [facility] Comment on above: Performed By: #### 1 3500537, 0163384, 13055082, 8706611, 13351260, 5884962, 4113180 ####[place] [address] [place] 6[address]357 MCV 92.4 fL Normal 80.0-100.0 [facility] Comment on above: Performed By: #### 1 6336290, 2643138, 16733572, 3937997, 16896796, 7734478, 5400548 ####[place] [address] [place] [address] Platelet mean volume (PMV) 6.6 fL Normal 6.4-10.8 [facility] Comment on above: Performed By: #### 1 2094142, 0228339, 42131645, 9156591, 85986056, 9513353, 9506595 ####[facility] [address] [place] [address] Platelets 342.0 E9/L Normal 150.0-500. 0 [facility] Comment on above: Performed By: #### 1 1765214, 3522593, 58810808, 1290232, 25391872, 9771161, 0350259 ####[facility] [address] [place] [address] WBC (Leukocytes) 15.9 E9/L High 4.0-11.0 [facility] Comment on above: Performed By: #### 1 3409628, 5499416, 17609295, 0836696, 69635334, 7324452, 5042161 ####[facility] [address] [place] [address] Consultation Noteon 10-08-20 17 Consultation Note Patient: Alexx WILKES Age: 27 years Sex: Male : 1990 Associated Diagnoses: None Author: Donald Cyr M.D Chief Complaint 10/05/2017 18:24 EST pain in mid back to hip. ongoing X2 weeks. was seen in [place] [facility] but was told it was just muscle spasms. xray and urin were obtained in [place]. History of Present Illness Patient with back [...] g 3.375 gram 1 EA, IV Piggyback, x3xaxgdnkcdbbm + Sodium Chloride 0.9% 500 mL 2 gram 2 EA, IV Piggyback, q44cuJqbzqjckdr: (2)Lactated Ringers 1,000 mL 1,000 mL, IV, 125 mL/hrSodium Chloride 0.9% 2,190 mL 2,190 mL, IV, 999 mL/hrPRN: (6)acetaminophen 325 mg Tab UD [F] 650 mg 2 tab(s), Oral, z8dpzofzcevkx 0.083% Inh Mary 3 mL [F] 2.5 mg 3 mL, NEB, r5avknxrvkvtj CFC free 90 mcg/inh Inh Aer w/Adapt 8.5 gm [F] 180 microgram 2 puff(s), Inhalation, j3ixfimhwnoth 30 mg/mL Inj 1 mL [F] 30 mg 1 mL, IV, w0drqzkmbxzg 10 mg/mL preservative-free SOLN [F] 4 mg 0.4 mL, IV Push, o0ztvuftitioevu 2 mg/mL Inj [F] 4 mg 2 mL, IV Push, q6hr Problem list: All ProblemsImpaired skin integrity / SNOMED CT 02345279 / ConfirmedProblem added on documentation of skin impairments.Smoker / IMO [id number] / ConfirmedAdded secondary to documentation in Social History. Histories Past Medical History: ResolvedAsthma ([id number]): Resolved. Family History: AsthmaMother Procedure history: Incision AND drainage ([id number]).Comments:10/06/2017 06:12 - Raulito THOMPSON, Philippe right hand [...] Results 10/08/2017 06:19 EST WBC 15.9 E9/L HI Hgb 12.1 gm/dL LOW Platelet 342.0 E9/L BUN 7 mg/dL Creatinine 0.8 mg/dL 10/07/2017 07:43 EST WBC 19.7 E9/L HI 10/06/2017 03:49 EST UA Spec Desc Clean [...] to see patient. Already consulted. . Normal [facility] Comment on above: Result Comment: Elec tronically Signed By: Donald Cyr M.D.pretty\Date and Time Signed: 10/08/17 11:13 EST ED Note-Physicianon 10-08-20 17 ED Note-Physician Patient: Alexx WILKES Age: 27 years Sex: Male : 1990 Associated Diagnoses: None Author: Анна Torres M.D. Basic Information Time seen: Date & time 10/05/17 22:30:00. History source: Patient. Arrival mode: Private vehicle. History limitation: None. Additional information: Chief Complaint from Nursing Triage Note : Chief Complaint 10/05/2017 18:24 EST Chief Complaint pain in mid back to hip. ongoing X2 weeks. was seen in [place] but was told it was just muscle spasms. xray and urin were obtained in [place]. . History of Present Illness The patient [...] The patient stated he was seen at [place] on and he was diagnosed with muscle strain. The patient denies any IV drug abuse or any other associated symptoms. Review of Systems Additional review of systems information: All other systems reviewed and otherwise negative. Health Status Allergies: Allergic Reactions (Selected)No Known Allergies. Past Medical/ Family/ Social History Medical history: ResolvedAsthma ([id number]): Resolved.. Surgical history: No active procedure history [...] E9/L HI Lymph Abs Man 1.0 E9/L Dougherty Abs Man 2.6 E9/L HI Eos Abs [...] . Radiology results: 10/06/2017 06:49; Melissa Mcfadden, Анна Nicole; ; No infiltrate, mass or other acute cardiopulmonary abnormality, CT of the abdomen and pelvis with IV contrast red by teleradiology shows extensive subcutaneous soft tissue edema/grader meat was change throughout the back and flank [...] and Plan Diagnosis Cellulitis of lower back (RVO21-UN L03.312, Discharge, Medical) Phlegmonous cellulitis (BEW43-LG L02.91, Discharge, Medical) Hyponatremia (BGV25-WV E87.1, Discharge, Medical) Elevated liver enzymes (QWD25-QK R74.8, Discharge, Medical) Plan Condition: Improved, Stable. Disposition: Admit time 10/06/17 01:35:00, Admit to Inpatient Telemetry Unit, Luis F Benavides DO Counseled: Patient, Family, Regarding diagnosis, Regarding diagnostic results, Regarding treatment plan. Normal [facility] Comment on above: Result Comment: Elec tronically Signed By: Melissa Mcfadden, Анна Nicole\.br\Date and Time Signed: 10/08/17 09:28 EST Interdisciplinary Note - Brett e Manageron 10-08-2017 Interdisciplinary Note - Exhibit Electrician Rounding with Dr. Canchola, Marisa [facility], Shelton [facility], Marcelino RN. Whiteboard updated. No family present. [...] of anticipated dc in a few days. Normal [facility] Interdisciplinary Note - Soc ial Workeron 10-08-2017 Interdisciplinary Note - Research Quality Assurance Analyst Consult received late this afternoon to order wound vac. SW spoke to CRM who will be following this weekend about need for wound vac as this SW is not familiar with how to order this as this is usually completed by wound care. SW will remain available. Normal [facility] Main OR PACU I Recordon 09-11 Main OR PACU I Record PACU Phase I Document Type FT Summary Primary Physician: Jose M Patten MD Finalized Date/Time: 10/08/17 17:18:48 Pt. Name: WILLOW WILKES/Sex: 1990 Male Med Rec #: [id number] Physician: Анна Torres M.D. Financial #: [id number] Pt. Type: I Room/Bed: [place] [address] Admit/Disch: 10/05/17 17:35:00 - Institution: Case Times [...] Signed By: Aixa Wolfe RN 10/08/17 17:18 [facility] Progress Note-Physicianon Progress Note-Physician Patient: WILLOW WILKES [...] discharged from PACU when criteria met. Normal [facility] Comment on above: Result Comment: Elec [...] mL 493 mg 0.99 EA, IV Piggyback, z97auxbowbrqfebul-vlpiblamrf 3 g-0.375 g 3.375 gram 1 EA, IV Piggyback, r6tnKnaqityxfx: (1)Lactated Ringers 1,000 mL 1,000 mL, IV, 125 mL/hrPRN: (6)acetaminophen 325 mg Tab UD [F] 650 mg 2 tab(s), Oral, a2jlgpqgzcgqm 0.083% Inh Mary 3 mL [F] 2.5 mg 3 mL, NEB, d7tzjedpktkbb CFC free 90 mcg/inh Inh Aer w/Adapt 8.5 gm [F] 180 microgram 2 puff(s), Inhalation, j5ymryvemhdxo 30 mg/mL Inj 1 mL [F] 30 mg 1 mL, IV, j7afxwixlljp 10 mg/mL preservative-free SOLN [F] 4 mg 0.4 mL, IV Push, z2kidfhwxwxquza 2 mg/mL Inj [F] 4 mg 2 mL, IV Push, q6hr Problem list: All ProblemsImpaired skin integrity / SNOMED CT 50681284 / ConfirmedProblem added on documentation of skin impairments.Smoker / IMO [id number] / ConfirmedAdded secondary to documentation in Social History.Resolved: Asthma / SNOMED CT 844846133, Active Problems (2)Impaired skin integrity Smoker Histories Past Medical History: ResolvedAsthma ([id number]): Resolved. Family History: AsthmaMother Procedure history: Incision AND drainage ([id number]).Comments:10/06/2017 06:12 - Philippe Cabezas RN right hand Social History Social & Psychosocial JfwffjUhkrakj99/26/2017 Risk Assessment: Denies Alcohol UseSubstance Abuse10/05/2017 Risk Assessment: Denies Substance FcxiuQnrdicg68/26/2017 Risk Assessment: High Risk10/05/2017 Use: Current Every [...] 10/07/2017 23:26 EST Temperature Oral 38.6 DegC [place] 10/07/2017 23:20 EST Peripheral Pulse Rate 112 [...] 00:58 EST Heart Rate Monitored 114 bpm [place] SpO2 95 % 10/07/2017 00:58 EST Respiratory Rate 20 br/min 10/07/2017 00:57 EST Temperature Oral 37.9 DegC HI 10/07/2017 00:57 EST Systolic Blood Pressure 96 mmHg Diastolic Blood Pressure 62 mmHg Mean Arterial Pressure, Monitered 74 mmHg Vitals Signs (last 24 hrs) Last Charted Minimum MaximumTemp 37.3 (OCT 08 11:) 36.8 (OCT 07 15:00) H 38.6 (OCT 07 23:26)Heart Rate H 101 (OCT 08 11:) 86 (OCT 07 15:00) H 112 (OCT 07 20:20)Resp Rate 18 (OCT 08 11:) 18 (OCT 07 20:20) H 23 (OCT 07 15:00)SBP H 141 (OCT 08 11:) 103 (OCT 08 08:25) H 144 (OCT 07 15:00)DBP 71 (OCT 08 11:) L 50 (OCT 07 23:20) 73 (OCT 07 15:00)MAP 94 (OCT 08 11:) 69 (OCT 07 23:20) 94 (OCT 08 [...] are non-labored. Cardiovascular: Regular rhythm. Integumentary: Warm, [place]. Neurologic: Alert, Oriented. Review / Management Results review: Lab results 10/08/2017 06:19 EST WBC 15.9 E9/L HI RBC 3.7 E12/L LOW Hgb 12.1 gm/dL LOW Hct 34.5 % LOW MCV 92.4 fL MCH 32.3 pg MCHC 34.9 gm/dL RDW 13.4 % Platelet 342.0 E9/L MPV 6.6 fL Neutro Auto 72.6 % Lymph Auto 9.3 % LOW Dougherty Auto 12.0 % Eos Auto 5.6 % Basophil Auto 0.5 % Neutro Absolute 11.5 E9/L HI Lymph Absolute 1.5 E9/L Dougherty Absolute 1.9 E9/L HI Eos Absolute 0.9 [...] E9/L HI Lymph Abs Man 2.6 E9/L Dougherty Abs Man 1.4 E9/L HI Eos Abs [...] ECG interpretation: Reviewed ECG.. Condition: Stable. Plan [place] [employer]hesi[employer] (ASA) physical status classification: Class II. Anesthetic Preoperative Plan Anesthesia: General. . Anesthetic plan, risks, benefits, and alternatives discussed with the patient and/or family. Patient verbalized understanding. Risks, benefits, alternatives discussed. Questions answered. . Normal [facility] Comment on above: Result Comment: Elec [...] mL 493 mg 0.99 EA, IV Piggyback, v65aifkgpykdslgqf-abtomrfoyr 3 g-0.375 g 3.375 gram 1 EA, IV Piggyback, l2uzPsvwxdbmav: (2)Lactated Ringers 1,000 mL 1,000 mL, IV, 125 mL/hrSodium Chloride 0.9% 2,190 mL 2,190 mL, IV, 999 mL/hrPRN: (6)acetaminophen 325 mg Tab UD [F] 650 mg 2 tab(s), Oral, s5wrmyuvzvulg 0.083% Inh Mary 3 mL [F] 2.5 mg 3 mL, NEB, v1skthhqcltyv CFC free 90 mcg/inh Inh Aer w/Adapt 8.5 gm [F] 180 microgram 2 puff(s), Inhalation, a8thbyxitbbrj 30 mg/mL Inj 1 mL [F] 30 mg 1 mL, IV, q7dtockifvbf 10 mg/mL preservative-free SOLN [F] 4 mg 0.4 mL, IV Push, x7yobvmtgpyvkav 2 mg/mL Inj [F] 4 mg 2 mL, IV Push, q6hr Problem list: All ProblemsImpaired skin integrity / SNOMED CT 84616093 / ConfirmedProblem added on documentation of skin impairments.Smoker / IMO [id number] / ConfirmedAdded secondary to documentation in Social History. Histories Past Medical History: ResolvedAsthma ([id number]): Resolved. Family History: AsthmaMother Procedure history: Incision AND drainage (SNOMED CT 101169676).Comments:10/06/2017 06:12 - Philippe Cabezas RN right hand Social History Social & Psychosocial UqancmYzhozjq00/26/2017 Risk Assessment: Denies Alcohol UseSubstance Abuse10/05/2017 Risk Assessment: Denies Substance LxshgEvahegw95/26/2017 Risk Assessment: High Risk10/05/2017 Use: Current Every [...] 08:) 95 (OCT 07 20:20) 97 (OCT 08:) General: Alert and oriented, No acute distress. [...] 72.6 % Lymph Auto 9.3 % LOW Dougherty Auto 12.0 % Eos Auto 5.6 % Basophil Auto 0.5 % Neutro Absolute 11.5 E9/L HI Lymph Absolute 1.5 E9/L Dougherty Absolute 1.9 E9/L HI Eos Absolute 0.9 [...] on October 08, 2017 08:58 ESTEncounter info: [id number], Jin George, Inpatient, 10/05/2017 - . Condition: [...] D and deep tissue culture result. Normal [facility] Comment on above: Result Comment: Elec [...] MD Transcribed by: JENNIFFER Technologist: BRIT Normal [facility] eGFRon 10-08-2017 eGFR (black) mL/min/{1.73_m2} Normal >=59 [facility] Comment on above: Order Comment: Order added by Discern Expert. Result Comment: eGFR is race adjusted. AA=. Performed By: #### 1 9698894, 1774890, 32832869, 8270700, 47598846, 0679796, 1823041 ####[facility] [address] [place] [address] eGFR (non-black) mL/min/{1.73_m2} Normal >=59 [facility] Comment on above: Order Comment: Order added by Discern Expert. Result Comment: Chicken Vaccinator curt kidney disease could be indicated at eGFR's of less than 60 mL/min/1.73m2. Kidney failure is indicated at less than 15 mL/min/1.73m2. Performed By: #### 1 8202543, 8427373, 35132987, 9900811, 05181787, 3230637, 5304772 ####[facility] [address] [place] [address] .Manual Abson 10-07-2017 BASOPHILS/LEUKOCYT ES:NFR.DF:PT:BLD:Q N:MANUAL COUNT 0.0 E9/L Normal 0.0-0.2 [facility] Comment on above: Performed By: #### 1 1955155, 6745252, 63485328, 4369795, 71064083, 1564305, 4322478 ####[facility] [address] [place] [address] EOSINOPHILS/LEUKOC YTES:NFR.DF:PT:BLD :QN:MANUAL COUNT 1.0 E9/L High 0.0-0.5 [facility] Comment on above: Performed By: #### 1 9030851, 9195477, 12022419, 6075027, 53398893, 6608653, 2512882 ####[facility] [address] [place] [address] LYMPHOCYTES/LEUKOC YTES:NFR.DF:PT:BLD :QN:MANUAL COUNT 2.6 E9/L Normal 1.0-4.0 [facility] Comment on above: Performed By: #### 1 2605532, 7600289, 97071848, 5599088, 81227387, 9672229, 3187266 ####[address] [address] MONOCYTES/LEUKOCYT ES:NFR.DF:PT:BLD:Q N:MANUAL COUNT 1.4 E9/L High 0.2-1.0 [facility] Comment on above: Performed By: #### 1 7349101, 8404839, 33745936, 7257349, 35442664, 0776110, 7061796 ####[address] [address] Neutrophils 12.4 E9/L High 2.0-7.5 [facility] Comment on above: Performed By: #### 1 1538269, 2249032, 61646436, 6013279, 29918530, 2105379, 5874938 ####[address] [place] [address] Dino 10-07-2017 Alanine aminotransferase (ALT) 65 Int._Unit/L High 6-46 [facility] Comment on above: Performed By: #### 1 1459339, 8212364, 10120351, 3591601, 43627042, 1472570, 2377200 ####[address] [place] [address] Navid 10-07-2017 Aspartate aminotransferase (AST) 45 Int._Unit/L High 5-43 [facility] Comment on above: Performed By: #### 1 0977750, 9810717, 65001781, 8321866, 70079066, 7693687, 9569461 ####[facility] [address] [place] [address] Alk Phoson 10-07-2017 Alkaline phosphatase (ALP) 185 Int._Unit/L High 21-98 [facility] Comment on above: Performed By: #### 1 4705919, 7401618, 60222210, 4125245, 02683086, 5755712, 5940789 ####[facility] [address] [place] [address] BMPon 10-07-2017 Anion gap 10 mmol/L Normal 6-16 [facility] Comment on above: Order Comment: to be drawn all together at 7:30-8:00 per nurse Performed By: #### 1 0366713, 4211995, 69903887, 3255304, 81237285, 9464789, 5299604 ####[facility] [address] [place] [address] BUN/Creatinine Ratio 10 No Units Normal 10-20 [facility] Comment on above: Order Comment: to be drawn all together at 7:30-8:00 per nurse Performed By: #### 1 8141118, 0513052, 16721838, 7478458, 42612724, 8663768, 1105245 ####[facility] [address] [place] [address] Calcium 7.9 mg/dL Low 8.9-11.1 [facility] Comment on above: Order Comment: to be drawn all together at 7:30-8:00 per nurse Performed By: #### 1 2152059, 5052244, 16194117, 5874007, 23093968, 6220539, 3076086 ####[facility] [address] [place] [address] Chloride 102 mmol/L Normal 101-111 [facility] Comment on above: Order Comment: to be drawn all together at 7:30-8:00 per nurse Performed By: #### 1 8832418, 4833474, 38447033, 9711450, 89337188, 0588178, 9015854 ####[facility] [address] [place] [address] CO2 25 mmol/L Normal 21-31 [facility] Comment on above: Order Comment: to be drawn all together at 7:30-8:00 per nurse Performed By: #### 1 1225869, 9259563, 29940274, 1103712, 28339762, 2870336, 2557441 ####[facility] [address] [place] [address] Creatinine 0.8 mg/dL Normal 0.5-1.3 [facility] Comment on above: Order Comment: to be drawn all together at 7:30-8:00 per nurse Performed By: #### 1 3567597, 9695594, 35639217, 6688451, 52218896, 5279198, 0090036 ####[facility] [address] [place] [address] Glucose mass conc 94 mg/dL Normal 55-199 [facility] Comment on above: Order Comment: to be drawn all together at 7:30-8:00 per nurse Result Comment: If t his glucose result represents a fasting glucose, interpretation should refer to the following reference range: 55-99 mg/dL Performed By: #### 1 9733392, 7812742, 48604334, 1769990, 42787736, 5875068, 4489174 ####[facility] [address] [place] [address] Potassium molar conc 3.5 mmol/L Normal 3.5-5.3 [facility] Comment on above: Order Comment: to be drawn all together at 7:30-8:00 per nurse Performed By: #### 1 9228993, 4911178, 81935385, 1279185, 57238166, 3806441, 8957266 ####[facility] [address] [place] [address] Sodium 133 mmol/L Low 135-145 [facility] Comment on above: Order Comment: to be drawn all together at 7:30-8:00 per nurse Performed By: #### 1 4175732, 0251066, 78881284, 0481824, 75314747, 1106960, 1435804 ####[facility] [address] [place] [address] Urea nitrogen 8 mg/dL Normal 5-21 [facility] Comment on above: Order Comment: to be drawn all together at 7:30-8:00 per nurse Performed By: #### 1 5950532, 9790543, 25536994, 6347013, 00639387, 3917029, 4571096 ####[facility] [address] [place] [address] CBC w/ Auto Diffon Erythrocyte distribution width Auto Ratio (RBC) 13.3 % Normal 10.9-14.2 [facility] Comment on above: Performed By: #### 1 3392119, 6854492, 82145234, 1977761, 51889253, 5736703, 7459418 ####[facility] [address] [place] [address] Erythrocytes (RBC) 3.7 E12/L Low 4.3-5.9 [facility] Comment on above: Performed By: #### 1 9069235, 7483697, 08494763, 7691630, 42119628, 4038343, 6154247 ####[facility] [address] [place] [address] Hematocrit (HCT) 34.2 % Low 37.7-49.0 [facility] Comment on above: Performed By: #### 1 0458417, 6115337, 22757791, 6497806, 74812602, 9371093, 5441654 ####[facility] [address] [place] [address] Hemoglobin mass conc (Bld) 11.5 g/dL Low 13.5-17.5 [facility] Comment on above: Performed By: #### 1 8252223, 0534028, 37498129, 3824511, 35292428, 8392865, 2472402 ####[facility] [address] [place] [address] MCH 31.0 pg Normal 27.0-34.0 [facility] Comment on above: Performed By: #### 1 4383266, 9219782, 17135531, 8174734, 66036126, 3408147, 9539670 ####[address] [place] [address] MCHC mass conc (RBC) 33.7 g/dL Normal 31.4-39.3 [facility] Comment on above: Performed By: #### 1 7159042, 4524462, 11738664, 9316586, 39196541, 0154400, 5471411 ####[place] [address] MCV 92.2 fL Normal 80.0-100.0 [facility] Comment on above: Performed By: #### 1 4732677, 4684912, 90454172, 0718609, 94752773, 8356096, 3614707 ####[place] [address] Platelet mean volume (PMV) 7.0 fL Normal 6.4-10.8 [facility] Comment on above: Performed By: #### 1 5902411, 6559633, 42945293, 0086747, 46311657, 5694843, 0499949 ####[address] [place] [address] Platelets 323.0 E9/L Normal 150.0-500. 0 [facility] Comment on above: Performed By: #### 1 3155167, 1590262, 11259316, 1946818, 86904745, 7754460, 0385772 ####[address] [place] [address] WBC (Leukocytes) 19.7 E9/L High 4.0-11.0 [facility] Comment on above: Performed By: #### 1 3253480, 2341325, 38772916, 2237617, 30968907, 5186492, 6871019 ####[facility] [address] [place] [address] Coding Queryon 10-07-2017 Coding Query -From: Yissel Monteiro RN To: Jesse Davidson DO; Sent: 10/06/2017 14:29:26 [...] answer is desired or expected. Thank you!Yissel x [phone] From: Jesse Davidson DO To: Yissel Monteiro RN; Sent: 10/07/2017 17:43:37 ESTSubject: RE: Coding Query sepsis is supported by the high WBC and the elevated HR in addition to fever. thank you. Normal [facility] Interdisciplinary Note - Brett e Manageron 10-07-2017 Interdisciplinary Note - Exhibit Electrician Rounding with Dr. Davidson, Marisa [facility], Trey [facility], Maryann RN. Whiteboard updated. No family present. Dr. Cyr to see tomorrow. Pt. in isolation. Pt. aware of plan to stay today and Dr. Cyr to see tomorrow. Normal [facility] Manual Diffon 10-07-2017 BASOPHILS:NCNC:PT: BLD:QN:MANUAL COUNT 0 % Normal 0-2 [facility] Comment on above: Order Comment: Order Added by Margo Expert. Performed By: #### 1 4124346, 3779443, 66052317, 0227984, 29346618, 9436560, 8729181 ####[facility] [address] [place] [address] Blood morphology Normal Normal [facility] Comment on above: Order Comment: Order Added by Discern Expert. Performed By: #### 1 8447242, 5313182, 10885684, 5008173, 88951570, 4793367, 8009981 ####[address] [place] [address] DOHLE BODY:PRTHR:PT:BLD: ORD:MICROSCOPY.LIG HT Present Normal [facility] Comment on above: Order Comment: Order Added by Margo Expert. Performed By: #### 1 0534759, 5934013, 18452153, 8999276, 45011919, 6779603, 2423253 ####[facility] [address] [place] [address] EOSINOPHILS:NCNC:P T:BLD:QN:MANUAL COUNT 5 % Normal 0-8 [facility] Comment on above: Order Comment: Order Added by Margo Expert. Performed By: #### 1 6965825, 6047690, 48093767, 8034042, 41820933, 7678000, 3987825 ####[facility] [address] [place] [address] LYMPHOCYTES:NCNC:P T:BLD:QN:MANUAL COUNT 13 % Low 14-50 [facility] Comment on above: Order Comment: Order Added by Margo Expert. Performed By: #### 1 9237542, 9190447, 06615916, 3973108, 31020559, 5567292, 7368832 ####[facility] [address] [place] [address] MONOCYTES:NCNC:PT: BLD:QN:MANUAL COUNT 7 % Normal 4-14 [facility] Comment on above: Order Comment: Order Added by Margo Expert. Performed By: #### 1 4935902, 4897709, 40997392, 6188062, 40897420, 6756289, 7509837 ####[facility] [address] [place] [facility] [address] Neutrophils band/100 leukocytes 12 % High 0-10 [facility] Comment on above: Order Comment: Order Added by Discern Expert. Performed By: #### 1 3711189, 8247979, 76221394, 5461272, 79382067, 5138601, 4451730 ####[facility] [address] [place] [address] NEUTROPHILS.SEGMEN RENETTA:NCNC:PT:BLD:QN :MANUAL COUNT 63 % Normal 36-75 [facility] Comment on above: Order Comment: Order Added by Margo Expert. Performed By: #### 1 1245378, 7645736, 57481836, 4164299, 00072240, 1373792, 2824956 ####[facility] [address] [place] [address] PLATELETS.LARGE:MN THR:PT:BLD:ORD:LARISA ROSCOPY.LIGHT Present Normal [facility] Comment on above: Order Comment: Order Added by Margo Expert. Performed By: #### 1 7583168, 2031591, 20443469, 8557185, 17262548, 1375935, 4263412 ####[facility] [address] [place] [address] Toxic Gran Present Normal [facility] Comment on above: Order Comment: Order Added by Margo Expert. Performed By: #### 1 0265085, 7588318, 25637849, 1409557, 40234466, 6878596, 2410310 ####[facility] [address] [place] [address] Progress Note-Physicianon Progress Note-Physician Patient: WILLOW WILKES [...] g 3.375 gram 1 EA, IV Piggyback, k5vqnlgwqjzcxx + Sodium Chloride 0.9% 500 mL 2 gram 2 EA, IV Piggyback, y66wjXyfthnwmen: (2)Sodium Chloride 0.9% 1,000 mL 1,000 mL, IV, 125 mL/hrSodium Chloride 0.9% 2,190 mL 2,190 mL, IV, 999 mL/hrPRN: (6)acetaminophen 325 mg Tab UD [F] 650 mg 2 tab(s), Oral, p4oqmumveflhr 0.083% Inh Mary 3 mL [F] 2.5 mg 3 mL, NEB, x4bapiephftdq CFC free 90 mcg/inh Inh Aer w/Adapt 8.5 gm [F] 180 microgram 2 puff(s), Inhalation, d7jnifjtjiqan 30 mg/mL Inj 1 mL [F] 30 mg 1 mL, IV, w8bsgxdkqhkh 10 mg/mL preservative-free SOLN [F] 2 mg 0.2 mL, IV Push, m6zvbqfqrhtaslp 2 mg/mL Inj [F] 4 mg 2 mL, IV Push, q6hr Problem list: All ProblemsImpaired skin integrity / SNOMED CT 49565730 / ConfirmedProblem added on documentation of skin impairments.Smoker / IMO [id number] / ConfirmedAdded secondary to documentation in Social [...] 11:26) 69 (OCT 07 07:22) 81 (OCT 07 11:26)SpO2 96 (OCT 07 15:00) 95 (OCT 07 [...] E9/L HI Lymph Abs Man 2.6 E9/L Dougherty Abs Man 1.4 E9/L HI Eos Abs [...] officially consult surgery for possible I&D Normal [facility] Comment on above: Result Comment: Elec tronically Signed By: Jesse Davidson DO\.br\Date and Time Signed: 10/07/17 16:33 EST Vanco Troughon 10-07-2017 VANCOMYCIN 13 microgram/mL Normal 10-20 [facility] Comment on above: Performed By: #### 1 4401461, 6815900, 39210851, 3722104, 15821058, 1658455, 9746943 ####[facility] [address] [place] [address] eGFRon 10-07-2017 eGFR (black) mL/min/{1.73_m2} Normal >=59 [facility] Comment on above: Order Comment: Order added by Discern Expert. Result Comment: eGFR is race adjusted. AA=. Performed By: #### 1 7932085, 6228386, 11137934, 0685087, 42930783, 2178433, 5525040 ####[facility] [address] [place] [address] eGFR (non-black) mL/min/{1.73_m2} Normal >=59 [facility] Comment on above: Order Comment: Order added by Discern Expert. Result Comment: Chicken Vaccinator curt kidney disease could be indicated at eGFR's of less than 60 mL/min/1.73m2. Kidney failure is indicated at less than 15 mL/min/1.73m2. Performed By: #### 1 7521530, 2586233, 95124741, 1253187, 63700279, 6958460, 0697755 ####[facility] [address] [place] [address] .Manual Abson 10-06-2017 BASOPHILS/LEUKOCYT ES:NFR.DF:PT:BLD:Q N:MANUAL COUNT 0.0 E9/L Normal 0.0-0.2 [facility] Comment on above: Performed By: #### 1 5496736, 5493728, 35621996, 3083686, 72343187, 7592437, 6896527 ####[address] [place] [address] EOSINOPHILS/LEUKOC YTES:NFR.DF:PT:BLD :QN:MANUAL COUNT 0.0 E9/L Normal 0.0-0.5 [facility] Comment on above: Performed By: #### 1 9230056, 8153802, 96682015, 9316676, 89718544, 4997893, 0113845 ####[address] [address] LYMPHOCYTES/LEUKOC YTES:NFR.DF:PT:BLD :QN:MANUAL COUNT 1.0 E9/L Normal 1.0-4.0 [facility] Comment on above: Performed By: #### 1 7909458, 5743434, 51248518, 0642775, 54852353, 3244172, 4814322 ####[address] [address] MONOCYTES/LEUKOCYT ES:NFR.DF:PT:BLD:Q N:MANUAL COUNT 2.6 E9/L High 0.2-1.0 [facility] Comment on above: Performed By: #### 1 3014286, 1823532, 48961892, 8799350, 37075199, 8741645, 0645257 ####[address] [address] Neutrophils 15.4 E9/L High 2.0-7.5 [facility] Comment on above: Performed By: #### 1 1641042, 7295391, 19350629, 7567279, 19231140, 2836704, 6653783 ####[address] [place] [address] CBC w/ Auto Diffon Erythrocyte distribution width Auto Ratio (RBC) 13.4 % Normal 10.9-14.2 [facility] Comment on above: Performed By: #### 1 8531247, 1321364, 45389599, 4322933, 39313897, 4558295, 1121379 ####[address] [place] [address] Erythrocytes (RBC) 4.1 E12/L Low 4.3-5.9 [facility] Comment on above: Performed By: #### 1 4449353, 0835598, 59328070, 6422072, 02337467, 0517638, 0456825 ####[address] [place] [address] Hematocrit (HCT) 37.7 % Normal 37.7-49.0 [facility] Comment on above: Performed By: #### 1 1411621, 2321517, 54084381, 4191858, 70957645, 1237428, 2635647 ####[address] [place] [address] Hemoglobin mass conc (Bld) 13.0 g/dL Low 13.5-17.5 [facility] Comment on above: Performed By: #### 1 2735203, 9485421, 04794722, 5009134, 93505546, 3287596, 0959757 ####[address] [place] [address] MCH 31.6 pg Normal 27.0-34.0 [facility] Comment on above: Performed By: #### 1 0388290, 9210074, 41028729, 3464702, 95897615, 0471592, 0378142 ####[address] [place] [address] MCHC mass conc (RBC) 34.5 g/dL Normal 31.4-39.3 [facility] Comment on above: Performed By: #### 1 8856631, 8936642, 30100414, 8387769, 50461275, 2103384, 2650091 ####[facility] [address] [place] [address] MCV 91.5 fL Normal 80.0-100.0 [facility] Comment on above: Performed By: #### 1 3894462, 7058567, 81417514, 6072268, 12900391, 3755718, 3980803 ####[address] [address] Platelet mean volume (PMV) 7.7 fL Normal 6.4-10.8 [facility] Comment on above: Performed By: #### 1 9320650, 0221228, 44897123, 6551235, 29040212, 8403365, 2107994 ####[address] [address] Platelets 309.0 E9/L Normal 150.0-500. 0 [facility] Comment on above: Performed By: #### 1 1766238, 7294359, 35125611, 9557731, 56358914, 8071517, 6183294 ####[address] [address] WBC (Leukocytes) 19.7 E9/L High 4.0-11.0 [facility] Comment on above: Performed By: #### 1 7315112, 5366821, 39839579, 1701786, 53288904, 4668661, 3648791 ####[address] [address] CMPon 10-06-2017 Alanine aminotransferase (ALT) 61 Int._Unit/L High 6-46 [facility] Comment on above: Performed By: #### 1 2911506, 3446355, 45753757, 5028108, 12346868, 3404702, 3188790 ####[address] [address] Albumin 0.7 g/dL Low 1.1-2.2 [facility] Comment on above: Performed By: #### 1 3400637, 8137534, 29317099, 6135156, 61363830, 4327339, 9083950 ####[facility] [address] [place] [address] Albumin 2.8 g/dL Low 3.3-5.0 [facility] Comment on above: Performed By: #### 1 3154401, 2700132, 95298087, 6252404, 61898240, 9619512, 7978339 ####[facility] [address] [place] [address] Alkaline phosphatase (ALP) 147 Int._Unit/L High 21-98 [facility] Comment on above: Performed By: #### 1 1504096, 0743062, 08444496, 1420758, 37187352, 7261764, 4349763 ####[facility] [address] [place] [address] Anion gap 13 mmol/L Normal 6-16 [facility] Comment on above: Performed By: #### 1 6374238, 4193454, 36143887, 3155681, 10454748, 6735231, 6436269 ####[facility] [address] [place] [address] Aspartate aminotransferase (AST) 49 Int._Unit/L High 5-43 [facility] Comment on above: Performed By: #### 1 7295003, 2711470, 73731141, 1273166, 62204530, 6135633, 6844998 ####[facility] [address] [place] [address] Bilirubin (total) 1.0 mg/dL Normal 0.0-1.1 [facility] Comment on above: Performed By: #### 1 0326174, 0485744, 12894816, 7863893, 96299558, 4408708, 3127940 ####[facility] [address] [place] [address] BUN/Creatinine Ratio 14 No Units Normal 10-20 [facility] Comment on above: Performed By: #### 1 6554675, 6821377, 95374976, 5711554, 19045171, 9346674, 1053492 ####[facility] [address] [place] [address] Calcium 8.5 mg/dL Low 8.9-11.1 [facility] Comment on above: Performed By: #### 1 7541592, 8838857, 97075231, 9857587, 44942337, 6967479, 2802324 ####[facility] [address] [place] [address] Chloride 93 mmol/L Low 101-111 [facility] Comment on above: Performed By: #### 1 8030668, 7855341, 88568684, 3545149, 61479255, 7749625, 7007759 ####[facility] [address] [place] [address] CO2 25 mmol/L Normal 21-31 [facility] Comment on above: Performed By: #### 1 9572626, 1730091, 78797101, 0212871, 98566827, 3595928, 2357981 ####[facility] [address] [place] [address] Creatinine 0.9 mg/dL Normal 0.5-1.3 [facility] Comment on above: Performed By: #### 1 0022863, 6214949, 96374407, 7964596, 64376129, 4297384, 8725481 ####[facility] [address] [place] [address] Globulin 3.8 g/dL Normal 1.4-4.0 [facility] Comment on above: Performed By: #### 1 5390866, 4059971, 39088923, 1743525, 05137583, 2487750, 3801549 ####[facility] [address] [place] [address] Glucose mass conc 107 mg/dL Normal 55-199 [facility] Comment on above: Result Comment: If t his glucose result represents a fasting glucose, interpretation should refer to the following reference range: 55-99 mg/dL Performed By: #### 1 7158530, 8617508, 55159512, 6933887, 61191828, 9452848, 8537446 ####[facility] [address] [place] [address] Potassium molar conc 4.1 mmol/L Normal 3.5-5.3 [facility] Comment on above: Performed By: #### 1 3905538, 5238916, 51524866, 2426229, 06783671, 5886374, 2851148 ####[facility] [address] [place] [address] Protein 6.6 g/dL Normal 6.0-7.8 [facility] Comment on above: Performed By: #### 1 5544510, 6236057, 58483775, 5552097, 02854924, 7779641, 0577711 ####[facility] [address] [place] [address] Sodium 127 mmol/L Low 135-145 [facility] Comment on above: Performed By: #### 1 7826382, 3296615, 24397830, 9293589, 07083506, 2414155, 6661781 ####[facility] [address] [place] [address] Urea nitrogen 13 mg/dL Normal 5-21 [facility] Comment on above: Performed By: #### 1 5366269, 3739477, 16044033, 3669755, 55511743, 0892916, 7508220 ####[facility] [address] [place] [address] ED Clinical Summaryon 2016 ED Clinical Summary [place] [id number] ED Clinical SummaryPerson Information Name: Juan Carlos WILKES/Carlos_Brent Age: 27 Years : 1990 12:00 AM Sex: Male Language:Moroccan PCP: Myra Middleton MD Marital Status:Single Visit Id: Visit Reason:Increased heart rate; Nausea; Dizziness; Pain in back; CELLULITIS, PHLEGMON, TACHYCARDIA Speciality: Acuity: 3 Enc Type: Inpatient Med Service: Medical Arrival:10/05/2017 5:35 PM Discharge: LOS: 000 11:42 Checkin:10/05/2017 5:35 PM Checkout: 10/06/2017 5:17 AM Dispo Type: Admitted as IP to this [facility] EVENTS:Event Name Event Status Request [...] AM Patient Care Request 10/06/2017 4:41 AM ADDRESS:[address] [place] [id number] [facility] DOC NOTES: MEDICAL INFORMATION: Prescriptions Given:PATIENT EDUCATION INFORMATION: Instructions: Follow up:DIAGNOSIS: Normal [facility] ED Patient Education Noteon 10-06-2017 ED Patient Education Note Patient Education Materials Follows: Normal [facility] ED Patient Summaryon 017 ED Patient Summary (Inserted Image. La ble to display) [place] [id number] Patient Discharge Instructions Person Information Name: WILLOW WILKES Age: 27 Years Date: 10/05/2017 5:35 PMDischarge Diagnosis: Primary Care Physician: Myra Middleton MD Provider InformationPrimary Provider: Анна Torres M.D.silucina Gambling Dealer:None The exam and treatment you received in the Emergency Department were for an urgent problem and are not intended as complete care. It is important that you follow up with a doctor, nurse practitioner, or physician?s preschool assistant principal for ongoing care. If your symptoms become [...] Initial Volume 999.00 mL/hr IV Left Antecubital Benton Sodium Chloride 0.9% intravenous solution 2190.00 mL Initial Volume 999.00 mL/hr IV Left Antecubital Benton Sodium Chloride 0.9% intravenous solution 500.00 mL Initial Volume 999.00 mL/hr IV Left Antecubital Diana Sodium Chloride 0.9% intravenous solution 1000.00 mL Initial Volume 999.00 mL/hr IV Left Antecubital Benton morphine 6.00 mg IV Push Left Antecubital Benton morphine 4.00 mg IV Push Left Antecubital Benton vancomycin 1.50 gram IV Piggyback Left Antecubital Benton piperacillin-tazobactam 3.38 gram IV Piggyback Left Antecubital Diana hydromorphone 1.00 mg IV Push Left Antecubital Diana Medication Information:Comment: Pharmacy Information: Thank you for choosing [facility] Patient Education Materials: Dianna WILKES, RYAN , have received the following patient education materials/instructions and have verbalized understanding: Patient Education Materials: Follow-up Instructions: Prescriptions: Patient Signature Date Clinician/Nurse Signature Date 10/06/17 05:17:22 Normal [facility] History and Physicalon 10-06 History and Physical Patient: WILLOW WILKES Age: 27 years Sex: Male : 1990 Associated Diagnoses: None Author: Jesse Davidson DO Chief Complaint 10/05/2017 18:24 EST pain in mid back to hip. ongoing X2 weeks. was seen in [place] but was told it was just muscle spasms. xray and urin were obtained in [place]. History of Present Illness 27 Y/O presents [...] g 3.375 gram 1 EA, IV Piggyback, f4uofaqfabqmee + vancomycin + Sodium Chloride 0.9% 500 mL 1,750 mg, IV Piggyback, o80hlAjrfydgbvz: (2)Sodium Chloride 0.9% 1,000 mL 1,000 mL, IV, 125 mL/hrSodium Chloride 0.9% 2,190 mL 2,190 mL, IV, 999 mL/hrPRN: (2)morphine 2 mg/mL preservative-free SOLN [F] 2 mg 1 mL, IV Push, h1uysktofbckzvq 2 mg/mL Inj [F] 4 mg 2 mL, IV Push, q6hr Problem list: All ProblemsSmoker / IMO [id number] / ConfirmedAdded secondary to documentation in Social History., Active Problems (1)Smoker Histories Past Medical History: ResolvedAsthma ([id number]): Resolved. Family History: AsthmaMother Procedure history: Incision AND drainage ([id number]).Comments:10/06/2017 06:12 - Raulito THOMPSON, Philippe right hand Social History Social & Psychosocial NcamgcIlcavgh28/26/2017 Risk Assessment: Denies Alcohol UseSubstance Abuse10/05/2017 Risk Assessment: Denies Substance EigytDuwmpiy34/26/2017 Risk Assessment: High Risk10/05/2017 Use: Current Every [...] (OCT 06 06:02)Heart Rate H 131 (OCT 06 07:31) H 120 (OCT 05 18:24) H 131 (OCT 06 07:31)Resp Rate H 24 (OCT 06 06:02) 16 [...] E9/L HI Lymph Abs Man 1.0 E9/L Dougherty Abs Man 2.6 E9/L HI Eos Abs [...] need for cessation- DVT proph: . AmbulationWill likley require more than 2 MN's to treat the above Normal [facility] Comment on above: Result Comment: Elec tronically Signed By: Jesse Davidson DO\.br\Date and Time Signed: 10/06/17 12:53 EST Interdisciplinary Note - Brett e Manageron 10-06-2017 Interdisciplinary Note - Exhibit Electrician CRM spoke with pt at bedside, white board updated, no family present. Pt states no PCP, list was provided at bedside. Pt understands plan is stay today, continue IV antibiotics, fluids, pain medication. Pt denies needs. Normal [facility] Lactic Acidon 10-06-2017 LACTATE:MCNC:PT:SE R/PLAS:QN: 5.1 mg/dL Normal 4.5-19.8 [facility] Comment on above: Performed By: #### 2 [id number] ####[facility] [address] [place] [address] LACTATE:MCNC:PT:SE R/PLAS:QN: 7.7 mg/dL Normal 4.5-19.8 [facility] Comment on above: Performed By: #### 1 3665440, 9811738, 58994230, 6848690, 53401880, 1612924, 6870585 ####[place] [address] [place] [address] Manual Diffon 10-06-2017 BASOPHILS:NCNC:PT: BLD:QN:MANUAL COUNT 0 % Normal 0-2 [facility] Comment on above: Order Comment: Order Added by Discern Expert. Performed By: #### 1 9667729, 1872868, 51665354, 6135420, 06567883, 8931594, 2682545 ####[address] [address] Blood morphology Normal Normal [facility] Comment on above: Order Comment: Order Added by Margo Expert. Performed By: #### 1 8567116, 2740155, 68300854, 3300561, 60858317, 2698336, 9252081 ####[address] [address] EOSINOPHILS:NCNC:P T:BLD:QN:MANUAL COUNT 0 % Normal 0-8 [facility] Comment on above: Order Comment: Order Added by Margo Expert. Performed By: #### 1 1767028, 1048717, 74943094, 6382176, 26769480, 8844085, 5727037 ####[place] [address] [place] [address] LYMPHOCYTES:NCNC:P T:BLD:QN:MANUAL COUNT 5 % Low 14-50 [facility] Comment on above: Order Comment: Order Added by Discern Expert. Performed By: #### 1 8135077, 3200334, 56499537, 5052532, 62162036, 6355057, 2686773 ####[address] [address] MONOCYTES:NCNC:PT: BLD:QN:MANUAL COUNT 13 % Normal 4-14 [facility] Comment on above: Order Comment: Order Added by Margo Expert. Performed By: #### 1 7170693, 7689146, 21228494, 1388513, 22815720, 7027521, 5633936 ####[facility] [address] [place] [address] Neutrophils band/100 leukocytes 4 % Normal 0-10 [facility] Comment on above: Order Comment: Order Added by Discern Expert. Performed By: #### 1 3563940, 6609957, 81501870, 5483788, 26069167, 5290031, 5264316 ####[facility] [address] [place] [address] NEUTROPHILS.SEGMEN RENETTA:NCNC:PT:BLD:QN :MANUAL COUNT 78 % High 36-75 [facility] Comment on above: Order Comment: Order Added by Discern Expert. Performed By: #### 1 2191071, 4459275, 24457453, 4442772, 00372999, 5176521, 1945370 ####[place] [address] [place] [address] PT & PTTon 10-06-2017 aPTT 30.1 second(s) Normal 25.1-36.5 [facility] Comment on above: Result Comment: Hepa rin therapeutic range (represented by Anti-Factor Xa activity of 0.2 - 0.4 U/mL) corresponds to PTT of 53.9 - 87.4 sec. Performed By: #### 1 8005559, 7371228, 27711368, 2679330, 82414136, 1949425, 7270333 ####[facility] [address] [place] [address] INR Coag RelTime (PPP) 1.2 {INR} Invalid Interpretation Code [facility] Comment on above: Result Comment: INR results are specifically intended to assess patients stabilized on long-term Anticoagulation therapy suggested INR?s ?Less Intensive Anticoagulation? 2.0 ? 3.0Conventional Range 3.0 ? 4.5 Performed By: #### 1 7662816, 2161731, 51588143, 4751318, 13200418, 2820316, 7119032 ####[facility] [address] [place] [address] Prothrombin time (PT) Coag time (PPP) 13.3 second(s) High 10.2-12.9 [facility] Comment on above: Performed By: #### 1 4485327, 9256563, 66372084, 2052593, 09441845, 7664932, 9550614 ####[facility] [address] [place] [address] Progress Note-Nurseon 2016 Progress Note-Nurse 2231 - Dr Torres at aqkwngo7522 - Notified Dr. Torres pt requesting more pain medication.0003 - At radiology.013 - Pt resting in bed, IVF's and [...] Pt ready to transfer upstairs to room 321S.7897 ----time clarification for last note above Normal [facility] UA With Cult Reflexon 2016 BACTERIA:PRTHR:PT: URINE SED:ORD:MICROSCOPY .LIGHT TRACE Normal Trace [facility] Comment on above: Performed By: #### 1 2283798 ####[facility] [address] [place] 6234357 Bilirubin Ql (U) Negative Normal Negative [facility] Comment on above: Performed By: #### 1 0511371 ####[place] [address] [place] 6234357 COLOR:TYPE:PT:URIN E:NOM:AUTO YELLOW Normal Yellow [facility] Comment on above: Performed By: #### 1 8708483 ####[place] 4321557 Erythrocytes (RBC) 0-3 Normal 0-3 [facility] Comment on above: Performed By: #### 1 7071823 ####[facility] [address] [facility] [place] [address] GLUCOSE:MCNC:PT:UR INE:QN:TEST STRIP Negative Normal Negative [facility] Comment on above: Performed By: #### 1 9534867 ####[facility] [address] [facility] [place] [address] KETONES:MCNC:PT:UR INE:QN:TEST STRIP TRACE Abnormal Negative [facility] Comment on above: Performed By: #### 1 5500293 ####[facility] [address] [facility] [place] [address] LEUKOCYTES:PRTHR:P T:URINE:ORD:AUTOMA RENETTA Negative Normal Negative [facility] Comment on above: Performed By: #### 1 2228770 ####[facility] [address] [place] [address], [place] [address] UA Spec Desc Clean Catch Normal [facility] Comment on above: Performed By: #### 1 5746437 ####[facility] [address] [place] [address] Urine, clarity CLEAR Normal Clear [facility] Comment on above: Performed By: #### 1 1443186 ####[facility] [address] [place] [address] Urine, hemoglobin presence Negative Normal Negative [facility] Comment on above: Performed By: #### 1 5816591 ####[facility] [address] [place] [address] Urine, leukocytes in sedmiment 0-5 Normal 0-5 [facility] Comment on above: Performed By: #### 1 5106652 ####[facility] [address] [place] [address] Urine, mucus presence in sediment TRACE Normal [facility] Comment on above: Performed By: #### 1 1782979 ####[facility] [address] [place] [address] Urine, nitrite presence Negative Normal Negative [facility] Comment on above: Performed By: #### 1 7334576 ####[facility] [address] [place] [address] Urine, pH 7.0 [pH] Invalid Interpretation Code 5.0-9.0 [facility] Comment on above: Performed By: #### 1 7000101 ####[facility] [address] [place] [address] Urine, protein 1+ Abnormal Negative [facility] Comment on above: Performed By: #### 1 0698468 ####[facility] [address] [place] [address] Urine, specific gravity 1.010 Invalid Interpretation Code 1.005-1.03 0 [facility] Comment on above: Performed By: #### 1 9387060 ####[facility] [address] [place] [address] Urine, squamous cells in sediment 0-2 Normal 0-2 [facility] Comment on above: Performed By: #### 1 8663028 ####[facility] [address] [place] [address] Urine, urobilinogen 1.0 {Aleksandr'U}/dL Normal 0.0-1.0 [facility] Comment on above: Performed By: #### 1 3214817 ####[facility] [address] [place] [address] XR Chest 2 Viewson 7 XR Chest [...] Landon MD Transcribed by: JENNIFFER Technologist: FLOYD Morton [facility] eGFRon 10-06-2017 eGFR (black) mL/min/{1.73_m2} Normal >=59 [facility] Comment on above: Order Comment: Order added by Discern Expert. Result Comment: eGFR is race adjusted. AA=. Performed By: #### 1 5830299, 1108166, 37942728, 9302100, 96985910, 0159227, 1224619 ####[facility] [address] [place] [address] eGFR (non-black) mL/min/{1.73_m2} Normal >=59 [facility] Comment on above: Order Comment: Order added by Discern Expert. Result Comment: Chicken Vaccinator curt kidney disease could be indicated at eGFR's of less than 60 mL/min/1.73m2. Kidney failure is indicated at less than 15 mL/min/1.73m2. Performed By: #### 1 8487117, 9093421, 04687467, 6994062, 89401656, 2236448, 2472268 ####[facility] [address] [place] [address] Coding Summaryon 08-17-2017 Coding Summary CODING DATE: [facility] STATUS: Home PAYOR: Medicaid HMO ADMIT [...] in slightly different terminology. Revised Coded By: Duglas Verma' Revised Date Saved: 06/07/2017 02:49 pm [facility] Coding Summary CODING DATE: [facility] STATUS: Home PAYOR: Medicaid HMO ADMIT [...] Verma Revised Date Saved: 06/07/2017 02:48 pm [facility] Coding Summaryon 08-12-2017 Coding Summary CODING DATE: [facility] STATUS: Home PAYOR: Medicaid HMO ADMIT [...] Mira Verma Date Saved: 08/12/2017 12:26 pm [facility] Coding Summary CODING DATE: 017 [facility] STATUS: Home PAYOR: Medicaid HMO ADMIT [...] Mira Verma Date Saved: 08/12/2017 12:25 pm [facility] ED Clinical Summaryon 2016 ED Clinical Summary [facility] [address] [place] [address] ed Clinical SummaryPERSON INFORMATIONName: WILKES, WILLOW Randolph Age: 27 Years Sex: MALEDOB: [birth year] MRN: Acct#:Visit Reason: Back pain; BACK PAIN Arrival:08/05/17 20:28:00 Discharge: 08/05/17 22:21:00LOS: 000 01:53 Check In: 08/05/17 20:28:00 Checkout:08/05/17 22:21:00Address:[address] [place] [id number]: Provider, NonePROVIDER INFORMATIONProvider Role Assigned UnassignedNeeraj Raphael ED 08/05/17 20:42:09LanVeronica sauceda ED Nurse 08/05/17 20:54:37VITALS INFORMATIONVital Sign Triage [...] Radiculopathy; Back Pain, AdultFollow-Up:With: Address: When:ANJU CROCKER [address] [place] [address] Business (1) Within 3 to 5 daysComments:Diagnosis [...] any questions.[facility] Address: When:None Provider Within 3 to 5 daysDIAGNOSIS:Accidental fall; L4-L5 disc bulge; Lumbar back pain with radiculopathy affecting right lower extremityComment: [facility] ED Note - Otheron 08-06-2017 ED Note - Other In patients chart to check if items are scanned in. [Electronically Signed on: 08/06/2017 07:18 EDT] Judy Joe [Verified on: 08/06/2017 07:18 EDT] Mary Ann Joefiny [facility] ED Note-Nursingon 08-06-2017 ED Note-Nursing Pt discharged home. Home care and follow-up instructions given tp pt. Pt verbalized understanding. VS are WNL. PA has spoken tp pt. 1 prescription sent home with pt. 2 prescriptions sent to [facility]. Pt ambulated self to exit. [facility] ED Patient Education Noteon 08-06-2017 ED [...] 10/18/2015 Document Reviewed: 05/16/2014Magaly Interactive Patient Education ?2015 [employer].Lumbosacral RadiculopathyLumbosacral radiculopathy is a condition that [...] Released: 09/27/2006 Document Revised: 02/11/2016 Document Reviewed: 09/23/2015[employer]ip[employer] Interactive Patient Education ?2016 [employer].Back Pain, AdultBack pain is very common in [...] stressful on your back to sit or manufacturing executive one place for long periods of time. Do not sit, drive, or manufacturing executive one place for more than 30 minutes [...] as directed by your health care provider. Jaee-bvx-phkqqfl medicines to reduce pain and inflammation are [...] Document Reviewed: 01/29/2015Magaly Interactive Patient Education ?2016 [employer]. Normal [facility] ED Patient Summaryon 08-06-2 017 ED Patient Summary [facility] [address] [place] [address] pATIENT DISCHARGE INSTRUCTIONSPatient InformationName: WILLOW WILKES Age: 27 YearsDate of : [birth year]MRN: [id number] For Visit: Back pain; BACK PAINArrival Time: 08/05/17 20:28:00Phone: Primary Care Physician: Provider, NoneAttending Physician: Luis F Hood DOComment:Visit Diagnosis:Diagnoses This Visit Accidental fall (W19.XXXA) Back pain ([id number]) L4-L5 disc bulge (M51.26) Lumbar back pain [...] sign any legal documentsWith: Address: When:ANJU CROCKER [address] [place] [address], [place] [address] Business (1) Within 3 to 5 daysComments:Diagnosis [...] any questions.Prescriptions have [facility] Address: When:None Provider Within 3 to 5 daysMedication Information:The exam and treatment you received today in the [facility] Emergency Department were for an urgent problem and are not intended as complete care. It is important for you to follow up with a doctor, nurse practitioner, or physician?s preschool assistant principal for ongoing care. If your symptoms become [...] so we can reach you if necessary.[facility] Emergency Department has provided you with a complete list of medications post discharge. Please inform your paint specialist/provider of your visit and for further instruction on these medications. Any specific questions regarding your chronic medications and dosages should be discussed with your primary care physician(s) and/or pharmacist. New MedicationsRITE [address], [address] [place] [phone], [phone] (orphenadrine 100 mg oral tablet, extended release) 1 tab(s) Oral 2 times a day as needed pain for 7 Days. Refills: 0.predniSONE (predniSONE 20 mg oral tablet) 2 tab(s) Oral every day for 5 Days. Refills: 0.Printed Prescriptionsacetaminophen-hydr ocodone ([place] 5 mg-325 mg oral tablet) 1 tab(s) [...] Document Reviewed: 05/16/2014Magaly Interactive Patient Education ?2016 [employer].Lumbosacral RadiculopathyLumbosacral radiculopathy is a condition that [...] Document Reviewed: 09/23/2015Magaly Interactive Patient Education ?2016 [employer].Back Pain, AdultBack pain is very common in [...] stressful on your back to sit or manufacturing executive one place for long periods of time. Do not sit, drive, or manufacturing executive one place for more than 30 minutes [...] as directed by your health care provider. Xymr-zxx-ozdlhcx medicines to reduce pain and inflammation are [...] Document Reviewed: 01/29/2015Magaly Interactive Patient Education ?2016 [employer]. Viruses or BacteriaWhat?s got you sick?Antibiotics only [...] Antibiotics [place] Department of Health and Human ServicesLicking Memorial Hospitalers for Disease Control and Prevention June 2014 Normal [facility] CT Spine Lumbar w/o Contrast on 08-05-2017 [...] changes. There is mild disc space narrowing qhflU72-V28 to L3-L4. No definite acute fracture or [...] and upon the proximal portion of the Z4ghcmw root on the left, correlate clinically. There [...] ON THE LEFT, CORRELATE CLINICALLY.NILS Phillips #: [id number]: 08/06/2017T: 08/06/2017 Final Dictated by: David Ward MD SDictated DT/TM: 08/06/17 6:48Signed (Electronic Signature): David Ward MD 08/06/17 11:21 aTechnologist: [facility] ED Note - Physicianon 2016 ED Note - Physician Patient: WILLOW WILKES : 27 years Sex: MALE : [birth year]Associated Diagnoses: Lumbar back pain with radiculopathy affecting right lower extremity; Accidental fall; L4-L5 disc bulgeAuthor: Neeraj RaphaelBasic InformationAdditional information: Chief Complaint from Nursing Triage Note : Chief Qyofyfnkr51/26/17 20:41 EDT Chief Complaint Lower back pain [...] Social HistoryMedical history:ResolvedModerate persistent asthma with exacerbation ([id number]): Resolved.Pneumonia due to other specified bacteria ([id number]): Resolved.Smoker ([id number]): Resolved.Comments: -Added secondary to documentation in Social History.Pain due to dental caries (13604532): Resolved..Surgical history:Colonoscopy normal ([id number]) in 2015 at 25 Years..Family history:AsthmaMotherSisterGrand father (Maternal)Cancer - unknown originGrandfather (Paternal)FibromyalgiaMotherChr onic coughMother.Social history:Social & Psychosocial XbalfdDilnvwe61/06/2016 Risk Assessment: Low Risk Comment: denies - 03/25/2016 14:35 - Leila Chavez LPNEmployment/Jdrczw9803/16/2016 Risk Assessment: Low Risk03/25/2016 Status: Employed 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/Wnbehgxavnp71/15/2016 Lives with: MotherSubstance Abuse03/16/2016 Risk Assessment: Denies Substance OxllhFjrlyiq09/06/2016 Risk Assessment: Low Risk03/24/2017 Type: Cigarettes Comment: [...] mmHg SpO2 98 % Oxygen Therapy Room air.Wffxypdhwdrr95/26/17 20:43 EDT Weight Dosing 74.840 kg08/05/17 20:43 [...] the form of prednisone, muscle relaxant, and [place]. I discussed them that in regards to [...] pain with radiculopathy affecting right lower extremity (QEH86-GL M54.17, Discharge, Medical)L4-L5 disc bulge (KDB51-CY M51.26, Discharge, Medical)Accidental fall (PKD05-LH W19.XXXA, Discharge, Medical)PlanCondition: Improved, Stable.Disposition: Discharged: Time 08/05/17 21:59:00, to home.Prescriptions: Launch prescriptionsPharmacy:orphenadr ine 100 mg oral tablet, extended release (Prescribe): 100 mg, 1 tab(s), PO, BID, for 7 day(s), PRN: pain, 14 tab(s), 0 Refill(s)predniSONE 20 mg oral tablet (Prescribe): 40 mg, 2 tab(s), PO, Daily, for 5 day(s), 10 tab(s), 0 Refill(s)[place] 5 mg-325 mg oral tablet (Prescribe): 1 [...] Raphael[Verified on: 08/05/2017 22:28 EDT] Neeraj Raphael [facility] ED Note-Nursingon 08-05-2017 ED Note-Nursing Pt presented to the ER with c/o Lower back. Pt states he slipped on a storage container lid and fell on his back. Pt has h/o lower back pain. Pt is awake and alert. VS are WNL. Lungs clear. Denies SOB, Chest pain, Dizziness, N/V. Respirations are regular, even, unlabored. Pt placed in gown. SALINA at bedside. [facility] Rad - Other Radiology Report on 08-05-2017 Rad - Other Radiology Report [id number] [facility] Coding Summaryon 06-07-2017 Coding Summary CODING DATE: [facility] STATUS: Home PAYOR: Medicaid O ADMIT DX: REASON FOR VISIT DX: N50.811 [...] Duglas Verma' Date Saved: 06/07/2017 02:49 pm [facility] Coding Summary CODING DATE: 017 [facility] STATUS: Home PAYOR: Medicaid HMO ADMIT [...] Mira Verma Date Saved: 06/07/2017 02:48 pm [facility] ED Clinical Summaryon 2016 ED Clinical Summary [facility] - Emergency [address] [place] [id number] ed Clinical SummaryPERSON INFORMATIONName: WILLOW WILKES Age: 26 Years Sex: MALEDOB: [birth year] MRN: Acct#:Visit Reason: Testicular pain; Testicular pain; PELVIC/TESTICULAR PAIN/ X 1 WEEK Arrival:06/01/17 23:15:00 Discharge: 06/02/17 00:17:00LOS: 000 01:02 Check In: 06/01/17 23:15:00 Checkout:06/02/17 00:17:00Address:[address] [place] [id number]: Provider, NonePROVIDER INFORMATIONProvider Role Assigned UnassignedVargas Anthony MD ED Provider 06/01/17 23:16:06[place] ED Nurse 06/01/17 23:23:24VITALS INFORMATIONVital Sign Triage [...] : 88Associated Diagnoses: Left epididymitisAuthor: Vargas Anthony MDBasic InformationTime seen: Date & time 06/01/17 23:24:00.Testicular painHistory of Present Jvfhpfy29-fsuf-ynk white male presents to the emergency room [...] recently tested negative for STDs. He reports zoaq-lwm-qcaoepi medications have not been helping his pain [...] underwear until this resolves..Impression and PlanDiagnosisLeft epididymitis (MXC87-TZ N45.1, Discharge, Medical)PlanCondition: Improved.Disposition: Discharged: to home.Prescriptions: [...] 3 to 5 daysDIAGNOSIS:Left epididymitisComment: Normal [facility] ED Note - Physicianon 2016 ED Note - Physician Patient: WILLOW WILKES : 26 years Sex: MALE : [birth year]Associated Diagnoses: Left epididymitisAuthor: Vargas Anthony MDBasitamara InformationTime seen: Date & time 06/01/17 23:24:00.Testicular painHistory of Present Rucxtqx76-cgba-ejz white male presents to the emergency room [...] recently tested negative for STDs. He reports atyc-aqi-roofyrj medications have not been helping his pain [...] underwear until this resolves..Impression and PlanDiagnosisLeft epididymitis (OFG77-AT N45.1, Discharge, Medical)PlanCondition: Improved.Disposition: Discharged: to home.Prescriptions: [...] on: 06/01/2017 23:41 EDT] Vargas Anthony MD [facility] ED Note-Nursingon 06-02-2017 ED Note-Nursing Discharge and follow -up instructions reviewed with patient, including criteria/conditions for return to ED if necessary. Prescriptions (2 - sent electronically to pt's preferred pharmacy) and medication instructions also reviewed; pt verbalizes understanding of all instructions, offers no questions. Patient without c/o or s/s distress; ambulated out of ED without incidence, gait steady. [facility] ED Patient Education Noteon 06-02-2017 ED [...] responded to other treatments.HOME CARE INSTRUCTIONSMedicines?? Take bhnu-pif-ihfdiab and prescription medicines only as told by [...] Document Reviewed: 02/12/2016Magaly Interactive Patient Education ?2016 [employer]. Normal [facility] ED Patient Summaryon 017 ED Patient Summary [facility] - Emergency [address] [place] [address] pATIENT DISCHARGE INSTRUCTIONSPatient InformationName: WILLOW WILKES Age: 26 YearsDate of : [birth year]MRN: [id number] For Visit: Testicular pain; Testicular pain; PELVIC/TESTICULAR PAIN/ X 1 WEEKArrival Time: 06/01/17 23:15:00Phone: Primary Care Physician: Provider, NoneAttending Physician: Vargas Anthony MDComment:Visit Diagnosis:Diagnoses This Visit Left epididymitis (N45.1) Testicular pain ([id number] 042A31) Testicular pain ([id number] 042A31)If you received any narcotics, sedation, or [...] and treatment you received today in the [facility] Emergency Department were for an urgent problem and are not intended as complete care. It is important for you to follow up with a doctor, nurse practitioner, or physician?s preschool assistant principal for ongoing care. If your symptoms become [...] so we can reach you if necessary.[facility] Emergency Department has provided you with a complete list of medications post discharge. Please inform your paint specialist/provider of your visit and for further instruction on these medications. Any specific questions regarding your chronic medications and dosages should be discussed with your primary care physician(s) and/or pharmacist. [facility]ations[facility] [address] [phone], [phone] (doxycycline hyclate 100 mg oral capsule) 1 [...] responded to other treatments.HOME CARE INSTRUCTIONSMedicines?? Take gdyt-pgd-ogyoyhb and prescription medicines only as told by [...] Document Reviewed: 02/12/2016Magaly Interactive Patient Education ?2016 [employer]. Viruses or BacteriaWhat?s got you sick?Antibiotics only [...] for Disease Control and Prevention June 2014 [facility] Operative Reporton 7 Operative Report MR#: [id number] [facility] Pt. Name: Willow Wilkes Room #: [...] appeared to have healthy granulation tissue present. [place] was usedto minimally undermine the edges of [...] Date Dict: 04/09/2017//Katharine Pak Trans: 04/11/2017 08:21 A/Neil_JN:[id number]/ Normal [facility] Vital Signs Date Time Vital Sign Value Performing Clinician [facility] 06-14-2025 15:08-0400 Body height 171.5 cm Blake Granger MD Work Phone: [facility] 06-14-2025 15:08-0400 Body mass index (BMI) [Ratio] 35.34 kg/m2 Blake Granger MD Work Phone: [facility] 06-14-2025 15:08-0400 Body weight 103.87 kg Blake Granger MD Work Phone: [facility] 06-14-2025 15:08-0400 Diastolic blood pressure 78 mm[Hg] Blake Granger MD Work Phone: [facility] 06-14-2025 15:08-0400 Heart rate 97 /min Blake Granger MD Work Phone: [facility] 06-14-2025 15:08-0400 Respiratory rate 18 /min Blake Granger MD Work Phone: [facility] 06-14-2025 15:08-0400 SaO2% (BldA) [Mass fraction] 98 % Blake Granger MD Work Phone: [facility] 06-14-2025 15:08-0400 Systolic blood pressure 108 mm[Hg] Blake Granger MD Work Phone: [facility] 12-14-2024 14:42-0500 Body mass index (BMI) [Ratio] 34.7 kg/m2 Inez Healy APPLICATION SECURITY DEVELOPER-SLEEP TECHNICIAN Work Phone: [facility] 12-14-2024 14:42-0500 Body weight 106.59 kg Inez Healy APPLICATION SECURITY DEVELOPER-SLEEP TECHNICIAN Work Phone: [facility] 12-14-2024 14:42-0500 Diastolic blood pressure 84 mm[Hg] Inez Healy APPLICATION SECURITY DEVELOPER-SLEEP TECHNICIAN Work Phone: [facility] 12-14-2024 14:42-0500 Heart rate 90 /min Inez Healy APPLICATION SECURITY DEVELOPER-SLEEP TECHNICIAN Work Phone: [facility] 12-14-2024 14:42-0500 Respiratory rate 18 /min Inez Healy APPLICATION SECURITY DEVELOPER-SLEEP TECHNICIAN Work Phone: [facility] 12-14-2024 14:42-0500 SaO2% (BldA) [Mass fraction] 99 % Inez Healy APPLICATION SECURITY DEVELOPER-SLEEP TECHNICIAN Work Phone: [facility] 12-14-2024 14:42-0500 Systolic blood pressure 134 mm[Hg] Inez Healy APPLICATION SECURITY DEVELOPER-SLEEP TECHNICIAN Work Phone: [facility] 09-22-2024 10:32-0500 Body height 175.3 cm Placido Morales MD Work Phone: [facility] 09-22-2024 10:32-0500 Body mass index (BMI) [Ratio] 35.37 kg/m2 Placido Morales MD Work Phone: [facility] 09-22-2024 10:32-0500 Body temperature 98.1 [degF] Placido Morales MD Work Phone: [facility] [employer] [facility] 09-22-2024 10:32-0500 Body weight 108.64 kg Placido Morales MD Work Phone: [facility] 09-22-2024 10:32-0500 Diastolic blood pressure 80 mm[Hg] Placido Morales MD Work Phone: [facility] [employer] [facility] 09-22-2024 10:32-0500 Heart rate 88 /min Placido Morales MD Work Phone: [facility] 09-22-2024 10:32-0500 Respiratory rate 16 /min Placido Morales MD Work Phone: [facility] 09-22-2024 10:32-0500 Systolic blood pressure 130 mm[Hg] Placido Morales MD Work Phone: [facility] Encounters Encounter Date Encounter Type Care Provider Facility Start: 06-18-2025 End: 06-18-2025 Orders Only Blake Granger MD Work Phone: [facility] Comment on above: Testosterone deficie ncy in male (Primary Dx) Start: 06-16-2025 ambulatory [facility] Start: 06-14-2025 End: 06-14-2025 ambulatory [facility] Start: 06-14-2025 [facility] without abnormal findings [facility] Start: 06-14-2025 End: 06-14-2025 Initial preventive medicine new pt age 18-39yrs Blake Granger MD Work Phone: [facility] Comment on above: Encounter for genera l health examination (Primary Dx); Mild intermittent asthma with acute exacerbation Start: 06-14-2025 End: 06-14-2025 Patient encounter status Blake Granger MD Work Phone: [facility] [employer] [facility] Work Phone: Start: 04-04-2025 End: 04-04-2025 ambulatory [facility] Start: 04-04-2025 End: 04-04-2025 Subsequent hospital visit by physician [facility] Comment on above: Family history of se izures Start: 04-04-2025 End: 04-04-2025 ambulatory [facility] Start: 04-04-2025 End: 04-04-2025 Subsequent hospital visit by physician [facility] Comment on above: Family history of se izures Start: 02-13-2025 End: 02-13-2025 Orders Only Junie Zepeda [facility] [place] Start: 12-14-2024 End: 12-14-2024 Office outpatient visit 15 minutes Inez MENDOZA Work Phone: [facility] Comment on above: Fall, initial encoun ter (Primary Dx); Left elbow pain Start: 12-14-2024 End: 12-14-2024 ambulatory [facility] Start: 09-22-2024 End: 09-22-2024 Transitional care manage srvc 14 day discharge Placido Morales MD Work Phone: [facility] Comment on above: Acute pain of right knee (Primary Dx); Mild intermittent asthma with acute exacerbation Start: 09-22-2024 End: 09-22-2024 ambulatory PLACIDO MORALES [facility] Start: 08-03-2024 End: 08-03-2024 ambulatory [facility] Start: 08-02-2024 End: 08-02-2024 ambulatory [facility] Start: 08-02-2024 Encounter for preprocedural laboratory examination [facility] Start: 06-22-2024 End: 06-23-2024 Emergency department patient visit [facility] Start: 12-16-2023 End: 12-16-2023 ambulatory JUSTIN ESCOBAR Not Available Start: 05-27-2020 End: 05-28-2020 Patient encounter procedure PLACIDO MORALES Facility:[facility] Start: 04-05-2020 End: 04-06-2020 Patient encounter procedure PLACIDO MORALES Facility:[facility] Start: 03-24-2020 End: 03-25-2020 Patient encounter procedure LITTLE GARCIA Facility: Start: 11-11-2017 End: 11-12-2017 Ambulatory Sammie Pardo Facility:[facility] Start: 10-28-2017 End: 10-29-2017 Ambulatory Sammie Pardo Facility:[facility] Start: 10-06-2017 End: 10-16-2017 Evaluation and management of inpatient Myra~[id number] UNKNOWN [place] Facility:[facility] Start: 08-06-2017 End: 08-12-2017 Ambulatory None Provider Facility:[facility] Start: 08-06-2017 End: 08-12-2017 Emergency department patient visit None Provider Facility:[facility] Start: 06-02-2017 End: 06-02-2017 Emergency department patient visit None Provider Facility:[facility] Start: 06-02-2017 End: 06-02-2017 Ambulatory Vargas Anthony Facility:[facility] Start: 04-09-2017 End: 04-10-2017 Ambulatory OVI LANGE Facility:[facility] Procedures Date Procedure Procedure Detail Performing Clinician Start: 06-14-2025 Adult depression scr eening assessment Blake Granger MD Work Phone: Start: 04-04-2025 MISCELLANEOUS SENDOUT K suresh Pena MD Work Phone: Start: 12-14-2024 Adult depression scr eening assessment Inez MENDOZA Work Phone: Start: 09-22-2024 Adult depression scr eening assessment Placido Morales MD Work Phone: Start: 04-09-2017 ANESTH LOWER ARM SURGERY FIDENCIO RAY Start: 04-09-2017 Debridement muscle & fascia 20 sq cm/< OVI EBRAHEIM Plan of Treatment Date Care Activity Detail Author Start: 07-28-2034 DTaP,Tdap and Td Vaccines (3 - Td or Tdap) DTaP,Tdap and Td Vaccines (3 - Td or Tdap) [facility] Start: 06-18-2026 End: 06-18-2026 Patient encounter procedure 06/18/2026 3:30 PM EDT Office Visit [facility] [address] [place] [id number] Blake Granger MD [address] [place], [place] [id number] [facility] Start: 06-14-2026 Adult BMI Follow Up Plan Adult BMI Follow Up Plan [facility] Start: 06-14-2026 Adult BMI Screening Adult BMI Screen ing [facility] Start: 06-14-2026 Depression Screening Depression Scre ening [facility] Start: 06-14-2026 Tobacco Screening Tobacco Screening [facility] Start: 12-14-2025 Adult BMI Follow Up Plan Adult BMI Follow Up Plan [facility] Start: 12-14-2025 Adult BMI Screening Adult BMI Screen ing [facility] Start: 12-14-2025 Depression Screening Depression Scre ening [facility] Start: 12-14-2025 Tobacco Screening Tobacco Screening [facility] Start: 09-22-2025 Adult BMI Screening Adult BMI Screen ing [facility] Start: 09-22-2025 Depression Screening Depression Scre ening [facility] Start: 09-22-2025 Tobacco Screening Tobacco Screening [facility] Start: 07-18-2025 End: 06-18-2026 Testosterone [Mass/volume] in Serum or Plasma Testosterone Lab Routine Testosterone deficiency in male Expected: 07/18/2025 (Approximate), Expires: 06/18/2026 [facility] Work Phone: Comment on above: Expected: 07/18/2025 (Approximate), Expires: 06/18/2026 Start: 06-11-2025 Influenza vaccination [facility] Start: 05-25-2025 End: 05-25-2025 Patient encounter procedure 05/25/2025 2:30 PM EDT Office Visit [facility] [address] [place] [phone] Blake Granger MD [address] [place] [id number] [facility] Start: 05-11-2025 Influenza vaccination Flu vacc ine (Season Ended) [facility] Start: 02-13-2025 End: 05-09-2025 GENETICS STAT SPECIMEN LABEL- REQUIRED FOR INHOUSE GENETIC TESTING GENETICS STAT SPECIMEN LABEL- REQUIRED FOR INHOUSE GENETIC TESTING Lab STAT Family history of seizures Expected: 02/13/2025 (Approximate), Expires: 05/09/2025 [facility] Comment on above: Expected: 02/13/2025 (Approximate), Expires: 05/09/2025 Start: 02-13-2025 End: 05-09-2025 GENOME SEQUENCING - PARENT SAMPLE GENOME SEQUENCING - PARENT SAMPLE Lab Routine Family history of seizures Expected: 02/13/2025 (Approximate), Expires: 05/09/2025 [facility] Work Phone: Comment on above: Expected: 02/13/2025 (Approximate), Expires: 05/09/2025 Start: 12-14-2024 End: 12-14-2025 XR Elbow - left 3 Views X-ray elbow left minimum 3 views Imaging Routine Left elbow pain Expected: 12/14/2024, Expires: 12/14/2025 [employer] Work Phone: Comment on above: Expected: 12/14/2024 , Expires: 12/14/2025 Start: 09-22-2024 End: 09-22-2025 XR Knee - right 3 Views [employer] Work Phone: Comment on above: Expected: 09/22/2024 , Expires: 09/22/2025 Start: 2024 Diabetes screen Diabetes screen [facility] Start: 06-11-2024 COVID-19 Vaccine ( season) COVID-19 Vaccine ( season) [facility] Start: 06-11-2024 Influenza vaccination [facility] Start: 2008 DTaP/Tdap/Td vaccine (1 - Tdap) DTaP/Tdap/Td vaccine (1 - Tdap) [facility] Start: 2008 Hepatitis B Vaccine (1 of 3 - 19+ 3-dose series) Hepatitis B Vaccine (1 of 3 - 19+ 3-dose series) [facility] Start: 2007 Adult BMI Follow Up Plan Adult BMI Follow Up Plan [facility] Start: 2007 Hepatitis C screening Hepatitis C sc reen [facility] Start: 2004 HIV screening HIV screen [facility] Start: 2002 Varicella Vaccine (1 of 2 - 13+ 2-dose series) Varicella Vaccine (1 of 2 - 13+ 2-dose series) [facility] Start: 2001 Depression Screen Depression Screen [facility] Start: 1996 DTaP/Tdap/Td Vaccine (1 - Tdap) DTaP/Tdap/Td Vaccine (1 - Tdap) [facility] Start: 1990 MMR Vaccine (1 of 1 - Standard series) MMR Vaccine (1 of 1 - Standard series) [facility] Start: 1989 Tobacco Counseling Tobacco Counselin g [facility] End: 06-14-2026 CBC W Auto Differential panel - Blood CBC auto differential Lab Routine Encounter for general health examination 1 Occurrences starting 06/14/2025 until 06/14/2026 [facility] Comment on above: 1 Occurrences starti ng 06/14/2025 until 06/14/2026 End: 06-14-2026 Comprehensive metabolic 2000 panel - Serum or Plasma Comprehensive metabolic panel Lab Routine Encounter for general health examination 1 Occurrences starting 06/14/2025 until 06/14/2026 [employer] Work Phone: Comment on above: 1 Occurrences starti ng 06/14/2025 until 06/14/2026 End: 04-04-2025 GENETICS SPECIMEN LABEL- REQUIRED FOR INHOUSE GENETIC TESTING [facility] Work Phone: Comment on above: ONCE for 1 Occurrenc es starting 04/04/2025 until 04/04/2025 End: 04-06-2025 GENOME SEQUENCING - PARENT SAMPLE [facility] Comment on above: One Time for 1 Occur rences starting 04/06/2025 until 04/06/2025 End: 06-14-2026 Lipid 1996 panel - Serum or Plasma Lipid profile Lab Routine Encounter for general health examination 1 Occurrences starting 06/14/2025 until 06/14/2026 [employer] Comment on above: 1 Occurrences starti ng 06/14/2025 until 06/14/2026 MISCELLANEOUS SENDOU T Sendout to [facility] for Genome Trio (Paternal Sample) MISCELLANEOUS SENDOUT Sendout to [facility] for Genome Trio (Paternal Sample) Lab Routine Family history of seizures 04/04/2025 4:58 PM EDT [facility] Work Phone: End: 06-14-2026 Testosterone [Mass/volume] in Serum or Plasma Testosterone Lab Routine Encounter for general health examination 1 Occurrences starting 06/14/2025 until 06/14/2026 [employer] Comment on above: 1 Occurrences starti ng 06/14/2025 until 06/14/2026 End: 06-14-2026 Thyroid profile includes TSH FT4 Thyroid profile includes TSH FT4 Lab Routine Encounter for general health examination 1 Occurrences starting 06/14/2025 until 06/14/2026 [employer] Comment on above: 1 Occurrences starti ng 06/14/2025 until 06/14/2026 Immunizations Immunization Date Immunization Notes Care Provider Rose lomax 07-28-2024 tetanus toxoid, redu jose diphtheria toxoid, and acellular pertussis vaccine, adsorbed Placido Morales MD Work Phone: [facility] 05-03-2023 tetanus toxoid, redu jose diphtheria toxoid, and acellular pertussis vaccine, adsorbed Placido Morales MD Work Phone: [facility] 10-08-2004 influenza, seasonal, injectable Placido Morales MD Work Phone: [facility] 10-08-2004 influenza virus vaccine, unspecified formulation Placido Morales MD Work Phone: [facility] [facility] 05[facility]2001 measles, mumps and rubella virus vaccine Placido Morales MD Work Phone: [facility] Payers Date Payer Category Payer Blue Cross [facility] - [facility] [id number] 2025 Unknown [id number] 2024 Private Health Insurance [id number] 2024 Medicaid [employer] [place] [employer] Member Subscriber Plan / Payer (Effective 2024-Present) Name: Willow Wilkes Relation to Subscriber: Self Name: Willow Wilkes Payer ID: [id number] (NAIC) Type: Not on file Address: [place] [id number] 2023 Unknown [id number] 2017 Unknown [id number] 1989 Unknown [id number] 2.16.840.1.178469.3.579.2. 593 1989 Unknown [id number] 2.16.840.1.240600.3.579.2. 593 1989 Unknown [id number] 2.16.840.1.264587.3.579.2. 593 1989 Unknown [id number] 2.16.840.1.344971.3.579.2. 1259 1989 Unknown [id number] 2.16.840.1.148062.3.579.2. 93 1989 Unknown [id number] 2.16.840.1.909573.3.579.2. 175 1989 Unknown [id number] 2.16.840.1.318575.3.579.2. 1286 1989 Unknown [id number] 2.16.840.1.185044.3.579.2. 1286 1989 Unknown [id number] 2.16.840.1.537741.3.579.2. 1285 1989 Unknown [id number] 2.16.840.1.401246.3.579.2. 128 1989 Unknown [id number] 2.16.840.1.920438.3.579.2. 1285 1989 Unknown [id number] 2.16.840.1.566701.3.579.2. 1286 1989 Unknown [id number] 2.16.840.1.493812.3.579.2. 1286 1989 Unknown [id number] 2.16.840.1.818218.3.579.2. 1286 1959 Unknown [id number] Social History Date Type Detail Facility Start: 04-09-2023 Tobacco smoking status KYIS Smokes tobacco daily [facility] History of tobacco use Tobacco U se Types Packs/Day Years Used Date Smoking Tobacco: Every Day Vaping/E-cigarettes Smokeless Tobacco: Never [facility] Start: 04-09-2023 End: 08-03-2024 Tobacco use and exposure Smokeless tobacco non-user [facility] Start: 09-22-2024 End: 06-14-2025 Alcoholic beverage intake Ex-drinker (finding) [facility] Start: 2020 End: 10-23-2020 History of Social function [facility] Start: 2020 End: 10-23-2020 Social connection and isolation panel [facility] Do you belong to any clubs or organizations such as confucianism groups, unions, fraternal or athletic groups, or school groups? No [facility] How often do you att end meetings of the clubs or organizations you belong to? Not asked [facility] Are you now , , , , never or living with a partner? Never [facility] How hard is it for y ou to pay for the very basics like food, housing, medical care, and heating Somewhat hard [facility] Do you feel stress - tense, restless, nervous, or anxious, or unable to sleep at night because your mind is troubled all the time - these days [OSQ] Not at all [facility] Start: 1990 Sex assigned at Not on file [facility] Start: 11-20-2012 End: 04-27-2016 Sex Male (finding) [facility] Tobacco smoking stat [facility] Tobacco smoking consumption unknown [facility] Start: 08-03-2024 Tobacco smoking status KYIS Never smoked tobacco [employer] [facility] Start: 08-03-2024 Alcohol Comment socially [facility] Goals Date Patient Goal Desired Activity /State Personal health goal Comment on above: Formatting of this n ote might be different from the original. Evaluation of progress towards goal: Safe dc transition from hospital to home with family support. Formatting of this n ote might be different from the original. Evaluation of progress towards goal: Reduce tobacco use to 0 ppd Clinical Notes 09-22-2024 to 06-14-2025 Blake Granger MD - 06/14/2025 3:00 PM Raphael Healy APRN-SLEEP TECHNICIAN - 12/14/2024 2:30 PM Hussain Morales MD - 09/22/2024 10:30 AM EST Note Date & Type Note Facility 06-14-2025 History of Presen t illness Narrative [address] [facility] [id number] Patient: Willow Wilkes Date of : 1990 Encounter Date: 06/14/2025 History of Present Illness: The patient is a 34 y.o. male, an established patient, and is here for Chief Complaint Patient presents with Fatigue Annual Exam . Patient does not drink alcohol. No recreational drugs like cocaine or marijuana. He does vape. Poor sleep as he moves a lot during sleep and snores as well decreased sex drive Fatigue Associated symptoms include fatigue. Annual Exam Associated symptoms include fatigue. Past Medical, Family, and Social History Update: The following portions of the patient's history were reviewed and updated as appropriate: allergies, current medications, past family history, past medical history, past social history, past surgical history and problem list. Past Medical History: Diagnosis Date Anxiety Asthma Back pain Bulging lumbar disc GERD (gastroesophageal reflux disease) Leg injury rt open wound currently Lung mass Varicella Past Surgical History: Procedure Laterality Date BACK SURGERY COLONOSCOPY HAND SURGERY x2 ION ROBOTIC BRONCOSCOPY N/A 05/25/2023 Performed by Alicia Ponce DO at [facility] LAPAROSCOPIC APPENDECTOMY N/A 07/07/2021 Performed by Donald Rose DO at [facility] Current Outpatient Medications Medication Sig Dispense Refill albuterol (PROVENTIL HFA;VENTOLIN HFA) 90 mcg/actuation inhaler Inhale 2 puffs every 6 (six) hours as needed for wheezing. 9 g 5 albuterol (PROVENTIL,VENTOLIN) 2.5 mg /3 mL (0.083 %) nebulizer solution Inhale 3 mL (2.5 mg total) by nebulization every 6 (six) hours as needed for wheezing or shortness of breath. 75 mL 12 budesonide-formoteroL (SYMBICORT) 160-4.5 mcg/actuation inhaler Inhale 2 puffs in the morning and 2 puffs before bedtime. 10.2 g 12 No current facility-administered medications for this visit. (All medications reviewed and updated by provider since last office visit or hospitalization) Allergies: Patient has no known allergies. Tobacco History: Social History Tobacco Use Smoking Status Every Day Types: Vaping/E-cigarettes Smokeless Tobacco Never (If patient a smoker, smoking cessation counseling offered) Social History: Social History Substance and Sexual Activity Alcohol Use Not Currently Review of Systems: Review of Systems Constitutional: Positive for fatigue. Physical Exam: BP 108/78 Pulse 97 Resp 18 Ht 171.5 cm (5' 7.5 ) Wt 103.9 kg (229 lb) SpO2 98% BMI 35.34 kg/m Physical Exam Constitutional: General: He is not in acute distress. Appearance: He is well-developed. HENT: Head: Normocephalic. Right Ear: External ear normal. Left Ear: External ear normal. Nose: Nose normal. Eyes: Conjunctiva/sclera: Conjunctivae normal. Pupils: Pupils are equal, round, and reactive to light. Cardiovascular: Rate and Rhythm: Normal rate and regular rhythm. Heart sounds: Normal heart sounds. No murmur heard. Pulmonary: Effort: Pulmonary effort is normal. Breath sounds: Normal breath sounds. No wheezing. Abdominal: General: Bowel sounds are normal. Palpations: Abdomen is soft. There is no mass. Tenderness: There is no abdominal tenderness. Musculoskeletal: General: Normal range of motion. Cervical back: Normal range of motion. Lymphadenopathy: Cervical: No cervical adenopathy. Skin: General: Skin is warm and dry. Findings: No rash. Neurological: Mental Status: He is alert. Cranial Nerves: No cranial nerve deficit. Coordination: Coordination normal. Psychiatric: Behavior: Behavior normal. Lab Results Component Value Date GLU 94 08/02/2024 CALCIUM 9.8 08/02/2024 SODIUM 135 08/02/2024 K 4.0 08/02/2024 CO2 28 08/02/2024 BUN 17 08/02/2024 CREATININE 0.80 08/02/2024 Lab Results Component Value Date WBC 7.0 08/02/2024 HGB 15.2 08/02/2024 HCT 45.2 08/02/2024 MCV 92 08/02/2024 PLT 272 08/02/2024 Lab Results Component Value Date HGBA1C 5.2 06/20/2020 Assessment and Plan: Willow was seen today for fatigue and annual exam. Diagnoses and all orders for this visit: Encounter for general health examination - Comprehensive metabolic panel; Future - Lipid profile; Future - CBC auto differential; Future - Thyroid profile includes TSH FT4; Future - Testosterone; Future Mild intermittent asthma with acute exacerbation - albuterol (PROVENTIL,VENTOLIN) 2.5 mg /3 mL (0.083 %) nebulizer solution; Inhale 3 mL (2.5 mg total) by nebulization every 6 (six) hours as needed for wheezing or shortness of breath. - albuterol (PROVENTIL HFA;VENTOLIN HFA) 90 mcg/actuation inhaler; Inhale 2 puffs every 6 (six) hours as needed for wheezing. - budesonide-formoteroL (SYMBICORT) 160-4.5 mcg/actuation inhaler; Inhale 2 puffs in the morning and 2 puffs before bedtime. Patient noted to have elevated BMI and the following intervention(s) were applied: encouragement to exercise. Advised to get flu shot. Counseled to stop vaping as it can damage lungs Follow-up: Return for Annual physical. BLAKE GRANGER MD documented in this encounter [facility] 12-14-2024 History of Presen t illness Narrative Images from the original note were not included. [id number] [id number] SUBJECTIVE: Patient ID: Willow Wilkes is a 34 y.o. male. Patient presents to the office with complaints of left elbow pain. A few weeks ago he slipped on the ice and fell on his left arm. He has had medial elbow pain since. Did have a lot of bruising which has improved. The following portions of the patient's history were reviewed and updated as appropriate: allergies, current medications, past family history, past medical history, past social history, past surgical history and problem list. REVIEW OF SYSTEMS: Review of Systems Constitutional: Negative for fatigue, fever and unexpected weight change. HENT: Negative for congestion, ear pain, sinus pressure, sinus pain and sore throat. Eyes: Negative for photophobia, pain, discharge and visual disturbance. Respiratory: Negative for cough and shortness of breath. Cardiovascular: Negative for chest pain, palpitations and leg swelling. Gastrointestinal: Negative for abdominal pain, diarrhea, nausea and vomiting. Endocrine: Negative for polydipsia, polyphagia and polyuria. Genitourinary: Negative for difficulty urinating, frequency, hematuria and urgency. Musculoskeletal: Negative for arthralgias, gait problem, joint swelling and neck pain. Left elbow pain Skin: Negative for pallor and rash. Neurological: Negative for dizziness, weakness, light-headedness and numbness. Psychiatric/Behavioral: Negative for sleep disturbance. The patient is not nervous/anxious. PHYSICAL EXAMINATION: Vitals: 12/14/24 1442 BP: 134/84 Pulse: 90 Resp: 18 SpO2: 99% Weight: 106.6 kg (235 lb) Physical Exam Constitutional: Appearance: He is well-developed. HENT: Head: Normocephalic and atraumatic. Right Ear: External ear normal. Left Ear: External ear normal. Eyes: Conjunctiva/sclera: Conjunctivae normal. Pupils: Pupils are equal, round, and reactive to light. Cardiovascular: Rate and Rhythm: Normal rate and regular rhythm. Heart sounds: Normal heart sounds. Pulmonary: Effort: Pulmonary effort is normal. Breath sounds: Normal breath sounds. Musculoskeletal: Right elbow: Normal. Left elbow: Tenderness present. Arms: Cervical back: Normal range of motion. Skin: General: Skin is warm and dry. Neurological: Mental Status: He is alert and oriented to person, place, and time. Psychiatric: Mood and Affect: Mood normal. ASSESSMENT/PLAN: Willow was seen today for arm pain. Diagnoses and all orders for this visit: Fall, initial encounter Left elbow pain - X-ray elbow left minimum 3 views; Future Follow-up: X-ray left elbow Will call with results May need ortho consult Keep routine appointments Patient noted to have elevated BMI and the following intervention(s) were applied: encouragement to exercise. REJI Lay 12/14/24 2202 documented in this encounter [facility] 09-22-2024 History of Presen t illness Narrative Images from the original note were not included. [address] [place] [id number] SUBJECTIVE: Transition of Care Additional Questions/Concerns Requiring PCP Follow-Up: This documentation is being used for Transition of Care purposes: Yes Goal: Patient will demonstrate a safe transition from hospital to home. Diagnosis on Discharge: Discharge Specialty: Pulmonology Name of Discharging Facility: [facility] Date of Facility Discharge: 09/09/24 - 09/12/24 Date of Interactive Contact and Name of Canary Raiser: Unable to reach patient x 2 Medication Review Completed: No Medication Reconciliation Questions/Concerns: Follow Up Appointments with Providers: Primary: Placido Morales MD PAVEL 09/20/24 @ 3:00 Specialty: Pulm Dr Barker- 09/19/24 @ 1:45 Specialty: Specialty: Review of Pending Lab/Diagnostic Tests and Plan for Completion: -negative for influenza, COVID, and RSV. -CXR unremarkable CT chest w/o contrast: mild mucus plugging RUL (likely scare tissue from old lung mass) Assessment and Support of Treatment Regimen Adherence and Medication Management: Education Provided by ACN to Support Self-Management, Independent Living and ADLs: Communication with Home Health Agencies and Other Services Utilized/Needed by the Patient: Patient ID: Willow Wilkes is a 34 y.o. male. 34 yo WM with PAVEL for asthma attack, sick x 1 week and went to ER 09/09 and admitted and d/c 09/12, has completed antibiotic and steroids The following portions of the patient's history were reviewed and updated as appropriate: allergies, current medications, past family history, past medical history, past social history, past surgical history and problem list. REVIEW OF SYSTEMS: Review of Systems HENT: Negative for congestion. Respiratory: Positive for wheezing. Negative for cough. Cardiovascular: Negative. Gastrointestinal: Negative. Heartburn Genitourinary: Negative. Musculoskeletal: Positive for arthralgias. PHYSICAL EXAMINATION: Vitals: 09/22/24 1032 BP: 130/80 BP Site: Left Arm BP Postition: Sitting BP CUFF SIZE: M (9-13 inches) Pulse: 88 Resp: 16 Temp: 36.7 C (98.1 F) TempSrc: Tympanic Weight: 108.6 kg (239 lb 8 oz) Height: 175.3 cm (5' 9 ) Physical Exam Vitals and nursing note reviewed. Constitutional: Appearance: Normal appearance. HENT: Head: Normocephalic and atraumatic. Eyes: Extraocular Movements: Extraocular movements intact. Pupils: Pupils are equal, round, and reactive to light. Cardiovascular: Rate and Rhythm: Normal rate and regular rhythm. Pulses: Normal pulses. Heart sounds: Normal heart sounds. Pulmonary: Effort: Pulmonary effort is normal. Breath sounds: Normal breath sounds. Skin: General: Skin is warm and dry. Neurological: General: No focal deficit present. Mental Status: He is alert and oriented to person, place, and time. Psychiatric: Mood and Affect: Mood normal. Behavior: Behavior normal. ASSESSMENT/PLAN: Willow was seen today for pavel. Diagnoses and all orders for this visit: Mild intermittent asthma with acute exacerbation Follow-up: Proventil escape inhaler and symbicort refilled to [facility] pt with f/u lung doctor Right knee xray documented in this encounter [facility] 09-22-2024 Miscellaneous Notes Addended by: PLACIDO MORALES on: 09/22/2024 10:49 AM Modules accepted: Orders documented in this encounter [facility] 09-22-2024 Note Addended by: PLACIDO BREWSTER on: 09/22/2024 10:49 AM Modules accepted: Orders [facility] Evaluation note Diagnosis Acute pain of right knee- Primary Mild intermittent asthma with acute exacerbation [facility] Diagnosis Fall, initial encounter- Primary Left elbow pain Pain in joint, upper arm documented [facility] this encounter [facility] Diagnosis Family history of seizures- Primary Family history of other condition documented in this encounter [facility] Diagnosis Family history of seizures Family history of other condition documented in this encounter [facility] Diagnosis Encounter for general health examination- Primary Mild intermittent asthma with acute exacerbation documented [facility] this encounter [facility]* Diagnosis Testosterone deficiency in male- Primary documented in this [facility] System[facility]ructionsNot on filedocumented in this encounter [facility]* Attachments The following attachments cannot be sent through Care Everywhere. * Joint Pain (Moroccan) documented in [facility] SystemInstructionsNot on file documented in this [facility] SystemInstructionsNot on file [facility] in [facility] Summary Purpose Family History No Family History Records FoundNo Family History Records FoundNo Family History Records FoundNo Family History Records FoundNo Family History Records FoundNo Family History Records FoundNo Family History Records FoundNo Family History Records FoundNo Family History Records FoundNo Family History Records Found Advance Directives Date Activated Date Inactivated Comments 07/07/2021 11:17 AM 07/08/2021 4:10 PM Date Activated Date Inactivated Comments 2020 9:42 AM 06/21/2020 12:56 PM Date Activated Date Inactivated Comments 07/07/2021 11:17 AM 07/08/2021 4:10 PM Date Activated Date Inactivated Comments 2020 9:42 AM 06/21/2020 12:56 PM Date Activated Date Inactivated Comments 08/03/2024 12:27 PM 08/03/2024 6:57 PM Additional Source Comments (unrecognized sect ion and content) No Status Records FoundNo Status Records FoundNo Status Records FoundNo Status Records FoundNo Status Records FoundNo Status Records FoundNo Status Records FoundNo Status Records FoundNo Status Records FoundNo Status Records Found INFORMATION SOURCE (unrecogn ized section and content) DATE CREATED AUTHOR 04/04/2018 [facility] DATE CREATED AUTHOR AUTHOR'S ORGANIZ ATION 04/05/2018 [facility] DATE CREATED AUTHOR AUTHOR'S ORGANIZ ATION 04/06/2018 [facility] DATE CREATED AUTHOR AUTHOR'S ORGANIZ ATION 06/02/2020 [facility] DATE CREATED AUTHOR AUTHOR'S ORGANIZ ATION 12/17/2023 [facility] DATE CREATED AUTHOR AUTHOR'S ORGANIZ ATION 08/12/2024 [facility] DATE CREATED AUTHOR AUTHOR'S ORGANIZ ATION 04/06/2025 [facility] DATE CREATED AUTHOR AUTHOR'S ORGANIZ ATION 06/16/2025 [facility] DATE CREATED AUTHOR AUTHOR'S ORGANIZ ATION 06/18/2025 [facility] DATE CREATED AUTHOR AUTHOR'S ORGANIZ ATION 06/18/2025 [facility] Reason for Visit (unrecogniz ed section and content) Reason Comments PAVEL Reason Comments Arm Pain Reason Comments Fatigue Annual Exam Care Teams (unrecognized sec tion and content) Side Door Worker Relationship Specialty Start Date End Date Placido Morales MD [address] [place] [address] [place] [address] PCP - General Family Medicine 11/28/23 Side Door Worker Relationship Specialty Start Date End Date Placido Morales MD [address] [place] [address] [place] [address] PCP - General Family Medicine 11/28/23 Side Door Worker Relationship Specialty Start Date End Date Blake Granger MD [address] [place] [address] PCP - General Internal Medicine 06/14/25 Side Door Worker Relationship Specialty Start Date End Date Blake Granger MD [address] [place] [address] PCP - General Internal Medicine 06/14/25 FOR RECORDS PERTAINING TO PATIENTS WHO ARE [...] BE BASED ON THE PRIMARY CLINICAL RECORDS. [facility] [employer] [facility]. provides no warranty or guarantee of the accuracy or completeness of information in this document.
--- OUTSIDE RECORDS SUMMARY | 2025-07-21 19:38 | XMS_ITS | Encounter Summary ---
Author Organization [employer] Address [id number] [address] [place] [address] Care Team Providers Care Class B Driver Name Role Phone Blake Perez MD Primary Care Provider [phone] Encounter Details Date Type Department Care Team (Late st Contact Info) Description 09/10/2023 Orders Only [facility] [address] [place] [address] Umu Christy LPN Acute pain of right shoulder Social History Tobacco Use Types Packs/Day Years [...] often do you attend chur ch or shinto services? Never 2020 Do you belong to any clubs o r organizations such as adventism groups, unions, fraternal or athletic groups, or [...] Answer Date Recorded Total Score 0 08/04/2023 [facility] - Occupational Stress Questionnaire Answer Date [...] Recorded Do you need help finding a [facility] career center and/or a [...] EDT Office Visit [facility] [place] [address] Blake Perez MD [address] [place] [address] documented as of this encounter Goals Goal [...] as of this encounter Visit Diagnoses Diagnosis Acute pain of right shoulder documented in this encounter Additional Health Concerns Infection Onset Date Last Indicated Resolved Time COVID-19 Rule-Out 06/22/2024 06/22/2024 06/22/2024 2:53 AM EDT Assessment Noted Time PHQ-9 Depression Total Score: 0 08/04/20 7:00 AM EDT documented as of this encounter Care Teams Class B Driver Relationship Specialty Start Date End Date Blake Perez MD [address] [place] [address] PCP - General Internal Medicine 06/14/25 documented as of this encounter
--- OUTSIDE RECORDS SUMMARY | 2025-07-21 19:38 | XMS_ITS | Clinical Summary ---
Author Organization [employer] tem Address [id number] [address] [place] [address] Care Team Providers Care Stunt Driver Name Role Phone Blake Perez MD Primary Care Provider [phone] Allergies No known active allergies Medications albuterol (PROVENTIL,EBONI SHARON) 2.5 mg /3 mL (0.083 %) nebulizer solutionIndicati ons:Mild intermittent asthma with acute exacerbation Inhale 3 mL (2.5 mg total) by nebulization every 6 (six) hours as needed for wheezing or shortness of breath. 75 mL 12 5 Active albuterol (PROVENTIL HFA;VENTOLIN HFA) 90 mcg/actuation inhalerIndicatio ns:Mild intermittent asthma with acute exacerbation Inhale 2 puffs every 6 (six) hours as needed for wheezing. 9 g 5 5 Active budesonide-formo teroL (SYMBICORT) 160-4.5 mcg/actuation inhalerIndicatio ns:Mild intermittent asthma with acute exacerbation Inhale 2 puffs in the morning and 2 puffs before bedtime. 10.2 g 12 5 Active Active Problems Problem Noted Date Diagnosed Date Hemoptysis 05/06/2023 Mild persistent asthma without complication 06/2022 Lung mass 03/19/2022 Eosinophilia 03/19/2022 History of tobacco use 03/19/2022 RLQ abdominal pain 07/08/2021 Sterilization consult 07/31/2019 Overview (07/31/2019): 08/01/19: The patient (and those present with him) were informed as to the risks of the vasectomy. These include: infection, bleeding, pain (acute and chronic), regrowth and reconstitution of the lumen with return of fertility. He was informed as the need to maintain contraception until he brings in two samples one month apart beginning 2 months after the procedure and they have been read as having no sperm. He also was made aware as to the need to bring in to the office future semen samples as outlined to him to have these checked for the presence of sperm. Resolved Problems Problem Noted Date Diagnosed Date Resolved Date RLQ abdominal pain 07/07/2021 1 Acute respiratory failure 2020 Laceration of hand 02/03/2019 2 Encounters Date Type Department Care Team Description 06/18/2025 Results [facility] [address] [place] [address] [place] [address] Blake Perez MD Comprehensive metabolic panel, Lipid profile, CBC auto differential, Additional followed-up results: 2 06/18/2025 Orders Only [facility] [address] [place], [place] [address] [address] Blake Perez MD Testosterone deficiency in male (Primary Dx) 06/16/2025 Travel 06/14/2025 3:00 PM EDT Office Visit [address] [place] [address] Blake Perez MD Encounter for general health examination (Primary Dx); Mild intermittent asthma with acute exacerbation 06/12/2025 Travel from Last 3 Months Immunizations Immunization Administration Dates Next Due Influenza, Im Trivalent Preservative 10/08/2004 MMR 05/27/2001 Tdap 07/28/2024,05/03/2023 Family History Medical History Relation Name Comments Diabetes Father Hypertension Father Asthma Mother Maryann Heart disease Mother Maryann Anesthesia problems Neg Hx Relation Name Status Comments Father Alive Mother Maryann Social History Tobacco Use Types Packs/Day Years Used Date Smoking Tobacco: Every Day Vaping/E-cigarettes Smokeless Tobacco: Never Tobacco Cessation:Ready to Q uit: Not Asked; Counseling Given: Not Answered Alcohol Use Standard Drinks/Week [...] often do you attend chur ch or adventism services? Never 2020 Do you belong to any clubs o r organizations such as mormonism groups, unions, fraternal or athletic groups, or [...] Answer Date Recorded Total Score 0 06/14/2025 [facility] of Occupat ional Health - Occupational Stress [...] Recorded Do you need help finding a [facility] and/or a training program? [...] Sign Reading Time Taken Comments Blood Pressure 108/78 06/14/2025 3:08 PM EDT Pulse 97 06/14/2025 3:08 PM EDT Temperature 36.7 C (98.1 F) 09/22/2024 10:32 AM EST Respiratory Rate 18 06/14/2025 3:08 PM EDT Oxygen Saturation 98% 06/14/2025 3:08 PM EDT Inhaled Oxygen Concentration - - Weight 103.9 kg (229 lb) 06/14/2025 3:08 PM EDT Height 171.5 cm (5' 7.5 ) 06/14/2025 3:08 PM EDT Body Mass Index 35.34 06/14/2025 3:08 PM EDT Plan of Treatment Upcoming Encounters Date Type Department Care Team (Late st Contact Info) Description 06/18/2026 3:30 PM EDT Office Visit [facility] [address] [place] [address] Blake Perez MD [address] [place] [address] Health Maintenance Due Date Last Done Comments Tobacco Counseling 1989 Influenza Vaccine 06/11/2025 10/08/2004 Adult BMI Follow Up Plan 06/14/2026 06/14/2025 Adult BMI Screening 06/14/2026 06/14/2025 Depression Screening 06/14/2026 06/14/2025 Tobacco Screening 06/14/2026 06/14/2025 DTaP,Tdap and Td Vaccines (3 - Td or Tdap) 07/28/2034 07/28/2024, 05/03/2023 Goals Goal Patient Goal Type Associated Problems Recent Progress Patient-Stated? Author Home General Yes Maria De Jesus Soto LSW Note: Evaluation of progress towards goal: Safe dc transition from hospital to home with family support. Quit smoking / using tobacco Lifestyle No Maria De Jesus Soto LSW Note: Evaluation of progress towards goal: Reduce tobacco use to 0 ppd Medical Devices Not on file Procedures Procedure Name Priority Date/Time Associated Diagnosis Comments TESTOSTERONE Routine 06/16/2025 10:14 AM EDT Encounter for general health examination THYROID PROFILE INCLUDES TSH FT4 Routine 06/16/2025 10:14 AM EDT Encounter for general health examination CBC WITH AUTO DIFFERENTIAL Routine 06/16/2025 10:14 AM EDT Encounter for general health examination LIPID PROFILE Routine 06/16/2025 10:14 AM EDT Encounter for general health examination COMPREHENSIVE METABOLIC PANEL Routine 06/16/2025 10:14 AM EDT Encounter for general health examination from Last 3 Months Results * Thyroid profile includes TSH FT4 (06/16/2025 10:14 AM EDT) FREE T4 0.84 0.61 - 1.60 ng/dL 06/16/2025 4:01 PM EDT [facility] TSH 1.91 0.49 - 4.67 uIU/mL 06/16/2025 4:01 PM EDT [facility] Blood Venous blood / Unknown Venipuncture / Unknown 06/16/2025 10:14 AM EDT 06/16/2025 10:14 AM EDT us Blake Perez MD LAB BLOOD ORDERABLES Final Res ult [facility] [address] [place] [address], [place] [phone] * CBC auto differential (06/16/2025 10:14 AM EDT) WBC 6.4 4 - 11 x10E9/L 06/16/2025 3:36 PM EDT [facility] RBC Count 5.18 4.1 - 5.7 X10E12/L 06/16/2025 3:36 PM EDT [facility] Hemoglobin 15.6 13 - 17 g/dL 06/16/2025 3:36 PM EDT [facility] Hematocrit 46.3 39 - 50 % 06/16/2025 3:36 PM EDT [facility] MCV 89 80 - 100 fL 06/16/2025 3:36 PM EDT [facility] MCH 30.1 27 - 34 pg 06/16/2025 3:36 PM EDT [facility] MCHC 33.7 32 - 36 g/dL 06/16/2025 3:36 PM EDT [facility] RDW 13.2 11.5 - 15 % 06/16/2025 3:36 PM EDT [facility] Platelet Count 267 150 - 450 X10E9/L 06/16/2025 3:36 PM EDT [facility] MPV 8.4 7 - 12 fL 06/16/2025 3:36 PM EDT [facility] Neutrophils % 60.3 % 06/16/2025 3:36 PM EDT [facility] Lymphocytes % 24.5 % 06/16/2025 3:36 PM EDT [facility] Monocytes % 9.0 % 06/16/2025 3:36 PM EDT [facility] Eosinophils % 5.6 % 06/16/2025 3:36 PM EDT [facility] Basophils % 0.6 % 06/16/2025 3:36 PM EDT [facility] Neutrophils Absolute (A) 3.9 1.5 - 6.6 10*3/uL 06/16/2025 3:36 PM EDT [facility] Lymphocytes Absolute 1.6 1.0 - 3.5 10*3/uL 06/16/2025 3:36 PM EDT [facility] Monocytes Absolute 0.6 0.0 - 0.9 10*3/uL 06/16/2025 3:36 PM EDT [facility] Eosinophils Absolute 0.4 0.0 - 0.4 10*3/uL 06/16/2025 3:36 PM EDT [facility] Basophils Absolute 0.0 0.0 - 0.2 10*3/uL 06/16/2025 3:36 PM EDT [facility] Differential Type AUTOMATED DIFFERENTIAL 06/16/2025 3:36 PM EDT [facility] Blood Venous blood / Unknown Venipuncture / Unknown 06/16/2025 10:14 AM EDT 06/16/2025 10:14 AM EDT Blake Perez MD LAB BLOOD ORDERABLES Final Res ult [facility] [address] [place] [address], * Testosterone (06/16/2025 10:14 AM EDT) TESTOSTERONE 2.25 1.68 - 7.46 ng/mL 06/16/2025 3:47 PM EDT [facility] Blood Venous blood / Unknown Venipuncture / Unknown 06/16/2025 10:14 AM EDT 06/16/2025 10:14 AM EDT Blake Perez MD LAB BLOOD ORDERABLES Final Res ult Performing Organization Address City/[facility]/ZIP Co de Phone Number [facility] [address] [place] [address], * Lipid profile (06/16/2025 10:14 AM EDT) CHOLESTEROL 188 150 - 200 mg/dL 06/16/2025 3:48 PM EDT [facility] TRIGLYCERIDE 130 27 - 150 mg/dL 06/16/2025 3:48 PM EDT [facility] HDL CHOLESTEROL 43 >39 mg/dL 3:48 PM EDT [facility] Comment: HDL <40 mg/dL - High Risk HDL > or = 40mg/dL- Desirable HDL >60 mg/dL - Negative Risk LDL (CALC) 119 <130 mg/dL 06/16/2025 3:48 PM EDT [facility] Comment: LDL <100 mg/dL - Desirable LDL >160 mg/dL - High Risk CHOLESTEROL:HDL 4.4 1.0 - 5.0 3:48 PM EDT [facility] VERY LOW LIPOPROTEIN 26 0 - 30 mg/dL 06/16/2025 3:48 PM EDT [facility] Blood Venous blood / Unknown Venipuncture / Unknown 06/16/2025 10:14 AM EDT 06/16/2025 10:14 AM EDT Blake Perez MD LAB BLOOD ORDERABLES Final Res ult [facility] [address] [place] [address], * Comprehensive metabolic panel (06/16/2025 10:14 AM EDT) SODIUM 138 134 - 146 mmol/L 06/16/2025 3:48 PM EDT [facility] POTASSIUM 4.2 3.5 - 5.0 mmol/L 06/16/2025 3:48 PM EDT [facility] CHLORIDE 101 98 - 109 mmol/L 06/16/2025 3:48 PM EDT [facility] CARBON DIOXIDE 29 22 - 32 mmol/L 06/16/2025 3:48 PM EDT [facility] ANION GAP 8 5 - 15 mmol/L 06/16/2025 3:48 PM T [facility] BLOOD UREA NITROGEN 16 5 - 23 mg/dL 06/16/2025 3:48 PM T [facility] CREATININE 0.77 0.60 - 1.30 mg/dL 06/16/2025 3:48 PM EDT [facility] Comment:METHOD TRACEABLE TO IDKY STANDARD GLUCOSE 86 65 - 99 mg/dL 06/16/2025 3:48 PM T [facility] CALCIUM 10.0 8.5 - 10.5 mg/dL 06/16/2025 3:48 PM T [facility] TOTAL PROTEIN 8.0 6.0 - 8.0 g/dL 06/16/2025 3:48 PM T [facility] ALBUMIN 4.9 3.2 - 5.3 g/dL 06/16/2025 3:48 PM T [facility] ALKALINE PHOSPHATASE 56 39 - 130 U/L 06/16/2025 3:48 PM T [facility] AST 20 <=41 U/L 06/16/2025 3:48 PM T [facility] ALT 24 <=40 U/L 06/16/2025 3:48 PM T [facility] BILIRUBIN,TOTAL 0.8 0.3 - 1.2 mg/dL 06/16/2025 3:48 PM T [facility] EGFR Non-Race Dependent >90 >=60 ml/min/1.7 3sq.m 06/16/2025 3:48 PM T [facility] Comment: Reported eGFR is based on the CKD-EPI 2020 equation that does not use a race coefficient. Blood Venous blood / Unknown Venipuncture / Unknown 06/16/2025 10:14 AM EDT 06/16/2025 10:14 AM EDT us Blake Perez MD LAB BLOOD ORDERABLES Final Res ult [facility] [address] [place] [address], [place] [phone] from Last 3 Months Insurance [employer] Advance Directives * Full Code (Latest Code Status on File) Date Activated Date Inactivated Comments 07/07/2021 11:17 AM 07/08/2021 4:10 PM * Full Code Date Activated Date Inactivated Comments 2020 9:42 AM 06/21/2020 12:56 PM Care Teams Stunt Driver Relationship Specialty Start Date End Date Blake Perez MD [address] [place] [address] PCP - General Internal Medicine 06/14/25
--- OUTSIDE RECORDS SUMMARY | 2025-07-21 19:38 | XMS_ITS | Encounter Summary ---
Author Organization [facility] Address [id number] [address] [place] [address] Care Team Providers Care Energy Assistant Name Role Phone Blake Perez MD Primary Care Provider [phone] Encounter Details Date Type Department Care Team (Late st Contact Info) Description 07/07/2022 Telephone [facility] [address] [address] Amairani Kent RN Social History Tobacco Use Types Packs/Day [...] often do you attend chur ch or mormon services? Never 2020 Do you belong to any clubs o r organizations such as uatsdin groups, unions, fraternal or athletic groups, or [...] Answer Date Recorded Total Score 0 03/02/2022 [facility] [place] of Occupat ional Health - Occupational Stress [...] Recorded Do you need help finding a [facility] career center and/or a training program? No 2020 Purpose - Life Answer Date Recorded Purpose and direction in life Unknown Sex and Gender Information Value Date Recorded Sex Assigned at Not on file Legal Sex Male 8:33 PM EDT Gender Identity Not on file Sexual Orientation Not on file documented as of this encounter Miscellaneous Notes * Telephone Encounter - Amairani Kent RN - 07/07/2022 4:10 PM EDT Pt has cancelled or no showed x 3 pcp attached documented in this encounter Plan of Treatment Upcoming Encounters Date Type Department Care Team (Late st Contact Info) Description 06/18/2026 3:30 PM EDT Office Visit [facility] [address] [place] [phone] Blake Perez MD [facility] [place], [place] [id number] documented as of this encounter Goals Goal [...] Time PHQ-9 Depression Total Score: 0 03/02/20 22 8:00 AM EDT documented as of this encounter Care Teams Energy Assistant Relationship Specialty Start Date End Date Blake Perez MD [address] [place] [address] PCP - General Internal Medicine 06/14/25 documented as of this encounter
--- OUTSIDE RECORDS SUMMARY | 2025-07-21 19:38 | XMS_ITS | Clinical Summary ---
Author Organization [facility] Address [address] [facility] [address] [address], [address] [place] [address] Care Team Providers Care Tallow Maker Name Role Phone Unavailable Primary Care Provider Unavailabl e Allergies No known active allergies Medications albuterol (ACCUNEB) 0.63 MG/3ML nebulizer solution Take 3 mLs by nebulization every 6 hours as needed for Wheezing Active Social History Tobacco Use Types Packs/Day Years Used Date Smoking Tobacco: Never Smokeless Tobacco: Never Tobacco Cessation:Counseling Given: Not Answered Alcohol Use Standard Drinks/Week Comments Not Currently 0 (1 standard drink = 0.6 oz pur e alcohol) socially Interpersonal Safety Domain Source: IP Abuse Scr eening Answer Date Recorded Physical abuse Denies 08/03/2024 Verbal abuse Denies 08/03/2024 Emotional abuse Denies 08/03/2024 Financial abuse Denies 08/03/2024 Sexual abuse Denies 08/03/2024 Sex and Gender Information Value Date Recorded Sex Assigned at Not on file Legal Sex Male 2:41 PM EST Gender Identity Not on file Sexual Orientation Not on file Last Filed Vital Signs Vital Sign Reading Time Taken Comments Blood Pressure 120/88 08/03/2024 4:50 PM EDT Pulse 103 08/03/2024 4:50 PM EDT Temperature 36.1 C (96.9 F) 08/03/2024 4:31 PM EDT Respiratory Rate 18 08/03/2024 4:50 PM EDT Oxygen Saturation 97% 08/03/2024 4:50 PM EDT Inhaled Oxygen Concentration - - Weight 102.9 kg (226 lb 12.8 oz) 2023 12:30 PM EDT Height 175.3 cm (5' 9 ) 08/03/2024 12:3 0 PM EDT Body Mass Index 33.49 08/03/2024 12:30 PM EDT Plan of Treatment Health Maintenance Due Date Last Done Comments Depression Screen 2001 Varicella vaccine (1 of 2 - 13+ 2-dose series) 2002 HIV screen 2004 Hepatitis C screen 2007 DTaP/Tdap/Td vaccine (1 - Tdap) 2008 Hepatitis B vaccine (1 of 3 - 19+ 3-dose series) 2008 Diabetes screen 2024 Flu vaccine (#1) 05/11/2025 COVID-19 Vaccine ( - 2023-2 5 season) 2025 HPV vaccine (No Doses Required) Completed Hepatitis A vaccine Aged Out No longe r eligible based on patient's age to complete this topic Hib vaccine Aged Out No longer eligi ble based on patient's age to complete this topic Meningococcal (ACWY) vaccine Aged Out No longer eligible based on patient's age to complete this topic Meningococcal B vaccine Aged Out No l onger eligible based on patient's age to complete this topic Pneumococcal 0-49 years Vaccine Aged Out No longer eligible based on patient's age to complete this topic Polio vaccine Aged Out No longer elig ible based on patient's age to complete this topic Insurance [employer] [place] Advance Directives * Full Code (Latest Code Status on File) Date Activated Date Inactivated Comments 08/03/2024 12:27 PM 08/03/2024 6:57 PM
--- OUTSIDE RECORDS SUMMARY | 2025-07-21 19:38 | XMS_ITS | Encounter Summary ---
Author Organization [employer] [facility] tem Address [id number] [address] [place] [address] Care Team Providers Care Body Mechanic Apprentice Name Role Phone Blake Perez MD Primary Care Provider [phone] Encounter Details Date Type Department Care Team ([facility] Contact Info) Description 04/16/2020 Telephone [facility] [address] [place] [address] Sanjiv Morales MD [address] [facility]. Provider retired 01/09/25 [place], [place] [id number] Social History Tobacco Use Types Packs/Day Years Used Date Smoking Tobacco: Every Day Cigarettes Smokeless Tobacco: Never Alcohol Use Standard Drinks/Week Comments Yes 0 (1 standard drink = 0.6 oz pur e alcohol) rarely AUDIT-C Answer Date Recorded Frequency of Alcohol Consumption Never 10/30/2018 Average Number of Drinks Not on file 019 Frequency of Binge Drinking Not on file 10/12 PHQ-2 Answer Date Recorded PHQ-2 Score 0 02/03/2019 Childcare Answer Date Recorded Childcare Unknown 03/22/2019 Employment Answer Date Recorded Employment Unknown 03/22/2019 Sex and Gender Information Value Date Recorded Sex Assigned at Not on file Legal Sex Male 8:33 PM EDT Gender Identity Not on file Sexual Orientation Not on file COVID-19 Exposure Response Date Recorded In the last month, have you been in contact with someone who was confirmed or suspected to have Coronavirus / COVID-19? No / Unsure 04/15/2020 7:25 AM EDT documented as of this encounter Plan of Treatment Upcoming Encounters Date Type Department Care Team ([facility] Contact Info) Description 06/18/2026 3:30 PM EDT Office Visit [facility] [place] [phone] Blake Perez MD [facility] [place] [address] documented as of this encounter Visit Diagnoses Not on filedocumented in this encounter Additional Health Concerns Infection Onset Date Last Indicated Resolved Time COVID-19 Rule-Out 05/31/2020 05/27/2020 05/31/2020 10:48 AM EDT COVID-19 Rule-Out Comment:Current isolation 2020 2020 2020 9:32 AM E DT Enteric Rule-Out 06/20/2020 06/20/2020 06/27/2020 11:13 PM EDT COVID-19 Rule-Out 09/15/2021 09/15/2021 09/15/2021 3:14 AM EST COVID-19 Positive 09/15/2021 09/15/2021 10/06/2021 11:12 PM EST COVID-19 Rule-Out 03/31/2022 03/31/2022 03/31/2022 1:30 PM EDT COVID-19 Rule-Out 12/06/2022 12/06/2022 12/06/2022 11:51 PM EST COVID-19 Rule-Out 05/04/2023 05/04/2023 05/04/2023 6:15 AM EDT COVID-19 Rule-Out 06/22/2024 06/22/2024 06/22/2024 2:53 AM EDT Assessment Noted Time PHQ-9 Depression Total Score: 0 04/09/20 20 2:00 PM EDT documented as of this encounter Care Teams Body Mechanic Apprentice Relationship Specialty Start Date End Date Blake Perez MD [address] [place] [address] PCP - General Internal Medicine 06/14/25 documented as of this encounter
--- OUTSIDE RECORDS SUMMARY | 2025-07-21 19:38 | XMS_ITS | Encounter Summary ---
Author Organization [employer] Address [id number] [address] [place] [address] Care Team Providers Care Mobile Home Laborer Name Role Phone Blake Preez MD Primary Care Provider [phone] Encounter Details Date Type Department Care Team (Late st Contact Info) Description 2020 Telephone [facility] [address] [place] [address] Sanjiv Morales MD [address]. Provider retired 01/09/25 [place], [place] [id number] Social History Tobacco Use Types Packs/Day Years [...] often do you attend chur ch or catholic services? Never 2020 Do you belong to any clubs o r organizations such as hinduism groups, unions, fraternal or athletic groups, or [...] Answer Date Recorded PHQ-2 Score 0 02/03/2019 [facility] of Occupat ional Health - Occupational [...] Recorded Do you need help finding a [facility] career center and/or a training program? [...] have Coronavirus / COVID-19? No / Unsure 2020 9:53 AM EDT documented as of this encounter Miscellaneous Notes * Telephone Encounter - Sanjiv Morales MD - 2020 9:16 AM EDT PAVEL/HFU documented in this encounter Plan of Treatment Upcoming Encounters Date Type Department Care Team (Late st Contact Info) Description 06/18/2026 3:30 PM EDT Office Visit [facility] [address] [place] [phone] Blake Perez MD [address] [place] [address] documented as of this encounter [...] Date Last Indicated Resolved Time COVID-19 Rule-Out Comment:Current isolation 2020 2020 2020 [...] Time PHQ-9 Depression Total Score: 0 06/19/20 9:56 AM EDT documented as of this encounter Care Teams Mobile Home Laborer Relationship Specialty [place] [address] [place] [address] PCP - General Internal Medicine 06/14/25 documented as of this encounter
--- OUTSIDE RECORDS SUMMARY | 2025-07-21 19:38 | XMS_ITS | Encounter Summary ---
Author Organization [facility] Address [id number] [address] [place] [address] Care Team Providers Care 3D Animator Name Role Phone Blake Perez MD Primary Care Provider Reason for Visit * Reason Onset Date Comments Med Refill 12/26/2020 Encounter Details Date Type Department Care Team (Late st Contact Info) Description 12/26/2020 Refill [facility] [address] [place] [phone] Umu Christy LPN Social History Tobacco Use [...] often do you attend chur ch or congregational services? Never 2020 Do you belong to any clubs o r organizations such as christianity groups, unions, fraternal or athletic groups, or [...] Answer Date Recorded Total Score 0 10/24/2020 [facility] of Occupat ional [facility] - Occupational Stress Questionnaire Answer Date [...] Recorded Do you need help finding a [facility] career center and/or a training [...] EDT Office Visit [facility] [address] [place] [phone] Blake Perez MD [address] [place] [address] documented as of this encounter Goals [...] documented as of this encounter Care Teams 3D Animator Relationship Specialty Start Date End Date Blake Perez MD [address] [place] [address] PCP - General Internal Medicine 06/14/25 documented as of this encounter
--- OUTSIDE RECORDS SUMMARY | 2025-07-21 19:38 | XMS_ITS | Encounter Summary ---
Author Organization [facility] Address [id number] [address] [place] [address] Care Team Providers Care Starting Gate Driver Name Role Phone Blake Perez MD Primary Care Provider [phone] Encounter Details Date Type Department Care Team (Late st Contact Info) Description 05/07/2023 Telephone [facility] [address] [place] [address] Alicia Ponce DO [address] [id number] Social History Tobacco Use Types Packs/Day Years [...] often do you attend chur ch or protestant services? Never 2020 Do you belong to any clubs o r organizations such as orthodox groups, unions, fraternal or athletic groups, or [...] PHQ-2 Answer Date Recorded Total Score 0 01/18/2023 [facility] - Occupational [...] help finding a [facility] career center and/or a training program? No [...] Telephone Encounter - Josette Zacarias RN - 05/07/2023 7:45 AM EDT Photoflash Powder Mixer spoke to patient and informed of the following: CT Ion Navigational procedure is scheduled for May at 9:15 am. Patient to arrive to [facility] at 7:15 am. Patient to report to Entrance B and go to information desk and they will direct patient to admitting or the surgery waiting room. Patient will need to complete labs by May Patient is scheduled for CT Ion on May at 8:00 am at [facility] Patient is scheduled for PFT on May at 9:00 am at [facility]. Patient to have pre-admission phone call on May at 9:00 am To prepare for the procedure, the patient must do the following: Nothing to eat or drink after midnight the night before procedure No aspirin or aspirin containing products three days prior to procedure. Tylenol Only Make arrangements for a intermodal truck driver to bring you to and from the hospital on the day of the procedure Bring your ID, current medication list and insurance cards to the hospital Call our office if you become ill such as a cold, cough, fever, sore throat or vomiting on the day before or day of the procedure Patient agreeable to above information and verbalized understanding Photoflash Powder Mixer to update Dr Ponce Case #[id number] documented in this encounter Plan of Treatment Upcoming Encounters Date Type Department Care Team (Late st Contact Info) Description 06/18/2026 3:30 PM EDT Office Visit [facility] [address] [place] [phone] Blake Perez MD [address] [place] [address] documented as of this encounter Goals [...] Noted Time PHQ-9 Depression Total Score: 0 01/19/20 7:00 AM EDT documented as of this encounter Care Teams Starting Gate Driver Relationship Specialty Start Date End Date Blake Perez MD [address] [place] [address] PCP - General Internal Medicine 06/14/25 documented as of this encounter
--- OUTSIDE RECORDS SUMMARY | 2025-07-21 19:38 | XMS_ITS | Encounter Summary ---
Author Organization [employer] Address [facility]-[id number] [address] [place] [address] Care Team Providers Care Scarfing Machine Operator Name Role Phone Blake Perez MD Primary Care Provider [phone] Encounter Details Date Type Department Care Team (Late st Contact Info) Description 02/23/2022 Telephone [facility] [address] [place] [address] Sanjiv Morales MD [address] Provider retired 01/09/25 [place], [place] [id number] Social History Tobacco Use Types Packs/Day Years [...] often do you attend chur ch or cheondoism services? Never 2020 Do you belong to [...] Answer Date Recorded Total Score 0 02/19/2022 [facility] - Occupational [...] Recorded Do you need help finding a [facility] career center and/or a training [...] Office Visit [facility] [address] [place] [phone] Blake Perez MD [address] [place] [address] [phone] documented as of this encounter Goals Goal [...] documented as of this encounter Care Teams Scarfing Machine Operator Relationship Specialty Start Date End Date Blake Perez MD [address] [place] [address] PCP - General Internal Medicine 06/14/25 documented as of this encounter
--- OUTSIDE RECORDS SUMMARY | 2025-07-21 19:38 | XMS_ITS | Encounter Summary ---
Author Organization [employer] Sys tem Address [id number] [address] [place] [address] Care Team Providers Care Dyer And Washer Name Role Phone Blake Perez MD Primary Care Provider [phone] Encounter Details Date Type Department Care Team (Late st Contact Info) Description 06/24/2020 Telephone [facility] [address] [place] [address] Sanjiv Nieves MD [address] Provider retired 01/09/25 [place], [place] [phone] Social History Tobacco Use Types Packs/Day Years [...] often do you attend chur ch or synagogue services? Never 2020 Do you belong to any clubs o r organizations such as yarsanism groups, unions, fraternal or athletic groups, or [...] Answer Date Recorded PHQ-2 Score 0 02/03/2019 [facility] Occupat ional Health - Occupational [...] encounter Miscellaneous Notes * Telephone Encounter - Yuliya Soraida - 06/24/2020 11:28 AM EDT Transition of Care (*required) *Additional Questions/Concerns Requiring PCP Follow-Up: Not at this time This documentation is being used for Transition of Care purposes: Yes Goal: Patient will demonstrate a safe transition Diagnosis on Discharge: Hypoxemia, Asthma Exacerbation *[facility] Discharging Facility: [facility] Date of Facility Discharge: 06/21/20 Date of Interactive Contact and Name of Report Programmer: 06/24/20 Nilo garza *Medication Review Completed: Pending provider review Medication Reconciliation Questions/Concerns: Not at this time *Follow Up Appointments with Providers: Primary: Sanjiv Nieves MD Specialty: Pulmonary 07/24/20 Specialty: Specialty: Review of Pending Lab/Diagnostic Tests and Plan for Completion: Hospital gave very little test results when he was inpatient. Assessment and Support of Treatment Regimen Adherence and Medication Management: yes Education Provided by [facility] to Support Self-Management, Independent Living and ADLs: yes Communication with Home Health Agencies and Other Services Utilized/Needed by the Patient: no documented in this encounter Plan of Treatment Upcoming Encounters Date Type Department Care Team (Late st Contact Info) Description 06/18/2026 3:30 PM EDT Office Visit [facility] [address] [place] [phone] Blake Perez MD [address] [place] [address] documented as of this encounter Goals Goal [...] Infection Onset Date Last Indicated Resolved Time Enteric Rule-Out 06/20/2020 06/20/2020 06/27/2020 11:13 PM [...] documented as of this encounter Care Teams Dyer And Washer Relationship Specialty Start Date End Date Blake Perez MD [address] [place] [address] PCP - General Internal Medicine 06/14/25 documented as of this encounter
--- OUTSIDE RECORDS SUMMARY | 2025-07-21 19:38 | XMS_ITS | Encounter Summary ---
Author Organization [facility] [employer] Address [facility]-[id number] [address] [place] [address] Care Team Providers Care Museum Technician Name Role Phone Blake Perez MD Primary Care Provider [phone] Reason for Visit * Reason Onset Date Comments Transition Of Care 09/13/2024 Encounter Details Date Type Department Care Team (Late st Contact Info) Description 09/13/2024 Telephone [facility] [address] [place] [phone] Chelsey Randall, JAY Transition Of Care Social History Tobacco Use Types Packs/Day Years [...] any clubs o r organizations such as anabaptism groups, unions, fraternal or athletic groups, or [...] PHQ-2 Answer Date Recorded Total Score 0 06/05/2024 [facility] - Occupational Stress Questionnaire Answer Date Recorded [...] Recorded Do you need help finding a [employer] career center and/or a training program? No 2020 Hunger Screening Answer Date Recorded Within the past 12 months we worried whether our food would run out before we got money to buy more. Never True 06/22/2024 Within the past 12 months th e food we bought just didn't last and we didn't have money to get more. Never True 06/22/2024 Purpose - Life Answer Date Recorded Purpose and direction in life Unknown Sex and Gender Information Value Date Recorded Sex Assigned at Not on file Legal Sex Male 8:33 PM EDT Gender Identity Not on file Sexual Orientation Not on file documented as of this encounter Miscellaneous Notes * Telephone Encounter - Chelsey Randall RN - 09/13/2024 10:30 AM EST Images from the original note were not included. Transition of Care Additional Questions/Concerns Requiring PCP Follow-Up: This documentation is being used for Transition of Care purposes: Yes Goal: Patient will demonstrate a safe transition from hospital to home. Diagnosis on Discharge: Discharge Specialty: Pulmonology Name of Discharging Facility: [facility] Date of Facility Discharge: 09/09/24 - 09/12/24 Date of Interactive Contact and Name of Cash Teller: Unable to reach patient x 2 Medication Review Completed: No Medication Reconciliation Questions/Concerns: Follow Up Appointments with Providers: Primary: Sanjiv Nieves MD [facility] 09/20/24 @ 3:00 Specialty: Pulm [...] and Other Services Utilized/Needed by the Patient: documented in this encounter Plan of Treatment Upcoming Encounters Date Type Department Care Team (Late st Contact Info) Description 06/18/2026 3:30 PM EDT Office Visit [facility] [address] [place] [phone] Blake Perez MD [facility] [place] [address] documented as of this encounter Goals Goal [...] Noted Time PHQ-9 Depression Total Score: 0 06/05/20 24 7:00 AM EDT documented as of this encounter Care Teams Museum Technician Relationship Specialty Start Date End Date Blake Perez MD [address] [place] [address] PCP - General Internal Medicine 06/14/25 documented as of this encounter
--- OUTSIDE RECORDS SUMMARY | 2025-07-21 19:38 | XMS_ITS | Encounter Summary ---
Author Organization [employer] Sys [employer] Address [id number] [address] [place] [address] Care Team Providers Care Coagulating Drying Supervisor Name Role Phone Blake Perez MD Primary Care Provider [phone] Encounter Details Date Type Department Care Team (Late st Contact Info) Description 11/04/2020 Telephone [facility] [address] [place] [address] Sanjiv Morales MD [address] Provider retired 01/09/25 [place], [place] [phone] Social History Tobacco Use Types Packs/Day Years [...] often do you attend chur ch or lutheran services? Never 2020 Do you belong to any clubs o r organizations such as quaker groups, unions, fraternal or athletic groups, or [...] Answer Date Recorded Total Score 0 10/24/2020 [facility] Occupat ional Health - Occupational Stress [...] Recorded Do you need help finding a [facility] career center and/or a training program? [...] have Coronavirus / COVID-19? No / Unsure 11/02/2020 11:56 PM EST documented as of this encounter Miscellaneous Notes * Telephone Encounter - Sanjiv Morales MD - 11/04/2020 7:58 AM EST ER f/u with us or GI/general surgery * Telephone Encounter - Josee Aman - 11/04/2020 7:58 AM EST I called patient and left him a message to call the office if he would like an ER follow up documented in this encounter Plan of Treatment Upcoming Encounters Date Type Department Care Team (Late st Contact Info) Description 06/18/2026 3:30 PM EDT Office Visit [facility] [address] [place] [phone] Blake Perez MD [address] [place] [address] documented as of this encounter Goals [...] Time PHQ-9 Depression Total Score: 0 10/24/19 21 11:00 AM EST documented as of this encounter Care Teams Coagulating Drying Supervisor Relationship Specialty Start Date End Date Blake Perez MD [address] [place] [address] PCP - General Internal Medicine 06/14/25 documented as of this encounter
--- OUTSIDE RECORDS SUMMARY | 2025-07-21 19:38 | XMS_ITS | Encounter Summary ---
Author Organization [employer] Sys tem Address [id number] [address] [place] [address] Care Team Providers Care Heating Element Winder Name Role Phone Blake Perez MD Primary Care Provider Encounter Details Date Type Department Care Team (Late st Contact Info) Description 05/27/2023 Telephone [facility] [address] [phone] Josette Zacarias RN Social History [...] often do you attend chur ch or scientologist services? Never 2020 Do you belong to any clubs o r organizations such as yarsani groups, unions, fraternal or athletic groups, or [...] Answer Date Recorded Total Score 0 05/17/2023 [facility] [...] Recorded Do you need help finding a [employer] career center and/or a training program? No [...] Telephone Encounter - Josette Zacarias RN - 05/27/2023 8:31 AM EDT Wrapper Cashier attempted to contact patient. No answer. Left message to contact office regarding lab results. Left office phone number for reference. Per Dr Ponce, no cancer cells seen. Still waiting on culture data. Once received and reviewed by SE, will contact patient. ----- Message from Alicia Ponce DO sent at 05/27/2023 7:42 AM EDT ----- Please inform no cancer cells seen. I am waiting for culture data. * Telephone Encounter - Josette Zacarias RN - 05/27/2023 8:31 AM EDT SECOND ATTEMPT Wrapper Cashier spoke to patient and informed per Dr Ponce, no cancer cells seen. Still waiting on culture data. Once received and reviewed by SE, will contact patient. patient agreeable documented in this encounter Plan of Treatment Upcoming Encounters Date Type Department Care Team (Late st Contact Info) Description 06/18/2026 3:30 PM EDT Office Visit [facility] [address] [place] [phone] Blake Perez MD [address] [place] [address] documented as of this encounter Goals [...] documented as of this encounter Care Teams Heating Element Winder Relationship Specialty Start Date End Date Blake Perez MD [address] [place] [address] PCP - General Internal Medicine 06/14/25 documented as of this encounter
--- OUTSIDE RECORDS SUMMARY | 2025-07-21 19:38 | XMS_ITS | Encounter Summary ---
Author Organization [facility] [employer] [facility] [employer] Address [facility]-[id number] [address] [place] [address] Care Team Providers Care Lever Operator Name Role Phone Blake Perez MD Primary Care Provider [phone] Encounter Details Date Type Department Care Team (Late st Contact Info) Description 07/26/2024 Orders Only [facility] [address] [place] [address] External, Scanning Provider Social History Tobacco Use [...] often do you attend chur ch or mu-ism services? Never 2020 Do you belong to any clubs o r organizations such as judaism groups, unions, fraternal or athletic groups, or [...] Answer Date Recorded Total Score 0 06/05/2024 [facility] of Occupat ional Health - Occupational Stress [...] EDT Office Visit [facility] [address] [place] [phone] Blake Perez MD [address] [place] [phone] documented as of this encounter Goals Goal [...] Procedure Name Priority Date/Time Associated Diagnosis Comments XR CHEST 1 VW Routine 07/23/2024 documented in this encounter Results * X-ray chest 1 view (07/23/2024) Anatomical Region Laterality Modality Body, Chest N/A Computed Radiogr aphy Narrative 07/23/2024 Ordering Provider: [facility] us Scanning Provider External IMG DIAGNOSTIC IMAGIN G ORDERABLES Final Result documented in this encounter Visit Diagnoses Not on filedocumented in this encounter Additional Health Concerns Assessment Noted Time PHQ-9 Depression Total Score: 0 06/05/20 24 7:00 AM EDT documented as of this encounter Care Teams Lever Operator Relationship Specialty Start Date End Date Blake Perez MD [address] [place] [address] PCP - General Internal Medicine 06/14/25 documented as of this encounter
[2025-07-21 19:42] VITALS: BP 175/95; PULSE 112; TEMP 36.9; O2SAT 99; BMI 34.0
--- NOTE | 2025-07-21 19:51 | PC.NURSE ---
Pain to right upper leg, no redness or swelling noted.
--- NOTE | 2025-07-21 20:06 | ED.GENADUL1 ---
HPI HPI - General Adult General Chief complaint: Asthma Stated complaint: LOWER PAIN Time Seen by Provider: 07/21/25 19:36 Source: patient Mode of arrival: walk-in History of Present Illness HPI narrative: Patient is a 35-year-old male presenting to the emergency department for evaluation of an asthma exacerbation. Patient states he ran out of his albuterol, Symbicort, and nebulized medications. He has prescriptions at home, but cannot get them filled because he cannot afford the medications. He states that he has been short of breath for the last 24 hours. He denies any chest pain, though feels a little bit tight. He denies any URI symptoms such as cough, congestion, or fevers. He has no abdominal pain, nausea, or vomiting. He does mention that he has some pain in the right anterior thigh from testosterone injection a week ago. He states he did the injection at home. He states he used alcohol prep pad and clean needles. He states that there is no pain after the injection, however the last couple days, the pain is now worse. Related Data Allergies Allergy/AdvReac Type Severity Reaction Status Date / Time No Known Drug Allergies Allergy Verified 07/21/25 19:42 Opioid HPI Opioid Management Most Recent Opioid Data: Last Pain Scale 0 09/12/24, 06:04 Last ORT Total Score 2 09/09/24, 02:23 Last ORT Risk Category Low Risk 09/09/24, 02:23 Review of Systems ROS Status of ROS 10 or more systems reviewed and unremarkable except as noted in history and below [facility] Medical History (Updated 07/21/25 @ 20:38 by Giuliano Rubalcava DO) Right upper lobe pneumonia ?J18.9 - Pneumonia, unspecified organism (ICD-10) Leukocytosis ?D72.829 - Elevated white blood cell count, unspecified (ICD-10) Obesity (BMI 30.0-34.9) ?E66.811 - Obesity, class 1 (ICD-10) Vaping nicotine dependence, tobacco product ?F17.290 - Nicotine dependence, other tobacco product, uncomplicated (ICD-10) Mucus plugging of bronchi ?T17.500A - Unspecified foreign body in bronchus causing asphyxiation, initial encounter (ICD-10) Centrilobular emphysema ?J43.2 - Centrilobular emphysema (ICD-10) Peripheral eosinophilia ?D72.19 - Other eosinophilia (ICD-10) Viral pneumonia, unspecified ?J12.9 - Viral pneumonia, unspecified (ICD-10) Severe persistent asthma with acute exacerbation ?J45.51 - Severe persistent asthma with (acute) exacerbation (ICD-10) SOB (shortness of breath) ?R06.02 - Shortness of breath (ICD-10) Respiratory distress determined by examination ?R06.03 - Acute respiratory distress (ICD-10) Severe asthma with exacerbation ?J45.901 - Unspecified asthma with (acute) exacerbation (ICD-10) Asthma with acute exacerbation ?J45.901 - Unspecified asthma with (acute) exacerbation (ICD-10) Severe persistent asthma, uncomplicated ?J45.50 - Severe persistent asthma, uncomplicated (ICD-10) Depression ?F32.A - Depression, unspecified (ICD-10) Social History (Updated 09/09/24 @ 03:27 by Veronica Rodriguez RN) Within the past year, how often did you have a drink containing alcohol: 2-4 times a month Within the past year, how many standard drinks containing alcohol did you have on a typical day: 1 or 2 Within the past year, how often did you have six or more drinks on one occasion: less than monthly Total score: 1 Score interpretation: A score less than 4 is consistent with normal alcohol consumption. Smoking status: Heavy tobacco smoker Do you use any of these nicotine containing products: vaping products Second hand tobacco smoke exposure: Yes Non-prescribed substance use: denies use Highest level of school completed/degree received: high school graduate Do you want help with school or training: No Are you now , , , , never or living with a partner: In a typical week, how many times do you talk on the telephone with family, friends, or neighbors: 3 or more times per week Little interest or pleasure in doing things: not at all Feeling down, depressed, or hopeless: not at all Exam Narrative Exam Narrative: CONSTITUTIONAL: Well-appearing, answering questions and following commands appropriately SKIN: Was warm and dry. EYES: Sclerae white. EARS, NOSE, THROAT: Moist oral mucosa. RESPIRATORY: Bilateral expiratory wheezing. No use of accessory muscles. Speaking in full sentences. On room air. CARDIOVASCULAR: Normal rate and regular rhythm. There is no S3, S4, murmur, rub. GASTROINTESTINAL: Abdomen is nondistended. MUSCULOSKELETAL: The right anterior thigh where the patient is having pain grossly appears normal. There is no overlying skin changes or cellulitic changes. There is no palpable subcutaneous masses, fluctuance, crepitus, or induration. He has good range of motion in the bilateral lower extremities. NEUROLOGIC: Patient is awake and alert. Equal strength and sensation to light touch in the bilateral lower extremities. Constitutional Vital Signs, click to edit/add: Last Vital Signs Temp 98.4 F 07/21/25 19:42 Pulse 108 H 07/21/25 20:09 Resp 18 07/21/25 20:09 BP 175/95 H 07/21/25 19:42 Pulse Ox 97 07/21/25 20:09 O2 Del Method Room Air 07/21/25 20:09 Course Vital Signs Vital signs: Vital Signs Temperature 98.4 F 07/21/25 19:42 Pulse Rate 112 H 07/21/25 19:42 Respiratory Rate 20 07/21/25 19:42 Blood Pressure 175/95 H 07/21/25 19:42 Pulse Oximetry 99 07/21/25 19:42 Oxygen Delivery Method Room Air 07/21/25 19:42 Temperature 98.4 F 07/21/25 19:42 Pulse Rate 108 H 07/21/25 20:09 Respiratory Rate 18 07/21/25 20:09 Blood Pressure 175/95 H 07/21/25 19:42 Pulse Oximetry 97 07/21/25 20:09 Oxygen Delivery Method Room Air 07/21/25 20:09 Medical Decision Making [facility] Narrative Medical decision making narrative: Patient is a 35-year-old male presenting to the emergency department the 24-hour history of an asthma exacerbation. Vital signs arrival are significant for hypertension and tachycardia, otherwise within normal limits. He is saturating 99% on room air with bilateral expiratory wheezing. He is in no acute respiratory distress and is speaking in full sentences. My clinical impression is of the patient is having an asthma exacerbation secondary to running out of his home medications. He has no chest pain or URI symptoms, making underlying pneumothorax/pneumonia is lower likelihood. He will be treated symptomatically with nebulized albuterol/ipratropium and oral dexamethasone. In regards to the patient's anterior right thigh pain from recent testosterone injection, this is likely related to localized injection site pain. On bedside ultrasound, there is no evidence of intramuscular abscess or cellulitis. The right lower extremity is neurovascularly intact with no abnormal examination findings. He is instructed to return to the emergency department for re-evaluation should his symptoms worsen or he develop overlying skin changes, fevers, or other systemic symptoms. On reevaluation, the patient states he feels significant improved. His wheezing has resolved on repeat auscultation. I do believe he is stable for discharge and outpatient follow-up with his PCP. He was given an albuterol and Pulmicort inhaler to go home with. Return precautions were given clued any new or concerning symptoms. Patient understands and agrees to plan. FINAL IMPRESSION: #Acute asthma exacerbation #Acute right lower extremity pain secondary to IM injection DISPOSITION: Discharged home CONDITION: Good Discharge Plan Discharge Chief Complaint: Asthma Clinical Impression: Asthma with acute exacerbation Print Language: Turkmen Referrals: Physician,Non-Staff, [Primary Care Provider] - 1 week
[2025-07-21 20:09] VITALS: PULSE 108; O2SAT 97
[2025-07-21] MEDS: IPRATROPIUM/ALBUTEROL SULFATE 3 ML AMPUL.NEB 6 ML IH (20:12)
[2025-07-21] MEDS: DEXAMETHASONE 4 MG TABLET 12 MG PO (20:20)
[2025-07-21] MEDS: ALBUTEROL SULFATE 200 PUFF/6.7 GM INHALER IH (20:53)
== END 2025-07-21 20:54 | disposition home or self-care (01) ==
PROVIDERS: Emergency Provider Student in an Organized Health Care Education/Training Program
DX: J45.901 Unspecified asthma with (acute) exacerbation (principal); F17.290 Nicotine dependence, other tobacco product, uncomplicated; M79.651 Pain in right thigh
CPT/HCPCS: 94640; 99283; J8540

== ENCOUNTER 2025-07-22 21:54 | Emergency (ER) | payer BC, SELFPAY ==
--- OUTSIDE RECORDS SUMMARY | 2024-09-13 05:00 | XMS_ITS ---
Author Organization [facility] Address [address] [place] [address] Care Team Providers Care Carbide Powder Processor Name Role Phone Carmen DC, Sanjiv Primary Care Provider Unavail Julian Beal Unavailable [phone] REASON FOR VISIT RT SF FLEXOR TENDON REP PO#2 Encounters Encounter Location Date Provider Diagnosis [facility] [facility] [address] [place] [phone] 09/13/2024 Julian Bunn Plan Of Treatment No Information Progress Notes * WILLOW WILKES WDOB:[birth year] (35 yo M)Acc No.[id number]:09/13/2024 Progress Notes Patient: WILLOW FLORES Provider: Coco Bunn DO :1990 A ge:34 Y S ex:Male Date:09/13/2024 Address:[address] [id number] Pcp:Sanjiv Mroales MD Subjective: * Chief Complaints: * 1 . RT SF FLEXOR TENDON REP PO#2. * Medical History: Objective: * Vitals: Assessment: Plan: * Treatment: Forms: * Images: * Electronic signature of Ganga Bunn DO on 07/22/2025 at 10:04 PM EDT Sign off status: Pending * Provider: Coco Bunn DO Date: 11/14/2023 Generated for Printi ng/Faxing/eTransmitting on: 10:04 PM EDT
--- OUTSIDE RECORDS SUMMARY | 2024-09-19 09:45 | XMS_ITS ---
Author Organization [facility] [place] Address [address] [place] [address] Care Team Providers Care Wrinkle Chaser Name Role Phone Carmen DC, Sanjiv Primary Care Provider Unavail Gera Spencer Unavailable [phone] REASON FOR VISIT HOSP. F/U Medications Medication SIG (Take, Route, Frequency, Duration) Notes Start Date End Date Status levoFLOXacin 750 MG TAKE 1 TABLET BY ONCE DAILY Oral; Duration: 5 Days Active Albuterol Sulfate (2.5 MG/3ML) 0.083% USE 1 VIAL IN NEBULIZER EVERY 6 HOURS NEEDED FOR SHORTNESS OF BREATH OR WHEEZING Inhalation; Duration: 8 Days Active predniSONE 20 MG Oral; Duration: 13 Days Active Albuterol Sulfate HFA 108 (90 Base) MCG/ACT Inhalation; Duration: 25 Days Active oxyCODONE-Acetaminophen 5-325 MG Oral; Duration: 7 Days Activ e Encounters Encounter Location Date Provider Diagnosis [facility] [place] [address] [place] [address] 09/19/2024 Gera Barker Plan Of Treatment No Information Progress Notes * Nilo WILKES WDOB:[birth year] (35 yo M)Acc No.[id number]:09/19/2024 UNLOCKED PROGRESS NOTE Progress Note Patient: Nilo FLORES Provider: Guillermo Barker DO :1990 A ge:34 Y S ex:Male Date:09/19/2024 Address:[address] [facility] Pcp:Sanjiv Morales MD Subjective: * Chief Complaints: * 1 . HOSP. F/U. * HPI: G eneral: Patient presents for a follow up after a recent hospital admission to [facility] on 09/09/2024 for a Acute Asthma Exacerbation. Patient was previously under the care of [facility] in the past but reports not following up. * Medical History: * Surgical History: B ronchoscopy 05/25/2023, back surgery , appendectomy , hand surgery . * Hospitalization/Major Diagno stic Procedure: A cute Asthma Exacerbation-[facility] 09/09/2024. * Family History: M other: asthma, diagnosed with Heart Disease. F ather: diagnosed with Diabetes, Hypertension. * Medications: T aking Albuterol Sulfate (2.5 MG/3ML) 0.083% Nebulization Solution USE 1 VIAL IN NEBULIZER EVERY 6 HOURS NEEDED FOR SHORTNESS OF BREATH OR WHEEZING Inhalation , Taking Albuterol Sulfate HFA 108 (90 Base) MCG/ACT Aerosol Solution Inhalation , Taking levoFLOXacin 750 MG Tablet TAKE 1 TABLET BY MOUTH ONCE DAILY Oral , Taking oxyCODONE-Acetaminophen 5-325 MG Tablet Oral , Taking predniSONE 20 MG Tablet Oral Objective: * Vitals: Assessment: Plan: * Treatment: * * Electronic signature of Thea Barker DO on 07/22/2025 at 10:04 PM EDT Sign off status: Pending Visit Status: N /S N/C (No Show/No Charge) * Provider: Guillermo Barker DO Date: 11/20/2023 Generated for Zari martino/Geo/eTcastrosmitting on: 10:04 PM EDT History and Physical Notes * HPI (History of Present Illness) Category Sub-Category Detail Notes Category Not es General Patient present s for a follow up after a recent hospital admission to [facility] on 09/09/2024 for a Acute Asthma Exacerbation. Patient was previously under the care of [facility] in the past but reports not following up.
[2025-07-22] VITALS (18 sets, daily range): BP systolic 120–134; BP diastolic 65–73; PULSE 101–130; TEMP 37; O2SAT 96–99; BMI 34.0
--- OUTSIDE RECORDS SUMMARY | 2025-07-22 22:04 | XMS_ITS | Patient Health Record ---
Author Organization [facility] [place] Address [address] [place] [address] Care Team Providers Care Night Clerk Auditor Name Role Phone Sanjiv Morales MD Primary Care Provider Unavail able Gera Barker Unavailable [phone] Allergies No Known Allergies Results Component Value Reference Range Notes Tahxd-5-Lapxazmfayc Phenotyp Reviewed date:10/18/2024 02:24:40 PM Interpretation: Performing Lab: Notes/Report: [facility] , Nwfaa-1-Wgditzbsrkj, Serum 129 95-164 mg/dL Phenotype (PI) MM . MM Phenotype is considered to be normal , producing normal serum levels of fzbmp-1-zdaocjcj inhibitor and not associated with clinical disease. [...] Ranges used to confirm phenotype. Performed at: - [facility] [address] [id number] Filling Hand: Tam Rey PhD, Phone: [phone] Performed at: [facility] [address] [id number] Filling Hand: Mak Ayers MD, Phone: [phone] Performing Lab: see note - [facility] [...] Status Risk Notes Problem Exacerbation of asthma (522846199) Unspecified asthma with (acute) exacerbation (J45.901) Active confirmed Problem Obesity (158421487) Obesity, unspecified (E66.9) Active confirmed Problem Tobacco user (555907756) Nicotine dependence, unspecified, uncomplicated (F17.200) Active confirmed Problem Centrilobular emphysema (02162510) Centrilobular emphysema (J43.2) Active confirmed Problem Uncomplicated severe persistent asthma (765849109) Severe persistent asthma, uncomplicated (J45.50) Active confirmed Problem Long-term current use of inhaled 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 (046805635) 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) Active confirmed Problem Tobacco user (233365368) Vaping nicotine dependence, 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) Active [...] Encounter Location Date Provider Diagnosis [facility] [place] [address] [place] [address] 11/14/2024 [facility] Severe persistent asthma, uncomplicated J45.50 ; Centrilobular emphysema J43.2 ; Peripheral eosinophilia D72.19 ; Vaping nicotine dependence, tobacco product F17.290 ; [facility] (current) use of inhaled steroids Z79.51 and Obesity, class 2 E66.812 [facility] [place] [address] [place] [address] 09/11/2024 [facility] Pulmonary [facility] [address] [place] [address] 09/19/2024 [facility] [place] [address] [place] [address] 06/04/2025 [facility] Assessments Encounter Date Diagnosis (ICD Code) Assessment Notes Treatment Notes Treatment Clinical Notes Section Notes 11/14/2024 Centrilobular emphysema (ICD-10 - J43.2) Asthma-COPD overlap. Normal AAT. 11/14/2024 Severe persistent asthma, uncomplicated (ICD-10 - [...] triple inhaled therapy. F/U 1 year. 11/14/2024 Peripheral eosinophilia (ICD-10 - D72.19) Eosinophils: [...] function. He was counseled to quit. 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
--- OUTSIDE RECORDS SUMMARY | 2025-07-22 22:04 | XMS_ITS | Encounter Summary ---
[id number] [address] [place] [address] Care Team Providers Care Bearing Press Machine Operator Name Role Phone Blake Perez MD Primary Care Provider [phone] Encounter Details Date Type Department Care Team (Late st Contact Info) Description 05/07/2023 Telephone [facility] Pulmonary/Sleep Medicine [address] [address] Alicia Ponce DO [address] [id number] Social History Tobacco Use Types Packs/Day Years [...] often do you attend chur ch or advent services? Never 2020 Do you belong to any clubs o r organizations such as tenriism groups, unions, fraternal or athletic groups, or [...] Answer Date Recorded Total Score 0 01/18/2023 [facility] [...] Recorded Do you need help finding a [facility] career center and/or a [...] Zacarias RN - 05/07/2023 7:45 AM EDT Mold Sprayer spoke to patient and informed of the following: CT Ion Navigational procedure is scheduled for May at 9:15 am. Patient to arrive to [facility] at 7:15 am. Patient to report to Entrance B and go to information desk and they will direct patient to admitting or the surgery waiting room. Patient will need to complete labs by May Patient is scheduled for CT Ion on May at 8:00 am at [facility] Patient is scheduled for PFT on May at 9:00 am at [facility]. Patient to have pre-admission phone call on May at 9:00 am To prepare for the procedure, the patient must do the following: Nothing to eat or drink after midnight the night before procedure No aspirin or aspirin containing products three days prior to procedure. Tylenol Only Make arrangements for a personal driver to bring you to and from the hospital on the day of the procedure Bring your ID, current medication list and insurance cards to the hospital Call our office if you become ill such as a cold, cough, fever, sore throat or vomiting on the day before or day of the procedure Patient agreeable to above information and verbalized understanding Mold Sprayer to update Dr Ponce Case #[id number] documented in this encounter Plan of Treatment Upcoming Encounters Date Type Department Care Team (Late st Contact Info) Description 06/18/2026 3:30 PM EDT Office Visit [facility] Family Medicine [address] [place] [address] Blake Perez MD [address] [place] [address] documented as of this encounter Goals [...] documented as of this encounter Care Teams Bearing Press Machine Operator Relationship Specialty Start Date End Date Blake Perez MD [address] [place] [address] PCP - General Internal Medicine 06/14/25 documented as of this encounter
--- OUTSIDE RECORDS SUMMARY | 2025-07-22 22:04 | XMS_ITS | Encounter Summary ---
Author Organization [facility] Address [address] [place] [place] [address] Care Team Providers Care Medical Apparatus Model Maker Name Role Phone Sanjiv Morales MD Primary Care Provider [phone] Encounter Details Date Type Department Care Team (Late st Contact Info) Description 02/25/2024 Abstract [facility] [address] [place] [id number] Alexx Davison DPM [address] [place], [place] [id number] Social History Tobacco Use Types Packs/Day Years [...] on filedocumented in this encounter Care Teams Medical Apparatus Model Maker Relationship Specialty Start Date End Date Sanjiv Morales MD [address] [place] [address] PCP - General Family Medicine 01/31/25 documented as of this encounter
--- OUTSIDE RECORDS SUMMARY | 2025-07-22 22:04 | XMS_ITS | Clinical Summary ---
Author Organization [facility] Address [address] [place] [address] Care Team Providers Care Projection Technician Name Role Phone Unknown, Provider Primary Care [...] age to complete this topic Care Teams Projection Technician Relationship Specialty Start Date End Date Unknown, Provider PCP - General 04/06/25
--- OUTSIDE RECORDS SUMMARY | 2025-07-22 22:04 | XMS_ITS | CCD ---
Author Organization [facility]ini[facility] Care Team Providers Care Diesel Technician Mechanic Name Role Phone Myra [phone] UNKNOWN Unavailable Unavailable Patten, Jose M R. [...] Unavailable Unavailable Blank, Donald S Unavailable Unavailable Newton, Sammie A. Unavailable Unavailable Char, Sammie A. Unavailable Unavailable Shipman, Octavio Unavailable Unavailable Newton, Sammie A. Unavailable Unavailable Char, Sammie A. Unavailable Unavailable Shipman, Octavio Unavailable Unavailable Provider, None Unavailable Unavailable Stalter, Vargas Unavailable Unavailable Stalter, Vargas Unavailable Unavailable Stalter, Vargas Unavailable Unavailable Stalter, Vargas Unavailable Unavailable Provider, None Unavailable Unavailable Provider, None Unavailable Unavailable Lewis, Neeraj R. Unavailable Unavailable Lewis, Neeraj R. Unavailable Unavailable Provider, None Unavailable Unavailable Lewis, Neeraj R. Unavailable Unavailable Lewis, Neeraj R. Unavailable Unavailable EBRAHEIM, OVI Unavailable Unavailable EBRAHEIM, OVI Unavailable Unavailable SELF, REFERRED Unavailable Unavailable SELF, REFERRED Unavailable Unavailable VT Unavailable Unavailable EBRAHEIM, OVI Unavailable Unavailable VT Unavailable Unavailable FIDENCIO RAY Unavailable Unavailable LITTLE GRACIA Admitting Unavailable LITTLE GARCIA Attending Unavailable PLACIDO MORALES Primary Care Unavailable LITTLE GARCIA Consulting [...] Unavailable Placido Morales MD Primary Care Provider Unavailable Primary Care Provider Unavailabl e Unavailable [...] Unavailable DEFRANCE, PLACIDO Patel Primary Care Unavailable MANKANDIAM, KANDAMALEJANDROUGU Attending Unavailabl e UNKNOWN, PROVIDER Primary [...] 30 tablet 08/24/2023 09/22/2024 Discontinued (Alternate therapy) [id number] 200 actuat albuterol 0.09 mg/actuat metered dose [...] BY AUTOMATED COUNT 0.0 10*3/uL Normal 0.0-0.2 [facility] Comment on above: Performed By: #### C BCA CMP, 3040-3, 59142-5, 95893-8 #### [facility] ([id number]) [address] [place] [address] 01297 BASOPHILS RELATIVE PERCENT BY AUTOMATED COUNT 0.6 % Normal [facility] Comment on above: Performed By: #### C BCA CMP, 3040-3, 41052-6, 14750-6 #### [facility] ([id number]) [address] [place] [address] 21852 CELLAVISION DIFFERENTIAL TYPE AUTOMATED DIFFERENTIAL Normal [facility] Comment on above: Performed By: #### C BCA, CMP, 3040-3, 72009-4, 42321-5 #### [facility] ([id number]) [address] [place] [address] 20560 Eosinophils (Bld) [#/Vol] 0.4 10*3/uL Normal 0.0-0.4 [facility] Comment on above: Performed By: #### C BCA CMP, 3040-3, 68525-7, 51036-4 #### [facility] ([id number]) [address] [place] [address] 85904 EOSINOPHILS RELATIVE PERCENT BY AUTOMATED COUNT 5.6 % Normal [facility] Comment on above: Performed By: #### C BCA, CMP, 3040-3, 89688-3, 88102-7 #### [facility] ([id number]) [address] [place] [address] 99288 Erythrocyte distribution width (RBC) [Ratio] 13.2 % Normal 11.5-15 [facility] Comment on above: Performed By: #### C BCA, CMP, 3040-3, 73307-6, 19307-6 #### [facility] ([id number]) [address] [place] [address] 74763 Hematocrit (Bld) [Volume fraction] 46.3 % Normal 39-50 [facility] Comment on above: Performed By: #### C BCA, CMP, 3040-3, 20998-5, 84568-1 #### [facility] ([id number]) [address] [place] [address] 26839 Hemoglobin (Bld) [Mass/Vol] 15.6 g/dL Normal 13-17 [facility] Comment on above: Performed By: #### C BCA, CMP, 3040-3, 61807-8, 44731-0 #### [facility] ([id number]) [address] [place] [address] 43052 LYMPHOCYTES ABSOLUTE COUNT (10*3/UL) BY AUTOMATED COUNT 1.6 10*3/uL Normal 1.0-3.5 [facility] Comment on above: Performed By: #### C BCA, CMP, 3040-3, 58702-1, 87881-1 #### [facility] ([id number]) [address] [place] [address] 65673 LYMPHOCYTES RELATIVE PERCENT BY AUTOMATED COUNT 24.5 % Normal [facility] Comment on above: Performed By: #### C BCA, CMP, 3040-3, 23875-2, 79661-2 #### [facility] ([id number]) [address] [place] [address] 60435 MCH (RBC) [Entitic mass] 30.1 pg Normal 27-34 [facility] Comment on above: Performed By: #### C BCA, CMP, 3040-3, 60948-0, 60901-3 #### [facility] ([id number]) [address] [place] [address] 57244 MCHC (RBC) [Mass/Vol] 33.7 g/dL Normal 32-36 [facility] Comment on above: Performed By: #### Tmaara BCA, CMP, 3040-3, 01591-8, 19580-0 #### [facility] ([id number]) [address] [place] [address] 48518 MCV (RBC) [Entitic vol] 89 fL Normal 80-100 [facility] Comment on above: Performed By: #### C BCA, CMP, 3040-3, 40122-9, 16916-5 #### [facility] ([id number]) [address] [place] [address] 62969 MONOCYTES ABSOLUTE COUNT (10*3/UL) BY AUTOMATED COUNT 0.6 10*3/uL Normal 0.0-0.9 [facility] Comment on above: Performed By: #### C BCA, CMP, 3040-3, 67237-4, 58307-4 #### [facility] ([id number]) [address] [place] [address] 49582 MONOCYTES RELATIVE PERCENT BY AUTOMATED COUNT 9.0 % Normal [facility] Comment on above: Performed By: #### C BCA, CMP, 3040-3, 36152-8, 67100-0 #### [facility] ([id number]) [address] [place] [address] 09041 NEUTROPHILS ABSOLUTE COUNT BY AUTOMATED COUNT 3.9 10*3/uL Normal 1.5-6.6 [facility] Comment on above: Performed By: #### C BCA, CMP, 3040-3, 39602-3, 31181-4 #### [facility] ([id number]) [address] [place] [address] 05447 NEUTROPHILS RELATIVE PERCENT BY AUTOMATED COUNT 60.3 % Normal [facility] Comment on above: Performed By: #### C BCA, CMP, 3040-3, 70823-2, 41188-1 #### [facility] ([id number]) [address] [place] [address] 08103 Platelet mean volume (Bld) [Entitic vol] 8.4 fL Normal 7-12 [facility] Comment on above: Performed By: #### C BCA, CMP, 3040-3, 51914-3, 70797-7 #### [facility] ([id number]) [address] [place] [address] 45010 Platelets (Bld) [#/Vol] 267 10*3/uL Normal 150-450 [facility] Comment on above: Performed By: #### Tamara BCA, CMP, 3040-3, 26270-3, 18464-9 #### [facility] ([id number]) [address] [place] [address] 53283 RBC COUNT 5.18 X10E12/L Normal 4.1-5.7 [facility] Comment on above: Performed By: #### C BCA, CMP, 3040-3, 47472-0, 30048-0 #### [facility] ([id number]) [address] [place] [address] 49126 WBC (Bld) [#/Vol] 6.4 10*3/uL Normal 4-11 [facility] Comment on above: Performed By: #### C BCA, CMP, 3040-3, 18805-7, 82789-6 #### [facility] ([id number]) [address] [place] [address] 75233 COMPREHENSIVE METABOLIC PANE Eladio 06-16-2025 Albumin [Mass/Vol] 4.9 g/dL Normal 3.2-5.3 [facility] Comment on above: Performed By: #### C BCA, CMP, 3040-3, 74529-8, 22799-9 #### [facility] ([id number]) [address] [place] [address] 78406 ALP [Catalytic activity/Vol] 56 U/L Normal 39-130 [facility] Comment on above: Performed By: #### C BCA, CMP, 3040-3, 44374-6, 06012-8 #### [facility] ([id number]) [address] [place] [address] 63172 ALT [Catalytic activity/Vol] 24 U/L Normal <=40 [facility] Comment on above: Performed By: #### C BCA, CMP, 3040-3, 11597-5, 92869-5 #### [facility] ([id number]) [address] [place] [address] 34762 Anion gap [Moles/Vol] 8 mmol/L Normal 5-15 [facility] Comment on above: Performed By: #### C BCA, CMP, 3040-3, 71865-4, 32158-4 #### [facility] ([id number]) [address] [place] [address] 04569 AST [Catalytic activity/Vol] 20 U/L Normal <=41 [facility] Comment on above: Performed By: #### C BCA, CMP, 3040-3, 22364-8, 45294-1 #### [facility] ([id number]) [address] [place] [address] 18881 Bilirubin [Mass/Vol] 0.8 mg/dL Normal 0.3-1.2 [facility] Comment on above: Performed By: #### C BCA, CMP, 3040-3, 23536-5, 35499-9 #### [facility] ([id number]) [address] [place] [address] 09313 Calcium [Mass/Vol] 10.0 mg/dL Normal 8.5-10.5 [facility] Comment on above: Performed By: #### C BCA, CMP, 3040-3, 29579-2, 60737-7 #### [facility] ([id number]) [address] [place] [address] 43811 Chloride [Moles/Vol] 101 mmol/L Normal 98-109 [facility] Comment on above: Performed By: #### C BCA, CMP, 3040-3, 26818-8, 77265-9 #### [facility] ([id number]) [address] [place] [address] 52455 CO2 [Moles/Vol] 29 mmol/L Normal 22-32 [facility] Comment on above: Performed By: #### C BCA, CMP, 3040-3, 68854-7, 54975-7 #### [facility] ([id number]) [address] [place] [address] 44797 Creatinine [Mass/Vol] 0.77 mg/dL Normal 0.60-1.30 [facility] Comment on above: Result Comment: METH OD TRACEABLE TO IDMS STANDARD Performed By: #### C BCA, CMP, 3040-3, 35887-8, 85201-5 #### [facility] ([id number]) [address] [place] [address] 20814 EGFR (CKD-EPI) NON-RACE DEPENDENT >^90 Normal >=60 [facility] Comment on above: Result Comment: Repo rted eGFR is based on the CKD-EPI 2020 equation that does not use a race coefficient. Performed By: #### C CHARLY, CMP, 3040-3, 76440-0, 99815-3 #### [facility] ([id number]) [address] [place] [address] 74146 Glucose [Mass/Vol] 86 mg/dL Normal 65-99 [facility] Comment on above: Performed By: #### C BCA, CMP, 3040-3, 56262-5, 21061-2 #### [facility] ([id number]) [address] [place] [address] 29569 Potassium [Moles/Vol] 4.2 mmol/L Normal 3.5-5.0 [facility] Comment on above: Performed By: #### C BCA, CMP, 3040-3, 03799-3, 62236-9 #### [facility] ([id number]) [address] [place] [address] 11958 Protein [Mass/Vol] 8.0 g/dL Normal 6.0-8.0 [facility] Comment on above: Performed By: #### C BCA, CMP, 3040-3, 03860-4, 63194-5 #### [facility] ([id number]) [address] [place] [address] 27429 Sodium [Moles/Vol] 138 mmol/L Normal 134-146 [facility] Comment on above: Performed By: #### C BCA, CMP, 3040-3, 56464-3, 80455-4 #### [facility] ([id number]) [address] [place] [address] 28935 Urea nitrogen [Mass/Vol] 16 mg/dL Normal 5-23 [facility] Comment on above: Performed By: #### C BCA, CMP, 3040-3, 19673-4, 20255-4 #### [facility] ([id number]) [address] [place] [address] 30226 LIPID PROFILEon 06-16-2025 Cholesterol [Mass/Vol] 188 mg/dL Normal 150-200 [facility] Comment on above: Performed By: #### C BCA, CMP, 3040-3, 78048-2, 58056-9 #### [facility] ([id number]) [address] [place] [address] 54752 Cholesterol in HDL [Mass/Vol] 43 mg/dL Normal >39 [facility] Comment on above: Result Comment: HDL <40 mg/dL - High Risk HDL > or = 40mg/dL- Desirable HDL >60 mg/dL - Negative Risk Performed By: #### C BCA, CMP, 3040-3, 33257-3, 68457-1 #### [facility] ([id number]) [address] [place] [address] 93329 Cholesterol in LDL [Mass/Vol] 119 mg/dL Normal <130 [facility] Comment on above: Result Comment: LDL <100 mg/dL - Desirable LDL >160 mg/dL - High Risk Performed By: #### C BCA, CMP, 3040-3, 53201-5, 76593-6 #### [facility] ([id number]) [address] [place] [address] 60399 CHOLESTEROL:HDL 4.4 Normal 1.0-5.0 [facility] Comment on above: Performed By: #### C BCA, CMP, 3040-3, 90340-3, 30292-0 #### [facility] ([id number]) [address] [place] [address] 65085 Triglyceride [Mass/Vol] 130 mg/dL Normal 27-150 [facility] Comment on above: Performed By: #### C BCA, CMP, 3040-3, 17594-7, 68639-6 #### [facility] ([id number]) [address] [place] [address] 01677 VERY LOW LIPOPROTEIN 26 mg/dL Normal 0-30 [facility] Comment on above: Performed By: #### C BCA, CMP, 3040-3, 25730-7, 17706-1 #### [facility] ([id number]) [address] [place] [address] 59050 TESTOSTERONEon 06-16-2025 TESTOSTERONE 2.25 ng/mL Normal 1.68-7.46 [facility] Comment on above: Performed By: #### C BCA, CMP, 3040-3, 06388-4, 82921-6 #### [facility] ([id number]) [address] [place] [address] 16527 THYROID PROFILE INCLUDES TSH FT4on 06-16-2025 Free T4 [Mass/Vol] 0.84 ng/dL Normal 0.61-1.60 [facility] Comment on above: Performed By: #### C BCA, CMP, 3040-3, 58954-3, 79715-1 #### [facility] ([id number]) [address] [place] [address] 89664 TSH 1.91 uIU/mL Normal 0.49-4.67 [facility] Comment on above: Performed By: #### C BCA, CMP, 3040-3, 45073-3, 89858-5 #### [facility] ([id number]) [address] [place] [address] 25186 Forwarded to:on 04-05-2025 Forwarded to: TO [facility] FULL GENOME SEQUENCING Normal [facility] Comment on above: Performed By: #### F ORWD #### [employer] [facility] [place] [address] Metallurgist Process: Samson Novak MD [facility] Lab Reporton 04-04-2025 Report Normal [facility] Comment on above: Performed By: #### G SPAR #### Performed at [facility], [address] [place] [address] 48258 XR KNEE RT 3 VWSon 4 XR KNEE RT 3 VWS XR KNEE RT 3 VWS CLINICAL INFORMATION: Acute pain of right knee TECHNIQUE: XR KNEE RT 3 VWS 3 views the right knee were obtained. There is no acute osseous abnormality no fractures seen. No malalignment. IMPRESSION: No acute findings Finalized by Tam Vega MD on 09/22/2024 2:05 PM Normal [facility] OPERATIVE REPORTon 4 OPERATIVE REPORT [facility] [address] [place] [address] 67558 OPERATIVE REPORT PATIENT NAME:WILLOW WILKES :1990 MED REC NO:[id number] ROOM:[facility] OR ([facility]) [facility] ACCOUNT NO:[id number] ADMIT DATE:08/03/2024 PROVIDER:Donald Hinkle DO DATE OF [...] the flexor digitorum superficialis in zone 2. VAN DRIVER: Pedro De La Fuente PA-C, assisted with [...] followup visit. DONALD HINKLE DO MTE/AQS Doc#: [id number] Normal [facility] BASIC METABOLIC PANLon 08-02 Anion gap [Moles/Vol] 8 mmol/L Normal 5-15 [facility] Comment on above: Performed By: #### C BCA, CMP, 3040-3, 96553-9, 66814-4 #### [facility] ([id number]) [address] [place] [address] 02541 Calcium [Mass/Vol] 9.8 mg/dL Normal 8.5-10.5 [facility] Comment on above: Performed By: #### C BCA, CMP, 3040-3, 41593-5, 89705-1 #### [facility] ([id number]) [address] [place] [address] 51611 Chloride [Moles/Vol] 99 mmol/L Normal 98-109 [facility] Comment on above: Performed By: #### C BCA, CMP, 3040-3, 65083-5, 84634-6 #### [facility] ([id number]) [address] [place] [address] 36895 CO2 [Moles/Vol] 28 mmol/L Normal 22-32 [facility] Comment on above: Performed By: #### C BCA, CMP, 3040-3, 35481-4, 07082-6 #### [facility] ([id number]) [address] [place] [address] 75724 Creatinine [Mass/Vol] 0.80 mg/dL Normal 0.60-1.30 [facility] Comment on above: Result Comment: METH OD TRACEABLE TO IDMS STANDARD Performed By: #### C BCA, CMP, 3040-3, 03609-3, 78256-5 #### [facility] ([id number]) [address] [place] [address] 60457 eGFR (CKD-EPI) NON-RACE DEPENDENT >90 Normal >59 [facility] Comment on above: Result Comment: Reported eGFR is based on the CKD-EPI 2020 equation that does not use a race coefficient. Performed By: #### C BCA, CMP, 3040-3, 24481-6, 98689-5 #### [facility] ([id number]) [address] [place] [address] 12966 Glucose [Mass/Vol] 94 mg/dL Normal 65-99 [facility] Comment on above: Performed By: #### C BCA, CMP, 3040-3, 89828-8, 29403-2 #### [facility] ([id number]) [address] [place] [address] 91952 Potassium [Moles/Vol] 4.0 mmol/L Normal 3.5-5.0 [facility] Comment on above: Performed By: #### C BCA, CMP, 3040-3, 04281-2, 34411-9 #### [facility] ([id number]) [address] [place] [address] 58422 Sodium [Moles/Vol] 135 mmol/L Normal 134-146 [facility] Comment on above: Performed By: #### C CHARLY, [facility], 3040-3, 32089-3, 99152-9 #### [facility] ([id number]) [address] [place] [address] 69235 Urea nitrogen [Mass/Vol] 17 mg/dL Normal 5-23 [facility] Comment on above: Performed By: #### C BCA, CMP, 3040-3, 84319-8, 37911-3 #### [facility] ([id number]) [address] [place] [address] 71531 CBC AND AUTO DIFFon 08-02-20 24 ABSOLUTE BASOPHIL 0.1 X10E9/L Normal 0.0-0.2 [facility] Comment on above: Performed By: #### Tamara BCA, BMP #### [facility] ([id number]) [address], [address] [place] [address] ABSOLUTE NEUTROPHIL 3.9 X10E9/L Normal 1.5-6.6 [facility] Comment on above: Performed By: #### Tamara BCA, BMP #### [facility] ([id number]) [address], [address] [place] [address] Basophils/100 WBC (Bld) 1.4 % Normal [facility] Comment on above: Performed By: #### Tamara PARKS, BMP #### [facility] ([id number]) [address], [address] [place] [address] Eosinophils (Bld) [#/Vol] 0.8 10*3/uL High 0.0-0.4 [facility] Comment on above: Performed By: #### C CHARLY, BMP #### [facility] ([id number]) [address] [place] [address] Eosinophils/100 WBC (Bld) 10.9 % Normal [facility] Comment on above: Performed By: #### Tamara PARKS, BMP #### [facility] ([id number]) [address], [address] [place] [address] Erythrocyte distribution width (RBC) [Ratio] 12.9 % Normal 11.5-15.0 [facility] Comment on above: Performed By: #### Tamara PARKS, BMP #### [facility] ([id number]) [address] [place] [address] Hematocrit (Bld) [Volume fraction] 45.2 % Normal 39-49 [facility] Comment on above: Performed By: #### Tamara PARKS, BMP #### [facility] ([id number]) [address] [place] [address] Hemoglobin (Bld) [Mass/Vol] 15.2 g/dL Normal 13.0-17.0 [facility] Comment on above: Performed By: #### Tamara PARKS, BMP #### [facility] ([id number]) [address] [place] [address] Lymphocytes (Bld) [#/Vol] 1.7 10*3/uL Normal 1.0-3.5 [facility] Comment on above: Performed By: #### C BCA, BMP #### [facility] ([id number]) [address], [address] [place] [address] Lymphocytes/100 WBC (Bld) 24.7 % Normal [facility] Comment on above: Performed By: #### C BCA, BMP #### [facility] ([id number]) [address], [address] [place] [address] MCH (RBC) [Entitic mass] 31.0 pg Normal 27-34 [facility] Comment on above: Performed By: #### C BCA, BMP #### [facility] ([id number]) [address], [address] [place] [address] MCHC (RBC) [Mass/Vol] 33.7 g/dL Normal 32-36 [facility] Comment on above: Performed By: #### C BCA, BMP #### [facility] ([id number]) [address], [address] [place] [address] MCV (RBC) [Entitic vol] 92 fL Normal 80-100 [facility] Comment on above: Performed By: #### C BCA, BMP #### [facility] ([id number]) [address], [address] [place] [address] Monocytes (Bld) [#/Vol] 0.6 10*3/uL Normal 0-0.9 [facility] Comment on above: Performed By: #### C BCA, BMP #### [facility] ([id number]) [address], [address] [place] [address] Monocytes/100 WBC (Bld) 7.9 % Normal [facility] Comment on above: Performed By: #### C BCA, BMP #### [facility] ([id number]) [address], [address] [place] [address] Neutrophils/100 WBC (Bld) 55.1 % Normal [facility] Comment on above: Performed By: #### C CHARLY, BMP #### [facility] ([id number]) [address] [address] Platelet mean volume (Bld) [Entitic vol] 8.4 fL Normal 7-12 [facility] Comment on above: Performed By: #### C CHARLY, BMP #### [facility] ([id number]) [address] [address] Platelets (Bld) [#/Vol] 272 10*3/uL Normal 150-450 [facility] Comment on above: Performed By: #### C CHARLY, BMP #### [facility] ([id number]) [address] [address] [place] [address] RBC COUNT 4.91 X10E12/L Normal 4.10-5.70 [facility] Comment on above: Performed By: #### Tamara PARKS, BMP #### [facility] ([id number]) [address] [address] WBC (Bld) [#/Vol] 7.0 10*3/uL Normal 4.0-11.0 [facility] Comment on above: Performed By: #### C CHARLY, BMP #### [facility] ([id number]) [address] [address] CBC AND AUTO DIFFon 06-22-20 24 ABSOLUTE BASOPHIL 0.1 X10E9/L Normal 0.0-0.2 [facility] Comment on above: Performed By: #### Tamara PARKS, CMP, 3040-3, 11175-8, 89696-8 #### [facility] ([id number]) [address] [place] [address], [place] [address] ABSOLUTE NEUTROPHIL 2.9 X10E9/L Normal 1.5-6.6 [facility] Comment on above: Performed By: #### C BCA, CMP, 3040-3, 04671-8, 59722-3 #### [facility] ([id number]) [address] [place] [address] Basophils/100 WBC (Bld) 0.7 % Normal [facility] Comment on above: Performed By: #### C BCA, CMP, 3040-3, 07069-1, 00546-1 #### [facility] ([id number]) [address] [place] [address] Eosinophils (Bld) [#/Vol] 1.0 10*3/uL High 0.0-0.4 [facility] Comment on above: Performed By: #### C BCA, CMP, 3040-3, 59713-9, 01550-8 #### [facility] ([id number]) [address] [place] [address] Eosinophils/100 WBC (Bld) 12.1 % Normal [facility] Comment on above: Performed By: #### C BCA, CMP, 3040-3, 89132-1, 47854-6 #### [facility] ([id number]) [address] [place] [address] Erythrocyte distribution width (RBC) [Ratio] 13.2 % Normal 11.5-15.0 [facility] Comment on above: Performed By: #### C BCA, CMP, 3040-3, 67164-5, 95238-9 #### [facility] ([id number]) [address] [place] [address] Hematocrit (Bld) [Volume fraction] 42.3 % Normal 39-49 [facility] Comment on above: Performed By: #### C BCA, CMP, 3040-3, 51906-4, 15392-6 #### [facility] ([id number]) [address] [place] [address] Hemoglobin (Bld) [Mass/Vol] 14.5 g/dL Normal 13.0-17.0 [facility] Comment on above: Performed By: #### C BCA, CMP, 3040-3, 04849-5, 91254-2 #### [facility] ([id number]) [address] [place] [address] 11159 Lymphocytes (Bld) [#/Vol] 3.1 10*3/uL Normal 1.0-3.5 [facility] Comment on above: Performed By: #### C CHARLY, CMP, 3040-3, 36277-1, 60342-9 #### [facility] ([id number]) [address] [place] [address] 26425 Lymphocytes/100 WBC (Bld) 39.4 % Normal [facility] Comment on above: Performed By: #### C BCA, CMP, 3040-3, 29786-1, 51910-0 #### [facility] ([id number]) [address] [place] [address] 85475 MCH (RBC) [Entitic mass] 31.1 pg Normal 27-34 [facility] Comment on above: Performed By: #### C BCA, CMP, 3040-3, 97613-0, 00094-1 #### [facility] ([id number]) [address] [place] [address] 27765 MCHC (RBC) [Mass/Vol] 34.1 g/dL Normal 32-36 [facility] Comment on above: Performed By: #### C BCA, CMP, 3040-3, 89808-7, 74959-6 #### [facility] ([id number]) [address] [place] [address] 24515 MCV (RBC) [Entitic vol] 91 fL Normal 80-100 [facility] Comment on above: Performed By: #### C BCA, CMP, 3040-3, 11325-5, 56620-5 #### [facility] ([id number]) [address] [place] [address] 81487 Monocytes (Bld) [#/Vol] 0.9 10*3/uL Normal 0-0.9 [facility] Comment on above: Performed By: #### C BCA, CMP, 3040-3, 14865-8, 53654-0 #### [facility] ([id number]) [address] [place] [address] 85508 Monocytes/100 WBC (Bld) 11.3 % Normal [facility] Comment on above: Performed By: #### C BCA, CMP, 3040-3, 98778-7, 11344-9 #### [facility] ([id number]) [address] [place] [address] 87112 Neutrophils/100 WBC (Bld) 36.5 % Normal [facility] Comment on above: Performed By: #### C BCA, CMP, 3040-3, 76452-3, 75544-6 #### [facility] ([id number]) [address] [place] [address] 59494 Platelet mean volume (Bld) [Entitic vol] 8.2 fL Normal 7-12 [facility] Comment on above: Performed By: #### Tamara BCA, CMP, 3040-3, 78467-8, 73716-9 #### [facility] ([id number]) [address] [place] [address] 15984 Platelets (Bld) [#/Vol] 285 10*3/uL Normal 150-450 [facility] Comment on above: Performed By: #### C BCA, CMP, 3040-3, 68895-0, 41494-1 #### [facility] ([id number]) [address] [place] [address] 09468 RBC COUNT 4.65 X10E12/L Normal 4.10-5.70 [facility] Comment on above: Performed By: #### C BCA, CMP, 3040-3, 91226-2, 94722-5 #### [facility] ([id number]) [address] [place] [address] 62072 WBC (Bld) [#/Vol] 7.9 10*3/uL Normal 4.0-11.0 [facility] Comment on above: Performed By: #### C BCA, CMP, 3040-3, 23203-0, 23023-4 #### [facility] ([id number]) [address] [place] [address] 24645 COMPREHENSIVE METABOLIC PANE Eladio 06-22-2024 Albumin [Mass/Vol] 4.5 g/dL Normal 3.2-5.3 [facility] Comment on above: Performed By: #### C BCA, CMP, 3040-3, 81514-2, 96169-4 #### [facility] ([id number]) [address] [place] [address] 58400 ALP [Catalytic activity/Vol] 62 U/L Normal 39-130 [facility] Comment on above: Performed By: #### C BCA, CMP, 3040-3, 36470-6, 96299-4 #### [facility] ([id number]) [address] [place] [address] 86383 ALT [Catalytic activity/Vol] 30 U/L Normal 0-40 [facility] Comment on above: Performed By: #### C BCA, CMP, 3040-3, 91942-3, 28917-6 #### [facility] ([id number]) [address] [place] [address] 64554 Anion gap [Moles/Vol] 9 mmol/L Normal 5-15 [facility] Comment on above: Performed By: #### C BCA, CMP, 3040-3, 13816-0, 45673-2 #### [facility] ([id number]) [address] [place] [address] 47899 AST [Catalytic activity/Vol] 28 U/L Normal 0-41 [facility] Comment on above: Performed By: #### C BCA, CMP, 3040-3, 10199-7, 94675-1 #### [facility] ([id number]) [address] [place] [address] 71231 Bilirubin [Mass/Vol] 0.7 mg/dL Normal 0.3-1.2 [facility] Comment on above: Performed By: #### C BCA, CMP, 3040-3, 98435-7, 67077-5 #### [facility] ([id number]) [address] [place] [address] 32331 Calcium [Mass/Vol] 9.3 mg/dL Normal 8.5-10.5 [facility] Comment on above: Performed By: #### C BCA, CMP, 3040-3, 96042-9, 91782-8 #### [facility] ([id number]) [address] [place] [address] 54668 Chloride [Moles/Vol] 101 mmol/L Normal 98-109 [facility] Comment on above: Performed By: #### C BCA, CMP, 3040-3, 45979-4, 58890-0 #### [facility] ([id number]) [address] [place] [address] 61536 CO2 [Moles/Vol] 23 mmol/L Normal 22-32 [facility] Comment on above: Performed By: #### C BCA, CMP, 3040-3, 49804-4, 96207-2 #### [facility] ([id number]) [address] [place] [address] 73807 Creatinine [Mass/Vol] 0.80 mg/dL Normal 0.70-1.20 [facility] Comment on above: Result Comment: METH OD TRACEABLE TO IDMS STANDARD Performed By: #### C BCA, CMP, 3040-3, 83893-2, 49744-1 #### [facility] ([id number]) [address] [place] [address] 21605 eGFR (CKD-EPI) NON-RACE DEPENDENT >90 Normal >59 [facility] Comment on above: Result Comment: Reported eGFR is based on the CKD-EPI 2020 equation that does not use a race coefficient. Performed By: #### C BCA, CMP, 3040-3, 83351-3, 64632-8 #### [facility] ([id number]) [address] [place] [address] 03195 Glucose [Mass/Vol] 103 mg/dL High 65-99 [facility] Comment on above: Performed By: #### C BCA, CMP, 3040-3, 76835-7, 48692-9 #### [facility] ([id number]) [address] [place] [address] 50993 Potassium [Moles/Vol] 3.8 mmol/L Normal 3.5-5.0 [facility] Comment on above: Performed By: #### C BCA, CMP, 3040-3, 03258-6, 32872-3 #### [facility] ([id number]) [address] [place] [address] 82238 Protein [Mass/Vol] 7.7 g/dL Normal 6.0-8.0 [facility] Comment on above: Performed By: #### C BCA, CMP, 3040-3, 20475-3, 42220-1 #### [facility] ([id number]) [address] [place] [address] 56052 Sodium [Moles/Vol] 133 mmol/L Low 134-146 [facility] Comment on above: Performed By: #### C BCA, CMP, 3040-3, 80926-7, 91799-2 #### [facility] ([id number]) [address] [place] [address] 75593 Urea nitrogen [Mass/Vol] 22 mg/dL Normal 5-23 [facility] Comment on above: Performed By: #### C BCA, CMP, 3040-3, 94861-5, 92039-5 #### [facility] ([id number]) [address] [place] [address] 62686 LIPASEon 06-22-2024 Lipase [Catalytic activity/Vol] 30 U/L Normal 17-40 [facility] Comment on above: Performed By: #### C BCA, CMP, 3040-3, 71045-6, 30112-4 #### [facility] ([id number]) [address] [place] [address] 41414 Natriuretic peptide B [Mass/ Vol]on 06-22-2024 BRN NATRIURETIC PEP <5 Normal <100.0 [facility] Comment on above: Performed By: #### C BCA, CMP, 3040-3, 07590-9, 66025-5 #### [facility] ([id number]) [address] [place] [address] 94122 SARS/FLU A+B/RSV by NAAT/Mol ecularon 06-22-2024 SARS/FLU [...] operators who are performing tests using either Physiq DX or GeneXSnugg Home systems and is limited to laboratories that [...] specimen repeat. Fact Sheet for Healthcare Providers: https://www.fda.gov/media/14624 2/download Fact Sheet for Patients: https://www.fda.gov/media/30742 6/download Normal [facility] Comment on above: Performed By: #### C OVFLR #### [facility] ([id number]) [address] [place] [address] 26072 Troponin I.cardiac High sens itivity method [Mass/Vol]on 06-22-2024 1 HOUR TROP I, HIGH SENSITIVITY 2 ng/L Normal <21 [facility] Comment on above: Performed By: #### 8 9579-7 #### [facility] ([id number]) [address] [place] [address] 72063 TROPONIN I, HIGH SENSITIVITY <2 Normal <21 [facility] Comment on above: Performed By: #### C BCA, CMP, 3040-3, 32463-5, 71952-9 #### [facility] ([id number]) [address] [place] [address] 30937 VENOUS BLOOD GASon 4 IMMANUEL'S TEST Normal [facility] Comment on above: Performed By: #### V BG #### [facility] ([id number]) [address] [place] [address] 98614 Base excess Calc (Bld) [Moles/Vol] 2.0 mmol/L Normal 0.0-2.0 [facility] Comment on above: Performed By: #### V BG #### [facility] ([id number]) [address] [place] [address] 89175 Body temperature 98.6 [degF] Normal 37.0 [facility] Comment on above: Performed By: #### V BG #### [facility] ([id number]) [address] [place] [address] 18109 HCO3 (Bld) [Moles/Vol] 26.0 mmol/L High 20.0-24.0 [facility] Comment on above: Performed By: #### V BG #### [facility] ([id number]) [address] [place] [address] 98756 Oxygen saturation in Blood 89.0 % Normal >80.0 [facility] Comment on above: Performed By: #### V BG #### [facility] ([id number]) [address] [place] [address] 29924 OXYGEN SOURCE RoomAir Normal [facility] Comment on above: Performed By: #### V BG #### [facility] ([id number]) [address] [place] [address] 36245 PCO2, VENOUS 39.5 MMHG Normal 35-50 [facility] Comment on above: Performed By: #### V BG #### [facility] ([id number]) [address] [place] [address] 99885 PH, VENOUS 7.426 High 7.320-7.42 0 [facility] Comment on above: Performed By: #### V BG #### [facility] ([id number]) [address] [place] [address] 31817 PO2, VENOUS 55 MMHG High 30-50 [facility] Comment on above: Performed By: #### V BG #### [facility] ([id number]) [address] [place] [address] 59368 SAMPLE SITE N/A Normal [facility] Comment on above: Performed By: #### V BG #### [facility] ([id number]) [address] [place] [address] 77433 SAMPLE TYPE VENOUS Normal [facility] Comment on above: Performed By: #### V BG #### [facility] ([id number]) [address] [place] [address] 38788 XR CHEST 2 VWSon 06-22-2024 XR CHEST [...] Berry MD on 06/22/2024 12:49 AM Normal [facility] COVID-19 PCRon 05-28-2020 SARS-CoV-2, TARIQ Not Detected Normal Not Detected [facility] Comment on above: Result Comment: This test was developed and its performance characteristics determined by [facility]. This test has not been FDA cleared [...] assay. Performed By: #### L ACT #### [facility] [address] [place] [address] Maryjong Aly AMMONIAon 04-05-2020 Ammonia (P) [Mass/Vol] 26 umol/L Normal 10-30 [facility] Comment on above: Performed By: #### A MM #### [facility] [address] [place], [place] [id number] Mary Sheeba CARDIAC JENNIFER ADMITon 020 CK [Catalytic activity/Vol] 229 U/L Critically high 55-170 [facility] Comment on above: Result Comment: test repeated critical value verified Performed By: #### L ACT #### [facility] [address] [place] [address] Mary Aly CK.MB [Mass/Vol] 1.95 ng/mL Normal <=2.37 [facility] Comment on above: Performed By: #### L ACT #### [facility] [address] [place], [place] [id number] Mary Aly INR Coag (Bld) [Relative time] SEE BELOW Normal [facility] Comment on above: Result Comment: <0.0 34 ng/ml NEGATIVE 0.034-0.119 INDETERMINATE 0.120 AMI CUT OFF Performed By: #### L ACT #### [facility] [address] [place] [address] Mary Sheeba PAIGE 88.0 ng/mL Normal <=121.0 [facility] Comment on above: Performed By: #### L ACT #### [facility] [address] [place] [address] Mary Sheeba TROP <0.012 Normal <=0.034 [facility] Comment on above: Performed By: #### L ACT #### [facility] [address] [place], [place] [id number] Mary Sheeba CBC AUTO DIFFon 04-05-2020 Basophils (Bld) [#/Vol] 0.1 103/ul Normal 0.0-0.1 [facility] Comment on above: Performed By: #### C BC #### [facility] [address] [place] [address] Mary Sheeba Basophils/100 WBC (Bld) 1.1 % Normal 0.2-2.0 [facility] Comment on above: Performed By: #### C BC #### [facility] [address] [place] [address] Mary Sheeba Eosinophils (Bld) [#/Vol] 0.8 103/ul Critically high 0.0-0.7 [facility] Comment on above: Performed By: #### C BC #### [facility] [address] [place] [address] Mary Sheeba Eosinophils/100 WBC (Bld) 6.1 % Normal 0.9-7.0 [facility] Comment on above: Performed By: #### C BC #### [facility] [address] [place] [address] Mary Sheeba Erythrocyte distribution width (RBC) [Ratio] 12.6 % Normal 11.0-15.0 [facility] Comment on above: Performed By: #### C BC #### [facility] [address] [place] [address] Mary Sheeba Hematocrit (Bld) [Volume fraction] 45.1 % Normal 42.0-54.0 [facility] Comment on above: Performed By: #### C BC #### [facility] [address] [place] [address] Mary Sheeba Hemoglobin (Bld) [Mass/Vol] 15.6 g/dL Normal 14.0-18.0 [facility] Comment on above: Performed By: #### C BC #### [facility] [address] [place] [address] Mary Sheeba IG # 0.07 10e3/ul Critically high 0.00-0.03 [facility] Comment on above: Performed By: #### C BC #### [facility] [address] [place], [place] [id number] Mary Sheeba IG % 0.6 % Critically high 0.0-0.5 [facility] Comment on above: Performed By: #### C BC #### [facility] [address] [place] [address] Mary Sheeba Lymphocytes (Bld) [#/Vol] 4.7 103/ul Critically high 1.2-3.8 [facility] Comment on above: Performed By: #### C BC #### [facility] [address] [place] [address] Mary Sheeba Lymphocytes/100 WBC (Bld) 38.2 % Normal 20.5-60.0 [facility] Comment on above: Performed By: #### C BC #### [facility] [address] [place] [address] Mary Sheeba MANUAL DIFF REQ NO Normal [facility] Comment on above: Performed By: #### C BC #### [facility] [address] [place], [place] [id number] Mary Sheeba MCH (RBC) [Entitic mass] 31.8 pg Normal 25.9-34.0 [facility] Comment on above: Performed By: #### C BC #### [facility] [address] [place] [address] Mary Sheeba MCHC (RBC) [Mass/Vol] 34.6 g/dL Normal 29.9-35.2 [facility] Comment on above: Performed By: #### C BC #### [facility] [address] [place], [place] [address] Mary Sheeba MCV (RBC) [Entitic vol] 92.0 fL Normal 80.0-94.0 [facility] Comment on above: Performed By: #### C BC #### [facility] [address] [place], [place] [address] Mary Sheeba Monocytes (Bld) [#/Vol] 0.8 103/ul Normal 0.3-0.8 [facility] Comment on above: Performed By: #### C BC #### [facility] [address] [place] [address] Mary Sheeba Monocytes/100 WBC (Bld) 6.8 % Normal 1.7-12.0 [facility] Comment on above: Performed By: #### C BC #### [facility] [address] [place], [place] [address] Mary Sheeba Neutrophils (Bld) [#/Vol] 5.8 103/ul Normal 1.4-6.5 [facility] Comment on above: Performed By: #### C BC #### [facility] [address] [place], [place] [address] Mary Sheeba Neutrophils/100 WBC (Bld) 47.2 % Normal 43.0-75.0 [facility] Comment on above: Performed By: #### C BC #### [facility] [address] [place], [place] [address] Mary Sheeba Platelet mean volume (Bld) [Entitic vol] 9.9 fL Normal 9.5-13.5 [facility] Comment on above: Performed By: #### C BC #### [facility] [address] [place], [place] [address] Mary Sheeba Platelets (Bld) [#/Vol] 293 103/ul Normal 150-450 [facility] Comment on above: Performed By: #### C BC #### [facility] [address] [place], [place] [address] Mary Sheeba RBC (Bld) [#/Vol] 4.90 106/ul Normal 4.70-6.10 [facility] Comment on above: Performed By: #### C BC #### [facility] [address] [place], [place] [address] Mary Sheeba WBC (Bld) [#/Vol] 12.3 103/ul Critically high 4.0-11.0 [facility] Comment on above: Performed By: #### C BC #### [facility] [address] [place] [address] Mary Aly D-DIMERon 04-05-2020 D-DIMER COMMENTS SEE BELOW Normal [facility] Comment on above: Result Comment: Incr [...] hospitalization. Performed By: #### L ACT #### [facility] [address] [place] [address] Mary Sheeba Fibrin D-dimer FEU IA (Bld) [Mass/Vol] 0.29 ug/mL Normal 0.19-0.50 [facility] Comment on above: Performed By: #### L ACT #### [facility] [address] [place] [address] Mary Aly DRUG SCREEN RAPID (URINE)on 04-05-2020 AMP Negative Normal NEGATIVE [facility] Comment on above: Performed By: #### L ACT #### [facility] [address] [place] [address] Mary Sheeba BAR Negative Normal NEGATIVE [facility] Comment on above: Performed By: #### L ACT #### [facility] [address] [place] [address] Mary Sheeba BUP Negative Normal NEGATIVE [facility] Comment on above: Performed By: #### L ACT #### [facility] [address] [place] [address] Mary Hseeba BZO Negative Normal NEGATIVE [facility] Comment on above: Performed By: #### L ACT #### [facility] [address] [place] [address] Mary Sheeba ADAMARIS Negative Normal NEGATIVE [facility] Comment on above: Performed By: #### L ACT #### [facility] [address] [place] [address] Mary Sheeba CUT-OFFS SEE BELOW Normal [facility] Comment on above: Result Comment: AMP [...] ng/mL Performed By: #### L ACT #### [facility] [address] [place] [address] DRUG CUT HEADER DRUG CLASS TEST SYST EM CUT-OFF CONCENTRATIONS ARE FOLLOWS: Normal [facility] Comment on above: Performed By: #### L ACT #### [facility] [address] [place] [address] Mary Sheeba mAMP Negative Normal NEGATIVE [facility] Comment on above: Performed By: #### L ACT #### [facility] [address] [place] [address] [facility] Normal NEGATIVE [facility] Comment on above: Performed By: #### L ACT #### [facility] [address] [place] [address] Mary Sheeba OPI Negative Normal NEGATIVE [facility] Comment on above: Performed By: #### L ACT #### [facility] [address] [place] [address] [facility] Negative Normal NEGATIVE [facility] Comment on above: Performed By: #### L ACT #### [facility] [address] [place] [address] PCP Negative Normal NEGATIVE [facility] Comment on above: Performed By: #### L ACT #### [facility] [address] [place] [address] PPX Negative Normal NEGATIVE [facility] Comment on above: Performed By: #### L ACT #### [facility] [address] [place], [place] [id number] Mary Sheeba TCA Negative Normal NEGATIVE [facility] Comment on above: Performed By: #### L ACT #### [facility] [address] [place], [place] [address] Maryjong Aly THC Negative Normal NEGATIVE [facility] Comment on above: Performed By: #### L ACT #### [facility] [address] [place], [place] [address] Mary Sheeba ETHANOL (BLD ALC)on 04-05-20 20 Ethanol [Mass/Vol] NOTE: 80 mg/dl is th e legal limit for a blood alcohol level Normal [facility] Comment on above: Performed By: #### E TH #### [facility] [address] [place] [address] Mary Sheeba Ethanol [Mass/Vol] 242 mg/dL Normal [facility] Comment on above: Performed By: #### E TH #### [facility] [address] [place] [address] Maryjong Varelaen PROF 14(COMP METB)on 020 Albumin [Mass/Vol] 4.0 g/dL Normal 3.5-5.0 [facility] Comment on above: Performed By: #### L ACT #### [facility] [address] [place], [place] [address] Mary Sheeba Albumin/Globulin [Mass ratio] 1.1 {ratio} Normal [facility] Comment on above: Performed By: #### L ACT #### [facility] [address] [place] [address] Mary Sheeba ALP [Catalytic activity/Vol] 74 U/L Normal 38-126 [facility] Comment on above: Performed By: #### L ACT #### [facility] [address] [place], [place] [address] Mary Sheeba ALT [Catalytic activity/Vol] 37 U/L Normal 21-72 [facility] Comment on above: Performed By: #### L ACT #### [facility] [address] [place], [place] [address] Mary Sheeba Anion gap [Moles/Vol] 19.2 mmol/L Normal [facility] Comment on above: Performed By: #### L ACT #### [facility] [address] [place] [address] Maryjong Varelaen AST [Catalytic activity/Vol] 31 U/L Normal 17-59 [facility] Comment on above: Performed By: #### L ACT #### [facility] [address] [place] [address] Mary Sheeba Bilirubin Ql (U) 0.3 mg/dL Normal 0.2-1.3 [facility] Comment on above: Performed By: #### L ACT #### [facility] [address] [place] [address] Mary Sheeba Calcium [Mass/Vol] 8.6 mg/dL Normal 8.4-10.2 [facility] Comment on above: Performed By: #### L ACT #### [facility] [address] [place] [address] Mary Sheeba Chloride [Moles/Vol] 105 mmol/L Normal 98-107 [facility] Comment on above: Performed By: #### L ACT #### [facility] [address] [place] [address] Mary Sheeba CO2 [Moles/Vol] 22.5 mmol/L Normal 22.0-30.0 [facility] Comment on above: Performed By: #### L ACT #### [facility] [address] [place] [address] Mary Sheeba Creatinine [Mass/Vol] 0.79 mg/dL Normal 0.66-1.25 [facility] Comment on above: Performed By: #### L ACT #### [facility] [address] [place] [address] Mary Sheeba EGFR-AF FIJIAN >60 Normal >=60 [facility] Comment on above: Performed By: #### L ACT #### [facility] [address] [place] [address] Mary Sheeba EGFR-NON AF FIJIAN >60 Normal >=60 [facility] Comment on above: Performed By: #### L ACT #### [facility] [address] [place], [place] [address] Mary Sheeba Globulin (S) [Mass/Vol] 3.8 g/dL Normal [facility] Comment on above: Performed By: #### L ACT #### [facility] [address] [place], [place] [address] Mary Sheeba Glucose [Mass/Vol] 103 mg/dL Normal 74-106 [facility] Comment on above: Performed By: #### L ACT #### [facility] [address] [place], [place] [address] Mary Sheeba Potassium [Moles/Vol] 3.7 mmol/L Normal 3.4-5.0 [facility] Comment on above: Result Comment: slig htly hemolyzed Performed By: #### L ACT #### [facility] [address] [place], [place] [address] Mary Sheeba Protein [Mass/Vol] 7.8 g/dL Normal 6.1-8.2 [facility] Comment on above: Performed By: #### L ACT #### [facility] [address] [place], [place] [address] Mary Sheeba Sodium [Moles/Vol] 143 mmol/L Normal 137-145 [facility] Comment on above: Performed By: #### L ACT #### [facility] [address] [place], [place] [address] Mary Sheeba Urea nitrogen [Mass/Vol] 6.0 mg/dL Critically low 9.0-20.0 [facility] Comment on above: Performed By: #### L ACT #### [facility] [address] [place], [place] [address] Mary Sheeba Urea nitrogen/Creatinin e [Mass ratio] 7.6 mg/mg Normal [facility] Comment on above: Performed By: #### L ACT #### [facility] [address] [place], [place] [address] Mary Sheeba XR CHEST 1 Von 04-05-2020 [...] KELLY THOMAS Date: 2020-04-05 21:34 Normal [facility] CT ABD/PELV W CONon 03-25-20 20 [...] JUSTIN ALEMAN Date: 2020-03-24 23:05 Normal [facility] AMYLASEon 03-24-2020 Amylase [Catalytic activity/Vol] 37 U/L Normal 31-110 [facility] Comment on above: Performed By: #### C MP, DARIAN, LIPA #### [facility] [address] [place], [place] [address] Mary Aly CBC AUTO DIFFon 03-24-2020 Basophils (Bld) [#/Vol] 0.1 103/ul Normal 0.0-0.1 [facility] Comment on above: Performed By: #### C BC #### [facility] [address] [place], [place] [id number] Mary Sheeba Basophils/100 WBC (Bld) 0.6 % Normal 0.2-2.0 [facility] Comment on above: Performed By: #### C BC #### [facility] [address] [place], [place] [id number] Mary Sheeba Eosinophils (Bld) [#/Vol] 0.4 103/ul Normal 0.0-0.7 [facility] Comment on above: Performed By: #### C BC #### [facility] [address] [place], [place] [id number] Mary Sheeba Eosinophils/100 WBC (Bld) 3.1 % Normal 0.9-7.0 [facility] Comment on above: Performed By: #### C BC #### [facility] [address] [place], [place] [id number] Mary Sheeba Erythrocyte distribution width (RBC) [Ratio] 12.7 % Normal 11.0-15.0 [facility] Comment on above: Performed By: #### C BC #### [facility] [address] [place], [place] [id number] Mary Sheeba Hematocrit (Bld) [Volume fraction] 47.5 % Normal 42.0-54.0 [facility] Comment on above: Performed By: #### C BC #### [facility] [address] [place], [place] [id number] Mary Sheeba Hemoglobin (Bld) [Mass/Vol] 16.2 g/dL Normal 14.0-18.0 [facility] Comment on above: Performed By: #### C BC #### [facility] [address] [place], [place] [address] Mary Sheeba IG # 0.06 10e3/ul Critically high 0.00-0.03 [facility] Comment on above: Performed By: #### C BC #### [facility] [address] [place], [place] [address] Mary Sheeba IG % 0.5 % Normal 0.0-0.5 [facility] Comment on above: Performed By: #### C BC #### [facility] [address] [place] [address] Mary Sheeba Lymphocytes (Bld) [#/Vol] 2.2 103/ul Normal 1.2-3.8 [facility] Comment on above: Performed By: #### C BC #### [facility] [address] [place], [place] [id number] Mary Sheeba Lymphocytes/100 WBC (Bld) 17.1 % Critically low 20.5-60.0 [facility] Comment on above: Performed By: #### C BC #### [facility] [address] [place], [place] [address] Mary Sheeba MANUAL DIFF REQ NO Normal [facility] Comment on above: Performed By: #### C BC #### [facility] [address] [place], [place] [id number] Mary Sheeba MCH (RBC) [Entitic mass] 31.9 pg Normal 25.9-34.0 [facility] Comment on above: Performed By: #### C BC #### [facility] [address] [place] [address] Mary Sheeba MCHC (RBC) [Mass/Vol] 34.1 g/dL Normal 29.9-35.2 [facility] Comment on above: Performed By: #### C BC #### [facility] [address] [place], [place] [address] Mary Sheeba MCV (RBC) [Entitic vol] 93.5 fL Normal 80.0-94.0 [facility] Comment on above: Performed By: #### C BC #### [facility] [address] [place], [place] [address] Mary Sheeba Monocytes (Bld) [#/Vol] 0.9 103/ul Critically high 0.3-0.8 [facility] Comment on above: Performed By: #### C BC #### [facility] [address] [place], [place] [address] Mary Sheeba Monocytes/100 WBC (Bld) 6.5 % Normal 1.7-12.0 [facility] Comment on above: Performed By: #### C BC #### [facility] [address] [place], [place] [address] Mary Sheeba Neutrophils (Bld) [#/Vol] 9.5 103/ul Critically high 1.4-6.5 [facility] Comment on above: Performed By: #### C BC #### [facility] [address] [place], [place] [address] Mary Sheeba Neutrophils/100 WBC (Bld) 72.2 % Normal 43.0-75.0 [facility] Comment on above: Performed By: #### C BC #### [facility] [address] [place], [place] [id number] Mary Sheeba Platelet mean volume (Bld) [Entitic vol] 10.5 fL Normal 9.5-13.5 [facility] Comment on above: Performed By: #### C BC #### [facility] [address] [place], [place] [address] Mary Sheeba Platelets (Bld) [#/Vol] 271 103/ul Normal 150-450 [facility] Comment on above: Performed By: #### C BC #### [facility] [address] [place], [place] [address] Mary Sheeba RBC (Bld) [#/Vol] 5.08 106/ul Normal 4.70-6.10 [facility] Comment on above: Performed By: #### C BC #### [facility] [address] [place], [place] [address] Mary Sheeba WBC (Bld) [#/Vol] 13.1 103/ul Critically high 4.0-11.0 [facility] Comment on above: Performed By: #### C BC #### [facility] [address] [place], [place] [address] Mary Sheeba LACTATE/LACTIC ACIDon 2019 Lactate [Moles/Vol] 0.8 mmol/L Normal 0.7-2.0 [facility] Comment on above: Performed By: #### L ACT #### [facility] [address] [place] [address] Mary Sheeba LIPASEon 03-24-2020 Lipase [Catalytic activity/Vol] 123.0 U/L Normal 23.0-300.0 [facility] Comment on above: Performed By: #### C DARIAN MENDOZA LIPA #### [facility] [address] [place] [address] Maryjong Varelaen PROF 14(COMP METB)on 020 Albumin [Mass/Vol] 4.5 g/dL Normal 3.5-5.0 [facility] Comment on above: Performed By: #### C DARIAN MENDOZA, LIPA #### [facility] [address] [place] [address] Mary Sheeba Albumin/Globulin [Mass ratio] 1.2 {ratio} Normal [facility] Comment on above: Performed By: #### C DARIAN MENDOZA LIPA #### [facility] [address] [place] [address] Mary Sheeba ALP [Catalytic activity/Vol] 69 U/L Normal 38-126 [facility] Comment on above: Performed By: #### C DARIAN MENDOZA LIPA #### [facility] [address] [place] [address] Mary Sheeba ALT [Catalytic activity/Vol] 27 U/L Normal 21-72 [facility] Comment on above: Performed By: #### C DARIAN MENDOZA LIPA #### [facility] [address] [place] [address] Mary Sheeba Anion gap [Moles/Vol] 13.0 mmol/L Normal [facility] Comment on above: Performed By: #### C DARIAN MENDOZA, LIPA #### [facility] [address] [place] [address] Mary Sheeba AST [Catalytic activity/Vol] 19 U/L Normal 17-59 [facility] Comment on above: Performed By: #### C DARIAN MENDOZA LIPA #### [facility] [address] [place] [address] Mary Sheeba Bilirubin Ql (U) 0.4 mg/dL Normal 0.2-1.3 [facility] Comment on above: Performed By: #### C DARIAN MENDOZA LIPA #### [facility] [address] [place] [address] Mary Sheeba Calcium [Mass/Vol] 10.0 mg/dL Normal 8.4-10.2 [facility] Comment on above: Performed By: #### C DARIAN MENDOZA LIPA #### [facility] [address] [place] [address] Mary Sheeba Chloride [Moles/Vol] 100 mmol/L Normal 98-107 [facility] Comment on above: Performed By: #### C DARIAN MENDOZA LIPA #### [facility] [address] [place] [address] Mary Sheeba CO2 [Moles/Vol] 27.7 mmol/L Normal 22.0-30.0 [facility] Comment on above: Performed By: #### C DARIAN MENDOZA LIPA #### [facility] [address] [place] [address] Mary Sheeba Creatinine [Mass/Vol] 0.70 mg/dL Normal 0.66-1.25 [facility] Comment on above: Performed By: #### C DARIAN MENDOZA LIPA #### [facility] [address] [place] [address] Mary Sheeba EGFR-AF FIJIAN >60 Normal >=60 [facility] Comment on above: Performed By: #### C DARIAN MENDOZA LIPA #### [facility] [address] [place] [address] Mary Sheeba EGFR-NON AF FIJIAN >60 Normal >=60 [facility] Comment on above: Performed By: #### C DARIAN MENDOZA LIPA #### [facility] [address] [place] [address] Mary Sheeba Globulin (S) [Mass/Vol] 3.8 g/dL Normal [facility] Comment on above: Performed By: #### C DARIAN MENDOZA LIPA #### [facility] [address] [place] [address] Mary Sheeba Glucose [Mass/Vol] 103 mg/dL Normal 74-106 [facility] Comment on above: Performed By: #### C DARIAN MENDOZA LIPA #### [facility] [address] [place] [address] Mary Sheeba Potassium [Moles/Vol] 3.7 mmol/L Normal 3.4-5.0 [facility] Comment on above: Performed By: #### C DARIAN MENDOZA LIPA #### [facility] [address] [place] [address] Mary Sheeba Protein [Mass/Vol] 8.3 g/dL Critically high 6.1-8.2 [facility] Comment on above: Performed By: #### C DARIAN MENDOZA LIPA #### [facility] [address] [place] [address] Mary Sheeba Sodium [Moles/Vol] 137 mmol/L Normal 137-145 [facility] Comment on above: Performed By: #### C DARIAN MENDOZA LIPA #### [facility] [address] [place] [address] Mary Sheeba Urea nitrogen [Mass/Vol] 13.0 mg/dL Normal 9.0-20.0 [facility] Comment on above: Performed By: #### C DARIAN MENDOZA LIPA #### [facility] [address] [place] [address] Mary Sheeba Urea nitrogen/Creatinin e [Mass ratio] 18.6 mg/mg Normal [facility] Comment on above: Performed By: #### C DARIAN MENDOZA LIPA #### [facility] [address] [place] [address] Mary Sheeba XR ABD FLAT UP_PA [facility] 03-24 XR ABD FLAT UP_PA CH EXAM: [...] by: LISA NUNN Date: 2020-03-24 21:01 Normal [facility] Coding Summary.on 11-12-2017 Coding Summary. CODING DATE: [facility] STATUS: Home (Routine DC) PAYOR: Medicaid [...] Blanc Date Saved: 11/12/2017 08:29 am Normal [facility] Coding Summary.on 10-29-2017 Coding Summary. CODING DATE: [facility] STATUS: Home (Routine DC) PAYOR: Medicaid [...] Blanc Date Saved: 10/29/2017 07:50 am Normal [facility] Coding Summary.on 10-19-2017 Coding Summary. CODING DATE: [facility] STATUS: Home w/ Home Health PAYOR: Medicaid Grouper: 872 MS-DRG SEPTICEMIA OR SEVERE SEPSIS W/O MV >96 HOURS W/O LONGTERM Low Trim 0 High Trim 999 720 [...] Espinosa Date Saved: 10/19/2017 02:22 pm Normal [facility] Discharge Summaryon 10-16-19 Discharge Summary Patient: Alexx WILKES Age: 27 years Sex: Male : 1990 Associated Diagnoses: None Author: Sushant DC, [facility] Discharge Information Discharge Summary Information: Admit Date/Time: [...] serum enzymes Prescription and Home Meds: acetaminophen-hydrocodone (London 325 mg-5 mg oral tablet) See Instructions, [...] fluid. Mild paralumbar tenderness.. Integumentary: Warm, Dry, Norco. Neurologic: Alert, Oriented. Psychiatric: Cooperative, Appropriate mood & affect. Hospital Course 27-year-old male with no significant past medical history presented with complaints of left flank and left lower back pain of about 2-3 weeks duration associated with fever, chills and nausea. He was subsequently admitted to [facility] with sepsis secondary to left paralumbar MSSA [...] reviewed with patient, called to pharmacy. Normal [facility] Comment on above: Result Comment: Elec tronically Signed By: Sushant DC, Juan Pablo\.br\Date and Time Signed: 10/16/17 13:50 EST Inpatient Clinical Summaryon 10-16-2017 Inpatient Clinical Summary [place] [address] Clinical Summary Person Information:Name: WILLOW WILKES Age: 27 Years : 1990 12:00 AM Sex: Male PCP: Myra Middleton MD Marital Status:Single Race:White Ethnicity:Non- or Language:Eritrean Visit Id: Visit Reason:Increased heart rate; Nausea; Dizziness; Pain in back; CELLULITIS, PHLEGMON, TACHYCARDIA Speciality: Acuity: 3 Enc Type: Inpatient Med Service: Medical Arrival:10/05/2017 5:35 PM Discharge: Dispo Type: Admitted as IP to this Hosp Address:Alondra SANDOVAL [facility] [id number] Provider Notes: Diagnosis:Cellulitis of lower back; Elevated [...] Immunizations Documented This Visit Final Med List:acetaminophen-hydrocodone (London 325 mg-5 mg oral tablet) 1 - [...] Follow up:With: Address: When: Myra Middleton [address] [place] [address] Business (1) Within 5 to 7 days Comments: Call for followup appointment. No answer With: Address: When: Donald Cyr [address] [place] [address] Business (1) Within 2 weeks Comments: Call for followup appointment. Office computer is down right now. Call Wednesday for appointment With: Address: When: Jose M Patten [address], [facility] [address] [place] [address] Business (1) 10/28/17 09:55:00 Comments: Call for followup appointment With: Address: When: Wound Clinic: [facility] [phone] 10/14/17 08:00:00 Comments: Keep scheduled appointment Patient Education Information: Cellulitis, Sfiy-tc-RspqXqnahd, London 5/325 Tab Normal [facility] Inpatient Patient Summaryon 10-16-2017 Inpatient Patient Summary [address] [address] Patient Discharge Instructions PERSON INFORMATION Name: WILLOW WILKES Date of : 1990 12:00 AM Current Date: 10/16/17 12:14:08 PHYSICIANS Admitting Physician: Luis F Benavides DO [facility] Care Physician: Evelin Middleton MD Comment: Discharge [...] NoneFollow up:With: Address: When: Myra Middleton [address] [place] [address] Business (1) Within 5 to 7 days Comments: Call for followup appointment. No answer With: Address: When: Donald [address]yr [address] [place] [address] Business (1) Within 2 weeks Comments: Call for followup appointment. Office computer is down right now. Call Wednesday for appointment With: Address: When: Jose M Patten [address] [facility], [facility] [address] [place] [address] Business (1) 10/28/17 09:55:00 Comments: Call for followup appointment With: Address: When: Wound Clinic: [facility] [phone] 10/14/17 08:00:00 Comments: Keep scheduled appointment In the event that this physician does not participate in your insurance network, please consult with your insurance company to find a nearby participating provider. Comment: CHUNG Bustamante RYAN, have received the attached patient education materials/instructions and have verbalized understanding:Patient Signature Date Clinican/Nurse Signature Date HERE ARE THE MEDICATION CHANGES THAT OCCURRED DURING YOUR HOSPITAL STAY New [facility] [address] [place] [address], [phone]-hydrocodone (London 325 mg-5 mg oral tablet) 1 - [...] THIS WITH YOU AT ALL TIMES. acetaminophen-hydrocodone (London 325 mg-5 mg oral tablet) 1 - [...] 02/11/2015 Document Reviewed: 12/12/2012ExitCare? Patient Information ?2015 [employer]. This information is not intended to replace [...] may report side effects to FDA at 7-781-NXU-2080. What other drugs will affect cephalexin?Other drugs may interact with cephalexin, including prescription and pnqf-haf-dzcsifb medicines, vitamins, and herbal products. Tell each [...] to ensure that the information provided by [employer]. ('[employer]') is accurate, up-to-date, and complete, but no guarantee is made to that effect. Drug information contained herein may be time sensitive. [employer] information has been compiled for use by healthcare practitioners and consumers in the [place] and therefore [employer] does not warrant that uses outside of the [place] are appropriate, unless specifically indicated otherwise. [employer] drug information does not endorse drugs, diagnose patients or recommend therapy. [employer] drug information is an informational resource designed [...] effective or appropriate for any given patient. [facility] does not assume any responsibility for any aspect of healthcare administered with the aid of information [facility] provides. The information contained herein is not intended to cover all possible uses, directions, precautions, warnings, drug interactions, allergic reactions, or adverse effects. If you have questions about the drugs you are taking, check with your doctor, nurse or pharmacist. Copyright 0291-1517 [facility] [employer]. Version: 9.01. Revision Date: 01/26/2017.acetaminophen and hydrocodone (a SEET a MIN [place] fen and pete droe KOE done)Hycet, Lorcet, Lortab 10/325, Lortab 5/325, Lortab 7.5/325, Lortab Elixir, London, Verdrocet, Vicodin, Xodol, Zamicet What is the [...] may report side effects to FDA at 3-251-XST-5623.What other drugs will affect acetaminophen and hydrocodone?Narcotic [...] with acetaminophen and hydrocodone, including prescription and ptpe-yoo-gfgvwbe medicines, vitamins, and herbal products. Not all [...] to ensure that the information provided by [employer]. ('[employer]') is accurate, up-to-date, and complete, but no guarantee is made to that effect. Drug information contained herein may be time sensitive. [employer] information has been compiled for use by healthcare practitioners and consumers in the [place] and therefore [employer] does not warrant that uses outside of the [place] are appropriate, unless specifically indicated otherwise. [employer] drug information does not endorse drugs, diagnose patients or recommend therapy. [employer] drug information is an informational resource designed [...] effective or appropriate for any given patient. [employer] does not assume any responsibility for any aspect of healthcare administered with the aid of information [employer] provides. The information contained herein is not intended to cover all possible uses, directions, precautions, warnings, drug interactions, allergic reactions, or adverse effects. If you have questions about the drugs you are taking, check with your doctor, nurse or pharmacist. Copyright 1381-4766 [employer]. Version: 14.11. Revision Date: 07/09/2016. 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 Canchola, [facility] Alisa, Pharmacist Maryjane present. Patient alert and oriented, involved in POC. Discussed medications, labs, and tests. Pt remains in isolation. No family present at this time. Patient?s goal is to return home with [facility] at discharge. Anticipated discharge yet to be determined, awaiting wound vac authorization from [place] [employer]. Contact and goal information updated on white board. Normal [facility] Progress Note-Physicianon Progress Note-Physician Patient: WILLOW WILKES [...] (4)ceFAZolin 2 gram 50 mL, IV Piggyback, t7ufvckbhuxj sodium 100 mg Cap [F] 100 mg 1 cap(s), Oral, BIDnicotine 14 mg/24 hr Transderm ER Film [F] 14 mg 1 patch(es), TransDermal, DailySodium Chloride 0.9% 500 mL 500 mL, IVContinuous: (1)Lactated Ringers 1,000 mL 1,000 mL, IV, 20 mL/hrPRN: (6)acetaminophen 325 mg Tab UD [F] 650 mg 2 tab(s), Oral, j6fpnfihijionlisj-uctbmvjip 325 mg-5 mg Tab [F] 1 tab(s), Oral, i6wlpobhaacrd 0.083% Inh Mary 3 mL [F] 2.5 mg 3 mL, NEB, f5hckijewpckt CFC free 90 mcg/inh Inh Aer w/Adapt 8.5 gm [F] 180 microgram 2 puff(s), Inhalation, t0rvlenlkamg 2 mg/mL preservative-free SOLN [F] 2 mg 1 mL, IV Push, s8mocppxlkcforg 2 mg/mL Inj [F] 4 mg 2 mL, IV Push, q6hr Problem list: All ProblemsImpaired skin integrity / SNOMED CT 91624977 / ConfirmedProblem added on documentation of skin impairments.At risk for falls / SNOMED CT 550054192 / PossibleProblem added when Risk for Falls Careplan was initiated.Smoker / IMO [id number] / ConfirmedAdded secondary to documentation in Social History.Resolved: Asthma / SNOMED CT 819715841 Histories Past Medical History: ResolvedAsthma ([id number]): Resolved. Family History: AsthmaMother Procedure history: Incision AND drainage (SNOMED CT 794315829) performed by Jose M Patten MD on 10/08/2017 at 27 Years.Comments:10/08/2017 19:32 - Magda THOMPSON, Julieta NI AND D AND IRRIGATION LEFT LOWER BACK ABCESS 10 X 15 CMIncision AND drainage (SNOMED CT 266505247).Comments:10/06/2017 06:12 - Philippe Cabezas RN right hand Social History Social & Psychosocial JnzqnnFqnknuc16/26/2017 Risk Assessment: Denies Alcohol UseSubstance Abuse10/05/2017 Risk Assessment: Denies Substance NzzukNiihgcl02/26/2017 Risk Assessment: High Risk10/05/2017 Use: Current Every [...] Delarosa MD on October 08, 2017 08:58 [facility] info: [id number], Abdi Costilla, Inpatient, 10/05/2017 - . Condition: Fair. Impression [...] homebound wound VAC. Awaiting precertification by insurance. [facility] Comment on above: Result Comment: Elec [...] (4)ceFAZolin 2 gram 50 mL, IV Piggyback, g8nkplvzrlwi sodium 100 mg Cap [F] 100 mg 1 cap(s), Oral, BIDnicotine 14 mg/24 hr Transderm ER Film [F] 14 mg 1 patch(es), TransDermal, DailySodium Chloride 0.9% 500 mL 500 mL, IVContinuous: (1)Lactated Ringers 1,000 mL 1,000 mL, IV, 20 mL/hrPRN: (6)acetaminophen 325 mg Tab UD [F] 650 mg 2 tab(s), Oral, q5gbynxmmgtpwlnhc-bmppbfbch 325 mg-5 mg Tab [F] 1 tab(s), Oral, a1utykknovwdp 0.083% Inh Mary 3 mL [F] 2.5 mg 3 mL, NEB, y5mipkrdrzjwy CFC free 90 mcg/inh Inh Aer w/Adapt 8.5 gm [F] 180 microgram 2 puff(s), Inhalation, f8tlcawwjoor 2 mg/mL preservative-free SOLN [F] 2 mg 1 mL, IV Push, p5dhfzsgyikpzjy 2 mg/mL Inj [F] 4 mg 2 mL, IV Push, q6hr Problem list: All ProblemsAt risk for falls / SNOMED CT 159156559 / PossibleProblem added when Risk for Falls Careplan was initiated.Impaired skin integrity / SNOMED CT 56706239 / ConfirmedProblem added on documentation of skin impairments.Smoker / IMO [id number] / ConfirmedAdded secondary to documentation in Social [...] on dc for total 3 weeks. . [facility] Comment on above: Result Comment: Elec tronically Signed By: Donald Cyr M.D.pretty\Date and Time Signed: 10/15/17 10:25 EST Interdisciplinary Note - Brett e Manageron 10-14-2017 Thyroid stimulating hormone (TSH) Daily rounds completed with hospitalist Dr. Canchola, [facility] Alisa, Pharmacist Trey present. Patient alert and [...] and goal information updated on white board. [facility] Progress Note-Physicianon Progress Note-Physician Patient: WILLOW [...] (4)ceFAZolin 2 gram 50 mL, IV Piggyback, p9ikecqfzail sodium 100 mg Cap [F] 100 mg 1 cap(s), Oral, BIDnicotine 14 mg/24 hr Transderm ER Film [F] 14 mg 1 patch(es), TransDermal, DailySodium Chloride 0.9% 500 mL 500 mL, IVContinuous: (1)Lactated Ringers 1,000 mL 1,000 mL, IV, 20 mL/hrPRN: (6)acetaminophen 325 mg Tab UD [F] 650 mg 2 tab(s), Oral, f9eaibjbbbnvhrima-sxhjkvjll 325 mg-5 mg Tab [F] 1 tab(s), Oral, l8cqbnhxfojjs 0.083% Inh Mary 3 mL [F] 2.5 mg 3 mL, NEB, o9uxiutnacoxj CFC free 90 mcg/inh Inh Aer w/Adapt 8.5 gm [F] 180 microgram 2 puff(s), Inhalation, r4oyqvzbhpbr 2 mg/mL preservative-free SOLN [F] 2 mg 1 mL, IV Push, q8xqcxdlgikprwy 2 mg/mL Inj [F] 4 mg 2 mL, IV Push, q6hr Problem list: All ProblemsImpaired skin integrity / SNOMED CT 83660115 / ConfirmedProblem added on documentation of skin impairments.At risk for falls / SNOMED CT 426683575 / PossibleProblem added when Risk for Falls Careplan was initiated.Smoker / IMO [id number] / ConfirmedAdded secondary to documentation in Social History.Resolved: Asthma / SNOMED CT 658357265 Histories Past Medical History: ResolvedAsthma (915867762): Resolved. Family History: AsthmaMother Procedure history: Incision AND drainage (SNOMED CT 271729856) performed by Jose M Patten MD on 10/08/2017 at 27 Years.Comments:10/08/2017 19:32 - Magda THOMPSON, Julieta IGLESIAS AND D AND IRRIGATION LEFT LOWER BACK ABCESS 10 X 15 CMIncision AND drainage (SNOMED CT 306748254).Comments:10/06/2017 06:12 - Philippe Cabezas RN right hand Social History Social & Psychosocial NwhksaYmmmhox91/26/2017 Risk Assessment: Denies Alcohol UseSubstance Abuse10/05/2017 Risk Assessment: Denies Substance XpceyVsqlwoz36/26/2017 Risk Assessment: High Risk10/05/2017 Use: Current Every [...] Delarosa MD on October 08, 2017 08:58 [facility] info: [id number], Abdi Ariel, Inpatient, 10/05/2017 - . Condition: [...] homebound wound VAC. Awaiting precertification by insurance. [facility] Comment on above: Result Comment: Elec [...] days.Performing LocationsR1: [facility] at: [facility], [address] [place] [address], [address] , [facility] Comment on above: Performed By: #### 1 [id number], 0744226, 52412904, 3378507, 64473485, 2527038, 7536956 ####[address] [place] [address] Bacteria culture MicrobiologyPROCEDUR E: Blood Culture [R1] Blood BODY SITE: Arm RCOLLECTED DATE/TIME: 10/05/2017 23:08 EST RECEIVED DATE/TIME: 10/06/2017 01:00 ESTSTART DATE/TIME: 10/06/2017 01:00 EST FREE TEXT SOURCE: Peripheral vein site #1Hwalter Mcfadden, Анна H Melissa Mcfadden, Анна NicoleFINAL REPORTSFinal Report [] Verified Date/Time: 10/13/2017 03:00 ESTNo growth at 7 days.Performing LocationsR1: This test was performed at: [facility], [address] [place] [address], [address] , [facility] Comment on above: Performed By: #### 1 [id number], 8581117, 32069714, 1845920, 97355180, 9018678, 2814683 ####[facility] [address] [place] [address] Interdisciplinary Note - Brett e Manageron 10-13-2017 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 Canchola, MARY Cuellar, Pharmacist Maryjane, Furniture Mover Driver Damaris, and RN present. Patient alert and oriented, involved in POC. Discussed medications, labs, and tests. No family present at this time. Patient?s goal is to return home with [facility] wound Vac at discharge. Anticipated discharge yet to be determined, awaiting wound vac authorization. Contact and goal information updated on white board. Normal [facility] Progress Note-Physicianon Progress Note-Physician Patient: WILLOW WILKES [...] (4)ceFAZolin 2 gram 50 mL, IV Piggyback, m1iaghrmiims sodium 100 mg Cap [F] 100 mg 1 cap(s), Oral, BIDnicotine 14 mg/24 hr Transderm ER Film [F] 14 mg 1 patch(es), TransDermal, DailySodium Chloride 0.9% 500 mL 500 mL, IVContinuous: (1)Lactated Ringers 1,000 mL 1,000 mL, IV, 20 mL/hrPRN: (5)acetaminophen 325 mg Tab UD [F] 650 mg 2 tab(s), Oral, g9azpqeltyfpx 0.083% Inh Mary 3 mL [F] 2.5 mg 3 mL, NEB, p7uinltlshqyk CFC free 90 mcg/inh Inh Aer w/Adapt 8.5 gm [F] 180 microgram 2 puff(s), Inhalation, f2toxambjeny 2 mg/mL preservative-free SOLN [F] 4 mg 2 mL, IV Push, j2vnfmumqpyhvdg 2 mg/mL Inj [F] 4 mg 2 mL, IV Push, q6hr Problem list: All ProblemsImpaired skin integrity / SNOMED CT 52111067 / ConfirmedProblem added on documentation of skin impairments.At risk for falls / SNOMED CT 443416073 / PossibleProblem added when Risk for Falls Careplan was initiated.Smoker / IMO 445351 / ConfirmedAdded secondary to documentation in Social History.Resolved: Asthma / SNOMED CT 484535896 Histories Past Medical History: ResolvedAsthma (233424727): Resolved. Family History: AsthmaMother Procedure history: Incision AND drainage (SNOMED CT 041821820) performed by Jose M Patten MD on 10/08/2017 at 27 Years.Comments:10/08/2017 19:32 - Magda RN, Julieta NI AND D AND IRRIGATION LEFT LOWER BACK ABCESS 10 X 15 CMIncision AND drainage (SNOMED CT 355600836).Comments:10/06/2017 06:12 - Philippe Cabezas RN right hand Social History Social & Psychosocial AfcjlvCrgzbji95/26/2017 Risk Assessment: Denies Alcohol UseSubstance Abuse10/05/2017 Risk Assessment: Denies Substance KyrlkNyijoos95/26/2017 Risk Assessment: High Risk10/05/2017 Use: Current Every [...] Delarosa MD on October 08, 2017 08:58 [facility] [id number], [facility], Inpatient, 10/05/2017 - . Condition: Fair. [...] homebound wound VAC. Awaiting precertification by insurance. 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 Canchola, MARY Cuellar, Pharmacist Maryjane, Furniture Mover Driver Damaris, and Dara THOMPSON present. Patient alert and oriented, involved in POC. Discussed medications, labs, and tests. Await Dr. Patten and ID recommendations. Oral Atbx at d/c. No family present at this time. Patient?s goal is to return home with [facility] at discharge. Anticipated discharge yet to be determined, possibly later today. Contact and goal information updated on white board. [facility] Main OR Intraoperative Recor don 10-12-2017 Main OR Intraoperative Record IntraOp Document Type FT Summary Primary Physician: Jose M Patten MD Finalized Date/Time: 10/12/17 11:18:39 Pt. Name: WILLOW WILKES /Sex: 1990 Male Med Rec #: [id number] Physician: Анна Torres M.D. Financial #: [id number] Pt. Type: I Room/Bed: [place] [address] Admit/Disch: 10/05/17 17:35:00 - Institution: Case Times [...] Role Performed Anesthesiologist of Surgeon - Primary Counterintelligence Agent - Primary Record Time In 10/08/17 14:16:00 [...] 6 Case Attendee Kenroy ARANGON, RN, Ben MEDICAL AUDITOR, Junior Downey RN, CNOR, CRNFA, Yoselin ONC, Sharmaine Role Performed Counterintelligence Agent - Other Scrub - Primary Counterintelligence Agent - Other Time In 10/08/17 14:16:00 10/08/17 14:16:00 10/08/17 14:16:00 Time Out 10/08/17 14:46:00 10/08/17 14:46:00 10/08/17 14:46:00 Procedure CYST LESION REMOVAL CYST LESION REMOVAL CYST LESION REMOVAL GENERAL ANES(.) GENERAL ANES(.) GENERAL ANES(.) Comments Last Modified By: Shayan RN, CNOR, CRNFA, Shayan RN, CNOR, CRNFA, Shayan RN, CNOR, CRNFA, ONC, Sharmaine 10/08/17 ONC, Sharmaine 10/08/17 ONC, [facility] 10/08/17 14:46:59 14:46:59 14:46:59 Perioperative Protocols FT [...] Modified By: Shayan THOMPSON, ANTHONYOR, CASSIE, ONC, [facility] 10/08/17 14:19:18 Post-Care Text: The patient received [...] and tissue Entry 1 Skin Integrity Intact, Norco, Warm, and Skin Abnormality Yes Dry Abnormality [...] RN, CNOR, CASSIE, ONC, Sharmaine 10/08/17 ONC, [facility] 10/08/17 ONC, [facility] 10/08/17 14:22:12 14:22:12 14:31:18 Entry 4 Equipment Type MISTRAL FORCED AIR WARMING SYSTEM UNIT[F] Equipment Number M [id number] Equipment Setting Outcomes Met? Yes Last Modified By: Shayan THOMPSON, ANTHONYOR, CASSIE, ONC, [facility] 10/08/17 14:36:01 Post-Care Text: The patient [...] Modified By: Shayan THOMPSON, ANTHONYOR, CASSIE, ONC, [facility] 10/08/17 14:20:45 Post-Care Text: The patient is free from signs and symptoms of injury related to transfer/transport Counts Verification FT Pre-Care Text: Performs required counts Entry 1 Procedure(s) CYST LESION REMOVAL Type Initial GENERAL ANES(.) Items Instruments Status Correct Time 10/08/17 14:18:00 By Junior Contreras CST, Weisenburger BSN, Yoselin THOMPSON Outcomes Met? Yes Last Modified By: Shayan THOMPSON, ANTHONYOR, CASSIE, ONC, [facility] 10/08/17 14:21:19 Post-Care Text: The patient is [...] Modified By: Shayan THOMPSON, ANTHONYOR, CASSIE, ONC, [facility] 10/08/17 14:26:30 Post-Care Text: The patient is [...] RN Patient Status Stable Skin. Condition Intact, Norco, Warm, and Description EXCEPT FOR OPERATIVE Dry [...] RN, CASSIE, LUIS Downey RN, CASSIE, Sharmaine DARLING 10/08/17 Sharmaine DARLING 10/08/17 14:38:26 14:38:26 Post-Care [...] safely administered during the perioperative period For Abdi-Costilla please see scanned medication reconcilliation form for [...] AIR Quantity 1 Aid PLUS LOWER BODY [[id number]][F] Fluid/Hardy Unit Mistral warming system Body Site Lower anterior torso Last Modified By: LUIS Downey RN, CRNFA, ONC, Lucille 10/08/17 14:36:32 Case Comments Finalized By: Vi Ambriz CST Document Signatures Signed By: LUIS Downey RN, CRNFA, ONC, Lucille 10/08/17 14:52 Vi Ambriz CST 10/12/17 11:18 Normal [facility] Progress Note-Physicianon Progress Note-Physician Patient: WILLOW WILKES Age: 27 years Sex: Male : 1990 Associated Diagnoses: None Author: Donald Cyr M.D Subjective Doing better overall since I&D. Culture with MSSA. Health Status Allergies: Allergic Reactions (Selected)No Known Allergies Current medications: Medications (10) ActiveScheduled: (4)ceFAZolin 2 gram 50 mL, IV Piggyback, c6fyqsznobqa sodium 100 mg Cap [F] 100 mg 1 cap(s), Oral, BIDnicotine 14 mg/24 hr Transderm ER Film [F] 14 mg 1 patch(es), TransDermal, DailySodium Chloride 0.9% 500 mL 500 mL, IVContinuous: (1)Lactated Ringers 1,000 mL 1,000 mL, IV, 20 mL/hrPRN: (5)acetaminophen 325 mg Tab UD [F] 650 mg 2 tab(s), Oral, d3cfjseuefxaq 0.083% Inh Mary 3 mL [F] 2.5 mg 3 mL, NEB, g2yiaqoqhygsm CFC free 90 mcg/inh Inh Aer w/Adapt 8.5 gm [F] 180 microgram 2 puff(s), Inhalation, n6dsrxhwtcnc 2 mg/mL preservative-free SOLN [F] 4 mg 2 mL, IV Push, v2ugqhfmnesihmq 2 mg/mL Inj [F] 4 mg 2 mL, IV Push, q6hr Problem list: All ProblemsAt risk for falls / SNOMED CT 933916678 / PossibleProblem added when Risk for Falls Careplan was initiated.Impaired skin integrity / SNOMED CT 55504954 / ConfirmedProblem added on documentation of skin impairments.Smoker / IMO 650507 / ConfirmedAdded secondary to documentation in Social [...] 2-3 weeks. Wound care per surgery.. Normal [facility] Comment on above: Result Comment: Elec tronically [...] (4)ceFAZolin 2 gram 50 mL, IV Piggyback, u4taimhjmpfd sodium 100 mg Cap [F] 100 mg 1 cap(s), Oral, BIDnicotine 14 mg/24 hr Transderm ER Film [F] 14 mg 1 patch(es), TransDermal, DailySodium Chloride 0.9% 500 mL 500 mL, IVContinuous: (1)Lactated Ringers 1,000 mL 1,000 mL, IV, 20 mL/hrPRN: (5)acetaminophen 325 mg Tab UD [F] 650 mg 2 tab(s), Oral, t8qxdvewqviir 0.083% Inh Mary 3 mL [F] 2.5 mg 3 mL, NEB, c6pxtzkwtclfd CFC free 90 mcg/inh Inh Aer w/Adapt 8.5 gm [F] 180 microgram 2 puff(s), Inhalation, t3znibmtqpru 2 mg/mL preservative-free SOLN [F] 4 mg 2 mL, IV Push, k5snrnijwvxgmgq 2 mg/mL Inj [F] 4 mg 2 mL, IV Push, q6hr Problem list: All ProblemsImpaired skin integrity / SNOMED CT 59105276 / ConfirmedProblem added on documentation of skin impairments.At risk for falls / SNOMED CT 179560938 / PossibleProblem added when Risk for Falls Careplan was initiated.Smoker / IMO 073226 / ConfirmedAdded secondary to documentation in Social History.Resolved: Asthma / SNOMED CT 504639449 Histories Past Medical History: ResolvedAsthma (294000497): Resolved. Family History: AsthmaMother Procedure history: Incision AND drainage (SNOMED CT 377374815) performed by Jose M Patten MD on 10/08/2017 at 27 Years.Comments:10/08/2017 19:32 - Magda RN, Julieta IGLESIAS AND Musa AND IRRIGATION LEFT LOWER BACK ABCESS 10 X 15 CMIncision AND drainage (SNOMED CT 063205409).Comments:10/06/2017 06:12 - Raulito THOMPSON, Philippe right hand Social History Social & Psychosocial TzzunjHllakep77/26/2017 Risk Assessment: Denies Alcohol UseSubstance Abuse10/05/2017 Risk Assessment: Denies Substance KpvfrKsfhhzr44/26/2017 Risk Assessment: High Risk10/05/2017 Use: Current Every [...] Delarosa MD on October 08, 2017 08:58 [facility] info: [id number], [facility], Inpatient, 10/05/2017 - . Condition: Fair. [...] soon pending Wound Vac change today. Normal [facility] Comment on above: Result Comment: Elec tronically [...] (4)ceFAZolin 2 gram 50 mL, IV Piggyback, f8rdsxsaprdg sodium 100 mg Cap [F] 100 mg 1 cap(s), Oral, BIDnicotine 14 mg/24 hr Transderm ER Film [F] 14 mg 1 patch(es), TransDermal, DailySodium Chloride 0.9% 500 mL 500 mL, IVContinuous: (1)Lactated Ringers 1,000 mL 1,000 mL, IV, 20 mL/hrPRN: (6)acetaminophen 325 mg Tab UD [F] 650 mg 2 tab(s), Oral, a5rfidujcnetz 0.083% Inh Mary 3 mL [F] 2.5 mg 3 mL, NEB, x5mkilmwtpoln CFC free 90 mcg/inh Inh Aer w/Adapt 8.5 gm [F] 180 microgram 2 puff(s), Inhalation, d9lqypzztfean 30 mg/mL Inj 1 mL [F] 30 mg 1 mL, IV, f1mbcvdxywru 10 mg/mL preservative-free SOLN [F] 4 mg 0.4 mL, IV Push, w7zodiwxhatzidk 2 mg/mL Inj [F] 4 mg 2 mL, IV Push, q6hr Problem list: All ProblemsImpaired skin integrity / SNOMED CT 97004184 / ConfirmedProblem added on documentation of skin impairments.Smoker / IMO 322505 / ConfirmedAdded secondary to documentation in Social History.Resolved: Asthma / SNOMED CT 442939010 Histories Past Medical History: ResolvedAsthma (146699245): Resolved. Family History: AsthmaMother Procedure history: Incision AND drainage (SNOMED CT 605063532) performed by Jose M Patten MD on 10/08/2017 at 27 Years.Comments:10/08/2017 19:32 - Magda RN, Julieta IGLESIAS AND D AND IRRIGATION LEFT LOWER BACK ABCESS 10 X 15 CMIncision AND drainage (SNOMED CT 502919016).Comments:10/06/2017 06:12 - Raulito THOMPSON, Philippe right hand Social History Social & Psychosocial SszoolHkyrdcl41/26/2017 Risk Assessment: Denies Alcohol UseSubstance Abuse10/05/2017 Risk Assessment: Denies Substance LirasYlxsvci47/26/2017 Risk Assessment: High Risk10/05/2017 Use: Current Every [...] Delarosa MD on October 08, 2017 08:58 [facility] info: [id number], [facility], Inpatient, 10/05/2017 - . Condition: Fair. [...] pending Wound Vac change on 10/12/17 Normal [facility] Comment on above: Result Comment: Elec tronically Signed By: Sushant DC, Juan Pablo\.br\Date and Time Signed: 10/11/17 12:43 EST Auto Diffon 10-10-2017 Basophils Auto #/vol (Bld) 0.1 E9/L Normal 0.0-0.2 [facility] Comment on above: Order Comment: Order Added by Margo Expert. Performed By: #### 1 8227514, 6503372, 72696504, 9047472, 80431949, 6753798, 5986127 ####[facility] [address] [place] [address] Basophils Auto #/vol (Bld) 0.9 % Normal 0.0-2.0 [facility] Comment on above: Order Comment: Order Added by Margo Expert. Performed By: #### 1 2874201, 0518853, 02172350, 0897833, 81901570, 0310600, 0340165 ####[facility] [address] [place] [address] Eosinophils 0.7 E9/L High 0.0-0.5 [facility] Comment on above: Order Comment: Order Added by Margo Expert. Performed By: #### 1 0015854, 4755164, 04223991, 4126817, 41770088, 7234924, 7551282 ####[facility] [address] [place] [address] Eosinophils/100 leukocytes 7.4 % Normal 0.0-8.0 [facility] Comment on above: Order Comment: Order Added by Margo Expert. Performed By: #### 1 8385342, 1546532, 08981242, 8093087, 71423524, 2870463, 4773570 ####[address] [place] [address] Lymphocytes 2.4 E9/L Normal 1.0-4.0 [facility] Comment on above: Order Comment: Order Added by Margo Expert. Performed By: #### 1 5850145, 0521942, 46842549, 2945614, 65067180, 6278330, 6782242 ####[facility] [address] [place] [address] Lymphocytes/100 leukocytes 25.6 % Normal 14.0-50.0 [facility] Comment on above: Order Comment: Order Added by Margo Expert. Performed By: #### 1 0425193, 4142089, 99770046, 8662629, 27244739, 5729359, 5793541 ####[facility] [address] [place] [address] Monocytes 0.9 E9/L Normal 0.2-1.0 [facility] Comment on above: Order Comment: Order Added by Discern Expert. Performed By: #### 1 1232711, 6045823, 45462035, 9314737, 90082609, 2314144, 7650683 ####[address] [place] [address] Monocytes/100 leukocytes 9.9 % Normal 4.0-14.0 [facility] Comment on above: Order Comment: Order Added by Margo Expert. Performed By: #### 1 8600098, 3565124, 48342023, 0841657, 36630128, 8048995, 7958668 ####[address] [place] [address] Neutrophils 5.3 E9/L Normal 2.0-7.5 [facility] Comment on above: Order Comment: Order Added by Margo Expert. Performed By: #### 1 6362728, 2611281, 69067424, 9431689, 80338142, 7360102, 9477485 ####[address] [place] [address] Neutrophils/100 leukocytes 56.2 % Normal 36.0-75.0 [facility] Comment on above: Order Comment: Order Added by Discern Expert. Performed By: #### 1 3774526, 6101372, 41655254, 5726663, 13835521, 3512505, 1326529 ####[address] [address] [address] [place] 10-10-2017 Wound Culture MicrobiologyPROCEDUR E: [...] SPerforming LocationsR1: This test was performed at: [facility], [address] [place] [address], [address]- , Normal [facility] Comment on above: Performed By: #### 1 6263147, 0241272, 45625975, 1884299, 47415445, 0976900, 5834120 ####[facility] [address] [place] [address] CBC w/ Auto Diffon Erythrocyte distribution width Auto Ratio (RBC) 13.3 % Normal 10.9-14.2 [facility] Comment on above: Performed By: #### 1 5173400, 4923086, 53763044, 5583958, 10405604, 0152382, 8349572 ####[facility] [address] [place] [address] Erythrocytes (RBC) 3.4 E12/L Low 4.3-5.9 [facility] Comment on above: Performed By: #### 1 0178158, 1337742, 83574474, 9178506, 66611187, 2397532, 4203175 ####[address] [place] [address] Hematocrit (HCT) 31.1 % Low 37.7-49.0 [facility] Comment on above: Performed By: #### 1 0581268, 3653049, 19140975, 7385935, 46305719, 3491631, 8560475 ####[address] [place] [address] Hemoglobin mass conc (Bld) 10.8 g/dL Low 13.5-17.5 [facility] Comment on above: Performed By: #### 1 7630721, 8228345, 17214411, 5643300, 73609448, 9613177, 7387915 ####[facility] [address] [place] [address] MCH 31.9 pg Normal 27.0-34.0 [facility] Comment on above: Performed By: #### 1 9518999, 2746354, 72561018, 1009725, 26382064, 4680026, 0312107 ####[address] [place] [address] MCHC mass conc (RBC) 34.6 g/dL Normal 31.4-39.3 [facility] Comment on above: Performed By: #### 1 1556249, 0942102, 44575885, 0804743, 08387003, 7578492, 6365932 ####[address] [place] [address] MCV 92.1 fL Normal 80.0-100.0 [facility] Comment on above: Performed By: #### 1 0566906, 9587994, 62681039, 9113365, 77123638, 1780204, 6394449 ####[address] [address] Platelet mean volume (PMV) 6.8 fL Normal 6.4-10.8 [facility] Comment on above: Performed By: #### 1 7617040, 8177568, 28341119, 6981391, 35956360, 2180798, 6439498 ####[address] [address] Platelets 497.0 E9/L Normal 150.0-500. 0 [facility] Comment on above: Performed By: #### 1 9791642, 3439624, 61964634, 1662186, 65866605, 0609998, 4921485 ####[address] [place] [address] WBC (Leukocytes) 9.4 E9/L Normal 4.0-11.0 [facility] Comment on above: Result Comment: Slid e reviewed by JAMES. Performed By: #### 1 3118245, 8722745, 21894348, 3838124, 72124918, 5064928, 3960422 ####[facility] [address] [place] [address] Consultation Noteon 10-10-20 Consultation Note HOSPITAL REGULATIONS [...] anesthesia today.Jose M Patten MD, FACSaekDictated: 10/08/2017 #[id number]: 10/09/2017 #[id number]: Alexandre Harding M.D.Jose M Patten MD, FACS [facility] Comment on above: Result Comment: Elec tronically Signed By: Sandor DC, Jose M Camilo\.br\Date and Time Signed: 10/10/17 16:08 EST Interdisciplinary Note - Brett e Manageron 10-10-2017 Interdisciplinary Note - Supervisor [employer] Former Spoke to Dr. Canchola who anticipates pt. to stay till Wednesday. I spoke to pt. regarding [facility] and a home wound vac and he is agreable and understands the homebound status. Referral sent to resource center. [facility] Interdisciplinary Note - Nut ritionon 10-10-2017 [...] this time. PO encouraged. Nutrition POC implemented. [facility] Operative Reporton 7 Operative Report Date [...] I was able to contact the [facility] and they were able to remove the packing and place aWound VAC in the Recovery Room to further aid in healing of this largeabscess cavity. This was all tolerated well by the patient.Jose M Patten MD, FACSglsDictated: 10/08/2017 #[id number]: 10/09/2017 #[id number]: Myra Middleton M.D.Jose M Patten MD, FACS [facility] Comment on above: Result Comment: Elec [...] as bad as it did on Wednesday. [facility] Progress Note-Physicianon Progress Note-Physician Patient: WILLOW [...] (4)ceFAZolin 2 gram 50 mL, IV Piggyback, s9lwnxwwlfnz sodium 100 mg Cap [F] 100 mg 1 cap(s), Oral, BIDnicotine 14 mg/24 hr Transderm ER Film [F] 14 mg 1 patch(es), TransDermal, DailySodium Chloride 0.9% 500 mL 500 mL, IVContinuous: (1)Lactated Ringers 1,000 mL 1,000 mL, IV, 75 mL/hrPRN: (6)acetaminophen 325 mg Tab UD [F] 650 mg 2 tab(s), Oral, x6ljeqnddhdkx 0.083% Inh Mary 3 mL [F] 2.5 mg 3 mL, NEB, u1ogfiuzlhifx CFC free 90 mcg/inh Inh Aer w/Adapt 8.5 gm [F] 180 microgram 2 puff(s), Inhalation, y2evkklyuonco 30 mg/mL Inj 1 mL [F] 30 mg 1 mL, IV, e2mrhkawnoem 10 mg/mL preservative-free SOLN [F] 4 mg 0.4 mL, IV Push, s2wfyxtjczzqdob 2 mg/mL Inj [F] 4 mg 2 mL, IV Push, q6hr Problem list: All ProblemsImpaired skin integrity / SNOMED CT 39481684 / ConfirmedProblem added on documentation of skin impairments.Smoker / IMO 193697 / ConfirmedAdded secondary to documentation in Social History.Resolved: Asthma / SNOMED CT 911896552 Histories Past Medical History: ResolvedAsthma ([id number]): Resolved. Family History: AsthmaMother Procedure history: Incision AND drainage (SNOMED CT 918395380) performed by Jose M Patten MD on 10/08/2017 at 27 Years.Comments:10/08/2017 19:32 - Magda RN, Julieta IGLESIAS AND D AND IRRIGATION LEFT LOWER BACK ABCESS 10 X 15 CMIncision AND drainage (SNOMED CT 953382548).Comments:10/06/2017 06:12 - Philippe Cabezas RN right hand Social History Social & Psychosocial FgdceuCcfvwbf53/26/2017 Risk Assessment: Denies Alcohol UseSubstance Abuse10/05/2017 Risk Assessment: Denies Substance JuwkwHbkiuug71/26/2017 Risk Assessment: High Risk10/05/2017 Use: Current Every [...] Auto 56.2 % Lymph Auto 25.6 % [place] Auto 9.9 % Eos Auto 7.4 % Basophil Auto 0.9 % Neutro Absolute 5.3 E9/L Lymph Absolute 2.4 E9/L [place] Absolute 0.9 E9/L Eos Absolute 0.7 E9/L [...] Delarosa MD on October 08, 2017 08:58 [facility] info: [id number], [facility], Inpatient, 10/05/2017 - . Condition: Fair. [...] and Wound Vac change on 10/12/17 Normal [facility] Comment on above: Result Comment: Elec tronically Signed By: Sushant DC, Juan Pablo\.br\Date and Time Signed: 10/10/17 11:42 EST Auto Diffon 10-09-2017 Basophils Auto #/vol (Bld) 0.1 E9/L Normal 0.0-0.2 [facility] Comment on above: Order Comment: Order Added by Discern Expert. Performed By: #### 1 5252403, 4523080, 90071120, 7396665, 78143164, 9213873, 7703942 ####[facility] [address] [place] [address] Basophils Auto #/vol (Bld) 0.4 % Normal 0.0-2.0 [facility] Comment on above: Order Comment: Order Added by Discern Expert. Performed By: #### 1 3687519, 6924602, 70514897, 6878620, 12055307, 0470001, 6956270 ####[facility] [address] [place] [address] Eosinophils 0.1 E9/L Normal 0.0-0.5 [facility] Comment on above: Order Comment: Order Added by Discern Expert. Performed By: #### 1 8756936, 7011639, 02471759, 5865215, 91680492, 1515950, 3254357 ####[facility] [address] [place] [address] Eosinophils/100 leukocytes 0.8 % Normal 0.0-8.0 [facility] Comment on above: Order Comment: Order Added by Discern Expert. Performed By: #### 1 4320280, 3894385, 71357334, 5385316, 46242377, 6196654, 9581156 ####[facility] [address] [place] [address] Lymphocytes 1.3 E9/L Normal 1.0-4.0 [facility] Comment on above: Order Comment: Order Added by Margo Expert. Performed By: #### 1 0141690, 1412641, 53359762, 5141997, 30050282, 6030960, 5665706 ####[facility] [address] [place] [address] Lymphocytes/100 leukocytes 8.2 % Low 14.0-50.0 [facility] Comment on above: Order Comment: Order Added by Margo Expert. Performed By: #### 1 4442011, 9103919, 99351899, 8380356, 83310536, 6619326, 1356401 ####[facility] [address] [place] [address] Monocytes 1.2 E9/L High 0.2-1.0 [facility] Comment on above: Order Comment: Order Added by Margo Expert. Performed By: #### 1 3291701, 3385291, 65228086, 4538495, 92497420, 3047601, 0784343 ####[facility] [address] [place] [address] Monocytes/100 leukocytes 8.0 % Normal 4.0-14.0 [facility] Comment on above: Order Comment: Order Added by Margo Expert. Performed By: #### 1 8657793, 5769267, 34780675, 0008683, 21251751, 5822466, 5209429 ####[facility] [address] [place] [address] Neutrophils 12.7 E9/L High 2.0-7.5 [facility] Comment on above: Order Comment: Order Added by Margo Expert. Performed By: #### 1 4826332, 1312872, 51187481, 9645421, 92608523, 1200037, 6754514 ####[facility] [address] [place] [address] Neutrophils/100 leukocytes 82.6 % High 36.0-75.0 [facility] Comment on above: Order Comment: Order Added by Margo Expert. Performed By: #### 1 0017507, 1173803, 56188358, 7907244, 89983718, 4851896, 9788456 ####[address] [place] [address] CBC w/ Auto Diffon Erythrocyte distribution width Auto Ratio (RBC) 13.2 % Normal 10.9-14.2 [facility] Comment on above: Performed By: #### 1 7386048, 0069625, 68800427, 3621498, 07049449, 2015016, 0294097 ####[address] [place] [address] Erythrocytes (RBC) 3.6 E12/L Low 4.3-5.9 [facility] Comment on above: Performed By: #### 1 8032331, 2857212, 90770235, 9945411, 08332664, 4601303, 6367099 ####[place] [address] Hematocrit (HCT) 32.3 % Low 37.7-49.0 [facility] Comment on above: Performed By: #### 1 7442612, 5186407, 28520001, 3932314, 56759802, 7277413, 9270370 ####[address] [place] [address] Hemoglobin mass conc (Bld) 11.0 g/dL Low 13.5-17.5 [facility] Comment on above: Performed By: #### 1 6981218, 1635462, 42349483, 1516920, 80671349, 6844992, 8595629 ####[address] [place] [address] MCH 31.0 pg Normal 27.0-34.0 [facility] Comment on above: Performed By: #### 1 4835290, 1178430, 94148518, 5974060, 72739584, 2822440, 9403140 ####[place] [address] MCHC mass conc (RBC) 34.1 g/dL Normal 31.4-39.3 [facility] Comment on above: Performed By: #### 1 0653391, 6480308, 63020320, 6833398, 96346674, 0472760, 5157378 ####[facility] [address] [place] [address] MCV 91.0 fL Normal 80.0-100.0 [facility] Comment on above: Performed By: #### 1 1823986, 5071037, 70283607, 7609317, 70155090, 8658411, 2297425 ####[facility] [address] [place] [address] Platelet mean volume (PMV) 7.1 fL Normal 6.4-10.8 [facility] Comment on above: Performed By: #### 1 9845483, 3577197, 78427623, 2246597, 47315127, 9675533, 8579704 ####[facility] [address] [place] [address] Platelets 429.0 E9/L Normal 150.0-500. 0 [facility] Comment on above: Performed By: #### 1 7082389, 3057537, 87820157, 0700978, 56351984, 5745575, 3744082 ####[facility] [address] [place] [address] WBC (Leukocytes) 15.4 E9/L High 4.0-11.0 [facility] Comment on above: Result Comment: Slid e reviewed by AC. Performed By: #### 1 9320764, 9556199, 76466556, 2289058, 89754621, 1309558, 6373635 ####[facility] [address] [place] [address] Progress Note-Physicianon Progress Note-Physician Patient: WILLOW WILKES Age: 27 years Sex: Male : 1990 Associated Diagnoses: None Author: Sushant DC, [facility] Basic Information 27-year-old male with no significant [...] mL 493 mg 0.99 EA, IV Piggyback, z42pekssjoepi 14 mg/24 hr Transderm ER Film [F] 14 mg 1 patch(es), TransDermal, Dailypiperacillin-tazobactam 3 g-0.375 g 3.375 gram 1 EA, IV Piggyback, a3jxUvpdvslvhx: (1)Lactated Ringers 1,000 mL 1,000 mL, IV, 75 mL/hrPRN: (6)acetaminophen 325 mg Tab UD [F] 650 mg 2 tab(s), Oral, z2bxqlrskuspz 0.083% Inh Mary 3 mL [F] 2.5 mg 3 mL, NEB, q7vspfbjrtgqv CFC free 90 mcg/inh Inh Aer w/Adapt 8.5 gm [F] 180 microgram 2 puff(s), Inhalation, i7abvjpesjyks 30 mg/mL Inj 1 mL [F] 30 mg 1 mL, IV, j3dmahqypewd 10 mg/mL preservative-free SOLN [F] 4 mg 0.4 mL, IV Push, i2cxeukkobhmuuz 2 mg/mL Inj [F] 4 mg 2 mL, IV Push, q6hr Problem list: All ProblemsImpaired skin integrity / SNOMED CT 06305999 / ConfirmedProblem added on documentation of skin impairments.Smoker / IMO [id number] / ConfirmedAdded secondary to documentation in Social History.Resolved: Asthma / SNOMED CT 214207696 Histories Past Medical History: ResolvedAsthma ([id number]): Resolved. Family History: AsthmaMother Procedure history: Incision AND drainage (SNOMED CT 176277457) performed by Jose M Patten MD on 10/08/2017 at 27 Years.Comments:10/08/2017 19:32 - Magda RN, Julieta NI AND D AND IRRIGATION LEFT LOWER BACK ABCESS 10 X 15 CMIncision AND drainage (SNOMED CT 898813233).Comments:10/06/2017 06:12 - Raulito THOMPSON, Philippe right hand Social History Social & Psychosocial YoraqsKanhmyx19/26/2017 Risk Assessment: Denies Alcohol UseSubstance Abuse10/05/2017 Risk Assessment: Denies Substance HjwrcJeymsul68/26/2017 Risk Assessment: High Risk10/05/2017 Use: Current Every [...] % HI Lymph Auto 8.2 % LOW [place] Auto 8.0 % Eos Auto 0.8 % Basophil Auto 0.4 % Neutro Absolute 12.7 E9/L HI Lymph Absolute 1.3 E9/L [place] Absolute 1.2 E9/L HI Eos Absolute 0.1 [...] Delarosa MD on October 08, 2017 08:58 [facility] info: [id number][facility] 10[facility]2017 - . Condition: Fair. Impression [...] result and Wound Vac change on 10/12/17 [facility] Comment on above: Result Comment: Elec [...] care per Wound Clinic.Will follow as needed. [facility] Comment on above: Result Comment: Elec tronically Signed By: Sandor DC, Jose M Camilo\.br\Date and Time Signed: 10/09/17 07:53 EST Vanco Troughon 10-09-2017 VANCOMYCIN <4 Low 10-20 [facility] Comment on above: Result Comment: Resu lts verified by dilution. Performed By: #### 1 7153450, 1717191, 46976519, 8090365, 67332733, 5231947, 3372468 ####[facility] [address] [place] [address] Dino 10-08-2017 Alanine aminotransferase (ALT) 63 Int._Unit/L High 6-46 [facility] Comment on above: Performed By: #### 1 6502438, 1309783, 42136915, 3120062, 95905975, 0734564, 2826514 ####[facility] [address] [place] [address] Navid 10-08-2017 Aspartate aminotransferase (AST) 37 Int._Unit/L Normal 5-43 [facility] Comment on above: Performed By: #### 1 3253830, 6938215, 75766574, 2963529, 85147704, 1423065, 7430742 ####[address] [place] [address] Auto Diffon 10-08-2017 Basophils Auto #/vol (Bld) 0.1 E9/L Normal 0.0-0.2 [facility] Comment on above: Order Comment: Order added by Discern Expert. Performed By: #### 1 8371560, 7880304, 42861277, 0648770, 57658655, 9489795, 2900856 ####[address] [address] Basophils Auto #/vol (Bld) 0.5 % Normal 0.0-2.0 [facility] Comment on above: Order Comment: Order added by Discern Expert. Performed By: #### 1 6759403, 0915087, 72629244, 0333969, 43265717, 9386294, 7075946 ####[address] [address] Eosinophils 0.9 E9/L High 0.0-0.5 [facility] Comment on above: Order Comment: Order added by Discern Expert. Performed By: #### 1 7319368, 0847802, 97680243, 5237030, 48004640, 8032396, 9127875 ####[address] [address] Eosinophils/100 leukocytes 5.6 % Normal 0.0-8.0 [facility] Comment on above: Order Comment: Order added by Discern Expert. Performed By: #### 1 2782374, 0202879, 81660013, 1263541, 97148491, 8984539, 7572253 ####[address] [place] [address] Lymphocytes 1.5 E9/L Normal 1.0-4.0 [facility] Comment on above: Order Comment: Order added by Discern Expert. Performed By: #### 1 9080638, 8622242, 46953149, 2353204, 64803326, 3964798, 9503466 ####[address] [place] [address] Lymphocytes/100 leukocytes 9.3 % Low 14.0-50.0 [facility] Comment on above: Order Comment: Order added by Discern Expert. Performed By: #### 1 7750131, 5435345, 76683675, 8630550, 39004553, 7484650, 9196386 ####[address] [place] [address] Monocytes 1.9 E9/L High 0.2-1.0 [facility] Comment on above: Order Comment: Order added by Margo Expert. Performed By: #### 1 4030617, 1746810, 39363388, 3679795, 73536965, 8991084, 3850776 ####[address] [address] Monocytes/100 leukocytes 12.0 % Normal 4.0-14.0 [facility] Comment on above: Order Comment: Order added by Margo Expert. Performed By: #### 1 7409678, 0804692, 80792234, 2865345, 73196624, 2259210, 5430448 ####[address] [place] [address] Neutrophils 11.5 E9/L High 2.0-7.5 [facility] Comment on above: Order Comment: Order added by Margo Expert. Performed By: #### 1 0398089, 5221625, 95364289, 2811844, 54533904, 9480382, 8128299 ####[address] [place] [address] Neutrophils/100 leukocytes 72.6 % Normal 36.0-75.0 [facility] Comment on above: Order Comment: Order added by Margo Expert. Performed By: #### 1 4548010, 0712665, 37934612, 6122856, 53577304, 1019652, 9070033 ####[address] [place] [address] BMPon 10-08-2017 Anion gap 9 mmol/L Normal 6-16 [facility] Comment on above: Performed By: #### 1 5730723, 4811368, 42306913, 0347362, 13860261, 9030690, 3300575 ####[facility] [address] [place] [address] BUN/Creatinine Ratio 9 No Units Low 10-20 [facility] Comment on above: Performed By: #### 1 7969278, 7547717, 88217308, 6514352, 95796675, 1297693, 4066569 ####[facility] [address] [place] [address] Calcium 8.2 mg/dL Low 8.9-11.1 [facility] Comment on above: Performed By: #### 1 8673435, 7802209, 29980218, 5383930, 93296615, 0540188, 7771665 ####[facility] [address] [place] [address] Chloride 103 mmol/L Normal 101-111 [facility] Comment on above: Performed By: #### 1 2386938, 9750417, 18478207, 6763655, 52162385, 7499927, 3859260 ####[facility] [address] [place] [address] CO2 28 mmol/L Normal 21-31 [facility] Comment on above: Performed By: #### 1 6185227, 4369704, 32655225, 1148220, 64247204, 7558880, 0134726 ####[facility] [address] [place] [address] Creatinine 0.8 mg/dL Normal 0.5-1.3 [facility] Comment on above: Performed By: #### 1 3391074, 6308516, 87867075, 9485066, 31933075, 4006513, 0144025 ####[facility] [address] [place] [address] Glucose mass conc 98 mg/dL Normal 55-199 [facility] Comment on above: Result Comment: If t his glucose result represents a fasting glucose, interpretation should refer to the following reference range: 55-99 mg/dL Performed By: #### 1 9680977, 1612577, 58857421, 1642163, 33385010, 6957112, 3617452 ####[facility] [address] [place] [address] Potassium molar conc 4.0 mmol/L Normal 3.5-5.3 [facility] Comment on above: Performed By: #### 1 8591216, 0813905, 21623004, 1748355, 80759849, 8275068, 5495796 ####[facility] [address] [place] [address] Sodium 136 mmol/L Normal 135-145 [facility] Comment on above: Performed By: #### 1 3655192, 0480692, 73077120, 2232977, 42335663, 9988500, 5363656 ####[facility] [address] [place] [address] Urea nitrogen 7 mg/dL Normal 5-21 [facility] Comment on above: Performed By: #### 1 7454796, 7522407, 42497267, 8409600, 92682103, 8521379, 5190311 ####[facility] [address] [place] [address] CBC w/ Auto Diffon 7 Erythrocyte distribution width Auto Ratio (RBC) 13.4 % Normal 10.9-14.2 [facility] Comment on above: Performed By: #### 1 4007274, 6758757, 07745737, 3444781, 81416342, 4334800, 0523558 ####[facility] [address] [place] [address] Erythrocytes (RBC) 3.7 E12/L Low 4.3-5.9 [facility] Comment on above: Performed By: #### 1 9100656, 1867037, 91271325, 5356119, 86804173, 9802775, 5094703 ####[address] [place] [address] Hematocrit (HCT) 34.5 % Low 37.7-49.0 [facility] Comment on above: Performed By: #### 1 4932424, 0582590, 68930654, 2137745, 90377597, 0442496, 4097128 ####[address] [place] [address] Hemoglobin mass conc (Bld) 12.1 g/dL Low 13.5-17.5 [facility] Comment on above: Performed By: #### 1 6493868, 1988697, 44517927, 4289952, 05116828, 3408716, 1484178 ####[place] [address] MCH 32.3 pg Normal 27.0-34.0 [facility] Comment on above: Performed By: #### 1 1500772, 7592831, 59360322, 6426214, 41715752, 4368587, 2113858 ####[address] [place] [address]257 MCHC mass conc (RBC) 34.9 g/dL Normal 31.4-39.3 [facility] Comment on above: Performed By: #### 1 8303169, 1959477, 72324362, 5140495, 53793807, 3539663, 2685504 ####[address] [address] [place] [address]257 MCV 92.4 fL Normal 80.0-100.0 [facility] Comment on above: Performed By: #### 1 0001172, 9385742, 22054386, 5660736, 63505816, 8998010, 3942942 ####[address] [place] [address] Platelet mean volume (PMV) 6.6 fL Normal 6.4-10.8 [facility] Comment on above: Performed By: #### 1 6023141, 8897986, 26698762, 1830143, 53179454, 0263354, 8433947 ####[facility] [address] [place] [address] Platelets 342.0 E9/L Normal 150.0-500. 0 [facility] Comment on above: Performed By: #### 1 0409253, 7653586, 79281837, 1491237, 30254073, 5262384, 0875773 ####[facility] [address] [place] [address] WBC (Leukocytes) 15.9 E9/L High 4.0-11.0 [facility] Comment on above: Performed By: #### 1 8743482, 9734911, 94893387, 5828082, 62054262, 5959196, 1710048 ####[facility] [address] [place] [address] Consultation Noteon 10-08-20 17 Consultation Note Patient: Alexx WILKES Age: 27 years Sex: Male : 1990 Associated Diagnoses: None Author: Donald Cyr M.D Chief Complaint 10/05/2017 18:24 EST pain in mid back to hip. ongoing X2 weeks. was seen in [place] [facility] [place] but was told it was just muscle spasms. xray and urin were obtained in [place]. History of Present Illness Patient with back [...] g 3.375 gram 1 EA, IV Piggyback, a3ayfbnkymstud + Sodium Chloride 0.9% 500 mL 2 gram 2 EA, IV Piggyback, z57kmIqyzochrci: (2)Lactated Ringers 1,000 mL 1,000 mL, IV, 125 mL/hrSodium Chloride 0.9% 2,190 mL 2,190 mL, IV, 999 mL/hrPRN: (6)acetaminophen 325 mg Tab UD [F] 650 mg 2 tab(s), Oral, f1kxmjpesuqwr 0.083% Inh Mary 3 mL [F] 2.5 mg 3 mL, NEB, e3uppdrylvbpz CFC free 90 mcg/inh Inh Aer w/Adapt 8.5 gm [F] 180 microgram 2 puff(s), Inhalation, v2ftptvaspdye 30 mg/mL Inj 1 mL [F] 30 mg 1 mL, IV, b3xxzxqlljny 10 mg/mL preservative-free SOLN [F] 4 mg 0.4 mL, IV Push, p8mjmaxhzghtant 2 mg/mL Inj [F] 4 mg 2 mL, IV Push, q6hr Problem list: All ProblemsImpaired skin integrity / SNOMED CT 14685548 / ConfirmedProblem added on documentation of skin impairments.Smoker / IMO [id number] / ConfirmedAdded secondary to documentation in Social History. Histories Past Medical History: ResolvedAsthma ([id number]): Resolved. Family History: AsthmaMother Procedure history: Incision AND drainage (985607454).Comments:10/06/2017 06:12 - Raulito THOMPSON, Philipep right hand Physical Examination Vital Signs 10/08/2017 [...] to see patient. Already consulted. . Normal [facility] Comment on above: Result Comment: Elec tronically [...] hip. ongoing X2 weeks. was seen in [place] but was told it was just muscle spasms. xray and urin were obtained in [place]. . History of Present Illness The patient [...] The patient stated he was seen at [place] [facility] on and he was diagnosed with muscle strain. The patient denies any IV drug abuse or any other associated symptoms. Review of Systems Additional review of systems information: All other systems reviewed and otherwise negative. Health Status Allergies: Allergic Reactions (Selected)No Known Allergies. Past Medical/ Family/ Social History Medical history: ResolvedAsthma ([id number]): Resolved.. Surgical history: No active procedure history [...] E9/L HI Lymph Abs Man 1.0 E9/L [place] Abs Man 2.6 E9/L HI Eos Abs [...] by teleradiology shows extensive subcutaneous soft tissue edema/applications scientist was change throughout the back and flank [...] and Plan Diagnosis Cellulitis of lower back (LKR39-YN L03.312, Discharge, Medical) Phlegmonous cellulitis (ZIW72-CN L02.91, Discharge, Medical) Hyponatremia (ZAS63-CJ E87.1, Discharge, Medical) Elevated liver enzymes (NTN80-HX R74.8, Discharge, Medical) Plan Condition: Improved, Stable. Disposition: Admit time 10/06/17 01:35:00, Admit to Inpatient Telemetry Unit, Luis F Benavides DO Counseled: Patient, Family, Regarding diagnosis, Regarding diagnostic results, Regarding treatment plan. Normal [facility] [place] [facility] Comment on above: Result Comment: Elec tronically Signed By: Melissa Mcfadden, Анна Nicole\.br\Date and Time Signed: 10/08/17 09:28 EST Interdisciplinary Note - Brett e Manageron 10-08-2017 Interdisciplinary Note - Supervisor Toy [employer] Former Rounding with Dr. Canchola, Marisa [facility], Shelton [facility], Marcelino RN. Whiteboard updated. No [...] anticipated dc in a few days. Normal [facility] Interdisciplinary Note - Soc ial Workeron 10-08-2017 Interdisciplinary Note - Glass Mould Cleaner Consult received late this afternoon to order wound vac. SW spoke to CRM who will be following this weekend about need for wound vac as this SW is not familiar with how to order this as this is usually completed by wound care. SW will remain available. Normal [facility] Main OR PACU I Recordon 09-11 Main OR PACU I Record PACU Phase I Document Type FT Summary Primary Physician: Jose M Patten MD Finalized Date/Time: 10/08/17 17:18:48 Pt. Name: WILLOW WLIKES/Sex: 1990 Male Med Rec #: [id number] Physician: Анна Torres M.D. Financial #: [id number] Pt. Type: I Room/Bed: [place] [address] Admit/Disch: 10/05/17 17:35:00 - Institution: Case Times [...] Signed By: Aixa Wolfe RN 10/08/17 17:18 [facility] Progress Note-Physicianon Progress Note-Physician Patient: WILLOW [...] discharged from PACU when criteria met. Normal [facility] Comment on above: Result Comment: Elec tronically [...] mL 493 mg 0.99 EA, IV Piggyback, x31xzcndaugbvzkxp-xpnlsrtiaw 3 g-0.375 g 3.375 gram 1 EA, IV Piggyback, o4gqFkhmqsuxor: (1)Lactated Ringers 1,000 mL 1,000 mL, IV, 125 mL/hrPRN: (6)acetaminophen 325 mg Tab UD [F] 650 mg 2 tab(s), Oral, j4oubrijmwjvh 0.083% Inh Mary 3 mL [F] 2.5 mg 3 mL, NEB, m4ccccoibajns CFC free 90 mcg/inh Inh Aer w/Adapt 8.5 gm [F] 180 microgram 2 puff(s), Inhalation, w0invqzdtajad 30 mg/mL Inj 1 mL [F] 30 mg 1 mL, IV, z0creunqqgiv 10 mg/mL preservative-free SOLN [F] 4 mg 0.4 mL, IV Push, f0bipffvncvjrht 2 mg/mL Inj [F] 4 mg 2 mL, IV Push, q6hr Problem list: All ProblemsImpaired skin integrity / SNOMED CT 27061287 / ConfirmedProblem added on documentation of skin impairments.Smoker / IMO [id number] / ConfirmedAdded secondary to documentation in Social History.Resolved: Asthma / SNOMED CT 755100423, Active Problems (2)Impaired skin integrity Smoker Histories Past Medical History: ResolvedAsthma ([id number]): Resolved. Family History: AsthmaMother Procedure history: Incision AND drainage ([id number]).Comments:10/06/2017 06:12 - Philippe Cabezas RN right hand Social History Social & Psychosocial KhmhcxPpyjznn97/26/2017 Risk Assessment: Denies Alcohol UseSubstance Abuse10/05/2017 Risk Assessment: Denies Substance GesgyHgxvggs61/26/2017 Risk Assessment: High Risk10/05/2017 Use: Current Every [...] are non-labored. Cardiovascular: Regular rhythm. Integumentary: Warm, Norco. Neurologic: Alert, Oriented. Review / Management Results review: Lab results 10/08/2017 06:19 EST WBC 15.9 E9/L HI RBC 3.7 E12/L LOW Hgb 12.1 gm/dL LOW Hct 34.5 % LOW MCV 92.4 fL MCH 32.3 pg MCHC 34.9 gm/dL RDW 13.4 % Platelet 342.0 E9/L MPV 6.6 fL Neutro Auto 72.6 % Lymph Auto 9.3 % LOW [place] Auto 12.0 % Eos Auto 5.6 % Basophil Auto 0.5 % Neutro Absolute 11.5 E9/L HI Lymph Absolute 1.5 E9/L [place] Absolute 1.9 E9/L HI Eos Absolute 0.9 [...] E9/L HI Lymph Abs Man 2.6 E9/L [place] Abs Man 1.4 E9/L HI Eos Abs [...] benefits, alternatives discussed. Questions answered. . Normal [facility] Comment on above: Result Comment: Elec tronically [...] mL 493 mg 0.99 EA, IV Piggyback, z78tqalxakotvhzzf-dmamuyamjc 3 g-0.375 g 3.375 gram 1 EA, IV Piggyback, j2mbMruhmntbfn: (2)Lactated Ringers 1,000 mL 1,000 mL, IV, 125 mL/hrSodium Chloride 0.9% 2,190 mL 2,190 mL, IV, 999 mL/hrPRN: (6)acetaminophen 325 mg Tab UD [F] 650 mg 2 tab(s), Oral, j7orxutgdeijw 0.083% Inh Mary 3 mL [F] 2.5 mg 3 mL, NEB, y1bekwinmkokz CFC free 90 mcg/inh Inh Aer w/Adapt 8.5 gm [F] 180 microgram 2 puff(s), Inhalation, d1vfcyqbqwdqd 30 mg/mL Inj 1 mL [F] 30 mg 1 mL, IV, r5lgzcloaeti 10 mg/mL preservative-free SOLN [F] 4 mg 0.4 mL, IV Push, w6wrrsrruowqgyj 2 mg/mL Inj [F] 4 mg 2 mL, IV Push, q6hr Problem list: All ProblemsImpaired skin integrity / SNOMED CT 84872119 / ConfirmedProblem added on documentation of skin impairments.Smoker / IMO [id number] / ConfirmedAdded secondary to documentation in Social History. Histories Past Medical History: ResolvedAsthma ([id number]): Resolved. Family History: AsthmaMother Procedure history: Incision AND drainage (SNOMED CT 384420271).Comments:10/06/2017 06:12 - Philippe Cabezas RN right hand Social History Social & Psychosocial DoybckHjjkocr20/26/2017 Risk Assessment: Denies Alcohol UseSubstance Abuse10/05/2017 Risk Assessment: Denies Substance ArgyfHjgwkkd21/26/2017 Risk Assessment: High Risk10/05/2017 Use: Current Every [...] 72.6 % Lymph Auto 9.3 % LOW [place] Auto 12.0 % Eos Auto 5.6 % Basophil Auto 0.5 % Neutro Absolute 11.5 E9/L HI Lymph Absolute 1.5 E9/L [place] Absolute 1.9 E9/L HI Eos Absolute 0.9 [...] on October 08, 2017 08:58 ESTEncounter info: [id number], Jin George, Inpatient, 10/05/2017 - . Condition: [...] D and deep tissue culture result. Normal [facility] Comment on above: Result Comment: Elec tronically [...] MD Transcribed by: JENNIFFER Technologist: BRIT Normal [facility] eGFRon 10-08-2017 eGFR (black) mL/min/{1.73_m2} Normal >=59 [facility] Comment on above: Order Comment: Order added by Discern Expert. Result Comment: eGFR is race adjusted. AA=. Performed By: #### 1 9289337, 7869893, 00183093, 2738643, 33359170, 3414470, 1919053 ####[facility] [address] [place] [address] eGFR (non-black) mL/min/{1.73_m2} Normal >=59 [facility] Comment on above: Order Comment: Order added by Discern Expert. Result Comment: Export Specialist curt kidney disease could be indicated at eGFR's of less than 60 mL/min/1.73m2. Kidney failure is indicated at less than 15 mL/min/1.73m2. Performed By: #### 1 0195712, 5602624, 57813272, 5377705, 28452774, 7654940, 8793955 ####[facility] [address] [place] [address] .Manual Abson 10-07-2017 BASOPHILS/LEUKOCYT ES:NFR.DF:PT:BLD:Q N:MANUAL COUNT 0.0 E9/L Normal 0.0-0.2 [facility] Comment on above: Performed By: #### 1 9294048, 4480685, 30535815, 8405276, 26515258, 9726801, 3410857 ####[facility] [address] [place] [address] EOSINOPHILS/LEUKOC YTES:NFR.DF:PT:BLD :QN:MANUAL COUNT 1.0 E9/L High 0.0-0.5 [facility] Comment on above: Performed By: #### 1 7736255, 7190635, 39823955, 6997581, 83296254, 4103686, 2613557 ####[facility] [address] [place] [address] LYMPHOCYTES/LEUKOC YTES:NFR.DF:PT:BLD :QN:MANUAL COUNT 2.6 E9/L Normal 1.0-4.0 [facility] Comment on above: Performed By: #### 1 7271349, 0284946, 78250932, 5446934, 95887031, 5613221, 9206088 ####[address] [address] MONOCYTES/LEUKOCYT ES:NFR.DF:PT:BLD:Q N:MANUAL COUNT 1.4 E9/L High 0.2-1.0 [facility] Comment on above: Performed By: #### 1 5342105, 3032991, 69091421, 4973528, 54540488, 1426504, 8462040 ####[address] [address] Neutrophils 12.4 E9/L High 2.0-7.5 [facility] Comment on above: Performed By: #### 1 9215365, 4965255, 82461808, 1889679, 71915927, 4288050, 0838572 ####[place] [address] [place] [address] Dino 10-07-2017 Alanine aminotransferase (ALT) 65 Int._Unit/L High 6-46 [facility] Comment on above: Performed By: #### 1 3189452, 9374822, 60876006, 9602974, 87613308, 8291963, 6894429 ####[address] [address] [place] [address] Navid 10-07-2017 Aspartate aminotransferase (AST) 45 Int._Unit/L High 5-43 [facility] Comment on above: Performed By: #### 1 2401159, 3033792, 56276419, 5301918, 26524605, 1177635, 0461980 ####[facility] [address] [place] [address] Alk Phoson 10-07-2017 Alkaline phosphatase (ALP) 185 Int._Unit/L High 21-98 [facility] Comment on above: Performed By: #### 1 5366555, 4014768, 45765824, 8777905, 25874280, 0760731, 5941619 ####[facility] [address] [place] [address] BMPon 10-07-2017 Anion gap 10 mmol/L Normal 6-16 [facility] Comment on above: Order Comment: to be drawn all together at 7:30-8:00 per nurse Performed By: #### 1 2754384, 9081181, 43745578, 1192699, 21490517, 5365396, 3506925 ####[facility] [address] [place] [address] BUN/Creatinine Ratio 10 No Units Normal 10-20 [facility] Comment on above: Order Comment: to be drawn all together at 7:30-8:00 per nurse Performed By: #### 1 4672645, 8847024, 37362127, 0167490, 87933065, 9658396, 0873182 ####[facility] [address] [place] [address] Calcium 7.9 mg/dL Low 8.9-11.1 [facility] Comment on above: Order Comment: to be drawn all together at 7:30-8:00 per nurse Performed By: #### 1 3980065, 7778427, 86699272, 2755962, 11945527, 7112919, 5638676 ####[facility] [address] [place] [address] Chloride 102 mmol/L Normal 101-111 [facility] Comment on above: Order Comment: to be drawn all together at 7:30-8:00 per nurse Performed By: #### 1 0673351, 5405887, 55962881, 4556373, 68470306, 1873372, 8632723 ####[facility] [address] [place] [address] CO2 25 mmol/L Normal 21-31 [facility] Comment on above: Order Comment: to be drawn all together at 7:30-8:00 per nurse Performed By: #### 1 9060400, 5754531, 13601745, 5390457, 47621826, 1791947, 3676098 ####[facility] [address] [place] [address] Creatinine 0.8 mg/dL Normal 0.5-1.3 [facility] Comment on above: Order Comment: to be drawn all together at 7:30-8:00 per nurse Performed By: #### 1 9121508, 0922642, 58783375, 6340321, 67993112, 1448212, 8192714 ####[facility] [address] [place] [address] Glucose mass conc 94 mg/dL Normal 55-199 [facility] Comment on above: Order Comment: to be drawn all together at 7:30-8:00 per nurse Result Comment: If t his glucose result represents a fasting glucose, interpretation should refer to the following reference range: 55-99 mg/dL Performed By: #### 1 4915802, 3914478, 23962812, 9004229, 11864630, 0658082, 5169892 ####[facility] [address] [place] [address] Potassium molar conc 3.5 mmol/L Normal 3.5-5.3 [facility] Comment on above: Order Comment: to be drawn all together at 7:30-8:00 per nurse Performed By: #### 1 4104736, 6202553, 59508297, 0461397, 28846899, 8328936, 3398098 ####[facility] [address] [place] [address] Sodium 133 mmol/L Low 135-145 [facility] Comment on above: Order Comment: to be drawn all together at 7:30-8:00 per nurse Performed By: #### 1 0443002, 3450427, 43244244, 2168683, 03739462, 3678842, 0811672 ####[facility] [address] [place] [address] Urea nitrogen 8 mg/dL Normal 5-21 [facility] Comment on above: Order Comment: to be drawn all together at 7:30-8:00 per nurse Performed By: #### 1 5707329, 1481088, 10658959, 9998555, 89861209, 1804056, 9715677 ####[facility] [address] [place] [address] CBC w/ Auto Diffon Erythrocyte distribution width Auto Ratio (RBC) 13.3 % Normal 10.9-14.2 [facility] Comment on above: Performed By: #### 1 8045667, 7463848, 65364143, 3431520, 58743594, 8897806, 8156638 ####[facility] [address] [place] [address] Erythrocytes (RBC) 3.7 E12/L Low 4.3-5.9 [facility] Comment on above: Performed By: #### 1 3304432, 3461735, 68934984, 3989396, 27434040, 3542260, 4854906 ####[facility] [address] [place] [address] Hematocrit (HCT) 34.2 % Low 37.7-49.0 [facility] Comment on above: Performed By: #### 1 8947345, 8579196, 08345089, 1902196, 78535423, 2329294, 8731264 ####[facility] [address] [place] [address] Hemoglobin mass conc (Bld) 11.5 g/dL Low 13.5-17.5 [facility] Comment on above: Performed By: #### 1 5900650, 6567013, 44268709, 7757679, 10731101, 9940193, 8732079 ####[facility] [address] [place] [address] MCH 31.0 pg Normal 27.0-34.0 [facility] Comment on above: Performed By: #### 1 9988498, 7629185, 60705326, 9434545, 53337072, 7939907, 9011338 ####[address] [place] [address] MCHC mass conc (RBC) 33.7 g/dL Normal 31.4-39.3 [facility] Comment on above: Performed By: #### 1 2337532, 8841562, 97085787, 1971005, 30208283, 3027699, 2430350 ####[place] [address] MCV 92.2 fL Normal 80.0-100.0 [facility] Comment on above: Performed By: #### 1 4234979, 0196925, 04792143, 6072296, 57065071, 3365955, 5326406 ####[place] [address] Platelet mean volume (PMV) 7.0 fL Normal 6.4-10.8 [facility] Comment on above: Performed By: #### 1 8513677, 0079343, 68891719, 3314575, 04055972, 4143304, 6427869 ####[address] [place] [address] Platelets 323.0 E9/L Normal 150.0-500. 0 [facility] Comment on above: Performed By: #### 1 4958574, 7212616, 87901140, 7685357, 97868549, 0581187, 1040171 ####[address] [place] [address] WBC (Leukocytes) 19.7 E9/L High 4.0-11.0 [facility] Comment on above: Performed By: #### 1 7969267, 9629752, 47756205, 9547316, 52830640, 3711890, 7951225 ####[facility] [address] [place] [address] Coding Queryon 10-07-2017 Coding Query -From: Yissel [...] in addition to fever. thank you. Normal [facility] Interdisciplinary Note - Brett e Manageron 10-07-2017 Interdisciplinary Note - Supervisor Toy [employer] Former Rounding with Dr. Davidson, Marisa [facility], Trey [facility], Maryann RN. Whiteboard updated. No family present. Dr. Cyr to see tomorrow. Pt. in isolation. Pt. aware of plan to stay today and Dr. Cyr to see tomorrow. Normal [facility] Manual Diffon 10-07-2017 BASOPHILS:NCNC:PT: BLD:QN:MANUAL COUNT 0 % Normal 0-2 [facility] Comment on above: Order Comment: Order Added by Margo Expert. Performed By: #### 1 6546909, 2098285, 57668141, 0764846, 25963024, 0125332, 0341503 ####[facility] [address] [place] [address] Blood morphology Normal Normal [facility] Comment on above: Order Comment: Order Added by Discern Expert. Performed By: #### 1 2714435, 8614753, 69048967, 3368796, 09297592, 1868947, 2218505 ####[address] [place] [address] DOHLE BODY:PRTHR:PT:BLD: ORD:MICROSCOPY.LIG HT Present Normal [facility] Comment on above: Order Comment: Order Added by Margo Expert. Performed By: #### 1 7041545, 6303223, 35324991, 2339154, 68044501, 0710832, 6095027 ####[facility] [address] [place] [address] EOSINOPHILS:NCNC:P T:BLD:QN:MANUAL COUNT 5 % Normal 0-8 [facility] Comment on above: Order Comment: Order Added by Margo Expert. Performed By: #### 1 4145549, 3207400, 27539098, 9956325, 74653770, 9125166, 4737132 ####[facility] [address] [place] [address] LYMPHOCYTES:NCNC:P T:BLD:QN:MANUAL COUNT 13 % Low 14-50 [facility] Comment on above: Order Comment: Order Added by Margo Expert. Performed By: #### 1 0375237, 4739504, 80339618, 4161377, 45929161, 0771697, 9175167 ####[facility] [address] [place] [address] MONOCYTES:NCNC:PT: BLD:QN:MANUAL COUNT 7 % Normal 4-14 [facility] Comment on above: Order Comment: Order Added by Margo Expert. Performed By: #### 1 0650895, 0650654, 78362142, 0859096, 18460516, 4751361, 1215249 ####[facility] [address] [facility] [place] [address] Neutrophils band/100 leukocytes 12 % High 0-10 [facility] Comment on above: Order Comment: Order Added by Discern Expert. Performed By: #### 1 5877173, 6730140, 55635846, 3650895, 03774036, 6940606, 6105769 ####[facility] [address] [place] [address] NEUTROPHILS.SEGMEN RENETTA:NCNC:PT:BLD:QN :MANUAL COUNT 63 % Normal 36-75 [facility] Comment on above: Order Comment: Order Added by Margo Expert. Performed By: #### 1 7224359, 3096635, 49967548, 0602962, 26664969, 6797479, 9787980 ####[facility] [address] [place] [address] PLATELETS.LARGE:VT THR:PT:BLD:ORD:LARISA ROSCOPY.LIGHT Present Normal [facility] Comment on above: Order Comment: Order Added by Margo Expert. Performed By: #### 1 4094606, 5549592, 89021626, 8187868, 40307970, 3094869, 6766623 ####[facility] [address] [place] [address] Toxic Gran Present Normal [facility] Comment on above: Order Comment: Order Added by Margo Expert. Performed By: #### 1 7839401, 4194978, 62022270, 7730425, 43845284, 8676414, 0761127 ####[facility] [address] [place] [address] Progress Note-Physicianon Progress Note-Physician Patient: WILLOW WILKES [...] g 3.375 gram 1 EA, IV Piggyback, r9leayexrzavxe + Sodium Chloride 0.9% 500 mL 2 gram 2 EA, IV Piggyback, e52rjZeklzzpojx: (2)Sodium Chloride 0.9% 1,000 mL 1,000 mL, IV, 125 mL/hrSodium Chloride 0.9% 2,190 mL 2,190 mL, IV, 999 mL/hrPRN: (6)acetaminophen 325 mg Tab UD [F] 650 mg 2 tab(s), Oral, e2qbvrwjiylqr 0.083% Inh Mary 3 mL [F] 2.5 mg 3 mL, NEB, g8imlwdwwpeas CFC free 90 mcg/inh Inh Aer w/Adapt 8.5 gm [F] 180 microgram 2 puff(s), Inhalation, m4trsqafuyfyt 30 mg/mL Inj 1 mL [F] 30 mg 1 mL, IV, v3rshsasstwy 10 mg/mL preservative-free SOLN [F] 2 mg 0.2 mL, IV Push, v0dgrbfstzkhopf 2 mg/mL Inj [F] 4 mg 2 mL, IV Push, q6hr Problem list: All ProblemsImpaired skin integrity / SNOMED CT 52024483 / ConfirmedProblem added on documentation of skin impairments.Smoker / IMO 238300 / ConfirmedAdded secondary to documentation in Social [...] E9/L HI Lymph Abs Man 2.6 E9/L [place] Abs Man 1.4 E9/L HI Eos Abs [...] officially consult surgery for possible I&D Normal [facility] Comment on above: Result Comment: Elec tronically Signed By: Jesse Davidson DO\.br\Date and Time Signed: 10/07/17 16:33 EST Vanco Troughon 10-07-2017 VANCOMYCIN 13 microgram/mL Normal 10-20 [facility] Comment on above: Performed By: #### 1 1978901, 2429611, 85135250, 4711180, 77057325, 0017697, 2899484 ####[facility] [address] [place] [address] eGFRon 10-07-2017 eGFR (black) mL/min/{1.73_m2} Normal >=59 [facility] Comment on above: Order Comment: Order added by Discern Expert. Result Comment: eGFR is race adjusted. AA=. Performed By: #### 1 6710853, 6341966, 48700318, 2265976, 85575890, 2942779, 8443365 ####[facility] [address] [place] [address] eGFR (non-black) mL/min/{1.73_m2} Normal >=59 [facility] Comment on above: Order Comment: Order added by Discern Expert. Result Comment: Export Specialist curt kidney disease could be indicated at eGFR's of less than 60 mL/min/1.73m2. Kidney failure is indicated at less than 15 mL/min/1.73m2. Performed By: #### 1 0526225, 5939547, 85516916, 6048212, 84622183, 7619645, 8263640 ####[facility] [address] [place] [address] .Manual Abson 10-06-2017 BASOPHILS/LEUKOCYT ES:NFR.DF:PT:BLD:Q N:MANUAL COUNT 0.0 E9/L Normal 0.0-0.2 [facility] Comment on above: Performed By: #### 1 9261366, 2085546, 47996147, 7416373, 05591643, 8425931, 9672083 ####[address] [place] [address] EOSINOPHILS/LEUKOC YTES:NFR.DF:PT:BLD :QN:MANUAL COUNT 0.0 E9/L Normal 0.0-0.5 [facility] Comment on above: Performed By: #### 1 0826676, 1561482, 32607288, 2657991, 77717433, 1724052, 7632090 ####[address] [address] LYMPHOCYTES/LEUKOC YTES:NFR.DF:PT:BLD :QN:MANUAL COUNT 1.0 E9/L Normal 1.0-4.0 [facility] Comment on above: Performed By: #### 1 7571703, 6216510, 70563659, 8544771, 76172449, 3218506, 0163666 ####[address] [address] MONOCYTES/LEUKOCYT ES:NFR.DF:PT:BLD:Q N:MANUAL COUNT 2.6 E9/L High 0.2-1.0 [facility] Comment on above: Performed By: #### 1 6957208, 7027546, 09517096, 2753410, 32443874, 7698043, 8585151 ####[address] [address] Neutrophils 15.4 E9/L High 2.0-7.5 [facility] Comment on above: Performed By: #### 1 6045332, 4607662, 75994135, 7317366, 41071710, 4782731, 2706486 ####[address] [place] [address] CBC w/ Auto Diffon Erythrocyte distribution width Auto Ratio (RBC) 13.4 % Normal 10.9-14.2 [facility] Comment on above: Performed By: #### 1 4491730, 7379285, 91691993, 0952852, 64420796, 3896596, 1798597 ####[address] [place] [address] Erythrocytes (RBC) 4.1 E12/L Low 4.3-5.9 [facility] Comment on above: Performed By: #### 1 8007404, 8973349, 82551816, 3448931, 72157624, 7541059, 4160744 ####[address] [place] [address] Hematocrit (HCT) 37.7 % Normal 37.7-49.0 [facility] Comment on above: Performed By: #### 1 9775850, 4661335, 01143908, 4315731, 94051878, 0041849, 3102068 ####[address] [place] [address] Hemoglobin mass conc (Bld) 13.0 g/dL Low 13.5-17.5 [facility] Comment on above: Performed By: #### 1 1563222, 1415914, 77890631, 0422831, 65847948, 8643720, 5606315 ####[address] [place] [address] MCH 31.6 pg Normal 27.0-34.0 [facility] Comment on above: Performed By: #### 1 5229280, 8070346, 92411513, 8938296, 51544214, 0982106, 8905954 ####[address] [place] [address] MCHC mass conc (RBC) 34.5 g/dL Normal 31.4-39.3 [facility] Comment on above: Performed By: #### 1 3467321, 6916110, 16840115, 9808938, 85035482, 2925789, 1978887 ####[facility] [address] [place] [address] MCV 91.5 fL Normal 80.0-100.0 [facility] Comment on above: Performed By: #### 1 9216566, 9210835, 79920905, 9466465, 76394894, 2030668, 0580421 ####[address] [address] Platelet mean volume (PMV) 7.7 fL Normal 6.4-10.8 [facility] Comment on above: Performed By: #### 1 6184870, 6791241, 39109756, 6683723, 28887496, 6339107, 3786685 ####[address] [address] Platelets 309.0 E9/L Normal 150.0-500. 0 [facility] Comment on above: Performed By: #### 1 0108180, 1101390, 13061298, 4850144, 23929980, 6981031, 3640724 ####[address] [address] WBC (Leukocytes) 19.7 E9/L High 4.0-11.0 [facility] Comment on above: Performed By: #### 1 4403066, 6277827, 40170687, 3780989, 89368932, 6196384, 0347451 ####[address] [address] CMPon 10-06-2017 Alanine aminotransferase (ALT) 61 Int._Unit/L High 6-46 [facility] Comment on above: Performed By: #### 1 7785024, 7122615, 60271605, 8417414, 01139128, 4385554, 0782401 ####[address] [address] Albumin 0.7 g/dL Low 1.1-2.2 [facility] Comment on above: Performed By: #### 1 8979792, 9607351, 22337516, 1027915, 33595818, 5529462, 0123629 ####[facility] [address] [place] [address] Albumin 2.8 g/dL Low 3.3-5.0 [facility] Comment on above: Performed By: #### 1 5304939, 5872158, 16974304, 0703332, 76491645, 7495123, 3957577 ####[facility] [address] [place] [address] Alkaline phosphatase (ALP) 147 Int._Unit/L High 21-98 [facility] Comment on above: Performed By: #### 1 4524484, 2754839, 66379040, 6149801, 85502978, 4904580, 5845700 ####[facility] [address] [place] [address] Anion gap 13 mmol/L Normal 6-16 [facility] Comment on above: Performed By: #### 1 2198093, 0602741, 44054015, 3306292, 28517264, 1900073, 2085747 ####[facility] [address] [place] [address] Aspartate aminotransferase (AST) 49 Int._Unit/L High 5-43 [facility] Comment on above: Performed By: #### 1 1557761, 0026100, 30532890, 0749241, 46596259, 5473073, 6224739 ####[facility] [address] [place] [address] Bilirubin (total) 1.0 mg/dL Normal 0.0-1.1 [facility] Comment on above: Performed By: #### 1 6189919, 5314426, 16561289, 1727601, 53424709, 3206548, 7993459 ####[facility] [address] [place] [address] BUN/Creatinine Ratio 14 No Units Normal 10-20 [facility] Comment on above: Performed By: #### 1 2047335, 8997566, 04417670, 2685504, 20593570, 7648349, 9062464 ####[facility] [address] [place] [address] Calcium 8.5 mg/dL Low 8.9-11.1 [facility] Comment on above: Performed By: #### 1 9403078, 2443101, 65378216, 0842060, 05610879, 1746024, 7404229 ####[facility] [address] [place] [address] Chloride 93 mmol/L Low 101-111 [facility] Comment on above: Performed By: #### 1 9030705, 0291224, 75414378, 6692787, 51182623, 2520052, 9473738 ####[facility] [address] [place] [address] CO2 25 mmol/L Normal 21-31 [facility] Comment on above: Performed By: #### 1 1418126, 5988357, 86400057, 9131363, 37480026, 1585381, 6661499 ####[facility] [address] [place] [address] Creatinine 0.9 mg/dL Normal 0.5-1.3 [facility] Comment on above: Performed By: #### 1 7431949, 3206059, 35820580, 1396906, 30665379, 4267112, 1723275 ####[facility] [address] [place] [address] Globulin 3.8 g/dL Normal 1.4-4.0 [facility] Comment on above: Performed By: #### 1 9934236, 2166194, 99136213, 0099082, 50585784, 9980991, 4294867 ####[facility] [address] [place] [address] Glucose mass conc 107 mg/dL Normal 55-199 [facility] Comment on above: Result Comment: If t his glucose result represents a fasting glucose, interpretation should refer to the following reference range: 55-99 mg/dL Performed By: #### 1 5261885, 6252591, 28747579, 2271921, 14478467, 7433788, 1690244 ####[facility] [address] [place] [address] Potassium molar conc 4.1 mmol/L Normal 3.5-5.3 [facility] Comment on above: Performed By: #### 1 6046560, 6773628, 45519761, 3065726, 45122023, 8624089, 8296629 ####[facility] [address] [place] [address] Protein 6.6 g/dL Normal 6.0-7.8 [facility] Comment on above: Performed By: #### 1 4039522, 6398127, 56346296, 0410170, 42233993, 3790970, 2696127 ####[facility] [address] [place] [address] Sodium 127 mmol/L Low 135-145 [facility] Comment on above: Performed By: #### 1 2145986, 9625310, 80106789, 7572659, 68710578, 8415680, 3972486 ####[facility] [address] [place] [address] Urea nitrogen 13 mg/dL Normal 5-21 [facility] Comment on above: Performed By: #### 1 4890335, 0065659, 60915708, 0349025, 31087673, 8883588, 2773019 ####[facility] [address] [place] [address] ED Clinical Summaryon 2016 ED Clinical Summary [id number] ED Clinical SummaryPerson Information Name: Juan Carlos WILKES/Carlos_Brent Age: 27 Years : 1990 12:00 AM Sex: Male Language:Eritrean PCP: Myra Middleton MD Marital Status:Single Visit [...] AM Patient Care Request 10/06/2017 4:41 AM ADDRESS:[address] [place] [id number] [facility] DOC NOTES: MEDICAL INFORMATION: Prescriptions Given:PATIENT EDUCATION INFORMATION: Instructions: Follow up:DIAGNOSIS: Normal [facility] ED Patient Education Noteon 10-06-2017 ED Patient Education Note Patient Education Materials Follows: Normal [facility] ED Patient Summaryon 017 ED Patient Summary (Inserted Image. La ble to display) [place] [id number] Patient Discharge Instructions Person Information Name: WILLOW WILKES Age: 27 Years Date: 10/05/2017 5:35 PMDischarge Diagnosis: Primary Care Physician: Myra Middleton MD Provider InformationPrimary Provider: Анна Torres M.D.silucina Entry Level Java Developer:None The exam and treatment you received in the Emergency Department were for an urgent problem and are not intended as complete care. It is important that you follow up with a doctor, nurse practitioner, or physician?s biology research assistant for ongoing care. If your symptoms [...] Initial Volume 999.00 mL/hr IV Left Antecubital Poth Sodium Chloride 0.9% intravenous solution 2190.00 mL Initial Volume 999.00 mL/hr IV Left Antecubital Poth Sodium Chloride 0.9% intravenous solution 500.00 mL Initial Volume 999.00 mL/hr IV Left Antecubital Diana Sodium Chloride 0.9% intravenous solution 1000.00 mL Initial Volume 999.00 mL/hr IV Left Antecubital Poth morphine 6.00 mg IV Push Left Antecubital Poth morphine 4.00 mg IV Push Left Antecubital Poth vancomycin 1.50 gram IV Piggyback Left Antecubital Poth piperacillin-tazobactam 3.38 gram IV Piggyback Left Antecubital Diana hydromorphone 1.00 mg IV Push Left Antecubital Diana Medication Information:Comment: Pharmacy Information: Thank you for choosing [facility] Patient Education Materials: Dianna WILKES, RYAN , have received the following patient education materials/instructions and have verbalized understanding: Patient Education Materials: Follow-up Instructions: Prescriptions: Patient Signature Date Clinician/Nurse Signature Date 10/06/17 05:17:22 Normal [facility] History and Physicalon 10-06 History and Physical Patient: WILLOW WILKES Age: 27 years Sex: Male : 1990 Associated Diagnoses: None Author: Jesse Davidson DO Chief Complaint 10/05/2017 18:24 EST pain in mid back to hip. ongoing X2 weeks. was seen in [place] [facility] [place] but was told it was just muscle spasms. xray and urin were obtained in [place]. History of Present Illness 27 Y/O presents [...] g 3.375 gram 1 EA, IV Piggyback, y6pkajkuuhhmam + vancomycin + Sodium Chloride 0.9% 500 mL 1,750 mg, IV Piggyback, z34ovTnllyrjgct: (2)Sodium Chloride 0.9% 1,000 mL 1,000 mL, IV, 125 mL/hrSodium Chloride 0.9% 2,190 mL 2,190 mL, IV, 999 mL/hrPRN: (2)morphine 2 mg/mL preservative-free SOLN [F] 2 mg 1 mL, IV Push, b2lzzllgsmnddgf 2 mg/mL Inj [F] 4 mg 2 mL, IV Push, q6hr Problem list: All ProblemsSmoker / IMO [id number] / ConfirmedAdded secondary to documentation in Social History., Active Problems (1)Smoker Histories Past Medical History: ResolvedAsthma ([id number]): Resolved. Family History: AsthmaMother Procedure history: Incision AND drainage ([id number]).Comments:10/06/2017 06:12 - Raulito THOMPSON, Philippe right hand Social History Social & Psychosocial QzpczyRnchkxd17/26/2017 Risk Assessment: Denies Alcohol UseSubstance Abuse10/05/2017 Risk Assessment: Denies Substance PtnycAslbaoo62/26/2017 Risk Assessment: High Risk10/05/2017 Use: Current Every [...] E9/L HI Lymph Abs Man 1.0 E9/L [place] Abs Man 2.6 E9/L HI Eos Abs [...] 2 MN's to treat the above Normal [facility] Comment on above: Result Comment: Elec tronically Signed By: Jesse Davidson DO\.br\Date and Time Signed: 10/06/17 12:53 EST Interdisciplinary Note - Brett e Manageron 10-06-2017 Interdisciplinary Note - Supervisor [employer] Former CRM spoke with pt at bedside, white board updated, no family present. Pt states no PCP, list was provided at bedside. Pt understands plan is stay today, continue IV antibiotics, fluids, pain medication. Pt denies needs. Normal [facility] Lactic Acidon 10-06-2017 LACTATE:MCNC:PT:SE R/PLAS:QN: 5.1 mg/dL Normal 4.5-19.8 [facility] Comment on above: Performed By: #### 2 069507 ####[facility] [address] [place] [address] LACTATE:MCNC:PT:SE R/PLAS:QN: 7.7 mg/dL Normal 4.5-19.8 [facility] Comment on above: Performed By: #### 1 5118461, 4286109, 54956367, 0363464, 07258642, 7576895, 0122958 ####[address] [place] [address] Manual Diffon 10-06-2017 BASOPHILS:NCNC:PT: BLD:QN:MANUAL COUNT 0 % Normal 0-2 [facility] Comment on above: Order Comment: Order Added by Discern Expert. Performed By: #### 1 0302992, 9857684, 14472794, 2185615, 67487001, 3489771, 0887942 ####[address] [address] Blood morphology Normal Normal [facility] Comment on above: Order Comment: Order Added by Margo Expert. Performed By: #### 1 8917063, 9855530, 33825352, 2264273, 79514504, 5929396, 9875450 ####[address] [address] EOSINOPHILS:NCNC:P T:BLD:QN:MANUAL COUNT 0 % Normal 0-8 [facility] Comment on above: Order Comment: Order Added by Margo Expert. Performed By: #### 1 4972728, 7978545, 95696172, 0369025, 62483721, 5322774, 9978290 ####[address] [place] [address] LYMPHOCYTES:NCNC:P T:BLD:QN:MANUAL COUNT 5 % Low 14-50 [facility] Comment on above: Order Comment: Order Added by Discern Expert. Performed By: #### 1 3740931, 6641952, 16046962, 1323817, 27827909, 8930491, 4536064 ####[address] [address] MONOCYTES:NCNC:PT: BLD:QN:MANUAL COUNT 13 % Normal 4-14 [facility] Comment on above: Order Comment: Order Added by Margo Expert. Performed By: #### 1 8021939, 9465363, 90365211, 9351665, 66307736, 2960117, 7946737 ####[facility] [address] [place] [address] Neutrophils band/100 leukocytes 4 % Normal 0-10 [facility] Comment on above: Order Comment: Order Added by Discern Expert. Performed By: #### 1 7309879, 6015694, 34581936, 4832988, 62558083, 0679057, 6403390 ####[facility] [address] [place] [address] NEUTROPHILS.SEGMEN RENETTA:NCNC:PT:BLD:QN :MANUAL COUNT 78 % High 36-75 [facility] Comment on above: Order Comment: Order Added by Discern Expert. Performed By: #### 1 3335218, 1769457, 46047975, 3379366, 72851334, 0558384, 2710511 ####[address] [place] [address] PT & PTTon 10-06-2017 aPTT 30.1 second(s) Normal 25.1-36.5 [facility] Comment on above: Result Comment: Hepa rin therapeutic range (represented by Anti-Factor Xa activity of 0.2 - 0.4 U/mL) corresponds to PTT of 53.9 - 87.4 sec. Performed By: #### 1 5434643, 0755216, 58051288, 7293092, 18390018, 9974018, 7864202 ####[facility] [address] [place] [address] INR Coag RelTime (PPP) 1.2 {INR} Invalid Interpretation Code [facility] Comment on above: Result Comment: INR results are specifically intended to assess patients stabilized on long-term Anticoagulation therapy suggested INR?s ?Less Intensive Anticoagulation? 2.0 ? 3.0Conventional Range 3.0 ? 4.5 Performed By: #### 1 4976910, 3263968, 17853523, 2541890, 72154938, 3671207, 2638367 ####[facility] [address] [place] [address] Prothrombin time (PT) Coag time (PPP) 13.3 second(s) High 10.2-12.9 [facility] Comment on above: Performed By: #### 1 4554331, 1125164, 94591066, 6321997, 42867222, 8089857, 1380615 ####[facility] [address] [place] [address] Progress Note-Nurseon 2016 Progress Note-Nurse 2231 - Dr Torres at [email or web address] - Notified Dr. Torres pt requesting more [...] Pt ready to transfer upstairs to room 321S.1617 ----time clarification for last note above Normal [facility] UA With Cult Reflexon 2016 BACTERIA:PRTHR:PT: URINE SED:ORD:MICROSCOPY .LIGHT TRACE Normal Trace [facility] Comment on above: Performed By: #### 1 2941010 ####[facility] [address] [place] [address] Bilirubin Ql (U) Negative Normal Negative [facility] Comment on above: Performed By: #### 1 3852542 ####[address] [place] [address] COLOR:TYPE:PT:URIN E:NOM:AUTO YELLOW Normal Yellow [facility] Comment on above: Performed By: #### 1 6016672 ####[place] [address] Erythrocytes (RBC) 0-3 Normal 0-3 [facility] Comment on above: Performed By: #### 1 4763882 ####[facility] [address] [facility] [place] [address] GLUCOSE:MCNC:PT:UR INE:QN:TEST STRIP Negative Normal Negative [facility] Comment on above: Performed By: #### 1 8786081 ####[facility] [address] [facility] [place] [address] KETONES:MCNC:PT:UR INE:QN:TEST STRIP TRACE Abnormal Negative [facility] Comment on above: Performed By: #### 1 8745383 ####[facility] [address] [place] [address] LEUKOCYTES:PRTHR:P T:URINE:ORD:AUTOMA RENETTA Negative Normal Negative [facility] Comment on above: Performed By: #### 1 7925475 ####[facility] [address] [place] [address], [place] [address] UA Spec Desc Clean Catch Normal [facility] Comment on above: Performed By: #### 1 0267504 ####[facility] [address] [place] [address] Urine, clarity CLEAR Normal Clear [facility] Comment on above: Performed By: #### 1 9986504 ####[facility] [address] [place] [address] Urine, hemoglobin presence Negative Normal Negative [facility] Comment on above: Performed By: #### 1 1485604 ####[facility] [address] [facility], [place] [address] Urine, leukocytes in sedmiment 0-5 Normal 0-5 [facility] Comment on above: Performed By: #### 1 5948891 ####[facility] [address] [place] [address] Urine, mucus presence in sediment TRACE Normal [facility] Comment on above: Performed By: #### 1 4861433 ####[facility] [address] [facility], [place] [address] Urine, nitrite presence Negative Normal Negative [facility] Comment on above: Performed By: #### 1 3212175 ####[facility] [address] [place] [address] Urine, pH 7.0 [pH] Invalid Interpretation Code 5.0-9.0 [facility] Comment on above: Performed By: #### 1 5326536 ####[facility] [address] [place] [address] Urine, protein 1+ Abnormal Negative [facility] Comment on above: Performed By: #### 1 6139201 ####[facility] [address] [place] [address] Urine, specific gravity 1.010 Invalid Interpretation Code 1.005-1.03 0 [facility] Comment on above: Performed By: #### 1 1738658 ####[facility] [address] [place] [address] Urine, squamous cells in sediment 0-2 Normal 0-2 [facility] Comment on above: Performed By: #### 1 8688160 ####[facility] [address] [place] [address] Urine, urobilinogen 1.0 {Aleksandr'U}/dL Normal 0.0-1.0 [facility] Comment on above: Performed By: #### 1 6112638 ####[facility] [address] [place] [address] XR Chest 2 Viewson 7 XR Chest [...] MD Transcribed by: JENNIFFER Technologist: FLOYD Morton [facility] eGFRon 10-06-2017 eGFR (black) mL/min/{1.73_m2} Normal >=59 [facility] Comment on above: Order Comment: Order added by Discern Expert. Result Comment: eGFR is race adjusted. AA=. Performed By: #### 1 1711511, 5730830, 63935520, 8230193, 80590236, 0042577, 4435529 ####[facility] [address] [place] [address] eGFR (non-black) mL/min/{1.73_m2} Normal >=59 [facility] Comment on above: Order Comment: Order added by Discern Expert. Result Comment: Export Specialist curt kidney disease could be indicated at eGFR's of less than 60 mL/min/1.73m2. Kidney failure is indicated at less than 15 mL/min/1.73m2. Performed By: #### 1 4096705, 3728747, 42207010, 4217173, 13231686, 3590928, 9527111 ####[facility] [address] [place] [address] Coding Summaryon 08-17-2017 Coding Summary CODING DATE: [facility] STATUS: Home PAYOR: Medicaid HMO [...] Verma' Revised Date Saved: 06/07/2017 02:49 pm [facility] Coding Summary CODING DATE: [facility] STATUS: Home PAYOR: Medicaid HMO [...] Verma Revised Date Saved: 06/07/2017 02:48 pm [facility] Coding Summaryon 08-12-2017 Coding Summary CODING DATE: [facility] STATUS: Home PAYOR: Medicaid HMO [...] Mira Verma Date Saved: 08/12/2017 12:26 pm [facility] Coding Summary CODING DATE: 017 [facility] STATUS: Home PAYOR: Medicaid HMO [...] Mira Verma Date Saved: 08/12/2017 12:25 pm [facility] ED Clinical Summaryon 2016 ED Clinical Summary [facility] [address] [place] [address] ed Clinical SummaryPERSON INFORMATIONName: WILKES, WILLOW Randolph Age: 27 Years Sex: MALEDOB: [birth year] MRN: Acct#:Visit Reason: Back pain; BACK PAIN Arrival:08/05/17 20:28:00 Discharge: 08/05/17 22:21:00LOS: 000 01:53 Check In: 08/05/17 20:28:00 Checkout:08/05/17 22:21:00Address:[address] [place] [id number]: Provider, NonePROVIDER INFORMATIONProvider Role Assigned UnassignedNeeraj Raphael [...] Radiculopathy; Back Pain, AdultFollow-Up:With: Address: When:ANJU CROCKER [address] [place] [address] Business (1) Within 3 to 5 daysComments:Diagnosis [...] any questions.[facility] Address: When:None Provider Within 3 to 5 daysDIAGNOSIS:Accidental fall; L4-L5 disc bulge; Lumbar back pain with radiculopathy affecting right lower extremityComment: [facility] ED Note - Otheron 08-06-2017 ED Note - Other In patients chart to check if items are scanned in. [Electronically Signed on: 08/06/2017 07:18 EDT] Judy Joe [Verified on: 08/06/2017 07:18 EDT] Mary Ann Joefiny [facility] ED Note-Nursingon 08-06-2017 ED Note-Nursing Pt discharged home. Home care and follow-up instructions given tp pt. Pt verbalized understanding. VS are WNL. PA has spoken tp pt. 1 prescription sent home with pt. 2 prescriptions sent to [facility]. Pt ambulated self to exit. [facility] ED Patient Education Noteon 08-06-2017 ED [...] Document Reviewed: 05/16/2014[employer] Interactive Patient Education ?2015 [employer]Lumbosacral RadiculopathyLumbosacral radiculopathy is a condition that [...] Released: 09/27/2006 Document Revised: 02/11/2016 Document Reviewed: 09/23/2015[employer] Interactive Patient Education ?2016 [email or web address].Back Pain, AdultBack pain is very common in [...] stressful on your back to sit or solar system installer one place for long periods of time. Do not sit, drive, or solar system installer one place for more than 30 minutes [...] as directed by your health care provider. Cxpn-mka-eupfpaj medicines to reduce pain and inflammation are [...] Document Reviewed: 01/29/2015Magaly Interactive Patient Education ?2016 [employer]. Normal [facility] ED Patient Summaryon 08-06-2 017 ED Patient Summary [facility] - Emergency [address] [place] [address] pATIENT DISCHARGE INSTRUCTIONSPatient InformationName: WILLOW WILKES Age: 27 YearsDate of : [birth year]MRN: [id number] For Visit: Back pain; BACK PAINArrival Time: 08/05/17 20:28:00Phone: Primary Care Physician: Provider, NoneAttending Physician: Luis F Hood DOComment:Visit Diagnosis:Diagnoses This Visit Accidental fall (W19.XXXA) Back pain ([id number]) L4-L5 disc bulge (M51.26) Lumbar back pain [...] sign any legal documentsWith: Address: When:ANJU CROCKER [address] [place] [address], [place] [address] Business (1) Within 3 to 5 daysComments:Diagnosis [...] any questions.[facility]criptions [facility] Address: When:None Provider Within 3 to 5 daysMedication Information:The exam and treatment you received today in the [facility] Emergency Department were for an urgent problem and are not intended as complete care. It is important for you to follow up with a doctor, nurse practitioner, or physician?s biology research assistant for ongoing care. If your symptoms [...] of medications post discharge. Please inform your hash slinger/provider of your visit and for further instruction on these medications. Any specific questions regarding your chronic medications and dosages should be discussed with your primary care physician(s) and/or pharmacist. New MedicationsRITE [address], [address] [place] [address] [phone], [phone] (orphenadrine 100 mg oral tablet, extended release) 1 tab(s) Oral 2 times a day as needed pain for 7 Days. Refills: 0.predniSONE (predniSONE 20 mg oral tablet) 2 tab(s) Oral every day for 5 Days. Refills: 0.Printed Prescriptionsacetaminophen-hydr ocodone (London 5 mg-325 mg oral tablet) 1 tab(s) [...] Document Reviewed: 05/16/2014Magaly Interactive Patient Education ?2016 [employer]Lumbosacral RadiculopathyLumbosacral radiculopathy is a condition that [...] Document Reviewed: 09/23/2015Magaly Interactive Patient Education ?2016 [employer].Back Pain, AdultBack pain is very common in [...] stressful on your back to sit or solar system installer one place for long periods of time. Do not sit, drive, or solar system installer one place for more than 30 minutes [...] as directed by your health care provider. Jjkz-zbt-isncjrg medicines to reduce pain and inflammation are [...] Document Reviewed: 01/29/2015Magaly Interactive Patient Education ?2016 [employer]. Viruses or BacteriaWhat?s got you sick?Antibiotics only [...] Antibiotics [place] Department of Health and Human ServicesPeoples Hospitalers for Disease Control and Prevention June 2014 Normal [facility] CT Spine Lumbar w/o Contrast on 08-05-2017 [...] changes. There is mild disc space narrowing khnaF51-M34 to L3-L4. No definite acute fracture or [...] and upon the proximal portion of the B1mxern root on the left, correlate clinically. There [...] ON THE LEFT, CORRELATE CLINICALLY.NILS Phillips #: [id number]: 08/06/2017T: 08/06/2017 Final Dictated by: David Ward MD SDictated DT/TM: 08/06/17 6:48Signed (Electronic Signature): David Ward MD 08/06/17 11:21 aTechnologist: [facility] ED Note - Physicianon 2016 ED Note - Physician Patient: WILLOW WILKES : 27 years Sex: MALE : [birth year]Associated Diagnoses: Lumbar back pain with radiculopathy affecting right lower extremity; Accidental fall; L4-L5 disc bulgeAuthor: Neeraj RaphaelBasic InformationAdditional information: Chief Complaint from Nursing Triage Note : Chief Fxwdlitum12/26/17 20:41 EDT Chief Complaint Lower back pain [...] Social HistoryMedical history:ResolvedModerate persistent asthma with exacerbation ([id number]): Resolved.Pneumonia due to other specified bacteria (34266664): Resolved.Smoker ([id number] [id number]): Resolved.Comments: -Added secondary to documentation in Social History.Pain due to dental caries (39080155): Resolved..Surgical history:Colonoscopy normal ([id number]) in 2015 at 25 Years..Family history:AsthmaMotherSisterGrand father (Maternal)Cancer - unknown originGrandfather (Paternal)FibromyalgiaMotherChr onic coughMother.Social history:Social & Psychosocial KjoeueMsyveap58/06/2016 Risk Assessment: Low Risk Comment: denies - 03/25/2016 14:35 - Leila Chavez LPNEmployment/Deznxr9703/16/2016 Risk Assessment: Low Risk03/25/2016 Status: Employed 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/Kokpvzztepc99/15/2016 Lives with: MotherSubstance Abuse03/16/2016 Risk Assessment: Denies Substance NzyzbNikgujh31/06/2016 Risk Assessment: Low Risk03/24/2017 Type: Cigarettes Comment: [...] mmHg SpO2 98 % Oxygen Therapy Room air.Mpnqfaqmfqcc53/26/17 20:43 EDT Weight Dosing 74.840 kg08/05/17 20:43 [...] the form of prednisone, muscle relaxant, and London. I discussed them that in regards to [...] pain with radiculopathy affecting right lower extremity (BGI26-MK M54.17, Discharge, Medical)L4-L5 disc bulge (PWV84-HN M51.26, Discharge, Medical)Accidental fall (ITJ57-HY W19.XXXA, Discharge, Medical)PlanCondition: Improved, Stable.Disposition: Discharged: Time 08/05/17 21:59:00, to home.Prescriptions: Launch prescriptionsPharmacy:orphenadr ine 100 mg oral tablet, extended release (Prescribe): 100 mg, 1 tab(s), PO, BID, for 7 day(s), PRN: pain, 14 tab(s), 0 Refill(s)predniSONE 20 mg oral tablet (Prescribe): 40 mg, 2 tab(s), PO, Daily, for 5 day(s), 10 tab(s), 0 Refill(s)London 5 mg-325 mg oral tablet (Prescribe): 1 [...] Raphael[Verified on: 08/05/2017 22:28 EDT] Neeraj Raphael [facility] ED Note-Nursingon 08-05-2017 ED Note-Nursing Pt presented to the ER with c/o Lower back. Pt states he slipped on a storage container lid and fell on his back. Pt has h/o lower back pain. Pt is awake and alert. VS are WNL. Lungs clear. Denies SOB, Chest pain, Dizziness, N/V. Respirations are regular, even, unlabored. Pt placed in gown. SALINA at bedside. [facility] Rad - Other Radiology Report on 08-05-2017 Rad - Other Radiology Report [id number] [facility] Coding Summaryon 06-07-2017 Coding Summary CODING DATE: [facility] STATUS: Home PAYOR: Medicaid O ADMIT DX: [...] result in slightly different terminology. Coded By: Duglsa Verma' Date Saved: 06/07/2017 02:49 pm [facility] Coding Summary CODING DATE: 017 [facility] STATUS: Home PAYOR: Medicaid HMO [...] Mira Verma Date Saved: 06/07/2017 02:48 pm [facility] ED Clinical Summaryon 2016 ED Clinical Summary [facility] - Emergency [id number] [place] [id number] ed Clinical SummaryPERSON INFORMATIONName: WILLOW WILKES Age: 26 Years Sex: MALEDOB: [birth year] MRN: Acct#:Visit Reason: Testicular pain; Testicular pain; PELVIC/TESTICULAR PAIN/ X 1 WEEK Arrival:06/01/17 23:15:00 Discharge: 06/02/17 00:17:00LOS: 000 01:02 Check In: 06/01/17 23:15:00 Checkout:06/02/17 00:17:00Address:[address] [place] [address]DOK: Provider, NonePROVIDER INFORMATIONProvider Role Assigned UnassignedVargas Anthony [...] & time 06/01/17 23:24:00.Testicular painHistory of Present Wuhuvmz47-gkjy-app white male presents to the emergency room [...] recently tested negative for STDs. He reports yfyp-jlh-afzyzfg medications have not been helping his pain [...] underwear until this resolves..Impression and PlanDiagnosisLeft epididymitis (USD65-DY N45.1, Discharge, Medical)PlanCondition: Improved.Disposition: Discharged: to home.Prescriptions: [...] & time 06/01/17 23:24:00.Testicular painHistory of Present Fvgxxxs70-ljco-kcp white male presents to the emergency room [...] recently tested negative for STDs. He reports bfkc-exz-pzmuttp medications have not been helping his pain [...] underwear until this resolves..Impression and PlanDiagnosisLeft epididymitis (RTE63-JC N45.1, Discharge, Medical)PlanCondition: Improved.Disposition: Discharged: to home.Prescriptions: [...] on: 06/01/2017 23:41 EDT] Vargas Anthony MD [facility] ED Note-Nursingon 06-02-2017 ED Note-Nursing Discharge and follow -up instructions reviewed with patient, including criteria/conditions for return to ED if necessary. Prescriptions (2 - sent electronically to pt's preferred pharmacy) and medication instructions also reviewed; pt verbalizes understanding of all instructions, offers no questions. Patient without c/o or s/s distress; ambulated out of ED without incidence, gait steady. [facility] ED Patient Education Noteon 06-02-2017 ED [...] responded to other treatments.HOME CARE INSTRUCTIONSMedicines?? Take ynht-kgo-whfohqd and prescription medicines only as told by [...] Document Reviewed: 02/12/2016Magaly Interactive Patient Education ?2016 [employer]. Normal [facility] ED Patient Summaryon 017 ED Patient Summary [facility] - Emergency [address] [place] [address] pATIENT DISCHARGE INSTRUCTIONSPatient InformationName: WILLOW WILKES Age: 26 YearsDate of : [birth year]MRN: [id number] For Visit: Testicular pain; Testicular pain; PELVIC/TESTICULAR PAIN/ X 1 WEEKArrival Time: 06/01/17 23:15:00Phone: Primary Care Physician: Provider, NoneAttending Physician: Vargas Anthony MDComment:Visit Diagnosis:Diagnoses This Visit Left epididymitis (N45.1) Testicular pain ([id number] 042A31) Testicular pain ([id number] 042A31)If you received any narcotics, sedation, or [...] and treatment you received today in the [facility] Emergency Department were for an urgent problem and are not intended as complete care. It is important for you to follow up with a doctor, nurse practitioner, or physician?s biology research assistant for ongoing care. If your symptoms [...] of medications post discharge. Please inform your hash slinger/provider of your visit and for further instruction on these medications. Any specific questions regarding your chronic medications and dosages should be discussed with your primary care physician(s) and/or pharmacist. New MedicationsRITE [address] [phone], [phone] (doxycycline hyclate 100 mg oral capsule) 1 [...] responded to other treatments.HOME CARE INSTRUCTIONSMedicines?? Take nuhz-ckj-rlbfubt and prescription medicines only as told by [...] Document Reviewed: 02/12/2016Magaly Interactive Patient Education ?2016 [employer]. Viruses or BacteriaWhat?s got you sick?Antibiotics only [...] for Disease Control and Prevention June 2014 [facility] Operative Reporton 7 Operative Report MR#: [id number] [facility] Pt. Name: Willow Wilkes Room #: [...] appeared to have healthy granulation tissue present. [place] was usedto minimally undermine the edges of [...] Date Dict: 04/09/2017//Katharine Pak Trans: 04/11/2017 08:21 A/Neil_JN:[id number]/ Normal [facility] Vital Signs Date Time Vital Sign Value Performing Clinician [facility] 06-14-2025 15:08-0400 Body height 171.5 cm Blake Granger MD Work Phone: [facility] 06-14-2025 15:08-0400 Body mass index (BMI) [Ratio] 35.34 kg/m2 Blake Granger MD Work Phone: [facility] 06-14-2025 15:08-0400 Body weight 103.87 kg Blake Granger MD Work Phone: [facility] 06-14-2025 15:08-0400 Diastolic blood pressure 78 mm[Hg] Blake Granger MD Work Phone: [facility] 06-14-2025 15:08-0400 Heart rate 97 /min Blake Granger MD Work Phone: [facility] 06-14-2025 15:08-0400 Respiratory rate 18 /min Blake Granger MD Work Phone: [facility] 06-14-2025 15:08-0400 SaO2% (BldA) [Mass fraction] 98 % Blake Granger MD Work Phone: [facility] 06-14-2025 15:08-0400 Systolic blood pressure 108 mm[Hg] Blake Granger MD Work Phone: [facility] 12-14-2024 14:42-0500 Body mass index (BMI) [Ratio] 34.7 kg/m2 Inez Healy VALVE MACHINE OPERATOR-BRUSH MACHINE SETTER Work Phone: [facility] 12-14-2024 14:42-0500 Body weight 106.59 kg Inez Healy VALVE MACHINE OPERATOR-BRUSH MACHINE SETTER Work Phone: [facility] 12-14-2024 14:42-0500 Diastolic blood pressure 84 mm[Hg] Inez Healy VALVE MACHINE OPERATOR-BRUSH MACHINE SETTER Work Phone: [facility] 12-14-2024 14:42-0500 Heart rate 90 /min Inez Healy VALVE MACHINE OPERATOR-BRUSH MACHINE SETTER Work Phone: [facility] 12-14-2024 14:42-0500 Respiratory rate 18 /min Inez Healy VALVE MACHINE OPERATOR-BRUSH MACHINE SETTER Work Phone: [facility] 12-14-2024 14:42-0500 SaO2% (BldA) [Mass fraction] 99 % Inez Healy VALVE MACHINE OPERATOR-BRUSH MACHINE SETTER Work Phone: [facility] 12-14-2024 14:42-0500 Systolic blood pressure 134 mm[Hg] Inez Healy VALVE MACHINE OPERATOR-BRUSH MACHINE SETTER Work Phone: [facility] 09-22-2024 10:32-0500 Body height 175.3 cm Placido Morales MD Work Phone: [facility] 09-22-2024 10:32-0500 Body mass index (BMI) [Ratio] 35.37 kg/m2 Placido Morales MD Work Phone: [facility] 09-22-2024 10:32-0500 Body temperature 98.1 [degF] Placido Morales MD Work Phone: [facility] 09-22-2024 10:32-0500 Body weight 108.64 kg Placido Morales MD Work Phone: [facility] 09-22-2024 10:32-0500 Diastolic blood pressure 80 mm[Hg] Placido Morales MD Work Phone: [facility] 09-22-2024 10:32-0500 Heart rate 88 /min Placido Morales MD Work Phone: [facility] 09-22-2024 10:32-0500 Respiratory rate 16 /min Placido Morales MD Work Phone: [facility] 09-22-2024 10:32-0500 Systolic blood pressure 130 mm[Hg] Placido Morales MD Work Phone: [facility] Encounters Encounter Date Encounter Type Care Provider Facility Start: 06-18-2025 End: 06-18-2025 Orders Only Blake Granger MD Work Phone: [facility] Comment on above: Testosterone deficie ncy in male (Primary Dx) Start: 06-16-2025 ambulatory [facility] Start: 06-14-2025 End: 06-14-2025 ambulatory [facility] Start: 06-14-2025 Encounter [facility] adult medical examination without abnormal findings [facility] Start: 06-14-2025 End: 06-14-2025 Initial preventive medicine new pt age 18-39yrs Blake Granger MD Work Phone: [facility] Comment on above: Encounter for genera l health examination (Primary Dx); Mild intermittent asthma with acute exacerbation Start: 06-14-2025 End: 06-14-2025 Patient encounter status Blake Granger MD Work Phone: [facility] Work Phone: Start: 04-04-2025 End: 04-04-[address] [facility] Start: 04-04-2025 End: 04-04-2025 Subsequent hospital visit by physician [facility] Comment on above: Family history of se izures Start: 04-04-2025 End: 04-04-2025 ambulatory [facility] Start: 04-04-2025 End: 04-04-2025 Subsequent hospital visit by physician [facility] Comment on above: Family history of se izures Start: 02-13-2025 End: 02-13-2025 Orders Only Junie Zepeda [facility] [place] Start: 12-14-2024 End: 12-14-2024 Office outpatient visit 15 minutes Inez MENDOZA Work Phone: [facility] Comment on above: Fall, initial encoun ter (Primary Dx); Left elbow pain Start: 12-14-2024 End: 12-14-[address] [facility] Start: 09-22-2024 End: 09-22-2024 Transitional care manage srvc 14 day discharge Placido Morales MD Work Phone: [facility] Comment on above: Acute pain of right knee (Primary Dx); Mild intermittent asthma with acute exacerbation Start: 09-22-2024 End: 09-22-2024 ambulatory PLACIDO MORALES [facility] Start: 08-03-2024 End: 08-03-2024 ambulatory DONALD [facility] Start: 08-02-2024 End: 08-02-2024 ambulatory [facility] Start: 08-02-2024 Encounter for preprocedural laboratory examination [facility] Start: 06-22-2024 End: 06-23-2024 Emergency department patient visit [facility] Start: 12-16-2023 End: 12-16-2023 ambulatory JUSTIN ESCOBAR Not Available Start: 05-27-2020 End: 05-28-2020 Patient encounter procedure PLACIDO MORALES Facility:[facility] Start: 04-05-2020 End: 04-06-2020 Patient encounter procedure PLACIDO MORALES Facility:[facility] Start: 03-24-2020 End: 03-25-2020 Patient encounter procedure LITTLE GARCIA Facility: Start: 11-11-2017 End: 11-12-2017 Ambulatory Sammie Pardo Facility:[facility] Start: 10-28-2017 End: 10-29-2017 Ambulatory Sammie Pardo Facility:[facility] Start: 10-06-2017 End: 10-16-2017 Evaluation and management of inpatient Myra~[id number] UNKNOWN [place] Facility:[facility] Start: 08-06-2017 End: 08-12-2017 Ambulatory [...] Start: 04-09-2017 End: 04-10-2017 Ambulatory OVI LANGE Facility:[facility] Procedures Date Procedure Procedure Detail [...] Td Vaccines (3 - Td or Tdap) [facility] Start: 06-18-2026 End: 06-18-2026 Patient encounter procedure 06/18/2026 3:30 PM EDT Office Visit [facility] [address] [place] [phone] Blake Granger MD [address] [place], [place] [id number] [facility] Start: 06-14-2026 Adult BMI Follow Up Plan Adult BMI Follow Up Plan [facility] Start: 06-14-2026 Adult BMI Screening Adult BMI Screen ing [facility] Start: 06-14-2026 Depression Screening Depression Scre ening [facility] Start: 06-14-2026 Tobacco Screening Tobacco Screening [facility] Start: 12-14-2025 Adult BMI Follow Up Plan Adult BMI Follow Up Plan [facility] Start: 12-14-2025 Adult BMI Screening Adult BMI Screen ing [facility] Start: 12-14-2025 Depression Screening Depression Scre ening [facility] Start: 12-14-2025 Tobacco Screening Tobacco Screening [facility] Start: 09-22-2025 Adult BMI Screening Adult BMI Screen ing [facility] Start: 09-22-2025 Depression Screening Depression Scre ening [facility] Start: 09-22-2025 Tobacco Screening Tobacco Screening [facility] Start: 07-18-2025 End: 06-18-2026 Testosterone [Mass/volume] in Serum or Plasma Testosterone Lab Routine Testosterone deficiency in male Expected: 07/18/2025 (Approximate), Expires: 06/18/2026 [facility] Work Phone: Comment on above: Expected: 07/18/2025 (Approximate), Expires: 06/18/2026 Start: 06-11-2025 Influenza vaccination [facility] Start: 05-25-2025 End: 05-25-2025 Patient encounter procedure 05/25/2025 2:30 PM EDT Office Visit [facility] [address] [place] [phone] Blake Granger MD [address] [place] [address] [facility] Start: 05-11-2025 Influenza vaccination Flu vacc ine (Season Ended) [facility] Start: 02-13-2025 End: 05-09-2025 GENETICS STAT SPECIMEN LABEL- REQUIRED FOR INHOUSE GENETIC TESTING GENETICS STAT SPECIMEN LABEL- REQUIRED FOR INHOUSE GENETIC TESTING Lab STAT Family history of seizures Expected: 02/13/2025 (Approximate), Expires: 05/09/2025 [facility] Comment on above: Expected: 02/13/2025 (Approximate), Expires: 05/09/2025 Start: 02-13-2025 End: 05-09-2025 GENOME SEQUENCING - PARENT SAMPLE GENOME SEQUENCING - PARENT SAMPLE Lab Routine Family history of seizures Expected: 02/13/2025 (Approximate), Expires: 05/09/2025 [facility] Work Phone: Comment on above: Expected: 02/13/2025 (Approximate), Expires: 05/09/2025 Start: 12-14-2024 End: 12-14-2025 XR Elbow - left 3 Views X-ray elbow left minimum 3 views Imaging Routine Left elbow pain Expected: 12/14/2024, Expires: 12/14/2025 [facility] Work Phone: Comment on above: Expected: 12/14/2024 , Expires: 12/14/2025 Start: 09-22-2024 End: 09-22-2025 XR Knee - right 3 Views [employer] Work Phone: Comment on above: Expected: 09/22/2024 , Expires: 09/22/2025 Start: 2024 Diabetes screen Diabetes screen [facility] Start: 06-11-2024 COVID-19 Vaccine ( season) COVID-19 Vaccine ( season) [facility] Start: 06-11-2024 Influenza vaccination [facility] Start: 2008 DTaP/Tdap/Td vaccine (1 - Tdap) DTaP/Tdap/Td vaccine (1 - Tdap) [facility] Start: 2008 Hepatitis B Vaccine (1 of 3 - 19+ 3-dose series) Hepatitis B Vaccine (1 of 3 - 19+ 3-dose series) [facility] Start: 2007 Adult BMI Follow Up Plan Adult BMI Follow Up Plan [facility] Start: 2007 Hepatitis C screening Hepatitis C sc reen [facility] Start: 2004 HIV screening HIV screen [facility] Start: 2002 Varicella Vaccine (1 of 2 - 13+ 2-dose series) Varicella Vaccine (1 of 2 - 13+ 2-dose series) [facility] Start: 2001 Depression Screen Depression Screen [facility] Start: 1996 DTaP/Tdap/Td Vaccine (1 - Tdap) DTaP/Tdap/Td Vaccine (1 - Tdap) [facility] Start: 1990 MMR Vaccine (1 of 1 - Standard series) MMR Vaccine (1 of 1 - Standard series) [facility] Start: 1989 Tobacco Counseling Tobacco Counselin g [facility] End: 06-14-2026 CBC W Auto Differential panel - Blood CBC auto differential Lab Routine Encounter for general health examination 1 Occurrences starting 06/14/2025 until 06/14/2026 [facility] [facility] Comment on above: 1 Occurrences starti ng 06/14/2025 until 06/14/2026 End: 06-14-2026 Comprehensive metabolic 2000 panel - Serum or Plasma Comprehensive metabolic panel Lab Routine Encounter for general health examination 1 Occurrences starting 06/14/2025 until 06/14/2026 [facility] Work Phone: Comment on above: 1 Occurrences starti ng 06/14/2025 until 06/14/2026 End: 04-04-2025 GENETICS SPECIMEN LABEL- REQUIRED FOR INHOUSE GENETIC TESTING [facility] Work Phone: Comment on above: ONCE for 1 Occurrenc es starting 04/04/2025 until 04/04/2025 End: 04-06-2025 GENOME SEQUENCING - PARENT SAMPLE [facility] Comment on above: One Time for 1 Occur rences starting 04/06/2025 until 04/06/2025 End: 06-14-2026 Lipid 1996 panel - Serum or Plasma Lipid profile Lab Routine Encounter for general health examination 1 Occurrences starting 06/14/2025 until 06/14/2026 [employer] Comment on above: 1 Occurrences starti ng 06/14/2025 until 06/14/2026 MISCELLANEOUS SENDOU T Sendout to [facility] (Paternal Sample) MISCELLANEOUS SENDOUT Sendout to [facility] for [facility] (Paternal Sample) Lab Routine Family history of seizures 04/04/2025 4:58 PM EDT [facility]: End: 06-14-2026 Testosterone [Mass/volume] in Serum or Plasma Testosterone Lab Routine Encounter for general health examination 1 Occurrences starting 06/14/2025 until 06/14/2026 [employer] Comment on above: 1 Occurrences starti ng 06/14/2025 until 06/14/2026 End: 06-14-2026 Thyroid profile includes TSH FT4 Thyroid profile includes TSH FT4 Lab Routine Encounter for general health examination 1 Occurrences starting 06/14/2025 until 06/14/2026 [employer] Comment on above: 1 Occurrences starti ng 06/14/2025 until 06/14/2026 Immunizations Immunization Date Immunization Notes Care Provider Rose lomax 07-28-2024 tetanus toxoid, redu jose diphtheria toxoid, and acellular pertussis vaccine, adsorbed Placido Morales MD Work Phone: [facility] 05-03-2023 tetanus toxoid, redu jose diphtheria toxoid, and acellular pertussis vaccine, adsorbed Placido Morales MD Work Phone: [facility] 10-08-2004 influenza, seasonal, injectable Placido Morales MD Work Phone: [facility] 10-08-2004 influenza virus vaccine, unspecified formulation Placido Morales MD Work Phone: [facility] 05-27-2001 measles, mumps and rubella virus vaccine Placido Morales MD Work Phone: [facility] Payers Date Payer Category Payer Blue Cross [facility] - [facility] [id number] 2025 Unknown [id number] 2024 Private Health Insurance [id number] 2024 Medicaid [employer] [place] MEDICA[place] Member Subscriber Plan / Payer (Effective 2024-Present) Name: Willow Wilkes Relation to Subscriber: Self Name: Willow Wilkes Payer ID: [id number] (NAIC) Type: Not on file Address: [place] [id number] 2023 Unknown [id number] 2017 Unknown [id number] 1989 Unknown [id number] 2.16.840.1.200112.3.579.2. 593 1989 Unknown [id number] 2.16.840.1.075643.3.579.2. 593 1989 Unknown [id number] 2.16.840.1.197866.3.579.2. 593 1989 Unknown [id number] 2.16.840.1.493504.3.579.2. 1259 1989 Unknown [id number] 2.16.840.1.611628.3.579.2. 93 1989 Unknown [id number] 2.16.840.1.578669.3.579.2. 175 1989 Unknown [id number] 2.16.840.1.311851.3.579.2. 1286 1989 Unknown [id number] 2.16.840.1.830391.3.579.2. 1286 1989 Unknown [id number] 2.16.840.1.478574.3.579.2. 1285 1989 Unknown [id number] 2.16.840.1.228310.3.579.2. 128 1989 Unknown [id number] 2.16.840.1.693746.3.579.2. 1285 1989 Unknown [id number] 2.16.840.1.053623.3.579.2. 1286 1989 Unknown [id number] 2.16.840.1.352691.3.579.2. 1286 1989 Unknown [id number] 2.16.840.1.614832.3.579.2. 1286 1959 Unknown [id number] Social History Date Type Detail Facility Start: 04-09-2023 Tobacco smoking status MDIS Smokes tobacco daily [facility] History of tobacco use Tobacco U se Types Packs/Day Years Used Date Smoking Tobacco: Every Day Vaping/E-cigarettes Smokeless Tobacco: Never [facility] Start: 04-09-2023 End: 08-03-2024 Tobacco use and exposure Smokeless tobacco non-user [facility] Start: 09-22-2024 End: 06-14-2025 Alcoholic beverage intake Ex-drinker (finding) [facility] Start: 2020 End: 10-23-2020 History of Social function [facility] Start: 2020 End: 10-23-2020 Social connection and isolation panel [facility] Do you belong to any clubs or organizations such as holiness groups, unions, fraternal or athletic groups, or school groups? No [facility] How often do you att end meetings of the clubs or organizations you belong to? Not asked [facility] Are you now , , , , never or living with a partner? Never [facility] How hard is it for y ou to pay for the very basics like food, housing, medical care, and heating Somewhat hard [facility] Do you feel stress - tense, restless, nervous, or anxious, or unable to sleep at night because your mind is troubled all the time - these days [OSQ] Not at all [facility] Start: 1989 Sex assigned at Not on file [facility] Start: 11-20-2012 End: 04-27-2016 Sex Male (finding) [facility] Tobacco smoking stat [facility] Tobacco smoking consumption unknown [facility] Start: 08-03-2024 Tobacco smoking status MDIS Never smoked tobacco [facility] Start: 08-03-2024 Alcohol Comment socially [facility] Goals Date Patient Goal Desired Activity /State [...] MD - 06/14/2025 3:00 PM Raphael Healy APRN-BRUSH MACHINE SETTER - 12/14/2024 2:30 PM Hussain Morales MD - 09/22/2024 10:30 AM EST Note Date & Type Note Facility 06-14-2025 History of Presen t illness Narrative [address] [facility] [address] Patient: Willow Wilkes Date of : 1990 [...] ION ROBOTIC BRONCOSCOPY N/A 05/25/2023 Performed by Alciia Ponce DO at [facility] LAPAROSCOPIC APPENDECTOMY N/A 07/07/2021 Performed by Donald Rose DO at [facility] Current Outpatient Medications Medication Sig Dispense [...] BLAKE GRANGER MD documented in this encounter [employer] 12-14-2024 History of Presen t illness Narrative Images from the original note were not included. [address] [facility] [address] SUBJECTIVE: Patient ID: Willow Wilkes is [...] applied: encouragement to exercise. REJI Lay 12/14/24 [id number] documented in this encounter [employer] 09-22-2024 History of Presen t illness Narrative Images from the original note were not included. [address] [place] [address] SUBJECTIVE: Transition of Care Additional Questions/Concerns Requiring PCP Follow-Up: This documentation is being used for Transition of Care purposes: Yes Goal: Patient will demonstrate a safe transition from hospital to home. Diagnosis on Discharge: Discharge Specialty: Pulmonology Name of Discharging Facility: [facility] Date of Facility Discharge: 09/09/24 - 09/12/24 Date of Interactive Contact and Name of Nuclear Officer: Unable to reach patient x 2 Medication [...] Right knee xray documented in this encounter [facility] 09-22-2024 Miscellaneous Notes Addended by: PLACIDO MORALES on: 09/22/2024 10:49 AM Modules accepted: Orders documented in this encounter [facility] 09-22-2024 Note Addended by: PLACIDO BREWSTER on: 09/22/2024 10:49 AM Modules accepted: Orders [facility] Evaluation note Diagnosis Acute pain of right knee- Primary Mild intermittent asthma with acute exacerbation [facility] Fall, initial encounter- Primary Left elbow pain Pain in joint, upper arm [facility] this [facility] Diagnosis Family history of seizures- Primary Family history of other condition [facility] Diagnosis Family history of seizures Family history of other condition documented in this encounter [facility] Diagnosis Encounter for general health examination- Primary Mild intermittent asthma with acute exacerbation [facility] this [facility] Diagnosis Testosterone deficiency in male- Primary [facility] filedocumented in this encounter [facility]* Attachments The following attachments cannot be sent through Care Everywhere. * Joint Pain (Eritrean) [facility] on [facility] documented [facility]ructionsNot on [facility] Purpose Family History No Family [...] section and content) DATE CREATED AUTHOR 04/04/2018 [facility] DATE CREATED AUTHOR AUTHOR'S ORGANIZ ATION 04/05/2018 [facility] DATE CREATED AUTHOR AUTHOR'S ORGANIZ ATION 04/06/2018 [facility] DATE CREATED AUTHOR AUTHOR'S ORGANIZ ATION 06/02/2020 [facility] DATE CREATED AUTHOR AUTHOR'S ORGANIZ ATION 12/17/2023 [facility] DATE CREATED AUTHOR AUTHOR'S ORGANIZ ATION 08/12/2024 [facility] DATE CREATED AUTHOR AUTHOR'S ORGANIZ ATION 04/06/2025 [facility] DATE CREATED AUTHOR AUTHOR'S ORGANIZ ATION 06/16/2025 [facility] DATE CREATED AUTHOR AUTHOR'S ORGANIZ ATION 06/18/2025 [facility] DATE CREATED AUTHOR AUTHOR'S ORGANIZ ATION 06/18/2025 [facility] Reason for Visit (unrecogniz ed section and content) Reason Comments PAVEL Reason Comments Arm Pain Reason Comments Fatigue Annual Exam Care Teams (unrecognized sec tion and content) Diesel Technician Mechanic Relationship Specialty Start Date End Date Placido Morales MD [address] [place] [address] [place] [address] PCP - General Family Medicine 11/28/23 Diesel Technician Mechanic Relationship Specialty Start Date End Date Placido Morales MD [address] [place] [address] [place] [address] PCP - General Family Medicine 11/28/23 Diesel Technician Mechanic Relationship Specialty Start Date End Date Blake Granger MD [address] [place] [address] PCP - General Internal Medicine 06/14/25 Diesel Technician Mechanic Relationship Specialty Start Date End Date Blake Granger MD [address] [place] [address] PCP - General Internal Medicine 06/14/25 FOR [...] BE BASED ON THE PRIMARY CLINICAL RECORDS. [facility] [employer] [facility]. provides no warranty or guarantee of the accuracy or completeness of information in this document.
--- OUTSIDE RECORDS SUMMARY | 2025-07-22 22:04 | XMS_ITS | Encounter Summary ---
Author Organization [employer] Sys tem Address [facility]-[id number] [address] [place] [address] Care Team Providers Care Obstetrical Nurse Name Role Phone Blake Perez MD Primary Care Provider [phone] Encounter Details Date Type Department Care Team (Late st Contact Info) Description 11/04/2020 Telephone [facility] [address] [place] [address] Sanjiv Morales MD [address]. Provider retired 01/09/25 [place], [place] [id number] Social History Tobacco Use Types Packs/Day Years [...] often do you attend chur ch or rastafari services? Never 2020 Do you belong to any clubs o r organizations such as jewish groups, unions, fraternal or athletic groups, or [...] Answer Date Recorded Total Score 0 10/24/2020 [facility] of Occupat ional Health - Occupational Stress [...] EDT Office Visit [facility] [address] [place] [address] Blake Perez MD [address] [place] [address] documented as of this encounter Goals [...] documented as of this encounter Care Teams Obstetrical Nurse Relationship Specialty Start Date End Date Blake Perez MD [address] [place] [address] PCP - General Internal Medicine 06/14/25 documented as of this encounter
--- OUTSIDE RECORDS SUMMARY | 2025-07-22 22:04 | XMS_ITS | Encounter Summary ---
Author Organization [employer] Sys tem Address [facility]-[id number] [address] [place] [address] Care Team Providers Care Dinkey Driver Name Role Phone Blake Perez MD Primary Care Provider [phone] Encounter Details Date Type Department Care Team (Late st Contact Info) Description 07/11/2021 Orders Only [facility] [address] [place] [address] Dimas Velasco MD [address] [facility], [address] [place] [address] Social History Tobacco Use Types Packs/Day Years [...] often do you attend chur ch or religion services? Never 2020 Do you belong to any clubs o r organizations such as episcopalian groups, unions, fraternal or athletic groups, or [...] Answer Date Recorded Total Score 0 10/24/2020 [facility] of Occupat ional Health - Occupational [...] Do you need help finding a [facility] career center and/or a training program? [...] Visit [facility] [address] [place] [address] Blake Perze MD [facility] [place], [place] [phone] documented as of this encounter Goals Goal [...] documented as of this encounter Care Teams Dinkey Driver Relationship Specialty Start Date End Date Blake Perez MD [address] [place] [address] PCP - General Internal Medicine 06/14/25 documented as of this encounter
--- OUTSIDE RECORDS SUMMARY | 2025-07-22 22:04 | XMS_ITS | Encounter Summary ---
Author Organization [employer] Sys tem Address [facility]-[id number] [address] [place] [address] Care Team Providers Care Sticker On Name Role Phone Blake Perez MD Primary Care Provider [phone] Encounter Details Date Type Department Care Team (Late st Contact Info) Description 02/23/2022 Orders Only [facility] [address] [place] [address] Sanjiv Morales MD [address] [place] [address]. Provider retired 01/09/25 [place], [place] [id number] Social History Tobacco Use Types Packs/Day Years [...] often do you attend chur ch or latter-day services? Never 2020 Do you belong to [...] Answer Date Recorded Total Score 0 02/19/2022 [facility] of Occupat ional Health - Occupational Stress [...] Recorded Do you need help finding a [facility] career center and/or a training program? [...] EDT Office Visit [facility] [address] [place] [phone] Blake Perez MD [address] [place] [address] documented as of this encounter Goals Goal [...] documented as of this encounter Care Teams Sticker On Relationship Specialty Start Date End Date Blake Perez MD [address] [place] [address] PCP - General Internal Medicine 06/14/25 documented as of this encounter
--- OUTSIDE RECORDS SUMMARY | 2025-07-22 22:04 | XMS_ITS | Encounter Summary ---
Author Organization [facility] [employer] Sys tem Address [facility]-[id number] [address] [place] [address] Care Team Providers Care Access Clerk Name Role Phone Blake Perez MD Primary Care Provider [phone] Reason for Visit * Reason Onset Date Comments Transition Of Care 09/13/2024 Encounter Details Date Type Department Care Team (Late st Contact Info) Description 09/13/2024 Telephone [facility] [address] [place] [phone] Chelsey Randall, JAY Transition Of Care Social [...] often do you attend chur ch or faith services? Never 2020 Do you belong to [...] Answer Date Recorded Total Score 0 06/05/2024 [facility] - Occupational Stress Questionnaire Answer Date Recorded [...] Recorded Do you need help finding a [employer] career center and/or a training program? No [...] Discharge Specialty: Pulmonology Name of Discharging Facility: [facility] Date of Facility Discharge: 09/09/24 - 09/12/24 Date of Interactive Contact and Name of Picking Supervisor: Unable to reach patient x 2 Medication [...] EDT Office Visit [facility] [address] [place] [address] Blake Perez MD [place] [facility] [place] [address] documented as of this encounter Goals Goal [...] documented as of this encounter Care Teams Access Clerk Relationship Specialty Start Date End Date Blake Perez MD [address] [place] [address] PCP - General Internal Medicine 06/14/25 documented as of this encounter
--- OUTSIDE RECORDS SUMMARY | 2025-07-22 22:04 | XMS_ITS | Encounter Summary ---
Author Organization [employer] Sys tem Address [facility]-[id number] [address] [place] [address] Care Team Providers Care Crane Manager Name Role Phone Blake Perez MD Primary Care Provider [phone] Encounter Details Date Type Department Care Team (Late st Contact Info) Description 09/17/2023 Orders Only [facility] [address] [place] [address] Umu Christy LPN Chronic right [...] often do you attend chur ch or druze services? Never 2020 Do you belong to [...] Answer Date Recorded Total Score 0 08/04/2023 [facility] - Occupational Stress Questionnaire Answer Date [...] Recorded Do you need help finding a [employer] career center and/or a training program? No [...] [facility] [address] [place] [address] Blake Perez MD [address] [place] [address] documented as of this encounter Goals Goal [...] documented as of this encounter Care Teams Crane Manager Relationship Specialty Start Date End Date Blake Perez MD [address] [place] [address] PCP - General Internal Medicine 06/14/25 documented as of this encounter
--- OUTSIDE RECORDS SUMMARY | 2025-07-22 22:04 | XMS_ITS | Encounter Summary ---
Author Organization [employer] Sys tem Address [facility]-[id number] [address] [place] [address] Care Team Providers Care Turning Machine Set Up Operator Name Role Phone Blake Perez MD Primary Care Provider [phone] Encounter Details Date Type Department Care Team (Late st Contact Info) Description 05/14/2021 Telephone [facility] [address] [place] [address] Sanjiv Morales MD [address] [facility]. Provider retired 01/09/25 [place], [place] [phone] Social History Tobacco Use Types Packs/Day Years [...] often do you attend chur ch or mandaeism services? Never 2020 Do you belong to any clubs o r organizations such as presybeterian groups, unions, fraternal or athletic groups, or [...] Answer Date Recorded Total Score 0 10/24/2020 [facility] of Occupat ional Health - Occupational [...] Recorded Do you need help finding a [facility] career center and/or a training [...] EDT Office Visit [facility] [address] [place] [phone] Blake Perez MD [address] [place] [phone] documented as of this encounter Goals Goal [...] documented as of this encounter Care Teams Turning Machine Set Up Operator Relationship Specialty Start Date End Date Blake Perez MD [address] [place] [address] PCP - General Internal Medicine 06/14/25 documented as of this encounter
--- OUTSIDE RECORDS SUMMARY | 2025-07-22 22:04 | XMS_ITS | Encounter Summary ---
Author Organization [employer] Sys tem Address [facility]-[id number] [address] [place] [address] Care Team Providers Care Gas Operator Name Role Phone Blake Perez MD Primary Care Provider [phone] Encounter Details Date Type Department Care Team (Late st Contact Info) Description 02/23/2022 Telephone [facility] [address] [place] [address] Sanjiv Morales MD [address]. Provider retired 01/09/25 [place], [place] [phone] Social History Tobacco Use Types Packs/Day Years [...] often do you attend chur ch or temple services? Never 2020 Do you belong to any clubs o r organizations such as synagogue groups, unions, fraternal or athletic groups, or [...] Recorded Do you need help finding a [facility] career center and/or a training program? [...] Office Visit [facility] [address] [place] [phone] Blake Perez MD [address] [place] [phone] documented as of this encounter Goals Goal [...] documented as of this encounter Care Teams Gas Operator Relationship Specialty Start Date End Date Blake Perez MD [address] [place] [address] PCP - General Internal Medicine 06/14/25 documented as of this encounter
--- OUTSIDE RECORDS SUMMARY | 2025-07-22 22:04 | XMS_ITS | Encounter Summary ---
Author Organization [facility] [employer] Sys tem Address [facility]-[id number] [address] [place] [address] Care Team Providers Care Associate Drafter Name Role Phone Blake Perez MD Primary Care Provider [phone] Reason for Visit * Reason Onset Date Comments Med Refill 09/22/2024 Encounter Details Date Type Department Care Team (Late st Contact Info) Description 09/22/2024 Refill [facility] [address] [place] [phone] Umu Christy LPN Social History Tobacco Use [...] any clubs o r organizations such as scientology groups, unions, fraternal or athletic groups, or [...] Answer Date Recorded Total Score 0 09/22/2024 [facility] [place] [place] of Occupat ional Health - Occupational Stress [...] Recorded Do you need help finding a [facility] career center and/or a training program? [...] Office Visit [facility] [address] [place] [phone] Blake Perez MD [address] [place] [address] documented as of this encounter [...] documented as of this encounter Care Teams Associate Drafter Relationship Specialty Start Date End Date Blake Perez MD [address] [place] [address] PCP - General Internal Medicine 06/14/25 documented as of this encounter
--- OUTSIDE RECORDS SUMMARY | 2025-07-22 22:04 | XMS_ITS | Encounter Summary ---
Author Organization [employer] Sys [employer] Address [facility] [place][id number] [address] [place] [address] Care Team Providers Care Manager User Interface Name Role Phone Blake Perez MD Primary Care Provider [phone] Encounter Details Date Type Department Care Team (Late st Contact Info) Description 2020 Telephone [facility] [address] [place] [address] Sanjiv Morales MD [address] [place] [address]. Provider retired 01/09/25 [place], [place] [phone] Social History Tobacco Use Types Packs/Day Years [...] often do you attend chur ch or restorationism services? Never 2020 Do you belong to any clubs o r organizations such as sabianism groups, unions, fraternal or athletic groups, or [...] Answer Date Recorded PHQ-2 Score 0 02/03/2019 [facility] of Occupat ional Health - Occupational Stress [...] Recorded Do you need help finding a [facility] career center and/or a training program? [...] EDT Office Visit [facility] [address] [place] [phone] Blake Perez MD [address] [place] [address] documented as of this encounter [...] documented as of this encounter Care Teams Manager User Interface Relationship Specialty [place] [address] [place] [address] PCP - General Internal Medicine 06/14/25 documented as of this encounter
--- OUTSIDE RECORDS SUMMARY | 2025-07-22 22:04 | XMS_ITS | Patient Health Record ---
Author Organization [facility] Address [address] [place] [address] Care Team Providers Care Blanking Machine Operator Name Role Phone Sanjiv Morales MD Primary Care Provider Unavail able Julian Bunn Unavailable [phone] Celina Forrest Unavailable [phone] Pedro De La Fuente Unavailable [phone] Mireille Alston Unavailable Results Component Value Reference Range Notes Surgery Scheduling Reviewed date:08/08/2024 11:30:27 AM Interpretation: Performing Lab: Notes/Report: Primary Insurance Company: MEDICAID [employer] Surgeon/Assist: DR. BUNN Surgery Location: [facility] Surgery Date & Time: 08/03/24 2:30PM Hosp arrival time day of: 12:30PM Surgery End Time: 4PM Procedure: RIGHT SMALL FINGER Z ONE 2 FLEXOR TENDON REPAIR, POSSIBLE NERVE REPAIR Diagnosis: RIGHT SMALL FINGER F LEXOR TENDON LACERATION Admission Type: OUT PT Anesthesia Type/CPNB: BLOCK/MAC Bed NO Post-op Appointment Date: 08/16/24 10AM [facility] Latex Allergy NO Shredding Machine Operator: ANNAMARIE History & Physical Appointme nt Date/: 08/02/24 Pre-op labs/Chest Order: CBC,BMP Had or have MRSA/Direct cont act w MRSA pt/HCW NO Had dental problems/Yes-no/type: NO Reason For Referral Reason APPROVED [facility]. .....08/03.......RIGHT SMALL FIGNER ZONE 2 FLEXOR TENDON REPAIR, POSSIBLE NERVE REPAIR Danilo Arenas 08/02/2024 08:07:15 >[id number], [id number] Diagnosis 1 Laceration of flexor tendon of right hand, initial encounter (S66.821A) Referral Organization [facility] Referring Provider First Name Julian Referring Provider Last Name Oni Referring Provider Speciality Orthopedic Surgery Referred Organization [facility] Outpatient Referred Provider Julian Bunn Referred Address [address], [place],[id number] Referred Provider Specialty Orthopedic S urgery Procedure 1 Repair or advancemen t, flexor tendon, in zone 2 digital flexor tendon sheath (eg, [place]); primary, (21920) Procedure 2 Repair of digital ne rve (67383) General Notes Annamarie Leon 07:52:17 AM >, Mei Mistry 08/02/2024 07:55:23 AM > req codesFidelia Tammy 08/02/2024 08:27:21 AM >Danilo Arenas 08/02/2024 08:07:15 >16255, [id number] Tammy 08/02/2024 08:34:45 AM > APPROVED Auth #[id number], Valid 08/03/2024 - 09/03/2024, auth scanned in, faxed to [facility], Annamarie Leon 08/02/2024 09:08:07 AM > Referral Priority Stat Reason PRIOR AUTH APPROVED [facility] [employer]....Please precert for custom fabricated orthoplastic dorsal [...] Referred Organization [facility] Referred Address [address],[place] ,[place],[address],[place] Procedure 1 Dorsal Blocking Spin t OTR (L3906) General Notes Celina Forrest 03/2024 12:07:20 PM >Shubham Jane Chelsea 08/16/2024 02:07:58 PM > PER [employer]AILITY PRIOR AUTH HAS BEEN APPROVED FROM 08/16/2024-11/16/2024 AUTH # [id number], AUTH IN CHART. Referral Priority Routine Social [...] level, initial encounter (S66.126A) Active confirmed Problem [id number] Laceration of flexor muscle, fascia and tendon of right little finger at wrist and hand level, subsequent encounter (S66.126D) Active confirmed Problem 391604590 Encounter for other orthopedic aftercare (Z47.89) Active confirmed Problem [id number] Laceration of flexor tendon of right hand, initial encounter (S66.821A) Active confirmed Vital Signs Height 5'9 in 08/16/2024 Weight 220 lbs 08/16/2024 BMI 32.48 08/16/2024 Encounters Encounter Location Date Provider Diagnosis [facility] [facility] [address] [place] [address] [place] [address] 07/31/2024 Mireille Alston Laceration of flexor tendon of right hand, initial encounter S66.821A [facility] [address] [place] [address] 08/02/2024 Julian Bunn Encounter for preprocedural laboratory examination Z01.812 and Laceration of flexor muscle, fascia and tendon of right little finger at wrist and hand level, initial encounter S66.126A [facility] Outpatient [address] [place] [phone] 08/03/2024 Julian Bunn Laceration of flexor muscle, fascia and tendon of right little finger at wrist and hand level, initial encounter S66.126A [facility] [address] [place] [address] 08/16/2024 Pedro Stippich Laceration of flexor muscle, fascia and tendon of right little finger at wrist and hand level, subsequent encounter S66.126D and Encounter for other orthopedic aftercare Z47.89 [place] [address] [place] [address] 08/16/2024 Celina Forrest Laceration of flexor muscle, fascia and tendon of right little finger at wrist and hand level, initial encounter S66.126A and Laceration of flexor tendon of right hand, initial encounter S66.821A [place] [address] [place] [address] 07/31/2024 Julian Bunn [place] [address] [place] [address] 08/04/2024 Julian Michaelrton [place] [address] [place] [address] 08/09/2024 Julian Oni [place] [address] [place] [address] 08/09/2024 Julian Michaelrton Assessments Encounter Date Diagnosis [...] Medicaid [employer] [place] [address] [address] [place] [address] [id number] WILLOW WILKES Self - patient is the [...]
--- OUTSIDE RECORDS SUMMARY | 2025-07-22 22:04 | XMS_ITS | Encounter Summary ---
Author Organization [employer] Sys tem Address [facility] [place]-[id number] [address] [place] [address] Care Team Providers Care Mica Laminating Machine Feeder Name Role Phone Blake Perez MD Primary Care Provider [phone] Encounter Details Date Type Department Care Team (Late st Contact Info) Description 09/10/2023 Orders Only [facility] [address] [place] [address] Umu Christy LPN Acute pain [...] often do you attend chur ch or pentecostal services? Never 2020 Do you belong to any clubs o r organizations such as moravian groups, unions, fraternal or athletic groups, or [...] Answer Date Recorded Total Score 0 08/04/2023 [facility] - Occupational Stress Questionnaire Answer Date [...] Do you need help finding a [facility] career center and/or a training [...] EDT Office Visit [facility] [place] [address] Blake Perez MD [address] [place] [address] documented as of this encounter Goals Goal [...] documented as of this encounter Care Teams Mica Laminating Machine Feeder Relationship Specialty Start Date End Date Blake Perez MD [address] [place] [address] PCP - General Internal Medicine 06/14/25 documented as of this encounter
--- OUTSIDE RECORDS SUMMARY | 2025-07-22 22:04 | XMS_ITS | Encounter Summary ---
Author Organization [facility] Address [id number] [address] [place] [address] Care Team Providers Care Lumber Handler Name Role Phone Blake Perez MD Primary Care Provider [phone] Encounter Details Date Type Department Care Team (Late st Contact Info) Description 04/02/2022 Telephone [facility] [address] [place] [address] Alicia Ponce DO [address] [place] [id number] Social History Tobacco Use Types Packs/Day Years [...] often do you attend chur ch or taoism services? Never 2020 Do you belong to any clubs o r organizations such as taoism groups, unions, fraternal or athletic groups, or [...] Answer Date Recorded Total Score 0 03/02/2022 [facility] of Occupat ional Health [...] Recorded Do you need help finding a [facility] career center and/or a training [...] EDT Office Visit [facility] [address] [place] [address] Blake Perez MD [address] [place] [address] documented as of this encounter Goals [...] documented as of this encounter Care Teams Lumber Handler Relationship Specialty Start Date End Date Blake Perez MD [facility] [place] [phone] PCP - General Internal Medicine 06/14/25 documented as of this encounter
--- OUTSIDE RECORDS SUMMARY | 2025-07-22 22:04 | XMS_ITS | Clinical Summary ---
Author Organization [facility] Address [address] [place] [address] Care Team Providers Care Barrel Filler Head Name Role Phone Sanjiv Morales MD Primary Care Provider [phone] Allergies No known active allergies Medications albuterol [...] [employer] [place] Care Teams Barrel Filler Head Relationship Specialty Start Date End Date Sanjiv Morales MD [address] [place] [address] PCP - General Family Medicine 01/31/25
--- OUTSIDE RECORDS SUMMARY | 2025-07-22 22:04 | XMS_ITS | Encounter Summary ---
Author Organization [employer] Sys tem Address [facility] [id number] [address] [place] [address] Care Team Providers Care Hose Handler Name Role Phone Blake Perez MD Primary Care Provider [phone] Encounter Details Date Type Department Care Team (Late st Contact Info) Description 05/24/2023 Telephone [facility] [address] [address] Josette Zacarias RN Social History [...] often do you attend chur ch or zoroastrianism services? Never 2020 Do you belong to any clubs o r organizations such as alevism groups, unions, fraternal or athletic groups, or [...] Answer Date Recorded Total Score 0 05/17/2023 [facility] [place] of Occupat ional Health - Occupational Stress [...] Recorded Do you need help finding a [employer] [facility] career center and/or a training program? [...] from the original note were not included. Medical Affairs Leader attempted to contact patient. No answer. Left message informing okay for patient to start Keflex prior to procedure tomorrow with SE. Left office phone number for any further questions/concerns. documented in this encounter Plan of Treatment Upcoming Encounters Date Type Department Care Team (Late st Contact Info) Description 06/18/2026 3:30 PM EDT Office Visit [facility] [address] [place] [phone] Blake Perez MD [address] [place] [phone] documented as of this encounter Goals Goal [...] documented as of this encounter Care Teams Hose Handler Relationship Specialty Start Date End Date Blake Perez MD [address] [place] [address] PCP - General Internal Medicine 06/14/25 documented as of this encounter
--- OUTSIDE RECORDS SUMMARY | 2025-07-22 22:04 | XMS_ITS | Encounter Summary ---
Author Organization [facility] Address [id number] [address] [place] [address] Care Team Providers Care Shopper Insights Manager Name Role Phone Blake Perez MD Primary Care Provider [phone] Encounter Details Date Type Department Care Team (Late st Contact Info) Description 10/09/2020 Orders Only [facility] [address] [place] [phone] External, Scanning Provider Social History Tobacco Use [...] Answer Date Recorded PHQ-2 Score 0 02/03/2019 [facility] [place] of Occupat ional Health - Occupational Stress [...] Recorded Do you need help finding a [facility] career center and/or a training program? [...] EDT Office Visit [facility] [address] [place] [address] Blake Perez MD [address] [place] [address] documented as of this encounter Goals [...] documented as of this encounter Care Teams Shopper Insights Manager Relationship Specialty Start Date End Date Blake Perez MD [facility] [place] [address] PCP - General Internal Medicine 06/14/25 documented as of this encounter
--- OUTSIDE RECORDS SUMMARY | 2025-07-22 22:04 | XMS_ITS | Encounter Summary ---
Author Organization [facility] Address [facility] [place] [place][id number] [address] [place] [address] Care Team Providers Care Ld Teacher Name Role Phone Blake Perez MD Primary Care Provider [phone] Encounter Details Date Type Department Care Team (Late st Contact Info) Description 07/26/2024 Orders Only [facility] [address] [place] [address] External, Scanning Provider Social History [...] often do you attend chur ch or latter day services? Never 2020 Do you belong to any clubs o r organizations such as roman catholic groups, unions, fraternal or athletic groups, or [...] Answer Date Recorded Total Score 0 06/05/2024 [facility] [place] of Occupat ional Health - Occupational Stress [...] Recorded Do you need help finding a [facility] career center and/or a training program? No [...] EDT Office Visit [facility] [address] [place] [address] Blake Perez MD [address] [place] [phone] documented as of this encounter Goals Goal [...] Computed Radiogr aphy Narrative 07/23/2024 Ordering Provider: [facility] us Scanning Provider External IMG DIAGNOSTIC IMAGIN G ORDERABLES Final Result documented in this encounter Visit Diagnoses Not on filedocumented in this encounter Additional Health Concerns Assessment Noted Time PHQ-9 Depression Total Score: 0 06/05/20 24 7:00 AM EDT documented as of this encounter Care Teams Ld Teacher Relationship Specialty Start Date End Date Blake Perez MD [address] [place] [address] PCP - General Internal Medicine 06/14/25 documented as of this encounter
--- OUTSIDE RECORDS SUMMARY | 2025-07-22 22:04 | XMS_ITS | Encounter Summary ---
Author Organization [facility] Address [facility]-[id number] [address] [place] [address] Care Team Providers Care Sleeve Fixer Name Role Phone Blake Perez MD Primary Care Provider [phone] Encounter Details Date Type Department Care Team (Latest Contact Info) Description 06/18/2025 Results Follow-Up [facility] [address] [place] [address] Blake Perez MD [address] [place] [address] Comprehensive metabolic panel, Lipid profile, CBC [...] any clubs o r organizations such as islam groups, unions, fraternal or athletic groups, or [...] Answer Date Recorded Total Score 0 06/14/2025 [facility] of Occupat ional Health - Occupational [...] EDT Office Visit [facility] [address] [place] [phone] Blake Perez MD [address] [place] [phone] documented as of this encounter Goals Goal [...] documented as of this encounter Care Teams Sleeve Fixer Relationship Specialty Start Date End Date Blake Perez MD [address] [place] [address] PCP - General Internal Medicine 06/14/25 documented as of this encounter
--- OUTSIDE RECORDS SUMMARY | 2025-07-22 22:04 | XMS_ITS | Encounter Summary ---
Author Organization [facility] Address [id number] [address] [place] [address] Care Team Providers Care Air Brush Decorator Name Role Phone Blake Perez MD Primary Care Provider [phone] Encounter Details Date Type Department Care Team (Late st Contact Info) Description 07/07/2022 Telephone [facility] [address] [address] Amairani Kent RN Social History [...] Answer Date Recorded Total Score 0 03/02/2022 [facility] [place] of Occupat ional Health - Occupational Stress [...] Recorded Do you need help finding a [facility] career center and/or a training program? [...] Office Visit [facility] [address] [place] [phone] Blake Perez MD [facility] [place], [place] [phone] documented as of this encounter Goals Goal [...] documented as of this encounter Care Teams Air Brush Decorator Relationship Specialty Start Date End Date Blake Perez MD [address] [place] [address] PCP - General Internal Medicine 06/14/25 documented as of this encounter
--- OUTSIDE RECORDS SUMMARY | 2025-07-22 22:04 | XMS_ITS | Encounter Summary ---
Author Organization [employer] Sys tem Address [facility] [place][id number] [address] [place] [address] Care Team Providers Care Growth Media Mixer Mushroom Name Role Phone Blake Perez MD Primary Care Provider [phone] Encounter Details Date Type Department Care Team (Late st Contact Info) Description 06/24/2020 Telephone [facility] [address] [place] [address] Sanjiv Nieves MD [address] [place]. Provider retired 01/09/25 [place], [place] [phone] Social History Tobacco Use Types Packs/Day Years [...] any clubs o r organizations such as jehovah's witness groups, unions, fraternal or athletic groups, or [...] Answer Date Recorded PHQ-2 Score 0 02/03/2019 [facility] of Occupat ional Health - Occupational [...] Hypoxemia, Asthma Exacerbation *Name of Discharging Facility: [facility] Date of Facility Discharge: 06/21/20 Date of Interactive Contact and Name of Stock Selector: 06/24/20 Nilo garza *Medication Review Completed: Pending [...] EDT Office Visit [facility] [address] [place] [address] Blake Perez MD [address] [place] [address] documented as of this encounter Goals Goal Patient Goal Type Associated Problems Recent Progress Patient-Stated? Author Home General Yes aMria De Jesus Soto LSW Note: Evaluation of [...] documented as of this encounter Care Teams Growth Media Mixer Mushroom Relationship Specialty Start Date End Date Blake Perez MD [address] [place] [address] PCP - General Internal Medicine 06/14/25 documented as of this encounter
--- OUTSIDE RECORDS SUMMARY | 2025-07-22 22:04 | XMS_ITS | Encounter Summary ---
Author Organization [employer] Sys tem Address [id number] [address] [place] [address] Care Team Providers Care Spool Carrier Name Role Phone Blake Perez MD Primary Care Provider [phone] Encounter Details Date Type Department Care Team (Late st Contact Info) Description 05/27/2023 Telephone [facility] [address] [address] Josette Zacarias RN Social History [...] often do you attend chur ch or zoroastrian services? Never 2020 Do you belong to any clubs o r organizations such as advent groups, unions, fraternal or athletic groups, or [...] Answer Date Recorded Total Score 0 05/17/2023 [facility] of Occupat ional Health - [...] Recorded Do you need help finding a [employer] career center and/or a training program? No [...] Zacarias RN - 05/27/2023 8:31 AM EDT Easter Bunny attempted to contact patient. No answer. Left [...] - 05/27/2023 8:31 AM EDT SECOND ATTEMPT Easter Bunny spoke to patient and informed per Dr Ponce, no cancer cells seen. Still waiting on culture data. Once received and reviewed by SE, will contact patient. patient agreeable documented in this encounter Plan of Treatment Upcoming Encounters Date Type Department Care Team (Late st Contact Info) Description 06/18/2026 3:30 PM EDT Office Visit [facility] [address] [place] [address] Blake Perez MD [address] [place] [address] documented as of this encounter Goals [...] documented as of this encounter Care Teams Spool Carrier Relationship Specialty Start Date End Date Blake Perez MD [address] [place] [address] PCP - General Internal Medicine 06/14/25 documented as of this encounter
--- OUTSIDE RECORDS SUMMARY | 2025-07-22 22:04 | XMS_ITS | Encounter Summary ---
Author Organization [facility] [employer] Sys tem Address [facility] [id number] [address] [place] [address] Care Team Providers Care Photographic Platemaker Name Role Phone Blake Perez MD Primary Care Provider [phone] Reason for Visit * Reason Onset Date Comments Med Refill 12/26/2020 Encounter Details Date Type Department Care Team (Late st Contact Info) Description 12/26/2020 Refill [facility] [address] [place] [phone] Umu Christy LPN Social History Tobacco Use [...] often do you attend chur ch or scientology services? Never 2020 Do you belong to any clubs o r organizations such as samaritan groups, unions, fraternal or athletic groups, or [...] Answer Date Recorded Total Score 0 10/24/2020 [facility] of Occupat ional [facility] - Occupational Stress Questionnaire Answer Date [...] Recorded Do you need help finding a [facility] career center and/or a training program? [...] EDT Office Visit [facility] [address] [place] [phone] Blake Perez MD [address] [place] [address] documented as of this encounter Goals [...] documented as of this encounter Care Teams Photographic Platemaker Relationship Specialty Start Date End Date Blake Perez MD [address] [place] [address] PCP - General Internal Medicine 06/14/25 documented as of this encounter
--- OUTSIDE RECORDS SUMMARY | 2025-07-22 22:04 | XMS_ITS | Encounter Summary ---
Author Organization [employer] Sys tem Address [facility][id number] [address] [place] [address] Care Team Providers Care Network Communications Engineer Name Role Phone Blake Perez MD Primary Care Provider [phone] Reason for Referral * Consultation (Routine) - Closed Specialty Diagnoses / Procedures Referred By Sydnie redman Referred To Contact Pulmonary Disease / Pulmonary Medicine Diagnoses Pneumonia of left upper lobe due to infectious organism Sanjiv Morales MD Phone: tel: fax: Alicia Ponce DO [address] [place] [address] Phone: tel: fax: Referral ID Status Reason Start Date Expiration Date V isits Requested Visits Authorized [id number] Closed Specialty Services Required 03/18/2022 03/18/2023 1 1 Encounter Details Date Type Department Care Team (Late st Contact Info) Description 03/18/2022 Orders Only [facility] [address] [place] [phone] Sanjiv Morales MD [address]. Provider retired 01/09/25 [place] [address] Pneumonia of left upper lobe [...] often do you attend chur ch or jew services? Never 2020 Do you belong to [...] Answer Date Recorded Total Score 0 03/02/2022 [facility] [place] of Occupat ional Health - Occupational Stress [...] EDT Office Visit [facility] [address] [place] [address] Blake Perez MD [address] [place] [address] Scheduled Referrals Name Type Priority Associated [...] / using tobacco Lifestyle No Maria De Jeuss Soto LSW Note: Evaluation of progress towards [...] documented as of this encounter Care Teams Network Communications Engineer Relationship Specialty Start Date End Date Blake Perez MD [address] [place] [address] PCP - General Internal Medicine 06/14/25 documented as of this encounter
--- OUTSIDE RECORDS SUMMARY | 2025-07-22 22:04 | XMS_ITS | Clinical Summary ---
Author Organization Muxlim tem Address [id number] [address] [place] [address] Care Team Providers Care Criminal Investigative Agent Name Role Phone Blake Perez MD Primary Care Provider [phone] Allergies No known active allergies Medications albuterol [...] Department Care Team Description 06/18/2025 Results [facility] [address] [place] [address] [place] [address] Blake Perez MD Comprehensive metabolic panel, Lipid profile, CBC auto differential, Additional followed-up results: 2 06/18/2025 Orders Only [facility] [address] [place], [place] [address] [address] Blake Perez MD Testosterone deficiency in male (Primary Dx) 06/16/2025 Travel 06/14/2025 3:00 PM EDT Office Visit [address] [address] Blake Perez MD Encounter for general health [...] often do you attend chur ch or taoist services? Never 2020 Do you belong to any clubs o r organizations such as denominational groups, unions, fraternal or athletic groups, or [...] Answer Date Recorded Total Score 0 06/14/2025 [facility] [place] of Occupat ional Health - Occupational Stress [...] Recorded Do you need help finding a [facility] career center and/or a [...] Office Visit [facility] [address] [place] [phone] Blake Perez MD [address] [place] [id number] Health Maintenance Due Date Last Done [...] - 1.60 ng/dL 06/16/2025 4:01 PM EDT [facility] TSH 1.91 0.49 - 4.67 uIU/mL 06/16/2025 4:01 PM EDT [facility] Blood Venous blood / Unknown Venipuncture / Unknown 06/16/2025 10:14 AM EDT 06/16/2025 10:14 AM EDT us Blake Perez MD LAB BLOOD ORDERABLES Final Res ult [facility] [address] [place] [address], [place] [phone] * CBC auto differential (06/16/2025 10:14 AM EDT) WBC 6.4 4 - 11 x10E9/L 06/16/2025 3:36 PM EDT [facility] RBC Count 5.18 4.1 - 5.7 X10E12/L 06/16/2025 3:36 PM EDT [facility] Hemoglobin 15.6 13 - 17 g/dL 06/16/2025 3:36 PM EDT [facility] Hematocrit 46.3 39 - 50 % 06/16/2025 3:36 PM EDT [facility] MCV 89 80 - 100 fL 06/16/2025 3:36 PM EDT [facility] MCH 30.1 27 - 34 pg 06/16/2025 3:36 PM EDT [facility] MCHC 33.7 32 - 36 g/dL 06/16/2025 3:36 PM EDT [facility] RDW 13.2 11.5 - 15 % 06/16/2025 3:36 PM EDT [facility] Platelet Count 267 150 - 450 X10E9/L 06/16/2025 3:36 PM EDT [facility] MPV 8.4 7 - 12 fL 06/16/2025 3:36 PM EDT [facility] Neutrophils % 60.3 % 06/16/2025 3:36 PM EDT [facility] Lymphocytes % 24.5 % 06/16/2025 3:36 PM EDT [facility] Monocytes % 9.0 % 06/16/2025 3:36 PM EDT [facility] Eosinophils % 5.6 % 06/16/2025 3:36 PM EDT [facility] Basophils % 0.6 % 06/16/2025 3:36 PM EDT [facility] Neutrophils Absolute (A) 3.9 1.5 - 6.6 10*3/uL 06/16/2025 3:36 PM EDT [facility] Lymphocytes Absolute 1.6 1.0 - 3.5 10*3/uL 06/16/2025 3:36 PM EDT [facility] Monocytes Absolute 0.6 0.0 - 0.9 10*3/uL 06/16/2025 3:36 PM EDT [facility] Eosinophils Absolute 0.4 0.0 - 0.4 10*3/uL 06/16/2025 3:36 PM EDT [facility] Basophils Absolute 0.0 0.0 - 0.2 10*3/uL 06/16/2025 3:36 PM EDT [facility] Differential Type AUTOMATED DIFFERENTIAL 06/16/2025 3:36 PM EDT [facility] Blood Venous blood / Unknown Venipuncture / Unknown 06/16/2025 10:14 AM EDT 06/16/2025 10:14 AM EDT Blake Perez MD LAB BLOOD ORDERABLES Final Res ult [facility] [address] [place] [address], * Testosterone (06/16/2025 10:14 AM EDT) TESTOSTERONE 2.25 1.68 - 7.46 ng/mL 06/16/2025 3:47 PM EDT [facility] Blood Venous blood / Unknown Venipuncture / Unknown 06/16/2025 10:14 AM EDT 06/16/2025 10:14 AM EDT Blake Perez MD LAB BLOOD ORDERABLES Final Res ult Performing Organization Address City/[facility]/ZIP Co de Phone Number [facility] [address] [place] [address], * Lipid profile (06/16/2025 10:14 AM EDT) CHOLESTEROL 188 150 - 200 mg/dL 06/16/2025 3:48 PM EDT [facility] TRIGLYCERIDE 130 27 - 150 mg/dL 06/16/2025 3:48 PM EDT [facility] HDL CHOLESTEROL 43 >39 mg/dL 3:48 PM EDT [facility] Comment: HDL <40 mg/dL - High Risk HDL > or = 40mg/dL- Desirable HDL >60 mg/dL - Negative Risk LDL (CALC) 119 <130 mg/dL 06/16/2025 3:48 PM EDT [facility] Comment: LDL <100 mg/dL - Desirable LDL >160 mg/dL - High Risk CHOLESTEROL:HDL 4.4 1.0 - 5.0 3:48 PM EDT [facility] VERY LOW LIPOPROTEIN 26 0 - 30 mg/dL 06/16/2025 3:48 PM EDT [facility] Blood Venous blood / Unknown Venipuncture / Unknown 06/16/2025 10:14 AM EDT 06/16/2025 10:14 AM EDT Blake Perez MD LAB BLOOD ORDERABLES Final Res ult [facility] [address] [place] [address], * Comprehensive metabolic panel (06/16/2025 10:14 AM EDT) SODIUM 138 134 - 146 mmol/L 06/16/2025 3:48 PM EDT [facility] POTASSIUM 4.2 3.5 - 5.0 mmol/L 06/16/2025 3:48 PM EDT [facility] CHLORIDE 101 98 - 109 mmol/L 06/16/2025 3:48 PM EDT [facility] CARBON DIOXIDE 29 22 - 32 mmol/L 06/16/2025 3:48 PM EDT [facility] ANION GAP 8 5 - 15 mmol/L 06/16/2025 3:48 PM T [facility] BLOOD UREA NITROGEN 16 5 - 23 mg/dL 06/16/2025 3:48 PM T [facility] CREATININE 0.77 0.60 - 1.30 mg/dL 06/16/2025 3:48 PM EDT [facility] Comment:METHOD TRACEABLE TO IDWY STANDARD GLUCOSE 86 65 - 99 mg/dL 06/16/2025 3:48 PM T [facility] CALCIUM 10.0 8.5 - 10.5 mg/dL 06/16/2025 3:48 PM T [facility] TOTAL PROTEIN 8.0 6.0 - 8.0 g/dL 06/16/2025 3:48 PM T [facility] ALBUMIN 4.9 3.2 - 5.3 g/dL 06/16/2025 3:48 PM T [facility] ALKALINE PHOSPHATASE 56 39 - 130 U/L 06/16/2025 3:48 PM T [facility] AST 20 <=41 U/L 06/16/2025 3:48 PM T [facility] ALT 24 <=40 U/L 06/16/2025 3:48 PM T [facility] BILIRUBIN,TOTAL 0.8 0.3 - 1.2 mg/dL 06/16/2025 3:48 PM T [facility] EGFR Non-Race Dependent >90 >=60 ml/min/1.7 3sq.m 06/16/2025 3:48 PM T [facility] Comment: Reported eGFR is based on the CKD-EPI 2020 equation that does not use a race coefficient. Blood Venous blood / Unknown Venipuncture / Unknown 06/16/2025 10:14 AM EDT 06/16/2025 10:14 AM EDT us Blake Perez MD LAB BLOOD ORDERABLES Final Res ult [facility] [address] [place] [address], [place] [phone] from Last 3 Months Insurance [employer] Advance Directives * Full Code (Latest Code Status on File) Date Activated Date Inactivated Comments 07/07/2021 11:17 AM 07/08/2021 4:10 PM * Full Code Date Activated Date Inactivated Comments 2020 9:42 AM 06/21/2020 12:56 PM Care Teams Criminal Investigative Agent Relationship Specialty Start Date End Date Blake Perez MD [address] [place] [id number] PCP - General Internal Medicine 06/14/25
--- OUTSIDE RECORDS SUMMARY | 2025-07-22 22:04 | XMS_ITS | Clinical Summary ---
Author Organization [facility] Address [address], [address] [place] [address] Care Team Providers Care Technical Designer Name Role Phone Unavailable Primary Care Provider [...]
--- NOTE | 2025-07-22 22:07 | ECG_ITS ---
[facility] Test Date: 2025-07-22 Pat Name: WILLOW WILKES Department: Room: - Gender: Male Financial Wellness Coach: : 1990 Requested By: [id number] Order Number: [id number] Reading MD: PATY MITTAL M.D. Measurements Intervals Blair Rate: 121 P: 56 MD: 142 QRS: 47 QRSD: 116 T: 54 QT: 330 QTc: 402 Interpretive Statements 1120 Sinus tachycardia 2320 Nonspecific intraventricular conduction delay 9140 abnormal rhythm ECG Compared to ECG 04/05/2020 20:31:47 Intraventricular conduction delay now present QT has shortened Electronically Signed On 07-23-2025 6:09:14 EDT by PATY MITTAL M.D.
--- NOTE | 2025-07-22 22:11 | ED_ITS ---
HPI HPI - General Adult General Chief complaint: Skin/Abscess/Foreign Body Stated complaint: HE IS RED/ ON FIRE BUT IS COLD Time Seen by Provider: 07/22/25 22:01 Source: patient Mode of arrival: walk-in Limitations: no limitations History of Present Illness HPI narrative: This 35-year-old male presents for evaluation of red skin on his face, back, arms chest and abdomen. It spares his lower extremities. He states his symptoms started this evening. He denies any change in his soaps, detergents, diet or medications. He did start using testosterone injections 3 weeks ago. He gave himself an injection yesterday. He was seen here yesterday for asthma symptoms and given inhalers. He denies any chest pain or shortness of breath at this time. He states he had [place] toast and chicken Parmesan for dinner and chips earlier in the day. He was outside earlier in the day but was wearing a shirt. He has no abdominal pain. Related Data Home Medications ?Medication ?Instructions ?Recorded ?Confirmed albuterol sulfate 90 mcg/actuation 2 puff inhalation Q 6H PRN 07/22/25 07/22/25 aerosol inhaler shortness of breath or wheez ing Allergies Allergy/AdvReac Type Severity Reaction Status Date / Time No Known Drug Allergies Allergy Verified 07/22/25 22:01 Opioid HPI Opioid Management Most Recent Opioid Data: Last Pain Scale 0 09/12/24, 06:04 Last ORT Total Score 2 09/09/24, 02:23 Last ORT Risk Category Low Risk 09/09/24, 02:23 Review of Systems ROS Status of ROS 10 or more systems reviewed and unremark able except as noted in history and below [facility] Medical History (Updated 07/23/25 @ 01:22 by Aixa Escobar MD) Right upper lobe pneumonia ?J18.9 - Pneumonia, unspecified organism (ICD-10) Leukocytosis ?D72.829 - Elevated white blood cell count, unspecified (ICD-10) Obesity (BMI 30.0-34.9) ?E66.811 - Obesity, class 1 (ICD-10) Vaping nicotine dependence, tobacco product ?F17.290 - Nicotine dependence, other tobacco product, uncomplicated (ICD-10) Mucus plugging of bronchi ?T17.500A - Unspecified foreign body in bronchus causing asphyxiation, initial encounter (ICD-10) Centrilobular emphysema ?J43.2 - Centrilobular emphysema (ICD-10) Peripheral eosinophilia ?D72.19 - Other eosinophilia (ICD-10) Viral pneumonia, unspecified ?J12.9 - Viral pneumonia, unspecified (ICD-10) Severe persistent asthma with acute exacerbation ?J45.51 - Severe persistent asthma with (acute) exacerbation (ICD-10) SOB (shortness of breath) ?R06.02 - Shortness of breath (ICD-10) Respiratory distress determined by examination ?R06.03 - Acute respiratory distress (ICD-10) Severe asthma with exacerbation ?J45.901 - Unspecified asthma with (acute) exacerbation (ICD-10) Asthma with acute exacerbation ?J45.901 - Unspecified asthma with (acute) exacerbation (ICD-10) Severe persistent asthma, uncomplicated ?J45.50 - Severe persistent asthma, uncomplicated (ICD-10) Depression ?F32.A - Depression, unspecified (ICD-10) Social History (Updated 09/09/24 @ 03:27 by Veronica Rodriguez RN) Within the past year, how often did you have a drink containing alcohol: 2-4 times a month Within the past year, how many standard drinks containing alcohol did you have on a typical day: 1 or 2 Within the past year, how often did you have six or more drinks on one occasion: less than monthly Total score: 1 Score interpretation: A score less than 4 is consistent with normal alcohol consumption. Smoking status: Heavy tobacco smoker Do you use any of these nicotine containing products: vaping products Second hand tobacco smoke exposure: Yes Non-prescribed substance use: denies use Highest level of school completed/degree received: high school graduate Do you want help with school or training: No Are you now , , , , never or living with a partner: In a typical week, how many times do you talk on the telephone with family, friends, or neighbors: 3 or more times per week Little interest or pleasure in doing things: not at all Feeling down, depressed, or hopeless: not at all Exam Narrative Exam Narrative: Vital signs and Nursing Notes reviewed: Is afebrile, he is tachycardic with a pulse of 130, blood pressure is minimally elevated at 134/73, he is not hypoxic with pulse ox of 98% on room air General: Awake, alert, oriented, no acute distress, lying comfortably on the stretcher HEENT: Normocephalic atraumatic, mucous membranes are moist and pink, eyes are clear, normal conjunctiva, vision is grossly intact, posterior pharynx is normal in appearance. No swelling of the tongue, uvula or pharyngeal soft tissues, no pooling of secretions, voice is clear Neck: Supple, no meningeal signs, no anterior or posterior cervical lymph adenopathy Chest: Lungs are clear to auscultation with good air entry, there is no wheezing rhonchi or rales appreciated no accessory muscle use, patient is speaking in complete sentences-no chest wall tenderness to palpation CVS: Regular rate and rhythm S1-S2, tachycardic in the 120s to 130s no murmurs rubs or gallops, pulses are brisk and equal bilaterally ABD: Soft, nondistended, nontender, no rebound guarding or rigidity, bowel sounds are normal, no pulsatile masses appreciated Extremities: Moving all extremities, no lower extremity tenderness or swelling noted, negative Homans' sign, pulses are brisk and equal bilaterally Skin: Skin on the patient's face, neck, upper extremities back and chest/abdomen are markedly flushed. There is no petechia or purpura noted. No sign of any skin breakdown or active infection noted. Neuro: No focal deficits Constitutional Vital Signs, click to edit/add: Last Vital Signs Temp 98.6 F 07/22/25 22:01 Pulse 96 H 07/23/25 00:20 Resp 18 07/23/25 00:20 BP 121/71 07/23/25 00:01 Pulse Ox 96 07/23/25 00:20 O2 Del Method Room Air 07/22/25 23:06 Course Vital Signs Vital signs: Vital Signs Temperature 98.6 F 07/22/25 22:01 Pulse Rate 130 H 07/22/25 22:01 Respiratory Rate 16 07/22/25 22:01 Blood Pressure 134/73 07/22/25 22:01 Pulse Oximetry 98 07/22/25 22:01 Oxygen Delivery Method Room Air 07/22/25 22:01 Temperature 98.6 F 07/22/25 22:01 Pulse Rate 96 H 07/23/25 00:20 Respiratory Rate 18 07/23/25 00:20 Blood Pressure 121/71 10/13/25 00:01 Pulse Oximetry 96 07/23/25 00:20 Oxygen Delivery Method Room Air 07/22/25 23:06 Medical Decision Making MDM Narrative Medical decision making narrative: This 35-year-old male with a history of asthma who was seen here yesterday for an asthma exacerbation due to being out of his inhalers and he was also taking testosterone injections from an online source presents for evaluation of acute erythema of his skin on his head, face, neck, upper extremities chest and back but not his lower extremities. He does not have any swelling of his tongue, uvula or posterior pharynx. He is not having any drooling or trismus. The symptoms started prior to arrival-no medications were taken prior to arrival. He denies any change in his detergents, healthcare items or food. He is not itching but states his skin is burning. He was outside at a softball game for his son earlier today but states he was wearing a T-shirt. This does not appear like a sunburn, his skin is flushed and warm with normal capillary refill. There is no sign of any infestation. He was tachycardic upon arrival with a pulse in the 130s. An IV was placed and he was medicated with IV fluids, Solu- Medrol, Benadryl and Pepcid. His white count is elevated at 17. Absolute neutrophil count is elevated. He has a stable hemoglobin of 13.9. Glucose is mildly elevated at 139, lactic acid is normal. Electrolytes are normal. D-dimer is elevated at 2.17. CT angio of the chest was ordered. He was empirically given IV Rocephin due to the elevated white count and the fact that he is injecting himself with testosterone. I did look at his injection site in his left thigh where there is some mild bruising but otherwise it looks normal. There is no lower extremity swelling or concern for DVT. His legs were not involved in the erythema. On reevaluation his skin is returning to a normal color. I reevaluated his airway and there is still no swelling of the tongue, uvula or pharyngeal soft tissues. His voice is clear and not muffled. CT scan of the chest shows mucous plugging within the left upper lobe with trace pleural fluid and no pulmonary embolism. The results of the CT scan and labs were discussed with the patient. I still do not know exactly what caused his symptoms however it may be related to the [place] injection of testosterone that he ordered online. He will be discharged home with a prescription for Keflex if this is indeed a staph infection reaction and prednisone to use until the testosterone is out of his system. I did suggest that he discuss continuation of the testosterone injections with his family physician before he proceeds with taking them. He is otherwise stable for discharge. His pulse was come down into the 90s. His blood pressure has remained stable. There has been no extension of his symptoms into his airway or mouth. At the time of discharge his color is now normal. Medical Records Medical records reviewed: Yes I reviewed the patient's medical records Lab Data Lab results reviewed: Yes I reviewed the patient's lab results Labs: Lab Results 07/22/25 Range/Units 22:23 WBC 17.0 H (4.0-11.0) 10^3/uL RBC 4.61 L (4.70-6.10) 10^6/uL Hgb 13.9 L (14.0-18.0) g/dL Hct 40.5 L (42.0-54.0) % MCV 87.9 (80.0-94.0) fL MCH 30.2 (25.9-34.0) pg MCHC 34.3 (29.9-35.2) g/dL RDW 12.9 (11.0-15.0) % Plt Count 327 (150-450) 10^3/uL MPV 9.7 (9.5-13.5) fL Seg Neuts % (Manual) 73.0 (43.0-75.0) Lymphocytes % (Manual) 14.0 L (20.5-60.0) % Atypical Lymphs % (Man) 2.0 % Monocytes % (Manual) 11.0 (1.7-12.0) % Eosinophils % (Manual) 0.0 L (0.9-7.0) % Basophils % (Manual) 0.0 L (0.2-2.0) % Neutrophils # (Manual) 12.41 H (1.4-6.5) 10^3/uL Lymphocytes # (Manual) 2.38 (1.20-3.80) 10^3/uL Abs Atypical Lymphs Man 0.34 Monocytes # (Manual) 1.87 H (0.30-0.80) 10^3/uL Eosinophils # (Manual) 0.00 (0.00-0.70) 10^3/uL Basophils # (Manual) 0.00 (0.00-0.10) 10^3/uL D-Dimer 2.16 H* (<=0.59) mg/L FEU Sodium 139 (136-145) mmol/L Potassium 3.2 L (3.5-5.1) mmol/L Chloride 103 (98-107) mmol/L Carbon Dioxide 25.3 (21.0-32.0) mmol/L Anion Gap 13.9 BUN 13.0 (7.0-18.0) mg/dL Creatinine 1.03 (0.70-1.30) mg/dL Est GFR ( Amer) >60 (>=60 mL/min/1.73m^2) Est GFR (Non-Af Amer) >60 (>=60 mL/min/1.73m^2) BUN/Creatinine Ratio 12.6 Glucose 139 H (74-106) mg/dL Lactate 1.0 (0.4-2.0) mmol/L Calcium 9.1 (8.5-10.1) mg/dL Total Bilirubin 0.3 (0.2-1.0) mg/dL AST 19 (15-37) U/L ALT 31 (16-63) U/L Alkaline Phosphatase 61 (46-116) U/L Troponin I High Sens 8.1 (4.0-76.1) pg/mL Total Protein 7.5 (6.4-8.2) g/dL Albumin 3.8 (3.4-5.0) g/dL Globulin 3.7 g/dL Albumin/Globulin Ratio 1.0 Ethanol Quant <3 mg/dL ECG Data Attestation: I personally reviewed and interpreted this ECG as follows: (Sinus tachycardia at 121 bpm, normal axis, nonspecific ST changes, no acute ST segment elevation or T wave inversion) Discharge Plan Discharge Chief Complaint: Skin/Abscess/Foreign Body Clinical Impression: Allergic reaction Patient Disposition: Home, Self-Care Time of Disposition Decision: 01:22 Condition: Good Prescriptions / Home Meds: No Action albuterol sulfate 90 mcg/actuation HFA aerosol inhaler 2 puff INHALATION Q6H PRN (Reason: shortness of breath or wheezing) Print Language: Mauritian Instructions: General Allergic Reaction (ED) Additional Instructions: Use the antibiotics as directed and steroids as directed until gone. Return to the emergency department for worsening symptoms or any swelling of your tongue, lips or face. I would strongly suggest that you withhold taking additional doses of the testosterone injection until you speak with your family physician. Referrals: Physician,Non-Staff, MD [Primary Care Provider] - 1 week
--- NOTE | 2025-07-22 22:12 | PC.NURSE ---
REDNESS AND FLUSHED FEELING TO TRUNK, FACE, AND BUE
[2025-07-22] MEDS: 0.9 % SODIUM CHLORIDE 1,000 ML 1000 ML IV (22:29)
[2025-07-22] MEDS: DIPHENHYDRAMINE HCL 50 MG/ML VIAL 25 MG IVP (22:29)
[2025-07-22] MEDS: METHYLPREDNISOLONE SOD SUCC PF 125 MG/2 ML VIAL IVP (22:29)
[2025-07-22] MEDS: FAMOTIDINE/PF 20 MG/2 ML VIAL IV (22:29)
[2025-07-22 22:34] LABS: Hematocrit 40.5 % (42.0-54.0); Hemoglobin 13.9 g/dL (14.0-18.0); Mean Corpuscular HGB Conc 34.3 g/dL (29.9-35.2); Mean Corpuscular Hemoglobin 30.2 pg (25.9-34.0); Mean Corpuscular Volume 87.9 fL (80.0-94.0); Platelet Count 327 10^3/uL (150-450); Red Blood Count 4.61 10^6/uL (4.70-6.10); White Blood Count 17.0 10^3/uL (4.0-11.0)
[2025-07-22 22:53] LABS: Alanine Aminotransferase 31 U/L (16-63); Albumin Globulin Ratio 1.0; Albumin Level 3.8 g/dL (3.4-5.0); Alkaline Phosphatase 61 U/L (46-116); Anion Gap 13.9; Aspartate Amino Transferase 19 U/L (15-37); Blood Urea Nitrogen 13.0 mg/dL (7.0-18.0); Calcium 9.1 mg/dL (8.5-10.1); Carbon Dioxide 25.3 mmol/L (21.0-32.0); Chloride 103 mmol/L (98-107); Estimated GFR (African America >60 (>=60 mL/min/1.73m^2); Estimated GFR (Non-African Ame >60 (>=60 mL/min/1.73m^2); Globulin 3.7 g/dL; Glucose 139 mg/dL (74-106); Lactate/Lactic Acid 1.0 mmol/L (0.4-2.0); Potassium 3.2 mmol/L (3.5-5.1); Sodium 139 mmol/L (136-145); Total Protein 7.5 g/dL (6.4-8.2)
[2025-07-22 22:54] LABS: Atypical Lymphocytes % Manual 2.0 %; Atypical Lymphocytes Abs Man 0.34; Basophils Abs Manual 0.00 10^3/uL (0.00-0.10); Basophils Percent Manual 0.0 % (0.2-2.0); Eosinophils Absolute Manual 0.00 10^3/uL (0.00-0.70); Eosinophils Percent Manual 0.0 % (0.9-7.0); Lymphocytes Absolute Manual 2.38 10^3/uL (1.20-3.80); Lymphocytes Percent Manual 14.0 % (20.5-60.0); Monocytes Absolute Manual 1.87 10^3/uL (0.30-0.80); Monocytes Percent Manual 11.0 % (1.7-12.0); Segmented Neut Absolute Manual 12.41 10^3/uL (1.4-6.5); Segmented Neutrophils % Manual 73.0 (43.0-75.0)
[2025-07-23] VITALS (12 sets, daily range): BP systolic 108–121; BP diastolic 62–71; PULSE 96–110; O2SAT 89–98
== END 2025-07-23 01:31 | disposition home or self-care (01) ==
PROVIDERS: Emergency Provider Emergency Medicine
DX: T78.40XA Allergy, unspecified, initial encounter (principal); J45.909 Unspecified asthma, uncomplicated; F17.290 Nicotine dependence, other tobacco product, uncomplicated
CPT/HCPCS: 36415; 71275; 80053; 80320; 83605; 84484; 85007; 85027; 85378; 93005; 96365; 96375; 99285; J0696; J1200; J2919; J3490; Q9967